=== PATIENT | female | born 1990 | race Caucasian/White ===

== ENCOUNTER 2021-03-29 16:45 | Emergency (ER) | payer OTHER ==
--- OUTSIDE RECORDS SUMMARY | 2021-03-29 16:50 | XMS REPORT | Continuity of Care Document ---
:[address] [facility] t Address [address] [place] [address] Care Team Providers Name Role Phone Peguero Attending Clinician Unavailable Physician, Primary or Family Admitting Clinician Unavailabl e Payers Payer Name Policy Type Policy Number Effective Date Expiration Date S ource Problems This patient has no known problems. Allergies, Adverse Reactions, Alerts Allergy Allergy Status Severity Reaction(s) Onset Inactive Treating Comm ents Source Name Type Date Date Clinician No Known DA Active U [facility]- [facility] No Known DA Active U [facility] - [facility] No Known DA Active [facility] 5[facility]16 [facility] scopolam DA Active MT 0 [facility] ine 4-10 [facility] scopolam DA Active MT RASH-HIVES [facility] ine 4-10 [facility] No Known DA Active U 2020-0 [facility] Allergie 6-20 [facility] No Known DA Active U [facility] 6[facility]20 [facility] No Known DA Active [facility] -15 [facility] No Known DA Active U NONE [facility] 10-24 [facility] Medications This patient has no known medications. Procedures This patient has no known procedures. Encounters Start End Encounter Admission Attending Care Care Encounter Source Date/Time Date/Time Type Type Clinicians Facility Department ID 2020-06-24 Inpatient [facility] ER [id number] [facility] 15:27:00 [id number] [facility] 2020-05-19 Inpatient [facility] ER [id number] [facility] 11:27:00 [id number] [facility] 2019-07-30 Inpatient [facility] [id number] [facility] 21:08:00 [id number] [facility] 2021-02-09 2021-02-10 Emergency EM Peguero, [facility] ER [id number] [facility] 23:10:00 00:19:00 Kaelyn [id number] [facility] 2021-02-09 2021-02-09 Emergency EM Peguero, HCARG HC[facility] [id number] [facility] 23:10:00 23:10:00 Kaelyn 49 [facility] Results Test Description Test Time Test Comments Results Result Comments Source COMPREHENSIVE METABOLIC PANEL 2020-06-24 16:11:00 Test Item Value Reference Range Interpretation Comme nts SODIUM (test code = NA) 138 mmol/L 136-145 N POTASSIUM (test code = K) 3.7 mmol/L 3.5-5.1 N CHLORIDE (test code = CL) 100 mmol/L 98-107 N CARBON DIOXIDE (test code = 27 mmol/L 21-32 N CO2) GLUCOSE (test code = GLU) 69 mg/dL 70-100 L BLOOD UREA NITROGEN (test code 9 mg/dL 7-18 N = BUN) GLOMERULAR FILTRATION RATE > 60.00 See_Comment R eporting units: (test code = GFR) mL/min/1.7 3m\S\2 (Modified MDRD formula)RE FERENCE RANGE: > or = 60 ml/mi n/1.73M2IF PATIENT IS AFRI CAN-MAURITIAN, MULTIPLY REPORT ED RESULT BY1.21. [Automa ashley message] The system [employer] generated this result tra nsmitted reference range : >=60. The reference range was not used to interpret th is result as normal/abnormal . CREATININE (test code = CREAT) 0.76 mg/dl 0.55-1.02 N TOTAL PROTEIN (test code = 7.8 g/dl 6.4-8.2 N PROT) ALBUMIN (test code = ALB) 3.7 g/dl 3.4-5.0 N CALCIUM (test code = CA) 9.3 mg/dL 8.5-10.1 N BILIRUBIN TOTAL (test code = 0.8 mg/dL 0.2-1.0 N BILT) SGOT/AST (test code = AST) 38 U/L 15-37 H SGPT/ALT (test code = ALT) 54 U/L 12-78 N ALKALINE PHOSPHATASE TOTAL 139 U/L 45-117 H (test code = ALKP) [id number] 16:11:00 Test Item Value Reference Range Interpretation Comments LIPASE (test code = LIP) 108 U/L 73-393 N URINALYSIS W REFLEX [id number] 16:05:00 Test Item Value Reference Range Interpretation Comments UA COLOR (test code = COLU) YELLOW YELLOW UA APPEARANCE (test code = CLEAR CLEAR APPU) UA GLUCOSE DIPSTICK (test code NEGATIVE mg/dl NORMAL = DGLUU) UA BILIRUBIN DIPSTICK (test NEGATIVE mg/dl NEGATIVE code = BILU) UA KETONE DIPSTICK (test code NEGATIVE mg/dl NEGATIVE = KETU) UA SPECIFIC GRAVITY (test code 1.020 1.001-1.035 N = SGU) UA BLOOD DIPSTICK (test code = SMALL /UL NEGATIVE NISSA) UA PH DIPSTICK (test code = 7.0 4.6-8.0 EMILY) UA PROTEIN DIPSTICK (test code NEGATIVE mg/dl NEGATIVE = PROU) UA UROBILINIOGEN DIPSTICK 0.2 mg/dl NORMAL (test code = URO) UA NITRITE DIPSTICK (test code NEGATIVE NEGATIVE = DEMETRIUS) UA LEUKOCYTE ESTERASE DIPSTICK NEGATIVE /UL NEGATIVE (test code = LEUU) UA COMMENT (test code = COMU) CLN CATCH UA MICROSCOPIC NEEDED? (test Y= DO UA MICRO code = UAMICRO) UR HCG [id number] 16:05:00 Test Item Value Reference Range Interpretation Comments UR HCG QUAL (test code = HCGQLU) NEGATIVE NEGATIVE URINALYSIS W REFLEX [id number] 16:05:00 Test Item Value Reference Range Interpretation Comments UA COLOR (test code = COLU) YELLOW YELLOW UA APPEARANCE (test code = CLEAR CLEAR APPU) UA GLUCOSE DIPSTICK (test code NEGATIVE mg/dl NORMAL = DGLUU) UA BILIRUBIN DIPSTICK (test NEGATIVE mg/dl NEGATIVE code = BILU) UA KETONE DIPSTICK (test code NEGATIVE mg/dl NEGATIVE = KETU) UA SPECIFIC GRAVITY (test code 1.020 1.001-1.035 N = SGU) UA BLOOD DIPSTICK (test code = SMALL /UL NEGATIVE NISSA) UA PH DIPSTICK (test code = 7.0 4.6-8.0 EMILY) UA PROTEIN DIPSTICK (test code NEGATIVE mg/dl NEGATIVE = PROU) UA UROBILINIOGEN DIPSTICK 0.2 mg/dl NORMAL (test code = URO) UA NITRITE DIPSTICK (test code NEGATIVE NEGATIVE = DEMETRIUS) UA LEUKOCYTE ESTERASE DIPSTICK NEGATIVE /UL NEGATIVE (test code = LEUU) UA COMMENT (test code = COMU) CLN CATCH UA MICROSCOPIC NEEDED? (test Y= DO UA MICRO code = UAMICRO) UA [id number] 16:05:00 Test Item Value Reference Range Interpretation Comments UA WBC (test code = WBCU) 0-2 #/hpf 0-5 UA RBC (test code = RBCU) 0-2 #/hpf 0-5 UA EPITHELIAL CELLS (test code = 2+ /hpf NEG,FEW A EPIU) UA BACTERIA (test code = BACU) FEW /hpf NEGATIVE A UA AMORPHOUS SEDIMENT (test code = FEW /hpf NEG,FEW AMORU) UR HCG [id number] 16:05:00 Test Item Value Reference Range Interpretation Comments UR HCG QUAL (test code = HCGQLU) NEGATIVE NEGATIVE URINALYSIS W REFLEX [id number] 16:05:00 Test Item Value Reference Range Interpretation Comments UA COLOR (test code = COLU) YELLOW YELLOW UA APPEARANCE (test code = CLEAR CLEAR APPU) UA GLUCOSE DIPSTICK (test code NEGATIVE mg/dl NORMAL = DGLUU) UA BILIRUBIN DIPSTICK (test NEGATIVE mg/dl NEGATIVE code = BILU) UA KETONE DIPSTICK (test code NEGATIVE mg/dl NEGATIVE = KETU) UA SPECIFIC GRAVITY (test code 1.020 1.001-1.035 N = SGU) UA BLOOD DIPSTICK (test code = SMALL /UL NEGATIVE NISSA) UA PH DIPSTICK (test code = 7.0 4.6-8.0 EMILY) UA PROTEIN DIPSTICK (test code NEGATIVE mg/dl NEGATIVE = PROU) UA UROBILINIOGEN DIPSTICK 0.2 mg/dl NORMAL (test code = URO) UA NITRITE DIPSTICK (test code NEGATIVE NEGATIVE = DEMETRIUS) UA LEUKOCYTE ESTERASE DIPSTICK NEGATIVE /UL NEGATIVE (test code = LEUU) UA COMMENT (test code = COMU) CLN CATCH UA MICROSCOPIC NEEDED? (test Y= DO UA MICRO code = UAMICRO) UR HCG [id number] 16:05:00 Test Item Value Reference Range Interpretation Comments UR HCG QUAL (test code = HCGQLU) NEGATIVE NEGATIVE DRUGS OF ABUSE [id number] 16:01:00 Test Item Value Reference Range Interpretation Comments UR COCAINE (test code NEGATIVE ng/ml NEGATIVE = COCAU) UR CANNABINOIDS (test POSITIVE ng/ml NEGATIVE A DALY UE EXCEEDS code = CANU) CRITICAL LEVEL. CRITICAL VALUE CALLEDTO AND CRITICAL VALUE READ BACK BY HUBER DOWNING RN 1603 06/24/20. Chas Dixon POSITIVE URINE DRUG SCREEN CAMILA T RESULTS ARE UNCONFIRMED.REF ERR ED CONFIRMATORY TESTING AVAILAB LE UPON PHYSICIANREQUES T. UR AMPHETAMINE (test NEGATIVE ng/dl NEGATIVE code = AMPHU) UR BARBITURATE (test NEGATIVE ng/ml NEGATIVE code = BARBU) UR BENZODIAZEPINE NEGATIVE ng/ml NEGATIVE (test code = BENZU) UR OPIATES QUAL (test NEGATIVE ng/ml NEGATIVE code = OPIAQLU) UR PHENCYCLIDINE NEGATIVE ng/ml NEGATIVE THE URINE SPECIMEN (PCP) (test code = WAS TESTE D AT THE [facility]) LISTED CUTOFFS DRUG CLASS INITIAL TEST LEVEL AMPHETAMI YOSELIN 1000 NG/MLBARBITURAT ES 200 NG/MLBENZODIAZE PIN ES 200 NG/MLCOCAINE METABOLITE 300 NG/MLMARIJUANA METABOLITE 5 0 NG/MLOPIATES 300 NG/MLPHENCYCLID INE 25 NG /ML URINALYSIS W REFLEX [id number] 15:58:00 Test Item Value Reference Range Interpretation Comments UA COLOR (test code = COLU) YELLOW UA APPEARANCE (test code = APPU) CLEAR UA GLUCOSE DIPSTICK (test code = mg/dl NORMAL DGLUU) UA BILIRUBIN DIPSTICK (test code = mg/dl NEGATIVE BILU) UA KETONE DIPSTICK (test code = KETU) mg/dl NEGATIVE UA SPECIFIC GRAVITY (test code = SGU) 1.001-1.035 UA BLOOD DIPSTICK (test code = NISSA) /UL NEGATIVE UA PH DIPSTICK (test code = EMILY) 4.6-8.0 UA PROTEIN DIPSTICK (test code = PROU) mg/dl NEGATIVE UA UROBILINIOGEN DIPSTICK (test code = mg/dl NORMAL URO) UA NITRITE DIPSTICK (test code = DEMETRIUS) NEGATIVE UA LEUKOCYTE ESTERASE DIPSTICK (test /UL NEGATIVE code = LEUU) UA COMMENT (test code = COMU) UA MICROSCOPIC NEEDED? (test code = UAMICRO) UR HCG [id number] 15:58:00 Test Item Value Reference Range Interpretation Comments UR HCG QUAL (test code = HCGQLU) NEGATIVE NEGATIVE CBC W/AUTO [id number] 15:52:00 Test Item Value Reference Range Interpretation Comments WHITE BLOOD CELL (test code = 3.8 X10(3) 4.5-11.0 L WBC) RED BLOOD CELL (test code = 4.85 X10(6) 4.2-5.4 N RBC) HEMOGLOBIN (test code = HGB) 13.7 g/dL 12.5-16.0 N HEMATOCRIT (test code = HCT) 42.1 % 37.0-47.0 N MEAN CELL VOLUME (test code = 86.8 fL 78-100 N MCV) MEAN CELL HGB (test code = MCH) 28.2 pg 26.0-34.0 N MEAN CELL HGB CONCETRATION 32.5 g/dl 30.0-37.0 N (test code = MCHC) RED CELL DISTRIBUTION WIDTH 13.3 % 11.5-14.5 N (test code = RDW) PLATELET COUNT (test code = 241 X10(3) 150-350 N PLT) MEAN PLATELET VOLUME (test code 11.7 fl 8.7-11.4 H = MPV) NEUTROPHIL % (test code = NT%) 36.7 % 36.0-66.0 N IMMATURE GRANULOCYTE % (test 0.3 % 0.0-2.0 N code = IG%) LYMPHOCYTE % (test code = LY%) 48.2 % 16-50 N MONOCYTE % (test code = MO%) 13.0 % 0.0-13.0 N EOSINOPHIL % (test code = EO%) 0.8 % 0.0-4.5 N BASOPHIL % (test code = BA%) 1.0 % 0.0-1.5 N NEUTROPHIL # (test code = NT#) 1.4 X10(3) 1.7-7.7 L IMMATURE GRANULOCYTE # (test 0.01 X10(3)uL 0.00-0.03 N code = IG#) LYMPHOCYTE # (test code = LY#) 1.9 X10(3) 1.0-4.8 N MONOCYTE # (test code = MO#) 0.5 X10(3) 0.0-0.89 N EOSINOPHIL # (test code = EO#) 0.0 X10(3) 0.0-0.6 N BASOPHIL # (test code = BA#) 0.0 X10(3) 0.0-0.2 N RBC MORPHOLOGY REQUIRED (test NO NORMAL code = RBCM) URINALYSIS W REFLEX [id number] 13:00:00 Test Item Value Reference Range Interpretation Comments UA COLOR (test code = COLU) DK YELLOW YELLOW UA APPEARANCE (test code = SL HAZY CLEAR APPU) UA GLUCOSE DIPSTICK (test code NEGATIVE mg/dl NORMAL = DGLUU) UA BILIRUBIN DIPSTICK (test LARGE mg/dl NEGATIVE code = BILU) UA KETONE DIPSTICK (test code 80 mg/dl NEGATIVE A = KETU) UA SPECIFIC GRAVITY (test code >= 1.030 1.001-1.035 N = SGU) UA BLOOD DIPSTICK (test code = TRACE /UL NEGATIVE NISSA) UA PH DIPSTICK (test code = 6.0 4.6-8.0 EMILY) UA PROTEIN DIPSTICK (test code 100 mg/dl NEGATIVE A = PROU) UA UROBILINIOGEN DIPSTICK 1.0 mg/dl NORMAL (test code = URO) UA NITRITE DIPSTICK (test code NEGATIVE NEGATIVE = DEMETRIUS) UA LEUKOCYTE ESTERASE DIPSTICK NEGATIVE /UL NEGATIVE (test code = LEUU) UA COMMENT (test code = COMU) CLN CATCH UA MICROSCOPIC NEEDED? (test Y= DO UA MICRO code = UAMICRO) UA ICTOTEST FOR [id number] 13:00:00 Test Item Value Reference Range Interpretation Comments UA ICTOTEST FOR BILIRUBIN (test code POSITIVE NEGATIVE A = ICTOU) UA [id number] 13:00:00 Test Item Value Reference Range Interpretation Comments UA WBC (test code = WBCU) 0-2 #/hpf 0-5 UA RBC (test code = RBCU) 3-5 #/hpf 0-5 UA EPITHELIAL CELLS (test code = FEW /hpf NEG,FEW EPIU) UA BACTERIA (test code = BACU) FEW /hpf NEGATIVE A UA MUCUS (test code = MUCU) 1+ /hpf NEG,FEW A UR HCG [id number] 13:00:00 Test Item Value Reference Range Interpretation Comments UR HCG QUAL (test code = HCGQLU) NEGATIVE NEGATIVE DRUGS OF ABUSE [id number] 12:57:00 Test Item Value Reference Range Interpretation Comments UR COCAINE (test code NEGATIVE ng/ml NEGATIVE = COCAU) UR CANNABINOIDS (test POSITIVE ng/ml NEGATIVE A VALU E EXCEEDS code = CANU) CRITICAL LEVEL. CRITICAL VALUE CALLEDTO AND CRITICAL VALUE READ BACK BY NAIN HILTON RN 1257 05/19/20. Ruben Tena POSITIVE URINE DRUG SCREEN CAMILA T RESULTS ARE UNCONFIRMED.REF ERR ED CONFIRMATORY TESTING AVAILAB LE UPON PHYSICIANREQUES T. UR AMPHETAMINE (test NEGATIVE ng/dl NEGATIVE code = AMPHU) UR BARBITURATE (test NEGATIVE ng/ml NEGATIVE code = BARBU) UR BENZODIAZEPINE NEGATIVE ng/ml NEGATIVE (test code = BENZU) UR OPIATES QUAL (test NEGATIVE ng/ml NEGATIVE code = OPIAQLU) UR PHENCYCLIDINE NEGATIVE ng/ml NEGATIVE THE URINE SPECIMEN (PCP) (test code = WAS TESTE D AT THE [facility]) LISTED CUTOFFS DRUG CLASS INITIAL TEST LEVEL AMPHETAMI YOSELIN 1000 NG/MLBARBITURAT ES 200 NG/MLBENZODIAZE PIN ES 200 NG/MLCOCAINE METABOLITE 300 NG/MLMARIJUANA METABOLITE 5 0 NG/MLOPIATES 300 NG/MLPHENCYCLID INE 25 NG /ML URINALYSIS W REFLEX [id number] 12:56:00 Test Item Value Reference Range Interpretation Comments UA COLOR (test code = COLU) DK YELLOW YELLOW UA APPEARANCE (test code = SL HAZY CLEAR APPU) UA GLUCOSE DIPSTICK (test code NEGATIVE mg/dl NORMAL = DGLUU) UA BILIRUBIN DIPSTICK (test LARGE mg/dl NEGATIVE code = BILU) UA KETONE DIPSTICK (test code 80 mg/dl NEGATIVE A = KETU) UA SPECIFIC GRAVITY (test code >= 1.030 1.001-1.035 N = SGU) UA BLOOD DIPSTICK (test code = TRACE /UL NEGATIVE NISSA) UA PH DIPSTICK (test code = 6.0 4.6-8.0 EMILY) UA PROTEIN DIPSTICK (test code 100 mg/dl NEGATIVE A = PROU) UA UROBILINIOGEN DIPSTICK 1.0 mg/dl NORMAL (test code = URO) UA NITRITE DIPSTICK (test code NEGATIVE NEGATIVE = DEMETRIUS) UA LEUKOCYTE ESTERASE DIPSTICK NEGATIVE /UL NEGATIVE (test code = LEUU) UA COMMENT (test code = COMU) CLN CATCH UA MICROSCOPIC NEEDED? (test Y= DO UA MICRO code = UAMICRO) UA ICTOTEST FOR [id number] 12:56:00 Test Item Value Reference Range Interpretation Comments UA ICTOTEST FOR BILIRUBIN (test code POSITIVE NEGATIVE A = ICTOU) UR HCG [id number] 12:56:00 Test Item Value Reference Range Interpretation Comments UR HCG QUAL (test code = HCGQLU) NEGATIVE NEGATIVE URINALYSIS W REFLEX [id number] 12:53:00 Test Item Value Reference Range Interpretation Comments UA COLOR (test code = COLU) DK YELLOW YELLOW UA APPEARANCE (test code = SL HAZY CLEAR APPU) UA GLUCOSE DIPSTICK (test code NEGATIVE mg/dl NORMAL = DGLUU) UA BILIRUBIN DIPSTICK (test LARGE mg/dl NEGATIVE code = BILU) UA KETONE DIPSTICK (test code 80 mg/dl NEGATIVE A = KETU) UA SPECIFIC GRAVITY (test code >= 1.030 1.001-1.035 N = SGU) UA BLOOD DIPSTICK (test code = TRACE /UL NEGATIVE NISSA) UA PH DIPSTICK (test code = 6.0 4.6-8.0 EMILY) UA PROTEIN DIPSTICK (test code 100 mg/dl NEGATIVE A = PROU) UA UROBILINIOGEN DIPSTICK 1.0 mg/dl NORMAL (test code = URO) UA NITRITE DIPSTICK (test code NEGATIVE NEGATIVE = DEMETRIUS) UA LEUKOCYTE ESTERASE DIPSTICK NEGATIVE /UL NEGATIVE (test code = LEUU) UA COMMENT (test code = COMU) CLN CATCH UA MICROSCOPIC NEEDED? (test Y= DO UA MICRO code = UAMICRO) UR HCG [id number] 12:53:00 Test Item Value Reference Range Interpretation Comments UR HCG QUAL (test code = HCGQLU) NEGATIVE NEGATIVE URINALYSIS W REFLEX [id number] 12:53:00 Test Item Value Reference Range Interpretation Comments UA COLOR (test code = COLU) DK YELLOW YELLOW UA APPEARANCE (test code = SL HAZY CLEAR APPU) UA GLUCOSE DIPSTICK (test code NEGATIVE mg/dl NORMAL = DGLUU) UA BILIRUBIN DIPSTICK (test LARGE mg/dl NEGATIVE code = BILU) UA KETONE DIPSTICK (test code 80 mg/dl NEGATIVE A = KETU) UA SPECIFIC GRAVITY (test code >= 1.030 1.001-1.035 N = SGU) UA BLOOD DIPSTICK (test code = TRACE /UL NEGATIVE NISSA) UA PH DIPSTICK (test code = 6.0 4.6-8.0 EMILY) UA PROTEIN DIPSTICK (test code 100 mg/dl NEGATIVE A = PROU) UA UROBILINIOGEN DIPSTICK 1.0 mg/dl NORMAL (test code = URO) UA NITRITE DIPSTICK (test code NEGATIVE NEGATIVE = DEMETRIUS) UA LEUKOCYTE ESTERASE DIPSTICK NEGATIVE /UL NEGATIVE (test code = LEUU) UA COMMENT (test code = COMU) CLN CATCH UA MICROSCOPIC NEEDED? (test Y= DO UA MICRO code = UAMICRO) UR HCG [id number] 12:53:00 Test Item Value Reference Range Interpretation Comments UR HCG QUAL (test code = HCGQLU) NEGATIVE NEGATIVE - XR ABDOMEN [id number] 12:16:00 [facility] 1990 Sex: F FAX: [facility] [place]: St: PRE Name: BREANNA QUEEN Oj FSED : 1990 Age/S: 30/F [address] Unit #: [id number] Loc: [place] [address] Phys: Genesis Centeno MD Acct: [id number] Dis Date: Status: PRE ER PHONE #: Exam Date: 05/19/2020 1212 FAX #: Reason: abdominal pain EXAMS: CPT CODE: [id number] XR ABDOMEN 2V [id number] - XR ABDOMEN 2V PROVIDED REASON FOR EXAM: abdominal pain COMPARISON: None available. FINDINGS: Bowel gas pattern is non- obstructive. No abnormal calcifications or soft tissue masses. No acute fracture or subluxation. Regional soft tissues are unremarkable. Surgical clips of the right upper abdomen. Relative paucity of bowel gas. IMPRESSION: No acute process. Location: V20 at 1216 Reported and signed by: DEVANTE CABALLERO M.D. CC: Technologist: Milan Ayala [facility] Date/Time/By: 05/19/2020 (1216) : By: [email or web address] Orig Print D/T: S: 05/19/2020 (3917) PAGE 1 Signed ReportBASIC METABOLIC [id number] 12:08:00 Test Item Value Reference Range Interpretation Comments SODIUM (test code = 137 mmol/L 136-145 N NA) POTASSIUM (test code 4.0 mmol/L 3.5-5.1 N = K) CHLORIDE (test code = 100 mmol/L 98-107 N CL) CARBON DIOXIDE (test 21 mmol/L 21-32 N code = CO2) GLUCOSE (test code = 109 mg/dL 70-100 H GLU) BLOOD UREA NITROGEN 14 mg/dL 7-18 N (test code = BUN) GLOMERULAR FILTRATION > 60.00 See_Comment Report ing units: RATE (test code = mL/min/1.7 3m\S\2 GFR) (Modified MDRD formula)REFEREN CE RANGE: > or = 6 0 ml/min/1.73M2IF PATIENT IS -JAYSON N, MULTIPLY REPORT ED RESULT BY1. [Automated mess age] The system [employer] generated this result transmitted ref erence range: >=60. Th e reference range was not used to int erpret this result as normal/abnormal . CREATININE (test code 0.64 mg/dl 0.55-1.02 N = CREAT) CALCIUM (test code = 9.8 mg/dL 8.5-10.1 N CA) LIVER [id number] 12:08:00 Test Item Value Reference Range Interpretation Comments TOTAL PROTEIN (test code = PROT) 8.1 g/dl 6.4-8.2 N ALBUMIN (test code = ALB) 3.6 g/dl 3.4-5.0 N BILIRUBIN TOTAL (test code = BILT) 0.8 mg/dL 0.2-1.0 N BILIRUBIN DIRECT (test code = 0.21 mg/dl 0.0-0.2 H BILD) SGOT/AST (test code = AST) 25 U/L 15-37 N SGPT/ALT (test code = ALT) 35 U/L 12-78 N ALKALINE PHOSPHATASE TOTAL (test 119 U/L 45-117 H code = ALKP) [id number] 12:08:00 Test Item Value Reference Range Interpretation Comments LIPASE (test code = LIP) 67 U/L 73-393 L CBC W/AUTO [id number] 11:43:00 Test Item Value Reference Range Interpretation Comments WHITE BLOOD CELL (test code = 10.3 X10(3) 4.5-11.0 N WBC) RED BLOOD CELL (test code = 4.55 X10(6) 4.2-5.4 N RBC) HEMOGLOBIN (test code = HGB) 13.0 g/dL 12.5-16.0 N HEMATOCRIT (test code = HCT) 40.3 % 37.0-47.0 N MEAN CELL VOLUME (test code = 88.6 fL 78-100 N MCV) MEAN CELL HGB (test code = MCH) 28.6 pg 26.0-34.0 N MEAN CELL HGB CONCETRATION 32.3 g/dl 30.0-37.0 N (test code = MCHC) RED CELL DISTRIBUTION WIDTH 13.5 % 11.5-14.5 N (test code = RDW) PLATELET COUNT (test code = 256 X10(3) 150-350 N PLT) MEAN PLATELET VOLUME (test code 11.5 fl 8.7-11.4 H = MPV) NEUTROPHIL % (test code = NT%) 86.0 % 36.0-66.0 H IMMATURE GRANULOCYTE % (test 0.1 % 0.0-2.0 N code = IG%) LYMPHOCYTE % (test code = LY%) 9.5 % 16-50 L MONOCYTE % (test code = MO%) 4.3 % 0.0-13.0 N EOSINOPHIL % (test code = EO%) 0.0 % 0.0-4.5 N BASOPHIL % (test code = BA%) 0.1 % 0.0-1.5 N NEUTROPHIL # (test code = NT#) 8.8 X10(3) 1.7-7.7 H IMMATURE GRANULOCYTE # (test 0.01 X10(3)uL 0.00-0.03 N code = IG#) LYMPHOCYTE # (test code = LY#) 1.0 X10(3) 1.0-4.8 N MONOCYTE # (test code = MO#) 0.4 X10(3) 0.0-0.89 N EOSINOPHIL # (test code = EO#) 0.0 X10(3) 0.0-0.6 N BASOPHIL # (test code = BA#) 0.0 X10(3) 0.0-0.2 N RBC MORPHOLOGY REQUIRED (test NO NORMAL code = RBCM) URINALYSIS W REFLEX [id number] 22:06:00 Test Item Value Reference Range Interpretation Comments UA COLOR (test code = COLU) YELLOW YELLOW UA APPEARANCE (test code = CLEAR CLEAR APPU) UA GLUCOSE DIPSTICK (test code NORMAL mg/dl NORMAL = DGLUU) UA BILIRUBIN DIPSTICK (test NEGATIVE mg/dl NEGATIVE code = BILU) UA KETONE DIPSTICK (test code 60 mg/dl NEGATIVE = KETU) UA SPECIFIC GRAVITY (test code 1.017 1.001-1.035 N = SGU) UA BLOOD DIPSTICK (test code = TRACE /UL NEGATIVE NISSA) UA PH DIPSTICK (test code = 6.0 4.6-8.0 EMILY) UA PROTEIN DIPSTICK (test code 10 mg/dl NEGATIVE A = PROU) UA UROBILINIOGEN DIPSTICK NORMAL mg/dl NORMAL (test code = URO) UA NITRITE DIPSTICK (test code NEGATIVE NEGATIVE = DEMETRIUS) UA LEUKOCYTE ESTERASE DIPSTICK NEGATIVE /UL NEGATIVE (test code = LEUU) UA COMMENT (test code = COMU) CLN CATCH UA WBC (test code = WBCU) 3-5 #/hpf 0-5 UA RBC (test code = RBCU) 3-5 #/hpf 0-5 UA EPITHELIAL CELLS (test code 3+ /hpf NEG,FEW A = EPIU) UA BACTERIA (test code = BACU) FEW /hpf NEGATIVE A UA MUCUS (test code = MUCU) 2+ /hpf NEG,FEW A BASIC METABOLIC [id number] 21:54:00 Test Item Value Reference Range Interpretation Comments SODIUM (test code = 136 mmol/L 136-145 N NA) POTASSIUM (test code = 3.4 mmol/L 3.5-5.1 L K) CHLORIDE (test code = 104 mmol/L 98-107 N CL) CARBON DIOXIDE (test 24 mmol/L 21-32 N code = CO2) GLUCOSE (test code = 125 mg/dL 70-100 H GLU) BLOOD UREA NITROGEN 9 mg/dL 7-18 N (test code = BUN) GLOMERULAR FILTRATION > 60.00 >=60 Report ing units: RATE (test code = GFR) mL/mi n/1.73m\S\2 (Modified MDRD formula)REFEREN CE RANGE: > or = 6 0 ml/min/1.73M2IF PATIENT IS -JAYSON N, MULTIPLY REPORT ED RESULT [email or web address]. CREATININE (test code 0.70 mg/dL 0.51-0.95 N = CREAT) CALCIUM (test code = 9.3 mg/dL 8.5-10.1 N CA) LIVER [id number] 21:54:00 Test Item Value Reference Range Interpretation Comments TOTAL PROTEIN (test code = PROT) 7.8 g/dl 6.4-8.2 N ALBUMIN (test code = ALB) 3.7 g/dl 3.4-5.0 N BILIRUBIN TOTAL (test code = BILT) 1.2 mg/dl 0.2-1.0 H BILIRUBIN DIRECT (test code = 0.34 mg/dl 0.0-0.4 N BILD) SGOT/AST (test code = AST) 21 U/L 15-37 N SGPT/ALT (test code = ALT) 29 U/L 12-78 N ALKALINE PHOSPHATASE TOTAL (test 69 U/L 50-136 N code = ALKP) [id number] 21:54:00 Test Item Value Reference Range Interpretation Comments LIPASE (test code = LIP) 63 U/L 73-393 L BASIC METABOLIC [id number] 21:53:00 Test Item Value Reference Range Interpretation Comments SODIUM (test code = 136 mmol/L 136-145 N NA) POTASSIUM (test code = 3.4 mmol/L 3.5-5.1 L K) CHLORIDE (test code = 104 mmol/L 98-107 N CL) CARBON DIOXIDE (test 24 mmol/L 21-32 N code = CO2) GLUCOSE (test code = 125 mg/dL 70-100 H GLU) BLOOD UREA NITROGEN 9 mg/dL 7-18 N (test code = BUN) GLOMERULAR FILTRATION > 60.00 >=60 Report ing units: RATE (test code = GFR) mL/mi n/1.73m\S\2 (Modified MDRD formula)REFEREN CE RANGE: > or = 6 0 ml/min/1.73M2IF PATIENT IS -JAYSON N, MULTIPLY REPORT ED RESULT [id number]. CREATININE (test code 0.70 mg/dL 0.51-0.95 N = CREAT) CALCIUM (test code = 9.3 mg/dL 8.5-10.1 N CA) LIVER [id number] 21:53:00 Test Item Value Reference Range Interpretation Comments TOTAL PROTEIN (test code = PROT) 7.8 g/dl 6.4-8.2 N ALBUMIN (test code = ALB) 3.7 g/dl 3.4-5.0 N BILIRUBIN TOTAL (test code = BILT) 1.2 mg/dl 0.2-1.0 H BILIRUBIN DIRECT (test code = 0.34 mg/dl 0.0-0.4 N BILD) SGOT/AST (test code = AST) 21 U/L 15-37 N SGPT/ALT (test code = ALT) 29 U/L 12-78 N ALKALINE PHOSPHATASE TOTAL (test U/L 50-136 code = ALKP) [id number] 21:53:00 Test Item Value Reference Range Interpretation Comments LIPASE (test code = LIP) 63 U/L 73-393 L BASIC METABOLIC [id number] 21:52:00 Test Item Value Reference Range Interpretation Comments SODIUM (test code = 136 mmol/L 136-145 N NA) POTASSIUM (test code = 3.4 mmol/L 3.5-5.1 L K) CHLORIDE (test code = 104 mmol/L 98-107 N CL) CARBON DIOXIDE (test 24 mmol/L 21-32 N code = CO2) GLUCOSE (test code = 125 mg/dL 70-100 H GLU) BLOOD UREA NITROGEN 9 mg/dL 7-18 N (test code = BUN) GLOMERULAR FILTRATION > 60.00 >=60 Report ing units: RATE (test code = GFR) mL/mi n/1.73m\S\2 (Modified MDRD formula)REFEREN CE RANGE: > or = 6 0 ml/min/1.73M2IF PATIENT IS -JAYSON N, MULTIPLY REPORT ED RESULT BY1.21. CREATININE (test code 0.70 mg/dL 0.51-0.95 N = CREAT) CALCIUM (test code = 9.3 mg/dL 8.5-10.1 N CA) LIVER [id number] 21:52:00 Test Item Value Reference Range Interpretation Comments TOTAL PROTEIN (test code = PROT) g/dl 6.4-8.2 ALBUMIN (test code = ALB) 3.7 g/dl 3.4-5.0 N BILIRUBIN TOTAL (test code = BILT) mg/dl 0.2-1.0 BILIRUBIN DIRECT (test code = 0.34 mg/dl 0.0-0.4 N BILD) SGOT/AST (test code = AST) 21 U/L 15-37 N SGPT/ALT (test code = ALT) 29 U/L 12-78 N ALKALINE PHOSPHATASE TOTAL (test U/L 50-136 code = ALKP) [id number] 21:52:00 Test Item Value Reference Range Interpretation Comments LIPASE (test code = LIP) 63 U/L 73-393 L BASIC METABOLIC [id number] 21:51:00 Test Item Value Reference Range Interpretation Comments SODIUM (test code = 136 mmol/L 136-145 N NA) POTASSIUM (test code = 3.4 mmol/L 3.5-5.1 L K) CHLORIDE (test code = 104 mmol/L 98-107 N CL) CARBON DIOXIDE (test 24 mmol/L 21-32 N code = CO2) GLUCOSE (test code = 125 mg/dL 70-100 H GLU) BLOOD UREA NITROGEN 9 mg/dL 7-18 N (test code = BUN) GLOMERULAR FILTRATION > 60.00 >=60 Report ing units: RATE (test code = GFR) mL/mi n/1.73m\S\2 (Modified MDRD formula)REFEREN CE RANGE: > or = 6 0 ml/min/1.73M2IF PATIENT IS -JAYSON N, MULTIPLY REPORT ED RESULT BY1.21. CREATININE (test code 0.70 mg/dL 0.51-0.95 N = CREAT) CALCIUM (test code = 9.3 mg/dL 8.5-10.1 N CA) LIVER [id number] 21:51:00 Test Item Value Reference Range Interpretation Comments TOTAL PROTEIN (test code = PROT) g/dl 6.4-8.2 ALBUMIN (test code = ALB) 3.7 g/dl 3.4-5.0 N BILIRUBIN TOTAL (test code = BILT) mg/dl 0.2-1.0 BILIRUBIN DIRECT (test code = 0.34 mg/dl 0.0-0.4 N BILD) SGOT/AST (test code = AST) U/L 15-37 SGPT/ALT (test code = ALT) U/L 12-78 ALKALINE PHOSPHATASE TOTAL (test U/L 50-136 code = ALKP) [id number] 21:51:00 Test Item Value Reference Range Interpretation Comments LIPASE (test code = LIP) 63 U/L 73-393 L BASIC METABOLIC [id number] 21:49:00 Test Item Value Reference Range Interpretation Comments SODIUM (test code = NA) 136 mmol/L 136-145 N POTASSIUM (test code = K) 3.4 mmol/L 3.5-5.1 L CHLORIDE (test code = CL) 104 mmol/L 98-107 N CARBON DIOXIDE (test code = CO2) 24 mmol/L 21-32 N GLUCOSE (test code = GLU) 125 mg/dL 70-100 H BLOOD UREA NITROGEN (test code = 9 mg/dL 7-18 N BUN) GLOMERULAR FILTRATION RATE (test >=60 code = GFR) CREATININE (test code = CREAT) mg/dL 0.51-0.95 CALCIUM (test code = CA) 9.3 mg/dL 8.5-10.1 N LIVER [id number] 21:49:00 Test Item Value Reference Range Interpretation Comments TOTAL PROTEIN (test code = PROT) g/dl 6.4-8.2 ALBUMIN (test code = ALB) 3.7 g/dl 3.4-5.0 N BILIRUBIN TOTAL (test code = BILT) mg/dl 0.2-1.0 BILIRUBIN DIRECT (test code = BILD) mg/dl 0.0-0.4 SGOT/AST (test code = AST) U/L 15-37 SGPT/ALT (test code = ALT) U/L 12-78 ALKALINE PHOSPHATASE TOTAL (test U/L 50-136 code = ALKP) [id number] 21:49:00 Test Item Value Reference Range Interpretation Comments LIPASE (test code = LIP) 63 U/L 73-393 L BASIC METABOLIC [id number] 21:48:00 Test Item Value Reference Range Interpretation Comments SODIUM (test code = NA) 136 mmol/L 136-145 N POTASSIUM (test code = K) 3.4 mmol/L 3.5-5.1 L CHLORIDE (test code = CL) 104 mmol/L 98-107 N CARBON DIOXIDE (test code = CO2) mmol/L 21-32 GLUCOSE (test code = GLU) mg/dL 70-100 BLOOD UREA NITROGEN (test code = mg/dL 7-18 BUN) GLOMERULAR FILTRATION RATE (test >=60 code = GFR) CREATININE (test code = CREAT) mg/dL 0.51-0.95 CALCIUM (test code = CA) 9.3 mg/dL 8.5-10.1 N LIVER [id number] 21:48:00 Test Item Value Reference Range Interpretation Comments TOTAL PROTEIN (test code = PROT) g/dl 6.4-8.2 ALBUMIN (test code = ALB) g/dl 3.4-5.0 BILIRUBIN TOTAL (test code = BILT) mg/dl 0.2-1.0 BILIRUBIN DIRECT (test code = BILD) mg/dl 0.0-0.4 SGOT/AST (test code = AST) U/L 15-37 SGPT/ALT (test code = ALT) U/L 12-78 ALKALINE PHOSPHATASE TOTAL (test code U/L 50-136 = ALKP) [id number] 21:48:00 Test Item Value Reference Range Interpretation Comments LIPASE (test code = LIP) U/L 73-393 BASIC METABOLIC [id number] 21:46:00 Test Item Value Reference Range Interpretation Comments SODIUM (test code = NA) 136 mmol/L 136-145 N POTASSIUM (test code = K) 3.4 mmol/L 3.5-5.1 L CHLORIDE (test code = CL) 104 mmol/L 98-107 N CARBON DIOXIDE (test code = CO2) mmol/L 21-32 GLUCOSE (test code = GLU) mg/dL 70-100 BLOOD UREA NITROGEN (test code = mg/dL 7-18 BUN) GLOMERULAR FILTRATION RATE (test >=60 code = GFR) CREATININE (test code = CREAT) mg/dL 0.51-0.95 CALCIUM (test code = CA) mg/dL 8.5-10.1 LIVER [id number] 21:46:00 Test Item Value Reference Range Interpretation Comments TOTAL PROTEIN (test code = PROT) g/dl 6.4-8.2 ALBUMIN (test code = ALB) g/dl 3.4-5.0 BILIRUBIN TOTAL (test code = BILT) mg/dl 0.2-1.0 BILIRUBIN DIRECT (test code = BILD) mg/dl 0.0-0.4 SGOT/AST (test code = AST) U/L 15-37 SGPT/ALT (test code = ALT) U/L 12-78 ALKALINE PHOSPHATASE TOTAL (test code U/L 50-136 = ALKP) [id number] 21:46:00 Test Item Value Reference Range Interpretation Comments LIPASE (test code = LIP) U/L 73-393 CBC W/AUTO [id number] 21:43:00 Test Item Value Reference Range Interpretation Comments WHITE BLOOD CELL (test code = 7.7 X10(3) 4.5-11.0 N WBC) RED BLOOD CELL (test code = 4.45 X10(6) 4.2-5.4 N RBC) HEMOGLOBIN (test code = HGB) 13.3 g/dL 12.5-16.0 N HEMATOCRIT (test code = HCT) 40.2 % 37.0-47.0 N MEAN CELL VOLUME (test code = 90.3 fl 78-100 N MCV) MEAN CELL HGB (test code = MCH) 29.9 pg 26.0-34.0 N MEAN CELL HGB CONCETRATION 33.1 g/dl 30.0-37.0 N (test code = MCHC) RED CELL DISTRIBUTION WIDTH 13.1 % 11.5-14.5 N (test code = RDW) PLATELET COUNT (test code = 192 X10(3) 150-350 N PLT) MEAN PLATELET VOLUME (test code 12.9 fl 8.7-11.4 H = MPV) NEUTROPHIL % (test code = NT%) 78.8 % 36.0-66.0 H IMMATURE GRANULOCYTE % (test 0.3 % 0.0-2.0 N code = IG%) LYMPHOCYTE % (test code = LY%) 15.3 % 16.0-50.0 L MONOCYTE % (test code = MO%) 5.2 % 0.0-13.0 N EOSINOPHIL % (test code = EO%) 0.1 % 0.0-4.5 N BASOPHIL % (test code = BA%) 0.3 % 0.0-1.5 N NUCLEATED RBC % (test code = 0.0 % 0-0.2 N NRBC%) NEUTROPHIL # (test code = NT#) 6.07 X10(3) 1.70-7.70 N IMMATURE GRANULOCYTE # (test 0.02 X10(3)uL 0.00-0.03 N code = IG#) LYMPHOCYTE # (test code = LY#) 1.18 X10(3) 0.70-4.00 N MONOCYTE # (test code = MO#) 0.40 X10(3) 0.00-0.89 N EOSINOPHIL # (test code = EO#) 0.01 X10(3) 0.00-0.60 N BASOPHIL # (test code = BA#) 0.02 X10(3) 0.00-0.20 N NUCLEATED RBC # (test code = 0.00 K/mm3 0.0-0.1 N NRBC#)
[2021-03-29] MEDS ORDERED: METOCLOPRAMIDE 10 MG/2mL INJ ONE (17:32)
[2021-03-29] MEDS ORDERED: MORPHINE 4 MG/ML SYR ONE (17:33)
[2021-03-29] MEDS ORDERED: PANTOPRAZOLE 40 MG INJ ONE (17:33)
[2021-03-29 17:41] LABS: Hematocrit 39.2 % (36.0-45.0); Lymphocytes % 14.9 % (15.3-44.8); MPV 10.6 fL (7.6-11.3); RBC Red Blood Cell Count 4.66 M/uL (3.86-4.86)
[2021-03-29 17:54] LABS: Urine Blood 2+ (Negative); Urine Glucose Negative (Negative); Urine Protein 2+ (Negative); Urine Specific Gravity 1.025 (1.005-1.030)
[2021-03-29 18:01] LABS: ALT/SGPT 88 U/L (12-78); AST/SGOT 67 U/L (15-37); Albumin 3.8 g/dL (3.4-5.0); Alkaline Phosphatase 123 U/L (45-117); BUN Blood Urea Nitrogen 13 mg/dL (7-18); Bicarbonate 25 mmol/L (21-32); Bilirubin Direct 0.2 mg/dL (0-0.2); Bilirubin Total 0.8 mg/dL (0.2-1.0); Glucose Level 95 mg/dL (74-106); Lipase 65 U/L (73-393); Potassium 3.3 mmol/L (3.5-5.1); Protein, Total 7.7 g/dL (6.4-8.2); Sodium Level 139 mmol/L (136-145)
[2021-03-29 18:32] LABS: Urine Bacteria 20-50 /HPF (<20); Urine Mucus 2+ /HPF (NONE SEEN); Urine RBC <5 /HPF (NONE SEEN)
[2021-03-29 18:51] LABS: Urine Specific Gravity/Preg 1.025 (1.005-1.030)
--- NOTE | 2021-03-29 19:01 | RAD REPORT ---
EXAM DESCRIPTION: CT - Abdomen Pelvis W Contrast - 03/29/2021 6:44 pm CLINICAL HISTORY: Abdominal pain COMPARISON: none. TECHNIQUE: Computed axial tomography of the abdomen pelvis was obtained. 100 cc [id number] was admin istered intravenously. Oral contrast was not requested which limits evaluation of bowel. All CT scans are performed using dose optimization technique as appropriate and may include automated exposure control or mA/KV adjustment according to patient size. FINDINGS: 2.5 centimeter isodense round structure abuts the medial aspect of the spleen. Liver, pancreas, adrenals and left kidney are unremarkable. Cholecystectomy Linear low-density area within the upper and mid pole right kidney probably a junctional parenchymal defect which is a normal variant. No evidence diverticulitis. Normal appendix. No adnexal mass. Tiny umbilical hernia Bladder wall appears thickened IMPRESSION: 2.5 centimeter isodense round structure abuts the medial aspect of the spleen. It probab ly represents an accessory spleen. A mass is considered less likely. It is recommended that the patie nt have a followup ultrasound in 3 months for re-evaluation. Bladder wall appears thickened. This could be secondary to incomplete distention or cystitis
--- NOTE | 2021-03-29 19:22 | ER ---
Nurse's Notes [facility] Name: Efrem Pastor Age: 30 yrs Sex: Female : 1990 Arrival Date: 03/29/2021 Time: 16:48 Bed 5 Private MD: Diagnosis: UTI/ Urinary tract infection, site not specified;Vomiting Presentation: 03/29 17:05 Chief complaint: Patient states: Patient reports vomiting episodes x 4 days that comes ke1 and go but not able to handle it today. Hx of gastroparesis and irritable bowel syndrome. 133/97 79 98% 18 Temp 98.8. Coronavirus screen: Vaccine status: Patient reports receiving the 2nd dose of the covid vaccine. 17:05 Method Of Arrival: Ambulatory ke1 17:09 Ebola Screen: No symptoms or risks identified at this time. Initial Sepsis Screen: Does ke1 the patient meet any 2 criteria? No. Patient's initial sepsis screen is negative. Does the patient have a suspected source of infection? No. Patient's initial sepsis screen is negative. Risk Assessment: Do you want to hurt yourself or someone else? Patient reports no desire to harm self or others. Onset of symptoms was February 23, 2021. 17:09 Acuity: BELINDA 3 ke1 Triage Assessment: 17:15 General: Appears uncomfortable, Behavior is cooperative, appropriate for age. ke1 17:15 Pain: Complains of pain in abdomen Pain currently is 9 out of 10 on a pain scale. ke1 Quality of pain is described as throbbing, Pain began 2-3 days ago. Alleviated by repositioning. Cardiovascular: Capillary refill < 3 seconds Patient's skin is warm and dry. Respiratory: Airway is patent Breath sounds are clear bilaterally. GI: Abdomen is flat, non-distended, Bowel sounds present X 4 quads. Abd is soft Abdomen is tender to palpation X 4 quads. Reports lower abdominal pain, upper abdominal pain, nausea. Historical: - Allergies: 17:13 Scopolamine HBr; ke1 - PMHx: 17:15 gastroparesis; Irritable bowel syndrome; ke1 - PSHx: 17:24 Lumpectomy of breast; right breast; bilateral ureter attachment; Cholecystectomy; leep ke1 procedure; - Immunization history:: Adult Immunizations Client reports receiving the 2nd dose of the Covid vaccine. - Social history:: Smoking status: Reported history of juuling and/or vaping. Screenin:04 Abuse screen: Denies threats or abuse. Nutritional screening: No deficits noted. ke1 Tuberculosis screening: No symptoms or risk factors identified. Fall Risk No fall in past 12 months (0 pts). No secondary diagnosis (0 pts). IV access (20 points). Ambulatory Aid- None/Bed Rest/Nurse Assist (0 pts). Gait- Normal/Bed Rest/Wheelchair (0 pts) Mental Status- Oriented to own ability (0 pts). Total Cheng Fall Scale indicates No Risk (0-24 pts). Assessment: 17:46 General: see triage assessment. ke1 18:46 Reassessment: Patient and/or family updated on plan of care and expected duration. Pain ke1 level reassessed. Patient denies pain at this time. Previously refused CT scan but she finally agrees, CT scan done and patient back in the room. Vital Signs: 17:09 BP 133 / 97; Pulse 71; Resp 18; Temp 98.8; Pulse Ox 98% on R/A; Weight 52.16 kg; Height ke1 5 ft. (152.40 cm); 17:46 BP 157 / 103; Pulse 87; Resp 18; Pulse Ox 97% on R/A; ke1 17:09 Body Mass Index 22.46 (52.16 kg, 152.40 cm) ke1 ED Course: 16:48 Patient arrived in ED. mr 16:53 Tip Grimm, RN is Primary Nurse. ke1 16:54 Sherrie Pinto FNP-C [facility]. kb 16:54 Faheem Stewart MD is Attending Physician. kb 17:10 Patient has correct armband on for positive identification. ke1 17:11 Triage completed. ke1 17:31 Inserted saline lock: 20 gauge in right antecubital area, using aseptic technique. jw7 Blood collected. 18:05 Arm band placed on right wrist. ke1 18:44 CT Abd/Pelvis - IV Contrast Only In Process Unspecified. EDMS 19:38 No provider procedures requiring assistance completed. IV discontinued, intact, ld1 bleeding controlled, No redness/swelling at site. Administered Medications: 17:44 Drug: Reglan (metoCLOPramide) 10 mg Route: IVP; Site: right antecubital; ke1 18:02 Follow up: Response: Marked relief of symptoms; Marked relief of symptoms, no nausea at ke1 this time 17:44 Drug: ProTONIX (pantoprazole) 40 mg Route: IVP; Site: right antecubital; ke1 18:02 Follow up: Response: Vomiting decreased; Vomiting decreased, no vomting after last dose ke1 protonix 17:44 Drug: morphine 4 mg Route: IVP; Site: right antecubital; ke1 18:01 Follow up: Response: Pain is decreased; Pain is decreased 05/19 ke1 19:37 Drug: Potassium Chloride 20 mEq Route: PO; ld1 19:37 Drug: Rocephin (cefTRIAXone) 1 grams Route: IV; Rate: calculated rate; Site: left ld1 antecubital; Outcome: 19:21 Discharge ordered by MD. kb 19:38 Discharged to home ambulatory. ld1 19:38 Condition: stable 19:38 Discharge instructions given to patient, Instructed on discharge instructions, follow up and referral plans. medication usage, Demonstrated understanding of instructions, follow-up care, medications. 19:38 Patient left the ED. ld1 Addendum: 04/01/2021 18:42 Addendum: Culture Results: Positive urine culture. No further action required. Bacteria i w sensitive to prescribed antibiotic. Signatures: Dispatcher [employer] EDMS Sherrie Pinto, KALLI WEINERP-Kira Perales Lynnette Malik RN RN iw Dibbern, Lauren, RN RN ld1 Debby Wray jw7 Tip Grimm RN RN ke1 Corrections: (The following items were deleted from the chart) 03/29 17:24 17:09 Acuity: BELINDA 4 ke1 ke1 17:45 17:44 morphine 4 mg IVP in left antecubital ke1 ke1 17:45 17:44 ProTONIX (pantoprazole) 40 mg IVP in left antecubital ke1 ke1 17:45 17:44 Reglan (metoCLOPramide) 10 mg IVP in left antecubital ke1 ke1 18:01 17:15 GI: Abdomen is flat, non-distended, Bowel sounds present X 4 quads. ke1 ke1 18:06 17:15 GI: Abdomen is flat, non-distended, Bowel sounds present X 4 quads. Reports lower ke1 abdominal pain, upper abdominal pain, nausea, ke1 18:24 18:05 GI: ke1 ke1
--- NOTE | 2021-03-29 19:22 | EDPHYS ---
Physician Documentation [facility] Name: Efrem Pastor Age: 30 yrs Sex: Female : 1990 Arrival Date: 03/29/2021 Time: 16:48 Bed 5 Private MD: ED Physician Faheem Stewart HPI: 03/29 19:31 This 30 yrs old Female presents to ER via Ambulatory with complaints of Abdominal Pain, kb Vomiting. 19:31 The patient presents with abdominal pain that is diffuse. Onset: The symptoms/episode kb began/occurred 4 day(s) ago. The symptoms do not radiate. Associated signs and symptoms: Pertinent positives: nausea and vomiting. The symptoms are described as constant. Modifying factors: The symptoms are alleviated by nothing, the symptoms are aggravated by nothing. Severity of pain: At its worst the pain was moderate in the emergency department the pain is unchanged. The patient has experienced similar episodes in the past, chronically. ER in the [place]. Pt reports history of IBS and gastroparesis. States she has been vomiting for 4 days and today was unable to tolerate any of her medications to control it. . Historical: - Allergies: 17:13 Scopolamine HBr; ke1 - PMHx: 17:15 gastroparesis; Irritable bowel syndrome; ke1 - PSHx: 17:24 Lumpectomy of breast; right breast; bilateral ureter attachment; Cholecystectomy; leep ke1 procedure; - Immunization history:: Adult Immunizations Client reports receiving the 2nd dose of the Covid vaccine. - Social history:: Smoking status: Reported history of juuling and/or vaping. ROS: 19:30 Constitutional: Negative for fever, chills, and weight loss. kb 19:30 Abdomen/GI: Positive for abdominal pain, nausea and vomiting. 19:30 All other systems are negative. Exam: 19:30 Constitutional: This is a well developed, well nourished patient who is awake, alert, kb and in no acute distress. Head/Face: Normocephalic, atraumatic. ENT: Moist Mucous membranes Cardiovascular: Regular rate and rhythm with a normal S1 and S2. No gallops, murmurs, or rubs. No pulse deficits. Respiratory: Respirations even and unlabored. No increased work of breathing. Talking in full sentences Skin: Warm, dry with normal turgor. Normal color. MS/ Extremity: Pulses equal, no cyanosis. Neurovascular intact. Full, normal range of motion. Neuro: Awake and alert, GCS 15, oriented to person, place, time, and situation. Moves all extremities. Normal gait. Psych: Awake, alert, with orientation to person, place and time. Behavior, mood, and affect are within normal limits. 19:30 Abdomen/GI: Inspection: abdomen appears normal, Bowel sounds: normal, in all quadrants, Palpation: soft, in all quadrants, mild abdominal tenderness, in the right upper quadrant, left upper quadrant and right lower quadrant. Vital Signs: 17:09 BP 133 / 97; Pulse 71; Resp 18; Temp 98.8; Pulse Ox 98% on R/A; Weight 52.16 kg; Height ke1 5 ft. (152.40 cm); 17:46 BP 157 / 103; Pulse 87; Resp 18; Pulse Ox 97% on R/A; ke1 17:09 Body Mass Index 22.46 (52.16 kg, 152.40 cm) ke1 MDM: 16:54 Patient medically screened. kb 19:03 Data reviewed: vital signs, nurses notes. Data interpreted: Pulse oximetry: on room air kb is 97 %. Interpretation: normal. Counseling: I had a detailed discussion with the patient and/or guardian regarding: the historical points, exam findings, and any diagnostic results supporting the discharge/admit diagnosis, lab results, radiology results, the need for outpatient follow up, a family practitioner, a gravity prospecting observer, to return to the emergency department if symptoms worsen or persist or if there are any questions or concerns that arise at home. 03/29 17:03 Order name: Basic Metabolic Panel; Complete Time: 18:03 kb 18 17:03 Order name: CBC with Diff; Complete Time: 17:54 kb 18 17:03 Order name: Hepatic Function; Complete Time: 18:03 kb 18 17:03 Order name: Lipase; Complete Time: 18:03 kb 18 17:03 Order name: Urine Microscopic Only; Complete Time: 18:42 kb 18 17:54 Order name: Urine Dipstick-Ancillary EDMS 18 17:03 Order name: CT Abd/Pelvis - IV Contrast Only; Complete Time: 19:02 kb 03/29 17:54 Order name: Urine Dipstick-Ancillary; Complete Time: 17:54 EDMT 03/29 18:03 Order name: Urine --Ancillary (enter results); Complete Time: 18:56 eb 03/29 18:33 Order name: Urine Culture EDMT 03/29 17:03 Order name: IV Saline Lock; Complete Time: 17:48 kb 03/29 17:03 Order name: Labs collected and sent; Complete Time: 18:22 kb 03/29 17:03 Order name: Urine Dipstick-Ancillary (obtain specimen); Complete Time: 17:58 kb 03/29 17:03 Order name: Urine Test (obtain specimen); Complete Time: 17:58 kb Administered Medications: 17:44 Drug: Reglan (metoCLOPramide) 10 mg Route: IVP; Site: right antecubital; ke1 18:02 Follow up: Response: Marked relief of symptoms; Marked relief of symptoms, no nausea at ke1 this time 17:44 Drug: ProTONIX (pantoprazole) 40 mg Route: IVP; Site: right antecubital; ke1 18:02 Follow up: Response: Vomiting decreased; Vomiting decreased, no vomting after last dose ke1 protonix 17:44 Drug: morphine 4 mg Route: IVP; Site: right antecubital; ke1 18:01 Follow up: Response: Pain is decreased; Pain is decreased 05/19 ke1 19:37 Drug: Potassium Chloride 20 mEq Route: PO; ld1 19:37 Drug: Rocephin (cefTRIAXone) 1 grams Route: IV; Rate: calculated rate; Site: left ld1 antecubital; Disposition: 03/30 07:07 Co-signature as Attending Physician, Faheem Stewart MD I agree with the assessment and rn plan of care. Attestation: The patient's history, exam findings, diagnostics, and a summary of any interventions or procedures was reviewed in detail with Sherrie MAHAN. Disposition Summary: 03/29/21 19:21 Discharge Ordered Location: Home kb Condition: Stable kb Diagnosis - UTI/ Urinary tract infection, site not specified kb - Vomiting kb Followup: kb - With: Emergency Department - When: As needed - Reason: Worsening of condition Followup: kb - With: Private Physician - When: 2 - 3 days - Reason: Recheck today's complaints, Continuance of care, Re-evaluation by your physician Discharge Instructions: - Discharge Summary Sheet kb - Urinary Tract Infection, Adult, [id number] kb Forms: - Medication Reconciliation Form kb - Thank You Letter kb - Antibiotic Education kb - Prescription Opioid Use kb Prescriptions: - Macrobid 100 mg Oral Capsule - take 1 capsule by ORAL route every 12 hours for 10 days; 20 capsule; Refills: kb 0, Product Selection Permitted - promethazine 25 mg Rectal suppository - insert 1 suppository by RECTAL route every 6 hours As needed; 20 suppository; kb Refills: 0, Product Selection Permitted Signatures: Dispatcher [employer] EDMS Sherrie Pinto, PUBLISHING EDITOR-C PUBLISHING EDITOR-Ckb Faheem Stewart MD MD rn Otilia Weston RN RN ld1 Tip Grimm RN RN ke1
[2021-03-29] MEDS ORDERED: CEFTRIAXONE 1000 MG/VIAL ONE (19:33)
[2021-03-29] MEDS ORDERED: POTASSIUM CL SA 10 MEQ TAB PO ONE (19:33)
[2021-03-29 19:44] VITALS: TEMP 98.8
[2021-03-29 19:45] VITALS: BP 157/103; O2SAT 97
== END 2021-03-29 19:38 | disposition home or self-care (01) ==
LOC: ER 16:45
DX: N39.0 Urinary tract infection, site not specified (principal); Z91.048 Other nonmedicinal substance allergy status
CPT/HCPCS: 87088; 85025; 87086; 80048; 36415; 81025; 80076; 87077; 87186; 83690; 74177; 99284; Q9967; J2765; C9113; 81003; 81015

== ENCOUNTER 2021-05-25 15:28 | Emergency (ER) | payer OTHER ==
--- OUTSIDE RECORDS SUMMARY | 2021-05-25 15:31 | XMS REPORT | Continuity of Care Document ---
:1990 Author Organization [facility] t Address [address] [place] [address] Care Team Providers Name Role Phone Sudhir Attending Clinician Unavailable Physician, Primary or Family Admitting Clinician Unavailabl e Payers Payer Name Policy Type Policy Number Effective Date Expiration Date S ource Problems This patient has no known problems. Allergies, Adverse Reactions, Alerts Allergy Allergy Status Severity Reaction(s) Onset Inactive Treating Comm ents Source Name Type Date Date Clinician No Known DA Active U [facility] All[facility] 1- [facility] No Known DA [facility] 5-16 [facility] No Known DA Active [facility] Allergie -16 [facility] scopolam DA Active [place] [facility] ine 4-10 [facility] scopolam DA Active [place] RASH-HIVES [facility] ine 4-10 [facility] No Known DA Active [facility] Allergie 6-20 [facility] No Known DA Active U [facility] Allergie 6-20 [facility] 00:[facility] No Known DA Active U [facility] Drug -15 [facility] 00:[facility]: [facility] No Known DA Active U NONE [facility] 15 [facility]: [facility] Medications This patient has no known medications. Procedures This patient has no known procedures. Encounters Start End Encounter Admission Attending Care Care Encounter Source Date/Time Date/Time Type Type Clinicians Facility Department ID 2020-06-24 Inpatient [facility] [id number] [facility] 15:[facility]00 [id number] [facility] 2020-05-19 Inpatient [facility] [id number] [facility] 11:27:00 [id number] [facility] 2019-07-30 Inpatient [facility] [id number] [facility] 21:08:00 [id number] [facility] 2021-02-09 2021-02-10 Emergency EM Peguero, [facility] ER [id number] [facility] 23:10:00 00:19:00 Kaelyn [id number] [facility] 2021-02-09 2021-02-09 Emergency EM Peguero, [facility] [id number] [facility] 23:10:00 23:10:00 Kaelyn 49 [facility] Results Test Description Test [...] = 60 ml/mi n/1.73M2IF PATIENT IS AFRI [place]-GREEN[place], MULTIPLY REPORT ED RESULT BY1.21. [Automa ashley message] The system [employer] generated this result tra nsmitted reference range [...] U/L 45-117 H (test code = ALKP) [id number] 16:11:00 Test Item Value Reference Range Interpretation Comments LIPASE (test code = LIP) 108 U/L 73-393 N URINALYSIS W REFLEX [id number] 16:05:00 Test Item Value Reference Range Interpretation [...] UA MICRO code = UAMICRO) UR HCG [id number] 16:05:00 Test Item Value Reference Range Interpretation Comments UR HCG QUAL (test code = HCGQLU) NEGATIVE NEGATIVE URINALYSIS W REFLEX [id number] 16:05:00 Test Item Value Reference Range Interpretation [...] DO UA MICRO code = UAMICRO) UA [id number] 16:05:00 Test Item Value Reference Range Interpretation Comments UA WBC (test code = WBCU) 0-2 #/hpf 0-5 UA RBC (test code = RBCU) 0-2 #/hpf 0-5 UA EPITHELIAL CELLS (test code = 2+ /hpf NEG,FEW A EPIU) UA BACTERIA (test code = BACU) FEW /hpf NEGATIVE A UA AMORPHOUS SEDIMENT (test code = FEW /hpf NEG,FEW AMORU) UR HCG [id number] 16:05:00 Test Item Value Reference Range Interpretation Comments UR HCG QUAL (test code = HCGQLU) NEGATIVE NEGATIVE URINALYSIS W REFLEX [id number] 16:05:00 Test Item Value Reference Range Interpretation [...] UA MICRO code = UAMICRO) UR HCG [id number] 16:05:00 Test Item Value Reference Range Interpretation Comments UR HCG QUAL (test code = HCGQLU) NEGATIVE NEGATIVE DRUGS OF ABUSE [id number] 16:01:00 Test Item Value Reference Range Interpretation [...] code = WAS TESTE D AT THE [facility]) LISTED CUTOFFS DRUG CLASS INITIAL TEST LEVEL AMPHETAMI YOSELIN 1000 NG/MLBARBITURAT ES 200 NG/MLBENZODIAZE PIN ES 200 NG/MLCOCAINE METABOLITE 300 NG/MLMARIJUANA METABOLITE 5 0 NG/MLOPIATES 300 NG/MLPHENCYCLID INE 25 NG /ML URINALYSIS W REFLEX [id number] 15:58:00 Test Item Value Reference Range Interpretation [...] NEEDED? (test code = UAMICRO) UR HCG [id number] 15:58:00 Test Item Value Reference Range Interpretation Comments UR HCG QUAL (test code = HCGQLU) NEGATIVE NEGATIVE CBC W/AUTO [id number] 15:52:00 Test Item Value Reference Range Interpretation [...] NORMAL code = RBCM) URINALYSIS W REFLEX [id number] 13:00:00 Test Item Value Reference Range Interpretation [...] MICRO code = UAMICRO) UA ICTOTEST FOR [id number] 13:00:00 Test Item Value Reference Range Interpretation Comments UA ICTOTEST FOR BILIRUBIN (test code POSITIVE NEGATIVE A = ICTOU) UA [id number] 13:00:00 Test Item Value Reference Range Interpretation Comments UA WBC (test code = WBCU) 0-2 #/hpf 0-5 UA RBC (test code = RBCU) 3-5 #/hpf 0-5 UA EPITHELIAL CELLS (test code = FEW /hpf NEG,FEW EPIU) UA BACTERIA (test code = BACU) FEW /hpf NEGATIVE A UA MUCUS (test code = MUCU) 1+ /hpf NEG,FEW A UR HCG [id number] 13:00:00 Test Item Value Reference Range Interpretation Comments UR HCG QUAL (test code = HCGQLU) NEGATIVE NEGATIVE DRUGS OF ABUSE [id number] 12:57:00 Test Item Value Reference Range Interpretation [...] code = WAS TESTE D AT THE [facility]) LISTED CUTOFFS DRUG CLASS INITIAL TEST LEVEL AMPHETAMI YOSELIN 1000 NG/MLBARBITURAT ES 200 NG/MLBENZODIAZE PIN ES 200 NG/MLCOCAINE METABOLITE 300 NG/MLMARIJUANA METABOLITE 5 0 NG/MLOPIATES 300 NG/MLPHENCYCLID INE 25 NG /ML URINALYSIS W REFLEX [id number] 12:56:00 Test Item Value Reference Range Interpretation [...] MICRO code = UAMICRO) UA ICTOTEST FOR [id number] 12:56:00 Test Item Value Reference Range Interpretation Comments UA ICTOTEST FOR BILIRUBIN (test code POSITIVE NEGATIVE A = ICTOU) UR HCG [id number] 12:56:00 Test Item Value Reference Range Interpretation Comments UR HCG QUAL (test code = HCGQLU) NEGATIVE NEGATIVE URINALYSIS W REFLEX [id number] 12:53:00 Test Item Value Reference Range Interpretation [...] UA MICRO code = UAMICRO) UR HCG [id number] 12:53:00 Test Item Value Reference Range Interpretation Comments UR HCG QUAL (test code = HCGQLU) NEGATIVE NEGATIVE URINALYSIS W REFLEX [id number] 12:53:00 Test Item Value Reference Range Interpretation [...] UA MICRO code = UAMICRO) UR HCG [id number] 12:53:00 Test Item Value Reference Range Interpretation Comments UR HCG QUAL (test code = HCGQLU) NEGATIVE NEGATIVE - XR ABDOMEN [id number] 12:16:00 [facility] 1990 Sex: F FAX: Sawyer Centeno II [place]: St: PRE Name: BREANNA QUEEN [place] FSED : 1990 Age/S: 30/F [address] Unit #: [id number] Loc: [place] [address] Phys: Genesis Centeno MD Acct: [id number] Dis Date: Status: PRE ER PHONE #: Exam Date: 05/19/2020 1212 FAX #: Reason: abdominal pain EXAMS: CPT CODE: [id number] XR ABDOMEN 2V 06459 - XR ABDOMEN 2V PROVIDED REASON FOR [...] signed by: DEVANTE CABALLERO M.D. CC: Technologist: RT Bekah (Gretta) CT [facility] Date/Time/By: 05/19/2020 ([id number]) : By: [email or web address] Orig Print D/T: S: 05/19/2020 (0774) PAGE 1 Signed ReportBASIC METABOLIC [id number] 12:08:00 Test Item Value Reference Range Interpretation [...] -JAYSON N, MULTIPLY REPORT ED RESULT BY1.21. [Automated mess age] The system [employer] generated this result transmitted ref erence range: >=60. Th e reference range was not used to int erpret this result as normal/abnormal . CREATININE (test code 0.64 mg/dl 0.55-1.02 N = CREAT) CALCIUM (test code = 9.8 mg/dL 8.5-10.1 N CA) LIVER [id number] 12:08:00 Test Item Value Reference Range Interpretation [...] 119 U/L 45-117 H code = ALKP) [id number] 12:08:00 Test Item Value Reference Range Interpretation Comments LIPASE (test code = LIP) 67 U/L 73-393 L CBC W/AUTO [id number] 11:43:00 Test Item Value Reference Range Interpretation [...] NORMAL code = RBCM) URINALYSIS W REFLEX [id number] 22:06:00 Test Item Value Reference Range Interpretation [...] MUCU) 2+ /hpf NEG,FEW A BASIC METABOLIC [id number] 21:54:00 Test Item Value Reference Range Interpretation [...] = 9.3 mg/dL 8.5-10.1 N CA) LIVER [id number] 21:54:00 Test Item Value Reference Range Interpretation [...] 69 U/L 50-136 N code = ALKP) [id number] 21:54:00 Test Item Value Reference Range Interpretation Comments LIPASE (test code = LIP) 63 U/L 73-393 L BASIC METABOLIC [id number] 21:53:00 Test Item Value Reference Range Interpretation [...] = 9.3 mg/dL 8.5-10.1 N CA) LIVER [id number] 21:53:00 Test Item Value Reference Range Interpretation [...] TOTAL (test U/L 50-136 code = ALKP) [id number] 21:53:00 Test Item Value Reference Range Interpretation Comments LIPASE (test code = LIP) 63 U/L 73-393 L BASIC METABOLIC [id number] 21:52:00 Test Item Value Reference Range Interpretation [...] = 9.3 mg/dL 8.5-10.1 N CA) LIVER [id number] 21:52:00 Test Item Value Reference Range Interpretation [...] TOTAL (test U/L 50-136 code = ALKP) [id number] 21:52:00 Test Item Value Reference Range Interpretation Comments LIPASE (test code = LIP) 63 U/L 73-393 L BASIC METABOLIC [id number] 21:51:00 Test Item Value Reference Range Interpretation [...] = 9.3 mg/dL 8.5-10.1 N CA) LIVER [id number] 21:51:00 Test Item Value Reference Range Interpretation [...] TOTAL (test U/L 50-136 code = ALKP) [id number] 21:51:00 Test Item Value Reference Range Interpretation Comments LIPASE (test code = LIP) 63 U/L 73-393 L BASIC METABOLIC [id number] 21:49:00 Test Item Value Reference Range Interpretation [...] = CA) 9.3 mg/dL 8.5-10.1 N LIVER [id number] 21:49:00 Test Item Value Reference Range Interpretation [...] TOTAL (test U/L 50-136 code = ALKP) [id number] 21:49:00 Test Item Value Reference Range Interpretation Comments LIPASE (test code = LIP) 63 U/L 73-393 L BASIC METABOLIC [id number] 21:48:00 Test Item Value Reference Range Interpretation [...] = CA) 9.3 mg/dL 8.5-10.1 N LIVER [id number] 21:48:00 Test Item Value Reference Range Interpretation Comments TOTAL PROTEIN (test code = PROT) g/dl 6.4-8.2 ALBUMIN (test code = ALB) g/dl 3.4-5.0 BILIRUBIN TOTAL (test code = BILT) mg/dl 0.2-1.0 BILIRUBIN DIRECT (test code = BILD) mg/dl 0.0-0.4 SGOT/AST (test code = AST) U/L 15-37 SGPT/ALT (test code = ALT) U/L 12-78 ALKALINE PHOSPHATASE TOTAL (test code U/L 50-136 = ALKP) [id number] 21:48:00 Test Item Value Reference Range Interpretation Comments LIPASE (test code = LIP) U/L 73-393 BASIC METABOLIC [id number] 21:46:00 Test Item Value Reference Range Interpretation [...] (test code = CA) mg/dL 8.5-10.1 LIVER [id number] 21:46:00 Test Item Value Reference Range Interpretation Comments TOTAL PROTEIN (test code = PROT) g/dl 6.4-8.2 ALBUMIN (test code = ALB) g/dl 3.4-5.0 BILIRUBIN TOTAL (test code = BILT) mg/dl 0.2-1.0 BILIRUBIN DIRECT (test code = BILD) mg/dl 0.0-0.4 SGOT/AST (test code = AST) U/L 15-37 SGPT/ALT (test code = ALT) U/L 12-78 ALKALINE PHOSPHATASE TOTAL (test code U/L 50-136 = ALKP) [id number] 21:46:00 Test Item Value Reference Range Interpretation Comments LIPASE (test code = LIP) U/L 73-393 CBC W/AUTO [id number] 21:43:00 Test Item Value Reference Range Interpretation [...]
[2021-05-25] MEDS ORDERED: HYDROCODONE/APAP 5/325 MG TAB ONE (15:59)
[2021-05-25] MEDS ORDERED: TETANUS & DIPHTHERIA TOX,ADULT 0.5 ML VIAL ONE (15:59)
--- NOTE | 2021-05-25 16:43 | RAD REPORT ---
EXAM DESCRIPTION: RAD - Elbow Left 3 View - 05/25/2021 4:10 pm CLINICAL HISTORY: PAIN COMPARISON: No comparisons FINDINGS: No acute fracture. No malalignment. No significant focal degenerative changes. IMPRESSION: No acute osseous abnormality involving the left elbow.
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
[2021-05-25 18:06] VITALS: BP 131/85; TEMP 98.6; O2SAT 97
== END 2021-05-25 17:46 | disposition home or self-care (01) ==
LOC: ER 15:28
DX: S50.02XA Contusion of left elbow, initial encounter (principal); V18.0XXA Pedal cycle driver injured in noncollision transport accident in nontraffic accident, initial encounter; Y92.89 Other specified places as the place of occurrence of the external cause; Z88.8 Allergy status to other drugs, medicaments and biological substances; Z23 Encounter for immunization
CPT/HCPCS: 90471; 90714; 99283

== ENCOUNTER 2021-07-28 21:35 | Emergency (ER) | payer OTHER ==
--- OUTSIDE RECORDS SUMMARY | 2021-07-28 21:40 | XMS REPORT | Continuity of Care Document ---
:1990 Author Organization [facility] t Address [address] [place] [address] Care Team Providers Name Role Phone Sudhir Attending Clinician Unavailable Physician, Primary or Family Admitting Clinician Unavailabl e Payers Payer Name Policy Type Policy Number Effective Date Expiration Date S ource Problems This patient has no known problems. Allergies, Adverse Reactions, Alerts Allergy Allergy Status Severity Reaction(s) Onset Inactive Treating Comm ents Source Name Type Date Date Clinician No Known DA Active U 0 [facility] No Known DA Active U 0 [facility] No Known DA Active U [facility] Allergie -16 [facility] scopolam DA Active DE 0 [facility] scopolam DA Active DE RASH-HIVES [facility] No Known DA Active U [facility] Allergie - [facility] No Known DA Active U [facility] Allergie 6 [facility] No Known DA Active U [facility] Drug 10-24 [facility]: [facility] No Known DA Active U NONE [facility] 10-24 [facility]: [facility] Medications This patient has no known medications. Procedures This patient has no known procedures. Encounters Start End Encounter Admission Attending Care Care Encounter Source Date/Time Date/Time Type Type Clinicians Facility Department ID 2020-06-24 Inpatient [facility] ER [id number] [facility] 15:27:00 [id number] [facility] 2020-05-19 Inpatient [facility] ER [id number] [facility] 11:27[id number] 2019-07-30 Inpatient [facility] ER [id number] [facility] 21:08:00 [id number] [facility] 2021-02-09 2021-02-10 [facility] [id number] 23:10:00 00:19:00 Kaelyn [id number] [facility] 2021-02-09 2021-02-09 Emergency EM Sudhir, [facility] [id number] [facility] [place] 23:10:00 23:10:00 Kaelyn 49 [facility] Results Test Description [...] = 60 ml/mi n/1.73M2IF PATIENT IS AFRI CAN-WALLISIAN, MULTIPLY REPORT ED RESULT BY1.21. [Automa ashley message] The system [employer] generated this result tra nsmitted reference range [...] U/L 45-117 H (test code = ALKP) [id number] 16:11:00 Test Item Value Reference Range Interpretation Comments LIPASE (test code = LIP) 108 U/L 73-393 N URINALYSIS W REFLEX [id number] 16:05:00 Test Item Value Reference Range Interpretation [...] UA MICRO code = UAMICRO) UR HCG [id number] 16:05:00 Test Item Value Reference Range Interpretation Comments UR HCG QUAL (test code = HCGQLU) NEGATIVE NEGATIVE URINALYSIS W REFLEX [id number] 16:05:00 Test Item Value Reference Range Interpretation [...] DO UA MICRO code = UAMICRO) UA [id number] 16:05:00 Test Item Value Reference Range Interpretation Comments UA WBC (test code = WBCU) 0-2 #/hpf 0-5 UA RBC (test code = RBCU) 0-2 #/hpf 0-5 UA EPITHELIAL CELLS (test code = 2+ /hpf NEG,FEW A EPIU) UA BACTERIA (test code = BACU) FEW /hpf NEGATIVE A UA AMORPHOUS SEDIMENT (test code = FEW /hpf NEG,FEW AMORU) UR HCG [id number] 16:05:00 Test Item Value Reference Range Interpretation Comments UR HCG QUAL (test code = HCGQLU) NEGATIVE NEGATIVE URINALYSIS W REFLEX [id number] 16:05:00 Test Item Value Reference Range Interpretation [...] UA MICRO code = UAMICRO) UR HCG [id number] 16:05:00 Test Item Value Reference Range Interpretation Comments UR HCG QUAL (test code = HCGQLU) NEGATIVE NEGATIVE DRUGS OF ABUSE [id number] 16:01:00 Test Item Value Reference Range Interpretation Comments UR COCAINE (test code NEGATIVE ng/ml NEGATIVE = COCAU) UR CANNABINOIDS (test POSITIVE ng/ml NEGATIVE A DALY UE EXCEEDS code = CANU) CRITICAL LEVEL. CRITICAL VALUE CALLEDTO AND CRITICAL VALUE READ BACK BY HUBER DOWNING RN 1609 06/24/20. Chas Dixon POSITIVE URINE DRUG SCREEN [...] code = WAS TESTE D AT THE [facility]) LISTED CUTOFFS DRUG CLASS INITIAL TEST LEVEL AMPHETAMI YOSELIN 1000 NG/MLBARBITURAT ES 200 NG/MLBENZODIAZE PIN ES 200 NG/MLCOCAINE METABOLITE 300 NG/MLMARIJUANA METABOLITE 5 0 NG/MLOPIATES 300 NG/MLPHENCYCLID INE 25 NG /ML URINALYSIS W REFLEX [id number] 15:58:00 Test Item Value Reference Range Interpretation [...] NEEDED? (test code = UAMICRO) UR HCG [id number] 15:58:00 Test Item Value Reference Range Interpretation Comments UR HCG QUAL (test code = HCGQLU) NEGATIVE NEGATIVE CBC W/AUTO [id number] 15:52:00 Test Item Value Reference Range Interpretation [...] NORMAL code = RBCM) URINALYSIS W REFLEX [id number] 13:00:00 Test Item Value Reference Range Interpretation [...] MICRO code = UAMICRO) UA ICTOTEST FOR [id number] 13:00:00 Test Item Value Reference Range Interpretation Comments UA ICTOTEST FOR BILIRUBIN (test code POSITIVE NEGATIVE A = ICTOU) UA [id number] 13:00:00 Test Item Value Reference Range Interpretation Comments UA WBC (test code = WBCU) 0-2 #/hpf 0-5 UA RBC (test code = RBCU) 3-5 #/hpf 0-5 UA EPITHELIAL CELLS (test code = FEW /hpf NEG,FEW EPIU) UA BACTERIA (test code = BACU) FEW /hpf NEGATIVE A UA MUCUS (test code = MUCU) 1+ /hpf NEG,FEW A UR HCG [id number] 13:00:00 Test Item Value Reference Range Interpretation Comments UR HCG QUAL (test code = HCGQLU) NEGATIVE NEGATIVE DRUGS OF ABUSE [id number] 12:57:00 Test Item Value Reference Range Interpretation [...] code = WAS TESTE D AT THE [facility]) LISTED CUTOFFS DRUG CLASS INITIAL TEST LEVEL AMPHETAMI YOSELIN 1000 NG/MLBARBITURAT ES 200 NG/MLBENZODIAZE PIN ES 200 NG/MLCOCAINE METABOLITE 300 NG/MLMARIJUANA METABOLITE 5 0 NG/MLOPIATES 300 NG/MLPHENCYCLID INE 25 NG /ML URINALYSIS W REFLEX [id number] 12:56:00 Test Item Value Reference Range Interpretation [...] MICRO code = UAMICRO) UA ICTOTEST FOR [id number] 12:56:00 Test Item Value Reference Range Interpretation Comments UA ICTOTEST FOR BILIRUBIN (test code POSITIVE NEGATIVE A = ICTOU) UR HCG [id number] 12:56:00 Test Item Value Reference Range Interpretation Comments UR HCG QUAL (test code = HCGQLU) NEGATIVE NEGATIVE URINALYSIS W REFLEX [id number] 12:53:00 Test Item Value Reference Range Interpretation [...] UA MICRO code = UAMICRO) UR HCG [id number] 12:53:00 Test Item Value Reference Range Interpretation Comments UR HCG QUAL (test code = HCGQLU) NEGATIVE NEGATIVE URINALYSIS W REFLEX [id number] 12:53:00 Test Item Value Reference Range Interpretation [...] UA MICRO code = UAMICRO) UR HCG [id number] 12:53:00 Test Item Value Reference Range Interpretation Comments UR HCG QUAL (test code = HCGQLU) NEGATIVE NEGATIVE - XR ABDOMEN [id number] 12:16:00 [facility] 1990 Sex: F FAX: Sawyer Centeno II [place]: St: PRE Name: BREANNA QUEEN FSED : 1990 Age/S: 30/F [address] Unit #: [id number] Loc: [place] [address] Phys: Genesis Centeno MD Acct: [id number] Dis Date: Status: PRE ER PHONE #: Exam Date: 05/19/2020 1212 FAX #: Reason: abdominal pain EXAMS: CPT CODE: [id number] XR ABDOMEN 2V 81580 - XR ABDOMEN 2V PROVIDED REASON FOR [...] by: DEVANTE CABALLERO M.D. CC: Technologist: Milan Ayala, RT (R) [facility] Date/Time/By: 05/19/2020 (8857) : By: [email or web address] Orig Print D/T: S: 05/19/2020 (4907) PAGE 1 Signed ReportBASIC METABOLIC [id number] 12:08:00 Test Item Value Reference Range Interpretation [...] RESULT BY1.21. [Automated mess age] The system [employer] generated this result transmitted ref erence range: >=60. Th e reference range was not used to int erpret this result as normal/abnormal . CREATININE (test code 0.64 mg/dl 0.55-1.02 N = CREAT) CALCIUM (test code = 9.8 mg/dL 8.5-10.1 N CA) LIVER [id number] 12:08:00 Test Item Value Reference Range Interpretation [...] 119 U/L 45-117 H code = ALKP) [id number] 12:08:00 Test Item Value Reference Range Interpretation Comments LIPASE (test code = LIP) 67 U/L 73-393 L CBC W/AUTO [id number] 11:43:00 Test Item Value Reference Range Interpretation [...] NORMAL code = RBCM) URINALYSIS W REFLEX [id number] 22:06:00 Test Item Value Reference Range Interpretation [...] MUCU) 2+ /hpf NEG,FEW A BASIC METABOLIC [id number] 21:54:00 Test Item Value Reference Range Interpretation [...] = 9.3 mg/dL 8.5-10.1 N CA) LIVER [id number] 21:54:00 Test Item Value Reference Range Interpretation [...] 69 U/L 50-136 N code = ALKP) [id number] 21:54:00 Test Item Value Reference Range Interpretation Comments LIPASE (test code = LIP) 63 U/L 73-393 L BASIC METABOLIC [id number] 21:53:00 Test Item Value Reference Range Interpretation [...] = 9.3 mg/dL 8.5-10.1 N CA) LIVER [id number] 21:53:00 Test Item Value Reference Range Interpretation [...] TOTAL (test U/L 50-136 code = ALKP) [id number] 21:53:00 Test Item Value Reference Range Interpretation Comments LIPASE (test code = LIP) 63 U/L 73-393 L BASIC METABOLIC [id number] 21:52:00 Test Item Value Reference Range Interpretation [...] = 9.3 mg/dL 8.5-10.1 N CA) LIVER [id number] 21:52:00 Test Item Value Reference Range Interpretation [...] TOTAL (test U/L 50-136 code = ALKP) [id number] 21:52:00 Test Item Value Reference Range Interpretation Comments LIPASE (test code = LIP) 63 U/L 73-393 L BASIC METABOLIC [id number] 21:51:00 Test Item Value Reference Range Interpretation [...] = 9.3 mg/dL 8.5-10.1 N CA) LIVER [id number] 21:51:00 Test Item Value Reference Range Interpretation [...] TOTAL (test U/L 50-136 code = ALKP) [id number] 21:51:00 Test Item Value Reference Range Interpretation Comments LIPASE (test code = LIP) 63 U/L 73-393 L BASIC METABOLIC [id number] 21:49:00 Test Item Value Reference Range Interpretation [...] = CA) 9.3 mg/dL 8.5-10.1 N LIVER [id number] 21:49:00 Test Item Value Reference Range Interpretation [...] TOTAL (test U/L 50-136 code = ALKP) [id number] 21:49:00 Test Item Value Reference Range Interpretation Comments LIPASE (test code = LIP) 63 U/L 73-393 L BASIC METABOLIC [id number] 21:48:00 Test Item Value Reference Range Interpretation [...] = CA) 9.3 mg/dL 8.5-10.1 N LIVER [id number] 21:48:00 Test Item Value Reference Range Interpretation Comments TOTAL PROTEIN (test code = PROT) g/dl 6.4-8.2 ALBUMIN (test code = ALB) g/dl 3.4-5.0 BILIRUBIN TOTAL (test code = BILT) mg/dl 0.2-1.0 BILIRUBIN DIRECT (test code = BILD) mg/dl 0.0-0.4 SGOT/AST (test code = AST) U/L 15-37 SGPT/ALT (test code = ALT) U/L 12-78 ALKALINE PHOSPHATASE TOTAL (test code U/L 50-136 = ALKP) [id number] 21:48:00 Test Item Value Reference Range Interpretation Comments LIPASE (test code = LIP) U/L 73-393 BASIC METABOLIC [id number] 21:46:00 Test Item Value Reference Range Interpretation [...] (test code = CA) mg/dL 8.5-10.1 LIVER [id number] 21:46:00 Test Item Value Reference Range Interpretation Comments TOTAL PROTEIN (test code = PROT) g/dl 6.4-8.2 ALBUMIN (test code = ALB) g/dl 3.4-5.0 BILIRUBIN TOTAL (test code = BILT) mg/dl 0.2-1.0 BILIRUBIN DIRECT (test code = BILD) mg/dl 0.0-0.4 SGOT/AST (test code = AST) U/L 15-37 SGPT/ALT (test code = ALT) U/L 12-78 ALKALINE PHOSPHATASE TOTAL (test code U/L 50-136 = ALKP) [id number] 21:46:00 Test Item Value Reference Range Interpretation Comments LIPASE (test code = LIP) U/L 73-393 CBC W/AUTO [id number] 21:43:00 Test Item Value Reference Range Interpretation [...]
[2021-07-28 22:25] LABS: Urine Blood 2+ (Negative); Urine Glucose Negative (Negative); Urine Protein Negative (Negative); Urine Specific Gravity 1.025 (1.005-1.030); Urine pH 5.5 (5.0-7.0)
[2021-07-28 22:40] LABS: Absolute Lymphocytes (CBC) 0.8 K/uL (0.7-4.9); Hematocrit 38.4 % (36.0-45.0); Lymphocytes % 21.6 % (15.3-44.8); MPV 10.4 fL (7.6-11.3); RBC Red Blood Cell Count 4.68 M/uL (3.86-4.86)
[2021-07-28 22:43] LABS: Protime INR 0.92
[2021-07-28 23:01] LABS: Barbiturates NEGATIVE (NEGATIVE); Benzodiazepines NEGATIVE (NEGATIVE); Cocaine NEGATIVE (NEGATIVE); METHAMPHETAM NEGATIVE (NEGATIVE); Methadone NEGATIVE (NEGATIVE); Opiates NEGATIVE (NEGATIVE); Phencyclidine NEGATIVE (NEGATIVE); THC Cannibis POSITIVE (NEGATIVE)
[2021-07-28 23:03] LABS: ALT/SGPT 74 U/L (12-78); AST/SGOT 50 U/L (15-37); Albumin 3.8 g/dL (3.4-5.0); Alkaline Phosphatase 115 U/L (45-117); BUN Blood Urea Nitrogen 9 mg/dL (7-18); Bicarbonate 25 mmol/L (21-32); Bilirubin Direct < 0.1 mg/dL (0-0.2); Bilirubin Total 0.4 mg/dL (0.2-1.0); Glomerular Filtration Rate 110 ml/min (=/>90); Glucose Level 102 mg/dL (74-106); Potassium 4.3 mmol/L (3.5-5.1); Protein, Total 7.9 g/dL (6.4-8.2); Sodium Level 139 mmol/L (136-145)
--- NOTE | 2021-07-29 | ER ---
Nurse's Notes [facility] Name: Efrem Pastor Age: 31 yrs Sex: Female : 1990 Arrival Date: 07/28/2021 Time: 21:38 Bed 20 Private MD: Diagnosis: Suicidal ideations;Anxiety disorder, unspecified Presentation: 07/28 21:54 Chief complaint: Patient states: I have been having bad anxiety and depression for the jb4 past 3 days. I have been having thoughts of suicide, I do not want to hurt myself but I am scared and want help. I was drinking tonight and I fell forward onto my arm and cut it. Coronavirus screen: At this time, the client does not indicate any symptoms associated with coronavirus-19. Ebola Screen: No symptoms or risks identified at this time. Initial Sepsis Screen: Does the patient meet any 2 criteria? HR > 90 bpm. Yes Does the patient have a suspected source of infection? Yes: Skin breakdown/wound. Risk Assessment: Do you want to hurt yourself or someone else? Patient reports no desire to harm self or others. Onset of symptoms was July 28, 2021. Transition of care: patient was not received from another setting of care. 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 - Social history:: Smoking status: Patient/guardian denies using tobacco, Stopped _ months ago 4 Patient uses alcohol, only on a social basis. - Family history:: not pertinent. - Hospitalizations: : No recent hospitalization is reported. Screenin:41 Abuse screen: Denies threats or abuse. Denies injuries from another. Nutritional sm5 screening: No deficits noted. Tuberculosis screening: No symptoms or risk factors identified. Fall Risk None identified. Assessment: 22:40 General: Appears in no apparent distress. Behavior is crying. Pain: Denies pain. Neuro: 5 Level of Consciousness is awake, alert, obeys commands, Oriented to person, place, time, situation. Cardiovascular: No deficits noted. Capillary refill < 3 seconds Patient's skin is warm and dry. Respiratory: No deficits noted. Airway is patent Trachea midline Respiratory effort is even, unlabored. Derm: Wound noted left arm multiple horizontal cuts to patients left arm, pt denies self injury, states she fell on concrete and a rock cut her. 23:45 Reassessment: No changes from previously documented assessment. Patient and/or family 5 updated on plan of care and expected duration. Pain level reassessed. 07/29 00:45 Reassessment: pt asleep in bed. 5 01:39 Reassessment: No changes from previously documented assessment. 5 02:15 Reassessment: [facility] at bedside. [facility] Psych: 07/28 22:39 [place] Suicide Severity Screening: In the past month, have you wished you were sm5 or wished you could go to sleep and not wake up? Patient responds "No." "In the past month, have you actually had any thoughts of killing yourself?" Patient responds "no." "In your lifetime, have you ever done anything, started to do anything, or prepared to do anything to end your life?" Patient responds "no.". Subjective: Patient's mood is sad, Delusions are denied, Hallucinations are denied. Objective: Patient is cooperative, Speech is normal. Interventions: Removed personal items and placed in bag. Patient placed in hospital gown. Searched person for dangerous items. Urine collected and sent for urine drug test. Belonging list filled out. Safety Checks: Personal items have been removed. Door is open. CBD. 07/29 03:17 Commitment: [facility] recommending outpatient. [facility] Vital Signs: 07/28 21:54 BP 128 / 95; Pulse 100; Resp 16; Temp 97.8(TE); Pulse Ox 95% on R/A; Weight 58.97 kg jb4 (R); Height 5 ft. 2 in. (157.48 cm) (R); Pain 0/10; 07/29 03:16 BP 124 / 87; Pulse 87; Resp 17; Pulse Ox 100% on R/A; sm5 07/28 21:54 Body Mass Index 23.78 (58.97 kg, 157.48 cm) jb4 ED Course: 07/28 21:38 Patient arrived in ED. ja2 21:40 Faheem Stewart MD is Attending Physician. rn 21:56 Triage completed. jb4 21:56 Arm band placed on right wrist. jb4 22:39 Dayana Wall, RN is Primary Nurse. sm5 22:39 SARS-COV-2 RT PCR (Document "Date of Onset" if Symptomatic) Sent. sm5 22:42 Patient has correct armband on for positive identification. Placed in gown. Bed in low sm5 position. Valuables inventory done. Locked in safe. See valuables checklist. 22:42 No provider procedures requiring assistance completed. Inserted saline lock: 20 gauge sm5 in right antecubital area, using aseptic technique. Blood collected. 07/29 03:17 IV discontinued, intact, bleeding controlled, No redness/swelling at site. Pressure sm5 dressing applied. Administered Medications: No medications were administered Medication: 07/28 22:42 VIS not applicable for this client. 5 Outcome: 23:59 ER care complete, transfer ordered by MD. rn 07/29 03:03 Discharge ordered by MD. rn 03:17 Discharged to home ambulatory. sm5 03:17 Condition: stable 03:17 Discharge instructions given to patient, Instructed on discharge instructions, follow up and referral plans. Demonstrated understanding of instructions, follow-up care. 03:17 Patient left the ED. 5 Signatures: Faheem Stewart MD MD rn Bryson, James, RN RN [facility] Dayana Wall, BRUCE RN [facility]
--- NOTE | 2021-07-29 00:01 | EDPHYS ---
Physician Documentation [facility] Name: Efrem Pastor Age: 31 yrs Sex: Female : 1990 Arrival Date: 07/28/2021 Time: 21:38 Bed 20 Private MD: ED Physician Faheem Stewart HPI: 07/28 22:43 This 31 yrs old Female presents to ER via Ambulatory with complaints of suicidal rn ideations. 22:43 The patient presents to the emergency department with anxiety, depression, suicide rn ideation. Onset: The symptoms/episode began/occurred 2 week(s) ago. Associated signs and symptoms: Pertinent positives; anxiety, depression, suicide ideation, Pertinent negatives: hallucinations, homicidal ideation, paranoia. Severity of symptoms: At their worst the symptoms were moderate in the emergency department the symptoms are unchanged. The patient has experienced similar episodes in the past. Pt reports hx of anxiety and depression, got into argument with boyfriend krystin, has been having thoughts of hurting herself, doesn't feel like is actually going to hurt herself, but didn't know where else to go. No plan. Has abrasions to left arm but states from fall earlier and states did not cut herself intentionally. . 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 - Social history:: Smoking status: Patient/guardian denies using tobacco, Stopped _ months ago 4 Patient uses alcohol, only on a social basis. - Family history:: not pertinent. - Hospitalizations: : No recent hospitalization is reported. ROS: 22:43 Constitutional: Negative for fever, chills, and weight loss, Eyes: Negative for injury, rn pain, redness, and discharge, Neck: Negative for injury, pain, and swelling, Cardiovascular: Negative for chest pain, palpitations, and edema, Respiratory: Negative for shortness of breath, cough, wheezing, and pleuritic chest pain, Abdomen/GI: Negative for abdominal pain, nausea, vomiting, diarrhea, and constipation, Back: Negative for injury and pain, MS/Extremity: Negative for injury and deformity, Skin: + abrasions to left forearm Neuro: Negative for headache, weakness, numbness, tingling, and seizure, Psych: + depression/suicidal ideations Exam: 22:43 Constitutional: This is a well developed, well nourished patient who is awake, alert, rn crying Head/Face: Normocephalic, atraumatic. Cardiovascular: Regular rate and rhythm. No pulse deficits. Respiratory: No increased work of breathing, no retractions or nasal flaring. Abdomen/GI: Soft, non-tender Skin: Superficial abrasions to left inner forearm, 1 small superficial laceration. No foreign bodies. MS/ Extremity: Pulses equal, no cyanosis. Neurovascular intact. Full, normal range of motion. Equal circumference. Neuro: Awake and alert, GCS 15, oriented to person, place, time, and situation. Cranial nerves II-XII grossly intact. Motor strength 5/5 in all extremities. Sensory grossly intact. Cerebellar exam normal. Normal gait. Vital Signs: 21:54 BP 128 / 95; Pulse 100; Resp 16; Temp 97.8(TE); Pulse Ox 95% on R/A; Weight 58.97 kg jb4 (R); Height 5 ft. 2 in. (157.48 cm) (R); Pain 0/10; 07/29 03:16 BP 124 / 87; Pulse 87; Resp 17; Pulse Ox 100% on R/A; sm5 07/28 21:54 Body Mass Index 23.78 (58.97 kg, 157.48 cm) jb4 MDM: 07/28 21:40 Patient medically screened. rn 23:59 Differential diagnosis: depression, suicidal ideations. Data reviewed: vital signs, rn nurses notes, lab test result(s). ED course: Will call out chelsie stone for evaluation. . 07/29 03:00 ED course: Pt evaluated by Chelsie Stone, cleared to be discharged, patient still denies rn plan, has signed all paperwork and agreed to outpt f/u. Will dc home with psychiatric f/u per Chelsie Stone. . 07/28 22:01 Order name: Basic Metabolic Panel rn 07/28 22:01 Order name: CBC with Diff; Complete Time: 23:55 rn 07/28 22:01 Order name: ETOH Level; Complete Time: 23:55 rn 07/28 22:01 Order name: Hepatic Function 07/28 22:01 Order name: PT-INR; Complete Time: 23:55 rn 07/28 22:01 Order name: Ptt, Activated; Complete Time: 23:55 rn 07/28 22:01 Order name: Salicylate; Complete Time: 23:55 rn 07/28 22:01 Order name: Urine Drug Screen; Complete Time: 23:55 rn 07/28 22:01 Order name: EKG; Complete Time: 22:03 rn 07/28 22:01 Order name: SARS-COV-2 RT PCR (Document "Date of Onset" if Symptomatic); Complete Time: rn 23:55 07/28 22:25 Order name: Urine Dipstick-Ancillary; Complete Time: 23:55 EDMS 07/28 22:27 Order name: Urine --Ancillary (enter results) oe 07/29 00:14 Order name: ETOH Level sm5 07/28 22:01 Order name: EKG - Nurse/Tech; Complete Time: 22:39 rn 07/28 22:01 Order name: IV Saline Lock; Complete Time: 22:19 rn 07/28 22:01 Order name: Labs collected and sent; Complete Time: 22:39 rn 07/28 22:01 Order name: Suicide Precautions; Complete Time: 22:19 rn 07/28 22:01 Order name: Suicide Screening ([place]ard); Complete Time: 22:39 rn 07/28 22:01 Order name: Urine Dipstick-Ancillary (obtain specimen); Complete Time: 22:27 rn 07/28 22:01 Order name: Urine Test (obtain specimen); Complete Time: 22:27 07/29 01:30 Order name: Diet Finger Food; Complete Time: 01:30 [facility] Administered Medications: No medications were administered Disposition Summary: 07/29/21 03:03 Discharge Ordered Location: Home rn Problem: new(07/29/21 03:03) rn Symptoms: have improved(07/29/21 03:03) rn Condition: Stable(07/29/21 03:03) rn Diagnosis - Suicidal ideations(07/29/21 03:03) rn - Anxiety disorder, unspecified rn Followup: rn - With: Private Physician - When: As needed - Reason: Recheck today's complaints, Re-evaluation by your physician Discharge Instructions: - Discharge Summary Sheet rn - Suicidal Feelings: How to Help Yourself rn - Stress, Adult rn - Generalized Anxiety Disorder, Adult rn Forms: - Medication Reconciliation Form rn - Thank You Letter rn - Antibiotic advertising intern - Prescription Opioid Use rn Signatures: Dispatcher [employer] [facility] Faheem Stewart MD MD rn Bryson, James, RN RN jb4 Dayana Wall, RN RN sm5 Corrections: (The following items were deleted from the chart) 00:36 07/28 22:03 ACETAMINOPHEN+C.LAB.BRZ ordered. EDMO EDMO 07/29 03:01 07/28 23:59 DrJennifer rn rn 07/29 03:01 07/28 23:59 Psych Facility rn rn 07/29 03:01 07/28 23:59 Higher level of care rn rn 07/29 03:01 07/28 23:59 Stable rn rn 07/29 03:01 07/28 23:59 an ongoing problem rn rn 07/29 03:01 07/28 23:59 are unchanged rn rn 07/29 03:01 07/28 23:59 Suicidal ideations rn rn
[2021-07-29 00:28] LABS: Urine Specific Gravity/Preg 1.025 (1.005-1.030)
[2021-07-29 03:33] VITALS: TEMP 97.8
[2021-07-29 03:41] VITALS: BP 124/87; O2SAT 100
--- NOTE | 2021-07-29 11:50 | EKG ---
Test Date: 2021-07-28 Test Time: 22:29:24 Pear Picker: RON MEASUREMENT RESULTS: Intervals: Rate: 86 TN: 150 QRSD: 80 QT: 338 QTc: 404 [place]: P: 81 TN: 150 QRS: 57 T: 48 INTERPRETIVE STATEMENTS: Normal sinus rhythm Possible Left atrial enlargement Borderline ECG No previous ECG available for comparison Electronically Signed On 07-29-21 11:50:03 CDT by Darin Delatorre
== END 2021-07-29 03:17 | disposition home or self-care (01) ==
LOC: ER 21:35
DX: R45.851 Suicidal ideations (principal); F41.9 Anxiety disorder, unspecified; Z20.822 Contact with and (suspected) exposure to COVID-19; Z88.8 Allergy status to other drugs, medicaments and biological substances
CPT/HCPCS: 93005; 85025; 80048; 36415; 80320 ×2; 81025; 85610; 80329; 80076; 85730; 81003; 80307; U0003; 99283

== ENCOUNTER 2021-09-06 11:24 | Emergency (ER) | payer OTHER ==
[2021-09-06] MEDS ORDERED: MORPHINE 4 MG/ML SYR ONE (12:46)
[2021-09-06] MEDS ORDERED: ONDANSETRON 4 MG/2 ML VIAL ONE (12:46)
[2021-09-06 13:08] LABS: Absolute Lymphocytes (CBC) 1.6 K/uL (0.7-4.9); Hematocrit 39.9 % (36.0-45.0); Lymphocytes % 33.8 % (15.3-44.8); MCV 82.4 fL (80-100); MPV 10.7 fL (7.6-11.3); RBC Red Blood Cell Count 4.85 M/uL (3.86-4.86)
[2021-09-06 13:15] LABS: Albumin 3.8 g/dL (3.4-5.0); Potassium 3.8 mmol/L (3.5-5.1); Protein, Total 7.9 g/dL (6.4-8.2)
[2021-09-06 13:52] LABS: Urine Blood Negative (Negative); Urine Glucose Negative (Negative); Urine Protein Negative (Negative); Urine Specific Gravity 1.015 (1.005-1.030)
[2021-09-06] MEDS ORDERED: NA CHLORIDE 0.9% 1,000 ML ONE (14:31)
--- NOTE | 2021-09-06 14:44 | RAD REPORT ---
EXAM DESCRIPTION: CTAbdomen Pelvis W Contrast - 09/06/2021 2:33 pm CLINICAL HISTORY: Abdominal pain. diffuse abdominal pain COMPARISON: Abdomen Pelvis W Contrast dated 03/29/2021 TECHNIQUE: Biphasic CT imaging of the abdomen and pelvis was performed with 100 ml non-ionic IV cont rast. All CT scans are performed using dose optimization technique as appropriate and may include automated exposure control or mA/KV adjustment according to patient size. FINDINGS: The lung bases are clear.Cholecystectomy clips. The liver, spleen, pancreas, adrenal glands and left kidney are within normal limits. Multiple areas of scarring are present right kidney. No bowel obstruction, free air, free fluid or abscess. The appendix is normal. No evidence of signi ficant lymphadenopathy. Trace pelvic free fluid. No suspicious bony findings. IMPRESSION: No acute intra-abdominal or pelvic finding.
[2021-09-06 14:48] LABS: Urine Specific Gravity/Preg 1.015 (1.005-1.030)
--- NOTE | 2021-09-06 14:57 | ER ---
Nurse's Notes [facility] Name: Efrem Pastor Age: 31 yrs Sex: Female : 1990 Arrival Date: 09/06/2021 Time: 11:26 Bed DIS2 Private MD: Diagnosis: Gastroparesis Presentation: 09/06 12:27 Chief complaint: Patient states: i have gastroparesis and for the last two days i've iw had vomiting diarrhea and abd pain. Coronavirus screen: Client presents with at least one sign or symptom that may indicate coronavirus-19. Ebola Screen: Patient negative for fever greater than or equal to 101.5 degrees Fahrenheit, and additional compatible Ebola Virus Disease symptoms Patient denies exposure to infectious person. Patient denies travel to an Ebola-affected area in the 21 days before illness onset. No symptoms or risks identified at this time. Initial Sepsis Screen: Does the patient meet any 2 criteria? No. Patient's initial sepsis screen is negative. Does the patient have a suspected source of infection? No. Patient's initial sepsis screen is negative. Risk Assessment: Do you want to hurt yourself or someone else? Patient reports no desire to harm self or others. Onset of symptoms was September 04, 2021. 12:27 Method Of Arrival: Ambulatory iw 12:27 Acuity: BELINDA 3 iw Triage Assessment: 12:30 General: Appears in no apparent distress. Behavior is calm, cooperative. GI: Reports iw lower abdominal pain, upper abdominal pain. 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 - Social history:: Smoking status: Reported history of juuling and/or vaping. Screenin:31 Abuse screen: Denies threats or abuse. Denies injuries from another. Nutritional iw screening: No deficits noted. Tuberculosis screening: No symptoms or risk factors identified. Fall Risk IV access (20 points). Assessment: 12:30 General: Appears in no apparent distress. comfortable, Behavior is calm, cooperative. iw Pain: Complains of pain in abdomen diffusely. Neuro: Vargas Agitation-Sedation Scale (RASS): Level of Consciousness is awake, alert, obeys commands, Oriented to person, place, time, situation, Moves all extremities. Full function. Cardiovascular: Patient's skin is warm and dry. Respiratory: Respiratory effort is even, unlabored, Respiratory pattern is regular. GI: Abdomen is non-distended. GI: Reports lower abdominal pain, upper abdominal pain, nausea. Derm: Skin is intact, is healthy with good turgor. Musculoskeletal: Range of motion: intact in all extremities. 14:30 Reassessment: Patient appears in no apparent distress at this time. Patient and/or iw family updated on plan of care and expected duration. Pain level reassessed. Patient is alert, oriented x 3, equal unlabored respirations, skin warm/dry/pink. 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 Vital Signs: 12:27 BP 118 / 78; Pulse 79; Resp 16; Temp 97.9; Pulse Ox 100% on R/A; Weight 58.97 kg; iw Height 5 ft. 2 in. (157.48 cm); 12:27 Body Mass Index 23.78 (58.97 kg, 157.48 cm) iw ED Course: 11:26 Patient arrived in ED. rg4 12:04 [facility] jh7 12:04 Billy Juarez MD is Attending Physician. jh7 12:28 Triage completed. iw 12:29 Arm band placed on. iw 12:30 Patient has correct armband on for positive identification. iw 12:45 Inserted saline lock: 22 gauge in right antecubital area, using aseptic technique. iw 14:20 Lynnette Malik, RN is Primary Nurse. iw 14:35 CT Abd/Pelvis - IV Contrast Only In Process Unspecified. EDMS 14:56 Luis Wen MD is Referral Physician. jh7 15:30 No provider procedures requiring assistance completed. IV discontinued, intact, iw bleeding controlled, No redness/swelling at site. Pressure dressing applied. Administered Medications: 12:45 Drug: Zofran (Ondansetron) 4 mg Route: IVP; Site: right antecubital; iw 13:00 Follow up: Response: No adverse reaction iw 12:45 Drug: morphine 4 mg Route: IVP; Infused Over: 4 mins; Site: right antecubital; iw 13:15 Follow up: Response: No adverse reaction; Pain is decreased iw 14:10 Drug: NS 0.9% 1000 ml Route: IV; Rate: 1 bolus; Site: right antecubital; iw 15:15 Follow up: IV Status: Completed infusion iw 15:14 Drug: fentaNYL (PF) 50 mcg Route: IVP; Site: right antecubital; iw 15:40 Follow up: Response: No adverse reaction; Pain is decreased iw 15:14 Drug: Phenergan (promethazine) 12.5 mg Route: IVP; Site: right antecubital; iw 15:30 Follow up: Response: (VIS) Vaccine information sheet provided today. Questions and/or iw concerns addressed. VIS edition date: Sep 14, 2020.; Nausea is decreased Medication: 12:45 VIS not applicable for this client. iw Outcome: 14:57 Discharge ordered by jh7 15:30 Discharged to home ambulatory, with family. iw 15:30 Condition: good 15:30 Discharge instructions given to patient, Instructed on discharge instructions, follow up and referral plans. Demonstrated understanding of instructions, follow-up care. 15:31 Patient left the ED. iw Signatures: Dispatcher [employer] Lynnette Woodruff RN RN iw Garcia, Rubi rg4 Tisha Hunter FNP JUSTINE 7
--- NOTE | 2021-09-06 14:57 | EDPHYS ---
Physician Documentation [facility] Name: Efrem Pastor Age: 31 yrs Sex: Female : 1990 Arrival Date: 09/06/2021 Time: 11:26 Bed DIS2 Private MD: ED Physician Billy Juarez HPI: 09/06 12:30 This 31 yrs old Female presents to ER via Ambulatory with complaints of Nausea, jh7 Vomiting. 12:30 The patient presents to the emergency department with nausea, vomiting, abdominal pain, jh7 of the abdomen diffusely. Patient reports that her gastroparesis has been acting up the past several days. States that this normally Happens when she is under a lot of stress. Denies fever.. 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 - Social history:: Smoking status: Reported history of juuling and/or vaping. ROS: 12:28 Constitutional: Negative for fever, chills, and weight loss, Eyes: Negative for injury, jh7 pain, redness, and discharge, Cardiovascular: Negative for chest pain, palpitations, and edema, Respiratory: Negative for shortness of breath, cough, wheezing, and pleuritic chest pain, Back: Negative for injury and pain, Skin: Negative for injury, rash, and discoloration, Neuro: Negative for headache, weakness, numbness, tingling, and seizure. 12:28 Abdomen/GI: Positive for abdominal pain, nausea and vomiting, Negative for diarrhea, black/tarry stool. 12:28 All other systems are negative. Exam: 12:28 Eyes: Pupils equal round and reactive to light, extra-ocular motions intact. Lids and jh7 lashes normal. Conjunctiva and sclera are non-icteric and not injected. Cornea within normal limits. Periorbital areas with no swelling, redness, or edema. Cardiovascular: Regular rate and rhythm with a normal S1 and S2. No gallops, murmurs, or rubs. Normal PMI, no JVD. No pulse deficits. Respiratory: Lungs have equal breath sounds bilaterally, clear to auscultation and percussion. No rales, rhonchi or wheezes noted. No increased work of breathing, no retractions or nasal flaring. Back: No spinal tenderness. No costovertebral tenderness. Full range of motion. Skin: Warm, dry with normal turgor. Normal color with no rashes, no lesions, and no evidence of cellulitis. MS/ Extremity: Pulses equal, no cyanosis. Neurovascular intact. Full, normal range of motion. Neuro: Awake and alert, GCS 15, oriented to person, place, time, and situation. Normal gait. 12:28 Constitutional: The patient appears alert, awake, uncomfortable. 12:28 Abdomen/GI: Inspection: abdomen appears normal, Bowel sounds: normal, Palpation: soft, mild abdominal tenderness, in the abdomen diffusely. Vital Signs: 12:27 BP 118 / 78; Pulse 79; Resp 16; Temp 97.9; Pulse Ox 100% on R/A; Weight 58.97 kg; iw Height 5 ft. 2 in. (157.48 cm); 12:27 Body Mass Index 23.78 (58.97 kg, 157.48 cm) iw MDM: 14:08 [facility] medically screened. [facility] 15:45 Differential diagnosis: Nonspecific abd pain, gastritis, viral gastroenteritis. Data [facility] reviewed: vital signs, nurses notes, lab test result(s), radiologic studies, CT scan. Data interpreted: Pulse oximetry: is 100 %. Interpretation: normal. 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 Counseling: I had a detailed discussion with the patient and/or guardian regarding: to return to the emergency department if symptoms worsen or persist or if there are any questions or concerns that arise at home. Response to treatment: the patient's symptoms have markedly improved after treatment. 09/06 12:35 Order name: CBC with Diff; Complete Time: 13:19 [facility] 09/06 12:35 Order name: CMP; Complete Time: 13:19 [facility] 09/06 12:35 Order name: Lipase; Complete Time: 13:19 [facility] 09/06 12:35 Order name: Urine Microscopic Only; Complete Time: 17:02 [facility] 09/06 13:53 Order name: Urine Dipstick-Ancillary; Complete Time: 14:11 EDMS 09/06 13:54 Order name: Urine --Ancillary (enter results); Complete Time: 14:55 eb 09/06 12:35 Order name: IV Saline Lock; Complete Time: 14:20 [facility] 09/06 12:35 Order name: Labs collected and sent; Complete Time: 14:20 [facility] 09/06 14:16 Order name: CT Abd/Pelvis - IV Contrast Only; Complete Time: 14:55 [facility] 09/06 12:35 Order name: Urine Dipstick-Ancillary (obtain specimen); Complete Time: 14:20 [facility] 09/06 12:35 Order name: Urine Test (obtain specimen); Complete Time: 14:22 [facility] Administered Medications: 12:45 Drug: Zofran (Ondansetron) 4 mg Route: IVP; Site: right antecubital; iw 13:00 Follow up: Response: No adverse reaction iw 12:45 Drug: morphine 4 mg Route: IVP; Infused Over: 4 mins; Site: right antecubital; iw 13:15 Follow up: Response: No adverse reaction; Pain is decreased iw 14:10 Drug: NS 0.9% 1000 ml Route: IV; Rate: 1 bolus; Site: right antecubital; iw 15:15 Follow up: IV Status: Completed infusion iw 15:14 Drug: fentaNYL (PF) 50 mcg Route: IVP; Site: right antecubital; iw 15:40 Follow up: Response: No adverse reaction; Pain is decreased iw 15:14 Drug: Phenergan (promethazine) 12.5 mg Route: IVP; Site: right antecubital; iw 15:30 Follow up: Response: (VIS) Vaccine information sheet provided today. Questions and/or iw concerns addressed. VIS edition date: Sep 14, 2020.; Nausea is decreased Disposition Summary: 09/06/21 14:57 Discharge Ordered [facility] Problem: chronic [facility] Symptoms: have improved [facility] Condition: Stable [facility] Diagnosis - Gastroparesis jh7 [facility]up: [facility] - With: Luis Wen MD - When: 2 - 3 days - Reason: Recheck today's complaints Discharge Instructions: - Discharge Summary Sheet [facility] - Gastroparesis [facility] Forms: - Medication Reconciliation Form [facility] - Thank You Letter [facility] - Work release form Signatures: Dispatcher Lynnette Esquivel RN RN iw Tisha Hunter FNP FNP [facility]
[2021-09-06] MEDS ORDERED: PROMETHAZINE INJ 25 MG/ML AMP ONE (15:11)
[2021-09-06] MEDS ORDERED: FENTANYL CITR 100 MCG/2 ML ONE (15:12)
[2021-09-06 15:16] LABS: Urine Bacteria <20 /HPF (<20); Urine RBC <5 /HPF (None Seen)
[2021-09-06 17:18] VITALS: BP 118/78; TEMP 97.9; O2SAT 100
== END 2021-09-06 15:31 | disposition home or self-care (01) ==
LOC: ER 11:24
DX: K31.84 Gastroparesis (principal); Z88.8 Allergy status to other drugs, medicaments and biological substances
CPT/HCPCS: 85025; 36415; 81025; 83690; 80053; 74177; Q9967; J2550; J3010; J7030; J2405; 81003; 81015; 96361; 96374; 96375; 99283

== ENCOUNTER 2021-10-25 13:20 | Emergency (ER) | payer OTHER ==
--- OUTSIDE RECORDS SUMMARY | 2021-10-25 13:25 | XMS REPORT | Continuity of Care Document ---
:1990 Author Organization [facility] t Address [address] [place] [address] Care Team Providers Name Role Phone Kaelyn Peguero Attending Clinician Unavailable Physician, No Primary or Family Admitting Clinician Unavaila ble Payers Payer Name Policy Type Policy Number Effective Date Expiration Date S ource Problems This patient has no known problems. Allergies, Adverse Reactions, Alerts Allergy Allergy Status Severity Reaction(s) Onset Inactive Treating Comm ents Source Name Type Date Date Clinician No Known DA Active U 0 [facility] No Known DA Active U 0 [facility] 06-24 [facility] No Known DA Active U [facility] -[facility] scopolam DA Active CO 2020-0 [facility] ine -10 [facility] scopolam DA Active CO [facility] 4-10 [facility] No Known DA Active U [facility] 6-20 [facility] No Known DA Active U [facility] 6-20 [facility] No Known DA Active U [facility] 9-15 [facility] No Known DA Active U NONE [facility] Drug 9-15 [facility] Medications This patient has no known medications. Procedures This patient has no known procedures. Encounters Start End Encounter Admission Attending Care Care Encounter Source Date/Time Date/Time Type Type Clinicians Facility Department ID 2020-06-24 Inpatient [facility] [id number] [facility] 2020[facility]-19 In[facility] [id number] [facility] 2019-07-30 Inpatient [facility] ER [id number] [facility]:08[facility] 2021-02-09 2021-02-10 Emergency EM Peguero, [facility] ER [id number] [facility] 23:10:00 00:19:00 [facility] Results Test Description [...] = 60 ml/mi n/1.73M2IF PATIENT IS AFRI CAN-DANISH, MULTIPLY REPORT ED RESULT BY1.21. [Automa ashley message] The system [employer] generated this result tra nsmitted reference range [...] U/L 45-117 H (test code = ALKP) [id number] 16:11:00 Test Item Value Reference Range Interpretation Comments LIPASE (test code = LIP) 108 U/L 73-393 N URINALYSIS W REFLEX [id number] 16:05:00 Test Item Value Reference Range Interpretation [...] UA MICRO code = UAMICRO) UR HCG [id number] 16:05:00 Test Item Value Reference Range Interpretation Comments UR HCG QUAL (test code = HCGQLU) NEGATIVE NEGATIVE URINALYSIS W REFLEX [id number] 16:05:00 Test Item Value Reference Range Interpretation [...] DO UA MICRO code = UAMICRO) UA [id number] 16:05:00 Test Item Value Reference Range Interpretation Comments UA WBC (test code = WBCU) 0-2 #/hpf 0-5 UA RBC (test code = RBCU) 0-2 #/hpf 0-5 UA EPITHELIAL CELLS (test code = 2+ /hpf NEG,FEW A EPIU) UA BACTERIA (test code = BACU) FEW /hpf NEGATIVE A UA AMORPHOUS SEDIMENT (test code = FEW /hpf NEG,FEW AMORU) UR HCG [id number] 16:05:00 Test Item Value Reference Range Interpretation Comments UR HCG QUAL (test code = HCGQLU) NEGATIVE NEGATIVE URINALYSIS W REFLEX [id number] 16:05:00 Test Item Value Reference Range Interpretation [...] UA MICRO code = UAMICRO) UR HCG [id number] 16:05:00 Test Item Value Reference Range Interpretation Comments UR HCG QUAL (test code = HCGQLU) NEGATIVE NEGATIVE DRUGS OF ABUSE [id number] 16:01:00 Test Item Value Reference Range Interpretation Comments UR COCAINE (test code NEGATIVE ng/ml NEGATIVE = COCAU) UR CANNABINOIDS (test POSITIVE ng/ml NEGATIVE A DALY UE EXCEEDS code = CANU) CRITICAL LEVEL. CRITICAL VALUE CALLEDTO AND CRITICAL VALUE READ BACK BY HUBER DOWNING RN 1 601 06/24/20. Chas Dixon POSITIVE URINE DRUG SCREEN [...] code = WAS TESTE D AT THE [facility]) LISTED CUTOFFS DRUG CLASS INIT IAL TEST LEVEL AMPHETAMINES 10 00 NG/MLBARBITURAT ES 200 NG/MLBENZODIAZE PIN ES 200 NG/MLCOCAINE METABOLITE 300 NG/MLMARIJUANA METABOLITE 50 NG/MLOPIATES 30 0 NG/MLPHENCYCLID INE 25 NG/ML UR HCG [id number] 15:58:00 Test Item Value Reference Range Interpretation Comments UR HCG QUAL (test code = HCGQLU) NEGATIVE NEGATIVE URINALYSIS W REFLEX [id number] 15:58:00 Test Item Value Reference Range Interpretation [...] UA MICROSCOPIC NEEDED? (test code = UAMICRO) CBC W/AUTO [id number] 15:52:00 Test Item Value Reference Range Interpretation [...] NORMAL code = RBCM) URINALYSIS W REFLEX [id number] 13:00:00 Test Item Value Reference Range Interpretation [...] MICRO code = UAMICRO) UA ICTOTEST FOR [id number] 13:00:00 Test Item Value Reference Range Interpretation Comments UA ICTOTEST FOR BILIRUBIN (test code POSITIVE NEGATIVE A = ICTOU) UA [id number] 13:00:00 Test Item Value Reference Range Interpretation Comments UA WBC (test code = WBCU) 0-2 #/hpf 0-5 UA RBC (test code = RBCU) 3-5 #/hpf 0-5 UA EPITHELIAL CELLS (test code = FEW /hpf NEG,FEW EPIU) UA BACTERIA (test code = BACU) FEW /hpf NEGATIVE A UA MUCUS (test code = MUCU) 1+ /hpf NEG,FEW A UR HCG [id number] 13:00:00 Test Item Value Reference Range Interpretation Comments UR HCG QUAL (test code = HCGQLU) NEGATIVE NEGATIVE DRUGS OF ABUSE [id number] 12:57:00 Test Item Value Reference Range Interpretation [...] code = WAS TESTE D AT THE [facility]) LISTED CUTOFFS DRUG CLASS INIT IAL TEST LEVEL AMPHETAMINES 10 00 NG/MLBARBITURAT ES 200 NG/MLBENZODIAZE PIN ES 200 NG/MLCOCAINE METABOLITE 300 NG/MLMARIJUANA METABOLITE 50 NG/MLOPIATES 30 0 NG/MLPHENCYCLID INE 25 NG/ML URINALYSIS W REFLEX [id number] 12:56:00 Test Item Value Reference Range Interpretation [...] MICRO code = UAMICRO) UA ICTOTEST FOR [id number] 12:56:00 Test Item Value Reference Range Interpretation Comments UA ICTOTEST FOR BILIRUBIN (test code POSITIVE NEGATIVE A = ICTOU) UR HCG [id number] 12:56:00 Test Item Value Reference Range Interpretation Comments UR HCG QUAL (test code = HCGQLU) NEGATIVE NEGATIVE URINALYSIS W REFLEX [id number] 12:53:00 Test Item Value Reference Range Interpretation [...] UA MICRO code = UAMICRO) UR HCG [id number] 12:53:00 Test Item Value Reference Range Interpretation Comments UR HCG QUAL (test code = HCGQLU) NEGATIVE NEGATIVE URINALYSIS W REFLEX [id number] 12:53:00 Test Item Value Reference Range Interpretation [...] UA MICRO code = UAMICRO) UR HCG [id number] 12:53:00 Test Item Value Reference Range Interpretation Comments UR HCG QUAL (test code = HCGQLU) NEGATIVE NEGATIVE - XR ABDOMEN [id number] 12:16:00 [facility] 1990 Sex: F FAX: Sawyer Cent[facility] II [place]: St: PRE Name: BREANNA QUEEN FSED : 1990 Age/S: 30/F [address]: [id number] Loc: [place] [address] Phys: Sawyer [facility] II, MD Acct: [id number] Dis Date: Status: PRE ER PHONE #: Exam Date: 05/19/2020 1212 FAX #: Reason: abdominal pain EXAMS: CPT CODE: [id number] XR ABDOMEN 2V 68028 - XR ABDOMEN 2V PROVIDED REASON FOR EXAM: abdominal pain COMPARISON:None available. FINDINGS: Bowel gas pattern is non-obstructive. No abnormal calcifications or soft tissue masses. No acute fracture or subluxation. Regional soft tissues are unremarkable. Surgical clips of the right upper abdomen. Relative paucity of bowel gas. IMPRESSION: No acute process. Location: V20 at 1216 Reported and signed by: DEVANTE CABALLERO M.D. CC: Technologist: RT Bekah (R) CT Trnscrd Date/Time/By: 05/19/2020 (1216) : By: [email or web address] Orig Print D/T: S: 05/19/2020 (8575) PAGE 1 Signed ReportBASIC METABOLIC PANEL 2020-05-19 12:08:00 Test Item Value Reference Range Interpretation [...] RESULT BY1.21. [Automated mess age] The system [employer] generated this result transmitted ref erence range: >=60. Th e reference range was not used to int erpret this result as normal/abnormal . CREATININE (test code 0.64 mg/dl 0.55-1.02 N = CREAT) CALCIUM (test code = 9.8 mg/dL 8.5-10.1 N CA) LIVER [id number] 12:08:00 Test Item Value Reference Range Interpretation [...] 119 U/L 45-117 H code = ALKP) [id number] 12:08:00 Test Item Value Reference Range Interpretation Comments LIPASE (test code = LIP) 67 U/L 73-393 L CBC W/AUTO [id number] 11:43:00 Test Item Value Reference Range Interpretation [...] NORMAL code = RBCM) URINALYSIS W REFLEX [id number] 22:06:00 Test Item Value Reference Range Interpretation [...] MUCU) 2+ /hpf NEG,FEW A BASIC METABOLIC [id number] 21:54:00 Test Item Value Reference Range Interpretation [...] -JAYSON N, MULTIPLY REPORT ED RESULT BY1. CREATININE (test code 0.70 mg/dL 0.51-0.95 N = CREAT) CALCIUM (test code = 9.3 mg/dL 8.5-10.1 N CA) LIVER [id number] 21:54:00 Test Item Value Reference Range Interpretation [...] 69 U/L 50-136 N code = ALKP) [id number] 21:54:00 Test Item Value Reference Range Interpretation Comments LIPASE (test code = LIP) 63 U/L 73-393 L BASIC METABOLIC [id number] 21:53:00 Test Item Value Reference Range Interpretation [...] -JAYSON N, MULTIPLY REPORT ED RESULT BY1. CREATININE (test code 0.70 mg/dL 0.51-0.95 N = CREAT) CALCIUM (test code = 9.3 mg/dL 8.5-10.1 N CA) LIVER [id number] 21:53:00 Test Item Value Reference Range Interpretation [...] TOTAL (test U/L 50-136 code = ALKP) [id number] 21:53:00 Test Item Value Reference Range Interpretation Comments LIPASE (test code = LIP) 63 U/L 73-393 L BASIC METABOLIC [id number] 21:52:00 Test Item Value Reference Range Interpretation [...] = 9.3 mg/dL 8.5-10.1 N CA) LIVER [id number] 21:52:00 Test Item Value Reference Range Interpretation [...] TOTAL (test U/L 50-136 code = ALKP) [id number] 21:52:00 Test Item Value Reference Range Interpretation Comments LIPASE (test code = LIP) 63 U/L 73-393 L BASIC METABOLIC [id number] 21:51:00 Test Item Value Reference Range Interpretation [...] = 9.3 mg/dL 8.5-10.1 N CA) LIVER [id number] 21:51:00 Test Item Value Reference Range Interpretation [...] TOTAL (test U/L 50-136 code = ALKP) [id number] 21:51:00 Test Item Value Reference Range Interpretation Comments LIPASE (test code = LIP) 63 U/L 73-393 L BASIC METABOLIC [id number] 21:49:00 Test Item Value Reference Range Interpretation [...] = CA) 9.3 mg/dL 8.5-10.1 N LIVER [id number] 21:49:00 Test Item Value Reference Range Interpretation [...] TOTAL (test U/L 50-136 code = ALKP) [id number] 21:49:00 Test Item Value Reference Range Interpretation Comments LIPASE (test code = LIP) 63 U/L 73-393 L BASIC METABOLIC [id number] 21:48:00 Test Item Value Reference Range Interpretation [...] = CA) 9.3 mg/dL 8.5-10.1 N LIVER [id number] 21:48:00 Test Item Value Reference Range Interpretation Comments TOTAL PROTEIN (test code = PROT) g/dl 6.4-8.2 ALBUMIN (test code = ALB) g/dl 3.4-5.0 BILIRUBIN TOTAL (test code = BILT) mg/dl 0.2-1.0 BILIRUBIN DIRECT (test code = BILD) mg/dl 0.0-0.4 SGOT/AST (test code = AST) U/L 15-37 SGPT/ALT (test code = ALT) U/L 12-78 ALKALINE PHOSPHATASE TOTAL (test code U/L 50-136 = ALKP) [id number] 21:48:00 Test Item Value Reference Range Interpretation Comments LIPASE (test code = LIP) U/L 73-393 BASIC METABOLIC [id number] 21:46:00 Test Item Value Reference Range Interpretation [...] (test code = CA) mg/dL 8.5-10.1 LIVER [id number] 21:46:00 Test Item Value Reference Range Interpretation Comments TOTAL PROTEIN (test code = PROT) g/dl 6.4-8.2 ALBUMIN (test code = ALB) g/dl 3.4-5.0 BILIRUBIN TOTAL (test code = BILT) mg/dl 0.2-1.0 BILIRUBIN DIRECT (test code = BILD) mg/dl 0.0-0.4 SGOT/AST (test code = AST) U/L 15-37 SGPT/ALT (test code = ALT) U/L 12-78 ALKALINE PHOSPHATASE TOTAL (test code U/L 50-136 = ALKP) [id number] 21:46:00 Test Item Value Reference Range Interpretation Comments LIPASE (test code = LIP) U/L 73-393 CBC W/AUTO [id number] 21:43:00 Test Item Value Reference Range Interpretation [...]
[2021-10-25] MEDS ORDERED: ONDANSETRON 4 MG/2 ML VIAL ONE ×2 (14:58→18:38)
[2021-10-25] MEDS ORDERED: NA CHLORIDE 0.9% 1,000 ML ONE (14:58)
[2021-10-25] MEDS ORDERED: FAMOTIDINE 20 MG/2 ML VIAL IV ONE (14:58)
[2021-10-25 15:08] LABS: Urine Blood Negative (Negative); Urine Glucose Negative (Negative); Urine Protein 3+ (Negative); Urine Specific Gravity 1.015 (1.005-1.030); Urine pH 8.5 (5.0-7.0)
[2021-10-25 15:27] LABS: Absolute Lymphocytes (CBC) 0.8 K/uL (0.7-4.9); Lymphocytes % 10.5 % (15.3-44.8); MCV 81.4 fL (80-100); MPV 10.6 fL (7.6-11.3); RBC Red Blood Cell Count 5.03 M/uL (3.86-4.86)
[2021-10-25 15:38] LABS: Albumin 4.2 g/dL (3.4-5.0); Bilirubin Total 0.6 mg/dL (0.2-1.0); Potassium 3.5 mmol/L (3.5-5.1); Protein, Total 8.2 g/dL (6.4-8.2)
[2021-10-25] MEDS ORDERED: MORPHINE 2 MG/ML SYR ONE ×2 (15:42→17:14)
[2021-10-25 16:22] LABS: Barbiturates NEGATIVE (NEGATIVE); Benzodiazepines NEGATIVE (NEGATIVE); Cocaine NEGATIVE (NEGATIVE); METHAMPHETAM NEGATIVE (NEGATIVE); Methadone NEGATIVE (NEGATIVE); Opiates NEGATIVE (NEGATIVE); Phencyclidine NEGATIVE (NEGATIVE); THC Cannibis POSITIVE (NEGATIVE)
[2021-10-25] MEDS ORDERED: PROMETHAZINE INJ 25 MG/ML AMP ONE ×2 (17:13→21:26)
--- NOTE | 2021-10-25 21:43 | RAD REPORT ---
EXAM DESCRIPTION: CTAbdomen Pelvis W Contrast - 10/25/2021 9:25 pm CLINICAL HISTORY: abdominal pain COMPARISON: Abdomen Pelvis W Contrast dated 09/06/2021; Abdomen Pelvis W Contrast dated 03/29/2021 TECHNIQUE: CT of the abdomen and pelvis was performed. All CT scans are performed using dose optimization technique as appropriate and may include automated exposure control or mA/KV adjustment according to patient size. FINDINGS: Lower chest: No acute abnormality. Liver: No acute abnormality or suspicious lesions. Biliary: No biliary ductal dilatation. Cholecystectomy Stomach: No significant focal abnormality. Duodenum: No significant focal abnormality. Pancreas: No significant abnormality. Spleen: No significant abnormality. Adrenal: No suspicious lesions. Kidney/ureter: No hydronephrosis. No renal calculi. Right renal scarring. Retroperitoneum: No retroperitoneal adenopathy. Vascular: No aneurysm. Bowel: No significant focal abnormality. Normal appendix. Peritoneum: No ascites or free air. Bladder: Grossly unremarkable. Reproductive: No adnexal masses. Bones: No acute fracture. Other: n/a IMPRESSION: No acute intra-abdominal or pelvic finding. Normal appendix.
[2021-10-25 22:15] LABS: Urine Specific Gravity/Preg 1.015 (1.005-1.030)
[2021-10-25] MEDS ORDERED: LORazepam 2 MG/ML VIAL ONE (23:08)
--- NOTE | 2021-10-25 23:48 | EDPHYS ---
Physician Documentation [facility] Name: Efrem Pastor Age: 31 yrs Sex: Female : 1990 Arrival Date: 10/25/2021 Time: 13:21 Bed 16 Private MD: Kelton Daniels ED Physician Willie Akbar HPI: 10/25 15:00 This 31 yrs old Female presents to ER via Ambulatory with complaints of Abdominal Pain, cp Nausea/Vomiting. 15:00 The patient presents with abdominal pain that is diffuse. Onset: The symptoms/episode cp began/occurred this morning. Associated signs and symptoms: Pertinent positives: nausea and vomiting, anorexia, Pertinent negatives: blood in stools, constipation, diarrhea, dysuria, fever. The symptoms are described as constant. Severity of pain: in the emergency department the pain is unchanged despite home interventions. The patient has experienced similar episodes in the past, multiple times, today's symptoms are similar, to previous flare up of gastroparesis. 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 - Social history:: Smoking status: Reported history of juuling and/or vaping. ROS: 15:08 Eyes: Negative for injury, pain, redness, and discharge. cp 15:08 Constitutional: Positive for poor PO intake, Negative for chills, fever. 15:08 Cardiovascular: Negative for chest pain. 15:08 Respiratory: Negative for cough, shortness of breath, wheezing. 15:08 Abdomen/GI: Positive for abdominal pain, nausea and vomiting, anorexia, Negative for hematemesis. 15:08 : Negative for urinary symptoms. 15:08 Neuro: Negative for altered mental status, headache. 15:08 All other systems are negative. Exam: 15:15 Head/Face: Normocephalic, atraumatic. cp 15:15 Constitutional: The patient appears in no acute distress, alert, awake, non-toxic, well developed, well nourished, uncomfortable. 15:15 Eyes: Periorbital structures: appear normal, Conjunctiva: normal, no exudate, no injection, Sclera: no appreciated abnormality, Lids and lashes: appear normal, bilaterally. 15:15 ENT: External ear(s): are unremarkable, Nose: is normal, Mouth: Lips: moist, Oral mucosa: pink and intact, moist, Posterior pharynx: Airway: no evidence of obstruction, patent. 15:15 Chest/axilla: Inspection: normal, Palpation: is normal, no crepitus, no tenderness. 15:15 Cardiovascular: Rate: normal, Rhythm: regular. 15:15 Respiratory: the patient does not display signs of respiratory distress, Respirations: normal, no use of accessory muscles, no retractions, labored breathing, is not present, Breath sounds: are clear throughout, no decreased breath sounds, no stridor, no wheezing. 15:15 Abdomen/GI: Inspection: abdomen appears normal, Bowel sounds: active, all quadrants, Palpation: soft, in all quadrants, severe abdominal tenderness, in all quadrants, rebound tenderness, is not appreciated, voluntary guarding, is elicited in all quadrants. 15:15 Back: CVA tenderness, is absent. 15:15 Neuro: Orientation: to person, place \T\ time. Mentation: is normal, Cerebellar function: is grossly normal, Motor: moves all fours, strength is normal. Vital Signs: 14:17 BP 139 / 115; Pulse 85; Resp 20; Pulse Ox 99% on R/A; Weight 58.97 kg; Height 5 ft. 2 kr3 in. (157.48 cm); Pain 10/10; 14:24 Temp 97.8; kr3 15:30 BP 137 / 104; Pulse 76; Resp 14 S; Pulse Ox 100% ; Pain 10/10; jg9 16:15 BP 125 / 99; Pulse 70; Resp 12 S; Pulse Ox 100% ; Pain 5/10; jg9 16:45 BP 132 / 90; Pulse 103; Resp 12 S; Pulse Ox 100% on R/A; Pain 7/10; jg9 17:00 BP 129 / 90; Pulse 80; Resp 16 S; Pulse Ox 99% on R/A; jg9 18:25 BP 136 / 101; Pulse 83; Resp 10 S; Pulse Ox 100% ; jg9 10/26 00:10 BP 130 / 101; Pulse 79; Resp 20; Pulse Ox 100% on R/A; ja4 10/25 14:17 Body Mass Index 23.78 (58.97 kg, 157.48 cm) kr3 MDM: 10/25 14:41 Patient medically screened. cp 17:24 Refusal of service: The patient/guardian displays adequate decision making capability cp and despite a detailed discussion of alternatives, benefits, risks, and consequences refuses: CT Scan. 23:45 Differential diagnosis: appendicitis, bowel obstruction, cholecystitis, Cholelithiasis, cp non-specific abd pain, pancreatitis, urinary tract infection. Data reviewed: vital signs, nurses notes, lab test result(s), radiologic studies, CT scan. Counseling: I had a detailed discussion with the patient and/or guardian regarding: the historical points, exam findings, and any diagnostic results supporting the discharge/admit diagnosis, lab results, radiology results, to return to the emergency department if symptoms worsen or persist or if there are any questions or concerns that arise at home. Response to treatment: the patient's symptoms have markedly improved after treatment, Pain and nausea markedly improved, vomiting resolved. Will discharge to home for continued monitoring. 10/25 14:21 Order name: CBC with Diff; Complete Time: 17:03 cp 10/25 17:23 Interpretation: Normal except: RBC 5.03; RDW 15.6; KIMBERLY% 84.1; LYM% 10.5. cp 10/25 14:21 Order name: CMP; Complete Time: 17:03 cp 10/25 17:23 Interpretation: Normal except: GLUC 132. cp 10/25 14:21 Order name: Lipase; Complete Time: 17:03 cp 10/25 14:21 Order name: Urine Microscopic Only; Complete Time: 17:03 cp 10/25 15:07 Order name: Urine --Ancillary (enter results); Complete Time: 22:41 em1 10/25 15:08 Order name: Urine Dipstick-Ancillary; Complete Time: 17:03 EDMS 10/25 17:23 Interpretation: Normal except: UPH 8.5; UPROT 3+. 10/25 15:24 Order name: UDS; Complete Time: 17:03 10/25 20:08 Order name: CT Abd/Pelvis - IV Contrast Only; Complete Time: 21:50 10/25 21:50 Interpretation: Report reviewed. 10/25 14:21 Order name: IV Saline Lock; Complete Time: 14:55 10/25 14:21 Order name: Labs collected and sent; Complete Time: 14:56 10/25 14:21 Order name: Urine Dipstick-Ancillary (obtain specimen); Complete Time: 15:31 10/25 14:21 Order name: Urine Test (obtain specimen); Complete Time: 15:31 10/25 17:38 Order name: PO challenge; Complete Time: 18:31 10/25 19:16 Order name: PO challenge cp Administered Medications: 14:56 Drug: NS 0.9% 1000 ml Route: IV; Rate: 1 bolus; Site: right antecubital; jg9 14:56 Drug: Pepcid (famotidine) 20 mg Route: IVP; Site: right antecubital; jg9 15:36 Follow up: Response: No adverse reaction j9 14:56 Drug: Zofran (Ondansetron) 4 mg Route: IVP; Site: right antecubital; jg9 15:36 Follow up: Response: No adverse reaction jg9 15:36 Drug: morphine 2 mg Route: IVP; Infused Over: 4 mins; Site: right antecubital; jg9 16:26 Follow up: Response: No adverse reaction; Pain is unchanged, physician notified; RASS: jg9 Light sedation (-2) 17:09 Drug: Phenergan (promethazine) 12.5 mg Route: IVP; Site: right antecubital; jg9 18:08 Follow up: Response: No adverse reaction; Nausea is decreased jg9 17:09 Drug: morphine 2 mg {Note: RASS-2, 8/10 abd pain.} Route: IVP; Infused Over: 4 mins; jg9 Site: right antecubital; 18:08 Follow up: Response: No adverse reaction; Pain is decreased j9 18:31 Drug: Zofran (Ondansetron) 4 mg Route: IVP; Site: right antecubital; jg9 18:56 Follow up: Response: No adverse reaction jg9 21:39 Drug: Phenergan (promethazine) 12.5 mg Route: IVP; Site: right antecubital; ja4 23:02 Drug: Ativan (LORazepam) 0.5 mg Route: IVP; Site: right antecubital; ja4 Point of Care Testing: Urine : 15:31 hCG Reading: Negative; Control Reading: Positive; jg9 Disposition Summary: 10/25/21 23:47 Discharge Ordered Location: Home cp Problem: new cp Symptoms: have improved cp Condition: Stable cp Diagnosis - Nausea with vomiting, unspecified cp - Abdominal pain, unspecified cp Followup: cp - With: Private Physician - When: 2 - 3 days - Reason: Recheck today's complaints Discharge Instructions: - Discharge Summary Sheet cp - Abdominal Pain, Adult cp - Nausea and Vomiting, Adult cp Forms: - Medication Reconciliation Form cp - Thank You Letter cp - Antibiotic Education cp - Prescription Opioid Use cp Prescriptions: - Zofran 4 mg Oral Tablet - take 1 tablet by ORAL route every 12 hours As needed; 20 tablet; Refills: 0, cp Product Selection Permitted Signatures: Dispatcher [employer] EDFL Zaid Samuel, JUSTINE-C RADIATION THERAPY TECHNOLOGIST-Cla1 Billy Kilpatrick PA PA cp Tisha Coronel, RN RN jg9 Rita Houser RN RN kr3 Mcaario Fregoso, RN RN ja4 Corrections: (The following items were deleted from the chart) 17:26 17:05 Abdomen Pelvis W Con+CT.RAD.BRZ ordered. [facility] EDFL 10/27 00:10/26 15:00 This 31 yrs old Female presents to ER via Ambulatory with complaints of cp Abdominal Pain, Nausea/Vomiting. cp 10/27 00:10/26 15:00 The patient presents with abdominal pain that is diffuse, cp cp 10/28 99:10/26 15:00 Onset: The symptoms/episode began/occurred this morning, cp cp 10/27 00:10/26 15:00 Associated signs and symptoms: Pertinent positives: nausea and vomiting, cp anorexia, Pertinent negatives: blood in stools, constipation, diarrhea, dysuria, fever, cp 10/27 00:10/26 15:00 The symptoms are described as constant, cp cp 10/27 00:10/26 15:00 Severity of pain: in the emergency department the pain is unchanged despite cp home interventions, cp 10/27 00:10/26 15:00 The patient has experienced similar episodes in the past, multiple times, cp today's symptoms are similar, to previous flare up of gastroparesis, cp 10/28 99:10/26 15:08 Constitutional: Positive for poor PO intake, Negative for chills, fever, cp cp 10/27 00:10/26 15:08 Cardiovascular: Negative for chest pain, cp cp 10/28 99:10/26 15:08 Respiratory: Negative for cough, shortness of breath, wheezing, cp cp 10/28 99:10/26 15:08 Abdomen/GI: Positive for abdominal pain, nausea and vomiting, anorexia, cp Negative for hematemesis, cp 10/27 00:10/26 15:08 Eyes: Negative for injury, pain, redness, and discharge, cp cp 10/28 99:10/26 15:08 : Negative for urinary symptoms, cp cp 10/28 99:10/26 15:08 Neuro: Negative for altered mental status, headache, cp cp 10/28 99:10/26 15:08 All other systems are negative, cp cp 10/28 99:10/26 15:15 Constitutional: The patient appears in no acute distress, alert, awake, cp non-toxic, well developed, well nourished, uncomfortable, cp 10/27 00:10/26 15:15 Head/Face: Normocephalic, atraumatic. cp cp 10/27 00:10/26 15:15 Eyes: Periorbital structures: appear normal, Conjunctiva: normal, no cp exudate, no injection, Sclera: no appreciated abnormality, Lids and lashes: appear normal, bilaterally, cp 10/28 99:10/26 15:15 ENT: External ear(s): are unremarkable, Nose: is normal, Mouth: Lips: cp moist, Oral mucosa: pink and intact, moist, Posterior pharynx: Airway: no evidence of obstruction, patent, cp 10/28 99:10/26 15:15 Chest/axilla: Inspection: normal, Palpation: is normal, no crepitus, no cp tenderness, cp 10/28 99:10/26 15:15 Cardiovascular: Rate: normal, Rhythm: regular, cp cp 10/28 99:10/26 15:15 Respiratory: the patient does not display signs of respiratory distress, cp Respirations: normal, no use of accessory muscles, no retractions, labored breathing, is not present, Breath sounds: are clear throughout, no decreased breath sounds, no stridor, no wheezing, cp 10/28 99:10/26 15:15 Abdomen/GI: Inspection: abdomen appears normal, Bowel sounds: active, all cp quadrants, Palpation: soft, in all quadrants, severe abdominal tenderness, in all quadrants, rebound tenderness, is not appreciated, voluntary guarding, is elicited in all quadrants, cp 10/28 99:10/26 15:15 Back: CVA tenderness, is absent, cp cp 10/28 99:10/26 15:15 Neuro: Orientation: to person, place \T\ time. Mentation: is normal, cp Cerebellar function: is grossly normal, Motor: moves all fours, strength is normal, cp 10/28 99:10/26 23:45 Data reviewed: vital signs, nurses notes, lab test result(s), radiologic cp studies, CT scan, 10/28 99:10/26 23:45 Counseling: I had a detailed discussion with the patient and/or guardian cp regarding: the historical points, exam findings, and any diagnostic results supporting the discharge/admit diagnosis, lab results, radiology results, to return to the emergency department if symptoms worsen or persist or if there are any questions or concerns that arise at home, 10/28 99:10/26 23:45 Response to treatment: the patient's symptoms have markedly improved after cp treatment, Pain and nausea markedly improved, vomiting resolved. Will discharge to home for continued monitoring, 10/28 99:10/26 23:45 Differential diagnosis: appendicitis, bowel obstruction, cholecystitis, cp Cholelithiasis, non-specific abd pain, pancreatitis, urinary tract infection, cp
--- NOTE | 2021-10-25 23:48 | ER ---
Nurse's Notes [facility] Name: Efrem Pastor Age: 31 yrs Sex: Female : 1990 Arrival Date: 10/25/2021 Time: 13:21 Bed 16 Private MD: Kelton Daniels Diagnosis: Nausea with vomiting, unspecified;Abdominal pain, unspecified Presentation: 10/25 14:17 Chief complaint: Patient states: hx of gastroparesis, been vomiting all morning, kr3 abdmonial pain. Coronavirus screen: Vaccine status: Patient reports receiving the 2nd dose of the covid vaccine. Coronavirus screen: Client denies travel out of the [place] in the last 14 days. Ebola Screen: Patient denies travel to an Ebola-affected area in the 21 days before illness onset. Ebola Screen: Patient denies travel to an Ebola-affected area in the 21 days before illness onset. Initial Sepsis Screen: Does the patient meet any 2 criteria? No. Patient's initial sepsis screen is negative. Does the patient have a suspected source of infection? Yes: Acute abdominal pain. Risk Assessment: Do you want to hurt yourself or someone else? Patient reports no desire to harm self or others. Onset of symptoms was October 25, 2021. 14:17 Method Of Arrival: Ambulatory kr3 14:17 Acuity: BELINDA 3 kr3 Triage Assessment: 14:22 General: Appears distressed, uncomfortable, ill, Behavior is calm, cooperative, kr3 appropriate for age. Pain: Complains of pain in abdomen. GI: Pt is actively vomiting. 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 - Social history:: Smoking status: Reported history of juuling and/or vaping. Screenin:00 Abuse screen: Denies threats or abuse. Denies injuries from another. Nutritional jg9 screening: No deficits noted. Tuberculosis screening: No symptoms or risk factors identified. Fall Risk None identified. Assessment: 16:00 GI: Bowel sounds present X 4 quads. Abd is soft and non tender X 4 quads. Abdomen is jg9 tender to palpation X 4 quads. 16:27 Reassessment: Patient denied feeling better however she is no longer dry heaving and jg9 she is a -2 on RASS. 17:00 Reassessment: Patient and/or family updated on plan of care and expected duration. Pain jg9 level reassessed. Patient is alert, oriented x 3, equal unlabored respirations, skin warm/dry/pink. Patient states symptoms have not improved. 18:35 Reassessment: Patient and/or family updated on plan of care and expected duration. Pain jg9 level reassessed. Patient is alert, oriented x 3, equal unlabored respirations, skin warm/dry/pink. Patient unable to complete PO challenge, after taking small sip patient vomited, patient pain is under control RASS- -3 Patient states symptoms have not improved. Vital Signs: 14:17 BP 139 / 115; Pulse 85; Resp 20; Pulse Ox 99% on R/A; Weight 58.97 kg; Height 5 ft. 2 kr3 in. (157.48 cm); Pain 10/10; 14:24 Temp 97.8; kr3 15:30 BP 137 / 104; Pulse 76; Resp 14 S; Pulse Ox 100% ; Pain 10/10; jg9 16:15 BP 125 / 99; Pulse 70; Resp 12 S; Pulse Ox 100% ; Pain 5/10; jg9 16:45 BP 132 / 90; Pulse 103; Resp 12 S; Pulse Ox 100% on R/A; Pain 7/10; jg9 17:00 BP 129 / 90; Pulse 80; Resp 16 S; Pulse Ox 99% on R/A; jg9 18:25 BP 136 / 101; Pulse 83; Resp 10 S; Pulse Ox 100% ; jg9 10/26 00:10 BP 130 / 101; Pulse 79; Resp 20; Pulse Ox 100% on R/A; ja4 09/16 14:17 Body Mass Index 23.78 (58.97 kg, 157.48 cm) kr3 ED Course: 10/25 13:21 Patient arrived in ED. am2 13:21 Kelton Daniels MD is Private Physician. am2 13:48 [facility] cp 13:48 Willie Akbar MD is Attending Physician. cp 14:20 Triage completed. kr3 14:23 Arm band placed on right wrist. kr3 14:45 Tisha Coronel, BRUCE is Primary Nurse. jg9 14:55 Inserted saline lock: 22 gauge in right antecubital area, using aseptic technique. jg9 Blood collected. 16:00 Patient has correct armband on for positive identification. Bed in low position. Call jg9 light in reach. Side rails up X 1. 21:27 CT Abd/Pelvis - IV Contrast Only In Process Unspecified. EDMS 10/26 00:10 IV discontinued, intact, bleeding controlled, No redness/swelling at site. Pressure ja4 dressing applied. Administered Medications: 10/25 14:56 Drug: NS 0.9% 1000 ml Route: IV; Rate: 1 bolus; Site: right antecubital; jg9 14:56 Drug: Pepcid (famotidine) 20 mg Route: IVP; Site: right antecubital; jg9 15:36 Follow up: Response: No adverse reaction jg9 14:56 Drug: Zofran (Ondansetron) 4 mg Route: IVP; Site: right antecubital; jg9 15:36 Follow up: Response: No adverse reaction jg9 15:36 Drug: morphine 2 mg Route: IVP; Infused Over: 4 mins; Site: right antecubital; jg9 16:26 Follow up: Response: No adverse reaction; Pain is unchanged, physician notified; RASS: jg9 Light sedation (-2) 17:09 Drug: Phenergan (promethazine) 12.5 mg Route: IVP; Site: right antecubital; jg9 18:08 Follow up: Response: No adverse reaction; Nausea is decreased jg9 17:09 Drug: morphine 2 mg {Note: RASS-2, 8/10 abd pain.} Route: IVP; Infused Over: 4 mins; jg9 Site: right antecubital; 18:08 Follow up: Response: No adverse reaction; Pain is decreased jg9 18:31 Drug: Zofran (Ondansetron) 4 mg Route: IVP; Site: right antecubital; jg9 18:56 Follow up: Response: No adverse reaction jg9 21:39 Drug: Phenergan (promethazine) 12.5 mg Route: IVP; Site: right antecubital; ja4 23:02 Drug: Ativan (LORazepam) 0.5 mg Route: IVP; Site: right antecubital; ja4 Point of Care Testing: Urine : 15:31 hCG Reading: Negative; Control Reading: Positive; jg9 Outcome: 23:47 Discharge ordered by MD. young 10/26 00:10 Discharged to home ambulatory. ja4 Condition: stable Discharge instructions given to patient, Instructed on discharge instructions, follow up and referral plans. medication usage. 00:18 Patient left the ED. ja4 Signatures: Dispatcher [employer] EDMS Billy Kilpatrick PA PA cp Moreno, Amanda am2 Tisha Coronel RN RN jg9 Rita Houser RN RN kr3 Macario Fregoso, RN RN ja4 Corrections: (The following items were deleted from the chart) 10/25 17:13 16:45 BP 132 / 90; Pulse 103bpm; Resp 12bpm; Spontaneous; Pulse Ox 100% RA; jg9 jg9
[2021-10-27 10:58] VITALS: TEMP 97.8
[2021-10-27 11:19] VITALS: O2SAT 100
[2021-10-27 11:21] VITALS: BP 130/101
== END 2021-10-26 00:18 | disposition home or self-care (01) ==
LOC: ER 13:20
DX: R10.9 Unspecified abdominal pain (principal); R11.2 Nausea with vomiting, unspecified
CPT/HCPCS: 85025; 36415; 81025; 83690; 80053; 80307; 74177; 96375; 96374; 99284; Q9967; J2550 ×2; J2270 ×2; J7030; J2405 ×2; 81003; 81015

== ENCOUNTER 2021-11-24 08:43 | Emergency (ER) | payer OTHER ==
--- OUTSIDE RECORDS SUMMARY | 2021-11-24 08:47 | XMS REPORT | Continuity of Care Document ---
:1990 Author Organization [facility] t Address [address] [place] [address] Care Team Providers Name Role Phone Kaelyn [...] No Known DA Active U 0 [facility] 1- [facility] No Known DA Active U 0 [facility] 06[facility]24 [facility] No Known DA Active U [facility] Allergie -16 [facility] scopolam DA Active GA 2020-0 [facility] -10 [facility] scopolam DA Active GA RASH-HIVES [facility] in[facility] 4-10 [facility] No Known DA Active U [facility] Allergie 6-20 [facility] No Known DA Active U [facility] 6-20 [facility] l [facility] No Known DA Active U [facility] 9-15 [facility] 00:[facility]: [facility] nc l [facility] No Known DA Active U NONE [facility] 9-15 [facility] 00:[facility]: nc l [facility] Medications This patient has no known medications. Procedures This patient has no known procedures. Encounters Start End Encounter Admission Attending Care Care Encounter Source Date/Time Date/Time Type Type Clinicians Facility Department ID 2020-06-24 Inpatient HCARG HCARG [id number] [facility] 15:53:[address] [facility] 2020-05-19 Inpatient [facility] [id number] [facility] 11:[facility] [facility] 2019-07-30 Inpatient HCARG ER [id number] [facility] 21:08:[address] [facility] 2021-02-09 2021-02-10 Emergency EM Peguero, HC[facility] ER [id number] [facility] 23:10:00 00:19:[address] [facility] Results Test Description Test [...] = 60 ml/mi n/1.73M2IF PATIENT IS AFRI CAN-CYMRO, MULTIPLY REPORT ED RESULT BY1.21. [Automa ashley message] The system Piqni[employer] generated this result tra nsmitted reference range [...] U/L 45-117 H (test code = ALKP) [id number] 16:11:00 Test Item Value Reference Range Interpretation Comments LIPASE (test code = LIP) 108 U/L 73-393 N URINALYSIS W REFLEX [id number] 16:05:00 Test Item Value Reference Range Interpretation [...] UA MICRO code = UAMICRO) UR HCG [id number] 16:05:00 Test Item Value Reference Range Interpretation Comments UR HCG QUAL (test code = HCGQLU) NEGATIVE NEGATIVE URINALYSIS W REFLEX [id number] 16:05:00 Test Item Value Reference Range Interpretation [...] DO UA MICRO code = UAMICRO) UA [id number] 16:05:00 Test Item Value Reference Range Interpretation Comments UA WBC (test code = WBCU) 0-2 #/hpf 0-5 UA RBC (test code = RBCU) 0-2 #/hpf 0-5 UA EPITHELIAL CELLS (test code = 2+ /hpf NEG,FEW A EPIU) UA BACTERIA (test code = BACU) FEW /hpf NEGATIVE A UA AMORPHOUS SEDIMENT (test code = FEW /hpf NEG,FEW AMORU) UR HCG [id number] 16:05:00 Test Item Value Reference Range Interpretation Comments UR HCG QUAL (test code = HCGQLU) NEGATIVE NEGATIVE URINALYSIS W REFLEX [id number] 16:05:00 Test Item Value Reference Range Interpretation [...] UA MICRO code = UAMICRO) UR HCG [id number] 16:05:00 Test Item Value Reference Range Interpretation Comments UR HCG QUAL (test code = HCGQLU) NEGATIVE NEGATIVE DRUGS OF ABUSE [id number] 16:01:00 Test Item Value Reference Range Interpretation [...] code = WAS TESTE D AT THE [facility]) LISTED CUTOFFS DRUG CLASS INIT IAL TEST LEVEL AMPHETAMINES 10 00 NG/MLBARBITURAT ES 200 NG/MLBENZODIAZE PIN ES 200 NG/MLCOCAINE METABOLITE 300 NG/MLMARIJUANA METABOLITE 50 NG/MLOPIATES 30 0 NG/MLPHENCYCLID INE 25 NG/ML UR HCG [id number] 15:58:00 Test Item Value Reference Range Interpretation Comments UR HCG QUAL (test code = HCGQLU) NEGATIVE NEGATIVE URINALYSIS W REFLEX [id number] 15:58:00 Test Item Value Reference Range Interpretation [...] NEEDED? (test code = UAMICRO) CBC W/AUTO [id number] 15:52:00 Test Item Value Reference Range Interpretation [...] NORMAL code = RBCM) URINALYSIS W REFLEX [id number] 13:00:00 Test Item Value Reference Range Interpretation [...] MICRO code = UAMICRO) UA ICTOTEST FOR [id number] 13:00:00 Test Item Value Reference Range Interpretation Comments UA ICTOTEST FOR BILIRUBIN (test code POSITIVE NEGATIVE A = ICTOU) UA [id number] 13:00:00 Test Item Value Reference Range Interpretation Comments UA WBC (test code = WBCU) 0-2 #/hpf 0-5 UA RBC (test code = RBCU) 3-5 #/hpf 0-5 UA EPITHELIAL CELLS (test code = FEW /hpf NEG,FEW EPIU) UA BACTERIA (test code = BACU) FEW /hpf NEGATIVE A UA MUCUS (test code = MUCU) 1+ /hpf NEG,FEW A UR HCG [id number] 13:00:00 Test Item Value Reference Range Interpretation Comments UR HCG QUAL (test code = HCGQLU) NEGATIVE NEGATIVE DRUGS OF ABUSE [id number] 12:57:00 Test Item Value Reference Range Interpretation [...] code = WAS TESTE D AT THE [facility]) LISTED CUTOFFS DRUG CLASS INIT IAL TEST LEVEL AMPHETAMINES 10 00 NG/MLBARBITURAT ES 200 NG/MLBENZODIAZE PIN ES 200 NG/MLCOCAINE METABOLITE 300 NG/MLMARIJUANA METABOLITE 50 NG/MLOPIATES 30 0 NG/MLPHENCYCLID INE 25 NG/ML URINALYSIS W REFLEX [id number] 12:56:00 Test Item Value Reference Range Interpretation [...] MICRO code = UAMICRO) UA ICTOTEST FOR [id number] 12:56:00 Test Item Value Reference Range Interpretation Comments UA ICTOTEST FOR BILIRUBIN (test code POSITIVE NEGATIVE A = ICTOU) UR HCG [id number] 12:56:00 Test Item Value Reference Range Interpretation Comments UR HCG QUAL (test code = HCGQLU) NEGATIVE NEGATIVE URINALYSIS W REFLEX [id number] 12:53:00 Test Item Value Reference Range Interpretation [...] UA MICRO code = UAMICRO) UR HCG [id number] 12:53:00 Test Item Value Reference Range Interpretation Comments UR HCG QUAL (test code = HCGQLU) NEGATIVE NEGATIVE URINALYSIS W REFLEX [id number] 12:53:00 Test Item Value Reference Range Interpretation [...] UA MICRO code = UAMICRO) UR HCG [id number] 12:53:00 Test Item Value Reference Range Interpretation Comments UR HCG QUAL (test code = HCGQLU) NEGATIVE NEGATIVE - XR ABDOMEN [id number] 12:16:00 [facility] 1990 Sex: F FAX: Sawyer Centeno II [place]: St: PRE Name: BREANNA QUEEN FSED : 1990 Age/S: 30/F [address] #: [id number] Loc: [place] [address] Phys: Sawyer Centeno II, MD Acct: [id number] Dis Date: Status: PRE ER PHONE #: Exam Date: 05/19/2020 1212 FAX #: Reason: abdominal pain EXAMS: CPT CODE: [id number] XR ABDOMEN 2V 01404 - XR ABDOMEN 2V PROVIDED REASON FOR [...] By: [email or web address] Orig Print D/T: S: 05/19/2020 (8303) PAGE 1 Signed ReportBASIC METABOLIC PANEL 2020-05-19 [...] RESULT BY1.21. [Automated mess age] The system Piqniq generated this result transmitted ref erence range: >=60. Th e reference range was not used to int erpret this result as normal/abnormal . CREATININE (test code 0.64 mg/dl 0.55-1.02 N = CREAT) CALCIUM (test code = 9.8 mg/dL 8.5-10.1 N CA) LIVER [id number] 12:08:00 Test Item Value Reference Range Interpretation [...] 119 U/L 45-117 H code = ALKP) [id number] 12:08:00 Test Item Value Reference Range Interpretation Comments LIPASE (test code = LIP) 67 U/L 73-393 L CBC W/AUTO [id number] 11:43:00 Test Item Value Reference Range Interpretation [...] NORMAL code = RBCM) URINALYSIS W REFLEX [id number] 22:06:00 Test Item Value Reference Range Interpretation [...] MUCU) 2+ /hpf NEG,FEW A BASIC METABOLIC [id number] 21:54:00 Test Item Value Reference Range Interpretation [...] = 9.3 mg/dL 8.5-10.1 N CA) LIVER [id number] 21:54:00 Test Item Value Reference Range Interpretation [...] 69 U/L 50-136 N code = ALKP) [id number] 21:54:00 Test Item Value Reference Range Interpretation Comments LIPASE (test code = LIP) 63 U/L 73-393 L BASIC METABOLIC [id number] 21:53:00 Test Item Value Reference Range Interpretation [...] = 9.3 mg/dL 8.5-10.1 N CA) LIVER [id number] 21:53:00 Test Item Value Reference Range Interpretation [...] TOTAL (test U/L 50-136 code = ALKP) [id number] 21:53:00 Test Item Value Reference Range Interpretation Comments LIPASE (test code = LIP) 63 U/L 73-393 L BASIC METABOLIC [id number] 21:52:00 Test Item Value Reference Range Interpretation [...] = 9.3 mg/dL 8.5-10.1 N CA) LIVER [id number] 21:52:00 Test Item Value Reference Range Interpretation [...] TOTAL (test U/L 50-136 code = ALKP) [id number] 21:52:00 Test Item Value Reference Range Interpretation Comments LIPASE (test code = LIP) 63 U/L 73-393 L BASIC METABOLIC [id number] 21:51:00 Test Item Value Reference Range Interpretation [...] = 9.3 mg/dL 8.5-10.1 N CA) LIVER [id number] 21:51:00 Test Item Value Reference Range Interpretation [...] TOTAL (test U/L 50-136 code = ALKP) [id number] 21:51:00 Test Item Value Reference Range Interpretation Comments LIPASE (test code = LIP) 63 U/L 73-393 L BASIC METABOLIC [id number] 21:49:00 Test Item Value Reference Range Interpretation [...] = CA) 9.3 mg/dL 8.5-10.1 N LIVER [id number] 21:49:00 Test Item Value Reference Range Interpretation [...] TOTAL (test U/L 50-136 code = ALKP) [id number] 21:49:00 Test Item Value Reference Range Interpretation Comments LIPASE (test code = LIP) 63 U/L 73-393 L BASIC METABOLIC [id number] 21:48:00 Test Item Value Reference Range Interpretation [...] = CA) 9.3 mg/dL 8.5-10.1 N LIVER [id number] 21:48:00 Test Item Value Reference Range Interpretation Comments TOTAL PROTEIN (test code = PROT) g/dl 6.4-8.2 ALBUMIN (test code = ALB) g/dl 3.4-5.0 BILIRUBIN TOTAL (test code = BILT) mg/dl 0.2-1.0 BILIRUBIN DIRECT (test code = BILD) mg/dl 0.0-0.4 SGOT/AST (test code = AST) U/L 15-37 SGPT/ALT (test code = ALT) U/L 12-78 ALKALINE PHOSPHATASE TOTAL (test code U/L 50-136 = ALKP) [id number] 21:48:00 Test Item Value Reference Range Interpretation Comments LIPASE (test code = LIP) U/L 73-393 BASIC METABOLIC [id number] 21:46:00 Test Item Value Reference Range Interpretation [...] (test code = CA) mg/dL 8.5-10.1 LIVER [id number] 21:46:00 Test Item Value Reference Range Interpretation Comments TOTAL PROTEIN (test code = PROT) g/dl 6.4-8.2 ALBUMIN (test code = ALB) g/dl 3.4-5.0 BILIRUBIN TOTAL (test code = BILT) mg/dl 0.2-1.0 BILIRUBIN DIRECT (test code = BILD) mg/dl 0.0-0.4 SGOT/AST (test code = AST) U/L 15-37 SGPT/ALT (test code = ALT) U/L 12-78 ALKALINE PHOSPHATASE TOTAL (test code U/L 50-136 = ALKP) [id number] 21:46:00 Test Item Value Reference Range Interpretation Comments LIPASE (test code = LIP) U/L 73-393 CBC W/AUTO [id number] 21:43:00 Test Item Value Reference Range Interpretation [...]
[2021-11-24 08:59] LABS: Urine Blood Negative (Negative); Urine Glucose Negative (Negative); Urine Protein 1+ (Negative); Urine Specific Gravity 1.015 (1.005-1.030); Urine pH 8.5 (5.0-7.0)
[2021-11-24] MEDS ORDERED: MORPHINE 4 MG/ML SYR ONE ×2 (09:00→09:54)
[2021-11-24] MEDS ORDERED: METOCLOPRAMIDE 10 MG/2mL INJ ONE (09:00)
[2021-11-24] MEDS ORDERED: DIPHENHYDRAMINE 50 MG/ML VIAL ONE (09:00)
[2021-11-24] MEDS ORDERED: PANTOPRAZOLE 40 MG INJ ONE (09:01)
[2021-11-24 09:20] LABS: Absolute Lymphocytes (CBC) 1.6 K/uL (0.7-4.9); Hematocrit 39.6 % (36.0-45.0); Lymphocytes % 26.8 % (15.3-44.8); MCV 82.3 fL (80-100); MPV 10.6 fL (7.6-11.3); RBC Red Blood Cell Count 4.82 M/uL (3.86-4.86)
[2021-11-24 09:35] LABS: Albumin 3.7 g/dL (3.4-5.0); Bilirubin Total 0.5 mg/dL (0.2-1.0); Potassium 4.1 mmol/L (3.5-5.1); Protein, Total 7.8 g/dL (6.4-8.2)
[2021-11-24 09:47] LABS: Urine Specific Gravity/Preg 1.015 (1.005-1.030)
[2021-11-24] MEDS ORDERED: ONDANSETRON 4 MG/2 ML VIAL ONE (09:54)
[2021-11-24] MEDS ORDERED: Ringers Lactate 1,000 ML IV ONE (09:54)
[2021-11-24] MEDS ORDERED: LORazepam 2 MG/ML VIAL ONE (12:04)
[2021-11-24] MEDS ORDERED: FENTANYL CITR 100 MCG/2 ML ONE (12:05)
[2021-11-24] MEDS ORDERED: HALOPERIDOL LACT 5 MG/ML INJ ONE (13:56)
--- NOTE | 2021-11-24 14:23 | ER ---
Nurse's Notes [facility] Name: Efrem Pastor Age: 31 yrs Sex: Female : 1990 Arrival Date: 11/24/2021 Time: 08:46 Bed 7 Private MD: Diagnosis: Abdominal pain, unspecified;Gastroparesis Presentation: 11/24 08:47 Chief complaint: Patient states: abdominal pain and n/v. Hx of gastroparesis. EMS mb8 states: they gave 4mg IM zofran, 12.5mg of IV phenergan and 400ml of NS. 20ga R AC. Coronavirus screen: Vaccine status: Patient reports receiving the 2nd dose of the covid vaccine. Ebola Screen: Patient negative for fever greater than or equal to 101.5 degrees Fahrenheit, and additional compatible Ebola Virus Disease symptoms Patient denies exposure to infectious person. Patient denies travel to an Ebola-affected area in the 21 days before illness onset. Initial Sepsis Screen: Does the patient meet any 2 criteria? No. Patient's initial sepsis screen is negative. Initial Sepsis Screen: Does the patient have a suspected source of infection? No. Patient's initial sepsis screen is negative. Risk Assessment: Do you want to hurt yourself or someone else? Patient reports no desire to harm self or others. Onset of symptoms was November 24, 2021. 08:47 Method Of Arrival: EMS: [facility] mb8 08:47 Acuity: BELINDA 3 mb8 Historical: - Allergies: 08:49 Scopolamine HBr; mb8 - PMHx: 08:49 Gastroparesis; Irritable bowel syndrome; PTSD; mb8 - PSHx: 08:49 bilateral ureter attachment; Cholecystectomy; leep procedure; Lumpectomy of breast; mb8 right breast; - Social history:: Smoking status: unknown. Screenin:50 Abuse screen: Denies threats or abuse. Denies injuries from another. Nutritional mb8 screening: No deficits noted. Tuberculosis screening: No symptoms or risk factors identified. Fall Risk None identified. Assessment: 08:49 Pain: Complains of pain in abdomen Pain does not radiate. Pain currently is 10 out of mb8 10 on a pain scale. Cardiovascular: No deficits noted. Respiratory: No deficits noted. GI: Bowel sounds present X 4 quads. Abd is soft Reports intolerance of fluids, intolerance of food, nausea, vomiting. : No deficits noted. 10:02 Reassessment: Patient and/or family updated on plan of care and expected duration. Pain mb8 level reassessed. Patient is alert, oriented x 3, equal unlabored respirations, skin warm/dry/pink. 10:56 Reassessment: Patient is alert, oriented x 3, equal unlabored respirations, skin mb8 warm/dry/pink. Patient reports pain is slightly better, still reports mild nausea but has not had any episodes of emesis since last medications given. 11:38 Reassessment: Patient and/or family updated on plan of care and expected duration. Pain mb8 level reassessed. Patient is alert, oriented x 3, equal unlabored respirations, skin warm/dry/pink. Patient states symptoms have not improved. 12:59 Reassessment: Patient is alert, oriented x 3, equal unlabored respirations, skin mb8 warm/dry/pink. Patient states symptoms have not improved. Pain is improved but patient still reports nausea, PA aware. Vital Signs: 08:47 BP 130 / 106; Pulse 87; Resp 20; Temp 97; Pulse Ox 100% ; Pain 10/10; mb8 09:15 BP 140 / 82; Pulse 78; Resp 18; Pulse Ox 95% on R/A; Pain 8/10; mb8 09:45 BP 133 / 96; Pulse 70; Resp 18; Pulse Ox 97% on R/A; Pain 8/10; mb8 10:26 BP 135 / 100; Pulse 80; Resp 14; Pulse Ox 97% on R/A; Pain 4/10; mb8 10:49 BP 132 / 98; Pulse 74; Resp 16; Pulse Ox 98% on R/A; mb8 11:39 BP 137 / 92; Pulse 68; Resp 14; Pulse Ox 99% on R/A; mb8 12:59 BP 120 / 85; Pulse 92; Resp 14; Pulse Ox 99% on R/A; Pain 2/10; mb8 13:49 BP 130 / 98; Pulse 80; Resp 15; Pulse Ox 99% on R/A; Pain 2/10; mb8 ED Course: 08:46 Patient arrived in ED. 8 08:48 Lasha Carey PA is [facility]CP[facility] 08:48 Billy Juarez MD is Attending Physician. jmm 08:49 Triage completed. mb8 08:49 Arm band placed on. mb8 08:50 Patient has correct armband on for positive identification. Placed in gown. Bed in low mb8 position. Call light in reach. Side rails up X2. Client placed on continuous cardiac and pulse oximetry monitoring. NIBP monitoring applied. 08:50 No provider procedures requiring assistance completed. Inserted saline lock: 20 gauge mb8 in right antecubital area, using aseptic technique. ,using aseptic technique. EMS IV Blood collected. 08:59 Mani Wynn RN is Primary Nurse. mb8 14:23 Ced Hood MD is Referral Physician. jmm 14:57 IV discontinued, intact, bleeding controlled, No redness/swelling at site. Pressure mb8 dressing applied. Administered Medications: 09:03 Drug: morphine 4 mg Route: IVP; Infused Over: 4 mins; Site: right antecubital; mb8 10:02 Follow up: Response: Pain is unchanged, physician notified mb8 09:06 Drug: ProTONIX (pantoprazole) 40 mg Route: IVP; Site: right antecubital; mb8 10:02 Follow up: Response: Nausea unchanged mb8 09:09 Drug: diphenhydrAMINE 25 mg Route: IVP; Site: right antecubital; mb8 10:01 Follow up: Response: Nausea unchanged mb8 09:11 Drug: Reglan (metoCLOPramide) 20 mg Route: IVP; Site: right antecubital; mb8 10:01 Follow up: Response: No adverse reaction; Nausea unchanged mb8 09:57 Drug: Lactated Ringers Solution 1000 ml Route: IV; Rate: 1000 bolus; Site: right mb8 antecubital; 09:58 Drug: morphine 4 mg Route: IVP; Infused Over: 4 mins; Site: right antecubital; mb8 10:26 Follow up: BP 135 / 100; Pulse 80 bpm; Resp 14 bpm; Pulse Ox 97% RA; Pain 4/10 Adult; mb8 Response: Pain is decreased 10:01 Drug: Zofran (Ondansetron) 4 mg Route: IVP; Site: right antecubital; mb8 10:27 Follow up: Response: No adverse reaction; Nausea is decreased mb8 12:11 Drug: fentaNYL (PF) 50 mcg Route: IVP; Site: right antecubital; mb8 13:00 Follow up: Response: No adverse reaction; Pain is decreased; RASS: Drowsy (-1) mb8 12:13 Drug: Ativan (LORazepam) 1 mg Route: IVP; Site: right antecubital; mb8 13:00 Follow up: Response: No adverse reaction; Nausea unchanged; RASS: Drowsy (-1) mb8 13:58 Drug: HALdol (haloperidol) 5 mg Route: IVP; Site: right antecubital; mb8 Medication: 08:50 VIS not applicable for this client. mb8 Outcome: 14:23 Discharge ordered by . saba 14:58 Discharged to home ambulatory. mb8 14:58 Condition: stable 14:58 Discharge instructions given to patient, Instructed on discharge instructions, follow up and referral plans. medication usage, Demonstrated understanding of instructions, follow-up care, medications, Prescriptions given X 2. 14:58 Patient left the ED. mb8 Signatures: Lasha Carey PA PA jmm Bates, Michael, RN RN mb8
--- NOTE | 2021-11-24 14:23 | EDPHYS ---
Physician Documentation [facility] Name: Efrem Pastor Age: 31 yrs Sex: Female : 1990 Arrival Date: 11/24/2021 Time: 08:46 Bed 7 Private MD: MICHAEL Physician Billy Juarez HPI: 11/24 08:51 This 31 yrs old Female presents to ER via EMS with complaints of Abdominal Pain. m 08:51 The patient presents with abdominal pain. Onset: The symptoms/episode began/occurred jmm this morning. The symptoms radiate to Associated signs and symptoms: Pertinent positives: nausea and vomiting. The symptoms are described as achy. Modifying factors: The symptoms are alleviated by nothing, the symptoms are aggravated by nothing. The patient has experienced similar episodes in the past. Patient states drinking ETOH last night. Awoke around 0500 with vomiting, consistent with previous episodes of gastroparesis. . Historical: - Allergies: 08:49 Scopolamine HBr; mb8 - PMHx: 08:49 Gastroparesis; Irritable bowel syndrome; PTSD; mb8 - PSHx: 08:49 bilateral ureter attachment; Cholecystectomy; leep procedure; Lumpectomy of breast; mb8 right breast; - Social history:: Smoking status: unknown. ROS: 08:51 Constitutional: Negative for fever, chills, and weight loss, Cardiovascular: Negative jm for chest pain, palpitations, and edema, Respiratory: Negative for shortness of breath, cough, wheezing, and pleuritic chest pain. 08:51 Abdomen/GI: Positive for abdominal pain, vomiting. 08:51 All other systems are negative. Exam: 08:51 Head/Face: atraumatic. Eyes: EOMI, no conjunctival erythema appreciated ENT: Moist jmm Mucus Membranes Neck: Trachea midline, Supple Chest/axilla: Normal chest wall appearance and motion. Cardiovascular: Regular rate and rhythm. No edema appreciated Respiratory: Normal respirations, no respiratory distress appreciated 08:51 Back: Normal ROM Skin: General appearance color normal MS/ Extremity: Moves all extremities, no obvious deformities appreciated, no edema noted to the lower extremities Neuro: Awake and alert Psych: Behavior is normal, Mood is normal, Patient is cooperative and pleasant 08:51 Constitutional: The patient appears alert, awake, uncomfortable. 08:51 Abdomen/GI: Inspection: abdomen appears normal, Bowel sounds: normal, Palpation: soft, mild abdominal tenderness, in the epigastric area. Vital Signs: 08:47 BP 130 / 106; Pulse 87; Resp 20; Temp 97; Pulse Ox 100% ; Pain 10/10; mb8 09:15 BP 140 / 82; Pulse 78; Resp 18; Pulse Ox 95% on R/A; Pain 8/10; mb8 09:45 BP 133 / 96; Pulse 70; Resp 18; Pulse Ox 97% on R/A; Pain 8/10; mb8 10:26 BP 135 / 100; Pulse 80; Resp 14; Pulse Ox 97% on R/A; Pain 4/10; mb8 10:49 BP 132 / 98; Pulse 74; Resp 16; Pulse Ox 98% on R/A; mb8 11:39 BP 137 / 92; Pulse 68; Resp 14; Pulse Ox 99% on R/A; mb8 12:59 BP 120 / 85; Pulse 92; Resp 14; Pulse Ox 99% on R/A; Pain 2/10; mb8 13:49 BP 130 / 98; Pulse 80; Resp 15; Pulse Ox 99% on R/A; Pain 2/10; mb8 MDM: 08:51 Patient medically screened. [facility] 13:23 Data reviewed: vital signs, nurses notes. Counseling: I had a detailed discussion with [facility] the patient and/or guardian regarding: the historical points, exam findings, and any diagnostic results supporting the discharge/admit diagnosis, the need for outpatient follow up, to return to the emergency department if symptoms worsen or persist or if there are any questions or concerns that arise at home. 14:22 Counseling: I had a detailed discussion with the patient and/or guardian regarding: lab [facility] results. 11/24 08:54 Order name: CBC with Diff; Complete Time: 09:23 [facility] 11/24 08:54 Order name: CMP; Complete Time: 09:40 [facility] 11/24 08:54 Order name: Lipase; Complete Time: 09:40 [facility] 11/24 08:59 Order name: Urine Dipstick-Ancillary; Complete Time: 09:01 [facility] 11/24 09:15 Order name: Urine --Ancillary (enter results); Complete Time: 09:52 [facility] 11/24 08:54 Order name: IV Saline Lock; Complete Time: 08:59 [facility] 11/24 08:54 Order name: Labs collected and sent; Complete Time: 08:59 [facility] Administered Medications: 09:03 Drug: morphine 4 mg Route: IVP; Infused Over: 4 mins; Site: right antecubital; mb8 10:02 Follow up: Response: Pain is unchanged, physician notified mb8 09:06 Drug: ProTONIX (pantoprazole) 40 mg Route: IVP; Site: right antecubital; mb8 10:02 Follow up: Response: Nausea unchanged mb8 09:09 Drug: diphenhydrAMINE 25 mg Route: IVP; Site: right antecubital; mb8 10:01 Follow up: Response: Nausea unchanged mb8 09:11 Drug: Reglan (metoCLOPramide) 20 mg Route: IVP; Site: right antecubital; mb8 10:01 Follow up: Response: No adverse reaction; Nausea unchanged mb8 09:57 Drug: Lactated Ringers Solution 1000 ml Route: IV; Rate: 1000 bolus; Site: right mb8 antecubital; 09:58 Drug: morphine 4 mg Route: IVP; Infused Over: 4 mins; Site: right antecubital; mb8 10:26 Follow up: BP 135 / 100; Pulse 80 bpm; Resp 14 bpm; Pulse Ox 97% RA; Pain 4/10 Adult; mb8 Response: Pain is decreased 10:01 Drug: Zofran (Ondansetron) 4 mg Route: IVP; Site: right antecubital; mb8 10:27 Follow up: Response: No adverse reaction; Nausea is decreased mb8 12:11 Drug: fentaNYL (PF) 50 mcg Route: IVP; Site: right antecubital; mb8 13:00 Follow up: Response: No adverse reaction; Pain is decreased; RASS: Drowsy (-1) mb8 12:13 Drug: Ativan (LORazepam) 1 mg Route: IVP; Site: right antecubital; mb8 13:00 Follow up: Response: No adverse reaction; Nausea unchanged; RASS: Drowsy (-1) mb8 13:58 Drug: HALdol (haloperidol) 5 mg Route: IVP; Site: right antecubital; mb8 Disposition Summary: 11/24/21 14:23 Discharge Ordered Location: Home jmm Condition: Stable jmm Diagnosis - Abdominal pain, unspecified jmm - Gastroparesis [facility] Followup: [facility] - With: Ced Hood MD - When: 2 - 3 days - Reason: Recheck today's complaints, Continuance of care, Re-evaluation by your physician Discharge Instructions: - Discharge Summary Sheet jmm - Abdominal Pain, Adult jmm - Clear Liquid Diet, Adult jmm - Gastroparesis [facility] Forms: - Medication Reconciliation Form [facility] - Thank You Letter [facility] - Antibiotic Education [facility] - Prescription Opioid Use [facility] Prescriptions: - Reglan 10 mg Oral Tablet - take 1 tablet by ORAL route every 6 hours take 30 minutes before meals and at [facility] bedtime; 20 tablet; Refills: 0, Product Selection Permitted - Protonix 40 mg Oral Tablet - take 1 tablet by ORAL route once daily; 30 tablet; Refills: 0, Product [facility] Selection Permitted Signatures: Dispatcher [employer] Lasha Aquino PA PA [facility] Mani Wynn RN RN mb8
[2021-11-24 15:16] VITALS: TEMP 97
[2021-11-24 15:22] VITALS: O2SAT 99
[2021-11-24 15:25] VITALS: BP 130/98
== END 2021-11-24 14:58 | disposition home or self-care (01) ==
LOC: ER 08:43
DX: R10.13 Epigastric pain (principal); K31.84 Gastroparesis; Z88.8 Allergy status to other drugs, medicaments and biological substances
CPT/HCPCS: 85025; 36415; 81025; 81003; 83690; 80053; 96375; 96374; 99284; J1630; J2765; J1200; C9113; J3010; J7120; J2405

== ENCOUNTER 2021-12-01 11:19 | Emergency (ER) | payer OTHER ==
--- OUTSIDE RECORDS SUMMARY | 2021-12-01 11:22 | XMS REPORT | Continuity of Care Document ---
:1990 Author Organization [facility] t Address [address] [place] [address] Care Team Providers Name Role Phone Kaelyn [...] No Known DA Active U 0 [facility] 1- [facility] No Known DA Active U 0 [facility] 06[facility]24 [facility] No Known DA Active U [facility] Allergie -16 [facility] scopolam DA Active MD 2020-0 [facility] -10 [facility] scopolam DA Active MD RASH-HIVES [facility] ine 4-10 [facility] No Known DA Active U [facility] Allergie 6-20 [facility] No Known DA Active U [facility] 6-20 [facility] No Known DA Active U [facility] Drug 9-15 [facility] 00:00: [facility] nc [facility] No Known DA Active U NONE [facility] 9-15 [facility] 00:[facility]: nc l [facility] Medications This patient has no known medications. Procedures This patient has no known procedures. Encounters Start End Encounter Admission Attending Care Care Encounter Source Date/Time Date/Time Type Type Clinicians Facility Department ID 2020-06-24 Inpatient [facility] [id number] [facility] 15:53:22 [facility] 2020-05-19 Inpatient [facility] [id number] [facility] 11:42:02 [facility] 2019-07-30 Inpatient [facility] ER [id number] [facility] 21:08:00 63 [facility] 2021-02-09 2021-02-10 Emergency EM Peguero, [facility] ER [id number] [facility] 23:10:00 00:19:00 Kaelyn [facility] Results Test Description [...] = 60 ml/mi n/1.73M2IF PATIENT IS AFRI CAN-STATELESS, MULTIPLY REPORT ED RESULT BY1.21. [Automa ashlye message] The system [employer] generated this result tra nsmitted reference range [...] U/L 45-117 H (test code = ALKP) [id number] 16:11:00 Test Item Value Reference Range Interpretation Comments LIPASE (test code = LIP) 108 U/L 73-393 N URINALYSIS W REFLEX [id number] 16:05:00 Test Item Value Reference Range Interpretation [...] UA MICRO code = UAMICRO) UR HCG [id number] 16:05:00 Test Item Value Reference Range Interpretation Comments UR HCG QUAL (test code = HCGQLU) NEGATIVE NEGATIVE URINALYSIS W REFLEX [id number] 16:05:00 Test Item Value Reference Range Interpretation [...] DO UA MICRO code = UAMICRO) UA [id number] 16:05:00 Test Item Value Reference Range Interpretation Comments UA WBC (test code = WBCU) 0-2 #/hpf 0-5 UA RBC (test code = RBCU) 0-2 #/hpf 0-5 UA EPITHELIAL CELLS (test code = 2+ /hpf NEG,FEW A EPIU) UA BACTERIA (test code = BACU) FEW /hpf NEGATIVE A UA AMORPHOUS SEDIMENT (test code = FEW /hpf NEG,FEW AMORU) UR HCG [id number] 16:05:00 Test Item Value Reference Range Interpretation Comments UR HCG QUAL (test code = HCGQLU) NEGATIVE NEGATIVE URINALYSIS W REFLEX [id number] 16:05:00 Test Item Value Reference Range Interpretation [...] UA MICRO code = UAMICRO) UR HCG [id number] 16:05:00 Test Item Value Reference Range Interpretation Comments UR HCG QUAL (test code = HCGQLU) NEGATIVE NEGATIVE DRUGS OF ABUSE [id number] 16:01:00 Test Item Value Reference Range Interpretation [...] code = WAS TESTE D AT THE [facility]) LISTED CUTOFFS DRUG CLASS INIT IAL TEST LEVEL AMPHETAMINES 10 00 NG/MLBARBITURAT ES 200 NG/MLBENZODIAZE PIN ES 200 NG/MLCOCAINE METABOLITE 300 NG/MLMARIJUANA METABOLITE 50 NG/MLOPIATES 30 0 NG/MLPHENCYCLID INE 25 NG/ML UR HCG [id number] 15:58:00 Test Item Value Reference Range Interpretation Comments UR HCG QUAL (test code = HCGQLU) NEGATIVE NEGATIVE URINALYSIS W REFLEX [id number] 15:58:00 Test Item Value Reference Range Interpretation [...] NEEDED? (test code = UAMICRO) CBC W/AUTO [id number] 15:52:00 Test Item Value Reference Range Interpretation [...] NORMAL code = RBCM) URINALYSIS W REFLEX [id number] 13:00:00 Test Item Value Reference Range Interpretation [...] MICRO code = UAMICRO) UA ICTOTEST FOR [id number] 13:00:00 Test Item Value Reference Range Interpretation Comments UA ICTOTEST FOR BILIRUBIN (test code POSITIVE NEGATIVE A = ICTOU) UA [id number] 13:00:00 Test Item Value Reference Range Interpretation Comments UA WBC (test code = WBCU) 0-2 #/hpf 0-5 UA RBC (test code = RBCU) 3-5 #/hpf 0-5 UA EPITHELIAL CELLS (test code = FEW /hpf NEG,FEW EPIU) UA BACTERIA (test code = BACU) FEW /hpf NEGATIVE A UA MUCUS (test code = MUCU) 1+ /hpf NEG,FEW A UR HCG [id number] 13:00:00 Test Item Value Reference Range Interpretation Comments UR HCG QUAL (test code = HCGQLU) NEGATIVE NEGATIVE DRUGS OF ABUSE [id number] 12:57:00 Test Item Value Reference Range Interpretation [...] code = WAS TESTE D AT THE [facility]) LISTED CUTOFFS DRUG CLASS INIT IAL TEST LEVEL AMPHETAMINES 10 00 NG/MLBARBITURAT ES 200 NG/MLBENZODIAZE PIN ES 200 NG/MLCOCAINE METABOLITE 300 NG/MLMARIJUANA METABOLITE 50 NG/MLOPIATES 30 0 NG/MLPHENCYCLID INE 25 NG/ML URINALYSIS W REFLEX [id number] 12:56:00 Test Item Value Reference Range Interpretation [...] MICRO code = UAMICRO) UA ICTOTEST FOR [id number] 12:56:00 Test Item Value Reference Range Interpretation Comments UA ICTOTEST FOR BILIRUBIN (test code POSITIVE NEGATIVE A = ICTOU) UR HCG [id number] 12:56:00 Test Item Value Reference Range Interpretation Comments UR HCG QUAL (test code = HCGQLU) NEGATIVE NEGATIVE URINALYSIS W REFLEX [id number] 12:53:00 Test Item Value Reference Range Interpretation [...] UA MICRO code = UAMICRO) UR HCG [id number] 12:53:00 Test Item Value Reference Range Interpretation Comments UR HCG QUAL (test code = HCGQLU) NEGATIVE NEGATIVE URINALYSIS W REFLEX [id number] 12:53:00 Test Item Value Reference Range Interpretation [...] UA MICRO code = UAMICRO) UR HCG [id number] 12:53:00 Test Item Value Reference Range Interpretation Comments UR HCG QUAL (test code = HCGQLU) NEGATIVE NEGATIVE - XR ABDOMEN [id number] 12:16:00 [facility] 1990 Sex: F FAX: Sawyer Centeno II [place]: St: PRE Name: BREANNA QUEEN FSED : 1990 Age/S: 30/F [address] #: [id number] Loc: [place] [address] Phys: Sawyer Centeno II, MD Acct: [id number] Dis Date: Status: PRE ER PHONE #: Exam Date: 05/19/2020 1212 FAX #: Reason: abdominal pain EXAMS: CPT CODE: [id number] XR ABDOMEN 2V 27706 - XR ABDOMEN 2V PROVIDED REASON FOR [...] By: [email or web address] Orig Print D/T: S: 05/19/2020 (4758) PAGE 1 Signed ReportBASIC METABOLIC PANEL 2020-05-19 [...] RESULT BY1.21. [Automated mess age] The system [employer] generated this result transmitted ref erence range: >=60. Th e reference range was not used to int erpret this result as normal/abnormal . CREATININE (test code 0.64 mg/dl 0.55-1.02 N = CREAT) CALCIUM (test code = 9.8 mg/dL 8.5-10.1 N CA) LIVER [id number] 12:08:00 Test Item Value Reference Range Interpretation [...] 119 U/L 45-117 H code = ALKP) [id number] 12:08:00 Test Item Value Reference Range Interpretation Comments LIPASE (test code = LIP) 67 U/L 73-393 L CBC W/AUTO [id number] 11:43:00 Test Item Value Reference Range Interpretation [...] NORMAL code = RBCM) URINALYSIS W REFLEX [id number] 22:06:00 Test Item Value Reference Range Interpretation [...] MUCU) 2+ /hpf NEG,FEW A BASIC METABOLIC [id number] 21:54:00 Test Item Value Reference Range Interpretation [...] = 9.3 mg/dL 8.5-10.1 N CA) LIVER [id number] 21:54:00 Test Item Value Reference Range Interpretation [...] 69 U/L 50-136 N code = ALKP) [id number] 21:54:00 Test Item Value Reference Range Interpretation Comments LIPASE (test code = LIP) 63 U/L 73-393 L BASIC METABOLIC [id number] 21:53:00 Test Item Value Reference Range Interpretation [...] = 9.3 mg/dL 8.5-10.1 N CA) LIVER [id number] 21:53:00 Test Item Value Reference Range Interpretation [...] TOTAL (test U/L 50-136 code = ALKP) [id number] 21:53:00 Test Item Value Reference Range Interpretation Comments LIPASE (test code = LIP) 63 U/L 73-393 L BASIC METABOLIC [id number] 21:52:00 Test Item Value Reference Range Interpretation [...] = 9.3 mg/dL 8.5-10.1 N CA) LIVER [id number] 21:52:00 Test Item Value Reference Range Interpretation [...] TOTAL (test U/L 50-136 code = ALKP) [id number] 21:52:00 Test Item Value Reference Range Interpretation Comments LIPASE (test code = LIP) 63 U/L 73-393 L BASIC METABOLIC [id number] 21:51:00 Test Item Value Reference Range Interpretation [...] = 9.3 mg/dL 8.5-10.1 N CA) LIVER [id number] 21:51:00 Test Item Value Reference Range Interpretation [...] TOTAL (test U/L 50-136 code = ALKP) [id number] 21:51:00 Test Item Value Reference Range Interpretation Comments LIPASE (test code = LIP) 63 U/L 73-393 L BASIC METABOLIC [id number] 21:49:00 Test Item Value Reference Range Interpretation [...] = CA) 9.3 mg/dL 8.5-10.1 N LIVER [id number] 21:49:00 Test Item Value Reference Range Interpretation [...] TOTAL (test U/L 50-136 code = ALKP) [id number] 21:49:00 Test Item Value Reference Range Interpretation Comments LIPASE (test code = LIP) 63 U/L 73-393 L BASIC METABOLIC [id number] 21:48:00 Test Item Value Reference Range Interpretation [...] = CA) 9.3 mg/dL 8.5-10.1 N LIVER [id number] 21:48:00 Test Item Value Reference Range Interpretation Comments TOTAL PROTEIN (test code = PROT) g/dl 6.4-8.2 ALBUMIN (test code = ALB) g/dl 3.4-5.0 BILIRUBIN TOTAL (test code = BILT) mg/dl 0.2-1.0 BILIRUBIN DIRECT (test code = BILD) mg/dl 0.0-0.4 SGOT/AST (test code = AST) U/L 15-37 SGPT/ALT (test code = ALT) U/L 12-78 ALKALINE PHOSPHATASE TOTAL (test code U/L 50-136 = ALKP) [id number] 21:48:00 Test Item Value Reference Range Interpretation Comments LIPASE (test code = LIP) U/L 73-393 BASIC METABOLIC [id number] 21:46:00 Test Item Value Reference Range Interpretation [...] (test code = CA) mg/dL 8.5-10.1 LIVER [id number] 21:46:00 Test Item Value Reference Range Interpretation Comments TOTAL PROTEIN (test code = PROT) g/dl 6.4-8.2 ALBUMIN (test code = ALB) g/dl 3.4-5.0 BILIRUBIN TOTAL (test code = BILT) mg/dl 0.2-1.0 BILIRUBIN DIRECT (test code = BILD) mg/dl 0.0-0.4 SGOT/AST (test code = AST) U/L 15-37 SGPT/ALT (test code = ALT) U/L 12-78 ALKALINE PHOSPHATASE TOTAL (test code U/L 50-136 = ALKP) [id number] 21:46:00 Test Item Value Reference Range Interpretation Comments LIPASE (test code = LIP) U/L 73-393 CBC W/AUTO [id number] 21:43:00 Test Item Value Reference Range Interpretation [...]
[2021-12-01] MEDS ORDERED: METOCLOPRAMIDE 10 MG/2mL INJ ONE (12:00)
[2021-12-01] MEDS ORDERED: DIPHENHYDRAMINE 50 MG/ML VIAL ONE (12:00)
[2021-12-01] MEDS ORDERED: FAMOTIDINE 20 MG/2 ML VIAL IV ONE (12:02)
[2021-12-01] MEDS ORDERED: LORazepam 2 MG/ML VIAL ONE (12:02)
[2021-12-01 12:07] LABS: Absolute Lymphocytes (CBC) 1.2 K/uL (0.7-4.9); Lymphocytes % 17.1 % (15.3-44.8); MCV 82.6 fL (80-100); MPV 10.4 fL (7.6-11.3); RBC Red Blood Cell Count 4.84 M/uL (3.86-4.86)
[2021-12-01 12:20] LABS: Albumin 3.7 g/dL (3.4-5.0); Bilirubin Total 0.3 mg/dL (0.2-1.0); Potassium 3.8 mmol/L (3.5-5.1); Protein, Total 7.6 g/dL (6.4-8.2)
[2021-12-01] MEDS ORDERED: PROMETHAZINE INJ 25 MG/ML AMP ONE (13:40)
[2021-12-01] MEDS ORDERED: Ringers Lactate 1,000 ML IV ONE ×2 (13:41→15:57)
[2021-12-01] MEDS ORDERED: PANTOPRAZOLE 40 MG INJ ONE (15:57)
[2021-12-01] MEDS ORDERED: HALOPERIDOL LACT 5 MG/ML INJ ONE (17:04)
[2021-12-01 17:16] LABS: Urine Blood Negative (Negative); Urine Glucose Negative (Negative); Urine Protein 1+ (Negative); Urine pH 8.5 (5.0-7.0)
--- NOTE | 2021-12-01 17:52 | ER ---
Nurse's Notes [facility] Name: Efrem Pastor Age: 31 yrs Sex: Female : 1990 Arrival Date: 12/01/2021 Time: 11:22 Bed 15 Private MD: Diagnosis: Gastroparesis Presentation: 12/01 11:28 Chief complaint: Patient states: vomiting started this morning, has gastroparesis. eh3 Coronavirus screen: Vaccine status: Patient reports receiving the 2nd dose of the covid vaccine. Ebola Screen: No symptoms or risks identified at this time. Initial Sepsis Screen: Does the patient meet any 2 criteria? No. Patient's initial sepsis screen is negative. Does the patient have a suspected source of infection? No. Patient's initial sepsis screen is negative. Risk Assessment: Do you want to hurt yourself or someone else? Patient reports no desire to harm self or others. Onset of symptoms was December 01, 2021. 11:28 Method Of Arrival: Ambulatory [facility] 11:28 Acuity: BELINDA 3 3 Triage Assessment: 11:34 General: Appears distressed, uncomfortable, Behavior is cooperative, appropriate for [facility] age. 11:37 Pain: Complains of pain in right lower quadrant and left lower quadrant Pain currently eh3 is 10 out of 10 on a pain scale. EENT: No signs and/or symptoms were reported regarding the EENT system. Neuro: Level of Consciousness is awake, alert, obeys commands, Oriented to person, place, time, situation. Cardiovascular: Capillary refill < 3 seconds Patient's skin is warm and dry. Respiratory: Airway is patent Respiratory effort is even, unlabored. GI: Abdomen is round non-distended, Pt is actively vomiting Last meal was November 30, 2021. Abdomen is tender to palpation X 4 quads. : No signs and/or symptoms were reported regarding the genitourinary system. Derm: No signs and/or symptoms reported regarding the dermatologic system. Musculoskeletal: No signs and/or symptoms reported regarding the musculoskeletal system. 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 - Social history:: Smoking status: Reported history of juuling and/or vaping. Patient uses alcohol, weekly. Screenin:40 Abuse screen: Denies threats or abuse. Denies injuries from another. Nutritional ko1 screening: No deficits noted. Tuberculosis screening: No symptoms or risk factors identified. Fall Risk None identified. Assessment: 11:40 General: Appears distressed, uncomfortable, ill, Behavior is calm, cooperative, ko1 appropriate for age. Pain: Complains of pain in abdomen and left lower quadrant and right lower quadrant and left upper quadrant and right upper quadrant. Neuro: No deficits noted. Cardiovascular: No deficits noted. Respiratory: No deficits noted. GI: Bowel sounds present X 4 quads. Reports lower abdominal pain, upper abdominal pain, nausea, vomiting, since this morning. : No deficits noted. EENT: No deficits noted. Derm: No deficits noted. Musculoskeletal: No deficits noted. Vital Signs: 11:28 BP 145 / 104; Pulse 89; Resp 16; Temp 97.9(O); Pulse Ox 98% on R/A; Weight 58.97 kg; 3 Height 5 ft. 2 in. (157.48 cm); Pain 10/10; 12:53 BP 136 / 100; Pulse 94; Pulse Ox 97% ; ko1 14:14 BP 134 / 83; Pulse 80; Resp 14; Pulse Ox 98% ; ko1 16:15 BP 145 / 104; Pulse 88; Pulse Ox 98% ; ko1 17:36 BP 138 / 82; Pulse 85; Resp 18; Pulse Ox 99% ; ko1 11:28 Body Mass Index 23.78 (58.97 kg, 157.48 cm) [facility] ED Course: 11:22 Patient arrived in ED. mr 11:27 Lasha Carey PA is PHCP. [facility] 11:27 Faheem Stewart MD is Attending Physician. [facility] 11:30 Client placed on continuous cardiac and pulse oximetry monitoring. NIBP monitoring ko1 applied. 11:32 Triage completed. 3 11:35 Rehana Lamb, RN is Primary Nurse. ko1 11:37 Arm band placed on right wrist. eh3 11:40 Patient has correct armband on for positive identification. Bed in low position. Call ko1 light in reach. Side rails up X 1. 11:45 Inserted saline lock: 22 gauge in right antecubital area, using aseptic technique. ko1 Blood collected. 11:55 CBC with Diff Sent. ko1 11:56 CMP Sent. ko1 11:56 Lipase Sent. ko1 17:51 Ced Hood MD is Referral Physician. [facility] 17:59 No provider procedures requiring assistance completed. IV discontinued, intact, ko1 bleeding controlled, No redness/swelling at site. Pressure dressing applied. Administered Medications: 12:09 Drug: Reglan (metoCLOPramide) 20 mg Route: IVP; Site: right antecubital; ko1 12:18 Drug: Pepcid (famotidine) 20 mg Route: IVP; Site: right antecubital; ko1 12:20 Drug: diphenhydrAMINE 25 mg Route: IVP; Site: right antecubital; ko1 12:21 Drug: Ativan (LORazepam) 1 mg Route: IVP; Site: right antecubital; ko1 13:44 Drug: Lactated Ringers Solution 1000 ml Route: IV; Rate: 1000 ml/hr; Site: right ko1 antecubital; 13:45 Drug: Promethazine 12.5 mg Route: IVP; Site: right antecubital; ko1 16:06 Drug: ProTONIX (pantoprazole) 40 mg Route: IVP; Site: right antecubital; ko1 16:06 Drug: Lactated Ringers Solution 1000 ml Route: IV; Rate: 1000 ml/hr; Site: right ko1 antecubital; 17:18 Drug: HALdol (haloperidol) 5 mg Route: IVP; Site: right antecubital; ko1 Medication: 11:40 VIS not applicable for this client. ko1 Intake: 14:24 IV: 1000ml (IV Fluid); Total: 1000ml. ko1 18:03 IV: 1000ml (IV Fluid); Total: 2000ml. ko1 Outcome: 17:51 Discharge ordered by MD. walter 17:59 Discharged to home ambulatory, with family. ko1 17:59 Condition: improved 17:59 Discharge instructions given to patient, family, Instructed on discharge instructions, follow up and referral plans. medication usage, Demonstrated understanding of instructions, follow-up care, medications, Prescriptions given X 2. 18:13 Patient left the ED. ko1 Signatures: Lasha Carey PA PA jmm Rivera, Mary mr Ginna Gillespie, BRUCE RN 3 Rehana Lamb RN RN ko1
--- NOTE | 2021-12-01 17:52 | EDPHYS ---
Physician Documentation [facility] Name: Efrem Pastor Age: 31 yrs Sex: Female : 1990 Arrival Date: 12/01/2021 Time: 11:22 Bed 15 Private MD: ED Physician Faheem Stewart HPI: 12/01 11:43 This 31 yrs old Female presents to ER via Ambulatory with complaints of Abdominal Pain, jmm Vomiting. 11:43 The patient presents with abdominal pain. Onset: The symptoms/episode began/occurred jmm gradually. The symptoms do not radiate. Associated signs and symptoms: Pertinent positives: nausea and vomiting. This is a 31-year-old female with history of gastroparesis that presents emerged part with complaints of acute onset vomiting beginning earlier this morning. Patient has had similar episodes multiple times. The character of his pain is similar to previous episodes. Denies diarrhea. Denies dysuria. Denies fever.. 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 - Social history:: Smoking status: Reported history of juuling and/or vaping. Patient uses alcohol, weekly. ROS: 11:43 Constitutional: Negative for fever, chills, and weight loss, Cardiovascular: Negative jmm for chest pain, palpitations, and edema, Respiratory: Negative for shortness of breath, cough, wheezing, and pleuritic chest pain. 11:43 Constitutional: 11:43 Abdomen/GI: Positive for abdominal pain, vomiting. 11:43 All other systems are negative. Exam: 11:43 Constitutional: This is a well developed, well nourished patient who is awake, alert, jmm and in no acute distress. Head/Face: atraumatic. Eyes: EOMI, no conjunctival erythema appreciated ENT: Moist Mucus Membranes Neck: Trachea midline, Supple Chest/axilla: Normal chest wall appearance and motion. Cardiovascular: Regular rate and rhythm. No edema appreciated Respiratory: Normal respirations, no respiratory distress appreciated 11:43 Back: Normal ROM Skin: General appearance color normal MS/ Extremity: Moves all extremities, no obvious deformities appreciated, no edema noted to the lower extremities Neuro: Awake and alert Psych: Behavior is normal, Mood is normal, Patient is cooperative and pleasant 11:43 Abdomen/GI: Inspection: abdomen appears normal, Bowel sounds: normal, Palpation: soft, in all quadrants. Vital Signs: 11:28 BP 145 / 104; Pulse 89; Resp 16; Temp 97.9(O); Pulse Ox 98% on R/A; Weight 58.97 kg; 3 Height 5 ft. 2 in. (157.48 cm); Pain 10/10; 12:53 BP 136 / 100; Pulse 94; Pulse Ox 97% ; ko1 14:14 BP 134 / 83; Pulse 80; Resp 14; Pulse Ox 98% ; ko1 16:15 BP 145 / 104; Pulse 88; Pulse Ox 98% ; ko1 17:36 BP 138 / 82; Pulse 85; Resp 18; Pulse Ox 99% ; ko1 11:28 Body Mass Index 23.78 (58.97 kg, 157.48 cm) [facility] MDM: 11:43 Patient medically screened. [facility] 17:50 Data reviewed: vital signs, nurses notes. Counseling: I had a detailed discussion with [facility] the patient and/or guardian regarding: the historical points, exam findings, and any diagnostic results supporting the discharge/admit diagnosis, lab results, the need for outpatient follow up, to return to the emergency department if symptoms worsen or persist or if there are any questions or concerns that arise at home. ED course: Labs are unremarkable. Patient vies to follow-up with gastroenterology for further evaluation otherwise given strict return precautions. Patient triggers plan of care.. 12/01 11:44 Order name: CBC with Diff; Complete Time: 12:31 [facility] 12/01 11:44 Order name: CMP; Complete Time: 12:31 [facility] 12/01 11:44 Order name: Lipase; Complete Time: 12:31 [facility] 12/01 17:17 Order name: Urine Dipstick-Ancillary; Complete Time: 17:18 [facility] 12/01 11:44 Order name: IV Saline Lock; Complete Time: 11:55 [facility] 12/01 11:44 Order name: Labs collected and sent; Complete Time: 11:55 [facility] 12/01 11:44 Order name: Urine Dipstick-Ancillary (obtain specimen); Complete Time: 17:18 [facility] 12/01 11:44 Order name: Urine Test (obtain specimen); Complete Time: 17:18 [facility] 12/01 16:56 Order name: Misc. Order: need urine for disposition; Complete Time: 17:06 [facility] Administered Medications: 12:09 Drug: Reglan (metoCLOPramide) 20 mg Route: IVP; Site: right antecubital; ko1 12:18 Drug: Pepcid (famotidine) 20 mg Route: IVP; Site: right antecubital; ko1 12:20 Drug: diphenhydrAMINE 25 mg Route: IVP; Site: right antecubital; ko1 12:21 Drug: Ativan (LORazepam) 1 mg Route: IVP; Site: right antecubital; ko1 13:44 Drug: Lactated Ringers Solution 1000 ml Route: IV; Rate: 1000 ml/hr; Site: right ko1 antecubital; 13:45 Drug: Promethazine 12.5 mg Route: IVP; Site: right antecubital; ko1 16:06 Drug: ProTONIX (pantoprazole) 40 mg Route: IVP; Site: right antecubital; ko1 16:06 Drug: Lactated Ringers Solution 1000 ml Route: IV; Rate: 1000 ml/hr; Site: right ko1 antecubital; 17:18 Drug: HALdol (haloperidol) 5 mg Route: IVP; Site: right antecubital; ko1 Disposition: 18:54 Co-signature as Attending Physician, Faheem Stewart MD. rn Disposition Summary: 12/01/21 17:51 Discharge Ordered Location: Home [facility] Condition: Stable [facility] Diagnosis - Gastroparesis [facility] Followup: [facility] - With: Ced Hood MD - When: 2 - 3 days - Reason: Recheck today's complaints, Continuance of care, Re-evaluation by your physician Discharge Instructions: - Discharge Summary Sheet [facility] - Gastroparesis [facility] Forms: - Medication Reconciliation Form [facility] - Thank You Letter [facility] - Antibiotic Education [facility] - Prescription Opioid Use [facility] Prescriptions: - Protonix 40 mg Oral Tablet - take 1 tablet by ORAL route once daily; 30 tablet; Refills: 0, Product [facility] Selection Permitted - promethazine 25 mg Oral Tablet - take 1 tablet by ORAL route every 6 hours As needed; 30 tablet; Refills: 0, [facility] Product Selection Permitted Signatures: Dispatcher [employer] Lasha Aquino PA PA Faheem Dalal MD MD rn Ginna Gillespie RN RN eh3 Rehana Lamb RN RN ko1
[2021-12-01] MEDS ORDERED: ONDANSETRON 4 MG/2 ML VIAL ONE (18:08)
[2021-12-01 18:33] VITALS: TEMP 97.9
[2021-12-01 18:47] VITALS: BP 138/82; O2SAT 99
== END 2021-12-01 18:13 | disposition home or self-care (01) ==
LOC: ER 11:19
DX: K31.84 Gastroparesis (principal); Z88.8 Allergy status to other drugs, medicaments and biological substances
CPT/HCPCS: 85025; 36415; 81003; 83690; 80053; 96375; 96374; 99284; J1630; J2765; J2550; J1200; C9113; J7120 ×2; J2405

== ENCOUNTER 2022-01-05 08:39 | Emergency (ER) | payer OTHER ==
--- OUTSIDE RECORDS SUMMARY | 2022-01-05 08:43 | XMS REPORT | Continuity of Care Document ---
:1990 Author Organization [facility] t Address [address] [place] [address] Care Team Providers Name Role Phone Kaelyn [...] No Known DA Active U 0 [facility] Allergie 06-24 [facility] No Known DA Active U [facility] -16 [facility] scopolam DA Active IA 2020-0 [facility] -10 [facility] scopolam DA Active IA RASH-HIVES [facility] ine 4-10 [facility] No Known DA Active U [facility] Allergie 6-20 [facility] 00:[facility] No Known DA Active U [facility] Allergie 6-20 [facility] 00:[facility]: l [facility] No Known DA Active U [facility] Drug 9-15 [facility] 00:00: [facility] nc l [facility] No Known DA Active U NONE [facility] Drug 9-15 [facility] 00:[facility]: nc l Hospita [facility] Medications This patient has no known medications. Procedures This patient has no known procedures. Encounters Start End Encounter Admission Attending Care Care Encounter Source Date/Time Date/Time Type Type Clinicians Facility Department ID 2020-06-24 Inpatient [facility] [id number] [facility] 2020-05-19 Inpatient [facility] [id number] [facility] 2019-07-30 Inpatient [facility] ER [id number] [facility] 2021-02-09 2021-02-10 Emergency EM Peguero, [facility] ER [id number] [facility] 23:10:00 00:19:00 [facility] Results Test Description [...] = 60 ml/mi n/1.73M2IF PATIENT IS AFRI CAN-MALAWIAN, MULTIPLY REPORT ED RESULT BY1.21. [Automa ashley message] The system [employer] generated this result tra nsmitted reference range [...] U/L 45-117 H (test code = ALKP) [id number] 16:11:00 Test Item Value Reference Range Interpretation Comments LIPASE (test code = LIP) 108 U/L 73-393 N URINALYSIS W REFLEX [id number] 16:05:00 Test Item Value Reference Range Interpretation [...] UA MICRO code = UAMICRO) UR HCG [id number] 16:05:00 Test Item Value Reference Range Interpretation Comments UR HCG QUAL (test code = HCGQLU) NEGATIVE NEGATIVE URINALYSIS W REFLEX [id number] 16:05:00 Test Item Value Reference Range Interpretation [...] DO UA MICRO code = UAMICRO) UA [id number] 16:05:00 Test Item Value Reference Range Interpretation Comments UA WBC (test code = WBCU) 0-2 #/hpf 0-5 UA RBC (test code = RBCU) 0-2 #/hpf 0-5 UA EPITHELIAL CELLS (test code = 2+ /hpf NEG,FEW A EPIU) UA BACTERIA (test code = BACU) FEW /hpf NEGATIVE A UA AMORPHOUS SEDIMENT (test code = FEW /hpf NEG,FEW AMORU) UR HCG [id number] 16:05:00 Test Item Value Reference Range Interpretation Comments UR HCG QUAL (test code = HCGQLU) NEGATIVE NEGATIVE URINALYSIS W REFLEX [id number] 16:05:00 Test Item Value Reference Range Interpretation [...] UA MICRO code = UAMICRO) UR HCG [id number] 16:05:00 Test Item Value Reference Range Interpretation Comments UR HCG QUAL (test code = HCGQLU) NEGATIVE NEGATIVE DRUGS OF ABUSE [id number] 16:01:00 Test Item Value Reference Range Interpretation [...] code = WAS TESTE D AT THE [facility]) LISTED CUTOFFS DRUG CLASS INIT IAL TEST LEVEL AMPHETAMINES 10 00 NG/MLBARBITURAT ES 200 NG/MLBENZODIAZE PIN ES 200 NG/MLCOCAINE METABOLITE 300 NG/MLMARIJUANA METABOLITE 50 NG/MLOPIATES 30 0 NG/MLPHENCYCLID INE 25 NG/ML UR HCG [id number] 15:58:00 Test Item Value Reference Range Interpretation Comments UR HCG QUAL (test code = HCGQLU) NEGATIVE NEGATIVE URINALYSIS W REFLEX [id number] 15:58:00 Test Item Value Reference Range Interpretation [...] NEEDED? (test code = UAMICRO) CBC W/AUTO [id number] 15:52:00 Test Item Value Reference Range Interpretation [...] NORMAL code = RBCM) URINALYSIS W REFLEX [id number] 13:00:00 Test Item Value Reference Range Interpretation [...] MICRO code = UAMICRO) UA ICTOTEST FOR [id number] 13:00:00 Test Item Value Reference Range Interpretation Comments UA ICTOTEST FOR BILIRUBIN (test code POSITIVE NEGATIVE A = ICTOU) UA [id number] 13:00:00 Test Item Value Reference Range Interpretation Comments UA WBC (test code = WBCU) 0-2 #/hpf 0-5 UA RBC (test code = RBCU) 3-5 #/hpf 0-5 UA EPITHELIAL CELLS (test code = FEW /hpf NEG,FEW EPIU) UA BACTERIA (test code = BACU) FEW /hpf NEGATIVE A UA MUCUS (test code = MUCU) 1+ /hpf NEG,FEW A UR HCG [id number] 13:00:00 Test Item Value Reference Range Interpretation Comments UR HCG QUAL (test code = HCGQLU) NEGATIVE NEGATIVE DRUGS OF ABUSE [id number] 12:57:00 Test Item Value Reference Range Interpretation [...] code = WAS TESTE D AT THE [facility]) LISTED CUTOFFS DRUG CLASS INIT IAL TEST LEVEL AMPHETAMINES 10 00 NG/MLBARBITURAT ES 200 NG/MLBENZODIAZE PIN ES 200 NG/MLCOCAINE METABOLITE 300 NG/MLMARIJUANA METABOLITE 50 NG/MLOPIATES 30 0 NG/MLPHENCYCLID INE 25 NG/ML URINALYSIS W REFLEX [id number] 12:56:00 Test Item Value Reference Range Interpretation [...] MICRO code = UAMICRO) UA ICTOTEST FOR [id number] 12:56:00 Test Item Value Reference Range Interpretation Comments UA ICTOTEST FOR BILIRUBIN (test code POSITIVE NEGATIVE A = ICTOU) UR HCG [id number] 12:56:00 Test Item Value Reference Range Interpretation Comments UR HCG QUAL (test code = HCGQLU) NEGATIVE NEGATIVE URINALYSIS W REFLEX [id number] 12:53:00 Test Item Value Reference Range Interpretation [...] UA MICRO code = UAMICRO) UR HCG [id number] 12:53:00 Test Item Value Reference Range Interpretation Comments UR HCG QUAL (test code = HCGQLU) NEGATIVE NEGATIVE URINALYSIS W REFLEX [id number] 12:53:00 Test Item Value Reference Range Interpretation [...] UA MICRO code = UAMICRO) UR HCG [id number] 12:53:00 Test Item Value Reference Range Interpretation Comments UR HCG QUAL (test code = HCGQLU) NEGATIVE NEGATIVE - XR ABDOMEN [id number] 12:16:00 [facility] BRE[facility]NA QUEEN : 1990 Sex: F FAX: Sawyer Centeno II [place]: St: PRE Name: BREANNA QUEEN FSED : 1990 Age/S: 30/F [address] #: [id number] Loc: [place] [address] Phys: Sawyer Centeno II, MD Acct: [id number] Dis Date: Status: PRE ER PHONE #: Exam Date: 05/19/2020 1212 FAX #: Reason: abdominal pain EXAMS: CPT CODE: [id number] XR ABDOMEN 2V [id number] - XR ABDOMEN 2V PROVIDED REASON FOR [...] By: [email or web address] Orig Print D/T: S: 05/19/2020 (6443) PAGE 1 Signed ReportBASIC METABOLIC PANEL 2020-05-19 [...] RESULT BY1.21. [Automated mess age] The system [employer] generated this result transmitted ref erence range: >=60. Th e reference range was not used to int erpret this result as normal/abnormal . CREATININE (test code 0.64 mg/dl 0.55-1.02 N = CREAT) CALCIUM (test code = 9.8 mg/dL 8.5-10.1 N CA) LIVER [id number] 12:08:00 Test Item Value Reference Range Interpretation [...] 119 U/L 45-117 H code = ALKP) [id number] 12:08:00 Test Item Value Reference Range Interpretation Comments LIPASE (test code = LIP) 67 U/L 73-393 L CBC W/AUTO [id number] 11:43:00 Test Item Value Reference Range Interpretation [...] NORMAL code = RBCM) URINALYSIS W REFLEX [id number] 22:06:00 Test Item Value Reference Range Interpretation [...] MUCU) 2+ /hpf NEG,FEW A BASIC METABOLIC [id number] 21:54:00 Test Item Value Reference Range Interpretation [...] = 9.3 mg/dL 8.5-10.1 N CA) LIVER [id number] 21:54:00 Test Item Value Reference Range Interpretation [...] 69 U/L 50-136 N code = ALKP) [id number] 21:54:00 Test Item Value Reference Range Interpretation Comments LIPASE (test code = LIP) 63 U/L 73-393 L BASIC METABOLIC [id number] 21:53:00 Test Item Value Reference Range Interpretation [...] = 9.3 mg/dL 8.5-10.1 N CA) LIVER [id number] 21:53:00 Test Item Value Reference Range Interpretation [...] TOTAL (test U/L 50-136 code = ALKP) [id number] 21:53:00 Test Item Value Reference Range Interpretation Comments LIPASE (test code = LIP) 63 U/L 73-393 L BASIC METABOLIC [id number] 21:52:00 Test Item Value Reference Range Interpretation [...] = 9.3 mg/dL 8.5-10.1 N CA) LIVER [id number] 21:52:00 Test Item Value Reference Range Interpretation [...] TOTAL (test U/L 50-136 code = ALKP) [id number] 21:52:00 Test Item Value Reference Range Interpretation Comments LIPASE (test code = LIP) 63 U/L 73-393 L BASIC METABOLIC [id number] 21:51:00 Test Item Value Reference Range Interpretation [...] = 9.3 mg/dL 8.5-10.1 N CA) LIVER [id number] 21:51:00 Test Item Value Reference Range Interpretation [...] TOTAL (test U/L 50-136 code = ALKP) [id number] 21:51:00 Test Item Value Reference Range Interpretation Comments LIPASE (test code = LIP) 63 U/L 73-393 L BASIC METABOLIC [id number] 21:49:00 Test Item Value Reference Range Interpretation [...] = CA) 9.3 mg/dL 8.5-10.1 N LIVER [id number] 21:49:00 Test Item Value Reference Range Interpretation [...] TOTAL (test U/L 50-136 code = ALKP) [id number] 21:49:00 Test Item Value Reference Range Interpretation Comments LIPASE (test code = LIP) 63 U/L 73-393 L BASIC METABOLIC [id number] 21:48:00 Test Item Value Reference Range Interpretation [...] = CA) 9.3 mg/dL 8.5-10.1 N LIVER [id number] 21:48:00 Test Item Value Reference Range Interpretation Comments TOTAL PROTEIN (test code = PROT) g/dl 6.4-8.2 ALBUMIN (test code = ALB) g/dl 3.4-5.0 BILIRUBIN TOTAL (test code = BILT) mg/dl 0.2-1.0 BILIRUBIN DIRECT (test code = BILD) mg/dl 0.0-0.4 SGOT/AST (test code = AST) U/L 15-37 SGPT/ALT (test code = ALT) U/L 12-78 ALKALINE PHOSPHATASE TOTAL (test code U/L 50-136 = ALKP) [id number] 21:48:00 Test Item Value Reference Range Interpretation Comments LIPASE (test code = LIP) U/L 73-393 BASIC METABOLIC [id number] 21:46:00 Test Item Value Reference Range Interpretation [...] (test code = CA) mg/dL 8.5-10.1 LIVER [id number] 21:46:00 Test Item Value Reference Range Interpretation Comments TOTAL PROTEIN (test code = PROT) g/dl 6.4-8.2 ALBUMIN (test code = ALB) g/dl 3.4-5.0 BILIRUBIN TOTAL (test code = BILT) mg/dl 0.2-1.0 BILIRUBIN DIRECT (test code = BILD) mg/dl 0.0-0.4 SGOT/AST (test code = AST) U/L 15-37 SGPT/ALT (test code = ALT) U/L 12-78 ALKALINE PHOSPHATASE TOTAL (test code U/L 50-136 = ALKP) [id number] 21:46:00 Test Item Value Reference Range Interpretation Comments LIPASE (test code = LIP) U/L 73-393 CBC W/AUTO [id number] 21:43:00 Test Item Value Reference Range Interpretation [...]
[2022-01-05] MEDS ORDERED: METOCLOPRAMIDE 10 MG/2mL INJ ONE ×2 (08:59→12:03)
[2022-01-05] MEDS ORDERED: DIPHENHYDRAMINE 50 MG/ML VIAL ONE ×2 (08:59→12:03)
[2022-01-05] MEDS ORDERED: NA CHLORIDE 0.9% 1,000 ML ONE ×2 (09:00→09:06)
[2022-01-05] MEDS ORDERED: FAMOTIDINE 20 MG/2 ML VIAL IV ONE (09:00)
[2022-01-05 09:02] LABS: Absolute Lymphocytes (CBC) 1.7 K/uL (0.7-4.9); Hematocrit 42.5 % (36.0-45.0); Lymphocytes % 19.8 % (15.3-44.8); MCV 84.8 fL (80-100); MPV 10.6 fL (7.6-11.3); RBC Red Blood Cell Count 5.01 M/uL (3.86-4.86)
[2022-01-05] MEDS ORDERED: HALOPERIDOL LACT 5 MG/ML INJ ONE (09:06)
[2022-01-05 09:19] LABS: Bilirubin Total 0.4 mg/dL (0.2-1.0); Potassium 3.7 mmol/L (3.5-5.1); Protein, Total 8.1 g/dL (6.4-8.2)
[2022-01-05] MEDS ORDERED: KETAMINE HCL 500 MG/5 ML VIAL ONE (10:22)
[2022-01-05] MEDS ORDERED: ONDANSETRON 4 MG/2 ML VIAL ONE (10:53)
[2022-01-05] MEDS ORDERED: NA CHLORIDE 0.9% 250 ML ONE (12:03)
--- NOTE | 2022-01-05 14:01 | ER ---
Nurse's Notes [facility] Name: Efrem Pastor Age: 31 yrs Sex: Female : 1990 Arrival Date: 01/05/2022 Time: 08:40 Bed 5 Private MD: Kelton Daniels Diagnosis: Gastroparesis Presentation: 01/05 08:45 Chief complaint: Chief complaint: Patient states: abd pain, N/V since this morning. jl7 Coronavirus screen: At this time, the client does not indicate any symptoms associated with coronavirus-19. Ebola Screen: No symptoms or risks identified at this time. Initial Sepsis Screen: Does the patient meet any 2 criteria? No. Patient's initial sepsis screen is negative. Does the patient have a suspected source of infection? No. Patient's initial sepsis screen is negative. Risk Assessment: Do you want to hurt yourself or someone else? Patient reports no desire to harm self or others. Onset of symptoms was January 05, 2022. 08:45 Method Of Arrival: Ambulatory [facility] 08:45 Acuity: BELINDA 3 jl7 Triage Assessment: 08:47 General: Appears in no apparent distress. ill, Behavior is calm, cooperative. Pain: jl7 Complains of pain in abdomen. GI: Reports nausea, vomiting. 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 - Social history:: Smoking status: Patient reports the use of cigarette tobacco products, Patient uses CBD-THC daily. Screenin:13 Abuse screen: Denies threats or abuse. Nutritional screening: No deficits noted. ll1 Tuberculosis screening: No symptoms or risk factors identified. Fall Risk IV access (20 points). Gait- Weak (10 pts.). Total Cheng Fall Scale indicates Low Risk Score (25-44 pts). Fall prevention measures have been instituted. Side Rails Up X 2 Placed close to Nursing Station Frequent Obs/Assesments occuring Family Present and informed to notify staff if they need to leave bedside As available Patient and Family Educated on Fall Prevention Program and strategies. Assessment: 09:13 Reassessment: No changes from previously documented assessment. Patient and/or family ll1 updated on plan of care and expected duration. Pain level reassessed. Patient is alert, oriented x 3, equal unlabored respirations, skin warm/dry/pink. 10:20 Reassessment: No changes from previously documented assessment. Patient states symptoms ll1 have not improved. 10:38 Reassessment: No changes from previously documented assessment. Patient and/or family ll1 updated on plan of care and expected duration. Pain level reassessed. 10:57 Reassessment: No changes from previously documented assessment. Patient and/or family ll1 updated on plan of care and expected duration. Pain level reassessed. 12:10 Reassessment: No changes from previously documented assessment. Patient and/or family ll1 updated on plan of care and expected duration. Pain level reassessed. Patient is alert, oriented x 3, equal unlabored respirations, skin warm/dry/pink. 12:53 Reassessment: No changes from previously documented assessment. Patient and/or family ll1 updated on plan of care and expected duration. Pain level reassessed. PO challenge in progress. 14:16 Reassessment: No changes from previously documented assessment. Patient and/or family ll1 updated on plan of care and expected duration. Pain level reassessed. 14:48 GI: Bowel sounds present X 4 quads. Abd is soft Abdomen is tender to palpation X 4 ll1 quads. Vital Signs: 08:45 BP 140 / 102; Pulse 93; Resp 16; Temp 97.6; Pulse Ox 96% ; jl7 10:38 BP 132 / 100; Pulse 79; Resp 16; Pulse Ox 100% on R/A; ll1 10:57 BP 136 / 102; Pulse 56; Pulse Ox 99% ; ll1 11:29 BP 145 / 89; Pulse 60; Resp 15; Pulse Ox 99% on R/A; ll1 12:10 BP 139 / 102; Pulse 60; Resp 16; Pulse Ox 99% on R/A; ll1 12:53 BP 130 / 87; Pulse 75; Resp 15; Pulse Ox 97% on R/A; ll1 14:16 BP 126 / 77; Pulse 60; Resp 15; Pulse Ox 98% ; ll1 14:47 BP 130 / 80; Pulse 62; Resp 14; Pulse Ox 98% on R/A; Pain 8/10; ll1 ED Course: 08:40 Patient arrived in ED. am2 08:40 Kelton Daniels MD is Private Physician. am2 08:41 Sherrie Pinto FNP-C [facility] kb 08:41 Brayan Terrell MD is Attending Physician. kb 08:45 Maxwell Hughes RN is Primary Nurse. jl7 08:47 Triage completed. jl7 08:47 Arm band placed on right wrist. jl7 09:00 Inserted saline lock: 22 gauge in right antecubital area, using aseptic technique. ll1 Blood collected. 09:12 Andre Helm RN is Primary Nurse. ll1 09:13 Patient has correct armband on for positive identification. Bed in low position. Call ll1 light in reach. Side rails up X 1. Client placed on continuous cardiac and pulse oximetry monitoring. NIBP monitoring applied. 10:33 Kishor Nj DO is Attending Physician. kb 14:00 Kelton Daniels MD is Referral Physician. kb 14:48 No provider procedures requiring assistance completed. IV discontinued, intact, ll1 bleeding controlled, No redness/swelling at site. Pressure dressing applied. Administered Medications: 09:03 Not Given (Physician Discretion): Reglan (metoCLOPramide) 10 mg IVP once; over 1 to 2 kb minutes 09:03 Not Given (Physician Discretion): Benadryl (diphenhydrAMINE) 12.5 mg IVP once kb 09:05 Drug: NS 0.9% 1000 ml Route: IV; Rate: 1 bolus; Site: right antecubital; ll1 12:10 Follow up: Response: No adverse reaction; IV Status: Completed infusion; IV Intake: ll1 1000ml 09:06 Drug: Pepcid (famotidine) 20 mg Route: IVP; Site: right antecubital; ll1 10:31 Follow up: Response: No adverse reaction ll1 09:12 Drug: HALdol (as decanoate) 5 mg Route: IM; Site: right gluteus; ll1 10:31 Follow up: Response: No adverse reaction ll1 10:38 Drug: Ketamine 10 mg Route: IVP; Site: right antecubital; ll1 12:09 Follow up: Response: No adverse reaction; Pain is unchanged, physician notified; RASS: ll1 Alert and Calm (0) 11:04 Drug: Zofran (Ondansetron) 4 mg Route: IVP; Site: right antecubital; kr3 12:09 Follow up: Response: No adverse reaction; Nausea is decreased ll1 12:09 Drug: Benadryl (diphenhydrAMINE) 12.5 mg Route: IVP; Site: right antecubital; ll1 14:16 Follow up: Response: No adverse reaction ll1 12:09 Drug: Reglan (metoCLOPramide) 10 mg Route: IVP; Site: right antecubital; ll1 14:16 Follow up: Response: No adverse reaction ll1 14:02 CANCELLED (Physician Discretion): Phenergan (promethazine) 12.5 mg IVP once kb 14:15 Drug: Ketorolac 15 mg Route: IVP; Site: right antecubital; ll1 14:47 Follow up: Response: No adverse reaction; Pain is decreased; RASS: Alert and Calm (0) ll1 14:15 Drug: Phenergan (promethazine) 25 mg Route: IM; Site: left gluteus; ll1 14:47 Follow up: Response: No adverse reaction; Nausea is decreased; RASS: Alert and Calm (0) ll1 Medication: 09:13 VIS not applicable for this client. ll1 Intake: 12:10 IV: 1000ml; Total: 1000ml. ll1 Outcome: 14:00 Discharge ordered by . thomas 14:48 Discharged to home via wheelchair. ll1 14:48 Condition: stable 14:48 Discharge instructions given to patient, Instructed on discharge instructions, follow up and referral plans. Demonstrated understanding of instructions, follow-up care. 14:48 Patient left the ED. ll1 Signatures: Sherrie Pinto, CLAUDIAC AUTO MECHANIC APPRENTICE-Maxwell Mercado RN RN jl7 Dedra Matamoros am2 Andre Helm RN RN ll1 Rita Houser RN RN kr3
--- NOTE | 2022-01-05 14:01 | EDPHYS ---
Physician Documentation [facility] Name: Efrem Pastor Age: 31 yrs Sex: Female : 1990 Arrival Date: 01/05/2022 Time: 08:40 Bed 5 Private MD: Kelton Daniels ED Physician Kishor Nj HPI: 01/05 11:32 This 31 yrs old Female presents to ER via Ambulatory with complaints of Abdominal Pain, kb Nausea/Vomiting. 11:32 The patient presents with abdominal pain that is diffuse. Onset: The symptoms/episode kb began/occurred yesterday. The symptoms do not radiate. Associated signs and symptoms: Pertinent positives: nausea and vomiting, Pertinent negatives: fever. The symptoms are described as constant. Modifying factors: The symptoms are alleviated by nothing, the symptoms are aggravated by nothing. Severity of pain: At its worst the pain was moderate in the emergency department the pain is unchanged. The patient has experienced similar episodes in the past, chronically. The patient has not recently seen a physician. Pt reports flare up of gastroparesis that started last night. 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 - Social history:: Smoking status: Patient reports the use of cigarette tobacco products, Patient uses CBD-THC daily. ROS: 11:31 Constitutional: Negative for fever, chills, and weight loss. kb 11:31 Abdomen/GI: Positive for abdominal pain, nausea and vomiting. 11:31 All other systems are negative. Exam: 11:32 Constitutional: This is a well developed, well nourished patient who is awake, alert, kb and in no acute distress. Head/Face: Normocephalic, atraumatic. ENT: Moist Mucous membranes Cardiovascular: Regular rate and rhythm with a normal S1 and S2. No gallops, murmurs, or rubs. No pulse deficits. Respiratory: Respirations even and unlabored. No increased work of breathing. Talking in full sentences Skin: Warm, dry with normal turgor. Normal color. MS/ Extremity: Pulses equal, no cyanosis. Neurovascular intact. Full, normal range of motion. Neuro: Awake and alert, GCS 15, oriented to person, place, time, and situation. Moves all extremities. Normal gait. Psych: Awake, alert, with orientation to person, place and time. Behavior, mood, and affect are within normal limits. 11:32 Abdomen/GI: Inspection: abdomen appears normal, Bowel sounds: normal, Palpation: soft, in all quadrants, mild abdominal tenderness, in all quadrants. Vital Signs: 08:45 BP 140 / 102; Pulse 93; Resp 16; Temp 97.6; Pulse Ox 96% ; jl7 10:38 BP 132 / 100; Pulse 79; Resp 16; Pulse Ox 100% on R/A; ll1 10:57 BP 136 / 102; Pulse 56; Pulse Ox 99% ; ll1 11:29 BP 145 / 89; Pulse 60; Resp 15; Pulse Ox 99% on R/A; ll1 12:10 BP 139 / 102; Pulse 60; Resp 16; Pulse Ox 99% on R/A; ll1 12:53 BP 130 / 87; Pulse 75; Resp 15; Pulse Ox 97% on R/A; ll1 14:16 BP 126 / 77; Pulse 60; Resp 15; Pulse Ox 98% ; ll1 14:47 BP 130 / 80; Pulse 62; Resp 14; Pulse Ox 98% on R/A; Pain 8/10; ll1 MDM: 08:47 Patient medically screened. kb 11:31 Data reviewed: vital signs, nurses notes. Data interpreted: Pulse oximetry: on room air kb is 99 %. Interpretation: normal. Counseling: I had a detailed discussion with the patient and/or guardian regarding: the historical points, exam findings, and any diagnostic results supporting the discharge/admit diagnosis, lab results, the need for outpatient follow up, a template fitter, to return to the emergency department if symptoms worsen or persist or if there are any questions or concerns that arise at home. 01/05 08:48 Order name: CBC with Diff; Complete Time: 09:04 kb 01/05 08:48 Order name: CMP; Complete Time: 09:19 kb 01/05 08:48 Order name: Lipase; Complete Time: 09:19 kb 01/05 08:48 Order name: IV Saline Lock; Complete Time: 08:49 kb 01/05 08:48 Order name: Labs collected and sent; Complete Time: 08:49 kb 01/05 11:58 Order name: PO challenge; Complete Time: 14:47 kb 01/05 12:48 Order name: PO challenge; Complete Time: 12:55 kb Administered Medications: 09:03 Not Given (Physician Discretion): Reglan (metoCLOPramide) 10 mg IVP once; over 1 to 2 kb minutes 09:03 Not Given (Physician Discretion): Benadryl (diphenhydrAMINE) 12.5 mg IVP once kb 09:05 Drug: NS 0.9% 1000 ml Route: IV; Rate: 1 bolus; Site: right antecubital; ll1 12:10 Follow up: Response: No adverse reaction; IV Status: Completed infusion; IV Intake: ll1 1000ml 09:06 Drug: Pepcid (famotidine) 20 mg Route: IVP; Site: right antecubital; ll1 10:31 Follow up: Response: No adverse reaction ll1 09:12 Drug: HALdol (as decanoate) 5 mg Route: IM; Site: right gluteus; ll1 10:31 Follow up: Response: No adverse reaction ll1 10:38 Drug: Ketamine 10 mg Route: IVP; Site: right antecubital; ll1 12:09 Follow up: Response: No adverse reaction; Pain is unchanged, physician notified; RASS: ll1 Alert and Calm (0) 11:04 Drug: Zofran (Ondansetron) 4 mg Route: IVP; Site: right antecubital; kr3 12:09 Follow up: Response: No adverse reaction; Nausea is decreased ll1 12:09 Drug: Benadryl (diphenhydrAMINE) 12.5 mg Route: IVP; Site: right antecubital; ll1 14:16 Follow up: Response: No adverse reaction ll1 12:09 Drug: Reglan (metoCLOPramide) 10 mg Route: IVP; Site: right antecubital; ll1 14:16 Follow up: Response: No adverse reaction ll1 14:02 CANCELLED (Physician Discretion): Phenergan (promethazine) 12.5 mg IVP once kb 14:15 Drug: Ketorolac 15 mg Route: IVP; Site: right antecubital; ll1 14:47 Follow up: Response: No adverse reaction; Pain is decreased; RASS: Alert and Calm (0) ll1 14:15 Drug: Phenergan (promethazine) 25 mg Route: IM; Site: left gluteus; ll1 14:47 Follow up: Response: No adverse reaction; Nausea is decreased; RASS: Alert and Calm (0) ll1 Disposition: 12:39 Co-signature as Attending Physician, Kishor Nj DO I was immediately available on-site ms3 in the Emergency Department for consultation in the care of the patient. Disposition Summary: 01/05/22 14:00 Discharge Ordered Location: Home kb Condition: Stable kb Diagnosis - Gastroparesis kb Followup: kb - With: Emergency Department - When: As needed - Reason: Worsening of condition Followup: kb - With: - When: 2 - 3 days - Reason: Recheck today's complaints, Continuance of care, Re-evaluation by your physician Discharge Instructions: - Discharge Summary Sheet kb - Gastroparesis kb Forms: - Medication Reconciliation Form kb - Thank You Letter kb - Antibiotic Education kb - Prescription Opioid Use kb - Work release form ll1 Signatures: Dispatcher [employer] Sherrie Stewart FNP-C FNP-Maxwell Mercado RN RN jl7 Andre Helm RN RN ll1 Kishor Nj DO DO ms3 Rita Houser RN RN kr3 Corrections: (The following items were deleted from the chart) 14:02 14:02 Phenergan (promethazine) 12.5 mg IVP once ordered. kb kb
[2022-01-05] MEDS ORDERED: KETOROLAC 30 MG/ML INJ ONE (14:09)
[2022-01-05] MEDS ORDERED: PROMETHAZINE INJ 25 MG/ML AMP ONE (14:09)
[2022-01-05 15:05] VITALS: TEMP 97.6
[2022-01-05 15:21] VITALS: O2SAT 98
[2022-01-05 15:22] VITALS: BP 130/80
== END 2022-01-05 14:48 | disposition home or self-care (01) ==
LOC: ER 08:39
DX: K31.84 Gastroparesis (principal); F43.10 Post-traumatic stress disorder, unspecified; Z88.8 Allergy status to other drugs, medicaments and biological substances; Z72.0 Tobacco use
CPT/HCPCS: 96361; 85025; 36415; 83690; 80053; 96375; 96372; 96374; 99284; J1630; J2765 ×2; J2550; J1200 ×2; J7050; J7030 ×2; J2405

== ENCOUNTER 2022-04-01 19:57 | Emergency (ER) | payer OTHER ==
--- OUTSIDE RECORDS SUMMARY | 2022-04-01 20:01 | XMS REPORT | Continuity of Care Document ---
:1990 Author Organization [facility] t Address [address] [place] [address] Care Team Providers Name Role Phone Sudhir Kaelyn Attending Clinician Unavailable Physician, No Primary or Family Admitting Clinician Unavaila ble Payers Payer Name Policy Type Policy Number Effective Date Expiration Date S ource Problems This patient has no known problems. Allergies, Adverse Reactions, Alerts Allergy Allergy Status Severity Reaction(s) Onset Inactive Treating Comm ents Source Name Type Date Date Clinician No Known DA Active U 0 [facility] No Known DA [facility] No Known DA Active U [facility] -16 [facility] scopolam [place] Active [place] [facility] scopol[place] Active [place] RASH-HIVES [facility] 4-10 [facility] No Known DA Active U [facility] Allergie 6-20 [facility] No Known DA Active U [facility] 6[facility]20 [facility] No Known DA Active U [facility] Drug 9-15 [facility] No Known DA Active U NONE [facility] Drug 9-15 [facility] Medications This patient has no known medications. Procedures This patient has no known procedures. Encounters Start End Encounter Admission Attending Care Care Encounter Source Date/Time Date/Time Type Type Clinicians Facility Department ID 2020-06-24 Inpatient [facility] [id number] [facility] 15:53:[facility]19 [facility] [id number] [facility] [facility] 2019-07-30 Inpatient [facility] ER [id number] [facility] 21:08:[address] [facility] 2021-02-09 2021-02-10 Emergency EM Peguero, [facility] ER [id number] [facility] 23:10:00 00:19:[address] [facility] Results Test Description [...] = 60 ml/mi n/1.73M2IF PATIENT IS AFRI CAN-NICARAGUAN, MULTIPLY REPORT ED RESULT BY1.21. [Automa ashley message] The system [employer] generated this result tra nsmitted reference range [...] U/L 45-117 H (test code = ALKP) [id number] 16:11:00 Test Item Value Reference Range Interpretation Comments LIPASE (test code = LIP) 108 U/L 73-393 N URINALYSIS W REFLEX [id number] 16:05:00 Test Item Value Reference Range Interpretation [...] UA MICRO code = UAMICRO) UR HCG [id number] 16:05:00 Test Item Value Reference Range Interpretation Comments UR HCG QUAL (test code = HCGQLU) NEGATIVE NEGATIVE URINALYSIS W REFLEX [id number] 16:05:00 Test Item Value Reference Range Interpretation [...] DO UA MICRO code = UAMICRO) UA [id number] 16:05:00 Test Item Value Reference Range Interpretation Comments UA WBC (test code = WBCU) 0-2 #/hpf 0-5 UA RBC (test code = RBCU) 0-2 #/hpf 0-5 UA EPITHELIAL CELLS (test code = 2+ /hpf NEG,FEW A EPIU) UA BACTERIA (test code = BACU) FEW /hpf NEGATIVE A UA AMORPHOUS SEDIMENT (test code = FEW /hpf NEG,FEW AMORU) UR HCG [id number] 16:05:00 Test Item Value Reference Range Interpretation Comments UR HCG QUAL (test code = HCGQLU) NEGATIVE NEGATIVE URINALYSIS W REFLEX [id number] 16:05:00 Test Item Value Reference Range Interpretation [...] UA MICRO code = UAMICRO) UR HCG [id number] 16:05:00 Test Item Value Reference Range Interpretation Comments UR HCG QUAL (test code = HCGQLU) NEGATIVE NEGATIVE DRUGS OF ABUSE [id number] 16:01:00 Test Item Value Reference Range Interpretation Comments UR COCAINE (test code NEGATIVE ng/ml NEGATIVE = COCAU) UR CANNABINOIDS (test POSITIVE ng/ml NEGATIVE A DALY UE EXCEEDS code = CANU) CRITICAL LEVEL. CRITICAL VALUE CALLEDTO AND CRITICAL VALUE READ BACK BY HUBER DOWNING RN 1 [phone] 06/24/20. Chas Dixon POSITIVE URINE DRUG SCREEN [...] = [facility]) LISTED CUTOFFS DRUG CLASS INIT IAL TEST LEVEL AMPHETAMINES 10 00 NG/MLBARBITURAT ES 200 NG/MLBENZODIAZE PIN ES 200 NG/MLCOCAINE METABOLITE 300 NG/MLMARIJUANA METABOLITE 50 NG/MLOPIATES 3 00 NG/MLPHENCYCLID INE 25 NG/ML UR HCG [id number] 15:58:00 Test Item Value Reference Range Interpretation Comments UR HCG QUAL (test code = HCGQLU) NEGATIVE NEGATIVE URINALYSIS W REFLEX [id number] 15:58:00 Test Item Value Reference Range Interpretation [...] NEEDED? (test code = UAMICRO) CBC W/AUTO [id number] 15:52:00 Test Item Value Reference Range Interpretation [...] NORMAL code = RBCM) URINALYSIS W REFLEX [id number] 13:00:00 Test Item Value Reference Range Interpretation [...] MICRO code = UAMICRO) UA ICTOTEST FOR [id number] 13:00:00 Test Item Value Reference Range Interpretation Comments UA ICTOTEST FOR BILIRUBIN (test code POSITIVE NEGATIVE A = ICTOU) UA [id number] 13:00:00 Test Item Value Reference Range Interpretation Comments UA WBC (test code = WBCU) 0-2 #/hpf 0-5 UA RBC (test code = RBCU) 3-5 #/hpf 0-5 UA EPITHELIAL CELLS (test code = FEW /hpf NEG,FEW EPIU) UA BACTERIA (test code = BACU) FEW /hpf NEGATIVE A UA MUCUS (test code = MUCU) 1+ /hpf NEG,FEW A UR HCG [id number] 13:00:00 Test Item Value Reference Range Interpretation Comments UR HCG QUAL (test code = HCGQLU) NEGATIVE NEGATIVE DRUGS OF ABUSE [id number] 12:57:00 Test Item Value Reference Range Interpretation [...] = WAS TESTE D AT THE [facility]) LISTED CUTOFFS DRUG CLASS INIT IAL TEST LEVEL AMPHETAMINES 10 00 NG/MLBARBITURAT ES 200 NG/MLBENZODIAZE PIN ES 200 NG/MLCOCAINE METABOLITE 300 NG/MLMARIJUANA METABOLITE 50 NG/MLOPIATES 30 0 NG/MLPHENCYCLID INE 25 NG/ML URINALYSIS W REFLEX [id number] 12:56:00 Test Item Value Reference Range Interpretation [...] MICRO code = UAMICRO) UA ICTOTEST FOR [id number] 12:56:00 Test Item Value Reference Range Interpretation Comments UA ICTOTEST FOR BILIRUBIN (test code POSITIVE NEGATIVE A = ICTOU) UR HCG [id number] 12:56:00 Test Item Value Reference Range Interpretation Comments UR HCG QUAL (test code = HCGQLU) NEGATIVE NEGATIVE URINALYSIS W REFLEX [id number] 12:53:00 Test Item Value Reference Range Interpretation [...] UA MICRO code = UAMICRO) UR HCG [id number] 12:53:00 Test Item Value Reference Range Interpretation Comments UR HCG QUAL (test code = HCGQLU) NEGATIVE NEGATIVE URINALYSIS W REFLEX [id number] 12:53:00 Test Item Value Reference Range Interpretation [...] UA MICRO code = UAMICRO) UR HCG [id number] 12:53:00 Test Item Value Reference Range Interpretation Comments UR HCG QUAL (test code = HCGQLU) NEGATIVE NEGATIVE - XR ABDOMEN [id number] 12:16:00 [facility] 1990 Sex: F FAX: Sawyer Centeno II Spencer: St: PRE Name: BREANNA QUEEN FSED : 1990 Age/S: 30/F [address] #: [id number] Loc: [place] [address] Phys: Sawyer Centeno II, MD Acct: [id number] Dis Date: Status: PRE ER PHONE #: Exam Date: 05/19/2020 1212 FAX #: Reason: abdominal pain EXAMS: CPT CODE: [id number] XR ABDOMEN 2V 79944 - XR ABDOMEN 2V PROVIDED REASON FOR [...] By: [email or web address] Orig Print D/T: S: 05/19/2020 ([id number]) PAGE 1 Signed ReportBASIC METABOLIC PANEL 2020-05-19 [...] RESULT BY1.21. [Automated mess age] The system [employer] generated this result transmitted ref erence range: >=60. Th e reference range was not used to int erpret this result as normal/abnormal . CREATININE (test code 0.64 mg/dl 0.55-1.02 N = CREAT) CALCIUM (test code = 9.8 mg/dL 8.5-10.1 N CA) LIVER [id number] 12:08:00 Test Item Value Reference Range Interpretation [...] 119 U/L 45-117 H code = ALKP) [id number] 12:08:00 Test Item Value Reference Range Interpretation Comments LIPASE (test code = LIP) 67 U/L 73-393 L CBC W/AUTO [id number] 11:43:00 Test Item Value Reference Range Interpretation [...] NORMAL code = RBCM) URINALYSIS W REFLEX [id number] 22:06:00 Test Item Value Reference Range Interpretation [...] MUCU) 2+ /hpf NEG,FEW A BASIC METABOLIC [id number] 21:54:00 Test Item Value Reference Range Interpretation [...] = 9.3 mg/dL 8.5-10.1 N CA) LIVER [id number] 21:54:00 Test Item Value Reference Range Interpretation [...] 69 U/L 50-136 N code = ALKP) [id number] 21:54:00 Test Item Value Reference Range Interpretation Comments LIPASE (test code = LIP) 63 U/L 73-393 L BASIC METABOLIC [id number] 21:53:00 Test Item Value Reference Range Interpretation [...] = 9.3 mg/dL 8.5-10.1 N CA) LIVER [id number] 21:53:00 Test Item Value Reference Range Interpretation [...] TOTAL (test U/L 50-136 code = ALKP) [id number] 21:53:00 Test Item Value Reference Range Interpretation Comments LIPASE (test code = LIP) 63 U/L 73-393 L BASIC METABOLIC [id number] 21:52:00 Test Item Value Reference Range Interpretation [...] = 9.3 mg/dL 8.5-10.1 N CA) LIVER [id number] 21:52:00 Test Item Value Reference Range Interpretation [...] TOTAL (test U/L 50-136 code = ALKP) [id number] 21:52:00 Test Item Value Reference Range Interpretation Comments LIPASE (test code = LIP) 63 U/L 73-393 L BASIC METABOLIC [id number] 21:51:00 Test Item Value Reference Range Interpretation [...] = 9.3 mg/dL 8.5-10.1 N CA) LIVER [id number] 21:51:00 Test Item Value Reference Range Interpretation [...] TOTAL (test U/L 50-136 code = ALKP) [id number] 21:51:00 Test Item Value Reference Range Interpretation Comments LIPASE (test code = LIP) 63 U/L 73-393 L BASIC METABOLIC [id number] 21:49:00 Test Item Value Reference Range Interpretation [...] = CA) 9.3 mg/dL 8.5-10.1 N LIVER [id number] 21:49:00 Test Item Value Reference Range Interpretation [...] TOTAL (test U/L 50-136 code = ALKP) [id number] 21:49:00 Test Item Value Reference Range Interpretation Comments LIPASE (test code = LIP) 63 U/L 73-393 L BASIC METABOLIC [id number] 21:48:00 Test Item Value Reference Range Interpretation [...] = CA) 9.3 mg/dL 8.5-10.1 N LIVER [id number] 21:48:00 Test Item Value Reference Range Interpretation Comments TOTAL PROTEIN (test code = PROT) g/dl 6.4-8.2 ALBUMIN (test code = ALB) g/dl 3.4-5.0 BILIRUBIN TOTAL (test code = BILT) mg/dl 0.2-1.0 BILIRUBIN DIRECT (test code = BILD) mg/dl 0.0-0.4 SGOT/AST (test code = AST) U/L 15-37 SGPT/ALT (test code = ALT) U/L 12-78 ALKALINE PHOSPHATASE TOTAL (test code U/L 50-136 = ALKP) [id number] 21:48:00 Test Item Value Reference Range Interpretation Comments LIPASE (test code = LIP) U/L 73-393 BASIC METABOLIC [id number] 21:46:00 Test Item Value Reference Range Interpretation [...] (test code = CA) mg/dL 8.5-10.1 LIVER [id number] 21:46:00 Test Item Value Reference Range Interpretation Comments TOTAL PROTEIN (test code = PROT) g/dl 6.4-8.2 ALBUMIN (test code = ALB) g/dl 3.4-5.0 BILIRUBIN TOTAL (test code = BILT) mg/dl 0.2-1.0 BILIRUBIN DIRECT (test code = BILD) mg/dl 0.0-0.4 SGOT/AST (test code = AST) U/L 15-37 SGPT/ALT (test code = ALT) U/L 12-78 ALKALINE PHOSPHATASE TOTAL (test code U/L 50-136 = ALKP) [id number] 21:46:00 Test Item Value Reference Range Interpretation Comments LIPASE (test code = LIP) U/L 73-393 CBC W/AUTO [id number] 21:43:00 Test Item Value Reference Range Interpretation [...]
[2022-04-01] MEDS ORDERED: DIPHENHYDRAMINE 50 MG/ML VIAL ONE (21:58)
--- NOTE | 2022-04-01 23:37 | EDPHYS ---
Physician Documentation [facility] Name: Efrem Pastor Age: 31 yrs Sex: Female : 1990 Arrival Date: 04/01/2022 Time: 19:59 Bed Treatment Private MD: ED Physician Willie Akbar HPI: 04/02 00:10 This 31 yrs old Female presents to ER via Ambulatory with complaints of Jaw Pain, kdr Facial Pain. 00:10 Patient complains of bilateral jaw pain and temporal pain. Patient was given Haldol kdr yesterday and subsequent to that has had dystonic reactions in her facial muscles. Patient says she is not taking anything for it so far today. She is otherwise nontoxic-appearing. Onset: The symptoms/episode began/occurred suddenly, yesterday. Severity of symptoms: At their worst the symptoms were mild moderate just prior to arrival, in the emergency department the symptoms are unchanged. The patient has not experienced similar symptoms in the past. The patient has been recently seen by a physician: Patient was given Haldol yesterday for her gastroparesis. This is not the first time she has had Haldol. Prior dosing has not resulted in any adverse effects. 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 - Social history:: Smoking status: unknown. ROS: 04/02 00:10 Constitutional: Negative for fever, chills, and weight loss, Eyes: Negative for injury, kdr pain, redness, and discharge, Neck: Negative for injury, pain, and swelling, Cardiovascular: Negative for chest pain, palpitations, and edema, Respiratory: Negative for shortness of breath, cough, wheezing, and pleuritic chest pain, Abdomen/GI: Negative for abdominal pain, nausea, vomiting, diarrhea, and constipation, Back: Negative for injury and pain, : Negative for injury, bleeding, discharge, and swelling, MS/Extremity: Negative for injury and deformity, Skin: Negative for injury, rash, and discoloration, Neuro: Negative for headache, weakness, numbness, tingling, and seizure activity. Psych: Negative for depression, anxiety, suicide ideation, homicidal ideation, and hallucinations, Allergy/Immunology: Negative for hives, rash, and allergies, Endocrine: Negative for neck swelling, polydipsia, polyuria, polyphagia, and marked weight changes, Hematologic/Lymphatic: Negative for swollen nodes, abnormal bleeding, and unusual bruising. ENT: Positive for Patient complains of bilateral facial spasms that involve her jaw and temporal muscles. She states that the pain is intermittent and spasm-like. She is not having any difficulty swallowing. Her symptoms appear slightly swollen. Exam: 00:10 Constitutional: This is a well developed, well nourished patient who is awake, alert, kdr and in no acute distress. Head/Face: Normocephalic, atraumatic. Eyes: Pupils equal round and reactive to light, extra-ocular motions intact. Lids and lashes normal. Conjunctiva and sclera are non-icteric and not injected. Cornea within normal limits. Periorbital areas with no swelling, redness, or edema. Neck: Trachea midline, no thyromegaly or masses palpated, and no cervical lymphadenopathy. Supple, full range of motion without nuchal rigidity, or vertebral point tenderness. No Meningismus. Chest/axilla: Normal chest wall appearance and motion. Nontender with no deformity. No lesions are appreciated. Cardiovascular: Regular rate and rhythm with a normal S1 and S2. No gallops, murmurs, or rubs. Normal PMI, no JVD. No pulse deficits. Respiratory: Lungs have equal breath sounds bilaterally, clear to auscultation and percussion. No rales, rhonchi or wheezes noted. No increased work of breathing, no retractions or nasal flaring. Abdomen/GI: Soft, non-tender, with normal bowel sounds. No distension or tympany. No guarding or rebound. No evidence of tenderness throughout. Back: No spinal tenderness. No costovertebral tenderness. Full range of motion. Skin: Warm, dry with normal turgor. Normal color with no rashes, no lesions, and no evidence of cellulitis. MS/ Extremity: Pulses equal, no cyanosis. Neurovascular intact. Full, normal range of motion. Neuro: Awake and alert, GCS 15, oriented to person, place, time, and situation. Cranial nerves II-XII grossly intact. Motor strength 5/5 in all extremities. Sensory grossly intact. Cerebellar exam normal. Normal gait. Psych: Awake, alert, with orientation to person, place and time. Behavior, mood, and affect are within normal limits. 00:10 ENT: Mouth: Tongue: is moist, is swollen, Voice: is muffled. Vital Signs: 04/01 20:22 BP 129 / 90; Pulse 94; Resp 18; Temp 98.2; Pulse Ox 98% on R/A; Weight 60.33 kg; Height pf1 5 ft. 2 in. (157.48 cm); Pain 8/10; 21:45 BP 118 / 87; Pulse 89; Resp 18; Pulse Ox 97% on R/A; eh3 22:45 BP 117 / 77; Pulse 90; Resp 18; Pulse Ox 97% on R/A; eh3 20:22 Body Mass Index 24.33 (60.33 kg, 157.48 cm) pf1 MDM: 23:36 Patient medically screened. kdr 04/02 00:10 Data reviewed: vital signs, nurses notes. ED course: Patient with much improved with kdr the interventions given. She is happy with the care provided and the plan for discharge and follow-up. Administered Medications: 04/01 22:00 Drug: Benadryl (diphenhydrAMINE) 25 mg Route: IVP; Site: left antecubital; pf1 23:40 Follow up: Response: No adverse reaction eh3 22:00 Drug: Benadryl (diphenhydrAMINE) 25 mg Route: IVP; Site: left antecubital; pf1 23:40 Follow up: Response: No adverse reaction eh3 Disposition Summary: 04/01/22 23:36 Discharge Ordered Location: Home kdr Problem: new kdr Symptoms: have improved kdr Condition: Stable kdr Diagnosis - Drug induced acute dystonia - Haldol kdr Followup: kdr - With: Private Physician - When: 2 - 3 days - Reason: If symptoms return, Further diagnostic work-up, Recheck today's complaints, Continuance of care, Re-evaluation by your physician Discharge Instructions: - Discharge Summary Sheet kdr - Dystonic Reaction kdr - Dystonia kdr Forms: - Medication Reconciliation Form kdr - Thank You Letter kdr Prescriptions: - Benadryl 25 mg Oral Capsule - take 1 capsule by ORAL route every 6 hours As needed; 12 tablet; Refills: 0, kdr Product Selection Permitted Signatures: Willie Akbar MD MD kdr Ginna Gillespie RN RN eh3 Kristen fernandez RN RN pf1
--- NOTE | 2022-04-01 23:37 | ER ---
Nurse's Notes [facility] Name: Efrem Pastor Age: 31 yrs Sex: Female : 1990 Arrival Date: 04/01/2022 Time: 19:59 Bed Treatment Private MD: Diagnosis: Drug induced acute dystonia-Haldol Presentation: 04/01 20:22 Chief complaint: Patient states: Patient C/O bilateral upper and lower jaw pain of 8 pf1 with spasms with tongue twitching,onset 0900 today. Patient stated is having a side effect of Haldol that was given to her yesterday at another ER for her migraines. Coronavirus screen: Vaccine status: Patient reports receiving the 2nd dose of the covid vaccine. Client denies travel out of the [place] in the last 14 days. At this time, the client does not indicate any symptoms associated with coronavirus-19. Ebola Screen: Patient negative for fever greater than or equal to 101.5 degrees Fahrenheit, and additional compatible Ebola Virus Disease symptoms. Initial Sepsis Screen: Does the patient meet any 2 criteria? No. Patient's initial sepsis screen is negative. Does the patient have a suspected source of infection? No. Patient's initial sepsis screen is negative. Risk Assessment: Do you want to hurt yourself or someone else? Patient reports no desire to harm self or others. 20:22 Method Of Arrival: Ambulatory pf1 20:22 Acuity: BELINDA 3 pf1 21:45 Onset of symptoms was April 01, 2022. [facility] Triage Assessment: 21:45 General: Appears in no apparent distress. uncomfortable. 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 - Social history:: Smoking status: unknown. Screenin:09 [facility] ED Fall Risk Assessment (Adult) History of falling in the last 3 months, pf1 including since admission No falls in past 3 months (0 pts) Confusion or Disorientation No (0 pts) Intoxicated or Sedated No (0 pts) Impaired Gait No (0 pts) Mobility Assist Device Used No (0 pt) Altered Elimination No (0 pt) Score/Fall Risk Level 0 - 2 = Low Risk Oriented to surroundings, Maintained a safe environment, Educated pt \T\ family on fall prevention, incl call for assistance when getting out of bed, Assessed \T\ reinforced patient's understanding of fall precautions, Provided non-skid footwear, Hourly rounding (assess needs \T\ fall precautionary measures) done, Used ambulatory aids as needed (educated on \T\ assisted with), Used gait belt as appropriate. Abuse screen: Denies threats or abuse. Nutritional screening: No deficits noted. Tuberculosis screening: No symptoms or risk factors identified. Assessment: 22:06 General: Appears in no apparent distress. uncomfortable, well groomed, well developed, pf1 Behavior is calm, cooperative, appropriate for age, quiet. Pain: Complains of pain in mouth bilateral jaw pain of 6 Pain currently is 6 out of 10 on a pain scale. Neuro: No deficits noted. Level of Consciousness is awake, alert, obeys commands, Oriented to person, place, time, situation. Cardiovascular: No deficits noted. Capillary refill < 3 seconds Patient's skin is warm and dry. Respiratory: No deficits noted. Airway is patent Trachea midline Respiratory effort is even, unlabored, Respiratory pattern is regular, symmetrical, Breath sounds are clear bilaterally. GI: No deficits noted. Abdomen is flat, non-distended, Bowel sounds present X 4 quads. : No deficits noted. No signs and/or symptoms were reported regarding the genitourinary system. EENT: Reports pain in right jaw and left jaw. Derm: No deficits noted. 22:45 Reassessment: Patient appears in no apparent distress at this time. Patient and/or eh3 family updated on plan of care and expected duration. Pain level reassessed. Patient is alert, oriented x 3, equal unlabored respirations, skin warm/dry/pink. Vital Signs: 20:22 BP 129 / 90; Pulse 94; Resp 18; Temp 98.2; Pulse Ox 98% on R/A; Weight 60.33 kg; Height pf1 5 ft. 2 in. (157.48 cm); Pain 8/10; 21:45 BP 118 / 87; Pulse 89; Resp 18; Pulse Ox 97% on R/A; eh3 22:45 BP 117 / 77; Pulse 90; Resp 18; Pulse Ox 97% on R/A; eh3 20:22 Body Mass Index 24.33 (60.33 kg, 157.48 cm) pf1 ED Course: 19:59 Patient arrived in ED. as 20:26 Triage completed. pf1 21:40 Willie Akbar MD is Attending Physician. kdr 21:45 Ginna Gillespie, RN is Primary Nurse. eh3 21:45 Arm band placed on. eh3 22:00 No provider procedures requiring assistance completed. Inserted saline lock: 20 gauge pf1 in left antecubital area, using aseptic technique. 22:05 Patient has correct armband on for positive identification. Bed in low position. Call pf1 light in reach. 23:41 IV discontinued, intact, bleeding controlled, No redness/swelling at site. Pressure eh3 dressing applied. Administered Medications: 22:00 Drug: Benadryl (diphenhydrAMINE) 25 mg Route: IVP; Site: left antecubital; pf1 23:40 Follow up: Response: No adverse reaction eh3 22:00 Drug: Benadryl (diphenhydrAMINE) 25 mg Route: IVP; Site: left antecubital; pf1 23:40 Follow up: Response: No adverse reaction 3 Medication: 23:41 VIS not applicable for this client. eh3 Outcome: 23:36 Discharge ordered by . kdr 23:41 Discharged to home ambulatory, with significant other. eh3 23:41 Condition: stable 23:41 Discharge instructions given to patient, significant other, Instructed on discharge instructions, follow up and referral plans. medication usage, Demonstrated understanding of instructions, follow-up care, medications, Prescriptions given X 1. 23:49 Patient left the ED. eh3 Signatures: Willie Akbar MD MD kdr Martinez, Amelia as Ginna Gillespie, BRUCE RN 3 Kristen fernandez RN RN pf1 Corrections: (The following items were deleted from the chart) 23:39 21:56 Ginna Gillespie, BRUCE is Primary Nurse. eh3 eh3 23:51 23:00 Reassessment: Patient appears in no apparent distress at this time. Patient eh3 and/or family updated on plan of care and expected duration. Pain level reassessed. Patient is alert, oriented x 3, equal unlabored respirations, skin warm/dry/pink. eh3
[2022-04-02 00:39] VITALS: BP 129/90; TEMP 98.2; O2SAT 98
== END 2022-04-01 23:49 | disposition home or self-care (01) ==
LOC: ER 19:57
DX: G24.02 Drug induced acute dystonia (principal); Z88.8 Allergy status to other drugs, medicaments and biological substances
CPT/HCPCS: J1200

== ENCOUNTER 2022-04-02 14:23 | Observation (INO) | payer OTHER, SELFPAY ==
--- NOTE | 2022-04-02 15:19 | RAD REPORT ---
EXAM DESCRIPTION: RAD - Abdomen Acute Series - 04/02/2022 2:47 pm CLINICAL HISTORY: Abd pain COMPARISON: None available TECHNIQUE: Single AP views of the chest and abdomen. FINDINGS: No focal airspace opacity. No pneumothorax or effusion. Cardiomediastinal contours are unr emarkable. Nonobstructive bowel gas pattern. No air-fluid levels, free air, or pneumatosis. No suspicious calcif ications. No significant bony abnormality. Right upper quadrant surgical clips, suggesting prior cholecystecto my. IMPRESSION: Negative acute abdomen series.
[2022-04-02] MEDS ORDERED: MORPHINE 4 MG/ML SYR ONE ×2 (15:20→18:14)
[2022-04-02] MEDS ORDERED: ONDANSETRON 4 MG/2 ML VIAL ONE ×2 (15:20→18:14)
[2022-04-02] MEDS ORDERED: NA CHLORIDE 0.9% 1,000 ML ONE ×2 (15:20→18:15)
[2022-04-02] MEDS ORDERED: FAMOTIDINE 20 MG/2 ML VIAL IV ONE (15:20)
[2022-04-02 15:50] LABS: Absolute Lymphocytes (CBC) 1.2 K/uL (0.7-4.9); Hematocrit 38.4 % (36.0-45.0); Lymphocytes % 17.9 % (15.3-44.8); MCV 84.1 fL (80-100); MPV 10.1 fL (7.6-11.3); RBC Red Blood Cell Count 4.56 M/uL (3.86-4.86)
[2022-04-02 16:00] LABS: Urine Blood 2+ (Negative); Urine Glucose Negative (Negative); Urine Protein 1+ (Negative)
[2022-04-02 16:13] LABS: Urine Bacteria <20 /HPF (<20); Urine Mucus 1+ /HPF (None Seen)
[2022-04-02 16:15] LABS: Albumin 3.7 g/dL (3.4-5.0); Bilirubin Total 0.6 mg/dL (0.2-1.0); Protein, Total 7.4 g/dL (6.4-8.2)
[2022-04-02 16:17] LABS: Potassium 2.9 mmol/L (3.5-5.1)
--- NOTE | 2022-04-02 17:55 | ER ---
Nurse's Notes [facility] Name: Efrem Pastor Age: 31 yrs Sex: Female : 1990 Arrival Date: 04/02/2022 Time: 14:24 Bed 25 Private MD: Diagnosis: Gastroparesis;Vomiting;Dehydration;Upper abdominal pain, unspecified;Hypokalemia Presentation: 04/02 14:26 Chief complaint: Patient states: i have gastroparesis and i have been having a flare up jh5 for a few days now and havent been able to hold anything down. Coronavirus screen: Vaccine status: Patient reports receiving the 2nd dose of the covid vaccine. Client denies travel out of the [place] in the last 14 days. Ebola Screen: Patient negative for fever greater than or equal to 101.5 degrees Fahrenheit, and additional compatible Ebola Virus Disease symptoms Patient denies exposure to infectious person. Patient denies travel to an Ebola-affected area in the 21 days before illness onset. Initial Sepsis Screen: Does the patient meet any 2 criteria? No. Patient's initial sepsis screen is negative. Does the patient have a suspected source of infection? No. Patient's initial sepsis screen is negative. Risk Assessment: Do you want to hurt yourself or someone else? Patient reports no desire to harm self or others. 14:26 Method Of Arrival: Ambulatory [facility] 14:26 Acuity: BELINDA 3 [facility] 18:00 Onset of symptoms was April 02, 2022. [facility] Triage Assessment: 14:28 General: Appears uncomfortable, slender, Behavior is calm, cooperative, appropriate for [facility] age. Pain: Complains of pain in abdomen. GI: Reports nausea, vomiting. 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 - Social history:: Smoking status: Reported history of juuling and/or vaping. Screenin:30 [facility] Fall Risk Assessment (Adult) Score/Fall Risk Level 0 - 2 = Low Risk. Abuse eh3 screen: Denies threats or abuse. Denies injuries from another. Nutritional screening: No deficits noted. Tuberculosis screening: No symptoms or risk factors identified. Assessment: 14:30 General: Appears in no apparent distress. uncomfortable, Behavior is cooperative, eh3 appropriate for age, anxious. Pain: Complains of pain in abdomen. Neuro: Level of Consciousness is awake, alert, obeys commands, Oriented to person, place, time, situation. Cardiovascular: Capillary refill < 3 seconds Patient's skin is warm and dry. Respiratory: Airway is patent Respiratory effort is even, unlabored, Respiratory pattern is regular, symmetrical. GI: Abdomen is round non-distended, Reports lower abdominal pain, upper abdominal pain, cramping, epigastric pain, indigestion, intolerance of fluids, intolerance of food, nausea, vomiting. : No signs and/or symptoms were reported regarding the genitourinary system. EENT: No signs and/or symptoms were reported regarding the EENT system. Derm: Skin is pink, warm \T\ dry. Musculoskeletal: Circulation, motion, and sensation intact. Range of motion: intact in all extremities. 15:30 Reassessment: Patient appears in no apparent distress at this time. Patient and/or eh3 family updated on plan of care and expected duration. Pain level reassessed. Patient is alert, oriented x 3, equal unlabored respirations, skin warm/dry/pink. 16:30 Reassessment: Patient appears in no apparent distress at this time. Patient and/or eh3 family updated on plan of care and expected duration. Pain level reassessed. Patient is alert, oriented x 3, equal unlabored respirations, skin warm/dry/pink. 17:30 Reassessment: Patient appears in no apparent distress at this time. Patient and/or eh3 family updated on plan of care and expected duration. Pain level reassessed. Patient is alert, oriented x 3, equal unlabored respirations, skin warm/dry/pink. Vital Signs: 14:26 BP 159 / 108; Pulse 72; Resp 16; Temp 98.6; Pulse Ox 97% ; Weight 60.33 kg; Height 5 jh5 ft. 2 in. (157.48 cm); Pain 9/10; 15:30 BP 150 / 91; Pulse 57; Resp 18; Pulse Ox 97% on R/A; eh3 16:30 BP 140 / 88; Pulse 59; Resp 18; Pulse Ox 97% on R/A; eh3 17:30 BP 111 / 79; Pulse 80; Resp 18; Pulse Ox 99% on R/A; eh3 14:26 Body Mass Index 24.33 (60.33 kg, 157.48 cm) [facility] ED Course: 14:24 Patient arrived in ED. as 14:28 Triage completed. [facility] 14:28 Arm band placed on right wrist. [facility] 14:30 Billy Juarez MD is Attending Physician. [facility] 14:30 Patient has correct armband on for positive identification. Bed in low position. Call [facility] light in reach. Side rails up X2. Adult w/ patient. Pulse ox on. NIBP on. Door closed. Noise minimized. Lights dimmed. Warm blanket given. Pillow given. 14:49 Ginna Gillespie, BRUCE is Primary Nurse. 3 15:45 Inserted saline lock: 20 gauge in left forearm, using aseptic technique. Blood zm collected. 15:45 CBC with Diff Sent. zm 15:45 CMP Sent. zm 15:45 Lipase Sent. zm 16:10 Urine --Ancillary (enter results) Sent. 3 16:17 Notified ED physician of a critical lab result(s). Potassium 2.9. ss 17:52 Amy Mooney MD is Hospitalizing Provider. [facility] 18:00 No provider procedures requiring assistance completed. Patient admitted, IV remains in [address] Administered Medications: 18:43 Discontinued: NS 0.9% with KCl 20 mEq/L 1000 ml IV at per protocol continuous [facility] 15:50 Drug: NS 0.9% 1000 ml Route: IV; Rate: 1 bolus; Site: left forearm; 3 17:20 Follow up: IV Status: Completed infusion; IV Intake: 1000ml [facility] 15:50 Drug: Pepcid (famotidine) 20 mg Route: IVP; Site: left forearm; 3 17:20 Follow up: Response: No adverse reaction [facility] 15:50 Drug: Zofran (Ondansetron) 4 mg Route: IVP; Site: left forearm; 3 17:20 Follow up: Response: Nausea is decreased [facility] 15:50 Drug: morphine 4 mg Route: IVP; Infused Over: 4 mins; Site: left forearm; eh3 17:21 Follow up: Response: Pain is decreased eh3 18:29 Drug: morphine 4 mg Route: IVP; Infused Over: 4 mins; Site: left forearm; eh3 19:00 Follow up: Response: Pain is decreased eh3 18:29 Drug: Zofran (Ondansetron) 4 mg Route: IVP; Site: left forearm; eh3 19:00 Follow up: Response: Nausea is decreased eh3 18:29 Drug: NS 0.9% with KCl 20 mEq/L 1000 ml Route: IV; Rate: 150 ml/hr; Site: left forearm; eh3 22:37 Follow up: Response: No adverse reaction; IV Status: Infusion continued upon admission; eh3 IV Intake: 600ml 18:30 Drug: NS 0.9% 1000 ml Route: IV; Rate: 1 bolus; Site: left forearm; eh3 20:00 Follow up: IV Status: Completed infusion; IV Intake: 1000ml eh3 18:30 Drug: NS 0.9% with KCl 20 mEq/L 1000 ml Route: IV; Rate: per protocol; Site: left 3 forearm; 18:44 Follow up: Response: No adverse reaction; IV Status: Order to discontinue infusion; IV eh3 Intake: 35ml 18:45 Drug: Potassium Chloride 20 mEq Route: IV; Rate: per protocol; Site: left forearm; eh3 20:45 Follow up: Response: No adverse reaction; IV Status: Completed infusion; IV Intake: eh3 100ml Medication: 18:00 VIS not applicable for this client. eh3 Intake: 17:20 IV: 1000ml; Total: 1000ml. eh3 18:44 IV: 35ml; Total: 1035ml. eh3 20:00 IV: 1000ml; Total: 2035ml. eh3 20:45 IV: 100ml; Total: 2135ml. eh3 22:37 IV: 600ml; Total: 2735ml. eh3 Outcome: 17:54 Decision to Hospitalize by Provider. [facility] 18:00 Admitted to ER Hold. Please see [facility] for further documentation. eh3 18:00 Condition: stable 18:00 Instructed on the need for admit. 22:29 Admitted to Med/surg accompanied by tech, via wheelchair, room 209, with chart, Report eh3 called to Hayley 22:39 Patient left the ED. eh3 Signatures: Billy Juarez MD MD cha Martinez, Amelia as Smirch, Shelby, RN RN Nancy Lerma RN RN [facility] Ginna Gillespie RN RN 3 Chelsea Chavis
--- NOTE | 2022-04-02 17:55 | EDPHYS ---
Physician Documentation [facility] Name: Efrem Pastor Age: 31 yrs Sex: Female : 1990 Arrival Date: 04/02/2022 Time: 14:24 Bed 25 Private MD: MICHAEL Physician Billy Juarez HPI: 04/02 17:40 This 31 yrs old Female presents to ER via Ambulatory with complaints of stewart Vomiting. 17:40 The patient presents to the emergency department with nausea, vomiting, that is stewart continuous, 10 times since the onset of symptoms. Onset: The symptoms/episode began/occurred 3 day(s) ago. Possible causes: unknown. The symptoms are aggravated by food , The symptoms are alleviated by remaining still. Associated signs and symptoms: The patient has no apparent associated signs or symptoms. The patient has experienced similar episodes in the past, multiple times. 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 - Social history:: Smoking status: Reported history of juuling and/or vaping. ROS: 17:44 Constitutional: Negative for fever, chills, and weight loss, Eyes: Negative for injury, stewart pain, redness, and discharge, ENT: Negative for injury, pain, and discharge, Neck: Negative for injury, pain, and swelling, Cardiovascular: Negative for chest pain, palpitations, and edema, Respiratory: Negative for shortness of breath, cough, wheezing, and pleuritic chest pain, Back: Negative for injury and pain, : Negative for injury, bleeding, discharge, and swelling, MS/Extremity: Negative for injury and deformity, Skin: Negative for injury, rash, and discoloration, Neuro: Negative for headache, weakness, numbness, tingling, and seizure, Psych: Negative for depression, anxiety, suicide ideation, homicidal ideation, and hallucinations, Allergy/Immunology: Negative for hives, rash, and allergies, Endocrine: Negative for neck swelling, polydipsia, polyuria, polyphagia, and marked weight changes, Hematologic/Lymphatic: Negative for swollen nodes, abnormal bleeding, and unusual bruising. 17:44 Abdomen/GI: Positive for abdominal pain, nausea and vomiting, of the epigastric area, right upper quadrant and left upper quadrant. Exam: 17:44 Constitutional: This is a well developed, well nourished patient who is awake, alert, stewart and in no acute distress. Head/Face: Normocephalic, atraumatic. Eyes: Pupils equal round and reactive to light, extra-ocular motions intact. Lids and lashes normal. Conjunctiva and sclera are non-icteric and not injected. Cornea within normal limits. Periorbital areas with no swelling, redness, or edema. ENT: Nares patent. No nasal discharge, no septal abnormalities noted. Tympanic membranes are normal and external auditory canals are clear. Oropharynx with no redness, swelling, or masses, exudates, or evidence of obstruction, uvula midline. Mucous membranes moist. Neck: Trachea midline, no thyromegaly or masses palpated, and no cervical lymphadenopathy. Supple, full range of motion without nuchal rigidity, or vertebral point tenderness. No Meningismus. Chest/axilla: Normal chest wall appearance and motion. Nontender with no deformity. No lesions are appreciated. Cardiovascular: Regular rate and rhythm with a normal S1 and S2. No gallops, murmurs, or rubs. Normal PMI, no JVD. No pulse deficits. Respiratory: Lungs have equal breath sounds bilaterally, clear to auscultation and percussion. No rales, rhonchi or wheezes noted. No increased work of breathing, no retractions or nasal flaring. Back: No spinal tenderness. No costovertebral tenderness. Full range of motion. Skin: Warm, dry with normal turgor. Normal color with no rashes, no lesions, and no evidence of cellulitis. MS/ Extremity: Pulses equal, no cyanosis. Neurovascular intact. Full, normal range of motion. Neuro: Awake and alert, GCS 15, oriented to person, place, time, and situation. Cranial nerves II-XII grossly intact. Motor strength 5/5 in all extremities. Sensory grossly intact. Cerebellar exam normal. Normal gait. Psych: Awake, alert, with orientation to person, place and time. Behavior, mood, and affect are within normal limits. 17:44 Abdomen/GI: Inspection: abdomen appears normal, Bowel sounds: hyperactive, in all quadrants, Palpation: mild abdominal tenderness, in the epigastric area, right upper quadrant and left upper quadrant, Liver: no appreciated palpable abnormalities, Hernia: not appreciated. Vital Signs: 14:26 BP 159 / 108; Pulse 72; Resp 16; Temp 98.6; Pulse Ox 97% ; Weight 60.33 kg; Height 5 5 ft. 2 in. (157.48 cm); Pain 9/10; 15:30 BP 150 / 91; Pulse 57; Resp 18; Pulse Ox 97% on R/A; eh3 16:30 BP 140 / 88; Pulse 59; Resp 18; Pulse Ox 97% on R/A; eh3 17:30 BP 111 / 79; Pulse 80; Resp 18; Pulse Ox 99% on R/A; eh3 14:26 Body Mass Index 24.33 (60.33 kg, 157.48 cm) [facility] MDM: 14:30 Patient medically screened. [facility] 04/02 14:31 Order name: CBC with Diff [facility] 04/02 14:31 Order name: CMP [facility] 04/02 14:31 Order name: Lipase [facility] 04/02 14:31 Order name: Urine Microscopic Only [facility] 04/02 15:51 Order name: CBC with Automated Diff; Complete Time: 17:28 [facility] 04/02 16:01 Order name: Urine Dipstick-Ancillary; Complete Time: 17:28 [facility] 04/02 14:31 Order name: Abdomen Acute Series XRAY [facility] 04/02 15:20 Order name: RAD; Complete Time: 17:28 [facility] 04/02 16:01 Order name: Urine --Ancillary (enter results) [facility] 04/02 16:14 Order name: Urine Microscopic Only; Complete Time: 17:28 [facility] 04/02 16:17 Order name: Comprehensive Metabolic Panel; Complete Time: 17:28 [facility] 04/02 16:17 Order name: Lipase; Complete Time: 17:28 [facility] 04/02 20:58 Order name: SARS RAPID 04/02 21:24 Order name: SARS-COV-2 Antigen Rapid [facility] 04/02 14:31 Order name: IV Saline Lock; Complete Time: 15:45 [facility] 04/02 14:31 Order name: Labs collected and sent; Complete Time: 15:45 [facility] 04/02 14:31 Order name: Urine Dipstick-Ancillary (obtain specimen); Complete Time: 16:01 [facility] 04/02 14:31 Order name: Urine Test (obtain specimen); Complete Time: 16:01 [facility] Administered Medications: 18:43 Discontinued: NS 0.9% with KCl 20 mEq/L 1000 ml IV at per protocol continuous stewart 15:50 Drug: NS 0.9% 1000 ml Route: IV; Rate: 1 bolus; Site: left forearm; eh3 17:20 Follow up: IV Status: Completed infusion; IV Intake: 1000ml eh3 15:50 Drug: Pepcid (famotidine) 20 mg Route: IVP; Site: left forearm; eh3 17:20 Follow up: Response: No adverse reaction eh3 15:50 Drug: Zofran (Ondansetron) 4 mg Route: IVP; Site: left forearm; eh3 17:20 Follow up: Response: Nausea is decreased eh3 15:50 Drug: morphine 4 mg Route: IVP; Infused Over: 4 mins; Site: left forearm; eh3 17:21 Follow up: Response: Pain is decreased eh3 18:29 Drug: morphine 4 mg Route: IVP; Infused Over: 4 mins; Site: left forearm; eh3 19:00 Follow up: Response: Pain is decreased eh3 18:29 Drug: Zofran (Ondansetron) 4 mg Route: IVP; Site: left forearm; eh3 19:00 Follow up: Response: Nausea is decreased eh3 18:29 Drug: NS 0.9% with KCl 20 mEq/L 1000 ml Route: IV; Rate: 150 ml/hr; Site: left forearm; eh3 22:37 Follow up: Response: No adverse reaction; IV Status: Infusion continued upon admission; eh3 IV Intake: 600ml 18:30 Drug: NS 0.9% 1000 ml Route: IV; Rate: 1 bolus; Site: left forearm; eh3 20:00 Follow up: IV Status: Completed infusion; IV Intake: 1000ml eh3 18:30 Drug: NS 0.9% with KCl 20 mEq/L 1000 ml Route: IV; Rate: per protocol; Site: left eh3 forearm; 18:44 Follow up: Response: No adverse reaction; IV Status: Order to discontinue infusion; IV eh3 Intake: 35ml 18:45 Drug: Potassium Chloride 20 mEq Route: IV; Rate: per protocol; Site: left forearm; eh3 20:45 Follow up: Response: No adverse reaction; IV Status: Completed infusion; IV Intake: eh3 100ml Disposition Summary: 04/02/22 17:54 Hospitalization Ordered Hospitalization Status: Observation stewart Provider: Amy Mooney cha Location: Telemetry/MedSurg (observation) stewart Condition: Fair stewart Problem: new stewart Symptoms: have improved stewart Bed/Room Type: Standard stewart Room Assignment: 209(04/02/22 21:41) cg Diagnosis - Gastroparesis stewart - Vomiting stewart - Dehydration stewart - Upper abdominal pain, unspecified stewart - Hypokalemia stewart Forms: - Medication Reconciliation Form stewart - SBAR form stewart Signatures: Dispatcher [employer] EDBilly Schmid MD MD cha Smirch, Shelby RN RN Adriana Nicolas RN RN Nancy Hunt RN RN 5 Ginna Gillespie RN RN 3 Corrections: (The following items were deleted from the chart) 21:41 17:54 stewart cg
[2022-04-02] MEDS ORDERED: NS KCL 20MEQ 1,000 ML IV ONE (18:15)
[2022-04-02] MEDS ORDERED: KCL 20 MEQ/100 mL IVPB 100 ML IV ONE (18:15)
[2022-04-02] MEDS ORDERED: ACETAMINOPHEN 500 MG TAB PO PRN (19:24)
--- NOTE | 2022-04-02 19:24 | P.HP ---
Certification for Inpatient Patient admitted to: Observation With expected LOS: <2 Midnights Patient will require the following post-hospital care: None Practitioner: I am a practitioner with admitting privileges, knowledge of patient current condition, hospital course, and medical plan of care. Services: Services provided to patient in accordance with Admission requirements found in Title 42 Section 412.3 of the Code of Federal Regulations Patient History Date of Service: 04/02/22 Primary Care Provider: Jeremiah Reason for admission: Intractable N/V History of Present Illness: Patient is a 31 year old female with past medical history of gastroparesis, IBS, and PTSD who presented to the ED with complaints of abdominal pain, nausea, and vomiting for 4 days. Patient states she has not been able to hold anything down. She was noted to have a potassium of 2.9. Abdominal imaging was negative. In the emergency department, she received IV fluids, pepcid, several rounds of morphine and zofran without resolution of vomiting. ED provider wishes to admit patient for further management. Allergies scopolamine Allergy (Unknown, Verified 04/02/22 19:24) Itching/Hives/Rash haloperidol [From Haldol] Allergy (Verified 04/02/22 19:24) Itching/Hives/Rash Home medications list reviewed: Yes - Past Medical/Surgical History Diabetic: No -: Gastroparesis -: Depression -: PTSD -: IBS -: Cholecystectomy -: LEEP -: Lumpectomy Psychosocial/ Personal History: Patient lives at home with her family. - Family History Family History: Reviewed- Non-Contributory - Social History Smoking Status: Never smoker Alcohol use: No CD- Drugs: No Caffeine use: Yes Place of Residence: Home Review of Systems Gastrointestinal: Nausea, Vomiting, Abdominal Pain Physical Examination - Vital Signs Temperature: 98.6 F Blood Pressure: 111/79 Pulse: 80 Respirations: 18 Pulse Ox (%): 99 - Physical Exam General: Alert, In no apparent distress HEENT: Atraumatic, Other (Dry mucous membranes), EOMI, Sclerae nonicteric Neck: Supple, 2+ carotid pulse no bruit, No LAD, Without JVD or thyroid abnormality Respiratory: Clear to auscultation bilaterally, Normal air movement Cardiovascular: Regular rate/rhythm, Normal S1 S2 Gastrointestinal: Normal bowel sounds, No tenderness Musculoskeletal: No tenderness Integumentary: No rashes Neurological: Normal speech, Normal affect - Studies Laboratory Data (last 24 hrs) 04/02/22 15:42: Sodium 137, Potassium 2.9 L*, BUN 10, Creatinine 0.64, Glucose 104, Total Bilirubin 0.6, AST 41 H, ALT 51, Alkaline Phosphatase 115, Lipase 77 04/02/22 15:42: WBC 6.60, Hgb 13.2, Hct 38.4, Plt Count 191 Assessment and Plan - Problems (Diagnosis) (1) Intractable nausea and vomiting Current Visit: Yes Status: Acute (2) Gastroparesis Current Visit: Yes Status: Chronic (3) Hypokalemia Current Visit: Yes Status: Acute - Plan Patient is admitted for observation for further management of intractable nausea/vomiting secondary to gastroparesis. Potassium depleted to 2.9 secondary to vomiting. Continue replacement per protocol. Supportive measures with IV fluids, pain medications, and antiemetics as needed. GI consult. Patient has seen Dr. Lagos in the past. Full liquid diet, advance as tolerated. Reconcile and continue home medications when appropriate. Discharge Plan: Home Plan to discharge in: 24 Hours - Advance Directives Does patient have a Living Will: No Does patient have a Durable POA for Healthcare: No - Code Status/Comfort Care Code Status Assessed: Yes Code Status: Full Code Physician Review: Patient Assessed, Agree with Above Assessment and Plan Critical Care: No Time Spent Managing Pts Care (In Minutes): 50
[2022-04-02] MEDS ORDERED: METOCLOPRAMIDE 10 MG/2mL INJ ONE (19:34)
[2022-04-02] MEDS ORDERED: NA CHLORIDE 0.9% 50 ML ONE (19:35)
[2022-04-02] MEDS: NS KCL 20MEQ 20 MEQ/1,000 ML BAG IV SCH (20:00)
[2022-04-02] MEDS: METOCLOPRAMIDE 10 MG/2mL INJ IV PRN (20:15)
[2022-04-02] MEDS: MORPHINE 2 MG/ML SYR IV PRN (21:00)
[2022-04-02] MEDS ORDERED: MORPHINE 2 MG/ML SYR ONE (21:10)
[2022-04-02 21:21] VITALS: BMI 24.3
[2022-04-02 21:24] LABS: SARS-CoV-2 Antigen Rapid Res Negative (Negative)
[2022-04-02 23:51] LABS: Specific Gravity 1.014 (1.005-1.030); Urine Bacteria None Seen /HPF (<20); Urine Bilirubin NEGATIVE (Negative); Urine Blood 2+ (Negative); Urine Clarity Clear (Clear); Urine Color Light-Yellow (Yellow); Urine Glucose NEGATIVE (Negative); Urine Mucus Slight /HPF (None Seen); Urine Protein NEGATIVE (Negative); Urine RBC <5 /HPF (None Seen); Urine Urobilinogen Normal (Normal); Urine pH 6.5 (5.0-7.0)
[2022-04-03 00:34] VITALS: O2SAT 99
[2022-04-03] MEDS: NS KCL 20MEQ 20 MEQ/1,000 ML BAG IV SCH ×2 (02:42→06:00)
[2022-04-03 03:14] LABS: Absolute Lymphocytes (CBC) 2.2 K/uL (0.7-4.9); Hematocrit 33.1 % (36.0-45.0); Lymphocytes % 49.6 % (15.3-44.8); MPV 10.6 fL (7.6-11.3); RBC Red Blood Cell Count 3.89 M/uL (3.86-4.86)
[2022-04-03 03:24] LABS: Magnesium 1.7 mg/dL (1.6-2.4); Phosphorus 2.3 mg/dL (2.5-4.9); Potassium 3.5 mmol/L (3.5-5.1)
[2022-04-03] MEDS ORDERED: MAGNESIUM SULFATE 1 gm IVPB 1 GM/100 ML BAG IV ONE (04:10)
[2022-04-03] MEDS: MORPHINE 2 MG/ML SYR IV PRN ×3 (04:21→12:21)
[2022-04-03] MEDS: METOCLOPRAMIDE 10 MG/2mL INJ IV PRN ×2 (04:21→10:00)
[2022-04-03] MEDS ORDERED: INFLUENZA VACCINE (for 6+ mo) 0.5 ML DOSE IMVAC ONE (08:00)
[2022-04-03] MEDS ORDERED: POTASSIUM PHOS IN 0.9 % NACL 15 MMOL/250 ML BAG IV ONE (09:00)
[2022-04-03 13:12] VITALS: BP 132/88; TEMP 97.7
--- NOTE | 2022-04-03 14:16 | P.DS ---
Admission Date: 04/02/22 Discharge Date: 04/03/22 Primary Care Provider: Jeremiah Reason for Admission: Intractable N/V - Problems (1) Hypokalemia Current Visit: Yes Status: Acute (2) Intractable nausea and vomiting Current Visit: Yes Status: Acute (3) Gastroparesis Current Visit: Yes Status: Chronic Brief History of Present Illness: Patient is a 31 year old female with past medical history of gastroparesis, IBS, and PTSD who presented to the ED with complaints of abdominal pain, nausea, and vomiting for 4 days. Patient stated she was not been able to hold anything down. She was noted to have a potassium of 2.9. Abdominal imaging was negative. In the emergency department, she received IV fluids, pepcid, several rounds of morphine and zofran without resolution of the vomiting. Patient was hospitalized for further management. Hospital Course: Patient placed under observation on the medical floor and treated supportively with IV fluid. She was also placed on Reglan for gastroparesis and severe hypokalemia corrected with IV potassium replacement. She was also treated with Protonix. Patient's symptoms improved and tolerated diet advancement to soft consistency. She stated she feels she has improved to baseline and tolerating her diet. She denies any abdominal pain. She requested for discharge. Patient vitals are stable for discharge. Vital Signs/Physical Exam: Temp Pulse Resp BP Pulse Ox 97.7 F 69 16 132/88 97 04/03/22 12:00 04/03/22 12:00 04/03/22 12:21 04/03/22 12:00 04/03/22 12:21 General: Alert, In no apparent distress, Oriented x3 HEENT: Mucous membr. moist/pink Neck: Supple, JVD not distended Respiratory: Clear to auscultation bilaterally, Normal air movement Cardiovascular: No edema, Regular rate/rhythm, Normal S1 S2 Gastrointestinal: Normal bowel sounds, Soft and benign, Non-distended, No tenderness Musculoskeletal: No swelling Integumentary: No rashes Neurological: Normal strength at 5/5 x4 extr Laboratory Data at Discharge: WBC 4.40 K/uL (4.3-10.9) 04/03/22 02:50 Hgb 11.2 g/dL (12.0-15.0) L D 04/03/22 02:50 Hct 33.1 % (36.0-45.0) L 04/03/22 02:50 Plt Count 162 K/uL (152-406) 04/03/22 02:50 Sodium 141 mmol/L (136-145) 04/03/22 02:50 Potassium 3.5 mmol/L (3.5-5.1) D 04/03/22 02:50 BUN 5 mg/dL (7-18) L 04/03/22 02:50 Creatinine 0.54 mg/dL (0.55-1.02) L 04/03/22 02:50 Glucose 82 mg/dL (74-106) 04/03/22 02:50 Phosphorus 2.3 mg/dL (2.5-4.9) L 04/03/22 02:50 Magnesium 1.7 mg/dL (1.6-2.4) 04/03/22 02:50 Total Bilirubin 0.6 mg/dL (0.2-1.0) 04/02/22 15:42 AST 41 U/L (15-37) H 04/02/22 15:42 ALT 51 U/L (13-56) 04/02/22 15:42 Alkaline Phosphatase 115 U/L (45-117) 04/02/22 15:42 Triglycerides 52 mg/dL (<150) 04/03/22 02:50 Cholesterol 141 mg/dL (<200) 04/03/22 02:50 HDL Cholesterol 49 mg/dL (40-60) 04/03/22 02:50 Cholesterol/HDL Ratio 2.88 04/03/22 02:50 Lipase 77 U/L (73-393) 04/02/22 15:42 Home Medications: Eszopiclone 3 mg PO DAILY 04/02/22 Paroxetine HCl [Paroxetine ER] 20 mg PO DAILY 04/02/22 Metoclopramide HCl [Reglan] 5 mg PO DAILY PRN #5 tab 04/03/22 Pantoprazole Sodium [Protonix] 40 mg PO DAILY #30 tab 04/03/22 New Medications: Pantoprazole Sodium [Protonix] 40 mg PO DAILY #30 tab Metoclopramide HCl [Reglan] 5 mg PO DAILY PRN #5 tab PRN Reason: Nausea / Vomiting Diet: Regular Activity: Ad erin Followup: Kelton Daniels MD [Primary Care Provider] -
== END 2022-04-03 14:32 | disposition home or self-care (01) ==
LOC: ER 14:23 → ERHOLD 19:16 → 2ND 22:19
PROVIDERS: ADMIT Internal Medicine; ATTEND Internal Medicine
DX: E87.6 Hypokalemia (principal); K31.84 Gastroparesis; R11.2 Nausea with vomiting, unspecified; Z88.8 Allergy status to other drugs, medicaments and biological substances; K58.9 Irritable bowel syndrome, unspecified; F43.10 Post-traumatic stress disorder, unspecified; Z20.822 Contact with and (suspected) exposure to COVID-19; Z23 Encounter for immunization
CPT/HCPCS: 36415; 74022; 80048; 80053; 80061; 81001; 81003; 81015; 83690; 83735; 84100; 85025; 87811; 90471; 96361; 96365; 96366; 96375; 99285; G0378; J2270; J2405; J2765; J3475; J3480; J7030; Q2035

== ENCOUNTER 2022-04-04 12:57 | Emergency (ER) | payer SELFPAY ==
[2022-04-04] MEDS ORDERED: PROMETHAZINE INJ 25 MG/ML AMP ONE (13:23)
[2022-04-04] MEDS ORDERED: POTASS/SODIUM PHOSPHATE 1 PKT POWD.PACK ONE (13:28)
[2022-04-04] MEDS ORDERED: LORAZEPAM 0.5 MG TABLET ONE (13:29)
--- NOTE | 2022-04-04 16:54 | ER ---
Nurse's Notes [facility] Name: Efrem Pastor Age: 31 yrs Sex: Female : 1990 Arrival Date: 04/04/2022 Time: 12:59 Bed 7 Private MD: Diagnosis: Gastroparesis;Nausea with vomiting, unspecified Presentation: 04/04 13:03 Chief complaint: Diffuse abdominal pain and N/V x 6 days. Discharged from hospital hb yesterday, reports she has been vomiting nonstop since she got home. Coronavirus screen: Client presents with at least one sign or symptom that may indicate coronavirus-19. Standard/surgical mask placed on the client. Provider contacted for isolation considerations. Ebola Screen: No symptoms or risks identified at this time. Initial Sepsis Screen: Does the patient meet any 2 criteria? No. Patient's initial sepsis screen is negative. Does the patient have a suspected source of infection? No. Patient's initial sepsis screen is negative. Risk Assessment: Do you want to hurt yourself or someone else? Patient reports no desire to harm self or others. Onset of symptoms was March 29, 2022. 13:03 Method Of Arrival: Ambulatory hb 13:03 Acuity: BELINDA 3 hb Triage Assessment: 17:08 Pain: Complains of pain in abdomen Pain currently is 10 out of 10 on a pain scale. 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 - Social history:: Smoking status: Reported history of juuling and/or vaping. Screenin:29 [facility] ED Fall Risk Assessment (Adult) Impaired Gait Yes (1 pt) Mobility Assist ll1 Device Used Yes (1 pt) Score/Fall Risk Level 0 - 2 = Low Risk Oriented to surroundings, Maintained a safe environment, Educated pt \\T\\ family on fall prevention, incl call for assistance when getting out of bed, Hourly rounding (assess needs \\T\\ fall precautionary measures) done. Abuse screen: Denies threats or abuse. Nutritional screening: No deficits noted. Tuberculosis screening: No symptoms or risk factors identified. Assessment: 13:29 General: Appears uncomfortable, ill, Behavior is cooperative, appropriate for age. GI: ll1 Abdomen is flat, Reports nausea, vomiting. 13:38 Reassessment: No changes from previously documented assessment. Worried about vomitus ll1 having blood in it. No obvious blood in emesis bag, approx. 200 ml. Hermann Arciniega, HEEL TRIMMER informed. 13:54 Reassessment: no further vomiting, but doesn't want to try SL meds yet. Hermann urias informed. 14:40 Reassessment: trying oral meds now. ll1 14:55 Reassessment: No changes from previously documented assessment. Patient and/or family ll1 updated on plan of care and expected duration. Pain level reassessed. 15:53 Reassessment: No changes from previously documented assessment. Patient and/or family ll1 updated on plan of care and expected duration. Pain level reassessed. Patient is alert, oriented x 3, equal unlabored respirations, skin warm/dry/pink. 16:06 Reassessment: No changes from previously documented assessment. Patient and/or family ll1 updated on plan of care and expected duration. Pain level reassessed. Patient is alert, oriented x 3, equal unlabored respirations, skin warm/dry/pink. 16:10 Reassessment: No changes from previously documented assessment. Dry heaving with scant ll1 amount of mucus output. Hermann Arciniega informed. 17:05 Reassessment: No changes from previously documented assessment. patient upset about ll1 erythromycin order. "What is that going to do for me right now? Is it for my pain or vomiting? Then why are we dallying around?" Hermann Arciniega informed. 17:30 Reassessment: No changes from previously documented assessment. Dr. Juarez at . ll1 17:45 Reassessment: No changes from previously documented assessment. Patient and/or family ll1 updated on plan of care and expected duration. Pain level reassessed. Vital Signs: 13:03 BP 166 / 105; Pulse 82; Resp 16; Temp 98.3; Pulse Ox 100% on R/A; Weight 60.33 kg; hb Height 5 ft. 2 in. (157.48 cm); Pain 9/10; 15:52 BP 153 / 120; Pulse 89; Pulse Ox 96% on R/A; ll1 16:06 BP 131 / 91; Pulse 83; Resp 16; Pulse Ox 96% on R/A; ll1 13:03 Body Mass Index 24.33 (60.33 kg, 157.48 cm) hb 15:52 Dry heaving during vitals. ll1 16:06 no longer dry heaving ll1 ED Course: 12:59 Patient arrived in ED. rg4 13:03 Nanda Arciniega FNP-C is PHCP. snw 13:03 Billy Juarez MD is Attending Physician. snw 13:04 Triage completed. hb 13:04 Arm band placed on. hb 13:07 Andre Helm, BRUCE is Primary Nurse. ll1 13:07 Patient placed in an exam room, on a stretcher. ll1 13:29 Patient has correct armband on for positive identification. Bed in low position. ll1 17:07 No provider procedures requiring assistance completed. Patient did not have IV access ll1 during this emergency room visit. Administered Medications: 13:28 Drug: Phenergan (promethazine) 25 mg Route: IM; Site: right gluteus; ll1 14:38 Follow up: Response: No adverse reaction; RASS: Alert and Calm (0) ll1 14:38 Drug: Potassium \\T\\ Sodium Phosphates Packet 280 mg-160 mg-250 mg 1 packets Route: PO; ll1 17:05 Follow up: Response: No adverse reaction ll1 14:38 Drug: Ativan (LORazepam) 0.5 mg Route: PO; ll1 17:05 Follow up: Response: No adverse reaction; RASS: Alert and Calm (0) ll1 17:05 Not Given (Patient Refused): ERYTHromycin 250 mg PO once ll1 17:05 Not Given (Patient Refused): INDeral (propranolol) 40 mg PO once ll1 Medication: 13:29 VIS not applicable for this client. ll1 Outcome: 16:53 Discharge ordered by . snw 17:07 Condition: stable ll1 17:45 Discharged to home ambulatory. ll1 17:45 Discharge instructions given to patient, Instructed on discharge instructions, follow up and referral plans. Demonstrated understanding of instructions, follow-up care, medications, Prescriptions given X 2. 17:46 Patient left the ED. ll1 Signatures: Nanda Arciniega, SPRAY RIG OPERATOR-C SPRAY RIG OPERATOR-Csnw Alexandra Bailon, RN RN Malathi Hou rg4 Andre Helm RN RN ll1 Corrections: (The following items were deleted from the chart) 15:55 15:52 BP 153 / 120; Pulse 128bpm; Pulse Ox 96% RA; Dry heaving during vitals. ; ll1 ll1
--- NOTE | 2022-04-04 16:54 | EDPHYS ---
Physician Documentation [facility] Name: Efrem Pastor Age: 31 yrs Sex: Female : 1990 Arrival Date: 04/04/2022 Time: 12:59 Bed 7 Private MD: ED Physician Billy Juarez HPI: 04/04 13:34 This 31 yrs old Female presents to ER via Ambulatory with complaints of Vomiting, snw Abdominal Pain. 13:34 The patient presents to the emergency department with nausea, vomiting, abdominal pain. snw Onset: The symptoms/episode began/occurred 4 day(s) ago, and became persistent. The symptoms are aggravated by nothing. The symptoms are alleviated by nothing. Severity of symptoms: At their worst the symptoms were moderate severe. The patient has experienced similar episodes in the past. The patient has been recently seen by a physician: The patient has been recently been admitted at [facility], was discharged yesterday, for similar complaints, but despite evaluation and treatment the patient has continued symptoms. 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 - Social history:: Smoking status: Reported history of juuling and/or vaping. ROS: 13:35 Constitutional: Negative for fever, chills, and weight loss, Eyes: Negative for injury, snw pain, redness, and discharge, ENT: Negative for injury, pain, and discharge, Neck: Negative for injury, pain, and swelling, Cardiovascular: Negative for chest pain, palpitations, and edema, Respiratory: Negative for shortness of breath, cough, wheezing, and pleuritic chest pain, Back: Negative for injury and pain, : Negative for injury, bleeding, discharge, and swelling, MS/Extremity: Negative for injury and deformity, Skin: Negative for injury, rash, and discoloration, Neuro: Negative for headache, weakness, numbness, tingling, and seizure, Psych: Negative for depression, anxiety, suicide ideation, homicidal ideation, and hallucinations. 13:35 Abdomen/GI: Positive for abdominal pain, nausea and vomiting. Exam: 13:27 Head/Face: Normocephalic, atraumatic. Eyes: Pupils equal round and reactive to light, snw extra-ocular motions intact. Lids and lashes normal. Conjunctiva and sclera are non-icteric and not injected. Cornea within normal limits. Periorbital areas with no swelling, redness, or edema. ENT: Nares patent. No nasal discharge, no septal abnormalities noted. Tympanic membranes are normal and external auditory canals are clear. Oropharynx with no redness, swelling, or masses, exudates, or evidence of obstruction, uvula midline. Mucous membranes moist. Neck: Trachea midline, no thyromegaly or masses palpated, and no cervical lymphadenopathy. Supple, full range of motion without nuchal rigidity, or vertebral point tenderness. No Meningismus. Chest/axilla: Normal chest wall appearance and motion. Nontender with no deformity. No lesions are appreciated. Cardiovascular: Regular rate and rhythm with a normal S1 and S2. No gallops, murmurs, or rubs. Normal PMI, no JVD. No pulse deficits. Respiratory: Lungs have equal breath sounds bilaterally, clear to auscultation and percussion. No rales, rhonchi or wheezes noted. No increased work of breathing, no retractions or nasal flaring. 13:27 Back: No spinal tenderness. No costovertebral tenderness. Full range of motion. Skin: Warm, dry with normal turgor. Normal color with no rashes, no lesions, and no evidence of cellulitis. MS/ Extremity: Pulses equal, no cyanosis. Neurovascular intact. Full, normal range of motion. Neuro: Awake and alert, GCS 15, oriented to person, place, time, and situation. Cranial nerves II-XII grossly intact. Motor strength 5/5 in all extremities. Sensory grossly intact. Cerebellar exam normal. Normal gait. 13:27 Constitutional: The patient appears alert, anxious. 13:27 Abdomen/GI: Inspection: abdomen appears normal, Bowel sounds: active, all quadrants, Palpation: moderate abdominal tenderness, in all quadrants. 13:27 Psych: Affect is tearful. Vital Signs: 13:03 BP 166 / 105; Pulse 82; Resp 16; Temp 98.3; Pulse Ox 100% on R/A; Weight 60.33 kg; hb Height 5 ft. 2 in. (157.48 cm); Pain 9/10; 15:52 BP 153 / 120; Pulse 89; Pulse Ox 96% on R/A; ll1 16:06 BP 131 / 91; Pulse 83; Resp 16; Pulse Ox 96% on R/A; ll1 13:03 Body Mass Index 24.33 (60.33 kg, 157.48 cm) hb 15:52 Dry heaving during vitals. ll1 16:06 no longer dry heaving ll1 MDM: 13:06 Patient medically screened. snw 16:10 ED course: Pt has not vomited since Phenergan. She was recently admitted and then snw discharged for intractable N/V. + history of gastroparesis. I will not medicate with narcotics for this diagnosis. Pt to be discharged to home with Phenergan suppositories and EES. Pt to f/u with Dr. Hood.. 16:55 Differential diagnosis: chronic abdominal pain. Data reviewed: vital signs, nurses snw notes, diagnostic data from outside facility, old medical records, admission from 04/02/22, Pt was discharged yesterday. Care significantly affected by the following chronic conditions: Gastroparesis. Counseling: I had a detailed discussion with the patient and/or guardian regarding: the historical points, exam findings, and any diagnostic results supporting the discharge/admit diagnosis, the need for outpatient follow up, for definitive care, a infusion pharmacist. Response to treatment: the patient's symptoms have mildly improved after treatment, no vomiting in ED post phenergan. Awaiting: EES and propranolol from pharmacy. 04/04 13:12 [place] [facility] [place] 20min post phenergan to give k-phos; Complete Time: 14:38 snw 04/04 15:42 Order name: Recheck Vital Signs; Complete Time: 15:48 snw Administered Medications: 13:28 Drug: Phenergan (promethazine) 25 mg Route: IM; Site: right gluteus; ll1 14:38 Follow up: Response: No adverse reaction; RASS: Alert and Calm (0) ll1 14:38 Drug: Potassium \T\ Sodium Phosphates Packet 280 mg-160 mg-250 mg 1 packets Route: PO; ll1 17:05 Follow up: Response: No adverse reaction ll1 14:38 Drug: Ativan (LORazepam) 0.5 mg Route: PO; ll1 17:05 Follow up: Response: No adverse reaction; RASS: Alert and Calm (0) ll1 17:05 Not Given (Patient Refused): ERYTHromycin 250 mg PO once ll1 17:05 Not Given (Patient Refused): INDeral (propranolol) 40 mg PO once ll1 Disposition Summary: 04/04/22 16:53 Discharge Ordered Location: Home snw Condition: Stable snw Diagnosis - Gastroparesis snw - Nausea with vomiting, unspecified snw Followup: snw - With: Emergency Department - When: As needed - Reason: Fever > 102 F Followup: snw - With: Private Physician - When: 1 - 2 days - Reason: Recheck today's complaints, Continuance of care, Re-evaluation by your physician Discharge Instructions: - Discharge Summary Sheet snw - Gastroparesis snw Forms: - Medication Reconciliation Form snw - Thank You Letter snw - Antibiotic Education snw - Prescription Opioid Use snw Prescriptions: - Erythromycin 250 mg Oral Tablet - take 1 tablet by ORAL route every 6 hours for 10 days; 40 tablet; Refills: 0, snw Product Selection Permitted - Compazine 10 mg Oral Tablet - take 1 tablet by ORAL route every 8 hours As needed; 20 tablet; Refills: 0, stewart Product Selection Permitted - Zofran 4 mg Oral Tablet - take 1 tablet by ORAL route every 12 hours As needed; 20 tablet; Refills: 0, stewart Product Selection Permitted Signatures: Nanda Arciniega, JUSTINE-C TECHNICAL APPLICATIONS SCIENTIST-Csnw Alexandra Bailon, RN RN Andre Helm RN RN ll1
[2022-04-04] MEDS ORDERED: PROPRANOLOL HCL 40 MG TAB PO ONE (17:00)
[2022-04-04] MEDS ORDERED: ERYTHROMYCIN BASE 250 MG TAB PO ONE (17:00)
[2022-04-04 18:13] VITALS: TEMP 98.3
[2022-04-04 18:15] VITALS: O2SAT 96
[2022-04-04 18:16] VITALS: BP 131/91
== END 2022-04-04 17:46 | disposition home or self-care (01) ==
LOC: ER 12:57
DX: R11.2 Nausea with vomiting, unspecified (principal); K31.84 Gastroparesis
CPT/HCPCS: 96372; 99283; J2550

== ENCOUNTER 2022-07-31 13:20 | Emergency (ER) | payer BC ==
[2022-07-31 14:09] LABS: Absolute Lymphocytes (CBC) 1.3 K/uL (0.7-4.9); Hematocrit 38.6 % (36.0-45.0); Lymphocytes % 31.2 % (15.3-44.8); MCV 84.4 fL (80-100); MPV 9.6 fL (7.6-11.3); RBC Red Blood Cell Count 4.57 M/uL (3.86-4.86)
[2022-07-31] MEDS ORDERED: DICYCLOMINE HCL 10 MG CAP ONE (14:15)
[2022-07-31] MEDS ORDERED: NA CHLORIDE 0.9% 1,000 ML ONE (14:15)
[2022-07-31] MEDS ORDERED: METOCLOPRAMIDE 10 MG/2mL INJ ONE (14:15)
[2022-07-31] MEDS ORDERED: DIPHENHYDRAMINE 50 MG/ML VIAL ONE (14:15)
[2022-07-31] MEDS ORDERED: KETOROLAC 30 MG/ML INJ ONE (14:15)
[2022-07-31 14:16] LABS: Urine Bacteria None Seen /HPF (<20); Urine Bilirubin NEGATIVE (Negative); Urine Blood Negative (Negative); Urine Clarity Extremely Turbid (Clear); Urine Color Yellow (Yellow); Urine Glucose NEGATIVE (Negative); Urine Protein TRACE (Negative); Urine RBC <5 /HPF (None Seen); Urine Urobilinogen Normal (Normal); Urine pH 8.5 (5.0-7.0)
[2022-07-31] MEDS ORDERED: DICYCLOMINE HCL 20 MG/2 ML AMP IM ONE (14:17)
[2022-07-31 14:33] LABS: Albumin 3.5 g/dL (3.4-5.0); Bilirubin Total 0.5 mg/dL (0.2-1.0); Potassium 3.9 mEq/L (3.5-5.1); Protein, Total 7.4 g/dL (6.4-8.2)
[2022-07-31] MEDS ORDERED: FAMOTIDINE 20 MG/2 ML VIAL IV ONE (15:11)
[2022-07-31] MEDS ORDERED: KETAMINE HCL IN 0.9 % NACL 50 MG/5 ML SYRINGE IV ONE (15:13)
--- NOTE | 2022-07-31 15:56 | EDPHYS ---
Physician Documentation [facility] Name: Efrem Pastor Age: 32 yrs Sex: Female : 1990 Arrival Date: 07/31/2022 Time: 13:20 Bed 18 Private MD: ED Physician Brayan Terrell HPI: 07/31 13:53 This 32 yrs old Female presents to ER via Ambulatory with complaints of Vomiting, rt Weakness. 13:53 Patient with history of gastroparesis presents to the ED with 3 days of nausea, rt vomiting. Patient says that the vomiting is not as intense as but typically is seen with her gastroparesis. 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 She attributes this nausea vomiting to the antibiotic. She states that she is also had some watery diarrhea. Denies hematemesis, hematochezia. Denies other acute complaints at this time. Pain is aching nature, nonradiating, mild in severity, no other aggravating limiting factors.. Historical: - Allergies: 13:30 Haldol; cm10 13:30 Scopolamine HBr; cm10 - PMHx: 13:30 Gastroparesis; Irritable bowel syndrome; PTSD; cm10 - PSHx: 13:30 bilateral ureter attachment; Cholecystectomy; leep procedure; Lumpectomy of breast; cm10 right breast; - Immunization history:: Adult Immunizations unknown. - Social history:: Smoking status: Reported history of juuling and/or vaping. - Family history:: not pertinent. ROS: 13:53 Constitutional: Negative for fever, chills, and weight loss, Cardiovascular: Negative rt for chest pain, palpitations, and edema, Respiratory: Negative for shortness of breath, cough, wheezing, and pleuritic chest pain, MS/Extremity: Negative for injury and deformity, Skin: Negative for injury, rash, and discoloration, Neuro: Negative for headache, weakness, numbness, tingling, and seizure, Psych: Negative for depression, anxiety, suicide ideation, homicidal ideation, and hallucinations. 13:53 Abdomen/GI: Positive for abdominal pain, nausea, vomiting, and diarrhea. Exam: 13:53 Constitutional: This is a well developed, well nourished patient who is awake, alert, rt and in no acute distress. Head/Face: Normocephalic, atraumatic. Chest/axilla: Normal chest wall appearance and motion. Nontender with no deformity. No lesions are appreciated. Cardiovascular: Regular rate and rhythm with a normal S1 and S2. No gallops, murmurs, or rubs. Normal PMI, no JVD. No pulse deficits. Respiratory: Lungs have equal breath sounds bilaterally, clear to auscultation and percussion. No rales, rhonchi or wheezes noted. No increased work of breathing, no retractions or nasal flaring. Skin: Warm, dry with normal turgor. Normal color with no rashes, no lesions, and no evidence of cellulitis. MS/ Extremity: Pulses equal, no cyanosis. Neurovascular intact. Full, normal range of motion. Neuro: Awake and alert, GCS 15, oriented to person, place, time, and situation. Cranial nerves II-XII grossly intact. Motor strength 5/5 in all extremities. Sensory grossly intact. Cerebellar exam normal. Normal gait. Psych: Awake, alert, with orientation to person, place and time. Behavior, mood, and affect are within normal limits. 13:53 Abdomen/GI: Mild tenderness diffusely without rebound, guarding, distention. Vital Signs: 13:27 BP 130 / 102; Pulse 80; Resp 16; Temp 99.1; Pulse Ox 98% on R/A; Weight 61.23 kg (R); cm10 Height 5 ft. 2 in. (R); Pain 9/10; 15:00 BP 132 / 82; Pulse 72; Resp 16; Pulse Ox 99% ; ko1 16:15 BP 128 / 95; Pulse 78; Resp 18; Pulse Ox 99% ; ko1 13:27 Body Mass Index 24.69 (61.23 kg, 157.48 cm) cm10 13:27 Pain Scale: Adult cm10 MDM: 13:33 Patient medically screened. rt 15:56 Differential diagnosis: Gastroparesis, pancreatitis, bowel obstruction. Data reviewed: rt vital signs, nurses notes, old medical records, lab test result(s). Test considered but Not performed: CT: Patient with large number of prior CT scans, benign abdominal examination, risk of further radiation greater than recent surgical pathology such as bowel obstruction, appendicitis. Care significantly affected by the following chronic conditions: Gastroparesis. Counseling: I had a detailed discussion with the patient and/or guardian regarding: the historical points, exam findings, and any diagnostic results supporting the discharge/admit diagnosis, lab results, the need for outpatient follow up. 07/31 13:40 Order name: CBC with Diff; Complete Time: 14:41 rt 07/31 13:40 Order name: CMP; Complete Time: 14:41 rt 07/31 13:40 Order name: Lipase; Complete Time: 14:41 rt 07/31 13:40 Order name: UAM; Complete Time: 14:41 rt 07/31 13:40 Order name: Test, Urine; Complete Time: 14:41 rt Administered Medications: 14:09 Drug: NS 0.9% IV 1000 ml Route: IV; Rate: 1 bolus; Site: right antecubital; ko1 15:44 Follow up: IV Status: Completed infusion; IV Intake: 1000ml ko1 14:10 Drug: metoCLOPramide IVP 10 mg Route: IVP; Site: right antecubital; ko1 15:45 Follow up: Response: No adverse reaction ko1 14:16 Drug: diphenhydrAMINE IVP 25 mg Route: IVP; Site: right antecubital; ko1 15:45 Follow up: Response: No adverse reaction ko1 14:17 Drug: Ketorolac IVP 15 mg Route: IVP; Site: right antecubital; ko1 15:44 Follow up: Response: No adverse reaction ko1 14:17 Drug: Dicyclomine IM 20 mg Route: IM; Site: left gluteus; ko1 15:45 Follow up: Response: No adverse reaction ko1 15:07 Drug: Famotidine IVP 20 mg Route: IVP; Site: right antecubital; ko1 15:45 Follow up: Response: No adverse reaction ko1 15:07 Drug: Ketamine IVP 0.2 mg/kg Route: IVP; Site: right antecubital; ko1 15:45 Follow up: Response: No adverse reaction; Marked relief of symptoms; Pain is decreased ko1 Disposition Summary: 07/31/22 15:55 Discharge Ordered Location: Home rt Problem: an acute exacerbation rt Symptoms: have improved rt Condition: Stable rt Diagnosis - Gastroparesis rt Followup: rt - With: Luis Wen MD - When: As needed - Reason: Discharge Instructions: - Discharge Summary Sheet rt - Gastroparesis rt Forms: - Medication Reconciliation Form rt - Thank You Letter rt - Antibiotic Education rt - Prescription Opioid Use rt Signatures: Dispatcher [employer] Rehana Grimes RN RN ko1 Brayan Terrell MD MD rt Chelle Chavis RN RN cm10
--- NOTE | 2022-07-31 15:56 | ER ---
Nurse's Notes [facility] Name: Efrem Pastor Age: 32 yrs Sex: Female : 1990 Arrival Date: 07/31/2022 Time: 13:20 Bed 18 Private MD: Diagnosis: Gastroparesis Presentation: 07/31 13:27 Chief complaint: Patient states: "I have gastroparesis and I have been vomiting for the cm10 last 2 days. I have vomited twice today. 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 Coronavirus screen: Vaccine status: Patient reports receiving the 2nd dose of the covid vaccine. Client denies travel out of the [place] in the last 14 days. At this time, the client does not indicate any symptoms associated with coronavirus-19. Ebola Screen: No symptoms or risks identified at this time. Initial Sepsis Screen: Does the patient meet any 2 criteria? No. Patient's initial sepsis screen is negative. Does the patient have a suspected source of infection? No. Patient's initial sepsis screen is negative. Risk Assessment: Do you want to hurt yourself or someone else? Patient reports no desire to harm self or others. Onset of symptoms was July 29, 2022. 13:27 Method Of Arrival: Ambulatory cm10 13:27 Acuity: BELINDA 3 cm10 Triage Assessment: 13:30 General: Appears in no apparent distress. uncomfortable, Behavior is calm, cooperative. cm10 Pain: Complains of pain in abdomen Pain does not radiate. Pain currently is 9 out of 10 on a pain scale. Quality of pain is described as crampy, Pain began 2-3 days ago. Is continuous, Alleviated by nothing. Aggravated by eating, drinking, Also complains of nausea, Current management. Historical: - Allergies: 13:30 Haldol; cm10 13:30 Scopolamine HBr; cm10 - PMHx: 13:30 Gastroparesis; Irritable bowel syndrome; PTSD; cm10 - PSHx: 13:30 bilateral ureter attachment; Cholecystectomy; leep procedure; Lumpectomy of breast; cm10 right breast; - Immunization history:: Adult Immunizations unknown. - Social history:: Smoking status: Reported history of juuling and/or vaping. - Family history:: not pertinent. Screenin:45 [facility] ED Fall Risk Assessment (Adult) History of falling in the last 3 months, ko1 including since admission No falls in past 3 months (0 pts) Confusion or Disorientation No (0 pts) Intoxicated or Sedated No (0 pts) Impaired Gait No (0 pts) Mobility Assist Device Used No (0 pt) Altered Elimination No (0 pt) Score/Fall Risk Level 0 - 2 = Low Risk Oriented to surroundings, Maintained a safe environment, Educated pt \\T\\ family on fall prevention, incl call for assistance when getting out of bed, Assessed \\T\\ reinforced patient's understanding of fall precautions, Provided non-skid footwear, Hourly rounding (assess needs \\T\\ fall precautionary measures) done, Used ambulatory aids as needed (educated on \\T\\ assisted with), Used gait belt as appropriate. Abuse screen: Denies threats or abuse. Denies injuries from another. Nutritional screening: No deficits noted. Tuberculosis screening: No symptoms or risk factors identified. Assessment: 13:45 Neuro: No deficits noted. Cardiovascular: No deficits noted. Respiratory: No deficits ko1 noted. GI: Abdomen is flat, non-distended. : No deficits noted. EENT: No deficits noted. Derm: No deficits noted. Musculoskeletal: No deficits noted. Vital Signs: 13:27 BP 130 / 102; Pulse 80; Resp 16; Temp 99.1; Pulse Ox 98% on R/A; Weight 61.23 kg (R); cm10 Height 5 ft. 2 in. (R); Pain 9/10; 15:00 BP 132 / 82; Pulse 72; Resp 16; Pulse Ox 99% ; ko1 16:15 BP 128 / 95; Pulse 78; Resp 18; Pulse Ox 99% ; ko1 13:27 Body Mass Index 24.69 (61.23 kg, 157.48 cm) cm10 13:27 Pain Scale: Adult cm10 ED Course: 13:23 Patient arrived in ED. rg4 13:23 Brayan Terrell MD is Attending Physician. rt 13:30 Triage completed. cm10 13:30 Arm band placed on Patient placed in an exam room, on a stretcher. cm10 13:45 Patient has correct armband on for positive identification. Bed in low position. Call ko1 light in reach. Side rails up X 1. Pulse ox on. NIBP on. Door closed. Noise minimized. Lights dimmed. Warm blanket given. 13:45 Inserted saline lock: 20 gauge in right antecubital area, using aseptic technique. ko1 Blood collected. 13:55 Rehana Lamb, RN is Primary Nurse. ko1 13:55 Test, Urine Sent. ko1 13:55 UAM Sent. ko1 14:03 Lipase Sent. ko1 14:03 CMP Sent. ko1 14:03 CBC with Diff Sent. ko1 15:00 No provider procedures requiring assistance completed. ko1 15:55 Luis Wen MD is Referral Physician. rt 16:24 IV discontinued, intact, bleeding controlled, No redness/swelling at site. Pressure ko1 dressing applied. Administered Medications: 14:09 Drug: NS 0.9% IV 1000 ml Route: IV; Rate: 1 bolus; Site: right antecubital; ko1 15:44 Follow up: IV Status: Completed infusion; IV Intake: 1000ml ko1 14:10 Drug: metoCLOPramide IVP 10 mg Route: IVP; Site: right antecubital; ko1 15:45 Follow up: Response: No adverse reaction ko1 14:16 Drug: diphenhydrAMINE IVP 25 mg Route: IVP; Site: right antecubital; ko1 15:45 Follow up: Response: No adverse reaction ko1 14:17 Drug: Ketorolac IVP 15 mg Route: IVP; Site: right antecubital; ko1 15:44 Follow up: Response: No adverse reaction ko1 14:17 Drug: Dicyclomine IM 20 mg Route: IM; Site: left gluteus; ko1 15:45 Follow up: Response: No adverse reaction ko1 15:07 Drug: Famotidine IVP 20 mg Route: IVP; Site: right antecubital; ko1 15:45 Follow up: Response: No adverse reaction ko1 15:07 Drug: Ketamine IVP 0.2 mg/kg Route: IVP; Site: right antecubital; ko1 15:45 Follow up: Response: No adverse reaction; Marked relief of symptoms; Pain is decreased ko1 Medication: 13:45 VIS not applicable for this client. ko1 Intake: 15:44 IV: 1000ml; Total: 1000ml. ko1 Outcome: 15:55 Discharge ordered by . rt 16:24 Discharged to home ambulatory. ko1 16:24 Condition: stable 16:24 Discharge instructions given to patient, Instructed on discharge instructions, follow up and referral plans. medication usage, Demonstrated understanding of instructions, follow-up care, medications. 16:25 Patient left the ED. ko1 Signatures: Malathi Hou rg4 Rehana Lamb RN RN ko1 Brayan Terrell MD MD rt Chelle Chavis RN RN cm10
[2022-07-31 16:34] VITALS: TEMP 99.1
[2022-07-31 16:37] VITALS: O2SAT 99
[2022-07-31 16:38] VITALS: BP 128/95
== END 2022-07-31 16:25 | disposition home or self-care (01) ==
LOC: ER 13:20
DX: K31.84 Gastroparesis (principal); R19.7 Diarrhea, unspecified; Z88.5 Allergy status to narcotic agent; Z88.8 Allergy status to other drugs, medicaments and biological substances
CPT/HCPCS: 96361; 85025; 81001; 36415; 81025; 83690; 80053; 96375; 96372; 96374; 99284; J2765; J0500; J1200; J7030

== ENCOUNTER 2022-08-12 10:06 | Inpatient (IN) | payer BC ==
[2022-08-12] MEDS ORDERED: METOCLOPRAMIDE 10 MG/2mL INJ ONE (10:32)
[2022-08-12] MEDS ORDERED: DIPHENHYDRAMINE 50 MG/ML VIAL ONE (10:32)
[2022-08-12] MEDS ORDERED: NA CHLORIDE 0.9% 1,000 ML ONE ×2 (10:33→14:07)
[2022-08-12] MEDS ORDERED: FAMOTIDINE 20 MG/2 ML VIAL IV ONE (10:33)
[2022-08-12] MEDS ORDERED: KETOROLAC 30 MG/ML INJ ONE ×2 (10:33→14:07)
[2022-08-12 10:48] LABS: RBC Red Blood Cell Count 4.48 M/uL (3.86-4.86)
[2022-08-12 10:49] LABS: Absolute Lymphocytes (CBC) 1.2 K/uL (0.7-4.9); Lymphocytes % 16.6 % (15.3-44.8); MCV 84.8 fL (80-100); MPV 10.8 fL (7.6-11.3)
[2022-08-12 11:06] LABS: Albumin 3.5 g/dL (3.4-5.0); Bilirubin Total 0.3 mg/dL (0.2-1.0); Potassium 3.9 mEq/L (3.5-5.1); Protein, Total 7.7 g/dL (6.4-8.2)
[2022-08-12] MEDS ORDERED: NA CHLORIDE 0.9% 50 ML ONE (11:50)
[2022-08-12] MEDS ORDERED: KETAMINE HCL IN 0.9 % NACL 50 MG/5 ML SYRINGE IV ONE (11:52)
[2022-08-12] MEDS ORDERED: PROMETHAZINE INJ 25 MG/ML AMP ONE ×2 (13:08→14:07)
[2022-08-12] MEDS ORDERED: LORazepam 2 MG/ML VIAL ONE (13:09)
[2022-08-12] MEDS ORDERED: DICYCLOMINE HCL 20 MG/2 ML AMP IM ONE (13:09)
--- NOTE | 2022-08-12 15:25 | ER ---
Nurse's Notes [facility] Name: Efrem Pastor Age: 32 yrs Sex: Female : 1990 Arrival Date: 08/12/2022 Time: 10:06 Bed 16 Private MD: Kelton Daniels Diagnosis: Gastroparesis;Intractable Nausea and Vomiting Presentation: 08/12 10:10 Chief complaint: Patient states: Severe abdominal pain, vomiting and diarrhea since jl7 this morning. Hx of gastroparesis. 10:10 Method Of Arrival: Ambulatory jl7 10:10 Coronavirus screen: Vaccine status: Patient reports receiving the 2nd dose of the covid jl7 vaccine. Ebola Screen: Patient denies travel to an Ebola-affected area in the 21 days before illness onset. Initial Sepsis Screen: Does the patient meet any 2 criteria? No. Patient's initial sepsis screen is negative. Does the patient have a suspected source of infection? No. Patient's initial sepsis screen is negative. Risk Assessment: Do you want to hurt yourself or someone else? Patient reports no desire to harm self or others. Onset of symptoms was August 12, 2022. 10:10 Acuity: BELINDA 3 jl7 Historical: - Allergies: 10:16 Haldol; jl7 10:16 Scopolamine HBr; jl7 - PMHx: 10:16 Gastroparesis; Irritable bowel syndrome; PTSD; jl7 - PSHx: 10:16 bilateral ureter attachment; Cholecystectomy; leep procedure; Lumpectomy of breast; jl7 right breast; - Immunization history:: Client reports receiving the 2nd dose of the Covid vaccine. - Social history:: Smoking status: Reported history of juuling and/or vaping. - Family history:: not pertinent. Screenin:15 [facility] ED Fall Risk Assessment (Adult) History of falling in the last 3 months, kc6 including since admission No falls in past 3 months (0 pts) Confusion or Disorientation No (0 pts) Intoxicated or Sedated No (0 pts) Impaired Gait No (0 pts) Mobility Assist Device Used No (0 pt) Altered Elimination No (0 pt) Score/Fall Risk Level 0 - 2 = Low Risk Oriented to surroundings, Maintained a safe environment, Educated pt \T\ family on fall prevention, incl call for assistance when getting out of bed, Assessed \T\ reinforced patient's understanding of fall precautions, Hourly rounding (assess needs \T\ fall precautionary measures) done. Abuse screen: Denies threats or abuse. Denies injuries from another. Nutritional screening: No deficits noted. Tuberculosis screening: No symptoms or risk factors identified. Assessment: 10:15 General: Appears in no apparent distress. uncomfortable, ill, Behavior is calm, kc6 cooperative, appropriate for age. Pain: Complains of pain in abdomen Pain does not radiate. Pain currently is 10 out of 10 on a pain scale. Neuro: Level of Consciousness is obeys commands, lethargic, Oriented to person, place, time, situation, Appropriate for age. Cardiovascular: Capillary refill < 3 seconds. Respiratory: Airway is patent Trachea midline Respiratory effort is even, unlabored, Respiratory pattern is regular, symmetrical. GI: Abdomen is flat, non-distended, Bowel sounds present X 4 quads. Abd is soft X 4 quads Abdomen is tender to palpation in right upper quadrant and left upper quadrant Reports diarrhea, nausea, vomiting. : No signs and/or symptoms were reported regarding the genitourinary system. EENT: No signs and/or symptoms were reported regarding the EENT system. Derm: No signs and/or symptoms reported regarding the dermatologic system. Skin is intact, Skin is pink, warm \T\ dry. Musculoskeletal: No signs and/or symptoms reported regarding the musculoskeletal system. Circulation, motion, and sensation intact. Capillary refill < 3 seconds, Range of motion: intact in all extremities. 11:15 Reassessment: Patient appears in no apparent distress at this time. No changes from kc6 previously documented assessment. Patient and/or family updated on plan of care and expected duration. Pain level reassessed. Patient is alert, oriented x 3, equal unlabored respirations, skin warm/dry/pink. 12:15 Reassessment: Patient appears in no apparent distress at this time. No changes from kc6 previously documented assessment. Patient and/or family updated on plan of care and expected duration. Pain level reassessed. Patient is alert, oriented x 3, equal unlabored respirations, skin warm/dry/pink. 13:15 Reassessment: Patient appears in no apparent distress at this time. No changes from kc6 previously documented assessment. Patient and/or family updated on plan of care and expected duration. Pain level reassessed. Patient is alert, oriented x 3, equal unlabored respirations, skin warm/dry/pink. 14:15 Reassessment: Patient appears in no apparent distress at this time. No changes from kc6 previously documented assessment. Patient and/or family updated on plan of care and expected duration. Pain level reassessed. Patient is alert, oriented x 3, equal unlabored respirations, skin warm/dry/pink. 15:15 Reassessment: Patient appears in no apparent distress at this time. No changes from kc6 previously documented assessment. Patient and/or family updated on plan of care and expected duration. Pain level reassessed. Patient is alert, oriented x 3, equal unlabored respirations, skin warm/dry/pink. 17:31 Reassessment: REPORT TO SHEREEN BARRERA FOR RM 407. bp Vital Signs: 10:10 BP 135 / 97; Pulse 77; Resp 18; Temp 98(O); Pulse Ox 100% on R/A; Weight 59.87 kg (R); jl7 Height 5 ft. 2 in. (R); Pain 10/10; 11:03 BP 135 / 97; Pulse 61; Resp 16 S; Pulse Ox 100% on R/A; Pain 10/10; kc6 12:00 BP 127 / 93; Pulse 76; Resp 16 S; Pulse Ox 98% on R/A; kc6 12:48 BP 132 / 96; Pulse 80; Resp 19 S; Pulse Ox 97% on R/A; Pain 10/10; kc6 14:44 BP 121 / 99; Pulse 64; Resp 17 S; Pulse Ox 100% on R/A; kc6 16:00 BP 122 / 93; Pulse 78; Resp 17; Pulse Ox 100% ; bp 17:00 BP 130 / 92; Pulse 76; Resp 16; Pulse Ox 100% ; bp 10:10 Body Mass Index 24.14 (59.87 kg, 157.48 cm) jl7 10:10 Pain Scale: Adult jl7 11:03 Pain Scale: Adult kc6 12:48 Pain Scale: Adult kc6 ED Course: 10:07 Patient arrived in ED. mr 10:08 Kelton Daniels MD is Private Physician. mr 10:08 Brayan Terrell MD is Attending Physician. rt 10:11 Shereen Lopez RN is Primary Nurse. kc6 10:15 Patient has correct armband on for positive identification. Bed in low position. Call kc6 light in reach. Side rails up X 1. Adult w/ patient. 10:16 Triage completed. jl7 10:17 Arm band placed on. jl7 10:44 Inserted saline lock: 20 gauge in right antecubital area, using aseptic technique. kc6 Blood collected. 15:24 Murray Ignacio MD is Hospitalizing Provider. rt 17:23 No provider procedures requiring assistance completed. Patient admitted, IV remains in bp place. Administered Medications: 10:44 Drug: NS 0.9% IV 1000 ml Route: IV; Rate: 1 bolus; Site: right antecubital; kc6 15:47 Follow up: Response: No adverse reaction; IV Status: Completed infusion; IV Intake: kc6 1000ml 10:44 Drug: Famotidine IVP 20 mg Route: IVP; Site: right antecubital; kc6 11:38 Follow up: Response: No adverse reaction kc6 10:44 Drug: Ketorolac IVP 15 mg Route: IVP; Site: right antecubital; kc6 11:38 Follow up: Response: No adverse reaction; Pain is unchanged, physician notified kc6 10:44 Drug: metoCLOPramide IVP 10 mg Route: IVP; Site: right antecubital; kc6 11:38 Follow up: Response: No adverse reaction; Nausea is decreased; Vomiting decreased kc6 10:44 Drug: diphenhydrAMINE IVP 25 mg Route: IVP; Site: right antecubital; kc6 11:38 Follow up: Response: No adverse reaction kc6 11:51 Drug: Ketamine IVP 0.2 mg/kg Route: IVP; Site: right antecubital; kc6 12:47 Follow up: Response: No adverse reaction; Pain is unchanged, physician notified; RASS: kc6 Alert and Calm (0) 13:10 Drug: Dicyclomine IM 20 mg Route: IM; Site: left deltoid; kc6 15:46 Follow up: Response: No adverse reaction kc6 13:10 Drug: Promethazine IVP 12.5 mg Route: IVP; Site: right antecubital; kc6 15:46 Follow up: Response: No adverse reaction; Nausea unchanged; Vomiting unchanged kc6 13:10 Drug: Ativan IVP 1 mg Route: IVP; Site: right antecubital; kc6 15:46 Follow up: Response: No adverse reaction; RASS: Drowsy (-1) kc6 13:50 CANCELLED (Physician Discretion): Ketorolac IM 15 mg IM once rt 14:06 Drug: Promethazine IVP 12.5 mg Route: IVP; Site: right antecubital; kc6 15:46 Follow up: Response: No adverse reaction; Nausea unchanged; Vomiting unchanged kc6 14:06 Drug: NS 0.9% IV 1000 ml Route: IV; Rate: 1 bolus; Site: right antecubital; kc6 15:46 Follow up: Response: No adverse reaction; IV Status: Completed infusion; IV Intake: kc6 1000ml 14:06 Drug: Ketorolac IVP 15 mg Route: IVP; Site: right antecubital; kc6 15:46 Follow up: Response: No adverse reaction; Pain is unchanged, physician notified kc6 Medication: 17:32 VIS not applicable for this client. bp Intake: 15:46 IV: 1000ml; Total: 1000ml. kc6 15:47 IV: 1000ml; Total: 2000ml. kc6 Outcome: 15:25 Decision to Hospitalize by Provider. rt 17:31 Admitted to Med/surg accompanied by tech, via wheelchair, room 407, with chart, Report bp called to SHEREEN BARRERA 17:31 Condition: stable 17:31 Instructed on the need for admit. 18:14 Patient left the ED. bp Signatures: Kira Murillo HughesMaxwell RN RN jl7 Jaspreet Travis RN RN bp Campbell, Kaitlyn, RN RN kc6 Brayan Terrell MD MD rt
--- NOTE | 2022-08-12 15:25 | EDPHYS ---
Physician Documentation [facility] Name: Efrem Pastor Age: 32 yrs Sex: Female : 1990 Arrival Date: 08/12/2022 Time: 10:06 Bed 16 Private MD: Kelton Daniels ED Physician Brayan Terrell HPI: 08/12 11:58 This 32 yrs old Female presents to ER via Ambulatory with complaints of Abdominal Pain, rt Vomiting. 11:58 Patient with history of gastroparesis presents to the ED with an exacerbation of her rt acute gastroparesis symptoms. She states is not different from prior exacerbations. Started this morning. Has had nausea vomiting without diarrhea. Denies hematemesis. Denies other complaints this time. Symptoms are nature, nonradiating, no other aggravating relieving factors. Historical: - Allergies: 10:16 Haldol; jl7 10:16 Scopolamine HBr; jl7 - PMHx: 10:16 Gastroparesis; Irritable bowel syndrome; PTSD; jl7 - PSHx: 10:16 bilateral ureter attachment; Cholecystectomy; leep procedure; Lumpectomy of breast; jl7 right breast; - Immunization history:: Client reports receiving the 2nd dose of the Covid vaccine. - Social history:: Smoking status: Reported history of juuling and/or vaping. - Family history:: not pertinent. ROS: 11:58 Constitutional: Negative for fever, chills, and weight loss, Cardiovascular: Negative rt for chest pain, palpitations, and edema, Respiratory: Negative for shortness of breath, cough, wheezing, and pleuritic chest pain, MS/Extremity: Negative for injury and deformity, Skin: Negative for injury, rash, and discoloration, Neuro: Negative for headache, weakness, numbness, tingling, and seizure, Psych: Negative for depression, anxiety, suicide ideation, homicidal ideation, and hallucinations. 11:58 Abdomen/GI: Positive for abdominal pain, nausea and vomiting. Exam: 11:58 Constitutional: This is a well developed, well nourished patient who is awake, alert, rt and in no acute distress. Head/Face: Normocephalic, atraumatic. Chest/axilla: Normal chest wall appearance and motion. Nontender with no deformity. No lesions are appreciated. Cardiovascular: Regular rate and rhythm with a normal S1 and S2. No gallops, murmurs, or rubs. Normal PMI, no JVD. No pulse deficits. Respiratory: Lungs have equal breath sounds bilaterally, clear to auscultation and percussion. No rales, rhonchi or wheezes noted. No increased work of breathing, no retractions or nasal flaring. Skin: Warm, dry with normal turgor. Normal color with no rashes, no lesions, and no evidence of cellulitis. MS/ Extremity: Pulses equal, no cyanosis. Neurovascular intact. Full, normal range of motion. Neuro: Awake and alert, GCS 15, oriented to person, place, time, and situation. Cranial nerves II-XII grossly intact. Motor strength 5/5 in all extremities. Sensory grossly intact. Cerebellar exam normal. Normal gait. Psych: Awake, alert, with orientation to person, place and time. Behavior, mood, and affect are within normal limits. 11:58 Abdomen/GI: Mild tenderness diffusely without rebound, guarding, distention. 16:47 ECG was reviewed by the Attending Physician. rt Vital Signs: 10:10 BP 135 / 97; Pulse 77; Resp 18; Temp 98(O); Pulse Ox 100% on R/A; Weight 59.87 kg (R); jl7 Height 5 ft. 2 in. (R); Pain 10/10; 11:03 BP 135 / 97; Pulse 61; Resp 16 S; Pulse Ox 100% on R/A; Pain 10/10; kc6 12:00 BP 127 / 93; Pulse 76; Resp 16 S; Pulse Ox 98% on R/A; kc6 12:48 BP 132 / 96; Pulse 80; Resp 19 S; Pulse Ox 97% on R/A; Pain 10/10; kc6 14:44 BP 121 / 99; Pulse 64; Resp 17 S; Pulse Ox 100% on R/A; kc6 16:00 BP 122 / 93; Pulse 78; Resp 17; Pulse Ox 100% ; bp 17:00 BP 130 / 92; Pulse 76; Resp 16; Pulse Ox 100% ; bp 10:10 Body Mass Index 24.14 (59.87 kg, 157.48 cm) jl7 10:10 Pain Scale: Adult jl7 11:03 Pain Scale: Adult kc6 12:48 Pain Scale: Adult kc6 MDM: 10:12 Patient medically screened. rt 15:31 Differential diagnosis: Gastroparesis. Data reviewed: vital signs, nurses notes, lab rt test result(s). Consideration of Admission/Observation Patient was admitted/placed on observation. Management of patient was discussed with the following: Hospitalist: Agrees to admit. I considered the following discharge prescriptions or medication management in the emergency department Medications were administered in the Emergency Department. See MAR. Test considered but Not performed: CT: Patient with innumerable CT scans in the past, believe that risk of radiation is greater than the risk of missed surgical pathology such as appendicitis. Care significantly affected by the following chronic conditions: Gastroparesis. Counseling: I had a detailed discussion with the patient and/or guardian regarding: the historical points, exam findings, and any diagnostic results supporting the discharge/admit diagnosis, lab results. 08/12 10:17 Order name: CBC with Diff; Complete Time: 11:10 rt 08/12 10:17 Order name: CMP; Complete Time: 11:10 rt 08/12 10:17 Order name: Lipase; Complete Time: 11:10 rt 08/12 10:17 Order name: Test, Serum; Complete Time: 11:18 rt 08/12 16:58 Order name: Phosphorus; Complete Time: 17:13 EDMS 08/12 16:58 Order name: Magnesium; Complete Time: 17:13 EDMS 08/12 18:01 Order name: CT; Complete Time: 18:01 EDMS 08/12 16:28 Order name: Clear Liquid EDMS EC:47 Rate is 88 beats/min. Rhythm is regular, Normal Sinus Rhythm with No ectopy. QRS [place] rt is Normal. NV interval is normal. QRS interval is normal. QT interval is normal. No Q waves. T waves are Normal. No ST changes noted. Interpreted by me. Administered Medications: 10:44 Drug: NS 0.9% IV 1000 ml Route: IV; Rate: 1 bolus; Site: right antecubital; kc6 15:47 Follow up: Response: No adverse reaction; IV Status: Completed infusion; IV Intake: kc6 1000ml 10:44 Drug: Famotidine IVP 20 mg Route: IVP; Site: right antecubital; kc6 11:38 Follow up: Response: No adverse reaction kc6 10:44 Drug: Ketorolac IVP 15 mg Route: IVP; Site: right antecubital; kc6 11:38 Follow up: Response: No adverse reaction; Pain is unchanged, physician notified kc6 10:44 Drug: metoCLOPramide IVP 10 mg Route: IVP; Site: right antecubital; kc6 11:38 Follow up: Response: No adverse reaction; Nausea is decreased; Vomiting decreased kc6 10:44 Drug: diphenhydrAMINE IVP 25 mg Route: IVP; Site: right antecubital; kc6 11:38 Follow up: Response: No adverse reaction kc6 11:51 Drug: Ketamine IVP 0.2 mg/kg Route: IVP; Site: right antecubital; kc6 12:47 Follow up: Response: No adverse reaction; Pain is unchanged, physician notified; RASS: kc6 Alert and Calm (0) 13:10 Drug: Dicyclomine IM 20 mg Route: IM; Site: left deltoid; kc6 15:46 Follow up: Response: No adverse reaction kc6 13:10 Drug: Promethazine IVP 12.5 mg Route: IVP; Site: right antecubital; kc6 15:46 Follow up: Response: No adverse reaction; Nausea unchanged; Vomiting unchanged kc6 13:10 Drug: Ativan IVP 1 mg Route: IVP; Site: right antecubital; kc6 15:46 Follow up: Response: No adverse reaction; RASS: Drowsy (-1) kc6 13:50 CANCELLED (Physician Discretion): Ketorolac IM 15 mg IM once rt 14:06 Drug: Promethazine IVP 12.5 mg Route: IVP; Site: right antecubital; kc6 15:46 Follow up: Response: No adverse reaction; Nausea unchanged; Vomiting unchanged kc6 14:06 Drug: NS 0.9% IV 1000 ml Route: IV; Rate: 1 bolus; Site: right antecubital; kc6 15:46 Follow up: Response: No adverse reaction; IV Status: Completed infusion; IV Intake: kc6 1000ml 14:06 Drug: Ketorolac IVP 15 mg Route: IVP; Site: right antecubital; kc6 15:46 Follow up: Response: No adverse reaction; Pain is unchanged, physician notified kc6 Disposition Summary: 08/12/22 15:25 Hospitalization Ordered Hospitalization Status: Observation rt Provider: Murray Ignacio rt Location: Telemetry/MedSurg (observation) rt Condition: Stable rt Problem: chronic rt Symptoms: are unchanged rt Bed/Room Type: Standard rt Room Assignment: 407(08/12/22 17:10) dw Diagnosis - Gastroparesis rt - Intractable Nausea and Vomiting rt Forms: - Medication Reconciliation Form rt - SBAR form rt Signatures: Dispatcher [employer] Shara Roman RN RN Maxwell Candelaria RN RN jl7 Shereen Lopez RN RN kc6 Brayan Terrell MD MD rt Corrections: (The following items were deleted from the chart) 13:50 13:50 Ketorolac IM 15 mg IM once ordered. rt rt 17:10 15:25 rt dw
[2022-08-12] MEDS ORDERED: MORPHINE 4 MG/ML SYR IV PRN (16:23)
[2022-08-12] MEDS ORDERED: ACETAMINOPHEN 325 MG TABLET PO PRN (16:23)
[2022-08-12] MEDS ORDERED: PROMETHAZINE INJ 25 MG/ML AMP IV PRN (16:26)
--- NOTE | 2022-08-12 16:33 | P.HP ---
Certification for Inpatient Patient admitted to: Inpatient With expected LOS: >2 Midnights Patient will require the following post-hospital care: None Practitioner: I am a practitioner with admitting privileges, knowledge of patient current condition, hospital course, and medical plan of care. Services: Services provided to patient in accordance with Admission requirements found in Title 42 Section 412.3 of the Code of Federal Regulations Patient History Date of Service: 08/12/22 Reason for admission: Abdominal pain, nausea vomiting History of Present Illness: Patient is a 32-year-old female with a past medical history significant for gastroparesis, PTSD, irritable bowel syndrome, GERD, depression, anxiety disorder who presents with complaint of abdominal pain located in the epigastric area. Patient reports that she has been having abdominal pain intermittently for the past 7 years. Patient reported abdominal pain became worse in the last 3 days. Patient rated pain as 10/10 in severity and described pain as aching quality. Patient reported associated signs and symptoms of nausea, vomiting, diarrhea, fatigue, weakness, generalized malaise and dizziness. Patient denies any other signs and symptoms. Symptoms are aggravated or relieved by nothing. Patient decided to present to the hospital due to worsening symptoms. Of note, patient reported that she uses cannabis and her last use was 2 weeks ago. Allergies scopolamine Allergy (Unknown, Verified 04/02/22 19:24) Itching/Hives/Rash haloperidol [From Haldol] Allergy (Verified 04/02/22 19:24) Itching/Hives/Rash Home Medications: Eszopiclone [Lunesta*] 3 mg PO BEDTIME 05/31/22 Pantoprazole Sodium [Protonix] 40 mg PO DAILY 05/31/22 Prochlorperazine [Compazine*] 5 mg PO Q8HP PRN #12 tab 06/01/22 Alprazolam [Xanax] 0.5 mg PO BID 08/12/22 - Past Medical/Surgical History Diabetic: No -: Gastroparesis -: Depression -: PTSD -: IBS -: Cholecystectomy -: LEEP -: Lumpectomy Psychosocial/ Personal History: Patient lives at home with her family. - Family History Father -: Hypertension Mother -: Diabetes - Social History Smoking Status: Never smoker Alcohol use: No CD- Drugs: No Caffeine use: Yes Place of Residence: Home Review of Systems General: Weakness, Malaise, Other (Fatigue) Eyes: Unremarkable ENT: Unremarkable Respiratory: Unremarkable Cardiovascular: Unremarkable Gastrointestinal: Nausea, Vomiting, Diarrhea Genitourinary: Unremarkable Musculoskeletal: Unremarkable Integumentary: Unremarkable Neurological: Other (Dizziness) Lymphatics: Unremarkable Physical Examination - Physical Exam General: Alert, In no apparent distress, Oriented x3, Cooperative HEENT: Atraumatic, PERRLA, Mucous membr. moist/pink, EOMI, Sclerae nonicteric Neck: Supple, 2+ carotid pulse no bruit, No LAD, Without JVD or thyroid abnormality Respiratory: Clear to auscultation bilaterally, Normal air movement Cardiovascular: No edema, Regular rate/rhythm, Normal S1 S2 Capillary refill: <2 Seconds Gastrointestinal: Normal bowel sounds, Tenderness Musculoskeletal: No clubbing, No swelling, No contractures, No tenderness Integumentary: No rashes, No significant lesion Neurological: Normal speech, Normal strength at 5/5 x4 extr, Normal tone, Normal affect Lymphatics: No axilla or inguinal lymphadenopathy - Studies Laboratory Data (last 24 hrs) 08/12/22 10:42: Sodium 141, Potassium 3.9, BUN 12, Creatinine 0.59, Glucose 112 H, Total Bilirubin 0.3, AST 18, ALT 30, Alkaline Phosphatase 136 H, Lipase 24 08/12/22 10:42: WBC 7.30, Hgb 12.3, Hct 38.0, Plt Count 253 Assessment and Plan - Plan --Gastroparesis. CT abdomen unremarkable for any acute intracranial abnormality. Patient placed on Reglan. Continue supportive care. --History of irritable bowel syndrome. Patient placed on Bentyl. --Diarrhea. Stool studies pending to rule out any infectious process. Continue IV hydration ----- --Nausea and vomiting. Antiemetics on board. Continue IV hydration. --Depression\anxiety disorder\PTSD. Continue home medications. --GERD. Continue Protonix. --Cannabis use disorder. Patient reports that she last used marijuana 2 weeks ago. Patient counseled on drug cessation. --Acute pain. We will manage pain with current pain medication regimen. --DVT prophylaxis with Lovenox subQ. Discharge Plan: Home Plan to discharge in: Greater than 2 days - Advance Directives Does patient have a Living Will: No Does patient have a Durable POA for Healthcare: No - Code Status/Comfort Care Code Status Assessed: Yes Physician Review: Patient Assessed, Agree with Above Assessment and Plan Critical Care: No
[2022-08-12 16:58] LABS: Magnesium 1.9 mg/dL (1.6-2.4); Phosphorus 2.6 mg/dL (2.5-4.9)
--- NOTE | 2022-08-12 18:00 | RAD REPORT ---
EXAM DESCRIPTION: CT - Abdomen Wo Contrast - 08/12/2022 5:33 pm CLINICAL HISTORY: Intractible abdominal Pain COMPARISON: Abdomen Pelvis W Contrast dated 09/06/2021; Abdomen Pelvis W Contrast dated 10/25/2021 TECHNIQUE: Thin cut axial CT imaging of the abdomen was performed without IV contrast. Multiplanar r eformats were generated and reviewed. All CT scans are performed using dose optimization technique as appropriate and may include automated exposure control or mA/KV adjustment according to patient size. FINDINGS: No suspicious findings in the lung bases. The liver, spleen, adrenal glands, and pancreas show no suspicious findings. A small splenule is pres ent. Status post cholecystectomy. Scarring along the anterior right midpole cortex with punctate parenchymal calcification, stable in a ppearance. This may relate to sequelae of remote infectious process. No other suspicious Parenchymal findings within limits of noncontrast technique. No evidence of radiopaque calculi or hydroureteronep hrosis. No dilated bowel loops or bowel wall thickening. No free air, free fluid or inflammatory stranding. N o hernia, mass or bulky lymphadenopathy. No suspicious bony findings. IMPRESSION: No acute intra-abdominal process. Status post cholecystectomy. Right renal midpole rem ote scarring.
[2022-08-12] MEDS: METOCLOPRAMIDE 10 MG/2mL INJ IV SCH ×2 (18:06→21:34)
[2022-08-12] MEDS: NA CHLORIDE 0.9% 1,000 ML IV SCH (18:06)
[2022-08-12 18:08] VITALS: BMI 24.1
[2022-08-12] MEDS: MORPHINE 2 MG/ML SYR IV PRN (18:18)
[2022-08-12 18:29] VITALS: O2SAT 100
[2022-08-12] MEDS: ESZOPICLONE 1 MG TAB PO SCH (21:00)
[2022-08-12] MEDS: DICYCLOMINE HCL 10 MG CAP PO SCH (21:34)
[2022-08-12] MEDS: ALPRAZOLAM 0.5 MG TABLET PO SCH (21:34)
[2022-08-12] MEDS: PROMETHAZINE INJ 25 MG/ML AMP IV PRN (21:44)
[2022-08-13] MEDS: ONDANSETRON 4 MG/2 ML VIAL IV PRN ×3 (02:33→16:24)
[2022-08-13] MEDS: MORPHINE 2 MG/ML SYR IV PRN ×6 (02:33→22:23)
[2022-08-13] MEDS: NA CHLORIDE 0.9% 1,000 ML IV SCH ×2 (06:27→20:12)
[2022-08-13] MEDS: PROMETHAZINE INJ 25 MG/ML AMP IV PRN ×3 (06:30→22:23)
[2022-08-13 06:39] LABS: Hematocrit 34.2 % (36.0-45.0); Lymphocytes % 22.4 % (15.3-44.8); MCV 84.4 fL (80-100); MPV 10.5 fL (7.6-11.3); RBC Red Blood Cell Count 4.06 M/uL (3.86-4.86)
[2022-08-13 06:51] LABS: Potassium 3.4 mEq/L (3.5-5.1)
[2022-08-13] MEDS: PANTOPRAZOLE 40MG TABLET PO SCH (07:20)
[2022-08-13] MEDS: DICYCLOMINE HCL 10 MG CAP PO SCH ×3 (07:20→20:13)
[2022-08-13] MEDS: ENOXAPARIN 40 MG/0.4 ML SQ SCH (07:21)
[2022-08-13] MEDS: METOCLOPRAMIDE 10 MG/2mL INJ IV SCH (07:21)
[2022-08-13] MEDS: ALPRAZOLAM 0.5 MG TABLET PO SCH ×2 (07:21→20:13)
[2022-08-13] MEDS ORDERED: POTASSIUM 25 MEQ EFFERV TAB PO ONE (09:00)
--- NOTE | 2022-08-13 12:30 | EKG ---
Test Date: 2022-08-12 Test Time: 16:34:57 Staff Training And Development Manager: DARIEN MEASUREMENT RESULTS: Intervals: Rate: 88 NC: 152 QRSD: 80 QT: 402 QTc: 486 [place]: P: 80 NC: 152 QRS: 84 T: 48 INTERPRETIVE STATEMENTS: Normal sinus rhythm with sinus arrhythmia Prolonged QT Abnormal ECG Compared to ECG 07/28/2021 22:29:24 Prolonged QT interval now present Electronically Signed On 08-13-22 12:29:30 CDT by Otto Tovar
--- NOTE | 2022-08-13 14:08 | P.PN ---
Subjective Date of Service: 08/13/22 Chief Complaint: Abdominal pain, nausea vomiting No acute events overnight. She reports persistent abdominal pain, nausea, and vomiting. She states that she was previously given metoclopramide, but this was discontinued due to tardive dyskinesia. She states that she has had to take ke tamine in the past for her symptoms. She denies any chest pain, palpitations, shortness of breath, or diarrhea. Review of Systems 10-point ROS is otherwise unremarkable Gastrointestinal: Nausea, Vomiting, Abdominal Pain Physical Examination - Vital Signs Temperature: 97.2 F Blood Pressure: 104/66 Pulse: 74 Respirations: 16 Pulse Ox (%): 98 - Physical Exam General: Alert, In no apparent distress, Oriented x3 HEENT: Atraumatic, Mucous membr. moist/pink, Sclerae nonicteric Neck: JVD not distended Respiratory: Clear to auscultation bilaterally, Normal air movement Cardiovascular: No edema, Regular rate/rhythm, Normal S1 S2, No gallops, No rubs, No murmurs Gastrointestinal: Normal bowel sounds, Soft and benign, Non-distended, No rebound, No guarding, Tenderness (generalized) Musculoskeletal: No clubbing Integumentary: No rashes Neurological: Normal speech, Normal affect - Studies Laboratory Data (last 24 hrs) 08/12/22 10:42: Phosphorus 2.6, Magnesium 1.9 Assessment And Plan - Plan # Intractable Abdominal Pain/Nausea/Vomiting due to Gastroparesis # History of Irritable Bowel Syndrome # Substance Use Disorder - Cannabis # Gastroesophageal Reflux Disease - Evaluation thus far: - CT abdomen = "No acute intra-abdominal process. Status post cholecystectomy. Right renal midpole remote scarring." - UDS = pending - Urine = negative - Management plan: - Consulted Gastroenterology and spoke with Dr. Hood - recommendations appreciated - Metoclopramide discontinued due to prior history of tardive dyskinesa - Continue PRN ondansetron, promethazine, morphine - Continue dicyclomine, pantoprazole - NPO - advance diet as tolerated # Anxiety # Depression # Post-Traumatic Stress Disorder - Continue home PRN corazomariana Ignacio M.D.
[2022-08-13] MEDS: ESZOPICLONE 1 MG TAB PO SCH (21:00)
[2022-08-14] MEDS: MORPHINE 2 MG/ML SYR IV PRN ×3 (02:15→11:00)
[2022-08-14] MEDS: ONDANSETRON 4 MG/2 ML VIAL IV PRN ×2 (02:15→11:00)
[2022-08-14 05:21] LABS: Hematocrit 33.3 % (36.0-45.0)
[2022-08-14 05:27] LABS: Magnesium 1.8 mg/dL (1.6-2.4); Potassium 3.8 mEq/L (3.5-5.1)
[2022-08-14] MEDS: NA CHLORIDE 0.9% 1,000 ML IV SCH (06:18)
[2022-08-14] MEDS: PROMETHAZINE INJ 25 MG/ML AMP IV PRN (06:19)
[2022-08-14] MEDS: DICYCLOMINE HCL 10 MG CAP PO SCH (08:36)
[2022-08-14] MEDS: PANTOPRAZOLE 40MG TABLET PO SCH (08:36)
[2022-08-14] MEDS: ALPRAZOLAM 0.5 MG TABLET PO SCH (08:36)
[2022-08-14] MEDS: ENOXAPARIN 40 MG/0.4 ML SQ SCH (08:36)
[2022-08-14] MEDS ORDERED: MAGNESIUM SULFATE 1 gm IVPB 1 GM/100 ML BAG IV ONE (09:00)
[2022-08-14] MEDS ORDERED: POTASSIUM CL SA 10 MEQ TAB PO ONE (09:00)
[2022-08-14 09:49] VITALS: BP 132/89; TEMP 97.7
--- NOTE | 2022-08-14 12:53 | P.DS ---
Admission Date: 08/12/22 Discharge Date: 08/14/22 Disposition: ROUTINE DISCHARGE Discharge Condition: GOOD Reason for Admission: Abdominal pain, nausea vomiting Consultations: 1. Gastroenterology Hospital Course: DIAGNOSES: # Intractable Abdominal Pain/Nausea/Vomiting due to Gastroparesis # History of Irritable Bowel Syndrome # Substance Use Disorder - Cannabis # Gastroesophageal Reflux Disease # Anxiety # Depression # Post-Traumatic Stress Disorder # Small Splenule HOSPITAL COURSE: Ms. Efrem Pastor is a 32 year old female with a past medical history significant for gastroparesis, irritable bowel syndrome, gastroesophageal reflux disease, anxiety, depression, and post-traumatic stress disorder who was admitted to the [facility] on 08/12/2022 for intractable abdominal pain, nausea, and vomiting. She was admitted to the Medicine service. Upon further evaluation, her CT abdomen revealed, "no acute intra-abdominal process. Status post cholecystectomy. Right renal midpole remote scarring." She was placed NPO, treated with anti-emetics, and evaluated by Dr. Hood. He has cleared her for discharge home with outpatient follow-up at the [facility]. Over the course of her hospitalization, her symptoms improved significantly. Her diet was advanced and she was able to tolerate a regular t, without any issues. Of note, she was found to have a mild anemia. She denies any evidence of bleeding, particularly no hematemesis, hematochezia, melena, or hematuria. She was given instructions to schedule a follow-up with her PCP for further evaluation. On 08/14/2022, she was seen on rounds and deemed medically stable for discharge. She was discharged with instructions to schedule follow-up appointments with her PCP (Dr. Daniels), with her [place] (Dr. Wen), and with the [facility]. She and her family members were given the opportunity to ask questions and reported no further questions. Furthermore, all questions were answered to the best of my ability. A copy of this discharge summary will be sent to the above providers to facilitate continuity of care. Today, I personally spent 20 minutes on her case, of which greater than 50% of the time was spent in patient education, counseling, and coordination of care as described above. - Physical Exam General: Alert, In no apparent distress, Oriented x3 HEENT: Atraumatic, Mucous membr. moist/pink, Sclerae nonicteric Respiratory: Clear to auscultation bilaterally, Normal air movement Cardiovascular: No edema, Regular rate/rhythm, No murmurs Gastrointestinal: Normal bowel sounds, Soft, Non-distended, No rebound, No guarding, No tenderness Musculoskeletal: No clubbing Integumentary: No rashes Neurological: Normal speech, Normal affect Vital Signs/Physical Exam: Temp Pulse Resp BP Pulse Ox 97.7 F 56 16 132/89 94 08/14/22 08:00 08/14/22 08:00 08/14/22 11:30 08/14/22 08:00 08/14/22 11:30 Laboratory Data at Discharge: WBC 8.90 thou/uL (4.3-10.9) 08/13/22 06:22 Hgb 10.6 g/dL (12.0-15.0) L 08/14/22 04:10 Hct 33.3 % (36.0-45.0) L 08/14/22 04:10 Plt Count 247 thou/uL (152-406) 08/13/22 06:22 Sodium 140 mEq/L (136-145) 08/14/22 04:10 Potassium 3.8 mEq/L (3.5-5.1) 08/14/22 04:10 BUN 11 mg/dL (7-18) 08/14/22 04:10 Creatinine 0.63 mg/dL (0.55-1.02) 08/14/22 04:10 Glucose 100 mg/dL (74-106) 08/14/22 04:10 Phosphorus 2.6 mg/dL (2.5-4.9) 08/12/22 10:42 Magnesium 1.8 mg/dL (1.6-2.4) 08/14/22 04:10 Total Bilirubin 0.3 mg/dL (0.2-1.0) 08/12/22 10:42 AST 18 U/L (15-37) 08/12/22 10:42 ALT 30 U/L (13-56) 08/12/22 10:42 Alkaline Phosphatase 136 U/L (45-117) H 08/12/22 10:42 Lipase 24 U/L (13-75) 08/12/22 10:42 Home Medications: Eszopiclone [Lunesta*] 3 mg PO BEDTIME 05/31/22 Pantoprazole Sodium [Protonix] 40 mg PO DAILY 05/31/22 Prochlorperazine [Compazine*] 5 mg PO Q8HP PRN #12 tab 06/01/22 Alprazolam [Xanax] 0.5 mg PO BID 08/12/22 Physician Discharge Instructions: 1. Please call and schedule a follow-up appointment with your PCP (Dr. Daniels) in 3-5 days - Your blood work showed mild anemia. Please discuss with your PCP for further evaluation - Your CT scan showed a small spot on your spleen. Please discuss with your PCP for further evaluation 2. Please call and schedule a follow-up appointment with Gastroenterology (Dr. Wen) in 3-5 days 3. Please call and schedule a follow-up appointment with [facility] in 3-5 days Followup: Kelton Daniels MD [Primary Care Provider] - 1-2 Weeks Luis Wen MD [ASSOCIATE-ACTIVE - CAN ADMIT] - Time spent managing pt's care (in minutes): 20
== END 2022-08-14 13:47 | disposition home or self-care (01) | DRG 392 ==
LOC: ER 10:06 → ERHOLD 16:22 → 4TH 17:31
PROVIDERS: ADMIT Internal Medicine; ATTEND Internal Medicine
DX: K31.84 Gastroparesis (principal); F43.10 Post-traumatic stress disorder, unspecified; F32.A Depression, unspecified; D64.9 Anemia, unspecified; F41.9 Anxiety disorder, unspecified; K21.9 Gastro-esophageal reflux disease without esophagitis; F12.10 Cannabis abuse, uncomplicated; Z88.5 Allergy status to narcotic agent; Z88.8 Allergy status to other drugs, medicaments and biological substances; Z79.01 Long term (current) use of anticoagulants; Z71.51 Drug abuse counseling and surveillance of drug abuser; Z90.49 Acquired absence of other specified parts of digestive tract; Z87.891 Personal history of nicotine dependence; Z79.899 Other long term (current) drug therapy
CPT/HCPCS: 36415; 74150; 80048; 80053; 83690; 83735; 84100; 84703; 85014; 85018; 85025; 93005; 96361; 96372; 96374; 96375; 99285; J0500; J1200; J1650; J2270; J2405; J2550; J2765; J3475; J7030

== ENCOUNTER 2022-09-12 06:38 | Observation (INO) | payer BC ==
--- OUTSIDE RECORDS SUMMARY | 2022-09-12 06:42 | XMS REPORT | Continuity of Care Document ---
:1990 Author Organization [facility] t Address [address] [place] [address] Care Team Providers Name Role Phone Ted Schultz Attending Clinician Unavailable Kaelyn Peguero Attending Clinician Unavailable Physician, No Primary or Family Admitting Clinician Unavaila ble Payers Payer Name Policy Type Policy Number Effective Date Expiration Date S ource Problems This patient has no known problems. Allergies, Adverse Reactions, Alerts Allergy Allergy Status Severity Reaction(s) Onset Inactive Treating Comm ents Source Name Type Date Date Clinician haloperi DA Active SV [facility]ES [facility] scopolam DA Active SV [facility] No Known DA Active U [facility] All[facility]ie [facility]- [facility] No Known DA Active [facility] All[facility]ie -16 [facility] No Known DA Active [facility] 5[facility]16 [facility] scopolam DA Active PA [facility] 4[facility] scopolam DA Active PA RASH-HIVES [facility] 4[facility]10 [facility] No Known DA Active U [facility] Allergie 6-20 [facility] No Known DA Active U [facility] Allergie 6-20 [facility] No Known DA Active U [facility] Drug 9-15 [facility]olera 00[facility] No Known DA Active U NONE [facility] 9-15 [facility] Medications This patient has no known medications. Procedures This patient has no known procedures. Encounters Start End Encounter Admission Attending Care Care Encounter Source Date/Time Date/Time Type Type Clinicians Facility Department ID 2020-06-24 Inpatient [facility] [id number] [facility] 2020-05-19 Inpatient [facility] [id number] [facility] 11:42[facility] 2019-07-30 Inpatient [facility] ER [id number] [facility] 21:08:00 [facility] 2022-06-11 2022-06-11 Emergency EM Schultz, [facility] ER [id number] [facility] 11:10:00 12:41:00 Ted [facility] 2021-02-09 2021-02-10 Emergency EM Peguero, [facility] ER [id number] [facility] 23:10:00 00:19:00 Kaelyn [facility] Results Test Description Test Time Test Comments Results Result Comments Source UA RFLX MICROSCOPIC CULTURE 2022-06-11 11:54:00 Test Item Value Reference Range Interpretation Comme nts UA COLOR (test code = COLU) YELLOW YELLOW UA APPEARANCE (test code = APPU) CLOUDY CLEAR UA GLUCOSE DIPSTICK (test code = DGLUU) NEGATIVE mg/dl NORMAL UA BILIRUBIN DIPSTICK (test code = BILU) NEGATIVE mg/dl NEGATIVE UA KETONE DIPSTICK (test code = KETU) TRACE mg/dl NEGATIVE A UA SPECIFIC GRAVITY (test code = SGU) 1.020 1.001-1.035 N UA BLOOD DIPSTICK (test code = NISSA) TRACE /UL NEGATIVE A UA PH DIPSTICK (test code = EMILY) 7.0 4.6-8.0 UA PROTEIN DIPSTICK (test code = PROU) NEGATIVE mg/dl NEGATIVE UA UROBILINIOGEN DIPSTICK (test code = URO) 1.0 mg/dl NORMAL UA NITRITE DIPSTICK (test code = DEMETRIUS) NEGATIVE NEGATIVE UA LEUKOCYTE ESTERASE DIPSTICK (test code = LEUU) NEGATIVE /UL NEGA TIVE UA COMMENT (test code = COMU) CLN CATCH UA WBC (test code = WBCUR) #/hpf 0-5 UA EPITHELIAL CELLS (test code = EPIU) 2+ /hpf NEG,FEW A UA AMORPHOUS SEDIMENT (test code = AMORU) 2+ /hpf NEG,FEW A Indication for culture: Suprapubic PainURINE SOURCE: CLEAN CATCH URINEUR HCG [id number] 11:54:00 Test Item Value Reference Range Interpretation Comments UR HCG QUAL (test code = HCGQLU) NEGATIVE NEGATIVE Indication for culture: Suprapubic PainURINE SOURCE: CLEAN CATCH URINE COMPREHENSIVE METABOLIC [id number] 11:49:00 Test Item Value Reference Range Interpretation Comments SODIUM (test code = 139 mmol/L 136-145 N NA) POTASSIUM (test code 3.6 mmol/L 3.5-5.1 N = K) CHLORIDE (test code 101 mmol/L 98-107 N = CL) CARBON DIOXIDE (test 24 mmol/L 21-32 N code = CO2) GLUCOSE (test code = 113 mg/dL 70-100 H GLU) BLOOD UREA NITROGEN 5 mg/dL 7-18 L (test code = BUN) GLOMERULAR > 60.00 See_Comment The Glomerular FILTRATION RATE Filtration R ate is a (test code = GFR) calculated parameterbased on serum Creatinine, pat ient age and sex. GFR va luesless than 60 mL/min/ 1.73 square meters a re indicative ofCh ronic Kidney Disease. Values less than 15 mL/min/1.73squa re meters indicate Kidney failure. The calculation for GFR is based on the CK D-EPI (2020) calculat ion. This formulais race indifferent and is the recommended for allison for GFRby the Natio nal Kidney Foundati on for Adults.The GFR will not calculate if th e sex is unknown or if thepatient's ag e is <18 years. [Automat ed message] The sy stem which generated this result transmit ashley reference range : >=60. The reference r jhonny was not used to int erpret this result as normal/abnormal . CREATININE (test 0.76 mg/dl 0.55-1.02 N code = CREAT) TOTAL PROTEIN (test 7.7 g/dl 6.4-8.2 N code = PROT) ALBUMIN (test code = 4.1 g/dl 3.4-5.0 N ALB) CALCIUM (test code = 9.0 mg/dL 8.5-10.1 N CA) BILIRUBIN TOTAL 1.2 mg/dL 0.2-1.0 H (test code = BILT) SGOT/AST (test code 49 U/L 15-37 H = AST) SGPT/ALT (test code 78 U/L 12-78 N = ALT) ALKALINE PHOSPHATASE 105 U/L 45-117 N TOTAL (test code = ALKP) [id number] 11:49:00 Test Item Value Reference Range Interpretation Comments AMYLASE (test code = PARAM) 73 IU/L 25-115 N [id number] 11:49:00 Test Item Value Reference Range Interpretation Comments LIPASE (test code = LIP) 134 U/L 73-393 N CBC W/AUTO [id number] 11:33:00 Test Item Value Reference Range Interpretation Comments WHITE BLOOD CELL (test code = 4.8 X10(3) 4.5-11.0 N WBC) RED BLOOD CELL (test code = 4.59 X10(6) 4.2-5.4 N RBC) HEMOGLOBIN (test code = HGB) 13.1 g/dL 12.5-16.0 N HEMATOCRIT (test code = HCT) 39.9 % 37.0-47.0 N MEAN CELL VOLUME (test code = 86.9 fL 78-100 N MCV) MEAN CELL HGB (test code = MCH) 28.5 pg 26.0-34.0 N MEAN CELL HGB CONCETRATION 32.8 g/dl 30.0-37.0 N (test code = MCHC) RED CELL DISTRIBUTION WIDTH 14.2 % 11.5-14.5 N (test code = RDW) PLATELET COUNT (test code = 225 X10(3) 150-400 N PLT) MEAN PLATELET VOLUME (test code 12.3 fl 8.7-11.4 H = MPV) NEUTROPHIL % (test code = NT%) 66.3 % 36.0-66.0 H IMMATURE GRANULOCYTE % (test 0.2 % 0.0-2.0 N code = IG%) LYMPHOCYTE % (test code = LY%) 22.9 % 16-50 N MONOCYTE % (test code = MO%) 9.8 % 0.0-13.0 N EOSINOPHIL % (test code = EO%) 0.2 % 0.0-4.5 N BASOPHIL % (test code = BA%) 0.6 % 0.0-1.5 N NEUTROPHIL # (test code = NT#) 3.2 X10(3) 1.7-7.7 N IMMATURE GRANULOCYTE # (test 0.01 X10(3)uL 0.00-0.03 N code = IG#) LYMPHOCYTE # (test code = LY#) 1.1 X10(3) 1.0-4.8 N MONOCYTE # (test code = MO#) 0.5 X10(3) 0.0-0.89 N EOSINOPHIL # (test code = EO#) 0.0 X10(3) 0.0-0.6 N BASOPHIL # (test code = BA#) 0.0 X10(3) 0.0-0.2 N RBC MORPHOLOGY REQUIRED (test NO NORMAL code = RBCM) COMPREHENSIVE METABOLIC [id number] 16:11:00 Test Item Value Reference Range Interpretation Comments SODIUM (test code = 138 mmol/L 136-145 N NA) POTASSIUM (test code = 3.7 mmol/L 3.5-5.1 N K) CHLORIDE (test code = 100 mmol/L 98-107 N CL) CARBON DIOXIDE (test 27 mmol/L 21-32 N code = CO2) GLUCOSE (test code = 69 mg/dL 70-100 L GLU) BLOOD UREA NITROGEN 9 mg/dL 7-18 N (test code = BUN) GLOMERULAR FILTRATION > 60.00 See_Comment Report ing units: RATE (test code = GFR) mL/mi n/1.73m\S\2 (Modified MDRD formula)REFEREN CE RANGE: > or = 6 0 ml/min/1.73M2IF PATIENT IS -JAYSON N, MULTIPLY REPORT ED RESULT BY1.21. [Automated mess age] The system [employer] generated this result transmitted ref erence range: >=60. Th e reference range was not used to int erpret this result as normal/abnormal . CREATININE (test code 0.76 mg/dl 0.55-1.02 N = CREAT) TOTAL PROTEIN (test 7.8 g/dl 6.4-8.2 N code = PROT) ALBUMIN (test code = 3.7 g/dl 3.4-5.0 N ALB) CALCIUM (test code = 9.3 mg/dL 8.5-10.1 N CA) BILIRUBIN TOTAL (test 0.8 mg/dL 0.2-1.0 N code = BILT) SGOT/AST (test code = 38 U/L 15-37 H AST) SGPT/ALT (test code = 54 U/L 12-78 N ALT) ALKALINE PHOSPHATASE 139 U/L 45-117 H TOTAL (test code = ALKP) [id number] 16:11:00 Test Item Value Reference Range Interpretation Comments LIPASE (test code = LIP) 108 U/L 73-393 N URINALYSIS W REFLEX [id number] 16:05:00 Test Item Value Reference Range Interpretation [...] UA MICRO code = UAMICRO) UR HCG [id number] 16:05:00 Test Item Value Reference Range Interpretation Comments UR HCG QUAL (test code = HCGQLU) NEGATIVE NEGATIVE URINALYSIS W REFLEX [id number] 16:05:00 Test Item Value Reference Range Interpretation [...] DO UA MICRO code = UAMICRO) UA [id number] 16:05:00 Test Item Value Reference Range Interpretation Comments UA WBC (test code = WBCU) 0-2 #/hpf 0-5 UA RBC (test code = RBCU) 0-2 #/hpf 0-5 UA EPITHELIAL CELLS (test code = 2+ /hpf NEG,FEW A EPIU) UA BACTERIA (test code = BACU) FEW /hpf NEGATIVE A UA AMORPHOUS SEDIMENT (test code = FEW /hpf NEG,FEW AMORU) UR HCG [id number] 16:05:00 Test Item Value Reference Range Interpretation Comments UR HCG QUAL (test code = HCGQLU) NEGATIVE NEGATIVE URINALYSIS W REFLEX [id number] 16:05:00 Test Item Value Reference Range Interpretation [...] UA MICRO code = UAMICRO) UR HCG [id number] 16:05:00 Test Item Value Reference Range Interpretation Comments UR HCG QUAL (test code = HCGQLU) NEGATIVE NEGATIVE DRUGS OF ABUSE [id number] 16:01:00 Test Item Value Reference Range Interpretation Comments UR COCAINE (test code NEGATIVE ng/ml NEGATIVE = COCAU) UR CANNABINOIDS (test POSITIVE ng/ml NEGATIVE A DALY UE EXCEEDS code = CANU) CRITICAL LEVEL. CRITICAL VALUE CALLEDTO AND CRITICAL VALUE READ BACK BY HUBER DOWNING RN 1 458 06/24/20. Chas Dixon POSITIVE URINE DRUG SCREEN [...] = WAS TESTE D AT THE [facility]) LISTED CUTOFFS DRUG CLASS INIT IAL TEST LEVEL AMPHETAMINES 1 000 NG/MLBARBITURAT ES 200 NG/MLBENZODIAZE PIN ES 200 NG/MLCOCAINE METABOLITE 300 NG/MLMARIJUANA METABOLITE 50 NG/MLOPIATES 30 0 NG/MLPHENCYCLID INE 25 NG/ML URINALYSIS W REFLEX [id number] 15:58:00 Test Item Value Reference Range Interpretation [...] NEEDED? (test code = UAMICRO) UR HCG [id number] 15:58:00 Test Item Value Reference Range Interpretation Comments UR HCG QUAL (test code = HCGQLU) NEGATIVE NEGATIVE CBC W/AUTO [id number] 15:52:00 Test Item Value Reference Range Interpretation [...] NORMAL code = RBCM) URINALYSIS W REFLEX [id number] 13:00:00 Test Item Value Reference Range Interpretation [...] MICRO code = UAMICRO) UA ICTOTEST FOR [id number] 13:00:00 Test Item Value Reference Range Interpretation Comments UA ICTOTEST FOR BILIRUBIN (test code POSITIVE NEGATIVE A = ICTOU) UA [id number] 13:00:00 Test Item Value Reference Range Interpretation Comments UA WBC (test code = WBCU) 0-2 #/hpf 0-5 UA RBC (test code = RBCU) 3-5 #/hpf 0-5 UA EPITHELIAL CELLS (test code = FEW /hpf NEG,FEW EPIU) UA BACTERIA (test code = BACU) FEW /hpf NEGATIVE A UA MUCUS (test code = MUCU) 1+ /hpf NEG,FEW A UR HCG [id number] 13:00:00 Test Item Value Reference Range Interpretation Comments UR HCG QUAL (test code = HCGQLU) NEGATIVE NEGATIVE DRUGS OF ABUSE [id number] 12:57:00 Test Item Value Reference Range Interpretation [...] = WAS TESTE D AT THE [facility]) LISTED CUTOFFS DRUG CLASS INIT IAL TEST LEVEL AMPHETAMINES 10 00 NG/MLBARBITURAT ES 200 NG/MLBENZODIAZE PIN ES 200 NG/MLCOCAINE METABOLITE 300 NG/MLMARIJUANA METABOLITE 50 NG/MLOPIATES 30 0 NG/MLPHENCYCLID INE 25 NG/ML URINALYSIS W REFLEX [id number] 12:56:00 Test Item Value Reference Range Interpretation [...] MICRO code = UAMICRO) UA ICTOTEST FOR [id number] 12:56:00 Test Item Value Reference Range Interpretation Comments UA ICTOTEST FOR BILIRUBIN (test code POSITIVE NEGATIVE A = ICTOU) UR HCG [id number] 12:56:00 Test Item Value Reference Range Interpretation Comments UR HCG QUAL (test code = HCGQLU) NEGATIVE NEGATIVE URINALYSIS W REFLEX [id number] 12:53:00 Test Item Value Reference Range Interpretation [...] UA MICRO code = UAMICRO) UR HCG [id number] 12:53:00 Test Item Value Reference Range Interpretation Comments UR HCG QUAL (test code = HCGQLU) NEGATIVE NEGATIVE URINALYSIS W REFLEX [id number] 12:53:00 Test Item Value Reference Range Interpretation [...] UA MICRO code = UAMICRO) UR HCG [id number] 12:53:00 Test Item Value Reference Range Interpretation Comments UR HCG QUAL (test code = HCGQLU) NEGATIVE NEGATIVE - XR ABDOMEN [id number] 12:16:00 [facility] 1990 Sex: F FAX: Sawyer Centeno II [place]: St: PRE Name: BREANNA QUEEN Oj FSED : 1990 Age/S: 30/F [address] Unit #: [id number] Loc: [place] [address] Phys: Sawyer Centeno II, MD Acct: [id number] Dis Date: Status: PRE ER PHONE #: Exam Date: 05/19/2020 1212 FAX #: Reason: abdominal pain EXAMS: CPT CODE: [id number] XR ABDOMEN 2V 04781 - XR ABDOMEN 2V PROVIDED REASON FOR [...] RT Bekah (R) CT Trnscrd Date/Time/By: 05/19/2020 (6004) : By: [email or web address] Orig Print D/T: S: 05/19/2020 (0001) PAGE 1 Signed ReportBASIC METABOLIC PANEL 2020-05-19 [...] RESULT BY1.21. [Automated mess age] The system [employer] generated this result transmitted ref erence range: >=60. Th e reference range was not used to int erpret this result as normal/abnormal . CREATININE (test code 0.64 mg/dl 0.55-1.02 N = CREAT) CALCIUM (test code = 9.8 mg/dL 8.5-10.1 N CA) LIVER [id number] 12:08:00 Test Item Value Reference Range Interpretation [...] 119 U/L 45-117 H code = ALKP) [id number] 12:08:00 Test Item Value Reference Range Interpretation Comments LIPASE (test code = LIP) 67 U/L 73-393 L CBC W/AUTO [id number] 11:43:00 Test Item Value Reference Range Interpretation [...] NORMAL code = RBCM) URINALYSIS W REFLEX [id number] 22:06:00 Test Item Value Reference Range Interpretation [...] MUCU) 2+ /hpf NEG,FEW A BASIC METABOLIC [id number] 21:54:00 Test Item Value Reference Range Interpretation [...] = 9.3 mg/dL 8.5-10.1 N CA) LIVER [id number] 21:54:00 Test Item Value Reference Range Interpretation [...] 69 U/L 50-136 N code = ALKP) [id number] 21:54:00 Test Item Value Reference Range Interpretation Comments LIPASE (test code = LIP) 63 U/L 73-393 L BASIC METABOLIC [id number] 21:53:00 Test Item Value Reference Range Interpretation [...] = 9.3 mg/dL 8.5-10.1 N CA) LIVER [id number] 21:53:00 Test Item Value Reference Range Interpretation [...] TOTAL (test U/L 50-136 code = ALKP) [id number] 21:53:00 Test Item Value Reference Range Interpretation Comments LIPASE (test code = LIP) 63 U/L 73-393 L BASIC METABOLIC [id number] 21:52:00 Test Item Value Reference Range Interpretation [...] = 9.3 mg/dL 8.5-10.1 N CA) LIVER [id number] 21:52:00 Test Item Value Reference Range Interpretation [...] TOTAL (test U/L 50-136 code = ALKP) [id number] 21:52:00 Test Item Value Reference Range Interpretation Comments LIPASE (test code = LIP) 63 U/L 73-393 L BASIC METABOLIC [id number] 21:51:00 Test Item Value Reference Range Interpretation [...] = 9.3 mg/dL 8.5-10.1 N CA) LIVER [id number] 21:51:00 Test Item Value Reference Range Interpretation [...] TOTAL (test U/L 50-136 code = ALKP) [id number] 21:51:00 Test Item Value Reference Range Interpretation Comments LIPASE (test code = LIP) 63 U/L 73-393 L BASIC METABOLIC [id number] 21:49:00 Test Item Value Reference Range Interpretation [...] = CA) 9.3 mg/dL 8.5-10.1 N LIVER [id number] 21:49:00 Test Item Value Reference Range Interpretation [...] TOTAL (test U/L 50-136 code = ALKP) [id number] 21:49:00 Test Item Value Reference Range Interpretation Comments LIPASE (test code = LIP) 63 U/L 73-393 L BASIC METABOLIC [id number] 21:48:00 Test Item Value Reference Range Interpretation [...] = CA) 9.3 mg/dL 8.5-10.1 N LIVER [id number] 21:48:00 Test Item Value Reference Range Interpretation Comments TOTAL PROTEIN (test code = PROT) g/dl 6.4-8.2 ALBUMIN (test code = ALB) g/dl 3.4-5.0 BILIRUBIN TOTAL (test code = BILT) mg/dl 0.2-1.0 BILIRUBIN DIRECT (test code = BILD) mg/dl 0.0-0.4 SGOT/AST (test code = AST) U/L 15-37 SGPT/ALT (test code = ALT) U/L 12-78 ALKALINE PHOSPHATASE TOTAL (test code U/L 50-136 = ALKP) [id number] 21:48:00 Test Item Value Reference Range Interpretation Comments LIPASE (test code = LIP) U/L 73-393 BASIC METABOLIC [id number] 21:46:00 Test Item Value Reference Range Interpretation [...] (test code = CA) mg/dL 8.5-10.1 LIVER [id number] 21:46:00 Test Item Value Reference Range Interpretation Comments TOTAL PROTEIN (test code = PROT) g/dl 6.4-8.2 ALBUMIN (test code = ALB) g/dl 3.4-5.0 BILIRUBIN TOTAL (test code = BILT) mg/dl 0.2-1.0 BILIRUBIN DIRECT (test code = BILD) mg/dl 0.0-0.4 SGOT/AST (test code = AST) U/L 15-37 SGPT/ALT (test code = ALT) U/L 12-78 ALKALINE PHOSPHATASE TOTAL (test code U/L 50-136 = ALKP) [id number] 21:46:00 Test Item Value Reference Range Interpretation Comments LIPASE (test code = LIP) U/L 73-393 CBC W/AUTO [id number] 21:43:00 Test Item Value Reference Range Interpretation [...] code = 0.00 K/mm3 0.0-0.1 N NRBC#) Notes Date/Time Note Provider Source 2022-06-11 11:33:00-00:00 [facility] EMERGENCY PROVIDER REPORT REPORT#:[id number] REPORT STATUS: Signed DATE:06/11/22 TIME: 1133 PATIENT: BREANNA JIMENEZ UNIT #: [id number] ROOM/BED: AGE: 32 SEX: F PCP PHYS: Undefined Provider SERVICE AUTHOR: Ted Schultz MD * ALL edits or amendments must be made on the [employer]/computer document * HPI-Nausea/Vomit/Diarrhea General Confirmed Patient Yes Initial Greet Date/Time 06/11/22 1110 Presentation Chief Complaint Nausea, Vomiting, Diarrhea Hx Obtained From Patient Onset Occurred Today Context Similar Sx Previous Yes Free Text HPI Notes Free Text HPI Notes Patient reports ever since having a cholecystect omar she has experienced recurrent episodes of N/V/D. Current symptoms started sudden onset this morning. Review of Systems ROS Statements All systems rev neg except as marked. Past Medical History - Adult Stated Complaint ABDOMINAL PAIN Allergies Coded Allergies: haloperidol (Severe, HIVES 06/11/22) scopolamine (Severe, HIVES 06/11/22) Home Medications Active Scripts IBUPROFEN (MOTRIN) 600 MG PO QID PRN PRN PAIN IBUPROFEN (MOTRIN) 600 MG PO QID PRN PRN PAIN # 30 TABS Prov: 02/10/21 guaiFENesin ER (MUCINEX) 1,200 MG PO Q12H guaiFENesin ER (MUCINEX) 1,200 MG PO Q12H #30 T ABS Prov: 02/10/21 Reported Medications AMOXICILLIN/CLAV K (AUGMENTIN 875/125 MG) 1 TAB PO Q12H PANTOPRAZOLE DR (PROTONIX) 20 MG PO DAILY [ASHKAN] Calculated Suicide Risk (nurs) No risk Review of Nursing Notes Rev avail, and agree Additional Medical History IBS gastroparesis anxiety bipolar d/o Past Surgical History: Reports: Cholecystectomy (2015), Breast biopsy/p rocedure (2008). Additional Surgical History bilateral ureter reattachment 1997 LEE 2017 Botox injection to pylorus Alcohol Use Alcohol use (occasional) Drug Use Marijuana Smoking status for patients 13 years old or olde r: Never Smoker Physical Exam Vital Signs Vital Signs First Documented: Result Date Time Pulse Ox 99 05 1113 B/P 156/96 / 1113 B/P Mean 116 / 1113 O2 Delivery Room air 06/11 1113 Pulse 70 05/ 1113 Resp 18 / 1113 Temp 36.3 / 1206 Last Documented: Result Date Time Pulse Ox 100 05 1206 B/P 124/78 05/ 1206 B/P Mean 93 05/ 1206 Temp 36.3 / 1206 Pulse 77 05/ 1206 Resp 16 05/ 1206 O2 Delivery Room air 06/11 1113 Review of Vital Signs Reviewed Focused PE General/Const General/Const Awake, Alert Distress/Hydration Distress mild. Eyes Eyes PERRL, EOMI, No scleral icterus Resp/Chest Respiratory/Chest Breath sounds NL, Breath soun ds = bilat, No respiratory distress Cardiovascular Cardiovascular Regular rhythm, Heart sounds NL Heart Rate/Rhythm Tachycardia. Abdomen/GI Abdomen/GI Soft, BS normoactive, No distention Tenderness/Guarding/Rebound Tender diffuse. Skin Skin Color NL, No rash, Dry Interpretation Diagnostics Lab Results Interpretation Results Laboratory Tests 06/11/22 1118: [Embedded Image Not Available] Laboratory Tests: 06/11 06/11 1132 1118 Chemistry Sodium (136 - 145 mmol/L) 139 Potassium (3.5 - 5.1 mmol/L) 3.6 Chloride (98 - 107 mmol/L) 101 Carbon Dioxide (21 - 32 mmol/L) 24 BUN (7 - 18 mg/dL) 5 L Creatinine (0.55 - 1.02 mg/dl) 0.76 Estimated GFR (MDRD) (>=60) > 60.00 Glucose (70 - 100 mg/dL) 113 H Calcium (8.5 - 10.1 mg/dL) 9.0 Total Bilirubin (0.2 - 1.0 mg/dL) 1.2 H AST (15 - 37 U/L) 49 H ALT (12 - 78 U/L) 78 Alkaline Phosphatase (45 - 117 U/L) 105 Total Protein (6.4 - 8.2 g/dl) 7.7 Albumin (3.4 - 5.0 g/dl) 4.1 Amylase (25 - 115 IU/L) 73 Lipase (73 - 393 U/L) 134 Hematology WBC (4.5 - 11.0 X10(3)) 4.8 RBC (4.2 - 5.4 X10(6)) 4.59 Hgb (12.5 - 16.0 g/dL) 13.1 Hct (37.0 - 47.0 %) 39.9 MCV (78 - 100 fL) 86.9 MCH (26.0 - 34.0 pg) 28.5 MCHC (30.0 - 37.0 g/dl) 32.8 RDW (11.5 - 14.5 %) 14.2 Plt Count (150 - 400 X10(3)) 225 MPV (8.7 - 11.4 fl) 12.3 H Neut % (Auto) (36.0 - 66.0 %) 66.3 H Lymph % (Auto) (16 - 50 %) 22.9 Davison % (Auto) (0.0 - 13.0 %) 9.8 Eos % (Auto) (0.0 - 4.5 %) 0.2 Baso % (Auto) (0.0 - 1.5 %) 0.6 Immature Gran # (Auto) (0.00 - 0.03 X10(3)uL) 0 .01 Absolute Neuts (auto) (1.7 - 7.7 X10(3)) 3.2 Absolute Lymphs (auto) (1.0 - 4.8 X10(3)) 1.1 Absolute Monos (auto) (0.0 - 0.89 X10(3)) 0.5 Absolute Eos (auto) (0.0 - 0.6 X10(3)) 0.0 Absolute Basos (auto) (0.0 - 0.2 X10(3)) 0.0 Immature Gran % (0.0 - 2.0 %) 0.2 RBC Morphology (NORMAL) NO Toxicology Ketones (NEGATIVE mg/dl) TRACE H Urines Urine Color (YELLOW) YELLOW Urine Appearance (CLEAR) CLOUDY Urine pH (4.6 - 8.0) 7.0 Ur Specific [place] (1.001 - 1.035) 1.020 Urine Protein (NEGATIVE mg/dl) NEGATIVE Urine Glucose (UA) (NORMAL mg/dl) NEGATIVE Urine Blood (NEGATIVE /UL) TRACE H Urine Nitrite (NEGATIVE) NEGATIVE Urine Bilirubin (NEGATIVE mg/dl) NEGATIVE Urine Urobilinogen (NORMAL mg/dl) 1.0 Ur Leukocyte Esterase (NEGATIVE /UL) NEGATIVE Ur Epithelial Cells (NEG,FEW /hpf) 2+ H Amorphous Sediment (NEG,FEW /hpf) 2+ H Urine HCG, Qual (NEGATIVE) NEGATIVE Urine Comment CLN CATCH Re-Evaluation MDM Free Text MDM Notes Free Text MDM Notes Nursing staff informed me that patient had been to another free standing ED yesterday. After discussion patient states was at [facility] yesterday and was prescribed compazine/reglan after blood work and CT scan were unremarkable. Re-Evaluation/Progress #1 Time of Re-Eval 1157 Re-Eval Status Improved ED Course Medication(s) Ordered Medication(s) Ordered: Central Nervous System Agents Sig/Ayanna Start time Last Medication Dose Route Stop Time Status Admin Morphine Sulfate 4 MG X1ED STA 06/11 1129 DCr 0 /03 IV 06/11 1130 1132 Electrolytic, Caloric, And Elvia Sig/Ayanna Start time Last Medication Dose Route Stop Time Status Admin Sodium Chloride 1,000 ML X1ED STA 06/11 1141 DC 05/ IV 05 1240 1155 Sodium Chloride 1,000 ML X1ED STA 06/11 1118 DC 05/03 IV 05/ 1217 1123 Gastrointestinal Drugs Sig/Ayanna Start time Last Medication Dose Route Stop Time Status Admin Prochlorperazine 5 MG X1ED STA 06/11 1118 DC 05 / Edisylate IV 05 1119 1124 Patient Discharge Departure Vital Signs/Condition Vital Signs First Documented: Result Date Time Pulse Ox 99 06/11 1113 B/P 156/96 / 1113 B/P Mean 116 06/11 1113 O2 Delivery Room air 06/11 1113 Pulse 70 05 1113 Resp 18 06/11 1113 Temp 36.3 06/11 1206 Last Documented: Result Date Time Pulse Ox 100 06/11 1206 B/P 124/78 / 1206 B/P Mean 93 06/11 1206 Temp 36.3 06/11 1206 Pulse 77 05/ 1206 Resp 16 06/11 1206 O2 Delivery Room air 06/11 1113 All vital signs available at the time of this en try have been reviewed. Clinical Impression Clinical Impression Primary Impression: Gastroenteritis Disposition Decision Discharge )( Discharged to Home Yes )( Time 1200 )( Date 06/11/22 Discharge/Care Plan Counseled Regarding Diagnosis, Lab results, Need for follow-up Patient Instructions ED FOOD POIS or G-ENTERITIS [id number] Additional Instructions Schedule a follow-up appointment with your [facility] Care Provider Discharge Note I have spoken with the patie nt and/or caregivers. I have explained the patient's condition, diagnoses and ryder atment plan based on the information available to me at this time. I have answered the patient's and/ or caregiver's questions and addressed any concerns. The patient and/or careg bill have as good an understanding of the patient 's diagnosis, condition and treatment plan as can be expected at this point. The vital signs have bee n stable. The patient's condition is stable and appr opriate for discharge from the emergency department. The patient will pursue further outpatient evalu ation with the primary care physician or other designated or consulting phys ician as outlined in the discharge instructions. The patient and/or caregivers are agreeable to this plan of care and follow-up instructions have been exp lained in detail. The patient and/or caregivers have received these instructio ns in written format and have expressed an understanding of the discharge inst ructions. The patient and/or caregivers are aware that any significant change in condition or worsening of symptoms should prompt an immediate return to [facility] or the closest emergency department or a call to 911. Electronically Signed by Ted Schultz MD on at 1245 RPT #:[id number] END OF REPORT 2021-02-09 23:43:00-00:00 [facility]) EMERGENCY PROVIDER REPORT REPORT#:[id number] REPORT STATUS: Signed DATE:02/09/21 TIME: 2343 PATIENT: BREANNA JIMENEZ UNIT #: [id number] ROOM/BED: AGE: 30 SEX: F PCP PHYS: No Primary or Family Ph ysician SERVICE AUTHOR: Kaelyn Peguero MD * ALL edits or amendments must be made on the [employer] document * [id number] Illness General Confirmed Patient Yes Patient Type New patient Initial Greet Date/Time 02/09/21 2312 Presentation Chief Complaint Body aches, Chills, Cough Free Text HPI Notes Free Text HPI Notes 30-year-old female comes [facility] room complaining of cough, body aches, chills , that began 2 days ago. Patient has been travel ing in [facility] and apparently although she has been driving in her own car she is feeling sick. Patient is worried about COVID-19. There is no f ever chills chest pain or shortness of breath. She has not taken anything other than NyQuil and acetaminophen. Patient denies nausea and vomitin g. Review of Systems ROS Statements All systems rev neg except as marked. Focused Review of Systems Constitutional Reports: Chills. Denies: Fever, Lethargy. Eyes Denies: Eye pain bilat, Redness bilat, Visual lo ss bilat. Ears/Nose/Throat Denies: Earache bilat, Nasal congestion, Sore th roat. Respiratory Reports: Cough, non-producti ve, Shortness of breath. Denies: Cough, productive. Cardiovascular Denies: Chest pain, Syncope. GI Denies: Abdominal pain, Diarrhea, Nausea, Vomiti ng. Musculoskeletal Denies: Back pain, Extremity pain. Hematologic Denies: Bleeding, Bruising. Skin Denies: Diaphoresis, Rash. Neurologic Denies: Change LOC, Dizziness, Focal weakness, H eadache, Numbness, Slurred speech. Past Medical History - Adult Stated Complaint FLU LIKE SYMPTOMS Allergies Coded Allergies: No Known Allergies (02/09/21) Home Medications Reported Medications AMOXICILLIN/CLAV K (AUGMENTIN 875/125 MG) 1 TAB PO Q12H PANTOPRAZOLE DR (PROTONIX) 20 MG PO DAILY [ASHKAN] Calculated Suicide Risk (nurs) No risk Additional Medical History IBS gastroparesis anxiety bipolar d/o Past Surgical History: Reports: Cholecystectomy (2015), Breast biopsy/p rocedure (2008). Additional Surgical History bilateral ureter reattachment 1997 LEE 2017 Botox injection to pylorus Alcohol Use Alcohol use (occasional) Drug Use Marijuana Smoking status: Smoking status for patients 13 years old or old er: Never Smoker Physical Exam Vital Signs Vital Signs First Documented: Result Date Time Pulse Ox 100 02/09 2310 B/P 110/74 02/09 2310 B/P Mean 86 02/09 2310 O2 Delivery Room air 02/09 2310 Temp 37.4 02/09 2310 Pulse 78 02/09 2310 Resp 18 02/09 2310 Last Documented: Result Date Time Pulse Ox 100 02/09 2310 B/P 110/74 02/09 2310 B/P Mean 86 02/09 2310 O2 Delivery Room air 02/09 2310 Temp 37.4 02/09 2310 Pulse 78 02/09 2310 Resp 18 02/09 2310 Review of Vital Signs Reviewed Focused PE General/Const General/Const Awake, Alert, Well appearing, Not toxic appearing Eyes Eyes PERRL, No photophobia, Conjunctiva NL Ears/Nose/Throat Ears/Nose/Throat Airway patent, Mucous membrane s moist, Pharynx NL, Tympanic membs NL, Ext aud canal NL, Nose exam NL, No sin us tenderness MS Neck Neck Supple, No meningismus, Full range of motion, No adenopathy, No swelling , Non-tender, No masses Resp/Chest Respiratory/Chest Breath sounds NL, Breath soun ds = bilat, No respiratory distress, No rales, No rhonchi, No wheezing, No retractions Cardiovascular Cardiovascular Heart rate NL, Regular rhythm, H eart sounds NL, No murmurs, Peripheral circulation NL Abdomen/GI Abdomen/GI Soft, Non-tender, No guarding, No re bound Lymphatic Lymphatic No gross adenopathy Skin Skin Color NL, No rash, Warm, Dry, Turgor NL Neurologic Neurologic Oriented X3, Speech NL, No motor def icits, No sensory deficits Re-Evaluation MDM ED Course Medication(s) Ordered Medication(s) Ordered: Central Nervous System Agents Sig/Ayanna Start time Last Medication Dose Route Stop Time Status Admin Ketorolac 15 MG X1ED STA 02/09 2345 DC 02/10 Tromethamine IM 02/09 2346 0000 Hormones And Synthetic Substit Sig/Ayanna Start time Last Medication Dose Route Stop Time Status Admin Methylprednisolone 125 MG X1ED STA 02/09 2346 D C 02/09 Sodium Succinate IM 02/09 2347 2359 Patient Discharge Departure Vital Signs/Condition Vital Signs First Documented: Result Date Time Pulse Ox 100 02/09 231 B/P 110/74 02/09 2311 B/P Mean 86 02/09 231 O2 Delivery Room air 02/09 2310 Temp 37.4 02/09 231 Pulse 78 02/09 231 Resp 18 02/09 231 Last Documented: Result Date Time Pulse Ox 100 02/09 231 B/P 110/74 02/09 2311 B/P Mean 86 02/09 231 O2 Delivery Room air 02/09 2310 Temp 37.4 02/09 231 Pulse 78 02/09 231 Resp 18 02/09 231 All vital signs available at the time of this en try have been reviewed. Condition Stable Clinical Impression Clinical Impression Primary Impression: Flu syndrome Disposition Decision Discharge )( Discharged to Home Yes )( Time 0008 )( Date 02/10/21 Discharge/Care Plan Counseled Regarding Diagnosis, Lab resul ts, Need for follow-up, When to return to ED (Auto) Prescriptions Current Visit Scripts IBUPROFEN (MOTRIN) 600 MG PO QID PRN PRN PAIN IBUPROFEN (MOTRIN) 600 MG PO QID PRN PRN PAIN # 30 TABS guaiFENesin ER (MUCINEX) 1,200 MG PO Q12H guaiFENesin ER (MUCINEX) 1,200 MG PO Q12H #30 T ABS Patient Instructions Cold and Flu Season Boost Y our ... Additional Instructions Follow-up with primary care provider within 24 h ours Return to the emergency room for any acute hancock e, new symptoms or worsening symptoms. Electronically Signed by Kaelyn Peguero MD on 04/02 at 0652 RPT #:[id number] END OF REPORT 2020-06-24 15:35:00-00:00 [facility]) EMERGENCY PROVIDER REPORT REPORT#:[id number] REPORT STATUS: Signed DATE:06/24/20 TIME: 1534 PATIENT: BREANNA JIMENEZ UNIT #: [id number] ROOM/BED: AGE: 30 SEX: F PCP PHYS: No Primary or Family Ph ysician SERVICE AUTHOR: Maicol Coy MD * ALL edits or amendments must be made on the [employer] document * HPI-Abd Pain F Under 40 General Initial Greet Date/Time 06/24/[address] Winn in [place], [place] Presentation Chief Complaint Abdominal pain, Nausea, Vomiting moderate Hx Obtained From Patient Sudden in Onset? No Onset Occurred Yesterday Symptom Duration Waxes and wanes Progression since Onset Gradually worsening Context of Onset h/o gastroparesis vs cannabis i nduced Caused by No trauma by history Location Diffuse Quality Cramping Radiation No: Does not radiate. Migration/Movement None Severity: Onset Moderate Severity: Current Moderate Associated with Reports: Nausea, Vomiting. Associated Other Pt denies other symptoms Exacerbated by Nothing Relieved by Nothing Free Text HPI Notes Free Text HPI Notes 30y M2 LMP 19 May 2020 c/o acute o n chronic gastroparesis related to IBS and/or THC use for past 2d w ith nonbloody N/V x 6. She is visiting from [place]. Risk-Abd Pain F Under 40 )( Ectopic Risk factors reviewed, Hist ory of Infertility Coronary Artery Disease Risk factors reviewed, S moking Thoracic Aortic Dissection Risk factors reviewed , No risk factors Review of Systems ROS Statements All systems rev neg except as marked. Past Medical History - Adult Stated Complaint ABD PAIN Allergies Coded Allergies: No Known Allergies (06/24/20) Home Medications Reported Medications AMOXICILLIN/CLAV K (AUGMENTIN 875/125 MG) 1 TAB PO Q12H PANTOPRAZOLE DR (PROTONIX) 20 MG PO DAILY [ASHKAN] Additional Medical History IBS gastroparesis anxiety bipolar d/o Past Surgical History: Reports: Cholecystectomy (2015), Breast biopsy/p rocedure (2008). Additional Surgical History bilateral ureter reattachment 1997 LEEP 2018 Botox injection to pylorus Alcohol Use Alcohol use (occasional) Drug Use Marijuana Smoking status: Smoking status for patients 13 years old or old er: Current every day smoker Physical Exam Vital Signs Vital Signs First Documented: Result Date Time Pulse Ox 98 06/24 1531 B/P 133/87 06/24 1531 B/P Mean 102 06/24 1531 O2 Delivery Room air 06/24 1531 Temp 37.4 06/24 1531 Pulse 92 06/24 1531 Resp 18 06/24 1531 Last Documented: Result Date Time Pulse Ox 99 06/24 1635 B/P 128/85 06/24 1635 B/P Mean 99 06/24 1635 O2 Delivery Room air 06/24 1635 Temp 37.2 06/24 1635 Pulse 90 06/24 1635 Resp 17 06/24 1635 Review of Vital Signs Reviewed Basic Physical Exam Basic PE HEAD: Atraumatic/NC, EYES: PERRL, conj clear, ENT: Membranes moist, NECK: Supple, EXT: No gross abnormality, SKIN: No rashes, warm/dry, NEURO: alert oriented, NEURO: gross movement NL, PSYCH: NL t hought content Focused PE General/Const General/Const Awake, Alert, No acute di stress, Well appearing, Well developed , Well hydrated, Well nourished, Cooperative, No t toxic appearing Resp/Chest Respiratory/Chest Atraumatic, Breath sounds NL, Breath sounds = bilat, No respiratory distress, No rales, No rhonchi, No w heezing, No retractions, No stridor, No chest tenderness, No chest wall defo rmity, No crepitus Cardiovascular Cardiovascular Heart rate NL, Regular rhythm, H eart sounds NL, No gallop, No murmurs, No rubs, Cap refill not delayed, Periph eral circulation NL, Pulses = bilaterally, No gross BP differential Abdomen/GI Abdomen/GI Atraumatic, Soft, McBurney's non-ten iris, No guarding, No rebound, BS normoactive, No distention, No palpable mass, No pulsatile mass Tenderness/Guarding/Rebound Tender diffuse. MS Back Back Atraumatic, Inspection NL, Full range of m otion, Painless range of motion, Non-tender, No midline vertebral tend, N o paraspinal tenderness, No muscle spasm, No CVA tenderness Interpretation Diagnostics Lab Results Interpretation Results Laboratory Tests 06/24/20 1545: [Embedded Image Not Available] Laboratory Tests: 06/24 06/24 06/24 1545 1537 1537 Chemistry Sodium (136 - 145 mmol/L) 138 Potassium (3.5 - 5.1 mmol/L) 3.7 Chloride (98 - 107 mmol/L) 100 Carbon Dioxide (21 - 32 mmol/L) 27 BUN (7 - 18 mg/dL) 9 Creatinine (0.55 - 1.02 mg/dl) 0.76 Estimated GFR (MDRD) (>=60) > 60.00 Glucose (70 - 100 mg/dL) 69 L Calcium (8.5 - 10.1 mg/dL) 9.3 Total Bilirubin (0.2 - 1.0 mg/dL) 0.8 AST (15 - 37 U/L) 38 H ALT (12 - 78 U/L) 54 Alkaline Phosphatase (45 - 117 U/L) 139 H Total Protein (6.4 - 8.2 g/dl) 7.8 Albumin (3.4 - 5.0 g/dl) 3.7 Lipase (73 - 393 U/L) 108 Hematology WBC (4.5 - 11.0 X10(3)) 3.8 L RBC (4.2 - 5.4 X10(6)) 4.85 Hgb (12.5 - 16.0 g/dL) 13.7 Hct (37.0 - 47.0 %) 42.1 MCV (78 - 100 fL) 86.8 MCH (26.0 - 34.0 pg) 28.2 MCHC (30.0 - 37.0 g/dl) 32.5 RDW (11.5 - 14.5 %) 13.3 Plt Count (150 - 350 X10(3)) 241 MPV (8.7 - 11.4 fl) 11.7 H Neut % (Auto) (36.0 - 66.0 %) 36.7 Lymph % (Auto) (16 - 50 %) 48.2 Davison % (Auto) (0.0 - 13.0 %) 13.0 Eos % (Auto) (0.0 - 4.5 %) 0.8 Baso % (Auto) (0.0 - 1.5 %) 1.0 Immature Gran # (Auto) (0.00 - 0.03 X10(3)uL) 0 .01 Absolute Neuts (auto) (1.7 - 7.7 X10(3)) 1.4 L Absolute Lymphs (auto) (1.0 - 4.8 X10(3)) 1.9 Absolute Monos (auto) (0.0 - 0.89 X10(3)) 0.5 Absolute Eos (auto) (0.0 - 0.6 X10(3)) 0.0 Absolute Basos (auto) (0.0 - 0.2 X10(3)) 0.0 Immature Gran % (0.0 - 2.0 %) 0.3 RBC Morphology (NORMAL) NO Toxicology Urine Opiates Screen (NEGATIVE ng/ml) NEGATIVE Urine Barbiturates (NEGATIVE ng/ml) NEGATIVE Ur Phencyclidine Scrn (NEGATIVE ng/ml) NEGATIVE Ur Amphetamine Screen (NEGATIVE ng/dl) NEGATIVE U Benzodiazepines Scrn (NEGATIVE ng/ml) NEGATI VE Urine Cocaine Screen (NEGATIVE ng/ml) NEGATIVE U Cannabinoids Screen (NEGATIVE ng/ml) POSITIVE H Ketones (NEGATIVE mg/dl) NEGATIVE Urines Urine Color (YELLOW) YELLOW Urine Appearance (CLEAR) CLEAR Urine pH (4.6 - 8.0) 7.0 Ur Specific [place] (1.001 - 1.035) 1.020 Urine Protein (NEGATIVE mg/dl) NEGATIVE Urine Glucose (UA) (NORMAL mg/dl) NEGATIVE Urine Blood (NEGATIVE /UL) SMALL Urine Nitrite (NEGATIVE) NEGATIVE Urine Bilirubin (NEGATIVE mg/dl) NEGATIVE Urine Urobilinogen (NORMAL mg/dl) 0.2 Ur Leukocyte Esterase (NEGATIVE /UL) NEGATIVE Urine RBC (0 - 5 #/hpf) 0-2 Urine WBC (0 - 5 #/hpf) 0-2 Ur Epithelial Cells (NEG,FEW /hpf) 2+ H Amorphous Sediment (NEG,FEW /hpf) FEW Urine Bacteria (NEGATIVE /hpf) FEW H Urine HCG, Qual (NEGATIVE) NEGATIVE Urine Comment CLN CATCH Lab Statement Laboratory studies reviewed and considered in [facility] medical decision-making. Re-Evaluation MDM )( Re-Evaluation/Progress #1 Text/Dict Note Pt states her episode is res olved and is happy in room with her . Her HR is 80's, so she d/n have 2 SIRS criteria. Time of Re-Eval 1648 )( Re-Eval Status Improved, Resolved Abd Pain MDM Note F < 40 The patient is resting comfortably and feels bet ter, is alert and in no distress. The repeat examination is unremarkable and benign; in particular, there is no discomfort at McBurney's point. The history, exam, diagnostic testing, and current condition do not suggest ac [place] appendicitis, bowel obstruction, tubovarian abscess, ectopic pregnan cy, ovarian torsion, acute cholecystitis, bowel perforation, major gastroin testinal bleeding, severe diverticulitis, sepsis, or other significant pat hology to warrant further testing, continued ED treatment, admission, or s urgical evaluation at this point. The vital signs have been stable. The pat ient does not have uncontrollable pain, intractable vomiting, or ot her significant symptoms. The patient's condition is stable and appropriate fo r discharge. The patient will pursue further outpatient evaluation with the [facility] care physician or other designated or consulting physician as in dicated in the discharge instructions. TAD MDM Note There is no historical, physical exam, laborator y or imaging data that would suggest a need to consider or further ev aluate the patient for thoracic aortic dissection at this time. I am no longer considering thoracic aortic dissection in the differential diagnosis. The timing of the onset of pain and the pain radiation pattern are not co nsistent with dissection. There has been no movement of pain from the chest to th e back or to the abdomen, which would be consistent with a dissection process. The analysis of risks that would predispose to dissection does not indicate a need to further pursue the diagnosis. The patient 's vital signs have been stable, there i s no apparent aortic murmur, and there is either 1) no gross radial pulse diffe rential and/or 2) no significant blood pressure differential between the right and left arms. Tissue Perfusion Reassessment Patient tissue perfusion reassessment completed. ED Course Medication(s) Ordered Medication(s) Ordered: Electrolytic, Caloric, And Elvia Sig/Ayanna Start time Last Medication Dose Route Stop Time Status Admin Sodium Chloride 100 ML .STK-MED ONE 06/24 1547 DC 06/24 IV 1552 Lactated Ringer's 1,000 ML BOLUS ONCE ONE 06/24 1545 DC 06/24 IV 06/24 1644 1551 Gastrointestinal Drugs Sig/Ayanna Start time Last Medication Dose Route Stop Time Status Admin Metoclopramide HCl 10 MG X1ED STA 06/24 1535 DC 06/24 IV 06/24 1536 1552 Differential Diagnosis Ruled Out Sepsis This is not sepsis. Patient Discharge Departure Vital Signs/Condition Vital Signs First Documented: Result Date Time Pulse Ox 98 06/24 1531 B/P 133/87 06/24 1531 B/P Mean 102 06/24 1531 O2 Delivery Room air 06/24 1531 Temp 37.4 06/24 1531 Pulse 92 06/24 1531 Resp 18 06/24 1531 Last Documented: Result Date Time Pulse Ox 99 06/24 1635 B/P 128/85 / 1635 B/P Mean 99 06/24 1635 O2 Delivery Room air 06/24 1635 Temp 37.2 06/24 1635 Pulse 90 06/24 1635 Resp 17 06/24 1635 All vital signs available at the time of this en try have been reviewed. Condition Stable, Improved Clinical Impression Clinical Impression Primary Impression: Gastroparesis Time of Impression 1650 Disposition Decision Discharge )( Discharged to Home Yes )( Time 1650 )( Date 06/24/20 Discharge/Care Plan Counseled Regarding Diagnosis, Lab resul ts, Need for follow-up, When to return to ED, Smoking cessation (MJ) Patient Instructions ED How to Quit Smoking, ED Vomiting (Adult) Referrals Brayan Winn MD Discharge Note I have spoken with the patie nt and/or caregivers. I have explained the patient's condition, diagnoses and ryder atment plan based on the information available to me at this time. I have answered the patient's and/ or caregiver's questions and addressed any concerns. The patient and/or careg bill have as good an understanding of the patient 's diagnosis, condition and treatment plan as can be expected at this point. The vital signs have bee n stable. The patient's condition is stable and appr opriate for discharge from the emergency department. The patient will pursue further outpatient evalu ation with the primary care physician or other designated or consulting phys ician as outlined in the discharge instructions. The patient and/or caregivers are agreeable to this plan of care and follow-up instructions have been exp lained in detail. The patient and/or caregivers have received these instructio ns in written format and have expressed an understanding of the discharge inst ructions. The patient and/or caregivers are aware that any significant change in condition or worsening of symptoms should prompt an immediate return to th is or the closest emergency department or a call to 911. Quality Measures BP F/U for HTN Referred for BP f/u < 4wk, F/u wi th PCP/other doc Preg Test for Women w/Abd Pa in Female age 14-50, Complaint of abdominal pn, Any preg test ordered Smoking Cessation Screened, tobacco user, Tobacc o cess intervention Tobacco Screening/Cessation 18 years or older, T obacco user Smoking Cessation Counseling The patient was questioned r egarding their smoking habits, and I have determined , as the patient's treating physician, that ther e is a medical necessity in regards to the patient's med ical condition to provide smoking cessation program education. The patient was a dvised to stop smoking and counseled for a period of greater than 3 minutes. The patient was instructed to follow up with a primary care physician for smoking cessation and given i nformation regarding local smoking cessation programs i n the area. The patient received detailed discharge instructions as to how to stop smoking. The patient expressed an understanding of the need to follow up and the plan for smokin g cessation. Electronically Signed by Maicol Coy MD on 06/09 07/30 at 2053 RPT #:[id number] END OF REPORT 2020-05-19 12:11:00-00:00 [facility] EMERGENCY PROVIDER REPORT REPORT#:[id number] REPORT STATUS: Signed DATE:05/19/20 TIME: 1211 PATIENT: BREANNA QUEEN UNIT #: [id number] ROOM/BED: AGE: 30 SEX: F PCP PHYS: Brayan Winn MD SERVICE AUTHOR: Sawyer Centeno II * ALL edits or amendments must be made on the el [employer]/computer document * HPI-Abd Pain F Under 40 Free Text HPI Notes Free Text HPI Notes The patient tells me she has a history o f gastroparesis but is not a diabetic. She tells me that she is [facility] and that she has GI specialist in [place] whose name is Dr. Hendrix. She tells me she used to get Botox injections in her pilorus to treat her pain. She tells me she went to a local hospital yesterday and got s everal medications for pain but the pain did not get any better. General Confirmed Patient Yes Initial Greet Date/Time 05/19/20 1129 PCP In [facility] Presentation Chief Complaint Abdominal pain Hx Obtained From Patient Sudden in Onset? No Onset Occurred Chronic Symptom Duration Waxes and wanes Progression since Onset Waxes and wanes Caused by No trauma by history Location Diffuse Quality Same as prior, Aching Radiation Does not radiate. Exacerbated by Nothing Relieved by Nothing Risk-Abd Pain F Under 40 )( Ectopic Risk factors reviewed Coronary Artery Disease Risk factors reviewed, N o risk factors Thoracic Aortic Dissection Risk factors reviewed , No risk factors Review of Systems ROS Statements All systems rev neg except as marked. Focused Review of Systems Constitutional Denies: Chills, Fatigue, Fever, Lethargy, Malais e, Recent wt loss, Weakness - generalized. Respiratory Denies: Cough, non-productive, Cough, productive , Dyspnea on exertion, Hemoptysis, Parox nocturnal dyspnea, Pleuritic p ain, Shortness of breath, Wheezing. Cardiovascular Denies: Chest pain, Dyspnea on exertion, Edema, Orthopnea, Palpitations, Parox nocturnal dyspnea, Syncope. GI Reports: Abdominal pain. Denies: Diarrhea, Nause a, Vomiting. Female Denies: Dysuria, Flank pain, Hematuria. Musculoskeletal Denies: Back pain, Lumbar pain, Neck pain. Past Medical History - Adult Stated Complaint ABD PAIN AND NAUSEA Allergies Coded Allergies: scopolamine (Mild, RASH-HIVES 05/19/20) Review of Nursing Notes Rev avail, and agree Additional Medical History Gastroparesis Past Surgical History: Reports: Cholecystectomy. Physical Exam Vital Signs Vital Signs First Documented: Result Date Time Pulse Ox 98 05/19 1128 B/P 158/101 05/19 1128 B/P Mean 120 05/19 1128 Temp 36.9 05/198 Pulse 84 05/19 1128 Resp 18 05/20 1127 Last Documented: Result Date Time Pulse Ox 98 05/19 1128 B/P 158/101 05/19 1128 B/P Mean 120 05/19 1128 Temp 36.9 05/198 Pulse 84 05/19 1128 Resp 18 05/198 Review of Vital Signs Reviewed Focused PE General/Const General/Const Awake, Alert, No acute di stress, Well appearing, Well developed MS Head Head Atraumatic, Normocephalic Eyes Eyes Atraumatic, PERRL, EOMI Ears/Nose/Throat Ears/Nose/Throat Atraumatic, Airway patent, Muc ous membranes moist Resp/Chest Respiratory/Chest Atraumatic, Breath sounds NL, Breath sounds = bilat, No respiratory distress Cardiovascular Cardiovascular Heart rate NL, Regular rhythm, H eart sounds NL Abdomen/GI Abdomen/GI Atraumatic, Soft, Non-tender, McBurn ey's non-tender, No guarding, No rebound, BS normoactive MS Back Back Atraumatic, Inspection NL, Full range of m otion Skin Skin Atraumatic, Color NL, No rash Neurologic Neurologic Oriented X3, Speech NL, No motor def icits, No sensory deficits Interpretation Diagnostics Lab Results Interpretation Results Laboratory Tests 05/19/20 1140: [Embedded Image Not Available] Laboratory Tests: 05/19 05/19 1242 1242 Toxicology Urine Opiates Screen (NEGATIVE ng/ml) NEGATIVE Urine Barbiturates (NEGATIVE ng/ml) NEGATIVE Ur Phencyclidine Scrn (NEGATIVE ng/ml) NEGATIVE Ur Amphetamine Screen (NEGATIVE ng/dl) NEGATIVE U Benzodiazepines Scrn (NEGATIVE ng/ml) NEGATIV E Urine Cocaine Screen (NEGATIVE ng/ml) NEGATIVE U Cannabinoids Screen (NEGATIVE ng/ml) POSITIVE H Ketones (NEGATIVE mg/dl) 80 H Urines Urine Color (YELLOW) DK YELLOW Urine Appearance (CLEAR) SL HAZY Urine pH (4.6 - 8.0) 6.0 Ur Specific [place] (1.001 - 1.035) >= 1.030 Urine Protein (NEGATIVE mg/dl) 100 H Urine Glucose (UA) (NORMAL mg/dl) NEGATIVE Urine Blood (NEGATIVE /UL) TRACE Urine Nitrite (NEGATIVE) NEGATIVE Urine Bilirubin (NEGATIVE mg/dl) LARGE Urine Ictotest (NEGATIVE) POSITIVE H Urine Urobilinogen (NORMAL mg/dl) 1.0 Ur Leukocyte Esterase (NEGATIVE /UL) NEGATIVE Urine RBC (0 - 5 #/hpf) 3-5 Urine WBC (0 - 5 #/hpf) 0-2 Ur Epithelial Cells (NEG,FEW /hpf) FEW Urine Bacteria (NEGATIVE /hpf) FEW H Urine Mucus (NEG,FEW /hpf) 1+ H Urine HCG, Qual (NEGATIVE) NEGATIVE Urine Comment CLN CATCH 05/19 1140 Chemistry Sodium (136 - 145 mmol/L) 137 Potassium (3.5 - 5.1 mmol/L) 4.0 Chloride (98 - 107 mmol/L) 100 Carbon Dioxide (21 - 32 mmol/L) 21 BUN (7 - 18 mg/dL) 14 Creatinine (0.55 - 1.02 mg/dl) 0.64 Estimated GFR (MDRD) (>=60) > 60.00 Glucose (70 - 100 mg/dL) 109 H Calcium (8.5 - 10.1 mg/dL) 9.8 Total Bilirubin (0.2 - 1.0 mg/dL) 0.8 Direct Bilirubin (0.0 - 0.2 mg/dl) 0.21 H AST (15 - 37 U/L) 25 ALT (12 - 78 U/L) 35 Alkaline Phosphatase (45 - 117 U/L) 119 H Total Protein (6.4 - 8.2 g/dl) 8.1 Albumin (3.4 - 5.0 g/dl) 3.6 Lipase (73 - 393 U/L) 67 L Hematology WBC (4.5 - 11.0 X10(3)) 10.3 RBC (4.2 - 5.4 X10(6)) 4.55 Hgb (12.5 - 16.0 g/dL) 13.0 Hct (37.0 - 47.0 %) 40.3 MCV (78 - 100 fL) 88.6 MCH (26.0 - 34.0 pg) 28.6 MCHC (30.0 - 37.0 g/dl) 32.3 RDW (11.5 - 14.5 %) 13.5 Plt Count (150 - 350 X10(3)) 256 MPV (8.7 - 11.4 fl) 11.5 H Neut % (Auto) (36.0 - 66.0 %) 86.0 H Lymph % (Auto) (16 - 50 %) 9.5 L Davison % (Auto) (0.0 - 13.0 %) 4.3 Eos % (Auto) (0.0 - 4.5 %) 0.0 Baso % (Auto) (0.0 - 1.5 %) 0.1 Immature Gran # (Auto) (0.00 - 0.03 X10(3)uL) 0 .01 Absolute Neuts (auto) (1.7 - 7.7 X10(3)) 8.8 H Absolute Lymphs (auto) (1.0 - 4.8 X10(3)) 1.0 Absolute Monos (auto) (0.0 - 0.89 X10(3)) 0.4 Absolute Eos (auto) (0.0 - 0.6 X10(3)) 0.0 Absolute Basos (auto) (0.0 - 0.2 X10(3)) 0.0 Immature Gran % (0.0 - 2.0 %) 0.1 RBC Morphology (NORMAL) NO Recent Impressions: RADIOLOGY - XR ABDOMEN 2V 05/20 1211 Report Impression - Status: SIGNED Entered: 05/19/2020 1219 IMPRESSION: No acute process. Location: V20 Impression By: Emily CABALLERO M.D. Imaging Statement Radiographic studies reviewed and considered in the medical decision-making. Lab Imaging Statement Laboratory radiographic studies reviewed and con sidered in the medical decision-making. Re-Evaluation MDM )( Re-Evaluation/Progress #1 Time of Re-Eval 1258 )( Re-Eval Status Improved Plan Post Re-Eval Plan discharge ED Course Medication(s) Ordered Medication(s) Ordered: Antihistamine Drugs Sig/Ayanna Start time Last Medication Dose Route Stop Time Status Admin Diphenhydramine HCl 50 MG X1ED STA 05/19 1212 D C 05/19 IV 05/19 1213 1239 Electrolytic, Caloric, And Elvia Sig/Ayanna Start time Last Medication Dose Route Stop Time Status Admin Sodium Chloride 1,000 ML X1ED STA 05/19 1212 DC 05/19 IV 05/19 1311 1239 Gastrointestinal Drugs Sig/Ayanna Start time Last Medication Dose Route Stop Time Status Admin Metoclopramide HCl 5 MG X1ED STA 05/19 1212 DC /10 IV 05/19 1213 1240 Patient Discharge Departure Vital Signs/Condition Vital Signs First Documented: Result Date Time Pulse Ox 98 05/19 1128 B/P 158/101 05/19 1128 B/P Mean 120 05/19 1128 Temp 36.9 05/19 1128 Pulse 84 / 1128 Resp 18 05/19 1128 Last Documented: Result Date Time Pulse Ox 98 04/ 1128 B/P 158/101 / 1128 B/P Mean 120 05/19 1128 Temp 36.9 05/19 1128 Pulse 84 05/19 1128 Resp 18 05/19 1128 All vital signs available at the time of this en try have been reviewed. Condition Stable, Improved Clinical Impression Clinical Impression Primary Impression: Chronic generalized abdomina l pain Disposition Decision Discharge )( Discharged to Home Yes )( Time 1259 )( Date 05/19/20 Discharge/Care Plan Counseled Regarding Diagnosi s, Lab results, Imaging studies, Prescriptions, Need for follow-up, When to return to ED (Auto) Prescriptions Current Visit Scripts DICYCLOMINE (BENTYL) 20 MG PO QID 3 Days #12 TAB ONDANSETRON ODT (ZOFRAN ODT) 4 MG PO Q6H PRN PRN NAUSEA/VOMITING 3 Days #10 TABS Patient Instructions ED Chronic Pain Referrals Isatu See MD: 2-3 Days Call or go to the office for appointment Departure Forms 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 I have explained the patient's condition, diagnoses and ryder atment plan based on the information available to me at this time. I have answered the patient's and/ or caregiver's questions and addressed any concerns. The patient and/or careg bill have as good an understanding of the patient 's diagnosis, condition and treatment plan as can be expected at this point. The vital signs have bee n stable. The patient's condition is stable and appr opriate for discharge from the emergency department. The patient will pursue further outpatient evalu ation with the primary care physician or other designated or consulting phys ician as outlined in the discharge instructions. The patient and/or caregivers are agreeable to this plan of care and follow-up instructions have been exp lained in detail. The patient and/or caregivers have received these instructio ns in written format and have expressed an understanding of the discharge inst ructions. The patient and/or caregivers are aware that any significant change in condition or worsening of symptoms should prompt an immediate return to [facility] or the closest emergency department or a call to 911. Quality Measures BP F/U for HTN F/u with PCP/other doc at 1708 RPT #:[id number] END OF REPORT 2019-07-30 21:12:00-00:00 [facility] EMERGENCY PROVIDER REPORT REPORT#:[id number] REPORT STATUS: Signed DATE:07/30/19 TIME: 2111 PATIENT: BREANNA JIMENEZ UNIT #: [id number] ROOM/BED: AGE: 29 SEX: F PCP PHYS: No Primary or Family Ph ysician SERVICE AUTHOR: Soah Rojas * ALL edits or amendments must be made on the [employer]/computer document * HPI-Abd Pain F Under 40 General Confirmed Patient Yes Patient Type New patient Initial Greet Date/Time 07/30/192111 Assumed Care at Time 2111 Date 07/30/19 Presentation Chief Complaint Abdominal pain, Nausea, Vomiting moderate Hx Obtained From Patient Sudden in Onset? Yes Onset Occurred Today (4:30 PM) Symptom Duration Since onset Progression since Onset Unchanged Context of Onset Eating Caused by No trauma by history Location Epigastric Quality Burning, Cramping Radiation No: Does not radiate. Migration/Movement None Severity: Onset Mild Severity: Current Pain level 8 out of 10 Associated with Reports: Nausea, Vomiting. Associated Other Pt denies other symptoms Exacerbated by Nothing Relieved by Nothing Context Immunization Status General All up to date Recent Healthcare Recent doctor visit Similar Sx Previous Yes /Sexual Hx Last Menstrual Period 06/24/19 Additional Context ON CONTROL Risk-Abd Pain F Under 40 )( Ectopic Risk factors reviewed Coronary Artery Disease Risk factors reviewed Thoracic Aortic Dissection Risk factors reviewed Review of Systems ROS Statements All systems rev neg except as marked. Complete sys rev neg except as marked. Basic Review of Systems Basic ROS EYES: No redness, ENT: No sore throat, HEM: No bleeding/bruising, SKIN : No rash, NEURO: No change MS, NEURO: No focal deficit, PSYCH: NL thought content Focused Review of Systems Constitutional Denies: Fever, Weakness - generalized. Respiratory Denies: Dyspnea on exertion, Shortness of breath . Cardiovascular Denies: Dyspnea on exertion. GI Reports: Abdominal pain, Nausea, Vomiting. Female Denies: Dysuria, Flank pain. Musculoskeletal Denies: Back pain, Extremity pain, Lumbar pain. Past Medical History - Adult Stated Complaint ABD Allergies Coded Allergies: No Known Allergies (07/30/19) Home Medications Reported Medications AMOXICILLIN/CLAV K (AUGMENTIN 875/125 MG) 1 TAB PO Q12H PANTOPRAZOLE DR (PROTONIX) 20 MG PO DAILY [ASHKAN] Review of Nursing Notes Rev avail, and agree Alcohol Use Denies EtOH use Drug Use Denies recreational drugs Smoking status for patients 13 years old or olde r: Never Smoker Ambulatory Status Independent Physical Exam Vital Signs Vital Signs First Documented: Result Date Time Pulse Ox 98 07/29 2114 B/P 116/76 07/29 2114 B/P Mean 89 07/29 2114 O2 Delivery Room air 07/29 2114 Temp 36.2 07/29 2114 Pulse 78 07/29 2114 Resp 18 07/29 2114 Last Documented: Result Date Time Pulse Ox 100 07/29 2252 B/P 118/80 07/29 2252 B/P Mean 92 07/29 2252 Pulse 86 07/29 2252 Resp 16 07/29 2252 O2 Delivery Room air 07/29 2114 Temp 36.2 07/29 2114 Review of Vital Signs Reviewed Basic Physical Exam Basic PE HEAD: Atraumatic/NC, EYES: PERRL, conj clear, ENT: Membranes moist, NECK: Supple, EXT: No gross abnormality, SKIN: No rashes, warm/dry, NEURO: alert oriented, NEURO: gross movement NL, PSYCH: NL t hought content Focused PE General/Const General/Const Awake, Alert, Well appearing, Wel l developed, Well nourished, Cooperative, Not toxic appearing Appearance/Presentation Appears older than age. MS Head Head Normocephalic Eyes Eyes PERRL, No nystagmus Ears/Nose/Throat Ears/Nose/Throat Airway patent, Mucous membrane s moist, Pharynx NL Resp/Chest Respiratory/Chest Breath sounds NL, No respirat ory distress Cardiovascular Cardiovascular Regular rhythm, Heart sounds NL Abdomen/GI Abdomen/GI Soft Tenderness/Guarding/Rebound Tender epigastric. MS Back Back Inspection NL, Full range of motion Skin Skin Color NL, No rash, Warm, Dry, Intact, Turg or NL, No swelling Neurologic Neurologic Oriented X3, Speech NL, No motor def icits, No sensory deficits Interpretation Diagnostics Lab Results Interpretation Results Laboratory Tests 07/30/192128: [Embedded Image Not Available] Laboratory Tests: 06/20 06/20 2150 2129 Chemistry Sodium (136 - 145 mmol/L) 136 Potassium (3.5 - 5.1 mmol/L) 3.4 L Chloride (98 - 107 mmol/L) 104 Carbon Dioxide (21 - 32 mmol/L) 24 BUN (7 - 18 mg/dL) 9 Creatinine (0.51 - 0.95 mg/dL) 0.70 Estimated GFR (MDRD) (>=60) > 60.00 Glucose (70 - 100 mg/dL) 125 H Calcium (8.5 - 10.1 mg/dL) 9.3 Total Bilirubin (0.2 - 1.0 mg/dl) 1.2 H Direct Bilirubin (0.0 - 0.4 mg/dl) 0.34 AST (15 - 37 U/L) 21 ALT (12 - 78 U/L) 29 Alkaline Phosphatase (50 - 136 U/L) 69 Total Protein (6.4 - 8.2 g/dl) 7.8 Albumin (3.4 - 5.0 g/dl) 3.7 Lipase (73 - 393 U/L) 63 L Hematology WBC (4.5 - 11.0 X10(3)) 7.7 RBC (4.2 - 5.4 X10(6)) 4.45 Hgb (12.5 - 16.0 g/dL) 13.3 Hct (37.0 - 47.0 %) 40.2 MCV (78 - 100 fl) 90.3 MCH (26.0 - 34.0 pg) 29.9 MCHC (30.0 - 37.0 g/dl) 33.1 RDW (11.5 - 14.5 %) 13.1 Plt Count (150 - 350 X10(3)) 192 MPV (8.7 - 11.4 fl) 12.9 H Neut % (Auto) (36.0 - 66.0 %) 78.8 H Lymph % (Auto) (16.0 - 50.0 %) 15.3 L Davison % (Auto) (0.0 - 13.0 %) 5.2 Eos % (Auto) (0.0 - 4.5 %) 0.1 Baso % (Auto) (0.0 - 1.5 %) 0.3 Immature Gran # (Auto) (0.00 - 0.03 X10(3)uL) 0 .02 Absolute Neuts (auto) (1.70 - 7.70 X10(3)) 6.07 Absolute Lymphs (auto) (0.70 - 4.00 X10(3)) 1.1 8 Absolute Monos (auto) (0.00 - 0.89 X10(3)) 0.40 Absolute Eos (auto) (0.00 - 0.60 X10(3)) 0.01 Absolute Basos (auto) (0.00 - 0.20 X10(3)) 0.02 Absolute Nucleated RBC (0.0 - 0.1 K/mm3) 0.00 Immature Gran % (0.0 - 2.0 %) 0.3 Nucleated RBC % (0 - 0.2 %) 0.0 Toxicology Ketones (NEGATIVE mg/dl) 60 Urines Urine Color (YELLOW) YELLOW Urine Appearance (CLEAR) CLEAR Urine pH (4.6 - 8.0) 6.0 Ur Specific [place] (1.001 - 1.035) 1.017 Urine Protein (NEGATIVE mg/dl) 10 H Urine Glucose (UA) (NORMAL mg/dl) NORMAL Urine Blood (NEGATIVE /UL) TRACE Urine Nitrite (NEGATIVE) NEGATIVE Urine Bilirubin (NEGATIVE mg/dl) NEGATIVE Urine Urobilinogen (NORMAL mg/dl) NORMAL Ur Leukocyte Esterase (NEGATIVE /UL) NEGATIVE Urine RBC (0 - 5 #/hpf) 3-5 Urine WBC (0 - 5 #/hpf) 3-5 Ur Epithelial Cells (NEG,FEW /hpf) 3+ H Urine Bacteria (NEGATIVE /hpf) FEW H Urine Mucus (NEG,FEW /hpf) 2+ H Urine Comment CLN CATCH Point of Care Testing Urinalysis Interpretation Urinalysis NL Re-Evaluation MDM )( Re-Evaluation/Progress #1 Time of Re-Eval 2228 )( Re-Eval Status Improved Re-Eval Abdomen Soft Eval Following Treatment Pt. feels better, Condi tion improved Pain Re-Evaluation Pain improved Plan Post Re-Eval Plan discharge Abd Pain MDM Note F < 40 The patient is resting comfortably and feels bet ter, is alert and in no distress. The repeat examination is unremarkable and benign; in particular, there is no discomfort at McBurney's point. The history, exam, diagnostic testing, and current condition do not suggest ac [place] appendicitis, bowel obstruction, tubovarian abscess, ectopic pregnan cy, ovarian torsion, acute cholecystitis, bowel perforation, major gastroin testinal bleeding, severe diverticulitis, sepsis, or other significant pat hology to warrant further testing, continued ED treatment, admission, or s urgical evaluation at this point. The vital signs have been stable. The pat ient does not have uncontrollable pain, intractable vomiting, or ot her significant symptoms. The patient's condition is stable and appropriate fo r discharge. The patient will pursue further outpatient evaluation with the [facility] care physician or other designated or consulting physician as in dicated in the discharge instructions. Tissue Perfusion Reassessment Patient tissue perfusion reassessment completed. ED Course Medication(s) Ordered Medication(s) Ordered: Cardiovascular Drugs Sig/Ayanna Start time Last Medication Dose Route Stop Time Status Admin Lidocaine HCl 10 ML X1ED STA 07/29 2113 DC PO 07/29 2114 Central Nervous System Agents Sig/Ayanna Start time Last Medication Dose Route Stop Time Status Admin Ketorolac 30 MG X1ED STA 07/293 DC 07/29 Tromethamine IV 07/29 2333 2336 Promethazine HCl 25 MG X1ED STA 07/29 2258 DCr 07/29 IM 07/29 225 2305 Ketorolac 30 MG X1ED STA 07/29 2114 DC 07/29 Tromethamine IV 07/30 2115 213 Electrolytic, Caloric, And Elvia Sig/Ayanna Start time Last Medication Dose Route Stop Time Status Admin Potassium Chloride 20 MEQ X1ED STA 07/29 2228 DC PO 07/29 2229 Sodium Chloride 1,000 ML X1ED STA 07/29 2113 DC 07/29 IV 07/293 2139 Gastrointestinal Drugs Sig/Ayanna Start time Last Medication Dose Route Stop Time Status Admin Al Hydrox/Mg Hydrox/ 30 ML X1ED STA 07/29 2113 DC Simethicone PO 07/29 2114 Famotidine 20 MG X1ED STA 07/29 2113 DC 07/29 IV 07/29 Ondansetron HCl 4 MG X1ED STA 07/29 2113 DC IV 07/29 Patient Discharge Departure Vital Signs/Condition Vital Signs First Documented: Result Date Time Pulse Ox 98 07/29 2114 B/P 116/76 07/29 2114 B/P Mean 89 07/29 2114 O2 Delivery Room air 07/29 2114 Temp 36.2 07/29 2114 Pulse 78 07/29 2114 Resp 18 07/29 2114 Last Documented: Result Date Time Pulse Ox 100 07/29 2252 B/P 118/80 07/29 2252 B/P Mean 92 07/29 2252 Pulse 86 07/29 2252 Resp 16 07/29 2252 O2 Delivery Room air 07/29 2114 Temp 36.2 07/29 2114 All vital signs available at the time of this en try have been reviewed. Condition Stable Clinical Impression Clinical Impression Primary Impression: Gastritis Time of Impression 2304 Disposition Decision Discharge )( Discharged to Home Yes )( Time 2304 )( Date 07/30/19 Discharge/Care Plan Counseled Regarding Diagnosis, Lab resul ts, Prescriptions, Need for follow-up, When to return to ED Prescriptions PEDIALYTE, FAMOTIDINE, ZOFRAN, MAALOX Prescriptions Reviewed Risks, Benefits, Alternat jayy treatment Referrals No Primary or Family Physician (PCP) Discharge Note I have spoken with the patie nt and/or caregivers. I have explained the patient's condition, diagnoses and ryder atment plan based on the information available to me at this time. I have answered the patient's and/ or caregiver's questions and addressed any concerns. The patient and/or careg bill have as good an understanding of the patient 's diagnosis, condition and treatment plan as can be expected at this point. The vital signs have bee n stable. The patient's condition is stable and appr opriate for discharge from the emergency department. The patient will pursue further outpatient evalu ation with the primary care physician or other designated or consulting phys ician as outlined in the discharge instructions. The patient and/or caregivers are agreeable to this plan of care and follow-up instructions have been exp lained in detail. The patient and/or caregivers have received these instructio ns in written format and have expressed an understanding of the discharge inst ructions. The patient and/or caregivers are aware that any significant change in condition or worsening of symptoms should prompt an immediate return to [facility] or the closest emergency department or a call to 911. at 0000 RPT #:[id number] END OF REPORT 2019-07-30 21:12:00-00:00 [facility] EMERGENCY PROVIDER REPORT REPORT#:[id number] REPORT STATUS: Signed DATE:07/30/19 TIME: 2111 PATIENT: BREANNA JIMENEZ UNIT #: [id number] ROOM/BED: AGE: 29 SEX: F PCP PHYS: No Primary or Family Ph ysician SERVICE AUTHOR: Soha Rojas * ALL edits or amendments must be made on the [employer]/computer document * HPI-Abd Pain F Under 40 General Confirmed Patient Yes Patient Type New patient Initial Greet Date/Time 07/30/192111 Assumed Care at Time 2111 Date 07/30/19 Presentation Chief Complaint Abdominal pain, Nausea, Vomiting moderate Hx Obtained From Patient Sudden in Onset? Yes Onset Occurred Today (4:30 PM) Symptom Duration Since onset Progression since Onset Unchanged Context of Onset Eating Caused by No trauma by history Location Epigastric Quality Burning, Cramping Radiation No: Does not radiate. Migration/Movement None Severity: Onset Mild Severity: Current Pain level 8 out of 10 Associated with Reports: Nausea, Vomiting. Associated Other Pt denies other symptoms Exacerbated by Nothing Relieved by Nothing Context Immunization Status General All up to date Recent Healthcare Recent doctor visit Similar Sx Previous Yes /Sexual Hx Last Menstrual Period 06/24/19 Additional Context ON CONTROL Risk-Abd Pain F Under 40 )( Ectopic Risk factors reviewed Coronary Artery Disease Risk factors reviewed Thoracic Aortic Dissection Risk factors reviewed Review of Systems ROS Statements All systems rev neg except as marked. Complete sys rev neg except as marked. Basic Review of Systems Basic ROS EYES: No redness, ENT: No sore throat, HEM: No bleeding/bruising, SKIN : No rash, NEURO: No change MS, NEURO: No focal deficit, PSYCH: NL thought content Focused Review of Systems Constitutional Denies: Fever, Weakness - generalized. Respiratory Denies: Dyspnea on exertion, Shortness of breath . Cardiovascular Denies: Dyspnea on exertion. GI Reports: Abdominal pain, Nausea, Vomiting. Female Denies: Dysuria, Flank pain. Musculoskeletal Denies: Back pain, Extremity pain, Lumbar pain. Past Medical History - Adult Stated Complaint ABD Allergies Coded Allergies: No Known Allergies (07/30/19) Home Medications Reported Medications AMOXICILLIN/CLAV K (AUGMENTIN 875/125 MG) 1 TAB PO Q12H PANTOPRAZOLE DR (PROTONIX) 20 MG PO DAILY [ASHKAN] Review of Nursing Notes Rev avail, and agree Alcohol Use Denies EtOH use Drug Use Denies recreational drugs Smoking status for patients 13 years old or olde r: Never Smoker Ambulatory Status Independent Physical Exam Vital Signs Vital Signs First Documented: Result Date Time Pulse Ox 98 07/29 2114 B/P 116/76 07/29 2114 B/P Mean 89 07/29 2114 O2 Delivery Room air 07/29 2114 Temp 36.2 07/29 2114 Pulse 78 07/29 2114 Resp 18 07/29 2114 Last Documented: Result Date Time Pulse Ox 100 07/29 2252 B/P 118/80 07/29 2252 B/P Mean 92 07/29 2252 Pulse 86 07/29 2252 Resp 16 07/29 2252 O2 Delivery Room air 07/29 2114 Temp 36.2 07/29 2114 Review of Vital Signs Reviewed Basic Physical Exam Basic PE HEAD: Atraumatic/NC, EYES: PERRL, conj clear, ENT: Membranes moist, NECK: Supple, EXT: No gross abnormality, SKIN: No rashes, warm/dry, NEURO: alert oriented, NEURO: gross movement NL, PSYCH: NL t hought content Focused PE General/Const General/Const Awake, Alert, Well appearing, Wel l developed, Well nourished, Cooperative, Not toxic appearing Appearance/Presentation Appears older than age. MS Head Head Normocephalic Eyes Eyes PERRL, No nystagmus Ears/Nose/Throat Ears/Nose/Throat Airway patent, Mucous membrane s moist, Pharynx NL Resp/Chest Respiratory/Chest Breath sounds NL, No respirat ory distress Cardiovascular Cardiovascular Regular rhythm, Heart sounds NL Abdomen/GI Abdomen/GI Soft Tenderness/Guarding/Rebound Tender epigastric. MS Back Back Inspection NL, Full range of motion Skin Skin Color NL, No rash, Warm, Dry, Intact, Turg or NL, No swelling Neurologic Neurologic Oriented X3, Speech NL, No motor def icits, No sensory deficits Interpretation Diagnostics Lab Results Interpretation Results Laboratory Tests 07/30/192128: [Embedded Image Not Available] Laboratory Tests: 07/29 Chemistry Sodium (136 - 145 mmol/L) 136 Potassium (3.5 - 5.1 mmol/L) 3.4 L Chloride (98 - 107 mmol/L) 104 Carbon Dioxide (21 - 32 mmol/L) 24 BUN (7 - 18 mg/dL) 9 Creatinine (0.51 - 0.95 mg/dL) 0.70 Estimated GFR (MDRD) (>=60) > 60.00 Glucose (70 - 100 mg/dL) 125 H Calcium (8.5 - 10.1 mg/dL) 9.3 Total Bilirubin (0.2 - 1.0 mg/dl) 1.2 H Direct Bilirubin (0.0 - 0.4 mg/dl) 0.34 AST (15 - 37 U/L) 21 ALT (12 - 78 U/L) 29 Alkaline Phosphatase (50 - 136 U/L) 69 Total Protein (6.4 - 8.2 g/dl) 7.8 Albumin (3.4 - 5.0 g/dl) 3.7 Lipase (73 - 393 U/L) 63 L Hematology WBC (4.5 - 11.0 X10(3)) 7.7 RBC (4.2 - 5.4 X10(6)) 4.45 Hgb (12.5 - 16.0 g/dL) 13.3 Hct (37.0 - 47.0 %) 40.2 MCV (78 - 100 fl) 90.3 MCH (26.0 - 34.0 pg) 29.9 MCHC (30.0 - 37.0 g/dl) 33.1 RDW (11.5 - 14.5 %) 13.1 Plt Count (150 - 350 X10(3)) 192 MPV (8.7 - 11.4 fl) 12.9 H Neut % (Auto) (36.0 - 66.0 %) 78.8 H Lymph % (Auto) (16.0 - 50.0 %) 15.3 L Davison % (Auto) (0.0 - 13.0 %) 5.2 Eos % (Auto) (0.0 - 4.5 %) 0.1 Baso % (Auto) (0.0 - 1.5 %) 0.3 Immature Gran # (Auto) (0.00 - 0.03 X10(3)uL) 0 .02 Absolute Neuts (auto) (1.70 - 7.70 X10(3)) 6.07 Absolute Lymphs (auto) (0.70 - 4.00 X10(3)) 1.1 8 Absolute Monos (auto) (0.00 - 0.89 X10(3)) 0.4 0 Absolute Eos (auto) (0.00 - 0.60 X10(3)) 0.01 Absolute Basos (auto) (0.00 - 0.20 X10(3)) 0.02 Absolute Nucleated RBC (0.0 - 0.1 K/mm3) 0.00 Immature Gran % (0.0 - 2.0 %) 0.3 Nucleated RBC % (0 - 0.2 %) 0.0 Toxicology Ketones (NEGATIVE mg/dl) 60 Urines Urine Color (YELLOW) YELLOW Urine Appearance (CLEAR) CLEAR Urine pH (4.6 - 8.0) 6.0 Ur Specific [place] (1.001 - 1.035) 1.017 Urine Protein (NEGATIVE mg/dl) 10 H Urine Glucose (UA) (NORMAL mg/dl) NORMAL Urine Blood (NEGATIVE /UL) TRACE Urine Nitrite (NEGATIVE) NEGATIVE Urine Bilirubin (NEGATIVE mg/dl) NEGATIVE Urine Urobilinogen (NORMAL mg/dl) NORMAL Ur Leukocyte Esterase (NEGATIVE /UL) NEGATIVE Urine RBC (0 - 5 #/hpf) 3-5 Urine WBC (0 - 5 #/hpf) 3-5 Ur Epithelial Cells (NEG,FEW /hpf) 3+ H Urine Bacteria (NEGATIVE /hpf) FEW H Urine Mucus (NEG,FEW /hpf) 2+ H Urine Comment CLN CATCH Point of Care Testing Urinalysis Interpretation Urinalysis NL Re-Evaluation MDM )( Re-Evaluation/Progress #1 Time of Re-Eval 2228 )( Re-Eval Status Improved Re-Eval Abdomen Soft Eval Following Treatment Pt. feels better, Condi tion improved Pain Re-Evaluation Pain improved Plan Post Re-Eval Plan discharge Abd Pain MDM Note F < 40 The patient is resting comfortably and feels bet ter, is alert and in no distress. The repeat examination is unremarkable and benign; in particular, there is no discomfort at McBurney's point. The history, exam, diagnostic testing, and current condition do not suggest ac [place] appendicitis, bowel obstruction, tubovarian abscess, ectopic pregnan cy, ovarian torsion, acute cholecystitis, bowel perforation, major gastroin testinal bleeding, severe diverticulitis, sepsis, or other significant pat hology to warrant further testing, continued ED treatment, admission, or s urgical evaluation at this point. The vital signs have been stable. The pat ient does not have uncontrollable pain, intractable vomiting, or ot her significant symptoms. The patient's condition is stable and appropriate fo r discharge. The patient will pursue further outpatient evaluation with the [facility] care physician or other designated or consulting physician as in dicated in the discharge instructions. Tissue Perfusion Reassessment Patient tissue perfusion reassessment completed. ED Course Medication(s) Ordered Medication(s) Ordered: Cardiovascular Drugs Sig/Ayanna Start time Last Medication Dose Route Stop Time Status Admin Lidocaine HCl 10 ML X1ED STA 07/29 2113 DC PO 07/29 2114 Central Nervous System Agents Sig/Ayanna Start time Last Medication Dose Route Stop Time Status Admin Ketorolac 30 MG X1ED STA 07/29 2332 DC 07/29 Tromethamine IV 07/29 2333 233 Promethazine HCl 25 MG X1ED STA 07/298 DCr 07/29 IM 07/29 2258 2305 Ketorolac 30 MG X1ED STA 07/29 2114 DC 07/29 Tromethamine IV 07/30 2115 2139 Electrolytic, Caloric, And Elvia Sig/Ayanna Start time Last Medication Dose Route Stop Time Status Admin Potassium Chloride 20 MEQ X1ED STA 07/29 2228 D C PO 07/29 2229 Sodium Chloride 1,000 ML X1ED STA 07/29 2113 DC 07/29 IV 07/293 2139 Gastrointestinal Drugs Sig/Ayanna Start time Last Medication Dose Route Stop Time Status Admin Al Hydrox/Mg Hydrox/ 30 ML X1ED STA 07/29 2113 DC Simethicone PO 07/29 2114 Famotidine 20 MG X1ED STA 07/29 2113 DC 07/29 IV 07/29 Ondansetron HCl 4 MG X1ED STA 07/29 2113 DC IV 07/29 Patient Discharge Departure Vital Signs/Condition Vital Signs First Documented: Result Date Time Pulse Ox 98 07/29 2114 B/P 116/76 07/29 2114 B/P Mean 89 07/29 2114 O2 Delivery Room air 07/29 2114 Temp 36.2 07/29 2114 Pulse 78 07/29 2114 Resp 18 07/29 2114 Last Documented: Result Date Time Pulse Ox 100 07/29 2252 B/P 118/80 07/29 2252 B/P Mean 92 07/29 2252 Pulse 86 07/29 2252 Resp 16 07/29 2252 O2 Delivery Room air 07/29 2114 Temp 36.2 07/29 2114 All vital signs available at the time of this en try have been reviewed. Condition Stable Clinical Impression Clinical Impression Primary Impression: Gastritis Time of Impression 2304 Disposition Decision Discharge )( Discharged to Home Yes )( Time 2304 )( Date 07/30/19 Discharge/Care Plan Counseled Regarding Diagnosis, Lab resul ts, Prescriptions, Need for follow-up, When to return to ED Prescriptions PEDIALYTE, FAMOTIDINE, ZOFRAN, MAALOX Prescriptions Reviewed Risks, Benefits, Alternat jayy treatment Referrals No Primary or Family Physician (PCP) Discharge Note I have spoken with the patie nt and/or caregivers. I have explained the patient's condition, diagnoses and ryder atment plan based on the information available to me at this time. I have answered the patient's and/ or caregiver's questions and addressed any concerns. The patient and/or careg bill have as good an understanding of the patient 's diagnosis, condition and treatment plan as can be expected at this point. The vital signs have bee n stable. The patient's condition is stable and appr opriate for discharge from the emergency department. The patient will pursue further outpatient evalu ation with the primary care physician or other designated or consulting phys ician as outlined in the discharge instructions. The patient and/or caregivers are agreeable to this plan of care and follow-up instructions have been exp lained in detail. The patient and/or caregivers have received these instructio ns in written format and have expressed an understanding of the discharge inst ructions. The patient and/or caregivers are aware that any significant change in condition or worsening of symptoms should prompt an immediate return to [facility] or the closest emergency department or a call to 911. at 0000 Electronically Signed by Ulises Pearson MD on at 0024 RPT #:[id number] END OF REPORT
[2022-09-12] MEDS ORDERED: DIPHENHYDRAMINE 50 MG/ML VIAL ONE (07:18)
[2022-09-12] MEDS ORDERED: KETOROLAC 30 MG/ML INJ ONE (07:19)
[2022-09-12] MEDS ORDERED: NA CHLORIDE 0.9% 1,000 ML ONE (07:19)
[2022-09-12] MEDS ORDERED: DICYCLOMINE HCL 20 MG/2 ML AMP IM ONE (07:19)
[2022-09-12] MEDS ORDERED: LORazepam 2 MG/ML VIAL ONE (07:23)
[2022-09-12] MEDS ORDERED: METOCLOPRAMIDE 10 MG/2mL INJ ONE (07:24)
[2022-09-12 07:42] LABS: Absolute Lymphocytes (CBC) 0.7 K/uL (0.7-4.9); Hematocrit 39.7 % (36.0-45.0); MCV 83.9 fL (80-100); MPV 10.2 fL (7.6-11.3); RBC Red Blood Cell Count 4.73 M/uL (3.86-4.86)
[2022-09-12 08:01] LABS: Albumin 3.8 g/dL (3.4-5.0); Bilirubin Total 0.4 mg/dL (0.2-1.0); Potassium 4.1 mEq/L (3.5-5.1); Protein, Total 8.3 g/dL (6.4-8.2)
[2022-09-12] MEDS ORDERED: PROMETHAZINE INJ 25 MG/ML AMP ONE ×2 (09:08→11:52)
[2022-09-12] MEDS ORDERED: KETAMINE HCL IN 0.9 % NACL 50 MG/5 ML SYRINGE IV ONE (09:41)
[2022-09-12] MEDS ORDERED: NA CHLORIDE 0.9% 100 ML ONE (09:41)
[2022-09-12] MEDS ORDERED: ONDANSETRON 4 MG/2 ML VIAL ONE (11:52)
--- NOTE | 2022-09-12 13:08 | ER ---
Nurse's Notes [facility] Name: Efrem Pastor Age: 32 yrs Sex: Female : 1990 Arrival Date: 09/12/2022 Time: 06:38 Bed 5 Private MD: Kelton Daniels Diagnosis: Gastroparesis;Intractable nausea and vomiting Presentation: 09/12 06:53 Chief complaint: Patient states: upper abdominal pain of 10 with nausea and pf1 vomiting,onset 2230 last night. Patient stated has a history of gastroparesis. 06:53 Coronavirus screen: Vaccine status: Patient reports receiving the 2nd dose of the covid pf1 vaccine. Client denies travel out of the [place] in the last 14 days. At this time, the client does not indicate any symptoms associated with coronavirus-19. Ebola Screen: Patient negative for fever greater than or equal to 101.5 degrees Fahrenheit, and additional compatible Ebola Virus Disease symptoms. Initial Sepsis Screen: Does the patient meet any 2 criteria? No. Patient's initial sepsis screen is negative. Does the patient have a suspected source of infection? No. Patient's initial sepsis screen is negative. Risk Assessment: Do you want to hurt yourself or someone else? Patient reports no desire to harm self or others. 06:53 Method Of Arrival: Ambulatory pf1 06:53 Acuity: BELINDA 3 pf1 15:38 Onset of symptoms was September 12, 2022. ko1 Triage Assessment: 08:00 General: Appears in no apparent distress. uncomfortable, ill, Behavior is calm, ko1 cooperative, appropriate for age. Historical: - Allergies: 07:20 Haldol; pf1 07:20 Scopolamine HBr; pf1 - PMHx: 07:20 Gastroparesis; Irritable bowel syndrome; PTSD; pf1 - PSHx: 07:20 bilateral ureter attachment; Cholecystectomy; leep procedure; Lumpectomy of breast; pf1 right breast; - Immunization history:: Adult Immunizations up to date, Client reports receiving the 2nd dose of the Covid vaccine, Last tetanus immunization: > 10 years ago Flu vaccine is up to date. - Social history:: Smoking status: Reported history of juuling and/or vaping. Patient uses alcohol, occasionally. Patient/guardian denies using alcohol. Screenin:35 [facility] ED Fall Risk Assessment (Adult) Intoxicated or Sedated Yes (3 pts) Score/Fall dd1 Risk Level 3 or more points = High Risk Oriented to surroundings, Maintained a safe environment, Utilized family, sitter, or virtual perennial house manager as indicated. Abuse screen: Denies threats or abuse. Denies injuries from another. Nutritional screening: Has had N/V for 3 or more days. Tuberculosis screening: No symptoms or risk factors identified. Assessment: 07:35 Pain: Complains of pain in abdomen Pain does not radiate. Pain currently is 10 out of dd1 10 on a pain scale. Quality of pain is described as sharp, shooting, tender. GI: No deficits noted. Abdomen is flat, non-distended, Bowel sounds present in right lower quadrant and left lower quadrant Abdomen is tender to palpation in right lower quadrant and left lower quadrant. Vital Signs: 06:53 BP 139 / 95; Pulse 67; Resp 18; Temp 97.9; Pulse Ox 96% on R/A; Weight 61.23 kg; Height pf1 5 ft. 2 in. ; Pain 10/10; 07:35 BP 135 / 94; Pulse 60; Resp 18; Pulse Ox 94% ; Pain 10/10; dd1 08:01 Pain 9/10; dd1 10:19 BP 139 / 86; Pulse 66; Resp 14; Pulse Ox 99% ; ko1 11:14 BP 145 / 102; Pulse 86; Resp 17; Pulse Ox 98% ; dd1 12:22 BP 132 / 91; Pulse 87; Resp 16; Pulse Ox 99% ; ko1 13:22 BP 135 / 98; Pulse 82; Resp 16; Pulse Ox 97% ; ko1 06:53 Body Mass Index 24.69 (61.23 kg, 157.48 cm) pf1 06:53 Pain Scale: Adult pf1 07:35 Pain Scale: Adult dd1 08:01 Pain Scale: Adult dd1 ED Course: 06:39 Patient arrived in ED. am2 06:39 Kelton Daniels MD is Private Physician. am2 06:53 Alison Johnson, BRUCE is Primary Nurse. kd3 06:54 Brayan Terrell MD is Attending Physician. rt 07:20 Triage completed. pf1 07:35 Patient has correct armband on for positive identification. Bed in low position. Call dd1 light in reach. Side rails up X2. Adult w/ patient. 07:35 Inserted saline lock: 20 gauge in right antecubital area, using aseptic technique. dd1 08:00 Patient placed in an exam room, on a stretcher, on manager monitoring, on pulse oximetry, ko1 Patient notified of wait time. 10:19 Provided Education on: meds. Client placed on continuous cardiac and pulse oximetry ko1 monitoring. NIBP monitoring applied. patient monitor on. Door closed. Noise minimized. Warm blanket given. 13:07 Murray Ignacio MD is Hospitalizing Provider. rt 14:41 UDS Sent. dd1 14:41 UAM Sent. dd1 15:38 No provider procedures requiring assistance completed. Patient admitted, IV remains in ko1 place. Administered Medications: 07:34 Drug: metoCLOPramide IVP 10 mg Route: IVP; Site: right antecubital; dd1 07:34 Drug: diphenhydrAMINE IVP 25 mg Route: IVP; Site: right antecubital; dd1 07:34 Drug: Ativan IVP 1 mg Route: IVP; Site: right antecubital; dd1 07:34 Drug: Dicyclomine IM 20 mg Route: IM; Site: right deltoid; dd1 07:35 Drug: Ketorolac IVP 15 mg Route: IVP; Site: right antecubital; dd1 07:35 Drug: NS 0.9% IV 1000 ml Route: IV; Rate: 1 bolus; Site: right antecubital; dd1 09:00 Drug: Promethazine IVP 12.5 mg Route: IVP; Site: right antecubital; ko1 09:10 Not Given (Other Intervention Used): Ketamine IVP 0.5 mg/min IVP at 0.5 mg/min rt continuous; 100 mg in 100 ml NS 09:35 Drug: Ketamine IVP 0.5 mg/kg Route: IVP; Site: right antecubital; ko1 11:45 Drug: Ondansetron IVP 4 mg Route: IVP; Site: right antecubital; ko1 11:49 Drug: Promethazine IVP 12.5 mg Route: IVP; Site: right antecubital; ko1 Medication: 07:35 VIS not applicable for this client. dd1 Outcome: 13:07 Decision to Hospitalize by Provider. rt 16:04 Admitted to [facility]/surg accompanied by tech, via wheelchair, room 216, with chart. ko1 16:04 Condition: improved 16:04 Instructed on the need for admit, Demonstrated understanding of 16:04 Patient left the ED. ko1 Signatures: Dedra Matamoros Kyli, RN RN kd3 Rehana Lamb RN RN ko1 Brayan Terrell MD MD rt Kristen Cunningham RN RN pf1 Jose Elias Pratt RN RN dd1
--- NOTE | 2022-09-12 13:08 | EDPHYS ---
Physician Documentation [facility] Name: Efrem Pastor Age: 32 yrs Sex: Female : 1990 Arrival Date: 09/12/2022 Time: 06:38 Bed 5 Private MD: Kelton Daniels ED Physician Brayan Terrell HPI: 09/12 07:14 This 32 yrs old Female presents to ER via Unassigned with complaints of Abdominal Pain, rt Nausea/Vomiting. 07:14 Patient with history of gastroparesis presents to the ED with nausea, vomiting, rt generalized abdominal pain starting last night. Patient states that this is similar character to prior episodes of gastroparesis worsening character. Patient had a recent admission for the same. Denies other acute complaints, symptoms are moderate severity, no other aggravating alleviating factors.. Historical: - Allergies: 07:20 Haldol; pf1 07:20 Scopolamine HBr; pf1 - PMHx: 07:20 Gastroparesis; Irritable bowel syndrome; PTSD; pf1 - PSHx: 07:20 bilateral ureter attachment; Cholecystectomy; leep procedure; Lumpectomy of breast; pf1 right breast; - Immunization history:: Adult Immunizations up to date, Client reports receiving the 2nd dose of the Covid vaccine, Last tetanus immunization: > 10 years ago Flu vaccine is up to date. - Social history:: Smoking status: Reported history of juuling and/or vaping. Patient uses alcohol, occasionally. Patient/guardian denies using alcohol. ROS: 07:14 Constitutional: Negative for fever, chills, and weight loss, Neck: Negative for injury, rt pain, and swelling, Cardiovascular: Negative for chest pain, palpitations, and edema, Respiratory: Negative for shortness of breath, cough, wheezing, and pleuritic chest pain, MS/Extremity: Negative for injury and deformity, Skin: Negative for injury, rash, and discoloration, Neuro: Negative for headache, weakness, numbness, tingling, and seizure, Psych: Negative for depression, anxiety, suicide ideation, homicidal ideation, and hallucinations. 07:14 Abdomen/GI: Positive for abdominal pain, nausea and vomiting. Exam: 07:14 Constitutional: This is a well developed, well nourished patient who is awake, alert, rt and in no acute distress. Head/Face: Normocephalic, atraumatic. Chest/axilla: Normal chest wall appearance and motion. Nontender with no deformity. No lesions are appreciated. Cardiovascular: Regular rate and rhythm with a normal S1 and S2. No gallops, murmurs, or rubs. Normal PMI, no JVD. No pulse deficits. Respiratory: Lungs have equal breath sounds bilaterally, clear to auscultation and percussion. No rales, rhonchi or wheezes noted. No increased work of breathing, no retractions or nasal flaring. Skin: Warm, dry with normal turgor. Normal color with no rashes, no lesions, and no evidence of cellulitis. MS/ Extremity: Pulses equal, no cyanosis. Neurovascular intact. Full, normal range of motion. Neuro: Awake and alert, GCS 15, oriented to person, place, time, and situation. Cranial nerves II-XII grossly intact. Motor strength 5/5 in all extremities. Sensory grossly intact. Cerebellar exam normal. Normal gait. Psych: Awake, alert, with orientation to person, place and time. Behavior, mood, and affect are within normal limits. 07:14 Abdomen/GI: Mild tenderness diffusely without rebound, guarding, distention. Vital Signs: 06:53 BP 139 / 95; Pulse 67; Resp 18; Temp 97.9; Pulse Ox 96% on R/A; Weight 61.23 kg; Height pf1 5 ft. 2 in. ; Pain 10/10; 07:35 BP 135 / 94; Pulse 60; Resp 18; Pulse Ox 94% ; Pain 10/10; dd1 08:01 Pain 9/10; dd1 10:19 BP 139 / 86; Pulse 66; Resp 14; Pulse Ox 99% ; ko1 11:14 BP 145 / 102; Pulse 86; Resp 17; Pulse Ox 98% ; dd1 12:22 BP 132 / 91; Pulse 87; Resp 16; Pulse Ox 99% ; ko1 13:22 BP 135 / 98; Pulse 82; Resp 16; Pulse Ox 97% ; ko1 06:53 Body Mass Index 24.69 (61.23 kg, 157.48 cm) pf1 06:53 Pain Scale: Adult pf1 07:35 Pain Scale: Adult dd1 08:01 Pain Scale: Adult dd1 MDM: 06:57 Patient medically screened. rt 13:08 Differential diagnosis: gastroenteritis, gastroparesis. Data reviewed: vital signs, rt nurses notes, lab test result(s), radiologic studies. Consideration of Admission/Observation Patient was admitted/placed on observation. Management of patient was discussed with the following: Hospitalist: Agrees to admit. I considered the following discharge prescriptions or medication management in the emergency department Medications were administered in the Emergency Department. See MAR. Test considered but Not performed: CT: Patient's multiple CT scans including a recent negative scan, repeat imaging more likely to harm the patient the benefit. Care significantly affected by the following chronic conditions: Gastroparesis. Counseling: I had a detailed discussion with the patient and/or guardian regarding: the historical points, exam findings, and any diagnostic results supporting the discharge/admit diagnosis, lab results, the need for further work-up and treatment in the hospital. Response to treatment: the patient's symptoms have mildly improved after treatment. 09/12 07:04 Order name: CBC with Diff; Complete Time: 08:33 rt 09/12 07:04 Order name: CMP; Complete Time: 08:33 rt 09/12 07:04 Order name: Lipase; Complete Time: 08:33 rt 09/12 07:04 Order name: Test, Serum; Complete Time: 10:20 rt 09/12 07:04 Order name: UAM; Complete Time: 15:40 rt 09/12 13:20 Order name: UDS; Complete Time: 15:40 rt 09/12 14:04 Order name: Abdomen ; Complete Time: 15:40 EDMS Administered Medications: 07:34 Drug: metoCLOPramide IVP 10 mg Route: IVP; Site: right antecubital; dd1 07:34 Drug: diphenhydrAMINE IVP 25 mg Route: IVP; Site: right antecubital; dd1 07:34 Drug: Ativan IVP 1 mg Route: IVP; Site: right antecubital; dd1 07:34 Drug: Dicyclomine IM 20 mg Route: IM; Site: right deltoid; dd1 07:35 Drug: Ketorolac IVP 15 mg Route: IVP; Site: right antecubital; dd1 07:35 Drug: NS 0.9% IV 1000 ml Route: IV; Rate: 1 bolus; Site: right antecubital; dd1 09:00 Drug: Promethazine IVP 12.5 mg Route: IVP; Site: right antecubital; ko1 09:10 Not Given (Other Intervention Used): Ketamine IVP 0.5 mg/min IVP at 0.5 mg/min rt continuous; 100 mg in 100 ml NS 09:35 Drug: Ketamine IVP 0.5 mg/kg Route: IVP; Site: right antecubital; ko1 11:45 Drug: Ondansetron IVP 4 mg Route: IVP; Site: right antecubital; ko1 11:49 Drug: Promethazine IVP 12.5 mg Route: IVP; Site: right antecubital; ko1 Disposition Summary: 09/12/22 13:07 Hospitalization Ordered Hospitalization Status: Observation rt Provider: Murray Ignacio rt Location: Telemetry/MedSurg (observation) rt Condition: Stable rt Problem: an acute exacerbation rt Symptoms: are unchanged rt Bed/Room Type: Standard rt Room Assignment: 216(09/12/22 15:22) pietro Diagnosis - Gastroparesis rt - Intractable nausea and vomiting rt Forms: - Medication Reconciliation Form rt - SBAR form rt Signatures: Dispatcher [employer] EDMS Chas Jackson RN RN ja1 Rehana Lamb RN RN ko1 Brayan Terrell MD MD rt Kristen Cunningham RN RN pf1 Jose Elias Pratt RN RN dd1 Corrections: (The following items were deleted from the chart) 14:02 14:01 CT-ABD ordered. EDMS EDMS 15:22 13:07 rt pietro1
--- NOTE | 2022-09-12 13:55 | P.HP ---
Certification for Inpatient Patient admitted to: Observation With expected LOS: <2 Midnights Patient will require the following post-hospital care: None Practitioner: I am a practitioner with admitting privileges, knowledge of patient current condition, hospital course, and medical plan of care. Services: Services provided to patient in accordance with Admission requirements found in Title 42 Section 412.3 of the Code of Federal Regulations Patient History Date of Service: 09/12/22 Reason for admission: Abdominal Pain, Nausea/Vomiting History of Present Illness: Ms. Efrem Pastor is a 32 year old female with a past medical history significant for gastroparesis, irritable bowel syndrome, gastroesophageal reflux disease, anxiety, depression, and post-traumatic stress disorder who presents to the [facility] Emergency Department for intractable abdominal pain, nausea, and vomiting. She reports that, yesterday evening around 21:30-22:00, she developed significant abdominal pain, nausea, vomiting, and diarrhea. She states that earlier in the day, she was consuming alcohol and using marijuana. She localizes her abdominal pain to the mid-abdomen and describes it as stabbing. She grades it a 9/10 in severity. She has not tried taking any medication for her symptoms. She endorses having an issue with cannabinoid use and is currently seeking treatment at [facility]. On review of systems, she denies any fevers, chills, headaches, dizziness, syncope, weakness, chest pain, palpitations, shortness of breath, wheezing, cough, hematochezia, melena, dysuria, hematuria, myalgia, or any other symptoms. She presented to the Emergency Department for further evaluation. Upon presentation, her vital signs were stable. Her laboratory studies were stable. In the Emergency Department, she was given metoclopramide, diphenhydramine, lorazepam, dicyclomine, ketorolac, promethazine, ketamine, ondansetron, and 1 L normal saline. She was admitted to the General Internal Medicine service for further evaluation. Allergies scopolamine Allergy (Unknown, Verified 04/02/22 19:24) Itching/Hives/Rash haloperidol [From Haldol] Allergy (Verified 04/02/22 19:24) Itching/Hives/Rash Home Medications: Eszopiclone [Lunesta*] 3 mg PO BEDTIME 05/31/22 Pantoprazole Sodium [Protonix] 40 mg PO DAILY 05/31/22 Prochlorperazine [Compazine*] 5 mg PO Q8HP PRN #12 tab 06/01/22 Alprazolam [Xanax] 0.5 mg PO BID 08/12/22 - Past Medical/Surgical History Diabetic: No -: Gastroparesis -: Depression -: PTSD -: IBS -: Cholecystectomy -: LEEP -: Lumpectomy Psychosocial/ Personal History: Patient lives at home with her family. - Family History Father -: Hypertension Mother -: Diabetes - Social History Alcohol use: No CD- Drugs: Yes Caffeine use: Yes Review of Systems General: Unremarkable Eyes: Unremarkable ENT: Unremarkable Respiratory: Unremarkable Cardiovascular: Unremarkable Gastrointestinal: Nausea, Vomiting, Abdominal Pain, Diarrhea Genitourinary: Unremarkable Musculoskeletal: Unremarkable Integumentary: Unremarkable Neurological: Unremarkable Lymphatics: Unremarkable Physical Examination - Vital Signs Temperature: 97.9 F Blood Pressure: 132/91 Pulse: 87 Respirations: 16 Pulse Ox (%): 99 - Physical Exam General: Alert, Oriented x3, Mild distress HEENT: Atraumatic, Mucous membr. moist/pink, Sclerae nonicteric Neck: JVD not distended Respiratory: Clear to auscultation bilaterally, Normal air movement Cardiovascular: No edema, Regular rate/rhythm, Normal S1 S2, No gallops, No rubs, No murmurs Gastrointestinal: Normal bowel sounds, Soft and benign, Non-distended, No rebound, No guarding, Tenderness (generalized) Musculoskeletal: No clubbing Integumentary: No rashes Neurological: Normal speech, Normal affect - Studies Laboratory Data (last 24 hrs) 09/12/22 09/12/22 07:30 07:30 WBC 7.50 Hgb 12.9 Hct 39.7 Plt Count 299 Sodium 134 L Potassium 4.1 BUN 8 Creatinine 0.71 Glucose 147 H Total Bilirubin 0.4 AST 26 ALT 44 Alkaline Phosphatase 148 H Lipase 18 Assessment and Plan - Plan # Intractable Abdominal Pain/Nausea/Vomiting due to Cannabis Hyperemesis Syndrome and Gastroparesis # History of Irritable Bowel Syndrome # Substance Use Disorder - Cannabis # Gastroesophageal Reflux Disease - Evaluation thus far: - Lipase = 18 - CT abdomen requested - UDS = pending - Urine = negative - EKG requested for QTc interval monitoring - Management plan: - Gastroenterology unavailable for consultation - Stop metoclopramide due to prior history of tardive dyskinesa - Continue PRN ondansetron, promethazine, morphine - Continue dicyclomine, pantoprazole - NPO - advance diet as tolerated - Extensive counseling regarding substance use (THC) cessation # Anxiety # Depression # Post-Traumatic Stress Disorder - Continue home isabella Ignacio M.D. - Advance Directives Does patient have a Living Will: No Does patient have a Durable POA for Healthcare: No
[2022-09-12] MEDS ORDERED: PROMETHAZINE INJ 25 MG/ML AMP IV PRN (14:07)
[2022-09-12 14:58] LABS: Barbiturates NEGATIVE (NEGATIVE); Benzodiazepines POSITIVE (NEGATIVE); Cocaine NEGATIVE (NEGATIVE); METHAMPHETAM NEGATIVE (NEGATIVE); Methadone NEGATIVE (NEGATIVE); Opiates NEGATIVE (NEGATIVE); Phencyclidine NEGATIVE (NEGATIVE); THC Cannibis POSITIVE (NEGATIVE)
[2022-09-12 14:59] LABS: Specific Gravity 1.024 (1.005-1.030); Urine Bacteria None Seen /HPF (<20); Urine Bilirubin NEGATIVE (Negative); Urine Blood 1+ (Negative); Urine Clarity Clear (Clear); Urine Color Light-Yellow (Yellow); Urine Crystals Unidentified Few /HPF (None Seen); Urine Glucose NEGATIVE (Negative); Urine Mucus Slight /HPF (None Seen); Urine Protein 1+ (Negative); Urine Urobilinogen Normal (Normal)
--- NOTE | 2022-09-12 15:18 | RAD REPORT ---
EXAM DESCRIPTION: CT - Abdomen Pelvis Wo Contrast - 09/12/2022 2:26 pm CLINICAL HISTORY: Abdominal pain COMPARISON: August 12, 2022 TECHNIQUE: Computed axial tomography of the abdomen and pelvis was obtained. IV and oral contrast we re not requested. All CT scans are performed using dose optimization technique as appropriate and may include automated exposure control or mA/KV adjustment according to patient size. FINDINGS: The evaluation of solid organs, vessels and bowel is limited secondary to the lack of con trast administration. Liver, spleen, pancreas, adrenals and left kidney grossly normal. Tiny parenchymal right renal calcification. Hydronephrosis. Cholecystectomy. No evidence of diverticulitis. No adnexal mass IMPRESSION: No acute abnormality is displayed.
[2022-09-12 16:51] VITALS: O2SAT 97
[2022-09-12] MEDS: ENOXAPARIN 40 MG/0.4 ML SQ SCH (17:17)
[2022-09-12] MEDS: MORPHINE 2 MG/ML SYR IV PRN ×2 (17:58→22:16)
[2022-09-12] MEDS: ONDANSETRON 4 MG/2 ML VIAL IV PRN (17:59)
[2022-09-12] MEDS: Ringers Lactate 1,000 ML IV SCH (19:57)
[2022-09-12] MEDS: ALPRAZOLAM 0.5 MG TABLET PO SCH (20:05)
[2022-09-12] MEDS: DICYCLOMINE HCL 10 MG CAP PO SCH (20:05)
[2022-09-12] MEDS ORDERED: ESZOPICLONE 1 MG TAB PO SCH (21:00)
[2022-09-12] MEDS ORDERED: PARoxetine HCL 10 MG TAB PO SCH (21:00)
[2022-09-13] MEDS: Ringers Lactate 1,000 ML IV SCH (03:19)
[2022-09-13] MEDS: ONDANSETRON 4 MG/2 ML VIAL IV PRN ×2 (03:26→17:29)
[2022-09-13 04:50] LABS: Magnesium 1.9 mg/dL (1.6-2.4); Potassium 3.4 mEq/L (3.5-5.1)
[2022-09-13] MEDS: MORPHINE 2 MG/ML SYR IV PRN ×3 (05:18→14:22)
[2022-09-13] MEDS: ALPRAZOLAM 0.5 MG TABLET PO SCH (08:15)
[2022-09-13] MEDS: DICYCLOMINE HCL 10 MG CAP PO SCH ×2 (08:15→13:26)
[2022-09-13] MEDS: ENOXAPARIN 40 MG/0.4 ML SQ SCH (08:16)
[2022-09-13] MEDS ORDERED: PANTOPRAZOLE 40MG TABLET PO SCH (09:00)
[2022-09-13 09:38] LABS: Renal Epithelial <5 /HPF (None Seen); Specific Gravity 1.019 (1.005-1.030); Urine Bacteria None Seen /HPF (<20); Urine Bilirubin NEGATIVE (Negative); Urine Blood Trace (Negative); Urine Clarity Extremely Turbid (Clear); Urine Color Yellow (Yellow); Urine Glucose NEGATIVE (Negative); Urine Mucus 2+ /HPF (None Seen); Urine Protein TRACE (Negative); Urine RBC <5 /HPF (None Seen); Urine Urobilinogen Normal (Normal); Urine pH 6.5 (5.0-7.0)
[2022-09-13] MEDS ORDERED: Ringers Lactate 1,000 ML IV SCH (11:17)
[2022-09-13 14:45] VITALS: BMI 24.5
[2022-09-13 16:15] VITALS: BP 118/75; TEMP 98.9
[2022-09-13 16:34] LABS: Specific Gravity 1.015 (1.005-1.030); Urine Bilirubin Negative (Negative); Urine Blood Trace-lysed (Negative); Urine Clarity Clear (Clear); Urine Color Yellow (Yellow); Urine Glucose Negative (Negative); Urine Protein Negative (Negative); Urine Urobilinogen 0.2 mg/dL (0.2-1.0)
[2022-09-13 16:36] LABS: Urine Bacteria None Seen /HPF (<20); Urine Mucus Slight /HPF (None Seen); Urine RBC <5 /HPF (None Seen)
--- NOTE | 2022-09-13 16:56 | P.DS ---
Admission Date: 09/12/22 Discharge Date: 09/13/22 Disposition: ROUTINE DISCHARGE Discharge Condition: GOOD Reason for Admission: Abdominal Pain, Nausea/Vomiting Hospital Course: DIAGNOSES: # Intractable Abdominal Pain/Nausea/Vomiting due to Cannabis Hyperemesis Syndrome and Gastroparesis # History of Irritable Bowel Syndrome # Substance Use Disorder - Cannabis # Gastroesophageal Reflux Disease # Anxiety # Depression # Post-Traumatic Stress Disorder HOSPITAL COURSE: Ms. Efrem Pastor is a 32 year old female with a past medical history significant for gastroparesis, irritable bowel syndrome, gastroesophageal reflux disease, anxiety, depression, and post-traumatic stress disorder who was admitted to the [facility] on 09/12/2022 for intractable abdominal pain, nausea, and vomiting. She was admitted to the Medicine service. Upon further evaluation, her CT abdomen/pelvis revealed, "no acute abnormality is displayed." She was placed NPO and treated with anti-emetics. Over the course of her hospitalization, her diet was advanced and her symptoms improved significantly. Today, she stated that she felt significantly better and would like to be discharged home. She was counseled extensively on the need for cannabis cessation and she stated that she is currently following with [facility]. On 09/13/2022, she was seen on rounds and deemed medically stable for discharge. She was discharged with instructions to schedule follow-up appointments with her PCP (Dr. Daniels), with her Communications Officer (Dr. Wen), and with the [facility]. She was given the opportunity to ask questions and reported no further questions. Furthermore, all questions were answered to the best of my ability. A copy of this discharge summary will be sent to the above providers to facilitate continuity of care. Today, I personally spent 20 minutes on her case, of which greater than 50% of the time was spent in patient education, counseling, and coordination of care as described above. - Physical Exam General: Alert, Oriented x3, No distress HEENT: Atraumatic, Mucous membr. moist/pink, Sclerae nonicteric Respiratory: Clear to auscultation bilaterally, Normal air movement Cardiovascular: No edema, Regular rate/rhythm, No murmurs Gastrointestinal: Normal bowel sounds, Soft and benign, Non-distended, No rebound, No guarding, No tenderness Integumentary: No rashes Neurological: Normal speech, Normal affect Vital Signs/Physical Exam: Temp Pulse Resp BP Pulse Ox 98.9 F 86 16 118/75 97 09/13/22 16:00 09/13/22 16:00 09/13/22 16:00 09/13/22 16:00 09/13/22 16:00 Laboratory Data at Discharge: WBC 7.50 thou/uL (4.3-10.9) 09/12/22 07:30 Hgb 12.9 g/dL (12.0-15.0) 09/12/22 07:30 Hct 39.7 % (36.0-45.0) 09/12/22 07:30 Plt Count 299 thou/uL (152-406) 09/12/22 07:30 Sodium 138 mEq/L (136-145) 09/13/22 03:14 Potassium 3.4 mEq/L (3.5-5.1) L D 09/13/22 03:14 BUN 11 mg/dL (7-18) 09/13/22 03:14 Creatinine 0.58 mg/dL (0.55-1.02) 09/13/22 03:14 Glucose 85 mg/dL (74-106) 09/13/22 03:14 Magnesium 1.9 mg/dL (1.6-2.4) 09/13/22 03:14 Total Bilirubin 0.4 mg/dL (0.2-1.0) 09/12/22 07:30 AST 26 U/L (15-37) 09/12/22 07:30 ALT 44 U/L (13-56) 09/12/22 07:30 Alkaline Phosphatase 148 U/L (45-117) H 09/12/22 07:30 Lipase 18 U/L (13-75) 09/12/22 07:30 Home Medications: RX: Eszopiclone [Lunesta*] 3 mg PO BEDTIME 05/31/22 RX: Prochlorperazine [Compazine*] 5 mg PO Q8HP PRN #12 tab 06/01/22 RX: Alprazolam [Xanax] 0.5 mg PO BID 08/12/22 RX: Brexpiprazole [Rexulti] 2 mg PO DAILY 09/12/22 RX: PARoxetine HCL [Paxil] 40 mg PO BEDTIME 09/12/22 Physician Discharge Instructions: 1. Please call and schedule a follow-up appointment with your PCP (Dr. Daniels) in 3-5 days 2. Please call and schedule a follow-up appointment with Gastroenterology (Dr. Wen) in 3-5 days 3. Please call and schedule a follow-up appointment with [facility] in 3-5 days Diet: Regular Activity: Ad erin Followup: Kelton Daniels MD [Primary Care Provider] - Luis Wen MD [ASSOCIATE-ACTIVE - CAN ADMIT] - Time spent managing pt's care (in minutes): 20
[2022-09-13] MEDS ORDERED: POTASSIUM 25 MEQ EFFERV TAB PO ONE (16:57)
[2022-09-13] MEDS ORDERED: POTASSIUM 25 MEQ EFFERV TAB ONE (17:09)
== END 2022-09-13 18:02 | disposition home or self-care (01) ==
LOC: ER 06:38 → ERHOLD 14:00 → 2ND 15:34
PROVIDERS: ADMIT Internal Medicine; ATTEND Internal Medicine
DX: K31.84 Gastroparesis (principal); F12.288 Cannabis dependence with other cannabis-induced disorder; R11.2 Nausea with vomiting, unspecified; F10.90 Alcohol use, unspecified, uncomplicated; K58.9 Irritable bowel syndrome, unspecified; K21.9 Gastro-esophageal reflux disease without esophagitis; F41.9 Anxiety disorder, unspecified; F32.A Depression, unspecified; F43.10 Post-traumatic stress disorder, unspecified; Z88.8 Allergy status to other drugs, medicaments and biological substances
CPT/HCPCS: 87088; 85025; 81001 ×2; 87086; 80048; 36415; 83735; 84703; 83690; 80053; 80307; 74176; 96375; 96372; 96374; 99285; J2550 ×3; J2765; J0500; J1200; J1650; J2270 ×5; J2405 ×4; J7120 ×3; J7030; 81003; 81015

== ENCOUNTER 2022-10-04 02:56 | Emergency (ER) | payer BC ==
--- OUTSIDE RECORDS SUMMARY | 2022-10-04 03:00 | XMS REPORT | Continuity of Care Document ---
:1990 Author Organization [facility] t Address [address] [facility] [address] [place] [address] Care Team Providers Name Role Phone Ted [...] Clinician haloperi DA Active SV HIVES [facility] dol 5-03 [facility] scopolam DA Active [facility]03 [facility] 00:[facility] No Known DA Active U [facility] Allergie 1- [facility] 00:[facility] No Known DA Active U [facility] Allergie -16 [facility] 00:[facility] No Known DA Active U [facility] Allergie 5-16 [facility] 00:[facility] scopolam DA Active [place] 2020- [facility] 4[facility]10 [facility] 00:[facility] scopolam DA Active [place] RASH-HIVES [facility] ine 4-10 [facility] 00:00: [facility] No Known DA Active U [facility] Allergie 6-20 [facility] s 00:00: [facility] No Known DA Active U [facility] Allergie 6-20 [facility] 00:[facility]: [facility] No Known DA Active U [facility] Drug 9-15 [facility] Intolera 00:00: [facility]a nces 00 l Hospita [facility] No Known DA Active U NONE [facility] Drug 9-15 [facility] Intolera 00:00: [facility] nc [facility] Medications This patient has no known medications. Procedures This patient has no known procedures. Encounters Start End Encounter Admission Attending Care Care Encounter Source Date/Time Date/Time Type Type Clinicians Facility Department ID 2020-06-24 Inpatient [facility] [id number] [facility] 15:53[facility]22 [facility] 2020-05-19 Inpatient [facility] [id number] [facility] 11:42:02 19 [facility] 2019-07-30 Inpatient [facility] ER [id number] [facility] 21:08:00 63 [facility] 2022-06-11 2022-06-11 Emergency EM Schultz, [facility] ER [id number] [facility] 11:10:00 12:41:00 Ted [facility] 2021-02-09 2021-02-10 Emergency EM Peguero, [facility] ER [id number] [facility] 23:10:00 00:19:00 Kaelyn 49 [facility] [...] Suprapubic PainURINE SOURCE: CLEAN CATCH URINEUR HCG [id number] 11:54:00 Test Item Value Reference Range Interpretation Comments UR HCG QUAL (test code = HCGQLU) NEGATIVE NEGATIVE Indication for culture: Suprapubic PainURINE SOURCE: CLEAN CATCH URINE COMPREHENSIVE METABOLIC [id number] 11:49:00 Test Item Value Reference Range Interpretation [...] the recommended for allison for GFRby the Nat nal Kidney Foundati on for Adults.The GFR [...] 45-117 N TOTAL (test code = ALKP) [id number] 11:49:00 Test Item Value Reference Range Interpretation Comments AMYLASE (test code = PARAM) 73 IU/L 25-115 N [id number] 11:49:00 Test Item Value Reference Range Interpretation Comments LIPASE (test code = LIP) 134 U/L 73-393 N CBC W/AUTO [id number] 11:33:00 Test Item Value Reference Range Interpretation [...] NO NORMAL code = RBCM) COMPREHENSIVE METABOLIC [id number] 16:11:00 Test Item Value Reference Range Interpretation [...] RESULT BY1.21. [Automated mess age] The system Rexly generated this result transmitted ref erence range: [...] 45-117 H TOTAL (test code = ALKP) [id number] 16:11:00 Test Item Value Reference Range Interpretation Comments LIPASE (test code = LIP) 108 U/L 73-393 N URINALYSIS W REFLEX [id number] 16:05:00 Test Item Value Reference Range Interpretation [...] UA MICRO code = UAMICRO) UR HCG [id number] 16:05:00 Test Item Value Reference Range Interpretation Comments UR HCG QUAL (test code = HCGQLU) NEGATIVE NEGATIVE URINALYSIS W REFLEX [id number] 16:05:00 Test Item Value Reference Range Interpretation [...] DO UA MICRO code = UAMICRO) UA [id number] 16:05:00 Test Item Value Reference Range Interpretation Comments UA WBC (test code = WBCU) 0-2 #/hpf 0-5 UA RBC (test code = RBCU) 0-2 #/hpf 0-5 UA EPITHELIAL CELLS (test code = 2+ /hpf NEG,FEW A EPIU) UA BACTERIA (test code = BACU) FEW /hpf NEGATIVE A UA AMORPHOUS SEDIMENT (test code = FEW /hpf NEG,FEW AMORU) UR HCG [id number] 16:05:00 Test Item Value Reference Range Interpretation Comments UR HCG QUAL (test code = HCGQLU) NEGATIVE NEGATIVE URINALYSIS W REFLEX [id number] 16:05:00 Test Item Value Reference Range Interpretation [...] UA MICRO code = UAMICRO) UR HCG [id number] 16:05:00 Test Item Value Reference Range Interpretation Comments UR HCG QUAL (test code = HCGQLU) NEGATIVE NEGATIVE DRUGS OF ABUSE [id number] 16:01:00 Test Item Value Reference Range Interpretation [...] code = WAS TESTE D AT THE [facility]) LISTED CUTOFFS DRUG CLASS INIT IAL TEST LEVEL AMPHETAMINES 10 00 NG/MLBARBITURAT ES 200 NG/MLBENZODIAZE PIN ES 200 NG/MLCOCAINE METABOLITE 300 NG/MLMARIJUANA METABOLITE 50 NG/MLOPIATES 3 00 NG/MLPHENCYCLID INE 25 NG/ML URINALYSIS W REFLEX [id number] 15:58:00 Test Item Value Reference Range Interpretation [...] NEEDED? (test code = UAMICRO) UR HCG [id number] 15:58:00 Test Item Value Reference Range Interpretation Comments UR HCG QUAL (test code = HCGQLU) NEGATIVE NEGATIVE CBC W/AUTO [id number] 15:52:00 Test Item Value Reference Range Interpretation [...] NORMAL code = RBCM) URINALYSIS W REFLEX [id number] 13:00:00 Test Item Value Reference Range Interpretation [...] MICRO code = UAMICRO) UA ICTOTEST FOR [id number] 13:00:00 Test Item Value Reference Range Interpretation Comments UA ICTOTEST FOR BILIRUBIN (test code POSITIVE NEGATIVE A = ICTOU) UA [id number] 13:00:00 Test Item Value Reference Range Interpretation Comments UA WBC (test code = WBCU) 0-2 #/hpf 0-5 UA RBC (test code = RBCU) 3-5 #/hpf 0-5 UA EPITHELIAL CELLS (test code = FEW /hpf NEG,FEW EPIU) UA BACTERIA (test code = BACU) FEW /hpf NEGATIVE A UA MUCUS (test code = MUCU) 1+ /hpf NEG,FEW A UR HCG [id number] 13:00:00 Test Item Value Reference Range Interpretation Comments UR HCG QUAL (test code = HCGQLU) NEGATIVE NEGATIVE DRUGS OF ABUSE [id number] 12:57:00 Test Item Value Reference Range Interpretation [...] code = WAS TESTE D AT THE [facility]) LISTED CUTOFFS DRUG CLASS INIT IAL TEST LEVEL AMPHETAMINES 10 00 NG/MLBARBITURAT ES 200 NG/MLBENZODIAZE PIN ES 200 NG/MLCOCAINE METABOLITE 300 NG/MLMARIJUANA METABOLITE 50 NG/MLOPIATES 30 0 NG/MLPHENCYCLID INE 25 NG/ML URINALYSIS W REFLEX [id number] 12:56:00 Test Item Value Reference Range Interpretation [...] MICRO code = UAMICRO) UA ICTOTEST FOR [id number] 12:56:00 Test Item Value Reference Range Interpretation Comments UA ICTOTEST FOR BILIRUBIN (test code POSITIVE NEGATIVE A = ICTOU) UR HCG [id number] 12:56:00 Test Item Value Reference Range Interpretation Comments UR HCG QUAL (test code = HCGQLU) NEGATIVE NEGATIVE URINALYSIS W REFLEX [id number] 12:53:00 Test Item Value Reference Range Interpretation [...] UA MICRO code = UAMICRO) UR HCG [id number] 12:53:00 Test Item Value Reference Range Interpretation Comments UR HCG QUAL (test code = HCGQLU) NEGATIVE NEGATIVE URINALYSIS W REFLEX [id number] 12:53:00 Test Item Value Reference Range Interpretation [...] UA MICRO code = UAMICRO) UR HCG [id number] 12:53:00 Test Item Value Reference Range Interpretation Comments UR HCG QUAL (test code = HCGQLU) NEGATIVE NEGATIVE - XR ABDOMEN [id number] 12:16:00 [facility] : 1990 Sex: F FAX: Sawyer Centeno II [place]: St: PRE Name: BREANNA QUEEN [place] FSED : 1990 Age/S: 30/F [address] Unit #: [id number] Loc: [place] [address] Phys: Sawyer Centeno II, MD Acct: [id number] Dis Date: Status: PRE ER PHONE #: Exam Date: 05/19/2020 1212 FAX #: Reason: abdominal pain EXAMS: CPT CODE: [id number] XR ABDOMEN 2V 03360 - XR ABDOMEN 2V PROVIDED REASON FOR EXAM: abdominal pain COMPARISON: None available. FINDINGS: Bowel gas pattern is non-obstructive. No abnormal calcifications or soft tissue masses. No acute fracture or subluxation. Regional soft tissues are unremarkable. Surgical clipsof the right upper abdomen. Relative paucity of bowel gas. IMPRESSION: No acute process. Location: V20 at 1216 Reported and signed by: DEVANTE CABALLERO M.D. CC: Technologist: RT Bekah (R) CT Trnscrd Date/Time/By: 05/19/2020 (5048) : By: [email or web address] Orig Print D/T: S: 05/19/2020 (3329) PAGE 1 Signed ReportBASIC METABOLIC PANEL 2020-05-19 [...] RESULT BY1.21. [Automated mess age] The system Rexly generated this result transmitted ref erence range: >=60. Th e reference range was not used to int erpret this result as normal/abnormal . CREATININE (test code 0.64 mg/dl 0.55-1.02 N = CREAT) CALCIUM (test code = 9.8 mg/dL 8.5-10.1 N CA) LIVER [id number] 12:08:00 Test Item Value Reference Range Interpretation [...] 119 U/L 45-117 H code = ALKP) [id number] 12:08:00 Test Item Value Reference Range Interpretation Comments LIPASE (test code = LIP) 67 U/L 73-393 L CBC W/AUTO [id number] 11:43:00 Test Item Value Reference Range Interpretation [...] NORMAL code = RBCM) URINALYSIS W REFLEX [id number] 22:06:00 Test Item Value Reference Range Interpretation [...] MUCU) 2+ /hpf NEG,FEW A BASIC METABOLIC [id number] 21:54:00 Test Item Value Reference Range Interpretation [...] = 9.3 mg/dL 8.5-10.1 N CA) LIVER [id number] 21:54:00 Test Item Value Reference Range Interpretation [...] 69 U/L 50-136 N code = ALKP) [id number] 21:54:00 Test Item Value Reference Range Interpretation Comments LIPASE (test code = LIP) 63 U/L 73-393 L BASIC METABOLIC [id number] 21:53:00 Test Item Value Reference Range Interpretation [...] = 9.3 mg/dL 8.5-10.1 N CA) LIVER [id number] 21:53:00 Test Item Value Reference Range Interpretation [...] TOTAL (test U/L 50-136 code = ALKP) [id number] 21:53:00 Test Item Value Reference Range Interpretation Comments LIPASE (test code = LIP) 63 U/L 73-393 L BASIC METABOLIC [id number] 21:52:00 Test Item Value Reference Range Interpretation [...] = 9.3 mg/dL 8.5-10.1 N CA) LIVER [id number] 21:52:00 Test Item Value Reference Range Interpretation [...] TOTAL (test U/L 50-136 code = ALKP) [id number] 21:52:00 Test Item Value Reference Range Interpretation Comments LIPASE (test code = LIP) 63 U/L 73-393 L BASIC METABOLIC [id number] 21:51:00 Test Item Value Reference Range Interpretation [...] = 9.3 mg/dL 8.5-10.1 N CA) LIVER [id number] 21:51:00 Test Item Value Reference Range Interpretation [...] TOTAL (test U/L 50-136 code = ALKP) [id number] 21:51:00 Test Item Value Reference Range Interpretation Comments LIPASE (test code = LIP) 63 U/L 73-393 L BASIC METABOLIC [id number] 21:49:00 Test Item Value Reference Range Interpretation [...] = CA) 9.3 mg/dL 8.5-10.1 N LIVER [id number] 21:49:00 Test Item Value Reference Range Interpretation [...] TOTAL (test U/L 50-136 code = ALKP) [id number] 21:49:00 Test Item Value Reference Range Interpretation Comments LIPASE (test code = LIP) 63 U/L 73-393 L BASIC METABOLIC [id number] 21:48:00 Test Item Value Reference Range Interpretation [...] = CA) 9.3 mg/dL 8.5-10.1 N LIVER [id number] 21:48:00 Test Item Value Reference Range Interpretation Comments TOTAL PROTEIN (test code = PROT) g/dl 6.4-8.2 ALBUMIN (test code = ALB) g/dl 3.4-5.0 BILIRUBIN TOTAL (test code = BILT) mg/dl 0.2-1.0 BILIRUBIN DIRECT (test code = BILD) mg/dl 0.0-0.4 SGOT/AST (test code = AST) U/L 15-37 SGPT/ALT (test code = ALT) U/L 12-78 ALKALINE PHOSPHATASE TOTAL (test code U/L 50-136 = ALKP) [id number] 21:48:00 Test Item Value Reference Range Interpretation Comments LIPASE (test code = LIP) U/L 73-393 BASIC METABOLIC [id number] 21:46:00 Test Item Value Reference Range Interpretation [...] (test code = CA) mg/dL 8.5-10.1 LIVER [id number] 21:46:00 Test Item Value Reference Range Interpretation Comments TOTAL PROTEIN (test code = PROT) g/dl 6.4-8.2 ALBUMIN (test code = ALB) g/dl 3.4-5.0 BILIRUBIN TOTAL (test code = BILT) mg/dl 0.2-1.0 BILIRUBIN DIRECT (test code = BILD) mg/dl 0.0-0.4 SGOT/AST (test code = AST) U/L 15-37 SGPT/ALT (test code = ALT) U/L 12-78 ALKALINE PHOSPHATASE TOTAL (test code U/L 50-136 = ALKP) [id number] 21:46:00 Test Item Value Reference Range Interpretation Comments LIPASE (test code = LIP) U/L 73-393 CBC W/AUTO [id number] 21:43:00 Test Item Value Reference Range Interpretation [...] Notes Date/Time Note Provider Source 2022-06-11 11:33:00-00:00 [facility] ([facility]) EMERGENCY PROVIDER REPORT REPORT#:[id number] REPORT STATUS: Signed DATE:06/11/22 TIME: 1133 PATIENT: BREANNA JIMENEZ UNIT #: [id number] ROOM/BED: AGE: 32 SEX: F PCP PHYS: Undefined Provider SERVICE AUTHOR: Ted Schultz MD * ALL edits or amendments must be made on the el Life800/computer document * HPI-Nausea/Vomit/Diarrhea General Confirmed Patient Yes [...] Surgical History bilateral ureter reattachment 1997 LEEP 2017 Botox injection to pylorus Alcohol Use Alcohol use (occasional) Drug Use Marijuana Smoking status for patients 13 years old or olde r: Never Smoker Physical Exam Vital Signs Vital Signs First Documented: Result Date Time Pulse Ox 99 06/11 1113 B/P 156/96 05 1113 B/P Mean 116 / 1113 O2 Delivery Room air 06/11 1113 Pulse 70 05/ 1113 Resp 18 / 1113 Temp 36.3 05/ 1206 Last Documented: Result Date Time Pulse Ox 100 06/11 1206 B/P 124/78 05/ 1206 B/P Mean 93 05 1206 Temp 36.3 05/ 1206 Pulse 77 05/ 1206 Resp 16 [...] % (Auto) (16 - 50 %) 22.9 [place] % (Auto) (0.0 - 13.0 %) 9.8 [...] pH (4.6 - 8.0) 7.0 Ur Specific Ronald (1.001 - 1.035) 1.020 Urine Protein (NEGATIVE [...] yesterday. After discussion patient states was at [facility] yesterday and was prescribed compazine/reglan after blood work and CT scan were unremarkable. Re-Evaluation/Progress #1 Time of Re-Eval 1157 Re-Eval Status Improved ED Course Medication(s) Ordered Medication(s) Ordered: Central Nervous System Agents Sig/Ayanna Start time Last Medication Dose Route Stop Time Status Admin Morphine Sulfate 4 MG X1ED STA 06/11 1129 DCr 0 5/03 IV 05/ 1130 1132 Electrolytic, Caloric, And Elvia Sig/Ayanna Start time Last Medication Dose Route Stop Time Status Admin Sodium Chloride 1,000 ML X1ED STA 06/11 1141 DC 05/03 IV 05/ 1240 1155 Sodium Chloride 1,000 ML X1ED STA 06/11 1118 DC 05/03 IV 05/ 1217 1123 Gastrointestinal Drugs Sig/Ayanna Start time Last Medication Dose Route Stop Time Status Admin Prochlorperazine 5 MG X1ED STA 06/11 1118 DC 05 /03 Edisylate IV 06/11 1119 1124 Patient Discharge Departure Vital Signs/Condition Vital Signs First Documented: Result Date Time Pulse Ox 99 06/11 1113 B/P 156/96 / 1113 B/P Mean 116 06/11 1113 O2 Delivery Room air 06/11 1113 Pulse 70 06/11 1113 Resp 18 06/11 1113 Temp 36.3 06/11 1206 Last Documented: Result Date Time Pulse Ox 100 06/11 1206 B/P 124/78 05/ 1206 B/P Mean 93 06/11 1206 Temp [...] Instructions Schedule a follow-up appointment with your [facility] Care Provider Discharge Note I have spoken [...] symptoms should prompt an immediate return to [facility] or the closest emergency department or a call to 911. Electronically Signed by Ted Schultz MD on at 1245 [facility] #:[id number] END OF REPORT 2021-02-09 23:43:00-00:00 [facility] ([facility]) EMERGENCY PROVIDER REPORT REPORT#:[id number] REPORT STATUS: Signed DATE:02/09/21 TIME: 2343 PATIENT: BREANNA JIMENEZ UNIT #: [id number] ROOM/BED: AGE: 30 SEX: F PCP PHYS: No Primary or Family Ph ysician SERVICE AUTHOR: Kaelyn Peguero MD * ALL edits or amendments must be made on the Stereotypes/Halldis document * LFX-Usc-Eajj Illness General Confirmed Patient Yes Patient Type New patient Initial Greet Date/Time 02/09/21 2312 Presentation Chief Complaint Body aches, Chills, Cough Free Text HPI Notes Free Text HPI Notes 30-year-old female comes [facility] complaining of cough, body aches, chills , that began 2 days ago. Patient has been travel ing in [facility] and apparently although she has [...] Surgical History bilateral ureter reattachment 1997 LEEP 2017 Botox injection to pylorus Alcohol Use [...] Ox 100 02/09 231 B/P 110/74 02/09 231 B/P Mean 86 02/09 231 O2 Delivery Room air 02/09 2310 Temp 37.4 02/09 231 Pulse 78 02/09 231 Resp 18 02/09 2311 Last Documented: Result Date Time Pulse Ox 100 02/09 231 B/P 110/74 02/09 2311 B/P Mean 86 02/09 231 O2 Delivery Room air 02/09 2310 Temp 37.4 02/09 2311 Pulse 78 02/09 2310 Resp 18 02/09 231 All vital signs [...] Peguero MD on 04/02 at 0652 RPT #:[id number] END OF REPORT 2020-06-24 15:35:00-00:00 [facility] ([facility]) EMERGENCY PROVIDER REPORT REPORT#:[id number] REPORT STATUS: Signed DATE:06/24/20 TIME: 1534 PATIENT: BREANNA JIMENEZ UNIT #: [id number] ROOM/BED: AGE: 30 SEX: F PCP PHYS: No Primary or Family P hysician SERVICE AUTHOR: Maicol Coy MD * ALL edits or amendments must be made on the Stereotypes/computer document * HPI-Abd Pain F Under 40 General Initial Greet Date/Time 06/24/[address] Winn in [place], [place] Presentation Chief Complaint Abdominal pain, Nausea, [...] N/V x 6. She is visiting from [place]. Risk-Abd Pain F Under 40 )( Ectopic [...] % (Auto) (16 - 50 %) 48.2 [place] % (Auto) (0.0 - 13.0 %) 13.0 [...] pH (4.6 - 8.0) 7.0 Ur Specific Ronald (1.001 - 1.035) 1.020 Urine Protein (NEGATIVE [...] Statement Laboratory studies reviewed and considered in e medical decision-making. Re-Evaluation [facility] )( Re-Evaluation/Progress #1 Text/Dict Note Pt states her episode is res olved and is happy in room with her . Her HR is 80's, so she d/n have 2 SIRS criteria. Time of Re-Eval 1647 )( Re-Eval Status Improved, Resolved Abd Pain MDM Note F < 40 The patient is resting comfortably and feels bet ter, is alert and in no distress. The repeat examination is unremarkable and benign; in particular, there is no discomfort at McBurney's point. The history, exam, diagnostic testing, and current condition do not suggest ac native appendicitis, bowel obstruction, tubovarian abscess, ectopic pregnan [...] will pursue further outpatient evaluation with the [facility] care physician or other designated or [...] 10 MG X1ED STA 06/24 1535 DC / IV 06/24 1536 1552 Differential Diagnosis Ruled [...] symptoms should prompt an immediate return to [facility] or the closest emergency department or a call to 911. Quality Measures BP F/U for HTN Referred for BP f/u < 4wk, F/u wi PCP/other doc Preg Test for Women w/Abd [...] MD on 06/09 07/30 at 2053 RPT #:[id number] END OF REPORT 2020-05-19 12:11:00-00:00 [facility] ([facility]) EMERGENCY PROVIDER REPORT REPORT#:[id number] REPORT STATUS: Signed DATE:05/19/20 TIME: 1211 PATIENT: BREANNA QUEEN UNIT #: [id number] ROOM/BED: AGE: 30 SEX: F PCP PHYS: Brayan Winn MD SERVICE AUTHOR: Sawyer Centeno II, MD * ALL edits or amendments must be made on the el Life800/computer document * HPI-Abd Pain F Under 40 Free Text HPI Notes Free Text HPI Notes The patient tells me she has a history o f gastroparesis but is not a diabetic. She tells me that she is [facility] and that she has GI specialist in [place] whose name is Dr. Hendrix. She tells me she used to get Botox injections in her pilorus to treat her pain. She tells me she went to a local hospital yesterday and got s everal medications for pain but the pain did not get any better. General Confirmed Patient Yes Initial Greet Date/Time 05/19/20 1129 PCP In [facility] Presentation Chief Complaint Abdominal pain Hx Obtained [...] 1128 Pulse 84 05/19 1128 Resp 18 05/20 1127 Last Documented: Result Date Time Pulse Ox 98 05/19 1128 B/P 158/101 05/19 1128 B/P Mean 120 05/19 1128 Temp 36.9 05/19 1128 Pulse 84 05/19 1128 Resp 18 05/198 [...] pH (4.6 - 8.0) 6.0 Ur Specific Ronald (1.001 - 1.035) >= 1.030 Urine Protein [...] (Auto) (16 - 50 %) 9.5 L [place] % (Auto) (0.0 - 13.0 %) 4.3 [...] Recent Impressions: RADIOLOGY - XR ABDOMEN 2V 05/19 1212 Report Impression - Status: SIGNED Entered: 05/19/20201218 IMPRESSION: No acute process. Location: V20 Impression [...] 5 MG X1ED STA 05/19 1212 DC 05/19 IV 05/19 1213 1240 Patient Discharge Departure Vital Signs/Condition Vital Signs First Documented: Result Date Time Pulse Ox 98 05/19 1128 B/P 158/101 05/19 1128 B/P Mean 120 05/19 1128 Temp 36.9 05/19 1128 Pulse 84 05/19 1128 Resp 18 05/19 1128 Last Documented: Result Date Time Pulse Ox 98 05/19 1128 B/P 158/101 05/19 1128 B/P Mean 120 05/198 Temp 36.9 05/19 1128 Pulse 84 05/19 [...] symptoms should prompt an immediate return to [facility] or the closest emergency department or a call to 911. Quality Measures BP F/U for HTN F/u with PCP/other doc at 1708 RPT #:[id number] END OF REPORT 2019-07-30 21:12:00-00:00 [facility] ([facility]) EMERGENCY PROVIDER REPORT REPORT#:[id number] REPORT STATUS: Signed DATE:07/30/19 TIME: 2111 PATIENT: BREANNA JIMENEZ UNIT #: [id number] ROOM/BED: AGE: 29 SEX: F PCP PHYS: No Primary or Family Ph ysician SERVICE AUTHOR: Soha Rojas * ALL edits or amendments must be made on the Stereotypes/computer document * HPI-Abd Pain F Under 40 [...] Diagnostics Lab Results Interpretation Results Laboratory Tests 06/20/20 2129: [Embedded Image Not Available] Laboratory Tests: 07/29 07/29 2150 2129 Chemistry Sodium (136 - 145 [...] (Auto) (16.0 - 50.0 %) 15.3 L [place] % (Auto) (0.0 - 13.0 %) 5.2 [...] pH (4.6 - 8.0) 6.0 Ur Specific Ronald (1.001 - 1.035) 1.017 Urine Protein (NEGATIVE [...] and current condition do not suggest ac native appendicitis, bowel obstruction, tubovarian abscess, ectopic pregnan [...] will pursue further outpatient evaluation with the [facility] care physician or other designated or [...] 07/293 DC 07/29 Tromethamine IV 07/29 2333 233 Promethazine HCl 25 MG X1ED STA 07/298 DCr 07/29 IM 07/29 225 2305 Ketorolac 30 MG X1ED STA 07/29 2114 DC 07/29 Tromethamine IV 07/29 Electrolytic, Caloric, And Elvia Sig/Ayanna Start time Last Medication Dose Route Stop Time Status Admin Potassium Chloride 20 MEQ X1ED STA 07/299 D C PO 07/29 2229 Sodium Chloride [...] symptoms should prompt an immediate return to [facility] or the closest emergency department or a call to 911. at 0000 RPT #:[id number] END OF REPORT 2019-07-30 21:12:00-00:00 [facility] ([facility]) EMERGENCY PROVIDER REPORT REPORT#:[id number] REPORT STATUS: Signed DATE:07/30/19 TIME: 2111 PATIENT: BREANNA JIMENEZ UNIT #: [id number] ROOM/BED: AGE: 29 SEX: F PCP PHYS: No Primary or Family Ph ysician SERVICE AUTHOR: Soha Rojas * ALL edits or amendments must be made on the Stereotypes/computer document * HPI-Abd Pain F Under 40 [...] (Auto) (16.0 - 50.0 %) 15.3 L [place] % (Auto) (0.0 - 13.0 %) 5.2 Eos % (Auto) (0.0 - 4.5 %) 0.1 Baso % (Auto) (0.0 - 1.5 %) 0.3 Immature Gran # (Auto) (0.00 - 0.03 X10(3)uL) 0.02 Absolute Neuts (auto) (1.70 - 7.70 X10(3)) [...] pH (4.6 - 8.0) 6.0 Ur Specific Ronald (1.001 - 1.035) 1.017 Urine Protein (NEGATIVE [...] Care Testing Urinalysis Interpretation Urinalysis NL Re-Evaluation [facility] )( Re-Evaluation/Progress #1 Time of Re-Eval 2228 )( Re-Eval Status Improved Re-Eval Abdomen Soft Eval Following Treatment Pt. feels better, Condi tion improved Pain Re-Evaluation Pain improved Plan Post Re-Eval Plan discharge Abd Pain [facility] Note F < 40 The patient is resting comfortably and feels bet ter, is alert and in no distress. The repeat examination is unremarkable and benign; in particular, there is no discomfort at McBurney's point. The history, exam, diagnostic testing, and current condition do not suggest ac native appendicitis, bowel obstruction, tubovarian abscess, ectopic pregnan [...] will pursue further outpatient evaluation with the [facility] care physician or other designated or [...] 07/293 DC 07/29 Tromethamine IV 07/29 2333 233 Promethazine HCl 25 MG X1ED STA 07/298 DCr 07/29 IM 07/29 2258 2305 Ketorolac 30 MG X1ED STA 07/29 2114 DC 07/29 Tromethamine IV 07/30 2115 213 Electrolytic, Caloric, And Elvia Sig/Ayanna Start time Last Medication Dose Route Stop Time Status Admin Potassium Chloride 20 MEQ X1ED STA 07/299 D C PO 07/29 2229 Sodium Chloride [...] symptoms should prompt an immediate return to [facility] or the closest emergency department or a call to 911. at 0000 Electronically Signed by Ulises Pearson MD on at 0024 RPT #:[id number] END OF REPORT
[2022-10-04] MEDS ORDERED: KETOROLAC 30 MG/ML INJ ONE (03:41)
[2022-10-04] MEDS ORDERED: METOCLOPRAMIDE 10 MG/2mL INJ ONE (03:41)
[2022-10-04] MEDS ORDERED: MORPHINE 4 MG/ML SYR ONE (03:41)
[2022-10-04] MEDS ORDERED: DICYCLOMINE HCL 20 MG/2 ML AMP IM ONE (03:42)
[2022-10-04] MEDS ORDERED: ONDANSETRON 4 MG/2 ML VIAL ONE (03:42)
[2022-10-04] MEDS ORDERED: Ringers Lactate 2,000 ML IV ONE (03:42)
[2022-10-04 04:01] LABS: Absolute Lymphocytes (CBC) 0.9 K/uL (0.7-4.9); Hematocrit 39.6 % (36.0-45.0); MCV 83.5 fL (80-100); MPV 10.1 fL (7.6-11.3); Platelets 290 thou/uL (152-406); RBC Red Blood Cell Count 4.74 M/uL (3.86-4.86)
[2022-10-04 04:19] LABS: Albumin 3.8 g/dL (3.4-5.0); Bilirubin Total 0.4 mg/dL (0.2-1.0); Potassium 3.6 mEq/L (3.5-5.1); Protein, Total 8.1 g/dL (6.4-8.2)
[2022-10-04 05:21] LABS: Specific Gravity 1.023 (1.005-1.030)
[2022-10-04 05:42] LABS: Barbiturates NEGATIVE (NEGATIVE); Benzodiazepines NEGATIVE (NEGATIVE); Cocaine NEGATIVE (NEGATIVE); METHAMPHETAM NEGATIVE (NEGATIVE); Methadone NEGATIVE (NEGATIVE); Opiates POSITIVE (NEGATIVE); Phencyclidine NEGATIVE (NEGATIVE); THC Cannibis POSITIVE (NEGATIVE)
[2022-10-04 05:46] LABS: Calcium Oxalate Crystals- Ur Moderate /HPF (None Seen); Specific Gravity 1.017 (1.005-1.030); Urine Bacteria <20 /HPF (<20); Urine Bilirubin NEGATIVE (Negative); Urine Blood 1+ (Negative); Urine Clarity Extremely Turbid (Clear); Urine Color Light-Yellow (Yellow); Urine Glucose NEGATIVE (Negative); Urine Mucus 2+ /HPF (None Seen); Urine Protein TRACE (Negative); Urine Urobilinogen Normal (Normal); Urine pH 7.5 (5.0-7.0)
--- NOTE | 2022-10-04 06:03 | EDPHYS ---
Physician Documentation [facility] Name: Efrem Pastor Age: 32 yrs Sex: Female : 1990 Arrival Date: 10/04/2022 Time: 02:56 Bed 15 Private MD: ED Physician Mario Santo HPI: 10/04 03:17 This 32 yrs old Female presents to ER via Unassigned with complaints of sp4 Nausea/Vomiting, Abdominal Pain. 04:02 32-year-old female presents with a cute onset of nausea vomiting diffuse abdominal pain.sp4 04:07 Symptoms started yesterday patient is dry heaving on arrival to the emergency room. . sp4 04:11 Last admission here 09/12/2022 through 09/13/2022. Patient was admitted for intractable sp4 abdominal pain nausea vomiting due to cannabis hyperemesis syndrome and gastroparesis. Also history of irritable bowel syndrome history of cannabis use GERD anxiety and depression also posttraumatic stress disorder. At that time CAT scan revealed no acute abnormality. Patient was counseled extensively on cannabis cessation prior to discharge. Patient's medications include Lunesta 3 mg bedtime Compazine p.o. every 8 hours as needed, Xanax 0.5 mg p.o. twice daily, Rexulti 2 mg p.o. daily, Paxil 40 mg p.o. bedtime. . Historical: - Allergies: 03:24 Haldol; ha1 03:24 Scopolamine HBr; ha1 - PMHx: 03:24 Gastroparesis; Irritable bowel syndrome; PTSD; ha1 - PSHx: 03:24 bilateral ureter attachment; Cholecystectomy; leep procedure; Lumpectomy of breast; ha1 right breast; - Immunization history:: Adult Immunizations up to date. - Social history:: Smoking status: Patient reports the use of cigarette tobacco products, smokes one-half pack cigarettes per day. - Family history:: not pertinent. ROS: 04:07 Constitutional: Negative for fever, chills, and weight loss, Abdomen/GI: Positive for sp4 diffuse abdominal pain nausea vomiting and negative for constipation 04:07 All other systems are negative. Exam: 04:07 Constitutional: This is a well developed, well nourished patient who is awake, alert, sp4 uncomfortable appearing and dry heaving on exam Head/Face: Normocephalic, atraumatic. Eyes: Pupils equal round and reactive to light, extra-ocular motions intact. Lids and lashes normal. Conjunctiva and sclera are not injected. Cornea within normal limits. Periorbital areas with no swelling, redness, or edema. ENT: Nares patent. No nasal discharge, no septal abnormalities noted. Tympanic membranes are normal and external auditory canals are clear. Oropharynx with no redness, swelling, or masses, exudates, or evidence of obstruction, uvula midline. Mucous membranes moist. Neck: Trachea midline, no thyromegaly or masses palpated, and no cervical lymphadenopathy. Supple, full range of motion without nuchal rigidity, or vertebral point tenderness. Chest/axilla: Normal chest wall appearance and motion. Nontender with no deformity. No lesions are appreciated. Cardiovascular: Regular rate and rhythm with a normal S1 and S2. No gallops, murmurs, or rubs. Normal PMI, no JVD. No pulse deficits. Respiratory: Lungs have equal breath sounds bilaterally, clear to auscultation and percussion. No rales, rhonchi or wheezes noted. No increased work of breathing, no retractions or nasal flaring. Abdomen/GI: Soft, non-tender, with normal bowel sounds. No distension or tympany. No guarding or rebound. No evidence of tenderness throughout. Back: No spinal tenderness. No costovertebral tenderness. Skin: Warm, dry with normal turgor. Normal color with no rashes, no lesions, and no evidence of cellulitis. MS/ Extremity: Pulses equal, no cyanosis. Neurovascular intact. Full, normal range of motion. Neuro: Awake and alert, GCS 15, oriented to person, place, time, and situation. Cranial nerves II-XII grossly intact. Motor strength 5/5 in all extremities. Sensory grossly intact. Psych: Awake, alert, with orientation to person, place and time. Behavior, mood, and affect are within normal limits Vital Signs: 03:10 BP 144 / 104; Pulse 93; Resp 20 S; Temp 97.7(O); Pulse Ox 99% on R/A; Weight 63.5 kg; ha1 Height 5 ft. 2 in. ; Pain 10/10; 04:00 BP 135 / 97; Pulse 82; Resp 16 S; Pulse Ox 99% on R/A; ha1 05:00 BP 136 / 87; Pulse 87; Resp 16 S; Pulse Ox 100% ; ha1 05:46 BP 122 / 78; Pulse 94; Resp 18 S; Pulse Ox 100% ; ha1 06:17 BP 108 / 78; Pulse 87; Resp 16 S; Pulse Ox 100% on R/A; ha1 03:10 Body Mass Index 25.61 (63.50 kg, 157.48 cm) ha1 03:10 Pain Scale: Adult ha1 MDM: 03:55 Patient medically screened. sp4 04:07 Differential diagnosis: Nonspecific abd pain, gastritis, pancreatitis, diverticulitis, sp4 viral gastroenteritis, gastroenteritis. Data reviewed: vital signs, nurses notes. ED course: Patient has improved after the medication. 06:10 ED course: Patient's urine is positive for cannabis which would explain vomiting. sp4 Patient likely is suffering from hyperemesis syndrome related to cannabis use. Patient was informed that she should discontinue cannabis and her suffering will subside. . 10/04 03:16 Order name: CBC with Diff; Complete Time: 04:11 4 10/04 03:16 Order name: CMP; Complete Time: 04:20 4 10/04 03:16 Order name: Lipase; Complete Time: 04:20 [facility] 10/04 03:16 Order name: Test, Urine; Complete Time: 05:29 4 10/04 03:16 Order name: Urinalysis w/ reflexes; Complete Time: 05:56 4 10/04 04:02 Order name: Urine Drug Screen; Complete Time: 05:56 [facility] 10/04 03:16 Order name: IV Saline Lock; Complete Time: 04:14 4 10/04 03:16 Order name: Labs collected and sent; Complete Time: 04:14 sp4 Administered Medications: 03:24 Drug: Ondansetron IVP 8 mg Route: IVP; Site: right antecubital; ha1 04:00 Follow up: Response: No adverse reaction; Nausea is decreased ha1 03:30 Drug: morphine IVP or IV 4 mg Route: IVP; Infused Over: 4 mins; Site: right antecubital;ha1 04:00 Follow up: Response: No adverse reaction; Pain is decreased; RASS: Alert and Calm (0) ha1 03:30 Drug: Lactated Ringers Solution IV 1000 ml Route: IV; Rate: 150 ml/hr; Site: right ha1 antecubital; 06:16 Follow up: Response: No adverse reaction; IV Status: Completed infusion; IV Intake: ha1 450ml 03:30 Drug: Lactated Ringers Solution IV 1000 ml Route: IV; Rate: 1000 bolus; Site: right ha1 antecubital; 06:15 Follow up: Response: No adverse reaction; IV Status: Completed infusion; IV Intake: ha1 1000ml 03:32 Drug: metoCLOPramide IVP 10 mg Route: IVP; Site: right antecubital; ha1 04:00 Follow up: Response: No adverse reaction; Nausea is increased ha1 03:35 Drug: Dicyclomine IM 20 mg Route: IM; Site: right vastus lateralis; ha1 04:00 Follow up: Response: No adverse reaction ha1 03:42 Drug: Ketorolac IVP 30 mg Route: IVP; Site: right antecubital; ha1 04:40 Follow up: Response: No adverse reaction; Pain is decreased ha1 Disposition Summary: 10/04/22 06:03 Discharge Ordered Location: Home sp4 Problem: new sp4 Symptoms: have improved sp4 Condition: Stable sp4 Diagnosis - Abdominal pain, Generalized sp4 - Cannabis hyperemesis syndrome sp4 Followup: sp4 - With: Private Physician - When: 7 - 10 days - Reason: Recheck today's complaints Discharge Instructions: - Discharge Summary Sheet sp4 - Cannabinoid Hyperemesis Syndrome sp4 Forms: - Patient Portal Instructions sp4 Prescriptions: - Reglan 10 mg Oral Tablet - take 1 tablet by ORAL route every 6 hours Q 6 hours PRN nausea; 30 tablet; sp4 Refills: 0, Product Selection Permitted Signatures: Dispatcher [employer] Linda Watt RN RN ha1 Mario Santo MD MD sp4
--- NOTE | 2022-10-04 06:03 | ER ---
Nurse's Notes [facility] Name: Efrem Pastor Age: 32 yrs Sex: Female : 1990 Arrival Date: 10/04/2022 Time: 02:56 Bed 15 Private MD: Diagnosis: Abdominal pain, Generalized;Cannabis hyperemesis syndrome Presentation: 10/04 03:10 Chief complaint: Patient states: I have a really bad abdominal pain, nausea, vomiting, ha1 and diarrhea. 03:10 Coronavirus screen: Vaccine status: Patient reports receiving the 2nd dose of the covid ha1 vaccine. [employer]. Ebola Screen: No symptoms or risks identified at this time. Initial Sepsis Screen: Does the patient meet any 2 criteria? No. Patient's initial sepsis screen is negative. Does the patient have a suspected source of infection? No. Patient's initial sepsis screen is negative. Risk Assessment: Do you want to hurt yourself or someone else? Patient reports no desire to harm self or others. Onset of symptoms was October 03, 2022. 03:10 Method Of Arrival: Ambulatory ha1 03:10 Acuity: BELINDA 3 ha1 Triage Assessment: 03:10 General: Appears uncomfortable, Behavior is calm, cooperative. Pain: Complains of pain ha1 in abdomen Pain does not radiate. Pain currently is 10 out of 10 on a pain scale. Quality of pain is described as throbbing. Neuro: Level of Consciousness is awake, alert, obeys commands, Oriented to person, place, time, situation. Cardiovascular: Patient's skin is warm and dry. Respiratory: Airway is patent Respiratory effort is even, unlabored, Respiratory pattern is regular, symmetrical. GI: Abdomen is flat, Bowel sounds present X 4 quads. Abd is soft and non tender Reports upper abdominal pain, diarrhea, nausea, vomiting. : No signs and/or symptoms were reported regarding the genitourinary system. Derm: Skin is pink, warm \T\ dry. Musculoskeletal: Circulation, motion, and sensation intact. Historical: - Allergies: 03:24 Haldol; ha1 03:24 Scopolamine HBr; ha1 - PMHx: 03:24 Gastroparesis; Irritable bowel syndrome; PTSD; ha1 - PSHx: 03:24 bilateral ureter attachment; Cholecystectomy; leep procedure; Lumpectomy of breast; ha1 right breast; - Immunization history:: Adult Immunizations up to date. - Social history:: Smoking status: Patient reports the use of cigarette tobacco products, smokes one-half pack cigarettes per day. - Family history:: not pertinent. Screenin:10 [facility] [place] ED Fall Risk Assessment (Adult) History of falling in the last 3 months, ha1 including since admission No falls in past 3 months (0 pts) Confusion or Disorientation No (0 pts) Intoxicated or Sedated No (0 pts) Impaired Gait No (0 pts) Mobility Assist Device Used No (0 pt) Altered Elimination No (0 pt) Score/Fall Risk Level 0 - 2 = Low Risk Oriented to surroundings, Maintained a safe environment, Educated pt \T\ family on fall prevention, incl call for assistance when getting out of bed, Hourly rounding (assess needs \T\ fall precautionary measures) done. 04:43 Abuse screen: Denies threats or abuse. Denies injuries from another. Nutritional ha1 screening: No deficits noted. Tuberculosis screening: No symptoms or risk factors identified. Assessment: 03:10 Reassessment: see triage assessment. ha1 04:00 Reassessment: Patient and/or family updated on plan of care and expected duration. Pain ha1 level reassessed. Patient is alert, oriented x 3, equal unlabored respirations, skin warm/dry/pink. pain 5/10 Patient states symptoms have improved. Vital Signs: 03:10 BP 144 / 104; Pulse 93; Resp 20 S; Temp 97.7(O); Pulse Ox 99% on R/A; Weight 63.5 kg; ha1 Height 5 ft. 2 in. ; Pain 10/10; 04:00 BP 135 / 97; Pulse 82; Resp 16 S; Pulse Ox 99% on R/A; ha1 05:00 BP 136 / 87; Pulse 87; Resp 16 S; Pulse Ox 100% ; ha1 05:46 BP 122 / 78; Pulse 94; Resp 18 S; Pulse Ox 100% ; ha1 06:17 BP 108 / 78; Pulse 87; Resp 16 S; Pulse Ox 100% on R/A; ha1 03:10 Body Mass Index 25.61 (63.50 kg, 157.48 cm) ha1 03:10 Pain Scale: Adult ha1 ED Course: 03:02 Patient arrived in ED. [email or web address] 03:10 Patient has correct armband on for positive identification. Placed in gown. Bed in low ha1 position. Call light in reach. Side rails up X 1. 03:10 Arm band placed on. ha1 03:16 Mario Santo MD is Attending Physician. sp4 03:20 Inserted saline lock: 22 gauge in right antecubital area, using aseptic technique. ha1 Blood collected. 03:24 Triage completed. ha1 04:14 CMP Sent. ha1 04:14 Lipase Sent. ha1 05:26 Linda Block RN is Primary Nurse. ha1 06:13 No provider procedures requiring assistance completed. IV discontinued, intact, ha1 bleeding controlled, No redness/swelling at site. Pressure dressing applied. 06:14 Provided Education on: follow ups. ha1 Administered Medications: 03:24 Drug: Ondansetron IVP 8 mg Route: IVP; Site: right antecubital; ha1 04:00 Follow up: Response: No adverse reaction; Nausea is decreased ha1 03:30 Drug: morphine IVP or IV 4 mg Route: IVP; Infused Over: 4 mins; Site: right antecubital;ha1 04:00 Follow up: Response: No adverse reaction; Pain is decreased; RASS: Alert and Calm (0) ha1 03:30 Drug: Lactated Ringers Solution IV 1000 ml Route: IV; Rate: 150 ml/hr; Site: right ha1 antecubital; 06:16 Follow up: Response: No adverse reaction; IV Status: Completed infusion; IV Intake: ha1 450ml 03:30 Drug: Lactated Ringers Solution IV 1000 ml Route: IV; Rate: 1000 bolus; Site: right ha1 antecubital; 06:15 Follow up: Response: No adverse reaction; IV Status: Completed infusion; IV Intake: ha1 1000ml 03:32 Drug: metoCLOPramide IVP 10 mg Route: IVP; Site: right antecubital; ha1 04:00 Follow up: Response: No adverse reaction; Nausea is increased ha1 03:35 Drug: Dicyclomine IM 20 mg Route: IM; Site: right vastus lateralis; ha1 04:00 Follow up: Response: No adverse reaction ha1 03:42 Drug: Ketorolac IVP 30 mg Route: IVP; Site: right antecubital; ha1 04:40 Follow up: Response: No adverse reaction; Pain is decreased ha1 Medication: 04:44 VIS not applicable for this client. ha1 Intake: 06:15 IV: 1000ml; Total: 1000ml. ha1 06:16 IV: 450ml; Total: 1450ml. ha1 Outcome: 06:03 Discharge ordered by . sp4 06:13 Discharged to home ambulatory. ha1 06:13 Condition: stable 06:13 Discharge instructions given to patient, Instructed on discharge instructions, follow up and referral plans. medication usage, Demonstrated understanding of instructions, follow-up care, medications, Prescriptions given X 1. 06:17 Patient left the ED. ha1 Signatures: Tisha Cruz [email or web address] Linda Block RN RN ha1 Mario Santo MD MD sp4
[2022-10-04 06:26] VITALS: TEMP 97.7
[2022-10-04 06:30] VITALS: O2SAT 100
[2022-10-04 06:33] VITALS: BP 108/78
== END 2022-10-04 06:17 | disposition home or self-care (01) ==
LOC: ER 02:56
DX: F12.188 Cannabis abuse with other cannabis-induced disorder (principal); F17.210 Nicotine dependence, cigarettes, uncomplicated; Z88.5 Allergy status to narcotic agent; Z88.8 Allergy status to other drugs, medicaments and biological substances
CPT/HCPCS: 96361; 85025; 81001; 36415; 81025; 83690; 80053; 80307; 96375; 96372; 96374; 99284; J2765; J0500; J2405; J7120

== ENCOUNTER 2022-10-24 10:14 | Emergency (ER) | payer BC ==
--- OUTSIDE RECORDS SUMMARY | 2022-10-24 10:18 | XMS REPORT | Continuity of Care Document ---
:1990 Author Organization [facility] t Address [address] [place] [address] Care Team Providers Name Role Phone Ted [...] Clinician haloperi DA Active SV HIVES [facility] 5[facility]03 [facility] 00:00: Regiona 00 l [...] 00 l Hospita l scopolam [place] Active [place] 2020- [facility] 4[facility]10 [facility] 00:[facility]: [facility] scopolam DA Active [place] RASH-HIVES [facility] ine 4-10 [facility] 00:00: Regiona 00 l Hospita l No Known DA Active U [facility] Allergie 6-20 [facility] 00:00: [facility] 00 l [facility]ospita [facility] No Known DA Active U [facility] Allergie 6-20 [facility] s 00:00: Regiona 00 l Hospita [facility] No Known DA Active U [facility] Drug 9-15 [facility] Intolera 00:00: Regiona nces 00 l Hospita l No Known DA Active U NONE [facility] 9-15 [facility] Intolera 00:00: Region nc l Hospita l Medications This patient has no known medications. Procedures This patient has no known procedures. Encounters Start End Encounter Admission Attending Care Care Encounter Source Date/Time Date/Time Type Type Clinicians Facility Department ID 2020-06-24 Inpatient [facility] [id number] [facility]:53[facility] 2020-05-19 Inpatient [facility] [id number] [facility] 11:42:02 19 [facility] 2019-07-30 Inpatient [facility] ER [id number] [facility] 21:08:00 63 [facility] 2022-06-11 2022-06-11 Emergency EM Schultz, [facility] ER [id number] [facility] 11:10:00 12:41:00 Ted [facility] 2021-02-09 2021-02-10 Emergency EM Peguero, [facility] ER [id number] [facility] 23:10:00 00:19:00 Kaelyn 49 [facility] [...] Suprapubic PainURINE SOURCE: CLEAN CATCH URINEUR HCG [id number] 11:54:00 Test Item Value Reference Range Interpretation Comments UR HCG QUAL (test code = HCGQLU) NEGATIVE NEGATIVE Indication for culture: Suprapubic PainURINE SOURCE: CLEAN CATCH URINE COMPREHENSIVE METABOLIC [id number] 11:49:00 Test Item Value Reference Range Interpretation [...] 45-117 N TOTAL (test code = ALKP) [id number] 11:49:00 Test Item Value Reference Range Interpretation Comments AMYLASE (test code = PARAM) 73 IU/L 25-115 N [id number] 11:49:00 Test Item Value Reference Range Interpretation Comments LIPASE (test code = LIP) 134 U/L 73-393 N CBC W/AUTO [id number] 11:33:00 Test Item Value Reference Range Interpretation [...] NO NORMAL code = RBCM) COMPREHENSIVE METABOLIC [id number] 16:11:00 Test Item Value Reference Range Interpretation [...] RESULT BY1.21. [Automated mess age] The system StudyRoom generated this result transmitted ref erence range: [...] 45-117 H TOTAL (test code = ALKP) [id number] 16:11:00 Test Item Value Reference Range Interpretation Comments LIPASE (test code = LIP) 108 U/L 73-393 N URINALYSIS W REFLEX [id number] 16:05:00 Test Item Value Reference Range Interpretation [...] UA MICRO code = UAMICRO) UR HCG [id number] 16:05:00 Test Item Value Reference Range Interpretation Comments UR HCG QUAL (test code = HCGQLU) NEGATIVE NEGATIVE URINALYSIS W REFLEX [id number] 16:05:00 Test Item Value Reference Range Interpretation [...] DO UA MICRO code = UAMICRO) UA [id number] 16:05:00 Test Item Value Reference Range Interpretation Comments UA WBC (test code = WBCU) 0-2 #/hpf 0-5 UA RBC (test code = RBCU) 0-2 #/hpf 0-5 UA EPITHELIAL CELLS (test code = 2+ /hpf NEG,FEW A EPIU) UA BACTERIA (test code = BACU) FEW /hpf NEGATIVE A UA AMORPHOUS SEDIMENT (test code = FEW /hpf NEG,FEW AMORU) UR HCG [id number] 16:05:00 Test Item Value Reference Range Interpretation Comments UR HCG QUAL (test code = HCGQLU) NEGATIVE NEGATIVE URINALYSIS W REFLEX [id number] 16:05:00 Test Item Value Reference Range Interpretation [...] UA MICRO code = UAMICRO) UR HCG [id number] 16:05:00 Test Item Value Reference Range Interpretation Comments UR HCG QUAL (test code = HCGQLU) NEGATIVE NEGATIVE DRUGS OF ABUSE [id number] 16:01:00 Test Item Value Reference Range Interpretation Comments UR COCAINE (test code NEGATIVE ng/ml NEGATIVE = COCAU) UR CANNABINOIDS (test POSITIVE ng/ml NEGATIVE A DALY UE EXCEEDS code = CANU) CRITICAL LEVEL. CRITICAL VALUE CALLEDTO AND CRITICAL VALUE READ BACK BY HUBER DOWNING RN 1 057 06/24/20. Chas Dixon POSITIVE URINE DRUG SCREEN [...] WAS TESTE D AT THE [facility]) LISTED CUTOFFS DRUG CLASS INIT IAL TEST LEVEL AMPHETAMINES 10 00 NG/MLBARBITURAT ES 200 NG/MLBENZODIAZE PIN ES 200 NG/MLCOCAINE METABOLITE 300 NG/MLMARIJUANA METABOLITE 50 NG/MLOPIATES 3 00 NG/MLPHENCYCLID INE 25 NG/ML URINALYSIS W REFLEX [id number] 15:58:00 Test Item Value Reference Range Interpretation [...] NEEDED? (test code = UAMICRO) UR HCG [id number] 15:58:00 Test Item Value Reference Range Interpretation Comments UR HCG QUAL (test code = HCGQLU) NEGATIVE NEGATIVE CBC W/AUTO [id number] 15:52:00 Test Item Value Reference Range Interpretation [...] NORMAL code = RBCM) URINALYSIS W REFLEX [id number] 13:00:00 Test Item Value Reference Range Interpretation [...] MICRO code = UAMICRO) UA ICTOTEST FOR [id number] 13:00:00 Test Item Value Reference Range Interpretation Comments UA ICTOTEST FOR BILIRUBIN (test code POSITIVE NEGATIVE A = ICTOU) UA [id number] 13:00:00 Test Item Value Reference Range Interpretation Comments UA WBC (test code = WBCU) 0-2 #/hpf 0-5 UA RBC (test code = RBCU) 3-5 #/hpf 0-5 UA EPITHELIAL CELLS (test code = FEW /hpf NEG,FEW EPIU) UA BACTERIA (test code = BACU) FEW /hpf NEGATIVE A UA MUCUS (test code = MUCU) 1+ /hpf NEG,FEW A UR HCG [id number] 13:00:00 Test Item Value Reference Range Interpretation Comments UR HCG QUAL (test code = HCGQLU) NEGATIVE NEGATIVE DRUGS OF ABUSE [id number] 12:57:00 Test Item Value Reference Range Interpretation [...] WAS TESTE D AT THE [facility]) LISTED CUTOFFS DRUG CLASS INIT IAL TEST LEVEL AMPHETAMINES 10 00 NG/MLBARBITURAT ES 200 NG/MLBENZODIAZE PIN ES 200 NG/MLCOCAINE METABOLITE 300 NG/MLMARIJUANA METABOLITE 50 NG/MLOPIATES 30 0 NG/MLPHENCYCLID INE 25 NG/ML URINALYSIS W REFLEX [id number] 12:56:00 Test Item Value Reference Range Interpretation [...] MICRO code = UAMICRO) UA ICTOTEST FOR [id number] 12:56:00 Test Item Value Reference Range Interpretation Comments UA ICTOTEST FOR BILIRUBIN (test code POSITIVE NEGATIVE A = ICTOU) UR HCG [id number] 12:56:00 Test Item Value Reference Range Interpretation Comments UR HCG QUAL (test code = HCGQLU) NEGATIVE NEGATIVE URINALYSIS W REFLEX [id number] 12:53:00 Test Item Value Reference Range Interpretation [...] UA MICRO code = UAMICRO) UR HCG [id number] 12:53:00 Test Item Value Reference Range Interpretation Comments UR HCG QUAL (test code = HCGQLU) NEGATIVE NEGATIVE URINALYSIS W REFLEX [id number] 12:53:00 Test Item Value Reference Range Interpretation [...] UA MICRO code = UAMICRO) UR HCG [id number] 12:53:00 Test Item Value Reference Range Interpretation Comments UR HCG QUAL (test code = HCGQLU) NEGATIVE NEGATIVE - XR ABDOMEN [id number] 12:16:00 [facility] : 1990 Sex: F FAX: Sawyer Centeno II [place]: St: PRE Name: BREANNA QUEEN [place] FSED : 1990 Age/S: 30/F [address] Unit #: [id number] Loc: [place] [address] Phys: Sawyer Centeno II, MD Acct: [id number] Dis Date: Status: PRE ER PHONE #: Exam Date: 05/19/2020 1212 FAX #: Reason: abdominal pain EXAMS: CPT CODE: [id number] XR ABDOMEN 2V 70693 - XR ABDOMEN 2V PROVIDED REASON FOR [...] RT Bekah (R) CT Trnscrd Date/Time/By: 05/19/2020 (2758) : By: [email or web address] Orig Print D/T: S: 05/19/2020 (7150) PAGE 1 Signed ReportBASIC METABOLIC PANEL 2020-05-19 [...] RESULT BY1.21. [Automated mess age] The system StudyRoom generated this result transmitted ref erence range: >=60. Th e reference range was not used to int erpret this result as normal/abnormal . CREATININE (test code 0.64 mg/dl 0.55-1.02 N = CREAT) CALCIUM (test code = 9.8 mg/dL 8.5-10.1 N CA) LIVER [id number] 12:08:00 Test Item Value Reference Range Interpretation [...] 119 U/L 45-117 H code = ALKP) [id number] 12:08:00 Test Item Value Reference Range Interpretation Comments LIPASE (test code = LIP) 67 U/L 73-393 L CBC W/AUTO [id number] 11:43:00 Test Item Value Reference Range Interpretation [...] NORMAL code = RBCM) URINALYSIS W REFLEX [id number] 22:06:00 Test Item Value Reference Range Interpretation [...] MUCU) 2+ /hpf NEG,FEW A BASIC METABOLIC [id number] 21:54:00 Test Item Value Reference Range Interpretation [...] = 9.3 mg/dL 8.5-10.1 N CA) LIVER [id number] 21:54:00 Test Item Value Reference Range Interpretation [...] 69 U/L 50-136 N code = ALKP) [id number] 21:54:00 Test Item Value Reference Range Interpretation Comments LIPASE (test code = LIP) 63 U/L 73-393 L BASIC METABOLIC [id number] 21:53:00 Test Item Value Reference Range Interpretation [...] = 9.3 mg/dL 8.5-10.1 N CA) LIVER [id number] 21:53:00 Test Item Value Reference Range Interpretation [...] TOTAL (test U/L 50-136 code = ALKP) [id number] 21:53:00 Test Item Value Reference Range Interpretation Comments LIPASE (test code = LIP) 63 U/L 73-393 L BASIC METABOLIC [id number] 21:52:00 Test Item Value Reference Range Interpretation [...] = 9.3 mg/dL 8.5-10.1 N CA) LIVER [id number] 21:52:00 Test Item Value Reference Range Interpretation [...] TOTAL (test U/L 50-136 code = ALKP) [id number] 21:52:00 Test Item Value Reference Range Interpretation Comments LIPASE (test code = LIP) 63 U/L 73-393 L BASIC METABOLIC [id number] 21:51:00 Test Item Value Reference Range Interpretation [...] = 9.3 mg/dL 8.5-10.1 N CA) LIVER [id number] 21:51:00 Test Item Value Reference Range Interpretation [...] TOTAL (test U/L 50-136 code = ALKP) [id number] 21:51:00 Test Item Value Reference Range Interpretation Comments LIPASE (test code = LIP) 63 U/L 73-393 L BASIC METABOLIC [id number] 21:49:00 Test Item Value Reference Range Interpretation [...] = CA) 9.3 mg/dL 8.5-10.1 N LIVER [id number] 21:49:00 Test Item Value Reference Range Interpretation [...] TOTAL (test U/L 50-136 code = ALKP) [id number] 21:49:00 Test Item Value Reference Range Interpretation Comments LIPASE (test code = LIP) 63 U/L 73-393 L BASIC METABOLIC [id number] 21:48:00 Test Item Value Reference Range Interpretation [...] = CA) 9.3 mg/dL 8.5-10.1 N LIVER [id number] 21:48:00 Test Item Value Reference Range Interpretation Comments TOTAL PROTEIN (test code = PROT) g/dl 6.4-8.2 ALBUMIN (test code = ALB) g/dl 3.4-5.0 BILIRUBIN TOTAL (test code = BILT) mg/dl 0.2-1.0 BILIRUBIN DIRECT (test code = BILD) mg/dl 0.0-0.4 SGOT/AST (test code = AST) U/L 15-37 SGPT/ALT (test code = ALT) U/L 12-78 ALKALINE PHOSPHATASE TOTAL (test code U/L 50-136 = ALKP) [id number] 21:48:00 Test Item Value Reference Range Interpretation Comments LIPASE (test code = LIP) U/L 73-393 BASIC METABOLIC [id number] 21:46:00 Test Item Value Reference Range Interpretation [...] (test code = CA) mg/dL 8.5-10.1 LIVER [id number] 21:46:00 Test Item Value Reference Range Interpretation Comments TOTAL PROTEIN (test code = PROT) g/dl 6.4-8.2 ALBUMIN (test code = ALB) g/dl 3.4-5.0 BILIRUBIN TOTAL (test code = BILT) mg/dl 0.2-1.0 BILIRUBIN DIRECT (test code = BILD) mg/dl 0.0-0.4 SGOT/AST (test code = AST) U/L 15-37 SGPT/ALT (test code = ALT) U/L 12-78 ALKALINE PHOSPHATASE TOTAL (test code U/L 50-136 = ALKP) [id number] 21:46:00 Test Item Value Reference Range Interpretation Comments LIPASE (test code = LIP) U/L 73-393 CBC W/AUTO [id number] 21:43:00 Test Item Value Reference Range Interpretation [...] Notes Date/Time Note Provider Source 2022-06-11 11:33:00-00:00 [facility] ([facility] EMERGENCY PROVIDER REPORT REPORT#:[id number] REPORT STATUS: Signed DATE:06/11/22 TIME: 1133 PATIENT: BREANNA JIMENEZ UNIT #: [id number] ROOM/BED: AGE: 32 SEX: F PCP PHYS: Undefined Provider SERVICE AUTHOR: Ted Schultz MD * ALL edits or amendments must be made on the el [employer]/computer document * HPI-Nausea/Vomit/Diarrhea General Confirmed Patient Yes [...] % (Auto) (16 - 50 %) 22.9 Wolfe % (Auto) (0.0 - 13.0 %) 9.8 [...] pH (4.6 - 8.0) 7.0 Ur Specific [facility] (1.001 - 1.035) 1.020 Urine Protein (NEGATIVE [...] yesterday. After discussion patient states was at [facility] yesterday and was prescribed compazine/reglan after blood [...] Instructions Schedule a follow-up appointment with your [facility] Care Provider Discharge Note I [...] symptoms should prompt an immediate return to [facility] or the closest emergency department or a call to 911. Electronically Signed by Ted Schultz MD on at 1245 [facility] #:[id number] END OF REPORT 2021-02-09 23:43:00-00:00 [facility] ([facility] EMERGENCY PROVIDER REPORT REPORT#:[id number] REPORT STATUS: Signed DATE:02/09/21 TIME: 2343 PATIENT: BREANNA JIMENEZ UNIT #: [id number] ROOM/BED: AGE: 30 SEX: F PCP PHYS: No Primary or Family Ph ysician SERVICE AUTHOR: Kaelyn Peguero MD * ALL edits or amendments must be made on the [employer] document * KIB-Oec-Wihr Illness General Confirmed Patient Yes Patient Type New patient Initial Greet Date/Time 02/09/21 2312 Presentation Chief Complaint Body aches, Chills, Cough Free Text HPI Notes Free Text HPI Notes 30-year-old female comes [facility] complaining of cough, body aches, chills , that began 2 days ago. Patient has been travel ing in [facility] and apparently although she has [...] Peguero MD on 04/02 at 0652 RPT #:[id number] END OF REPORT 2020-06-24 15:35:00-00:00 [facility] ([facility]) EMERGENCY PROVIDER REPORT REPORT#:[id number] REPORT STATUS: Signed DATE:06/24/20 TIME: 1534 PATIENT: BREANNA JIMENEZ UNIT #: [id number] ROOM/BED: AGE: 30 SEX: F PCP PHYS: No Primary or Family P hysician SERVICE AUTHOR: Maicol Coy MD * ALL edits or amendments must be made on the [employer]/computer document * HPI-Abd Pain F Under 40 General Initial Greet Date/Time 06/24/[address] Winn in [place], [place] Presentation Chief Complaint Abdominal pain, Nausea, [...] N/V x 6. She is visiting from [place]. Risk-Abd Pain F Under 40 )( Ectopic [...] % (Auto) (16 - 50 %) 48.2 Wolfe % (Auto) (0.0 - 13.0 %) 13.0 [...] pH (4.6 - 8.0) 7.0 Ur Specific [facility] (1.001 - 1.035) 1.020 Urine Protein (NEGATIVE [...] and considered in e medical decision-making. Re-Evaluation [facility] )( Re-Evaluation/Progress #1 Text/Dict Note Pt states [...] and current condition do not suggest ac grindstone appendicitis, bowel obstruction, tubovarian abscess, ectopic pregnan [...] will pursue further outpatient evaluation with the [facility] care physician or other designated [...] symptoms should prompt an immediate return to [facility] or the closest emergency department or a [...] MD on 06/09 07/30 at 2053 RPT #:[id number] END OF REPORT 2020-05-19 12:11:00-00:00 [facility] ([facility] EMERGENCY PROVIDER REPORT REPORT#:[id number] REPORT STATUS: Signed DATE:05/19/20 TIME: 1211 PATIENT: BREANNA QUEEN UNIT #: [id number] ROOM/BED: AGE: 30 SEX: F PCP PHYS: Brayan Winn MD SERVICE AUTHOR: Sawyer Centeno II, MD * ALL edits or amendments must be made on the el [employer]/computer document * HPI-Abd Pain F Under 40 Free Text HPI Notes Free Text HPI Notes The patient tells me she has a history o f gastroparesis but is not a diabetic. She tells me that she is [facility] and that she has GI specialist in [place] whose name is Dr. Hendrix. She tells me she used to get Botox injections in her pilorus to treat her pain. She tells me she went to a local hospital yesterday and got s everal medications for pain but the pain did not get any better. General Confirmed Patient Yes Initial Greet Date/Time 05/19/20 1129 PCP In [facility] Presentation Chief Complaint Abdominal pain Hx [...] pH (4.6 - 8.0) 6.0 Ur Specific [facility] (1.001 - 1.035) >= 1.030 Urine Protein [...] (Auto) (16 - 50 %) 9.5 L Wolfe % (Auto) (0.0 - 13.0 %) 4.3 [...] symptoms should prompt an immediate return to [facility] or the closest emergency department or a call to 911. Quality Measures BP F/U for HTN F/u with PCP/other doc at 1708 RPT #:[id number] END OF REPORT 2019-07-30 21:12:00-00:00 [facility] ([facility]) EMERGENCY PROVIDER REPORT REPORT#:[id number] REPORT STATUS: Signed DATE:07/30/19 TIME: 2111 PATIENT: BREANNA JIMENEZ UNIT #: [id number] ROOM/BED: AGE: 29 SEX: F PCP PHYS: No Primary or Family Ph ysician SERVICE AUTHOR: Soha Rojas * ALL edits or amendments must be made on the [employer]/computer document * HPI-Abd Pain F Under 40 [...] (Auto) (16.0 - 50.0 %) 15.3 L Wolfe % (Auto) (0.0 - 13.0 %) 5.2 [...] pH (4.6 - 8.0) 6.0 Ur Specific [facility] (1.001 - 1.035) 1.017 Urine Protein (NEGATIVE [...] and current condition do not suggest ac grindstone appendicitis, bowel obstruction, tubovarian abscess, ectopic pregnan [...] will pursue further outpatient evaluation with the [facility] care physician or other designated [...] symptoms should prompt an immediate return to [facility] or the closest emergency department or a call to 911. at 0000 RPT #:[id number] END OF REPORT 2019-07-30 21:12:00-00:00 [facility] ([facility]) EMERGENCY PROVIDER REPORT REPORT#:[id number] REPORT STATUS: Signed DATE:07/30/19 TIME: 2111 PATIENT: BREANNA JIMENEZ UNIT #: [id number] ROOM/BED: AGE: 29 SEX: F PCP PHYS: No Primary or Family Ph ysician SERVICE AUTHOR: Soha Rojas * ALL edits or amendments must be made on the [employer]/computer document * HPI-Abd Pain F Under 40 [...] (Auto) (16.0 - 50.0 %) 15.3 L Wolfe % (Auto) (0.0 - 13.0 %) 5.2 [...] pH (4.6 - 8.0) 6.0 Ur Specific [facility] (1.001 - 1.035) 1.017 Urine Protein (NEGATIVE [...] Care Testing Urinalysis Interpretation Urinalysis NL Re-Evaluation [facility] )( Re-Evaluation/Progress #1 Time of Re-Eval 2228 )( Re-Eval Status Improved Re-Eval Abdomen Soft Eval Following Treatment Pt. feels better, Condi tion improved Pain Re-Evaluation Pain improved Plan Post Re-Eval Plan discharge Abd Pain [facility] Note F < 40 The patient is resting comfortably and feels bet ter, is alert and in no distress. The repeat examination is unremarkable and benign; in particular, there is no discomfort at McBurney's point. The history, exam, diagnostic testing, and current condition do not suggest ac grindstone appendicitis, bowel obstruction, tubovarian abscess, ectopic pregnan [...] will pursue further outpatient evaluation with the [facility] care physician or other designated [...] symptoms should prompt an immediate return to [facility] or the closest emergency department or a call to 911. at 0000 Electronically Signed by Ulises Pearson MD on at 0024 RPT #:[id number] END OF REPORT
[2022-10-24] MEDS ORDERED: NA CHLORIDE 0.9% 1,000 ML ONE (10:55)
[2022-10-24] MEDS ORDERED: ONDANSETRON 4 MG/2 ML VIAL ONE (10:55)
[2022-10-24] MEDS ORDERED: NA CHLORIDE 0.9% 100 ML ONE (10:55)
[2022-10-24] MEDS ORDERED: METOCLOPRAMIDE 10 MG/2mL INJ ONE (10:55)
[2022-10-24] MEDS ORDERED: DIPHENHYDRAMINE 50 MG/ML VIAL ONE (10:55)
[2022-10-24] MEDS ORDERED: FAMOTIDINE 20 MG/2 ML VIAL IV ONE (10:56)
[2022-10-24 11:06] LABS: Absolute Lymphocytes (CBC) 1.4 K/uL (0.7-4.9); Hematocrit 38.2 % (36.0-45.0); Lymphocytes % 17.2 % (15.3-44.8); MCV 84.2 fL (80-100); MPV 9.9 fL (7.6-11.3); Platelets 274 thou/uL (152-406); RBC Red Blood Cell Count 4.53 M/uL (3.86-4.86)
[2022-10-24 11:29] LABS: Albumin 3.9 g/dL (3.4-5.0); Bilirubin Total 0.4 mg/dL (0.2-1.0); Potassium 3.6 mEq/L (3.5-5.1); Protein, Total 7.8 g/dL (6.4-8.2)
[2022-10-24] MEDS ORDERED: LORazepam 2 MG/ML VIAL ONE (12:03)
[2022-10-24] MEDS ORDERED: PROMETHAZINE INJ 25 MG/ML AMP ONE (12:03)
--- NOTE | 2022-10-24 13:05 | EDPHYS ---
Physician Documentation [facility] Name: Efrem Pastor Age: 32 yrs Sex: Female : 1990 Arrival Date: 10/24/2022 Time: 10:14 Bed 6 Private MD: ED Physician Kishor Nj HPI: 10/24 10:30 This 32 yrs old Female presents to ER via Ambulatory with complaints of ms3 Nausea/Vomiting, Abdominal Pain. 10:30 32-year-old female with past medical history of gastroparesis, acne syndrome, PTSD, ms3 irritable bowel syndrome presents for nausea, vomiting, abdominal pain that began this morning. Patient states her discomfort is a 9/10 and described as cramping. Patient states the symptoms are consistent with her gastroparesis and acne syndrome. Patient denies any alleviating or inciting factors. Historical: - Allergies: 10:26 Haldol; hb 10:26 Scopolamine HBr; hb - PMHx: 10:26 Gastroparesis; Irritable bowel syndrome; PTSD; hb - PSHx: 10:26 bilateral ureter attachment; Cholecystectomy; leep procedure; Lumpectomy of breast; hb right breast; - Immunization history:: Adult Immunizations up to date. - Social history:: Smoking status: Reported history of juuling and/or vaping. ROS: 10:32 Constitutional: Negative for fever, and chills. Neck: Negative for injury, pain, and ms3 swelling, Cardiovascular: Negative for chest pain, and palpitations. Respiratory: Negative for shortness of breath, cough, wheezing, and pleuritic chest pain. 10:32 MS/Extremity: Negative for injury and deformity, Skin: Negative for injury, rash, and discoloration. 10:32 Abdomen/GI: Positive for abdominal pain, nausea, vomiting, and diarrhea. 10:32 All other systems are negative. Exam: 10:32 Constitutional: This is a well developed, well nourished patient who is awake, alert, ms3 and in no acute distress. Head/Face: Normocephalic, atraumatic. Chest/axilla: Normal chest wall appearance and motion. Nontender with no deformity. Cardiovascular: Regular rate and rhythm with a normal S1 and S2. No gallops, murmurs, or rubs. Normal PMI, no JVD. No pulse deficits. Respiratory: Lungs have equal breath sounds bilaterally, clear to auscultation and percussion. No rales, rhonchi or wheezes noted. No increased work of breathing, no retractions or nasal flaring. 10:32 Skin: Warm, dry with normal turgor. Normal color with no rashes, no lesions, and no evidence of cellulitis. 10:32 Abdomen/GI: Inspection: abdomen appears normal, Bowel sounds: normal, Palpation: moderate abdominal tenderness, in all quadrants. Vital Signs: 10:24 BP 148 / 108; Pulse 94; Resp 18; Temp 97.4(O); Pulse Ox 99% on R/A; Weight 63.5 kg; hb Height 5 ft. 2 in. ; Pain 9/10; 11:04 BP 151 / 117; Pulse 84; Resp 18; Pulse Ox 99% on R/A; ph 11:59 BP 159 / 107; Pulse 76; Resp 18; Pulse Ox 100% on R/A; ph 13:00 BP 135 / 101; Pulse 71; Resp 18; Pulse Ox 98% on R/A; ph 10:24 Body Mass Index 25.61 (63.50 kg, 157.48 cm) hb 10:24 Pain Scale: Adult hb MDM: 10:30 Patient medically screened. ms3 10:32 Differential diagnosis: Nonspecific abd pain, gastroenteritis, Gastroparesis. ms3 13:05 Data reviewed: vital signs, nurses notes, and as a result, I will discharge patient. I ms3 considered the following discharge prescriptions or medication management in the emergency department Medications were administered in the Emergency Department. See MAR. Care significantly affected by the following Social Determinants of Health:. Counseling: I had a detailed discussion with the patient and/or guardian regarding the historical points, exam findings, and any diagnostic results supporting the discharge/admit diagnosis, lab results, the need for outpatient follow up, to return to the emergency department if symptoms worsen or persist or if there are any questions or concerns that arise at home. Response to treatment: the patient's symptoms have mildly improved after treatment. Special discussion: Based on the patient's Hx, exam, and Dx evaluation, there is no indication for emergent surgery or inpatient Tx. It is understood by the patient/guardian that if the Sx's persist or worsen they need to return immediately for re-evaluation. ED course: Discussed labs and physical exam findings with patient. Patient states she has Phenergan and Zofran at home. Patient states Reglan caused extrapyramidal symptoms when taken orally in the past. Patient to follow-up with gastroenterology in 2 to 3 days. Patient understands and agrees with plan. All questions were answered. Return precautions discussed include worsening symptoms, or any other concerns. 10/24 10:30 Order name: CBC with Diff; Complete Time: :46 ms3 10/24 10:30 Order name: CMP; Complete Time: : ms3 10/24 10:30 Order name: Lipase; Complete Time: :46 ms3 10/24 10:30 Order name: IV Saline Lock; Complete Time: 11:00 ms3 10/24 10:30 Order name: Labs collected and sent; Complete Time: 11:00 ms3 Administered Medications: 11:00 Drug: NS 0.9% IV 1000 ml Route: IV; Rate: 1 bolus; Site: right antecubital; ph 13:25 Follow up: Response: No adverse reaction; IV Status: Completed infusion; IV Intake: ph 1000ml 11:00 Drug: Famotidine IVP 20 mg Route: IVP; Site: right antecubital; ph 13:25 Follow up: Response: No adverse reaction ph 11:00 Drug: Ondansetron IVP 4 mg Route: IVP; Site: right antecubital; ph 13:25 Follow up: Response: No adverse reaction ph 11:00 Drug: metoCLOPramide IVP 10 mg Route: IVP; Site: right antecubital; ph 13:25 Follow up: Response: No adverse reaction ph 11:00 Drug: diphenhydrAMINE IVP 12.5 mg Route: IVP; Site: right antecubital; ph 13:25 Follow up: Response: No adverse reaction ph 11:58 Drug: Ativan IVP 1 mg Route: IVP; Site: right antecubital; ph 13:26 Follow up: Response: No adverse reaction ph 11:59 Drug: Promethazine IM 25 mg Route: IM; Site: right gluteus; ph 13:26 Follow up: Response: No adverse reaction ph Disposition Summary: 10/24/22 13:04 Discharge Ordered Location: Home ms3 Condition: Stable ms3 Diagnosis - Gastroparesis ms3 - Nausea with vomiting, unspecified ms3 Followup: ms3 - With: Luis Wen MD - When: 2 - 3 days - Reason: Recheck today's complaints Discharge Instructions: - Discharge Summary Sheet ms3 - Nausea and Vomiting, Adult ms3 Forms: - Medication Reconciliation Form ms3 - Thank You Letter ms3 - Antibiotic Education ms3 - Prescription Opioid Use ms3 - Patient Portal Instructions ms3 - Leadership Thank You Letter ms3 Signatures: Dispatcher [employer] EDErnestine Basurto RN RN Alexandra Bailon RN RN Kishor Nj DO DO ms3 Corrections: (The following items were deleted from the chart) 10:28 10:26 Social history: Smoking status: Patient denies any tobacco usage or history of. hbhb
--- NOTE | 2022-10-24 13:05 | ER ---
Nurse's Notes [facility] Name: Efrem Pastor Age: 32 yrs Sex: Female : 1990 Arrival Date: 10/24/2022 Time: 10:14 Bed 6 Private MD: Diagnosis: Gastroparesis;Nausea with vomiting, unspecified Presentation: 10/24 10:24 Chief complaint: Epigastric pain 9/10 and N./V/D upon waking today. Hx of gastroparesis.hb 10:24 Coronavirus screen: At this time, the client does not indicate any symptoms associated hb with coronavirus-19. Ebola Screen: No symptoms or risks identified at this time. Initial Sepsis Screen: Does the patient meet any 2 criteria? No. Patient's initial sepsis screen is negative. Does the patient have a suspected source of infection? No. Patient's initial sepsis screen is negative. Risk Assessment: Do you want to hurt yourself or someone else? Patient reports no desire to harm self or others. Onset of symptoms was October 24, 2022. 10:24 Acuity: BELINDA 3 hb 10:25 Method Of Arrival: Ambulatory hb Triage Assessment: 11:02 GI: Reports. ph Historical: - Allergies: 10:26 Haldol; hb 10:26 Scopolamine HBr; hb - PMHx: 10:26 Gastroparesis; Irritable bowel syndrome; PTSD; hb - PSHx: 10:26 bilateral ureter attachment; Cholecystectomy; leep procedure; Lumpectomy of breast; hb right breast; - Immunization history:: Adult Immunizations up to date. - Social history:: Smoking status: Reported history of juuling and/or vaping. Screenin:01 [facility] ED Fall Risk Assessment (Adult) History of falling in the last 3 months, ph including since admission No falls in past 3 months (0 pts) Confusion or Disorientation No (0 pts) Intoxicated or Sedated No (0 pts) Impaired Gait No (0 pts) Mobility Assist Device Used No (0 pt) Altered Elimination No (0 pt) Score/Fall Risk Level 0 - 2 = Low Risk Oriented to surroundings, Maintained a safe environment, Hourly rounding (assess needs \T\ fall precautionary measures) done. Abuse screen: Denies threats or abuse. Denies injuries from another. Nutritional screening: No deficits noted. Tuberculosis screening: No symptoms or risk factors identified. Assessment: 11:02 General: Appears in no apparent distress. uncomfortable, Behavior is cooperative, ph appropriate for age. Pain: Complains of pain in abdomen. Neuro: Level of Consciousness is awake, alert, obeys commands, Oriented to person, place, time, situation. Cardiovascular: Capillary refill < 3 seconds in bilateral fingers Patient's skin is warm and dry. Respiratory: Airway is patent Respiratory effort is even, unlabored, Respiratory pattern is regular, symmetrical. GI: Abdomen is non-distended, Reports upper abdominal pain, nausea, vomiting. Derm: Skin is pink, warm \T\ dry. Musculoskeletal: Circulation, motion, and sensation intact. Range of motion: intact in all extremities. 11:29 Reassessment: No changes from previously documented assessment. Patient and/or family ll1 updated on plan of care and expected duration. Pain level reassessed. Vital Signs: 10:24 BP 148 / 108; Pulse 94; Resp 18; Temp 97.4(O); Pulse Ox 99% on R/A; Weight 63.5 kg; hb Height 5 ft. 2 in. ; Pain 9/10; 11:04 BP 151 / 117; Pulse 84; Resp 18; Pulse Ox 99% on R/A; ph 11:59 BP 159 / 107; Pulse 76; Resp 18; Pulse Ox 100% on R/A; ph 13:00 BP 135 / 101; Pulse 71; Resp 18; Pulse Ox 98% on R/A; ph 10:24 Body Mass Index 25.61 (63.50 kg, 157.48 cm) hb 10:24 Pain Scale: Adult hb ED Course: 10:20 Patient arrived in ED. mg5 10:21 Kishor Nj DO is Attending Physician. ms3 10:26 Triage completed. hb 10:27 Arm band placed on. hb 10:41 Ernestine Gillespie, RN is Primary Nurse. ph 11:00 Initial lab(s) drawn, by me, sent to lab. Inserted saline lock: 22 gauge in right ph antecubital area, using aseptic technique. Blood collected. 11:01 Patient has correct armband on for positive identification. Bed in low position. Call light in reach. Side rails up X2. Pulse ox on. NIBP on. 12:00 No provider procedures requiring assistance completed. ph 13:04 Luis Wen MD is Referral Physician. ms3 13:41 IV discontinued, intact, bleeding controlled, No redness/swelling at site. Pressure ph dressing applied. Administered Medications: 11:00 Drug: NS 0.9% IV 1000 ml Route: IV; Rate: 1 bolus; Site: right antecubital; ph 13:25 Follow up: Response: No adverse reaction; IV Status: Completed infusion; IV Intake: ph 1000ml 11:00 Drug: Famotidine IVP 20 mg Route: IVP; Site: right antecubital; ph 13:25 Follow up: Response: No adverse reaction ph 11:00 Drug: Ondansetron IVP 4 mg Route: IVP; Site: right antecubital; ph 13:25 Follow up: Response: No adverse reaction ph 11:00 Drug: metoCLOPramide IVP 10 mg Route: IVP; Site: right antecubital; ph 13:25 Follow up: Response: No adverse reaction ph 11:00 Drug: diphenhydrAMINE IVP 12.5 mg Route: IVP; Site: right antecubital; ph 13:25 Follow up: Response: No adverse reaction ph 11:58 Drug: Ativan IVP 1 mg Route: IVP; Site: right antecubital; ph 13:26 Follow up: Response: No adverse reaction ph 11:59 Drug: Promethazine IM 25 mg Route: IM; Site: right gluteus; ph 13:26 Follow up: Response: No adverse reaction ph Medication: 11:02 VIS not applicable for this client. ph Intake: 13:25 IV: 1000ml; Total: 1000ml. ph Outcome: 13:04 Discharge ordered by . ms3 13:41 Discharged to home ambulatory, with significant other. ph 13:41 Condition: good 13:41 Discharge instructions given to patient, Instructed on discharge instructions, follow up and referral plans. Demonstrated understanding of instructions, follow-up care. 13:42 Patient left the ED. ph Signatures: Ernestine Gillespie RN RN ph Alexandra Bailon RN RN Andre Helm RN RN ll1 Kishor Nj DO DO ms3 Sherly Palmer mg5 Corrections: (The following items were deleted from the chart) 10:26 10:25 Method Of Arrival: Ambulatory hb hb 10:28 10:24 BP 148 / 108; Pulse 94bpm; Resp 18bpm; Pulse Ox 99% RA; Temp 97.4F Oral; Pain hb 10/19, Adult; hb 10:28 10:26 Social history: Smoking status: Patient denies any tobacco usage or history of. hbhb
[2022-10-24 14:35] VITALS: TEMP 97.4
[2022-10-24 14:40] VITALS: BP 135/101; O2SAT 98
[2022-10-25] MEDS ORDERED: DIPHENHYDRAMINE 50 MG/ML VIAL ONE (00:38)
[2022-10-25] MEDS ORDERED: METOCLOPRAMIDE 10 MG/2mL INJ ONE (00:38)
[2022-10-25] MEDS ORDERED: FAMOTIDINE 20 MG/2 ML VIAL IV ONE (00:38)
[2022-10-25] MEDS ORDERED: NA CHLORIDE 0.9% 1,000 ML ONE (00:38)
== END 2022-10-24 13:42 | disposition home or self-care (01) ==
LOC: ER 10:14
DX: K31.84 Gastroparesis (principal); Z88.5 Allergy status to narcotic agent; Z88.8 Allergy status to other drugs, medicaments and biological substances
CPT/HCPCS: 96361; 85025; 36415; 83690; 80053; 96375; 96372; 96374; 99284; J2550; J2765; J1200; J2405; J7030

== ENCOUNTER 2022-10-25 | Emergency (ER) | payer BC ==
--- OUTSIDE RECORDS SUMMARY | 2022-10-25 00:06 | XMS REPORT | Continuity of Care Document ---
:1990 Author Organization [facility] t Address [address] [facility] [address] [place] [address] Care Team Providers Name Role Phone Ted [...] Known DA [facility] No Known DA Active [facility] No Known DA Active U [facility] scopolam DA Active OR 2020- [facility] scopolam DA Active OR RASH-HIVES [facility]10 [facility] No Known DA Active U [facility]20 [facility] No Known DA Active U [facility] 6[facility]20 [facility] No Known DA Active U [facility] 9[facility]15 [facility] 00:00: [facility] No Known DA Active U NONE [facility] 9[facility]15 [facility] Medications This patient has no known medications. Procedures This patient has no known procedures. Encounters Start End Encounter Admission Attending Care Care Encounter Source Date/Time Date/Time Type Type Clinicians Facility Department ID 2020-06-24 Inpatient [facility] [id number] [facility] 2020-05-19 Inpatient [facility] [id number] [facility] 11:42:02 [facility] 2019-07-30 Inpatient [facility] ER [id number] [facility] 21:08:00 63 [facility] 2022-06-11 2022-06-11 Emergency EM Schultz, [facility] ER [id number] [facility] 11:10:00 12:41:00 Ted [facility] 2021-02-09 2021-02-10 Emergency EM Peguero, [facility] ER [id number] [facility] 23:10:00 00:19:00 Kaelyn 49 [facility] [...] Suprapubic PainURINE SOURCE: CLEAN CATCH URINEUR HCG [id number] 11:54:00 Test Item Value Reference Range Interpretation Comments UR HCG QUAL (test code = HCGQLU) NEGATIVE NEGATIVE Indication for culture: Suprapubic PainURINE SOURCE: CLEAN CATCH URINE COMPREHENSIVE METABOLIC [id number] 11:49:00 Test Item Value Reference Range Interpretation [...] 45-117 N TOTAL (test code = ALKP) [id number] 11:49:00 Test Item Value Reference Range Interpretation Comments AMYLASE (test code = PARAM) 73 IU/L 25-115 N [id number] 11:49:00 Test Item Value Reference Range Interpretation Comments LIPASE (test code = LIP) 134 U/L 73-393 N CBC W/AUTO [id number] 11:33:00 Test Item Value Reference Range Interpretation [...] NO NORMAL code = RBCM) COMPREHENSIVE METABOLIC [id number] 16:11:00 Test Item Value Reference Range Interpretation [...] RESULT BY1.21. [Automated mess age] The system [email or web address] generated this result transmitted ref erence range: [...] 45-117 H TOTAL (test code = ALKP) [id number] 16:11:00 Test Item Value Reference Range Interpretation Comments LIPASE (test code = LIP) 108 U/L 73-393 N URINALYSIS W REFLEX [id number] 16:05:00 Test Item Value Reference Range Interpretation [...] UA MICRO code = UAMICRO) UR HCG [id number] 16:05:00 Test Item Value Reference Range Interpretation Comments UR HCG QUAL (test code = HCGQLU) NEGATIVE NEGATIVE URINALYSIS W REFLEX [id number] 16:05:00 Test Item Value Reference Range Interpretation [...] DO UA MICRO code = UAMICRO) UA [id number] 16:05:00 Test Item Value Reference Range Interpretation Comments UA WBC (test code = WBCU) 0-2 #/hpf 0-5 UA RBC (test code = RBCU) 0-2 #/hpf 0-5 UA EPITHELIAL CELLS (test code = 2+ /hpf NEG,FEW A EPIU) UA BACTERIA (test code = BACU) FEW /hpf NEGATIVE A UA AMORPHOUS SEDIMENT (test code = FEW /hpf NEG,FEW AMORU) UR HCG [id number] 16:05:00 Test Item Value Reference Range Interpretation Comments UR HCG QUAL (test code = HCGQLU) NEGATIVE NEGATIVE URINALYSIS W REFLEX [id number] 16:05:00 Test Item Value Reference Range Interpretation [...] UA MICRO code = UAMICRO) UR HCG [id number] 16:05:00 Test Item Value Reference Range Interpretation Comments UR HCG QUAL (test code = HCGQLU) NEGATIVE NEGATIVE DRUGS OF ABUSE [id number] 16:01:00 Test Item Value Reference Range Interpretation Comments UR COCAINE (test code NEGATIVE ng/ml NEGATIVE = COCAU) UR CANNABINOIDS (test POSITIVE ng/ml NEGATIVE A DALY UE EXCEEDS code = CANU) CRITICAL LEVEL. CRITICAL VALUE CALLEDTO AND CRITICAL VALUE READ BACK BY HUBER DOWNING RN 1 048 06/24/20. Chas Dixon POSITIVE URINE DRUG SCREEN [...] code = WAS TESTE D AT [facility]) LISTED CUTOFFS DRUG CLASS INIT IAL TEST LEVEL AMPHETAMINES 10 00 NG/MLBARBITURAT ES 200 NG/MLBENZODIAZE PIN ES 200 NG/MLCOCAINE METABOLITE 300 NG/MLMARIJUANA METABOLITE 50 NG/MLOPIATES 3 00 NG/MLPHENCYCLID INE 25 NG/ML URINALYSIS W REFLEX [id number] 15:58:00 Test Item Value Reference Range Interpretation [...] NEEDED? (test code = UAMICRO) UR HCG [id number] 15:58:00 Test Item Value Reference Range Interpretation Comments UR HCG QUAL (test code = HCGQLU) NEGATIVE NEGATIVE CBC W/AUTO [id number] 15:52:00 Test Item Value Reference Range Interpretation [...] NORMAL code = RBCM) URINALYSIS W REFLEX [id number] 13:00:00 Test Item Value Reference Range Interpretation [...] MICRO code = UAMICRO) UA ICTOTEST FOR [id number] 13:00:00 Test Item Value Reference Range Interpretation Comments UA ICTOTEST FOR BILIRUBIN (test code POSITIVE NEGATIVE A = ICTOU) UA [id number] 13:00:00 Test Item Value Reference Range Interpretation Comments UA WBC (test code = WBCU) 0-2 #/hpf 0-5 UA RBC (test code = RBCU) 3-5 #/hpf 0-5 UA EPITHELIAL CELLS (test code = FEW /hpf NEG,FEW EPIU) UA BACTERIA (test code = BACU) FEW /hpf NEGATIVE A UA MUCUS (test code = MUCU) 1+ /hpf NEG,FEW A UR HCG [id number] 13:00:00 Test Item Value Reference Range Interpretation Comments UR HCG QUAL (test code = HCGQLU) NEGATIVE NEGATIVE DRUGS OF ABUSE [id number] 12:57:00 Test Item Value Reference Range Interpretation [...] code = WAS TESTE D AT [facility]) LISTED CUTOFFS DRUG CLASS INIT IAL TEST LEVEL AMPHETAMINES 10 00 NG/MLBARBITURAT ES 200 NG/MLBENZODIAZE PIN ES 200 NG/MLCOCAINE METABOLITE 300 NG/MLMARIJUANA METABOLITE 50 NG/MLOPIATES 30 0 NG/MLPHENCYCLID INE 25 NG/ML URINALYSIS W REFLEX [id number] 12:56:00 Test Item Value Reference Range Interpretation [...] MICRO code = UAMICRO) UA ICTOTEST FOR [id number] 12:56:00 Test Item Value Reference Range Interpretation Comments UA ICTOTEST FOR BILIRUBIN (test code POSITIVE NEGATIVE A = ICTOU) UR HCG [id number] 12:56:00 Test Item Value Reference Range Interpretation Comments UR HCG QUAL (test code = HCGQLU) NEGATIVE NEGATIVE URINALYSIS W REFLEX [id number] 12:53:00 Test Item Value Reference Range Interpretation [...] UA MICRO code = UAMICRO) UR HCG [id number] 12:53:00 Test Item Value Reference Range Interpretation Comments UR HCG QUAL (test code = HCGQLU) NEGATIVE NEGATIVE URINALYSIS W REFLEX [id number] 12:53:00 Test Item Value Reference Range Interpretation [...] UA MICRO code = UAMICRO) UR HCG [id number] 12:53:00 Test Item Value Reference Range Interpretation Comments UR HCG QUAL (test code = HCGQLU) NEGATIVE NEGATIVE - XR ABDOMEN [id number] 12:16:00 [facility] HOSPITAL[facility]: BREANNA QUEEN : 1990 Sex: F FAX: Sawyer Centeno II [place]: St: PRE Name: BREANNA QUEEN Taft FSED : 1990 Age/S: 30/F [address] Unit #: [id number] Loc: [place] [address] Phys: Sawyer Centeno II, MD Acct: [id number] Dis Date: Status: PRE ER PHONE #: Exam Date: 05/19/2020 1212 FAX #: Reason: abdominal pain EXAMS: CPT CODE: [id number] XR ABDOMEN 2V 32870 - XR ABDOMEN 2V PROVIDED REASON FOR [...] RT Bekah (R) CT Trnscrd Date/Time/By: 05/19/2020 (1621) : By: [email or web address] Orig Print D/T: S: 05/19/2020 (1017) PAGE 1 Signed ReportBASIC METABOLIC PANEL 2020-05-19 [...] RESULT BY1.21. [Automated mess age] The system [email or web address] generated this result transmitted ref erence range: >=60. Th e reference range was not used to int erpret this result as normal/abnormal . CREATININE (test code 0.64 mg/dl 0.55-1.02 N = CREAT) CALCIUM (test code = 9.8 mg/dL 8.5-10.1 N CA) LIVER [id number] 12:08:00 Test Item Value Reference Range Interpretation [...] 119 U/L 45-117 H code = ALKP) [id number] 12:08:00 Test Item Value Reference Range Interpretation Comments LIPASE (test code = LIP) 67 U/L 73-393 L CBC W/AUTO [id number] 11:43:00 Test Item Value Reference Range Interpretation [...] NORMAL code = RBCM) URINALYSIS W REFLEX [id number] 22:06:00 Test Item Value Reference Range Interpretation [...] MUCU) 2+ /hpf NEG,FEW A BASIC METABOLIC [id number] 21:54:00 Test Item Value Reference Range Interpretation [...] = 9.3 mg/dL 8.5-10.1 N CA) LIVER [id number] 21:54:00 Test Item Value Reference Range Interpretation [...] 69 U/L 50-136 N code = ALKP) [id number] 21:54:00 Test Item Value Reference Range Interpretation Comments LIPASE (test code = LIP) 63 U/L 73-393 L BASIC METABOLIC [id number] 21:53:00 Test Item Value Reference Range Interpretation [...] = 9.3 mg/dL 8.5-10.1 N CA) LIVER [id number] 21:53:00 Test Item Value Reference Range Interpretation [...] TOTAL (test U/L 50-136 code = ALKP) [id number] 21:53:00 Test Item Value Reference Range Interpretation Comments LIPASE (test code = LIP) 63 U/L 73-393 L BASIC METABOLIC [id number] 21:52:00 Test Item Value Reference Range Interpretation [...] = 9.3 mg/dL 8.5-10.1 N CA) LIVER [id number] 21:52:00 Test Item Value Reference Range Interpretation [...] TOTAL (test U/L 50-136 code = ALKP) [id number] 21:52:00 Test Item Value Reference Range Interpretation Comments LIPASE (test code = LIP) 63 U/L 73-393 L BASIC METABOLIC [id number] 21:51:00 Test Item Value Reference Range Interpretation [...] = 9.3 mg/dL 8.5-10.1 N CA) LIVER [id number] 21:51:00 Test Item Value Reference Range Interpretation [...] TOTAL (test U/L 50-136 code = ALKP) [id number] 21:51:00 Test Item Value Reference Range Interpretation Comments LIPASE (test code = LIP) 63 U/L 73-393 L BASIC METABOLIC [id number] 21:49:00 Test Item Value Reference Range Interpretation [...] = CA) 9.3 mg/dL 8.5-10.1 N LIVER [id number] 21:49:00 Test Item Value Reference Range Interpretation [...] TOTAL (test U/L 50-136 code = ALKP) [id number] 21:49:00 Test Item Value Reference Range Interpretation Comments LIPASE (test code = LIP) 63 U/L 73-393 L BASIC METABOLIC [id number] 21:48:00 Test Item Value Reference Range Interpretation [...] = CA) 9.3 mg/dL 8.5-10.1 N LIVER [id number] 21:48:00 Test Item Value Reference Range Interpretation Comments TOTAL PROTEIN (test code = PROT) g/dl 6.4-8.2 ALBUMIN (test code = ALB) g/dl 3.4-5.0 BILIRUBIN TOTAL (test code = BILT) mg/dl 0.2-1.0 BILIRUBIN DIRECT (test code = BILD) mg/dl 0.0-0.4 SGOT/AST (test code = AST) U/L 15-37 SGPT/ALT (test code = ALT) U/L 12-78 ALKALINE PHOSPHATASE TOTAL (test code U/L 50-136 = ALKP) [id number] 21:48:00 Test Item Value Reference Range Interpretation Comments LIPASE (test code = LIP) U/L 73-393 BASIC METABOLIC [id number] 21:46:00 Test Item Value Reference Range Interpretation [...] (test code = CA) mg/dL 8.5-10.1 LIVER [id number] 21:46:00 Test Item Value Reference Range Interpretation Comments TOTAL PROTEIN (test code = PROT) g/dl 6.4-8.2 ALBUMIN (test code = ALB) g/dl 3.4-5.0 BILIRUBIN TOTAL (test code = BILT) mg/dl 0.2-1.0 BILIRUBIN DIRECT (test code = BILD) mg/dl 0.0-0.4 SGOT/AST (test code = AST) U/L 15-37 SGPT/ALT (test code = ALT) U/L 12-78 ALKALINE PHOSPHATASE TOTAL (test code U/L 50-136 = ALKP) [id number] 21:46:00 Test Item Value Reference Range Interpretation Comments LIPASE (test code = LIP) U/L 73-393 CBC W/AUTO [id number] 21:43:00 Test Item Value Reference Range Interpretation [...] Notes Date/Time Note Provider Source 2022-06-11 11:33:00-00:00 [facility] ([facility]) EMERGENCY PROVIDER REPORT REPORT#:[id number] REPORT STATUS: Signed DATE:06/11/22 TIME: 1133 PATIENT: BREANNA JIMENEZ UNIT #: [id number] ROOM/BED: AGE: 32 SEX: F PCP PHYS: Undefined Provider SERVICE AUTHOR: Ted Schultz MD * ALL edits or amendments must be made on the el [employer]/computer document * HPI-Nausea/Vomit/Diarrhea General Confirmed Patient Yes [...] % (Auto) (16 - 50 %) 22.9 [place] % (Auto) (0.0 - 13.0 %) 9.8 [...] pH (4.6 - 8.0) 7.0 Ur Specific [place] (1.001 - 1.035) 1.020 Urine Protein (NEGATIVE [...] yesterday. After discussion patient states was at [facility] at [facility] yesterday and was prescribed compazine/reglan after [...] Instructions Schedule a follow-up appointment with your [facility] Care Provider Discharge Note I have [...] symptoms should prompt an immediate return to [facility] or the closest emergency department or a call to 911. Electronically Signed by Ted Schultz MD on at [address] [facility] #:[id number] END OF REPORT 2021-02-09 23:43:00-00:00 [facility] ([facility]) EMERGENCY PROVIDER REPORT REPORT#:[id number] REPORT STATUS: Signed DATE:02/09/21 TIME: 2343 PATIENT: BREANNA JIMENEZ UNIT #: [id number] ROOM/BED: AGE: 30 SEX: F PCP PHYS: No Primary or Family Ph ysician SERVICE AUTHOR: Kaelyn Peguero MD * ALL edits or amendments must be made on the A [employer] document * XOF-Wgi-Ktac Illness General Confirmed Patient Yes Patient Type New patient Initial Greet Date/Time 02/09/21 2312 Presentation Chief Complaint Body aches, Chills, Cough Free Text HPI Notes Free Text HPI Notes 30-year-old female comes [facility] room complaining of cough, body aches, chills , that began 2 days ago. Patient has been travel ing in [facility] and apparently although she has been driving [...] Peguero MD on 04/02 at 0652 RPT #:[id number] END OF REPORT 2020-06-24 15:35:00-00:00 [facility] ([facility]) EMERGENCY PROVIDER REPORT REPORT#:[id number] REPORT STATUS: Signed DATE:06/24/20 TIME: 1534 PATIENT: BREANNA JIMENEZ UNIT #: [id number] ROOM/BED: AGE: 30 SEX: F PCP PHYS: No Primary or Family P hysician SERVICE AUTHOR: Maicol Coy MD * ALL edits or amendments must be made on the [employer]/computer document * HPI-Abd Pain F Under 40 General Initial Greet Date/Time 06/24/[address] Winn in [place], [place] Presentation Chief Complaint Abdominal pain, Nausea, [...] N/V x 6. She is visiting from [place]. Risk-Abd Pain F Under 40 )( Ectopic [...] % (Auto) (16 - 50 %) 48.2 [place] % (Auto) (0.0 - 13.0 %) 13.0 [...] pH (4.6 - 8.0) 7.0 Ur Specific [place] (1.001 - 1.035) 1.020 Urine Protein (NEGATIVE [...] and considered in e medical decision-making. Re-Evaluation [facility] )( Re-Evaluation/Progress #1 Text/Dict Note Pt states [...] and current condition do not suggest ac [place]qu[place] appendicitis, bowel obstruction, tubovarian abscess, ectopic pregnan [...] will pursue further outpatient evaluation with the [facility] care physician or other designated or consulting [...] symptoms should prompt an immediate return to [facility] or the closest emergency department or a [...] MD on 06/09 07/30 at 2053 RPT #:[id number] END OF REPORT 2020-05-19 12:11:00-00:00 [facility] ([facility]) EMERGENCY PROVIDER REPORT REPORT#:[id number] REPORT STATUS: Signed DATE:05/19/20 TIME: 1211 PATIENT: BREANNA QUEEN UNIT #: [id number] ROOM/BED: AGE: 30 SEX: F PCP PHYS: Brayan Winn MD SERVICE AUTHOR: Sawyer Centeno II, MD * ALL edits or amendments must be made on the [employer]/computer document * HPI-Abd Pain F Under 40 Free Text HPI Notes Free Text HPI Notes The patient tells me she has a history o f gastroparesis but is not a diabetic. She tells me that she is [facility] and that she has GI specialist in [place] whose name is Dr. Hendrix. She tells me she used to get Botox injections in her pilorus to treat her pain. She tells me she went to a local hospital yesterday and got s everal medications for pain but the pain did not get any better. General Confirmed Patient Yes Initial Greet Date/Time 05/19/20 1129 PCP In [facility] Presentation Chief Complaint Abdominal pain Hx [...] pH (4.6 - 8.0) 6.0 Ur Specific [place] (1.001 - 1.035) >= 1.030 Urine Protein [...] (Auto) (16 - 50 %) 9.5 L [place] % (Auto) (0.0 - 13.0 %) 4.3 [...] symptoms should prompt an immediate return to [facility] or the closest emergency department or a call to 911. Quality Measures BP F/U for HTN F/u with PCP/other doc at 1708 RPT #:[id number] END OF REPORT 2019-07-30 21:12:00-00:00 [facility] ([facility]) EMERGENCY PROVIDER REPORT REPORT#:[id number] REPORT STATUS: Signed DATE:07/30/19 TIME: 2111 PATIENT: BREANNA JIMENEZ UNIT #: [id number] ROOM/BED: AGE: 29 SEX: F PCP PHYS: No Primary or Family Ph ysician SERVICE AUTHOR: Soha Rojas * ALL edits or amendments must be made on the [employer] [place]computer document * HPI-Abd Pain F Under 40 [...] (Auto) (16.0 - 50.0 %) 15.3 L [place] % (Auto) (0.0 - 13.0 %) 5.2 [...] pH (4.6 - 8.0) 6.0 Ur Specific [place] (1.001 - 1.035) 1.017 Urine Protein (NEGATIVE [...] and current condition do not suggest ac [place] appendicitis, bowel obstruction, tubovarian abscess, ectopic pregnan [...] will pursue further outpatient evaluation with the [facility] care physician or other designated or consulting [...] symptoms should prompt an immediate return to [facility] or the closest emergency department or a call to 911. at 0000 RPT #:[id number] END OF REPORT 2019-07-30 21:12:00-00:00 [facility] ([facility]) EMERGENCY PROVIDER REPORT REPORT#:[id number] REPORT STATUS: Signed DATE:07/30/19 TIME: 2111 PATIENT: BREANNA JIMENEZ UNIT #: [id number] ROOM/BED: AGE: 29 SEX: F PCP PHYS: No Primary or Family Ph ysician SERVICE AUTHOR: Soha Rojas * ALL edits or amendments must be made on the [employer] [place]/computer document * HPI-Abd Pain F Under 40 [...] (Auto) (16.0 - 50.0 %) 15.3 L [place] % (Auto) (0.0 - 13.0 %) 5.2 [...] pH (4.6 - 8.0) 6.0 Ur Specific [place] (1.001 - 1.035) 1.017 Urine Protein (NEGATIVE [...] Care Testing Urinalysis Interpretation Urinalysis NL Re-Evaluation [facility] )( Re-Evaluation/Progress #1 Time of Re-Eval 2228 )( Re-Eval Status Improved Re-Eval Abdomen Soft Eval Following Treatment Pt. feels better, Condi tion improved Pain Re-Evaluation Pain improved Plan Post Re-Eval Plan discharge Abd Pain [facility] Note F < 40 The patient is resting comfortably and feels bet ter, is alert and in no distress. The repeat examination is unremarkable and benign; in particular, there is no discomfort at McBurney's point. The history, exam, diagnostic testing, and current condition do not suggest ac [place] appendicitis, bowel obstruction, tubovarian abscess, ectopic pregnan [...] will pursue further outpatient evaluation with the [facility] care physician or other designated or consulting [...] symptoms should prompt an immediate return to [facility] or the closest emergency department or a call to 911. at 0000 Electronically Signed by Ulises Pearson MD on at 0024 RPT #:[id number] END OF REPORT
[2022-10-25 00:35] LABS: Absolute Lymphocytes (CBC) 0.8 K/uL (0.7-4.9); Hematocrit 36.7 % (36.0-45.0); Lymphocytes % 9.6 % (15.3-44.8); MCV 84.1 fL (80-100); MPV 9.9 fL (7.6-11.3); Platelets 244 thou/uL (152-406); RBC Red Blood Cell Count 4.37 M/uL (3.86-4.86)
[2022-10-25 00:53] LABS: Albumin 3.6 g/dL (3.4-5.0); Bilirubin Total 0.6 mg/dL (0.2-1.0); Potassium 3.9 mEq/L (3.5-5.1); Protein, Total 7.7 g/dL (6.4-8.2)
--- NOTE | 2022-10-25 02:20 | EDPHYS ---
Physician Documentation [facility] Name: Efrem Pastor Age: 32 yrs Sex: Female : 1990 Arrival Date: 10/25/2022 Time: 00:00 Bed 7 Private MD: ED Physician Brayan Terrell HPI: 10/25 00:20 This 32 yrs old Female presents to ER via EMS with complaints of Abdominal Pain. cp 00:20 The patient presents with abdominal pain nausea and vomiting. cp 00:20 Possible causes: flare up of bowel problem, irritable bowel disease. cp 00:20 Associated signs and symptoms: Pertinent negatives: constipation, diarrhea, fever, GI cp bleeding. The patient has been recently seen at the [facility] Emergency Department, yesterday, for similar complaints. Historical: - Allergies: 00:06 Haldol; rv 00:06 Scopolamine HBr; rv - PMHx: 00:06 Gastroparesis; Irritable bowel syndrome; PTSD; rv - PSHx: 00:06 bilateral ureter attachment; Cholecystectomy; leep procedure; Lumpectomy of breast; rv right breast; - Immunization history:: Adult Immunizations up to date. - Social history:: Smoking status: Patient denies any tobacco usage or history of. ROS: 00:25 Constitutional: Positive for poor PO intake, Negative for body aches, chills, fever. cp 00:25 Eyes: Negative for injury, pain, redness, and discharge. cp 00:25 ENT: Negative for drainage from ear(s), ear pain, sore throat, difficulty swallowing, difficulty handling secretions. 00:25 Cardiovascular: Negative for chest pain. 00:25 Respiratory: Negative for cough, shortness of breath, wheezing. 00:25 Abdomen/GI: Positive for abdominal pain, nausea and vomiting, Negative for diarrhea, constipation, hematemesis, black/tarry stool, rectal bleeding. 00:25 Back: Negative for radiated pain. 00:25 : Negative for urinary symptoms. 00:25 Neuro: Negative for altered mental status, headache. 00:25 All other systems are negative. Exam: 00:30 Constitutional: The patient appears in no acute distress, alert, awake, non-toxic, well cp developed, well nourished, uncomfortable. 00:30 Head/Face: Normocephalic, atraumatic. cp 00:30 Eyes: Periorbital structures: appear normal, Conjunctiva: normal, no exudate, no injection, Sclera: no appreciated abnormality, Lids and lashes: appear normal, bilaterally. 00:30 ENT: External ear(s): are unremarkable, Nose: is normal, Mouth: Lips: moist, Oral mucosa: pink and intact, moist, Posterior pharynx: is normal, airway is patent, no erythema, no exudate. 00:30 Chest/axilla: Inspection: normal. 00:30 Cardiovascular: Rate: normal, Rhythm: regular. 00:30 Respiratory: the patient does not display signs of respiratory distress, Respirations: normal, no use of accessory muscles, no retractions, labored breathing, is not present, Breath sounds: are clear throughout, no decreased breath sounds, no stridor, no wheezing. 00:30 Abdomen/GI: Inspection: abdomen appears normal, Bowel sounds: active, all quadrants, Palpation: soft, in all quadrants, moderate abdominal tenderness, in all quadrants, rebound tenderness, is not appreciated. 00:30 Back: pain, is absent, ROM is normal. 00:30 Neuro: Orientation: to person, place \T\ time. Mentation: is normal. Vital Signs: 00:03 BP 153 / 99; Pulse 90; Resp 20; Temp 98.2; Pulse Ox 100% ; Weight 63.5 kg; Height 5 ft. rv 2 in. ; 00:48 BP 146 / 101; Pulse 102; Resp 19; Pulse Ox 100% on R/A; rv 01:30 BP 118 / 86; Pulse 94; Resp 16 S; Pulse Ox 98% on R/A; jw7 02:12 BP 123 / 86; Pulse 93; Resp 18; Pulse Ox 100% on R/A; rv 00:03 Body Mass Index 25.61 (63.50 kg, 157.48 cm) rv Feliz Coma Score: 02:12 Eye Response: spontaneous(4). Motor Response: obeys commands(6). Verbal Response: rv oriented(5). Total: 15. MDM: 00:05 Patient medically screened. cp 02:18 Data reviewed: vital signs, nurses notes, lab test result(s). cp 02:18 Differential diagnosis: gastritis, pancreatitis, viral gastroenteritis, cp gastroenteritis, bowel obstruction, GI Bleed. Consideration of Admission/Observation Escalation of care including admission/observation considered. I considered the following discharge prescriptions or medication management in the emergency department Medications were administered in the Emergency Department. See MAR. Test considered but Not performed: CT: abdomen/pelvis. 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 Response to treatment: the patient's symptoms have markedly improved after treatment, patient tolerating po fluids, and as a result, I will discharge patient. Special discussion: Based on the patient's Hx, exam, and Dx evaluation, there is no indication for emergent surgery or inpatient Tx. It is understood by the patient/guardian that if the Sx's persist or worsen they need to return immediately for re-evaluation. 10/25 00:13 Order name: CBC with Diff; Complete Time: 00:36 cp 10/25 00:37 Interpretation: Normal except: RDW 16.2; KIMBERLY% 84.7; LYM% 9.6. cp 10/25 00:13 Order name: CMP; Complete Time: 00:56 cp 10/25 01:11 Interpretation: Normal except: CL 109; GLUC 123; ALK 126; GLOB 4.1; A/G 0.9. cp 10/25 00:13 Order name: Lipase; Complete Time: 00:56 cp 10/25 01:12 Order name: XRAY Chest (1 view) cp 10/25 00:13 Order name: IV Saline Lock; Complete Time: 00:27 cp 10/25 00:13 Order name: Labs collected and sent; Complete Time: 00:27 cp 10/25 01:12 Order name: PO challenge; Complete Time: 02:11 cp Administered Medications: 00:36 Drug: NS 0.9% IV 1000 ml Route: IV; Rate: 1 bolus; Site: right antecubital; jw7 02:11 Follow up: IV Status: Completed infusion; IV Intake: 1000ml rv 00:36 Drug: Famotidine IVP 20 mg Route: IVP; Site: right antecubital; jw7 02:11 Follow up: Response: No adverse reaction rv 00:36 Drug: metoCLOPramide IVP 10 mg Route: IVP; Site: right antecubital; jw7 02:11 Follow up: Response: No adverse reaction rv 00:36 Drug: diphenhydrAMINE IVP 25 mg Route: IVP; Site: right antecubital; jw7 02:11 Follow up: Response: No adverse reaction rv 02:41 Drug: Promethazine IVP 12.5 mg Route: IVP; Site: right antecubital; rv 02:41 Follow up: Response: Medication administered at discharge. rv Disposition Summary: 10/25/22 02:19 Discharge Ordered Location: Home cp Problem: an acute exacerbation cp Symptoms: have improved cp Condition: Stable cp Diagnosis - Nausea with vomiting, unspecified cp - Abdominal pain, unspecified cp Followup: cp - With: Private Physician - When: 2 - 3 days - Reason: Recheck today's complaints Discharge Instructions: - Discharge Summary Sheet cp - Abdominal Pain, Adult cp - Nausea and Vomiting, Adult cp Forms: - Medication Reconciliation Form cp - Thank You Letter cp - Antibiotic Education cp - Prescription Opioid Use cp - Patient Portal Instructions cp - Leadership Thank You Letter cp Prescriptions: - promethazine 50 mg Rectal suppository - insert 1 suppository by RECTAL route every 8 hours As needed; 10 suppository; cp Refills: 0, Product Selection Permitted - promethazine 25 mg Oral Tablet - take 1 tablet by ORAL route every 6 hours As needed; 20 tablet; Refills: 0, cp Product Selection Permitted Signatures: Dispatcher [employer] Billy Tapia PA PA cp Rowdy Casillas RN RN rv Debby Wray RN RN jw7 Brayan Terrell MD MD rt
--- NOTE | 2022-10-25 02:20 | ER ---
Nurse's Notes [facility] Name: Efrem Pastor Age: 32 yrs Sex: Female : 1990 Arrival Date: 10/25/2022 Time: 00:00 Bed 7 Private MD: Diagnosis: Nausea with vomiting, unspecified;Abdominal pain, unspecified Presentation: 10/25 00:03 Chief complaint: EMS states: pt was seen earlier today and diagnosed with gastric rv pheresis, discharged. N/V and abd pain progressed throughout the day. Coronavirus screen: At this time, the client does not indicate any symptoms associated with coronavirus-19. Ebola Screen: No symptoms or risks identified at this time. Initial Sepsis Screen: Does the patient meet any 2 criteria? No. Patient's initial sepsis screen is negative. Does the patient have a suspected source of infection? No. Patient's initial sepsis screen is negative. Risk Assessment: Do you want to hurt yourself or someone else? Patient reports no desire to harm self or others. Onset of symptoms was October 24, 2022. 00:03 Method Of Arrival: EMS: [facility] rv 00:03 Acuity: BELINDA 3 rv Triage Assessment: 00:06 General: Appears uncomfortable, ill, Behavior is calm, cooperative. Pain: Complains of rv pain in abdomen. Neuro: Level of Consciousness is awake, alert, obeys commands, Oriented to person, place, time, situation. Cardiovascular: Capillary refill Patient's skin is warm and dry. Rhythm is. Respiratory: Airway is patent. GI: Abdomen is flat, non-distended, Reports lower abdominal pain, upper abdominal pain, nausea, vomiting. Derm: Skin is intact. Historical: - Allergies: 00:06 Haldol; rv 00:06 Scopolamine HBr; rv - PMHx: 00:06 Gastroparesis; Irritable bowel syndrome; PTSD; rv - PSHx: 00:06 bilateral ureter attachment; Cholecystectomy; leep procedure; Lumpectomy of breast; rv right breast; - Immunization history:: Adult Immunizations up to date. - Social history:: Smoking status: Patient denies any tobacco usage or history of. Screenin:07 [facility] ED Fall Risk Assessment (Adult) History of falling in the last 3 months, rv including since admission No falls in past 3 months (0 pts) Score/Fall Risk Level 0 - 2 = Low Risk Oriented to surroundings, Maintained a safe environment, Educated pt \T\ family on fall prevention, incl call for assistance when getting out of bed, Assessed \T\ reinforced patient's understanding of fall precautions, Provided non-skid footwear, Hourly rounding (assess needs \T\ fall precautionary measures) done, Used ambulatory aids as needed (educated on \T\ assisted with), Used gait belt as appropriate. Abuse screen: Denies threats or abuse. Denies injuries from another. Nutritional screening: No deficits noted. Tuberculosis screening: No symptoms or risk factors identified. Assessment: 00:08 Reassessment: SEE TRIAGE NOTES. rv 01:00 Reassessment: Patient appears in no apparent distress at this time. Patient and/or jw7 family updated on plan of care and expected duration. Pain level reassessed. Patient is alert, oriented x 3, equal unlabored respirations, skin warm/dry/pink. 02:00 General: Appears comfortable, Behavior is calm, cooperative. rv 02:42 Reassessment: PO CHALLENGE SUCCESFUL. rv Vital Signs: 00:03 BP 153 / 99; Pulse 90; Resp 20; Temp 98.2; Pulse Ox 100% ; Weight 63.5 kg; Height 5 ft. rv 2 in. ; 00:48 BP 146 / 101; Pulse 102; Resp 19; Pulse Ox 100% on R/A; rv 01:30 BP 118 / 86; Pulse 94; Resp 16 S; Pulse Ox 98% on R/A; jw7 02:12 BP 123 / 86; Pulse 93; Resp 18; Pulse Ox 100% on R/A; rv 00:03 Body Mass Index 25.61 (63.50 kg, 157.48 cm) rv Feliz Coma Score: 02:12 Eye Response: spontaneous(4). Motor Response: obeys commands(6). Verbal Response: rv oriented(5). Total: 15. ED Course: 00:03 Patient arrived in ED. rv 00:05 Billy Kilpatrick PA is PHCP. cp 00:05 Brayan Terrell MD is Attending Physician. cp 00:06 Triage completed. rv 00:06 Arm band placed on right wrist. rv 00:07 Patient has correct armband on for positive identification. Client placed on continuous rv cardiac and pulse oximetry monitoring. NIBP monitoring applied. interlocker maintainer on. 00:07 No provider procedures requiring assistance completed. Maintain EMS IV. Dressing rv intact. Good blood return noted. Site clean \T\ dry. Gauge \T\ site: g20 RAC. 00:25 KrystensDebby RN is Primary Nurse. jw7 00:27 CBC with Diff Sent. jw7 00:27 CMP Sent. jw7 00:28 Lipase Sent. jw7 00:28 Initial lab(s) drawn, by me, sent to lab. 5 02:03 XRAY Chest (1 view) In Process Unspecified. EDMS 02:43 Provided Education on: PAIN AND VOMITING/ MEDICATIONS. rv 02:43 IV discontinued, intact, bleeding controlled, No redness/swelling at site. Pressure rv dressing applied. Administered Medications: 00:36 Drug: NS 0.9% IV 1000 ml Route: IV; Rate: 1 bolus; Site: right antecubital; jw7 02:11 Follow up: IV Status: Completed infusion; IV Intake: 1000ml rv 00:36 Drug: Famotidine IVP 20 mg Route: IVP; Site: right antecubital; jw7 02:11 Follow up: Response: No adverse reaction rv 00:36 Drug: metoCLOPramide IVP 10 mg Route: IVP; Site: right antecubital; jw7 02:11 Follow up: Response: No adverse reaction rv 00:36 Drug: diphenhydrAMINE IVP 25 mg Route: IVP; Site: right antecubital; jw7 02:11 Follow up: Response: No adverse reaction rv 02:41 Drug: Promethazine IVP 12.5 mg Route: IVP; Site: right antecubital; rv 02:41 Follow up: Response: Medication administered at discharge. rv Medication: 00:08 VIS not applicable for this client. rv Intake: 02:11 IV: 1000ml; Total: 1000ml. rv Outcome: 02:19 Discharge ordered by . cp 02:42 Discharged to home ambulatory, via wheelchair. rv 02:42 Condition: improved 02:42 Discharge instructions given to patient, Instructed on discharge instructions, follow up and referral plans. medication usage, Demonstrated understanding of instructions, follow-up care, medications, Prescriptions given X 2. 02:43 Patient left the ED. rv Signatures: Dispatcher [facility] Billy Kilpatrick PA PA cp Vicente, Ronaldo, RN RN rv Nils, Debby RN RN jw7 Shreya Ferreira 5
[2022-10-25] MEDS ORDERED: PROMETHAZINE INJ 25 MG/ML AMP ONE (02:43)
[2022-10-25 02:49] VITALS: TEMP 98.2
[2022-10-25 02:55] VITALS: BP 123/86; O2SAT 100
--- NOTE | 2022-10-25 22:01 | RAD REPORT ---
EXAM DESCRIPTION: RAD - Chest Single View - 10/25/2022 2:01 am CLINICAL HISTORY: Nausea/vomiting COMPARISON: None. FINDINGS: Single frontal radiograph view of the chest. Cardiomediastinal silhouette: Normal size and contour. Lungs: Parahilar peribronchial interstitial opacities. No pneumothorax or large effusion. Bones: No acute osseous abnormality. Upper abdomen: No abnormality identified. IMPRESSION: 1. Parahilar peribronchial interstitial opacities. These findings are commonly seen with bronchitis or reactive airways disease. Electronically signed by: Anibal Gao 10/25/2022 2:18 AM CDT Due to temporary technical issues with the PACS/Fluency reporting system, reports are being signed by the in house radiologists without review as a courtesy to insure prompt reporting. The interpreting radiologist is fully responsible for the content of the report.
== END 2022-10-25 02:43 | disposition home or self-care (01) ==
LOC: ER
DX: R11.2 Nausea with vomiting, unspecified (principal); R10.9 Unspecified abdominal pain; Z88.5 Allergy status to narcotic agent; Z88.8 Allergy status to other drugs, medicaments and biological substances
CPT/HCPCS: 96361; 85025; 36415; 83690; 80053; 71045; 96375; 96374; 99285; J2550

== ENCOUNTER 2022-11-15 14:15 | Emergency (ER) | payer BC ==
--- OUTSIDE RECORDS SUMMARY | 2022-11-15 14:19 | XMS REPORT | Continuity of Care Document ---
:1990 Author Organization [facility] t Address [address] [place] [address] Care Team Providers Name Role Phone Ted [...] Clinician haloperi DA Active SV HIVES [facility] dol 5-03 [facility] scopolam DA Active [facility] No Known DA Active U [facility] Allergie 1- [facility] 00:[facility] No Known DA Active U [facility] Allergie -16 [facility] 00:[facility] No Known DA Active U [facility]erg[facility] 5-16 [facility] scopolam DA Active GA 2020- [facility] scopolam DA Active GA RASH-HIVES [facility] ine 4-10 [facility] 00:[facility] No Known DA Active U [facility] Allergie 6-20 [facility] 00:[facility] No Known DA Active U [facility] Allergie 6-20 [facility] 00:[facility] No Known DA Active U [facility] Drug 9-15 [facility] Intolera 00:00: Regiona nces [...] Facility Department ID 2020-06-24 Inpatient [facility] [id number] [facility] 15:53[facility]22 [facility] 2020-05-19 Inpatient [facility] [id number] [facility] 11:42:02 19 [facility] 2019-07-30 Inpatient [facility] ER [id number] [facility] 21:08:00 63 [facility] 2022-06-11 2022-06-11 Emergency EM Schultz, [facility] ER [id number] [facility] 11:10:00 12:41:00 Ted [facility] 2021-02-09 2021-02-10 Emergency EM Peguero, [facility] ER [id number] [facility] 23:10:00 00:19:00 Kaelyn 49 [facility] [...] Suprapubic PainURINE SOURCE: CLEAN CATCH URINEUR HCG [id number] 11:54:00 Test Item Value Reference Range Interpretation Comments UR HCG QUAL (test code = HCGQLU) NEGATIVE NEGATIVE Indication for culture: Suprapubic PainURINE SOURCE: CLEAN CATCH URINE COMPREHENSIVE METABOLIC [id number] 11:49:00 Test Item Value Reference Range Interpretation [...] sy stem which generated this result transmit ashlye reference range : >=60. The reference r [...] 45-117 N TOTAL (test code = ALKP) [id number] 11:49:00 Test Item Value Reference Range Interpretation Comments AMYLASE (test code = PARAM) 73 IU/L 25-115 N [id number] 11:49:00 Test Item Value Reference Range Interpretation Comments LIPASE (test code = LIP) 134 U/L 73-393 N CBC W/AUTO [id number] 11:33:00 Test Item Value Reference Range Interpretation [...] NO NORMAL code = RBCM) COMPREHENSIVE METABOLIC [id number] 16:11:00 Test Item Value Reference Range Interpretation [...] RESULT BY1.21. [Automated mess age] The system eblizz generated this result transmitted ref erence range: [...] 45-117 H TOTAL (test code = ALKP) [id number] 16:11:00 Test Item Value Reference Range Interpretation Comments LIPASE (test code = LIP) 108 U/L 73-393 N URINALYSIS W REFLEX [id number] 16:05:00 Test Item Value Reference Range Interpretation [...] UA MICRO code = UAMICRO) UR HCG [id number] 16:05:00 Test Item Value Reference Range Interpretation Comments UR HCG QUAL (test code = HCGQLU) NEGATIVE NEGATIVE URINALYSIS W REFLEX [id number] 16:05:00 Test Item Value Reference Range Interpretation [...] DO UA MICRO code = UAMICRO) UA [id number] 16:05:00 Test Item Value Reference Range Interpretation Comments UA WBC (test code = WBCU) 0-2 #/hpf 0-5 UA RBC (test code = RBCU) 0-2 #/hpf 0-5 UA EPITHELIAL CELLS (test code = 2+ /hpf NEG,FEW A EPIU) UA BACTERIA (test code = BACU) FEW /hpf NEGATIVE A UA AMORPHOUS SEDIMENT (test code = FEW /hpf NEG,FEW AMORU) UR HCG [id number] 16:05:00 Test Item Value Reference Range Interpretation Comments UR HCG QUAL (test code = HCGQLU) NEGATIVE NEGATIVE URINALYSIS W REFLEX [id number] 16:05:00 Test Item Value Reference Range Interpretation [...] UA MICRO code = UAMICRO) UR HCG [id number] 16:05:00 Test Item Value Reference Range Interpretation Comments UR HCG QUAL (test code = HCGQLU) NEGATIVE NEGATIVE DRUGS OF ABUSE [id number] 16:01:00 Test Item Value Reference Range Interpretation Comments UR COCAINE (test code NEGATIVE ng/ml NEGATIVE = COCAU) UR CANNABINOIDS (test POSITIVE ng/ml NEGATIVE A DALY UE EXCEEDS code = CANU) CRITICAL LEVEL. CRITICAL VALUE CALLEDTO AND CRITICAL VALUE READ BACK BY HUBER DOWNING RN 1 198 06/24/20. Chas Dixon POSITIVE URINE DRUG SCREEN [...] NG/MLPHENCYCLID INE 25 NG/ML URINALYSIS W REFLEX [id number] 15:58:00 Test Item Value Reference Range Interpretation [...] NEEDED? (test code = UAMICRO) UR HCG [id number] 15:58:00 Test Item Value Reference Range Interpretation Comments UR HCG QUAL (test code = HCGQLU) NEGATIVE NEGATIVE CBC W/AUTO [id number] 15:52:00 Test Item Value Reference Range Interpretation [...] NORMAL code = RBCM) URINALYSIS W REFLEX [id number] 13:00:00 Test Item Value Reference Range Interpretation [...] MICRO code = UAMICRO) UA ICTOTEST FOR [id number] 13:00:00 Test Item Value Reference Range Interpretation Comments UA ICTOTEST FOR BILIRUBIN (test code POSITIVE NEGATIVE A = ICTOU) UA [id number] 13:00:00 Test Item Value Reference Range Interpretation Comments UA WBC (test code = WBCU) 0-2 #/hpf 0-5 UA RBC (test code = RBCU) 3-5 #/hpf 0-5 UA EPITHELIAL CELLS (test code = FEW /hpf NEG,FEW EPIU) UA BACTERIA (test code = BACU) FEW /hpf NEGATIVE A UA MUCUS (test code = MUCU) 1+ /hpf NEG,FEW A UR HCG [id number] 13:00:00 Test Item Value Reference Range Interpretation Comments UR HCG QUAL (test code = HCGQLU) NEGATIVE NEGATIVE DRUGS OF ABUSE [id number] 12:57:00 Test Item Value Reference Range Interpretation [...] NG/MLPHENCYCLID INE 25 NG/ML URINALYSIS W REFLEX [id number] 12:56:00 Test Item Value Reference Range Interpretation [...] MICRO code = UAMICRO) UA ICTOTEST FOR [id number] 12:56:00 Test Item Value Reference Range Interpretation Comments UA ICTOTEST FOR BILIRUBIN (test code POSITIVE NEGATIVE A = ICTOU) UR HCG [id number] 12:56:00 Test Item Value Reference Range Interpretation Comments UR HCG QUAL (test code = HCGQLU) NEGATIVE NEGATIVE URINALYSIS W REFLEX [id number] 12:53:00 Test Item Value Reference Range Interpretation [...] UA MICRO code = UAMICRO) UR HCG [id number] 12:53:00 Test Item Value Reference Range Interpretation Comments UR HCG QUAL (test code = HCGQLU) NEGATIVE NEGATIVE URINALYSIS W REFLEX [id number] 12:53:00 Test Item Value Reference Range Interpretation [...] UA MICRO code = UAMICRO) UR HCG [id number] 12:53:00 Test Item Value Reference Range Interpretation Comments UR HCG QUAL (test code = HCGQLU) NEGATIVE NEGATIVE - XR ABDOMEN [id number] 12:16:00 [facility] 1990 Sex: F FAX: Sawyer Centeno II [place]: St: PRE Name: BREANNA QUEEN [place] FSED : 1990 Age/S: 30/F [address] Unit #: [id number] Loc: [place] [address] Phys: Sawyer Centeno II, MD Acct: [id number] Dis Date: Status: PRE ER PHONE #: Exam Date: 05/19/2020 1212 FAX #: Reason: abdominal pain EXAMS: CPT CODE: [id number] XR ABDOMEN 2V 90245 - XR ABDOMEN 2V PROVIDED REASON FOR [...] RT Bekah (R) CT Trnscrd Date/Time/By: 05/19/2020 (2932) : By: [email or web address] Orig Print D/T: S: 05/19/2020 (9448) PAGE 1 Signed ReportBASIC METABOLIC PANEL 2020-05-19 [...] RESULT BY1.21. [Automated mess age] The system eblizz generated this result transmitted ref erence range: >=60. Th e reference range was not used to int erpret this result as normal/abnormal . CREATININE (test code 0.64 mg/dl 0.55-1.02 N = CREAT) CALCIUM (test code = 9.8 mg/dL 8.5-10.1 N CA) LIVER [id number] 12:08:00 Test Item Value Reference Range Interpretation [...] 119 U/L 45-117 H code = ALKP) [id number] 12:08:00 Test Item Value Reference Range Interpretation Comments LIPASE (test code = LIP) 67 U/L 73-393 L CBC W/AUTO [id number] 11:43:00 Test Item Value Reference Range Interpretation [...] NORMAL code = RBCM) URINALYSIS W REFLEX [id number] 22:06:00 Test Item Value Reference Range Interpretation [...] MUCU) 2+ /hpf NEG,FEW A BASIC METABOLIC [id number] 21:54:00 Test Item Value Reference Range Interpretation [...] = 9.3 mg/dL 8.5-10.1 N CA) LIVER [id number] 21:54:00 Test Item Value Reference Range Interpretation [...] 69 U/L 50-136 N code = ALKP) [id number] 21:54:00 Test Item Value Reference Range Interpretation Comments LIPASE (test code = LIP) 63 U/L 73-393 L BASIC METABOLIC [id number] 21:53:00 Test Item Value Reference Range Interpretation [...] = 9.3 mg/dL 8.5-10.1 N CA) LIVER [id number] 21:53:00 Test Item Value Reference Range Interpretation [...] TOTAL (test U/L 50-136 code = ALKP) [id number] 21:53:00 Test Item Value Reference Range Interpretation Comments LIPASE (test code = LIP) 63 U/L 73-393 L BASIC METABOLIC [id number] 21:52:00 Test Item Value Reference Range Interpretation [...] = 9.3 mg/dL 8.5-10.1 N CA) LIVER [id number] 21:52:00 Test Item Value Reference Range Interpretation [...] TOTAL (test U/L 50-136 code = ALKP) [id number] 21:52:00 Test Item Value Reference Range Interpretation Comments LIPASE (test code = LIP) 63 U/L 73-393 L BASIC METABOLIC [id number] 21:51:00 Test Item Value Reference Range Interpretation [...] = 9.3 mg/dL 8.5-10.1 N CA) LIVER [id number] 21:51:00 Test Item Value Reference Range Interpretation [...] TOTAL (test U/L 50-136 code = ALKP) [id number] 21:51:00 Test Item Value Reference Range Interpretation Comments LIPASE (test code = LIP) 63 U/L 73-393 L BASIC METABOLIC [id number] 21:49:00 Test Item Value Reference Range Interpretation [...] = CA) 9.3 mg/dL 8.5-10.1 N LIVER [id number] 21:49:00 Test Item Value Reference Range Interpretation [...] TOTAL (test U/L 50-136 code = ALKP) [id number] 21:49:00 Test Item Value Reference Range Interpretation Comments LIPASE (test code = LIP) 63 U/L 73-393 L BASIC METABOLIC [id number] 21:48:00 Test Item Value Reference Range Interpretation [...] = CA) 9.3 mg/dL 8.5-10.1 N LIVER [id number] 21:48:00 Test Item Value Reference Range Interpretation Comments TOTAL PROTEIN (test code = PROT) g/dl 6.4-8.2 ALBUMIN (test code = ALB) g/dl 3.4-5.0 BILIRUBIN TOTAL (test code = BILT) mg/dl 0.2-1.0 BILIRUBIN DIRECT (test code = BILD) mg/dl 0.0-0.4 SGOT/AST (test code = AST) U/L 15-37 SGPT/ALT (test code = ALT) U/L 12-78 ALKALINE PHOSPHATASE TOTAL (test code U/L 50-136 = ALKP) [id number] 21:48:00 Test Item Value Reference Range Interpretation Comments LIPASE (test code = LIP) U/L 73-393 BASIC METABOLIC [id number] 21:46:00 Test Item Value Reference Range Interpretation [...] (test code = CA) mg/dL 8.5-10.1 LIVER [id number] 21:46:00 Test Item Value Reference Range Interpretation Comments TOTAL PROTEIN (test code = PROT) g/dl 6.4-8.2 ALBUMIN (test code = ALB) g/dl 3.4-5.0 BILIRUBIN TOTAL (test code = BILT) mg/dl 0.2-1.0 BILIRUBIN DIRECT (test code = BILD) mg/dl 0.0-0.4 SGOT/AST (test code = AST) U/L 15-37 SGPT/ALT (test code = ALT) U/L 12-78 ALKALINE PHOSPHATASE TOTAL (test code U/L 50-136 = ALKP) [id number] 21:46:00 Test Item Value Reference Range Interpretation Comments LIPASE (test code = LIP) U/L 73-393 CBC W/AUTO [id number] 21:43:00 Test Item Value Reference Range Interpretation [...]
[2022-11-15] MEDS ORDERED: ONDANSETRON 4 MG/2 ML VIAL ONE (14:40)
[2022-11-15] MEDS ORDERED: MORPHINE 4 MG/ML SYR ONE (14:40)
[2022-11-15] MEDS ORDERED: NA CHLORIDE 0.9% 1,000 ML ONE (14:40)
[2022-11-15 15:10] LABS: Absolute Lymphocytes (CBC) 2.7 K/uL (0.7-4.9); Hematocrit 42.1 % (36.0-45.0); Lymphocytes % 19.3 % (15.3-44.8); MCV 84.6 fL (80-100); MPV 10.5 fL (7.6-11.3); Platelets 308 thou/uL (152-406); RBC Red Blood Cell Count 4.98 M/uL (3.86-4.86)
[2022-11-15 15:13] LABS: Specific Gravity 1.028 (1.005-1.030)
[2022-11-15 15:22] LABS: Specific Gravity 1.028 (1.005-1.030); Urine Bacteria None Seen /HPF (<20); Urine Bilirubin 1+ (Negative); Urine Blood Negative (Negative); Urine Clarity Clear (Clear); Urine Color Light-Yellow (Yellow); Urine Glucose NEGATIVE (Negative); Urine Mucus 1+ /HPF (None Seen); Urine Protein 1+ (Negative); Urine RBC None Seen /HPF (None Seen); Urine Urobilinogen Normal (Normal)
[2022-11-15 15:34] LABS: Albumin 3.8 g/dL (3.4-5.0); Bilirubin Total 0.5 mg/dL (0.2-1.0); Potassium 3.8 mEq/L (3.5-5.1)
--- NOTE | 2022-11-15 15:40 | EDPHYS ---
Physician Documentation [facility] Name: Efrem Pastor Age: 32 yrs Sex: Female : 1990 Arrival Date: 11/15/2022 Time: 14:15 Bed 13 Private MD: ED Physician Brayan Terrell HPI: 11/15 14:25 This 32 yrs old Female presents to ER via Ambulatory with complaints of Abdominal Pain, jh7 Nausea/Vomiting. 14:25 The patient presents with abdominal pain in the epigastric area. Onset: The jh7 symptoms/episode began/occurred at 09:00. The symptoms do not radiate. Associated signs and symptoms: Pertinent positives: nausea and vomiting, Pertinent negatives: constipation, diarrhea, fever, headache, shortness of breath, vaginal discharge, vomiting blood. 32-year-old female with a history of gastroparesis and IBS presents to the ER with complaints of epigastric pain and nausea vomiting since 9 AM. She has a history of cholecystectomy. She is a patient of Dr. Feliciano.. 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 - Social history:: Smoking status: Reported history of juuling and/or vaping. ROS: 14:25 Constitutional: Negative for fever, chills, and weight loss, Eyes: Negative for injury, jh7 pain, redness, and discharge, ENT: Negative for injury, pain, and discharge, Cardiovascular: Negative for chest pain, palpitations, and edema, Respiratory: Negative for shortness of breath, cough, wheezing, and pleuritic chest pain, Back: Negative for injury and pain, MS/Extremity: Negative for injury and deformity, Skin: Negative for injury, rash, and discoloration, Neuro: Negative for headache, weakness, numbness, tingling, and seizure, 14:25 Abdomen/GI: Positive for abdominal pain, nausea and vomiting, Negative for diarrhea, constipation, black/tarry stool, rectal pain, rectal bleeding, 14:25 All other systems are negative, Exam: 14:25 Head/Face: Normocephalic, atraumatic. ENT: Nares patent. No nasal discharge, no [facility] septal abnormalities noted. Tympanic membranes are normal and external auditory canals are clear. Oropharynx with no redness, swelling, or masses, exudates, or evidence of obstruction, uvula midline. Mucous membranes moist. Cardiovascular: Regular rate and rhythm with a normal S1 and S2. No gallops, murmurs, or rubs. Normal PMI, no JVD. No pulse deficits. Respiratory: Lungs have equal breath sounds bilaterally, clear to auscultation and percussion. No rales, rhonchi or wheezes noted. No increased work of breathing, no retractions or nasal flaring. Back: No spinal tenderness. No costovertebral tenderness. Full range of motion. Skin: Warm, dry with normal turgor. Normal color with no rashes, no lesions, and no evidence of cellulitis. MS/ Extremity: Pulses equal, no cyanosis. Neurovascular intact. Full, normal range of motion. Neuro: Awake and alert, GCS 15, oriented to person, place, time, and situation. Motor strength 5/5 in all extremities. Sensory grossly intact. Normal gait. 14:25 Constitutional: The patient appears alert, awake, uncomfortable, 14:25 Abdomen/GI: Inspection: abdomen appears normal, Bowel sounds: normal, Palpation: soft, mild abdominal tenderness, in the epigastric area, Vital Signs: 14:23 BP 159 / 103; Pulse 78; Resp 18; Temp 97.2; Pulse Ox 98% on R/A; Weight 63.5 kg; Height ll1 5 ft. 2 in. ; Pain 8/10; 15:06 BP 154 / 98; Pulse 64; Resp 16; Pulse Ox 97% on R/A; mb9 15:40 BP 147 / 99; Pulse 75; Resp 16; Pulse Ox 97% on R/A; mb9 14:23 Body Mass Index 25.61 (63.50 kg, 157.48 cm) ll1 14:23 Pain Scale: Adult ll1 MDM: 14:18 Patient medically screened. [facility] 15:40 Differential diagnosis: non-specific abd pain, urinary tract infection, Gastroparesis, jh7 IBS, viral gastroenteritis. Data reviewed: vital signs, nurses notes. I considered the following discharge prescriptions or medication management in the emergency department Medications were administered in the Emergency Department. See MAR. Counseling: I had a detailed discussion with the patient and/or guardian regarding the historical points, exam findings, and any diagnostic results supporting the discharge/admit diagnosis, to return to the emergency department if symptoms worsen or persist or if there are any questions or concerns that arise at home. Response to treatment: the patient's symptoms have markedly improved after treatment. 11/15 14: Order name: CBC with Diff; Complete Time: 15:15 [facility] 11/15 14: Order name: CMP; Complete Time: 15:34 [facility] 11/15 14: Order name: Lipase; Complete Time: 15: [facility] 11/15 14: Order name: Test, Urine; Complete Time: 15:25 [facility] 11/15 14:26 Order name: Urinalysis w/ reflexes; Complete Time: 15:25 [facility] 11/15 14:26 Order name: IV Saline Lock; Complete Time: 14: [facility] 11/15 14:26 Order name: Labs collected and sent; Complete Time: 14: [facility] Administered Medications: 14:15 Drug: NS 0.9% IV 1000 ml IV at 1 bolus Per protocol; 1000 mL bolus Route: IV; Rate: 1 mb9 bolus; Site: right antecubital; 16:02 Follow up: Response: No adverse reaction; IV Status: Completed infusion mb9 14:28 Drug: Ondansetron IVP 4 mg IVP once; over 2 minutes Route: IVP; Site: right antecubital;mb9 15:06 Follow up: Response: No adverse reaction mb9 14:33 Drug: morphine IVP or IV 4 mg IVP once over 4 mins Route: IVP; Infused Over: 4 mins; mb9 Site: right antecubital; 15:07 Follow up: Response: No adverse reaction mb9 15:50 Drug: Promethazine IM 25 mg IM once Route: IM; Site: right gluteus; mb9 16:02 Follow up: Response: No adverse reaction mb9 Disposition: 16:07 Co-signature as Attending Physician, Brayan Terrell MD I reviewed the patient's care rt provided by the Advanced Practice Provider and agree with the diagnosis and treatment plan. Disposition Summary: 11/15/22 15:39 Discharge Ordered Notes: Location: Home [facility] Problem: chronic [facility] Symptoms: have improved [facility] Condition: Stable [facility] Diagnosis - Nausea with vomiting, unspecified [facility] Followup: [facility] - With: Private Physician - When: 2 - 3 days - Reason: Recheck today's complaints Discharge Instructions: - Discharge Summary Sheet [facility] - Nausea and Vomiting, Adult [facility] - Gastroparesis [facility] Forms: - Medication Reconciliation Form [facility] - Thank You Letter [facility] - Patient Portal Instructions [facility] - Leadership Thank You Letter [facility] Prescriptions: - Levsin 0.125 mg Oral Tablet - take 1 tablet ORAL route every 8 hours; 30 tablet; Refills: 0, Product [facility] Selection Permitted - promethazine 25 mg Oral Tablet - take 1 tablet ORAL route every 6 hours As needed; 20 tablet; Refills: 0, [facility] Product Selection Permitted Signatures: Dispatcher [employer] EDAndre Lyles RN RN ll1 Tisha Hunter, DRAW STRING KNOTTER DRAW STRING KNOTTER [facility] Kira Hodges RN RN mb9 Brayan Terrell MD MD rt Corrections: (The following items were deleted from the chart) 15:29 14:26 Abdomen Pelvis W Con+CT.RAD.BRZ ordered. EDMS EDMS
--- NOTE | 2022-11-15 15:40 | ER ---
Nurse's Notes [facility] Name: Efrem Pastor Age: 32 yrs Sex: Female : 1990 Arrival Date: 11/15/2022 Time: 14:15 Bed 13 Private MD: Diagnosis: Nausea with vomiting, unspecified Presentation: 11/15 14:23 Chief complaint: Patient states: Upper abdominal pain with N/V. Had R sheath injection ll1 3 weeks ago. Coronavirus screen: Client denies travel out of the [place] in the last 14 days. fatigue, nausea, vomiting. Client presents with at least one sign or symptom that may indicate coronavirus-19. Standard/surgical mask placed on the client. Ebola Screen: Patient denies travel to an Ebola-affected area in the 21 days before illness onset. Initial Sepsis Screen: Does the patient meet any 2 criteria? No. Patient's initial sepsis screen is negative. Does the patient have a suspected source of infection? Yes: Acute abdominal pain. Risk Assessment: Do you want to hurt yourself or someone else? Patient reports no desire to harm self or others. Onset of symptoms was November 15, 2022. 14:23 Method Of Arrival: Ambulatory [facility] 14:23 Acuity: BELINDA 3 ll1 Triage Assessment: 14:25 General: Appears uncomfortable, ill, Behavior is calm, cooperative, appropriate for 2 age. Pain: Complains of pain in abdomen Pain currently is 8 out of 10 on a pain scale. GI: Reports upper abdominal pain, nausea, vomiting. 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 - Social history:: Smoking status: Reported history of juuling and/or vaping. Screenin:34 [facility] ED Fall Risk Assessment (Adult) History of falling in the last 3 months, mb9 including since admission No falls in past 3 months (0 pts) Confusion or Disorientation No (0 pts) Intoxicated or Sedated No (0 pts) Impaired Gait No (0 pts) Mobility Assist Device Used No (0 pt) Altered Elimination No (0 pt) Score/Fall Risk Level 0 - 2 = Low Risk. [facility] ED Fall Risk Assessment (Adult) Score/Fall Risk Level 0 - 2 = Low Risk Oriented to surroundings, Maintained a safe environment, Educated pt \T\ family on fall prevention, incl call for assistance when getting out of bed. Abuse screen: Denies threats or abuse. Nutritional screening: No deficits noted. Tuberculosis screening: No symptoms or risk factors identified. Assessment: 14:33 General: Appears uncomfortable, Behavior is calm, cooperative. Pain: Complains of pain mb9 in abdomen Pain does not radiate. Pain currently is 8 out of 10 on a pain scale. Quality of pain is described as throbbing, Pain began suddenly, Is continuous. Neuro: Vargas Agitation-Sedation Scale (RASS): 0 - Alert and Calm Level of Consciousness is awake, alert, obeys commands, Oriented to person, place, time, situation, Appropriate for age. Cardiovascular: Patient's skin is warm and dry. Respiratory: Airway is patent Respiratory effort is even, unlabored, Respiratory pattern is regular, symmetrical. GI: Abdomen is round non-distended, Bowel sounds present X 4 quads. Abd is soft Abdomen is tender to palpation in epigastric area and umbilical area Reports nausea, vomiting. : No signs and/or symptoms were reported regarding the genitourinary system. EENT: No signs and/or symptoms were reported regarding the EENT system. Derm: Skin is pink, warm \T\ dry. Musculoskeletal: Range of motion: intact in all extremities. 15:40 Reassessment: Patient and/or family updated on plan of care and expected duration. Pain mb9 level reassessed. Patient is alert, oriented x 3, equal unlabored respirations, skin warm/dry/pink. Patient states feeling better. Patient states symptoms have improved. 16:02 Reassessment: No changes from previously documented assessment. Patient and/or family mb9 updated on plan of care and expected duration. Pain level reassessed. Patient is alert, oriented x 3, equal unlabored respirations, skin warm/dry/pink. Vital Signs: 14:23 BP 159 / 103; Pulse 78; Resp 18; Temp 97.2; Pulse Ox 98% on R/A; Weight 63.5 kg; Height ll1 5 ft. 2 in. ; Pain 8/10; 15:06 BP 154 / 98; Pulse 64; Resp 16; Pulse Ox 97% on R/A; mb9 15:40 BP 147 / 99; Pulse 75; Resp 16; Pulse Ox 97% on R/A; mb9 14:23 Body Mass Index 25.61 (63.50 kg, 157.48 cm) ll1 14:23 Pain Scale: Adult ll1 ED Course: 14:17 Patient arrived in ED. rg4 14:17 [facility] jh7 14:18 Brayan Terrell MD is Attending Physician. jh7 14:19 Kira Hodges RN is Primary Nurse. mb9 14:19 Arm band placed on. mb9 14:19 Placed in gown. Bed in low position. Call light in reach. Side rails up X 1. Client mb9 placed on continuous cardiac and pulse oximetry monitoring. NIBP monitoring applied. 14:20 Inserted saline lock: 20 gauge in right antecubital area, using aseptic technique. mb9 Blood collected. 14:25 Triage completed. ll1 14:33 CBC with Diff Sent. mb9 14:33 CMP Sent. mb9 14:33 Lipase Sent. mb9 14:35 No provider procedures requiring assistance completed. mb9 16:03 IV discontinued, intact, bleeding controlled, No redness/swelling at site. Pressure mb9 dressing applied. Administered Medications: 14:15 Drug: NS 0.9% IV 1000 ml IV at 1 bolus Per protocol; 1000 mL bolus Route: IV; Rate: 1 mb9 bolus; Site: right antecubital; 16:02 Follow up: Response: No adverse reaction; IV Status: Completed infusion mb9 14:28 Drug: Ondansetron IVP 4 mg IVP once; over 2 minutes Route: IVP; Site: right antecubital;mb9 15:06 Follow up: Response: No adverse reaction mb9 14:33 Drug: morphine IVP or IV 4 mg IVP once over 4 mins Route: IVP; Infused Over: 4 mins; mb9 Site: right antecubital; 15:07 Follow up: Response: No adverse reaction mb9 15:50 Drug: Promethazine IM 25 mg IM once Route: IM; Site: right gluteus; [email or web address] 16:02 Follow up: Response: No adverse reaction mb9 Medication: 14:35 VIS not applicable for this client. mb9 Outcome: 15:39 Discharge ordered by . will 16:03 Discharged to home ambulatory, with family, [email or web address] 16:03 Condition: stable 16:03 Discharge instructions given to patient, Instructed on discharge instructions, follow up and referral plans. Demonstrated understanding of instructions, follow-up care, medications, Prescriptions given X 2, 16:03 Patient left the ED. mb9 Signatures: Malathi Hou rg4 Andre Helm, RN RN ll1 Tisha Hunter, NURSE RESEARCH NURSE RESEARCH 7 Kira Hodges RN RN mb9
[2022-11-15] MEDS ORDERED: PROMETHAZINE INJ 25 MG/ML AMP ONE (15:54)
[2022-11-15 16:22] VITALS: TEMP 97.2
[2022-11-15 16:28] VITALS: O2SAT 97
[2022-11-15 16:30] VITALS: BP 147/99
== END 2022-11-15 16:03 | disposition home or self-care (01) ==
LOC: ER 14:15
DX: K31.89 Other diseases of stomach and duodenum (principal); R11.2 Nausea with vomiting, unspecified; F17.290 Nicotine dependence, other tobacco product, uncomplicated; Z88.8 Allergy status to other drugs, medicaments and biological substances
CPT/HCPCS: 96361; 85025; 81001; 36415; 81025; 83690; 80053; 96375; 96372; 96374; 99284; J2550; J2405; J7030

== ENCOUNTER 2022-12-06 16:41 | Emergency (ER) | payer BC ==
--- OUTSIDE RECORDS SUMMARY | 2022-12-06 16:46 | XMS REPORT | Continuity of Care Document ---
:1990 Author Organization [facility] t Address [address] [place] [address] Care Team Providers Name Role Phone Ted [...] Clinician haloperi DA Active SV [facility] dol 5-03 [facility] scopolam DA Active [facility] No Known DA Active U [facility] Allergie 1- [facility] No Known DA Active U [facility] Allergie -16 [facility] No Known DA Active U [facility] Allergie 5-16 [facility] 00:[facility] scopolam DA Active [place] 2020- [facility] scopolam DA Active [place] RASH-HIVES [facility] 4[facility]10 [facility] No Known DA Active U [facility] Allergie 6-20 [facility] 00:[facility] No Known DA Active U [facility] Allergie 6-20 [facility] 00:[facility] No Known DA Active U [facility] Drug 9-15 [facility] Intolera 00:00: [facility] No Known DA Active U NONE [facility] Drug 9-15 [facility] Intolera 00:00: [facility] Medications This patient has no known medications. Procedures This patient has no known procedures. Encounters Start End Encounter Admission Attending Care Care Encounter Source Date/Time Date/Time Type Type Clinicians Facility Department ID 2020-06-24 Inpatient [facility] [id number] [facility] 15:53[facility]22 [facility] 2020-05-19 Inpatient [facility] [id number] [facility] 11:42:02 19 [facility] 2019-07-30 Inpatient [facility] ER [id number] [facility] 21:08:00 63 [facility] 2022-06-11 2022-06-11 Emergency EM Schultz, [facility] ER [id number] [facility] 11:10:00 12:41:00 Ted 63 [facility] 2021-02-09 2021-02-10 Emergency EM Peguero, [facility] ER [id number] [facility] 23:10:00 00:19:00 Kaelyn 49 [...] Suprapubic PainURINE SOURCE: CLEAN CATCH URINEUR HCG [id number] 11:54:00 Test Item Value Reference Range Interpretation Comments UR HCG QUAL (test code = HCGQLU) NEGATIVE NEGATIVE Indication for culture: Suprapubic PainURINE SOURCE: CLEAN CATCH URINE COMPREHENSIVE METABOLIC [id number] 11:49:00 Test Item Value Reference Range Interpretation [...] 45-117 N TOTAL (test code = ALKP) [id number] 11:49:00 Test Item Value Reference Range Interpretation Comments AMYLASE (test code = PARAM) 73 IU/L 25-115 N [id number] 11:49:00 Test Item Value Reference Range Interpretation Comments LIPASE (test code = LIP) 134 U/L 73-393 N CBC W/AUTO [id number] 11:33:00 Test Item Value Reference Range Interpretation [...] NO NORMAL code = RBCM) COMPREHENSIVE METABOLIC [id number] 16:11:00 Test Item Value Reference Range Interpretation [...] RESULT BY1.21. [Automated mess age] The system Cellity generated this result transmitted ref erence range: [...] 45-117 H TOTAL (test code = ALKP) [id number] 16:11:00 Test Item Value Reference Range Interpretation Comments LIPASE (test code = LIP) 108 U/L 73-393 N URINALYSIS W REFLEX [id number] 16:05:00 Test Item Value Reference Range Interpretation [...] UA MICRO code = UAMICRO) UR HCG [id number] 16:05:00 Test Item Value Reference Range Interpretation Comments UR HCG QUAL (test code = HCGQLU) NEGATIVE NEGATIVE URINALYSIS W REFLEX [id number] 16:05:00 Test Item Value Reference Range Interpretation [...] DO UA MICRO code = UAMICRO) UA [id number] 16:05:00 Test Item Value Reference Range Interpretation Comments UA WBC (test code = WBCU) 0-2 #/hpf 0-5 UA RBC (test code = RBCU) 0-2 #/hpf 0-5 UA EPITHELIAL CELLS (test code = 2+ /hpf NEG,FEW A EPIU) UA BACTERIA (test code = BACU) FEW /hpf NEGATIVE A UA AMORPHOUS SEDIMENT (test code = FEW /hpf NEG,FEW AMORU) UR HCG [id number] 16:05:00 Test Item Value Reference Range Interpretation Comments UR HCG QUAL (test code = HCGQLU) NEGATIVE NEGATIVE URINALYSIS W REFLEX [id number] 16:05:00 Test Item Value Reference Range Interpretation [...] UA MICRO code = UAMICRO) UR HCG [id number] 16:05:00 Test Item Value Reference Range Interpretation Comments UR HCG QUAL (test code = HCGQLU) NEGATIVE NEGATIVE DRUGS OF ABUSE [id number] 16:01:00 Test Item Value Reference Range Interpretation Comments UR COCAINE (test code NEGATIVE ng/ml NEGATIVE = COCAU) UR CANNABINOIDS (test POSITIVE ng/ml NEGATIVE A DALY UE EXCEEDS code = CANU) CRITICAL LEVEL. CRITICAL VALUE CALLEDTO AND CRITICAL VALUE READ BACK BY HUBER DOWNING RN 1 379 06/24/20. Chas Dixon POSITIVE URINE DRUG SCREEN [...] code = WAS TESTE D AT THE [facility]) LISTED CUTOFFS DRUG CLASS INIT IAL TEST LEVEL AMPHETAMINES 10 00 NG/MLBARBITURAT ES 200 NG/MLBENZODIAZE PIN ES 200 NG/MLCOCAINE METABOLITE 300 NG/MLMARIJUANA METABOLITE 50 NG/MLOPIATES 3 00 NG/MLPHENCYCLID INE 25 NG/ML URINALYSIS W REFLEX [id number] 15:58:00 Test Item Value Reference Range Interpretation [...] NEEDED? (test code = UAMICRO) UR HCG [id number] 15:58:00 Test Item Value Reference Range Interpretation Comments UR HCG QUAL (test code = HCGQLU) NEGATIVE NEGATIVE CBC W/AUTO [id number] 15:52:00 Test Item Value Reference Range Interpretation [...] NORMAL code = RBCM) URINALYSIS W REFLEX [id number] 13:00:00 Test Item Value Reference Range Interpretation [...] MICRO code = UAMICRO) UA ICTOTEST FOR [id number] 13:00:00 Test Item Value Reference Range Interpretation Comments UA ICTOTEST FOR BILIRUBIN (test code POSITIVE NEGATIVE A = ICTOU) UA [id number] 13:00:00 Test Item Value Reference Range Interpretation Comments UA WBC (test code = WBCU) 0-2 #/hpf 0-5 UA RBC (test code = RBCU) 3-5 #/hpf 0-5 UA EPITHELIAL CELLS (test code = FEW /hpf NEG,FEW EPIU) UA BACTERIA (test code = BACU) FEW /hpf NEGATIVE A UA MUCUS (test code = MUCU) 1+ /hpf NEG,FEW A UR HCG [id number] 13:00:00 Test Item Value Reference Range Interpretation Comments UR HCG QUAL (test code = HCGQLU) NEGATIVE NEGATIVE DRUGS OF ABUSE [id number] 12:57:00 Test Item Value Reference Range Interpretation [...] code = WAS TESTE D AT THE [facility]) LISTED CUTOFFS DRUG CLASS INIT IAL TEST LEVEL AMPHETAMINES 10 00 NG/MLBARBITURAT ES 200 NG/MLBENZODIAZE PIN ES 200 NG/MLCOCAINE METABOLITE 300 NG/MLMARIJUANA METABOLITE 50 NG/MLOPIATES 30 0 NG/MLPHENCYCLID INE 25 NG/ML URINALYSIS W REFLEX [id number] 12:56:00 Test Item Value Reference Range Interpretation [...] MICRO code = UAMICRO) UA ICTOTEST FOR [id number] 12:56:00 Test Item Value Reference Range Interpretation Comments UA ICTOTEST FOR BILIRUBIN (test code POSITIVE NEGATIVE A = ICTOU) UR HCG [id number] 12:56:00 Test Item Value Reference Range Interpretation Comments UR HCG QUAL (test code = HCGQLU) NEGATIVE NEGATIVE URINALYSIS W REFLEX [id number] 12:53:00 Test Item Value Reference Range Interpretation [...] UA MICRO code = UAMICRO) UR HCG [id number] 12:53:00 Test Item Value Reference Range Interpretation Comments UR HCG QUAL (test code = HCGQLU) NEGATIVE NEGATIVE URINALYSIS W REFLEX [id number] 12:53:00 Test Item Value Reference Range Interpretation [...] UA MICRO code = UAMICRO) UR HCG [id number] 12:53:00 Test Item Value Reference Range Interpretation Comments UR HCG QUAL (test code = HCGQLU) NEGATIVE NEGATIVE - XR ABDOMEN [id number] 12:16:00 [facility] 1990 Sex: F FAX: Sawyer Centeno II [place]: St: PRE Name: BREANNA QUEEN [place] FSED : 1990 Age/S: 30/F [address] Unit #: [id number] Loc: [place] [address] Phys: Sawyer Centeno II, MD Acct: [id number] Dis Date: Status: PRE ER PHONE #: Exam Date: 05/19/2020 1212 FAX #: Reason: abdominal pain EXAMS: CPT CODE: [id number] XR ABDOMEN 2V 31434 - XR ABDOMEN 2V PROVIDED REASON FOR [...] RT Bekah (R) CT Trnscrd Date/Time/By: 05/19/2020 (4824) : By: [email or web address] Orig Print D/T: S: 05/19/2020 (5721) PAGE 1 Signed ReportBASIC METABOLIC PANEL 2020-05-19 [...] RESULT BY1.21. [Automated mess age] The system Cellity generated this result transmitted ref erence range: >=60. Th e reference range was not used to int erpret this result as normal/abnormal . CREATININE (test code 0.64 mg/dl 0.55-1.02 N = CREAT) CALCIUM (test code = 9.8 mg/dL 8.5-10.1 N CA) LIVER [id number] 12:08:00 Test Item Value Reference Range Interpretation [...] 119 U/L 45-117 H code = ALKP) [id number] 12:08:00 Test Item Value Reference Range Interpretation Comments LIPASE (test code = LIP) 67 U/L 73-393 L CBC W/AUTO [id number] 11:43:00 Test Item Value Reference Range Interpretation [...] NORMAL code = RBCM) URINALYSIS W REFLEX [id number] 22:06:00 Test Item Value Reference Range Interpretation [...] MUCU) 2+ /hpf NEG,FEW A BASIC METABOLIC [id number] 21:54:00 Test Item Value Reference Range Interpretation [...] = 9.3 mg/dL 8.5-10.1 N CA) LIVER [id number] 21:54:00 Test Item Value Reference Range Interpretation [...] 69 U/L 50-136 N code = ALKP) [id number] 21:54:00 Test Item Value Reference Range Interpretation Comments LIPASE (test code = LIP) 63 U/L 73-393 L BASIC METABOLIC [id number] 21:53:00 Test Item Value Reference Range Interpretation [...] = 9.3 mg/dL 8.5-10.1 N CA) LIVER [id number] 21:53:00 Test Item Value Reference Range Interpretation [...] TOTAL (test U/L 50-136 code = ALKP) [id number] 21:53:00 Test Item Value Reference Range Interpretation Comments LIPASE (test code = LIP) 63 U/L 73-393 L BASIC METABOLIC [id number] 21:52:00 Test Item Value Reference Range Interpretation [...] = 9.3 mg/dL 8.5-10.1 N CA) LIVER [id number] 21:52:00 Test Item Value Reference Range Interpretation [...] TOTAL (test U/L 50-136 code = ALKP) [id number] 21:52:00 Test Item Value Reference Range Interpretation Comments LIPASE (test code = LIP) 63 U/L 73-393 L BASIC METABOLIC [id number] 21:51:00 Test Item Value Reference Range Interpretation [...] = 9.3 mg/dL 8.5-10.1 N CA) LIVER [id number] 21:51:00 Test Item Value Reference Range Interpretation [...] TOTAL (test U/L 50-136 code = ALKP) [id number] 21:51:00 Test Item Value Reference Range Interpretation Comments LIPASE (test code = LIP) 63 U/L 73-393 L BASIC METABOLIC [id number] 21:49:00 Test Item Value Reference Range Interpretation [...] = CA) 9.3 mg/dL 8.5-10.1 N LIVER [id number] 21:49:00 Test Item Value Reference Range Interpretation [...] TOTAL (test U/L 50-136 code = ALKP) [id number] 21:49:00 Test Item Value Reference Range Interpretation Comments LIPASE (test code = LIP) 63 U/L 73-393 L BASIC METABOLIC [id number] 21:48:00 Test Item Value Reference Range Interpretation [...] = CA) 9.3 mg/dL 8.5-10.1 N LIVER [id number] 21:48:00 Test Item Value Reference Range Interpretation Comments TOTAL PROTEIN (test code = PROT) g/dl 6.4-8.2 ALBUMIN (test code = ALB) g/dl 3.4-5.0 BILIRUBIN TOTAL (test code = BILT) mg/dl 0.2-1.0 BILIRUBIN DIRECT (test code = BILD) mg/dl 0.0-0.4 SGOT/AST (test code = AST) U/L 15-37 SGPT/ALT (test code = ALT) U/L 12-78 ALKALINE PHOSPHATASE TOTAL (test code U/L 50-136 = ALKP) [id number] 21:48:00 Test Item Value Reference Range Interpretation Comments LIPASE (test code = LIP) U/L 73-393 BASIC METABOLIC [id number] 21:46:00 Test Item Value Reference Range Interpretation [...] (test code = CA) mg/dL 8.5-10.1 LIVER [id number] 21:46:00 Test Item Value Reference Range Interpretation Comments TOTAL PROTEIN (test code = PROT) g/dl 6.4-8.2 ALBUMIN (test code = ALB) g/dl 3.4-5.0 BILIRUBIN TOTAL (test code = BILT) mg/dl 0.2-1.0 BILIRUBIN DIRECT (test code = BILD) mg/dl 0.0-0.4 SGOT/AST (test code = AST) U/L 15-37 SGPT/ALT (test code = ALT) U/L 12-78 ALKALINE PHOSPHATASE TOTAL (test code U/L 50-136 = ALKP) [id number] 21:46:00 Test Item Value Reference Range Interpretation Comments LIPASE (test code = LIP) U/L 73-393 CBC W/AUTO [id number] 21:43:00 Test Item Value Reference Range Interpretation [...]
[2022-12-06 19:20] LABS: Absolute Lymphocytes (CBC) 1.7 K/uL (0.7-4.9); Hematocrit 38.7 % (36.0-45.0); Lymphocytes % 19.9 % (15.3-44.8); MCV 84.9 fL (80-100); MPV 9.8 fL (7.6-11.3); Platelets 256 thou/uL (152-406); RBC Red Blood Cell Count 4.56 M/uL (3.86-4.86)
[2022-12-06 19:30] LABS: Specific Gravity 1.021 (1.005-1.030)
[2022-12-06 19:37] LABS: BUN Blood Urea Nitrogen 8 mg/dL (7-18); Bicarbonate 31 mEq/L (21-32); Glomerular Filtration Rate 97 ml/min (=/>90); Glucose Level 89 mg/dL (74-106); Potassium 3.7 mEq/L (3.5-5.1); Sodium Level 137 mEq/L (136-145)
[2022-12-06 19:46] LABS: HCG, Quantitative < 1 mIU/mL (1-3)
[2022-12-06 19:48] LABS: Specific Gravity 1.021 (1.005-1.030); Urine Bacteria <20 /HPF (<20); Urine Bilirubin NEGATIVE (Negative); Urine Blood 2+ (Negative); Urine Clarity Extremely Turbid (Clear); Urine Color Yellow (Yellow); Urine Glucose NEGATIVE (Negative); Urine Mucus 1+ /HPF (None Seen); Urine Protein TRACE (Negative); Urine RBC None Seen /HPF (None Seen); Urine Urobilinogen 1+ (Normal); Urine pH 6.5 (5.0-7.0)
[2022-12-06] MEDS ORDERED: NA CHLORIDE 0.9% 1,000 ML ONE (19:48)
[2022-12-06] MEDS ORDERED: KETOROLAC 30 MG/ML INJ ONE (20:13)
--- NOTE | 2022-12-06 20:58 | RAD REPORT ---
EXAM DESCRIPTION: US - Transvaginal Study Probe - 12/06/2022 8:44 pm CLINICAL HISTORY: VAGINAL BLEEDING COMPARISON: Abdomen Pelvis Wo Contrast dated 09/12/2022 FINDINGS: The uterus is normal in size, shape and echotexture. The uterus measures 6.6 x 3.1 x 4.4 c m The endometrial stripe measures 8 mm, within normal limits for age Neither ovary visualized presumably obscured by bowel gas. No significant pelvic ascites. IMPRESSION: Neither ovary visualized, probably obscured by bowel gas. No endometrial thickening or s pecific findings to explain vaginal bleeding.
[2022-12-06] MEDS ORDERED: DICYCLOMINE HCL 20 MG/2 ML AMP IM ONE (21:08)
--- NOTE | 2022-12-06 21:21 | ER ---
Nurse's Notes [facility] Name: Efrem Pastor Age: 32 yrs Sex: Female : 1990 Arrival Date: 12/06/2022 Time: 16:41 Bed DIS3 Private MD: Diagnosis: Abnormal uterine and vaginal bleeding, unspecified Presentation: 12/06 17:17 Chief complaint: Heavy uterine bleeding, N/V, and abdominal cramping x 2.5 weeks. hb Coronavirus screen: At this time, the client does not indicate any symptoms associated with coronavirus-19. Ebola Screen: No symptoms or risks identified at this time. Initial Sepsis Screen: Does the patient meet any 2 criteria? No. Patient's initial sepsis screen is negative. Does the patient have a suspected source of infection? No. Patient's initial sepsis screen is negative. Risk Assessment: Do you want to hurt yourself or someone else? Patient reports no desire to harm self or others. Onset of symptoms was November 19, 2022. 17:17 Method Of Arrival: Ambulatory hb 17:17 Acuity: BELINDA 3 hb THERAPY DIRECTOR: 17:30 1, Full Term 0, 1, Living 0, unknown cp Historical: - Allergies: 17:18 Haldol; hb 17:18 Scopolamine HBr; hb - PMHx: 17:18 Gastroparesis; Irritable bowel syndrome; PTSD; hb - PSHx: 17:18 Cholecystectomy; leep procedure; bilateral ureter attachment; Lumpectomy of breast; hb right breast; - Immunization history:: Adult Immunizations up to date. - Social history:: Smoking status: Patient denies any tobacco usage or history of. Screenin:05 Abuse screen: Denies threats or abuse. Denies injuries from another. Nutritional ha1 screening: No deficits noted. Tuberculosis screening: No symptoms or risk factors identified. Assessment: 19:15 General: Appears uncomfortable, Behavior is cooperative. Pain: Complains of pain in ha1 pelvis Pain does not radiate. Pain currently is 8 out of 10 on a pain scale. Quality of pain is described as crampy. Neuro: Level of Consciousness is awake, alert, obeys commands, Oriented to person, place, time, situation. Cardiovascular: Patient's skin is warm and dry. Respiratory: Airway is patent Respiratory effort is even, unlabored, Respiratory pattern is regular, symmetrical. : Reports vaginal bleeding that is bright red, with clots. Derm: Skin is pink, warm \T\ dry. Musculoskeletal: Circulation, motion, and sensation intact. Range of motion: intact in all extremities. 20:03 Reassessment: Patient and/or family updated on plan of care and expected duration. Pain ha1 level reassessed. Patient is alert, oriented x 3, equal unlabored respirations, skin warm/dry/pink. 21:15 Reassessment: Patient and/or family updated on plan of care and expected duration. Pain ha1 level reassessed. Patient is alert, oriented x 3, equal unlabored respirations, skin warm/dry/pink. Patient states feeling better. Patient states symptoms have improved. Vital Signs: 17:17 BP 115 / 84; Pulse 106; Resp 16; Temp 97.7(TE); Pulse Ox 98% on R/A; Weight 64.86 kg; hb Height 5 ft. 2 in. ; Pain 8/10; 19:30 BP 112 / 81; Pulse 102; Resp 17; Pulse Ox 98% on R/A; ha1 20:45 BP 117 / 82; Pulse 95; Resp 17 S; Pulse Ox 98% on R/A; ha1 17:17 Body Mass Index 26.15 (64.86 kg, 157.48 cm) hb 17:17 Pain Scale: Adult hb ED Course: 16:46 Patient arrived in ED. mg5 16:56 Billy Kilpatrick PA is PHCP. cp 16:56 Alcides Solomon MD is Attending Physician. cp 17:18 Triage completed. hb 17:19 Arm band placed on. hb 19:00 Patient has correct armband on for positive identification. Call light in reach. near ha1 nurse station. 19:16 Abo/rh Typing Sent. bc6 19:16 Basic Metabolic Panel Sent. bc6 19:16 CBC with Diff Sent. bc6 19:16 Test, Urine Sent. bc6 19:16 Quantitative Hcg Sent. bc6 19:16 Urinalysis w/ reflexes Sent. bc6 19:16 Inserted saline lock: 20 gauge in right antecubital area, using aseptic technique. bc6 Blood collected. 20:46 US Transvaginal Study (Probe) In Process Unspecified. EDMS 21:20 Dora Barclay MD is Referral Physician. cp 21:35 No provider procedures requiring assistance completed. IV discontinued, intact, ha1 bleeding controlled, No redness/swelling at site. Pressure dressing applied. 21:36 Provided Education on: following up with OB . ha1 Administered Medications: 19:25 Drug: NS 0.9% IV 1000 ml IV at 1 bolus Per protocol; 1000 mL bolus Route: IV; Rate: 1 ha1 bolus; Site: right antecubital; 21:35 Follow up: Response: No adverse reaction; IV Status: Completed infusion; IV Intake: ha1 1000ml 20:00 Drug: Ketorolac IVP 15 mg IVP once Route: IVP; Site: right antecubital; ha1 21:35 Follow up: Response: No adverse reaction; Pain is decreased ha1 21:00 Drug: Dicyclomine IM 20 mg IM once Route: IM; Site: left deltoid; ha1 21:35 Follow up: Response: No adverse reaction ha1 Medication: 20:05 VIS not applicable for this client. ha1 Intake: 21:35 IV: 1000ml; Total: 1000ml. ha1 Outcome: 21:20 Discharge ordered by MD. cp 21:35 Discharged to home ambulatory, ha1 21:35 Condition: stable 21:35 Discharge instructions given to patient, Instructed on discharge instructions, follow up and referral plans. medication usage, Demonstrated understanding of instructions, follow-up care, medications, 21:36 Patient left the ED. ha1 Signatures: Dispatcher [employer] EDMS Billy Kilpatrick PA PA cp Baxter, Heather, RN RN hb Ayala, Heidy, RN RN ha1 Susan Ha 6 Sherly Palmer mg5 Corrections: (The following items were deleted from the chart) 17:19 17:17 Chief complaint: Heavy uterine bleeding, nausea, and abdominal cramping x 2.5 hb weeks. hb 17:19 17:17 BP 115 / 84; Pulse 106bpm; Resp 16bpm; Pulse Ox 98% RA; Temp 97.7F Temporal; hb hb
--- NOTE | 2022-12-06 21:21 | EDPHYS ---
Physician Documentation [facility] Name: Efrem Pastor Age: 32 yrs Sex: Female : 1990 Arrival Date: 12/06/2022 Time: 16:41 Bed DIS3 Private MD: ED Physician Alcides Solomon HPI: 12/06 17:30 This 32 yrs old Female presents to ER via Ambulatory with complaints of Vaginal cp Bleeding, Nausea/Vomiting, Abdominal Pain. 17:30 The patient presents with vaginal bleeding that is light, with no clots. Onset: The cp symptoms/episode began/occurred 2.5 week(s) ago. Associated signs and symptoms: Pertinent positives: abdominal pain. 17:30 The patient's method of control includes nothing. 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 - Social history:: Smoking status: Patient denies any tobacco usage or history of. ROS: 17:35 Constitutional: Negative for fever, cp 17:35 Cardiovascular: Negative for chest pain, edema, palpitations, cp 17:35 Eyes: Negative for injury, pain, redness, and discharge, cp 17:35 ENT: Negative for drainage from ear(s), ear pain, sore throat, difficulty swallowing, difficulty handling secretions, 17:35 Respiratory: Negative for cough, shortness of breath, wheezing, 17:35 Abdomen/GI: Positive for abdominal pain, nausea and vomiting, Negative for diarrhea, constipation, 17:35 : Positive for vaginal bleeding, Negative for urinary symptoms, 17:35 Neuro: Negative for altered mental status, dizziness, headache, syncope, near syncope, weakness, 17:35 All other systems are negative, Exam: 17:40 Constitutional: The patient appears in no acute distress, alert, awake, non-toxic, well cp developed, well nourished, 17:40 Head/Face: Normocephalic, atraumatic. cp 17:40 Eyes: Periorbital structures: appear normal, Conjunctiva: normal, no exudate, no injection, Sclera: no appreciated abnormality, Lids and lashes: appear normal, bilaterally, 17:40 ENT: External ear(s): are unremarkable, Nose: is normal, Mouth: Lips: moist, Oral mucosa: pink and intact, moist, Posterior pharynx: is normal, airway is patent, no erythema, no exudate, 17:40 Chest/axilla: Inspection: normal, 17:40 Cardiovascular: Rate: tachycardic, Rhythm: regular, 17:40 Respiratory: the patient does not display signs of respiratory distress, Respirations: normal, no use of accessory muscles, no retractions, labored breathing, is not present, Breath sounds: are clear throughout, no decreased breath sounds, no stridor, no wheezing, 17:40 Abdomen/GI: Inspection: abdomen appears normal, Bowel sounds: active, all quadrants, Palpation: soft, in all quadrants, moderate abdominal tenderness, in the right lower quadrant and left lower quadrant, rebound tenderness, is not appreciated, involuntary guarding, is not appreciated, 17:40 Back: pain, is absent, ROM is normal, 17:40 Neuro: Orientation: to person, place \T\ time. Mentation: is normal, Motor: moves all fours, strength is normal, Sensation: is normal, Vital Signs: 17:17 BP 115 / 84; Pulse 106; Resp 16; Temp 97.7(TE); Pulse Ox 98% on R/A; Weight 64.86 kg; hb Height 5 ft. 2 in. ; Pain 8/10; 19:30 BP 112 / 81; Pulse 102; Resp 17; Pulse Ox 98% on R/A; ha1 20:45 BP 117 / 82; Pulse 95; Resp 17 S; Pulse Ox 98% on R/A; ha1 17:17 Body Mass Index 26.15 (64.86 kg, 157.48 cm) hb 17:17 Pain Scale: Adult hb MDM: 17:24 Patient medically screened. cp 21:20 Data reviewed: vital signs, nurses notes, lab test result(s), radiologic studies, cp ultrasound. 21:20 Differential diagnosis: menorrhea, molar preganancy, pelvic inflammatory disease, cp uterine fibroids, vaginosis. I considered the following discharge prescriptions or medication management in the emergency department Medications were administered in the Emergency Department. See MAR. Counseling: I had a detailed discussion with the patient and/or guardian regarding the historical points, exam findings, and any diagnostic results supporting the discharge/admit diagnosis, lab results, radiology results, the need for outpatient follow up, an OB/Gyne specialist. 12/06 17:25 Order name: Abo/rh Typing; Complete Time: 20:49 cp 12/06 20:49 Interpretation: Reviewed. cp 12/06 17:25 Order name: Basic Metabolic Panel; Complete Time: 19:49 cp 12/06 17:25 Order name: CBC with Diff; Complete Time: 19:49 cp 12/06 19:49 Interpretation: Normal except: RDW 16.5. cp 12/06 17:25 Order name: Test, Urine; Complete Time: 19:49 cp 12/06 17:25 Order name: Quantitative Hcg; Complete Time: 19:49 cp 12/06 17:25 Order name: Urinalysis w/ reflexes; Complete Time: 19:49 cp 12/06 19:50 Order name: US Transvaginal Study (Probe); Complete Time: 21:01 cp 12/06 21:01 Interpretation: Reviewed report. cp 12/06 17:25 Order name: IV Saline Lock; Complete Time: 19:15 cp 12/06 17:25 Order name: Labs collected and sent; Complete Time: 19:15 cp 12/06 17:25 Order name: NPO; Complete Time: 19:15 cp Administered Medications: 19:25 Drug: NS 0.9% IV 1000 ml IV at 1 bolus Per protocol; 1000 mL bolus Route: IV; Rate: 1 ha1 bolus; Site: right antecubital; 21:35 Follow up: Response: No adverse reaction; IV Status: Completed infusion; IV Intake: ha1 1000ml 20:00 Drug: Ketorolac IVP 15 mg IVP once Route: IVP; Site: right antecubital; ha1 21:35 Follow up: Response: No adverse reaction; Pain is decreased ha1 21:00 Drug: Dicyclomine IM 20 mg IM once Route: IM; Site: left deltoid; ha1 21:35 Follow up: Response: No adverse reaction ha1 Disposition Summary: 12/06/22 21:20 Discharge Ordered Notes: Location: Home cp Problem: new cp Symptoms: have improved cp Condition: Stable cp Diagnosis - Abnormal uterine and vaginal bleeding, unspecified cp Followup: cp - With: Dora Barclay MD - When: 1 week - Reason: Recheck today's complaints Discharge Instructions: - Discharge Summary Sheet cp - Abnormal Uterine Bleeding cp - Dysfunctional Uterine Bleeding cp Forms: - Medication Reconciliation Form cp - Thank You Letter cp - Antibiotic Education cp - Prescription Opioid Use cp - Patient Portal Instructions cp - Leadership Thank You Letter cp Prescriptions: - Diclofenac Sodium 75 mg Oral Tablet Sustained Release - take 1 tablet ORAL route 2 times per day; 30 tablet; Refills: 0, Product cp Selection Permitted Addendum: 12/08/2022 11:01 I was immediately available for consultation during this patient's visit. I did not e c2 personally see the patient or guide the patient's care. Signatures: Dispatcher [employer] EDKS Billy Kilpatrick PA PA cp Baxter, Heather, RN RN Linda Block RN RN ha1 Alcides Solomon MD MD ec2
[2022-12-06 22:38] VITALS: TEMP 97.7; O2SAT 98
[2022-12-06 22:41] VITALS: BP 117/82
== END 2022-12-06 21:36 | disposition home or self-care (01) ==
LOC: ER 16:41
DX: N93.9 Abnormal uterine and vaginal bleeding, unspecified (principal); R11.2 Nausea with vomiting, unspecified; Z88.5 Allergy status to narcotic agent; Z88.8 Allergy status to other drugs, medicaments and biological substances
CPT/HCPCS: 96361; 85025; 81001; 80048; 36415; 86900; 81025; 86901; 84702; 76830; 96372; 96374; 99284; J0500; J7030

== ENCOUNTER 2022-12-12 17:42 | Emergency (ER) | payer OTHER ==
--- OUTSIDE RECORDS SUMMARY | 2022-12-12 17:46 | XMS REPORT | Continuity of Care Document ---
:1990 Author Organization [facility] t Address [address] [place] [address] Care Team Providers Name Role Phone Ted [...] Clinician haloperi DA Active SV [facility] dol 5-03 [facility] scopolam DA Active [facility] No Known DA Active U [facility] Allergie 1- [facility] 00:[facility] No Known DA Active U [facility] Allergie -16 [facility] 00:[facility] No Known DA Active U [facility] 5[facility]16 [facility] scopolam DA Active DC 2020- [facility] scopolam DA Active DC RASH-[facility]ES [facility] 4[facility]10 [facility] 00:00: [...] No Known DA Active U NONE [facility] Drug 9-15 [facility] Intolera 00:00: [facility] Medications This patient has no known medications. Procedures This patient has no known procedures. Encounters Start End Encounter Admission Attending Care Care Encounter Source Date/Time Date/Time Type Type Clinicians Facility Department ID 2020-06-24 Inpatient [facility] [id number] [facility] 15:53[facility]22 [facility] 2020-05-19 Inpatient [facility] [id number] [facility] 11:42:02 19 [facility] 2019-07-30 Inpatient [facility] ER [id number] [facility] 21:08:00 63 [facility] 2022-06-11 2022-06-11 Emergency EM Schultz, [facility] ER [id number] [facility] 11:10:00 12:41:00 Ted 63 [facility] 2021-02-09 2021-02-10 Emergency EM Peguero, [facility] ER [id number] [facility] 23:10:00 00:19:00 Kaelyn 49 [...] Suprapubic PainURINE SOURCE: CLEAN CATCH URINEUR HCG [id number] 11:54:00 Test Item Value Reference Range Interpretation Comments UR HCG QUAL (test code = HCGQLU) NEGATIVE NEGATIVE Indication for culture: Suprapubic PainURINE SOURCE: CLEAN CATCH URINE COMPREHENSIVE METABOLIC [id number] 11:49:00 Test Item Value Reference Range Interpretation [...] 45-117 N TOTAL (test code = ALKP) [id number] 11:49:00 Test Item Value Reference Range Interpretation Comments AMYLASE (test code = PARAM) 73 IU/L 25-115 N [id number] 11:49:00 Test Item Value Reference Range Interpretation Comments LIPASE (test code = LIP) 134 U/L 73-393 N CBC W/AUTO [id number] 11:33:00 Test Item Value Reference Range Interpretation [...] NO NORMAL code = RBCM) COMPREHENSIVE METABOLIC [id number] 16:11:00 Test Item Value Reference Range Interpretation [...] RESULT BY1.21. [Automated mess age] The system [employer] generated this result transmitted ref erence range: [...] 45-117 H TOTAL (test code = ALKP) [id number] 16:11:00 Test Item Value Reference Range Interpretation Comments LIPASE (test code = LIP) 108 U/L 73-393 N URINALYSIS W REFLEX [id number] 16:05:00 Test Item Value Reference Range Interpretation [...] UA MICRO code = UAMICRO) UR HCG [id number] 16:05:00 Test Item Value Reference Range Interpretation Comments UR HCG QUAL (test code = HCGQLU) NEGATIVE NEGATIVE URINALYSIS W REFLEX [id number] 16:05:00 Test Item Value Reference Range Interpretation [...] DO UA MICRO code = UAMICRO) UA [id number] 16:05:00 Test Item Value Reference Range Interpretation Comments UA WBC (test code = WBCU) 0-2 #/hpf 0-5 UA RBC (test code = RBCU) 0-2 #/hpf 0-5 UA EPITHELIAL CELLS (test code = 2+ /hpf NEG,FEW A EPIU) UA BACTERIA (test code = BACU) FEW /hpf NEGATIVE A UA AMORPHOUS SEDIMENT (test code = FEW /hpf NEG,FEW AMORU) UR HCG [id number] 16:05:00 Test Item Value Reference Range Interpretation Comments UR HCG QUAL (test code = HCGQLU) NEGATIVE NEGATIVE URINALYSIS W REFLEX [id number] 16:05:00 Test Item Value Reference Range Interpretation [...] UA MICRO code = UAMICRO) UR HCG [id number] 16:05:00 Test Item Value Reference Range Interpretation Comments UR HCG QUAL (test code = HCGQLU) NEGATIVE NEGATIVE DRUGS OF ABUSE [id number] 16:01:00 Test Item Value Reference Range Interpretation Comments UR COCAINE (test code NEGATIVE ng/ml NEGATIVE = COCAU) UR CANNABINOIDS (test POSITIVE ng/ml NEGATIVE A DALY UE EXCEEDS code = CANU) CRITICAL LEVEL. CRITICAL VALUE CALLEDTO AND CRITICAL VALUE READ BACK BY HUBER DOWNING RN 1 072 06/24/20. Chas Dixon POSITIVE URINE DRUG SCREEN [...] code = WAS TESTE D AT THE [facility]) LISTED CUTOFFS DRUG CLASS INIT IAL TEST LEVEL AMPHETAMINES 10 00 NG/MLBARBITURAT ES 200 NG/MLBENZODIAZE PIN ES 200 NG/MLCOCAINE METABOLITE 300 NG/MLMARIJUANA METABOLITE 50 NG/MLOPIATES 3 00 NG/MLPHENCYCLID INE 25 NG/ML URINALYSIS W REFLEX [id number] 15:58:00 Test Item Value Reference Range Interpretation [...] NEEDED? (test code = UAMICRO) UR HCG [id number] 15:58:00 Test Item Value Reference Range Interpretation Comments UR HCG QUAL (test code = HCGQLU) NEGATIVE NEGATIVE CBC W/AUTO [id number] 15:52:00 Test Item Value Reference Range Interpretation [...] NORMAL code = RBCM) URINALYSIS W REFLEX [id number] 13:00:00 Test Item Value Reference Range Interpretation [...] MICRO code = UAMICRO) UA ICTOTEST FOR [id number] 13:00:00 Test Item Value Reference Range Interpretation Comments UA ICTOTEST FOR BILIRUBIN (test code POSITIVE NEGATIVE A = ICTOU) UA [id number] 13:00:00 Test Item Value Reference Range Interpretation Comments UA WBC (test code = WBCU) 0-2 #/hpf 0-5 UA RBC (test code = RBCU) 3-5 #/hpf 0-5 UA EPITHELIAL CELLS (test code = FEW /hpf NEG,FEW EPIU) UA BACTERIA (test code = BACU) FEW /hpf NEGATIVE A UA MUCUS (test code = MUCU) 1+ /hpf NEG,FEW A UR HCG [id number] 13:00:00 Test Item Value Reference Range Interpretation Comments UR HCG QUAL (test code = HCGQLU) NEGATIVE NEGATIVE DRUGS OF ABUSE [id number] 12:57:00 Test Item Value Reference Range Interpretation [...] code = WAS TESTE D AT THE [facility]) LISTED CUTOFFS DRUG CLASS INIT IAL TEST LEVEL AMPHETAMINES 10 00 NG/MLBARBITURAT ES 200 NG/MLBENZODIAZE PIN ES 200 NG/MLCOCAINE METABOLITE 300 NG/MLMARIJUANA METABOLITE 50 NG/MLOPIATES 30 0 NG/MLPHENCYCLID INE 25 NG/ML URINALYSIS W REFLEX [id number] 12:56:00 Test Item Value Reference Range Interpretation [...] MICRO code = UAMICRO) UA ICTOTEST FOR [id number] 12:56:00 Test Item Value Reference Range Interpretation Comments UA ICTOTEST FOR BILIRUBIN (test code POSITIVE NEGATIVE A = ICTOU) UR HCG [id number] 12:56:00 Test Item Value Reference Range Interpretation Comments UR HCG QUAL (test code = HCGQLU) NEGATIVE NEGATIVE URINALYSIS W REFLEX [id number] 12:53:00 Test Item Value Reference Range Interpretation [...] UA MICRO code = UAMICRO) UR HCG [id number] 12:53:00 Test Item Value Reference Range Interpretation Comments UR HCG QUAL (test code = HCGQLU) NEGATIVE NEGATIVE URINALYSIS W REFLEX [id number] 12:53:00 Test Item Value Reference Range Interpretation [...] UA MICRO code = UAMICRO) UR HCG [id number] 12:53:00 Test Item Value Reference Range Interpretation Comments UR HCG QUAL (test code = HCGQLU) NEGATIVE NEGATIVE - XR ABDOMEN [id number] 12:16:00 [facility] 1990 Sex: F FAX: Sawyer Centeno II [place]: St: PRE Name: BREANNA QUEEN [place] FSED : 1990 Age/S: 30/F [address] Unit #: [id number] [place]: [place] [address] Phys: Sawyer Centeno II, MD Acct: [id number] Dis Date: Status: PRE ER PHONE #: Exam Date: 05/19/2020 1212 FAX #: Reason: abdominal pain EXAMS: CPT CODE: [id number] XR ABDOMEN 2V 61914 - XR ABDOMEN 2V PROVIDED REASON FOR [...] RT Bekah (R) CT Trnscrd Date/Time/By: 05/19/2020 (5012) : By: [email or web address] Orig Print D/T: S: 05/19/2020 (8048) PAGE 1 Signed ReportBASIC METABOLIC PANEL 2020-05-19 [...] RESULT BY1.21. [Automated mess age] The system [employer] generated this result transmitted ref erence range: >=60. Th e reference range was not used to int erpret this result as normal/abnormal . CREATININE (test code 0.64 mg/dl 0.55-1.02 N = CREAT) CALCIUM (test code = 9.8 mg/dL 8.5-10.1 N CA) LIVER [id number] 12:08:00 Test Item Value Reference Range Interpretation [...] 119 U/L 45-117 H code = ALKP) [id number] 12:08:00 Test Item Value Reference Range Interpretation Comments LIPASE (test code = LIP) 67 U/L 73-393 L CBC W/AUTO [id number] 11:43:00 Test Item Value Reference Range Interpretation [...] NORMAL code = RBCM) URINALYSIS W REFLEX [id number] 22:06:00 Test Item Value Reference Range Interpretation [...] MUCU) 2+ /hpf NEG,FEW A BASIC METABOLIC [id number] 21:54:00 Test Item Value Reference Range Interpretation [...] = 9.3 mg/dL 8.5-10.1 N CA) LIVER [id number] 21:54:00 Test Item Value Reference Range Interpretation [...] 69 U/L 50-136 N code = ALKP) [id number] 21:54:00 Test Item Value Reference Range Interpretation Comments LIPASE (test code = LIP) 63 U/L 73-393 L BASIC METABOLIC [id number] 21:53:00 Test Item Value Reference Range Interpretation [...] = 9.3 mg/dL 8.5-10.1 N CA) LIVER [id number] 21:53:00 Test Item Value Reference Range Interpretation [...] TOTAL (test U/L 50-136 code = ALKP) [id number] 21:53:00 Test Item Value Reference Range Interpretation Comments LIPASE (test code = LIP) 63 U/L 73-393 L BASIC METABOLIC [id number] 21:52:00 Test Item Value Reference Range Interpretation [...] = 9.3 mg/dL 8.5-10.1 N CA) LIVER [id number] 21:52:00 Test Item Value Reference Range Interpretation [...] TOTAL (test U/L 50-136 code = ALKP) [id number] 21:52:00 Test Item Value Reference Range Interpretation Comments LIPASE (test code = LIP) 63 U/L 73-393 L BASIC METABOLIC [id number] 21:51:00 Test Item Value Reference Range Interpretation [...] = 9.3 mg/dL 8.5-10.1 N CA) LIVER [id number] 21:51:00 Test Item Value Reference Range Interpretation [...] TOTAL (test U/L 50-136 code = ALKP) [id number] 21:51:00 Test Item Value Reference Range Interpretation Comments LIPASE (test code = LIP) 63 U/L 73-393 L BASIC METABOLIC [id number] 21:49:00 Test Item Value Reference Range Interpretation [...] = CA) 9.3 mg/dL 8.5-10.1 N LIVER [id number] 21:49:00 Test Item Value Reference Range Interpretation [...] TOTAL (test U/L 50-136 code = ALKP) [id number] 21:49:00 Test Item Value Reference Range Interpretation Comments LIPASE (test code = LIP) 63 U/L 73-393 L BASIC METABOLIC [id number] 21:48:00 Test Item Value Reference Range Interpretation [...] = CA) 9.3 mg/dL 8.5-10.1 N LIVER [id number] 21:48:00 Test Item Value Reference Range Interpretation Comments TOTAL PROTEIN (test code = PROT) g/dl 6.4-8.2 ALBUMIN (test code = ALB) g/dl 3.4-5.0 BILIRUBIN TOTAL (test code = BILT) mg/dl 0.2-1.0 BILIRUBIN DIRECT (test code = BILD) mg/dl 0.0-0.4 SGOT/AST (test code = AST) U/L 15-37 SGPT/ALT (test code = ALT) U/L 12-78 ALKALINE PHOSPHATASE TOTAL (test code U/L 50-136 = ALKP) [id number] 21:48:00 Test Item Value Reference Range Interpretation Comments LIPASE (test code = LIP) U/L 73-393 BASIC METABOLIC [id number] 21:46:00 Test Item Value Reference Range Interpretation [...] (test code = CA) mg/dL 8.5-10.1 LIVER [id number] 21:46:00 Test Item Value Reference Range Interpretation Comments TOTAL PROTEIN (test code = PROT) g/dl 6.4-8.2 ALBUMIN (test code = ALB) g/dl 3.4-5.0 BILIRUBIN TOTAL (test code = BILT) mg/dl 0.2-1.0 BILIRUBIN DIRECT (test code = BILD) mg/dl 0.0-0.4 SGOT/AST (test code = AST) U/L 15-37 SGPT/ALT (test code = ALT) U/L 12-78 ALKALINE PHOSPHATASE TOTAL (test code U/L 50-136 = ALKP) [id number] 21:46:00 Test Item Value Reference Range Interpretation Comments LIPASE (test code = LIP) U/L 73-393 CBC W/AUTO [id number] 21:43:00 Test Item Value Reference Range Interpretation [...]
[2022-12-12 20:33] LABS: Specific Gravity 1.009 (1.005-1.030)
[2022-12-12 20:34] LABS: Specific Gravity 1.009 (1.005-1.030); Urine Bacteria None Seen /HPF (<20); Urine Bilirubin NEGATIVE (Negative); Urine Blood 2+ (Negative); Urine Clarity Clear (Clear); Urine Color Light-Yellow (Yellow); Urine Glucose NEGATIVE (Negative); Urine Protein NEGATIVE (Negative); Urine RBC <5 /HPF (None Seen); Urine Urobilinogen Normal (Normal)
[2022-12-12 20:35] LABS: Absolute Lymphocytes (CBC) 1.4 K/uL (0.7-4.9); Hematocrit 40.8 % (36.0-45.0); Lymphocytes % 14.5 % (15.3-44.8); MCV 82.7 fL (80-100); MPV 10.1 fL (7.6-11.3); Platelets 218 thou/uL (152-406); RBC Red Blood Cell Count 4.93 M/uL (3.86-4.86)
[2022-12-12] MEDS ORDERED: METOCLOPRAMIDE 10 MG/2mL INJ ONE (20:40)
[2022-12-12] MEDS ORDERED: FAMOTIDINE 20 MG/2 ML VIAL IV ONE (20:41)
[2022-12-12] MEDS ORDERED: NA CHLORIDE 0.9% 1,000 ML ONE (20:41)
[2022-12-12 20:45] LABS: Albumin 3.3 g/dL (3.4-5.0); Bilirubin Total 0.5 mg/dL (0.2-1.0); Potassium 3.4 mEq/L (3.5-5.1); Protein, Total 7.8 g/dL (6.4-8.2)
--- NOTE | 2022-12-12 20:52 | ER ---
Nurse's Notes [facility] Name: Efrem Pastor Age: 32 yrs Sex: Female : 1990 Arrival Date: 12/12/2022 Time: 17:42 Bed 9 Private MD: Diagnosis: Nausea with vomiting, unspecified;Diarrhea, unspecified Presentation: 12/12 18:00 Chief complaint: Patient states: Diagnosed with the flu 2 weeks ago and has not been cm10 feeling better. Pt states that she has been vomiting, has had body aches, fever and diarrhea. Coronavirus screen: Vaccine status: Patient reports receiving the 2nd dose of the covid vaccine. Client denies travel out of the [place] in the last 14 days. Ebola Screen: Patient denies travel to an Ebola-affected area in the 21 days before illness onset. No symptoms or risks identified at this time. Initial Sepsis Screen: Does the patient meet any 2 criteria? No. Patient's initial sepsis screen is negative. Does the patient have a suspected source of infection? No. Patient's initial sepsis screen is negative. Risk Assessment: Do you want to hurt yourself or someone else? Patient reports no desire to harm self or others. Onset of symptoms was December 12, 2022. 18:00 Method Of Arrival: Ambulatory cm10 18:00 Acuity: BELINDA 3 cm10 Triage Assessment: 18:01 General: Appears in no apparent distress. comfortable, Behavior is calm, cooperative. cm10 Historical: - Allergies: 18:01 Haldol; cm10 18:01 Scopolamine HBr; cm10 - PMHx: 18:01 Gastroparesis; Irritable bowel syndrome; PTSD; cm10 - PSHx: 18:01 bilateral ureter attachment; Cholecystectomy; leep procedure; Lumpectomy of breast; cm10 right breast; - Immunization history:: Adult Immunizations unknown. - Social history:: Smoking status: Reported history of juuling and/or vaping. Screenin:09 [facility] ED Fall Risk Assessment (Adult) History of falling in the last 3 months, jb4 including since admission No falls in past 3 months (0 pts) Confusion or Disorientation No (0 pts). Abuse screen: Denies threats or abuse. Nutritional screening: No deficits noted. Tuberculosis screening: No symptoms or risk factors identified. Assessment: 20:22 General: Appears in no apparent distress. uncomfortable, Behavior is calm, cooperative, jb4 appropriate for age, Pt reports testing positive for the flu 2 weeks ago. Was given azithromycin. Reports finishing entire dose of medication and the following day the symptoms returned even worse. Reports headache that is 10/10 and sore throat.. Pain: Complains of pain in headache, throat Pain does not radiate. Pain currently is 10 out of 10 on a pain scale. Neuro: Level of Consciousness is awake, alert, obeys commands, Oriented to person, place, time, situation. Cardiovascular: Patient's skin is warm and dry. Respiratory: Airway is patent Respiratory effort is even, unlabored, Respiratory pattern is. GI: Abdomen is flat, non-distended, Reports nausea. : No signs and/or symptoms were reported regarding the genitourinary system. EENT: No signs and/or symptoms were reported regarding the EENT system. Derm: Skin is intact, Skin is pink, warm \T\ dry. Musculoskeletal: Circulation, motion, and sensation intact. Range of motion: intact in all extremities. Vital Signs: 18:00 BP 101 / 73; Pulse 97; Resp 18; Temp 98.6(O); Pulse Ox 96% ; Weight 63.5 kg; Height 5 cm10 ft. 2 in. ; Pain 8/10; 20:22 BP 123 / 87; Pulse 92; Resp 16; Pulse Ox 99% on R/A; jb4 20:35 Temp 99(O); jb4 18:00 Body Mass Index 25.61 (63.50 kg, 157.48 cm) cm10 18:00 Pain Scale: Adult cm10 ED Course: 17:52 Patient arrived in ED. jj6 17:53 Billy Kilpatrick PA is PHCP. cp 17:53 Mp Yates MD is Attending Physician. cp 18:01 Triage completed. cm10 18:02 Arm band placed on Patient placed in waiting room. cm10 19:34 Ulises Gilbert, BRUCE is Primary Nurse. jb4 21:09 Patient has correct armband on for positive identification. Placed in gown. Bed in low jb4 position. Call light in reach. Side rails up X 1. 21:09 No provider procedures requiring assistance completed. IV discontinued, intact, jb4 bleeding controlled, No redness/swelling at site. Pressure dressing applied. Administered Medications: 20:34 Drug: metoCLOPramide IVP 10 mg IVP once; over 1 to 2 minutes Route: IVP; Site: right jb4 antecubital; 21:09 Follow up: Response: No adverse reaction; Marked relief of symptoms jb4 20:34 Drug: Famotidine IVP 20 mg IVP once; dilute with 10 mL 0.9% NaCl; give over 2 minutes jb4 Route: IVP; Site: right antecubital; 21:09 Follow up: Response: No adverse reaction; Marked relief of symptoms jb4 20:35 Drug: NS 0.9% IV 1000 ml IV at 1 bolus Per protocol; 1000 mL bolus Route: IV; Rate: 1 jb4 bolus; Site: right antecubital; 21: Drug: Potassium PO Effervescent Tablet 50 mEq PO once; dissolve in 4 ounces of water or jb4 juice Route: PO; 21:10 Follow up: Response: Medication administered at discharge. jb4 Outcome: 20:51 Discharge ordered by . hector 21: Discharged to home ambulatory, jb 21: Condition: stable 21: Discharge instructions given to patient, Instructed on discharge instructions, follow up and referral plans. medication usage, Demonstrated understanding of instructions, follow-up care, medications, Prescriptions given X 2, 21:10 Patient left the ED. jb4 Signatures: Billy Kilpatrick PA PA cp Bryson, James, RN RN jb4 Tisha Cruzj6 Chelle Chavis RN RN cm10
--- NOTE | 2022-12-12 20:52 | EDPHYS ---
Physician Documentation [facility] Name: Efrem Pastor Age: 32 yrs Sex: Female : 1990 Arrival Date: 12/12/2022 Time: 17:42 Bed 9 Private MD: ED Physician Mp Yates HPI: 12/12 18:10 This 32 yrs old Female presents to ER via Ambulatory with complaints of General cp Weakness, Nausea/Vomiting. 18:10 The patient presents to the emergency department with nausea, vomiting, that is cp intermittent, diarrhea, that is intermittent. 18:10 Possible causes: diagnosed with influenza 2 weeks ago. Associated signs and symptoms: cp Pertinent positives: fever, body aches, Pertinent negatives: constipation, GI bleeding. Severity of symptoms: in the emergency department the symptoms are unchanged despite home interventions. Historical: - Allergies: 18:01 Haldol; cm10 18:01 Scopolamine HBr; cm10 - PMHx: 18:01 Gastroparesis; Irritable bowel syndrome; PTSD; cm10 - PSHx: 18:01 bilateral ureter attachment; Cholecystectomy; leep procedure; Lumpectomy of breast; cm10 right breast; - Immunization history:: Adult Immunizations unknown. - Social history:: Smoking status: Reported history of juuling and/or vaping. ROS: 18:15 Constitutional: Positive for body aches, fever, cp 18:15 Eyes: Negative for injury, pain, redness, and discharge, cp 18:15 ENT: Negative for drainage from ear(s), ear pain, difficulty swallowing, difficulty handling secretions, 18:15 Cardiovascular: Negative for chest pain, 18:15 Respiratory: Negative for shortness of breath, wheezing, 18:15 Abdomen/GI: Positive for nausea and vomiting, diarrhea, Negative for constipation, 18:15 Neuro: Positive for weakness, Negative for altered mental status, syncope, 18:15 All other systems are negative, Exam: 18:20 Constitutional: The patient appears in no acute distress, alert, awake, non-toxic, well cp developed, well nourished, 18:20 Head/Face: Normocephalic, atraumatic. cp 18:20 Eyes: Periorbital structures: appear normal, Conjunctiva: normal, no exudate, no injection, Sclera: no appreciated abnormality, Lids and lashes: appear normal, bilaterally, 18:20 ENT: External ear(s): are unremarkable, Nose: is normal, Mouth: Lips: moist, Oral mucosa: pink and intact, moist, Posterior pharynx: is normal, airway is patent, no erythema, no exudate, 18:20 Chest/axilla: Inspection: normal, 18:20 Cardiovascular: Rate: normal, Rhythm: regular, 18:20 Respiratory: the patient does not display signs of respiratory distress, Respirations: normal, no use of accessory muscles, no retractions, labored breathing, is not present, Breath sounds: are clear throughout, no decreased breath sounds, no stridor, no wheezing, 18:20 Abdomen/GI: Inspection: abdomen appears normal, Bowel sounds: active, all quadrants, Palpation: soft, in all quadrants, mild abdominal tenderness, in all quadrants, 18:20 Back: CVA tenderness, is absent, 18:20 Neuro: Orientation: to person, place \T\ time. Mentation: is normal, Motor: moves all fours, strength is normal, Sensation: is normal, Vital Signs: 18:00 BP 101 / 73; Pulse 97; Resp 18; Temp 98.6(O); Pulse Ox 96% ; Weight 63.5 kg; Height 5 cm10 ft. 2 in. ; Pain 8/10; 20:22 BP 123 / 87; Pulse 92; Resp 16; Pulse Ox 99% on R/A; jb4 20:35 Temp 99(O); jb4 18:00 Body Mass Index 25.61 (63.50 kg, 157.48 cm) cm10 18:00 Pain Scale: Adult cm10 MDM: 18:10 Patient medically screened. 20:50 Data reviewed: vital signs, nurses notes, lab test result(s), and as a result, I will cp discharge patient. 20:50 I considered the following discharge prescriptions or medication management in the emergency department Medications were administered in the Emergency Department. See MAR. Test considered but Not performed: CT: abdomen/pelvis. Counseling: I had a detailed discussion with the patient and/or guardian regarding the historical points, exam findings, and any diagnostic results supporting the discharge/admit diagnosis, lab results, to return to the emergency department if symptoms worsen or persist or if there are any questions or concerns that arise at home. Response to treatment: the patient's symptoms have mildly improved after treatment, nausea and pain improved, vomiting resolved and patient tolerating po fluids, and as a result, I will discharge patient. 12/12 18:01 Order name: CBC with Diff; Complete Time: 20:49 cp 12/12 20:49 Interpretation: Normal except: RBC 4.93; RDW 16.3; LYM% 14.5; MN% 14.5; MNA 1.4. cp 12/12 18:01 Order name: CMP; Complete Time: 20:49 cp 12/12 20:49 Interpretation: Normal except: NA 134; K 3.4; GLUC 109; AST 74; ALT 119; ALK 127; ALB cp 3.3; GLOB 4.5; A/G 0.7. 12/12 18: Order name: Lipase; Complete Time: 20:49 cp 12/12 18:01 Order name: Test, Urine; Complete Time: 20:49 cp 12/12 18: Order name: Urinalysis w/ reflexes; Complete Time: 20:49 cp 12/12 18: Order name: IV Saline Lock; Complete Time: 20:21 cp 12/12 18:01 Order name: Labs collected and sent; Complete Time: 20:21 cp Administered Medications: 20:34 Drug: metoCLOPramide IVP 10 mg IVP once; over 1 to 2 minutes Route: IVP; Site: right jb4 antecubital; 21:09 Follow up: Response: No adverse reaction; Marked relief of symptoms jb4 20:34 Drug: Famotidine IVP 20 mg IVP once; dilute with 10 mL 0.9% NaCl; give over 2 minutes jb4 Route: IVP; Site: right antecubital; 21:09 Follow up: Response: No adverse reaction; Marked relief of symptoms jb4 20:35 Drug: NS 0.9% IV 1000 ml IV at 1 bolus Per protocol; 1000 mL bolus Route: IV; Rate: 1 jb4 bolus; Site: right antecubital; 21:09 Drug: Potassium PO Effervescent Tablet 50 mEq PO once; dissolve in 4 ounces of water or jb4 juice Route: PO; 21:10 Follow up: Response: Medication administered at discharge. jb4 Disposition Summary: 12/12/22 20:51 Discharge Ordered Notes: Location: Home cp Problem: new cp Symptoms: have improved cp Condition: Stable cp Diagnosis - Nausea with vomiting, unspecified cp - Diarrhea, unspecified cp Followup: cp - With: Emergency Department - When: As needed - Reason: Worsening of condition Discharge Instructions: - Discharge Summary Sheet cp - Food Choices to Help Relieve Diarrhea, Adult cp - Diarrhea, Adult cp - Nausea and Vomiting, Adult cp Forms: - Medication Reconciliation Form cp - Thank You Letter cp - Antibiotic Education cp - Prescription Opioid Use cp - Patient Portal Instructions cp - Leadership Thank You Letter cp Prescriptions: - Pepcid 20 mg Oral Tablet - take 1 tablet ORAL route every 12 hours for 10 days; 20 tablet; Refills: 0, cp Product Selection Permitted - Zofran 4 mg Oral Tablet - take 1 tablet ORAL route every 12 hours As needed; 20 tablet; Refills: 0, cp Product Selection Permitted Signatures: Dispatcher [employer] EDMS Billy Kilpatrick PA PA cp Bryson, James, RN RN jb4 Chelle Chavis RN RN cm10
[2022-12-12] MEDS ORDERED: POTASSIUM 25 MEQ EFFERV TAB ONE (21:11)
[2022-12-12 21:47] VITALS: BP 123/87; O2SAT 99
[2022-12-12 21:48] VITALS: TEMP 99
== END 2022-12-12 21:10 | disposition home or self-care (01) ==
LOC: ER 17:42
DX: R11.2 Nausea with vomiting, unspecified (principal); R19.7 Diarrhea, unspecified; F43.10 Post-traumatic stress disorder, unspecified; K58.9 Irritable bowel syndrome, unspecified; K31.89 Other diseases of stomach and duodenum; Z88.8 Allergy status to other drugs, medicaments and biological substances
CPT/HCPCS: 85025; 81001; 36415; 81025; 83690; 80053; 96375; 96374; 99284; J2765; J7030

== ENCOUNTER 2022-12-14 11:33 | Emergency (ER) | payer BC, OTHER ==
--- OUTSIDE RECORDS SUMMARY | 2022-12-14 11:38 | XMS REPORT | Continuity of Care Document ---
:1990 Author Organization [facility] t Address [address] [place] [address] Care Team Providers Name Role Phone Ted [...] Clinician haloperi DA Active SV [facility] dol 5-03 [facility] scopolam DA Active [facility] No Known DA Active U [facility] Allergie 1- [facility] 00[facility] No Known DA Active U [facility] Allergie -16 [facility] 00[facility] No Known DA Active U [facility] Allergie 5-16 [facility] scopolam DA Active DE 2020- [facility] 4[facility]10 [facility] 00:00: [...] No Known DA Active U NONE [facility] Drug 9-15 [facility] Intolera 00:00: [facility] Medications This patient has no known medications. Procedures This patient has no known procedures. Encounters Start End Encounter Admission Attending Care Care Encounter Source Date/Time Date/Time Type Type Clinicians Facility Department ID 2020-06-24 Inpatient [facility] [id number] [facility]:53[facility] 2020-05-19 Inpatient [facility] [id number] [facility] 11:42:02 19 [facility] 2019-07-30 Inpatient [facility] ER [id number] [facility] 21:08:00 63 [facility] 2022-06-11 2022-06-11 Emergency EM Schultz, [facility] ER [id number] [facility] 11:10:00 12:41:00 Ted [facility] 2021-02-09 2021-02-10 Emergency EM Peguero, [facility] ER [id number] [facility] 23:10:00 00:19:00 Kaelyn 49 [...] Suprapubic PainURINE SOURCE: CLEAN CATCH URINEUR HCG [id number] 11:54:00 Test Item Value Reference Range Interpretation Comments UR HCG QUAL (test code = HCGQLU) NEGATIVE NEGATIVE Indication for culture: Suprapubic PainURINE SOURCE: CLEAN CATCH URINE COMPREHENSIVE METABOLIC [id number] 11:49:00 Test Item Value Reference Range Interpretation [...] 45-117 N TOTAL (test code = ALKP) [id number] 11:49:00 Test Item Value Reference Range Interpretation Comments AMYLASE (test code = PARAM) 73 IU/L 25-115 N [id number] 11:49:00 Test Item Value Reference Range Interpretation Comments LIPASE (test code = LIP) 134 U/L 73-393 N CBC W/AUTO [id number] 11:33:00 Test Item Value Reference Range Interpretation [...] NO NORMAL code = RBCM) COMPREHENSIVE METABOLIC [id number] 16:11:00 Test Item Value Reference Range Interpretation [...] RESULT BY1.21. [Automated mess age] The system [employer] generated this result transmitted ref erence range: [...] 45-117 H TOTAL (test code = ALKP) [id number] 16:11:00 Test Item Value Reference Range Interpretation Comments LIPASE (test code = LIP) 108 U/L 73-393 N URINALYSIS W REFLEX [id number] 16:05:00 Test Item Value Reference Range Interpretation [...] UA MICRO code = UAMICRO) UR HCG [id number] 16:05:00 Test Item Value Reference Range Interpretation Comments UR HCG QUAL (test code = HCGQLU) NEGATIVE NEGATIVE URINALYSIS W REFLEX [id number] 16:05:00 Test Item Value Reference Range Interpretation [...] DO UA MICRO code = UAMICRO) UA [id number] 16:05:00 Test Item Value Reference Range Interpretation Comments UA WBC (test code = WBCU) 0-2 #/hpf 0-5 UA RBC (test code = RBCU) 0-2 #/hpf 0-5 UA EPITHELIAL CELLS (test code = 2+ /hpf NEG,FEW A EPIU) UA BACTERIA (test code = BACU) FEW /hpf NEGATIVE A UA AMORPHOUS SEDIMENT (test code = FEW /hpf NEG,FEW AMORU) UR HCG [id number] 16:05:00 Test Item Value Reference Range Interpretation Comments UR HCG QUAL (test code = HCGQLU) NEGATIVE NEGATIVE URINALYSIS W REFLEX [id number] 16:05:00 Test Item Value Reference Range Interpretation [...] UA MICRO code = UAMICRO) UR HCG [id number] 16:05:00 Test Item Value Reference Range Interpretation Comments UR HCG QUAL (test code = HCGQLU) NEGATIVE NEGATIVE DRUGS OF ABUSE [id number] 16:01:00 Test Item Value Reference Range Interpretation Comments UR COCAINE (test code NEGATIVE ng/ml NEGATIVE = COCAU) UR CANNABINOIDS (test POSITIVE ng/ml NEGATIVE A DALY UE EXCEEDS code = CANU) CRITICAL LEVEL. CRITICAL VALUE CALLEDTO AND CRITICAL VALUE READ BACK BY HUBER DOWNING RN 1 [phone] 06/24/20. Chas Dixon POSITIVE URINE DRUG SCREEN [...] code = WAS TESTE D AT [facility]) LISTED CUTOFFS DRUG CLASS INIT IAL TEST LEVEL AMPHETAMINES 10 00 NG/MLBARBITURAT ES 200 NG/MLBENZODIAZE PIN ES 200 NG/MLCOCAINE METABOLITE 300 NG/MLMARIJUANA METABOLITE 50 NG/MLOPIATES 3 00 NG/MLPHENCYCLID INE 25 NG/ML URINALYSIS W REFLEX [id number] 15:58:00 Test Item Value Reference Range Interpretation [...] NEEDED? (test code = UAMICRO) UR HCG [id number] 15:58:00 Test Item Value Reference Range Interpretation Comments UR HCG QUAL (test code = HCGQLU) NEGATIVE NEGATIVE CBC W/AUTO [id number] 15:52:00 Test Item Value Reference Range Interpretation [...] NORMAL code = RBCM) URINALYSIS W REFLEX [id number] 13:00:00 Test Item Value Reference Range Interpretation [...] MICRO code = UAMICRO) UA ICTOTEST FOR [id number] 13:00:00 Test Item Value Reference Range Interpretation Comments UA ICTOTEST FOR BILIRUBIN (test code POSITIVE NEGATIVE A = ICTOU) UA [id number] 13:00:00 Test Item Value Reference Range Interpretation Comments UA WBC (test code = WBCU) 0-2 #/hpf 0-5 UA RBC (test code = RBCU) 3-5 #/hpf 0-5 UA EPITHELIAL CELLS (test code = FEW /hpf NEG,FEW EPIU) UA BACTERIA (test code = BACU) FEW /hpf NEGATIVE A UA MUCUS (test code = MUCU) 1+ /hpf NEG,FEW A UR HCG [id number] 13:00:00 Test Item Value Reference Range Interpretation Comments UR HCG QUAL (test code = HCGQLU) NEGATIVE NEGATIVE DRUGS OF ABUSE [id number] 12:57:00 Test Item Value Reference Range Interpretation [...] code = WAS TESTE D AT [facility]) LISTED CUTOFFS DRUG CLASS INIT IAL TEST LEVEL AMPHETAMINES 10 00 NG/MLBARBITURAT ES 200 NG/MLBENZODIAZE PIN ES 200 NG/MLCOCAINE METABOLITE 300 NG/MLMARIJUANA METABOLITE 50 NG/MLOPIATES 30 0 NG/MLPHENCYCLID INE 25 NG/ML URINALYSIS W REFLEX [id number] 12:56:00 Test Item Value Reference Range Interpretation [...] MICRO code = UAMICRO) UA ICTOTEST FOR [id number] 12:56:00 Test Item Value Reference Range Interpretation Comments UA ICTOTEST FOR BILIRUBIN (test code POSITIVE NEGATIVE A = ICTOU) UR HCG [id number] 12:56:00 Test Item Value Reference Range Interpretation Comments UR HCG QUAL (test code = HCGQLU) NEGATIVE NEGATIVE URINALYSIS W REFLEX [id number] 12:53:00 Test Item Value Reference Range Interpretation [...] UA MICRO code = UAMICRO) UR HCG [id number] 12:53:00 Test Item Value Reference Range Interpretation Comments UR HCG QUAL (test code = HCGQLU) NEGATIVE NEGATIVE URINALYSIS W REFLEX [id number] 12:53:00 Test Item Value Reference Range Interpretation [...] UA MICRO code = UAMICRO) UR HCG [id number] 12:53:00 Test Item Value Reference Range Interpretation Comments UR HCG QUAL (test code = HCGQLU) NEGATIVE NEGATIVE - XR ABDOMEN [id number] 12:16:00 [facility] BRE[facility]NA QUEEN : 1990 Sex: F FAX: Sawyer Centeno II [place]: St: PRE Name: BREANNA QUEEN Ross FSED : 1990 Age/S: 30/F [address] Unit #: [id number] Loc: [place] [address] Phys: Sawyer Centeno II, MD Acct: [id number] Dis Date: Status: PRE ER PHONE #: Exam Date: 05/19/2020 1212 FAX #: Reason: abdominal pain EXAMS: CPT CODE: [id number] XR ABDOMEN 2V 77683 - XR ABDOMEN 2V PROVIDED REASON FOR [...] RT Bekah (R) CT Trnscrd Date/Time/By: 05/19/2020 (5273) : By: [email or web address] Orig Print D/T: S: 05/19/2020 (3997) PAGE 1 Signed ReportBASIC METABOLIC PANEL 2020-05-19 [...] RESULT BY1.21. [Automated mess age] The system AssayMetrics generated this result transmitted ref erence range: >=60. Th e reference range was not used to int erpret this result as normal/abnormal . CREATININE (test code 0.64 mg/dl 0.55-1.02 N = CREAT) CALCIUM (test code = 9.8 mg/dL 8.5-10.1 N CA) LIVER [id number] 12:08:00 Test Item Value Reference Range Interpretation [...] 119 U/L 45-117 H code = ALKP) [id number] 12:08:00 Test Item Value Reference Range Interpretation Comments LIPASE (test code = LIP) 67 U/L 73-393 L CBC W/AUTO [id number] 11:43:00 Test Item Value Reference Range Interpretation [...] NORMAL code = RBCM) URINALYSIS W REFLEX [id number] 22:06:00 Test Item Value Reference Range Interpretation [...] MUCU) 2+ /hpf NEG,FEW A BASIC METABOLIC [id number] 21:54:00 Test Item Value Reference Range Interpretation [...] = 9.3 mg/dL 8.5-10.1 N CA) LIVER [id number] 21:54:00 Test Item Value Reference Range Interpretation [...] 69 U/L 50-136 N code = ALKP) [id number] 21:54:00 Test Item Value Reference Range Interpretation Comments LIPASE (test code = LIP) 63 U/L 73-393 L BASIC METABOLIC [id number] 21:53:00 Test Item Value Reference Range Interpretation [...] = 9.3 mg/dL 8.5-10.1 N CA) LIVER [id number] 21:53:00 Test Item Value Reference Range Interpretation [...] TOTAL (test U/L 50-136 code = ALKP) [id number] 21:53:00 Test Item Value Reference Range Interpretation Comments LIPASE (test code = LIP) 63 U/L 73-393 L BASIC METABOLIC [id number] 21:52:00 Test Item Value Reference Range Interpretation [...] = 9.3 mg/dL 8.5-10.1 N CA) LIVER [id number] 21:52:00 Test Item Value Reference Range Interpretation [...] TOTAL (test U/L 50-136 code = ALKP) [id number] 21:52:00 Test Item Value Reference Range Interpretation Comments LIPASE (test code = LIP) 63 U/L 73-393 L BASIC METABOLIC [id number] 21:51:00 Test Item Value Reference Range Interpretation [...] = 9.3 mg/dL 8.5-10.1 N CA) LIVER [id number] 21:51:00 Test Item Value Reference Range Interpretation [...] TOTAL (test U/L 50-136 code = ALKP) [id number] 21:51:00 Test Item Value Reference Range Interpretation Comments LIPASE (test code = LIP) 63 U/L 73-393 L BASIC METABOLIC [id number] 21:49:00 Test Item Value Reference Range Interpretation [...] = CA) 9.3 mg/dL 8.5-10.1 N LIVER [id number] 21:49:00 Test Item Value Reference Range Interpretation [...] TOTAL (test U/L 50-136 code = ALKP) [id number] 21:49:00 Test Item Value Reference Range Interpretation Comments LIPASE (test code = LIP) 63 U/L 73-393 L BASIC METABOLIC [id number] 21:48:00 Test Item Value Reference Range Interpretation [...] = CA) 9.3 mg/dL 8.5-10.1 N LIVER [id number] 21:48:00 Test Item Value Reference Range Interpretation Comments TOTAL PROTEIN (test code = PROT) g/dl 6.4-8.2 ALBUMIN (test code = ALB) g/dl 3.4-5.0 BILIRUBIN TOTAL (test code = BILT) mg/dl 0.2-1.0 BILIRUBIN DIRECT (test code = BILD) mg/dl 0.0-0.4 SGOT/AST (test code = AST) U/L 15-37 SGPT/ALT (test code = ALT) U/L 12-78 ALKALINE PHOSPHATASE TOTAL (test code U/L 50-136 = ALKP) [id number] 21:48:00 Test Item Value Reference Range Interpretation Comments LIPASE (test code = LIP) U/L 73-393 BASIC METABOLIC [id number] 21:46:00 Test Item Value Reference Range Interpretation [...] (test code = CA) mg/dL 8.5-10.1 LIVER [id number] 21:46:00 Test Item Value Reference Range Interpretation Comments TOTAL PROTEIN (test code = PROT) g/dl 6.4-8.2 ALBUMIN (test code = ALB) g/dl 3.4-5.0 BILIRUBIN TOTAL (test code = BILT) mg/dl 0.2-1.0 BILIRUBIN DIRECT (test code = BILD) mg/dl 0.0-0.4 SGOT/AST (test code = AST) U/L 15-37 SGPT/ALT (test code = ALT) U/L 12-78 ALKALINE PHOSPHATASE TOTAL (test code U/L 50-136 = ALKP) [id number] 21:46:00 Test Item Value Reference Range Interpretation Comments LIPASE (test code = LIP) U/L 73-393 CBC W/AUTO [id number] 21:43:00 Test Item Value Reference Range Interpretation [...]
[2022-12-14] MEDS ORDERED: NA CHLORIDE 0.9% 1,000 ML ONE (11:58)
[2022-12-14] MEDS ORDERED: METOCLOPRAMIDE 10 MG/2mL INJ ONE (11:58)
[2022-12-14 12:11] LABS: Absolute Lymphocytes (CBC) 0.6 K/uL (0.7-4.9); Lymphocytes % 5.5 % (15.3-44.8); MCV 82.4 fL (80-100); MPV 10.2 fL (7.6-11.3); Platelets 220 thou/uL (152-406); RBC Red Blood Cell Count 4.86 M/uL (3.86-4.86)
[2022-12-14 12:16] LABS: Protime INR 1.17
[2022-12-14 12:27] LABS: Bilirubin Total 0.4 mg/dL (0.2-1.0); Potassium 3.9 mEq/L (3.5-5.1); Protein, Total 7.2 g/dL (6.4-8.2)
[2022-12-14 12:35] LABS: SARS-CoV-2 Antigen Rapid Res Negative (Negative)
[2022-12-14 13:35] LABS: Specific Gravity > 1.030 (1.005-1.030); Urine Bacteria None Seen /HPF (<20); Urine Bilirubin NEGATIVE (Negative); Urine Blood Trace (Negative); Urine Clarity Clear (Clear); Urine Color Colorless (Yellow); Urine Glucose NEGATIVE (Negative); Urine Protein NEGATIVE (Negative); Urine Urobilinogen Normal (Normal)
--- NOTE | 2022-12-14 13:42 | RAD REPORT ---
EXAM DESCRIPTION: CT - Abdomen Pelvis W Contrast - 12/14/2022 12:42 pm CLINICAL HISTORY: Abd pain;Nausea / vomiting COMPARISON: Abdomen Pelvis W Contrast dated 10/25/2021; Abdomen Pelvis W Contrast dated 09/06/2021 ; Abdomen Pelvis W Contrast dated 03/29/2021 TECHNIQUE: Thin cut axial CT imaging of the abdomen and pelvis was performed following intravenous a dministration of 100 mL Isovue 300. Multiplanar reformats were generated and reviewed. All CT scans are performed using dose optimization technique as appropriate and may include automated exposure control or mA/KV adjustment according to patient size. FINDINGS: No suspicious findings in the lung bases. The liver, spleen, adrenal glands, and pancreas show no suspicious findings. Gallbladder was surgical ly removed. 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 No hydronephrosis, rad iopaque calculi, or suspicious renal mass. No dilated bowel loops or bowel wall thickening. No free air, free fluid or inflammatory stranding. N o hernia, mass or bulky lymphadenopathy. The urinary bladder is without significant finding. No suspicious bony findings. IMPRESSION: No acute intra-abdominal process.
--- NOTE | 2022-12-14 14:08 | RAD REPORT ---
EXAM DESCRIPTION: [facility]22 12:51 pm CLINICAL HISTORY: cough, fever COMPARISON: Chest Single View dated 10/25/2022; Abdomen Acute Series dated 04/02/2022 TECHNIQUE: Portable AP view of the chest. FINDINGS: The lungs are clear. No pneumothorax or effusion. The cardiomediastinal contours are unre markable. IMPRESSION: No acute cardiopulmonary process.
--- NOTE | 2022-12-14 15:01 | EDPHYS ---
Physician Documentation [facility] Name: Efrem Pastor Age: 32 yrs Sex: Female : 1990 Arrival Date: 12/14/2022 Time: 11:33 Bed 7 Private MD: ED Physician Faheem Stewart HPI: 12/14 12:46 This 32 yrs old Female presents to ER via EMS with complaints of Flu Symptoms, rn gastroparesis. 12:46 The patient presents to the emergency department with nausea, vomiting, diarrhea, rn abdominal pain. Onset: The symptoms/episode began/occurred 2 day(s) ago. Possible causes: unknown. The symptoms are aggravated by nothing. The symptoms are alleviated by nothing. Associated signs and symptoms: Pertinent positives: abdominal pain, diarrhea, fever, nausea, vomiting. Severity of symptoms: At their worst the symptoms were moderate in the emergency department the symptoms are unchanged. The patient has experienced similar episodes in the past. The patient has been recently seen by a physician:. Patient reports had flu last week, got better but then last 2 days has been sick again with fever, chills, nausea/vomiting. Reports also has gastroparesis. Reports abdominal cramping. No blood in the stool.. 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 - Social history:: Smoking status: Reported history of juuling and/or vaping. - Family history:: not pertinent. - Hospitalizations: : No recent hospitalization is reported. ROS: 12:46 Constitutional: Positive for fever and chills Eyes: Negative for injury, pain, redness, rn and discharge, Neck: Negative for injury, pain, and swelling, Cardiovascular: Negative for chest pain, palpitations, and edema, Respiratory: Positive for cough, negative for shortness of breath Abdomen/GI: Positive for abdominal pain/nausea/vomiting/diarrhea Back: Negative for injury and pain, : Negative for injury, bleeding, discharge, and swelling, MS/Extremity: Negative for injury and deformity, Skin: Negative for injury, rash, and discoloration, Neuro: Positive for headache and generalized weakness Exam: 12:46 Constitutional: This is a well developed, well nourished patient who is awake, alert, rn and in no acute distress. Head/Face: Normocephalic, atraumatic. ENT: Dry mucous membranes Cardiovascular: Tachycardic, regular. Respiratory: No increased work of breathing, no retractions or nasal flaring. Abdomen/GI: Soft, mild epigastric and mid abdominal tenderness Skin: Warm, dry MS/ Extremity: Pulses equal, no cyanosis. Neuro: Awake and alert, GCS 15 Vital Signs: 11:36 BP 117 / 95; Pulse 112; Resp 18; Temp 99.2(O); Pulse Ox 100% on R/A; Weight 63.5 kg; mb9 Height 5 ft. 2 in. ; 13:17 BP 124 / 89; Pulse 120; Resp 18; Pulse Ox 98% ; mb9 15:14 BP 117 / 79; Pulse 110; Resp 16; Pulse Ox 100% on R/A; mb9 11:36 Body Mass Index 25.61 (63.50 kg, 157.48 cm) mb9 MDM: 11:37 Patient medically screened. rn 14:59 Differential diagnosis: Nonspecific abd pain, gastritis, pancreatitis, appendicitis, rn diverticulitis, viral gastroenteritis, gastroenteritis, Gastroparesis, flu, COVID. Data reviewed: vital signs, nurses notes, lab test result(s), radiologic studies, CT scan, and as a result, I will discharge patient. Care significantly affected by the following chronic conditions: Gastroparesis. Counseling: I had a detailed discussion with the patient and/or guardian regarding the historical points, exam findings, and any diagnostic results supporting the discharge/admit diagnosis, lab results, radiology results, the need for outpatient follow up, to return to the emergency department if symptoms worsen or persist or if there are any questions or concerns that arise at home. Response to treatment: the patient's symptoms have markedly improved after treatment, and as a result, I will discharge patient. Special discussion: Based on the patient's Hx, exam, and Dx evaluation, there is no indication for emergent surgery or inpatient Tx. It is understood by the patient/guardian that if the Sx's persist or worsen they need to return immediately for re-evaluation. I discussed with the patient/guardian in detail that at this point there is no indication for admission to the hospital. It is understood, however, that if the symptoms persist or worsen the patient needs to return immediately for re-evaluation. ED course: Negative flu/COVID/strep. No acute findings on CT scan. Recent flu infection may have just exacerbated her gastroparesis. I have personally reviewed all of the results, including but not limited to blood tests and imaging deemed necessary to safely discharge this patient at this time. All results given to and printed out for patient. I personally went over all the results with the patient and answered all questions. Patient will follow-up with PCP and or specialist as discussed. Return precautions given and understood.. 12/14 11:39 Order name: Blood Culture Adult (2) 12/14 11:39 Order name: CBC with Diff; Complete Time: 13:25 12/14 11:39 Order name: CMP; Complete Time: 13:25 12/14 11:39 Order name: Lactate w/ 2H reflex if indic.; Complete Time: 13:25 12/14 11:39 Order name: Protime (+inr); Complete Time: 13:25 12/14 11:39 Order name: Ptt, Activated; Complete Time: 13:25 12/14 11:39 Order name: Urinalysis w/ reflexes; Complete Time: 14:11 12/14 11:39 Order name: SARS RAPID; Complete Time: 13:25 12/14 11:39 Order name: Flu; Complete Time: 13:25 12/14 11:39 Order name: Strep 12/14 12:52 Order name: Throat Culture EDOR 12/14 11:39 Order name: Chest Single View XRAY; Complete Time: 14:11 12/14 11:39 Order name: CT Abd/Pelvis - IV Contrast Only; Complete Time: 14:11 12/14 11:39 Order name: EKG; Complete Time: 11:40 rn 12/14 11:39 Order name: Accucheck; Complete Time: 11:42 rn 12/14 11:39 Order name: Cardiac monitoring; Complete Time: 11:42 rn 12/14 11:39 Order name: EKG - Nurse/Tech; Complete Time: 12:07 rn 12/14 11:39 Order name: IV Saline Lock - Large Bore; Complete Time: 11:42 rn 12/14 11:39 Order name: Labs collected and sent; Complete Time: 12:07 rn 12/14 11:39 Order name: O2 Per Protocol; Complete Time: 11:42 rn 12/14 11:39 Order name: O2 Sat Monitoring; Complete Time: 11:42 rn 12/14 11:39 Order name: Vital Signs; Complete Time: 11:42 rn Administered Medications: 12:07 Drug: metoCLOPramide IVP 10 mg IVP once; over 1 to 2 minutes Route: IVP; Site: right mb9 antecubital; 13:49 Follow up: Response: No adverse reaction mb9 12:07 Drug: NS 0.9% IV 1000 ml IV at 1000 ml once Route: IV; Rate: 1000 ml; Site: right mb9 antecubital; 13:49 Follow up: Response: No adverse reaction; IV Status: Completed infusion mb9 14:37 Follow up: Response: No adverse reaction; IV Status: Completed infusion mb9 13:17 Not Given (Patient Refused): ondansetron 4 mg IVP once; over 2 minutes mb9 15:02 Drug: Promethazine IVP 12.5 mg IVP once Route: IVP; Site: right hand; mb9 15:15 Follow up: Response: No adverse reaction mb9 Disposition Summary: 12/14/22 15:01 Discharge Ordered Notes: Location: Home rn Problem: new rn Symptoms: have improved rn Condition: Stable rn Diagnosis - Gastroparesis rn - Nausea with vomiting, unspecified rn - Dehydration rn Followup: rn - With: Private Physician - When: As needed - Reason: Recheck today's complaints, Re-evaluation by your physician Discharge Instructions: - Discharge Summary Sheet rn - Dehydration, Adult rn - Nausea and Vomiting, Adult rn - Gastroparesis rn Forms: - Medication Reconciliation Form rn - Thank You Letter rn - 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
--- NOTE | 2022-12-14 15:01 | ER ---
Nurse's Notes [facility] Name: Efrem Pastor Age: 32 yrs Sex: Female : 1990 Arrival Date: 12/14/2022 Time: 11:33 Bed 7 Private MD: Diagnosis: Gastroparesis;Nausea with vomiting, unspecified;Dehydration Presentation: 12/14 11:36 Chief complaint: EMS states: "toned out for fever x 5 days and N/V that started today. mb9 Pt recently diagnosed with Flu A 2 weeks ago. 20 g to right hand and administered 500 mL on 0.9% NS and 4 mg of Zofran.". Coronavirus screen: Vaccine status: Patient reports receiving the 2nd dose of the covid vaccine. Ebola Screen: No symptoms or risks identified at this time. Initial Sepsis Screen: Does the patient meet any 2 criteria? HR > 90 bpm. Does the patient have a suspected source of infection? No. Patient's initial sepsis screen is negative. Risk Assessment: Do you want to hurt yourself or someone else? Patient reports no desire to harm self or others. Onset of symptoms was December 14, 2022. 11:36 Method Of Arrival: EMS: [facility] mb9 11:36 Acuity: [place] 3 mb9 Triage Assessment: 11:39 General: Appears uncomfortable, Behavior is calm, cooperative. Pain: Complains of pain mb9 in abdomen Pain does not radiate. Pain currently is 10 out of 10 on a pain scale. Quality of pain is described as aching, throbbing. EENT: No signs and/or symptoms were reported regarding the EENT system. Neuro: Vargas Agitation-Sedation Scale (RASS): 0 - Alert and Calm Level of Consciousness is awake, alert, obeys commands, Oriented to person, place, time, situation, Appropriate for age. Cardiovascular: Heart tones S1 S2 present Patient's skin is warm and dry. Respiratory: Airway is patent Respiratory effort is even, unlabored, Respiratory pattern is regular, symmetrical, Breath sounds are clear bilaterally. GI: Abdomen is flat, non-distended, Bowel sounds present X 4 quads. Abd is soft and non tender X 4 quads. Reports diarrhea, nausea, vomiting. : No signs and/or symptoms were reported regarding the genitourinary system. Derm: Skin is intact, Skin is diaphoretic, Skin is normal, Skin temperature is hot. Musculoskeletal: Range of motion: intact in all extremities. 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 - Social history:: Smoking status: Reported history of juuling and/or vaping. - Family history:: not pertinent. - Hospitalizations: : No recent hospitalization is reported. Screenin:41 [facility] ED Fall Risk Assessment (Adult) History of falling in the last 3 months, mb9 including since admission No falls in past 3 months (0 pts) Confusion or Disorientation No (0 pts) Intoxicated or Sedated No (0 pts) Impaired Gait No (0 pts) Mobility Assist Device Used No (0 pt) Altered Elimination No (0 pt) Score/Fall Risk Level 0 - 2 = Low Risk Oriented to surroundings, Maintained a safe environment, Educated pt \\T\\ family on fall prevention, incl call for assistance when getting out of bed. Abuse screen: Denies threats or abuse. Nutritional screening: No deficits noted. Tuberculosis screening: No symptoms or risk factors identified. Assessment: 12:06 Reassessment: see triage assessment. mb9 13:49 Reassessment: Patient and/or family updated on plan of care and expected duration. Pain mb9 level reassessed. Patient is alert, oriented x 3, equal unlabored respirations, skin warm/dry/pink. Patient states feeling better. Patient states symptoms have improved. 14:37 Reassessment: No changes from previously documented assessment. Patient and/or family mb9 updated on plan of care and expected duration. Pain level reassessed. Patient is alert, oriented x 3, equal unlabored respirations, skin warm/dry/pink. 15:14 Reassessment: Patient and/or family updated on plan of care and expected duration. Pain mb9 level reassessed. Patient is alert, oriented x 3, equal unlabored respirations, skin warm/dry/pink. Patient states feeling better. Patient states symptoms have improved. Vital Signs: 11:36 BP 117 / 95; Pulse 112; Resp 18; Temp 99.2(O); Pulse Ox 100% on R/A; Weight 63.5 kg; mb9 Height 5 ft. 2 in. ; 13:17 BP 124 / 89; Pulse 120; Resp 18; Pulse Ox 98% ; mb9 15:14 BP 117 / 79; Pulse 110; Resp 16; Pulse Ox 100% on R/A; mb9 11:36 Body Mass Index 25.61 (63.50 kg, 157.48 cm) mb9 ED Course: 11:36 Patient arrived in ED. mb9 11:36 Arm band placed on. mb9 11:37 Faheem Stewart MD is Attending Physician. rn 11:39 Triage completed. mb9 11:41 No provider procedures requiring assistance completed. Maintain EMS IV. Dressing mb9 intact. Good blood return noted. Site clean \\T\\ dry. Gauge \\T\\ site: 20 g to right hand. 12:06 Kiar Hodges RN is Primary Nurse. mb9 12:06 Inserted saline lock: 22 gauge in right antecubital area, using aseptic technique. mb9 12:07 Placed in gown. Bed in low position. Call light in reach. Side rails up X 1. Client mb9 placed on continuous cardiac and pulse oximetry monitoring. NIBP monitoring applied. playground monitor on. 12:07 EKG done, by ED staff, reviewed by Faheem Stewart MD. mb9 12:07 Strep Sent. mb9 12:07 Flu Sent. mb9 12:07 SARS RAPID Sent. mb9 12:07 Blood Culture Adult (2) Sent. mb9 12:07 CBC with Diff Sent. mb9 12:07 CMP Sent. mb9 12:07 Ptt, Activated Sent. mb9 12:07 Protime (+inr) Sent. mb9 12:44 CT Abd/Pelvis - IV Contrast Only In Process Unspecified. EDMS 12:53 Chest Single View XRAY In Process Unspecified. EDMS 13:17 Urinalysis w/ reflexes Sent. mb9 15:15 IV discontinued, intact, bleeding controlled, No redness/swelling at site. Pressure mb9 dressing applied. Administered Medications: 12:07 Drug: metoCLOPramide IVP 10 mg IVP once; over 1 to 2 minutes Route: IVP; Site: right mb9 antecubital; 13:49 Follow up: Response: No adverse reaction mb9 12:07 Drug: NS 0.9% IV 1000 ml IV at 1000 ml once Route: IV; Rate: 1000 ml; Site: right mb9 antecubital; 13:49 Follow up: Response: No adverse reaction; IV Status: Completed infusion mb9 14:37 Follow up: Response: No adverse reaction; IV Status: Completed infusion mb9 13:17 Not Given (Patient Refused): ondansetron 4 mg IVP once; over 2 minutes mb9 15:02 Drug: Promethazine IVP 12.5 mg IVP once Route: IVP; Site: right hand; mb9 15:15 Follow up: Response: No adverse reaction mb9 Medication: 12:07 VIS not applicable for this client. mb9 Outcome: 15:01 Discharge ordered by . rn 15:15 Discharged to home ambulatory, mb9 15:15 Condition: stable 15:15 Discharge instructions given to patient, Instructed on discharge instructions, follow up and referral plans. Demonstrated understanding of instructions, follow-up care, medications, Prescriptions given X 1, 15:15 Patient left the ED. mb9 Signatures: Dispatcher [employer] EDMS Faheem Stewart MD MD rn Breneman, Mary Beth, RN RN mb9 Corrections: (The following items were deleted from the chart) 11:41 11:36 Chief complaint: EMS states: "toned out for fever x 5 days and N/V that started mb9 today. Pt recently diagnosed with Flu A 2 weeks ago. 20 g to right hand and administered 500 mL on 0.9% NS." mb9
[2022-12-14] MEDS ORDERED: PROMETHAZINE INJ 25 MG/ML AMP ONE (15:18)
[2022-12-14 15:40] VITALS: TEMP 99.2
[2022-12-14 15:42] VITALS: BP 117/79; O2SAT 100
--- NOTE | 2022-12-20 14:36 | EKG ---
Test Date: 2022-12-14 Test Time: 13:01:59 Patent Litigation Associate: MB MEASUREMENT RESULTS: Intervals: Rate: 113 IA: 128 QRSD: 80 QT: 302 QTc: 414 Madeline: P: 80 IA: 128 QRS: 95 T: 50 INTERPRETIVE STATEMENTS: Sinus tachycardia Right atrial enlargement Borderline ECG Compared to ECG 08/12/2022 16:34:57 Atrial abnormality now present Sinus rhythm no longer present Sinus arrhythmia no longer present Prolonged QT interval no longer present Electronically Signed On 12-20-22 14:18:44 ATHLETIC EVENTS SCORER by Otto Tovar
== END 2022-12-14 15:15 | disposition home or self-care (01) ==
LOC: ER 11:33
DX: R11.2 Nausea with vomiting, unspecified (principal); E86.0 Dehydration; K31.84 Gastroparesis; Z11.52 Encounter for screening for COVID-19; Z88.5 Allergy status to narcotic agent; Z88.8 Allergy status to other drugs, medicaments and biological substances
CPT/HCPCS: 93005; 87040 ×2; 87070; 85025; 81001; 36415; 85610; 87081; 83605; 85730; 80053; 87804 ×2; 74177; 71045; 99285; 87811; Q9967; J2550; J2765; J7030

== ENCOUNTER 2022-12-17 12:52 | Emergency (ER) | payer BC ==
--- OUTSIDE RECORDS SUMMARY | 2022-12-17 12:56 | XMS REPORT | Continuity of Care Document ---
:1990 Author Organization [facility] t Address [address] [place] [address] Care Team Providers Name Role Phone Ted [...] Clinician haloperi DA Active SV HIVES [facility] dol 5-03 [facility] scopolam DA Active [facility] No Known DA Active U [facility] Allergie 1- [facility] 00:[facility] No Known DA Active U [facility] Allergie -16 [facility] 00:[facility] No Known DA Active U [facility] 5[facility]16 [facility] scopolam DA Active [place] 2020- [facility] scopolam [place] Active [place] RASH-HIVES [facility] 4[facility] 00:00: [...] No Known DA Active U NONE [facility] Drug 9-15 [facility] Intolera 00:00: [facility] Medications This patient has no known medications. Procedures This patient has no known procedures. Encounters Start End Encounter Admission Attending Care Care Encounter Source Date/Time Date/Time Type Type Clinicians Facility Department ID 2020-06-24 Inpatient [facility] [id number] [facility] 2020-05-19 Inpatient [facility] [id number] [facility] 11:42:02 19 [facility] 2019-07-30 Inpatient [facility] ER [id number] [facility] 21:08:00 63 [facility] 2022-06-11 2022-06-11 Emergency EM Schultz, [facility] ER [id number] [facility] 11:10:00 12:41:00 Ted [facility] 2021-02-09 2021-02-10 Emergency EM Peguero, [facility] ER [id number] [facility] 23:10:00 00:19:00 Kaelyn 49 [...] N UA BLOOD DIPSTICK (test code = NISAS) TRACE /UL NEGATIVE A UA PH DIPSTICK [...] Suprapubic PainURINE SOURCE: CLEAN CATCH URINEUR HCG [id number] 11:54:00 Test Item Value Reference Range Interpretation Comments UR HCG QUAL (test code = HCGQLU) NEGATIVE NEGATIVE Indication for culture: Suprapubic PainURINE SOURCE: CLEAN CATCH URINE COMPREHENSIVE METABOLIC [id number] 11:49:00 Test Item Value Reference Range Interpretation [...] 45-117 N TOTAL (test code = ALKP) [id number] 11:49:00 Test Item Value Reference Range Interpretation Comments AMYLASE (test code = PARAM) 73 IU/L 25-115 N [id number] 11:49:00 Test Item Value Reference Range Interpretation Comments LIPASE (test code = LIP) 134 U/L 73-393 N CBC W/AUTO [id number] 11:33:00 Test Item Value Reference Range Interpretation [...] NO NORMAL code = RBCM) COMPREHENSIVE METABOLIC [id number] 16:11:00 Test Item Value Reference Range Interpretation [...] RESULT BY1.21. [Automated mess age] The system [employer] generated this result transmitted ref erence range: [...] 45-117 H TOTAL (test code = ALKP) [id number] 16:11:00 Test Item Value Reference Range Interpretation Comments LIPASE (test code = LIP) 108 U/L 73-393 N URINALYSIS W REFLEX [id number] 16:05:00 Test Item Value Reference Range Interpretation [...] UA MICRO code = UAMICRO) UR HCG [id number] 16:05:00 Test Item Value Reference Range Interpretation Comments UR HCG QUAL (test code = HCGQLU) NEGATIVE NEGATIVE URINALYSIS W REFLEX [id number] 16:05:00 Test Item Value Reference Range Interpretation [...] DO UA MICRO code = UAMICRO) UA [id number] 16:05:00 Test Item Value Reference Range Interpretation Comments UA WBC (test code = WBCU) 0-2 #/hpf 0-5 UA RBC (test code = RBCU) 0-2 #/hpf 0-5 UA EPITHELIAL CELLS (test code = 2+ /hpf NEG,FEW A EPIU) UA BACTERIA (test code = BACU) FEW /hpf NEGATIVE A UA AMORPHOUS SEDIMENT (test code = FEW /hpf NEG,FEW AMORU) UR HCG [id number] 16:05:00 Test Item Value Reference Range Interpretation Comments UR HCG QUAL (test code = HCGQLU) NEGATIVE NEGATIVE URINALYSIS W REFLEX [id number] 16:05:00 Test Item Value Reference Range Interpretation [...] UA MICRO code = UAMICRO) UR HCG [id number] 16:05:00 Test Item Value Reference Range Interpretation Comments UR HCG QUAL (test code = HCGQLU) NEGATIVE NEGATIVE DRUGS OF ABUSE [id number] 16:01:00 Test Item Value Reference Range Interpretation Comments UR COCAINE (test code NEGATIVE ng/ml NEGATIVE = COCAU) UR CANNABINOIDS (test POSITIVE ng/ml NEGATIVE A DALY UE EXCEEDS code = CANU) CRITICAL LEVEL. CRITICAL VALUE CALLEDTO AND CRITICAL VALUE READ BACK BY HUBER DOWNING RN 1 173 06/24/20. Chas Dixon POSITIVE URINE DRUG SCREEN [...] code = WAS TESTE D AT THE [facility]) LISTED CUTOFFS DRUG CLASS INIT IAL TEST LEVEL AMPHETAMINES 10 00 NG/MLBARBITURAT ES 200 NG/MLBENZODIAZE PIN ES 200 NG/MLCOCAINE METABOLITE 300 NG/MLMARIJUANA METABOLITE 50 NG/MLOPIATES 3 00 NG/MLPHENCYCLID INE 25 NG/ML URINALYSIS W REFLEX [id number] 15:58:00 Test Item Value Reference Range Interpretation [...] NEEDED? (test code = UAMICRO) UR HCG [id number] 15:58:00 Test Item Value Reference Range Interpretation Comments UR HCG QUAL (test code = HCGQLU) NEGATIVE NEGATIVE CBC W/AUTO [id number] 15:52:00 Test Item Value Reference Range Interpretation [...] NORMAL code = RBCM) URINALYSIS W REFLEX [id number] 13:00:00 Test Item Value Reference Range Interpretation [...] MICRO code = UAMICRO) UA ICTOTEST FOR [id number] 13:00:00 Test Item Value Reference Range Interpretation Comments UA ICTOTEST FOR BILIRUBIN (test code POSITIVE NEGATIVE A = ICTOU) UA [id number] 13:00:00 Test Item Value Reference Range Interpretation Comments UA WBC (test code = WBCU) 0-2 #/hpf 0-5 UA RBC (test code = RBCU) 3-5 #/hpf 0-5 UA EPITHELIAL CELLS (test code = FEW /hpf NEG,FEW EPIU) UA BACTERIA (test code = BACU) FEW /hpf NEGATIVE A UA MUCUS (test code = MUCU) 1+ /hpf NEG,FEW A UR HCG [id number] 13:00:00 Test Item Value Reference Range Interpretation Comments UR HCG QUAL (test code = HCGQLU) NEGATIVE NEGATIVE DRUGS OF ABUSE [id number] 12:57:00 Test Item Value Reference Range Interpretation [...] code = WAS TESTE D AT THE [facility]) LISTED CUTOFFS DRUG CLASS INIT IAL TEST LEVEL AMPHETAMINES 10 00 NG/MLBARBITURAT ES 200 NG/MLBENZODIAZE PIN ES 200 NG/MLCOCAINE METABOLITE 300 NG/MLMARIJUANA METABOLITE 50 NG/MLOPIATES 30 0 NG/MLPHENCYCLID INE 25 NG/ML URINALYSIS W REFLEX [id number] 12:56:00 Test Item Value Reference Range Interpretation [...] MICRO code = UAMICRO) UA ICTOTEST FOR [id number] 12:56:00 Test Item Value Reference Range Interpretation Comments UA ICTOTEST FOR BILIRUBIN (test code POSITIVE NEGATIVE A = ICTOU) UR HCG [id number] 12:56:00 Test Item Value Reference Range Interpretation Comments UR HCG QUAL (test code = HCGQLU) NEGATIVE NEGATIVE URINALYSIS W REFLEX [id number] 12:53:00 Test Item Value Reference Range Interpretation [...] UA MICRO code = UAMICRO) UR HCG [id number] 12:53:00 Test Item Value Reference Range Interpretation Comments UR HCG QUAL (test code = HCGQLU) NEGATIVE NEGATIVE URINALYSIS W REFLEX [id number] 12:53:00 Test Item Value Reference Range Interpretation [...] UA MICRO code = UAMICRO) UR HCG [id number] 12:53:00 Test Item Value Reference Range Interpretation Comments UR HCG QUAL (test code = HCGQLU) NEGATIVE NEGATIVE - XR ABDOMEN [id number] 12:16:00 [facility] 1990 Sex: F FAX: Sawyer Centeno II [place]: St: PRE Name: BREANNA QUEEN Person FSED : 1990 Age/S: 30/F [address] Unit #: [id number] Loc: [place] [address] Phys: Sawyer Centeno II, MD Acct: [id number] Dis Date: Status: PRE ER PHONE #: Exam Date: 05/19/2020 1212 FAX #: Reason: abdominal pain EXAMS: CPT CODE: [id number] XR ABDOMEN 2V 37088 - XR ABDOMEN 2V PROVIDED REASON FOR [...] RT Bekah (R) CT Trnscrd Date/Time/By: 05/19/2020 (6304) : By: [email or web address] Orig Print D/T: S: 05/19/2020 (8711) PAGE 1 Signed ReportBASIC METABOLIC PANEL 2020-05-19 [...] RESULT BY1.21. [Automated mess age] The system [employer] generated this result transmitted ref erence range: >=60. Th e reference range was not used to int erpret this result as normal/abnormal . CREATININE (test code 0.64 mg/dl 0.55-1.02 N = CREAT) CALCIUM (test code = 9.8 mg/dL 8.5-10.1 N CA) LIVER [id number] 12:08:00 Test Item Value Reference Range Interpretation [...] 119 U/L 45-117 H code = ALKP) [id number] 12:08:00 Test Item Value Reference Range Interpretation Comments LIPASE (test code = LIP) 67 U/L 73-393 L CBC W/AUTO [id number] 11:43:00 Test Item Value Reference Range Interpretation [...] NORMAL code = RBCM) URINALYSIS W REFLEX [id number] 22:06:00 Test Item Value Reference Range Interpretation [...] MUCU) 2+ /hpf NEG,FEW A BASIC METABOLIC [id number] 21:54:00 Test Item Value Reference Range Interpretation [...] = 9.3 mg/dL 8.5-10.1 N CA) LIVER [id number] 21:54:00 Test Item Value Reference Range Interpretation [...] 69 U/L 50-136 N code = ALKP) [id number] 21:54:00 Test Item Value Reference Range Interpretation Comments LIPASE (test code = LIP) 63 U/L 73-393 L BASIC METABOLIC [id number] 21:53:00 Test Item Value Reference Range Interpretation [...] = 9.3 mg/dL 8.5-10.1 N CA) LIVER [id number] 21:53:00 Test Item Value Reference Range Interpretation [...] TOTAL (test U/L 50-136 code = ALKP) [id number] 21:53:00 Test Item Value Reference Range Interpretation Comments LIPASE (test code = LIP) 63 U/L 73-393 L BASIC METABOLIC [id number] 21:52:00 Test Item Value Reference Range Interpretation [...] = 9.3 mg/dL 8.5-10.1 N CA) LIVER [id number] 21:52:00 Test Item Value Reference Range Interpretation [...] TOTAL (test U/L 50-136 code = ALKP) [id number] 21:52:00 Test Item Value Reference Range Interpretation Comments LIPASE (test code = LIP) 63 U/L 73-393 L BASIC METABOLIC [id number] 21:51:00 Test Item Value Reference Range Interpretation [...] = 9.3 mg/dL 8.5-10.1 N CA) LIVER [id number] 21:51:00 Test Item Value Reference Range Interpretation [...] TOTAL (test U/L 50-136 code = ALKP) [id number] 21:51:00 Test Item Value Reference Range Interpretation Comments LIPASE (test code = LIP) 63 U/L 73-393 L BASIC METABOLIC [id number] 21:49:00 Test Item Value Reference Range Interpretation [...] = CA) 9.3 mg/dL 8.5-10.1 N LIVER [id number] 21:49:00 Test Item Value Reference Range Interpretation [...] TOTAL (test U/L 50-136 code = ALKP) [id number] 21:49:00 Test Item Value Reference Range Interpretation Comments LIPASE (test code = LIP) 63 U/L 73-393 L BASIC METABOLIC [id number] 21:48:00 Test Item Value Reference Range Interpretation [...] = CA) 9.3 mg/dL 8.5-10.1 N LIVER [id number] 21:48:00 Test Item Value Reference Range Interpretation Comments TOTAL PROTEIN (test code = PROT) g/dl 6.4-8.2 ALBUMIN (test code = ALB) g/dl 3.4-5.0 BILIRUBIN TOTAL (test code = BILT) mg/dl 0.2-1.0 BILIRUBIN DIRECT (test code = BILD) mg/dl 0.0-0.4 SGOT/AST (test code = AST) U/L 15-37 SGPT/ALT (test code = ALT) U/L 12-78 ALKALINE PHOSPHATASE TOTAL (test code U/L 50-136 = ALKP) [id number] 21:48:00 Test Item Value Reference Range Interpretation Comments LIPASE (test code = LIP) U/L 73-393 BASIC METABOLIC [id number] 21:46:00 Test Item Value Reference Range Interpretation [...] (test code = CA) mg/dL 8.5-10.1 LIVER [id number] 21:46:00 Test Item Value Reference Range Interpretation Comments TOTAL PROTEIN (test code = PROT) g/dl 6.4-8.2 ALBUMIN (test code = ALB) g/dl 3.4-5.0 BILIRUBIN TOTAL (test code = BILT) mg/dl 0.2-1.0 BILIRUBIN DIRECT (test code = BILD) mg/dl 0.0-0.4 SGOT/AST (test code = AST) U/L 15-37 SGPT/ALT (test code = ALT) U/L 12-78 ALKALINE PHOSPHATASE TOTAL (test code U/L 50-136 = ALKP) [id number] 21:46:00 Test Item Value Reference Range Interpretation Comments LIPASE (test code = LIP) U/L 73-393 CBC W/AUTO [id number] 21:43:00 Test Item Value Reference Range Interpretation [...]
[2022-12-17 13:37] LABS: SARS-CoV-2 Antigen Rapid Res Negative (Negative)
--- NOTE | 2022-12-17 13:41 | EDPHYS ---
Physician Documentation [facility] Name: Efrem Pastor Age: 32 yrs Sex: Female : 1990 Arrival Date: 12/17/2022 Time: 12:52 Bed DX4 Private MD: ED Physician Kishor Nj HPI: 12/17 14:01 This 32 yrs old Female presents to ER via Ambulatory with complaints of Congestion, snw Cough, Flu Symptoms. 14:01 Onset: The symptoms/episode began/occurred gradually, 2 week(s) ago, and became worse 1 snw week(s) ago. Associated signs and symptoms: Pertinent positives: congestion, headache, sore throat. It is unknown whether or not the patient has had similar symptoms in the past. The patient has not recently seen a physician. Historical: - Allergies: 13:32 Haldol; hb 13:32 Scopolamine HBr; hb - PMHx: 13:32 Irritable bowel syndrome; Gastroparesis; PTSD; hb - PSHx: 13:32 bilateral ureter attachment; leep procedure; Lumpectomy of breast; right breast; hb Cholecystectomy; - Immunization history:: Adult Immunizations up to date. - Social history:: Smoking status: Patient denies any tobacco usage or history of. ROS: 14:00 Eyes: Negative for injury, pain, redness, and discharge, snw 14:00 Neck: Negative for injury, pain, and swelling, Cardiovascular: Negative for chest pain, palpitations, and edema, Respiratory: Negative for shortness of breath, cough, wheezing, and pleuritic chest pain, Abdomen/GI: Negative for abdominal pain, nausea, vomiting, diarrhea, and constipation, Back: Negative for injury and pain, : Negative for injury, bleeding, discharge, and swelling, MS/Extremity: Negative for injury and deformity, Skin: Negative for injury, rash, and discoloration, + fever blister to left lower lip Neuro: Negative for headache, weakness, numbness, tingling, and seizure, Psych: Negative for depression, anxiety, suicide ideation, homicidal ideation, and hallucinations, 14:00 Constitutional: Positive for body aches, fatigue, fever, malaise, poor PO intake, 14:00 ENT: Positive for sinus congestion, sore throat, Exam: 13:45 Head/Face: Normocephalic, atraumatic. Eyes: Pupils equal round and reactive to light, snw extra-ocular motions intact. Lids and lashes normal. Conjunctiva and sclera are non-icteric and not injected. Cornea within normal limits. Periorbital areas with no swelling, redness, or edema. Neck: Trachea midline, no thyromegaly or masses palpated, and no cervical lymphadenopathy. Supple, full range of motion without nuchal rigidity, or vertebral point tenderness. No Meningismus. Chest/axilla: Normal chest wall appearance and motion. Nontender with no deformity. No lesions are appreciated. 13:45 Cardiovascular: Regular rate and rhythm with a normal S1 and S2. No gallops, murmurs, or rubs. Normal PMI, no JVD. No pulse deficits. Respiratory: Lungs have equal breath sounds bilaterally, clear to auscultation and percussion. No rales, rhonchi or wheezes noted. No increased work of breathing, no retractions or nasal flaring. Abdomen/GI: Soft, non-tender, with normal bowel sounds. No distension or tympany. No guarding or rebound. No evidence of tenderness throughout. Back: No spinal tenderness. No costovertebral tenderness. Full range of motion. Skin: Warm, dry with normal turgor. Normal color with no rashes, no lesions, and no evidence of cellulitis. MS/ Extremity: Pulses equal, no cyanosis. Neurovascular intact. Full, normal range of motion. Neuro: Awake and alert, GCS 15, oriented to person, place, time, and situation. Cranial nerves II-XII grossly intact. Motor strength 5/5 in all extremities. Sensory grossly intact. Cerebellar exam normal. Normal gait. Psych: Awake, alert, with orientation to person, place and time. Behavior, mood, and affect are within normal limits. 13:45 Constitutional: The patient appears alert, anxious, listless, uncomfortable, 13:45 ENT: External ear(s): are unremarkable, Ear canal(s): are normal, TM's: are normal, Nose: no acute changes, Mouth: is normal, Posterior pharynx: erythema, that is moderate, that is marked, Voice: is normal, Vital Signs: 13:30 BP 119 / 81; Pulse 91; Resp 18; Temp 98.1; Pulse Ox 96% on R/A; Weight 63.5 kg; Height hb 5 ft. 2 in. ; Pain 10/10; 13:30 Body Mass Index 25.61 (63.50 kg, 157.48 cm) hb 13:30 Pain Scale: Adult hb MDM: 13:40 Patient medically screened. snw 13:47 Differential diagnosis: viral Infection, bacterial infection. Data reviewed: vital snw signs, nurses notes. Counseling: I had a detailed discussion with the patient and/or guardian regarding the historical points, exam findings, and any diagnostic results supporting the discharge/admit diagnosis, the presence of at least one elevated blood pressure reading (>120/80) during this emergency department visit, the need for outpatient follow up, for definitive care, to return to the emergency department if symptoms worsen or persist or if there are any questions or concerns that arise at home. Response to treatment: There is no appreciated change of the patient's symptoms at this time. Special discussion: Based on the history and exam findings, there is no indication for further emergent testing or inpatient evaluation. I discussed with the patient/guardian the need to see the primary care provider for further evaluation of the symptoms. 12/17 12:57 Order name: Flu; Complete Time: 13:42 snw 12/17 12:57 Order name: SARS RAPID; Complete Time: 13:42 snw Administered Medications: 14:31 Drug: predniSONE PO 40 mg PO once Route: PO; hb 14:32 Follow up: Response: Medication administered at discharge. hb 14:31 Drug: Famotidine PO 20 mg PO once Route: PO; hb 14:31 Follow up: Response: Medication administered at discharge. hb 14:31 Drug: AZITHromycin PO 500 mg PO once Route: PO; hb 14:31 Follow up: Response: Medication administered at discharge. hb 14:31 Drug: HYDROcodone-acetaminophen PO 5 mg-325 mg 1 tabs PO once Route: PO; hb 14:31 Follow up: Response: Medication administered at discharge. hb Disposition: 16:35 I was immediately available on-site in the Emergency Department for consultation in the ms3 care of the patient. Disposition Summary: 12/17/22 13:40 Discharge Ordered Notes: Location: Home snw Condition: Stable snw Diagnosis - Streptococcal tonsillitis snw - Dehydration snw Followup: snw - With: Emergency Department - When: As needed - Reason: Worsening of condition Followup: snw - With: Private Physician - When: 2 - 3 days - Reason: Recheck today's complaints, Continuance of care, Re-evaluation by your physician Discharge Instructions: - Discharge Summary Sheet snw - Dehydration, Adult snw - Strep Throat, Adult snw - Rehydration, Adult snw Forms: - Work release form snw - Medication Reconciliation Form snw - Thank You Letter snw - Antibiotic Education snw - Prescription Opioid Use snw - Patient Portal Instructions snw - Leadership Thank You Letter snw Prescriptions: - Valtrex 500 mg Oral Tablet - take 1 tablet ORAL route every 12 hours for 3 days; 6 tablet; Refills: 0, snw Product Selection Permitted - Prednisone 20 mg Oral Tablet - take 2 tablets ORAL route once daily for 5 days; 10 tablet; Refills: 0, Product snw Selection Permitted - Pepcid 20 mg Oral Tablet - take 1 tablet ORAL route once daily; 20 tablet; Refills: 0, Product Selection snw Permitted - promethazine 25 mg Oral Tablet - take 1 tablet ORAL route every 6 hours As needed; 20 tablet; Refills: 0, snw Product Selection Permitted - Zithromax 500 mg Oral Tablet - take 1 tablet ORAL route once daily for 5 days; 5 tablet; Refills: 0, Product snw Selection Permitted Signatures: Dispatcher [employer] Nanda Jackson FNP-Barber WEINERP-Sriw Alexandra Bailon, RN RN Kishor Toth, DO ms3
--- NOTE | 2022-12-17 13:41 | ER ---
Nurse's Notes [facility] Name: Efrem Pastor Age: 32 yrs Sex: Female : 1990 Arrival Date: 12/17/2022 Time: 12:52 Bed DX4 Private MD: Diagnosis: Streptococcal tonsillitis;Dehydration Presentation: 12/17 13:30 Chief complaint: Cough, congestion, headache, body aches, and sore throat x 2 weeks, hb worse over the last week. Coronavirus screen: Client presents with at least one sign or symptom that may indicate coronavirus-19. Provider contacted for isolation considerations. Ebola Screen: No symptoms or risks identified at this time. Initial Sepsis Screen: Does the patient meet any 2 criteria? No. Patient's initial sepsis screen is negative. Does the patient have a suspected source of infection? No. Patient's initial sepsis screen is negative. Risk Assessment: Do you want to hurt yourself or someone else? Patient reports no desire to harm self or others. Onset of symptoms was December 03, 2022. 13:30 Method Of Arrival: Ambulatory hb 13:30 Acuity: BELINDA 4 hb Historical: - Allergies: 13:32 Haldol; hb 13:32 Scopolamine HBr; hb - PMHx: 13:32 Irritable bowel syndrome; Gastroparesis; PTSD; hb - PSHx: 13:32 bilateral ureter attachment; leep procedure; Lumpectomy of breast; right breast; hb Cholecystectomy; - Immunization history:: Adult Immunizations up to date. - Social history:: Smoking status: Patient denies any tobacco usage or history of. Vital Signs: 13:30 BP 119 / 81; Pulse 91; Resp 18; Temp 98.1; Pulse Ox 96% on R/A; Weight 63.5 kg; Height hb 5 ft. 2 in. ; Pain 10/10; 13:30 Body Mass Index 25.61 (63.50 kg, 157.48 cm) hb 13:30 Pain Scale: Adult hb ED Course: 12:56 Patient arrived in ED. gm2 12:57 Nanda Arciniega FNP-C is [facility]. snw 12:57 Kishor Nj DO is Attending Physician. snw 13:04 SARS RAPID Sent. bc6 13:04 Flu Sent. bc6 13:32 Triage completed. hb 13:33 Arm band placed on. hb Administered Medications: 14:31 Drug: predniSONE PO 40 mg PO once Route: PO; hb 14:32 Follow up: Response: Medication administered at discharge. hb 14:31 Drug: Famotidine PO 20 mg PO once Route: PO; hb 14:31 Follow up: Response: Medication administered at discharge. hb 14:31 Drug: AZITHromycin PO 500 mg PO once Route: PO; hb 14:31 Follow up: Response: Medication administered at discharge. hb 14:31 Drug: HYDROcodone-acetaminophen PO 5 mg-325 mg 1 tabs PO once Route: PO; hb 14:31 Follow up: Response: Medication administered at discharge. hb Outcome: 13:40 Discharge ordered by MD. snw 14:32 Discharged to home ambulatory, hb 14:32 Condition: stable 14:32 Discharge instructions given to patient, Instructed on discharge instructions, follow up and referral plans. medication usage, Demonstrated understanding of instructions, follow-up care, medications, Prescriptions given X x 5 14:33 Patient left the ED. hb Signatures: Nanda Arciniega FNP-C KERRICK KLEANER OPERATOR-Csnw Alexandra Bailon, RN RN Susan Ha bc6 Vira Munson gm2 Corrections: (The following items were deleted from the chart) 13:33 13:30 BP 119 / 81; Pulse 107bpm; Resp 18bpm; Pulse Ox 96% RA; hb hb
[2022-12-17] MEDS ORDERED: HYDROCODONE/APAP 5/325 MG TAB ONE (14:34)
[2022-12-17] MEDS ORDERED: AZITHROMYCIN 250 MG TAB ONE (14:34)
[2022-12-17] MEDS ORDERED: predniSONE 20 MG TAB ONE (14:34)
[2022-12-17] MEDS ORDERED: FAMOTIDINE 20 MG TAB ONE (14:35)
[2022-12-17 14:38] VITALS: BP 119/81; TEMP 98.1; O2SAT 96
== END 2022-12-17 14:33 | disposition home or self-care (01) ==
LOC: ER 12:52
DX: J02.0 Streptococcal pharyngitis (principal); E86.0 Dehydration; Z88.5 Allergy status to narcotic agent; Z88.8 Allergy status to other drugs, medicaments and biological substances; Z11.52 Encounter for screening for COVID-19
CPT/HCPCS: 36415; 87804 ×2; 99283; 87811; J7512

== ENCOUNTER 2022-12-17 21:24 | Emergency (ER) | payer BC ==
--- OUTSIDE RECORDS SUMMARY | 2022-12-17 21:28 | XMS REPORT | Continuity of Care Document ---
:1990 Author Organization [facility] t Address [address] [facility] [address] [place] [address] Care Team Providers Name Role Phone Ted [...] Clinician haloperi DA Active SV HIVES [facility] dol 5-03 [facility] scopolam DA Active [facility] No Known DA Active U [facility] Allergie 1- [facility] 00:[facility] No Known DA Active U [facility] Allergie -16 [facility] 00[facility] No Known DA Active U [facility] Allerg[facility] 5-16 [facility] scopolam DA Active [place] 2020- [facility] scopolam DA Active [place] RASH-HIVES [facility] 4[facility]10 [facility] 00:00: [...] No Known DA Active U NONE [facility] Drug 9-15 [facility] Intolera 00:00: [facility] Medications This patient has no known medications. Procedures This patient has no known procedures. Encounters Start End Encounter Admission Attending Care Care Encounter Source Date/Time Date/Time Type Type Clinicians Facility Department ID 2020-06-24 Inpatient [facility] [id number] [facility]:53[facility]22 [facility] 2020-05-19 Inpatient [facility] [id number] [facility] 11:42:02 19 [facility] 2019-07-30 Inpatient [facility] ER [id number] [facility] 21:08:00 63 [facility] 2022-06-11 2022-06-11 Emergency EM Schultz, [facility] ER [id number] [facility] 11:10:00 12:41:00 Ted [facility] 2021-02-09 2021-02-10 Emergency EM Peguero, [facility] ER [id number] [facility] 23:10:00 00:19:00 Kaelyn 49 [...] Suprapubic PainURINE SOURCE: CLEAN CATCH URINEUR HCG [id number] 11:54:00 Test Item Value Reference Range Interpretation Comments UR HCG QUAL (test code = HCGQLU) NEGATIVE NEGATIVE Indication for culture: Suprapubic PainURINE SOURCE: CLEAN CATCH URINE COMPREHENSIVE METABOLIC [id number] 11:49:00 Test Item Value Reference Range Interpretation [...] 45-117 N TOTAL (test code = ALKP) [id number] 11:49:00 Test Item Value Reference Range Interpretation Comments AMYLASE (test code = PARAM) 73 IU/L 25-115 N [id number] 11:49:00 Test Item Value Reference Range Interpretation Comments LIPASE (test code = LIP) 134 U/L 73-393 N CBC W/AUTO [id number] 11:33:00 Test Item Value Reference Range Interpretation [...] NO NORMAL code = RBCM) COMPREHENSIVE METABOLIC [id number] 16:11:00 Test Item Value Reference Range Interpretation [...] RESULT BY1.21. [Automated mess age] The system [employer] generated this result transmitted ref erence range: [...] 45-117 H TOTAL (test code = ALKP) [id number] 16:11:00 Test Item Value Reference Range Interpretation Comments LIPASE (test code = LIP) 108 U/L 73-393 N URINALYSIS W REFLEX [id number] 16:05:00 Test Item Value Reference Range Interpretation [...] UA MICRO code = UAMICRO) UR HCG [id number] 16:05:00 Test Item Value Reference Range Interpretation Comments UR HCG QUAL (test code = HCGQLU) NEGATIVE NEGATIVE URINALYSIS W REFLEX [id number] 16:05:00 Test Item Value Reference Range Interpretation [...] DO UA MICRO code = UAMICRO) UA [id number] 16:05:00 Test Item Value Reference Range Interpretation Comments UA WBC (test code = WBCU) 0-2 #/hpf 0-5 UA RBC (test code = RBCU) 0-2 #/hpf 0-5 UA EPITHELIAL CELLS (test code = 2+ /hpf NEG,FEW A EPIU) UA BACTERIA (test code = BACU) FEW /hpf NEGATIVE A UA AMORPHOUS SEDIMENT (test code = FEW /hpf NEG,FEW AMORU) UR HCG [id number] 16:05:00 Test Item Value Reference Range Interpretation Comments UR HCG QUAL (test code = HCGQLU) NEGATIVE NEGATIVE URINALYSIS W REFLEX [id number] 16:05:00 Test Item Value Reference Range Interpretation [...] UA MICRO code = UAMICRO) UR HCG [id number] 16:05:00 Test Item Value Reference Range Interpretation Comments UR HCG QUAL (test code = HCGQLU) NEGATIVE NEGATIVE DRUGS OF ABUSE [id number] 16:01:00 Test Item Value Reference Range Interpretation Comments UR COCAINE (test code NEGATIVE ng/ml NEGATIVE = COCAU) UR CANNABINOIDS (test POSITIVE ng/ml NEGATIVE A DALY UE EXCEEDS code = CANU) CRITICAL LEVEL. CRITICAL VALUE CALLEDTO AND CRITICAL VALUE READ BACK BY HUBER DOWNING RN 1 814 06/24/20. Chas Dixon POSITIVE URINE DRUG SCREEN [...] code = WAS TESTE D AT THE [facility]) LISTED CUTOFFS DRUG CLASS INIT IAL TEST LEVEL AMPHETAMINES 10 00 NG/MLBARBITURAT ES 200 NG/MLBENZODIAZE PIN ES 200 NG/MLCOCAINE METABOLITE 300 NG/MLMARIJUANA METABOLITE 50 NG/MLOPIATES 3 00 NG/MLPHENCYCLID INE 25 NG/ML URINALYSIS W REFLEX [id number] 15:58:00 Test Item Value Reference Range Interpretation [...] NEEDED? (test code = UAMICRO) UR HCG [id number] 15:58:00 Test Item Value Reference Range Interpretation Comments UR HCG QUAL (test code = HCGQLU) NEGATIVE NEGATIVE CBC W/AUTO [id number] 15:52:00 Test Item Value Reference Range Interpretation [...] NORMAL code = RBCM) URINALYSIS W REFLEX [id number] 13:00:00 Test Item Value Reference Range Interpretation [...] MICRO code = UAMICRO) UA ICTOTEST FOR [id number] 13:00:00 Test Item Value Reference Range Interpretation Comments UA ICTOTEST FOR BILIRUBIN (test code POSITIVE NEGATIVE A = ICTOU) UA [id number] 13:00:00 Test Item Value Reference Range Interpretation Comments UA WBC (test code = WBCU) 0-2 #/hpf 0-5 UA RBC (test code = RBCU) 3-5 #/hpf 0-5 UA EPITHELIAL CELLS (test code = FEW /hpf NEG,FEW EPIU) UA BACTERIA (test code = BACU) FEW /hpf NEGATIVE A UA MUCUS (test code = MUCU) 1+ /hpf NEG,FEW A UR HCG [id number] 13:00:00 Test Item Value Reference Range Interpretation Comments UR HCG QUAL (test code = HCGQLU) NEGATIVE NEGATIVE DRUGS OF ABUSE [id number] 12:57:00 Test Item Value Reference Range Interpretation [...] code = WAS TESTE D AT THE [facility] [place]) LISTED CUTOFFS DRUG CLASS INIT IAL TEST LEVEL AMPHETAMINES 10 00 NG/MLBARBITURAT ES 200 NG/MLBENZODIAZE PIN ES 200 NG/MLCOCAINE METABOLITE 300 NG/MLMARIJUANA METABOLITE 50 NG/MLOPIATES 30 0 NG/MLPHENCYCLID INE 25 NG/ML URINALYSIS W REFLEX [id number] 12:56:00 Test Item Value Reference Range Interpretation [...] MICRO code = UAMICRO) UA ICTOTEST FOR [id number] 12:56:00 Test Item Value Reference Range Interpretation Comments UA ICTOTEST FOR BILIRUBIN (test code POSITIVE NEGATIVE A = ICTOU) UR HCG [id number] 12:56:00 Test Item Value Reference Range Interpretation Comments UR HCG QUAL (test code = HCGQLU) NEGATIVE NEGATIVE URINALYSIS W REFLEX [id number] 12:53:00 Test Item Value Reference Range Interpretation [...] UA MICRO code = UAMICRO) UR HCG [id number] 12:53:00 Test Item Value Reference Range Interpretation Comments UR HCG QUAL (test code = HCGQLU) NEGATIVE NEGATIVE URINALYSIS W REFLEX [id number] 12:53:00 Test Item Value Reference Range Interpretation [...] UA MICRO code = UAMICRO) UR HCG [id number] 12:53:00 Test Item Value Reference Range Interpretation Comments UR HCG QUAL (test code = HCGQLU) NEGATIVE NEGATIVE - XR ABDOMEN [id number] 12:16:00 [facility] BRE[facility]NA QUEEN : 1990 Sex: F FAX: Sawyer Centeno II [place]: St: PRE Name: BREANNA QUEEN [place] FSED : 1990 Age/S: 30/F [address] Unit #: [id number] Loc: [place] [address] Phys: Sawyer Centeno II, MD Acct: [id number] Dis Date: Status: PRE ER PHONE #: Exam Date: 05/19/2020 1212 FAX #: Reason: abdominal pain EXAMS: CPT CODE: [id number] XR ABDOMEN 2V 37934 - XR ABDOMEN 2V PROVIDED REASON FOR [...] RT Bekah (R) CT Trnscrd Date/Time/By: 05/19/2020 (0162) : By: [email or web address] Orig Print D/T: S: 05/19/2020 (5407) PAGE 1 Signed ReportBASIC METABOLIC PANEL 2020-05-19 [...] RESULT BY1.21. [Automated mess age] The system [employer] generated this result transmitted ref erence range: >=60. Th e reference range was not used to int erpret this result as normal/abnormal . CREATININE (test code 0.64 mg/dl 0.55-1.02 N = CREAT) CALCIUM (test code = 9.8 mg/dL 8.5-10.1 N CA) LIVER [id number] 12:08:00 Test Item Value Reference Range Interpretation [...] 119 U/L 45-117 H code = ALKP) [id number] 12:08:00 Test Item Value Reference Range Interpretation Comments LIPASE (test code = LIP) 67 U/L 73-393 L CBC W/AUTO [id number] 11:43:00 Test Item Value Reference Range Interpretation [...] NORMAL code = RBCM) URINALYSIS W REFLEX [id number] 22:06:00 Test Item Value Reference Range Interpretation [...] MUCU) 2+ /hpf NEG,FEW A BASIC METABOLIC [id number] 21:54:00 Test Item Value Reference Range Interpretation [...] = 9.3 mg/dL 8.5-10.1 N CA) LIVER [id number] 21:54:00 Test Item Value Reference Range Interpretation [...] 69 U/L 50-136 N code = ALKP) [id number] 21:54:00 Test Item Value Reference Range Interpretation Comments LIPASE (test code = LIP) 63 U/L 73-393 L BASIC METABOLIC [id number] 21:53:00 Test Item Value Reference Range Interpretation [...] = 9.3 mg/dL 8.5-10.1 N CA) LIVER [id number] 21:53:00 Test Item Value Reference Range Interpretation [...] TOTAL (test U/L 50-136 code = ALKP) [id number] 21:53:00 Test Item Value Reference Range Interpretation Comments LIPASE (test code = LIP) 63 U/L 73-393 L BASIC METABOLIC [id number] 21:52:00 Test Item Value Reference Range Interpretation [...] = 9.3 mg/dL 8.5-10.1 N CA) LIVER [id number] 21:52:00 Test Item Value Reference Range Interpretation [...] TOTAL (test U/L 50-136 code = ALKP) [id number] 21:52:00 Test Item Value Reference Range Interpretation Comments LIPASE (test code = LIP) 63 U/L 73-393 L BASIC METABOLIC [id number] 21:51:00 Test Item Value Reference Range Interpretation [...] = 9.3 mg/dL 8.5-10.1 N CA) LIVER [id number] 21:51:00 Test Item Value Reference Range Interpretation [...] TOTAL (test U/L 50-136 code = ALKP) [id number] 21:51:00 Test Item Value Reference Range Interpretation Comments LIPASE (test code = LIP) 63 U/L 73-393 L BASIC METABOLIC [id number] 21:49:00 Test Item Value Reference Range Interpretation [...] = CA) 9.3 mg/dL 8.5-10.1 N LIVER [id number] 21:49:00 Test Item Value Reference Range Interpretation [...] TOTAL (test U/L 50-136 code = ALKP) [id number] 21:49:00 Test Item Value Reference Range Interpretation Comments LIPASE (test code = LIP) 63 U/L 73-393 L BASIC METABOLIC [id number] 21:48:00 Test Item Value Reference Range Interpretation [...] = CA) 9.3 mg/dL 8.5-10.1 N LIVER [id number] 21:48:00 Test Item Value Reference Range Interpretation Comments TOTAL PROTEIN (test code = PROT) g/dl 6.4-8.2 ALBUMIN (test code = ALB) g/dl 3.4-5.0 BILIRUBIN TOTAL (test code = BILT) mg/dl 0.2-1.0 BILIRUBIN DIRECT (test code = BILD) mg/dl 0.0-0.4 SGOT/AST (test code = AST) U/L 15-37 SGPT/ALT (test code = ALT) U/L 12-78 ALKALINE PHOSPHATASE TOTAL (test code U/L 50-136 = ALKP) [id number] 21:48:00 Test Item Value Reference Range Interpretation Comments LIPASE (test code = LIP) U/L 73-393 BASIC METABOLIC [id number] 21:46:00 Test Item Value Reference Range Interpretation [...] (test code = CA) mg/dL 8.5-10.1 LIVER [id number] 21:46:00 Test Item Value Reference Range Interpretation Comments TOTAL PROTEIN (test code = PROT) g/dl 6.4-8.2 ALBUMIN (test code = ALB) g/dl 3.4-5.0 BILIRUBIN TOTAL (test code = BILT) mg/dl 0.2-1.0 BILIRUBIN DIRECT (test code = BILD) mg/dl 0.0-0.4 SGOT/AST (test code = AST) U/L 15-37 SGPT/ALT (test code = ALT) U/L 12-78 ALKALINE PHOSPHATASE TOTAL (test code U/L 50-136 = ALKP) [id number] 21:46:00 Test Item Value Reference Range Interpretation Comments LIPASE (test code = LIP) U/L 73-393 CBC W/AUTO [id number] 21:43:00 Test Item Value Reference Range Interpretation [...]
[2022-12-17] MEDS ORDERED: MORPHINE 4 MG/ML SYR ONE (22:12)
[2022-12-17] MEDS ORDERED: FAMOTIDINE 20 MG/2 ML VIAL IV ONE (22:12)
[2022-12-17] MEDS ORDERED: NA CHLORIDE 0.9% 1,000 ML ONE ×2 (22:13→22:31)
[2022-12-17 22:16] LABS: Absolute Lymphocytes (CBC) 0.8 K/uL (0.7-4.9); Hematocrit 37.1 % (36.0-45.0); Lymphocytes % 11.3 % (15.3-44.8); MCV 82.4 fL (80-100); MPV 10.8 fL (7.6-11.3); Platelets 257 thou/uL (152-406)
[2022-12-17 22:29] LABS: Albumin 2.8 g/dL (3.4-5.0); Bilirubin Total 0.3 mg/dL (0.2-1.0); Potassium 4.2 mEq/L (3.5-5.1); Protein, Total 7.2 g/dL (6.4-8.2)
--- NOTE | 2022-12-17 23:21 | ER ---
Nurse's Notes [facility] Name: Efrem Pastor Age: 32 yrs Sex: Female : 1990 Arrival Date: 12/17/2022 Time: 21:24 Bed 2 Private MD: Diagnosis: Vomiting;Gastroparesis Presentation: 12/17 21:32 Chief complaint: EMS states: 32 year old female reports nausea and vomiting since this ha1 morning. reports history of gastroparesis and believes is having an flare. 4 mg Zofran and 12.5 Phenergan were given on route. Coronavirus screen: Vaccine status:. Ebola Screen: No symptoms or risks identified at this time. Initial Sepsis Screen: Does the patient meet any 2 criteria? No. Patient's initial sepsis screen is negative. Does the patient have a suspected source of infection? No. Patient's initial sepsis screen is negative. Risk Assessment: Do you want to hurt yourself or someone else? Patient reports no desire to harm self or others. Onset of symptoms was December 17, 2022. 21:32 Method Of Arrival: EMS: [facility] ha1 21:32 Acuity: BELINDA 3 ha1 Triage Assessment: 21:30 General: Appears uncomfortable, Behavior is calm, cooperative. Pain: Complains of pain ha1 in abdomen Pain does not radiate. Pain currently is 7 out of 10 on a pain scale. Quality of pain is described as burning, Pain began 1 day ago. Neuro: Level of Consciousness is awake, alert, obeys commands, Oriented to person, place, time, situation. Cardiovascular: Capillary refill < 3 seconds Patient's skin is warm and dry. Respiratory: Airway is patent Respiratory effort is even, unlabored, Respiratory pattern is regular, symmetrical. GI: Abdomen is flat, non-distended, Bowel sounds present X 4 quads. Reports nausea, vomiting. : No signs and/or symptoms were reported regarding the genitourinary system. Derm: Skin is pink, warm \T\ dry. Musculoskeletal: Circulation, motion, and sensation intact. Range of motion: intact in all extremities. Historical: - Allergies: 21:37 Haldol; ha1 21:37 Scopolamine HBr; ha1 - PMHx: 21:37 Gastroparesis; Irritable bowel syndrome; PTSD; ha1 - PSHx: 21:37 bilateral ureter attachment; Cholecystectomy; leep procedure; Lumpectomy of breast; ha1 right breast; - Immunization history:: Adult Immunizations up to date. - Social history:: Smoking status: Reported history of juuling and/or vaping. Screenin:28 [facility] ED Fall Risk Assessment (Adult) History of falling in the last 3 months, ha1 including since admission No falls in past 3 months (0 pts) Confusion or Disorientation No (0 pts) Intoxicated or Sedated No (0 pts) Impaired Gait No (0 pts) Mobility Assist Device Used No (0 pt) Altered Elimination No (0 pt) Score/Fall Risk Level 0 - 2 = Low Risk Oriented to surroundings, Maintained a safe environment, Educated pt \T\ family on fall prevention, incl call for assistance when getting out of bed, Hourly rounding (assess needs \T\ fall precautionary measures) done. Abuse screen: Denies threats or abuse. Denies injuries from another. Nutritional screening: No deficits noted. Tuberculosis screening: No symptoms or risk factors identified. Assessment: 21:28 General: see triage assessment . ha1 22:25 Reassessment: Patient and/or family updated on plan of care and expected duration. Pain ha1 level reassessed. Patient is alert, oriented x 3, equal unlabored respirations, skin warm/dry/pink. 23:00 Reassessment: Patient and/or family updated on plan of care and expected duration. Pain ha1 level reassessed. Patient is alert, oriented x 3, equal unlabored respirations, skin warm/dry/pink. reports nausea notified Dr. Juarez. Vital Signs: 21:32 BP 117 / 99; Pulse 75; Resp 18 S; Temp 98.1; Pulse Ox 99% on R/A; Weight 63.5 kg; ha1 Height 5 ft. 2 in. ; 22:30 BP 136 / 96; Pulse 76; Resp 17 S; Pulse Ox 99% on R/A; ha1 23:00 BP 138 / 95; Pulse 78; Resp 18 S; Pulse Ox 99% on R/A; ha1 21:32 Body Mass Index 25.61 (63.50 kg, 157.48 cm) 1 ED Course: 12/16 21:28 Maintain EMS IV. Dressing intact. Good blood return noted. Site clean \T\ dry. Gauge \T\ hall 1 site: [facility] . [facility] 21:28 Patient arrived in ED. rv1 21:28 Patient has correct armband on for positive identification. Placed in gown. Bed in low ha1 position. Call light in reach. Side rails up X 1. 21:28 Arm band placed on right wrist. ha1 21:37 Triage completed. ha1 21:42 Billy Juarez MD is Attending Physician. stewart 22:39 Abdomen with Erect XRAY In Process Unspecified. EDMS 23:20 Ashley Flores MD is Referral Physician. stewart 23:45 Linda Block RN is Primary Nurse. ha1 23:50 No provider procedures requiring assistance completed. ha1 23:53 Provided Education on: medication administration and following up with electronic scale subassembler . ha1 23:53 IV discontinued, intact, bleeding controlled, No redness/swelling at site. Pressure ha1 dressing applied. Administered Medications: 22:06 Drug: NS 0.9% IV 1000 ml IV at 1 bolus Per protocol; 1000 mL bolus Route: IV; Rate: 1 ha1 bolus; Site: right antecubital; 23:47 Follow up: Response: No adverse reaction; IV Status: Completed infusion; IV Intake: ha1 1000ml 22:06 Drug: Famotidine IVP 20 mg IVP once; dilute with 10 mL 0.9% NaCl; give over 2 minutes ha1 Route: IVP; Site: right antecubital; 23:00 Follow up: Response: No adverse reaction ha1 22:06 Drug: morphine IVP or IV 4 mg IVP once over 4 mins Route: IVP; Infused Over: 4 mins; ha1 Site: right antecubital; 22:30 Follow up: Response: No adverse reaction; Pain is decreased; RASS: Alert and Calm (0) ha1 22:35 Drug: NS 0.9% IV 1000 ml IV at 1 bolus Per protocol; 1000 mL bolus Route: IV; Rate: 1 ha1 bolus; Site: right antecubital; 23:46 Follow up: Response: No adverse reaction; IV Status: Completed infusion; IV Intake: ha1 1000ml 23:35 Drug: Ondansetron IVP 4 mg IVP once; over 2 minutes Route: IVP; Site: right antecubital;ha1 23:46 Follow up: Response: No adverse reaction; Nausea is decreased ha1 23:35 Drug: Promethazine IM 25 mg IM once Route: IM; Site: right ventrogluteal; ha1 23:46 Follow up: Response: No adverse reaction ha1 Medication: 21:40 VIS not applicable for this client. ha1 Intake: 23:46 IV: 1000ml; Total: 1000ml. ha1 23:47 IV: 1000ml; Total: 2000ml. ha1 Outcome: 23:20 Discharge ordered by . stewart 23:52 Discharged to home ambulatory, ha1 23:52 Condition: stable 23:52 Discharge instructions given to patient, Instructed on discharge instructions, follow up and referral plans. medication usage, Demonstrated understanding of instructions, follow-up care, medications, Prescriptions given X 4, 23:54 Patient left the ED. ha1 Signatures: Dispatcher [employer] EDBilly Schmid MD MD cha Ayala, Heidy, RN RN ha1 [employer] rv1 Corrections: (The following items were deleted from the chart) 23:52 21:32 Chief complaint: EMS states: 32 year old female reports nausea and vomiting since ha1 this morning. reports history of gastroparesis and believes is having an flare. ha1
--- NOTE | 2022-12-17 23:21 | EDPHYS ---
Physician Documentation [facility] Name: Efrem Pastor Age: 32 yrs Sex: Female : 1990 Arrival Date: 12/17/2022 Time: 21:24 Bed 2 Private MD: MICHAEL Physician Billy Juarez HPI: 12/17 21:52 This 32 yrs old Female presents to ER via EMS with complaints of abd pain, stewart vomiting, 2nd visit today. 21:52 The patient presents with abdominal pain in the epigastric area, in the upper abdomen. stewart Historical: - Allergies: 21:37 Haldol; ha1 21:37 Scopolamine HBr; ha1 - PMHx: 21:37 Gastroparesis; Irritable bowel syndrome; PTSD; ha1 - PSHx: 21:37 bilateral ureter attachment; Cholecystectomy; leep procedure; Lumpectomy of breast; ha1 right breast; - Immunization history:: Adult Immunizations up to date. - Social history:: Smoking status: Reported history of juuling and/or vaping. ROS: 21:53 Constitutional: Negative for fever, chills, and weight loss, Eyes: Negative for injury, stewart pain, redness, and discharge, ENT: Negative for injury, pain, and discharge, Neck: Negative for injury, pain, and swelling, Cardiovascular: Negative for chest pain, palpitations, and edema, Respiratory: Negative for shortness of breath, cough, wheezing, and pleuritic chest pain, Back: Negative for injury and pain, : Negative for injury, bleeding, discharge, and swelling, MS/Extremity: Negative for injury and deformity, Skin: Negative for injury, rash, and discoloration, Neuro: Negative for headache, weakness, numbness, tingling, and seizure, Psych: Negative for depression, anxiety, suicide ideation, homicidal ideation, and hallucinations, Allergy/Immunology: Negative for hives, rash, and allergies, Endocrine: Negative for neck swelling, polydipsia, polyuria, polyphagia, and marked weight changes, Hematologic/Lymphatic: Negative for swollen nodes, abnormal bleeding, and unusual bruising, 21:53 Abdomen/GI: Positive for abdominal pain, nausea and vomiting, of the epigastric area, right upper quadrant and left upper quadrant, Exam: 21:53 Constitutional: This is a well developed, well nourished patient who is awake, alert, stewart and in no acute distress. Head/Face: Normocephalic, atraumatic. Eyes: Pupils equal round and reactive to light, extra-ocular motions intact. Lids and lashes normal. Conjunctiva and sclera are non-icteric and not injected. Cornea within normal limits. Periorbital areas with no swelling, redness, or edema. ENT: Nares patent. No nasal discharge, no septal abnormalities noted. Tympanic membranes are normal and external auditory canals are clear. Oropharynx with no redness, swelling, or masses, exudates, or evidence of obstruction, uvula midline. Mucous membranes moist. Neck: Trachea midline, no thyromegaly or masses palpated, and no cervical lymphadenopathy. Supple, full range of motion without nuchal rigidity, or vertebral point tenderness. No Meningismus. Chest/axilla: Normal chest wall appearance and motion. Nontender with no deformity. No lesions are appreciated. Cardiovascular: Regular rate and rhythm with a normal S1 and S2. No gallops, murmurs, or rubs. Normal PMI, no JVD. No pulse deficits. Respiratory: Lungs have equal breath sounds bilaterally, clear to auscultation and percussion. No rales, rhonchi or wheezes noted. No increased work of breathing, no retractions or nasal flaring. Back: No spinal tenderness. No costovertebral tenderness. Full range of motion. Skin: Warm, dry with normal turgor. Normal color with no rashes, no lesions, and no evidence of cellulitis. MS/ Extremity: Pulses equal, no cyanosis. Neurovascular intact. Full, normal range of motion. Neuro: Awake and alert, GCS 15, oriented to person, place, time, and situation. Cranial nerves II-XII grossly intact. Motor strength 5/5 in all extremities. Sensory grossly intact. Cerebellar exam normal. Normal gait. Psych: Awake, alert, with orientation to person, place and time. Behavior, mood, and affect are within normal limits. 21:53 Abdomen/GI: Inspection: abdomen appears normal, Bowel sounds: normal, in all quadrants, Palpation: abdomen is soft and non-tender, Liver: no appreciated palpable abnormalities, Hernia: not appreciated, Vital Signs: 21:32 BP 117 / 99; Pulse 75; Resp 18 S; Temp 98.1; Pulse Ox 99% on R/A; Weight 63.5 kg; ha1 Height 5 ft. 2 in. ; 22:30 BP 136 / 96; Pulse 76; Resp 17 S; Pulse Ox 99% on R/A; ha1 23:00 BP 138 / 95; Pulse 78; Resp 18 S; Pulse Ox 99% on R/A; ha1 21:32 Body Mass Index 25.61 (63.50 kg, 157.48 cm) 1 MDM: 21:42 Patient medically screened. stewart 21:55 Differential diagnosis: Nonspecific abd pain, pancreatitis, appendicitis, viral stewart gastroenteritis, gastroenteritis, bowel obstruction, diverticulitis, gastritis, non-specific abd pain, Perf. Duodenal Ulcer, Peritonitis, urinary tract infection. Data reviewed: vital signs, nurses notes, lab test result(s), radiologic studies, CT scan. Consideration of Admission/Observation Escalation of care including admission/observation considered. I considered the following discharge prescriptions or medication management in the emergency department Medications were administered in the Emergency Department. See MAR. Independent interpretation of the following test(s) in the Emergency Department X-Ray: My interpretation is flat and upright. Test considered but Not performed: CT: ct reviewd. Historians other than the Patient: EMS: ems well informed. Care significantly affected by the following chronic conditions: gastroparesis. Counseling: I had a detailed discussion with the patient and/or guardian regarding the historical points, exam findings, and any diagnostic results supporting the discharge/admit diagnosis, lab results, radiology results, the need for outpatient follow up, for definitive care, a family practitioner, a scallop shucker. 12/17 21:46 Order name: CBC with Diff [facility] [place] 12/17 21:46 Order name: CMP; Complete Time: 23:19 [facility] [place] 12/17 21:46 Order name: Lipase; Complete Time: 23:19 [facility] [place] 12/17 22:24 Order name: Manual Differential EDMS 12/17 22:03 Order name: Abdomen with Erect XRAY [facility] [place] 12/17 21:46 Order name: IV Saline Lock; Complete Time: 21:47 [facility] [place] 12/17 21:46 Order name: Labs collected and sent; Complete Time: 21:54 stewart Administered Medications: 22:06 Drug: NS 0.9% IV 1000 ml IV at 1 bolus Per protocol; 1000 mL bolus Route: IV; Rate: 1 ha1 bolus; Site: right antecubital; 23:47 Follow up: Response: No adverse reaction; IV Status: Completed infusion; IV Intake: ha1 1000ml 22:06 Drug: Famotidine IVP 20 mg IVP once; dilute with 10 mL 0.9% NaCl; give over 2 minutes ha1 Route: IVP; Site: right antecubital; 23:00 Follow up: Response: No adverse reaction ha1 22:06 Drug: morphine IVP or IV 4 mg IVP once over 4 mins Route: IVP; Infused Over: 4 mins; ha1 Site: right antecubital; 22:30 Follow up: Response: No adverse reaction; Pain is decreased; RASS: Alert and Calm (0) ha1 22:35 Drug: NS 0.9% IV 1000 ml IV at 1 bolus Per protocol; 1000 mL bolus Route: IV; Rate: 1 ha1 bolus; Site: right antecubital; 23:46 Follow up: Response: No adverse reaction; IV Status: Completed infusion; IV Intake: ha1 1000ml 23:35 Drug: Ondansetron IVP 4 mg IVP once; over 2 minutes Route: IVP; Site: right antecubital;ha1 23:46 Follow up: Response: No adverse reaction; Nausea is decreased ha1 23:35 Drug: Promethazine IM 25 mg IM once Route: IM; Site: right ventrogluteal; ha1 23:46 Follow up: Response: No adverse reaction ha1 Disposition Summary: 12/17/22 23:20 Discharge Ordered Notes: Location: Home stewart Problem: new stewart Symptoms: have improved stewart Condition: Stable stewart Diagnosis - Vomiting stewart - Gastroparesis stewart Followup: stewart - With: Private Physician - When: 2 - 3 days - Reason: Recheck today's complaints, Continuance of care, Re-evaluation by your physician Followup: stewart - With: Ashley Flores MD - When: 2 - 3 days - Reason: Recheck today's complaints, Re-evaluation by your physician Discharge Instructions: - Discharge Summary Sheet stewart - Vomiting, Adult stewart - Gastroparesis stewart Forms: - Medication Reconciliation Form stewart - Thank You Letter stewart - Antibiotic Education stewart - Prescription Opioid Use stewart - Patient Portal Instructions stewart - Leadership Thank You Letter [facility] [place] Prescriptions: - ondansetron 4 mg Oral Tablet,disintegrating - take 1 tablet ORAL route every 6-8 hours as needed for nausea and vomiting; 20 stewart tablet; Refills: 0, Product Selection Permitted - promethazine 25 mg Rectal suppository - insert 1 suppository RECTAL route every 6 to 8 hours may repeat once in 12 stewart hours; 15 suppository; Refills: 0, Product Selection Permitted - Pepcid 20 mg Oral Tablet - take 1 tablet ORAL route every 12 hours for 10 days; 20 tablet; Refills: 0, [facility] [place] Product Selection Permitted - dicyclomine 10 mg/5 mL Oral solution - take 10 milliliters ORAL route 4 times per day; 200 milliliter; Refills: 0, [facility] [place] Product Selection Permitted Signatures: Dispatcher [employer] Billy Mckenzie MD MD cha Ayala, Heidy RN RN ha1
[2022-12-17] MEDS ORDERED: ONDANSETRON 4 MG/2 ML VIAL ONE (23:48)
[2022-12-17] MEDS ORDERED: PROMETHAZINE INJ 25 MG/ML AMP ONE (23:48)
[2022-12-18 00:48] VITALS: BP 138/95; TEMP 98.1; O2SAT 99
[2022-12-18 01:02] LABS: Blood Morphology Comment NOT SEEN (NOT SEEN); Platelet Estimate ADEQ
--- NOTE | 2022-12-18 13:36 | RAD REPORT ---
EXAM DESCRIPTION: RAD - Abdomen W Erect - 12/17/2022 10:37 pm CLINICAL HISTORY: 32 years, Female, ABD PAIN COMPARISON: None FINDINGS: 2 X-ray views of the of the abdomen (supine and erect) were performed. No prior films ar e available this time for comparison. Clips within the gallbladder fossa corresponding to previous ch olecystectomy. The gas pattern is nondiagnostic. No signs of ileus or obstruction. No free air unde r the diaphragm is noted. No abnormal calcifications are seen. The bone windows demonstrate to be unr emarkable. IMPRESSION: Nondiagnostic gas pattern. Status post cholecystectomy. Electronically signed by: Shyam Garnica MD 12/17/2022 11:03 PM BOARDING HOUSE COOK Due to temporary technical issues with the PACS/Fluency reporting system, reports are being signed by the in house radiologist without review as a courtesy to ensure prompt reporting. The interpreting r adiologist is fully responsible for the content of the report.
== END 2022-12-17 23:54 | disposition home or self-care (01) ==
LOC: ER 21:24
DX: K31.84 Gastroparesis (principal); R10.13 Epigastric pain; Z88.5 Allergy status to narcotic agent; Z88.8 Allergy status to other drugs, medicaments and biological substances
CPT/HCPCS: 96361; 85025; 36415; 83690; 80053; 74019; 96375; 96372; 96374; 99284; J2550; J2405; J7030 ×2

== ENCOUNTER 2022-12-18 08:30 | Emergency (ER) | payer BC ==
--- OUTSIDE RECORDS SUMMARY | 2022-12-18 09:04 | XMS REPORT | Continuity of Care Document ---
:1990 Author Organization [facility] t Address [address] [place] [address] Care Team Providers Name Role Phone Ted [...] Clinician haloperi DA Active SV [facility] dol 5-03 [facility] scopolam DA Active [facility] No Known DA Active U [facility] Allergie 1- [facility] 00:[facility] No Known DA Active U [facility] Allergie -16 [facility] s 00:00: Regiona 00 [...] No Known DA Active U NONE [facility] Drug 9-15 [facility] Intolera 00:00: [facility] n[facility] Medications This patient has no known medications. Procedures This patient has no known procedures. Encounters Start End Encounter Admission Attending Care Care Encounter Source Date/Time Date/Time Type Type Clinicians Facility Department ID 2020-06-24 Inpatient [facility] [id number] [facility] 2020-05-19 Inpatient [facility] [id number] [facility] 11:42:02 19 [facility] 2019-07-30 Inpatient [facility] ER [id number] [facility] 21:08:00 63 [facility] 2022-06-11 2022-06-11 Emergency EM Schultz, [facility] ER [id number] [facility] 11:10:00 12:41:00 Ted [facility] 2021-02-09 2021-02-10 Emergency EM Peguero, [facility] ER [id number] [facility] 23:10:00 00:19:00 Kaelyn 49 [...] Suprapubic PainURINE SOURCE: CLEAN CATCH URINEUR HCG [id number] 11:54:00 Test Item Value Reference Range Interpretation Comments UR HCG QUAL (test code = HCGQLU) NEGATIVE NEGATIVE Indication for culture: Suprapubic PainURINE SOURCE: CLEAN CATCH URINE COMPREHENSIVE METABOLIC [id number] 11:49:00 Test Item Value Reference Range Interpretation [...] 45-117 N TOTAL (test code = ALKP) [id number] 11:49:00 Test Item Value Reference Range Interpretation Comments AMYLASE (test code = PARAM) 73 IU/L 25-115 N [id number] 11:49:00 Test Item Value Reference Range Interpretation Comments LIPASE (test code = LIP) 134 U/L 73-393 N CBC W/AUTO [id number] 11:33:00 Test Item Value Reference Range Interpretation [...] NO NORMAL code = RBCM) COMPREHENSIVE METABOLIC [id number] 16:11:00 Test Item Value Reference Range Interpretation [...] RESULT BY1.21. [Automated mess age] The system [employer] generated this result transmitted ref erence range: [...] 45-117 H TOTAL (test code = ALKP) [id number] 16:11:00 Test Item Value Reference Range Interpretation Comments LIPASE (test code = LIP) 108 U/L 73-393 N URINALYSIS W REFLEX [id number] 16:05:00 Test Item Value Reference Range Interpretation [...] UA MICRO code = UAMICRO) UR HCG [id number] 16:05:00 Test Item Value Reference Range Interpretation Comments UR HCG QUAL (test code = HCGQLU) NEGATIVE NEGATIVE URINALYSIS W REFLEX [id number] 16:05:00 Test Item Value Reference Range Interpretation [...] DO UA MICRO code = UAMICRO) UA [id number] 16:05:00 Test Item Value Reference Range Interpretation Comments UA WBC (test code = WBCU) 0-2 #/hpf 0-5 UA RBC (test code = RBCU) 0-2 #/hpf 0-5 UA EPITHELIAL CELLS (test code = 2+ /hpf NEG,FEW A EPIU) UA BACTERIA (test code = BACU) FEW /hpf NEGATIVE A UA AMORPHOUS SEDIMENT (test code = FEW /hpf NEG,FEW AMORU) UR HCG [id number] 16:05:00 Test Item Value Reference Range Interpretation Comments UR HCG QUAL (test code = HCGQLU) NEGATIVE NEGATIVE URINALYSIS W REFLEX [id number] 16:05:00 Test Item Value Reference Range Interpretation [...] UA MICRO code = UAMICRO) UR HCG [id number] 16:05:00 Test Item Value Reference Range Interpretation Comments UR HCG QUAL (test code = HCGQLU) NEGATIVE NEGATIVE DRUGS OF ABUSE [id number] 16:01:00 Test Item Value Reference Range Interpretation Comments UR COCAINE (test code NEGATIVE ng/ml NEGATIVE = COCAU) UR CANNABINOIDS (test POSITIVE ng/ml NEGATIVE A DALY UE EXCEEDS code = CANU) CRITICAL LEVEL. CRITICAL VALUE CALLEDTO AND CRITICAL VALUE READ BACK BY HUBER DOWNING RN 1 904 06/24/20. Chas Dixon POSITIVE URINE DRUG SCREEN [...] code = WAS TESTE D AT THE [facility]) LISTED CUTOFFS DRUG CLASS INIT IAL TEST LEVEL AMPHETAMINES 10 00 NG/MLBARBITURAT ES 200 NG/MLBENZODIAZE PIN ES 200 NG/MLCOCAINE METABOLITE 300 NG/MLMARIJUANA METABOLITE 50 NG/MLOPIATES 3 00 NG/MLPHENCYCLID INE 25 NG/ML URINALYSIS W REFLEX [id number] 15:58:00 Test Item Value Reference Range Interpretation [...] NEEDED? (test code = UAMICRO) UR HCG [id number] 15:58:00 Test Item Value Reference Range Interpretation Comments UR HCG QUAL (test code = HCGQLU) NEGATIVE NEGATIVE CBC W/AUTO [id number] 15:52:00 Test Item Value Reference Range Interpretation [...] NORMAL code = RBCM) URINALYSIS W REFLEX [id number] 13:00:00 Test Item Value Reference Range Interpretation [...] MICRO code = UAMICRO) UA ICTOTEST FOR [id number] 13:00:00 Test Item Value Reference Range Interpretation Comments UA ICTOTEST FOR BILIRUBIN (test code POSITIVE NEGATIVE A = ICTOU) UA [id number] 13:00:00 Test Item Value Reference Range Interpretation Comments UA WBC (test code = WBCU) 0-2 #/hpf 0-5 UA RBC (test code = RBCU) 3-5 #/hpf 0-5 UA EPITHELIAL CELLS (test code = FEW /hpf NEG,FEW EPIU) UA BACTERIA (test code = BACU) FEW /hpf NEGATIVE A UA MUCUS (test code = MUCU) 1+ /hpf NEG,FEW A UR HCG [id number] 13:00:00 Test Item Value Reference Range Interpretation Comments UR HCG QUAL (test code = HCGQLU) NEGATIVE NEGATIVE DRUGS OF ABUSE [id number] 12:57:00 Test Item Value Reference Range Interpretation [...] code = WAS TESTE D AT THE [facility]) LISTED CUTOFFS DRUG CLASS INIT IAL TEST LEVEL AMPHETAMINES 10 00 NG/MLBARBITURAT ES 200 NG/MLBENZODIAZE PIN ES 200 NG/MLCOCAINE METABOLITE 300 NG/MLMARIJUANA METABOLITE 50 NG/MLOPIATES 30 0 NG/MLPHENCYCLID INE 25 NG/ML URINALYSIS W REFLEX [id number] 12:56:00 Test Item Value Reference Range Interpretation [...] MICRO code = UAMICRO) UA ICTOTEST FOR [id number] 12:56:00 Test Item Value Reference Range Interpretation Comments UA ICTOTEST FOR BILIRUBIN (test code POSITIVE NEGATIVE A = ICTOU) UR HCG [id number] 12:56:00 Test Item Value Reference Range Interpretation Comments UR HCG QUAL (test code = HCGQLU) NEGATIVE NEGATIVE URINALYSIS W REFLEX [id number] 12:53:00 Test Item Value Reference Range Interpretation [...] UA MICRO code = UAMICRO) UR HCG [id number] 12:53:00 Test Item Value Reference Range Interpretation Comments UR HCG QUAL (test code = HCGQLU) NEGATIVE NEGATIVE URINALYSIS W REFLEX [id number] 12:53:00 Test Item Value Reference Range Interpretation [...] UA MICRO code = UAMICRO) UR HCG [id number] 12:53:00 Test Item Value Reference Range Interpretation Comments UR HCG QUAL (test code = HCGQLU) NEGATIVE NEGATIVE - XR ABDOMEN [id number] 12:16:00 [facility] 1990 Sex: F FAX: Sawyer Centeno II [place]: St: PRE Name: BREANNA QUEEN [place] FSED : 1990 Age/S: 30/F [address] Unit #: [id number] Loc: [place] [address] Phys: Sawyer Centeno II, MD Acct: [id number] Dis Date: Status: PRE ER PHONE #: Exam Date: 05/19/2020 1212 FAX #: Reason: abdominal pain EXAMS: CPT CODE: [id number] XR ABDOMEN 2V 20364 - XR ABDOMEN 2V PROVIDED REASON FOR [...] RT Bekah (R) CT Trnscrd Date/Time/By: 05/19/2020 (2654) : By: [email or web address] Orig Print D/T: S: 05/19/2020 (2485) PAGE 1 Signed ReportBASIC METABOLIC PANEL 2020-05-19 [...] RESULT BY1.21. [Automated mess age] The system [employer] generated this result transmitted ref erence range: >=60. Th e reference range was not used to int erpret this result as normal/abnormal . CREATININE (test code 0.64 mg/dl 0.55-1.02 N = CREAT) CALCIUM (test code = 9.8 mg/dL 8.5-10.1 N CA) LIVER [id number] 12:08:00 Test Item Value Reference Range Interpretation [...] 119 U/L 45-117 H code = ALKP) [id number] 12:08:00 Test Item Value Reference Range Interpretation Comments LIPASE (test code = LIP) 67 U/L 73-393 L CBC W/AUTO [id number] 11:43:00 Test Item Value Reference Range Interpretation [...] NORMAL code = RBCM) URINALYSIS W REFLEX [id number] 22:06:00 Test Item Value Reference Range Interpretation [...] MUCU) 2+ /hpf NEG,FEW A BASIC METABOLIC [id number] 21:54:00 Test Item Value Reference Range Interpretation [...] = 9.3 mg/dL 8.5-10.1 N CA) LIVER [id number] 21:54:00 Test Item Value Reference Range Interpretation [...] 69 U/L 50-136 N code = ALKP) [id number] 21:54:00 Test Item Value Reference Range Interpretation Comments LIPASE (test code = LIP) 63 U/L 73-393 L BASIC METABOLIC [id number] 21:53:00 Test Item Value Reference Range Interpretation [...] = 9.3 mg/dL 8.5-10.1 N CA) LIVER [id number] 21:53:00 Test Item Value Reference Range Interpretation [...] TOTAL (test U/L 50-136 code = ALKP) [id number] 21:53:00 Test Item Value Reference Range Interpretation Comments LIPASE (test code = LIP) 63 U/L 73-393 L BASIC METABOLIC [id number] 21:52:00 Test Item Value Reference Range Interpretation [...] = 9.3 mg/dL 8.5-10.1 N CA) LIVER [id number] 21:52:00 Test Item Value Reference Range Interpretation [...] TOTAL (test U/L 50-136 code = ALKP) [id number] 21:52:00 Test Item Value Reference Range Interpretation Comments LIPASE (test code = LIP) 63 U/L 73-393 L BASIC METABOLIC [id number] 21:51:00 Test Item Value Reference Range Interpretation [...] = 9.3 mg/dL 8.5-10.1 N CA) LIVER [id number] 21:51:00 Test Item Value Reference Range Interpretation [...] TOTAL (test U/L 50-136 code = ALKP) [id number] 21:51:00 Test Item Value Reference Range Interpretation Comments LIPASE (test code = LIP) 63 U/L 73-393 L BASIC METABOLIC [id number] 21:49:00 Test Item Value Reference Range Interpretation [...] = CA) 9.3 mg/dL 8.5-10.1 N LIVER [id number] 21:49:00 Test Item Value Reference Range Interpretation [...] TOTAL (test U/L 50-136 code = ALKP) [id number] 21:49:00 Test Item Value Reference Range Interpretation Comments LIPASE (test code = LIP) 63 U/L 73-393 L BASIC METABOLIC [id number] 21:48:00 Test Item Value Reference Range Interpretation [...] = CA) 9.3 mg/dL 8.5-10.1 N LIVER [id number] 21:48:00 Test Item Value Reference Range Interpretation Comments TOTAL PROTEIN (test code = PROT) g/dl 6.4-8.2 ALBUMIN (test code = ALB) g/dl 3.4-5.0 BILIRUBIN TOTAL (test code = BILT) mg/dl 0.2-1.0 BILIRUBIN DIRECT (test code = BILD) mg/dl 0.0-0.4 SGOT/AST (test code = AST) U/L 15-37 SGPT/ALT (test code = ALT) U/L 12-78 ALKALINE PHOSPHATASE TOTAL (test code U/L 50-136 = ALKP) [id number] 21:48:00 Test Item Value Reference Range Interpretation Comments LIPASE (test code = LIP) U/L 73-393 BASIC METABOLIC [id number] 21:46:00 Test Item Value Reference Range Interpretation [...] (test code = CA) mg/dL 8.5-10.1 LIVER [id number] 21:46:00 Test Item Value Reference Range Interpretation Comments TOTAL PROTEIN (test code = PROT) g/dl 6.4-8.2 ALBUMIN (test code = ALB) g/dl 3.4-5.0 BILIRUBIN TOTAL (test code = BILT) mg/dl 0.2-1.0 BILIRUBIN DIRECT (test code = BILD) mg/dl 0.0-0.4 SGOT/AST (test code = AST) U/L 15-37 SGPT/ALT (test code = ALT) U/L 12-78 ALKALINE PHOSPHATASE TOTAL (test code U/L 50-136 = ALKP) [id number] 21:46:00 Test Item Value Reference Range Interpretation Comments LIPASE (test code = LIP) U/L 73-393 CBC W/AUTO [id number] 21:43:00 Test Item Value Reference Range Interpretation [...]
--- NOTE | 2022-12-18 09:26 | ER ---
Nurse's Notes [facility] Name: Efrem Pastor Age: 32 yrs Sex: Female : 1990 Arrival Date: 12/18/2022 Time: 08:30 Bed DIS1 Private MD: Kelton Daniels Diagnosis: Gastroparesis Presentation: 12/18 09:09 Chief complaint: Patient states: N/V abdominal pain since yesterday after this ER jl7 administered [place] for tonsil pain. Coronavirus screen: At this time, the client does not indicate any symptoms associated with coronavirus-19. Ebola Screen: No symptoms or risks identified at this time. Initial Sepsis Screen: Does the patient meet any 2 criteria? No. Patient's initial sepsis screen is negative. Does the patient have a suspected source of infection? No. Patient's initial sepsis screen is negative. Risk Assessment: Do you want to hurt yourself or someone else? Patient reports no desire to harm self or others. Onset of symptoms was December 17, 2022. 09:09 Method Of Arrival: Ambulatory [facility] 09:09 Acuity: BELINDA 3 jl7 Triage Assessment: 09:10 General: Appears in no apparent distress. uncomfortable, unkempt, Behavior is jl7 cooperative, anxious. Pain: Complains of pain in abdomen Pain currently is 10 out of 10 on a pain scale. GI: Reports nausea, vomiting. 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 - Social history:: Smoking status: Reported history of juuling and/or vaping. Assessment: 09:05 Reassessment: Dr. Catalino garcia pt prior to triage. [facility] Vital Signs: 09:09 BP 158 / 113; Pulse 84; Resp 17; Temp 98.2; Pulse Ox 100% ; Weight 63.5 kg; Height 5 jl7 ft. 2 in. ; Pain 11/18; 09:09 Body Mass Index 25.61 (63.50 kg, 157.48 cm) jl7 09:09 Pain Scale: Adult jl7 ED Course: 08:32 Patient arrived in ED. mr 08:32 Kelton Daniels MD is Private Physician. mr 08:42 Benson Bae MD is Attending Physician. sp3 09:10 Triage completed. jl7 09:10 Arm band placed on right wrist. jl7 09:31 No provider procedures requiring assistance completed. Patient did not have IV access jl7 during this emergency room visit. Administered Medications: :25 Drug: Ondansetron Oral Disintegrating Tablet Oral Disintegrating Tablet 4 mg PO once jl7 Route: PO; :32 Follow up: Response: Medication administered at discharge. jl7 09:26 Drug: metoCLOPramide IM 10 mg IM once {Note: per pt request.} Route: IM; Site: left jl deltoid; :32 Follow up: Response: Medication administered at discharge. jl7 Outcome: : Discharge ordered by . sp3 09:32 Discharged to home ambulatory, jl7 09:32 Condition: stable :32 Discharge instructions given to patient, Instructed on discharge instructions, follow up and referral plans. medication usage, Demonstrated understanding of instructions, follow-up care, medications, Prescriptions given X , :32 Patient left the ED. jl7 Signatures: Kira Murillo, Reg Reg mr HughesMaxwell, RN RN jl7 Benson Bae MD MD sp3
--- NOTE | 2022-12-18 09:26 | EDPHYS ---
Physician Documentation [facility] Name: Efrem Pastor Age: 32 yrs Sex: Female : 1990 Arrival Date: 12/18/2022 Time: 08:30 Bed DIS1 Private MD: Kelton Daniels ED Physician Benson Bae HPI: 12/18 09:19 This 32 yrs old Female presents to ER via Ambulatory with complaints of Abdominal Pain, sp3 Vomiting. 09:19 32-year-old female with a history of gastroparesis, "acne syndrome", irritable bowel sp3 now presents to the ED for the fifth time this week with vomiting and diffuse abdominal pain type symptoms. Patient has had extensive work-ups in the past during her past ED visits and she has had no admission criteria. Patient symptoms are similar to her past with diffuse abdominal pain and emesis although she has not had any emesis while in the emergency department. She denies headache, chest pain, back pain, decreased urine output, diarrhea, fever, or any other signs or symptoms at this time.. 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 - Social history:: Smoking status: Reported history of juuling and/or vaping. ROS: 09:21 Constitutional: Negative for fever, chills, and weight loss, Eyes: Negative for injury, sp3 pain, redness, and discharge, ENT: Negative for injury, pain, and discharge, Neck: Negative for injury, pain, and swelling, Cardiovascular: Negative for chest pain, palpitations, and edema, Respiratory: Negative for shortness of breath, cough, wheezing, and pleuritic chest pain, Back: Negative for injury and pain, MS/Extremity: Negative for injury and deformity, Skin: Negative for injury, rash, and discoloration, Neuro: Negative for headache, weakness, numbness, tingling, and seizure, Psych: Negative for depression, anxiety, suicide ideation, homicidal ideation, and hallucinations, Allergy/Immunology: Negative for hives, rash, and allergies, Endocrine: Negative for neck swelling, polydipsia, polyuria, polyphagia, and marked weight changes, 09:21 All other systems are negative, Exam: 09:22 Constitutional: This is a well developed, well nourished patient who is awake, alert, sp3 and in no acute distress. Head/Face: Normocephalic, atraumatic. Eyes: Pupils equal round and reactive to light, extra-ocular motions intact. Lids and lashes normal. Conjunctiva and sclera are non-icteric and not injected. Cornea within normal limits. Periorbital areas with no swelling, redness, or edema. ENT: Nares patent. No nasal discharge, no septal abnormalities noted. External auditory canals are clear. Oropharynx with no redness, swelling, or masses, exudates, or evidence of obstruction, uvula midline. Mucous membranes moist. Neck: Trachea midline, no thyromegaly or masses palpated, and no cervical lymphadenopathy. Supple, full range of motion without nuchal rigidity, or vertebral point tenderness. No Meningismus. Chest/axilla: Normal chest wall appearance and motion. Nontender with no deformity. No lesions are appreciated. Cardiovascular: Regular rate and rhythm with a normal S1 and S2. No gallops, murmurs, or rubs. Normal PMI, no JVD. No pulse deficits. Respiratory: Lungs have equal breath sounds bilaterally, clear to auscultation and percussion. No rales, rhonchi or wheezes noted. No increased work of breathing, no retractions or nasal flaring. Back: No spinal tenderness. No costovertebral tenderness. Full range of motion. Skin: Warm, dry with normal turgor. Normal color with no rashes, no lesions, and no evidence of cellulitis. MS/ Extremity: Pulses equal, no cyanosis. Neurovascular intact. Full, normal range of motion. Neuro: Awake and alert, GCS 15, oriented to person, place, time, and situation. Cranial nerves II-XII grossly intact. Motor strength 5/5 in all extremities. Sensory grossly intact. Cerebellar exam normal. Normal gait. Psych: Awake, alert, with orientation to person, place and time. Behavior, mood, and affect are within normal limits. 09:22 Abdomen/GI: Soft abdomen with diffuse pain without peritoneal signs., Vital Signs: 09:09 BP 158 / 113; Pulse 84; Resp 17; Temp 98.2; Pulse Ox 100% ; Weight 63.5 kg; Height 5 jl7 ft. 2 in. ; Pain 10; 09:09 Body Mass Index 25.61 (63.50 kg, 157.48 cm) jl7 09:09 Pain Scale: Adult jl7 MDM: 09:21 Patient medically screened. sp3 09:24 Data reviewed: vital signs, nurses notes, old medical records. 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 Marques who states that he cannot even recall patient despite full description. Patient vague about her other physicians. Her vital signs are normal with mild bump in blood pressure. I am not highly suspicious for dehydration, sepsis, shock, GI bleed, acute abdomen, GI perforation, or any other critical pathology at this time. We will administer Reglan IM and ODT Zofran and safely discharge patient home. I have advised her to follow-up with her primary care physician and/or chronic pain physician if she can recall those team members. She has no further there is no further indication for further work-up or other intervention at this time.. Administered Medications: 09:25 Drug: Ondansetron Oral Disintegrating Tablet Oral Disintegrating Tablet 4 mg PO once jl7 Route: PO; 09:32 Follow up: Response: Medication administered at discharge. jl7 09:26 Drug: metoCLOPramide IM 10 mg IM once {Note: per pt request.} Route: IM; Site: left jl7 deltoid; 09:32 Follow up: Response: Medication administered at discharge. jl7 Disposition Summary: 12/18/22 09:26 Discharge Ordered Notes: Location: Home sp3 Condition: Stable sp3 Diagnosis - Gastroparesis sp3 Followup: sp3 - With: Private Physician - When: Upon discharge from the Emergency Department - Reason: Continuance of care Discharge Instructions: - Discharge Summary Sheet sp3 - Gastroparesis sp3 Forms: - Medication Reconciliation Form sp3 - Thank You Letter sp3 - Antibiotic Education sp3 - Prescription Opioid Use sp3 - Patient Portal Instructions sp3 - Leadership Thank You Letter sp3 Prescriptions: - ondansetron 8 mg Oral Tablet,disintegrating - take 1 tablet ORAL route every 12 hours; 15 tablet; Refills: 0, Product sp3 Selection Permitted Signatures: Maxwell Hughes, RN RN jl7 Benson Bae MD MD sp3
[2022-12-18] MEDS ORDERED: METOCLOPRAMIDE 10 MG/2mL INJ ONE (09:38)
[2022-12-18] MEDS ORDERED: ONDANSETRON 4 MG (ODT) TAB ONE (09:38)
[2022-12-18 09:40] VITALS: BP 158/113; TEMP 98.2; O2SAT 100
== END 2022-12-18 09:32 | disposition home or self-care (01) ==
LOC: ER 08:30
DX: K31.84 Gastroparesis (principal); F43.10 Post-traumatic stress disorder, unspecified; Z88.5 Allergy status to narcotic agent; Z88.8 Allergy status to other drugs, medicaments and biological substances
CPT/HCPCS: 96372; 99284; Q0162; J2765

== ENCOUNTER 2022-12-24 13:30 | Emergency (ER) | payer BC ==
--- OUTSIDE RECORDS SUMMARY | 2022-12-24 13:33 | XMS REPORT | Continuity of Care Document ---
:1990 Author Organization [facility] t Address [address] [place] [address] Care Team Providers Name Role Phone Ted [...] Clinician haloperi DA Active SV HIVES [facility] dol 5-03 [facility] scopolam DA Active [facility] No Known DA Active U [facility] Allergie 1- [facility] 00:[facility] No Known DA Active U [facility] Allergie -16 [facility] 00:[facility] No Known DA Active U [facility] 5-16 [facility] 00:[facility] scopolam DA Active RI 2020- [facility] ine 4-10 [facility] 00:[facility] scopolam DA Active RI RASH-HIVES [facility] ine 4-10 [facility] 00:00[facility] No Known DA Active U [facility] Allergie 6-20 [facility] 00:00: [facility] No Known DA Active U [facility] Allergie 6-20 [facility] 00:00: [facility] No Known DA Active U [facility] Drug 9-15 [facility] Intolera 00:00: [facility]ces 00 [facility] No Known DA Active U NONE [facility] Drug 9-15 [facility] Intolera 00:00: [facility] Medications This patient has no known medications. Procedures This patient has no known procedures. Encounters Start End Encounter Admission Attending Care Care Encounter Source Date/Time Date/Time Type Type Clinicians Facility Department ID 2020-06-24 Inpatient [facility] [id number] [facility] 15:53[facility]22 [facility] 2020-05-19 Inpatient [facility] [id number] [facility] 11:42:02 19 [facility] 2019-07-30 Inpatient HC[facility] ER [id number] [facility] 21:08:00 63 [facility] 2022-06-11 2022-06-11 Emergency EM Schultz, [facility] ER [id number] [facility] 11:10:00 12:41:00 Ted [facility] 2021-02-09 2021-02-10 Emergency EM Peguero, [facility] ER [id number] [facility] 23:10:00 00:19:00 Kaelyn 50 [...] Suprapubic PainURINE SOURCE: CLEAN CATCH URINEUR HCG [id number] 11:54:00 Test Item Value Reference Range Interpretation Comments UR HCG QUAL (test code = HCGQLU) NEGATIVE NEGATIVE Indication for culture: Suprapubic PainURINE SOURCE: CLEAN CATCH URINE COMPREHENSIVE METABOLIC [id number] 11:49:00 Test Item Value Reference Range Interpretation [...] 45-117 N TOTAL (test code = ALKP) [id number] 11:49:00 Test Item Value Reference Range Interpretation Comments AMYLASE (test code = PARAM) 73 IU/L 25-115 N [id number] 11:49:00 Test Item Value Reference Range Interpretation Comments LIPASE (test code = LIP) 134 U/L 73-393 N CBC W/AUTO [id number] 11:33:00 Test Item Value Reference Range Interpretation [...] NO NORMAL code = RBCM) COMPREHENSIVE METABOLIC [id number] 16:11:00 Test Item Value Reference Range Interpretation [...] RESULT BY1.21. [Automated mess age] The system [employer] generated this result transmitted ref erence range: [...] 45-117 H TOTAL (test code = ALKP) [id number] 16:11:00 Test Item Value Reference Range Interpretation Comments LIPASE (test code = LIP) 108 U/L 73-393 N URINALYSIS W REFLEX [id number] 16:05:00 Test Item Value Reference Range Interpretation [...] UA MICRO code = UAMICRO) UR HCG [id number] 16:05:00 Test Item Value Reference Range Interpretation Comments UR HCG QUAL (test code = HCGQLU) NEGATIVE NEGATIVE URINALYSIS W REFLEX [id number] 16:05:00 Test Item Value Reference Range Interpretation [...] DO UA MICRO code = UAMICRO) UA [id number] 16:05:00 Test Item Value Reference Range Interpretation Comments UA WBC (test code = WBCU) 0-2 #/hpf 0-5 UA RBC (test code = RBCU) 0-2 #/hpf 0-5 UA EPITHELIAL CELLS (test code = 2+ /hpf NEG,FEW A EPIU) UA BACTERIA (test code = BACU) FEW /hpf NEGATIVE A UA AMORPHOUS SEDIMENT (test code = FEW /hpf NEG,FEW AMORU) UR HCG [id number] 16:05:00 Test Item Value Reference Range Interpretation Comments UR HCG QUAL (test code = HCGQLU) NEGATIVE NEGATIVE URINALYSIS W REFLEX [id number] 16:05:00 Test Item Value Reference Range Interpretation [...] UA MICRO code = UAMICRO) UR HCG [id number] 16:05:00 Test Item Value Reference Range Interpretation Comments UR HCG QUAL (test code = HCGQLU) NEGATIVE NEGATIVE DRUGS OF ABUSE [id number] 16:01:00 Test Item Value Reference Range Interpretation Comments UR COCAINE (test code NEGATIVE ng/ml NEGATIVE = COCAU) UR CANNABINOIDS (test POSITIVE ng/ml NEGATIVE A DALY UE EXCEEDS code = CANU) CRITICAL LEVEL. CRITICAL VALUE CALLEDTO AND CRITICAL VALUE READ BACK BY HUBER DOWNING RN 1 745 06/24/20. Chas Dixon POSITIVE URINE DRUG SCREEN [...] = [facility] LISTED CUTOFFS DRUG CLASS INIT IAL TEST LEVEL AMPHETAMINES 10 00 NG/MLBARBITURAT ES 200 NG/MLBENZODIAZE PIN ES 200 NG/MLCOCAINE METABOLITE 300 NG/MLMARIJUANA METABOLITE 50 NG/MLOPIATES 3 00 NG/MLPHENCYCLID INE 25 NG/ML URINALYSIS W REFLEX [id number] 15:58:00 Test Item Value Reference Range Interpretation [...] NEEDED? (test code = UAMICRO) UR HCG [id number] 15:58:00 Test Item Value Reference Range Interpretation Comments UR HCG QUAL (test code = HCGQLU) NEGATIVE NEGATIVE CBC W/AUTO [id number] 15:52:00 Test Item Value Reference Range Interpretation [...] NORMAL code = RBCM) URINALYSIS W REFLEX [id number] 13:00:00 Test Item Value Reference Range Interpretation [...] MICRO code = UAMICRO) UA ICTOTEST FOR [id number] 13:00:00 Test Item Value Reference Range Interpretation Comments UA ICTOTEST FOR BILIRUBIN (test code POSITIVE NEGATIVE A = ICTOU) UA [id number] 13:00:00 Test Item Value Reference Range Interpretation Comments UA WBC (test code = WBCU) 0-2 #/hpf 0-5 UA RBC (test code = RBCU) 3-5 #/hpf 0-5 UA EPITHELIAL CELLS (test code = FEW /hpf NEG,FEW EPIU) UA BACTERIA (test code = BACU) FEW /hpf NEGATIVE A UA MUCUS (test code = MUCU) 1+ /hpf NEG,FEW A UR HCG [id number] 13:00:00 Test Item Value Reference Range Interpretation Comments UR HCG QUAL (test code = HCGQLU) NEGATIVE NEGATIVE DRUGS OF ABUSE [id number] 12:57:00 Test Item Value Reference Range Interpretation [...] = WAS TESTE D AT THE [facility]) LISTED CUTOFFS DRUG CLASS INIT IAL TEST LEVEL AMPHETAMINES 10 00 NG/MLBARBITURAT ES 200 NG/MLBENZODIAZE PIN ES 200 NG/MLCOCAINE METABOLITE 300 NG/MLMARIJUANA METABOLITE 50 NG/MLOPIATES 30 0 NG/MLPHENCYCLID INE 25 NG/ML URINALYSIS W REFLEX [id number] 12:56:00 Test Item Value Reference Range Interpretation [...] MICRO code = UAMICRO) UA ICTOTEST FOR [id number] 12:56:00 Test Item Value Reference Range Interpretation Comments UA ICTOTEST FOR BILIRUBIN (test code POSITIVE NEGATIVE A = ICTOU) UR HCG [id number] 12:56:00 Test Item Value Reference Range Interpretation Comments UR HCG QUAL (test code = HCGQLU) NEGATIVE NEGATIVE URINALYSIS W REFLEX [id number] 12:53:00 Test Item Value Reference Range Interpretation [...] UA MICRO code = UAMICRO) UR HCG [id number] 12:53:00 Test Item Value Reference Range Interpretation Comments UR HCG QUAL (test code = HCGQLU) NEGATIVE NEGATIVE URINALYSIS W REFLEX [id number] 12:53:00 Test Item Value Reference Range Interpretation [...] UA MICRO code = UAMICRO) UR HCG [id number] 12:53:00 Test Item Value Reference Range Interpretation Comments UR HCG QUAL (test code = HCGQLU) NEGATIVE NEGATIVE - XR ABDOMEN [id number] 12:16:00 [facility] 1990 Sex: F FAX: Sawyer Centeno II [place]: St: PRE Name: BREANNA QUEEN [place] FSED : 1990 Age/S: 30/F [address] Unit #: [id number] Loc: [place] [address] Phys: Sawyer Centeno II, MD Acct: [id number] Dis Date: Status: PRE ER PHONE #: Exam Date: 05/19/2020 1212 FAX #: Reason: abdominal pain EXAMS: CPT CODE: [id number] XR ABDOMEN 2V 56347 - XR ABDOMEN 2V PROVIDED REASON FOR [...] RT Bekah (R) CT Trnscrd Date/Time/By: 05/19/2020 (5547) : By: [email or web address] Orig Print D/T: S: 05/19/2020 (1937) PAGE 1 Signed ReportBASIC METABOLIC PANEL 2020-05-19 [...] RESULT BY1.21. [Automated mess age] The system [employer] generated this result transmitted ref erence range: >=60. Th e reference range was not used to int erpret this result as normal/abnormal . CREATININE (test code 0.64 mg/dl 0.55-1.02 N = CREAT) CALCIUM (test code = 9.8 mg/dL 8.5-10.1 N CA) LIVER [id number] 12:08:00 Test Item Value Reference Range Interpretation [...] 119 U/L 45-117 H code = ALKP) [id number] 12:08:00 Test Item Value Reference Range Interpretation Comments LIPASE (test code = LIP) 67 U/L 73-393 L CBC W/AUTO [id number] 11:43:00 Test Item Value Reference Range Interpretation [...] NORMAL code = RBCM) URINALYSIS W REFLEX [id number] 22:06:00 Test Item Value Reference Range Interpretation [...] MUCU) 2+ /hpf NEG,FEW A BASIC METABOLIC [id number] 21:54:00 Test Item Value Reference Range Interpretation [...] = 9.3 mg/dL 8.5-10.1 N CA) LIVER [id number] 21:54:00 Test Item Value Reference Range Interpretation [...] 69 U/L 50-136 N code = ALKP) [id number] 21:54:00 Test Item Value Reference Range Interpretation Comments LIPASE (test code = LIP) 63 U/L 73-393 L BASIC METABOLIC [id number] 21:53:00 Test Item Value Reference Range Interpretation [...] = 9.3 mg/dL 8.5-10.1 N CA) LIVER [id number] 21:53:00 Test Item Value Reference Range Interpretation [...] TOTAL (test U/L 50-136 code = ALKP) [id number] 21:53:00 Test Item Value Reference Range Interpretation Comments LIPASE (test code = LIP) 63 U/L 73-393 L BASIC METABOLIC [id number] 21:52:00 Test Item Value Reference Range Interpretation [...] = 9.3 mg/dL 8.5-10.1 N CA) LIVER [id number] 21:52:00 Test Item Value Reference Range Interpretation [...] TOTAL (test U/L 50-136 code = ALKP) [id number] 21:52:00 Test Item Value Reference Range Interpretation Comments LIPASE (test code = LIP) 63 U/L 73-393 L BASIC METABOLIC [id number] 21:51:00 Test Item Value Reference Range Interpretation [...] = 9.3 mg/dL 8.5-10.1 N CA) LIVER [id number] 21:51:00 Test Item Value Reference Range Interpretation [...] TOTAL (test U/L 50-136 code = ALKP) [id number] 21:51:00 Test Item Value Reference Range Interpretation Comments LIPASE (test code = LIP) 63 U/L 73-393 L BASIC METABOLIC [id number] 21:49:00 Test Item Value Reference Range Interpretation [...] = CA) 9.3 mg/dL 8.5-10.1 N LIVER [id number] 21:49:00 Test Item Value Reference Range Interpretation [...] TOTAL (test U/L 50-136 code = ALKP) [id number] 21:49:00 Test Item Value Reference Range Interpretation Comments LIPASE (test code = LIP) 63 U/L 73-393 L BASIC METABOLIC [id number] 21:48:00 Test Item Value Reference Range Interpretation [...] = CA) 9.3 mg/dL 8.5-10.1 N LIVER [id number] 21:48:00 Test Item Value Reference Range Interpretation Comments TOTAL PROTEIN (test code = PROT) g/dl 6.4-8.2 ALBUMIN (test code = ALB) g/dl 3.4-5.0 BILIRUBIN TOTAL (test code = BILT) mg/dl 0.2-1.0 BILIRUBIN DIRECT (test code = BILD) mg/dl 0.0-0.4 SGOT/AST (test code = AST) U/L 15-37 SGPT/ALT (test code = ALT) U/L 12-78 ALKALINE PHOSPHATASE TOTAL (test code U/L 50-136 = ALKP) [id number] 21:48:00 Test Item Value Reference Range Interpretation Comments LIPASE (test code = LIP) U/L 73-393 BASIC METABOLIC [id number] 21:46:00 Test Item Value Reference Range Interpretation [...] (test code = CA) mg/dL 8.5-10.1 LIVER [id number] 21:46:00 Test Item Value Reference Range Interpretation Comments TOTAL PROTEIN (test code = PROT) g/dl 6.4-8.2 ALBUMIN (test code = ALB) g/dl 3.4-5.0 BILIRUBIN TOTAL (test code = BILT) mg/dl 0.2-1.0 BILIRUBIN DIRECT (test code = BILD) mg/dl 0.0-0.4 SGOT/AST (test code = AST) U/L 15-37 SGPT/ALT (test code = ALT) U/L 12-78 ALKALINE PHOSPHATASE TOTAL (test code U/L 50-136 = ALKP) [id number] 21:46:00 Test Item Value Reference Range Interpretation Comments LIPASE (test code = LIP) U/L 73-393 CBC W/AUTO [id number] 21:43:00 Test Item Value Reference Range Interpretation [...]
--- NOTE | 2022-12-24 13:47 | EDPHYS ---
Physician Documentation [facility] Name: Efrem Pastor Age: 32 yrs Sex: Female : 1990 Arrival Date: 12/24/2022 Time: 13:30 Bed 9 Private MD: ED Physician Alcides Solomon HPI: 12/24 13:44 This 32 yrs old Female presents to ER via EMS with complaints of sore throat. ec2 13:44 Patient arrives today for evaluation of sore throat. Patient reports that she has been ec2 experiencing symptoms for the past 3 weeks. States that she has been treated with multiple rounds of azithromycin, states that she is having throat pain. States that she is having pain with swallowing. Patient reports cough and cold symptoms as well.. Historical: - Allergies: 13:33 Haldol; mb9 13:33 Scopolamine HBr; mb9 - Home Meds: 13:33 Reglan Oral [Active]; Protonix Oral [Active]; Paxil Oral [Active]; Lunesta oral mb9 [Active]; - PMHx: 13:33 Gastroparesis; Irritable bowel syndrome; PTSD; mb9 - PSHx: 13:33 bilateral ureter attachment; Cholecystectomy; leep procedure; Lumpectomy of breast; mb9 right breast; - Immunization history:: Adult Immunizations up to date. - Social history:: Smoking status: Patient denies any tobacco usage or history of. ROS: 13:44 Constitutional: as per hpi ec2 Exam: 13:44 Constitutional: GEN: NAD Head: atraumatic Eyes: EOMI Ears: External ears are ec2 normal. Mouth: Posterior pharyngeal erythema, small ulcer noted to the left tonsillar pillar, no vesicles noted. CV: regular rate LUNGS: no respiratory distress ABD: non-distended SKIN: no evidence of rashes MSK: no evidence of trauma NEURO: moves all extremities equally Vital Signs: 13:38 BP 127 / 86; Pulse 78; Resp 18; Temp 98.2(O); Pulse Ox 100% on R/A; Weight 61.23 kg; mb9 Height 5 ft. 0 in. ; 14:43 BP 135 / 91; Pulse 98; Resp 18; Pulse Ox 100% on R/A; me1 13:38 Body Mass Index 26.37 (61.23 kg, 152.4 cm) mb9 MDM: 13:33 Patient medically screened. ec2 13:44 Data reviewed: vital signs. ED course: Patient arrives today for evaluation of sore ec2 throat. Examination remarkable for HEENT findings as noted above. Will treat the patient with Maalox, Toradol, steroids to help with the oropharyngeal pain. Ultimately will prescribe her viscous lidocaine and have her follow-up with her primary care doctor. Clinically I considered processes such as herpes, [id number]-mouth, strep throat, Donnell angina. Patient is managing secretions well, is nontoxic-appearing with normal vital signs, I do not feel doing lab work or CT imaging will be beneficial in this setting.. 13:47 ED course: Additionally patient with some dryness noted to the oropharynx, was ec2 initially told about whiteness on the tongue however there is some discoloration, no removable plaques, no curdiness is appreciated.. Administered Medications: 14:09 Drug: Alum-Mag Hydroxide-Simeth PO Suspension (200 mg-200 mg-20 mg/5 mL) 30 ml PO once me1 Route: PO; 14:45 Follow up: Response: No adverse reaction me1 14:09 Drug: Ketorolac IM 30 mg IM once Route: IM; Site: left deltoid; me1 14:45 Follow up: Response: No adverse reaction me1 14:09 Drug: Dexamethasone IM 10 mg IM once Route: IM; Site: right deltoid; me1 14:45 Follow up: Response: No adverse reaction me1 Disposition Summary: 12/24/22 13:46 Discharge Ordered Notes: Location: Home ec2 Condition: Stable ec2 Diagnosis - Oropharyngeal Ulcer ec2 Followup: ec2 - With: Private Physician - When: - Reason: Re-evaluation by your physician Discharge Instructions: - Discharge Summary Sheet ec2 - Oral Ulcers ec2 Forms: - Medication Reconciliation Form ec2 - Thank You Letter ec2 - Antibiotic Education ec2 - Prescription Opioid Use ec2 - Patient Portal Instructions ec2 - Leadership Thank You Letter ec2 Signatures: Kira Hodges RN RN mb9 Yasmine Pagan RN RN me1 Alcides Solomon MD MD ec2
--- NOTE | 2022-12-24 13:47 | ER ---
Nurse's Notes [facility] Name: Efrem Pastor Age: 32 yrs Sex: Female : 1990 Arrival Date: 12/24/2022 Time: 13:30 Bed 9 Private MD: Diagnosis: Oropharyngeal Ulcer Presentation: 12/24 13:38 Chief complaint: EMS states: "toned out for sore throat, headache, and fever that mb9 started last night". Coronavirus screen: Vaccine status: Patient reports receiving the 2nd dose of the covid vaccine. Ebola Screen: No symptoms or risks identified at this time. Initial Sepsis Screen: Does the patient meet any 2 criteria? No. Patient's initial sepsis screen is negative. Does the patient have a suspected source of infection? No. Patient's initial sepsis screen is negative. Risk Assessment: Do you want to hurt yourself or someone else? Patient reports no desire to harm self or others. Onset of symptoms was December 24, 2022. 13:38 Method Of Arrival: EMS: [facility] mb9 13:38 Acuity: BELINDA 4 mb9 Triage Assessment: 13:34 General: Appears uncomfortable, Behavior is calm, cooperative. Pain: Complains of pain mb9 in throat. EENT: white noted to lips and tongue. Neuro: Vargas Agitation-Sedation Scale (RASS): 0 - Alert and Calm Level of Consciousness is awake, alert, obeys commands, Oriented to person, place, time, situation, Appropriate for age. Neuro: Reports headache. Cardiovascular: Patient's skin is warm and dry. Respiratory: Reports cough that is. GI: No signs and/or symptoms were reported involving the gastrointestinal system. : No signs and/or symptoms were reported regarding the genitourinary system. Derm: Skin is pink, warm \\T\\ dry. Musculoskeletal: Range of motion: intact in all extremities. Historical: - Allergies: 13:33 Haldol; mb9 13:33 Scopolamine HBr; mb9 - Home Meds: 13:33 Reglan Oral [Active]; Protonix Oral [Active]; Paxil Oral [Active]; Lunesta oral mb9 [Active]; - PMHx: 13:33 Gastroparesis; Irritable bowel syndrome; PTSD; mb9 - PSHx: 13:33 bilateral ureter attachment; Cholecystectomy; leep procedure; Lumpectomy of breast; mb9 right breast; - Immunization history:: Adult Immunizations up to date. - Social history:: Smoking status: Patient denies any tobacco usage or history of. Screenin:43 [facility] ED Fall Risk Assessment (Adult) History of falling in the last 3 months, me1 including since admission No falls in past 3 months (0 pts) Confusion or Disorientation No (0 pts) Intoxicated or Sedated No (0 pts) Impaired Gait No (0 pts) Mobility Assist Device Used No (0 pt) Altered Elimination No (0 pt) Score/Fall Risk Level 0 - 2 = Low Risk. Abuse screen: Denies threats or abuse. Nutritional screening: No deficits noted. Tuberculosis screening: No symptoms or risk factors identified. Assessment: 14:43 General: See triage assessment. . me1 Vital Signs: 13:38 BP 127 / 86; Pulse 78; Resp 18; Temp 98.2(O); Pulse Ox 100% on R/A; Weight 61.23 kg; mb9 Height 5 ft. 0 in. ; 14:43 BP 135 / 91; Pulse 98; Resp 18; Pulse Ox 100% on R/A; me1 13:38 Body Mass Index 26.37 (61.23 kg, 152.4 cm) mb9 ED Course: 13:32 Patient arrived in ED. mb9 13:33 Alcides Solomon MD is Attending Physician. ec2 13:33 Arm band placed on. mb9 13:39 Triage completed. mb9 13:43 Yasmine Pagan, BRUCE is Primary Nurse. me1 14:43 Patient has correct armband on for positive identification. Bed in low position. Call mn1 light in reach. Side rails up X 1. Provided Education on: POC. Verbalized understanding.. 14:43 No provider procedures requiring assistance completed. Patient did not have IV access me1 during this emergency room visit. Administered Medications: 14:09 Drug: Alum-Mag Hydroxide-Simeth PO Suspension (200 mg-200 mg-20 mg/5 mL) 30 ml PO once me1 Route: PO; 14:45 Follow up: Response: No adverse reaction me1 14:09 Drug: Ketorolac IM 30 mg IM once Route: IM; Site: left deltoid; me1 14:45 Follow up: Response: No adverse reaction me1 14:09 Drug: Dexamethasone IM 10 mg IM once Route: IM; Site: right deltoid; me1 14:45 Follow up: Response: No adverse reaction me1 Medication: 14:43 VIS not applicable for this client. me1 Outcome: 13:46 Discharge ordered by . ec2 14:43 Discharged to home ambulatory, me1 14:43 Condition: stable 14:43 Discharge instructions given to patient, Instructed on discharge instructions, follow up and referral plans. Demonstrated understanding of instructions, follow-up care, 14:45 Patient left the ED. me1 Signatures: Kira Hodges RN RN mb9 Yasmine Pagan RN RN me1 Alcides Solomon MD MD ec2
[2022-12-24] MEDS ORDERED: MAGNES/ALUMIN/SIMET 30ML UCUP ONE (14:01)
[2022-12-24] MEDS ORDERED: dexAMETHasone 10 MG/ML VIAL ONE (14:01)
[2022-12-24 15:21] VITALS: TEMP 98.2; O2SAT 100
[2022-12-24 15:22] VITALS: BP 135/91
== END 2022-12-24 14:45 | disposition home or self-care (01) ==
LOC: ER 13:30
DX: K12.30 Oral mucositis (ulcerative), unspecified (principal); Z88.5 Allergy status to narcotic agent; Z88.8 Allergy status to other drugs, medicaments and biological substances
CPT/HCPCS: 96372; 99284; J1100

== ENCOUNTER 2022-12-28 04:46 | Emergency (ER) | payer BC ==
--- OUTSIDE RECORDS SUMMARY | 2022-12-28 04:50 | XMS REPORT | Continuity of Care Document ---
:1990 Author Organization [facility] t Address [address] [place] [address] Care Team Providers Name Role Phone Kelton Daniels Jr. Primary Care Physician Marylou Alarcon NP Attending Clinician Ted Schultz Attending Clinician Unavailable Kaelyn Peguero Attending Clinician Unavailable Physician, No Primary or Family Admitting Clinician Unavaila ble Payers Payer Name Policy Type Policy Number Effective Date Expiration Date S ource Problems This patient has no known problems. Allergies, Adverse Reactions, Alerts Allergy Allergy Status Severity Reaction(s) Onset Inactive Treating Comm ents Source Name Type Date Date Clinician Haloperi Propensi Active Other - See 2022-02 Dystonic Univers dol ty to comments 1-17 reactions ity o f adverse 00:00: [place] reaction 00 Medical s Branch Scopolam Propensi Active Other - See 2022-02 Visual U nivers ine ty to comments 17 changes ity of adverse 00:00: [place] reaction 00 Medical s Branch HALOPERI DRUG Active Med Other-Cmnt 2022-02 Univ ers DOL INGREDI 02-25 ity of 00:00: [place] 00 Medical Branch SCOPOLAM DRUG Active Other-Cmnt 2022-02 Univ ers INE INGREDI 02-25 ity of 00:00: [place] 00 Medical Branch haloperi DA Active SV HIVES [facility] dol 5-03 [facility] 00:[facility]: [facility] scopolam DA Active SV HIVES [facility] ine 5-03 [place] 00:00: [facility] 00 [facility]osp[facility] No Known DA Active U [facility] Allergie 1-01 [place] 00:00: [facility] 00 [facility]osp[facility] No Known DA Active U 0 [facility] Allergie 5-16 [facility] 00:00: [facility] 00 [facility]osp[facility] No Known DA Active U [facility] Allergie 5-16 [place] [facility] 00:[facility]: [facility]ospita l scopolam DA Active CT 0 [facility] ine 4-10 [place] 00[facility]00: [facility] 00 [facility]osp[facility] l scopolam DA Active CT RASH-HIVES 0 [facility] ine 4-10 [place] 00:00: [facility] 00 [facility]ospita l No Known DA Active U 0 [facility] Allergie 6-20 [place] s 00:00: Regiona 00 l Hospita l No Known DA Active U 0 [facility] Allergie 6-20 [facility] 00:00: [facility] 00 l [facility]ospita l No Known DA Active U 0 [facility] Drug 9-15 [facility] Intolera 00:00: Regiona nces 00 l Hospita l No Known DA Active U NONE [facility] Drug 9-15 [place] Intolera 00:00: Regiona nces 00 l Hospita l NO KNOWN Drug Active Univers ALLERGIE Class ity of S [facility] Social History Social Habit Start Date Stop Date Quantity Comments Source Sexual orientation [facility] Sex Assigned At [birth year] [facility] [place] [facility]00 Medical Branch Smoking Status Start Date Stop Date Source Tobacco smoking consumption [facility] Medical unknown Branch Medications Ordered Filled Start Stop Current Ordering Indication Dosage Frequency Signature Comments Components Source Medication Medication Date Date Medication? Clinician (SIG) Name Name manjulao 2022-02- No 6mg 6 mg, Univ ers ne sod phos 02-26 Intravenou i ty of PF 02:30: 01:51 s, ONCE, 1 [place] injection 6 00 :00 dose, On Medi julieta mg Fri Branch 12/26/22 at 2030, 1 mL penicillin 2022-02- No 1.210 1.2 Unive rs g 02-26 Million ity of benzathine 01:45: 01:53 [place], [place] (BICILLIN 00 :00 Intramuscu Medi julieta L-A) lar, ONCE, Branch injection 1 dose, On 1.2 Million Fri Units 12/26/22 at 1945, RONNIE
Re ason for Anti-Infec tive: Empiric Therapy for Suspected Infection< br>Empiric Therapy Site: HEENT
D uration of therapy: Once (ED) acetaminoph 2022-02- No 650mg 650 mg, U nivers en 02-26 Oral, ity of (TYLENOL) 01:45: 01:50 ONCE, 1 [place] tablet 650 00 :00 dose, On Medic al mg Fri Branch 12/26/22 at 1945, RONNIE ketorolac 2022-02- No 30mg 30 mg, Unive rs (TORADOL) 02-26 Intramuscu ity of injection 00:45: 00:59 lar, ONCE, [place] 30 mg 00 :00 1 dose, On Medical Fri Branch 12/26/22 at 1845, RONNIE hydrocortis 2022-02- Yes [id number] 15mL Take 15 mL Univers one 1 mg/4 02-25 by mouth ity of mL in 00:00: 05:59 every 6 [place] nystatin 00 :00 (six) Medical suspension- hours as Bran ch diphenhydrA needed for MINE Pain solution (scale suspension 4-6) for up to 3 days. Vital Signs Vital Name Observation Time Observation Value Comments Source Systolic blood 2022-12-27 02:16:00 111 mm[Hg] Univer sity of pressure [facility] Diastolic blood 2022-12-27 02:16:00 82 mm[Hg] Unive rsity of pressure [facility] Heart rate 2022-12-27 02:16:00 93 /min [facility] Body temperature 2022-12-27 02:16:00 37.56 Caitlyn [facility] [place] [facility] 2022-12-27 02:16:00 [facility] /[facility] O[facility] saturation in 2022-12-27 02:16:00 96 /min [facility] Arterial blood by [facility] Pulse oximetry [place] Body height 2022-12-26 23:57:00 157.5 cm [facility] Body weight 2022-12-26 23:57:00 58.968 kg [facility] BMI 2022-12-26 23:57:00 23.78 kg/m2 [facility] Procedures Procedure Date / Time Performed Performing Clinician Sourc e CBC WITH DIFF 2022-12-27 01:49:00 Alex, [facility] RAPID STREP SCREEN 2022-12-27 00:59:00 Alex Marylou [facility] FOR GROUP A Medical Branch NOTICE OF PRIVACY 2022-12-26 23:28:27 Doctor Unassigned, No Univ [facility] PRACTICES Name Medical Branch CONSENT/REFUSAL FOR 2022-12-26 23:27:35 Doctor Unassigned, No [facility] [place] [facility] DIAGNOSIS AND Name Medical Branch TREATMENT Encounters Start End Encounter Admission Attending Care Care Encounter Source Date/Time Date/Time Type Type Clinicians Facility Department ID 2020-06-24 Inpatient [facility] [id number] [facility] 15:53:22 [facility] 2020-05-19 Inpatient [facility] [id number] [facility] 11:42:02 [facility] 2019-07-30 Inpatient [facility] ER [id number] [facility] 21:08:00 63 [facility] 2022-12-26 2022-12-26 Emergency Alex, [facility] [id number] [facility] 17:57:00 20:20:00 Marylou SANTOS [id number] ity yvette [place] [id number] [facility] [id number] [place] [id number] Branch 2022-12-26 2022-12-26 Emergency X ALEX, [facility] ERT [id number] Univers 17:57:00 20:20:00 MARYLOU jaramillo of [facility] 2022-06-11 2022-06-11 Emergency EM Schultz, [facility] ER [id number] [facility] 11:10:00 12:41:00 Ted [facility] [place] [facility] 2021-02-09 2021-02-10 Emergency EM [facility] [id number] [facility] 23:10:00 00:19:00 Kaelyn 49 [place] Region[facility] [...] Suprapubic PainURINE SOURCE: CLEAN CATCH URINEUR HCG [id number] 11:54:00 Test Item Value Reference Range Interpretation Comments UR HCG QUAL (test code = HCGQLU) NEGATIVE NEGATIVE Indication for culture: Suprapubic PainURINE SOURCE: CLEAN CATCH URINE COMPREHENSIVE METABOLIC [id number] 11:49:00 Test Item Value Reference Range Interpretation [...] 45-117 N TOTAL (test code = ALKP) [id number] 11:49:00 Test Item Value Reference Range Interpretation Comments AMYLASE (test code = PARAM) 73 IU/L 25-115 N [id number] 11:49:00 Test Item Value Reference Range Interpretation Comments LIPASE (test code = LIP) 134 U/L 73-393 N CBC W/AUTO [id number] 11:33:00 Test Item Value Reference Range Interpretation [...] NO NORMAL code = RBCM) COMPREHENSIVE METABOLIC [id number] 16:11:00 Test Item Value Reference Range Interpretation [...] RESULT BY1.21. [Automated mess age] The system iAgree generated this result transmitted ref erence range: [...] 45-117 H TOTAL (test code = ALKP) [id number] 16:11:00 Test Item Value Reference Range Interpretation Comments LIPASE (test code = LIP) 108 U/L 73-393 N URINALYSIS W REFLEX [id number] 16:05:00 Test Item Value Reference Range Interpretation [...] UA MICRO code = UAMICRO) UR HCG [id number] 16:05:00 Test Item Value Reference Range Interpretation Comments UR HCG QUAL (test code = HCGQLU) NEGATIVE NEGATIVE URINALYSIS W REFLEX [id number] 16:05:00 Test Item Value Reference Range Interpretation [...] DO UA MICRO code = UAMICRO) UA [id number] 16:05:00 Test Item Value Reference Range Interpretation Comments UA WBC (test code = WBCU) 0-2 #/hpf 0-5 UA RBC (test code = RBCU) 0-2 #/hpf 0-5 UA EPITHELIAL CELLS (test code = 2+ /hpf NEG,FEW A EPIU) UA BACTERIA (test code = BACU) FEW /hpf NEGATIVE A UA AMORPHOUS SEDIMENT (test code = FEW /hpf NEG,FEW AMORU) UR HCG [id number] 16:05:00 Test Item Value Reference Range Interpretation Comments UR HCG QUAL (test code = HCGQLU) NEGATIVE NEGATIVE URINALYSIS W REFLEX [id number] 16:05:00 Test Item Value Reference Range Interpretation [...] UA MICRO code = UAMICRO) UR HCG [id number] 16:05:00 Test Item Value Reference Range Interpretation Comments UR HCG QUAL (test code = HCGQLU) NEGATIVE NEGATIVE DRUGS OF ABUSE [id number] 16:01:00 Test Item Value Reference Range Interpretation [...] code = WAS TESTE D AT THE PHEN) LISTED CUTOFFS DRUG CLASS INIT IAL TEST LEVEL AMPHETAMINES 10 00 NG/MLBARBITURAT ES 200 NG/MLBENZODIAZE PIN ES 200 NG/MLCOCAINE METABOLITE 300 NG/MLMARIJUANA METABOLITE 50 NG/MLOPIATES 30 0 NG/MLPHENCYCLID INE 25 NG/ML URINALYSIS W REFLEX [id number] 15:58:00 Test Item Value Reference Range Interpretation [...] NEEDED? (test code = UAMICRO) UR HCG [id number] 15:58:00 Test Item Value Reference Range Interpretation Comments UR HCG QUAL (test code = HCGQLU) NEGATIVE NEGATIVE CBC W/AUTO [id number] 15:52:00 Test Item Value Reference Range Interpretation [...] NORMAL code = RBCM) URINALYSIS W REFLEX [id number] 13:00:00 Test Item Value Reference Range Interpretation [...] MICRO code = UAMICRO) UA ICTOTEST FOR [id number] 13:00:00 Test Item Value Reference Range Interpretation Comments UA ICTOTEST FOR BILIRUBIN (test code POSITIVE NEGATIVE A = ICTOU) UA [id number] 13:00:00 Test Item Value Reference Range Interpretation Comments UA WBC (test code = WBCU) 0-2 #/hpf 0-5 UA RBC (test code = RBCU) 3-5 #/hpf 0-5 UA EPITHELIAL CELLS (test code = FEW /hpf NEG,FEW EPIU) UA BACTERIA (test code = BACU) FEW /hpf NEGATIVE A UA MUCUS (test code = MUCU) 1+ /hpf NEG,FEW A UR HCG [id number] 13:00:00 Test Item Value Reference Range Interpretation Comments UR HCG QUAL (test code = HCGQLU) NEGATIVE NEGATIVE DRUGS OF ABUSE [id number] 12:57:00 Test Item Value Reference Range Interpretation [...] code = WAS TESTE D AT THE PHEN) LISTED CUTOFFS DRUG CLASS INIT IAL TEST LEVEL AMPHETAMINES 10 00 NG/MLBARBITURAT ES 200 NG/MLBENZODIAZE PIN ES 200 NG/MLCOCAINE METABOLITE 300 NG/MLMARIJUANA METABOLITE 50 NG/MLOPIATES 3 00 NG/MLPHENCYCLID INE 25 NG/ML URINALYSIS W REFLEX [id number] 12:56:00 Test Item Value Reference Range Interpretation [...] MICRO code = UAMICRO) UA ICTOTEST FOR [id number] 12:56:00 Test Item Value Reference Range Interpretation Comments UA ICTOTEST FOR BILIRUBIN (test code POSITIVE NEGATIVE A = ICTOU) UR HCG [id number] 12:56:00 Test Item Value Reference Range Interpretation Comments UR HCG QUAL (test code = HCGQLU) NEGATIVE NEGATIVE URINALYSIS W REFLEX [id number] 12:53:00 Test Item Value Reference Range Interpretation [...] UA MICRO code = UAMICRO) UR HCG [id number] 12:53:00 Test Item Value Reference Range Interpretation Comments UR HCG QUAL (test code = HCGQLU) NEGATIVE NEGATIVE URINALYSIS W REFLEX [id number] 12:53:00 Test Item Value Reference Range Interpretation [...] UA MICRO code = UAMICRO) UR HCG [id number] 12:53:00 Test Item Value Reference Range Interpretation Comments UR HCG QUAL (test code = HCGQLU) NEGATIVE NEGATIVE - XR ABDOMEN [id number] 12:16:00 [facility] 1990 Sex: F FAX: Sawyer Centeno II Lodge: [address]: PRE Name: BREANNA QUEEN FSED : 1990 Age/S: 30/F [address] Unit #: [id number] Loc: [place] [address] Phys: Sawyer Centeno II, MD Acct: [id number] Dis Date: Status: PRE ER PHONE #: Exam Date: 05/19/2020 1212 FAX #: Reason: abdominal pain EXAMS: CPT CODE: [id number] XR ABDOMEN 2V 61206 - XR ABDOMEN 2V PROVIDED REASON FOR EXAM: abdominal pain COMPARISON: None available. FINDINGS: Bowel gas pattern is non-obstructive. No abnormal calcifications or softtissue masses. No acute fracture or subluxation. Regional soft tissues are unremarkable. Surgical clips of the right upper abdomen. Relative paucity of bowel gas. IMPRESSION: No acute process. Location: V20 at 1216 Reported and signed by: DEVANTE CABALLERO M.D. CC: Technologist: RT Bekah (R) CT Trnscrd Date/Time/By: 05/19/2020 ([id number]) : By: [email or web address] Orig Print D/T: S: 05/19/2020 (5816) PAGE 1 Signed ReportBASIC METABOLIC PANEL 2020-05-19 [...] RESULT BY1.21. [Automated mess age] The system iAgree generated this result transmitted ref erence range: >=60. Th e reference range was not used to int erpret this result as normal/abnormal . CREATININE (test code 0.64 mg/dl 0.55-1.02 N = CREAT) CALCIUM (test code = 9.8 mg/dL 8.5-10.1 N CA) LIVER [id number] 12:08:00 Test Item Value Reference Range Interpretation [...] 119 U/L 45-117 H code = ALKP) [id number] 12:08:00 Test Item Value Reference Range Interpretation Comments LIPASE (test code = LIP) 67 U/L 73-393 L CBC W/AUTO [id number] 11:43:00 Test Item Value Reference Range Interpretation [...] NORMAL code = RBCM) URINALYSIS W REFLEX [id number] 22:06:00 Test Item Value Reference Range Interpretation [...] MUCU) 2+ /hpf NEG,FEW A BASIC METABOLIC [id number] 21:54:00 Test Item Value Reference Range Interpretation [...] = 9.3 mg/dL 8.5-10.1 N CA) LIVER [id number] 21:54:00 Test Item Value Reference Range Interpretation [...] 69 U/L 50-136 N code = ALKP) [id number] 21:54:00 Test Item Value Reference Range Interpretation Comments LIPASE (test code = LIP) 63 U/L 73-393 L BASIC METABOLIC [id number] 21:53:00 Test Item Value Reference Range Interpretation [...] = 9.3 mg/dL 8.5-10.1 N CA) LIVER [id number] 21:53:00 Test Item Value Reference Range Interpretation [...] TOTAL (test U/L 50-136 code = ALKP) [id number] 21:53:00 Test Item Value Reference Range Interpretation Comments LIPASE (test code = LIP) 63 U/L 73-393 L BASIC METABOLIC [id number] 21:52:00 Test Item Value Reference Range Interpretation [...] = 9.3 mg/dL 8.5-10.1 N CA) LIVER [id number] 21:52:00 Test Item Value Reference Range Interpretation [...] TOTAL (test U/L 50-136 code = ALKP) [id number] 21:52:00 Test Item Value Reference Range Interpretation Comments LIPASE (test code = LIP) 63 U/L 73-393 L BASIC METABOLIC [id number] 21:51:00 Test Item Value Reference Range Interpretation [...] = 9.3 mg/dL 8.5-10.1 N CA) LIVER [id number] 21:51:00 Test Item Value Reference Range Interpretation [...] TOTAL (test U/L 50-136 code = ALKP) [id number] 21:51:00 Test Item Value Reference Range Interpretation Comments LIPASE (test code = LIP) 63 U/L 73-393 L BASIC METABOLIC [id number] 21:49:00 Test Item Value Reference Range Interpretation [...] = CA) 9.3 mg/dL 8.5-10.1 N LIVER [id number] 21:49:00 Test Item Value Reference Range Interpretation [...] TOTAL (test U/L 50-136 code = ALKP) [id number] 21:49:00 Test Item Value Reference Range Interpretation Comments LIPASE (test code = LIP) 63 U/L 73-393 L BASIC METABOLIC [id number] 21:48:00 Test Item Value Reference Range Interpretation [...] = CA) 9.3 mg/dL 8.5-10.1 N LIVER [id number] 21:48:00 Test Item Value Reference Range Interpretation Comments TOTAL PROTEIN (test code = PROT) g/dl 6.4-8.2 ALBUMIN (test code = ALB) g/dl 3.4-5.0 BILIRUBIN TOTAL (test code = BILT) mg/dl 0.2-1.0 BILIRUBIN DIRECT (test code = BILD) mg/dl 0.0-0.4 SGOT/AST (test code = AST) U/L 15-37 SGPT/ALT (test code = ALT) U/L 12-78 ALKALINE PHOSPHATASE TOTAL (test code U/L 50-136 = ALKP) [id number] 21:48:00 Test Item Value Reference Range Interpretation Comments LIPASE (test code = LIP) U/L 73-393 BASIC METABOLIC [id number] 21:46:00 Test Item Value Reference Range Interpretation [...] (test code = CA) mg/dL 8.5-10.1 LIVER [id number] 21:46:00 Test Item Value Reference Range Interpretation Comments TOTAL PROTEIN (test code = PROT) g/dl 6.4-8.2 ALBUMIN (test code = ALB) g/dl 3.4-5.0 BILIRUBIN TOTAL (test code = BILT) mg/dl 0.2-1.0 BILIRUBIN DIRECT (test code = BILD) mg/dl 0.0-0.4 SGOT/AST (test code = AST) U/L 15-37 SGPT/ALT (test code = ALT) U/L 12-78 ALKALINE PHOSPHATASE TOTAL (test code U/L 50-136 = ALKP) [id number] 21:46:00 Test Item Value Reference Range Interpretation Comments LIPASE (test code = LIP) U/L 73-393 CBC W/AUTO [id number] 21:43:00 Test Item Value Reference Range Interpretation [...]
[2022-12-28 05:17] LABS: Absolute Lymphocytes (CBC) 1.3 K/uL (0.7-4.9); Hematocrit 41.7 % (36.0-45.0); Lymphocytes % 7.7 % (15.3-44.8); MCV 83.5 fL (80-100); MPV 9.7 fL (7.6-11.3); Platelets 350 thou/uL (152-406)
[2022-12-28] MEDS ORDERED: NA CHLORIDE 0.9% 1,000 ML ONE (05:22)
[2022-12-28] MEDS ORDERED: dexAMETHasone 10 MG/ML VIAL ONE (05:22)
[2022-12-28] MEDS ORDERED: KETOROLAC 30 MG/ML INJ ONE (05:22)
[2022-12-28] MEDS ORDERED: DIPHENHYDRAMINE 50 MG/ML VIAL ONE (05:22)
[2022-12-28] MEDS ORDERED: MAGNES/ALUMIN/SIMET 30ML UCUP ONE (05:22)
[2022-12-28 05:39] LABS: Albumin 3.2 g/dL (3.4-5.0); Bilirubin Total 0.7 mg/dL (0.2-1.0); Potassium 3.5 mEq/L (3.5-5.1); Protein, Total 7.8 g/dL (6.4-8.2)
--- NOTE | 2022-12-28 06:32 | EDPHYS ---
Physician Documentation [facility] Name: Efrem Pastor Age: 32 yrs Sex: Female : 1990 Arrival Date: 12/28/2022 Time: 04:46 Bed 15 Private MD: ED Physician Alcides Solomon HPI: 12/28 05:08 This 32 yrs old Female presents to ER via Ambulatory with complaints of Sore ec2 Throat, Shortness Of Breath. 05:08 Patient arrives today for evaluation of oral lesions. States that she has been having ec2 oral lesions for several weeks, involves the lips as well as the posterior oropharynx, is having worsening pain. Patient has been on azithromycin for multiple rounds and is currently on methylprednisolone for her symptoms. Patient reports no fevers or chills, does report odynophagia.. Historical: - Allergies: 04:58 Haldol; rv 04:58 Scopolamine HBr; rv - PMHx: 04:58 Gastroparesis; Irritable bowel syndrome; PTSD; rv - PSHx: 04:58 bilateral ureter attachment; Cholecystectomy; leep procedure; Lumpectomy of breast; rv right breast; - Immunization history:: Adult Immunizations up to date. - Social history:: Smoking status: Patient reports the use of cigarette tobacco products, VAPE. ROS: 05:08 Constitutional: as per hpi ec2 Exam: 05:08 Constitutional: GEN: NAD Head: atraumatic Eyes: EOMI Ears: External ears are ec2 normal. CV: regular rate LUNGS: no respiratory distress ABD: non-distended SKIN: Oropharynx with multiple ulcers noted on the lips as well as posterior oropharynx and hard palate MSK: no evidence of trauma NEURO: moves all extremities equally Vital Signs: 04:56 BP 139 / 108; Pulse 79; Resp 17; Temp 97.4; Pulse Ox 100% ; rv 05:00 BP 129 / 105; Pulse 79; Resp 18; Pulse Ox 100% ; km8 05:30 BP 121 / 82; Pulse 82; Resp 16 S; Pulse Ox 96% on R/A; km8 06:00 BP 116 / 84; Pulse 79; Resp 16 S; Pulse Ox 96% on R/A; km8 06:15 BP 114 / 78; Pulse 80; Resp 16; Pulse Ox 95% on R/A; km8 Feliz Coma Score: 05:01 Eye Response: spontaneous(4). Motor Response: obeys commands(6). Verbal Response: km8 oriented(5). Total: 15. MDM: 04:49 Patient medically screened. ec2 05:08 Data reviewed: vital signs. ED course: Patient arrives today due to concern for oral ec2 ulcers and pain. Examination remarkable for individual with reassuring vital signs who is otherwise nontoxic-appearing and in no acute distress. Will obtain basic lab work, treat the patient's symptoms and reassess the patient. Currently considering process such as aphthous ulcers, herpes gingivostomatitis, low suspicion for process such as Echevarria-Laith's or SJS given lack of new medications . 06:12 ED course: CBC with leukocytosis noted. Metabolic profile with appropriate electrolytes ec2 and renal function. . 06:29 ED course: On reassessment patient is well-appearing and in no acute distress, has ec2 reassuring vital signs. Additionally I thought about herpes stomatitis however she is already on acyclovir. This does not sound like a medication reaction, this does not sound bacterial given the lack of improvement with antibiotics, she just started acyclovir as a possible viral process. I have a low suspicion for acute dermatologic emergency and instructed her she needs to follow-up with dermatology. Return precautions given.. 12/28 05:06 Order name: CBC with Diff; Complete Time: 06:12 ec2 12/28 05:06 Order name: CMP; Complete Time: 06:12 ec2 Administered Medications: 05:17 Drug: NS 0.9% IV 1000 ml IV at 1 bolus Per protocol; 1000 mL bolus Route: IV; Rate: 1 km8 bolus; Site: right antecubital; 06:35 Follow up: IV Status: Completed infusion; IV Intake: 1000ml 8 05:17 Drug: Decadron - Dexamethasone IVP 10 mg IVP once Route: IVP; Site: right antecubital; km8 05:45 Follow up: Response: No adverse reaction 8 05:18 Drug: Alum-Mag Hydroxide-Simeth PO Suspension (200 mg-200 mg-20 mg/5 mL) 30 ml PO once km8 Route: PO; 05:45 Follow up: Response: No adverse reaction 8 05:18 Drug: Ketorolac IVP 15 mg IVP once Route: IVP; Site: right antecubital; km8 05:45 Follow up: Response: No adverse reaction km8 05:18 Drug: diphenhydrAMINE IVP 25 mg IVP once Route: IVP; Site: right antecubital; km8 05:44 Follow up: Response: No adverse reaction km8 Disposition Summary: 12/28/22 06:30 Discharge Ordered Notes: Location: Home ec2 Condition: Stable ec2 Diagnosis - Oral Ulcers ec2 Followup: ec2 - With: Private Physician - When: - Reason: Re-evaluation by your physician Discharge Instructions: - Discharge Summary Sheet ec2 - Oral Ulcers ec2 Forms: - Medication Reconciliation Form ec2 - Thank You Letter ec2 - Antibiotic Education ec2 - Prescription Opioid Use ec2 - Patient Portal Instructions ec2 - Leadership Thank You Letter ec2 Prescriptions: - acetaminophen-codeine 300-15 mg Oral tablet - take 1 tablet ORAL route 2 times per day as needed for pain; 10 tablet; ec2 Refills: 0, Product Selection Permitted Signatures: Dispatcher [employer] Rowdy Lerma, BRUCE RN Alcides Solomon MD MD 2 Makayla Reardon RN RN km8
--- NOTE | 2022-12-28 06:32 | ER ---
Nurse's Notes [facility] Name: Efrem Pastor Age: 32 yrs Sex: Female : 1990 Arrival Date: 12/28/2022 Time: 04:46 Bed 15 Private MD: Diagnosis: Oral Ulcers Presentation: 12/28 04:56 Chief complaint: Patient states: SORES ON THE UPPER AND LOWER LIPS, INSIDE THE MOUTH, rv WORSENING THROAT PAIN. SEEN IN THE ER, PRESCRIBED AND COMPLETED AZITHROMYCIN. ADVISED TO SEE ENT. UNABLE TO EAT AND DRINK NORMALLY. GOT PENICILLIN SHOT YESTERDAY IN [facility]. Coronavirus screen: At this time, the client does not indicate any symptoms associated with coronavirus-19. Ebola Screen: No symptoms or risks identified at this time. Initial Sepsis Screen: Does the patient meet any 2 criteria? No. Patient's initial sepsis screen is negative. Does the patient have a suspected source of infection? No. Patient's initial sepsis screen is negative. Risk Assessment: Do you want to hurt yourself or someone else? Patient reports no desire to harm self or others. Onset of symptoms was December 28, 2022. 04:56 Method Of Arrival: Ambulatory rv 04:56 Acuity: BELINDA 3 rv Triage Assessment: 04:58 General: Appears uncomfortable, ill, Behavior is calm, cooperative. Pain: Complains of rv pain in mouth. EENT: SORES. Throat. Neuro: Level of Consciousness is awake, alert, obeys commands, Oriented to person, place, time, situation. Cardiovascular: Capillary refill < 3 seconds Patient's skin is warm and dry. Respiratory: Airway is patent Respiratory effort is even, unlabored, Breath sounds are clear bilaterally. GI: No signs and/or symptoms were reported involving the gastrointestinal system. : No signs and/or symptoms were reported regarding the genitourinary system. Derm: Skin is intact. Historical: - Allergies: 04:58 Haldol; rv 04:58 Scopolamine HBr; rv - PMHx: 04:58 Gastroparesis; Irritable bowel syndrome; PTSD; rv - PSHx: 04:58 bilateral ureter attachment; Cholecystectomy; leep procedure; Lumpectomy of breast; rv right breast; - Immunization history:: Adult Immunizations up to date. - Social history:: Smoking status: Patient reports the use of cigarette tobacco products, VAPE. Screenin:59 [facility] ED Fall Risk Assessment (Adult) History of falling in the last 3 months, rv including since admission No falls in past 3 months (0 pts) Score/Fall Risk Level 0 - 2 = Low Risk Oriented to surroundings, Maintained a safe environment, Educated pt \T\ family on fall prevention, incl call for assistance when getting out of bed, Assessed \T\ reinforced patient's understanding of fall precautions. Abuse screen: Denies threats or abuse. Denies injuries from another. Nutritional screening: No deficits noted. Tuberculosis screening: No symptoms or risk factors identified. Assessment: 05:01 General: Appears in no apparent distress. uncomfortable, Behavior is cooperative, km8 appropriate for age, anxious. Pain: Complains of pain in mouth Pain currently is 8 out of 10 on a pain scale. Neuro: Vargas Agitation-Sedation Scale (RASS): 0 - Alert and Calm Level of Consciousness is awake, alert, obeys commands, Oriented to person, place, time, situation. Cardiovascular: Denies chest pain, Capillary refill < 3 seconds Patient's skin is warm and dry. Respiratory: No deficits noted. Reports shortness of breath at rest Airway is patent Respiratory effort is even, unlabored, Respiratory pattern is regular, symmetrical, Breath sounds are clear bilaterally. GI: No signs and/or symptoms were reported involving the gastrointestinal system. : No signs and/or symptoms were reported regarding the genitourinary system. EENT: Oral mucosa is dry. Lesions noted. Reports sore throat. Derm: Skin is intact, is healthy with good turgor, Skin is dry, Skin is pink, warm \T\ dry. normal, Skin temperature is warm Rash noted that is on mouth. Musculoskeletal: No signs and/or symptoms reported regarding the musculoskeletal system. Range of motion: intact in all extremities. 06:11 Reassessment: Patient appears in no apparent distress at this time. No changes from km8 previously documented assessment. Patient and/or family updated on plan of care and expected duration. Pain level reassessed. Patient is alert, oriented x 3, equal unlabored respirations, skin warm/dry/pink. Vital Signs: 04:56 BP 139 / 108; Pulse 79; Resp 17; Temp 97.4; Pulse Ox 100% ; rv 05:00 BP 129 / 105; Pulse 79; Resp 18; Pulse Ox 100% ; km8 05:30 BP 121 / 82; Pulse 82; Resp 16 S; Pulse Ox 96% on R/A; km8 06:00 BP 116 / 84; Pulse 79; Resp 16 S; Pulse Ox 96% on R/A; km8 06:15 BP 114 / 78; Pulse 80; Resp 16; Pulse Ox 95% on R/A; km8 [place] Coma Score: 05:01 Eye Response: spontaneous(4). Motor Response: obeys commands(6). Verbal Response: km8 oriented(5). Total: 15. ED Course: 04:48 Patient arrived in ED. [email or web address] 04:49 Alcides Solomon MD is Attending Physician. ec2 04:50 Makayla Reardon, BRUCE is Primary Nurse. km8 04:58 Triage completed. rv 04:58 Arm band placed on right wrist. rv 04:59 Patient has correct armband on for positive identification. Client placed on continuous rv cardiac and pulse oximetry monitoring. NIBP monitoring applied. 04:59 No provider procedures requiring assistance completed. rv 05:01 Door closed. Noise minimized. Warm blanket given. km8 05:01 Patient maintains SpO2 saturation greater than 95% on room air. km8 05:10 Inserted saline lock: 20 gauge in right antecubital area, using aseptic technique. [facility] Blood collected. 05:11 CMP Sent. f 05:11 CBC with Diff Sent. kmf 06:37 Provided Education on: d/c teaching. 8 06:37 IV discontinued, intact, bleeding controlled, No redness/swelling at site. Pressure km8 dressing applied. Administered Medications: 05:17 Drug: NS 0.9% IV 1000 ml IV at 1 bolus Per protocol; 1000 mL bolus Route: IV; Rate: 1 km8 bolus; Site: right antecubital; 06:35 Follow up: IV Status: Completed infusion; IV Intake: 1000ml 8 05:17 Drug: Decadron - Dexamethasone IVP 10 mg IVP once Route: IVP; Site: right antecubital; km8 05:45 Follow up: Response: No adverse reaction [facility] 05:18 Drug: Alum-Mag Hydroxide-Simeth PO Suspension (200 mg-200 mg-20 mg/5 mL) 30 ml PO once km8 Route: PO; 05:45 Follow up: Response: No adverse reaction km8 05:18 Drug: Ketorolac IVP 15 mg IVP once Route: IVP; Site: right antecubital; km8 05:45 Follow up: Response: No adverse reaction km8 05:18 Drug: diphenhydrAMINE IVP 25 mg IVP once Route: IVP; Site: right antecubital; km8 05:44 Follow up: Response: No adverse reaction km8 Medication: 04:59 VIS not applicable for this client. rv Intake: 06:35 IV: 1000ml; Total: 1000ml. km8 Outcome: 06:30 Discharge ordered by . ec2 06:37 Discharged to home ambulatory, km8 06:37 Condition: good 06:37 Discharge instructions given to patient, Instructed on discharge instructions, follow up and referral plans. medication usage, Demonstrated understanding of instructions, follow-up care, medications, Prescriptions given X 1, 06:38 Patient left the ED. km8 Signatures: Rowdy Casillas RN RN Tisha [email or web address] Alcides Solomon MD MD ec2 Forrester, Kelsey Maroul [facility] Makayla Reardon RN RN km8 Corrections: (The following items were deleted from the chart) 04:59 04:56 Chief complaint: Patient states: SORES ON THE UPPER AND LOWER LIPS, INSIDE THE rv MOUTH, WORSENING THROAT PAIN. SEEN IN THE ER, PRESCRIBED AND COMPLETED AZITHROMYCIN. ADVISED TO SEE ENT. UNABLE TO TOLERATE ANYTHING BY MOUTH. GOT PENICILLIN SHOT YESTERDAY IN [facility]. rv 05:46 05:01 Respiratory: Reports shortness of breath at rest Airway is patent Respiratory km8 effort is even, unlabored, Respiratory pattern is regular, symmetrical, km8
[2022-12-28 06:47] VITALS: TEMP 97.4
[2022-12-28 07:05] VITALS: BP 114/78; O2SAT 95
== END 2022-12-28 06:38 | disposition home or self-care (01) ==
LOC: ER 04:46
DX: K13.79 Other lesions of oral mucosa (principal); R06.02 Shortness of breath; R07.0 Pain in throat; Z20.822 Contact with and (suspected) exposure to COVID-19; Z11.52 Encounter for screening for COVID-19; Z72.0 Tobacco use; Z88.8 Allergy status to other drugs, medicaments and biological substances
CPT/HCPCS: 96361; 85025; 36415; 80053; 96375; 96374; 99285; J1200; J1100; J7030

== ENCOUNTER 2022-12-29 23:44 | Emergency (ER) | payer BC ==
--- OUTSIDE RECORDS SUMMARY | 2022-12-29 23:48 | XMS REPORT | Continuity of Care Document ---
:[address] [facility] t Address [address] [place] [address] Care Team Providers Name Role Phone Kelton [...] Branch haloperi DA Active SV HIVES [facility] dol 5-03 [facility] 00:[facility]: [facility] scopolam DA Active SV [facility]ES [facility] 00:[facility] No Known DA Active U [facility] Allergie 1-01 [facility] s 00:00: [facility] 00 [facility]ospita [facility] No Known DA Active U 0 [facility] Allergie 5-16 [facility] s 00:00: [facility] 00 [facility]ospita [facility] No Known DA Active U [facility] Allergie 5-16 [facility] s 00:00: [facility] 00 l [facility]ospita l scopolam DA Active PR 0 [facility] 4[facility]10 [facility] 00:[facility]: [facility] scopolam DA Active PR RASH-HIVES 0 [facility] ine 4-10 [facility] 00:00: [facility] 00 [facility]ospita [facility] No Known DA Active U 0 [facility] Allergie 6-20 [facility] s 00:00: Regiona 00 l Hospita [facility] No Known DA Active U 0 [facility] Allergie 6-20 [facility] s 00:00: Regiona 00 l Hospita [facility] No Known DA Active U 0 [facility] Drug 9-15 [facility] Intolera 00:00: Regiona nces 00 l Hospita l No Known DA Active U NONE [facility] Drug 9-15 [facility] Intolera 00:00: Regiona nces 00 l Hospita l NO KNOWN Drug Active Univers ALLERGIE Class ity of S [facility] Social History Social Habit Start Date Stop Date Quantity Comments Source Sexual orientation [facility] Sex Assigned At [birth year] [facility] Medical Branch Smoking Status Start Date Stop Date Source Tobacco smoking consumption [facility] Medical unknown Branch Medications Ordered Filled Start [...] 12/26/22 at 1845, RONNIE hydrocortis 2022-02- Yes [id number] 15mL Take 15 mL Univers one 1 [...] 02:16:00 111 mm[Hg] Univer sity of pressure [facility] Diastolic blood 2022-12-27 02:16:00 82 mm[Hg] Unive rsity of pressure [facility] Heart rate 2022-12-27 02:16:00 93 /min [facility] Body temperature 2022-12-27 02:16:00 37.56 [facility] rate 2022-12-27 02:16:00 20 /min [facility] Oxygen saturation in 2022-12-27 02:16:00 96 /min [facility] Arterial blood by [facility] Pulse oximetry [place] Body height 2022-12-26 23:57:00 157.5 cm [facility] Body weight 2022-12-26 23:57:00 58.968 kg [facility] BMI 2022-12-26 23:57:00 23.78 kg/m2 [facility] Procedures Procedure Date / Time Performed Performing Clinician Sourc e CBC WITH DIFF 2022-12-27 01:49:00 Alex, Pending Sale To [facility] o f [facility] RAPID STREP SCREEN 2022-12-27 00:59:00 Alex Marylou [facility] FOR GROUP A Medical Branch NOTICE OF PRIVACY 2022-12-26 23:28:27 Doctor Unassigned, No Univ [facility] PRACTICES Name Medical Branch CONSENT/REFUSAL FOR 2022-12-26 23:27:35 Doctor Unassigned, [facility] DIAGNOSIS AND Name Medical Branch TREATMENT Encounters Start End Encounter Admission Attending Care Care Encounter Source Date/Time Date/Time Type Type Clinicians Facility Department ID 2020-06-24 Inpatient [facility] [id number] [facility] 15:53:[address] [facility] 2020-05-19 Inpatient [facility] [id number] [facility] 11:42:[address] [facility] 2019-07-30 Inpatient [facility] ER [id number] [facility] 21:08:[address] [facility] 2022-12-26 2022-12-26 Emergency Alex, [facility] [id number] [facility] 17:57:00 20:20:00 Marylou SANTOS [id number] ity yvette [place] [id number] [facility] [id number] [place] [address] Branch 2022-12-26 2022-12-26 Emergency X ALEX, [facility] ERT [id number] Univers 17:57:00 20:20:00 MARYLOU jaramillo of [facility] 2022-06-11 2022-06-11 Emergency EM Schultz, [facility] ER [id number] [facility] 11:10:00 12:41:00 Ted 63 [facility]osp[facility] l 2021-02-09 2021-02-10 Emergency EM [facility] [id number] [facility] 23:10:00 00:19:00 Kaelyn 49 [...] Suprapubic PainURINE SOURCE: CLEAN CATCH URINEUR HCG [id number] 11:54:00 Test Item Value Reference Range Interpretation Comments UR HCG QUAL (test code = HCGQLU) NEGATIVE NEGATIVE Indication for culture: Suprapubic PainURINE SOURCE: CLEAN CATCH URINE COMPREHENSIVE METABOLIC [id number] 11:49:00 Test Item Value Reference Range Interpretation [...] 45-117 N TOTAL (test code = ALKP) [id number] 11:49:00 Test Item Value Reference Range Interpretation Comments AMYLASE (test code = PARAM) 73 IU/L 25-115 N [id number] 11:49:00 Test Item Value Reference Range Interpretation Comments LIPASE (test code = LIP) 134 U/L 73-393 N CBC W/AUTO [id number] 11:33:00 Test Item Value Reference Range Interpretation [...] NO NORMAL code = RBCM) COMPREHENSIVE METABOLIC [id number] 16:11:00 Test Item Value Reference Range Interpretation [...] RESULT BY1.21. [Automated mess age] The system Yogi[employer] generated this result transmitted ref erence range: [...] 45-117 H TOTAL (test code = ALKP) [id number] 16:11:00 Test Item Value Reference Range Interpretation Comments LIPASE (test code = LIP) 108 U/L 73-393 N URINALYSIS W REFLEX [id number] 16:05:00 Test Item Value Reference Range Interpretation [...] UA MICRO code = UAMICRO) UR HCG [id number] 16:05:00 Test Item Value Reference Range Interpretation Comments UR HCG QUAL (test code = HCGQLU) NEGATIVE NEGATIVE URINALYSIS W REFLEX [id number] 16:05:00 Test Item Value Reference Range Interpretation [...] DO UA MICRO code = UAMICRO) UA [id number] 16:05:00 Test Item Value Reference Range Interpretation Comments UA WBC (test code = WBCU) 0-2 #/hpf 0-5 UA RBC (test code = RBCU) 0-2 #/hpf 0-5 UA EPITHELIAL CELLS (test code = 2+ /hpf NEG,FEW A EPIU) UA BACTERIA (test code = BACU) FEW /hpf NEGATIVE A UA AMORPHOUS SEDIMENT (test code = FEW /hpf NEG,FEW AMORU) UR HCG [id number] 16:05:00 Test Item Value Reference Range Interpretation Comments UR HCG QUAL (test code = HCGQLU) NEGATIVE NEGATIVE URINALYSIS W REFLEX [id number] 16:05:00 Test Item Value Reference Range Interpretation [...] UA MICRO code = UAMICRO) UR HCG [id number] 16:05:00 Test Item Value Reference Range Interpretation Comments UR HCG QUAL (test code = HCGQLU) NEGATIVE NEGATIVE DRUGS OF ABUSE [id number] 16:01:00 Test Item Value Reference Range Interpretation [...] NG/MLPHENCYCLID INE 25 NG/ML URINALYSIS W REFLEX [id number] 15:58:00 Test Item Value Reference Range Interpretation [...] NEEDED? (test code = UAMICRO) UR HCG [id number] 15:58:00 Test Item Value Reference Range Interpretation Comments UR HCG QUAL (test code = HCGQLU) NEGATIVE NEGATIVE CBC W/AUTO [id number] 15:52:00 Test Item Value Reference Range Interpretation [...] NORMAL code = RBCM) URINALYSIS W REFLEX [id number] 13:00:00 Test Item Value Reference Range Interpretation [...] MICRO code = UAMICRO) UA ICTOTEST FOR [id number] 13:00:00 Test Item Value Reference Range Interpretation Comments UA ICTOTEST FOR BILIRUBIN (test code POSITIVE NEGATIVE A = ICTOU) UA [id number] 13:00:00 Test Item Value Reference Range Interpretation Comments UA WBC (test code = WBCU) 0-2 #/hpf 0-5 UA RBC (test code = RBCU) 3-5 #/hpf 0-5 UA EPITHELIAL CELLS (test code = FEW /hpf NEG,FEW EPIU) UA BACTERIA (test code = BACU) FEW /hpf NEGATIVE A UA MUCUS (test code = MUCU) 1+ /hpf NEG,FEW A UR HCG [id number] 13:00:00 Test Item Value Reference Range Interpretation Comments UR HCG QUAL (test code = HCGQLU) NEGATIVE NEGATIVE DRUGS OF ABUSE [id number] 12:57:00 Test Item Value Reference Range Interpretation [...] NG/MLPHENCYCLID INE 25 NG/ML URINALYSIS W REFLEX [id number] 12:56:00 Test Item Value Reference Range Interpretation [...] MICRO code = UAMICRO) UA ICTOTEST FOR [id number] 12:56:00 Test Item Value Reference Range Interpretation Comments UA ICTOTEST FOR BILIRUBIN (test code POSITIVE NEGATIVE A = ICTOU) UR HCG [id number] 12:56:00 Test Item Value Reference Range Interpretation Comments UR HCG QUAL (test code = HCGQLU) NEGATIVE NEGATIVE URINALYSIS W REFLEX [id number] 12:53:00 Test Item Value Reference Range Interpretation [...] UA MICRO code = UAMICRO) UR HCG [id number] 12:53:00 Test Item Value Reference Range Interpretation Comments UR HCG QUAL (test code = HCGQLU) NEGATIVE NEGATIVE URINALYSIS W REFLEX [id number] 12:53:00 Test Item Value Reference Range Interpretation [...] UA MICRO code = UAMICRO) UR HCG [id number] 12:53:00 Test Item Value Reference Range Interpretation Comments UR HCG QUAL (test code = HCGQLU) NEGATIVE NEGATIVE - XR ABDOMEN [id number] 12:16:00 [facility] HOSPITALName: BREANNA QUEEN : 1990 Sex: F FAX: Sawyer Centeno II Weott: HEATHER St: PRE Name: BREANNA QUEEN FSED : 1990 Age/S: 30/F [address] Unit #: [id number] Loc: [place] [address] Phys: Sawyer Centeno II, MD Acct: [id number] Dis Date: Status: PRE ER PHONE #: Exam Date: 05/19/2020 1212 FAX #: Reason: abdominal pain EXAMS: CPT CODE: [id number] XR ABDOMEN 2V 63690 - XR ABDOMEN 2V PROVIDED REASON FOR [...] RT Bekah (R) CT Trnscrd Date/Time/By: 05/19/2020 (4956) : By: [email or web address] Orig Print D/T: S: 05/19/2020 (5707) PAGE 1 Signed ReportBASIC METABOLIC PANEL 2020-05-19 [...] RESULT BY1.21. [Automated mess age] The system [employer]ogi[employer] generated this result transmitted ref erence range: >=60. Th e reference range was not used to int erpret this result as normal/abnormal . CREATININE (test code 0.64 mg/dl 0.55-1.02 N = CREAT) CALCIUM (test code = 9.8 mg/dL 8.5-10.1 N CA) LIVER [id number] 12:08:00 Test Item Value Reference Range Interpretation [...] 119 U/L 45-117 H code = ALKP) [id number] 12:08:00 Test Item Value Reference Range Interpretation Comments LIPASE (test code = LIP) 67 U/L 73-393 L CBC W/AUTO [id number] 11:43:00 Test Item Value Reference Range Interpretation [...] NORMAL code = RBCM) URINALYSIS W REFLEX [id number] 22:06:00 Test Item Value Reference Range Interpretation [...] MUCU) 2+ /hpf NEG,FEW A BASIC METABOLIC [id number] 21:54:00 Test Item Value Reference Range Interpretation [...] = 9.3 mg/dL 8.5-10.1 N CA) LIVER [id number] 21:54:00 Test Item Value Reference Range Interpretation [...] 69 U/L 50-136 N code = ALKP) [id number] 21:54:00 Test Item Value Reference Range Interpretation Comments LIPASE (test code = LIP) 63 U/L 73-393 L BASIC METABOLIC [id number] 21:53:00 Test Item Value Reference Range Interpretation [...] = 9.3 mg/dL 8.5-10.1 N CA) LIVER [id number] 21:53:00 Test Item Value Reference Range Interpretation [...] TOTAL (test U/L 50-136 code = ALKP) [id number] 21:53:00 Test Item Value Reference Range Interpretation Comments LIPASE (test code = LIP) 63 U/L 73-393 L BASIC METABOLIC [id number] 21:52:00 Test Item Value Reference Range Interpretation [...] = 9.3 mg/dL 8.5-10.1 N CA) LIVER [id number] 21:52:00 Test Item Value Reference Range Interpretation [...] TOTAL (test U/L 50-136 code = ALKP) [id number] 21:52:00 Test Item Value Reference Range Interpretation Comments LIPASE (test code = LIP) 63 U/L 73-393 L BASIC METABOLIC [id number] 21:51:00 Test Item Value Reference Range Interpretation [...] = 9.3 mg/dL 8.5-10.1 N CA) LIVER [id number] 21:51:00 Test Item Value Reference Range Interpretation [...] TOTAL (test U/L 50-136 code = ALKP) [id number] 21:51:00 Test Item Value Reference Range Interpretation Comments LIPASE (test code = LIP) 63 U/L 73-393 L BASIC METABOLIC [id number] 21:49:00 Test Item Value Reference Range Interpretation [...] = CA) 9.3 mg/dL 8.5-10.1 N LIVER [id number] 21:49:00 Test Item Value Reference Range Interpretation [...] TOTAL (test U/L 50-136 code = ALKP) [id number] 21:49:00 Test Item Value Reference Range Interpretation Comments LIPASE (test code = LIP) 63 U/L 73-393 L BASIC METABOLIC [id number] 21:48:00 Test Item Value Reference Range Interpretation [...] = CA) 9.3 mg/dL 8.5-10.1 N LIVER [id number] 21:48:00 Test Item Value Reference Range Interpretation Comments TOTAL PROTEIN (test code = PROT) g/dl 6.4-8.2 ALBUMIN (test code = ALB) g/dl 3.4-5.0 BILIRUBIN TOTAL (test code = BILT) mg/dl 0.2-1.0 BILIRUBIN DIRECT (test code = BILD) mg/dl 0.0-0.4 SGOT/AST (test code = AST) U/L 15-37 SGPT/ALT (test code = ALT) U/L 12-78 ALKALINE PHOSPHATASE TOTAL (test code U/L 50-136 = ALKP) [id number] 21:48:00 Test Item Value Reference Range Interpretation Comments LIPASE (test code = LIP) U/L 73-393 BASIC METABOLIC [id number] 21:46:00 Test Item Value Reference Range Interpretation [...] (test code = CA) mg/dL 8.5-10.1 LIVER [id number] 21:46:00 Test Item Value Reference Range Interpretation Comments TOTAL PROTEIN (test code = PROT) g/dl 6.4-8.2 ALBUMIN (test code = ALB) g/dl 3.4-5.0 BILIRUBIN TOTAL (test code = BILT) mg/dl 0.2-1.0 BILIRUBIN DIRECT (test code = BILD) mg/dl 0.0-0.4 SGOT/AST (test code = AST) U/L 15-37 SGPT/ALT (test code = ALT) U/L 12-78 ALKALINE PHOSPHATASE TOTAL (test code U/L 50-136 = ALKP) [id number] 21:46:00 Test Item Value Reference Range Interpretation Comments LIPASE (test code = LIP) U/L 73-393 CBC W/AUTO [id number] 21:43:00 Test Item Value Reference Range Interpretation [...] NRBC#) Notes Date/Time Note Provider Source 2022-06-11 11:33:00 [id number]:33:00 [facility]EMERGENCY PROVIDER REPORTREPORT#:[id number] REPORT STATUS: SignedDATE:06/11/22 TIME: 1133 PATIENT: BREANNA JIMENEZ UNIT #: [id number]#: [id number] ROOM/BED:AGE: 32 SEX: F PCP PHYS: Undefined ProviderSERVICE AUTHOR: Ted Schultz MD * ALL edits or amendments must be made on the electronic/computer document * HPI-Nausea/Vomit/Diarrhea GeneralConfirmed Patient YesInitial Greet Date/Time 06/11/22 1110 PresentationChief Complaint Nausea, Vomiting, DiarrheaHx Obtained From PatientOnset Occurred Today ContextSimilar Sx Previous Yes Free Text HPI NotesFree Text HPI NotesPatient reports ever since having a cholecystectomy she has experienced recurrent episodes of N/V/D. Current symptoms started sudden onset this morning. Review of Systems ROS StatementsAll systems rev neg except as marked. Past Medical History - AdultStated Complaint ABDOMINAL PAINAllergiesCoded Allergies:haloperidol (Severe , HIVES 06/11/22)scopolamine (Severe, HIVES 06/11/22) Home MedicationsActive ScriptsIBUPROFE N (MOTRIN) 600 MG PO QID PRN PRN PAIN IBUPROFEN (MOTRIN) 600 MG PO QID PRN PRN PAIN #30 TABS Prov: 02/10/21guaiFENesin ER (MUCINEX) 1,200 MG PO Q12H guaiFENesin ER (MUCINEX) 1,200 MG PO Q12 H #30 TABS Prov: 02/10/21 Reported MedicationsAMOXICILLIN/CLAV K (AUGMENTIN 875/125 MG) 1 TAB PO Q12H PANTOPRAZOLE DR (PROTONIX) 20 MG PO DAILY [ASHKAN] Calculated Suicide Risk (nurs) No riskReview of Nursing Notes Rev avail, and agreeAdditional Medical HistoryIBS gastroparesis anxiety bipolar d/oPast Surgical History:Reports: Cholecystectomy (2015), Breast biopsy/procedure (2008). Additional Surgical Historybilateral ureter reattachment 1997 LEE 2018 Botox injection to pylorusAlcohol Use Alcohol use (occasional)Drug Use MarijuanaSmokin g status for patients 13 years old or older: Never Smoker Physical Exam Vital SignsVital SignsFirst Documented: Result Date Time Pulse Ox 99 06/11 1113 B/P 156/96 06/11 1113 B/P Mean 116 06/11 1113 O2 Delivery Room air 06/11 1113 Pulse 70 06/11 1113 Resp 18 06/11 1113 Temp 36.3 06/11 1206 Last Documented: Result Date Time Pulse Ox 100 06/11 1206 B/P 124/78 06/11 1206 B/P Mean 9 3 06/11 1206 Temp 36.3 06/11 1206 Pulse 77 06/11 1206 Resp 16 06/11 1206 O2 Delivery Room air 06/11 1113 Review of Vital Signs Reviewed [place] d PEGeneral/Const General/Const Awake, Alert Distress/Hydration Distress mild. Eyes Eyes PERRL, EOMI, No scleral icterusResp/Chest Respiratory/Chest Breath sounds NL, Breath sound s = bilat, No respiratory distressCardiovascular Cardiovascular Regular rhythm, Heart sounds NL Heart Rate/Rhythm Tachycardia. Abdomen/GI Abdomen/GI Soft, BS normoactive, No distention Tenderness/Guarding/Rebound Tender diffuse. Skin Skin Color NL, No rash, Dry Interpretation Diagnostics Lab Results InterpretationResultsLaboratory Tests 06/11/22 1118:[Embedded Image Not Available]Laboratory Tests: 06/11 06/11 1132 1118 Chemistry Sodium [...] (45 - 117 U/L) 105 Total Protein (6. 4 - 8.2 g/dl) 7.7 Albumin (3.4 - [...] % (Auto) (16 - 50 %) 22.9 Crook % (Auto) (0.0 - 13. 0 %) 9.8 Eos % (Auto) (0.0 - 4.5 %) 0.2 Baso % (Auto) (0.0 - 1.5 %) 0.6 Immature Gran # (Auto) (0.00 - 0.03 X10(3)uL) 0.01 Absolute Neuts (auto ) (1.7 - 7.7 X10(3)) 3.2 Absolute Lymphs (auto) (1.0 - 4.8 X10(3)) 1.1 Absolute Monos (auto) (0. 0 - 0.89 X10(3)) 0.5 Absolute Eos (auto) (0.0 - 0. 6 X10(3)) 0.0 Absolute Basos (auto) (0.0 - 0.2 X10(3)) 0.0 Immature Gran % (0.0 - 2.0 %) 0.2 RBC Morphology (NORMAL) NO Toxicology Ketones (NEGATIVE mg/dl) TRACE H Urines Urine Color (YELLOW) YELLOW Urine Appearance (CLEAR) CLOUDY Urine pH (4.6 - 8.0) 7.0 Ur Specific [place] (1.001 - 1.035) 1.020 Urine Protein (NEGATIVE mg/dl) NEGATIVE Urine Glucose (UA) (NORMAL mg/dl ) NEGATIVE Urine Blood (NEGATIVE /UL) TRACE H Urin e Nitrite (NEGATIVE) NEGATIVE Urine Bilirubin (NEGATIVE mg/dl) NEGATIVE Urine Urobilinogen (NORMAL mg/dl) 1.0 Ur Leukocyte Esterase (NEGATIVE /UL) NEGATIVE Ur Epithelial Cells (NEG,FEW /hpf) 2+ H Amorphous Sediment (NEG,FEW /hpf) 2+ H Urine HCG, Qual (NEGATIVE) NEGATIVE Urine Comment CLN CATCH Re-Evaluation MDM Free Text MDM NotesFree Text MDM NotesNursing staff informed me that patient had been to [facility] ED yesterday. After discussion patient states [facility]/reglan after blood work and CT scan were unremarkable. Re-Evaluation/Progress #1Time of Re-Eval 1157Re-Eval Status Improved ED CourseMedication(s) OrderedMedication(s) Ordered:Central Nervous System Agents Sig/Ayanna Start time Last Medication Dose Route Stop Time Status Admin Morphine Sulfate 4 MG X1ED STA 05/0 3 1129 DCr 05/03 IV 05/ 1130 1132 Electrolytic, Caloric, And Elvia Sig/Ayanna Start time Last Medication Dose Route Stop Time Status Admin Sodium Chloride 1,000 ML X1ED STA 05 1141 DC 05/ IV 05/03 1240 1155 Sodium Chloride 1,000 M L X1ED STA 05 1118 DC 05/03 IV 05/03 1217 1123 Gastrointestinal Drugs Sig/Ayanna Start time Last Medication Dose Route Stop Time Status Admin Prochlorperazine 5 MG X1ED STA 06/11 1118 DC 05/03 Edisylate IV 05/ 1119 1124 Patient Discharge Departure Vital Signs/ConditionVital SignsFirst Documented: Result Date Time Pulse Ox 99 05/ 1113 B/P 156/96 05/ 1113 B/P Mean 116 05/ 1113 O2 Delivery Room air 05 1113 Pulse 70 05/ 1113 Resp 18 05/ 1113 Temp 36.3 05/ 1206 Last Documented: Result Date Time Pulse Ox 100 05/ 1206 B/P 124/78 05/ 1206 B/P Mean 93 05/ 1206 Temp 36.3 05/ 1206 Pulse 77 05/ 1206 Resp 16 05/ 1206 O2 Delivery Room air 05/ 1113 All vital signs available at the time of this entry have been reviewed. Clinical ImpressionClinical ImpressionPrimary Impression: Gastroenteritis Disposition DecisionDischarge )( Discharged to Home Yes )( Time 1200 )( Date 06/11/22 Discharge/Care PlanCounseled Regarding Diagnosis, Lab results, Need for follow-upPatien t Instructions ED FOOD POIS or G-ENTERITIS 6y-aduAdditional InstructionsSchedule a follow-u p appointment with your Primary Care Provider Discharge NoteI have spoken with the patient and/or caregivers. I have explained the patient'scondition, diagnoses and treatment plan based on the information available to meat this time. I have answered the patient's and/or caregiver's questions and addressed any concerns . The patient and/or caregivers have as good an understanding of the patient's diagnosis, condition and treatment plan as can beexpected a t this point. The vital signs have been stable. Th e patient's condition is stable and appropriate fo r discharge from the emergency department. The patient will pursue further outpatient evaluatio n with the primary care physician or other designated or consulting physician as outlined i n the discharge instructions. The patient and/or caregivers are agreeable to this planof care and follow-up instructions have been explained in detail. The patient and/or caregivers have received these instructions in written format an d have expressed an understanding of the discharge instructions. The patient and/or caregivers are aware that any significant change in condition o r worsening of symptoms should prompt an immediate return to this or the closest emergency department or a call to 911. at 1245RPT #:[id number] OF REPORTEDEmergenc y department [id number]:33:00H.[id number] a ilable for patient [id number]:45:50 2021-02-09 23:43:00 [id number]:43:00 [facility]EMERGENCY PROVIDER REPORTREPORT#:[id number] REPORT STATUS: SignedDATE:02/09/21 TIME: 2342 PATIENT: BREANNA JIMENEZ UNIT #: [id number]#: [id number] ROOM/BED:AGE: 30 SEX: F PCP PHYS: N o Primary or Family PhysicianSERVICE AUTHOR: Kaelyn Peguero MD * ALL edits or amendments must be made on the electronic/computer document * DLL-Eph-Xcoz Illness GeneralConfirmed Patient YesPatient Type New patientInitial Greet Date/Time 02/09/21 7435 PresentationChief Complaint Body aches, Chills, Cough Free Text HPI NotesFree Text HPI [id number] female comes emergency room complaining of cough, body aches, chills, that began 2 days ago. Patient has been traveling in [place] and apparently although she has been driving in her own car she is feeling sick. Patient is worried about COVID-19. There is no fever chills chest pain or shortness of breath. She has not taken anything other than NyQuil and acetaminophen. Patient denies nausea and vomiting. Review of Systems ROS StatementsAll systems rev neg except as marked. Focused Review of SystemsConstitutionalReports: Chills. Denies: Fever, Lethargy. EyesDenies: Eye pain bilat, Redness bilat, Visual loss bilat. Ears/Nose/ThroatDenies: Earache bilat, Nasal congestion, Sore throat. RespiratoryReports: Cough, non-productive, Shortness of breath. Denies: Cough, productive. CardiovascularDenies: Chest pain, Syncope. GIDenies: Abdominal pain, Diarrhea, Nausea, Vomiting. MusculoskeletalDenies: Back pain, Extremity pain . HematologicDenies: Bleeding, Bruising. SkinDenies: Diaphoresis, Rash. NeurologicDenies: Change LOC, Dizziness, Focal weakness, Headache, Numbness, Slurred speech. Past Medical History - AdultStated Complaint FLU LIKE SYMPTOMSAllergiesCoded Allergies:No Known Allergies (02/09/21) Home MedicationsReported MedicationsAMOXICILLIN/CLAV K (AUGMENTIN 875/125 MG) 1 TAB PO Q12H PANTOPRAZOLE DR (PROTONIX) 20 MG PO DAILY [ASHKAN] Calculated Suicide Risk (nurs) No riskAdditional Medical HistoryIBS gastroparesis anxiety bipolar d/oPast Surgical History:Reports: Cholecystectomy (2015), Breast biopsy/procedure (2008). Additional Surgical Historybilateral ureter reattachment 1997 LEEP 2018 Botox injection to pylorusAlcohol Use Alcohol use (occasional)Drug Use MarijuanaSmokin g status: Smoking status for patients 13 years old or older: Never Smoker Physical Exam Vital SignsVital SignsFirst Documented: Result Date Time Pulse Ox 100 [...] 2310 Review of Vital Signs Reviewed Focused PEGeneral/Const General/Const Awake, Alert, Well appearing, Not toxic appearingEyes Eyes PERRL, No photophobia, Conjunctiva NLEars/Nose/Throat Ears/Nose/Throat Airway patent, Mucous membranes moist, Pharynx NL, Tympanic membs NL, Ext aud canal NL, Nose exam NL, No sinus tendernessMS Neck Neck Supple, No meningismus, Full range of motion, No adenopathy, No swelling, Non-tender, No massesResp/Chest Respiratory/Chest Breath sounds NL, Breath sounds = bilat, No respiratory distress, No rales, No rhonchi, No wheezing, No retractionsCardiovascular Cardiovascular Hear t rate NL, Regular rhythm, Heart sounds NL, No murmurs, Peripheral circulation NLAbdomen/GI Abdomen/GI Soft, Non-tender, No guarding, No reboundLymphatic Lymphatic No gross adenopathySkin Skin Color NL, No rash, Warm, Dry, Turgor NLNeurologic Neurologic Oriented X3, Speech NL, No motor deficits, No sensory deficits Re-Evaluation MDM ED CourseMedication(s ) OrderedMedication(s) Ordered:Central Nervous System Agents Sig/Ayanna Start time Last Medication Dose Route Stop Time Status Admin Ketorolac 15 M G X1ED STA 02/09 234 DC 02/10 Tromethamine IM 02/09 2346 0000 Hormones And Synthetic Substit Sig/Ayanna Start time Last Medication Dose Route Stop Time Status Admin Methylprednisolone 125 MG X1ED STA 02/096 DC 02/09 Sodium Succinate IM 02/09 2347 2359 Patient Discharge Departure Nora l Signs/ConditionVital SignsFirst Documented: Result Date Time Pulse Ox 100 02/09 2310 B/P 110/74 02/09 2310 B/P Mean 86 02/09 2310 O2 Delivery Room air 02/09 2310 Temp 37.4 02/09 231 1 Pulse 78 02/09 2311 Resp 18 02/09 2311 Last Documented: Result Date Time Pulse Ox 100 02/09 2310 B/P 110/74 02/09 2310 B/P Mean 86 02/09 2310 O2 Delivery Room air 02/09 2310 Temp 37.4 02/09 231 Pulse 78 02/09 231 Resp 18 02/09 231 1 All vital signs available at the time of this entry have been reviewed. Condition Stable Clinical ImpressionClinical ImpressionPrimary Impression: Flu syndrome Disposition DecisionDischarge )( Discharged to Home Yes )( Time 0008 )( Date 02/10/21 Discharge/Care PlanCounseled Regarding Diagnosis, Lab results, Need for follow-up, When to return to ED(Auto) PrescriptionsCurrent Visit ScriptsIBUPROFEN (MOTRIN) 600 MG PO QID PRN PRN PAIN IBUPROFEN (MOTRIN) 600 MG PO QID PRN PRN PAIN #30 TABS guaiFENesin ER (MUCINEX) 1,200 MG PO Q12H guaiFENesin ER (MUCINEX) 1,200 MG PO Q12H #30 TABS Patient Instructions Cold and Flu Season Boost Your ...Additional InstructionsFollow-up with primary care provider within 24 hoursReturn to the emergency room for any acute change, new symptoms or worsening symptoms. at 0652RP T #:[id number] OF REPORTEDEmergency department [id number]:43:00H.[id number] a ilable for patient [id number]:53:06 2020-06-24 15:35:00 [id number]:35:00 [facility]I RODRIGUEZ [facility]EMERGENCY PROVIDER REPORTREPORT#:[id number] REPORT STATUS: SignedDATE:06/24/20 TIME: 1534 PATIENT: BREANNA JIMENEZ UNIT #: [id number]#: [id number] ROOM/BED:AGE: 30 SEX: F PCP PHYS: N o Primary or Family PhysicianSERVICE AUTHOR: Maicol Coy MD * ALL edits or amendment s must be made on the electronic/computer document * HPI-Abd Pain F Under 40 GeneralInitial Greet Date/Time 06/24/20 1529PCPDr. [place] in [place] PresentationChief Complaint Abdominal pain, Nausea, Vomiting moderateHx Obtained From PatientSudden in Onset? NoOnset Occurred YesterdaySymptom Duration Waxes and wanesProgression since Onset Gradually worseningContext of Onset h/o gastroparesis vs cannabis inducedCaused by No trauma by historyLocation DiffuseQuality CrampingRadiationNo: Does not radiate. Migration/Movement NoneSeverity: Onset ModerateSeverity: Current ModerateAssociated withReports: Nausea, Vomiting. Associated Other Pt denies other symptomsExacerbated by NothingRelieved by Nothing Free Text HPI NotesFree Text HPI Rgnrn49g M2 LMP 19 May 2020 c/o acute on chronic gastroparesis related to IBS and/or THC use for past 2d with nonbloody N/V x 6. She is visiting from [place]. Risk-Abd Pain F Under 40)( Ectopic Risk factors reviewed, History of InfertilityCoronary Artery Disease Risk factors reviewed, SmokingThoracic Aortic Dissection Risk factors reviewed, No risk factors Review of Systems ROS StatementsAll systems rev neg except as marked. Past Medical History - AdultStated Complaint ABD PAINAllergiesCoded Allergies:No Known Allergies (06/24/20) Home MedicationsReported MedicationsAMOXICILLIN/CLAV K (AUGMENTIN 875/125 MG) 1 TAB PO Q12H PANTOPRAZOLE DR (PROTONIX) 20 MG PO DAILY [ASHKAN] Additional Medical HistoryIBSgastroparesisanxietybipolar d/oPast Surgical History:Reports: Cholecystectomy (2015) , Breast biopsy/procedure (2008). Additional Surgical Historybilateral ureter reattachment 1997LEEP 2018Botox injection to pylorusAlcohol Use Alcohol use (occasional)Drug Use MarijuanaSmoking status: Smoking status for patients 13 years old or older: Current every da y smoker Physical Exam Vital SignsVital SignsFirst Documented: Result Date Time Pulse Ox 98 06/24 1531 B/P 133/87 06/24 1531 B/P Mean 102 06/24 1531 O2 Delivery Room air 06/24 1531 Temp 37.4 06/24 1531 Pulse 92 06/24 1531 Resp 18 06/24 153 1 Last Documented: Result Date Time Pulse Ox 99 06/24 1635 B/P 128/85 06/24 1635 B/P Mean 99 06/24 1635 O2 Delivery Room air 06/24 1635 Temp 37.2 06/24 1635 Pulse 90 06/24 1635 Resp 17 06/24 1635 Review of Vital Signs Reviewed Basic Physical ExamBasic PE HEAD: Atraumatic/NC, EYES: PERRL, conj clear, ENT: Membranes moist, NECK: Supple, EXT: No gross abnormality, SKIN: No rashes, warm/dry, NEURO: alert oriented, NEURO: gross movement NL, PSYCH: NL thought content Focused PEGeneral/Const General/Const Awake, Alert, No acute distress, Well appearing, Well developed, Well hydrated, Well nourished, Cooperative, Not toxic appearingResp/Chest Respiratory/Chest Atraumatic, Breath sounds NL, Breath sounds = bilat, No respiratory distress, No rales, No rhonchi, No wheezing, No retractions, No stridor, No chest tenderness, No chest wall deformity, No crepitusCardiovascular Cardiovascular Heart rate NL, Regular rhythm, Heart sounds NL, No gallop, No murmurs, No rubs, Cap refill not delayed, Peripheral circulation NL, Pulses = bilaterally, No gross BP differentialAbdomen/GI Abdomen/GI Atraumatic, Soft, McBurney's non-tender, No guarding, No rebound, BS normoactive, No distention, No palpable mass, No pulsatile mass Tenderness/Guarding/Rebound Tender diffuse. MS Back Back Atraumatic, Inspection NL, Full range of motion, Painless range of motion, Non-tender, No midline vertebral tend, No paraspinal tenderness, No muscle spasm, No CVA tenderness Interpretation Diagnostics Lab Result s InterpretationResultsLaboratory Tests 06/24/20 1545:[Embedded Image Not Available]Laboratory Tests: 06/24 06/24 06/24 1545 1537 1537Chemistr y Sodium (136 - 145 mmol/L) 138 Potassium [...] g/dl) 7.8 Albumin (3.4 - 5.0 g/dl) 3. 7 Lipase (73 - 393 U/L) 108Hematology WBC (4.5 - 11.0 X10(3)) 3.8 L RBC (4.2 - 5.4 X10(6)) 4.85 Hgb (12.5 - 16.0 g/dL) 13.7 Hct (37.0 - 47.0 %) 42.1 MCV (78 - 100 fL) 86.8 MCH (26.0 - 34.0 pg) 28.2 MCHC (30.0 - 37.0 g/dl) 32.5 RDW (11.5 - 14.5 %) 13.3 Plt Count (150 - 350 X10(3)) 241 MP V (8.7 - 11.4 fl) 11.7 H Neut % (Auto) (36.0 - 66.0 %) 36.7 Lymph % (Auto) (16 - 50 %) 48.2 Mon o % (Auto) (0.0 - 13.0 %) 13.0 Eos % (Auto) (0.0 - 4.5 %) 0.8 Baso % (Auto) (0.0 - 1.5 %) 1.0 Immature Gran # (Auto) (0.00 - 0.03 X10(3)uL) 0.01 Absolute Neuts (auto) (1.7 - 7.7 X10(3)) 1. 4 L Absolute Lymphs (auto) (1.0 - 4.8 X10(3)) 1.9 Absolute Monos (auto) (0.0 - 0.89 X10(3)) 0.5 Absolute Eos (auto) (0.0 - 0.6 X10(3)) 0.0 Absolute Basos (auto) (0.0 - 0.2 X10(3)) 0.0 Immature Gran % (0.0 - 2.0 %) 0.3 RBC Morphology (NORMAL) NOToxicology Urine Opiates Screen (NEGATIVE ng/ml) NEGATIVE Urine Barbiturates (NEGATIVE ng/ml) NEGATIVE Ur Phencyclidine Scrn (NEGATIVE ng/ml) NEGATIVE Ur Amphetamine Screen (NEGATIVE ng/dl) NEGATIVE U Benzodiazepines Scrn (NEGATIVE ng/ml) NEGATIVE Urine Cocaine Screen (NEGATIVE ng/ml) NEGATIVE U Cannabinoids Screen (NEGATIVE ng/ml) POSITIVE H Ketones (NEGATIVE mg/dl) NEGATIVEUrines Urine Color (YELLOW) YELLO W Urine Appearance (CLEAR) CLEAR Urine pH (4.6 - 8.0) 7.0 Ur Specific [place] (1.001 - 1.035) 1.020 Urine Protein (NEGATIVE mg/dl) NEGATIVE Urine Glucose (UA) (NORMAL mg/dl) NEGATIVE Urine Blood (NEGATIVE /UL) SMALL Urine Nitrite (NEGATIVE) NEGATIVE Urine Bilirubin (NEGATIVE mg/dl) NEGATIVE Urine Urobilinogen (NORMAL mg/dl) 0.2 Ur Leukocyte Esterase (NEGATIVE /UL) NEGATIVE Urine RBC (0 - 5 #/hpf) 0-2 Urine WBC ( 0 - 5 #/hpf) 0-2 Ur Epithelial Cells (NEG,FEW /hpf ) 2+ H Amorphous Sediment (NEG,FEW /hpf) FEW Urin e Bacteria (NEGATIVE /hpf) FEW H Urine HCG, Qual (NEGATIVE) NEGATIVE Urine Comment CLN CATCH Lab StatementLaboratory studies reviewed and considered in the medical decision-making. Re-Evaluation [facility] )( Re-Evaluation/Progress #1Text/Dict NotePt states her episode is resolve d and is happy in room with her . Her HRis 80's, so she d/n have 2 SIRS criteria.Time of Re-Eval 1647)( Re-Eval Status Improved, Resolved Abd Pain MDM Note F < 40The patient is resting comfortably and feels better, is alert and in no distress. The repeat examination is unremarkable and benign; in particular, there is no discomfor t at [facility]'s point. The history, exam, diagnostic testing, and current condition do not suggest acute appendicitis, bowel obstruction, tubovarian abscess, ectopic , ovarian torsion, acute cholecystitis, bowel perforation, major gastrointestinal bleeding, severe diverticulitis, sepsis, or other significant pathology to warrant further testing, continued ED treatment, admission, or surgical evaluation at this point. The vital signs have been stable. The patient does not have uncontrollable pain, intractable vomiting, or other significant symptoms. The patient's condition is stable and appropriate for discharge. The patient will pursue further outpatient evaluation with the primary care physician or other designated or consulting physician as indicated in the discharge instructions. TAD MDM NoteThere is no historical, physical exam, laboratory or imaging data that would suggest a need to consider or further evaluate the patient for thoracic aortic dissection at this time. I am no longer considering thoracic aortic dissection in the differential diagnosis. The timing of the onset of pain and the pain radiation pattern are not consistent with dissection. There has been no movementof pain from the chest to the back or to the abdomen, which would be consistent with a dissection process. The analysis of risks that would predispose to dissection does not indicate a need to further pursue the diagnosis. The patient's vital signs have been stable, there is no apparent aortic murmur, and there is either 1 ) no gross radial pulse differential and/or 2) no significant blood pressure differential between the right and left arms. Tissue Perfusion ReassessmentPatient tissue perfusion reassessmen t completed. ED CourseMedication(s) OrderedMedication(s) Ordered:Electrolytic, Caloric, And Elvia Sig/Ayanna Start time Last Medication Dose Route Stop Time Status Admin Sodium Chloride 100 ML .STK-MED ONE 06/24 1547 D C 06/24 IV 1552 Lactated Ringer's 1,000 ML BOLUS ONCE ONE 06/24 1545 DC 06/24 IV 06/24 1644 1551 Gastrointestinal Drugs Sig/Ayanna Start time Last Medication Dose Route Stop Time Status Admin Metoclopramide HCl 10 MG X1ED STA 06/24 1535 DC 06/24 IV 06/24 1536 1552 Differential DiagnosisRuled Out Sepsis This is not sepsis. Patient Discharge Departure Vital Signs/ConditionVital SignsFirst Documented: Result Date Time Pulse Ox 98 06/24 1531 B/P 133/87 06/24 1531 B/P Mean 102 06/24 1531 O2 Delivery Room air 06/24 1531 Temp 37.4 06/24 153 1 Pulse 92 06/24 1531 Resp 18 06/24 1531 Last Documented: Result Date Time Pulse Ox 99 06/24 1635 B/P 128/85 06/24 1635 B/P Mean 99 06/24 163 5 O2 Delivery Room air 06/24 1635 Temp 37.2 06/24 1635 Pulse 90 06/24 1635 Resp 17 06/24 1635 All vital signs available at the time of this entry have been reviewed. Condition Stable, Improved Clinical ImpressionClinical ImpressionPrimary Impression: GastroparesisTime of Impression 1650 Disposition DecisionDischarge )( Discharged to Home Yes )( Time 1650 )( Date 06/24/20 Discharge/Care PlanCounseled Regarding Diagnosis , Lab results, Need for follow-up, When to return to ED, Smoking cessation (MJ)Patient Instruction s ED How to Quit Smoking, ED Vomiting (Adult)Brayan Odell MD Discharge NoteI have spoken with the patient and/or caregivers. I have explained the patient'scondition, diagnoses and treatment plan based on the information available to meat this time. I have answered the patient's and/or caregiver's questions and addressed any concerns. The patient and/or caregivers have as good an understanding of the patient's diagnosis, condition and treatment bruce n as can beexpected at this point. The vital signs have been stable. The patient's condition is stable and appropriate for discharge from the emergency department. The patient will pursue further outpatient evaluation with the primary care physician or other designated or consulting physician as outlined in the discharge instructions. The patient and/or caregivers are agreeable to this planof care and follow-up instructions have been explained in detail. The patient and/or caregivers have received these instructions in written format and have expresse d an understanding of the discharge instructions. The patient and/or caregivers are aware that any significant change in condition or worsening of symptoms should prompt an immediate return to this or the closest emergency department or a call to 911. Quality MeasuresBP F/U for HTN Referred for BP f/u < 4wk, F/u with PCP/other docPreg Test for Women w/Abd Pain Female age 14-50, Complaint of abdominal pn, Any preg test orderedSmoking Cessation Screened, tobacco user, Tobacco cess interventionTobacco Screening/Cessation 18 years or older, Tobacco user Smoking Cessation CounselingThe patient was questioned regarding their smoking habits, and I have determined, as the patient's treating physician, that there is a medical necessity in regards to the patient's medical condition to provide smoking cessation program education. The patient was advised to stop smoking and counsele d for a period ofgreater than 3 minutes. The patient was instructed to follow up with a primary care physician for smoking cessation and given information regarding local smoking cessation programs in the area. The patient received detailed discharge instructions as to how to stop smoking. The patient expressed an understanding of the need to follow up and the plan for smoking cessation. Electronically Janelle d by Maicol Coy MD on 06/24/20 at 2053RPT #:[id number] OF REPORTEDEmergency department [id number]:35:00H.[id number] a ilable for patient [id number]:53:15 2020-05-19 12:11:00 [id number]:11:00 [facility])EMERGENCY PROVIDER REPORTREPORT#:[id number] REPORT STATUS: SignedDATE:05/19/20 TIME: 1211 PATIENT: BREANNA QUEEN UNIT #: [id number]#: [id number] ROOM/BED:AGE: 30 SEX: F PCP PHYS: Brayan Winn MDSERVICE AUTHOR: Sawyer Centeno II, MD * ALL edits or amendments must be made on the electronic/computer document * HPI-Abd Pain F Under 40 Free Text HPI NotesFre e Text HPI NotesThe patient tells me she has a history of gastroparesis but is not a diabetic. She tells me that she is from [facility] and that she has GI specialist in [facility] whose name is Dr. Hendrix. She tells me she used to ge t Botox injections in her pilorus to treat her pain. She tells me she went to a local hospital yesterday and got several medications for pain but the pain did not getany better. GeneralConfirmed Patient YesInitial Greet Date/Time 05/19/20 1129PCBella [place] PresentationChief Complaint Abdominal painHx Obtained From PatientSudden in Onset? NoOnset Occurred ChronicSymptom Duration Waxes and wanesProgression since Onset Waxes and wanesCaused by No trauma by historyLocation DiffuseQuality Same as prior, AchingRadiationDoe s not radiate. Exacerbated by NothingRelieved by Nothing Risk-Abd Pain F Under 40)( Ectopic Risk factors reviewedCoronary Artery Disease Risk factors reviewed, No risk factorsThoracic Aortic Dissection Risk factors reviewed, No risk factors Review of Systems ROS StatementsAll systems rev neg except as marked. Focused Review of SystemsConstitutionalDenies: Chills, Fatigue, Fever, Lethargy, Malaise, Recen t wt loss, Weakness - generalized. RespiratoryDenies: Cough, non-productive, Cough, productive, Dyspnea on exertion, Hemoptysis, Parox nocturnal dyspnea, Pleuritic pain, Shortness of breath, Wheezing. CardiovascularDenies: Chest pain, Dyspnea on exertion, Edema, Orthopnea, Palpitations, Parox nocturnal dyspnea, Syncope. GIReports: Abdominal pain. Denies: Diarrhea, Nausea, Vomiting. FemaleDenies: Dysuria, Flank pain, Hematuria. MusculoskeletalDenies: Back pain, Lumbar pain, Neck pain. Past Medical History - AdultStated Complaint ABD PAIN AND NAUSEAAllergiesCoded Allergies:scopolamine (Mild, RASH-HIVES 05/19/20 ) Review of Nursing Notes Rev avail, and agreeAdditional Medical HistoryGastroparesisPast Surgical History:Reports: Cholecystectomy. Physical Exam Vital SignsVital SignsFirst Documented: Result Date Time Pulse Ox 98 05/19 1128 B/P 158/101 05/19 1128 B/P Mean 120 05/19 1128 Temp 36.9 05/19 112 Pulse 84 05/19 1128 Resp 18 05/20 1127 Last Documented: Result Date Time Pulse Ox 98 05/19 1128 B/P 158/101 04/10 1128 B/P Mean 120 05/20 1127 Temp 36.9 05/19 112 8 Pulse 84 05/20 1127 Resp 18 05/20 1127 Review o f Vital Signs Reviewed Focused PEGeneral/Const General/Const Awake, Alert, No acute distress, Well appearing, Well developedMS Head Head Atraumatic, NormocephalicEyes Eyes Atraumatic, PERRL, EOMIEars/Nose/Throat Ears/Nose/Throat Atraumatic, Airway patent, Mucous membranes moistResp/Chest Respiratory/Chest Atraumatic, Breath sounds NL, Breath sounds = bilat, No respiratory distressCardiovascular Cardiovascular Heart rate NL, Regular rhythm, Heart sounds NLAbdomen/GI Abdomen/GI Atraumatic, Soft, Non-tender, McBurney's non-tender, No guarding, No rebound, BS normoactiveMS Back Back Atraumatic, Inspectio n NL, Full range of motionSkin Skin Atraumatic, Color NL, No rashNeurologic Neurologic Oriented X3, Speech NL, No motor deficits, No sensory deficits Interpretation Diagnostics Lab Results InterpretationResultsLaboratory Tests 05/19/20 1140:[Embedded Image Not Available]Laboratory Tests: 05/19 05/19 1242 1242 Toxicology Urine Opiates Screen (NEGATIVE ng/ml) NEGATIVE Urine Barbiturates (NEGATIVE ng/ml) NEGATIVE Ur Phencyclidine Scrn (NEGATIVE ng/ml) NEGATIVE Ur Amphetamine Screen (NEGATIVE ng/dl) NEGATIVE U Benzodiazepines Scrn (NEGATIVE ng/ml) NEGATIVE Urine Cocaine Screen (NEGATIVE ng/ml) NEGATIVE U Cannabinoids Screen (NEGATIVE ng/ml) POSITIVE H Ketones (NEGATIVE mg/dl) 80 H Urines Urine Color (YELLOW) DK YELLOW Urine Appearance (CLEAR) SL HAZY Urine pH (4.6 - 8.0) 6.0 Ur Specific Gravit y (1.001 - 1.035) >= 1.030 Urine Protein (NEGATIVE mg/dl) 100 H Urine Glucose (UA) (NORMAL mg/dl) NEGATIVE Urine Blood (NEGATIVE /UL) TRACE Urine Nitrite (NEGATIVE) NEGATIVE Urine Bilirubin (NEGATIVE mg/dl) LARGE Urine Ictotest (NEGATIVE ) POSITIVE H Urine Urobilinogen (NORMAL mg/dl) 1.0 Ur Leukocyte Esterase (NEGATIVE /UL) NEGATIVE Urine RBC (0 - 5 #/hpf) 3-5 Urine WBC (0 - 5 #/hpf) 0-2 Ur Epithelial Cells (NEG,FEW /hpf) FE W Urine Bacteria (NEGATIVE /hpf) FEW H Urine Mucus (NEG,FEW /hpf) 1+ H Urine HCG, Qual (NEGATIVE) NEGATIVE Urine Comment CLN CATCH 05/19 1140 Chemistry Sodium (136 - 145 mmol/L) 137 Potassiu m (3.5 - 5.1 mmol/L) 4.0 Chloride (98 - 107 mmol/L ) 100 Carbon Dioxide (21 - 32 mmol/L) 21 BUN (7 - 18 mg/dL) 14 Creatinine (0.55 - 1.02 mg/dl) 0.6 4 Estimated GFR (MDRD) (>=60) > 60.00 Glucose [...] g/dl) 8.1 Albumin (3.4 - 5.0 g/dl) 3. 6 Lipase (73 - 393 U/L) 67 L Hematology WBC (4.5 - 11.0 X10(3)) 10.3 RBC (4.2 - 5.4 X10(6)) 4.55 Hgb (12.5 - 16.0 g/dL) 13.0 Hct (37.0 - 47.0 %) 40.3 MCV (78 - 100 fL) 88.6 MCH (26.0 - 34.0 pg ) 28.6 MCHC (30.0 - 37.0 g/dl) 32.3 RDW (11.5 - 14.5 %) 13.5 Plt Count (150 - 350 X10(3)) 256 MP V (8.7 - 11.4 fl) 11.5 H Neut % (Auto) (36.0 - 66. 0 %) 86.0 H Lymph % (Auto) (16 - 50 %) 9.5 L [place] % (Auto) (0.0 - 13.0 %) 4.3 Eos % (Auto) (0.0 - 4.5 %) 0.0 Baso % (Auto) (0.0 - 1.5 %) 0.1 Immature Gran # (Auto) (0.00 - 0.03 X10(3)uL) 0.01 Absolute Neuts (auto) (1.7 - 7.7 X10(3)) 8.8 H Absolute Lymphs (auto) (1.0 - 4.8 X10(3)) 1.0 Absolute Monos (auto) (0.0 - 0.89 X10(3)) 0. 4 Absolute Eos (auto) (0.0 - 0.6 X10(3)) 0.0 Absolute Basos (auto) (0.0 - 0.2 X10(3)) 0.0 Immature Gran % (0.0 - 2.0 %) 0.1 RBC Morpholog y (NORMAL) NO Recent Impressions:RADIOLOGY - XR ABDOMEN 2V 05/19 1212 Report Impression - Status: SIGNED Entered: 05/19/2020 1219 IMPRESSION:No acute process. Location: [id number] By: Emily CABALLERO M.D. Imaging StatementRadiographic studies reviewed and considered in the medical decision-making. Lab Imaging StatementLaboratory radiographic studies reviewed and considered in the medical decision-making. Re-Evaluation MDM ) ( Re-Evaluation/Progress #1Time of Re-Eval 1258)( Re-Eval Status ImprovedPlan Post Re-Eval Plan discharge ED CourseMedication(s) OrderedMedication(s) Ordered:Antihistamine Drugs Sig/Ayanna Start time Last Medication Dose Route Stop Time Status Admin Diphenhydramine HCl 50 MG X1ED STA 05/19 1212 DC 05/19 IV 05/19 1213 1239 Electrolytic, Caloric, And Elvia Sig/Ayanna Start juan carlos e Last Medication Dose Route Stop Time Status Admi n Sodium Chloride 1,000 ML X1ED STA 05/19 1212 DC 05/19 IV 05/19 1311 1239 Gastrointestinal Drugs Sig/Ayanna Start time Last Medication Dose Route Stop Time Status Admin Metoclopramide HCl 5 MG X1ED STA 05/19 1212 DC 05/19 IV 05/19 1213 1240 Patient Discharge Departure Vital Signs/ConditionVital SignsFirst Documented: Result Date Time Pulse Ox 98 05/19 1128 B/P 158/101 / 1128 B/P Mean 120 05/198 Temp 36.9 05/19 1128 Pulse 84 05/19 1128 Resp 18 04/ 0 1128 Last Documented: Result Date Time Pulse Ox 98 05/19 1128 B/P 158/101 04/ 1128 B/P Mean 12 0 05/198 Temp 36.9 05/19 1128 Pulse 84 05/19 1128 Resp 18 05/19 1128 All vital signs availabl e at the time of this entry have been reviewed. Condition Stable, Improved Clinical ImpressionClinical ImpressionPrimary Impression: Chronic generalized abdominal pain Disposition DecisionDischarge )( Discharged to Home Yes )( Time 1259 )( Date 05/19/20 Discharge/Care PlanCounseled Regarding Diagnosis, Lab results, Imaging studies, Prescriptions, Needfor follow-up, When to return to ED(Auto) PrescriptionsCurrent Visit ScriptsDICYCLOMINE (BENTYL) 20 MG PO QID 3 Days #12 TAB ONDANSETRON ODT (ZOFRAN ODT) 4 MG PO Q6H PRN PRN NAUSEA/VOMITING 3 Days #10 TABS Patient Instructions ED Chronic PainReferralsIsatu See MD: 2-3 DaysCall o r go to the office for appointment Departure FormsWORK/SCHOOL EXCUSE VARIABLE Discharge NoteI have spoken with the patient and/or caregivers. I have explained the patient'scondition, diagnoses and treatment plan based on the information available to meat this time. I have answered the patient's and/or caregiver's questions and addressed any concerns. The patient and/or caregivers have as good an understanding of the patient's diagnosis, condition and treatment bruce n as can beexpected at this point. The vital signs have been stable. The patient's condition is stable and appropriate for discharge from the emergency department. The patient will pursue further outpatient evaluation with the primary care physician or other designated or consulting physician as outlined in the discharge instructions. The patient and/or caregivers are agreeable to this planof care and follow-up instructions have been explained in detail. The patient and/or caregivers have received these instructions in written format and have expresse d an understanding of the discharge instructions. The patient and/or caregivers are aware that any significant change in condition or worsening of symptoms should prompt an immediate return to this or the closest emergency department or a call to 911. Quality MeasuresBP F/U for HTN F/u with PCP/other doc at 1708RPT #:[id number] OF REPORTEDEmergency department [id number]:11:00H.[id number] a ilable for patient [id number]:08:49 2019-07-30 21:12:00 [id number]:12:00 SAI Ellison [facility])EMERGENCY PROVIDER REPORTREPORT#:[id number] REPORT STATUS: SignedDATE:07/30/19 TIME: 2111 PATIENT: BREANNA JIMENEZ UNIT #: [id number]#: [id number] ROOM/BED:AGE: 29 SEX: F PCP PHYS: N o Primary or Family PhysicianSERVICE AUTHOR: Soha Rojas * ALL edits or amendments must be made on the electronic/computer document * HPI-Abd Pain F Under 40 GeneralConfirmed Patient YesPatient Typ e New patientInitial Greet Date/Time 07/30/19ssumed Care at Time 2111 Date 07/30/19 PresentationChief Complaint Abdominal pain, Nausea, Vomiting moderateHx Obtained From PatientSudden in Onset? YesOnset Occurred Today (4:30 PM)Symptom Duration Since onsetProgression since Onset UnchangedContext of Onset EatingCaused by No trauma by historyLocation EpigastricQuality Burning, CrampingRadiationNo: Does not radiate. Migration/Movement NoneSeverity: Onset MildSeverity: Current Pain level 8 out of 10Associated withReports: Nausea, Vomiting. Associated Other Pt denies other symptomsExacerbated by NothingRelieved by Mello ellison ContextImmunization Status General All up to dateRecent Healthcare Recent doctor visitSimilar Sx Previous YesPregnancy/Sexual Hx Last Menstrua l Period 06/24/19Additional ContextON CONTRO L Risk-Abd Pain F Under 40)( Ectopic Ris k factors reviewedCoronary Artery Disease Risk factors reviewedThoracic Aortic Dissection Risk factors reviewed Review of Systems ROS StatementsAll systems rev neg except as marked.Complete sys rev neg except as marked. Basic Review of SystemsBasic ROS EYES: No redness, ENT: No sore throat, HEM: No bleeding/bruising, SKIN: No rash, NEURO: No change MS, NEURO: No focal deficit, PSYCH: NL thought content Focused Review of SystemsConstitutionalDenies: Fever, Weakness - generalized. RespiratoryDenies: Dyspnea on exertion, Shortness of breath. CardiovascularDenies: Dyspnea on exertion. GIReports: Abdominal pain, Nausea, Vomiting. FemaleDenies: Dysuria, Flank pain. MusculoskeletalDenies: Back pain, Extremity pain , Lumbar pain. Past Medical History - AdultStated Complaint ABDAllergiesCoded Allergies:No Known Allergies (07/30/19) Home MedicationsReported MedicationsAMOXICILLIN/CLAV K (AUGMENTIN 875/125 MG) 1 TAB PO Q12H PANTOPRAZOLE DR (PROTONIX) 20 MG PO DAILY [ASHKAN] Review of Nursing Notes Rev avail, and agreeAlcohol Use Denies EtOH useDrug Use Denies recreational drugsSmoking status for patients 13 years old or older: Never SmokerAmbulatory Status Independent Physical Exa m Vital SignsVital SignsFirst Documented: Result Date Time Pulse Ox 98 07/29 2114 B/P 116/76 07/29 2114 B/P Mean 89 07/29 2114 O2 Delivery Room air 07/29 2114 Temp 36.2 07/29 2114 Pulse 7 8 07/29 2114 Resp 18 07/29 2114 Last Documented: Result Date Time Pulse Ox 100 07/29 2252 B/P 118/80 07/29 2252 B/P Mean 92 07/29 2252 Pulse 86 07/29 2252 Resp 16 07/29 2252 O2 Delivery Misty m air 07/29 2114 Temp 36.2 07/29 2114 Review of Vital Signs Reviewed Basic Physical ExamBasic PE HEAD: Atraumatic/NC, EYES: PERRL, conj clear, ENT: Membranes moist, NECK: Supple, EXT: No ahsan s abnormality, SKIN: No rashes, warm/dry, NEURO: alert oriented, NEURO: gross movement NL, PSYCH: NL thought content Focused PEGeneral/Const General/Const Awake, Alert, Well appearing, Well developed, Well nourished, Cooperative, Not toxi c appearing Appearance/Presentation Appears older than age. MS Head Head NormocephalicEyes Eyes PERRL, No nystagmusEars/Nose/Throat Ears/Nose/Throat Airway patent, Mucous membranes moist, Pharynx NLResp/Chest Respiratory/Chest Breath sounds NL, No respiratory distressCardiovascular Cardiovascular Regular rhythm, Heart sounds NLAbdomen/GI Abdomen/GI Soft Tenderness/Guarding/Rebound Tender epigastric. MS Back Back Inspection NL, Full range of motionSkin Skin Color NL, No rash, Warm , Dry, Intact, Turgor NL, No swellingNeurologic Neurologic Oriented X3, Speech NL, No motor deficits, No sensory deficits Interpretation Diagnostics Lab Results InterpretationResultsLaboratory Tests 07/30/192128:[Embedded Image Not Available]Laboratory Tests: 07/29 Chemistry Sodium (136 - 145 mmol/L) 136 Potassium (3.5 - 5.1 mmol/L) 3.4 L Chloride (98 - 107 mmol/L) 104 Carbon Dioxide (21 - 32 mmol/L) 24 BUN (7 - 18 mg/dL) 9 Creatinine (0.51 - 0.95 mg/dL) 0.70 Estimated GFR (MDRD) (>=60) > 60.00 Glucose (70 - 100 mg/dL) 125 H Calcium (8.5 - 10.1 mg/dL) 9. 3 Total Bilirubin (0.2 - 1.0 mg/dl) 1.2 [...] 7.7 RBC (4.2 - 5.4 X10(6)) 4.45 Hg b (12.5 - 16.0 g/dL) 13.3 Hct (37.0 [...] (Auto) (16.0 - 50.0 %) 15.3 L Mon o % (Auto) (0.0 - 13.0 %) 5.2 Eos % (Auto) (0.0 - 4.5 %) 0.1 Baso % (Auto) (0.0 - 1.5 %) 0.3 Immature Gran # (Auto) (0.00 - 0.03 X10(3)uL) 0.02 Absolute Neuts (auto) (1.70 - 7.70 X10(3)) 6.07 Absolute Lymphs (auto) (0.70 - 4.00 X10(3)) 1.18 Absolute Monos (auto) (0.00 - 0.89 X10(3)) [...] pH (4.6 - 8.0) 6.0 Ur Specific [place] (1.001 - 1.035) 1.017 Urine Protein (NEGATIVE [...] H Urine Mucus (NEG,FEW /hpf) 2+ H Urin e Comment CLN CATCH Point of Care TestingUrinalysi s Interpretation Urinalysis NL Re-Evaluation MDM ) ( Re-Evaluation/Progress #1Time of Re-Eval 2228)( Re-Eval Status ImprovedRe-Eval Abdomen SoftEval Following Treatment Pt. feels better, Condition improvedPain Re-Evaluation Pain improvedPlan Pos t Re-Eval Plan discharge Abd Pain MDM Note F < 40The patient is resting comfortably and feels better, is alert and in no distress. The repeat examination is unremarkable and benign; in particular, there is no discomfort at McBurney's point. The history, exam, diagnostic testing, an d current condition do not suggest acute appendicitis, bowel obstruction, tubovarian abscess, ectopic , ovarian torsion, acute cholecystitis, bowel perforation, major gastrointestinal bleeding, severe diverticulitis , sepsis, or other significant pathology to warran t further testing, continued ED treatment, admission, or surgical evaluation at this point. The vital signs have been stable. The patient does not have uncontrollable pain, intractable vomiting, or other significant symptoms. The patient's condition is stable and appropriate fo r discharge. The patient will pursue further outpatient evaluation with the primary care physician or other designated or consulting physician as indicated in the discharge instructions. Tissue Perfusion ReassessmentPatient tissue perfusion reassessmen t completed. ED CourseMedication(s) OrderedMedication(s) Ordered:Cardiovascular Drug s Sig/Ayanna Start time Last Medication Dose Route Stop Time Status Admin Lidocaine HCl 10 ML X1ED STA 07/29 2113 DC PO 07/29 2114 Central Nervous System Agents Sig/Ayanna Start time Last Medication Dose Route Stop Time Status Admin Ketorolac 30 M G X1ED STA 07/29 2332 DC 07/29 Tromethamine IV 07/29 2333 233 Promethazine HCl 25 MG X1ED STA 07/29 2257 DCr 07/29 IM 07/29 Ketorola c 30 MG X1ED STA 07/29 2114 DC 07/29 Tromethamine IV 07/29 Electrolytic, Caloric, And Wa t Sig/Ayanna Start time Last Medication Dose Route Stop Time Status Admin Potassium Chloride 20 MEQ X1ED STA 07/29 2228 DC PO 07/29 2229 Sodium Chloride 1,000 ML X1ED STA 07/29 2113 DC 07/29 I V 07/29 Gastrointestinal Drugs Sig/Ayanna Start time Last Medication Dose Route Stop Time Status Admin Al Hydrox/Mg Hydrox/ 30 ML X1ED STA 07/29 2113 DC Simethicone PO 07/29 2114 Famotidine 20 MG X1ED STA 07/29 2113 DC 07/29 IV 07/29 Ondansetron HCl 4 MG X1ED STA 07/29 2113 DC 07/29 IV 07/29 Patient Discharge Departure Vital Signs/ConditionVital SignsFirst Documented: Result Date Time Pulse Ox 98 07/29 2114 B/P 116/76 07/29 2114 B/P Mean 89 07/29 2114 O2 Delivery Room air 07/29 2114 Temp 36.2 07/29 2114 Pulse 78 07/29 2114 Resp 18 07/29 2114 Last Documented: Result Date Time Pulse Ox 100 07/29 2252 B/P 118/80 07/29 2252 B/ P Mean 92 07/29 2252 Pulse 86 07/29 2252 Resp 16 07/29 2252 O2 Delivery Room air 07/29 2114 Temp 36.2 07/29 2114 All vital signs available at the time of this entry have been reviewed. Condition Stable Clinical ImpressionClinical ImpressionPrimary Impression: GastritisTime of Impression 2304 Disposition DecisionDischarge )( Discharged to Home Yes )( Time 2304 )( Date 07/30/19 Discharge/Care PlanCounseled Regarding Diagnosis, Lab results, Prescriptions, Need for follow-up, When to return to EDPrescriptionsPEDIALYTE, FAMOTIDINE, ZOFRAN, MAALOXPrescriptions Reviewed Risks, Benefits, Alternative treatmentReferralsNo Primary or Family Physician (PCP) Discharge NoteI have spoken with the patient and/or caregivers. I hav e explained the patient'scondition, diagnoses and treatment plan based on the information availabl e to meat this time. I have answered the patient's and/or caregiver's questions and addressed any concerns. The patient and/or caregivers have as good an understanding of the patient's diagnosis , condition and treatment plan as can beexpected a t this point. The vital signs have been stable. Th e patient's condition is stable and appropriate fo r discharge from the emergency department. The patient will pursue further outpatient evaluatio n with the primary care physician or other designated or consulting physician as outlined i n the discharge instructions. The patient and/or caregivers are agreeable to this planof care and follow-up instructions have been explained in detail. The patient and/or caregivers have received these instructions in written format an d have expressed an understanding of the discharge instructions. The patient and/or caregivers are aware that any significant change in condition o r worsening of symptoms should prompt an immediate return to this or the closest emergency department or a call to 911. at 0000RPT #:[id number] OF REPORTEDEmergenc y department [id number]:12:00H.[id number] a ilable for patient [id number]:00:25 2019-07-30 21:12:00 [id number]:12:00 [facility])EMERGENCY PROVIDER REPORTREPORT#:[id number] REPORT STATUS: SignedDATE:07/30/19 TIME: 2111 PATIENT: BREANNA JIMENEZ UNIT #: [id number]#: [id number] ROOM/BED:AGE: 29 SEX: F PCP PHYS: N o Primary or Family PhysicianSERVICE AUTHOR: Soha Rojas * ALL edits or amendments must be made on the electronic/computer document * HPI-Abd Pain F Under 40 GeneralConfirmed Patient YesPatient Typ e New patientInitial Greet Date/Time 07/30/19ssumed Care at Time 2111 Date 07/30/19 PresentationChief Complaint Abdominal pain, Nausea, Vomiting moderateHx Obtained From PatientSudden in Onset? YesOnset Occurred Today (4:30 PM)Symptom Duration Since onsetProgression since Onset UnchangedContext of Onset EatingCaused by No trauma by historyLocation EpigastricQuality Burning, CrampingRadiationNo: Does not radiate. Migration/Movement NoneSeverity: Onset MildSeverity: Current Pain level 8 out of 10Associated withReports: Nausea, Vomiting. Associated Other Pt denies other symptomsExacerbated by NothingRelieved by Mello ellison ContextImmunization Status General All up to dateRecent Healthcare Recent doctor visitSimilar Sx Previous YesPregnancy/Sexual Hx Last Menstrua l Period 06/24/19Additional ContextON CONTRO L Risk-Abd Pain F Under 40)( Ectopic Ris k factors reviewedCoronary Artery Disease Risk factors reviewedThoracic Aortic Dissection Risk factors reviewed Review of Systems ROS StatementsAll systems rev neg except as marked.Complete sys rev neg except as marked. Basic Review of SystemsBasic ROS EYES: No redness, ENT: No sore throat, HEM: No bleeding/bruising, SKIN: No rash, NEURO: No change MS, NEURO: No focal deficit, PSYCH: NL thought content Focused Review of SystemsConstitutionalDenies: Fever, Weakness - generalized. RespiratoryDenies: Dyspnea on exertion, Shortness of breath. CardiovascularDenies: Dyspnea on exertion. GIReports: Abdominal pain, Nausea, Vomiting. FemaleDenies: Dysuria, Flank pain. MusculoskeletalDenies: Back pain, Extremity pain , Lumbar pain. Past Medical History - AdultStated Complaint ABDAllergiesCoded Allergies:No Known Allergies (07/30/19) Home MedicationsReported MedicationsAMOXICILLIN/CLAV K (AUGMENTIN 875/125 MG) 1 TAB PO Q12H PANTOPRAZOLE DR (PROTONIX) 20 MG PO DAILY [ASHKAN] Review of Nursing Notes Rev avail, and agreeAlcohol Use Denies EtOH useDrug Use Denies recreational drugsSmoking status for patients 13 years old or older: Never SmokerAmbulatory Status Independent Physical Exa m Vital SignsVital SignsFirst Documented: Result Date Time Pulse Ox 98 07/29 2114 B/P 116/76 06/2 0 2114 B/P Mean 89 07/29 2114 O2 Delivery Room ai r 07/29 2114 Temp 36.2 07/29 2114 Pulse 78 07/29 2114 Resp 07/29 Last Documented: Result Date Time Pulse Ox 100 07/29 2252 B/P 118/80 07/29 2252 B/P Mean 92 07/29 2252 Pulse 86 07/29 2252 Resp 16 07/29 2252 O2 Delivery Room air 07/29 2114 Temp 36.2 07/29 2114 Review of Vital Signs Reviewed Basic Physical ExamBasic PE HEAD: Atraumatic/NC, EYES: PERRL, conj clear, ENT: Membranes moist, NECK: Supple, EXT: No gross abnormality, SKIN: No rashes, warm/dry, NEURO: alert oriented, NEURO: gross movement NL, PSYCH: NL thought content Focused PEGeneral/Const General/Const Awake, Alert, Well appearing, Well developed, Well nourished, Cooperative, Not toxi c appearing Appearance/Presentation Appears older than age. MS Head Head NormocephalicEyes Eyes PERRL, No nystagmusEars/Nose/Throat Ears/Nose/Throat Airway patent, Mucous membranes moist, Pharynx NLResp/Chest Respiratory/Ches t Breath sounds NL, No respiratory distressCardiovascular Cardiovascular Regular rhythm, Heart sounds NLAbdomen/GI Abdomen/GI Soft Tenderness/Guarding/Rebound Tender epigastric. MS Back Back Inspection NL, Full range of motionSkin Skin Color NL, No rash, Warm , Dry, Intact, Turgor NL, No swellingNeurologic Neurologic Oriented X3, Speech NL, No motor deficits, No sensory deficits Interpretation Diagnostics Lab Results InterpretationResultsLaboratory Tests 07/30/192128:[Embedded Image Not Available]Laboratory Tests: 07/29 Chemistry Sodium (136 - 145 [...] ALT (12 - 78 U/L) 29 Alkaline Phosphatas e (50 - 136 U/L) 69 Total Protein (6.4 - 8.2 g/dl ) 7.8 Albumin (3.4 - 5.0 g/dl) 3.7 Lipase (73 - 39 3 U/L) 63 L Hematology WBC (4.5 - 11.0 X10(3)) 7. 7 RBC (4.2 - 5.4 X10(6)) 4.45 Hgb (12.5 - 16.0 g/dL) 13.3 Hct (37.0 - 47.0 %) 40.2 MCV (78 - 10 0 fl) 90.3 MCH (26.0 - 34.0 pg) 29.9 MCHC (30.0 - 37.0 g/dl) 33.1 RDW (11.5 - 14.5 %) 13.1 Plt Count (150 - 350 X10(3)) 192 MPV (8.7 - 11.4 fl) 12.9 H Neut % (Auto) (36.0 - 66.0 %) 78.8 H Lymp h % (Auto) (16.0 - 50.0 %) 15.3 L Crook % (Auto) (0.0 - 13.0 %) 5.2 Eos % (Auto) (0.0 - 4.5 %) 0.1 Baso % (Auto) (0.0 - 1.5 %) 0.3 Immature Gra n # (Auto) (0.00 - 0.03 X10(3)uL) 0.02 Absolute Neuts (auto) (1.70 - 7.70 X10(3)) 6.07 Absolute Lymphs (auto) (0.70 - 4.00 X10(3)) 1.18 Absolute Monos (auto) (0.00 - 0.89 X10(3)) 0.40 Absolute Eos (auto) (0.00 - 0.60 X10(3)) 0.01 Absolute Basos (auto) (0.00 - 0.20 X10(3)) 0.02 Absolute Nucleated RBC (0.0 - 0.1 K/mm3) 0.00 Immature Gran % (0.0 - 2.0 %) 0.3 Nucleated RBC % (0 - 0. 2 %) 0.0 Toxicology Ketones (NEGATIVE mg/dl) 60 Urines Urine Color (YELLOW) YELLOW Urine Appearance (CLEAR) CLEAR Urine pH (4.6 - 8.0) 6. 0 Ur Specific [place] (1.001 - 1.035) 1.017 Urine Protein (NEGATIVE [...] /hpf) 2+ H Urine Comment CLN CATCH Poin t of Care TestingUrinalysis Interpretation Urinalysis NL Re-Evaluation MDM )( Re-Evaluation/Progress #1Time of Re-Eval 2228)( Re-Eval Status ImprovedRe-Eval Abdomen SoftEval Following Treatment Pt. feels better, Condition improvedPain Re-Evaluation Pain improvedPlan Pos t Re-Eval Plan discharge Abd Pain MDM Note F < 40The patient is resting comfortably and feels better, is alert and in no distress. The repeat examination is unremarkable and benign; in particular, there is no discomfort at McBurney's point. The history, exam, diagnostic testing, an d current condition do not suggest acute appendicitis, bowel obstruction, tubovarian abscess, ectopic , ovarian torsion, acute cholecystitis, bowel perforation, major gastrointestinal bleeding, severe diverticulitis , sepsis, or other significant pathology to warran t further testing, continued ED treatment, admission, or surgical evaluation at this point. The vital signs have been stable. The patient does not have uncontrollable pain, intractable vomiting, or other significant symptoms. The patient's condition is stable and appropriate fo r discharge. The patient will pursue further outpatient evaluation with the primary care physician or other designated or consulting physician as indicated in the discharge instructions. Tissue Perfusion ReassessmentPatient tissue perfusion reassessmen t completed. ED CourseMedication(s) OrderedMedication(s) Ordered:Cardiovascular Drug s Sig/Ayanna Start time Last Medication Dose Route Stop Time Status Admin Lidocaine HCl 10 ML X1ED STA 07/29 2113 DC PO 07/29 2114 Central Nervous System Agents Sig/Ayanna Start time Last Medicatio n Dose Route Stop Time Status Admin Ketorolac 30 M G X1ED STA 07/293 DC 07/29 Tromethamine IV 07/29 2334 2336 Promethazine HCl 25 MG X1ED STA 07/298 DCr 07/29 IM 07/29 Ketorola c 30 MG X1ED STA 07/29 2114 DC 07/29 Tromethamine IV 07/29 Electrolytic, Caloric, And Wa t Sig/Ayanna Start time Last Medication Dose Route Stop Time Status Admin Potassium Chloride 20 MEQ X1ED STA 07/29 2228 DC PO 07/29 2229 Sodium Chloride 1,000 ML X1ED STA 07/29 2113 DC 07/29 I V 07/29 2212 213 Gastrointestinal Drugs Sig/Ayanna Start time Last Medication Dose Route Stop Time Status Admin Al Hydrox/Mg Hydrox/ 30 ML X1ED STA 07/29 2113 DC Simethicone PO 07/29 2114 Famotidine 20 MG X1ED STA 07/29 2113 DC 07/29 IV 07/29 Ondansetron HCl 4 MG X1ED STA 07/29 2113 DC 07/29 IV 07/29 Patient Discharge Departure Vital Signs/ConditionVital SignsFirst Documented: Result Date Time Pulse Ox 98 07/29 2114 B/P 116/76 07/29 2114 B/P Mean 89 07/29 2114 O2 Delivery Room air 07/29 2114 Temp 36.2 07/29 2114 Pulse 78 07/29 2114 Resp 18 2 0 2114 Last Documented: Result Date Time Pulse Ox 100 07/29 2252 B/P 118/80 07/29 2252 B/P Mean 92 07/29 2252 Pulse 86 07/29 2252 Resp 16 07/29 2252 O2 Delivery Room air 07/29 2114 Temp 36.2 07/29 2114 All vital signs available at the time of this entry have been reviewed. Condition Stable Clinical ImpressionClinical ImpressionPrimary Impression: GastritisTime of Impression 2304 Disposition DecisionDischarge )( Discharged to Home Yes )( Time 2304 )( Date 07/30/19 Discharge/Care PlanCounseled Regarding Diagnosis, Lab results, Prescriptions, Need for follow-up, When to return to EDPrescriptionsPEDIALYTE, FAMOTIDINE, ZOFRAN, MAALOXPrescriptions Reviewed Risks, Benefits, Alternative treatmentReferralsNo Primary or Family Physician (PCP) Discharge NoteI have spoken with the patient and/or caregivers. I hav e explained the patient'scondition, diagnoses and treatment plan based on the information availabl e to meat this time. I have answered the patient's and/or caregiver's questions and addressed any concerns. The patient and/or caregivers have as good an understanding of the patient's diagnosis , condition and treatment plan as can beexpected a t this point. The vital signs have been stable. Th e patient's condition is stable and appropriate fo r discharge from the emergency department. The patient will pursue further outpatient evaluatio n with the primary care physician or other designated or consulting physician as outlined i n the discharge instructions. The patient and/or caregivers are agreeable to this planof care and follow-up instructions have been explained in detail. The patient and/or caregivers have received these instructions in written format an d have expressed an understanding of the discharge instructions. The patient and/or caregivers are aware that any significant change in condition o r worsening of symptoms should prompt an immediate return to this or the closest emergency department or a call to 911. at 0000 at 0024RPT #:[id number] OF REPORTEDEmergency department [id number]:12:00H.[id number] a ilable for patient [id number]:24:32
--- NOTE | 2022-12-30 00:03 | ER ---
Nurse's Notes [facility] Name: Efrem Pastor Age: 32 yrs Sex: Female : 1990 Arrival Date: 12/29/2022 Time: 23:44 Bed IW1 Private MD: Diagnosis: Herpesviral gingivostomatitis and pharyngotonsillitis Presentation: 12/29 23:59 Chief complaint: Patient states: mouth ulcers for several weeks reports on various kl antibiotics no improvement in pain level. Coronavirus screen: Vaccine status: Patient reports receiving the 2nd dose of the covid vaccine. Ebola Screen: Patient negative for fever greater than or equal to 101.5 degrees Fahrenheit, and additional compatible Ebola Virus Disease symptoms. Initial Sepsis Screen: Does the patient meet any 2 criteria? No. Patient's initial sepsis screen is negative. Does the patient have a suspected source of infection? No. Patient's initial sepsis screen is negative. Risk Assessment: Do you want to hurt yourself or someone else? Patient reports no desire to harm self or others. 23:59 Method Of Arrival: Ambulatory 23:59 Acuity: BELINDA 4 kl Triage Assessment: 12/30 00:01 General: Appears uncomfortable, Behavior is cooperative, anxious. Pain: Complains of kl pain in mouth. EENT: ulcers to mouth. Neuro: No deficits noted. Cardiovascular: No deficits noted. Respiratory: No deficits noted. GI: No deficits noted. : No deficits noted. No signs and/or symptoms were reported regarding the genitourinary system. Derm: No deficits noted. No signs and/or symptoms reported regarding the dermatologic system. Musculoskeletal: No deficits noted. No signs and/or symptoms reported regarding the musculoskeletal system. Historical: - Allergies: 00:00 Haldol; kl 00:00 Scopolamine HBr; kl - Home Meds: 00:00 Lunesta oral [Active]; Paxil Oral [Active]; Protonix Oral [Active]; Reglan Oral kl [Active]; - PMHx: 00:00 Gastroparesis; Irritable bowel syndrome; PTSD; kl - PSHx: 00:00 bilateral ureter attachment; Cholecystectomy; leep procedure; Lumpectomy of breast; kl right breast; - Immunization history:: Adult Immunizations not immunized. - Social history:: Smoking status: Reported history of juuling and/or vaping. Screenin:23 [facility] ED Fall Risk Assessment (Adult) History of falling in the last 3 months, kl including since admission No falls in past 3 months (0 pts) Confusion or Disorientation No (0 pts) Intoxicated or Sedated No (0 pts) Impaired Gait No (0 pts) Mobility Assist Device Used No (0 pt) Altered Elimination No (0 pt) Score/Fall Risk Level 0 - 2 = Low Risk Oriented to surroundings, Maintained a safe environment. Abuse screen: Denies threats or abuse. Nutritional screening: No deficits noted. Tuberculosis screening: No symptoms or risk factors identified. Assessment: 00:23 Reassessment: Patient appears in no apparent distress at this time. Vital Signs: 12/29 23:59 BP 115 / 92; Pulse 101; Resp 18; Temp 98.2(TE); Pulse Ox 98% on R/A; Weight 58.97 kg kl (R); Height 5 ft. 2 in. ; Pain 10/10; 23:59 Body Mass Index 23.78 (58.97 kg, 157.48 cm) kl 23:59 Pain Scale: Adult ED Course: 23:54 Patient arrived in ED. gm2 23:55 Nanda Arciniega [facility]NP-C [facility]. snw 23:55 Mario Santo MD is Attending Physician. snw 12/30 00:00 Triage completed. kl 00:23 Patient has correct armband on for positive identification. kl 00:23 Provided Education on: medication usage. kl 00:23 No provider procedures requiring assistance completed. Patient did not have IV access kl during this emergency room visit. Administered Medications: 00:15 Drug: Rocephin (cefTRIAXone) IM 1 grams IM once Route: IM; Site: right ventrogluteal; kl 00:24 Follow up: Response: No adverse reaction kl 00:15 Drug: Acyclovir PO 800 mg PO once Route: PO; kl 00:24 Follow up: Response: No adverse reaction kl 00:15 Drug: Sucralfate PO 1 grams PO once Route: PO; kl 00:23 Follow up: Response: No adverse reaction kl 00:15 Drug: Ibuprofen PO Suspension 10 mg/kg PO once Route: PO; kl 00:23 Follow up: Response: No adverse reaction Medication: 00:24 VIS not applicable for this client. Outcome: 00:02 Discharge ordered by . geri 00:24 Discharged to home ambulatory, kl 00:24 Condition: stable 00:24 Discharge instructions given to patient, Instructed on discharge instructions, follow up and referral plans. medication usage, Demonstrated understanding of instructions, follow-up care, medications, Prescriptions given X 4, 00:24 Patient left the ED. Signatures: Diana Helm RN RN Nanda Ye, CARGO AGENT-C CARGO AGENT-Sriw Vira Munson [facility]
--- NOTE | 2022-12-30 00:03 | EDPHYS ---
Physician Documentation [facility] Name: Efrem Pastor Age: 32 yrs Sex: Female : 1990 Arrival Date: 12/29/2022 Time: 23:44 Bed IW1 Private MD: ED Physician Mario Santo HPI: 12/30 00:56 This 32 yrs old Female presents to ER via Ambulatory with complaints of Mouth Problem. snw 00:56 The patient presents with pain, redness, ulceration. snw Historical: - Allergies: 00:00 Haldol; kl 00:00 Scopolamine HBr; kl - Home Meds: 00:00 Lunesta oral [Active]; Paxil Oral [Active]; Protonix Oral [Active]; Reglan Oral kl [Active]; - PMHx: 00:00 Gastroparesis; Irritable bowel syndrome; PTSD; kl - PSHx: 00:00 bilateral ureter attachment; Cholecystectomy; leep procedure; Lumpectomy of breast; kl right breast; - Immunization history:: Adult Immunizations not immunized. - Social history:: Smoking status: Reported history of juuling and/or vaping. ROS: 00:55 Cardiovascular: Negative for chest pain, palpitations, and edema, Respiratory: Negative snw for shortness of breath, cough, wheezing, and pleuritic chest pain, Abdomen/GI: Negative for abdominal pain, nausea, vomiting, diarrhea, and constipation, Back: Negative for injury and pain, : Negative for injury, bleeding, discharge, and swelling, MS/Extremity: Negative for injury and deformity, Skin: Negative for injury, rash, and discoloration, Neuro: Negative for headache, weakness, numbness, tingling, and seizure, Psych: Negative for depression, anxiety, suicide ideation, homicidal ideation, and hallucinations, 00:55 Constitutional: Negative for fever, chills, and weight loss, Eyes: Negative for injury, pain, redness, and discharge, ENT: Negative for injury and discharge, + ulcerations of lips, tongue, pharynx Neck: Negative for injury, pain, and swelling, Exam: 00:53 Constitutional: This is a well developed, well nourished patient who is awake, alert, snw and in no acute distress. Head/Face: Normocephalic, atraumatic. Eyes: Pupils equal round and reactive to light, extra-ocular motions intact. Lids and lashes normal. Conjunctiva and sclera are non-icteric and not injected. Cornea within normal limits. Periorbital areas with no swelling, redness, or edema. Neck: Trachea midline, no thyromegaly or masses palpated, and no cervical lymphadenopathy. Supple, full range of motion without nuchal rigidity, or vertebral point tenderness. No Meningismus. Chest/axilla: Normal chest wall appearance and motion. Nontender with no deformity. No lesions are appreciated. Cardiovascular: Tachycardic rate and rhythm with a normal S1 and S2. No gallops, murmurs, or rubs. Normal PMI, no JVD. No pulse deficits. Respiratory: Lungs have equal breath sounds bilaterally, clear to auscultation and percussion. No rales, rhonchi or wheezes noted. No increased work of breathing, no retractions or nasal flaring. Abdomen/GI: Soft, non-tender, with normal bowel sounds. No distension or tympany. No guarding or rebound. No evidence of tenderness throughout. Back: No spinal tenderness. No costovertebral tenderness. Full range of motion. Skin: Warm, dry with normal turgor. Normal color with no rashes, no lesions, and no evidence of cellulitis. MS/ Extremity: Pulses equal, no cyanosis. Neurovascular intact. Full, normal range of motion. Neuro: Awake and alert, GCS 15, oriented to person, place, time, and situation. Cranial nerves II-XII grossly intact. Motor strength 5/5 in all extremities. Sensory grossly intact. Cerebellar exam normal. Normal gait. Psych: Awake, alert, with orientation to person, place and time. Behavior, mood, and affect are within normal limits. 00:53 ENT: External ear(s): are unremarkable, Ear canal(s): are normal, TM's: are normal, Nose: is normal, Mouth: Oral mucosa: noted to have obvious stomatitis, noted to have ulceration(s), Posterior pharynx: erythema, that is moderate, ulcerations, Vital Signs: 12/29 23:59 BP 115 / 92; Pulse 101; Resp 18; Temp 98.2(TE); Pulse Ox 98% on R/A; Weight 58.97 kg kl (R); Height 5 ft. 2 in. ; Pain 10; 23:59 Body Mass Index 23.78 (58.97 kg, 157.48 cm) kl 23:59 Pain Scale: Adult kl MDM: 23:56 Patient medically screened. snw 12/30 00:52 ED course: rec'd steroids on 12/24 and 12/28, continued ulcerations and severe pain. snw 00:52 Differential diagnosis: aphthous ulcers, gingivostomatitis. Data reviewed: vital signs, snw nurses notes. I considered the following discharge prescriptions or medication management in the emergency department Medications were administered in the Emergency Department. See MAR. Counseling: I had a detailed discussion with the patient and/or guardian regarding the historical points, exam findings, and any diagnostic results supporting the discharge/admit diagnosis, the need for outpatient follow up, for definitive care, an allergy/metallurgical specialist, a fourth hand. Response to treatment: There is no appreciated change of the patient's symptoms at this time. Administered Medications: 00:15 Drug: Rocephin (cefTRIAXone) IM 1 grams IM once Route: IM; Site: right ventrogluteal; kl 00:24 Follow up: Response: No adverse reaction kl 00:15 Drug: Acyclovir PO 800 mg PO once Route: PO; kl 00:24 Follow up: Response: No adverse reaction kl 00:15 Drug: Sucralfate PO 1 grams PO once Route: PO; kl 00:23 Follow up: Response: No adverse reaction kl 00:15 Drug: Ibuprofen PO Suspension 10 mg/kg PO once Route: PO; kl 00:23 Follow up: Response: No adverse reaction kl Disposition: 02:38 Co-signature as Attending Physician, Mario Santo MD I agree with the assessment sp4 and plan of care. I reviewed the patient's care provided by the Advanced Practice Provider and agree with the diagnosis and treatment plan. Disposition Summary: 12/30/22 00:02 Discharge Ordered Notes: Location: Home snw Condition: Stable snw Diagnosis - Herpesviral gingivostomatitis and pharyngotonsillitis snw Followup: snw - With: Emergency Department - When: As needed - Reason: Worsening of condition Followup: snw - With: Private Physician - When: 1 - 2 days - Reason: Recheck today's complaints, Continuance of care, Re-evaluation by your physician Discharge Instructions: - Discharge Summary Sheet snw - Tonsillitis snw - Stomatitis snw Forms: - Medication Reconciliation Form snw - Thank You Letter snw - Antibiotic Education snw - Prescription Opioid Use snw - Patient Portal Instructions snw - Leadership Thank You Letter snw Prescriptions: - chlorhexidine gluconate 0.12 % subgingival-local Mouthwash - swish 15 milliliter ORAL route 2 times per day; 480 milliliter; Refills: 0, snw Product Selection Permitted - valacyclovir 1 gram Oral tablet - take 1 tablet ORAL route 3 times per day for 7 days; 21 tablet; Refills: 0, snw Product Selection Permitted - Augmentin 875-125 mg Oral Tablet - take 1 tablet ORAL route every 12 hours for 10 days; 20 tablet; Refills: 0, snw Product Selection Permitted - Carafate 1 gram Oral Tablet - take 1 tablet ORAL route 4 times per day take on an empty stomach, beginning on snw waking and last dose at bedtime; 100 tablet; Refills: 0, Product Selection Permitted Signatures: Diana Helm, RN RN Nanda Ye, GREENHOUSE TECHNICIAN-C GREENHOUSE TECHNICIAN-Csnw Mario Santo MD MD sp4
[2022-12-30] MEDS ORDERED: IBUPROFEN 100 MG/5 ML UCUP ONE (00:20)
[2022-12-30] MEDS ORDERED: CEFTRIAXONE 1000 MG/VIAL ONE (00:20)
[2022-12-30] MEDS ORDERED: SUCRALFATE 1 GM TABLET ONE (00:20)
[2022-12-30] MEDS ORDERED: ACYCLOVIR 400 MG TABLET ONE (00:20)
[2022-12-30] MEDS ORDERED: LIDOCAINE 1% MPF 2 ML AMPULE ONE (00:22)
[2022-12-30 00:56] VITALS: BP 115/92; TEMP 98.2; O2SAT 98
== END 2022-12-30 00:24 | disposition home or self-care (01) ==
LOC: ER 23:44
DX: B00.2 Herpesviral gingivostomatitis and pharyngotonsillitis (principal); Z79.899 Other long term (current) drug therapy; Z88.8 Allergy status to other drugs, medicaments and biological substances
CPT/HCPCS: 96372; 99284; J0696

== ENCOUNTER 2022-12-31 11:20 | Inpatient (IN) | payer BC ==
--- OUTSIDE RECORDS SUMMARY | 2022-12-31 11:25 | XMS REPORT | Continuity of Care Document ---
:[address] [facility] t Address [address] [facility] [address] [place] [address] Care Team Providers Name Role Phone Kelton [...] Branch haloperi DA Active SV HIVES [facility] dol 5-03 [facility] 00:00: [facility] scopolam DA Active SV [facility]ES [facility]03 [facility] 00:[facility] No Known DA Active U [facility] Allergie 1-01 [facility] s 00:00: [facility]ospita [facility] No Known DA Active U 0 [facility] Allergie 5-16 [facility] s 00:00: [facility] 00 [facility]ospita [facility] No Known DA Active U [facility] Allergie 5-16 [facility] s 00:00: Region[facility] 00 l Hospita l scopolam DA Active FL 0 [facility] in[facility] 4-10 [facility] 00:00: [facility] scopolam DA Active FL RASH-HIVES 0 [facility] ine 4-10 [facility] 00:00: [facility]a 00 l Hospita [facility] No Known DA Active U 0 [facility] Allergie 6-20 [facility] s 00:00: [facility]a 00 l Hospita [facility] No Known DA Active U 0 [facility] Allergie 6-20 [facility] s 00:00: Regiona 00 l Hospita l No Known DA Active U 0 [facility] Drug 9-15 [facility] Intolera 00:00: Regiona nces 00 l Hospita l No Known DA Active U NONE [facility] Drug 9-15 [facility] Intolera 00:00: Regiona nces 00 l Hospita l NO KNOWN Drug Active Univers ALLERGIE Class ity of S [facility] Social History Social Habit Start Date Stop Date Quantity Comments Source Sexual orientation [facility] Sex Assigned At [birth year] [facility] Medical Branch Smoking Status Start Date Stop Date Source Tobacco smoking consumption [facility] Medical unknown Branch Medications Ordered Filled [...] 12/26/22 at 1845, RONNIE hydrocortis 2022-02- Yes [id number] 15mL Take 15 mL Univers one 1 [...] 02:16:00 111 mm[Hg] Univer sity of pressure [facility] Diastolic blood 2022-12-27 02:16:00 82 mm[Hg] Unive rsity of pressure [facility] Heart rate 2022-12-27 02:16:00 93 /min [facility] Body temperature 2022-12-27 02:16:00 37.56 Caitlyn [facility] 2022-12-27 02:16:00 20 /min [facility] Oxygen saturation in 2022-12-27 02:16:00 96 /min [facility] Arterial blood by [facility] Pulse oximetry [place] Body height 2022-12-26 23:57:[address] [facility] Body weight 2022-12-26 23:57:[address] [facility] BMI 2022-12-26 23:57:00 23.78 kg/m2 [facility] Procedures Procedure Date / Time Performed Performing Clinician Sourc e CBC WITH DIFF 2022-12-27 01:49:00 Alex, [facility] o f [facility] RAPID STREP SCREEN 2022-12-27 00:59:00 Alex Marylou [facility] FOR GROUP A Medical Branch NOTICE OF PRIVACY 2022-12-26 23:28:27 Doctor Unassigned, No Univ [facility] PRACTICES Name Medical Branch CONSENT/REFUSAL FOR 2022-12-26 23:27:35 Doctor [facility]assigned, [facility] DIAG[facility]IS AND Name Medical Branch TREATMENT Encounters Start End Encounter Admission Attending Care Care Encounter Source Date/Time Date/Time Type Type Clinicians Facility Department ID 2020-06-24 Inpatient HCARG HCARG [id number] [facility] 15:53:22 64 [facility] 2020-05-19 Inpatient HCARG HC[facility] [id number] [facility] 11:42:02 19 [facility] 2019-07-30 Inpatient HCARG ER [id number] [facility] 21:08:00 63 [facility] 2022-12-26 2022-12-26 Emergency Alex, [facility] [id number] [facility] 17:57:00 20:20:00 Marylou SANTOS [id number] ity yvette [employer] [id number] [facility] [id number] [place] [address] Branch 2022-12-26 2022-12-26 Emergency X ALEX, [facility] ERT [id number] Univers 17:57:00 20:20:00 MARYLOU jaramillo of [facility] 2022-06-11 2022-06-11 Emergency EM Schultz, [facility] ER [id number] [facility] 11:10:00 12:41:00 Ted 63 [facility] 2021-02-09 2021-02-10 Emergency EM Sud[facility] [id number] [facility] 23:10:00 00:19:00 Kaelyn 49 [...] Suprapubic PainURINE SOURCE: CLEAN CATCH URINEUR HCG [id number] 11:54:00 Test Item Value Reference Range Interpretation Comments UR HCG QUAL (test code = HCGQLU) NEGATIVE NEGATIVE Indication for culture: Suprapubic PainURINE SOURCE: CLEAN CATCH URINE COMPREHENSIVE METABOLIC [id number] 11:49:00 Test Item Value Reference Range Interpretation [...] 45-117 N TOTAL (test code = ALKP) [id number] 11:49:00 Test Item Value Reference Range Interpretation Comments AMYLASE (test code = PARAM) 73 IU/L 25-115 N [id number] 11:49:00 Test Item Value Reference Range Interpretation Comments LIPASE (test code = LIP) 134 U/L 73-393 N CBC W/AUTO [id number] 11:33:00 Test Item Value Reference Range Interpretation [...] NO NORMAL code = RBCM) COMPREHENSIVE METABOLIC [id number] 16:11:00 Test Item Value Reference Range Interpretation [...] RESULT BY1.21. [Automated mess age] The system [employer] generated this result transmitted ref erence range: [...] 45-117 H TOTAL (test code = ALKP) [id number] 16:11:00 Test Item Value Reference Range Interpretation Comments LIPASE (test code = LIP) 108 U/L 73-393 N URINALYSIS W REFLEX [id number] 16:05:00 Test Item Value Reference Range Interpretation [...] UA MICRO code = UAMICRO) UR HCG [id number] 16:05:00 Test Item Value Reference Range Interpretation Comments UR HCG QUAL (test code = HCGQLU) NEGATIVE NEGATIVE URINALYSIS W REFLEX [id number] 16:05:00 Test Item Value Reference Range Interpretation [...] DO UA MICRO code = UAMICRO) UA [id number] 16:05:00 Test Item Value Reference Range Interpretation Comments UA WBC (test code = WBCU) 0-2 #/hpf 0-5 UA RBC (test code = RBCU) 0-2 #/hpf 0-5 UA EPITHELIAL CELLS (test code = 2+ /hpf NEG,FEW A EPIU) UA BACTERIA (test code = BACU) FEW /hpf NEGATIVE A UA AMORPHOUS SEDIMENT (test code = FEW /hpf NEG,FEW AMORU) UR HCG [id number] 16:05:00 Test Item Value Reference Range Interpretation Comments UR HCG QUAL (test code = HCGQLU) NEGATIVE NEGATIVE URINALYSIS W REFLEX [id number] 16:05:00 Test Item Value Reference Range Interpretation [...] UA MICRO code = UAMICRO) UR HCG [id number] 16:05:00 Test Item Value Reference Range Interpretation Comments UR HCG QUAL (test code = HCGQLU) NEGATIVE NEGATIVE DRUGS OF ABUSE [id number] 16:01:00 Test Item Value Reference Range Interpretation [...] NG/MLPHENCYCLID INE 25 NG/ML URINALYSIS W REFLEX [id number] 15:58:00 Test Item Value Reference Range Interpretation [...] NEEDED? (test code = UAMICRO) UR HCG [id number] 15:58:00 Test Item Value Reference Range Interpretation Comments UR HCG QUAL (test code = HCGQLU) NEGATIVE NEGATIVE CBC W/AUTO [id number] 15:52:00 Test Item Value Reference Range Interpretation [...] NORMAL code = RBCM) URINALYSIS W REFLEX [id number] 13:00:00 Test Item Value Reference Range Interpretation [...] MICRO code = UAMICRO) UA ICTOTEST FOR [id number] 13:00:00 Test Item Value Reference Range Interpretation Comments UA ICTOTEST FOR BILIRUBIN (test code POSITIVE NEGATIVE A = ICTOU) UA [id number] 13:00:00 Test Item Value Reference Range Interpretation Comments UA WBC (test code = WBCU) 0-2 #/hpf 0-5 UA RBC (test code = RBCU) 3-5 #/hpf 0-5 UA EPITHELIAL CELLS (test code = FEW /hpf NEG,FEW EPIU) UA BACTERIA (test code = BACU) FEW /hpf NEGATIVE A UA MUCUS (test code = MUCU) 1+ /hpf NEG,FEW A UR HCG [id number] 13:00:00 Test Item Value Reference Range Interpretation Comments UR HCG QUAL (test code = HCGQLU) NEGATIVE NEGATIVE DRUGS OF ABUSE [id number] 12:57:00 Test Item Value Reference Range Interpretation [...] NG/MLPHENCYCLID INE 25 NG/ML URINALYSIS W REFLEX [id number] 12:56:00 Test Item Value Reference Range Interpretation [...] MICRO code = UAMICRO) UA ICTOTEST FOR [id number] 12:56:00 Test Item Value Reference Range Interpretation Comments UA ICTOTEST FOR BILIRUBIN (test code POSITIVE NEGATIVE A = ICTOU) UR HCG [id number] 12:56:00 Test Item Value Reference Range Interpretation Comments UR HCG QUAL (test code = HCGQLU) NEGATIVE NEGATIVE URINALYSIS W REFLEX [id number] 12:53:00 Test Item Value Reference Range Interpretation [...] UA MICRO code = UAMICRO) UR HCG [id number] 12:53:00 Test Item Value Reference Range Interpretation Comments UR HCG QUAL (test code = HCGQLU) NEGATIVE NEGATIVE URINALYSIS W REFLEX [id number] 12:53:00 Test Item Value Reference Range Interpretation [...] UA MICRO code = UAMICRO) UR HCG [id number] 12:53:00 Test Item Value Reference Range Interpretation Comments UR HCG QUAL (test code = HCGQLU) NEGATIVE NEGATIVE - XR ABDOMEN [id number] 12:16:00 [facility] 1990 Sex: F FAX: Sawyer Centeno II [place]: [address] St: PRE Name: BREANNA QUEEN FSED : 1990 Age/S: 30/F [address] Unit #: [id number] Loc: [place] [address] Phys: Sawyer Centeno II, MD Acct: [id number] Dis Date: Status: PRE ER PHONE #: Exam Date: 05/19/2020 1212 FAX #: Reason: abdominal pain EXAMS: CPT CODE: [id number] XR ABDOMEN 2V 27212 - XR ABDOMEN 2V PROVIDED REASON FOR [...] RT Bekah (R) CT Trnscrd Date/Time/By: 05/19/2020 (9476) : By: [email or web address] Orig Print D/T: S: 05/19/2020 (9291) PAGE 1 Signed ReportBASIC METABOLIC PANEL 2020-05-19 [...] RESULT BY1.21. [Automated mess age] The system [employer] generated this result transmitted ref erence range: >=60. Th e reference range was not used to int erpret this result as normal/abnormal . CREATININE (test code 0.64 mg/dl 0.55-1.02 N = CREAT) CALCIUM (test code = 9.8 mg/dL 8.5-10.1 N CA) LIVER [id number] 12:08:00 Test Item Value Reference Range Interpretation [...] 119 U/L 45-117 H code = ALKP) [id number] 12:08:00 Test Item Value Reference Range Interpretation Comments LIPASE (test code = LIP) 67 U/L 73-393 L CBC W/AUTO [id number] 11:43:00 Test Item Value Reference Range Interpretation [...] NORMAL code = RBCM) URINALYSIS W REFLEX [id number] 22:06:00 Test Item Value Reference Range Interpretation [...] MUCU) 2+ /hpf NEG,FEW A BASIC METABOLIC [id number] 21:54:00 Test Item Value Reference Range Interpretation [...] = 9.3 mg/dL 8.5-10.1 N CA) LIVER [id number] 21:54:00 Test Item Value Reference Range Interpretation [...] 69 U/L 50-136 N code = ALKP) [id number] 21:54:00 Test Item Value Reference Range Interpretation Comments LIPASE (test code = LIP) 63 U/L 73-393 L BASIC METABOLIC [id number] 21:53:00 Test Item Value Reference Range Interpretation [...] = 9.3 mg/dL 8.5-10.1 N CA) LIVER [id number] 21:53:00 Test Item Value Reference Range Interpretation [...] TOTAL (test U/L 50-136 code = ALKP) [id number] 21:53:00 Test Item Value Reference Range Interpretation Comments LIPASE (test code = LIP) 63 U/L 73-393 L BASIC METABOLIC [id number] 21:52:00 Test Item Value Reference Range Interpretation [...] = 9.3 mg/dL 8.5-10.1 N CA) LIVER [id number] 21:52:00 Test Item Value Reference Range Interpretation [...] TOTAL (test U/L 50-136 code = ALKP) [id number] 21:52:00 Test Item Value Reference Range Interpretation Comments LIPASE (test code = LIP) 63 U/L 73-393 L BASIC METABOLIC [id number] 21:51:00 Test Item Value Reference Range Interpretation [...] = 9.3 mg/dL 8.5-10.1 N CA) LIVER [id number] 21:51:00 Test Item Value Reference Range Interpretation [...] TOTAL (test U/L 50-136 code = ALKP) [id number] 21:51:00 Test Item Value Reference Range Interpretation Comments LIPASE (test code = LIP) 63 U/L 73-393 L BASIC METABOLIC [id number] 21:49:00 Test Item Value Reference Range Interpretation [...] = CA) 9.3 mg/dL 8.5-10.1 N LIVER [id number] 21:49:00 Test Item Value Reference Range Interpretation [...] TOTAL (test U/L 50-136 code = ALKP) [id number] 21:49:00 Test Item Value Reference Range Interpretation Comments LIPASE (test code = LIP) 63 U/L 73-393 L BASIC METABOLIC [id number] 21:48:00 Test Item Value Reference Range Interpretation [...] = CA) 9.3 mg/dL 8.5-10.1 N LIVER [id number] 21:48:00 Test Item Value Reference Range Interpretation Comments TOTAL PROTEIN (test code = PROT) g/dl 6.4-8.2 ALBUMIN (test code = ALB) g/dl 3.4-5.0 BILIRUBIN TOTAL (test code = BILT) mg/dl 0.2-1.0 BILIRUBIN DIRECT (test code = BILD) mg/dl 0.0-0.4 SGOT/AST (test code = AST) U/L 15-37 SGPT/ALT (test code = ALT) U/L 12-78 ALKALINE PHOSPHATASE TOTAL (test code U/L 50-136 = ALKP) [id number] 21:48:00 Test Item Value Reference Range Interpretation Comments LIPASE (test code = LIP) U/L 73-393 BASIC METABOLIC [id number] 21:46:00 Test Item Value Reference Range Interpretation [...] (test code = CA) mg/dL 8.5-10.1 LIVER [id number] 21:46:00 Test Item Value Reference Range Interpretation Comments TOTAL PROTEIN (test code = PROT) g/dl 6.4-8.2 ALBUMIN (test code = ALB) g/dl 3.4-5.0 BILIRUBIN TOTAL (test code = BILT) mg/dl 0.2-1.0 BILIRUBIN DIRECT (test code = BILD) mg/dl 0.0-0.4 SGOT/AST (test code = AST) U/L 15-37 SGPT/ALT (test code = ALT) U/L 12-78 ALKALINE PHOSPHATASE TOTAL (test code U/L 50-136 = ALKP) [id number] 21:46:00 Test Item Value Reference Range Interpretation Comments LIPASE (test code = LIP) U/L 73-393 CBC W/AUTO [id number] 21:43:00 Test Item Value Reference Range Interpretation [...] Notes Date/Time Note Provider Source 2022-06-11 11:33:00 [id number]:33:00 [facility]EMERGENCY PROVIDER REPORTREPORT#:[id number] REPORT STATUS: SignedDATE:06/11/22 TIME: 1133 PATIENT: BREANNA JIMENEZ UNIT #: [id number]#: [id number] ROOM/BED:AGE: 32 SEX: F PCP PHYS: Undefined [...] % (Auto) (16 - 50 %) 22.9 [place] % (Auto) (0.0 - 13. 0 %) [...] pH (4.6 - 8.0) 7.0 Ur Specific Reading (1.001 - 1.035) 1.020 Urine Protein (NEGATIVE [...] me that patient had been to another [facility] standing ED yesterday. After discussion patient states [facility]/reglan after blood [...] or a call to 911. at 1245RPT #:[id number] OF REPORTEDEmergenc y department iyjpty2659-27-39V59:33:00H.[id number] a ilable for patient wmtsNORAIQEFSCTJSY3099-58-42P39:45:50 2021-02-09 23:43:00 [id number]:43:00 [facility])EMERGENCY PROVIDER REPORTREPORT#:[id number] REPORT STATUS: SignedDATE:02/09/21 TIME: 2342 PATIENT: BREANNA JIMENEZ UNIT #: [id number]#: [id number] ROOM/BED:AGE: 30 SEX: F PCP PHYS: N o Primary or Family PhysicianSERVICE AUTHOR: Kaelyn Peguero MD * ALL edits or amendments must be made on the electronic/computer document * IGS-Yig-Ahkk Illness GeneralConfirmed Patient YesPatient Type New patientInitial Greet Date/Time 02/09/21 5403 PresentationChief Complaint Body aches, Chills, Cough Free Text HPI NotesFree Text HPI Olmbg99-vivo-tjz female comes emergency room complaining of cough, body aches, chills, that began 2 days ago. Patient has been traveling in [place] and apparently although she has been driving [...] symptoms or worsening symptoms. at 0652RP T #:[id number] OF REPORTEDEmergency department ucfqty8692-85-03P82:43:00H.[id number] a ilable for patient txprXXKYQPDXLSEEEV2158-05-43B91:53:06 2020-06-24 15:35:00 QRlmgkbyoyw814462478559-05-83Z18:35:00 SAI RODRIGUEZ [facility])EMERGENCY PROVIDER REPORTREPORT#:[id number] REPORT STATUS: SignedDATE:06/24/20 TIME: 1534 PATIENT: BREANNA JIMENEZ UNIT #: [id number]#: [id number] ROOM/BED:AGE: 30 SEX: F PCP PHYS: N o Primary or Family PhysicianSERVICE AUTHOR: Maicol Coy MD * ALL edits or amendment s must be made on the electronic/computer document * HPI-Abd Pain F Under 40 GeneralInitial Greet Date/Time 06/24/20 1529PCPDr. [place] PresentationChief Complaint Abdominal pain, Nausea, Vomiting [...] Nothing Free Text HPI NotesFree Text HPI Iipkr49v M2 LMP 19 May 2020 c/o acute on chronic gastroparesis related to IBS and/or THC use for past 2d with nonbloody N/V x 6. She is visiting from [place]. Risk-Abd Pain F Under 40)( Ectopic Risk [...] pH (4.6 - 8.0) 7.0 Ur Specific Reading (1.001 - 1.035) 1.020 Urine Protein (NEGATIVE [...] and considered in the medical decision-making. Re-Evaluation [facility] )( Re-Evaluation/Progress #1Text/Dict NotePt states her episode [...] particular, there is no discomfor t at [facility]'s point. The history, exam, diagnostic testing, [...] and the plan for smoking cessation. Electronically Jnaelle d by Maicol Coy MD on 06/24/20 at 2053RPT #:[id number] OF REPORTEDEmergency department zthoft3997-68-33R27:35:00H.[id number] a ilable for patient qahyRFZNEPJACMTWPT5502-34-29Y02:53:15 2020-05-19 12:11:00 [id number]:11:00 [facility]EMERGENCY PROVIDER REPORTREPORT#:[id number] REPORT STATUS: SignedDATE:05/19/20 TIME: 1211 PATIENT: BREANNA QUEEN UNIT #: [id number]#: [id number] ROOM/BED:AGE: 30 SEX: F PCP PHYS: Brayan Winn MDSERVICE AUTHOR: Sawyer Centeno II, MD * ALL edits or amendments must be made on the electronic/computer document * HPI-Abd Pain F Under 40 Free Text HPI NotesFre e Text HPI NotesThe patient tells me she has a history of gastroparesis but is not a diabetic. She tells me that she is from [facility] and that she has GI specialist in [facility] whose name is Dr. Hendrix. She [...] (Auto) (16 - 50 %) 9.5 L [place] % (Auto) (0.0 - 13.0 %) 4.3 [...] Entered: 05/19/2020 1219 IMPRESSION:No acute process. Location: U14Ffivsczumj By: Emily CABALLERO M.D. Imaging StatementRadiographic studies [...] HTN F/u with PCP/other doc at 1708RPT #:[id number] OF REPORTEDEmergency department xgelds9903-02-61V85:11:00H.[id number] a ilable for patient ahclWWQISNIYMYKJPW4006-36-45C02:08:49 2019-07-30 21:12:00 [id number]:12:00 SAI Ellison [facility])EMERGENCY PROVIDER REPORTREPORT#:[id number] REPORT STATUS: SignedDATE:07/30/19 TIME: 2111 PATIENT: BREANNA JIMENEZ UNIT #: [id number]#: [id number] ROOM/BED:AGE: 29 SEX: F PCP PHYS: N [...] pH (4.6 - 8.0) 6.0 Ur Specific Reading (1.001 - 1.035) 1.017 Urine Protein (NEGATIVE [...] or a call to 911. at 0000RPT #:[id number] OF REPORTEDEmergenc y department kpgtug0765-35-01F68:12:00H.[id number] a ilable for patient oohfATJNIVVDWFUFLQ2764-07-01M32:00:25 2019-07-30 21:12:00 [id number]:12:00 [facility]EMERGENCY PROVIDER REPORTREPORT#:[id number] REPORT STATUS: SignedDATE:07/30/19 TIME: 2111 PATIENT: BREANNA JIMENEZ UNIT #: [id number]#: [id number] ROOM/BED:AGE: 29 SEX: F PCP PHYS: N [...] (Auto) (16.0 - 50.0 %) 15.3 L [place] % (Auto) (0.0 - 13.0 %) 5.2 [...] (4.6 - 8.0) 6. 0 Ur Specific Reading (1.001 - 1.035) 1.017 Urine Protein (NEGATIVE [...] call to 911. at 0000 at 0024RPT #:[id number] OF REPORTEDEmergency department hxymsw6874-99-39M63:12:00H.[id number] a ilable for patient qjcyXWAZNLMECVABWV4256-72-11S39:24:32
[2022-12-31 11:49] LABS: Absolute Lymphocytes (CBC) 1.6 K/uL (0.7-4.9); Hematocrit 41.5 % (36.0-45.0); Lymphocytes % 10.5 % (15.3-44.8); MCV 82.8 fL (80-100); MPV 9.5 fL (7.6-11.3); Platelets 323 thou/uL (152-406); RBC Red Blood Cell Count 5.01 M/uL (3.86-4.86)
[2022-12-31] MEDS ORDERED: NA CHLORIDE 0.9% 1,000 ML ONE ×3 (11:58→19:37)
[2022-12-31] MEDS ORDERED: KETOROLAC 30 MG/ML INJ ONE (11:58)
[2022-12-31 12:06] LABS: Bilirubin Total 1.1 mg/dL (0.2-1.0); Protein, Total 7.5 g/dL (6.4-8.2)
[2022-12-31 13:17] LABS: Specific Gravity 1.027 (1.005-1.030)
[2022-12-31 13:25] LABS: Specific Gravity 1.027 (1.005-1.030); Urine Bacteria None Seen /HPF (<20); Urine Bilirubin 1+ (Negative); Urine Blood 3+ (OVER) (Negative); Urine Clarity Extremely Turbid (Clear); Urine Color Light-Orange (Yellow); Urine Glucose NEGATIVE (Negative); Urine Mucus 1+ /HPF (None Seen); Urine Protein 1+ (Negative); Urine RBC >50 /HPF (None Seen); Urine Urobilinogen 1+ (Normal)
--- NOTE | 2022-12-31 13:48 | RAD REPORT ---
EXAM DESCRIPTION: CT - Soft Tissue Neck W/Contr - 12/31/2022 1:35 pm CLINICAL HISTORY: Neck pain, difficulty swallowing, pharyngeal lesion COMPARISON: None. TECHNIQUE: Computed axial tomography of the neck was obtained. 50 cc Isovue 300 was administered in travenously. Coronal and sagittal reconstruction was performed. All CT scans are performed using dose optimization technique as appropriate and may include automated exposure control or mA/KV adjustment according to patient size. FINDINGS: The pharynx, tongue base, larynx and subglottic trachea appear unremarkable The parotid, submandibular and thyroid glands appear unremarkable. No lymphadenopathy is seen No fluid within the sinuses/mastoids The most superior slice demonstrates a 1.2 centimeter low-density area near the junction of the right temporal and right occipital lobes IMPRESSION: Unremarkable CT neck 1.2 centimeter low-density area near the junction of the right temporal and right occipital lobes inc ompletely evaluated on this exam. Further evaluation with head CT may be helpful
--- NOTE | 2022-12-31 13:54 | RAD REPORT ---
EXAM DESCRIPTION: CT - Abdomen Pelvis W Contrast - 12/31/2022 1:35 pm CLINICAL HISTORY: Abdominal pain COMPARISON: December 14, 2022 TECHNIQUE: Computed axial tomography of the abdomen pelvis was obtained. 100 cc Isovue-300 was admin istered intravenously. Oral contrast was not requested which limits evaluation of bowel and appendix All CT scans are performed using dose optimization technique as appropriate and may include automated exposure control or mA/KV adjustment according to patient size. FINDINGS: The liver, spleen, pancreas, adrenal and left kidney appear unremarkable. Right renal cortical thinning may be secondary to prior inflammation Cholecystectomy There is no evidence of diverticulitis. No adnexal mass Small umbilical hernia IMPRESSION: No acute abnormality is displayed.
--- NOTE | 2022-12-31 14:19 | ER ---
Nurse's Notes [facility] Name: Efrem Pastor Age: 32 yrs Sex: Female : 1990 Arrival Date: 12/31/2022 Time: 11:20 Bed 20 Private MD: Diagnosis: Dysphagia, unspecified;Dehydration;Syncope Presentation: 12/31 11:24 Chief complaint: EMS states: toned out for syncopal episode. Patient was rinsing her me1 mouth out at the sink and then woke up on the floor. LOC. Denies any injury from fall. Reports she has been sick since she went to [place] about a month ago with body aches, sores in her mouth, abdominal pain and rash to bilateral upper arms. Per EMS BP 109/66, 110, o2 sat 98% on room air. BG 82. Coronavirus screen: Vaccine status: Patient reports receiving the 2nd dose of the covid vaccine. Ebola Screen: No symptoms or risks identified at this time. Initial Sepsis Screen: Does the patient meet any 2 criteria? HR > 90 bpm. No. Patient's initial sepsis screen is negative. Does the patient have a suspected source of infection? No. Patient's initial sepsis screen is negative. Initial Sepsis Screen: Does the patient have a suspected source of infection? Yes: Acute abdominal pain. Risk Assessment: Do you want to hurt yourself or someone else? Patient reports no desire to harm self or others. Onset of symptoms is unknown. 11:24 Method Of Arrival: EMS: [place] [id number] 11:24 Acuity: BELINDA 3 me1 Triage Assessment: 11:31 General: Appears uncomfortable, unkempt, well developed, well nourished, Behavior is me1 calm, cooperative, appropriate for age. Pain: Complains of pain in generalized Pain currently is 8 out of 10 on a pain scale. Quality of pain is described as aching, Pain began one month ago Is continuous. EENT: lips are dry and cracked. . Neuro: Level of Consciousness is awake, alert, obeys commands, Oriented to person, place, time, situation, Appropriate for age Reports body aches, abdominal pain, sores in mouth and rash to bilateral arms. States she hasnt been able to eat in a week because her mouth hurts. . Cardiovascular: Capillary refill < 3 seconds Patient's skin is warm and dry. Respiratory: Airway is patent Respiratory effort is even, unlabored, Respiratory pattern is regular, symmetrical. 11:31 GI: Reports lower abdominal pain, upper abdominal pain, cramping. 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 - Social history:: Smoking status: Reported history of juuling and/or vaping. - Family history:: not pertinent. - Hospitalizations: : No recent hospitalization is reported. Screenin:48 [facility] ED Fall Risk Assessment (Adult) History of falling in the last 3 months, me1 including since admission No falls in past 3 months (0 pts) Confusion or Disorientation No (0 pts) Intoxicated or Sedated No (0 pts) Impaired Gait No (0 pts) Mobility Assist Device Used No (0 pt) Altered Elimination No (0 pt) Score/Fall Risk Level 0 - 2 = Low Risk Maintained a safe environment, Provided non-skid footwear, Hourly rounding (assess needs \T\ fall precautionary measures) done. Abuse screen: Denies threats or abuse. Nutritional screening: No deficits noted. Tuberculosis screening: No symptoms or risk factors identified. Assessment: 11:48 General: See triage assessment. . Neuro: Level of Consciousness is awake, alert, obeys mt1 commands, Oriented to person, place, time, situation, Appropriate for age. Cardiovascular: Capillary refill < 3 seconds Patient's skin is warm and dry. 16:42 Cardiovascular: Rhythm is sinus tachycardia. me1 Vital Signs: 11:24 BP 118 / 90; Pulse 118; Resp 18; Temp 99.4(O); Pulse Ox 100% on R/A; Weight 61.23 kg; me1 Height 5 ft. 2 in. ; Pain 8/10; 11:30 BP 127 / 92; Pulse 104; Resp 18; Pulse Ox 99% on R/A; me1 12:00 BP 128 / 84; Pulse 93; Resp 17; Pulse Ox 100% on R/A; me1 12:30 BP 115 / 82; Pulse 98; Resp 16; Pulse Ox 100% on R/A; me1 13:00 BP 118 / 84; Pulse 95; Resp 17; Pulse Ox 100% on R/A; me1 13:30 BP 113 / 79; Pulse 98; Resp 16; Pulse Ox 99% on R/A; me1 14:30 BP 118 / 90; Pulse 89; Resp 16; Pulse Ox 100% ; me1 15:30 BP 122 / 90; Pulse 95; Resp 20; Pulse Ox 100% ; me1 16:26 BP 121 / 90; Pulse 107; Resp 16; Pulse Ox 100% on R/A; me1 11:24 Body Mass Index 24.69 (61.23 kg, 157.48 cm) me1 11:24 Pain Scale: [place] [facility] [place] Course: 11:23 Patient arrived in ED. bc6 11:23 Faheem Stewart MD is Attending Physician. rn 11:23 Yasmine Pagan RN is Primary Nurse. me1 11:29 Triage completed. me1 11:31 Arm band placed on Patient placed in an exam room. me1 11:42 CMP Sent. me1 11:42 CBC with Diff Sent. me1 11:42 Inserted saline lock: 22 gauge in right antecubital area, using aseptic technique. me1 11:48 Patient has correct armband on for positive identification. Bed in low position. Call [facility] light in reach. Side rails up X 1. Provided Education on: POC. Verbalized understanding. . 11:48 No provider procedures requiring assistance completed. me1 12:02 Strep Sent. me1 12:02 Flu Sent. me1 13:36 CT Abd/Pelvis - IV Contrast Only In Process Unspecified. EDMS 13:36 CT Soft Tissue Neck W/contr In Process Unspecified. EDMS 14:18 CT Head Brain wo Cont In Process Unspecified. EDMS 14:19 Ez Courtney MD is Hospitalizing Provider. rn 16:01 Lactate w/ 2H reflex if indic. Sent. me1 16:01 Blood Culture Adult (2) Sent. me1 20:18 Patient admitted, IV remains in place. me1 Administered Medications: 11:50 Drug: NS 0.9% IV 1000 ml IV at 1 bolus Per protocol; 1000 mL bolus Route: IV; Rate: 1 me1 bolus; Site: right antecubital; 14:12 Follow up: IV Status: Completed infusion me1 11:50 Drug: TORadol - Ketorolac IVP 15 mg IVP once Route: IVP; Site: right antecubital; me1 12:02 Follow up: Response: No adverse reaction me1 14:12 Drug: NS 0.9% IV 1000 ml IV at 1000 ml once Route: IV; Rate: 1000 ml; Site: right me1 antecubital; 16:33 Follow up: IV Status: Completed infusion me1 16:01 Drug: Clindamycin IVPB 600 mg IVPB once over 30 mins; (mix in 50 mL) Route: IVPB; me1 Infused Over: 30 mins; Site: right antecubital; 16:33 Follow up: Response: No adverse reaction; IV Status: Completed infusion me1 Medication: 11:48 VIS not applicable for this client. me1 Outcome: 14:19 Decision to Hospitalize by Provider. rn 20:18 Admitted to Tele accompanied by tech, via wheelchair, room 407, with chart, Report me1 called to BRUCE Wright 20:18 Condition: stable 20:18 Instructed on the need for admit, 20:55 Patient left the ED. mt1 Signatures: Dispatcher [employer] EDMS Faheem Stewart MD MD rn [place]atson, Breana Yasmine Kyle RN RN me1 Corrections: (The following items were deleted from the chart) 12:08 12:02 SARS-COV-2 Antigen Rapid+I.LAB.BRZ drawn and sent. mt1 EDMS
--- NOTE | 2022-12-31 14:19 | EDPHYS ---
Physician Documentation [facility] Name: Efrem Pastor Age: 32 yrs Sex: Female : 1990 Arrival Date: 12/31/2022 Time: : Bed 20 Private MD: ED Physician Faheem Stewart HPI: 12/31 11:51 This 32 yrs old Female presents to ER via EMS with complaints of Syncope. rn 11:51 The patient has experienced syncope. Onset: The symptoms/episode began/occurred just rn prior to arrival. Duration: This was a single episode. Associated injury: The patient did not suffer any apparent associated injury. Current symptoms: Currently, the patient is not experiencing any symptoms. The patient has not experienced similar symptoms in the past. The patient has been recently seen at the [facility] Emergency Department. Patient reports feeling weak and sick for 1 month since return from [place]. Reports sores to the mouth, rash on upper arms, pain when eating and swallowing, decreased p.o. intake for the last week and feels generalized weakness. Had syncopal episode today while standing. Reports heart racing. No fever. No chills. Reports generalized myalgias.. 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 - Social history:: Smoking status: Reported history of juuling and/or vaping. - Family history:: not pertinent. - Hospitalizations: : No recent hospitalization is reported. ROS: 11:52 Constitutional: Negative for fever, chills, and weight loss, Eyes: Negative for injury, rn pain, redness, and discharge, Neck: Negative for injury, pain, and swelling, Cardiovascular: Positive for palpitations and heart racing Respiratory: Negative for shortness of breath, cough, wheezing, and pleuritic chest pain, Abdomen/GI: Positive for abdominal pain and nausea vomiting Back: Negative for injury and pain, MS/Extremity: Negative for injury and deformity, Skin: Negative for injury, rash, and discoloration, Neuro: Negative for headache, numbness, tingling, and seizure, Exam: 11:52 Constitutional: This is a well developed, well nourished patient who is awake, alert rn Head/Face: Normocephalic, atraumatic. Eyes: Pupils equal round and reactive to light, extra-ocular motions intact. Lids and lashes normal. Conjunctiva and sclera are non-icteric and not injected. Cornea within normal limits. Periorbital areas with no swelling, redness, or edema. ENT: Dry mucous membranes with flesh-colored papules on the roof of the mouth and pharynx. Uvula midline. No evidence of peritonsillar abscess. No stridor. Neck: Trachea midline, no thyromegaly or masses palpated, and no cervical lymphadenopathy. Supple, full range of motion without nuchal rigidity, or vertebral point tenderness. No Meningismus. Cardiovascular: Tachycardic, regular. Respiratory: No increased work of breathing, no retractions or nasal flaring. Abdomen/GI: Soft, mild tenderness epigastric and left upper quadrant. No distention or rebound. Skin: Warm, dry, fine rash to bilateral shoulders and upper extremities, no bullae, no desquamation, no fluctuance MS/ Extremity: Pulses equal, no cyanosis. Neuro: Awake and alert, GCS 15 Vital Signs: 11:24 BP 118 / 90; Pulse 118; Resp 18; Temp 99.4(O); Pulse Ox 100% on R/A; Weight 61.23 kg; me1 Height 5 ft. 2 in. ; Pain 8/10; 11:30 BP 127 / 92; Pulse 104; Resp 18; Pulse Ox 99% on R/A; me1 12:00 BP 128 / 84; Pulse 93; Resp 17; Pulse Ox 100% on R/A; me1 12:30 BP 115 / 82; Pulse 98; Resp 16; Pulse Ox 100% on R/A; me1 13:00 BP 118 / 84; Pulse 95; Resp 17; Pulse Ox 100% on R/A; me1 13:30 BP 113 / 79; Pulse 98; Resp 16; Pulse Ox 99% on R/A; me1 14:30 BP 118 / 90; Pulse 89; Resp 16; Pulse Ox 100% ; me1 15:30 BP 122 / 90; Pulse 95; Resp 20; Pulse Ox 100% ; me1 16:26 BP 121 / 90; Pulse 107; Resp 16; Pulse Ox 100% on R/A; me1 11:24 Body Mass Index 24.69 (61.23 kg, 157.48 cm) in1 11:24 Pain Scale: Adult me1 MDM: 11:23 Patient medically screened. rn 14:16 Differential Diagnosis: idiopathic syncope, vasovagal episode, Dehydration, volume rn depletion, viral syndrome, herpes, deep space neck infection. Data reviewed: vital signs, nurses notes, lab test result(s), radiologic studies, CT scan, and as a result, I will admit patient. Consideration of Admission/Observation Patient was admitted/placed on observation. Escalation of care including admission/observation considered. Management of patient was discussed with the following: Hospitalist: Will admit patient. Counseling: I had a detailed discussion with the patient and/or guardian regarding the historical points, exam findings, and any diagnostic results supporting the discharge/admit diagnosis, lab results, radiology results, the need for further work-up and treatment in the hospital. Response to treatment: the patient's symptoms have mildly improved after treatment, and as a result, I will admit patient. ED course: Patient with 4+ ketones, this is fourth ER visit and getting worse, CT neck negative for deep space neck infection or abscess or need for surgical consultation at this time. Will admit to hospitalist with IV antibiotics and fluids. 12/31 11:24 Order name: CBC with Diff; Complete Time: 12:18 rn 12/31 11:24 Order name: CMP; Complete Time: 12:18 rn 12/31 11:24 Order name: Lipase; Complete Time: 12:18 rn 12/31 11:24 Order name: Test, Urine; Complete Time: 13:21 rn 12/31 11:24 Order name: Urinalysis w/ reflexes; Complete Time: 13:28 rn 12/31 11:52 Order name: Flu; Complete Time: 12:35 rn 12/31 11:52 Order name: Strep; Complete Time: 12:35 rn 12/31 12:10 Order name: SARS-COV-2 RT PCR; Complete Time: 12:41 EDMS 12/31 12:36 Order name: Throat Culture EDMS 12/31 14:18 Order name: Blood Culture Adult (2) rn 12/31 14:18 Order name: Lactate w/ 2H reflex if indic. rn 12/31 11:24 Order name: CT Abd/Pelvis - IV Contrast Only; Complete Time: 14:06 rn 12/31 11:24 Order name: CT Soft Tissue Neck W/contr; Complete Time: 14:06 rn 12/31 14:06 Order name: CT Head Brain wo Cont; Complete Time: 14:32 rn 12/31 15:42 Order name: CONS Physician Consult EDNE 12/31 11:24 Order name: IV Saline Lock; Complete Time: 11:42 rn 12/31 11:24 Order name: Labs collected and sent; Complete Time: 11:42 rn Administered Medications: 11:50 Drug: NS 0.9% IV 1000 ml IV at 1 bolus Per protocol; 1000 mL bolus Route: IV; Rate: 1 me1 bolus; Site: right antecubital; 14:12 Follow up: IV Status: Completed infusion me1 11:50 Drug: TORadol - Ketorolac IVP 15 mg IVP once Route: IVP; Site: right antecubital; me1 12:02 Follow up: Response: No adverse reaction me1 14:12 Drug: NS 0.9% IV 1000 ml IV at 1000 ml once Route: IV; Rate: 1000 ml; Site: right me1 antecubital; 16:33 Follow up: IV Status: Completed infusion me1 16:01 Drug: Clindamycin IVPB 600 mg IVPB once over 30 mins; (mix in 50 mL) Route: IVPB; me1 Infused Over: 30 mins; Site: right antecubital; 16:33 Follow up: Response: No adverse reaction; IV Status: Completed infusion me1 Disposition Summary: 12/31/22 14:19 Hospitalization Ordered Notes: Hospitalization Status: Observation rn Provider: Ez Courtney rn Location: Telemetry/MedSurg (observation) rn Condition: Stable rn Problem: new rn Symptoms: have improved rn Bed/Room Type: Standard rn Room Assignment: 407(12/31/22 19:17) cg Diagnosis - Dysphagia, unspecified rn - Dehydration rn - Syncope rn Forms: - Medication Reconciliation Form rn - SBAR form rn - Leadership Thank You Letter rn Signatures: Dispatcher [employer] Faheem Choi MD MD rn Garcia, Cindy, RN RN cg Eddleman, Michelle, RN RN in1 Corrections: (The following items were deleted from the chart) 12:08 11:53 SARS-COV-2 Antigen Rapid+I.LAB.BRZ ordered. EDNE EDNE 19:17 14:19 jahaira simpson
--- NOTE | 2022-12-31 14:29 | RAD REPORT ---
EXAM DESCRIPTION: CT - Head Brain Wo Cont - 12/31/2022 2:17 pm CLINICAL HISTORY: Abnormal CT. Difficulty swallowing COMPARISON: None TECHNIQUE: Computed axial tomography of the head was obtained. IV contrast was not requested. All CT scans are performed using dose optimization technique as appropriate and may include automated exposure control or mA/KV adjustment according to patient size. FINDINGS: An intracranial bleed is not seen The ventricles are normal in caliber No extra-axial fluid collection is noted. 1.4 centimeter low-density area near the junction of the right temporal and right occipital lobes. No enhancement Fluid within the sinuses/ mastoids is not seen. IMPRESSION: 1.4 centimeter low-density area near the junction of the right temporal and right occipi reyes lobes. No enhancement. This appears benign. It may represent an unusual appearing arachnoid cyst
[2022-12-31] MEDS ORDERED: CLINDAMYCIN 600MG/D5W 50 ML IV ONE (16:00)
[2022-12-31] MEDS: NA CHLORIDE 0.9% 1,000 ML IV SCH (16:00)
[2022-12-31] MEDS ORDERED: SODIUM CHLORIDE 0.9% 10ML INJ IV PRN (16:12)
[2022-12-31] MEDS ORDERED: DIPHENHYDRAMINE 12.5MG/5ML LIQ PO ONE (16:14)
--- NOTE | 2022-12-31 16:22 | P.HP ---
Certification for Inpatient Patient admitted to: Inpatient With expected LOS: >2 Midnights Patient will require the following post-hospital care: None Practitioner: I am a practitioner with admitting privileges, knowledge of patient current condition, hospital course, and medical plan of care. Services: Services provided to patient in accordance with Admission requirements found in Title 42 Section 412.3 of the Code of Federal Regulations Patient History Date of Service: 12/31/22 Reason for admission: Syncope History of Present Illness: Patient is a 32-year-old female with a past medical history significant for gastroparesis, PTSD, irritable bowel syndrome, GERD, depression, anxiety disorder who presents with complaint of syncope which occurred today. Patient reported that she has been in the hospital multiple times for ulcers in her mouth and throat that has been going for the past 1 month. Patient reported that she developed ulcers in her mouth after returning from [place] a month ago. Patient reported that she has not been able to eat in the last 1 week due to throat pain and pain with swallowing. Patient reported that she felt dizzy today before passing out. Patient denies hitting her head and cannot remember how long she passed out. Patient reports associated signs and symptoms of nausea, vomiting, headache, chills, fever, generalized abdominal pain, rash in upper extremities and lower extremities. Patient denies any other signs and symptoms. Symptoms are aggravated or relieved by nothing. Patient decided to present to the hospital due to worsening symptoms. Allergies scopolamine Allergy (Unknown, Verified 11/17/22 11:21) Itching/Hives/Rash haloperidol [From Haldol] Allergy (Verified 11/17/22 11:21) Itching/Hives/Rash Home Medications: Eszopiclone [Lunesta*] 3 mg PO BEDTIME 05/31/22 Prochlorperazine [Compazine*] 5 mg PO Q8HP PRN #12 tab 06/01/22 Alprazolam [Xanax] 0.5 mg PO BID 08/12/22 Alprazolam [Xanax] 1 mg PO BID 08/18/22 Brexpiprazole [Rexulti] 0.5 mg PO DAILY 08/18/22 Brexpiprazole [Rexulti] 1 mg PO DAILY 08/18/22 Dexlansoprazole [Dexilant] 30 mg PO DAILY 08/18/22 Eszopiclone [Lunesta] 3 mg PO BEDTIME 08/18/22 PARoxetine HCL [Paxil] 40 mg PO DAILY 08/18/22 Prochlorperazine Maleate [Compazine] 5 mg PO BID 08/18/22 Brexpiprazole [Rexulti] 2 mg PO DAILY 09/12/22 PARoxetine HCL [Paxil] 40 mg PO BEDTIME 09/12/22 - Past Medical/Surgical History Diabetic: No -: Gastroparesis -: Depression -: PTSD -: IBS -: Cholecystectomy -: LEEP -: Lumpectomy Psychosocial/ Personal History: Patient lives at home with her family. - Family History Father -: Hypertension Mother -: Diabetes - Social History Smoking Status: Former smoker Alcohol use: No CD- Drugs: Yes Caffeine use: Yes Place of Residence: Home Review of Systems General: Fever, Chills Eyes: Unremarkable ENT: Throat Pain, Other (mouth ulcers) Respiratory: Unremarkable Cardiovascular: Unremarkable Gastrointestinal: Nausea, Vomiting, Abdominal Pain Genitourinary: Unremarkable Musculoskeletal: Unremarkable Integumentary: Rash Neurological: Other (Dizziness, F[place]) Lymphatics: Unremarkable Physical Examination - Physical Exam General: Alert, Oriented x3, Mild distress HEENT: Atraumatic, PERRLA, Mucous membr. moist/pink, EOMI, Sclerae nonicteric Neck: Supple, 2+ carotid pulse no bruit, No LAD, Without JVD or thyroid abnormality Respiratory: Clear to auscultation bilaterally, Normal air movement Cardiovascular: No edema, Regular rate/rhythm, Normal S1 S2 Capillary refill: <2 Seconds Gastrointestinal: Normal bowel sounds, Tenderness Musculoskeletal: No clubbing, No tenderness Integumentary: Rash(es) Neurological: Normal speech, Normal strength at 5/5 x4 extr, Normal tone, Normal affect Lymphatics: No axilla or inguinal lymphadenopathy - Studies Laboratory Data (last 24 hrs) 12/31/22 12/31/22 11:41 11:41 WBC 15.70 H Hgb 13.8 Hct 41.5 Plt Count 323 Sodium 132 L Potassium 4.0 BUN 13 Creatinine 0.84 Glucose 91 Total Bilirubin 1.1 H AST 16 ALT 37 Alkaline Phosphatase 101 Lipase 12 L Microbiology Data (last 24 hrs): 12/31/22 11:58 Throat Group A Streptococcus Rapid Screen - Final 12/31/22 11:58 Nasopharnyx Influenza Type A Antigen Screen - Final 12/31/22 11:58 Nasopharnyx Influenza Type B Antigen Screen - Final Assessment and Plan - Plan --Stomatitis. Infectious disease MD consulted. Viral studies pending for further assessment. CT neck unremarkable for any acute findings. Abdominal pain. Patient has a history of gastroparesis. Patient placed on lidocaine viscous solution, Valtrex, Carafate and IV hydration. Will await further recommendation from infectious disease MD. --Upper and lower extremities rash. Unclear etiology. Further management per infectious disease MD. --Syncope. Likely secondary to dehydration. Continue IV hydration. --Nausea and vomiting. Antiemetics on board. Continue IV hydration. --Headache. Tylenol as needed. --Hx of Gastroparesis. CT abdomen unremarkable for any acute intracranial abnormality. Continue home medication. Continue supportive care. --History of irritable bowel syndrome. Continue home medication. --Depression\anxiety disorder\PTSD. Continue home medications. --GERD. Continue Protonix. --Cannabis use disorder. Patient counseled on drug cessation. --UTI POA. Patient placed on antibiotics. Urine cultures pending. --Acute pain. We will manage pain with current pain medication regimen. --DVT prophylaxis with Lovenox subQ. Discharge Plan: Home Plan to discharge in: Greater than 2 days - Advance Directives Does patient have a Living Will: No Does patient have a Durable POA for Healthcare: No - Code Status/Comfort Care Code Status Assessed: Yes Physician Review: Patient Assessed, Agree with Above Assessment and Plan Critical Care: No
[2022-12-31] MEDS: SUCRALFATE 1GM/10ML UCUP PO SCH ×2 (16:30→22:23)
[2022-12-31] MEDS: ENOXAPARIN 40 MG/0.4 ML SQ SCH (17:00)
[2022-12-31] MEDS: LIDOCAINE VISCOUS 2% 10ML ORAL SOLN PO SCH (18:00)
[2022-12-31] MEDS: PANTOPRAZOLE 40 MG INJ IVP SCH (18:00)
[2022-12-31] MEDS: MORPHINE 4 MG/ML SYR IV PRN ×2 (19:36→23:22)
[2022-12-31] MEDS ORDERED: SUCRALFATE 1 GM TABLET ONE (19:36)
[2022-12-31] MEDS ORDERED: MORPHINE 4 MG/ML SYR ONE (19:36)
[2022-12-31] MEDS ORDERED: CEFTRIAXONE 1000 MG/VIAL ONE (19:36)
[2022-12-31] MEDS: ONDANSETRON 4 MG/2 ML VIAL IV PRN ×2 (19:36→23:22)
[2022-12-31] MEDS ORDERED: PANTOPRAZOLE 40 MG INJ ONE (19:37)
[2022-12-31] MEDS ORDERED: ENOXAPARIN 40 MG/0.4 ML SQ ONE (19:37)
[2022-12-31] MEDS ORDERED: DIPHENHYDRAMINE 12.5MG/5ML LIQ ONE (19:37)
[2022-12-31] MEDS ORDERED: ONDANSETRON 4 MG/2 ML VIAL ONE (19:37)
[2022-12-31] MEDS: ACETAMINOPHEN 160 MG/5 ML UCUP PO PRN (20:49)
[2022-12-31] MEDS ORDERED: VALACYCLOVIR 500 MG TAB PO SCH (21:00)
[2022-12-31] MEDS ORDERED: ACETAMINOPHEN 160 MG/5 ML UCUP ONE (21:03)
[2022-12-31] MEDS: CEFTRIAXONE 1,000 MG in NA CHLORIDE 0.9% 50 ML IVPB SCH (22:22)
[2022-12-31 23:27] LABS: Magnesium 1.6 mg/dL (1.6-2.4); Phosphorus 1.8 mg/dL (2.5-4.9)
[2023-01-01 00:14] LABS: Hepatitis B Core IgM Nonreactive (Nonreactive); Hepatitis B surface AG Interp. Nonreactive (Nonreactive); Hepatitis C Virus Ab Nonreactive (Nonreactive)
[2023-01-01 07:24] LABS: Absolute Lymphocytes (CBC) 1.3 K/uL (0.7-4.9); Hematocrit 33.6 % (36.0-45.0); Lymphocytes % 13.3 % (15.3-44.8); MCV 83.2 fL (80-100); MPV 10.2 fL (7.6-11.3); Platelets 259 thou/uL (152-406); RBC Red Blood Cell Count 4.03 M/uL (3.86-4.86)
[2023-01-01] MEDS: SUCRALFATE 1GM/10ML UCUP PO SCH ×4 (07:30→20:49)
[2023-01-01 07:37] LABS: Potassium 3.6 mEq/L (3.5-5.1)
[2023-01-01] MEDS: MORPHINE 4 MG/ML SYR IV PRN ×2 (07:37→14:10)
[2023-01-01] MEDS: ALPRAZOLAM 0.5 MG TABLET PO SCH ×2 (07:38→20:50)
[2023-01-01] MEDS: CEFTRIAXONE 1,000 MG in NA CHLORIDE 0.9% 50 ML IVPB SCH (07:38)
[2023-01-01] MEDS: NA CHLORIDE 0.9% 1,000 ML IV SCH ×2 (07:39→21:16)
[2023-01-01] MEDS: PANTOPRAZOLE 40 MG INJ IVP SCH (07:39)
[2023-01-01] MEDS: ENOXAPARIN 40 MG/0.4 ML SQ SCH (07:39)
[2023-01-01] MEDS ORDERED: VALACYCLOVIR 500 MG TAB PO SCH (09:00)
[2023-01-01] MEDS: ACETAMINOPHEN 160 MG/5 ML UCUP PO PRN ×2 (10:09→20:48)
[2023-01-01] MEDS ORDERED: POTASSIUM 25 MEQ EFFERV TAB PO ONE (10:56)
[2023-01-01] MEDS: LIDOCAINE VISCOUS 2% 10ML ORAL SOLN PO SCH ×2 (12:00→20:56)
--- NOTE | 2023-01-01 12:16 | P.CNS ---
Date of Consult: 01/01/23 Chief Complaint: Syncope History of Present Illness: Patient is a 32 yo female with a past medical history of gastroparesis, PTSD, irritable bowel syndrome, GERD, depression and anxiety who presented to the ED with complaints of throat pain, mouth ulcers and syncope. Patient reports associated signs and symptoms of nausea, vomiting, headache, chills, fever, generalized abdominal pain, rash in upper extremities and lower extremities. Of note, patient recently traveled to [place] last month. Since [place], she developed ulcerations in her mouth, throat pain and generalized rash. Infectious disease was consulted. Allergies scopolamine Allergy (Unknown, Verified 11/17/22 11:21) Itching/Hives/Rash haloperidol [From Haldol] Allergy (Verified 11/17/22 11:21) Itching/Hives/Rash Home medications list reviewed: Yes Home Medications: Eszopiclone [Lunesta*] 3 mg PO BEDTIME 05/31/22 Alprazolam [Xanax] 0.5 mg PO BID 08/12/22 PARoxetine HCL [Paxil] 40 mg PO BEDTIME 09/12/22 Valacyclovir [Valtrex] 1,000 mg PO TID 12/31/22 - Past Medical/Surgical History Diabetic: No -: Gastroparesis -: Depression -: PTSD -: IBS -: Cholecystectomy -: LEEP -: Lumpectomy Psychosocial/ Personal History: Patient lives at home with her family. - Family History Father Medical History: Hypertension Mother Medical History: Diabetes - Social History Smoking Status: Current every day smoker Alcohol use: No CD- Drugs: Yes Caffeine use: Yes Place of Residence: Home Review of Systems General: Fever, Chills, Weakness, Malaise ENT: Mouth Pain, Mouth Swelling, Throat Pain Gastrointestinal: Nausea, Vomiting Musculoskeletal: Other (generalized pain/aches) Integumentary: Rash (bilateral upper and lower extremities) Physical Examination Temp Pulse Resp BP Pulse Ox 98.9 F 107 H 16 111/74 99 01/01/23 11:35 01/01/23 08:00 01/01/23 08:07 01/01/23 08:00 01/01/23 08:07 General: Alert, Oriented x3, Mild distress HEENT: Atraumatic, Other (lesions in mouth. Oral thrush. ) Respiratory: Clear to auscultation bilaterally, Normal air movement Cardiovascular: No edema, Regular rate/rhythm Gastrointestinal: Normal bowel sounds, Soft and benign Integumentary: Rash(es) (maculopapular rash bilateral upper and lower extremities. Also on back. ) Neurological: Normal speech, Normal tone Laboratory Data - Reviewed Microbiology Data - Reviewed Imagings Data: - Reviewed Conclusions/Impression: Problem List Fever Maculopapular rash Oral Thrush Gastroparesis GERD Depression Anxiety Irritable bowel syndrome Patient recently traveled to [facility] 1 month ago. Since her travel, she has been experiencing mouth ulcerations and throat pain. Patient states this has been ongoing for the past 3 weeks without improvement. She also developed maculopapular rash on bilateral upper and lower extremities and her back. She reports seeing her PCP for which she was told she had strep and prescribed amoxicillin. After taking dose of amoxicillin, patient developed worsening rash and subsequently discontinued taking the medication. + fever + body aches + malaise group A strep rapid screen negative Monoscreen negative HSV pending throat culture: pending Blood cultures 12/31: Pending Leukocytosis 15.7 on arrival. Now 10. CRP 119 LFTs WNL Currently on Rocephin IV CT abdomen pelvis w contrast 12/31: "No acute abnormality is displayed" CT neck w contrast 12/31: "Unremarkable CT neck" CT head brain wo contrast 12/31: "1.4 centimeter low-density area near the junction of the right temporal and right occipital lobes. No enhancement. This appears benign. It may represent an unusual appearing arachnoid cyst." Concern for possible Dengue virus? Recommendations - Continue with IV hydration - Continue Rocephin for now - Follow up with throat and blood culture results - Oral thrush: nystatin swish and swallow x 7 days - Monitor WBC and fever trends - Supportive care -
[2023-01-01] MEDS ORDERED: POTASSIUM PHOS IN 0.9 % NACL 15 MMOL/250 ML BAG IV ONE (12:30)
[2023-01-01] MEDS: NYSTATIN 500,000 UNIT/5 ML UDC PO SCH ×3 (13:03→20:50)
[2023-01-01] MEDS: VALACYCLOVIR 1000 MG PO SCH ×2 (13:04→20:52)
[2023-01-01] MEDS ORDERED: MORPHINE 4 MG/ML SYR IV PRN (14:14)
--- NOTE | 2023-01-01 15:28 | P.PN ---
Subjective Date of Service: 01/01/23 Chief Complaint: Syncope Subjective: No new changes Patient seen with family at bedside. Patient reports minimal improvement in mouth pain. Continue supportive care Review of Systems General: Weakness, Malaise Eyes: Unremarkable ENT: Throat Pain, Other (Mouth ulcers) Respiratory: Unremarkable Cardiovascular: Unremarkable Gastrointestinal: Abdominal Pain Genitourinary: Unremarkable Musculoskeletal: Back Pain Integumentary: Rash Neurological: Weakness Lymphatics: Unremarkable Physical Examination - Vital Signs Temperature: 98.9 F Blood Pressure: 111/74 Pulse: 107 Respirations: 16 Pulse Ox (%): 99 - Physical Exam General: Alert, In no apparent distress, Oriented x3, Cooperative HEENT: Atraumatic, PERRLA, EOMI Neck: Supple, JVD not distended Respiratory: Clear to auscultation bilaterally, Normal air movement Cardiovascular: No edema, Regular rate/rhythm, Normal S1 S2 Capillary refill: <2 Seconds Gastrointestinal: Normal bowel sounds, Tenderness Musculoskeletal: No clubbing, No tenderness Integumentary: Rash(es) Neurological: Normal speech, Normal tone, Normal affect Lymphatics: No axilla or inguinal lymphadenopathy - Studies Microbiology Data (last 24 hrs): 12/31/22 11:58 Throat Group A Streptococcus Rapid Screen - Final 12/31/22 11:58 Nasopharnyx Influenza Type A Antigen Screen - Final 12/31/22 11:58 Nasopharnyx Influenza Type B Antigen Screen - Final Assessment And Plan - Plan Interval Hx 01/01/23 Patient reports minimal improvement in mouth pain. Patient seen by infectious disease team. Recommends nystatin swish and swallow. HSV and blood cultures pending. Patient tolerating clear liquid diet. Continue antibiotics. Patient placed on Benadryl solution. Continue current treatment regimen. Continue supportive care. --Stomatitis. Infectious disease MD consulted. Viral studies pending for further assessment. CT neck unremarkable for any acute findings. Abdominal pain. Patient has a history of gastroparesis. Patient placed on lidocaine viscous solution, Valtrex, Carafate and IV hydration. Will await further recommendation from infectious disease MD. --Upper and lower extremities rash. Unclear etiology. Further management per infectious disease MD. --Syncope. Likely secondary to dehydration. Continue IV hydration. --Nausea and vomiting. Antiemetics on board. Continue IV hydration. --Headache. Tylenol as needed. --Hx of Gastroparesis. CT abdomen unremarkable for any acute intracranial abnormality. Continue home medication. Continue supportive care. --History of irritable bowel syndrome. Continue home medication. --Depression\anxiety disorder\PTSD. Continue home medications. --GERD. Continue Protonix. --Cannabis use disorder. Patient counseled on drug cessation. --UTI POA. Patient placed on antibiotics. Urine cultures pending. --Acute pain. We will manage pain with current pain medication regimen. --DVT prophylaxis with Lovenox subQ. Discharge Plan: Home Plan to discharge in: Greater than 2 days - Code Status/Comfort Care Code Status Assessed: Yes Physician Review: Patient Assessed, Agree with Above Assessment and Plan Critical Care: No
[2023-01-01] MEDS: DIPHENHYDRAMINE 12.5MG/5ML LIQ PO SCH ×2 (15:34→21:15)
[2023-01-01] MEDS: ONDANSETRON 4 MG/2 ML VIAL IV PRN (15:34)
[2023-01-01] MEDS: PARoxetine HCL 10 MG TAB PO SCH (20:50)
[2023-01-01] MEDS: ESZOPICLONE 1 MG TAB PO SCH (21:00)
--- NOTE | 2023-01-02 08:30 | P.PN ---
Date of Service: 01/02/23 Chief Complaint: Syncope Subjective: Patient seen and examined at bedside. She reports not feeling well. Continued sore throat, oral lesions, headache, nausea, sensitivity to light, generalized weakness, malaise, body aches, chills, fever. Concern for meningitis. Discussed lumbar puncture with patient and her mother who are agreeable to lumbar puncture to further evaluate for meningitis. Physical Examination Temp Pulse Resp BP Pulse Ox 97 F 90 16 99/64 99 01/02/23 04:00 01/02/23 04:00 01/02/23 04:00 01/02/23 04:00 01/02/23 04:00 General: Alert, Oriented x3, Mild distress. Generalized weakness. HEENT: Atraumatic, normocephalic. Lips dry. Oral mucosa with ulcerations and petechia of soft palate. Oral thrush. Respiratory: Clear to auscultation bilaterally, Normal air movement Cardiovascular: No edema, Regular rate/rhythm Gastrointestinal: Normal bowel sounds, Soft and benign Integumentary: Maculopapular rash bilateral upper and lower extremities, and back Neurological: Normal speech, Normal tone Laboratory Data - Reviewed Microbiology Data - Reviewed Imagings Data: - Reviewed Medications List: Reviewed Assessment and Plan Problem List Fever Maculopapular rash Oral Thrush Gastroparesis GERD Depression Anxiety Irritable bowel syndrome Stomatitis Concern for Meningitis Patient recently traveled to [facility] 1 month ago. Since her travel, she has been experiencing mouth ulcerations and throat pain. Patient states this has been ongoing for the past 1 month without improvement. Of note, patient was seen by her PCP and was prescribed amoxicillin for presumed strep infection approximately 2 weeks ago; patient then developed adverse reaction of rash at the time and stopped taking the amoxicillin. HSV pending group A strep rapid screen negative Monoscreen negative throat culture: normal upper respiratory rodrigo Blood cultures 12/31: no growth to date Leukocytosis (WBC 15.7 -> 10 -> 12.2) CRP 119 LFTs WNL - 24 hour Tmax 100.7 F Currently on Rocephin IV - CT abdomen pelvis w contrast 12/31: "No acute abnormality is displayed" - CT neck w contrast 12/31: "Unremarkable CT neck" - CT head brain wo contrast 12/31: "1.4 centimeter low-density area near the junction of the right temporal and right occipital lobes. No enhancement. This appears benign. It may represent an unusual appearing arachnoid cyst." Recommendations Concern for meningitis as patient has fever, chills, lethargy, red rashes, sensitivity to light, neck stiffness, headache. - Recommend lumbar puncture and send CSF for analysis, meningitis panel and culture: - CSF protein, glucose, RBC, WBC - Meningitis panel for bacteria, virus and yeast: Cytomegalovirus, enterovirus, e.coli, haemophilus influenzae, herpes simplex 1 & 2, herpesvirus 6, neisseria meningitidis, streptococcus, varicella zoster - Continue Ceftriaxone IV for now. - Add on Doxycyline 100mg PO BID - Continue with IV hydration - Oral thrush: nystatin swish and swallow x 7 days - Monitor WBC and fever trends - Supportive care Case discussed with Toshia Sanchez
[2023-01-02] MEDS: LIDOCAINE VISCOUS 2% 10ML ORAL SOLN PO SCH ×2 (09:00→21:00)
[2023-01-02] MEDS: ENOXAPARIN 40 MG/0.4 ML SQ SCH (09:00)
[2023-01-02 09:21] LABS: Hematocrit 31.5 % (36.0-45.0); MCV 82.1 fL (80-100); MPV 9.7 fL (7.6-11.3); Platelets 271 thou/uL (152-406); RBC Red Blood Cell Count 3.83 M/uL (3.86-4.86)
[2023-01-02] MEDS: CEFTRIAXONE 1,000 MG in NA CHLORIDE 0.9% 50 ML IVPB SCH (09:28)
[2023-01-02] MEDS: NYSTATIN 500,000 UNIT/5 ML UDC PO SCH ×4 (09:28→21:10)
[2023-01-02] MEDS: ACETAMINOPHEN 160 MG/5 ML UCUP PO PRN ×2 (09:29→21:08)
[2023-01-02] MEDS: DIPHENHYDRAMINE 12.5MG/5ML LIQ PO SCH ×2 (09:29→21:09)
[2023-01-02] MEDS: PANTOPRAZOLE 40 MG INJ IVP SCH (09:29)
[2023-01-02] MEDS: SUCRALFATE 1GM/10ML UCUP PO SCH ×4 (09:30→21:09)
[2023-01-02] MEDS: NA CHLORIDE 0.9% 1,000 ML IV SCH ×2 (09:30→22:16)
[2023-01-02] MEDS: ALPRAZOLAM 0.5 MG TABLET PO SCH ×2 (09:31→21:09)
[2023-01-02] MEDS: VALACYCLOVIR 1000 MG PO SCH ×3 (09:31→21:00)
[2023-01-02 09:34] LABS: Magnesium 1.5 mg/dL (1.6-2.4); Potassium 3.2 mEq/L (3.5-5.1)
[2023-01-02 09:35] LABS: Phosphorus 1.5 mg/dL (2.5-4.9)
[2023-01-02] MEDS: MORPHINE 2 MG/ML SYR IV PRN ×3 (10:22→22:12)
[2023-01-02] MEDS ORDERED: POTASSIUM PHOS IN 0.9 % NACL 15 MMOL/250 ML BAG IV ONE (10:30)
--- NOTE | 2023-01-02 16:04 | P.PN ---
Subjective Date of Service: 01/03/23 Chief Complaint: Syncope Subjective: No new changes Physical Examination - Vital Signs Temperature: 97.2 F Blood Pressure: 103/62 Pulse: 101 Respirations: 17 Pulse Ox (%): 97 - Physical Exam General: Alert Neck: Supple Respiratory: Normal air movement Cardiovascular: Regular rate/rhythm, Normal S1 S2 Gastrointestinal: Soft and benign Integumentary: Skin lesion, Tenderness/swelling Neurological: Normal speech - Studies Microbiology Data (last 24 hrs): 12/31/22 11:58 Throat Group A Streptococcus Rapid Screen - Final 12/31/22 11:58 Throat Culture & Sensitivity - Final NORMAL UPPER RESPIRATORY JUVENTINO GROWN. Assessment And Plan - Plan Assessment And Plan - Plan Interval Hx 01/02/23 Patient continues to have significant tachycardia and fever spikes. ID recommended lumbar puncture. Will continue to monitor patient's symptomatology and perform lumbar puncture in a.m. 01/01/23 Patient reports minimal improvement in mouth pain. Patient seen by infectious disease team. Recommends nystatin swish and swallow. HSV and blood cultures pending. Patient tolerating clear liquid diet. Continue antibiotics. Patient placed on Benadryl solution. Continue current treatment regimen. Continue supportive care. --Stomatitis. Infectious disease MD consulted. Viral studies pending for further assessment. CT neck unremarkable for any acute findings. Abdominal pain. Patient has a history of gastroparesis. Patient placed on lidocaine viscous solution, Valtrex, Carafate and IV hydration. Will await further recommendation from infectious disease MD. --Upper and lower extremities rash. Unclear etiology. Further management per infectious disease MD. --Syncope. Likely secondary to dehydration. Continue IV hydration. --Nausea and vomiting. Antiemetics on board. Continue IV hydration. --Headache. Tylenol as needed. --Hx of Gastroparesis. CT abdomen unremarkable for any acute intracranial abnormality. Continue home medication. Continue supportive care. --History of irritable bowel syndrome. Continue home medication. --Depression\anxiety disorder\PTSD. Continue home medications. --GERD. Continue Protonix. --Cannabis use disorder. Patient counseled on drug cessation. --UTI POA. Patient placed on antibiotics. Urine cultures pending. --Acute pain. We will manage pain with current pain medication regimen. --DVT prophylaxis with Lovenox subQ. Discharge Plan: Home Plan to discharge in: Greater than 2 days - Code Status/Comfort Care Code Status Assessed: Yes Physician Review: Patient Assessed, Agree with Above Assessment and Plan Critical Care: No Physician Review: Patient Assessed, Agree with Above Assessment and Plan
[2023-01-02] MEDS: ONDANSETRON 4 MG/2 ML VIAL IV PRN ×2 (16:56→22:12)
[2023-01-02] MEDS: ESZOPICLONE 1 MG TAB PO SCH (21:00)
[2023-01-02] MEDS: DOXYCYCLINE 100 MG CAP PO SCH (21:10)
[2023-01-02] MEDS: PARoxetine HCL 10 MG TAB PO SCH (21:10)
[2023-01-03] MEDS: MORPHINE 2 MG/ML SYR IV PRN ×4 (04:47→23:29)
[2023-01-03] MEDS: ONDANSETRON 4 MG/2 ML VIAL IV PRN ×4 (04:48→23:28)
[2023-01-03] MEDS: SUCRALFATE 1GM/10ML UCUP PO SCH ×4 (06:27→20:59)
[2023-01-03] MEDS: NYSTATIN 500,000 UNIT/5 ML UDC PO SCH ×4 (08:09→20:59)
[2023-01-03] MEDS: ALPRAZOLAM 0.5 MG TABLET PO SCH ×2 (08:10→21:00)
[2023-01-03] MEDS: DIPHENHYDRAMINE 12.5MG/5ML LIQ PO SCH ×2 (08:10→20:59)
[2023-01-03] MEDS: CEFTRIAXONE 1,000 MG in NA CHLORIDE 0.9% 50 ML IVPB SCH (08:10)
[2023-01-03] MEDS: DOXYCYCLINE 100 MG CAP PO SCH ×2 (08:10→21:00)
[2023-01-03] MEDS: PANTOPRAZOLE 40 MG INJ IVP SCH (08:10)
[2023-01-03] MEDS: ENOXAPARIN 40 MG/0.4 ML SQ SCH (08:10)
[2023-01-03] MEDS: VALACYCLOVIR 1000 MG PO SCH ×3 (08:11→21:00)
[2023-01-03 08:19] LABS: Magnesium 1.4 mg/dL (1.6-2.4)
[2023-01-03 08:20] LABS: Phosphorus 1.5 mg/dL (2.5-4.9)
[2023-01-03] MEDS: LIDOCAINE VISCOUS 2% 10ML ORAL SOLN PO SCH ×2 (09:00→21:00)
[2023-01-03] MEDS: ACETAMINOPHEN 160 MG/5 ML UCUP PO PRN ×2 (09:55→20:58)
[2023-01-03] MEDS ORDERED: Magnesium Sulfate 2gm IVPB 2 G/50 ML BAG IV ONE (09:59)
[2023-01-03 12:11] LABS: Protime INR 1.23
--- NOTE | 2023-01-03 12:59 | P.BOP ---
Preoperative diagnosis: Suspected meningitis Postoperative diagnosis: Suspected meningitis Primary procedure: Lumbar puncture Other procedure(s): Lumbar puncture Estimated blood loss: 0ml Specimen: CSF Findings: Patient was cleaned and draped in sterile fashion. LP was performed. Anesthesia: Local Complications: None Transferred to: Other (Procedure was done at bedside) Condition: Good
--- NOTE | 2023-01-03 13:02 | P.PN ---
Subjective Date of Service: 01/03/23 Chief Complaint: Syncope Subjective: No new changes, Improving Physical Examination - Vital Signs Temperature: 97.9 F Blood Pressure: 125/66 Pulse: 100 Respirations: 16 Pulse Ox (%): 95 - Physical Exam General: Alert, Oriented x3 HEENT: Atraumatic, Normocephalic Neck: Supple Respiratory: Normal air movement Cardiovascular: Regular rate/rhythm Gastrointestinal: Soft and benign Musculoskeletal: No swelling Neurological: Normal speech Assessment And Plan - Plan Assessment And Plan - Plan Interval Hx 01/03/23 Patient had lumbar puncture performed today. Fever spike was again noted. Procedure was successful without any significant finding. Opening pressure was 24 cm H2O. Will follow cultures especially HSV cultures closely. 01/02/23 Patient continues to have significant tachycardia and fever spikes. ID recommended lumbar puncture. Will continue to monitor patient's symptomatology and perform lumbar puncture in a.m. 01/01/23 Patient reports minimal improvement in mouth pain. Patient seen by infectious disease team. Recommends nystatin swish and swallow. HSV and blood cultures pending. Patient tolerating clear liquid diet. Continue antibiotics. Patient placed on Benadryl solution. Continue current treatment regimen. Continue supportive care. --Stomatitis. Infectious disease MD consulted. Viral studies pending for further assessment. CT neck unremarkable for any acute findings. Abdominal pain. Patient has a history of gastroparesis. Patient placed on lidocaine viscous solution, Valtrex, Carafate and IV hydration. --Upper and lower extremities rash. Unclear etiology. Further management per infectious disease MD. --Syncope. Likely secondary to dehydration. Continue IV hydration. --Nausea and vomiting. Antiemetics on board. Continue IV hydration. --Headache. Tylenol as needed. --Hx of Gastroparesis. CT abdomen unremarkable for any acute intracranial abnormality. Continue home medication. Continue supportive care. --History of irritable bowel syndrome. Continue home medication. --Depression\anxiety disorder\PTSD. Continue home medications. --GERD. Continue Protonix. --Cannabis use disorder. Patient counseled on drug cessation. --UTI POA. Patient placed on antibiotics. Urine cultures pending. --Acute pain. We will manage pain with current pain medication regimen. --DVT prophylaxis with Lovenox subQ. Discharge Plan: Home Plan to discharge in: Greater than 2 days - Code Status/Comfort Care Code Status Assessed: Yes Physician Review: Patient Assessed, Agree with Above Assessment and Plan Critical Care: No Physician Review: Patient Assessed, Agree with Above Assessment and Plan
[2023-01-03] MEDS: POTASS/SODIUM PHOSPHATE 1 PKT POWD.PACK PO SCH ×3 (13:21→21:00)
[2023-01-03 14:33] LABS: CSF Glucose 63 mg/dL (40-70)
[2023-01-03] MEDS: NA CHLORIDE 0.9% 1,000 ML IV SCH ×2 (18:00→21:00)
[2023-01-03] MEDS: PARoxetine HCL 10 MG TAB PO SCH (20:59)
[2023-01-03] MEDS: ESZOPICLONE 1 MG TAB PO SCH (21:00)
[2023-01-04 07:53] LABS: Bicarbonate 30 mEq/L (21-32); Glomerular Filtration Rate 130 ml/min (=/>90); Glucose Level 100 mg/dL (74-106); Magnesium 2.1 mg/dL (1.6-2.4); Potassium 3.2 mEq/L (3.5-5.1); Sodium Level 137 mEq/L (136-145)
[2023-01-04 07:54] LABS: BUN Blood Urea Nitrogen < 3 mg/dL (7-18)
[2023-01-04] MEDS: SUCRALFATE 1GM/10ML UCUP PO SCH ×4 (08:07→20:54)
[2023-01-04] MEDS: NYSTATIN 500,000 UNIT/5 ML UDC PO SCH ×4 (08:07→20:54)
[2023-01-04] MEDS: POTASS/SODIUM PHOSPHATE 1 PKT POWD.PACK PO SCH ×4 (08:08→20:54)
[2023-01-04] MEDS: ALPRAZOLAM 0.5 MG TABLET PO SCH ×2 (08:08→20:55)
[2023-01-04] MEDS: DIPHENHYDRAMINE 12.5MG/5ML LIQ PO SCH ×2 (08:08→20:54)
[2023-01-04] MEDS: CEFTRIAXONE 1,000 MG in NA CHLORIDE 0.9% 50 ML IVPB SCH (08:08)
[2023-01-04] MEDS: PANTOPRAZOLE 40 MG INJ IVP SCH (08:08)
[2023-01-04] MEDS: DOXYCYCLINE 100 MG CAP PO SCH ×2 (08:08→20:55)
[2023-01-04] MEDS: MORPHINE 2 MG/ML SYR IV PRN ×3 (08:09→22:40)
[2023-01-04] MEDS: ONDANSETRON 4 MG/2 ML VIAL IV PRN ×2 (08:09→16:32)
[2023-01-04] MEDS: LIDOCAINE VISCOUS 2% 10ML ORAL SOLN PO SCH ×2 (08:09→20:55)
[2023-01-04] MEDS: ENOXAPARIN 40 MG/0.4 ML SQ SCH (08:09)
[2023-01-04] MEDS: VALACYCLOVIR 1000 MG PO SCH ×3 (08:10→21:00)
--- NOTE | 2023-01-04 09:57 | P.PN ---
Subjective Date of Service: 01/04/23 Chief Complaint: Syncope Subjective: No new changes, Improving Physical Examination - Vital Signs Temperature: 97.5 F Blood Pressure: 120/83 Pulse: 99 Respirations: 17 Pulse Ox (%): 98 - Physical Exam General: Alert, Oriented x3 HEENT: Atraumatic Neck: Supple Respiratory: Normal air movement Cardiovascular: Regular rate/rhythm, Normal S1 S2 Gastrointestinal: Soft and benign Musculoskeletal: No swelling Neurological: Normal speech Assessment And Plan - Plan Assessment And Plan - Plan Interval Hx 01/04/23. Lumbar puncture was successfully done yesterday. Initial CSF analysis revealed elevated protein of 53 without any other findings yet. Pending culture especially HSV culture. Pending Gram stain report. Pending cell count report. Will follow trend of kidney function closely. Will continue present anti-infective agent and add acyclovir for better coverage as patient continues to have fever and still feels sick. May consider steroid therapy in addition to present regimen. 01/03/23 Patient continues have some tachycardia and fever. had lumbar puncture done today. Will follow trend of vital signs and continue anti-infective agent. We may have to broaden to include an antiviral agent pending further review. 01/02/23 Patient continues to have significant tachycardia and fever spikes. ID recommended lumbar puncture. Will continue to monitor patient's symptomatology and perform lumbar puncture in a.m. 01/01/23 Patient reports minimal improvement in mouth pain. Patient seen by infectious disease team. Recommends nystatin swish and swallow. HSV and blood cultures pending. Patient tolerating clear liquid diet. Continue antibiotics. Patient placed on Benadryl solution. Continue current treatment regimen. Continue supportive care. --Stomatitis. Infectious disease MD consulted. Viral studies pending for further assessment. CT neck unremarkable for any acute findings. Abdominal pain. Patient has a history of gastroparesis. Patient placed on lidocaine viscous solution, Valtrex, Carafate and IV hydration. Will await further recommendation from infectious disease MD. --Upper and lower extremities rash. Unclear etiology. Further management per infectious disease MD. --Syncope. Likely secondary to dehydration. Continue IV hydration. --Nausea and vomiting. Antiemetics on board. Continue IV hydration. --Headache. Tylenol as needed. --Hx of Gastroparesis. CT abdomen unremarkable for any acute intracranial abnormality. Continue home medication. Continue supportive care. --History of irritable bowel syndrome. Continue home medication. --Depression\anxiety disorder\PTSD. Continue home medications. --GERD. Continue Protonix. --Cannabis use disorder. Patient counseled on drug cessation. --UTI POA. Patient placed on antibiotics. Urine cultures pending. --Acute pain. We will manage pain with current pain medication regimen. --DVT prophylaxis with Lovenox subQ. Discharge Plan: Home Plan to discharge in: Greater than 2 days - Code Status/Comfort Care Code Status Assessed: Yes Physician Review: Patient Assessed, Agree with Above Assessment and Plan Critical Care: No Physician Review: Patient Assessed, Agree with Above Assessment and Plan
[2023-01-04] MEDS ORDERED: POTASSIUM CL SA 10 MEQ TAB PO ONE ×2 (11:36→21:28)
[2023-01-04] MEDS: ACETAMINOPHEN 160 MG/5 ML UCUP PO PRN ×2 (12:18→23:18)
[2023-01-04] MEDS: ACYCLOVIR INJ 400 MG in NA CHLORIDE 0.9% 100 ML IVPB SCH (16:32)
[2023-01-04] MEDS: PARoxetine HCL 10 MG TAB PO SCH (20:54)
[2023-01-04] MEDS: POTASSIUM 25 MEQ EFFERV TAB PO ONE ×2 (20:54→21:00)
[2023-01-04] MEDS: ESZOPICLONE 1 MG TAB PO SCH (20:55)
[2023-01-04] MEDS: NA CHLORIDE 0.9% 1,000 ML IV SCH (21:34)
[2023-01-05] MEDS: ACYCLOVIR INJ 400 MG in NA CHLORIDE 0.9% 100 ML IVPB SCH ×3 (00:51→17:37)
[2023-01-05] MEDS: NA CHLORIDE 0.9% 1,000 ML IV SCH ×2 (02:40→13:07)
[2023-01-05] MEDS ORDERED: HYDROCODONE/APAP 5/325 MG TAB PO ONE (04:55)
[2023-01-05 07:22] LABS: Absolute Lymphocytes (CBC) 2.2 K/uL (0.7-4.9); MCV 83.7 fL (80-100); MPV 9.7 fL (7.6-11.3); Platelets 299 thou/uL (152-406); RBC Red Blood Cell Count 3.82 M/uL (3.86-4.86)
[2023-01-05 07:30] LABS: ALT/SGPT 66 U/L (13-56); AST/SGOT 23 U/L (15-37); Albumin 2.1 g/dL (3.4-5.0); Alkaline Phosphatase 123 U/L (45-117); Bicarbonate 28 mEq/L (21-32); Bilirubin Total 0.6 mg/dL (0.2-1.0); Glomerular Filtration Rate 129 ml/min (=/>90); Glucose Level 89 mg/dL (74-106); Potassium 3.7 mEq/L (3.5-5.1); Protein, Total 5.8 g/dL (6.4-8.2); Sodium Level 137 mEq/L (136-145)
[2023-01-05 07:31] LABS: BUN Blood Urea Nitrogen < 1 mg/dL (7-18)
--- NOTE | 2023-01-05 08:20 | P.PN ---
Date of Service: 01/05/23 Chief Complaint: Syncope Subjective: No acute events reported over the weekend. Minimal to no improvement in symptoms. + headache, neck stiffness, photophobia + chills, generalized weakness, fevers + generalized rash + sore throat, oral mucosa ulcerations Physical Examination Temp Pulse Resp BP Pulse Ox 96.8 F 88 16 99/61 99 01/05/23 04:00 01/05/23 04:00 01/05/23 06:01 01/05/23 04:00 01/05/23 06:01 General: Alert, Oriented x3. Generalized weakness. HEENT: Atraumatic, normocephalic. Lips dry. Oral mucosa with ulcerations and petechia of soft palate. Oral thrush. Sore throat. Respiratory: Clear to auscultation bilaterally, Normal air movement Cardiovascular: No edema, Regular rate/rhythm Gastrointestinal: Normal bowel sounds, Soft and benign Integumentary: Maculopapular rash bilateral upper and lower extremities, and back Neurological: Normal speech, Normal tone Laboratory Data - Reviewed Microbiology Data - Reviewed Imagings Data: - CT abdomen pelvis w contrast 12/31: "No acute abnormality is displayed" - CT neck w contrast 12/31: "Unremarkable CT neck" - CT head brain wo contrast 12/31: "1.4 centimeter low-density area near the junction of the right temporal and right occipital lobes. No enhancement. This appears benign. It may represent an unusual appearing arachnoid cyst." Medications List: Reviewed Assessment and Plan Problem List Fever Maculopapular rash Oral Thrush Gastroparesis GERD Depression Anxiety Irritable bowel syndrome Hypoalbuminemia Moderate PCM Stomatitis Concern for Meningitis Patient recently traveled to [facility] 1 month ago. Since her travel, she has been experiencing mouth ulcerations and throat pain. Patient states this has been ongoing for the past 1 month without improvement. Of note, patient was seen by her PCP and was prescribed amoxicillin for presumed strep infection approximately 3 weeks ago; patient then developed adverse reaction of rash at the time and stopped taking the amoxicillin. - CT head brain wo contrast 12/31: "1.4 centimeter low-density area near the junction of the right temporal and right occipital lobes. No enhancement. This appears benign. It may represent an unusual appearing arachnoid cyst." Cultures/Serology - HSV pending - group A strep rapid screen negative - Monoscreen negative - throat culture: normal upper respiratory rodrigo - Blood cultures 12/31: no growth to date s/p lumbar puncture 01/03. CSF glucose: 63 Protein: 52 WBC : pending RBC: pending color/appearance: pending VDRL: nonreactive -Leukocytosis improved (WBC 15.7 -> 10 -> 12.2 -> 7.9) - 24 hour Tmax 103.4 F - Currently on Rocephin IV, Doxycycline PO and Acyclovir IV Recommendations - Concern for meningitis s/p lumbar puncture. CSF glucose WNL. Protein 52. Pending WBC and differential. - * CSF gram stain / culture pending. Follow up with results. - Continue Rocephin, Doxycycline and Acyclovir for now. - Continue with IV hydration - Monitor WBC and fever trends. - Supplemental nutrition / ensure Patient still with fevers, no improvement in symptoms. CSF culture and meningitis panel still pending. Consider transfer for higher level of care. Case discussed with Toshia Sanchez
[2023-01-05] MEDS: MORPHINE 2 MG/ML SYR IV PRN ×3 (08:23→20:29)
[2023-01-05] MEDS: DIPHENHYDRAMINE 12.5MG/5ML LIQ PO SCH ×2 (08:25→20:25)
[2023-01-05] MEDS: PANTOPRAZOLE 40 MG INJ IVP SCH (08:25)
[2023-01-05] MEDS: NYSTATIN 500,000 UNIT/5 ML UDC PO SCH ×4 (08:25→20:27)
[2023-01-05] MEDS: SUCRALFATE 1GM/10ML UCUP PO SCH ×4 (08:25→20:25)
[2023-01-05] MEDS: ENOXAPARIN 40 MG/0.4 ML SQ SCH (08:25)
[2023-01-05] MEDS: POTASS/SODIUM PHOSPHATE 1 PKT POWD.PACK PO SCH ×4 (08:26→20:25)
[2023-01-05] MEDS: ALPRAZOLAM 0.5 MG TABLET PO SCH ×2 (08:26→20:27)
[2023-01-05] MEDS: DOXYCYCLINE 100 MG CAP PO SCH ×2 (08:26→20:28)
[2023-01-05] MEDS: CEFTRIAXONE 1,000 MG in NA CHLORIDE 0.9% 50 ML IVPB SCH (08:26)
[2023-01-05] MEDS: LIDOCAINE VISCOUS 2% 10ML ORAL SOLN PO SCH ×2 (08:27→20:34)
[2023-01-05] MEDS: ONDANSETRON 4 MG/2 ML VIAL IV PRN ×3 (08:30→20:28)
[2023-01-05] MEDS: VALACYCLOVIR 1000 MG PO SCH ×2 (08:35→13:05)
--- NOTE | 2023-01-05 09:13 | P.PN ---
Subjective Date of Service: 01/05/23 Chief Complaint: Syncope generalized body aches, joint pain, sore throat, family at bedside, reports poor PO intake <Irasema Cancino - Last Filed: 01/05/23 16:00> Date of Service: 01/06/23 <Amy Mooney - Last Filed: 01/06/23 07:08> Review of Systems 10-point ROS is otherwise unremarkable <Irasema Cancino - Last Filed: 01/05/23 16:00> Physical Examination - Vital Signs Temperature: 97.9 F Blood Pressure: 116/82 Pulse: 80 Respirations: 17 Pulse Ox (%): 99 - Physical Exam General: Alert, In no apparent distress, Oriented x3 HEENT: Atraumatic, Normocephalic, Other (pharyngtitis, oral ulcerations) Neck: Supple, 2+ carotid pulse no bruit Respiratory: Clear to auscultation bilaterally, Normal air movement Cardiovascular: No edema, Normal pulses Capillary refill: <2 Seconds Gastrointestinal: Normal bowel sounds, Soft and benign Musculoskeletal: No clubbing, No swelling Integumentary: Other (Maculopapular rash bilateral upper and lower ) Neurological: Other (generalized weaknss) <JustintresIrasema - Last Filed: 01/05/23 16:00> - Studies Microbiology Data (last 24 hrs): 12/31/22 15:35 Blood - Blood Aerobic Blood Culture - Final No growth in 5 days. 12/31/22 15:35 Blood - Blood Anaerobic Blood Culture - Final No growth in 5 days. <Amy Mooney - Last Filed: 01/06/23 07:08> Assessment And Plan - Plan Assessment/Plan Stomatitis acute Concern for Meningitis Leukocytosis improved -(WBC 15.7 -> 10 -> 12.2 -> 7.9) - 24 hour Tmax 103.4 F - Currently on Rocephin IV, Doxycycline PO and Acyclovir IV ID consulted Patient recently traveled to [facility] 1 month ago. Since her travel, she has been experiencing mouth ulcerations and throat pain. Patient states this has been ongoing for the past 1 month without improvement. Of note, patient was seen by her PCP and was prescribed amoxicillin for presumed strep infection approximately 3 weeks ago; patient then developed adverse reaction of rash at the time and stopped taking the amoxicillin. PO Benadryl solution, lidocaine viscous solution, Valtrex, Carafate and IV hydration Continue current treatment regimen. Continue supportive care. Benefits Officer consult for hypoalbuminemia, ensure shakes added CT head brain wo contrast 12/31: "1.4 centimeter low-density area near the junction of the right temporal and right occipital lobes. No enhancement. This appears benign. It may represent an unusual appearing arachnoid cyst." Cultures/Serology - HSV pending - group A strep rapid screen negative - Monoscreen negative - throat culture: normal upper respiratory rodrigo - Blood cultures 12/31: no growth to date s/p lumbar puncture 01/03. CSF glucose: 63 Protein: 52 WBC : pending RBC: pending color/appearance: pending VDRL: nonreactive ID Recommendations - Concern for meningitis s/p lumbar puncture. CSF glucose WNL. Protein 52. Pending WBC and differential. - * CSF gram stain / culture pending. Follow up with results. - Continue Rocephin, Doxycycline and Acyclovir for now. - Continue with IV hydration - Monitor WBC and fever trends. - Supplemental nutrition / ensure Patient still with fevers, no improvement in symptoms. CSF culture and meningitis panel still pending. Consider transfer for higher level of care. --Syncope. Likely secondary to dehydration. Continue IV hydration. --Nausea and vomiting. Antiemetics on board. Continue IV hydration. --Headache. Tylenol as needed. --Hx of Gastroparesis. CT abdomen unremarkable for any acute intracranial abnormality. Continue home medication. Continue supportive care. --History of irritable bowel syndrome. Continue home medication. --Depression\\anxiety disorder\\PTSD. Continue home medications. --GERD. Continue Protonix. --Cannabis use disorder. Patient counseled on drug cessation. --UTI POA. Patient placed on antibiotics. Urine cultures pending. --Acute pain. We will manage pain with current pain medication regimen. --DVT prophylaxis with Lovenox subQ. Discharge Plan: Home - Code Status/Comfort Care Code Status: Full Code Physician Review: Patient Assessed, Agree with Above Assessment and Plan Critical Care: No Time Spent Managing PTS Care (In Minutes): 35 <Irasema Cancino - Last Filed: 01/05/23 16:00> Date of Service: 01/05/23 Chart reviewed. Cell count with differential sent. Patient with minimal white blood cells in the spinal fluid. Patient does not have meningitis. Will DC isolation. <Amy Mooney - Last Filed: 01/06/23 07:08>
[2023-01-05 10:53] LABS: Appearance CLEAR (CLEAR); Body Fluid Source CSF; Color of fluid Colorless (COLORLESS)
[2023-01-05 10:54] LABS: Body Fluid WBC 3 /mm^3
[2023-01-05] MEDS: ACETAMINOPHEN 160 MG/5 ML UCUP PO PRN ×2 (11:49→20:22)
[2023-01-05] MEDS ORDERED: POTASSIUM CL SA 10 MEQ TAB PO ONE (12:00)
[2023-01-05] MEDS: ENSURE HIGH PROTEIN 237 ML CAN PO SCH ×2 (16:02→20:34)
[2023-01-05] MEDS: ESZOPICLONE 1 MG TAB PO SCH (20:26)
[2023-01-05] MEDS: PARoxetine HCL 10 MG TAB PO SCH (20:27)
[2023-01-06] MEDS: ACYCLOVIR INJ 400 MG in NA CHLORIDE 0.9% 100 ML IVPB SCH ×3 (01:00→17:14)
[2023-01-06] MEDS: MORPHINE 2 MG/ML SYR IV PRN ×4 (02:11→19:58)
[2023-01-06] MEDS: ONDANSETRON 4 MG/2 ML VIAL IV PRN ×4 (02:12→19:58)
[2023-01-06] MEDS: NA CHLORIDE 0.9% 1,000 ML IV SCH ×2 (02:17→17:22)
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
[2023-01-06] MEDS: ENOXAPARIN 40 MG/0.4 ML SQ SCH (09:00)
[2023-01-06] MEDS: NYSTATIN 500,000 UNIT/5 ML UDC PO SCH ×4 (09:00→20:01)
[2023-01-06] MEDS: LIDOCAINE VISCOUS 2% 10ML ORAL SOLN PO SCH ×2 (09:00→20:01)
[2023-01-06] MEDS: DIPHENHYDRAMINE 12.5MG/5ML LIQ PO SCH ×2 (09:00→19:59)
[2023-01-06] MEDS: SUCRALFATE 1GM/10ML UCUP PO SCH ×4 (09:00→19:59)
[2023-01-06] MEDS: PANTOPRAZOLE 40 MG INJ IVP SCH (09:01)
[2023-01-06] MEDS: ALPRAZOLAM 0.5 MG TABLET PO SCH ×2 (09:01→20:01)
[2023-01-06] MEDS: POTASS/SODIUM PHOSPHATE 1 PKT POWD.PACK PO SCH ×4 (09:01→20:01)
[2023-01-06] MEDS: CEFTRIAXONE 1,000 MG in NA CHLORIDE 0.9% 50 ML IVPB SCH (09:01)
[2023-01-06] MEDS: DOXYCYCLINE 100 MG CAP PO SCH ×2 (09:01→20:01)
[2023-01-06] MEDS: ENSURE HIGH PROTEIN 237 ML CAN PO SCH ×2 (09:02→12:16)
[2023-01-06] MEDS ORDERED: ACETAMINOPHEN 325 MG TABLET PO PRN (09:09)
[2023-01-06 09:59] LABS: Protime INR 1.11
[2023-01-06 10:08] LABS: BUN Blood Urea Nitrogen < 3 mg/dL (7-18); Bicarbonate 27 mEq/L (21-32); Glomerular Filtration Rate 123 ml/min (=/>90); Glucose Level 86 mg/dL (74-106); Potassium 3.7 mEq/L (3.5-5.1); Sodium Level 131 mEq/L (136-145)
[2023-01-06 10:21] LABS: Absolute Lymphocytes (CBC) 1.3 K/uL (0.7-4.9); Hematocrit 32.1 % (36.0-45.0); Lymphocytes % 13.1 % (15.3-44.8); MPV 10.7 fL (7.6-11.3); Platelets 276 thou/uL (152-406); RBC Red Blood Cell Count 3.92 M/uL (3.86-4.86)
[2023-01-06 10:24] LABS: Thyroid Stimulating Hormone 0.332 uIU/mL (0.358-3.740)
[2023-01-06 10:43] LABS: Ferritin 147.5 ng/mL (8-388)
[2023-01-06] MEDS ORDERED: METHYLPREDNISOLONE 125 MG INJ IV ONE (11:00)
[2023-01-06] MEDS: METHYLPREDNISOLONE 125 MG INJ IV SCH ×2 (11:24→17:14)
--- NOTE | 2023-01-06 13:06 | RAD REPORT ---
EXAM DESCRIPTION: MRI - Brain W/Wo Cont - 01/06/2023 11:50 am CLINICAL HISTORY: brain mass with concern for vasculitis COMPARISON: Head CT 12/31/2022 TECHNIQUE: Multiplanar multisequence MRI of the brain performed before and after intravenous adminis tration of 14 mL MultiHance. FINDINGS: No evidence of acute infarct or other diffusion signal abnormality. No evidence of acute intracranial hemorrhage or abnormal extra-axial fluid collections. Mild diffuse parenchymal volume loss. Ventricular caliber otherwise within normal for age. Midline st ructures are unremarkable. Focus of encephalomalacia in the posterior right lateral temporal lobe, with its margins demonstratin g mildly T1 hyperintense linear signal intensity and corresponding linear susceptibility signal abnor mality on the gradient images. No mass effect or midline shift. Major vascular flow voids are preserved. No abnormal enhancement. Mastoid air cells and paranasal sinuses are clear. IMPRESSION: No acute intracranial process. No evidence of abnormal enhancement or mass effect. Lateral right temporal lobe focus of encephalomalacia posteriorly,, suggestive of sequelae of remote ischemia or hemorrhage. No corresponding abnormal enhancement or nodularity.
[2023-01-06] MEDS: ENSURE ENLIVE 237 ML CAN PO SCH ×2 (13:50→20:01)
--- NOTE | 2023-01-06 14:15 | P.PN ---
Subjective Date of Service: 01/06/23 Chief Complaint: Syncope generalized body aches, joint pain, sore throat, family at bedside, reports poor PO intake Review of Systems ROS PERHPI Physical Examination - Vital Signs Temperature: 98.4 F Blood Pressure: 97/55 Pulse: 100 Respirations: 16 Pulse Ox (%): 95 - Physical Exam General: Alert, Mild distress, Other (polyarthritic joint pain, stomatitis) HEENT: Atraumatic, Normocephalic, Other (stomatitis) Neck: Supple, 2+ carotid pulse no bruit Respiratory: Clear to auscultation bilaterally, Normal air movement Cardiovascular: Normal pulses, Regular rate/rhythm Gastrointestinal: Normal bowel sounds, Soft and benign, Other (poor appeitite, +nausea, no vomiting) Musculoskeletal: Other (generalized weakness) Integumentary: Other (Maculopapular rash bilateral upper and lower extremities) Neurological: Normal speech, Normal strength at 5/5 x4 extr, Normal tone - Studies Microbiology Data (last 24 hrs): 12/31/22 15:35 Blood - Blood Aerobic Blood Culture - Final No growth in 5 days. 12/31/22 15:35 Blood - Blood Anaerobic Blood Culture - Final No growth in 5 days. Assessment And Plan - Plan Assessment/Plan Stomatitis acute Concern for Meningitis rule out polyarthritis signifcantly elevated CRP elevated procalcitonin 01/06 MRI brain with contrast ordered automimmune labs ordered, solumedrol added WALTRE, antiprotienase, anti meyloperoxidase (eval vasculitis), HIV PCR, Double stranded DNA eval SLE Leukocytosis improved -(WBC 15.7 -> 10 -> 12.2 -> 7.9) - 24 hour Tmax 103.4 F - Currently on Rocephin IV, Doxycycline PO and Acyclovir IV ID consulted Patient recently traveled to [facility] 1 month ago. Since her travel, she has been experiencing mouth ulcerations and throat pain. Patient states this has been ongoing for the past 1 month without improvement. Of note, patient was seen by her PCP and was prescribed amoxicillin for presumed strep infection approximately 3 weeks ago; patient then developed adverse reaction of rash at the time and stopped taking the amoxicillin. PO Benadryl solution, lidocaine viscous solution, Valtrex, Carafate and IV hydration Continue current treatment regimen. Continue supportive care. Carpenters consult for hypoalbuminemia, ensure shakes added CT head brain wo contrast 12/31: "1.4 centimeter low-density area near the junction of the right temporal and right occipital lobes. No enhancement. This appears benign. It may represent an unusual appearing arachnoid cyst." Cultures/Serology - HSV pending - group A strep rapid screen negative - Monoscreen negative - throat culture: normal upper respiratory rodrigo - Blood cultures 12/31: no growth to date s/p lumbar puncture 01/03. CSF glucose: 63 Protein: 52 WBC : pending RBC: pending color/appearance: pending VDRL: nonreactive ID Recommendations - Concern for meningitis s/p lumbar puncture. CSF glucose WNL. Protein 52. Pending WBC and differential. - * CSF gram stain / culture pending. Follow up with results. - Continue Rocephin, Doxycycline and Acyclovir for now. - Continue with IV hydration - Monitor WBC and fever trends. - Supplemental nutrition / ensure Patient still with fevers, no improvement in symptoms. CSF culture and meningitis panel still pending. Consider transfer for higher level of care --Syncope. Likely secondary to dehydration. Continue IV hydration. --Nausea and vomiting. Antiemetics on board. Continue IV hydration. --Headache. Tylenol as needed. --Hx of Gastroparesis. CT abdomen unremarkable for any acute intracranial abnormality. Continue home medication. Continue supportive care. --History of irritable bowel syndrome. Continue home medication. --Depression\\anxiety disorder\\PTSD. Continue home medications. --GERD. Continue Protonix. --Cannabis use disorder. Patient counseled on drug cessation. --UTI POA. Patient placed on antibiotics. Urine cultures pending. --Acute pain. We will manage pain with current pain medication regimen. --DVT prophylaxis with Lovenox subQ. Discharge Plan: Home - Code Status/Comfort Care Code Status: Full Code Physician Review: Patient Assessed, Agree with Above Assessment and Plan Critical Care: No Time Spent Managing PTS Care (In Minutes): 35
--- NOTE | 2023-01-06 15:12 | P.PN ---
Date of Service: 01/06/23 Chief Complaint: Syncope Subjective: Minimal to no improvement in symptoms. + headache, neck stiffness, chills, generalized weakness, fevers, generalized rash, sore throat, oral mucosa ulcerations Plan of care discussed with patient and her mother at bedside. Physical Examination Temp Pulse Resp BP Pulse Ox 98.4 F 100 H 16 97/55 L 95 01/06/23 14:17 01/06/23 14:17 01/06/23 14:17 01/06/23 14:17 01/06/23 14:17 General: Alert, Oriented x3. Generalized weakness. HEENT: Atraumatic, normocephalic. Lips dry. Oral mucosa with ulcerations and petechia of soft palate. Oral thrush. Sore throat. Respiratory: Clear to auscultation bilaterally, Normal air movement Cardiovascular: No edema, Regular rate/rhythm Gastrointestinal: Normal bowel sounds, Soft and benign Integumentary: Maculopapular rash bilateral upper and lower extremities, and back Neurological: Normal speech, Normal tone Laboratory Data - Reviewed Microbiology Data - Reviewed Imagings Data: - CT abdomen pelvis w contrast 12/31: "No acute abnormality is displayed" - CT neck w contrast 12/31: "Unremarkable CT neck" - CT head brain wo contrast 12/31: "1.4 centimeter low-density area near the junction of the right temporal and right occipital lobes. No enhancement. This appears benign. It may represent an unusual appearing arachnoid cyst." Medications List: Reviewed Assessment and Plan Problem List Fever Maculopapular rash Oral Thrush Gastroparesis GERD Depression Anxiety Irritable bowel syndrome Hypoalbuminemia Moderate PCM Stomatitis Concern for Meningitis Patient recently traveled to [facility] 1 month ago. Since her travel, she has been experiencing mouth ulcerations and throat pain. Patient states this has been ongoing for the past 1 month without improvement. Of note, patient was seen by her PCP and was prescribed amoxicillin for presumed strep infection approximately 3 weeks ago; patient then developed adverse reaction of rash at the time and stopped taking the amoxicillin. - CT head brain wo contrast 12/31: "1.4 centimeter low-density area near the junction of the right temporal and right occipital lobes. No enhancement. This appears benign. It may represent an unusual appearing arachnoid cyst." Cultures/Serology - HSV pending - group A strep rapid screen negative - Monoscreen negative - throat culture: normal upper respiratory rodrigo - Blood cultures 12/31: no growth to date s/p lumbar puncture 01/03. CSF glucose: 63 Protein: 52 WBC : 3 RBC: 0 color/appearance: colorless/clear VDRL: nonreactive -Leukocytosis improved (WBC 15.7 -> 10 -> 12.2 -> 7.9) - 24 hour Tmax 101.1 F - Currently on Rocephin IV, Doxycycline PO and Acyclovir IV Recommendations - Continue Rocephin, Doxycycline and Acyclovir for now. - MRI brain ordered, pending. Follow up with results. - Autoimmune panel pending - CSF gram stain / culture pending - Continue with IV hydration - Monitor WBC and fever trends. - Supplemental nutrition / ensure Case discussed with Toshia Sanchez
[2023-01-06] MEDS: ESZOPICLONE 1 MG TAB PO SCH (19:59)
[2023-01-06] MEDS: PARoxetine HCL 10 MG TAB PO SCH (20:00)
[2023-01-07] MEDS: METHYLPREDNISOLONE 125 MG INJ IV SCH ×4 (00:41→17:01)
[2023-01-07] MEDS: ACYCLOVIR INJ 400 MG in NA CHLORIDE 0.9% 100 ML IVPB SCH ×3 (00:41→17:03)
--- NOTE | 2023-01-07 07:10 | P.PN ---
Subjective Date of Service: 01/07/23 Chief Complaint: Syncope generalized body aches, joint pain, she reports feeling some relief form Steroids, sore throat, reports poor PO intake she tolerating ensure shakes Review of Systems ROS PERHPI Physical Examination - Vital Signs Temperature: 96.7 F Blood Pressure: 119/79 Pulse: 92 Respirations: 17 Pulse Ox (%): 99 Assessment And Plan - Plan Assessment/Plan Stomatitis acute Concern for Meningitis rule out polyarthritis signifcantly elevated CRP elevated procalcitonin 01/06 MRI brain with contrast ordered automimmune labs ordered, solumedrol added WALTER, antiprotienase, anti meyloperoxidase (eval vasculitis), HIV PCR, Double stranded DNA eval SLE Leukocytosis improved -(WBC 15.7 -> 10 -> 12.2 -> 7.9) - 24 hour Tmax 103.4 F - Currently on Rocephin IV, Doxycycline PO and Acyclovir IV ID consulted Patient recently traveled to [facility] 1 month ago. Since her travel, she has been experiencing mouth ulcerations and throat pain. Patient states this has been ongoing for the past 1 month without improvement. Of note, patient was seen by her PCP and was prescribed amoxicillin for presumed strep infection approximately 3 weeks ago; patient then developed adverse reaction of rash at the time and stopped taking the amoxicillin. PO Benadryl solution, lidocaine viscous solution, Valtrex, Carafate and IV hydration Continue current treatment regimen. Continue supportive care. Aeronautics Teacher consult for hypoalbuminemia, ensure shakes added CT head brain wo contrast 12/31: "1.4 centimeter low-density area near the junction of the right temporal and right occipital lobes. No enhancement. This appears benign. It may represent an unusual appearing arachnoid cyst." Cultures/Serology - HSV pending - group A strep rapid screen negative - Monoscreen negative - throat culture: normal upper respiratory rodrigo - Blood cultures 12/31: no growth to date s/p lumbar puncture 01/03. CSF glucose: 63 Protein: 52 WBC : pending RBC: pending color/appearance: pending VDRL: nonreactive ID Recommendations - Concern for meningitis s/p lumbar puncture. CSF glucose WNL. Protein 52. Pending WBC and differential. - * CSF gram stain / culture pending. Follow up with results. - Continue Rocephin, Doxycycline and Acyclovir for now. - Continue with IV hydration - Monitor WBC and fever trends. - Supplemental nutrition / ensure Patient still with fevers, no improvement in symptoms. CSF culture and meningitis panel still pending. Consider transfer for higher level of care --Syncope. Likely secondary to dehydration. Continue IV hydration. --Nausea and vomiting. Antiemetics on board. Continue IV hydration. --Headache. Tylenol as needed. --Hx of Gastroparesis. CT abdomen unremarkable for any acute intracranial abnormality. Continue home medication. Continue supportive care. --History of irritable bowel syndrome. Continue home medication. --Depression\\anxiety disorder\\PTSD. Continue home medications. --GERD. Continue Protonix. --Cannabis use disorder. Patient counseled on drug cessation. --UTI POA. Patient placed on antibiotics. Urine cultures pending. --Acute pain. We will manage pain with current pain medication regimen. --DVT prophylaxis with Lovenox subQ. Discharge Plan: Home - Code Status/Comfort Care Code Status: Full Code Physician Review: Patient Assessed, Agree with Above Assessment and Plan Critical Care: No Time Spent Managing PTS Care (In Minutes): 35
[2023-01-07] MEDS: NA CHLORIDE 0.9% 1,000 ML IV SCH ×2 (08:00→20:35)
[2023-01-07] MEDS: DIPHENHYDRAMINE 12.5MG/5ML LIQ PO SCH ×2 (08:30→20:35)
[2023-01-07] MEDS: SUCRALFATE 1GM/10ML UCUP PO SCH ×4 (08:30→20:51)
[2023-01-07] MEDS: POTASS/SODIUM PHOSPHATE 1 PKT POWD.PACK PO SCH ×4 (08:31→20:33)
[2023-01-07] MEDS: NYSTATIN 500,000 UNIT/5 ML UDC PO SCH ×4 (08:31→20:29)
[2023-01-07] MEDS: PANTOPRAZOLE 40 MG INJ IVP SCH (08:31)
[2023-01-07] MEDS: ALPRAZOLAM 0.5 MG TABLET PO SCH ×2 (08:31→20:32)
[2023-01-07] MEDS: ENSURE ENLIVE 237 ML CAN PO SCH ×3 (08:32→20:54)
[2023-01-07] MEDS: DOXYCYCLINE 100 MG CAP PO SCH ×2 (08:32→20:29)
[2023-01-07] MEDS: ENOXAPARIN 40 MG/0.4 ML SQ SCH (08:32)
[2023-01-07] MEDS: LIDOCAINE VISCOUS 2% 10ML ORAL SOLN PO SCH ×2 (08:33→20:48)
[2023-01-07] MEDS: MORPHINE 2 MG/ML SYR IV PRN ×3 (08:38→22:27)
[2023-01-07] MEDS: ONDANSETRON 4 MG/2 ML VIAL IV PRN ×2 (09:00→21:12)
--- NOTE | 2023-01-07 10:29 | P.PN ---
Date of Service: 01/07/23 Chief Complaint: Syncope Subjective: Patient reports feeling "a little bit better today." She was able to eat some breakfast this morning. Improvement in fevers/chills. + generalized weakness, fatigue, sore throat Physical Examination Temp Pulse Resp BP Pulse Ox 96.7 F L 92 H 18 119/79 94 01/07/23 07:10 01/07/23 07:10 01/07/23 08:38 01/07/23 07:10 01/07/23 08:38 General: Alert, Oriented x3. Generalized weakness. HEENT: Atraumatic, normocephalic. Lips dry. Oral mucosa with ulcerations and petechia of soft palate. Oral thrush. Sore throat. Respiratory: Clear to auscultation bilaterally, Normal air movement Cardiovascular: No edema, Regular rate/rhythm Gastrointestinal: Normal bowel sounds, Soft and benign Integumentary: Maculopapular rash bilateral upper and lower extremities, and back - improving Neurological: Normal speech, Normal tone Laboratory Data - Reviewed Microbiology Data - Reviewed Imagings Data: - CT abdomen pelvis w contrast 12/31: "No acute abnormality is displayed" - CT neck w contrast 12/31: "Unremarkable CT neck" - CT head wo contrast 12/31: "1.4 centimeter low-density area near the junction of the right temporal and right occipital lobes. No enhancement. This appears benign. It may represent an unusual appearing arachnoid cyst." - MRI brain 01/06: "No acute intracranial process. No evidence of abnormal enhancement or mass effect. Lateral right temporal lobe focus of encephalomalacia posteriorly,, suggestive of sequelae of remote ischemia or hemorrhage. No corresponding abnormal enhancement or nodularity. Medications List: Reviewed Assessment and Plan Problem List Fever Maculopapular rash Oral Thrush Gastroparesis GERD Depression Anxiety Irritable bowel syndrome Hypoalbuminemia Moderate PCM Stomatitis Concern for Meningitis Patient recently traveled to [facility] 1 month ago. Since her travel, she has been experiencing mouth ulcerations and throat pain. Patient states this has been ongoing for the past 1 month without improvement. Of note, patient was seen by her PCP and was prescribed amoxicillin for presumed strep infection approximately 3 weeks ago; patient then developed adverse reaction of rash at the time and stopped taking the amoxicillin. Unknown if patient tested positive for strep at the time. Cultures/Serology - HSV pending - group A strep rapid screen negative - Monoscreen negative - throat culture: normal upper respiratory rodrigo - Blood cultures 12/31: no growth to date - s/p lumbar puncture 01/03: CSF glucose 63 , Protein 52, WBC 3, RBC 0, color/appearance= colorless/clear, VDRL nonreactive Previously on Rocephin (12/31-01/07) Doxycycline PO (01/02-) Acyclovir IV (01/04-) - 24 hour Tmax 100.5 F -Leukocytosis improved (WBC 10) Concern for autoimmune process - WALTER, anti-proteinase 3, anti-myeloperoxidase, dsDNA 01/06: pending - Started on solumedrol IV 01/06 Recommendations - Continue Acyclovir for now. - Oral thrush: completed 7 days nystatin swish and swallow with minimal improvement. - Start on Fluconazole IV - Autoimmune panel pending. Continue with solumedrol IV. - Monitor WBC and fever trends. - Supplemental nutrition / ensure Case discussed with Toshia Sanchez
[2023-01-07 13:52] LABS: Absolute Lymphocytes (CBC) 0.9 K/uL (0.7-4.9); Hematocrit 30.2 % (36.0-45.0); Lymphocytes % 9.8 % (15.3-44.8); MCV 81.1 fL (80-100); Platelets 300 thou/uL (152-406); RBC Red Blood Cell Count 3.72 M/uL (3.86-4.86)
[2023-01-07 14:02] LABS: Potassium 3.4 mEq/L (3.5-5.1)
[2023-01-07 15:17] LABS: Blood Morphology Comment NOT SEEN (NOT SEEN); Platelet Estimate ADEQ; White Blood Cell Scan OK (OK)
[2023-01-07] MEDS: PARoxetine HCL 10 MG TAB PO SCH (20:28)
[2023-01-07] MEDS: ESZOPICLONE 1 MG TAB PO SCH (21:00)
[2023-01-08] MEDS: ACYCLOVIR INJ 400 MG in NA CHLORIDE 0.9% 100 ML IVPB SCH ×3 (01:14→17:19)
[2023-01-08 01:38] VITALS: BMI 24.1
[2023-01-08] MEDS: MORPHINE 2 MG/ML SYR IV PRN ×5 (05:37→22:33)
[2023-01-08] MEDS: METHYLPREDNISOLONE 125 MG INJ IV SCH ×4 (05:37→17:19)
[2023-01-08] MEDS: ONDANSETRON 4 MG/2 ML VIAL IV PRN ×3 (05:37→22:33)
[2023-01-08 06:06] LABS: Absolute Lymphocytes (CBC) 0.7 K/uL (0.7-4.9); Hematocrit 29.2 % (36.0-45.0); MCV 82.7 fL (80-100); MPV 9.4 fL (7.6-11.3); Platelets 323 thou/uL (152-406); RBC Red Blood Cell Count 3.54 M/uL (3.86-4.86)
[2023-01-08 06:21] LABS: Magnesium 1.7 mg/dL (1.6-2.4); Potassium 3.5 mEq/L (3.5-5.1)
[2023-01-08] MEDS ORDERED: FLUCONAZOLE 100mg IVPB 100 MG/50 ML BAG IV SCH (08:00)
[2023-01-08] MEDS: NYSTATIN 500,000 UNIT/5 ML UDC PO SCH ×2 (08:18→12:16)
[2023-01-08] MEDS: SUCRALFATE 1GM/10ML UCUP PO SCH ×4 (08:18→20:23)
[2023-01-08] MEDS: POTASS/SODIUM PHOSPHATE 1 PKT POWD.PACK PO SCH ×4 (08:19→20:22)
[2023-01-08] MEDS: DIPHENHYDRAMINE 12.5MG/5ML LIQ PO SCH ×2 (08:19→20:21)
[2023-01-08] MEDS: PANTOPRAZOLE 40 MG INJ IVP SCH (08:19)
[2023-01-08] MEDS: ALPRAZOLAM 0.5 MG TABLET PO SCH ×2 (08:19→20:22)
[2023-01-08] MEDS: ENSURE ENLIVE 237 ML CAN PO SCH ×3 (08:19→20:22)
[2023-01-08] MEDS: ENOXAPARIN 40 MG/0.4 ML SQ SCH (08:20)
[2023-01-08] MEDS: LIDOCAINE VISCOUS 2% 10ML ORAL SOLN PO SCH ×2 (08:20→20:18)
--- NOTE | 2023-01-08 08:23 | P.PN ---
Date of Service: 01/08/23 Chief Complaint: Syncope Subjective: Patient is sitting up in bed this morning. She reports feeling better today and able to eat half of her breakfast, which she states is the most she has eaten in weeks. + joint pain/stiffness, primarily of the ankles,knees hips + sore throat + nausea Physical Examination Temp Pulse Resp BP Pulse Ox 96.8 F 74 17 125/87 94 01/08/23 04:00 01/08/23 04:00 01/08/23 04:00 01/08/23 04:00 01/08/23 04:00 General: Alert, Oriented x3. Generalized weakness. HEENT: Atraumatic, normocephalic. Lips dry. Oral mucosa with ulcerations erythema of soft palate. Oral thrush. Respiratory: Clear to auscultation bilaterally, Normal air movement Cardiovascular: No edema, Regular rate/rhythm Gastrointestinal: Normal bowel sounds, Soft and benign Msk: generalized aching/stiffness, slightly improving Integumentary: Maculopapular rash bilateral upper and lower extremities improving Neurological: Normal speech, Normal tone Laboratory Data - Reviewed Microbiology Data - Reviewed Imagings Data: - CT abdomen pelvis w contrast 12/31: "No acute abnormality is displayed" - CT neck w contrast 12/31: "Unremarkable CT neck" - CT head wo contrast 12/31: "1.4 centimeter low-density area near the junction of the right temporal and right occipital lobes. No enhancement. This appears benign. It may represent an unusual appearing arachnoid cyst." - MRI brain 01/06: "No acute intracranial process. No evidence of abnormal enhancement or mass effect. Lateral right temporal lobe focus of encephalomalacia posteriorly, suggestive of sequelae of remote ischemia or hemorrhage. No corresponding abnormal enhancement or nodularity. Medications List: Reviewed Assessment and Plan Problem List Fever Maculopapular rash Oral Thrush Gastroparesis GERD Depression Anxiety Irritable bowel syndrome Hypoalbuminemia Moderate PCM Stomatitis / Oral ulcerations Concern for Meningitis vs Autoimmune/Rheum - group A strep rapid screen negative - Monoscreen negative - throat culture: normal upper respiratory rodrigo - Blood cultures 12/31: no growth to date - s/p lumbar puncture 01/03: CSF glucose 63 , Protein 52, WBC 3, RBC 0, color/appearance= colorless/clear, VDRL nonreactive - HSV pending Previously on Rocephin (12/31-01/07) and Doxycycline PO (01/02-01/08) Currently on Acyclovir IV (01/04-) and Solu-Medrol (01/06-) - Afebrile 48 hours - WBC 18, increased today- of note, patient was started on solumedrol 60mg IV q6h. Continue to monitor. Concern for autoimmune process - WALTER, anti-proteinase 3, anti-myeloperoxidase, dsDNA 01/06: pending - Started on solumedrol IV 01/06 Recommendations - Continue Acyclovir for now - Pending HSV results; follow up. - Improvement in symptoms on solumedrol, continue for now. - Oral thrush: Continue Fluconazole x 7 days (01/08-01/14). Switch to PO as tolerated. - Autoimmune panel pending. Follow up with results. - Monitor WBC and fever trends. - Supplemental nutrition Case discussed with Toshia Sanchez
--- NOTE | 2023-01-08 08:31 | P.PN ---
Subjective Date of Service: 01/08/23 Chief Complaint: Syncope generalized body aches, joint pain, she reports feeling some relief form Steroids, sore throat, reports poor PO intake she tolerating ensure shakes General: Alert, Oriented x3. Generalized weakness. HEENT: Atraumatic, normocephalic. Lips dry. Oral mucosa with ulcerations erythema of soft palate. Oral thrush. Respiratory: Clear to auscultation bilaterally, Normal air movement Cardiovascular: No edema, Regular rate/rhythm Gastrointestinal: Normal bowel sounds, Soft and benign Msk: generalized aching/stiffness, slightly improving Integumentary: Maculopapular rash bilateral upper and lower extremities improving Neurological: Normal speech, Normal tone Physical Examination - Vital Signs Temperature: 96.7 F Blood Pressure: 119/79 Pulse: 92 Respirations: 17 Pulse Ox (%): 99 Assessment And Plan - Plan Assessment/Plan Stomatitis acute recently traveled to [facility] 1 month ago. Since her travel, she has been experiencing mouth ulcerations and throat pain. Patient states this has been ongoing for the past 1 month without improvement. seen by her PCP and was prescribed amoxicillin for presumed strep infection approximately 3 weeks ago; patient then developed adverse reaction of rash at the time and stopped taking the amoxicillin. - group A strep rapid screen negative - Monoscreen negative - throat culture: normal upper respiratory rodrigo - Blood cultures 12/31: no growth to date - HSV pending PO Benadryl solution, lidocaine viscous solution, Valtrex, Carafate and IV hydration Continue current treatment regimen. Continue supportive care. Supervisor Photoengraving consult for hypoalbuminemia, ensure shakes added Oral thrush: Continue Fluconazole x 7 days (01/08-01/14). Switch to PO as tolerated. Concern for Meningitis ruled out CT head brain wo contrast 12/31: "1.4 centimeter low-density area near the junction of the right temporal and right occipital lobes. No enhancement. This appears benign. It may represent an unusual appearing arachnoid cyst." MRI of the brain MPRESSION: No acute intracranial process. No evidence of abnormal enhancement or mass effect.Lateral right temporal lobe focus of encephalomalacia posteriorly,, suggestive of sequelae of remote ischemia or hemorrhage. No corresponding abnormal enhancement or nodularity. s/p lumbar puncture 01/03. CSF glucose: 63 Protein: 52 WBC : pending RBC: pending color/appearance: pending VDRL: nonreactive Cultures/Serology - HSV pending - group A strep rapid screen negative - Monoscreen negative - throat culture: normal upper respiratory rodrigo - Blood cultures 12/31: no growth to date Concern for autoimmune process - WALTER, anti-proteinase 3, anti-myeloperoxidase, dsDNA 01/06: pending - Started on solumedrol IV 01/06 automimmune labs ordered, solumedrol added polyarthritis signifcantly elevated CRP elevated procalcitonin Leukocytosis improved - Currently on Rocephin IV, Doxycycline PO and Acyclovir IV ID consulted --Syncope. Improved Likely secondary to dehydration. Continue IV hydration. --Nausea and vomiting. Improved Antiemetics on board. Continue IV hydration. --Headache. Improved Tylenol as needed. --Hx of Gastroparesis. CT abdomen unremarkable for any acute intracranial abnormality. Continue home medication. Continue supportive care. --History of irritable bowel syndrome. Continue home medication. --Depression\\anxiety disorder\\PTSD. Continue home medications. --GERD. Continue Protonix. --Cannabis use disorder. Patient counseled on drug cessation. --UTI POA. Patient placed on antibiotics. Urine cultures pending. --Acute pain. We will manage pain with current pain medication regimen. --DVT prophylaxis with Lovenox subQ. Discharge Plan: Home - Code Status/Comfort Care Code Status: Full Code Physician Review: Patient Assessed, Agree with Above Assessment and Plan Critical Care: No Time Spent Managing PTS Care (In Minutes): 35
[2023-01-08] MEDS ORDERED: MAGNESIUM SULFATE 1 gm IVPB 1 GM/100 ML BAG IV ONE (09:00)
[2023-01-08] MEDS: FLUCONAZOLE 200mg IVPB 200 MG/100 ML BAG IV SCH (09:19)
[2023-01-08] MEDS: NA CHLORIDE 0.9% 1,000 ML IV SCH ×3 (10:40→20:23)
[2023-01-08] MEDS: ESZOPICLONE 1 MG TAB PO SCH (20:20)
[2023-01-08] MEDS: PARoxetine HCL 10 MG TAB PO SCH (20:21)
[2023-01-09] MEDS: METHYLPREDNISOLONE 125 MG INJ IV SCH ×2 (00:04→05:42)
[2023-01-09] MEDS: ACYCLOVIR INJ 400 MG in NA CHLORIDE 0.9% 100 ML IVPB SCH ×3 (00:04→16:14)
[2023-01-09] MEDS: MORPHINE 2 MG/ML SYR IV PRN ×5 (02:45→20:35)
--- NOTE | 2023-01-09 08:15 | P.PN ---
Date of Service: 01/09/23 Chief Complaint: Syncope Subjective: Improving. Patient seen and examined at bedside. She reports feeling better today, still having muscle/joint pain but slightly improving. Physical Examination Temp Pulse Resp BP Pulse Ox 98.3 F 85 18 137/89 98 01/08/23 19:39 01/08/23 19:39 01/09/23 02:45 01/08/23 19:39 01/09/23 02:45 General: Alert, Oriented x3. Generalized weakness. HEENT: Atraumatic, normocephalic. Lips dry. Oral mucosa with ulcerations erythema of soft palate. Oral thrush. Respiratory: Clear to auscultation bilaterally, Normal air movement Cardiovascular: No edema, Regular rate/rhythm Gastrointestinal: Normal bowel sounds, Soft and benign Msk: generalized aching/stiffness, slightly improving Integumentary: Maculopapular rash bilateral upper and lower extremities improving Neurological: Normal speech, Normal tone Laboratory Data - Reviewed Microbiology Data - Reviewed Imagings Data: - CT abdomen pelvis w contrast 12/31: "No acute abnormality is displayed" - CT neck w contrast 12/31: "Unremarkable CT neck" - CT head wo contrast 12/31: "1.4 centimeter low-density area near the junction of the right temporal and right occipital lobes. No enhancement. This appears benign. It may represent an unusual appearing arachnoid cyst." - MRI brain 01/06: "No acute intracranial process. No evidence of abnormal enhancement or mass effect. Lateral right temporal lobe focus of encephalomalacia posteriorly, suggestive of sequelae of remote ischemia or hemorrhage. No corresponding abnormal enhancement or nodularity. Medications List: Reviewed Assessment and Plan Problem List Fever Maculopapular rash Oral Thrush Gastroparesis GERD Depression Anxiety Irritable bowel syndrome Hypoalbuminemia Moderate PCM Stomatitis / Oral ulcerations Concern for Meningitis vs Autoimmune/Rheum - group A strep rapid screen negative - Monoscreen negative - throat culture: normal upper respiratory rodrigo - Blood cultures 12/31: no growth to date - s/p lumbar puncture 01/03: CSF glucose 63 , Protein 52, WBC 3, RBC 0, color/appearance= colorless/clear, VDRL nonreactive - HSV pending Previously on Rocephin (12/31-01/07) and Doxycycline PO (01/02-01/08) Currently on Acyclovir IV (01/04-) and Solu-Medrol (01/06-) - Afebrile 48 hours - WBC 18, increased today- of note, patient was started on solumedrol 60mg IV q6h. Continue to monitor. Concern for autoimmune process - WALTER, anti-proteinase 3, anti-myeloperoxidase, dsDNA 01/06: pending - Started on solumedrol IV 01/06 Recommendations - Continue Acyclovir for now - Pending HSV results; follow up. - Improvement in symptoms on solumedrol, continue for now. - Oral thrush: Continue Fluconazole x 7 days (01/08-01/14). Switch to PO as tolerated. - Autoimmune panel pending. Follow up with results. - Monitor WBC and fever trends. - Supplemental nutrition Case discussed with Toshia Sanchez
[2023-01-09 08:16] LABS: Absolute Lymphocytes (CBC) 0.5 K/uL (0.7-4.9); Hematocrit 30.4 % (36.0-45.0); Lymphocytes % 4.9 % (15.3-44.8); MPV 9.9 fL (7.6-11.3); Platelets 318 thou/uL (152-406); RBC Red Blood Cell Count 3.66 M/uL (3.86-4.86)
[2023-01-09 08:26] LABS: Albumin 2.3 g/dL (3.4-5.0); Bilirubin Total 0.3 mg/dL (0.2-1.0); C-Reactive Protein 29.9 mg/L (<3.00); Potassium 3.4 mEq/L (3.5-5.1)
[2023-01-09] MEDS: FLUCONAZOLE 200mg IVPB 200 MG/100 ML BAG IV SCH (08:28)
[2023-01-09] MEDS: SUCRALFATE 1GM/10ML UCUP PO SCH ×4 (08:28→20:33)
[2023-01-09] MEDS: POTASS/SODIUM PHOSPHATE 1 PKT POWD.PACK PO SCH ×4 (08:29→20:34)
[2023-01-09] MEDS: ALPRAZOLAM 0.5 MG TABLET PO SCH ×2 (08:29→20:34)
[2023-01-09] MEDS: PANTOPRAZOLE 40 MG INJ IVP SCH (08:29)
[2023-01-09] MEDS: LIDOCAINE VISCOUS 2% 10ML ORAL SOLN PO SCH ×2 (08:29→20:08)
[2023-01-09] MEDS: ENSURE ENLIVE 237 ML CAN PO SCH ×3 (08:29→19:39)
[2023-01-09] MEDS: ENOXAPARIN 40 MG/0.4 ML SQ SCH (08:29)
[2023-01-09] MEDS: DIPHENHYDRAMINE 12.5MG/5ML LIQ PO SCH ×2 (08:29→20:32)
[2023-01-09 09:11] LABS: Blood Morphology Comment NOT SEEN (NOT SEEN); Platelet Estimate ADEQ
[2023-01-09] MEDS ORDERED: predniSONE 20 MG TAB PO ONE (09:30)
[2023-01-09] MEDS: ONDANSETRON 4 MG/2 ML VIAL IV PRN ×2 (09:40→20:35)
--- NOTE | 2023-01-09 10:28 | P.PN ---
Subjective Date of Service: 01/09/23 Chief Complaint: Syncope generalized body aches, joint pain, she reports feeling some relief form Steroids, sore throat, reports poor PO intake she tolerating ensure shakes General: Alert, Oriented x3. Generalized weakness. HEENT: Atraumatic, normocephalic. Lips dry. Oral mucosa with ulcerations erythema of soft palate. Oral thrush. Respiratory: Clear to auscultation bilaterally, Normal air movement Cardiovascular: No edema, Regular rate/rhythm Gastrointestinal: Normal bowel sounds, Soft and benign Msk: generalized aching/stiffness, slightly improving Integumentary: Maculopapular rash bilateral upper and lower extremities improving Neurological: Normal speech, Normal tone Physical Examination - Vital Signs Temperature: 97.5 F Blood Pressure: 140/84 Pulse: 57 Respirations: 17 Pulse Ox (%): 97 Assessment And Plan - Plan Assessment/Plan Stomatitis acute recently traveled to [facility] 1 month ago. Since her travel, she has been experiencing mouth ulcerations and throat pain. Patient states this has been ongoing for the past 1 month without improvement. seen by her PCP and was prescribed amoxicillin for presumed strep infection approximately 3 weeks ago; patient then developed adverse reaction of rash at the time and stopped taking the amoxicillin. - group A strep rapid screen negative - Monoscreen negative - throat culture: normal upper respiratory rodrigo - Blood cultures 12/31: no growth to date - HSV pending PO Benadryl solution, lidocaine viscous solution, Valtrex, Carafate and IV hydration Continue current treatment regimen. Continue supportive care. Transport Tank Technician consult for hypoalbuminemia, tolerating ensure shakes added albumin 2.0, slowly trending up 2.3, Oral thrush: Continue Fluconazole x 7 days (01/08-01/14). Switch to PO as tolerated. elevated CRP trending down IV solumedrol changed to PO prednisone 178H, today 29.90 Concern for Meningitis ruled out CT head brain wo contrast 12/31: "1.4 centimeter low-density area near the junction of the right temporal and right occipital lobes. No enhancement. This appears benign. It may represent an unusual appearing arachnoid cyst." MRI of the brain MPRESSION: No acute intracranial process. No evidence of abnormal enhancement or mass effect.Lateral right temporal lobe focus of encephalomalacia posteriorly,, suggestive of sequelae of remote ischemia or hemorrhage. No corresponding abnormal enhancement or nodularity. s/p lumbar puncture 01/03. CSF glucose: 63 Protein: 52 WBC : pending RBC: pending color/appearance: pending VDRL: nonreactive Cultures/Serology - HSV pending - group A strep rapid screen negative - Monoscreen negative - throat culture: normal upper respiratory rodrigo - Blood cultures 12/31: no growth to date Concern for autoimmune process - WALTER, anti-proteinase 3, anti-myeloperoxidase, dsDNA 01/06: pending - Started on solumedrol IV 01/06 automimmune labs ordered, solumedrol added polyarthritis signifcantly elevated CRP elevated procalcitonin Leukocytosis improved complteted Rocephin IV, Doxycyclin, currently on and Acyclovir IV WBC trending down --Syncope. Improved Likely secondary to dehydration. Continue IV hydration. --Nausea and vomiting. Improved Antiemetics on board. Continue IV hydration. --Headache. Improved Tylenol as needed. --Hx of Gastroparesis. CT abdomen unremarkable for any acute intracranial abnormality. Continue home medication. Continue supportive care. --History of irritable bowel syndrome. Continue home medication. --Depression\\anxiety disorder\\PTSD. Continue home medications. --GERD. Continue Protonix. --Cannabis use disorder. Patient counseled on drug cessation. --UTI POA. Patient placed on antibiotics. Urine cultures pending. --Acute pain. We will manage pain with current pain medication regimen. --DVT prophylaxis with Lovenox subQ. Discharge Plan: Home - Code Status/Comfort Care Code Status: Full Code Physician Review: Patient Assessed, Agree with Above Assessment and Plan Critical Care: No Time Spent Managing PTS Care (In Minutes): 35
[2023-01-09] MEDS: NA CHLORIDE 0.9% 1,000 ML IV SCH ×2 (12:29→20:32)
[2023-01-09] MEDS ORDERED: CEFTRIAXONE 1,000 MG in NA CHLORIDE 0.9% 50 ML IVPB ONE (15:00)
[2023-01-09] MEDS: predniSONE 20 MG TAB PO SCH (20:33)
[2023-01-09] MEDS: ESZOPICLONE 1 MG TAB PO SCH (20:34)
[2023-01-09] MEDS: PARoxetine HCL 10 MG TAB PO SCH (20:34)
[2023-01-10] MEDS: ACYCLOVIR INJ 400 MG in NA CHLORIDE 0.9% 100 ML IVPB SCH ×2 (00:35→10:05)
[2023-01-10] MEDS: MORPHINE 2 MG/ML SYR IV PRN ×6 (00:35→22:25)
[2023-01-10] MEDS: ONDANSETRON 4 MG/2 ML VIAL IV PRN ×4 (04:48→22:26)
[2023-01-10] MEDS: SUCRALFATE 1GM/10ML UCUP PO SCH ×4 (08:41→22:21)
[2023-01-10] MEDS: ALPRAZOLAM 0.5 MG TABLET PO SCH ×2 (08:41→22:24)
[2023-01-10] MEDS: DIPHENHYDRAMINE 12.5MG/5ML LIQ PO SCH ×2 (08:41→22:21)
[2023-01-10] MEDS: PANTOPRAZOLE 40 MG INJ IVP SCH (08:41)
[2023-01-10] MEDS: POTASS/SODIUM PHOSPHATE 1 PKT POWD.PACK PO SCH ×4 (08:41→22:24)
[2023-01-10] MEDS: CEFTRIAXONE 1,000 MG in NA CHLORIDE 0.9% 50 ML IVPB SCH (08:42)
[2023-01-10] MEDS: predniSONE 20 MG TAB PO SCH ×2 (08:42→22:25)
[2023-01-10] MEDS: FLUCONAZOLE 200mg IVPB 200 MG/100 ML BAG IV SCH (08:42)
[2023-01-10] MEDS: LIDOCAINE VISCOUS 2% 10ML ORAL SOLN PO SCH ×2 (08:44→21:00)
[2023-01-10] MEDS: ENOXAPARIN 40 MG/0.4 ML SQ SCH (08:44)
[2023-01-10] MEDS: ENSURE ENLIVE 237 ML CAN PO SCH ×3 (08:44→21:00)
--- NOTE | 2023-01-10 14:22 | P.PN ---
Subjective Date of Service: 01/10/23 Chief Complaint: Syncope generalized body aches, joint pain, she reports feeling some relief form Steroids, sore throat, reports poor PO intake she tolerating ensure shakes General: Alert, Oriented x3. Generalized weakness. HEENT: Atraumatic, normocephalic. Lips dry. Oral mucosa with ulcerations erythema of soft palate. Oral thrush. Respiratory: Clear to auscultation bilaterally, Normal air movement Cardiovascular: No edema, Regular rate/rhythm Gastrointestinal: Normal bowel sounds, Soft and benign Msk: generalized aching/stiffness, slightly improving Integumentary: Maculopapular rash bilateral upper and lower extremities improving Neurological: Normal speech, Normal tone Review of Systems per HPI Physical Examination - Vital Signs Temperature: 97.6 F Blood Pressure: 130/84 Pulse: 51 Respirations: 18 Pulse Ox (%): 98 Assessment And Plan - Plan Assessment/Plan Stomatitis acute recently traveled to [facility] 1 month ago. Since her travel, she has been experiencing mouth ulcerations and throat pain. Patient states this has been ongoing for the past 1 month without improvement. seen by her PCP and was prescribed amoxicillin for presumed strep infection approximately 3 weeks ago; patient then developed adverse reaction of rash at the time and stopped taking the amoxicillin. - group A strep rapid screen negative - Monoscreen negative - throat culture: normal upper respiratory rodrigo - Blood cultures 12/31: no growth to date - HSV pending PO Benadryl solution, lidocaine viscous solution, Valtrex, Carafate and IV hydration Continue current treatment regimen. Continue supportive care. Pigment Making Supervisor consult for hypoalbuminemia, tolerating ensure shakes added albumin 2.0, slowly trending up 2.3, Oral thrush: Continue Fluconazole x 7 days (01/08-01/14). Switch to PO as tolerated. elevated CRP trending down IV solumedrol changed to PO prednisone 178H, today 29.90 Concern for Meningitis ruled out CT head brain wo contrast 12/31: "1.4 centimeter low-density area near the junction of the right temporal and right occipital lobes. No enhancement. This appears benign. It may represent an unusual appearing arachnoid cyst." MRI of the brain MPRESSION: No acute intracranial process. No evidence of abnormal enhancement or mass effect.Lateral right temporal lobe focus of encephalomalacia posteriorly,, suggestive of sequelae of remote ischemia or hemorrhage. No corresponding abnormal enhancement or nodularity. s/p lumbar puncture 01/03. CSF glucose: 63 Protein: 52 WBC : pending RBC: pending color/appearance: pending VDRL: nonreactive Cultures/Serology - HSV pending - group A strep rapid screen negative - Monoscreen negative - throat culture: normal upper respiratory rodrigo - Blood cultures 12/31: no growth to date Concern for autoimmune process - WALTER, anti-proteinase 3, anti-myeloperoxidase, dsDNA 01/06: pending - Started on solumedrol IV 01/06 automimmune labs ordered, solumedrol added polyarthritis-improving signifcantly elevated CRP-improving elevated procalcitonin Leukocytosis improved completed Doxycyclin, currently on and Acyclovir IV, Rocephin IV, WBC trending down --Syncope. Improved Likely secondary to dehydration. Continue IV hydration. --Nausea and vomiting. Improved Antiemetics on board. Continue IV hydration. --Headache. Improved Tylenol as needed. --Hx of Gastroparesis. CT abdomen unremarkable for any acute intracranial abnormality. Continue home medication. Continue supportive care. --History of irritable bowel syndrome. Continue home medication. --Depression\\anxiety disorder\\PTSD. Continue home medications. --GERD. Continue Protonix. --Cannabis use disorder. Patient counseled on drug cessation. --UTI POA. Patient placed on antibiotics. Urine cultures pending. --Acute pain. We will manage pain with current pain medication regimen. --DVT prophylaxis with Lovenox subQ. Discharge Plan: Home - Code Status/Comfort Care Code Status: Full Code Physician Review: Patient Assessed, Agree with Above Assessment and Plan Critical Care: No Time Spent Managing PTS Care (In Minutes): 35
[2023-01-10] MEDS: VALACYCLOVIR 500 MG TAB PO SCH ×2 (14:27→22:24)
[2023-01-10] MEDS: ESZOPICLONE 1 MG TAB PO SCH (21:00)
[2023-01-10] MEDS: PARoxetine HCL 10 MG TAB PO SCH (22:23)
--- NOTE | 2023-01-11 08:15 | P.PN ---
Subjective Date of Service: 01/11/23 Chief Complaint: Syncope generalized body aches, joint pain, she reports feeling some relief form Steroids, sore throat, reports poor PO intake she tolerating ensure shakes General: Alert, Oriented x3. Generalized weakness. HEENT: Atraumatic, normocephalic. Lips dry. Oral mucosa with ulcerations erythema of soft palate. Oral thrush. Respiratory: Clear to auscultation bilaterally, Normal air movement Cardiovascular: No edema, Regular rate/rhythm Gastrointestinal: Normal bowel sounds, Soft and benign Msk: generalized aching/stiffness, slightly improving Integumentary: Maculopapular rash bilateral upper and lower extremities improving Neurological: Normal speech, Normal tone <Irasema Cancino - Last Filed: 01/11/23 08:15> Date of Service: 01/11/23 <Amy Mooney - Last Filed: 01/11/23 12:12> Physical Examination - Vital Signs Temperature: 97 F Blood Pressure: 149/88 Pulse: 49 Respirations: 17 Pulse Ox (%): 95 <Irasema Cancino - Last Filed: 01/11/23 08:15> Assessment And Plan - Plan Assessment/Plan Stomatitis acute recently traveled to [facility] 1 month ago. Since her travel, she has been experiencing mouth ulcerations and throat pain. Patient states this has been ongoing for the past 1 month without improvement. seen by her PCP and was prescribed amoxicillin for presumed strep infection approximately 3 weeks ago; patient then developed adverse reaction of rash at the time and stopped taking the amoxicillin. - group A strep rapid screen negative - Monoscreen negative - throat culture: normal upper respiratory rodrigo - Blood cultures 12/31: no growth to date - HSV pending PO Benadryl solution, lidocaine viscous solution, Valtrex, Carafate and IV hydration Continue current treatment regimen. Continue supportive care. Autism Specialist consult for hypoalbuminemia, tolerating ensure shakes added albumin 2.0, slowly trending up 2.3, Oral thrush: Continue Fluconazole x 7 days (01/08-01/14). Switch to PO as tolerated. elevated CRP trending down IV solumedrol changed to PO prednisone 178H, today 29.90 Concern for Meningitis ruled out CT head brain wo contrast 12/31: "1.4 centimeter low-density area near the junction of the right temporal and right occipital lobes. No enhancement. This appears benign. It may represent an unusual appearing arachnoid cyst." MRI of the brain MPRESSION: No acute intracranial process. No evidence of abnormal enhancement or mass effect.Lateral right temporal lobe focus of encephalomalacia posteriorly,, suggestive of sequelae of remote ischemia or hemorrhage. No corresponding abnormal enhancement or nodularity. s/p lumbar puncture 01/03. CSF glucose: 63 Protein: 52 WBC : pending RBC: pending color/appearance: pending VDRL: nonreactive Cultures/Serology - HSV pending - group A strep rapid screen negative - Monoscreen negative - throat culture: normal upper respiratory rodrigo - Blood cultures 12/31: no growth to date Concern for autoimmune process - WALTER, anti-proteinase 3, anti-myeloperoxidase, dsDNA 01/06: pending - Started on solumedrol IV 01/06 automimmune labs ordered, solumedrol added polyarthritis-improving signifcantly elevated CRP-improving elevated procalcitonin Leukocytosis improved completed Doxycyclin, currently on and Acyclovir IV, Rocephin IV, WBC trending down --Syncope. Improved Likely secondary to dehydration. Continue IV hydration. --Nausea and vomiting. Improved Antiemetics on board. Continue IV hydration. --Headache. Improved Tylenol as needed. --Hx of Gastroparesis. CT abdomen unremarkable for any acute intracranial abnormality. Continue home medication. Continue supportive care. --History of irritable bowel syndrome. Continue home medication. --Depression\\anxiety disorder\\PTSD. Continue home medications. --GERD. Continue Protonix. --Cannabis use disorder. Patient counseled on drug cessation. --UTI POA. Patient placed on antibiotics. Urine cultures pending. --Acute pain. We will manage pain with current pain medication regimen. --DVT prophylaxis with Lovenox subQ. Physician Review: Patient Assessed, Agree with Above Assessment and Plan <Irasema Cancino - Last Filed: 01/11/23 08:15> Date of Service: 01/11/23 Chart been reviewed. Agree with above exam and findings. Patient was worked up for possible infectious pathology. Patient HIV was negative. Patient with severely elevated CRP. Patient's improved with IV steroids. Patient was nonambulatory prior to starting steroids with fevers up to 103. Patient was also having a rash on the upper and lower extremities. Patient's oral lesions were significant. Currently much of these findings are improved. Fevers have resolved. Patient still with some joint pain. She will need to follow-up as an outpatient with rheumatology. Will contact [facility] rheumatology and Dr. Cooper at [facility] to try to get her into follow-up as an outpatient. Monkeypox antibodies pending as well. Patient overall has improved and anticipate discharge tomorrow. She will can need continued antiviral therapy and tapering dose of steroids. She will need to follow-up with rheumatology and she will also need to follow-up with PCP. If antibody panel does not confirm or assist with diagnosis she may need biopsy of oral ulcers with ENT referral. <Amy Mooney - Last Filed: 01/11/23 12:12>
[2023-01-11 08:25] LABS: Lymphocytes % 15.5 % (15.3-44.8); MPV 9.2 fL (7.6-11.3); Platelets 336 thou/uL (152-406); RBC Red Blood Cell Count 4.04 M/uL (3.86-4.86)
[2023-01-11 08:40] LABS: C-Reactive Protein 14.3 mg/L (<3.00); Magnesium 1.8 mg/dL (1.6-2.4); Potassium 3.4 mEq/L (3.5-5.1)
[2023-01-11] MEDS: LIDOCAINE VISCOUS 2% 10ML ORAL SOLN PO SCH ×2 (09:00→19:54)
[2023-01-11] MEDS: ENSURE ENLIVE 237 ML CAN PO SCH ×3 (09:00→20:31)
[2023-01-11] MEDS: POTASS/SODIUM PHOSPHATE 1 PKT POWD.PACK PO SCH ×4 (09:00→20:34)
[2023-01-11] MEDS: ALPRAZOLAM 0.5 MG TABLET PO SCH ×2 (09:34→20:33)
[2023-01-11] MEDS: VALACYCLOVIR 500 MG TAB PO SCH ×3 (09:34→20:32)
[2023-01-11] MEDS: CEFTRIAXONE 1,000 MG in NA CHLORIDE 0.9% 50 ML IVPB SCH (09:35)
[2023-01-11] MEDS: SUCRALFATE 1GM/10ML UCUP PO SCH ×4 (09:35→20:31)
[2023-01-11] MEDS: predniSONE 20 MG TAB PO SCH ×2 (09:35→20:34)
[2023-01-11] MEDS: FLUCONAZOLE 100 MG TAB PO SCH (09:35)
[2023-01-11] MEDS: PANTOPRAZOLE 40 MG INJ IVP SCH (09:43)
[2023-01-11] MEDS: DIPHENHYDRAMINE 12.5MG/5ML LIQ PO SCH ×2 (09:43→20:31)
[2023-01-11] MEDS: ENOXAPARIN 40 MG/0.4 ML SQ SCH (09:43)
[2023-01-11] MEDS: ONDANSETRON 4 MG/2 ML VIAL IV PRN ×2 (10:25→22:47)
[2023-01-11] MEDS: MORPHINE 2 MG/ML SYR IV PRN ×4 (10:25→22:47)
[2023-01-11] MEDS ORDERED: HYDROCODONE/APAP 10/325 TAB PO PRN (11:54)
[2023-01-11] MEDS ORDERED: POTASSIUM 25 MEQ EFFERV TAB PO ONE ×2 (12:35→14:48)
[2023-01-11] MEDS ORDERED: METHYLPREDNISOLONE 125 MG INJ IV ONE (14:00)
[2023-01-11] MEDS: PARoxetine HCL 10 MG TAB PO SCH (20:32)
[2023-01-11] MEDS: ESZOPICLONE 1 MG TAB PO SCH (20:33)
[2023-01-12] MEDS: MORPHINE 2 MG/ML SYR IV PRN ×6 (02:35→23:33)
[2023-01-12] MEDS: ONDANSETRON 4 MG/2 ML VIAL IV PRN ×2 (06:47→19:18)
[2023-01-12] MEDS: FLUCONAZOLE 100 MG TAB PO SCH (08:15)
[2023-01-12] MEDS: predniSONE 20 MG TAB PO SCH ×2 (08:15→19:17)
[2023-01-12] MEDS: ALPRAZOLAM 0.5 MG TABLET PO SCH ×2 (08:15→19:17)
[2023-01-12] MEDS: CEFTRIAXONE 1,000 MG in NA CHLORIDE 0.9% 50 ML IVPB SCH (08:15)
[2023-01-12] MEDS: VALACYCLOVIR 500 MG TAB PO SCH ×3 (08:15→20:37)
[2023-01-12] MEDS: SUCRALFATE 1GM/10ML UCUP PO SCH ×4 (08:25→19:16)
[2023-01-12] MEDS: ENOXAPARIN 40 MG/0.4 ML SQ SCH (08:26)
[2023-01-12] MEDS: DIPHENHYDRAMINE 12.5MG/5ML LIQ PO SCH ×2 (08:26→19:16)
[2023-01-12] MEDS: PANTOPRAZOLE 40 MG INJ IVP SCH (08:26)
[2023-01-12] MEDS: POTASS/SODIUM PHOSPHATE 1 PKT POWD.PACK PO SCH ×4 (08:26→19:17)
[2023-01-12] MEDS: LIDOCAINE VISCOUS 2% 10ML ORAL SOLN PO SCH ×2 (08:27→19:18)
[2023-01-12] MEDS: ENSURE ENLIVE 237 ML CAN PO SCH ×3 (08:27→19:18)
--- NOTE | 2023-01-12 09:10 | P.PN ---
Date of Service: 01/12/23 Subjective Patient is doing well; still with joint pain. Denies any new c/o. Physical Examination - Vital Signs reviewed - Vital Signs General: Alert, Oriented x3. Generalized weakness. HEENT: NC/AT; small aphthous ulcers Respiratory: Clear to auscultation bilaterally, Normal air movement Cardiovascular: No edema, Regular rate/rhythm Gastrointestinal: Normal bowel sounds, Soft and benign Msk: generalized aching/stiffness, slightly improving Integumentary: Maculopapular rash bilateral upper and lower extremities improving Assessment And Plan - Assessment Assessment/Plan Stomatitis acute recently traveled to [facility] 1 month ago. Since her travel, she has been experiencing mouth ulcerations and throat pain. Patient states this has been ongoing for the past 1 month without improvement. seen by her PCP and was prescribed amoxicillin for presumed strep infection approximately 3 weeks ago; patient then developed adverse reaction of rash at the time and stopped taking the amoxicillin. - group A strep rapid screen negative - Monoscreen negative - throat culture: normal upper respiratory rodrigo - Blood cultures 12/31: no growth to date - HSV pending PO Benadryl solution, lidocaine viscous solution, Valtrex, Carafate and IV hydration Continue current treatment regimen. Continue supportive care. 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 Switch to PO as tolerated. elevated CRP trending down IV solumedrol changed to PO prednisone 178H, today 29.90 - Plan Concern for Meningitis ruled out CT head brain wo contrast 12/31: "1.4 centimeter low-density area near the junction of the right temporal and right occipital lobes. No enhancement. This appears benign. It may represent an unusual appearing arachnoid cyst." MRI of the brain MPRESSION: No acute intracranial process. No evidence of abnormal enhancement or mass effect.Lateral right temporal lobe focus of encephalomalacia posteriorly,, suggestive of sequelae of remote ischemia or hemorrhage. No corresponding abnormal enhancement or nodularity. s/p lumbar puncture 01/03. CSF glucose: 63 Protein: 52 WBC : pending RBC: pending color/appearance: pending VDRL: nonreactive Cultures/Serology - HSV pending - group A strep rapid screen negative - Monoscreen negative - throat culture: normal upper respiratory rodrigo - Blood cultures 12/31: no growth to date Concern for autoimmune process - WALTER, anti-proteinase 3, anti-myeloperoxidase, dsDNA 01/06: pending - Started on solumedrol IV 01/06 automimmune labs ordered, solumedrol added polyarthritis-improving signifcantly elevated CRP-improving elevated procalcitonin Leukocytosis improved completed Doxycyclin, currently on and Acyclovir IV, Rocephin IV, WBC trending down --Syncope. Improved Likely secondary to dehydration. Continue IV hydration. --Nausea and vomiting. Improved Antiemetics on board. Continue IV hydration. --Headache. Improved Tylenol as needed. --Hx of Gastroparesis. CT abdomen unremarkable for any acute intracranial abnormality. Continue home medication. Continue supportive care. --History of irritable bowel syndrome. Continue home medication. --Depression\\anxiety disorder\\PTSD. Continue home medications. --GERD. Continue Protonix. --Cannabis use disorder. Patient counseled on drug cessation. --UTI POA. Patient placed on antibiotics. Urine cultures pending. --Acute pain. We will manage pain with current pain medication regimen. --DVT prophylaxis with Lovenox subQ.
--- NOTE | 2023-01-12 09:31 | P.PN ---
Date of Service: 01/12/23 Chief Complaint: Syncope Subjective: Patient seen and examined at bedside. Improving. + joint pain / polyarthritis Appetite and sore throat improving. No acute events reported over the weekend. Remains afebrile. Physical Examination Temp Pulse Resp BP Pulse Ox 97.1 F 58 16 127/81 99 01/12/23 04:00 01/12/23 04:00 01/12/23 06:47 01/12/23 04:00 01/12/23 06:47 General: Alert, Oriented x3. Generalized weakness. HEENT: Atraumatic, normocephalic. Lips dry. Oral mucosa with ulcerations erythema of soft palate. Oral thrush. Respiratory: Clear to auscultation bilaterally, Normal air movement Cardiovascular: No edema, Regular rate/rhythm Gastrointestinal: Normal bowel sounds, Soft and benign Msk: generalized aching/stiffness, slightly improving Neurological: Normal speech, Normal tone Laboratory Data - Reviewed Microbiology Data - Reviewed Imagings Data: - CT abdomen pelvis w contrast 12/31: "No acute abnormality is displayed" - CT neck w contrast 12/31: "Unremarkable CT neck" - CT head wo contrast 12/31: "1.4 centimeter low-density area near the junction of the right temporal and right occipital lobes. No enhancement. This appears benign. It may represent an unusual appearing arachnoid cyst." - MRI brain 01/06: "No acute intracranial process. No evidence of abnormal enhancement or mass effect. Lateral right temporal lobe focus of encephalomalacia posteriorly, suggestive of sequelae of remote ischemia or hemorrhage. No corresponding abnormal enhancement or nodularity. Medications List: Reviewed Assessment and Plan Problem List Fever Maculopapular rash Oral Thrush Gastroparesis GERD Depression Anxiety Irritable bowel syndrome Hypoalbuminemia Moderate PCM Stomatitis / Oral ulcerations - group A strep rapid screen negative - Monoscreen negative - throat culture: normal upper respiratory rodrigo - Blood cultures 12/31: no growth to date - HSV pending Concern for Meningitis vs Autoimmune/Rheum - s/p lumbar puncture 01/03: CSF glucose 63 , Protein 52, WBC 3, RBC 0, color/appearance= colorless/clear, VDRL nonreactive - CSF culture: Pending -01/06: WALTER negative, anti-proteinase3 <1, anti-myeloperoxidase <1, dsDNA <1 - Started on solumedrol IV 01/06 -> switched to Prednisone PO 01/09 Previously on Rocephin (12/31-01/07) and Doxycycline PO (01/02-01/08) Acyclovir IV (01/04-01/10) switched to Valacyclovir PO on 01/10 CRP trending down (148 -> 29 -> 14) Procal trending down (2.93 -> 0.15) - Afebrile since 01/06 -Leukocytosis resolved. Recommendations - Continue Valacyclovir PO for now - Pending HSV results; follow up. - Improvement in symptoms on steroids, continue with prednisone. - Oral thrush: Continue Fluconazole x 7 days (01/08-01/14). - Autoimmune panel pending. Follow up with results. - Monitor WBC and fever trends. Case discussed with Toshia Sanchez
[2023-01-12 10:38] LABS: Rheumatoid Factor NEG (NEG)
[2023-01-12] MEDS ORDERED: POTASSIUM CL SA 10 MEQ TAB PO ONE (13:30)
[2023-01-12 14:16] LABS: Potassium 3.6 mEq/L (3.5-5.1)
--- NOTE | 2023-01-12 15:04 | P.PN ---
Subjective Date of Service: 01/12/23 Chief Complaint: Syncope Pt is resting comfortably in bed. She complains of difficulty swallowing due to lesions in her mouth. Pt also had pain in her knee and ankle joints. She will follow up with a General Duty Nurse on outpt. No other complaints. Review of Systems General: Unremarkable Eyes: Unremarkable ENT: Unremarkable Respiratory: Unremarkable Cardiovascular: Unremarkable Gastrointestinal: Unremarkable Genitourinary: Unremarkable Musculoskeletal: Back Pain, Leg Pain Integumentary: Unremarkable Neurological: Unremarkable Physical Examination - Vital Signs Temperature: 96.8 F Blood Pressure: 120/79 Pulse: 66 Respirations: 15 Pulse Ox (%): 97 - Physical Exam General: Alert, In no apparent distress, Oriented x3 HEENT: Atraumatic, Normocephalic, PERRLA Neck: Supple, 2+ carotid pulse no bruit Respiratory: Clear to auscultation bilaterally, Normal air movement Cardiovascular: No edema, Normal pulses, Normal S1 S2 Capillary refill: <2 Seconds Gastrointestinal: Normal bowel sounds, Soft and benign, Non-distended Musculoskeletal: No clubbing, No swelling, Tenderness Integumentary: No rashes, No breakdown, No erythema Neurological: Normal gait, Normal speech, Normal tone Assessment And Plan - Plan Acute Stomatitis: Pt reports that she went on a cruise to [facility] about 1 month ago. The symptoms after she got back. No other family member complained of similar symptoms. Her PCP gave Amoxicillin about 3 weeks ago and it caused adverse reaction of rash which made her to stop taking the medicine. The symptoms improved with Valcyclovir, prednisone, PO Benadryl solution, lidocaine viscous solution, carafate and IVF. ID is following. Continue Diflucan for thrush. Group A strep rapid screen negative, Monoscreen negative, Throat culture shows normal upper respiratory rodrigo. Blood cultures 12/31: no growth to date. HSV pending Elevated CRP: trending down with Steroid. IV solumedrol has been changed to PO prednisone. Concern for Meningitis ruled out CT head brain wo contrast 12/31: "1.4 centimeter low-density area near the junction of the right temporal and right occipital lobes. No enhancement. This appears benign. It may represent an unusual appearing arachnoid cyst." MRI of the brain MPRESSION: No acute intracranial process. No evidence of abnormal enhancement or mass effect.Lateral right temporal lobe focus of encephalomalacia posteriorly,, suggestive of sequelae of remote ischemia or hemorrhage. No corresponding abnormal enhancement or nodularity. s/p lumbar puncture 01/03. CSF glucose: 63 Protein: 52 WBC : pending RBC: pending color/appearance: pending VDRL: nonreactive Cultures/Serology - HSV pending - group A strep rapid screen negative - Monoscreen negative - throat culture: normal upper respiratory rodrigo - Blood cultures 12/31: no growth to date Concern for autoimmune process - WALTER, anti-proteinase 3, anti-myeloperoxidase, dsDNA 01/06: pending - Started on solumedrol IV 01/06 Will follow up automimmune labs. polyarthritis: improved with steroid. Continue prednisone. Pt had completed Doxycycline. Continue Acyclovir and rocephin and monitor WBC. Syncope: Improved. Likely secondary to dehydration. Will continue IV hydration. Nausea and vomiting: Improved with IVF. Will continue prn antiemetic. Hx of Gastroparesis: CT abdomen is unremarkable for any acute intracranial abnormality. Continue home medication. Continue supportive care. History of irritable bowel syndrome: Continue home medication. Depression\\anxiety disorder\\PTSD: Continue home medications. GERD: Continue Protonix. Cannabis use disorder: pt was advised to quit using drugs. UTI POA: Patient placed on antibiotics. Urine cultures pending. Acute pain: continue prn pain med. DVT prophylaxis: Lovenox subQ. Discharge Plan: Home Plan to discharge in: 24 Hours - Code Status/Comfort Care Code Status Assessed: Yes Code Status: Full Code Physician Review: Patient Assessed, Agree with Above Assessment and Plan
[2023-01-12] MEDS: ESZOPICLONE 1 MG TAB PO SCH (19:17)
[2023-01-12] MEDS: PARoxetine HCL 10 MG TAB PO SCH (19:17)
[2023-01-13] MEDS: MORPHINE 2 MG/ML SYR IV PRN ×3 (04:09→11:38)
[2023-01-13] MEDS: ONDANSETRON 4 MG/2 ML VIAL IV PRN ×2 (04:09→11:35)
[2023-01-13 07:10] LABS: Hematocrit 35.5 % (36.0-45.0); Lymphocytes % 9.3 % (15.3-44.8); MCV 84.3 fL (80-100); MPV 9.6 fL (7.6-11.3); Platelets 337 thou/uL (152-406); RBC Red Blood Cell Count 4.21 M/uL (3.86-4.86)
[2023-01-13] MEDS: SUCRALFATE 1GM/10ML UCUP PO SCH ×2 (07:36→11:10)
[2023-01-13] MEDS: PANTOPRAZOLE 40 MG INJ IVP SCH (07:36)
[2023-01-13] MEDS: predniSONE 20 MG TAB PO SCH (07:37)
[2023-01-13] MEDS: POTASS/SODIUM PHOSPHATE 1 PKT POWD.PACK PO SCH ×2 (07:37→13:03)
[2023-01-13] MEDS: ALPRAZOLAM 0.5 MG TABLET PO SCH (07:37)
[2023-01-13] MEDS: DIPHENHYDRAMINE 12.5MG/5ML LIQ PO SCH (07:37)
[2023-01-13] MEDS: FLUCONAZOLE 100 MG TAB PO SCH (07:38)
[2023-01-13] MEDS: ENSURE ENLIVE 237 ML CAN PO SCH ×2 (07:38→13:13)
[2023-01-13] MEDS: ENOXAPARIN 40 MG/0.4 ML SQ SCH (07:38)
[2023-01-13] MEDS: CEFTRIAXONE 1,000 MG in NA CHLORIDE 0.9% 50 ML IVPB SCH (07:38)
[2023-01-13] MEDS: LIDOCAINE VISCOUS 2% 10ML ORAL SOLN PO SCH (07:39)
--- NOTE | 2023-01-13 08:46 | P.PN ---
Date of Service: 01/13/23 Chief Complaint: Syncope Subjective: No new changes. No acute events overnight. + oral ulcers + joint pain bilateral legs/hips Physical Examination Temp Pulse Resp BP Pulse Ox 97.8 F 56 18 126/76 97 01/13/23 04:00 01/13/23 04:00 01/13/23 07:39 01/13/23 04:00 01/13/23 07:39 General: Alert, Oriented x3. Generalized weakness. HEENT: Atraumatic, normocephalic. Lips dry. Oral mucosa with ulcerations. Lips dry. Respiratory: Clear to auscultation bilaterally, Normal air movement Cardiovascular: No edema, Regular rate/rhythm Gastrointestinal: Normal bowel sounds, Soft and benign Msk: generalized aching/stiffness, slightly improving Neurological: Normal speech, Normal tone Laboratory Data - Reviewed Microbiology Data - Reviewed Imagings Data: - CT abdomen pelvis w contrast 12/31: "No acute abnormality is displayed" - CT neck w contrast 12/31: "Unremarkable CT neck" - CT head wo contrast 12/31: "1.4 centimeter low-density area near the junction of the right temporal and right occipital lobes. No enhancement. This appears benign. It may represent an unusual appearing arachnoid cyst." - MRI brain 01/06: "No acute intracranial process. No evidence of abnormal enhancement or mass effect. Lateral right temporal lobe focus of encephalomalacia posteriorly, suggestive of sequelae of remote ischemia or hemorrhage. No corresponding abnormal enhancement or nodularity. Medications List: Reviewed Assessment and Plan Problem List Fever Maculopapular rash Oral Thrush Gastroparesis GERD Depression Anxiety Irritable bowel syndrome Hypoalbuminemia Moderate PCM Stomatitis / Oral ulcerations - group A strep rapid screen negative - Monoscreen negative - throat culture: normal upper respiratory rodrigo - Blood cultures 12/31: no growth to date - HSV pending Concern for Meningitis vs Autoimmune/Rheum - s/p lumbar puncture 01/03: CSF glucose 63 , Protein 52, WBC 3, RBC 0, color/appearance= colorless/clear, VDRL nonreactive - CSF culture: Pending -01/06: WALTER negative, anti-proteinase3 <1, anti-myeloperoxidase <1, dsDNA <1 - Started on solumedrol IV 01/06 -> switched to Prednisone PO 01/09 Previously on Doxycycline PO (01/02-01/08) on Rocephin (12/31-01/07) Acyclovir IV (01/04-01/10) switched to Valacyclovir PO on 01/10 CRP trending down (148 -> 29 -> 14) Procal trending down (2.93 -> 0.15) - Afebrile since 01/06 -Leukocytosis resolved. Recommendations - Continue Valacyclovir PO for now - Pending HSV results; follow up. - Improvement in symptoms on steroids, continue with prednisone. - On Rocephin day 13 of 14 - Oral thrush: Continue Fluconazole x 7 days (01/08-01/14). - Autoimmune panel pending. Follow up with results. - Monitor WBC and fever trends. Case discussed with Toshia Sanchez
[2023-01-13 09:45] VITALS: O2SAT 97
[2023-01-13] MEDS: VALACYCLOVIR 500 MG TAB PO SCH ×2 (10:13→14:24)
[2023-01-13 11:39] VITALS: BP 128/82; TEMP 97
--- NOTE | 2023-01-13 14:32 | P.DS ---
Admission Date: 12/31/22 Discharge Date: 01/13/23 Disposition: ROUTINE DISCHARGE Discharge Condition: GOOD Reason for Admission: Syncope Brief History of Present Illness: Patient is a 32-year-old female with a past medical history significant for gastroparesis, PTSD, irritable bowel syndrome, GERD, depression, anxiety disorder who presents with complaint of syncope which occurred today. Patient reported that she has been in the hospital multiple times for ulcers in her mouth and throat that has been going for the past 1 month. Patient reported that she developed ulcers in her mouth after returning from [place] a month ago. Patient reported that she has not been able to eat in the last 1 week due to throat pain and pain with swallowing. Patient reported that she felt dizzy today before passing out. Patient denies hitting her head and cannot remember how long she passed out. Patient reports associated signs and symptoms of nausea, vomiting, headache, chills, fever, generalized abdominal pain, rash in upper extremities and lower extremities. Patient denies any other signs and symptoms. Symptoms are aggravated or relieved by nothing. Patient decided to present to the hospital due to worsening symptoms. Hospital Course: Patient is a 32-year-old female who was admitted to the hospital with fever, skin rash, joint pain, and generalized weakness. Patient had multiple aphthous ulcers. Patient also was noted to have oral thrush. Patient was evaluated for multiple infectious etiologies but these came back negative. We did multiple viral testing and patient had a lumbar puncture. There was no evidence of meningitis. No evidence of any viral infections that we were able to test for. We did check for different exquisite viral infections as well. The results are still pending while she took empiric valcyclovir. The CRP value was elevated and we started steroid which made her to be afebrile and improved the CRP level. Concern for autoimmune pathology such as vasculitis was considered. The WALTER was negative. Patient's double-stranded DNA was negative. Patient's P ANCA and C ANCA were negative as well. Patient C-reactive protein was 119 on arrival and kept increasing to 150. Meanwhile, we continued antiviral therapy, antifungal therapy, and antibiotics. Patient was advised to follow up with rheumatology on outpatient. Patient will need to continue following up with the PCP as an outpatient. We discontinued the rocephin upon discharge after we ruled out meningitis. Pt was advised to take prednisone taper and valcyclovir at home. She ambulated well with PT and She was in NAD prior to discharge. Vital Signs/Physical Exam: Temp Pulse Resp BP Pulse Ox 97 F 95 H 18 128/82 98 01/13/23 11:38 01/13/23 11:38 01/13/23 11:38 01/13/23 11:38 01/13/23 11:38 Laboratory Data at Discharge: WBC 11.20 thou/uL (4.3-10.9) H 01/13/23 06:33 Hgb 11.9 g/dL (12.0-15.0) L 01/13/23 06:33 Hct 35.5 % (36.0-45.0) L 01/13/23 06:33 Plt Count 337 thou/uL (152-406) 01/13/23 06:33 PT 12.2 SECONDS (9.5-12.5) 01/06/23 09:32 INR 1.11 01/06/23 09:32 APTT 29.9 SECONDS (24.3-36.9) 01/06/23 09:32 Sodium 134 mEq/L (136-145) L 01/13/23 06:33 Potassium 4.0 mEq/L (3.5-5.1) 01/13/23 06:33 BUN 12 mg/dL (7-18) 01/13/23 06:33 Creatinine 0.66 mg/dL (0.55-1.02) 01/13/23 06:33 Glucose 106 mg/dL (74-106) 01/13/23 06:33 Phosphorus 3.0 mg/dL (2.5-4.9) 01/04/23 07:24 Magnesium 1.8 mg/dL (1.6-2.4) 01/11/23 07:56 Total Bilirubin 0.3 mg/dL (0.2-1.0) 01/09/23 07:23 AST 19 U/L (15-37) 01/09/23 07:23 ALT 43 U/L (13-56) 01/09/23 07:23 Alkaline Phosphatase 100 U/L (45-117) 01/09/23 07:23 Triglycerides 107 mg/dL (<150) 01/06/23 09:32 Cholesterol 125 mg/dL (<200) 01/06/23 09:32 HDL Cholesterol 38 mg/dL (40-60) L 01/06/23 09:32 Cholesterol/HDL Ratio 3.29 01/06/23 09:32 Lipase 12 U/L (13-75) L 12/31/22 11:41 Home Medications: Eszopiclone [Lunesta*] 3 mg PO BEDTIME 05/31/22 Alprazolam [Xanax] 0.5 mg PO BID 08/12/22 PARoxetine HCL [Paxil] 40 mg PO BEDTIME 09/12/22 Ensure Enlive 237 ml PO TID #90 can 01/11/23 Fluconazole [Diflucan] 200 mg PO DAILY #7 tab 01/11/23 Hydrocodone 10/APAP 325 [[place] 10/325*] 1 tab PO Q6H PRN #30 tab 01/11/23 Lidocaine 2% Viscous Oral [Xylocaine Viscous Oral 2%] 15 ml PO Q8H #1000 ml 01/11/23 Pantoprazole [Protonix Tab] 40 mg PO BID #60 tab 01/11/23 Sucralfate [Carafate*] 10 ml PO ACHS #1000 ml 01/11/23 Valacyclovir HCl [Valtrex] 1,000 mg PO TID #21 tab 01/11/23 predniSONE [Prednisone*] 20 mg PO BID #30 tab 01/11/23 New Medications: Sucralfate [Carafate*] 10 ml PO ACHS #1000 ml Fluconazole [Diflucan] 200 mg PO DAILY #7 tab Ensure Enlive 237 ml PO TID #90 can Hydrocodone 10/APAP 325 [[place] 10/325*] 1 tab PO Q6H PRN #30 tab PRN Reason: Pain Scale 5-7 (Moderate) predniSONE [Prednisone*] 20 mg PO BID #30 tab Pantoprazole [Protonix Tab] 40 mg PO BID #60 tab Valacyclovir HCl [Valtrex] 1,000 mg PO TID #21 tab Lidocaine 2% Viscous Oral [Xylocaine Viscous Oral 2%] 15 ml PO Q8H #1000 ml Physician Discharge Instructions: -DC IV and DC home -Follow-up with PCP in 1 to 2 weeks -Follow-up with Rheumatology in 1 to 2 weeks -Please call Dr. Mooney at [phone] if any questions regarding hospital stay -Please call nursing station at [phone] if any nursing or medication questions -Return to the emergency room if symptoms worsen Diet: AHA Activity: Fall precautions Followup: NONE,NONE [Primary Care Provider] -
[2023-01-15 17:26] LABS: Scleroderma Antibody (Scl-70) <1.0
[2023-01-15 20:47] LABS: Anti-Cardiolipin IgA Antibody <2.0 APL-U/mL (<20.0)
== END 2023-01-13 16:00 | disposition home or self-care (01) | DRG 158 ==
LOC: ER 11:20 → ERHOLD 15:44 → 4TH 20:17
PROVIDERS: ADMIT Internal Medicine Nephrology; ATTEND Hospitalist
PROC: 009U3ZX Drainage of Spinal Canal, Percutaneous Approach, Diagnostic (ICD-10-PCS; principal; 2023-01-03)
DX: B37.0 Candidal stomatitis (principal); E44.0 Moderate protein-calorie malnutrition; N39.0 Urinary tract infection, site not specified; E86.0 Dehydration; F43.10 Post-traumatic stress disorder, unspecified; F41.9 Anxiety disorder, unspecified; F32.A Depression, unspecified; K58.9 Irritable bowel syndrome, unspecified; J02.9 Acute pharyngitis, unspecified; K21.9 Gastro-esophageal reflux disease without esophagitis; F12.229 Cannabis dependence with intoxication, unspecified; E88.09 Other disorders of plasma-protein metabolism, not elsewhere classified; M13.0 Polyarthritis, unspecified; D72.829 Elevated white blood cell count, unspecified; K31.84 Gastroparesis; L27.0 Generalized skin eruption due to drugs and medicaments taken internally; T36.0X5A Adverse effect of penicillins, initial encounter; R21 Rash and other nonspecific skin eruption; Z88.8 Allergy status to other drugs, medicaments and biological substances; Z79.01 Long term (current) use of anticoagulants; Z71.51 Drug abuse counseling and surveillance of drug abuser; Z79.52 Long term (current) use of systemic steroids; Z90.49 Acquired absence of other specified parts of digestive tract; Z68.24 Body mass index [BMI] 24.0-24.9, adult; Z79.899 Other long term (current) drug therapy; Z87.891 Personal history of nicotine dependence
CPT/HCPCS: 36415; 70450; 70491; 70553; 74177; 80048; 80053; 80061; 80074; 81001; 81025; 82306; 82533; 82550; 82607; 82728; 82945; 82947; 83540; 83605; 83615; 83690; 83735; 84100; 84132; 84145; 84157; 84439; 84443; 85025; 85027; 85044; 85610; 85730; 86021; 86038; 86060; 86140; 86147; 86200; 86225; 86235; 86256; 86308; 86430; 86592; 87040; 87070; 87081; 87255; 87389; 87538; 87635; 87804; 89050; 96361; 96365; 96375; 97161; 99285; A4216; A9577; C9113; J0133; J0696; J1450; J1650; J2270; J2405; J2930; J3475; J7030; J7512; Q0163; Q9967

== ENCOUNTER → 2023-03-02 | Emergency (ER) | payer BC ==
[~2023-03-02] MED LIST: KETOROLAC 30 MG/ML INJ ONE; LORazepam 2 MG/ML VIAL ONE; METOCLOPRAMIDE 10 MG/2mL INJ ONE; MORPHINE 4 MG/ML SYR ONE; NA CHLORIDE 0.9% 1,000 ML ONE; ONDANSETRON 4 MG/2 ML VIAL ONE
--- OUTSIDE RECORDS SUMMARY | 2023-03-02 14:24 | XMS REPORT | Continuity of Care Document ---
Author Name Unknown Address [address] [facility] [address] [place] [address] [facility] Address [address] [facility] 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 Primary Care Physician [phone] CAIT BRAGG Attending Clinician Unavailable GIOVANY HAGER Attending Clinician Unavailable [facility]90 Attending Clinician Unavailable Marylou Johnson NP Attending Clinician Ted Schultz Attending Clinician Unavailable Kaelyn Peguero Attending Clinician Unavailable Physician, No Primary or Family Admitting Clinic monse Unavailable Payers Payer Name Policy Type Policy Number Effective Date Expirati on Date Source [place]/PLUS [id number] 2022 00:00:00 BCBS 2 [id number] 2023 00:00:00 Problems Condition Name Condition Details Condition Category Status Onset Date Resolution Date Last Treatment Date Treating Clinician Comments Source Gastropare sis Gastropare sis Disease Active 02-24 00:00: 00 Laura Seybold - Externa l Chronic nausea Chronic nausea Disease Active 02-24 00:00: 00 Laura Seybold - Externa l History of ITP History of ITP Disease Active 2022-02 00:00: 00 Laura Seybold - Externa l Pain of both wrist joints Pain of both wrist joints Disease Active 2022-02 00:00: 00 Laura Seybold - Externa l Other fatigue Other fatigue Disease Active 2022-02 00:00: 00 Laura Seybold - Externa l Depression Depression Disease Active 2022-02 00:00: 00 Laura Seybold - Externa l Insomnia Insomnia Disease Active 2022-02 00:00: 00 Laura Seybold - Externa l Chronic pain Chronic pain Disease Active 2022-02 00:00: 00 Laura Seybold - Externa l Stomatitis Stomatitis Disease Active 2022-02 00:00: 00 Laura Seybold - Externa l Allergies, Adverse Reactions, Alerts Allergy Name Allergy Type Status Severity Reaction(s) Onset Date Inactive Date Treating Clinician Comments Source Haloperi dol Lactate Propensi ty to adverse reaction s Active Other 2022-02 00:00: 00 Laura Seybold - Externa l Scopolam ine Hbr Propensi ty to adverse reaction s Active Other 2022-02 00:00: 00 Vision loss Laura Seybold - Externa l Haloperi dol Propensi ty to adverse reaction s Active Other - See comments 2022-02 00:00: 00 Dystonic reactions [facility] Scopolam ine Propensi ty to adverse reaction s Active Other - See comments 2022-02 00:00: 00 Visual changes [facility] HALOPERI DOL DRUG INGREDI Active Med Other-Cmnt 2022-02 00:00: 00 [facility] SCOPOLAM INE DRUG INGREDI Active Other-Cmnt 2022-02 00:00: 00 [facility] haloperi dol DA Active SV HIVES 0 5- 00:00: 00 [facility] scopolam ine DA Active SV HIVES 0 5- 00:00: 00 [facility] No Known Allergie s DA Active U 0 1- 00:00: 00 [facility] No Known Allergie s DA Active U 0 06-24 00:00: 00 [facility] No Known Allergie s DA Active U 0 16 00:00: 00 [facility] scopolam ine DA Active [place] 2020-0 4-10 00:00: 00 [facility] scopolam ine DA Active [place] RASH-HIVES 0 4-10 00:00: 00 [facility] No Known Allergie s DA Active U 0 20 00:00: 00 [facility] No Known Allergie s DA Active U 0 620 00:00: 00 [facility] No Known Drug Intolera nces DA Active U 0 15 00:00: 00 [facility] No Known Drug Intolera nces DA Active U NONE 0 -15 00:00: 00 [facility] NO KNOWN ALLERGIE S Drug Class Active [facility] Social History Social Habit Start Date Stop Date Quantity Comments Source Sexual orientation Opal Enrique - External History of tobacco use Cigarette Smoker Laura shi - External Alcohol intake 2023-02-24 00:00:00 2023-02-24 00:00:00 Ex-drinker (finding) Laura Enrique - External Tobacco use and exposure 2023-01-27 00:00:00 2023-01-27 00:00:00 Smokeless tobacco non-user Laura Ogden Education - What is the highest level of school you have completed or the highest degree you have received? 2023-01-27 00:00:00 2023-01-27 00:00:00 Associate degree: academic program Laura Ogden Cigarettes smoked current (pack per day) - Reported 2023-01-27 00:00:00 2023-01-27 00:00:00 Laura Enrique - Alin Cigarette pack-years 2023-01-27 00:00:00 2023-01-27 00:00:00 Laura Enrique - Alin History of Social function 2023-01-26 00:00:00 2023-01-26 00:00:00 Laura Enrique - Alin Sex Assigned At 1990 00:00:00 1990 00[birth year]00:00 Laura Perdomo External Smoking Status Start Date Stop Date Source Tobacco smoking consumption unknown [facility] Ex-smoker 2023-01-27 00:00:00 2023-01-27 00:00:00 Laura Perdomo External Medications Ordered Medication Name Filled Medication Name Start Date Stop Date Current Medication? Ordering Clinician Indication Dosage Frequency Signature (SIG) Comments Components Source Brexpiprazo le (Rexulti) 2 MG oral Tablet 02-24 11:47: 34 Yes 2mg Take 2 mg by mouth daily. Laura hall HYDROcodone -Acetaminop hen 10-325 MG oral Tablet 02-24 00:00: 00 Yes [id number] 1{tbl} Q.5D Take 1 tablet by mouth 2 times daily as needed for pain. Laura hall Methocarbam ol 500 MG oral Tablet 02-24 00:00: 00 Yes [id number] 500mg QD Take 1 tablet (500 mg total) by mouth nightly as needed (muscle spasm). Laura hall Methocarbam ol 500 MG oral Tablet 1-09 00:00: 00 02-24 00:00 :00 No Laura hall Celecoxib 200 MG oral Capsule 1-09 00:00: 00 02-24 00:00 :00 No TAKE ONE (1) CAPSULE(S) BY MOUTH ONCE A DAY WITH FOOD. Laura hall Promethazin e HCl (PHENERGAN) 25 MG oral Tablet 1-04 00:00: 00 Yes [id number] 25mg QD Take 1 tablet (25 mg total) by mouth daily as needed for nausea. Laura hall Valacyclovi r HCl (Valtrex) 500 MG oral Tablet 2022-02 00:00: 00 Yes [id number] 500mg Take 1 tablet (500 mg total) by mouth daily. Laura hall Brexpiprazo le (Rexulti) 2 MG oral Tablet 2022-02 14:15: 48 Yes 2mg Take 2 mg by mouth daily. Laura hall HYDROcodone -Acetaminop hen 10-325 MG oral Tablet 2022-02 00:00: 00 Yes 1{tbl} Q.25D Take 1 tablet by mouth every 6 hours as needed for pain (joint murray and post LP). Laura hall predniSONE (DELTASONE) 20 MG oral tablet 2022-02 00:00: 00 Yes 20mg Take 1 tablet (20 mg total) by mouth 2 times daily. Laura hall predniSONE (DELTASONE) 20 MG oral tablet 2022-02 00:00: 00 02-24 00:00 :00 No 20mg Take 1 tablet (20 mg total) by mouth 2 times daily. Laura hall HYDROcodone -Acetaminop hen 10-325 MG oral Tablet 2022-02- 00:00: 00 02-24 00:00 :00 No 1{tbl} Q.25D Take 1 tablet by mouth every 6 hours as needed for pain (joint murray and post LP). Laura hall dexamethaso ne sod phos PF injection 6 mg 2022-02 02:30: 00 12-27 01:51 :00 No 6mg 6 mg, Intravenou s, ONCE, 1 dose, On Thu12/26/22 at 2030, 1 mL [facility] penicillin g benzathine (BICILLIN L-A) injection 1.2 Million Units 2022-02 01:45: 00 12-27 01:53 :00 No 1.210 1.2 Million Units, Intramuscu lar, ONCE, 1 dose, On Thu12/26/22 at 1945, RONNIE
Re ason for Anti-Infec tive: Empiric Therapy for Suspected Infection< br>Empiric Therapy Site: HEENT
D uration of therapy: Once (ED) [facility] acetaminoph en (TYLENOL) tablet 650 mg 2022-02 01:45: 00 12-27 01:50 :00 No 650mg 650 mg, Oral, ONCE, 1 dose, On Thu12/26/22 at 1945, RONNIE [facility] ketorolac (TORADOL) injection 30 mg 2022-02 00:45: 00 12-27 00:59 :00 No 30mg 30 mg, Intramuscu lar, ONCE, 1 dose, On Thu12/26/22 at 1845, RONNIE [facility] hydrocortis one 1 mg/4 mL in nystatin suspension- diphenhydrA MINE solution suspension 2022-02 00:00: 00 12-30 05:59 :00 Yes [id number] 15mL Take 15 mL by mouth every 6 (six) hours as needed for Pain (scale 4-6) for up to 3 days. [facility] Famotidine (PEPCID) 20 MG oral tablet 2022-02 00:00: 00 02-24 00:00 :00 No 20mg Take 1 tablet (20 mg total) by mouth daily. Laura hall Paroxetine HCl 40 MG oral Tablet 09-11 00:00: 00 Yes 40mg Take 1 tablet (40 mg total) by mouth every morning. Laura hall Paroxetine HCl 40 MG oral Tablet 09-11 00:00: 00 Yes 40mg Take 1 tablet (40 mg total) by mouth every morning. Laura hall Alprazolam (Xanax) 0.5 MG oral Tablet 08-11 00:00: 00 Yes .5mg Q.5D Take 1 tablet (0.5 mg total) by mouth 2 times daily as needed for anxiety (PTSD, [address]). aLura Remya rafael Alprazolam (Xanax) 0.5 MG oral Tablet 08-11 00:00: 00 02-24 00:00 :00 No .5mg Q.5D Take 1 tablet (0.5 mg total) by mouth 2 times daily as needed for anxiety (PTSD, [address]). Laura hall Pantoprazol e Sodium (Protonix) 40 MG oral Tablet Delayed Response 05-31 00:00: 00 Yes 40mg Take 1 tablet (40 mg total) by mouth daily. Laura hall Pantoprazol e Sodium (Protonix) 40 MG oral Tablet Delayed Response 05-31 00:00: 00 Yes 40mg Take 1 tablet (40 mg total) by mouth daily. Laura hall Eszopiclone 1 MG oral Tablet 05-30 00:00: 00 Yes 3mg Take 3 tablets (3 mg total) by mouth at bedtime. Laura Remya l Eszopiclone 1 MG oral Tablet 05-30 00:00: 00 Yes 3mg Take 3 tablets (3 mg total) by mouth at bedtime. Laura hall Immunizations Ordered Immunization Name Filled Immunization Name Date Status Comments Source Influenza Virus Vaccine, Split, up to age 3 Unknown Completed Laura Perdomo External HPV 4 (Human Papillomavirus) Unknown Completed Laura jacome - External HPV 9 (Human Papillomavirus) Unknown Completed Laura jacome - External Influenza Virus Vaccine, Split, up to age 3 Unknown Completed Laura Perdomo External HPV 4 (Human Papillomavirus) Unknown Completed Laura jacome - External HPV 9 (Human Papillomavirus) Unknown Completed Laura jacome - External Vital Signs Vital Name Observation Time Observation Value Comments S ource Systolic blood pressure 2023-02-24 17:40:00 110 mm[Hg] Laura Brantleyybo ld - External Diastolic blood pressure 2023-02-24 17:40:00 62 mm[Hg] Laura Brantleyybo ld - External Heart rate 2023-02-24 17:40:00 106 /min Kelse y Seybold - External Body temperature 2023-02-24 17:40:00 36.61 Caitlyn Laura Seybold - External Respiratory rate 2023-02-24 17:40:00 16 /min Laura Seybold - External Body height 2023-02-24 17:40:00 157.5 cm Beatris ey Seybold - External Body weight 2023-02-24 17:40:00 70.818 kg Beatris ey Seybold - External BMI 2023-02-24 17:40:00 28.56 kg/m2 Beatris ey Seybold - External Systolic blood pressure 2023-01-27 16:54:00 115 mm[Hg] Laura ybo ld - External Diastolic blood pressure 2023-01-27 16:54:00 73 mm[Hg] Laura Seybo ld - External Heart rate 2023-01-27 16:54:00 116 /min Nickse y Seybold - External Body temperature 2023-01-27 16:54:00 37.78 Caitlyn Laura Brantleyybold - External Body height 2023-01-27 16:54:00 157.5 cm Beatris ey Seybold - External Body weight 2023-01-27 16:54:00 65.227 kg Beatris ey Seybold - External BMI 2023-01-27 16:54:00 26.30 kg/m2 Beatris ey Seybold - External Systolic blood pressure 2022-12-27 02:16:00 111 mm[Hg] [facility] Diastolic blood pressure 2022-12-27 02:16:00 82 mm[Hg] [facility] Heart rate 2022-12-27 02:16:00 93 /min [facility] Body temperature 2022-12-27 02:16:00 37.56 Caitlyn [facility] Respiratory rate 2022-12-27 02:16:00 20 /min [facility] Oxygen saturation in Arterial blood by Pulse oximetry 2022-12-27 02:16:00 96 /min [place] [facility] Body height 2022-12-26 23:57:00 157.5 cm [facility] Body weight 2022-12-26 23:57:00 58.968 kg [facility] BMI 2022-12-26 23:57:00 23.78 kg/m2 [facility] Procedures Procedure Date / Time Performed Performing Clinicia n Source CBC WITH DIFF 2022-12-27 01:49:00 Marylou Johnson [facility] RAPID STREP SCREEN FOR GROUP A 2022-12-27 00:59:00 Marylou Johnson [facility] NOTICE OF PRIVACY PRACTICES 2022-12-26 23:28:27 Doctor Unassigned, [place] [facility] CONSENT/REFUSAL FOR DIAGNOSIS AND TREATMENT 2022-12-26 23:27:35 Doctor Unassigned, [place] [facility] Encounters Start Date/Time End Date/Time Encounter Type Admission Type Attending [facility] Care Facility Care Department Encounter ID Source 2020-06-24 15:53:22 Inpatient [facility] [id number] 64 [facility] 2020-05-19 11:42:02 Inpatient [facility] [id number] 19 [facility] 2019-07-30 21:08:00 Inpatient [facility] ER [id number] 63 [facility] 2023-05-04 11:00:00 2023-05-04 11:00:00 Outpatient CAIT BRAGG [facility] [id number] [facility] 2023-03-25 14:00:00 2023-03-25 14:00:00 Outpatient GIOVANY HAGER [id number] [facility] 2023-03-02 00:00:00 2023-03-02 00:00:00 Outpatient GIOVANY HAGER [id number] [facility] 2023-03-02 00:00:00 2023-03-02 00:00:00 Outpatient GIOVANY HAGER [id number] [facility] 2023-03-02 00:00:00 2023-03-02 00:00:00 Outpatient PREZAS, GIOVANY PIZANO [id number] [facility] 2023-03-02 00:00:00 2023-03-02 00:00:00 Outpatient PREZAS, [facility] PIZANO [id number] [facility]23-[facility]:00 2023-02-27 00:00:00 Outpatient PREZAS, [facility]ANY PIZANO [id number] [facility] 2023-02-25 00:00:00 2023-02-25 00:00:00 Outpatient PREZAS, GIOVANY PIZANO LA[facility] [id number] [facility] 2023-02-24 11:30:00 2023-02-24 11:30:00 Outpatient PREZAS, GIOV[facility] PIZANO [facility] [id number] [facility]:00 2023-02-18 00:00:00 Outpatient PREZAS, GIOVANY PIZANO LAURA [id number] [facility] 2023-02-12 00:00:00 2023-02-12 00:00:00 Outpatient PREZAS, GIOVANY PIZANO LAURA [id number] [facility] 2023-02-12 00:00:00 2023-02-12 00:00:00 Outpatient PREZAS, GIOVANY PIZANO LAURA [id number] [facility] 2023-02-11 00:00:00 2023-02-11 00:00:00 Outpatient PREZAS, GIOVANY PIZANO LAURA [id number] [facility] 2023-01-28 00:00:00 2023-01-28 00:00:00 Outpatient PREZAS, GIOVANY PIZANO LAURA [id number] [facility] 2023-01-28 00:00:00 2023-01-28 00:00:00 Outpatient PREZAS, GIOVANY PIZANO LAURA [id number] Laura Seybold 2023-01-27 13:00:00 2023-01-27 13:00:00 Outpatient LAB90 LAURA PIZANO [id number] Laura Seybold 2023-01-27 10:45:00 2023-01-27 10:45:00 Outpatient GIOVANY HAGER [id number] Laura Enrique 2023-01-27 00:00:00 2023-01-27 00:00:00 Outpatient GIOVANY HAGER [id number] Laura Enrique 2022-12-26 17:57:00 2022-12-26 20:20:00 Emergency Marylou Johnson [facility] [id number] [facility] 2022-12-26 17:57:00 2022-12-26 20:20:00 Emergency X MARYLOU JOHNSON [facility] ERT [id number] [facility] 2022-06-11 11:10:00 2022-06-11 12:41:00 Emergency EM Ted Schultz [facility] [id number] 63 [facility] 2021-02-09 23:10:00 2021-02-10 00:19:00 Emergency EM Kaelyn Peguero [facility] ER [id number] 49 [facility] Results Test Description Test Time Test Comments Results Result Co mments Source Indication for culture: Suprapubic PainURINE SOURCE: CLEAN CATCH URINEUR HCG [id number] 11:54:00* Test Item Value Reference Range Interpretation Comme nts UR HCG QUAL (test code = HCGQLU) NEGATIVE NEGATIVE Indication for culture: Suprapubic PainURINE SOURCE: CLEAN CATCH URINE COMPREHENSIVE METABOLIC [id number] 11:49:00* Test Item Value Reference Range Interpretation Comme nts SODIUM (test code = NA) 139 mmol/L 136-145 N POTASSIUM (test code = K) 3.6 mmol/L 3.5-5.1 N CHLORIDE (test code = CL) 101 mmol/L 98-107 N CARBON DIOXIDE (test code = CO2) 24 mmol/L 21-32 N GLUCOSE (test code = GLU) 113 mg/dL 70-100 H BLOOD UREA NITROGEN (test code = BUN) 5 mg/dL 7-18 L GLOMERULAR FILTRATION RATE (test code = GFR) > 60.00 See_Comment The Glomerular Filtration Rate is a calculated parameterbased on serum Creatinine, patient age and sex. GFR valuesless than 60 mL/min/1.73 square meters are indicative ofChronic Kidney Disease. Values less than 15 mL/min/1.73square meters indicate Kidney failure. The calculation forGFR is based on the CKD-EPI (202) calculation. This formulais race indifferent and is the recommended formula for GFRby the National Kidney Foundation for Adults.The GFR will not calculate if the sex is unknown or if thepatient's age is <18 years. [Automated message] The system which generated this result transmitted reference range: >=60. The reference range was not used to interpret this result as normal/abnormal. CREATININE (test code = CREAT) 0.76 mg/dl 0.55-1.02 N TOTAL PROTEIN (test code = PROT) 7.7 g/dl 6.4-8.2 N ALBUMIN (test code = ALB) 4.1 g/dl 3.4-5.0 N CALCIUM (test code = CA) 9.0 mg/dL 8.5-10.1 N BILIRUBIN TOTAL (test code = BILT) 1.2 mg/dL 0.2-1.0 H SGOT/AST (test code = AST) 49 U/L 15-37 H SGPT/ALT (test code = ALT) 78 U/L 12-78 N ALKALINE PHOSPHATASE TOTAL (test code = ALKP) 105 U/L 45-117 N [id number] 11:49:00* Test Item Value Reference Range Interpretation Comme nts AMYLASE (test code = PARAM) 73 IU/L 25-115 N [id number] 11:49:00* Test Item Value Reference Range Interpretation Comme nts LIPASE (test code = LIP) 134 U/L 73-393 N CBC W/AUTO [id number] 11:33:00* Test Item Value Reference Range Interpretation Comme nts WHITE BLOOD CELL (test code = WBC) 4.8 X10(3) 4.5-11.0 N RED BLOOD CELL (test code = RBC) 4.59 X10(6) 4.2-5.4 N HEMOGLOBIN (test code = HGB) 13.1 g/dL 12.5-16.0 N HEMATOCRIT (test code = HCT) 39.9 % 37.0-47.0 N MEAN CELL VOLUME (test code = MCV) 86.9 fL 78-100 N MEAN CELL HGB (test code = MCH) 28.5 pg 26.0-34.0 N MEAN CELL HGB CONCETRATION (test code = MCHC) 32.8 g/dl 30.0-37.0 N RED CELL DISTRIBUTION WIDTH (test code = RDW) 14.2 % 11.5-14.5 N PLATELET COUNT (test code = PLT) 225 X10(3) 150-400 N MEAN PLATELET VOLUME (test c ode = MPV) 12.3 fl 8.7-11.4 H NEUTROPHIL % (test code = NT%) 66.3 % 36.0-66.0 H IMMATURE GRANULOCYTE % (test code = IG%) 0.2 % 0.0-2.0 N LYMPHOCYTE % (test code = LY%) 22.9 % 16-50 N MONOCYTE % (test code = MO%) 9.8 % 0.0-13.0 N EOSINOPHIL % (test code = EO%) 0.2 % 0.0-4.5 N BASOPHIL % (test code = BA%) 0.6 % 0.0-1.5 N NEUTROPHIL # (test code = NT#) 3.2 X10(3) 1.7-7.7 N IMMATURE GRANULOCYTE # (test code = IG#) 0.01 X10(3)uL 0.00-0.03 N LYMPHOCYTE # (test code = LY#) 1.1 X10(3) 1.0-4.8 N MONOCYTE # (test code = MO#) 0.5 X10(3) 0.0-0.89 N EOSINOPHIL # (test code = EO#) 0.0 X10(3) 0.0-0.6 N BASOPHIL # (test code = BA#) 0.0 X10(3) 0.0-0.2 N RBC MORPHOLOGY REQUIRED (andrew t code = RBCM) NO NORMAL COMPREHENSIVE METABOLIC [id number] 16:11:00* Test Item Value Reference Range Interpretation Comme nts SODIUM (test code = NA) 138 mmol/L 136-145 N POTASSIUM (test code = K) 3.7 mmol/L 3.5-5.1 N CHLORIDE (test code = CL) 100 mmol/L 98-107 N CARBON DIOXIDE (test code = CO2) 27 mmol/L 21-32 N GLUCOSE (test code = GLU) 69 mg/dL 70-100 L BLOOD UREA NITROGEN (test code = BUN) 9 mg/dL 7-18 N GLOMERULAR FILTRATION RATE (test code = GFR) > 60.00 See_Comment Reporting units: mL/min/1.73m\\S\\2 (Modified MDRD formula)REFERENCE RANGE: > or = 60 ml/min/1.73M2IF PATIENT IS -EMIRATI, MULTIPLY REPORTED RESULT BY1.21. [Automated message] The system which generated this result transmitted reference range: >=60. The reference range was not used to interpret this result as normal/abnormal. CREATININE (test code = CREAT) 0.76 mg/dl 0.55-1.02 N TOTAL PROTEIN (test code = PROT) 7.8 g/dl 6.4-8.2 N ALBUMIN (test code = ALB) 3.7 g/dl 3.4-5.0 N CALCIUM (test code = CA) 9.3 mg/dL 8.5-10.1 N BILIRUBIN TOTAL (test code = BILT) 0.8 mg/dL 0.2-1.0 N SGOT/AST (test code = AST) 38 U/L 15-37 H SGPT/ALT (test code = ALT) 54 U/L 12-78 N ALKALINE PHOSPHATASE TOTAL (test code = ALKP) 139 U/L 45-117 H [id number] 16:11:00* Test Item Value Reference Range Interpretation Comme nts LIPASE (test code = LIP) 108 U/L 73-393 N URINALYSIS W REFLEX [id number] 16:05:00* Test Item Value Reference Range Interpretation Comme nts UA COLOR (test code = COLU) YELLOW YELLOW UA APPEARANCE (test code = APPU) CLEAR CLEAR UA GLUCOSE DIPSTICK (test co de = DGLUU) NEGATIVE mg/dl NORMAL UA BILIRUBIN DIPSTICK (test code = BILU) NEGATIVE mg/dl NEGATIVE UA KETONE DIPSTICK (test cod e = KETU) NEGATIVE mg/dl NEGATIVE UA SPECIFIC GRAVITY (test co de = SGU) 1.020 1.001-1.035 N UA BLOOD DIPSTICK (test code = NISSA) SMALL /UL NEGATIVE UA PH DIPSTICK (test code = EMILY) 7.0 4.6-8.0 UA PROTEIN DIPSTICK (test co de = PROU) NEGATIVE mg/dl NEGATIVE UA UROBILINIOGEN DIPSTICK (test code = URO) 0.2 mg/dl NORMAL UA NITRITE DIPSTICK (test co de = DEMETRIUS) NEGATIVE NEGATIVE UA LEUKOCYTE ESTERASE DIPSTI CK (test code = LEUU) NEGATIVE /UL NEGATIVE UA COMMENT (test code = COMU) CLN CATCH UA MICROSCOPIC NEEDED? (test code = UAMICRO) Y= DO UA MICRO UR HCG [id number] 16:05:00* Test Item Value Reference Range Interpretation Comme nts UR HCG QUAL (test code = HCGQLU) NEGATIVE NEGATIVE URINALYSIS W REFLEX [id number] 16:05:00* Test Item Value Reference Range Interpretation Comme nts UA COLOR (test code = COLU) YELLOW YELLOW UA APPEARANCE (test code = APPU) CLEAR CLEAR UA GLUCOSE DIPSTICK (test co de = DGLUU) NEGATIVE mg/dl NORMAL UA BILIRUBIN DIPSTICK (test code = BILU) NEGATIVE mg/dl NEGATIVE UA KETONE DIPSTICK (test cod e = KETU) NEGATIVE mg/dl NEGATIVE UA SPECIFIC GRAVITY (test co de = SGU) 1.020 1.001-1.035 N UA BLOOD DIPSTICK (test code = NISSA) SMALL /UL NEGATIVE UA PH DIPSTICK (test code = EMILY) 7.0 4.6-8.0 UA PROTEIN DIPSTICK (test co de = PROU) NEGATIVE mg/dl NEGATIVE UA UROBILINIOGEN DIPSTICK (test code = URO) 0.2 mg/dl NORMAL UA NITRITE DIPSTICK (test co de = DEMETRIUS) NEGATIVE NEGATIVE UA LEUKOCYTE ESTERASE DIPSTI CK (test code = LEUU) NEGATIVE /UL NEGATIVE UA COMMENT (test code = COMU) CLN CATCH UA MICROSCOPIC NEEDED? (test code = UAMICRO) Y= DO UA MICRO UA [id number] 16:05:00* Test Item Value Reference Range Interpretation Comme nts UA WBC (test code = WBCU) 0-2 #/hpf 0-5 UA RBC (test code = RBCU) 0-2 #/hpf 0-5 UA EPITHELIAL CELLS (test co de = EPIU) 2+ /hpf NEG,FEW A UA BACTERIA (test code = BACU) FEW /hpf NEGATIVE A UA AMORPHOUS SEDIMENT (test code = AMORU) FEW /hpf NEG,FEW UR HCG [id number] 16:05:00* Test Item Value Reference Range Interpretation Comme nts UR HCG QUAL (test code = HCGQLU) NEGATIVE NEGATIVE URINALYSIS W REFLEX [id number] 16:05:00* Test Item Value Reference Range Interpretation Comme nts UA COLOR (test code = COLU) YELLOW YELLOW UA APPEARANCE (test code = APPU) CLEAR CLEAR UA GLUCOSE DIPSTICK (test co de = DGLUU) NEGATIVE mg/dl NORMAL UA BILIRUBIN DIPSTICK (test code = BILU) NEGATIVE mg/dl NEGATIVE UA KETONE DIPSTICK (test cod e = KETU) NEGATIVE mg/dl NEGATIVE UA SPECIFIC GRAVITY (test co de = SGU) 1.020 1.001-1.035 N UA BLOOD DIPSTICK (test code = NISSA) SMALL /UL NEGATIVE UA PH DIPSTICK (test code = EMILY) 7.0 4.6-8.0 UA PROTEIN DIPSTICK (test co de = PROU) NEGATIVE mg/dl NEGATIVE UA UROBILINIOGEN DIPSTICK (test code = URO) 0.2 mg/dl NORMAL UA NITRITE DIPSTICK (test co de = DEMETRIUS) NEGATIVE NEGATIVE UA LEUKOCYTE ESTERASE DIPSTI CK (test code = LEUU) NEGATIVE /UL NEGATIVE UA COMMENT (test code = COMU) CLN CATCH UA MICROSCOPIC NEEDED? (test code = UAMICRO) Y= DO UA MICRO UR HCG [id number] 16:05:00* Test Item Value Reference Range Interpretation Comme nts UR HCG QUAL (test code = HCGQLU) NEGATIVE NEGATIVE DRUGS OF ABUSE [id number] 16:01:00* Test Item Value Reference Range Interpretation Comme nts UR COCAINE (test code = COCAU) NEGATIVE ng/ml NEGATIVE UR CANNABINOIDS (test code = CANU) POSITIVE ng/ml NEGATIVE A VALUE EXCEEDS CRITICAL LEVEL. CRITICAL VALUE CALLEDTO AND CRITICAL VALUE READ BACK BY HUBER DOWNING RN [id number] 06/24/20. Chas Dixon POSITIVE URINE DRUG SCREEN TEST RESULTS ARE UNCONFIRMED.REFERR ED CONFIRMATORY TESTING AVAILABLE UPON PHYSICIANREQUEST. UR AMPHETAMINE (test code = AMPHU) NEGATIVE ng/dl NEGATIVE UR BARBITURATE (test code = BARBU) NEGATIVE ng/ml NEGATIVE UR BENZODIAZEPINE (test code = BENZU) NEGATIVE ng/ml NEGATIVE UR OPIATES QUAL (test code = OPIAQLU) NEGATIVE ng/ml NEGATIVE UR PHENCYCLIDINE (PCP) (test code = PHENCU) NEGATIVE ng/ml NEGATIVE THE URINE SPECIM EN WAS TESTED AT THE L[facility]ED [facility] INITIAL TEST LEVEL AMPHETAMINES 1000 NG/MLBARBITURATES 200 NG/MLBENZODIAZEPIN ES 200 NG/MLCOCAINE METABOLITE 300 NG/MLMARIJUANA METABOLITE 50 NG/MLOPIATES 300 NG/MLPHENCYCLIDINE 25 NG/ML URINALYSIS W REFLEX [id number] 15:58:00* Test Item Value Reference Range Interpretation Comme nts UA COLOR (test code = COLU) YELLOW UA APPEARANCE (test code = APPU) CLEAR UA GLUCOSE DIPSTICK (test code = DGLUU) mg/dl NORMAL UA BILIRUBIN DIPSTICK (test code = BILU) mg/dl NEGATIVE UA KETONE DIPSTICK (test code = KETU) mg/dl NEGATIVE UA SPECIFIC GRAVITY (test code = SGU) 1.001-1.0 35 UA BLOOD DIPSTICK (test code = NISSA) /UL NEGATIVE UA PH DIPSTICK (test code = EMILY) 4.6-8.0 UA PROTEIN DIPSTICK (test code = PROU) mg/dl NEGATIVE UA UROBILINIOGEN DIPSTICK (t est code = URO) mg/dl NORMAL UA NITRITE DIPSTICK (test code = DEMETRIUS) NEGATIVE UA LEUKOCYTE ESTERASE DIPSTI CK (test code = LEUU) /UL NEGATIVE UA COMMENT (test code = COMU) UA MICROSCOPIC NEEDED? (test code = UAMICRO) UR HCG [id number] 15:58:00* Test Item Value Reference Range Interpretation Comme nts UR HCG QUAL (test code = HCGQLU) NEGATIVE NEGATIVE CBC W/AUTO [id number] 15:52:00* Test Item Value Reference Range Interpretation Comme nts WHITE BLOOD CELL (test code = WBC) 3.8 X10(3) 4.5-11.0 L RED BLOOD CELL (test code = RBC) 4.85 X10(6) 4.2-5.4 N HEMOGLOBIN (test code = HGB) 13.7 g/dL 12.5-16.0 N HEMATOCRIT (test code = HCT) 42.1 % 37.0-47.0 N MEAN CELL VOLUME (test code = MCV) 86.8 fL 78-100 N MEAN CELL HGB (test code = MCH) 28.2 pg 26.0-34.0 N MEAN CELL HGB CONCETRATION (test code = MCHC) 32.5 g/dl 30.0-37.0 N RED CELL DISTRIBUTION WIDTH (test code = RDW) 13.3 % 11.5-14.5 N PLATELET COUNT (test code = PLT) 241 X10(3) 150-350 N MEAN PLATELET VOLUME (test c ode = MPV) 11.7 fl 8.7-11.4 H NEUTROPHIL % (test code = NT%) 36.7 % 36.0-66.0 N IMMATURE GRANULOCYTE % (test code = IG%) 0.3 % 0.0-2.0 N LYMPHOCYTE % (test code = LY%) 48.2 % 16-50 N MONOCYTE % (test code = MO%) 13.0 % 0.0-13.0 N EOSINOPHIL % (test code = EO%) 0.8 % 0.0-4.5 N BASOPHIL % (test code = BA%) 1.0 % 0.0-1.5 N NEUTROPHIL # (test code = NT#) 1.4 X10(3) 1.7-7.7 L IMMATURE GRANULOCYTE # (test code = IG#) 0.01 X10(3)uL 0.00-0.03 N LYMPHOCYTE # (test code = LY#) 1.9 X10(3) 1.0-4.8 N MONOCYTE # (test code = MO#) 0.5 X10(3) 0.0-0.89 N EOSINOPHIL # (test code = EO#) 0.0 X10(3) 0.0-0.6 N BASOPHIL # (test code = BA#) 0.0 X10(3) 0.0-0.2 N RBC MORPHOLOGY REQUIRED (andrew t code = RBCM) NO NORMAL URINALYSIS W REFLEX [id number] 13:00:00* Test Item Value Reference Range Interpretation Comme nts UA COLOR (test code = COLU) DK YELLOW YELLOW UA APPEARANCE (test code = APPU) SL HAZY CLEAR UA GLUCOSE DIPSTICK (test co de = DGLUU) NEGATIVE mg/dl NORMAL UA BILIRUBIN DIPSTICK (test code = BILU) LARGE mg/dl NEGATIVE UA KETONE DIPSTICK (test cod e = KETU) 80 mg/dl NEGATIVE A UA SPECIFIC GRAVITY (test co de = SGU) >= 1.030 1.001-1.035 N UA BLOOD DIPSTICK (test code = NISSA) TRACE /UL NEGATIVE UA PH DIPSTICK (test code = EMILY) 6.0 4.6-8.0 UA PROTEIN DIPSTICK (test co de = PROU) 100 mg/dl NEGATIVE A UA UROBILINIOGEN DIPSTICK (test code = URO) 1.0 mg/dl NORMAL UA NITRITE DIPSTICK (test co de = DEMETRIUS) NEGATIVE NEGATIVE UA LEUKOCYTE ESTERASE DIPSTI CK (test code = LEUU) NEGATIVE /UL NEGATIVE UA COMMENT (test code = COMU) CLN CATCH UA MICROSCOPIC NEEDED? (test code = UAMICRO) Y= DO UA MICRO UA ICTOTEST FOR [id number] 13:00:00* Test Item Value Reference Range Interpretation Comme nts UA ICTOTEST FOR BILIRUBIN (t est code = ICTOU) POSITIVE NEGATIVE A UA [id number] 13:00:00* Test Item Value Reference Range Interpretation Comme nts UA WBC (test code = WBCU) 0-2 #/hpf 0-5 UA RBC (test code = RBCU) 3-5 #/hpf 0-5 UA EPITHELIAL CELLS (test co de = EPIU) FEW /hpf NEG,FEW UA BACTERIA (test code = BACU) FEW /hpf NEGATIVE A UA MUCUS (test code = MUCU) 1+ /hpf NEG,FEW A UR HCG [id number] 13:00:00* Test Item Value Reference Range Interpretation Comme nts UR HCG QUAL (test code = HCGQLU) NEGATIVE NEGATIVE DRUGS OF ABUSE [id number] 12:57:00* Test Item Value Reference Range Interpretation Comme nts UR COCAINE (test code = COCAU) NEGATIVE ng/ml NEGATIVE UR CANNABINOIDS (test code = CANU) POSITIVE ng/ml NEGATIVE A VALUE EXCEEDS CRITICAL LEVEL. CRITICAL VALUE CALLEDTO AND CRITICAL VALUE READ BACK BY NAIN Garg 05/19/20. Ruben Tena POSITIVE URINE DRUG SCREEN TEST RESULTS ARE UNCONFIRMED.REFERR ED CONFIRMATORY TESTING AVAILABLE UPON PHYSICIANREQUEST. UR AMPHETAMINE (test code = AMPHU) NEGATIVE ng/dl NEGATIVE UR BARBITURATE (test code = BARBU) NEGATIVE ng/ml NEGATIVE UR BENZODIAZEPINE (test code = BENZU) NEGATIVE ng/ml NEGATIVE UR OPIATES QUAL (test code = OPIAQLU) NEGATIVE ng/ml NEGATIVE UR PHENCYCLIDINE (PCP) (test code = PHENCU) NEGATIVE ng/ml NEGATIVE THE URINE SPECIM EN WAS TESTED AT THE LISTED C[facility]OFFS DRUG CLASS INITIAL TEST LEVEL AMPHETAMINES 1000 NG/MLBARBITURATES 200 NG/MLBENZODIAZEPIN ES 200 NG/MLCOCAINE METABOLITE 300 NG/MLMARIJUANA METABOLITE 50 NG/MLOPIATES 300 NG/MLPHENCYCLIDINE 25 NG/ML URINALYSIS W REFLEX [id number] 12:56:00* Test Item Value Reference Range Interpretation Comme nts UA COLOR (test code = COLU) DK YELLOW YELLOW UA APPEARANCE (test code = APPU) SL HAZY CLEAR UA GLUCOSE DIPSTICK (test co de = DGLUU) NEGATIVE mg/dl NORMAL UA BILIRUBIN DIPSTICK (test code = BILU) LARGE mg/dl NEGATIVE UA KETONE DIPSTICK (test cod e = KETU) 80 mg/dl NEGATIVE A UA SPECIFIC GRAVITY (test co de = SGU) >= 1.030 1.001-1.035 N UA BLOOD DIPSTICK (test code = NISSA) TRACE /UL NEGATIVE UA PH DIPSTICK (test code = EMILY) 6.0 4.6-8.0 UA PROTEIN DIPSTICK (test co de = PROU) 100 mg/dl NEGATIVE A UA UROBILINIOGEN DIPSTICK (test code = URO) 1.0 mg/dl NORMAL UA NITRITE DIPSTICK (test co de = DEMETRIUS) NEGATIVE NEGATIVE UA LEUKOCYTE ESTERASE DIPSTI CK (test code = LEUU) NEGATIVE /UL NEGATIVE UA COMMENT (test code = COMU) CLN CATCH UA MICROSCOPIC NEEDED? (test code = UAMICRO) Y= DO UA MICRO UA ICTOTEST FOR [id number] 12:56:00* Test Item Value Reference Range Interpretation Comme nts UA ICTOTEST FOR BILIRUBIN (t est code = ICTOU) POSITIVE NEGATIVE A UR HCG [id number] 12:56:00* Test Item Value Reference Range Interpretation Comme nts UR HCG QUAL (test code = HCGQLU) NEGATIVE NEGATIVE URINALYSIS W REFLEX [id number] 12:53:00* Test Item Value Reference Range Interpretation Comme nts UA COLOR (test code = COLU) DK YELLOW YELLOW UA APPEARANCE (test code = APPU) SL HAZY CLEAR UA GLUCOSE DIPSTICK (test co de = DGLUU) NEGATIVE mg/dl NORMAL UA BILIRUBIN DIPSTICK (test code = BILU) LARGE mg/dl NEGATIVE UA KETONE DIPSTICK (test cod e = KETU) 80 mg/dl NEGATIVE A UA SPECIFIC GRAVITY (test co de = SGU) >= 1.030 1.001-1.035 N UA BLOOD DIPSTICK (test code = NISSA) TRACE /UL NEGATIVE UA PH DIPSTICK (test code = EMILY) 6.0 4.6-8.0 UA PROTEIN DIPSTICK (test co de = PROU) 100 mg/dl NEGATIVE A UA UROBILINIOGEN DIPSTICK (test code = URO) 1.0 mg/dl NORMAL UA NITRITE DIPSTICK (test co de = DEMETRIUS) NEGATIVE NEGATIVE UA LEUKOCYTE ESTERASE DIPSTI CK (test code = LEUU) NEGATIVE /UL NEGATIVE UA COMMENT (test code = COMU) CLN CATCH UA MICROSCOPIC NEEDED? (test code = UAMICRO) Y= DO UA MICRO UR HCG [id number] 12:53:00* Test Item Value Reference Range Interpretation Comme nts UR HCG QUAL (test code = HCGQLU) NEGATIVE NEGATIVE URINALYSIS W REFLEX [id number] 12:53:00* Test Item Value Reference Range Interpretation Comme nts UA COLOR (test code = COLU) DK YELLOW YELLOW UA APPEARANCE (test code = APPU) SL HAZY CLEAR UA GLUCOSE DIPSTICK (test co de = DGLUU) NEGATIVE mg/dl NORMAL UA BILIRUBIN DIPSTICK (test code = BILU) LARGE mg/dl NEGATIVE UA KETONE DIPSTICK (test cod e = KETU) 80 mg/dl NEGATIVE A UA SPECIFIC GRAVITY (test co de = SGU) >= 1.030 1.001-1.035 N UA BLOOD DIPSTICK (test code = NISSA) TRACE /UL NEGATIVE UA PH DIPSTICK (test code = EMILY) 6.0 4.6-8.0 UA PROTEIN DIPSTICK (test co de = PROU) 100 mg/dl NEGATIVE A UA UROBILINIOGEN DIPSTICK (test code = URO) 1.0 mg/dl NORMAL UA NITRITE DIPSTICK (test co de = DEMETRIUS) NEGATIVE NEGATIVE UA LEUKOCYTE ESTERASE DIPSTI CK (test code = LEUU) NEGATIVE /UL NEGATIVE UA COMMENT (test code = COMU) CLN CATCH UA MICROSCOPIC NEEDED? (test code = UAMICRO) Y= DO UA MICRO UR HCG [id number] 12:53:00* Test Item Value Reference Range Interpretation Comme nts UR HCG QUAL (test code = HCGQLU) NEGATIVE NEGATIVE - XR ABDOMEN [id number] 12:16:00 [facility] 1990 Sex: F FAX: Sawyer Centeno II [place]: St: PRE Name: BREANNA QUEEN O[place] FSED : 1990 Age/S: 30/F [address] Unit #: [id number] Loc: [place] [address] Phys: Sawyer Centeno II, MD Acct: [id number] Dis Date: Status: PRE ER PHONE #: Exam Date: 05/19/2020 1212 FAX #: Reason: abdominal pain EXAMS: CPT CODE: [id number] XR ABDOMEN 2V 13044 - XR ABDOMEN 2V PROVIDED REASON FOR [...] CC: Technologist: Milan Ayala RT (R) CT Trnscrd Date/Time/By: 05/19/2020 ([id number]) : By: [email or web address] Orig Print D/T: S: 05/19/2020 ([id number]) PAGE 1 Signed ReportLIVER [id number] 12:08:00* Test Item Value Reference Range Interpretation Comme nts TOTAL PROTEIN (test code = PROT) 8.1 g/dl 6.4-8.2 N ALBUMIN (test code = ALB) 3.6 g/dl 3.4-5.0 N BILIRUBIN TOTAL (test code = BILT) 0.8 mg/dL 0.2-1.0 N BILIRUBIN DIRECT (test code = BILD) 0.21 mg/dl 0.0-0.2 H SGOT/AST (test code = AST) 25 U/L 15-37 N SGPT/ALT (test code = ALT) 35 U/L 12-78 N ALKALINE PHOSPHATASE TOTAL ( test code = ALKP) 119 U/L 45-117 H [id number] 12:08:00* Test Item Value Reference Range Interpretation Comme nts LIPASE (test code = LIP) 67 U/L 73-393 L BASIC METABOLIC [id number] 12:08:00* Test Item Value Reference Range Interpretation Comme nts SODIUM (test code = NA) 137 mmol/L 136-145 N POTASSIUM (test code = K) 4.0 mmol/L 3.5-5.1 N CHLORIDE (test code = CL) 100 mmol/L 98-107 N CARBON DIOXIDE (test code = CO2) 21 mmol/L 21-32 N GLUCOSE (test code = GLU) 109 mg/dL 70-100 H BLOOD UREA NITROGEN (test code = BUN) 14 mg/dL 7-18 N GLOMERULAR FILTRATION RATE (test code = GFR) > 60.00 See_Comment Reporting units: mL/min/1.73m\\S\\2 (Modified MDRD formula)REFERENCE RANGE: > or = 60 ml/min/1.73M2IF PATIENT IS -EMIRATI, MULTIPLY REPORTED RESULT BY1.21. [Automated message] The system which generated this result transmitted reference range: >=60. The reference range was not used to interpret this result as normal/abnormal. CREATININE (test code = CREAT) 0.64 mg/dl 0.55-1.02 N CALCIUM (test code = CA) 9.8 mg/dL 8.5-10.1 N CBC W/AUTO [id number] 11:43:00* Test Item Value Reference Range Interpretation Comme nts WHITE BLOOD CELL (test code = WBC) 10.3 X10(3) 4.5-11.0 N RED BLOOD CELL (test code = RBC) 4.55 X10(6) 4.2-5.4 N HEMOGLOBIN (test code = HGB) 13.0 g/dL 12.5-16.0 N HEMATOCRIT (test code = HCT) 40.3 % 37.0-47.0 N MEAN CELL VOLUME (test code = MCV) 88.6 fL 78-100 N MEAN CELL HGB (test code = MCH) 28.6 pg 26.0-34.0 N MEAN CELL HGB CONCETRATION (test code = MCHC) 32.3 g/dl 30.0-37.0 N RED CELL DISTRIBUTION WIDTH (test code = RDW) 13.5 % 11.5-14.5 N PLATELET COUNT (test code = PLT) 256 X10(3) 150-350 N MEAN PLATELET VOLUME (test c ode = MPV) 11.5 fl 8.7-11.4 H NEUTROPHIL % (test code = NT%) 86.0 % 36.0-66.0 H IMMATURE GRANULOCYTE % (test code = IG%) 0.1 % 0.0-2.0 N LYMPHOCYTE % (test code = LY%) 9.5 % 16-50 L MONOCYTE % (test code = MO%) 4.3 % 0.0-13.0 N EOSINOPHIL % (test code = EO%) 0.0 % 0.0-4.5 N BASOPHIL % (test code = BA%) 0.1 % 0.0-1.5 N NEUTROPHIL # (test code = NT#) 8.8 X10(3) 1.7-7.7 H IMMATURE GRANULOCYTE # (test code = IG#) 0.01 X10(3)uL 0.00-0.03 N LYMPHOCYTE # (test code = LY#) 1.0 X10(3) 1.0-4.8 N MONOCYTE # (test code = MO#) 0.4 X10(3) 0.0-0.89 N EOSINOPHIL # (test code = EO#) 0.0 X10(3) 0.0-0.6 N BASOPHIL # (test code = BA#) 0.0 X10(3) 0.0-0.2 N RBC MORPHOLOGY REQUIRED (andrew t code = RBCM) NO NORMAL URINALYSIS W REFLEX [id number] 22:06:00* Test Item Value Reference Range Interpretation Comme nts UA COLOR (test code = COLU) YELLOW YELLOW UA APPEARANCE (test code = APPU) CLEAR CLEAR UA GLUCOSE DIPSTICK (test co de = DGLUU) NORMAL mg/dl NORMAL UA BILIRUBIN DIPSTICK (test code = BILU) NEGATIVE mg/dl NEGATIVE UA KETONE DIPSTICK (test cod e = KETU) 60 mg/dl NEGATIVE UA SPECIFIC GRAVITY (test co de = SGU) 1.017 1.001-1.035 N UA BLOOD DIPSTICK (test code = NISSA) TRACE /UL NEGATIVE UA PH DIPSTICK (test code = EMILY) 6.0 4.6-8.0 UA PROTEIN DIPSTICK (test co de = PROU) 10 mg/dl NEGATIVE A UA UROBILINIOGEN DIPSTICK (test code = URO) NORMAL mg/dl NORMAL UA NITRITE DIPSTICK (test co de = DEMETRIUS) NEGATIVE NEGATIVE UA LEUKOCYTE ESTERASE DIPSTI CK (test code = LEUU) NEGATIVE /UL NEGATIVE UA COMMENT (test code = COMU) CLN CATCH UA WBC (test code = WBCU) 3-5 #/hpf 0-5 UA RBC (test code = RBCU) 3-5 #/hpf 0-5 UA EPITHELIAL CELLS (test co de = EPIU) 3+ /hpf NEG,FEW A UA BACTERIA (test code = BACU) FEW /hpf NEGATIVE A UA MUCUS (test code = MUCU) 2+ /hpf NEG,FEW A BASIC METABOLIC [id number] 21:54:00* Test Item Value Reference Range Interpretation Comme nts SODIUM (test code = NA) 136 mmol/L 136-145 N POTASSIUM (test code = K) 3.4 mmol/L 3.5-5.1 L CHLORIDE (test code = CL) 104 mmol/L 98-107 N CARBON DIOXIDE (test code = CO2) 24 mmol/L 21-32 N GLUCOSE (test code = GLU) 125 mg/dL 70-100 H BLOOD UREA NITROGEN (test code = BUN) 9 mg/dL 7-18 N GLOMERULAR FILTRATION RATE (test code = GFR) > 60.00 >=60 Reporting units: mL/min/1.73m\\S\\2 (Modified MDRD formula)REFERENCE RANGE: > or = 60 ml/min/1.73M2IF PATIENT IS -EMIRATI, MULTIPLY REPORTED RESULT BY1.21. CREATININE (test code = CREAT) 0.70 mg/dL 0.51-0.95 N CALCIUM (test code = CA) 9.3 mg/dL 8.5-10.1 N LIVER [id number] 21:54:00* Test Item Value Reference Range Interpretation Comme nts TOTAL PROTEIN (test code = PROT) 7.8 g/dl 6.4-8.2 N ALBUMIN (test code = ALB) 3.7 g/dl 3.4-5.0 N BILIRUBIN TOTAL (test code = BILT) 1.2 mg/dl 0.2-1.0 H BILIRUBIN DIRECT (test code = BILD) 0.34 mg/dl 0.0-0.4 N SGOT/AST (test code = AST) 21 U/L 15-37 N SGPT/ALT (test code = ALT) 29 U/L 12-78 N ALKALINE PHOSPHATASE TOTAL ( test code = ALKP) 69 U/L 50-136 N [id number] 21:54:00* Test Item Value Reference Range Interpretation Comme nts LIPASE (test code = LIP) 63 U/L 73-393 L BASIC METABOLIC [id number] 21:53:00* Test Item Value Reference Range Interpretation Comme nts SODIUM (test code = NA) 136 mmol/L 136-145 N POTASSIUM (test code = K) 3.4 mmol/L 3.5-5.1 L CHLORIDE (test code = CL) 104 mmol/L 98-107 N CARBON DIOXIDE (test code = CO2) 24 mmol/L 21-32 N GLUCOSE (test code = GLU) 125 mg/dL 70-100 H BLOOD UREA NITROGEN (test code = BUN) 9 mg/dL 7-18 N GLOMERULAR FILTRATION RATE (test code = GFR) > 60.00 >=60 Reporting units: mL/min/1.73m\\S\\2 (Modified MDRD formula)REFERENCE RANGE: > or = 60 ml/min/1.73M2IF PATIENT IS -EMIRATI, MULTIPLY REPORTED RESULT BY1.21. CREATININE (test code = CREAT) 0.70 mg/dL 0.51-0.95 N CALCIUM (test code = CA) 9.3 mg/dL 8.5-10.1 N LIVER [id number] 21:53:00* Test Item Value Reference Range Interpretation Comme nts TOTAL PROTEIN (test code = PROT) 7.8 g/dl 6.4-8.2 N ALBUMIN (test code = ALB) 3.7 g/dl 3.4-5.0 N BILIRUBIN TOTAL (test code = BILT) 1.2 mg/dl 0.2-1.0 H BILIRUBIN DIRECT (test code = BILD) 0.34 mg/dl 0.0-0.4 N SGOT/AST (test code = AST) 21 U/L 15-37 N SGPT/ALT (test code = ALT) 29 U/L 12-78 N ALKALINE PHOSPHATASE TOTAL ( test code = ALKP) U/L 50-136 [id number] 21:53:00* Test Item Value Reference Range Interpretation Comme nts LIPASE (test code = LIP) 63 U/L 73-393 L BASIC METABOLIC [id number] 21:52:00* Test Item Value Reference Range Interpretation Comme nts SODIUM (test code = NA) 136 mmol/L 136-145 N POTASSIUM (test code = K) 3.4 mmol/L 3.5-5.1 L CHLORIDE (test code = CL) 104 mmol/L 98-107 N CARBON DIOXIDE (test code = CO2) 24 mmol/L 21-32 N GLUCOSE (test code = GLU) 125 mg/dL 70-100 H BLOOD UREA NITROGEN (test code = BUN) 9 mg/dL 7-18 N GLOMERULAR FILTRATION RATE (test code = GFR) > 60.00 >=60 Reporting units: mL/min/1.73m\\S\\2 (Modified MDRD formula)REFERENCE RANGE: > or = 60 ml/min/1.73M2IF PATIENT IS -EMIRATI, MULTIPLY REPORTED RESULT BY1.21. CREATININE (test code = CREAT) 0.70 mg/dL 0.51-0.95 N CALCIUM (test code = CA) 9.3 mg/dL 8.5-10.1 N LIVER [id number] 21:52:00* Test Item Value Reference Range Interpretation Comme nts TOTAL PROTEIN (test code = PROT) g/dl 6.4-8.2 ALBUMIN (test code = ALB) 3.7 g/dl 3.4-5.0 N BILIRUBIN TOTAL (test code = BILT) mg/dl 0.2-1.0 BILIRUBIN DIRECT (test code = BILD) 0.34 mg/dl 0.0-0.4 N SGOT/AST (test code = AST) 21 U/L 15-37 N SGPT/ALT (test code = ALT) 29 U/L 12-78 N ALKALINE PHOSPHATASE TOTAL ( test code = ALKP) U/L 50-136 [id number] 21:52:00* Test Item Value Reference Range Interpretation Comme nts LIPASE (test code = LIP) 63 U/L 73-393 L BASIC METABOLIC [id number] 21:51:00* Test Item Value Reference Range Interpretation Comme nts SODIUM (test code = NA) 136 mmol/L 136-145 N POTASSIUM (test code = K) 3.4 mmol/L 3.5-5.1 L CHLORIDE (test code = CL) 104 mmol/L 98-107 N CARBON DIOXIDE (test code = CO2) 24 mmol/L 21-32 N GLUCOSE (test code = GLU) 125 mg/dL 70-100 H BLOOD UREA NITROGEN (test code = BUN) 9 mg/dL 7-18 N GLOMERULAR FILTRATION RATE (test code = GFR) > 60.00 >=60 Reporting units: mL/min/1.73m\\S\\2 (Modified MDRD formula)REFERENCE RANGE: > or = 60 ml/min/1.73M2IF PATIENT IS -EMIRATI, MULTIPLY REPORTED RESULT BY1.21. CREATININE (test code = CREAT) 0.70 mg/dL 0.51-0.95 N CALCIUM (test code = CA) 9.3 mg/dL 8.5-10.1 N LIVER [id number] 21:51:00* Test Item Value Reference Range Interpretation Comme nts TOTAL PROTEIN (test code = PROT) g/dl 6.4-8.2 ALBUMIN (test code = ALB) 3.7 g/dl 3.4-5.0 N BILIRUBIN TOTAL (test code = BILT) mg/dl 0.2-1.0 BILIRUBIN DIRECT (test code = BILD) 0.34 mg/dl 0.0-0.4 N SGOT/AST (test code = AST) U/L 15-37 SGPT/ALT (test code = ALT) U/L 12-78 ALKALINE PHOSPHATASE TOTAL ( test code = ALKP) U/L 50-136 [id number] 21:51:00* Test Item Value Reference Range Interpretation Comme nts LIPASE (test code = LIP) 63 U/L 73-393 L BASIC METABOLIC [id number] 21:49:00* Test Item Value Reference Range Interpretation Comme nts SODIUM (test code = NA) 136 mmol/L 136-145 N POTASSIUM (test code = K) 3.4 mmol/L 3.5-5.1 L CHLORIDE (test code = CL) 104 mmol/L 98-107 N CARBON DIOXIDE (test code = CO2) 24 mmol/L 21-32 N GLUCOSE (test code = GLU) 125 mg/dL 70-100 H BLOOD UREA NITROGEN (test co de = BUN) 9 mg/dL 7-18 N GLOMERULAR FILTRATION RATE ( test code = GFR) >=60 CREATININE (test code = CREAT) mg/dL 0.51-0.95 CALCIUM (test code = CA) 9.3 mg/dL 8.5-10.1 N LIVER [id number] 21:49:00* Test Item Value Reference Range Interpretation Comme nts TOTAL PROTEIN (test code = PROT) g/dl 6.4-8.2 ALBUMIN (test code = ALB) 3.7 g/dl 3.4-5.0 N BILIRUBIN TOTAL (test code = BILT) mg/dl 0.2-1.0 BILIRUBIN DIRECT (test code = BILD) mg/dl 0.0-0.4 SGOT/AST (test code = AST) U/L 15-37 SGPT/ALT (test code = ALT) U/L 12-78 ALKALINE PHOSPHATASE TOTAL ( test code = ALKP) U/L 50-136 [id number] 21:49:00* Test Item Value Reference Range Interpretation Comme nts LIPASE (test code = LIP) 63 U/L 73-393 L BASIC METABOLIC [id number] 21:48:00* Test Item Value Reference Range Interpretation Comme nts SODIUM (test code = NA) 136 mmol/L 136-145 N POTASSIUM (test code = K) 3.4 mmol/L 3.5-5.1 L CHLORIDE (test code = CL) 104 mmol/L 98-107 N CARBON DIOXIDE (test code = CO2) mmol/L 21-32 GLUCOSE (test code = GLU) mg/dL 70-100 BLOOD UREA NITROGEN (test co de = BUN) mg/dL 7-18 GLOMERULAR FILTRATION RATE ( test code = GFR) >=60 CREATININE (test code = CREAT) mg/dL 0.51-0.95 CALCIUM (test code = CA) 9.3 mg/dL 8.5-10.1 N LIVER [id number] 21:48:00* Test Item Value Reference Range Interpretation Comme nts TOTAL PROTEIN (test code = PROT) g/dl 6.4-8.2 ALBUMIN (test code = ALB) g/dl 3.4-5.0 BILIRUBIN TOTAL (test code = BILT) mg/dl 0.2-1.0 BILIRUBIN DIRECT (test code = BILD) mg/dl 0.0-0.4 SGOT/AST (test code = AST) U/L 15-37 SGPT/ALT (test code = ALT) U/L 12-78 ALKALINE PHOSPHATASE TOTAL ( test code = ALKP) U/L 50-136 [id number] 21:48:00* Test Item Value Reference Range Interpretation Comme nts LIPASE (test code = LIP) U/L 73-393 BASIC METABOLIC [id number] 21:46:00* Test Item Value Reference Range Interpretation Comme nts SODIUM (test code = NA) 136 mmol/L 136-145 N POTASSIUM (test code = K) 3.4 mmol/L 3.5-5.1 L CHLORIDE (test code = CL) 104 mmol/L 98-107 N CARBON DIOXIDE (test code = CO2) mmol/L 21-32 GLUCOSE (test code = GLU) mg/dL 70-100 BLOOD UREA NITROGEN (test co de = BUN) mg/dL 7-18 GLOMERULAR FILTRATION RATE ( test code = GFR) >=60 CREATININE (test code = CREAT) mg/dL 0.51-0.95 CALCIUM (test code = CA) mg/dL 8.5-10.1 LIVER [id number] 21:46:00* Test Item Value Reference Range Interpretation Comme nts TOTAL PROTEIN (test code = PROT) g/dl 6.4-8.2 ALBUMIN (test code = ALB) g/dl 3.4-5.0 BILIRUBIN TOTAL (test code = BILT) mg/dl 0.2-1.0 BILIRUBIN DIRECT (test code = BILD) mg/dl 0.0-0.4 SGOT/AST (test code = AST) U/L 15-37 SGPT/ALT (test code = ALT) U/L 12-78 ALKALINE PHOSPHATASE TOTAL ( test code = ALKP) U/L 50-136 [id number] 21:46:00* Test Item Value Reference Range Interpretation Comme nts LIPASE (test code = LIP) U/L 73-393 CBC W/AUTO [id number] 21:43:00* Test Item Value Reference Range Interpretation Comme nts WHITE BLOOD CELL (test code = WBC) 7.7 X10(3) 4.5-11.0 N RED BLOOD CELL (test code = RBC) 4.45 X10(6) 4.2-5.4 N HEMOGLOBIN (test code = HGB) 13.3 g/dL 12.5-16.0 N HEMATOCRIT (test code = HCT) 40.2 % 37.0-47.0 N MEAN CELL VOLUME (test code = MCV) 90.3 fl 78-100 N MEAN CELL HGB (test code = MCH) 29.9 pg 26.0-34.0 N MEAN CELL HGB CONCETRATION (test code = MCHC) 33.1 g/dl 30.0-37.0 N RED CELL DISTRIBUTION WIDTH (test code = RDW) 13.1 % 11.5-14.5 N PLATELET COUNT (test code = PLT) 192 X10(3) 150-350 N MEAN PLATELET VOLUME (test c ode = MPV) 12.9 fl 8.7-11.4 H NEUTROPHIL % (test code = NT%) 78.8 % 36.0-66.0 H IMMATURE GRANULOCYTE % (test code = IG%) 0.3 % 0.0-2.0 N LYMPHOCYTE % (test code = LY%) 15.3 % 16.0-50.0 L MONOCYTE % (test code = MO%) 5.2 % 0.0-13.0 N EOSINOPHIL % (test code = EO%) 0.1 % 0.0-4.5 N BASOPHIL % (test code = BA%) 0.3 % 0.0-1.5 N NUCLEATED RBC % (test code = NRBC%) 0.0 % 0-0.2 N NEUTROPHIL # (test code = NT#) 6.07 X10(3) 1.70-7.70 N IMMATURE GRANULOCYTE # (test code = IG#) 0.02 X10(3)uL 0.00-0.03 N LYMPHOCYTE # (test code = LY#) 1.18 X10(3) 0.70-4.00 N MONOCYTE # (test code = MO#) 0.40 X10(3) 0.00-0.89 N EOSINOPHIL # (test code = EO#) 0.01 X10(3) 0.00-0.60 N BASOPHIL # (test code = BA#) 0.02 X10(3) 0.00-0.20 N NUCLEATED RBC # (test code = NRBC#) 0.00 K/mm3 0.0-0.1 N Notes Date/Time Note Provider Source 2023-02-24 11:47:47 [id number]/f jHA9B BWVmt+k8Q4baPp2XRDo2016-86-09S04:47:47Formatt ing of this note is different from the original.Chief ComplaintPatient presents withFollow-Up Visit1 month follow up visitPaRENEE WuN 42860-7Hhjrd QxksWP4562-73-83O05:48:14Nurse NoteTXT1.2.840.758245.1.13.131.2.7.2.994125|3 [id number] for patient oxdk62549-7Dghyi NoteLNNARRATIVEFormatted C-CDA narrative textKELMain Campus Medical Center[address] [facility] Ho[id number]- 16T11:48:141.2.840.807020.1.72.3.15|1.2.840.1 [id number] [facility] 2022-06-11 11:33:00 [id number]/q4aSJeiszdqGvAw3cP4A1xgds c+eVJ D76vprJevC1+EQaGJiMzUSQEVGWCILg3419-24-31G71: 33:00 [facility] ([facility])EMERGENCY PROVIDER REPORTREPORT#:[id number] REPORT STATUS: SignedDATE:06/11/22 TIME: 1133 PATIENT: BREANNA JIMENEZ UNIT #: [id number]#: [id number] ROOM/BED:AGE: 32 SEX: F PCP PHYS: Undefined [...] History - AdultStated Complaint ABDOMINAL PAINAllergiesCoded Allergies:haloperidol (Severe, HIVES 06/11/22)scopolamine (Severe, HIVES 06/11/22) Home MedicationsActive ScriptsIBUPROFEN (MOTRIN) 600 MG PO QID PRN PRN PAIN IBUPROFEN (MOTRIN) 600 MG PO QID PRN PRN PAIN #30 TABS Prov: 02/10/21guaiFENesin ER (MUCINEX) 1,200 MG PO Q12H guaiFENesin ER (MUCINEX) 1,200 MG PO Q12H #30 TABS Prov: 02/10/21 Reported MedicationsAMOXICILLIN/CLAV K (AUGMENTIN 875/125 MG) 1 TAB PO Q12H PANTOPRAZOLE DR (PROTONIX) 20 MG PO DAILY [ASHKAN] Calculated Suicide Risk (nurs) No riskReview of Nursing Notes Rev avail, and agreeAdditional Medical HistoryIBS gastroparesis anxiety bipolar d/oPast Surgical History:Reports: Cholecystectomy (2015), Breast biopsy/procedure (2008). Additional Surgical Historybilateral ureter reattachment 1997 [facility] 2017 Botox injection to pylorusAlcohol Use Alcohol use (occasional)Drug Use MarijuanaSmoking status for patients 13 years old or older: Never Smoker Physical Exam Vital SignsVital SignsFirst Documented: Result Date Time Pulse Ox 99 05/ 1113 B/P 156/96 05/ 1113 B/P Mean 116 05/ 1113 O2 Delivery Room air 05/ 1113 Pulse 70 05/ 1113 Resp 18 05/ 1113 Temp 36.3 05/ 1206 Last Documented: Result Date Time Pulse Ox 100 05/ 1206 B/P 124/78 05/ 1206 B/P Mean 93 05/ 1206 Temp 36.3 05/ 1206 Pulse 77 05/03 1206 Resp 16 05/03 1206 O2 Delivery Room air 05/03 1113 Review of Vital Signs Reviewed Focused PEGeneral/Const General/Const Awake, Alert Distress/Hydration Distress mild. Eyes Eyes PERRL, EOMI, No scleral icterusResp/Chest Respiratory/Chest Breath sounds NL, Breath sounds = bilat, No respiratory distressCardiovascular Cardiovascular Regular [...] % (Auto) (16 - 50 %) 22.9 [place] % (Auto) (0.0 - 13.0 %) 9.8 [...] pH (4.6 - 8.0) 7.0 Ur Specific [place] (1.001 - 1.035) 1.020 Urine Protein [...] yesterday. After discussion patient states [facility] yesterdayand was prescribed compazine/reglan after blood work and CT scan were unremarkable. Re-Evaluation/Progress #1Time of Re-Eval 1157Re-Eval Status Improved ED CourseMedication(s) OrderedMedication(s) Ordered:Central Nervous System Agents Sig/Ayanna Start time Last Medication Dose Route Stop Time Status Admin Morphine Sulfate 4 MG X1ED STA 06/11 1129 DCr / IV 06/11 1130 1132 Electrolytic, Caloric, And Elvia Sig/Ayanna Start time Last Medication Dose Route Stop Time Status Admin Sodium Chloride 1,000 ML X1ED STA 06/11 1141 DC 05/ IV 05 1240 1155 Sodium Chloride 1,000 ML X1ED STA 06/11 1118 DC 05/03 IV / 1217 1123 Gastrointestinal Drugs Sig/Ayanna Start time Last Medication Dose Route Stop Time Status Admin Prochlorperazine 5 MG X1ED STA 06/11 1118 DC 05/03 Edisylate IV 06/11 1119 1124 Patient Discharge Departure Vital Signs/ConditionVital SignsFirst Documented: Result Date Time Pulse Ox 99 06/11 1113 B/P 156/96 / 1113 B/P Mean 116 / 1113 O2 Delivery Room air 06/11 1113 Pulse 70 06/11 1113 Resp 18 06/11 1113 Temp 36.3 / 1206 Last Documented: Result Date Time Pulse Ox 100 / 1206 B/P 124/78 05/ 1206 B/P Mean 93 / 1206 Temp 36.3 / 1206 Pulse 77 05/ 1206 Resp 16 06/11 1206 O2 Delivery Room air 06/11 1113 All vital signs available at the time of this entry have been reviewed. Clinical ImpressionClinical ImpressionPrimary Impression: Gastroenteritis Disposition DecisionDischarge )( Discharged to Home Yes )( Time 1200 )( Date 06/11/22 Discharge/Care PlanCounseled Regarding Diagnosis, Lab results, Need for follow-upPatient Instructions ED FOOD POIS or G-ENTERITIS 6y-aduAdditional InstructionsSchedule a follow-up appointment with your Primary Care Provider Discharge [...] condition and treatment plan as can beexpected at this point. The [...] these instructions in written format and have expressed an understanding of the discharge instructions. The patient and/or caregivers are aware that any significant change in condition or worsening of symptoms should prompt an immediate return to this or the closest emergency department or a call to 911. at 1245RPT #:[id number] OF REPORTEDEmergency department nziiba0321-05-22Z29:33:00H.[id number] VAvailable for patient eryxCSQTZTBBNAKDSR0844-53-09W39:45:50 [facility] 2021-02-09 23:43:00 [id number]a+JM qb4HT AzfJROz1M0Fm8C4lVa1lTanXvLRkrX71355-25-29R42: 43:00 [facility] ([facility])EMERGENCY PROVIDER REPORTREPORT#:[id number] REPORT STATUS: SignedDATE:02/09/21 TIME: 2343 PATIENT: BREANNA JIMENEZ UNIT #: [id number]#: [id number] ROOM/BED:AGE: 30 SEX: F PCP PHYS: No Primary or Family PhysicianSERVICE AUTHOR: Kaelyn Peguero MD * ALL edits or amendments must be made on the electronic/computer document * LEJ-End-Naox Illness GeneralConfirmed Patient YesPatient Type New patientInitial Greet Date/Time 02/09/21 2312 PresentationChief Complaint Body aches, Chills, Cough Free Text HPI NotesFree Text HPI [id number]-rht female comes emergency room complaining of cough, body aches, chills, that began 2 days ago. Patient has been traveling in [place] and apparently although she has been driving [...] Diarrhea, Nausea, Vomiting. MusculoskeletalDenies: Back pain, Extremity pain. HematologicDenies: Bleeding, Bruising. SkinDenies: Diaphoresis, Rash. NeurologicDenies: [...] (2008). Additional Surgical Historybilateral ureter reattachment 1997 [facility] 2018 Botox injection to pylorusAlcohol Use Alcohol [...] No rhonchi, No wheezing, No retractionsCardiovascular Cardiovascular Heart rate NL, Regular rhythm, Heart sounds NL, No murmurs, Peripheral circulation NLAbdomen/GI Abdomen/GI Soft, Non-tender, No guarding, No reboundLymphatic Lymphatic No gross adenopathySkin Skin Color NL, No rash, Warm, Dry, Turgor NLNeurologic Neurologic Oriented X3, Speech NL, No motor deficits, No sensory deficits Re-Evaluation MDM ED CourseMedication(s) OrderedMedication(s) Ordered:Central Nervous System Agents Sig/Ayanna Start time Last Medication Dose Route Stop Time Status Admin Ketorolac 15 MG X1ED STA 02/09 2345 DC 02/10 Tromethamine IM 02/09 2346 0000 Hormones And Synthetic Substit Sig/Ayanna Start time Last Medication Dose Route Stop Time Status Admin Methylprednisolone 125 MG X1ED STA 02/09 2346 DC 02/09 Sodium Succinate IM 02/09 2347 2359 Patient Discharge Departure Vital Signs/ConditionVital SignsFirst Documented: [...] 78 02/09 2310 Resp 18 02/09 2310 All vital signs available at the time [...] change, new symptoms or worsening symptoms. at 0652RPT #:[id number] OF REPORTEDEmergency department xmbrho2544-97-14K62:43:00H.[id number] VAvailable for patient kocbFCRWGLICGSWYVU7284-69-02W57:53:06 [facility] 2020-[facility] 15:35:00 [id number]+W3Oxadzlzu5okir n9MbG cw++6/6inceV0ewmTry7+NnE7/PXzs7lc0U6g29287-28 -16T15:35:00 [facility] ([facility])EMERGENCY PROVIDER REPORTREPORT#:[id number] REPORT STATUS: SignedDATE:06/24/20 TIME: 1534 PATIENT: BREANNA JIMENEZ UNIT #: [id number]#: [id number] ROOM/BED:AGE: 30 SEX: F PCP PHYS: No Primary or Family PhysicianSERVICE AUTHOR: Maicol Coy MD * ALL edits or amendments must be made on the electronic/computer document * HPI-Abd Pain F Under 40 GeneralInitial Greet Date/Time 06/24/20 1529PCPDr. Nan in [facility] [place] PresentationChief Complaint Abdominal pain, Nausea, Vomiting moderateHx [...] Nothing Free Text HPI NotesFree Text HPI Idlqp56e M2 LMP 19 May 2020 c/o acute on chronic gastroparesis related to IBS and/or THC use for past 2d with nonbloody N/V x 6. [place]. Risk-Abd Pain F Under 40)( Ectopic Risk [...] Additional Medical HistoryIBSgastroparesisanxietybipolar d/oPast Surgical History:Reports: Cholecystectomy (2015), Breast biopsy/procedure (2008). Additional Surgical Historybilateral ureter reattachment 1998LEEP 2018Botox injection to pylorusAlcohol Use Alcohol use (occasional)Drug Use MarijuanaSmoking status: Smoking status for patients 13 years old or older: Current every day smoker Physical Exam Vital SignsVital SignsFirst Documented: [...] No CVA tenderness Interpretation Diagnostics Lab Results InterpretationResultsLaboratory Tests 06/24/20 1545:[Embedded Image Not Available]Laboratory Tests: 06/24 06/24 06/24 1545 1537 1537Chemistry Sodium (136 - 145 mmol/L) 138 Potassium [...] g/dl) 3.7 Lipase (73 - 393 U/L) 108Hematology WBC [...] % (Auto) (16 - 50 %) 48.2 [place] % (Auto) (0.0 - 13.0 %) 13.0 [...] Ketones (NEGATIVE mg/dl) NEGATIVEUrines Urine Color (YELLOW) YELLOW Urine Appearance (CLEAR) CLEAR Urine pH (4.6 - 8.0) 7.0 Ur Specific [place] (1.001 - 1.035) 1.020 Urine Protein [...] considered in the medical decision-making. Re-Evaluation MDM )( Re-Evaluation/Progress #1Text/Dict NotePt states her episode is resolved and is happy in room with her . Her HRis 80's, so she d/n have 2 SIRS criteria.Time of Re-Eval 1648)( Re-Eval Status Improved, Resolved Abd Pain MDM [...] is either 1) no gross radial pulse differential and/or 2) no significant blood pressure differential between the right and left arms. Tissue Perfusion ReassessmentPatient tissue perfusion reassessment completed. ED CourseMedication(s) OrderedMedication(s) Ordered:Electrolytic, Caloric, And [...] 1650 )( Date 06/24/20 Discharge/Care PlanCounseled Regarding Diagnosis, Lab results, Need for follow-up, When to return to ED, Smoking cessation (MJ)Patient Instructions ED How to Quit Smoking, ED [...] condition and treatment plan as can beexpected at this point. The [...] these instructions in written format and have expressed an [...] patient was advised to stop smoking and counseled for a period ofgreater than 3 minutes. The patient was instructed to follow up with a primary care physician for smoking cessation and given information regarding local smoking cessation programs in the area. The patient received detailed discharge instructions as to how to stop smoking. The patient expressed an understanding of the need to follow up and the plan for smoking cessation. at 2053RPT #:[id number] OF REPORTEDEmergency department evfnpr3068-17-45O91:35:00H.[id number] VAvailable for patient owwjXVPVXJZQGADZZY6481-66-27H00:53:15 [facility] 2020-05-19 12:11:00 [id number] 3xkQV b9smTMLqydY8eGlbrDLo9iPBhKxVE5D4BHIU5f7186-53 -10T12:11:00 [facility] ([facility])EMERGENCY PROVIDER REPORTREPORT#:[id number] REPORT STATUS: SignedDATE:05/19/20 TIME: 1211 PATIENT: BREANNA QUEEN UNIT #: [id number]#: [id number] ROOM/BED:AGE: 30 SEX: F PCP PHYS: Brayan Winn MDSERVICE AUTHOR: Sawyer Centeno II, MD * ALL edits or amendments must be made on the electronic/computer document * HPI-Abd Pain F Under 40 Free Text HPI NotesFree Text HPI NotesThe patient tells me she has a history of gastroparesis but is not a diabetic. She tells me that she is from [facility] and [facility] name is Dr. Hendrix. She tells me she used to get Botox injections in her pilorus to treat her pain. She tells me she went to a local hospital yesterday and got several medications for pain but the pain did not getany better. GeneralConfirmed Patient YesInitial Greet Date/Time 05/19/20 1129PCPIn [facility] PresentationChief Complaint Abdominal painHx Obtained From PatientSudden in Onset? NoOnset Occurred ChronicSymptom Duration Waxes and wanesProgression since Onset Waxes and wanesCaused by No trauma by historyLocation DiffuseQuality Same as prior, AchingRadiationDoes not radiate. Exacerbated by NothingRelieved by Nothing Risk-Abd Pain F Under 40)( Ectopic Risk factors reviewedCoronary Artery Disease Risk factors reviewed, No risk factorsThoracic Aortic Dissection Risk factors reviewed, No risk factors Review of Systems ROS StatementsAll systems rev neg except as marked. Focused Review of SystemsConstitutionalDenies: Chills, Fatigue, Fever, Lethargy, Malaise, Recent wt loss, Weakness - generalized. RespiratoryDenies: Cough, [...] ABD PAIN AND NAUSEAAllergiesCoded Allergies:scopolamine (Mild, RASH-HIVES 05/19/20) Review of Nursing Notes Rev avail, and agreeAdditional Medical HistoryGastroparesisPast Surgical History:Reports: Cholecystectomy. Physical Exam Vital SignsVital SignsFirst Documented: Result Date Time Pulse Ox 98 05/19 1128 B/P 158/101 04/ 1128 B/P Mean 120 05/19 1128 Temp 36.9 04 1128 Pulse 84 05/19 1128 Resp 18 05/19 1128 Last Documented: Result Date Time Pulse Ox 98 05/19 1128 B/P 158/101 05/19 1128 B/P Mean 120 05/19 1128 Temp 36.9 05/19 1128 Pulse 84 04 1128 Resp 18 05/19 1128 Review of Vital Signs Reviewed Focused PEGeneral/Const [...] No rebound, BS normoactiveMS Back Back Atraumatic, Inspection NL, Full range of motionSkin Skin Atraumatic, [...] pH (4.6 - 8.0) 6.0 Ur Specific [place] (1.001 - 1.035) >= 1.030 Urine [...] (Auto) (16 - 50 %) 9.5 L [place] % (Auto) (0.0 - 13.0 %) 4.3 [...] %) 0.1 RBC Morphology (NORMAL) NO Recent Impressions:RADIOLOGY - XR ABDOMEN 2V 05/19 1212 Report Impression - Status: SIGNED Entered: 05/19/2020 1219 IMPRESSION:No acute process. Location: [id number] By: Emily CABALLERO M.D. Imaging StatementRadiographic studies reviewed and considered in the medical decision-making. Lab Imaging StatementLaboratory radiographic studies reviewed and considered in the medical decision-making. Re-Evaluation MDM )( Re-Evaluation/Progress #1Time of Re-Eval 1258)( Re-Eval Status ImprovedPlan Post Re-Eval Plan discharge ED CourseMedication(s) OrderedMedication(s) Ordered:Antihistamine Drugs Sig/Ayanna Start time Last Medication Dose Route Stop Time Status Admin Diphenhydramine HCl 50 MG X1ED STA 05/19 1212 DC / IV 05/19 1213 1239 Electrolytic, Caloric, And Elvia Sig/Ayanna Start time Last Medication Dose Route Stop Time Status Admin Sodium Chloride 1,000 ML X1ED STA 05/19 1212 DC 04/10 IV 05/19 1311 1239 Gastrointestinal Drugs Sig/Ayanna Start time Last Medication Dose Route Stop Time Status Admin Metoclopramide HCl 5 MG X1ED STA 05/19 1212 DC /10 IV 05/19 1213 1240 Patient Discharge Departure Vital Signs/ConditionVital SignsFirst Documented: Result Date Time Pulse Ox 98 04/ 1128 B/P 158/101 04/10 1128 B/P Mean 120 04/10 1128 Temp 36.9 04/10 1128 Pulse 84 04/10 1128 Resp 18 05/19 1128 Last Documented: Result Date Time Pulse Ox 98 04/10 1128 B/P 158/101 04/10 1128 B/P Mean 120 04/10 1128 Temp 36.9 04/10 1128 Pulse 84 04/10 1128 Resp 18 05/19 1128 All vital [...] ED Chronic PainReferralsIsatu See MD: 2-3 DaysCall or go to the office for appointment [...] condition and treatment plan as can beexpected at this point. The [...] these instructions in written format and have expressed an understanding of the discharge instructions. The patient and/or caregivers are aware that any significant change in condition or worsening of symptoms should prompt an immediate return to this or the closest emergency department or a call to 911. Quality MeasuresBP F/U for HTN F/u with PCP/other doc at 1708RPT #:[id number] OF REPORTEDEmergency department crvmwm6012-13-27Q46:11:00H.[id number] VAvailable for patient mtcdERETXOUGMDTBMJ2225-97-52O84:08:49 [facility] 2019-07-30 21:12:00 [id number]+z44of/FcEkEtU j+eWE sNtQYq5iKKRzLNAdTTIB3ktDmVk4cKTm002oH71551-65 -20T21:12:00 [facility] ([facility])EMERGENCY PROVIDER REPORTREPORT#:[id number] REPORT STATUS: SignedDATE:07/30/19 TIME: 2111 PATIENT: BREANNA JIMENEZ UNIT #: [id number]#: [id number] ROOM/BED:AGE: 29 SEX: F PCP PHYS: No Primary or Family PhysicianSERVICE AUTHOR: Soha Rojas * ALL edits or amendments must be made on the electronic/computer document * HPI-Abd Pain F Under 40 GeneralConfirmed Patient YesPatient Type New patientInitial Greet Date/Time 07/30/19ssumed Care at [...] denies other symptomsExacerbated by NothingRelieved by Nothing ContextImmunization Status General All up to dateRecent Healthcare Recent doctor visitSimilar Sx Previous YesPregnancy/Sexual Hx Last Menstrual Period 06/24/19Additional ContextON CONTROL Risk-Abd Pain F Under 40)( Ectopic Risk factors reviewedCoronary Artery Disease Risk factors reviewedThoracic [...] Dysuria, Flank pain. MusculoskeletalDenies: Back pain, Extremity pain, Lumbar pain. Past Medical History - AdultStated Complaint ABDAllergiesCoded Allergies:No Known Allergies (07/30/19) Home MedicationsReported MedicationsAMOXICILLIN/CLAV K (AUGMENTIN 875/125 MG) 1 TAB PO Q12H PANTOPRAZOLE DR (PROTONIX) 20 MG PO DAILY [ASHKAN] Review of Nursing Notes Rev avail, and agreeAlcohol Use Denies EtOH useDrug Use Denies recreational drugsSmoking status for patients 13 years old or older: Never SmokerAmbulatory Status Independent Physical Exam Vital SignsVital SignsFirst Documented: Result [...] appearing, Well developed, Well nourished, Cooperative, Not toxic appearing Appearance/Presentation Appears older than age. MS Head Head NormocephalicEyes Eyes PERRL, No nystagmusEars/Nose/Throat Ears/Nose/Throat Airway patent, Mucous membranes moist, Pharynx NLResp/Chest Respiratory/Chest Breath sounds NL, No respiratory distressCardiovascular Cardiovascular Regular rhythm, Heart sounds NLAbdomen/GI Abdomen/GI Soft Tenderness/Guarding/Rebound Tender epigastric. MS Back Back Inspection NL, Full range of motionSkin Skin Color NL, No rash, Warm, Dry, Intact, Turgor NL, No swellingNeurologic Neurologic [...] (Auto) (16.0 - 50.0 %) 15.3 L [place] % (Auto) (0.0 - 13.0 %) 5.2 [...] pH (4.6 - 8.0) 6.0 Ur Specific [place] (1.001 - 1.035) 1.017 Urine Protein [...] Urine Comment CLN CATCH Point of Care TestingUrinalysis Interpretation Urinalysis NL Re-Evaluation [facility] )( Re-Evaluation/Progress #1Time of Re-Eval 2229)( Re-Eval Status ImprovedRe-Eval Abdomen SoftEval Following Treatment Pt. feels better, Condition improvedPain Re-Evaluation Pain improvedPlan Post Re-Eval Plan discharge Abd Pain MDM [...] discharge instructions. Tissue Perfusion ReassessmentPatient tissue perfusion reassessment completed. ED CourseMedication(s) OrderedMedication(s) Ordered:Cardiovascular Drugs Sig/Ayanna Start time Last Medication Dose Route Stop Time Status Admin Lidocaine HCl 10 ML X1ED STA 07/29 2113 DC PO 07/29 2114 Central Nervous System Agents Sig/Ayanna Start time Last Medication Dose Route Stop Time Status Admin Ketorolac 30 MG X1ED STA 07/29 2333 DC 07/29 Tromethamine IV 07/29 2333 2336 [...] condition and treatment plan as can beexpected at this point. The [...] these instructions in written format and have expressed an understanding of the discharge instructions. The patient and/or caregivers are aware that any significant change in condition or worsening of symptoms should prompt an immediate return to this or the closest emergency department or a call to 911. at 0000RPT #:[id number] OF REPORTEDEmergency department xlxbuk3002-07-12W72:12:00H.[id number] VAvailable for patient esxuHEQYIPYIYITYWK6219-99-73V23:00:25 [facility] 2019-07-30 21:12:00 [id number] Mili+2 LOD7pUdsKtT2EL4neZDUOTQJNfHalu8nVv01qR2354-92 -20T21:12:00 [facility] ([facility])EMERGENCY PROVIDER REPORTREPORT#:[id number] REPORT STATUS: SignedDATE:07/30/19 TIME: 2111 PATIENT: BREANNA JIMENEZ UNIT #: [id number]#: [id number] ROOM/BED:AGE: 29 SEX: F PCP PHYS: No Primary or Family PhysicianSERVICE AUTHOR: Soha Rojas * ALL edits or amendments must be made on the electronic/computer document * HPI-Abd Pain F Under 40 GeneralConfirmed Patient YesPatient Type New patientInitial Greet Date/Time 07/30/19ssumed Care at [...] denies other symptomsExacerbated by NothingRelieved by Nothing ContextImmunization Status General All up to dateRecent Healthcare Recent doctor visitSimilar Sx Previous YesPregnancy/Sexual Hx Last Menstrual Period 06/24/19Additional ContextON CONTROL Risk-Abd Pain F Under 40)( Ectopic Risk factors reviewedCoronary Artery Disease Risk factors reviewedThoracic [...] Dysuria, Flank pain. MusculoskeletalDenies: Back pain, Extremity pain, Lumbar pain. Past Medical History - AdultStated Complaint ABDAllergiesCoded Allergies:No Known Allergies (07/30/19) Home MedicationsReported MedicationsAMOXICILLIN/CLAV K (AUGMENTIN 875/125 MG) 1 TAB PO Q12H PANTOPRAZOLE DR (PROTONIX) 20 MG PO DAILY [ASHKAN] Review of Nursing Notes Rev avail, and agreeAlcohol Use Denies EtOH useDrug Use Denies recreational drugsSmoking status for patients 13 years old or older: Never SmokerAmbulatory Status Independent Physical Exam Vital SignsVital SignsFirst Documented: Result [...] appearing, Well developed, Well nourished, Cooperative, Not toxic appearing Appearance/Presentation Appears older than age. MS Head Head NormocephalicEyes Eyes PERRL, No nystagmusEars/Nose/Throat Ears/Nose/Throat Airway patent, Mucous membranes moist, Pharynx NLResp/Chest Respiratory/Chest Breath sounds NL, No respiratory distressCardiovascular Cardiovascular Regular rhythm, Heart sounds NLAbdomen/GI Abdomen/GI Soft Tenderness/Guarding/Rebound Tender epigastric. MS Back Back Inspection NL, Full range of motionSkin Skin Color NL, No rash, Warm, Dry, Intact, Turgor NL, No swellingNeurologic Neurologic [...] (Auto) (16.0 - 50.0 %) 15.3 L [place] % (Auto) (0.0 - 13.0 %) 5.2 [...] pH (4.6 - 8.0) 6.0 Ur Specific [place] (1.001 - 1.035) 1.017 Urine Protein [...] Urine Comment CLN CATCH Point of Care TestingUrinalysis Interpretation Urinalysis NL Re-Evaluation MDM )( Re-Evaluation/Progress #1Time of Re-Eval 2228)( Re-Eval Status ImprovedRe-Eval Abdomen SoftEval Following Treatment Pt. feels better, Condition improvedPain Re-Evaluation Pain improvedPlan Post Re-Eval Plan discharge Abd Pain MDM Note F < 40The patient is resting comfortably and feels better, is alert and in no distress. The repeat examination is unremarkable and benign; in particular, there is no discomfort at Burney's point. The history, exam, diagnostic testing, and [...] discharge instructions. Tissue Perfusion ReassessmentPatient tissue perfusion reassessment completed. ED CourseMedication(s) OrderedMedication(s) Ordered:Cardiovascular Drugs Sig/Ayanna Start time Last Medication Dose Route Stop Time Status Admin Lidocaine HCl 10 ML X1ED STA 07/29 2113 DC PO 07/29 2114 Central Nervous System Agents Sig/Ayanna Start time Last Medication Dose Route Stop Time Status Admin Ketorolac 30 MG X1ED STA 07/29 2333 DC 07/29 Tromethamine IV 07/29 2334 2336 Promethazine HCl 25 MG X1ED STA 07/298 DCr 07/29 IM 07/29 2258 230 Ketorolac 30 MG X1ED STA 07/29 2114 DC 07/29 Tromethamine IV 07/29 Electrolytic, Caloric, And Elvia Sig/Ayanna Start time Last Medication Dose Route Stop Time Status Admin Potassium Chloride 20 MEQ X1ED STA 07/29 2228 DC PO 07/29 2229 Sodium Chloride 1,000 ML X1ED STA 07/29 2113 DC 07/29 IV 07/29 Gastrointestinal Drugs Sig/Ayanna Start time Last [...] condition and treatment plan as can beexpected at this point. The [...] these instructions in written format and have expressed an understanding of the discharge instructions. The patient and/or caregivers are aware that any significant change in condition or worsening of symptoms should prompt an immediate return to this or the closest emergency department or a call to 911. at 0000 at 0024RPT #:[id number] OF REPORTTexas Health Kaufman department gsfhqg5177-25-93G05:12:00H.[id number] VAvailable for patient ghbgKFEVURUGOXNQGD5027-89-80I95:24:32 HCARG"
[2023-03-02 15:36] LABS: Absolute Lymphocytes (CBC) 1.8 K/uL (0.7-4.9); Hematocrit 38.6 % (36.0-45.0); Lymphocytes % 17.9 % (15.3-44.8); MCV 86.2 fL (80-100); MPV 9.5 fL (7.6-11.3); Platelets 336 thou/uL (152-406); RBC Red Blood Cell Count 4.49 M/uL (3.86-4.86)
[2023-03-02 15:52] LABS: Specific Gravity 1.024 (1.005-1.030)
[2023-03-02 15:56] LABS: Specific Gravity 1.024 (1.005-1.030); Urine Bacteria <20 /HPF (<20); Urine Bilirubin NEGATIVE (Negative); Urine Blood Trace (Negative); Urine Clarity Extremely Turbid (Clear); Urine Color Yellow (Yellow); Urine Crystals Unidentified Few /HPF (None Seen); Urine Glucose NEGATIVE (Negative); Urine Mucus 4+ /HPF (None Seen); Urine Protein 1+ (Negative); Urine Urobilinogen 1+ (Normal); Urine pH 6.5 (5.0-7.0)
[2023-03-02 16:06] LABS: Albumin 3.7 g/dL (3.4-5.0); Bilirubin Total 0.7 mg/dL (0.2-1.0); Potassium 3.8 mEq/L (3.5-5.1); Protein, Total 7.7 g/dL (6.4-8.2)
--- NOTE | 2023-03-02 17:56 | RAD REPORT ---
EXAM DESCRIPTION: CT - Abdomen Pelvis W Contrast - 03/02/2023 5:17 pm CLINICAL HISTORY: ABD PAIN COMPARISON: Abdomen Pelvis W Contrast dated 12/31/2022; Abdomen Pelvis W Contrast dated 3; Abdomen Pelvis W Contrast dated 10/25/2021; Abdomen Pelvis W Contrast dated 09/06/2021 TECHNIQUE: Thin cut axial CT imaging of the abdomen and pelvis was performed following intravenous a dministration of Isovue 300. Multiplanar reformats were generated and reviewed. All CT scans are performed using dose optimization technique as appropriate and may include automated exposure control or mA/KV adjustment according to patient size. FINDINGS: No suspicious findings in the lung bases. The liver shows diffuse parenchymal hypoattenuation suggesting steatosis. Spleen, adrenal glands, and pancreas show no suspicious findings. Gallbladder was surgically removed. Symmetric renal function is seen with no hydronephrosis or suspicious renal mass. Lobulated renal con tour more so on the right, stable, may reflect sequelae of remote infection and scarring. No dilated bowel loops or bowel wall thickening. No free air, free fluid or inflammatory stranding. N o hernia, mass or bulky lymphadenopathy. The urinary bladder is decompressed limiting evaluation. No suspicious bony findings. IMPRESSION: No acute intra-abdominal process.
--- NOTE | 2023-03-02 18:04 | EDPHYS ---
Physician Documentation [facility] Name: Efrem Pastor Age: 32 yrs Sex: Female : 1990 Arrival Date: 03/02/2023 Time: 14:20 Bed 11 Private MD: Clarence Cooper ED Physician Alcides Solomon HPI: 03/02 14:48 This 32 yrs old Female presents to ER via Ambulatory with complaints of ec2 Abdominal Pain, Nausea/Vomiting. 14:48 Patient arrives today for evaluation of abdominal pain. Patient complaining of upper ec2 abdominal pain that started just prior to arrival. Reports episodes of nausea and vomiting without diarrhea. No urinary complaints, no cough or cold symptoms.. Historical: - Allergies: 14:36 Haldol; ld1 14:36 Scopolamine HBr; ld1 - PMHx: 14:36 Gastroparesis; Irritable bowel syndrome; PTSD; ld1 - PSHx: 14:36 bilateral ureter attachment; Cholecystectomy; leep procedure; Lumpectomy of breast; ld1 right breast; - Immunization history:: Adult Immunizations up to date. - Social history:: Smoking status: Patient denies any tobacco usage or history of. Patient/guardian denies using alcohol. ROS: 14:48 Constitutional: as per hpi ec2 Exam: 14:48 Constitutional: GEN: NAD Head: atraumatic Eyes: EOMI Ears: External ears are ec2 normal. CV: Tachycardia LUNGS: no respiratory distress ABD: non-distended, soft, tenderness in the epigastrium, no guarding, not rigid SKIN: no evidence of rashes MSK: no evidence of trauma NEURO: moves all extremities equally Vital Signs: 14:34 Pulse 137; Resp 18; Temp 97.6(TE); Pulse Ox 100% on R/A; Weight 68.04 kg; Height 5 ft. ld1 2 in. ; Pain 9/10; 14:37 BP 151 / 100; ld1 17:04 BP 130 / 107; Pulse 112; ec2 17:19 BP 143 / 95; Pulse 109; Resp 16 S; Pulse Ox 96% on R/A; kc6 17:58 Pulse 101; ec2 14:34 Body Mass Index 27.44 (68.04 kg, 157.48 cm) ld1 14:34 Pain Scale: Adult ld1 MDM: 14:46 Patient medically screened. ec2 14:48 Data reviewed: vital signs. ED course: Patient arrives today for upper abdominal pain. ec2 Examination remarkable for tachycardia as well as upper abdominal pain. Will obtain lab work, CT imaging, urine studies. Will treat with morphine and crystalloid and Zofran.. 16:11 ED course: CBC reassuring, reassuring metabolic profile with slight LFT abnormality. ec2 Urine is markedly contaminated without gross evidence of infection. Lipase within normal ranges, negative test. Pending CT imaging. . 17:11 ED course: Delay in CT scan was due to patient refusal ultimately was unable to get ec2 marked improvement in her symptoms, will proceed with imaging and a dose of Reglan.. 17:57 ED course: CT abdomen pelvis shows no acute intra-abdominal process. Will discharge ec2 home, presentation consistent with gastroparesis. Return precautions given.. 18:03 ED course: CT imaging shows no acute intra-abdominal process. Will discharge home. ec2 Return precautions given.. 03/02 14:46 Order name: CBC with Diff; Complete Time: 16:10 ec2 03/02 14:46 Order name: CMP; Complete Time: 16:10 ec2 03/02 14:46 Order name: Lipase; Complete Time: 16:10 ec2 03/02 14:46 Order name: Test, Urine; Complete Time: 16:10 ec2 03/02 14:46 Order name: Urinalysis w/ reflexes; Complete Time: 16:10 ec2 03/02 14:46 Order name: CT Abd/Pelvis - IV Contrast Only; Complete Time: 17:57 ec2 03/02 14:46 Order name: IV Saline Lock; Complete Time: 15:29 ec2 03/02 14:46 Order name: Labs collected and sent; Complete Time: 15:29 ec2 Administered Medications: 16:28 Drug: NS 0.9% IV 1000 ml IV at 1 bolus Per protocol; 1000 mL bolus Route: IV; Rate: 1 kc6 bolus; Site: right antecubital; 17:54 Follow up: Response: No adverse reaction; IV Status: Completed infusion; IV Intake: kc6 1000ml 16:28 Drug: TORadol - Ketorolac IVP 15 mg IVP once Route: IVP; Site: right antecubital; kc6 17:06 Follow up: Response: No adverse reaction kc6 16:28 Drug: Ondansetron IVP 4 mg IVP once; over 2 minutes Route: IVP; Site: right antecubital;kc6 17:06 Follow up: Response: No adverse reaction; Nausea unchanged; Vomiting unchanged kc6 16:28 Drug: morphine IVP or IV 4 mg IVP once over 4 mins Route: IVP; Infused Over: 4 mins; kc6 Site: right antecubital; 17:06 Follow up: Response: No adverse reaction; Pain is decreased kc6 17:11 Drug: metoCLOPramide IVP 10 mg IVP once; over 1 to 2 minutes Route: IVP; Site: right kc6 antecubital; 17:54 Follow up: Response: No adverse reaction; Nausea unchanged; Vomiting unchanged kc6 18:34 Drug: Ativan IVP 1 mg IVP once Route: IVP; Site: right antecubital; kc6 19:05 Follow up: Response: No adverse reaction; Anxiety decreased; Nausea is decreased; kc6 Vomiting decreased Disposition Summary: 03/02/23 18:03 Discharge Ordered Condition: Stable ec2 Diagnosis - Gastroparesis ec2 Followup: ec2 - With: Private Physician - When: - Reason: Recheck today's complaints Discharge Instructions: - Discharge Summary Sheet ec2 - Gastroparesis ec2 Forms: - Medication Reconciliation Form ec2 - Thank You Letter ec2 - Antibiotic Education ec2 - Prescription Opioid Use ec2 - Patient Portal Instructions ec2 - Leadership Thank You Letter ec2 Signatures: Dispatcher [employer] Otilia Walls RN RN ld1 Shereen Lopez RN RN kc6 Alcides Solomon MD MD ec2
--- NOTE | 2023-03-02 18:04 | ER ---
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 C/O N/V and pain. Coronavirus screen: At this time, the client does not indicate any symptoms associated with coronavirus-19. Ebola Screen: No symptoms or risks identified at this time. Initial Sepsis Screen: Does the patient meet any 2 criteria? No. Patient's initial sepsis screen is negative. Does the patient have a suspected source of infection? No. Patient's initial sepsis screen is negative. Risk Assessment: Do you want to hurt yourself or someone else? Patient reports no desire to harm self or others. Onset of symptoms was March 02, 2023. 14:34 Method Of Arrival: Ambulatory ld1 14:34 Acuity: BELINDA 3 ld1 Triage Assessment: 14:36 General: Appears in no apparent distress. uncomfortable, Behavior is calm, cooperative, ld1 appropriate for age. Pain: Complains of pain in abdomen Pain does not radiate. Pain currently is 10 out of 10 on a pain scale. Quality of pain is described as throbbing. EENT: No signs and/or symptoms were reported regarding the EENT system. Neuro: Level of Consciousness is awake, alert, obeys commands, Oriented to person, place, time, situation. Cardiovascular: Capillary refill < 3 seconds Patient's skin is warm and dry. Respiratory: Airway is patent Respiratory effort is even, unlabored. GI: Abdomen is round non-distended, Reports lower abdominal pain, upper abdominal pain, nausea, vomiting. : No signs and/or symptoms were reported regarding the genitourinary system. Derm: No signs and/or symptoms reported regarding the dermatologic system. Musculoskeletal: No signs and/or symptoms reported regarding the musculoskeletal system. Historical: - Allergies: 14:36 Haldol; ld1 14:36 Scopolamine HBr; ld1 - PMHx: 14:36 Gastroparesis; Irritable bowel syndrome; PTSD; ld1 - PSHx: 14:36 bilateral ureter attachment; Cholecystectomy; leep procedure; Lumpectomy of breast; ld1 right breast; - Immunization history:: Adult Immunizations up to date. - Social history:: Smoking status: Patient denies any tobacco usage or history of. Patient/guardian denies using alcohol. Screenin:[facility] ED Fall Risk Assessment (Adult) History of falling in the last 3 months, kc6 including since admission No falls in past 3 months (0 pts) Confusion or Disorientation No (0 pts) Intoxicated or Sedated No (0 pts) Impaired Gait No (0 pts) Mobility Assist Device Used No (0 pt) Altered Elimination No (0 pt) Score/Fall Risk Level 0 - 2 = Low Risk. Abuse screen: Denies threats or abuse. Denies injuries from another. Nutritional screening: No deficits noted. Tuberculosis screening: No symptoms or risk factors identified. Assessment: 17:18 General: Appears in no apparent distress. uncomfortable, well groomed, well developed, kc6 Behavior is calm, cooperative, appropriate for age. Pain: Complains of pain in abdomen. Neuro: Level of Consciousness is awake, alert, obeys commands, Oriented to person, place, time, situation, Appropriate for age. Cardiovascular: Capillary refill < 3 seconds. Respiratory: Airway is patent Trachea midline Respiratory effort is even, unlabored, Respiratory pattern is regular, symmetrical. GI: Abdomen is flat, non-distended, Pt is actively vomiting bile, Bowel sounds present X 4 quads. Abd is soft X 4 quads Patient currently denies diarrhea. : No signs and/or symptoms were reported regarding the genitourinary system. EENT: No signs and/or symptoms were reported regarding the EENT system. Derm: No signs and/or symptoms reported regarding the dermatologic system. Skin is intact, is healthy with good turgor, Skin is diaphoretic, Skin is normal, Skin temperature is warm. Musculoskeletal: No signs and/or symptoms reported regarding the musculoskeletal system. Circulation, motion, and sensation intact. Capillary refill < 3 seconds, Range of motion: intact in all extremities. 17:54 Reassessment: Patient appears in no apparent distress at this time. No changes from kc6 previously documented assessment. Patient and/or family updated on plan of care and expected duration. Pain level reassessed. Patient is alert, oriented x 3, equal unlabored respirations, skin warm/dry/pink. 19:05 Reassessment: Patient appears in no apparent distress at this time. No changes from kc6 previously documented assessment. Patient and/or family updated on plan of care and expected duration. Pain level reassessed. Patient is alert, oriented x 3, equal unlabored respirations, skin warm/dry/pink. Vital Signs: 14:34 Pulse 137; Resp 18; Temp 97.6(TE); Pulse Ox 100% on R/A; Weight 68.04 kg; Height 5 ft. ld1 2 in. ; Pain 9/10; 14:37 BP 151 / 100; ld1 17:04 BP 130 / 107; Pulse 112; ec2 17:19 BP 143 / 95; Pulse 109; Resp 16 S; Pulse Ox 96% on R/A; kc6 17:58 Pulse 101; ec2 14:34 Body Mass Index 27.44 (68.04 kg, 157.48 cm) ld1 14:34 Pain Scale: Adult ld1 ED Course: 14:22 Patient arrived in ED. mr 14:22 Clarence Cooper DO is Private Physician. mr 14:22 Alcides Solomon MD is Attending Physician. ec2 14:36 Triage completed. ld1 14:36 Arm band placed on right wrist. ld1 15:29 CBC with Diff Sent. ld1 15:29 CMP Sent. ld1 15:29 Lipase Sent. ld1 15:29 Test, Urine Sent. ld1 15:29 Urinalysis w/ reflexes Sent. ld1 15:30 Inserted saline lock: 20 gauge in right antecubital area, using aseptic technique. ld1 Blood collected. 16:12 Shereen Lopez, RN is Primary Nurse. kc6 17:17 Patient has correct armband on for positive identification. Bed in low position. Call kc6 light in reach. Side rails up X2. Adult w/ patient. Client placed on continuous cardiac and pulse oximetry monitoring. NIBP monitoring applied. patient monitor on. 17:17 Patient maintains SpO2 saturation greater than 95% on room air. kc6 17:19 CT Abd/Pelvis - IV Contrast Only In Process Unspecified. EDMS 19:06 No provider procedures requiring assistance completed. IV discontinued, intact, kc6 bleeding controlled, No redness/swelling at site. Pressure dressing applied. Administered Medications: 16:28 Drug: NS 0.9% IV 1000 ml IV at 1 bolus Per protocol; 1000 mL bolus Route: IV; Rate: 1 kc6 bolus; Site: right antecubital; 17:54 Follow up: Response: No adverse reaction; IV Status: Completed infusion; IV Intake: kc6 1000ml 16:28 Drug: TORadol - Ketorolac IVP 15 mg IVP once Route: IVP; Site: right antecubital; kc6 17:06 Follow up: Response: No adverse reaction kc6 16:28 Drug: Ondansetron IVP 4 mg IVP once; over 2 minutes Route: IVP; Site: right antecubital;kc6 17:06 Follow up: Response: No adverse reaction; Nausea unchanged; Vomiting unchanged kc6 16:28 Drug: morphine IVP or IV 4 mg IVP once over 4 mins Route: IVP; Infused Over: 4 mins; kc6 Site: right antecubital; 17:06 Follow up: Response: No adverse reaction; Pain is decreased kc6 17:11 Drug: metoCLOPramide IVP 10 mg IVP once; over 1 to 2 minutes Route: IVP; Site: right kc6 antecubital; 17:54 Follow up: Response: No adverse reaction; Nausea unchanged; Vomiting unchanged kc6 18:34 Drug: Ativan IVP 1 mg IVP once Route: IVP; Site: right antecubital; kc6 19:05 Follow up: Response: No adverse reaction; Anxiety decreased; Nausea is decreased; kc6 Vomiting decreased Medication: 19:06 VIS not applicable for this client. kc6 Intake: 17:54 IV: 1000ml; Total: 1000ml. kc6 Outcome: 18:03 Discharge ordered by . ec2 19:06 Discharged to home via wheelchair, with significant other, kc6 19:06 Condition: good 19:06 Discharge instructions given to patient, Instructed on discharge instructions, follow up and referral plans. Demonstrated understanding of instructions, follow-up care, 19:06 Patient left the ED. kc6 Signatures: Dispatcher [employer] Kira Haynes, Reg Reg mr NjOtilia horn, RN RN [id number] Shereen Lopez RN RN kc6 Alcides Solomon MD MD ec2
[2023-03-02 23:36] VITALS: BP 143/95; TEMP 97.6; O2SAT 96
== END ==
LOC: ER 14:20
DX: K31.84 Gastroparesis (principal); Z88.5 Allergy status to narcotic agent; Z88.8 Allergy status to other drugs, medicaments and biological substances
CPT/HCPCS: 96361; 85025; 81001; 36415; 81025; 83690; 80053; 74177; 96375; 96374; 99285; Q9967; J2765; J2405; J7030

== ENCOUNTER → 2023-03-03 | Emergency (ER) | payer BC ==
[~2023-03-03] MED LIST changes: +DICYCLOMINE HCL 20 MG/2 ML AMP IM ONE; +FAMOTIDINE 20 MG/2 ML VIAL IV ONE; -KETOROLAC 30 MG/ML INJ ONE; -ONDANSETRON 4 MG/2 ML VIAL ONE; +PANTOPRAZOLE 40 MG INJ ONE; +PROMETHAZINE INJ 25 MG/ML AMP ONE
--- OUTSIDE RECORDS SUMMARY | 2023-03-03 01:06 | XMS REPORT | Continuity of Care Document ---
Author Name Unknown Address [address] [facility] [address] [place] [address] [facility] thconnect Address [address] [facility] 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 Primary Care Physician [phone] CAIT BRAGG Attending Clinician Unavailable GIOVANY HAGER Attending Clinician Unavailable LAB90 Attending Clinician Unavailable Marylou Johnson NP Attending Clinician [phone] Ted Schultz Attending Clinician Unavailable Kaelyn Peguero Attending Clinician Unavailable Physician, No Primary or Family Admitting Clinic monse Unavailable Payers Payer Name Policy Type Policy Number Effective Date Expirati on Date Source [place]/PLUS [id number] 2022 00:00:00 BCBS 2 [id number] 2023 00:00:00 Problems Condition Name Condition Details [...] Depression Depression Disease Active 2022-02 00:00: 00 Lauar Seybold - Externa l Insomnia Insomnia Disease [...] See comments 2022-02 00:00: 00 Dystonic reactions [facility] Scopolam ine Propensi ty to adverse reaction s Active Other - See comments 2022-02 00:00: 00 Visual changes [facility] HALOPERI DOL DRUG INGREDI Active Med Other-Cmnt 2022-02 00:00: 00 [facility] SCOPOLAM INE DRUG INGREDI Active Other-Cmnt 2022-02 00:00: 00 [facility] haloperi dol DA Active SV HIVES 0 5- 00:00: 00 [facility] scopolam ine DA Active SV HIVES 0 5- 00:00: 00 [facility] No Known Allergie s DA Active U 0 1- 00:00: 00 [facility] No Known Allergie s DA Active U 0 06-24 00:00: 00 [facility] No Known Allergie s DA Active U 0 16 00:00: 00 [facility] scopolam ine DA Active [place] 2020-0 4-10 00:00: 00 [facility] scopol[place] ine DA Active [place] RASH-HIVES 0 4-10 00:00: 00 [facility] No Known Allergie s DA Active U 0 20 00:00: 00 [facility] No Known Allergie s DA Active U 0 620 00:00: 00 [facility] No Known Drug Intolera nces DA Active U 0 15 00:00: 00 [facility] No Known Drug Intolera nces DA Active U NONE 0 -15 00:00: 00 [facility] NO KNOWN ALLERGIE S Drug Class Active [facility] Social History Social Habit Start [...] Date Source Tobacco smoking consumption unknown [facility] Ex-smoker 2023-01-27 00:00:00 2023-01-27 00:00:00 Laura Perdomo External Medications Ordered Medication Name Filled Medication Name Start Date Stop Date Current Medication? Ordering Clinician Indication Dosage Frequency Signature (SIG) Comments Components Source Brexpiprazo le (Rexulti) 2 MG oral Tablet 02-24 11:47: 34 Yes 2mg Take 2 mg by mouth daily. Laura hall HYDROcodone -Acetaminop hen 10-325 MG oral Tablet 02-24 00:00: 00 Yes [id number] 1{tbl} Q.5D Take 1 tablet by mouth 2 times daily as needed for pain. Laura hall Methocarbam ol 500 MG oral Tablet 02-24 00:00: 00 Yes [id number] 500mg QD Take 1 tablet (500 mg total) by mouth nightly as needed (muscle spasm). Laura hall Methocarbam ol 500 MG oral Tablet 1-09 00:00: 00 02-24 00:00 :00 No Laura hall Celecoxib 200 MG oral Capsule -09 00:00: 00 02-24 00:00 :00 No TAKE ONE (1) CAPSULE(S) BY MOUTH ONCE A DAY WITH FOOD. Laura hall Promethazin e HCl (PHENERGAN) 25 MG oral Tablet 1-04 00:00: 00 Yes [id number] 25mg QD Take 1 tablet (25 mg total) by mouth daily as needed for nausea. Laura hall Valacyclovi r HCl (Valtrex) 500 MG oral Tablet 2022-02 00:00: 00 Yes [id number] 500mg Take 1 tablet (500 mg total) by mouth daily. Laura hall Brexpiprazo le (Rexulti) 2 MG oral Tablet 2022-02 14:15: 48 Yes 2mg Take 2 mg by mouth daily. Laura hall predniSONE (DELTASONE) 20 MG [...] dose, On Thu12/26/22 at 2030, 1 mL [facility] penicillin g benzathine (BICILLIN L-A) injection 1.2 Million Units 2022-02 01:45: 00 12-27 01:53 :00 No 1.210 1.2 Million Units, Intramuscu lar, ONCE, 1 dose, On Thu12/26/22 at 1945, RONNIE
Re ason for Anti-Infec tive: Empiric Therapy for Suspected Infection< br>Empiric Therapy Site: HEENT
D uration of therapy: Once (ED) [facility] acetaminoph en (TYLENOL) tablet 650 mg 2022-02 01:45: 00 12-27 01:50 :00 No 650mg 650 mg, Oral, ONCE, 1 dose, On Thu12/26/22 at 1945, RONNIE [facility] ketorolac (TORADOL) injection 30 mg 2022-02 00:45: 00 12-27 00:59 :00 No 30mg 30 mg, Intramuscu lar, ONCE, 1 dose, On Thu12/26/22 at 1845, RONNIE [facility] hydrocortis one 1 mg/4 mL in nystatin suspension- diphenhydrA MINE solution suspension 2022-02 00:00: 00 12-30 05:59 :00 Yes [id number] 15mL Take 15 mL by mouth every 6 (six) hours as needed for Pain (scale 4-6) for up to 3 days. [facility] Famotidine (PEPCID) 20 MG oral [...] for anxiety (PTSD, [address]). Laura Remya rafael Alprazolam (Xanax) 0.5 MG oral [...] Systolic blood pressure 2022-12-27 02:16:00 111 mm[Hg] [facility] Diastolic blood pressure 2022-12-27 02:16:00 82 mm[Hg] [facility] Heart rate 2022-12-27 02:16:00 93 /min [facility] Body temperature 2022-12-27 02:16:00 37.56 Caitlyn [facility] Respiratory rate 2022-12-27 02:16:00 20 /min [facility] Oxygen saturation in Arterial blood by Pulse oximetry 2022-12-27 02:16:00 96 /min [place] [facility] Body height 2022-12-26 23:57:00 157.5 cm [facility] Body weight 2022-12-26 23:57:00 58.968 kg [facility] BMI 2022-12-26 23:57:00 23.78 kg/m2 [facility] Procedures Procedure Date / Time Performed Performing Clinicia n Source CBC WITH DIFF 2022-12-27 01:49:00 Marylou Johnson [facility] RAPID STREP SCREEN FOR GROUP A 2022-12-27 00:59:00 Marylou Johsnon [facility] NOTICE OF PRIVACY PRACTICES 2022-12-26 23:28:27 Doctor Unassigned, [place] [facility] CONSENT/REFUSAL FOR DIAGNOSIS AND TREATMENT 2022-12-26 23:27:35 Doctor Unassigned, [place] [facility] Encounters Start Date/Time End Date/Time Encounter Type Admission Type Attending [facility] Care Facility Care Department Encounter ID Source 2020-06-24 15:53:22 Inpatient HCARG [facility] [id number] [facility] 2020-05-19 11:42:02 Inpatient HCARG [facility] [id number] [facility] 2019-07-30 21:08:00 Inpatient [facility] ER [id number] 63 [facility] 2023-05-04 11:00:00 2023-05-04 11:00:00 Outpatient CAIT BRAGG [facility] [id number] [facility] 2023-03-25 14:00:00 2023-03-25 14:00:00 Outpatient GIOVANY HAGER [id number] [facility] 2023-03-02 00:00:00 2023-03-02 00:00:00 Outpatient GIOVANY HAGER [id number] [facility] 2023-03-02 00:00:00 2023-03-02 00:00:00 Outpatient GIOVANY HAGER [id number] [facility] 2023-03-02 00:00:00 2023-03-02 00:00:00 Outpatient PREZAS, GIOVANY PIZANO [id number] Laura [facility] 2023-03-02 00:00:00 2023-03-02 00:00:00 Outpatient PREZAS, GIOVANY PIZANO [id number] [facility] 2023-02-27 00:00:00 2023-02-27 00:00:00 Outpatient PREZAS, GIOVANY PIZANO [id number] [facility] 2023-02-25 00:00:00 2023-02-25 00:00:00 Outpatient PREZAS, GIOVANY PIZANO LA[facility] [id number] [facility] 2023-02-24 11:30:00 2023-02-24 11:30:00 Outpatient PREZAS, GIOVANY PIZANO [facility] [id number] [facility] 00:00:00 2023-02-18 00:00:00 Outpatient PREZAS, GIOVANY PIZANO LAURA [id number] [facility] 2023-02-12 00:00:00 2023-02-12 00:00:00 Outpatient PREZAS, GIOVANY PIZANO LAURA [id number] [facility] 2023-02-12 00:00:00 2023-02-12 00:00:00 Outpatient PREZAS, GIOVANY PIZANO LAURA [id number] [facility] 2023-02-11 00:00:00 2023-02-11 00:00:00 Outpatient PREZAS, GIOVANY PIZANO LAURA [id number] [facility] 2023-01-28 00:00:00 2023-01-28 00:00:00 Outpatient PREZAS, GIOVANY PIZANO LAURA [id number] [facility] 2023-01-28 00:00:00 2023-01-28 00:00:00 Outpatient PREZAS, GIOVANY PIZANO LAURA [id number] Laura Seybold 2023-01-27 13:00:00 2023-01-27 13:00:00 Outpatient LAB90 LAURA PIZANO [id number] Laura Seybold 2023-01-27 10:45:00 2023-01-27 10:45:00 Outpatient GIOVANY HAGER [id number] Laura Enrique 2023-01-27 00:00:00 2023-01-27 00:00:00 Outpatient GIOAVNY HAGER [id number] Laura Enrique 2022-12-26 17:57:00 2022-12-26 20:20:00 Emergency Marylou Johnson [facility] [id number] [facility] 2022-12-26 17:57:00 2022-12-26 20:20:00 Emergency X MARYLOU JOHNSON [facility] ERT [id number] [facility] 2022-06-11 11:10:00 2022-06-11 12:41:00 Emergency EM Ted Schultz [facility] ER [id number] 63 [facility] 2021-02-09 23:10:00 2021-02-10 00:19:00 Emergency EM Kaelyn Peguero [facility] ER [id number] 49 [facility] Results Test Description Test Time Test Comments Results Result Co mments Source Indication for culture: Suprapubic PainURINE SOURCE: CLEAN CATCH URINEUR HCG [id number] 11:54:00* Test Item Value Reference Range Interpretation Comme nts UR HCG QUAL (test code = HCGQLU) NEGATIVE NEGATIVE Indication for culture: Suprapubic PainURINE SOURCE: CLEAN CATCH URINE COMPREHENSIVE METABOLIC [id number] 11:49:00* Test Item Value Reference Range Interpretation [...] code = ALKP) 105 U/L 45-117 N [id number] 11:49:00* Test Item Value Reference Range Interpretation Comme nts AMYLASE (test code = PARAM) 73 IU/L 25-115 N [id number] 11:49:00* Test Item Value Reference Range Interpretation Comme nts LIPASE (test code = LIP) 134 U/L 73-393 N CBC W/AUTO [id number] 11:33:00* Test Item Value Reference Range Interpretation [...] code = RBCM) NO NORMAL COMPREHENSIVE METABOLIC [id number] 16:11:00* Test Item Value Reference Range Interpretation [...] > or = 60 ml/min/1.73M2IF PATIENT IS -BOLIVIAN, MULTIPLY REPORTED RESULT BY1.21. [Automated message] The [...] code = ALKP) 139 U/L 45-117 H [id number] 16:11:00* Test Item Value Reference Range Interpretation Comme nts LIPASE (test code = LIP) 108 U/L 73-393 N URINALYSIS W REFLEX [id number] 16:05:00* Test Item Value Reference Range Interpretation [...] UAMICRO) Y= DO UA MICRO UR HCG [id number] 16:05:00* Test Item Value Reference Range Interpretation Comme nts UR HCG QUAL (test code = HCGQLU) NEGATIVE NEGATIVE URINALYSIS W REFLEX [id number] 16:05:00* Test Item Value Reference Range Interpretation [...] = UAMICRO) Y= DO UA MICRO UA [id number] 16:05:00* Test Item Value Reference Range Interpretation Comme nts UA WBC (test code = WBCU) 0-2 #/hpf 0-5 UA RBC (test code = RBCU) 0-2 #/hpf 0-5 UA EPITHELIAL CELLS (test co de = EPIU) 2+ /hpf NEG,FEW A UA BACTERIA (test code = BACU) FEW /hpf NEGATIVE A UA AMORPHOUS SEDIMENT (test code = AMORU) FEW /hpf NEG,FEW UR HCG [id number] 16:05:00* Test Item Value Reference Range Interpretation Comme nts UR HCG QUAL (test code = HCGQLU) NEGATIVE NEGATIVE URINALYSIS W REFLEX [id number] 16:05:00* Test Item Value Reference Range Interpretation [...] UAMICRO) Y= DO UA MICRO UR HCG [id number] 16:05:00* Test Item Value Reference Range Interpretation Comme nts UR HCG QUAL (test code = HCGQLU) NEGATIVE NEGATIVE DRUGS OF ABUSE [id number] 16:01:00* Test Item Value Reference Range Interpretation Comme nts UR COCAINE (test code = COCAU) NEGATIVE ng/ml NEGATIVE UR CANNABINOIDS (test code = CANU) POSITIVE ng/ml NEGATIVE A VALUE EXCEEDS CRITICAL LEVEL. CRITICAL VALUE CALLEDTO AND CRITICAL VALUE READ BACK BY HUBER DOWNING RN 0035 06/24/20. Chas Dixon POSITIVE URINE DRUG SCREEN [...] 300 NG/MLPHENCYCLIDINE 25 NG/ML URINALYSIS W REFLEX [id number] 15:58:00* Test Item Value Reference Range Interpretation [...] NEEDED? (test code = UAMICRO) UR HCG [id number] 15:58:00* Test Item Value Reference Range Interpretation Comme nts UR HCG QUAL (test code = HCGQLU) NEGATIVE NEGATIVE CBC W/AUTO [id number] 15:52:00* Test Item Value Reference Range Interpretation [...] = RBCM) NO NORMAL URINALYSIS W REFLEX [id number] 13:00:00* Test Item Value Reference Range Interpretation [...] Y= DO UA MICRO UA ICTOTEST FOR [id number] 13:00:00* Test Item Value Reference Range Interpretation Comme nts UA ICTOTEST FOR BILIRUBIN (t est code = ICTOU) POSITIVE NEGATIVE A UA [id number] 13:00:00* Test Item Value Reference Range Interpretation Comme nts UA WBC (test code = WBCU) 0-2 #/hpf 0-5 UA RBC (test code = RBCU) 3-5 #/hpf 0-5 UA EPITHELIAL CELLS (test co de = EPIU) FEW /hpf NEG,FEW UA BACTERIA (test code = BACU) FEW /hpf NEGATIVE A UA MUCUS (test code = MUCU) 1+ /hpf NEG,FEW A UR HCG [id number] 13:00:00* Test Item Value Reference Range Interpretation Comme nts UR HCG QUAL (test code = HCGQLU) NEGATIVE NEGATIVE DRUGS OF ABUSE [id number] 12:57:00* Test Item Value Reference Range Interpretation [...] 300 NG/MLPHENCYCLIDINE 25 NG/ML URINALYSIS W REFLEX [id number] 12:56:00* Test Item Value Reference Range Interpretation [...] Y= DO UA MICRO UA ICTOTEST FOR [id number] 12:56:00* Test Item Value Reference Range Interpretation Comme nts UA ICTOTEST FOR BILIRUBIN (t est code = ICTOU) POSITIVE NEGATIVE A UR HCG [id number] 12:56:00* Test Item Value Reference Range Interpretation Comme nts UR HCG QUAL (test code = HCGQLU) NEGATIVE NEGATIVE URINALYSIS W REFLEX [id number] 12:53:00* Test Item Value Reference Range Interpretation [...] UAMICRO) Y= DO UA MICRO UR HCG [id number] 12:53:00* Test Item Value Reference Range Interpretation Comme nts UR HCG QUAL (test code = HCGQLU) NEGATIVE NEGATIVE URINALYSIS W REFLEX [id number] 12:53:00* Test Item Value Reference Range Interpretation [...] UAMICRO) Y= DO UA MICRO UR HCG [id number] 12:53:00* Test Item Value Reference Range Interpretation Comme nts UR HCG QUAL (test code = HCGQLU) NEGATIVE NEGATIVE - XR ABDOMEN [id number] 12:16:00 [facility] BRE[facility]NA QUEEN : 1990 Sex: F FAX: Sawyer Centeno II [place]: St: PRE Name: BREANNA QUEEN Oj FSED : 1990 Age/S: 30/F [address] Unit #: [id number] Loc: [place] [address] Phys: Sawyer Centeno II, MD Acct: [id number] Dis Date: Status: PRE ER PHONE #: Exam Date: 05/19/2020 1212 FAX #: Reason: abdominal pain EXAMS: CPT CODE: [id number] XR ABDOMEN 2V 20219 - XR ABDOMEN 2V PROVIDED REASON FOR [...] Ayala RT (R) CT Trnscrd Date/Time/By: 05/19/2020 (1216) : By: [email or web address] Orig Print D/T: S: 05/19/2020 (8904) PAGE 1 Signed ReportBASIC METABOLIC PANEL 2020-05-19 12:08:00* Test Item Value Reference Range Interpretation [...] > or = 60 ml/min/1.73M2IF PATIENT IS -BOLIVIAN, MULTIPLY REPORTED RESULT BY1.21. [Automated message] The system which generated this result transmitted reference range: >=60. The reference range was not used to interpret this result as normal/abnormal. CREATININE (test code = CREAT) 0.64 mg/dl 0.55-1.02 N CALCIUM (test code = CA) 9.8 mg/dL 8.5-10.1 N LIVER [id number] 12:08:00* Test Item Value Reference Range Interpretation [...] code = ALKP) 119 U/L 45-117 H [id number] 12:08:00* Test Item Value Reference Range Interpretation Comme nts LIPASE (test code = LIP) 67 U/L 73-393 L CBC W/AUTO [id number] 11:43:00* Test Item Value Reference Range Interpretation [...] = RBCM) NO NORMAL URINALYSIS W REFLEX [id number] 22:06:00* Test Item Value Reference Range Interpretation [...] MUCU) 2+ /hpf NEG,FEW A BASIC METABOLIC [id number] 21:54:00* Test Item Value Reference Range Interpretation [...] > or = 60 ml/min/1.73M2IF PATIENT IS -BOLIVIAN, MULTIPLY REPORTED RESULT BY1.21. CREATININE (test code = CREAT) 0.70 mg/dL 0.51-0.95 N CALCIUM (test code = CA) 9.3 mg/dL 8.5-10.1 N LIVER [id number] 21:54:00* Test Item Value Reference Range Interpretation [...] code = ALKP) 69 U/L 50-136 N [id number] 21:54:00* Test Item Value Reference Range Interpretation Comme nts LIPASE (test code = LIP) 63 U/L 73-393 L BASIC METABOLIC [id number] 21:53:00* Test Item Value Reference Range Interpretation [...] > or = 60 ml/min/1.73M2IF PATIENT IS -BOLIVIAN, MULTIPLY REPORTED RESULT BY1.21. CREATININE (test code = CREAT) 0.70 mg/dL 0.51-0.95 N CALCIUM (test code = CA) 9.3 mg/dL 8.5-10.1 N LIVER [id number] 21:53:00* Test Item Value Reference Range Interpretation [...] ( test code = ALKP) U/L 50-136 [id number] 21:53:00* Test Item Value Reference Range Interpretation Comme nts LIPASE (test code = LIP) 63 U/L 73-393 L BASIC METABOLIC [id number] 21:52:00* Test Item Value Reference Range Interpretation [...] > or = 60 ml/min/1.73M2IF PATIENT IS -BOLIVIAN, MULTIPLY REPORTED RESULT BY1.21. CREATININE (test code = CREAT) 0.70 mg/dL 0.51-0.95 N CALCIUM (test code = CA) 9.3 mg/dL 8.5-10.1 N LIVER [id number] 21:52:00* Test Item Value Reference Range Interpretation [...] ( test code = ALKP) U/L 50-136 [id number] 21:52:00* Test Item Value Reference Range Interpretation Comme nts LIPASE (test code = LIP) 63 U/L 73-393 L BASIC METABOLIC [id number] 21:51:00* Test Item Value Reference Range Interpretation [...] > or = 60 ml/min/1.73M2IF PATIENT IS -BOLIVIAN, MULTIPLY REPORTED RESULT BY1.21. CREATININE (test code = CREAT) 0.70 mg/dL 0.51-0.95 N CALCIUM (test code = CA) 9.3 mg/dL 8.5-10.1 N LIVER [id number] 21:51:00* Test Item Value Reference Range Interpretation [...] ( test code = ALKP) U/L 50-136 [id number] 21:51:00* Test Item Value Reference Range Interpretation Comme nts LIPASE (test code = LIP) 63 U/L 73-393 L BASIC METABOLIC [id number] 21:49:00* Test Item Value Reference Range Interpretation [...] = CA) 9.3 mg/dL 8.5-10.1 N LIVER [id number] 21:49:00* Test Item Value Reference Range Interpretation [...] ( test code = ALKP) U/L 50-136 [id number] 21:49:00* Test Item Value Reference Range Interpretation Comme nts LIPASE (test code = LIP) 63 U/L 73-393 L BASIC METABOLIC [id number] 21:48:00* Test Item Value Reference Range Interpretation [...] = CA) 9.3 mg/dL 8.5-10.1 N LIVER [id number] 21:48:00* Test Item Value Reference Range Interpretation [...] ( test code = ALKP) U/L 50-136 [id number] 21:48:00* Test Item Value Reference Range Interpretation Comme nts LIPASE (test code = LIP) U/L 73-393 BASIC METABOLIC [id number] 21:46:00* Test Item Value Reference Range Interpretation [...] (test code = CA) mg/dL 8.5-10.1 LIVER [id number] 21:46:00* Test Item Value Reference Range Interpretation [...] ( test code = ALKP) U/L 50-136 [id number] 21:46:00* Test Item Value Reference Range Interpretation Comme nts LIPASE (test code = LIP) U/L 73-393 CBC W/AUTO [id number] 21:43:00* Test Item Value Reference Range Interpretation [...] Notes Date/Time Note Provider Source 2023-02-24 11:47:47 IVUkosKSC8wPnScMO5vXn8YRncHy5d5bB7FeIM/f jHA9B BWVmt+m4V8nvDr3MGVv3215-31-47A66:47:47Formatt ing of this note is different from the original.Chief ComplaintPatient presents withFollow-Up Visit1 month follow up visitPaRENEE WuN 22440-3Lfbxs ByebRL9009-88-84V66:48:14Nurse NoteTXT1.2.840.889105.1.13.131.2.7.2.786247|3 [id number] for patient hjrq70380-2Mjmbx NoteLNNARRATIVEFormatted C-CDA narrative textKELHolmes County Joel [facility]rene [facility]2727 [facility] [id number]- 16T11:48:141.2.840.849963.1.72.3.15|1.2.840.1 29090.1.13.131.2.7.2.727879_[id number] [facility] 2022-06-11 11:33:00 [id number]/k0vKRlsmbapYqZk4oD7A6zhei c+eVJ Z15ffxSvaT3+BXbIFrMzUOWORRAXCTp8783-62-92C21: 33:00 [facility]EMERGENCY PROVIDER REPORTREPORT#:[id number] REPORT STATUS: SignedDATE:06/11/22 TIME: 1133 PATIENT: BREANNA JIMENEZ UNIT #: [id number]#: [id number] ROOM/BED:AGE: 32 SEX: F PCP PHYS: Undefined [...] 1206 Pulse 77 05/03 1206 Resp 16 05/ 1206 O2 Delivery Room air 05/ 1113 Review of Vital Signs Reviewed Focused [...] % (Auto) (16 - 50 %) 22.9 [place] % (Auto) (0.0 - 13.0 %) 9.8 [...] pH (4.6 - 8.0) 7.0 Ur Specific [place] (1.001 - 1.035) 1.020 Urine Protein (NEGATIVE [...] yesterday. After discussion patient states was at [facility] yesterdayand was prescribed compazine/reglan after blood [...] X1ED STA 06/11 1141 DC 05/ IV 05/ 1240 1155 Sodium Chloride 1,000 ML X1ED STA 06/11 1118 DC 05/03 IV 05/ 1217 1123 Gastrointestinal Drugs Sig/Ayanna Start time Last Medication Dose Route Stop Time Status Admin Prochlorperazine 5 MG X1ED STA 06/11 1118 DC 05/03 Edisylate IV 06/11 1119 1124 Patient Discharge Departure Vital Signs/ConditionVital SignsFirst Documented: Result Date Time Pulse Ox 99 06/11 1113 B/P 156/96 05/ 1113 B/P Mean 116 / 1113 O2 Delivery Room air 06/11 1113 Pulse 70 / 1113 Resp 18 06/11 1113 Temp 36.3 / 1206 Last Documented: Result Date Time Pulse Ox 100 05/ 1206 B/P 124/78 05/ 1206 B/P Mean 93 / 1206 Temp 36.3 / 1206 Pulse 77 05/ 1206 Resp 16 / 1206 O2 Delivery Room air 06/11 1113 [...] or a call to 911. at 1245RPT #:[id number] OF REPORTEDEmergency department fodkfi2929-63-96E78:33:00H.XCDL40239881-4424V VAvailable for patient vadpZSKNDDWWXOHJFM5218-32-98M52:45:50 [facility] 2021-02-09 23:43:00 [id number]g+JM qb4HT MewREIr6R9Ve1G3jZz6fSqcYzUTyxQ63366-98-43M96: 43:00 [facility] ([facility]EMERGENCY PROVIDER REPORTREPORT#:[id number] REPORT STATUS: SignedDATE:02/09/21 TIME: 2343 PATIENT: BREANNA JIMENEZ UNIT #: [id number]#: [id number] ROOM/BED:AGE: 30 SEX: F PCP PHYS: No Primary or Family PhysicianSERVICE AUTHOR: Kaelyn Peguero MD * ALL edits or amendments must be made on the electronic/computer document * SNT-Xts-Nwel Illness GeneralConfirmed Patient YesPatient Type New patientInitial Greet Date/Time 02/09/21 2312 PresentationChief Complaint Body aches, Chills, Cough Free Text HPI NotesFree Text HPI [id number]-zhxl-[id number] female comes emergency room complaining of cough, body aches, chills, that began 2 days ago. Patient has been traveling in [place] and apparently although she has been driving [...] (2008). Additional Surgical Historybilateral ureter reattachment 1997 [facility] 2018 Botox injection to pylorusAlcohol Use Alcohol [...] Admin Methylprednisolone 125 MG X1ED STA 02/09 234 DC 02/09 Sodium Succinate IM 02/09 2347 [...] new symptoms or worsening symptoms. at 0652RPT #:[id number] OF REPORTEDEmergency department [id number]:43:00H.[id number] VAvailable for patient wuugFCNXHSKCJRUOMP5503-53-49T32:53:06 [facility] 15:35:00 [id number]+A8Aiqjceyh6mrlw n9MbG cw++6/2zyglJ4nxfVaj6+NnE7/QTaa8wi3H6b51625-54 -16T15:35:00 [facility]EMERGENCY PROVIDER REPORTREPORT#:[id number] REPORT STATUS: SignedDATE:06/24/20 TIME: 153 PATIENT: BREANNA JIMENEZ UNIT #: [id number]#: [id number] ROOM/BED:AGE: 30 SEX: F PCP PHYS: No Primary or Family PhysicianSERVICE AUTHOR: Maicol Coy MD * ALL edits or amendments must be made on the electronic/computer document * HPI-Abd Pain F Under 40 GeneralInitial Greet Date/Time 06/24/20 1529PCPDr. [facility] [place] PresentationChief Complaint Abdominal pain, Nausea, Vomiting moderateHx [...] Nothing Free Text HPI NotesFree Text HPI [id number] M2 LMP 19 May 2020 c/o acute on chronic gastroparesis related to IBS and/or THC use for past 2d with nonbloody N/V x 6. She is visiting from [place]. Risk-Abd Pain F Under 40)( Ectopic Risk [...] % (Auto) (16 - 50 %) 48.2 [place] % (Auto) (0.0 - 13.0 %) 13.0 [...] pH (4.6 - 8.0) 7.0 Ur Specific [place] (1.001 - 1.035) 1.020 Urine Protein (NEGATIVE [...] the plan [place] smoking cessation. at 2053RPT #:[id number] OF REPORTEDEmergency department [id number]:35:00H.[id number] VAvailable for patient xjyhSKMSOHUZUWJBIH2159-90-62W07:53:15 HCARG 2020-05-19 12:11:00 [id number] 3xkQV n7beRTHbbbK3xXekfKUv3wCSrMjZO8X1BAHF4x6566-59 -10T12:11:00 [facility])EMERGENCY PROVIDER REPORTREPORT#:[id number] REPORT STATUS: SignedDATE:05/19/20 TIME: 1211 PATIENT: BREANNA QUEEN UNIT #: [id number]#: [id number] ROOM/BED:AGE: 30 SEX: F PCP PHYS: Brayan Winn MDSERVICE AUTHOR: Sawyer Centeno II, MD * ALL edits or amendments must be made on the electronic/computer document * HPI-Abd Pain F Under 40 Free Text HPI NotesFree Text HPI NotesThe patient tells me she has a history of gastroparesis but is not a diabetic. She tells me that she is from [facility] and that she has GI specialist in [facility] whose name is Dr. Hendrix. She tells me she used to get Botox injections in her pilorus to treat her pain. She tells me she went to a local hospital yesterday and got several medications for pain but the pain did not getany better. GeneralConfirmed Patient YesInitial Greet Date/Time 05/19/20 1129[facility]PIn [facility] PresentationChief Complaint Abdominal painHx Obtained From PatientSudden [...] pH (4.6 - 8.0) 6.0 Ur Specific [place] (1.001 - 1.035) >= 1.030 Urine Protein [...] (Auto) (16 - 50 %) 9.[address] [place] % (Auto) (0.0 - 13.0 %) 4.3 [...] Entered: 05/19/2020 1219 IMPRESSION:No acute process. Location: [id number] By: Emily CABALLERO M.D. Imaging StatementRadiographic studies [...] HTN F/u with PCP/other doc at 1708RPT #:[id number] OF REPORTEDEmergency department tjijxo1230-48-16V11:11:00H.[id number] VAvailable for patient [id number]:08:49 HCARG 2019-07-30 21:12:00 [id number]+z44of/FcEkEtU j+eWE kPyGUl6aCMJgHTUqLEPZ3lsNmRx4kKAd596zF17107-86 -20T21:12:00 [facility] ([facility])EMERGENCY PROVIDER REPORTREPORT#:[id number] REPORT STATUS: SignedDATE:07/30/19 TIME: 2111 PATIENT: BREANNA JIMENEZ UNIT #: [id number]#: [id number] ROOM/BED:AGE: 29 SEX: F PCP PHYS: No [...] (Auto) (16.0 - 50.0 %) 15.[address] [place] % (Auto) (0.0 - 13.0 %) 5.2 [...] pH (4.6 - 8.0) 6.0 Ur Specific [place] (1.001 - 1.035) 1.017 Urine Protein (NEGATIVE [...] of Care TestingUrinalysis Interpretation Urinalysis NL Re-Evaluation [facility] )( Re-Evaluation/Progress #1Time of Re-Eval 2229)( [...] 2333 DC 07/29 Tromethamine IV 07/29 2333 233 [...] STA 07/29 2113 DC 07/29 IV 07/29 2114 213 Ondansetron HCl 4 MG X1ED STA 07/29 [...] or a call to 911. at 0000RPT #:[id number] OF REPORTEDEmergency department jjohvx6673-78-13N95:12:00H.[id number] VAvailable for patient gzhqIIQNLREKPYVYIH5139-43-05R31:00:25 HCARG 2019-07-30 21:12:00 [id number] Mili+2 HSN7hPcyNkF2PF7raKLQKYYWMoBvgr9yGq33mD8690-29 -20T21:12:00 [facility] ([facility])EMERGENCY PROVIDER REPORTREPORT#:[id number] REPORT STATUS: SignedDATE:07/30/19 TIME: 2111 PATIENT: BREANNA JIMENEZ UNIT #: [id number]#: [id number] ROOM/BED:AGE: 29 SEX: F PCP PHYS: No [...] PANTOPRAZOLE DR (PROTONIX) 20 MG PO DAILY [ASHKNA] Review of Nursing Notes Rev avail, and [...] (Auto) (16.0 - 50.0 %) 15.[address] [place] % (Auto) (0.0 - 13.0 %) 5.2 [...] pH (4.6 - 8.0) 6.0 Ur Specific [place] (1.001 - 1.035) 1.017 Urine Protein (NEGATIVE [...] call to 911. at 0000 at 0024RPT #:[id number] OF [facility]TTex[facility] department [id number]:12:00H.[id number] VAvailable for patient [id number]:24:32 HCARG"
[2023-03-03 01:47] LABS: Potassium 3.8 mEq/L (3.5-5.1)
--- NOTE | 2023-03-03 02:48 | ER ---
Nurse's Notes [facility] Name: Efrem Pastor Age: 32 yrs Sex: Female : 1990 Arrival Date: 03/03/2023 Time: 01: Bed 6 Private MD: Diagnosis: Vomiting, unspecified;Gastroparesis, intractable nausea and vomiting Presentation: 03/03 01:04 Chief complaint: Patient states: upper abdominal pain of 9 with nausea and pf1 vomiting,onset yesterday. Patient stated was seen here on Thursday for the same symptoms. 01:04 Coronavirus screen: Vaccine status: Patient reports receiving the 2nd dose of the covid pf1 vaccine. Client denies travel out of the [place] in the last 14 days. At this time, the client does not indicate any symptoms associated with coronavirus-19. Ebola Screen: Patient negative for fever greater than or equal to 101.5 degrees Fahrenheit, and additional compatible Ebola Virus Disease symptoms. Initial Sepsis Screen: Does the patient meet any 2 criteria? HR > 90 bpm. No. Patient's initial sepsis screen is negative. Does the patient have a suspected source of infection? No. Patient's initial sepsis screen is negative. Risk Assessment: Do you want to hurt yourself or someone else? Patient reports no desire to harm self or others. 01:04 Method Of Arrival: Ambulatory pf1 01:04 Acuity: BELINDA 3 pf1 Historical: - Allergies: 01:20 Haldol; pf1 01:20 Scopolamine HBr; pf1 - Home Meds: 01:21 Protonix Oral [Active]; [place] Oral [Active]; Phenergan Oral [Active]; pf1 - PMHx: 01:20 Gastroparesis; Irritable bowel syndrome; PTSD; pf1 - PSHx: 01:20 bilateral ureter attachment; Cholecystectomy; leep procedure; Lumpectomy of breast; pf1 right breast; - Immunization history:: Adult Immunizations up to date, Client reports receiving the 2nd dose of the Covid vaccine, Pfizer Last tetanus immunization: > 10 years ago Flu vaccine is up to date. - Social history:: Smoking status: Reported history of juuling and/or vaping. Patient/guardian denies using alcohol, street drugs. - Family history:: not pertinent. Screenin:20 [facility] ED Fall Risk Assessment (Adult) History of falling in the last 3 months, jj7 including since admission No falls in past 3 months (0 pts) Confusion or Disorientation No (0 pts) Intoxicated or Sedated No (0 pts) Impaired Gait No (0 pts) Mobility Assist Device Used No (0 pt) Altered Elimination No (0 pt) Score/Fall Risk Level 0 - 2 = Low Risk Oriented to surroundings, Maintained a safe environment, Educated pt \T\ family on fall prevention, incl call for assistance when getting out of bed. Abuse screen: Denies threats or abuse. Nutritional screening: No deficits noted. Tuberculosis screening: No symptoms or risk factors identified. Assessment: 01:20 General: Appears in no apparent distress. uncomfortable, Behavior is calm, cooperative, jj7 appropriate for age. Pain: Complains of pain in epigastric area. GI: Abdomen is flat, non-distended, Pt is actively vomiting undigested food, Abd is soft and non tender X 4 quads. Reports upper abdominal pain, epigastric pain, nausea, vomiting. GI: Bowel sounds present X 4 quads. Vital Signs: 01:04 BP 148 / 105; Pulse 107; Resp 20; Temp 98.6; Pulse Ox 97% on R/A; Weight 68.04 kg; pf1 Height 5 ft. 2 in. ; Pain 9/10; 02:15 BP 118 / 76; Pulse 120; Resp 16; Pulse Ox 95% ; jj7 02:59 BP 108 / 68; Pulse 106; Resp 15; Pulse Ox 96% ; jj7 01:04 Body Mass Index 27.44 (68.04 kg, 157.48 cm) pf1 01:04 Pain Scale: Adult pf1 ED Course: 01:03 Patient arrived in ED. jj6 01:05 Mario Santo MD is Attending Physician. sp4 01:20 Triage completed. pf1 01:20 Patient has correct armband on for positive identification. Bed in low position. Call jj7 light in reach. Side rails up X 1. Adult w/ patient. Warm blanket given. 01:20 Arm band placed on right wrist. jj7 01:20 Inserted saline lock: 20 gauge in right antecubital area, using aseptic technique. jj7 Blood collected. 01:35 IV discontinued, intact, bleeding controlled, No redness/swelling at site. Pressure pf1 dressing applied, from RAC 20 gauge. 01:40 No provider procedures requiring assistance completed. Inserted saline lock: 22 gauge pf1 in left antecubital area, using aseptic technique. Administered Medications: 01:40 Drug: Pantoprazole IVP 40 mg IVP once Route: IVP; Site: left antecubital; pf1 03:02 Follow up: Response: Marked relief of symptoms jj7 01:40 Drug: NS 0.9% IV 1000 ml IV at 1 bolus Per protocol; 1000 mL bolus Route: IV; Rate: 1 pf1 bolus; Site: left antecubital; 02:47 Follow up: IV Status: Completed infusion jj7 01:42 Drug: metoCLOPramide IVP 10 mg IVP once; over 1 to 2 minutes Route: IVP; Site: left pf1 antecubital; 03:01 Follow up: Response: Marked relief of symptoms jj7 01:43 Drug: Ativan IVP 2 mg IVP once Route: IVP; Site: left antecubital; pf1 03:01 Follow up: Response: Marked relief of symptoms jj7 01:43 Drug: Famotidine IVP 20 mg IVP once; dilute with 10 mL 0.9% NaCl; give over 2 minutes pf1 Route: IVP; Site: left antecubital; 03:01 Follow up: Response: Marked relief of symptoms jj7 01:50 Drug: Promethazine IM 25 mg IM once Route: IM; Site: left gluteus; pf1 03:01 Follow up: Response: Marked relief of symptoms jj7 01:51 Drug: Dicyclomine IM 20 mg IM once Route: IM; Site: right gluteus; pf1 03:01 Follow up: Response: Marked relief of symptoms jj7 01:55 Drug: morphine IVP or IV 4 mg IVP once over 4 mins Route: IVP; Infused Over: 4 mins; pf1 Site: left antecubital; 03:01 Follow up: Response: Marked relief of symptoms jj7 Medication: 01:20 VIS not applicable for this client. jj7 Outcome: 02:47 Discharge ordered by MD. vick 02:59 Discharged to home via wheelchair, jj7 02:59 Condition: improved 02:59 Discharge instructions given to patient, family, Instructed on discharge instructions, follow up and referral plans. no drinking with medication, medication usage, Demonstrated understanding of instructions, follow-up care, medications, Prescriptions given X 2, 03:02 Patient left the ED. jj7 Signatures: Tisha Cruzj6 Marguerite Ozuna RN RN jj7 Kristen Cunningham RN RN pf1 Mario Santo MD MD sp4
--- NOTE | 2023-03-03 02:48 | EDPHYS ---
Physician Documentation [facility] Name: Efrem Pastor Age: 32 yrs Sex: Female : 1990 Arrival Date: 03/03/2023 Time: 01:01 Bed 6 Private MD: ED Physician Mario Santo HPI: 03/03 01:05 This 32 yrs old Female presents to ER via Unassigned with complaints of sp4 Abdominal Pain, Nausea/Vomiting, Pt states she was seen earlier but symptoms have not stopped, pt states she is now vomiting blood.. 02:42 32-year-old female presents with persistent epigastric pain and vomiting starting sp4 yesterday 03/02/2023 at 12:30 PM. Patient reports she has vomited little blood secondary to persistent retching. Pain management MD is Peggy Mcclain , and Reyes Ovalles. At home patient takes Phenergan, Protonix, hydrocodone 10 as needed for pain. Patient has history of gastroparesis, irritable bowel syndrome, PTSD. Patient presented here yesterday 03/02/2023 at 1420 p.m. patient had full abdominal workup CMP revealed mild elevation of transaminases, UA revealed positive ketones, urine was negative, CT abdomen and pelvis with IV contrast revealed no acute intra-abdominal process. No suspicious finding in the lung bases, surgically absent gallbladder, symmetric renal function, no dilated bowel loops, no free air no free fluid.. Historical: - Allergies: 01:20 Haldol; pf1 01:20 Scopolamine HBr; pf1 - Home Meds: 01:21 Protonix Oral [Active]; [place] Oral [Active]; Phenergan Oral [Active]; pf1 - PMHx: 01:20 Gastroparesis; Irritable bowel syndrome; PTSD; pf1 - PSHx: 01:20 bilateral ureter attachment; Cholecystectomy; leep procedure; Lumpectomy of breast; pf1 right breast; - Immunization history:: Adult Immunizations up to date, Client reports receiving the 2nd dose of the Covid vaccine, Pfizer Last tetanus immunization: > 10 years ago Flu vaccine is up to date. - Social history:: Smoking status: Reported history of juuling and/or vaping. Patient/guardian denies using alcohol, street drugs. - Family history:: not pertinent. ROS: 02:42 Constitutional: Negative for fever, chills, and weight loss, positive for epigastric sp4 pain and persistent vomiting. Positive for 1 episode of small amount of bloody emesis. 02:42 All other systems are negative, Exam: 02:42 Constitutional: This is a well developed, well nourished patient who is awake, alert, sp4 mild to moderate distress on exam with persistent dry heaving and retching. Head/Face: Normocephalic, atraumatic. Eyes: Pupils equal round and reactive to light, extra-ocular motions intact. Lids and lashes normal. Conjunctiva and sclera are not injected. Cornea within normal limits. Periorbital areas with no swelling, redness, or edema. ENT: Nares patent. No nasal discharge, no septal abnormalities noted. Tympanic membranes are normal and external auditory canals are clear. Oropharynx with no redness, swelling, or masses, exudates, or evidence of obstruction, uvula midline. Mucous membranes moist. Neck: Trachea midline, no thyromegaly or masses palpated, and no cervical lymphadenopathy. Supple, full range of motion without nuchal rigidity, or vertebral point tenderness. Chest/axilla: Normal chest wall appearance and motion. Nontender with no deformity. No lesions are appreciated. Cardiovascular: Regular rate and rhythm with a normal S1 and S2. No gallops, murmurs, or rubs. Normal PMI, no JVD. No pulse deficits. Respiratory: Lungs have equal breath sounds bilaterally, clear to auscultation and percussion. No rales, rhonchi or wheezes noted. No increased work of breathing, no retractions or nasal flaring. Abdomen/GI: Soft, non-tender, with normal bowel sounds. No distension or tympany. No guarding or rebound. No evidence of tenderness throughout. Back: No spinal tenderness. No costovertebral tenderness. There is sacral decubitus ulcer that is covered by the wound VAC. Skin: Warm, dry with normal turgor. Normal color with no rashes, no lesions, and no evidence of cellulitis. MS/ Extremity: Pulses equal, no cyanosis. Neurovascular intact. Full, normal range of motion. Neuro: Awake and alert, GCS 15, oriented to person, place, time, and situation. Cranial nerves II-XII grossly intact. Motor strength 5/5 in all extremities. Sensory grossly intact. Psych: Awake, alert, with orientation to person, place and time. Behavior, mood, and affect are within normal limits Vital Signs: 01:04 BP 148 / 105; Pulse 107; Resp 20; Temp 98.6; Pulse Ox 97% on R/A; Weight 68.04 kg; pf1 Height 5 ft. 2 in. ; Pain 9/10; 02:15 BP 118 / 76; Pulse 120; Resp 16; Pulse Ox 95% ; jj7 02:59 BP 108 / 68; Pulse 106; Resp 15; Pulse Ox 96% ; jj7 01:04 Body Mass Index 27.44 (68.04 kg, 157.48 cm) pf1 01:04 Pain Scale: Adult pf1 MDM: 01:55 Patient medically screened. sp4 02:42 Differential diagnosis: Nonspecific abd pain, gastritis, viral gastroenteritis, sp4 gastroenteritis. Data reviewed: vital signs, nurses notes, old medical records, CT abdomen and pelvis 03/02/2023. Labs from the same date. Consideration of Admission/Observation Escalation of care including admission/observation considered. ED course: Patient has improved after medication. Will advise clear liquid diet. Clear liquids only for 24 hours and Reglan as needed for nausea. Patient should continue her home medications, Phenergan, [place], and Protonix . 03/03 01:14 Order name: BMP; Complete Time: 02:39 sp4 03/03 01:14 Order name: Test, Serum; Complete Time: 02:39 sp4 Administered Medications: 01:40 Drug: Pantoprazole IVP 40 mg IVP once Route: IVP; Site: left antecubital; pf1 03:02 Follow up: Response: Marked relief of symptoms jj7 01:40 Drug: NS 0.9% IV 1000 ml IV at 1 bolus Per protocol; 1000 mL bolus Route: IV; Rate: 1 pf1 bolus; Site: left antecubital; 02:47 Follow up: IV Status: Completed infusion jj7 01:42 Drug: metoCLOPramide IVP 10 mg IVP once; over 1 to 2 minutes Route: IVP; Site: left pf1 antecubital; 03:01 Follow up: Response: Marked relief of symptoms jj7 01:43 Drug: Ativan IVP 2 mg IVP once Route: IVP; Site: left antecubital; pf1 03:01 Follow up: Response: Marked relief of symptoms jj7 01:43 Drug: Famotidine IVP 20 mg IVP once; dilute with 10 mL 0.9% NaCl; give over 2 minutes pf1 Route: IVP; Site: left antecubital; 03:01 Follow up: Response: Marked relief of symptoms jj7 01:50 Drug: Promethazine IM 25 mg IM once Route: IM; Site: left gluteus; pf1 03:01 Follow up: Response: Marked relief of symptoms jj7 01:51 Drug: Dicyclomine IM 20 mg IM once Route: IM; Site: right gluteus; pf1 03:01 Follow up: Response: Marked relief of symptoms jj7 01:55 Drug: morphine IVP or IV 4 mg IVP once over 4 mins Route: IVP; Infused Over: 4 mins; pf1 Site: left antecubital; 03:01 Follow up: Response: Marked relief of symptoms jj7 Disposition Summary: 03/03/23 02:47 Discharge Ordered Notes: Location: Home sp4 Problem: new sp4 Symptoms: have improved sp4 Condition: Stable sp4 Diagnosis - Vomiting, unspecified sp4 - Gastroparesis, intractable nausea and vomiting sp4 Followup: sp4 - With: Private Physician - When: 7 - 10 days - Reason: Recheck today's complaints Discharge Instructions: - Discharge Summary Sheet sp4 - Clear Liquid Diet, Adult, Ifsc-qz-Zaez sp4 Forms: - Patient Portal Instructions sp4 Prescriptions: - Reglan 10 mg Oral tablet - take 1 tablet ORAL route every 6 hours PRN nausea; 60 tablet; Refills: 0, sp4 Product Selection Permitted - dicyclomine 20 mg Oral tablet - take 1 tablet ORAL route 3 times per day PRN abdominal pain; 30 tablet; sp4 Refills: 0, Product Selection Permitted Signatures: Dispatcher [employer] Kristen Moreira RN RN pf1 Mario Santo MD MD sp4 Marguerite Ozuna RN jj7
[2023-03-03 07:49] VITALS: TEMP 98.6
[2023-03-03 08:02] VITALS: BP 108/68; O2SAT 96
== END ==
LOC: ER 01:01
DX: K31.84 Gastroparesis (principal); R10.13 Epigastric pain; Z88.5 Allergy status to narcotic agent; Z88.8 Allergy status to other drugs, medicaments and biological substances
CPT/HCPCS: 96361; 80048; 36415; 84703; 96375; 96372; 96374; 99284; J2550; J2765; J0500; C9113; J7030

== ENCOUNTER → 2023-03-23 | Emergency (ER) | payer BC, SELFPAY ==
[~2023-03-23] MED LIST changes: -DICYCLOMINE HCL 20 MG/2 ML AMP IM ONE; +DIPHENHYDRAMINE 50 MG/ML VIAL ONE; +KETOROLAC 30 MG/ML INJ ONE; -MORPHINE 4 MG/ML SYR ONE; +ONDANSETRON 4 MG/2 ML VIAL ONE; -PANTOPRAZOLE 40 MG INJ ONE
--- OUTSIDE RECORDS SUMMARY | 2023-03-23 16:52 | XMS REPORT | Continuity of Care Document ---
Author Name Unknown Address [address] [facility] [address] [place] [address] [facility] thconnect Address [address] [facility] [address] [place] [address] Care Team Providers Care Service Sprinkler Helper Name Role Phone Kelton Daniels Jr. Primary Care Physician CAIT BRAGG Attending Clinician Unavailable GIOVANY HAGER Attending Clinician Unavailable LAB90 Attending Clinician Unavailable Marylou Alarcon NP Attending Clinician eTd Schultz Attending Clinician Unavailable Kaelyn Peguero Attending Clinician Unavailable Physician, No Primary or Family Admitting Clinic monse Unavailable Payers Payer Name Policy Type Policy Number Effective Date Expirati on Date Source [place]/PLUS [id number] 2022 00:00:00 BCBS 2 [id number] 2023 00:00:00 Problems Condition Name Condition Details [...] See comments 2022-02 00:00: 00 Dystonic reactions [facility] Scopolam ine Propensi ty to adverse reaction s Active Other - See comments 2022-02 00:00: 00 Visual changes [facility] HALOPERI DOL DRUG INGREDI Active Med Other-Cmnt 2022-02 00:00: 00 [facility] SCOPOLAM INE DRUG INGREDI Active Other-Cmnt 2022-02 00:00: 00 [facility] haloperi dol DA Active SV HIVES 0 5- 00:00: 00 [facility] scopolam ine DA Active SV HIVES 0 5- 00:00: 00 [facility] No Known Allergie s DA Active U 0 1- 00:00: 00 [facility] No Known Allergie s DA Active U 0 06-24 00:00: 00 [facility] No Known Allergie s DA Active U 0 16 00:00: 00 [facility] scopolam ine DA Active MD 2020-0 4-10 00:00: 00 [facility] scopolam ine DA Active MD RASH-HIVES 0 4-10 00:00: 00 [facility] No Known Allergie s DA Active U 0 20 00:00: 00 [facility] No Known Allergie s DA Active U 0 620 00:00: 00 [facility] No Known Drug Intolera nces DA Active U 0 15 00:00: 00 [facility] No Known Drug Intolera nces DA Active U NONE 0 -15 00:00: 00 [facility] NO KNOWN ALLERGIE S Drug Class Active [facility] Social History Social Habit Start Date [...] Stop Date Source Tobacco smoking consumption unknown [facility] Ex-smoker 2023-01-27 00:00:00 2023-01-27 00:00:00 Laura Perdomo External Medications Ordered Medication Name Filled Medication Name Start Date Stop Date Current Medication? Ordering Clinician Indication Dosage Frequency Signature (SIG) Comments Components Source Brexpiprazo le (Rexulti) 2 MG oral Tablet 02-24 11:47: 34 Yes 2mg Take 2 mg by mouth daily. Laura hall HYDROcodone -Acetaminop hen 10-325 MG oral Tablet 02-24 00:00: 00 Yes [id number] 1{tbl} Q.5D Take 1 tablet by mouth 2 times daily as needed for pain. Lauar hall Methocarbam ol 500 MG oral Tablet 02-24 00:00: 00 Yes [id number] 500mg QD Take 1 tablet (500 mg total) by mouth nightly as needed (muscle spasm). Laura hall Methocarbam ol 500 MG oral Tablet 1-09 00:00: 00 02-24 00:00 :00 No Laura hall Celecoxib 200 MG oral Capsule -09 00:00: 00 02-24 00:00 :00 No TAKE ONE (1) CAPSULE(S) BY MOUTH ONCE A DAY WITH FOOD. Larua hall Promethazin e HCl (PHENERGAN) 25 MG oral Tablet 1-04 00:00: 00 Yes [id number] 25mg QD Take 1 tablet (25 mg total) by mouth daily as needed for nausea. Laura hall Valacyclovi r HCl (Valtrex) 500 MG oral Tablet 2022-02 00:00: 00 Yes [id number] 500mg Take 1 tablet (500 mg total) [...] dose, On Thu12/26/22 at 2030, 1 mL [facility] penicillin g benzathine (BICILLIN L-A) injection 1.2 Million Units 2022-02 01:45: 00 12-27 01:53 :00 No 1.210 1.2 Million Units, Intramuscu lar, ONCE, 1 dose, On Thu12/26/22 at 1945, RONNIE
Re ason for Anti-Infec tive: Empiric Therapy for Suspected Infection< br>Empiric Therapy Site: HEENT
D uration of therapy: Once (ED) [facility] acetaminoph en (TYLENOL) tablet 650 mg 2022-02 01:45: 00 12-27 01:50 :00 No 650mg 650 mg, Oral, ONCE, 1 dose, On Thu12/26/22 at 1945, RONNIE [facility] ketorolac (TORADOL) injection 30 mg 2022-02 00:45: 00 12-27 00:59 :00 No 30mg 30 mg, Intramuscu lar, ONCE, 1 dose, On Thu12/26/22 at 1845, RONNIE [facility] hydrocortis one 1 mg/4 mL in nystatin suspension- diphenhydrA MINE solution suspension 2022-02 00:00: 00 12-30 05:59 :00 Yes [id number] 15mL Take 15 mL by mouth every 6 (six) hours as needed for Pain (scale 4-6) for up to 3 days. [facility] Famotidine (PEPCID) 20 MG oral tablet 2022-02 [...] Systolic blood pressure 2022-12-27 02:16:00 111 mm[Hg] [facility] Diastolic blood pressure 2022-12-27 02:16:00 82 mm[Hg] [facility] Heart rate 2022-12-27 02:16:00 93 /min [facility] Body temperature 2022-12-27 02:16:00 37.56 Caitlyn [facility] Respiratory rate 2022-12-27 02:16:00 20 /min [facility] Oxygen saturation in Arterial blood by Pulse oximetry 2022-12-27 02:16:00 96 /min [facility] Body height 2022-12-26 23:57:00 157.5 cm [facility] Body weight 2022-12-26 23:57:00 58.968 kg [facility] BMI 2022-12-26 23:57:00 23.78 kg/m2 [facility] Procedures Procedure Date / Time Performed Performing Clinicia n Source CBC WITH DIFF 2022-12-27 01:49:00 Marylou Alarcon [facility] RAPID STREP SCREEN FOR GROUP A 2022-12-27 00:59:00 Marylou Alarcon [facility] NOTICE OF PRIVACY PRACTICES 2022-12-26 23:28:27 Doctor Unassigned, [place] [facility] CONSENT/REFUSAL FOR DIAGNOSIS AND TREATMENT 2022-12-26 23:27:35 Doctor Unassigned, [place] [facility] Encounters Start Date/Time End Date/Time Encounter Type Admission Type Attending [facility] Care Department Encounter ID Source 2020-06-24 15:53:22 Inpatient HCARG HCARG [id number] [facility] 2020-05-19 11:42:02 Inpatient HCARG HCARG [id number] [facility] 2019-07-30 21:08:00 Inpatient HCARG ER [id number] [facility] 2023-05-04 11:00:00 2023-05-04 11:00:00 Outpatient CAIT BRAGG [facility] [id number] [facility] 2023-03-25 14:00:00 2023-03-25 14:00:00 Outpatient GIOVANY HAGER [id number] Laura [facility] 2023-03-10 00:00:00 2023-03-10 00:00:00 Outpatient [facility] HAGER [id number] [facility] 2023-03-09 00:00:00 2023-03-09 00:00:00 Outpatient GIOVANY HAGER [id number] [facility] 2023-03-04 00:00:00 2023-03-04 00:00:00 Outpatient PREZAS, GIOVANY DIALLOSEY [id number] Laura [facility] 2023-03-03 00:00:00 2023-03-03 00:00:00 Outpatient PREZAS, GIOVANY PIZANO [id number] Laura [facility] 2023-03-02 00:00:00 2023-03-02 00:00:00 Outpatient PREZAS, GIOVANY PIZANO [id number] Laura [facility] 2023-03-02 00:00:00 2023-03-02 00:00:00 Outpatient PREZAS, GIOVANY DIALLOSEY [id number] Laura [facility] 2023-03-02 00:00:00 2023-03-02 00:00:00 Outpatient PREZAS, GIOVANY PIZANO [facility] [id number] [facility] 2023-[facility] 00:00:00 2023-03-02 00:00:00 Outpatient PREZAS, GIOVANY DIALLOSEY [id number] [facility] 2023-02-27 00:00:00 2023-02-27 00:00:00 Outpatient PREZAS, GIOVANY PIZANO LAURA [id number] [facility] 2023-02-25 00:00:00 2023-02-25 00:00:00 Outpatient PREZAS, GIOVANY PIZANO LAURA [id number] [facility] 2023-02-24 11:30:00 2023-02-24 11:30:00 Outpatient PREZAS, GIOVANY PIZANO [facility] [id number] [facility] 2023-[facility]18 00:00:00 2023-02-18 00:00:00 Outpatient PREZAS, GIOVANY PIZANO LAURA [id number] [facility] 2023-02-12 00:00:00 2023-02-12 00:00:00 Outpatient PREZAS, GIOVANY DIALLOHUMPHREY PIZANO [id number] Laura Seybold 2023-02-12 00:00:00 2023-02-12 00:00:00 Outpatient PREZAS, GIOVANY PIZANO LAURA [id number] [facility] 2023-02-11 00:00:00 2023-02-11 00:00:00 Outpatient GIOVANY HAGER [id number] Laura [facility] 2023-01-28 00:00:00 2023-01-28 00:00:00 Outpatient GIOVANY HAGER [id number] Laura Enrique 2023-01-28 00:00:00 2023-01-28 00:00:00 Outpatient GIOVANY HAGER [id number] [facility] 2023-01-27 13:00:00 2023-01-27 13:00:00 Outpatient LAB90 LAURA PIZANO [id number] Laura Enrique 2023-01-27 10:45:00 2023-01-27 10:45:00 Outpatient GIOVANY HAGER [id number] [facility] 2023-01-27 00:00:00 2023-01-27 00:00:00 Outpatient GIOVANY HAGER [id number] [facility] 2022-12-26 17:57:00 2022-12-26 20:20:00 Emergency Marylou Alarcon [facility] [id number] [facility] 2022-12-26 17:57:00 2022-12-26 20:20:00 Emergency X ALEX, MARYLOU [facility] ERT [id number] [facility] 2022-06-11 11:10:00 2022-06-11 12:41:00 Emergency EM Ted Schultz [facility] ER [id number] [facility] 2021-02-09 23:10:00 2021-02-10 00:19:00 Emergency EM Kaelyn Peguero HC[facility] ER [id number] [facility] Results Test Description Test Time Test Comments Results Result Co mments Source Indication for culture: Suprapubic PainURINE SOURCE: CLEAN CATCH URINEUR HCG [id number] 11:54:00* Test Item Value Reference Range Interpretation Comme nts UR HCG QUAL (test code = HCGQLU) NEGATIVE NEGATIVE Indication for culture: Suprapubic PainURINE SOURCE: CLEAN CATCH URINE COMPREHENSIVE METABOLIC [id number] 11:49:00* Test Item Value Reference Range Interpretation [...] calculation forGFR is based on the CKD-EPI (2020) calculation. This formulais race indifferent and is [...] code = ALKP) 105 U/L 45-117 N [id number] 11:49:00* Test Item Value Reference Range Interpretation Comme nts AMYLASE (test code = PARAM) 73 IU/L 25-115 N [id number] 11:49:00* Test Item Value Reference Range Interpretation Comme nts LIPASE (test code = LIP) 134 U/L 73-393 N CBC W/AUTO [id number] 11:33:00* Test Item Value Reference Range Interpretation [...] code = RBCM) NO NORMAL COMPREHENSIVE METABOLIC [id number] 16:11:00* Test Item Value Reference Range Interpretation [...] > or = 60 ml/min/1.73M2IF PATIENT IS -JAMAICAN, MULTIPLY REPORTED RESULT BY1.21. [Automated message] The [...] code = ALKP) 139 U/L 45-117 H [id number] 16:11:00* Test Item Value Reference Range Interpretation Comme nts LIPASE (test code = LIP) 108 U/L 73-393 N URINALYSIS W REFLEX [id number] 16:05:00* Test Item Value Reference Range Interpretation [...] NEGATIVE UA PH DIPSTICK (test code = EMLIY) 7.0 4.6-8.0 UA PROTEIN DIPSTICK (test co [...] UAMICRO) Y= DO UA MICRO UR HCG [id number] 16:05:00* Test Item Value Reference Range Interpretation Comme nts UR HCG QUAL (test code = HCGQLU) NEGATIVE NEGATIVE URINALYSIS W REFLEX [id number] 16:05:00* Test Item Value Reference Range Interpretation [...] = UAMICRO) Y= DO UA MICRO UA [id number] 16:05:00* Test Item Value Reference Range Interpretation Comme nts UA WBC (test code = WBCU) 0-2 #/hpf 0-5 UA RBC (test code = RBCU) 0-2 #/hpf 0-5 UA EPITHELIAL CELLS (test co de = EPIU) 2+ /hpf NEG,FEW A UA BACTERIA (test code = BACU) FEW /hpf NEGATIVE A UA AMORPHOUS SEDIMENT (test code = AMORU) FEW /hpf NEG,FEW UR HCG [id number] 16:05:00* Test Item Value Reference Range Interpretation Comme nts UR HCG QUAL (test code = HCGQLU) NEGATIVE NEGATIVE URINALYSIS W REFLEX [id number] 16:05:00* Test Item Value Reference Range Interpretation [...] UAMICRO) Y= DO UA MICRO UR HCG [id number] 16:05:00* Test Item Value Reference Range Interpretation Comme nts UR HCG QUAL (test code = HCGQLU) NEGATIVE NEGATIVE DRUGS OF ABUSE [id number] 16:01:00* Test Item Value Reference Range Interpretation Comme nts UR COCAINE (test code = COCAU) NEGATIVE ng/ml NEGATIVE UR CANNABINOIDS (test code = CANU) POSITIVE ng/ml NEGATIVE A VALUE EXCEEDS CRITICAL LEVEL. CRITICAL VALUE CALLEDTO AND CRITICAL VALUE READ BACK BY HUBER DOWNING RN 1600 06/24/20. Chas Dixon POSITIVE URINE DRUG SCREEN [...] 300 NG/MLPHENCYCLIDINE 25 NG/ML URINALYSIS W REFLEX [id number] 15:58:00* Test Item Value Reference Range Interpretation [...] NEEDED? (test code = UAMICRO) UR HCG [id number] 15:58:00* Test Item Value Reference Range Interpretation Comme nts UR HCG QUAL (test code = HCGQLU) NEGATIVE NEGATIVE CBC W/AUTO [id number] 15:52:00* Test Item Value Reference Range Interpretation [...] = RBCM) NO NORMAL URINALYSIS W REFLEX [id number] 13:00:00* Test Item Value Reference Range Interpretation [...] Y= DO UA MICRO UA ICTOTEST FOR [id number] 13:00:00* Test Item Value Reference Range Interpretation Comme nts UA ICTOTEST FOR BILIRUBIN (t est code = ICTOU) POSITIVE NEGATIVE A UA [id number] 13:00:00* Test Item Value Reference Range Interpretation Comme nts UA WBC (test code = WBCU) 0-2 #/hpf 0-5 UA RBC (test code = RBCU) 3-5 #/hpf 0-5 UA EPITHELIAL CELLS (test co de = EPIU) FEW /hpf NEG,FEW UA BACTERIA (test code = BACU) FEW /hpf NEGATIVE A UA MUCUS (test code = MUCU) 1+ /hpf NEG,FEW A UR HCG [id number] 13:00:00* Test Item Value Reference Range Interpretation Comme nts UR HCG QUAL (test code = HCGQLU) NEGATIVE NEGATIVE DRUGS OF ABUSE [id number] 12:57:00* Test Item Value Reference Range Interpretation [...] 300 NG/MLPHENCYCLIDINE 25 NG/ML URINALYSIS W REFLEX [id number] 12:56:00* Test Item Value Reference Range Interpretation [...] Y= DO UA MICRO UA ICTOTEST FOR [id number] 12:56:00* Test Item Value Reference Range Interpretation Comme nts UA ICTOTEST FOR BILIRUBIN (t est code = ICTOU) POSITIVE NEGATIVE A UR HCG [id number] 12:56:00* Test Item Value Reference Range Interpretation Comme nts UR HCG QUAL (test code = HCGQLU) NEGATIVE NEGATIVE URINALYSIS W REFLEX [id number] 12:53:00* Test Item Value Reference Range Interpretation [...] UAMICRO) Y= DO UA MICRO UR HCG [id number] 12:53:00* Test Item Value Reference Range Interpretation Comme nts UR HCG QUAL (test code = HCGQLU) NEGATIVE NEGATIVE URINALYSIS W REFLEX [id number] 12:53:00* Test Item Value Reference Range Interpretation [...] UAMICRO) Y= DO UA MICRO UR HCG [id number] 12:53:00* Test Item Value Reference Range Interpretation Comme nts UR HCG QUAL (test code = HCGQLU) NEGATIVE NEGATIVE - XR ABDOMEN [id number] 12:16:00 [facility] 1990 Sex: F FAX: Sawyer Centeno II [place]: St: PRE Name: BREANNA QUEEN FSED : 1990 Age/S: 30/F [address] Unit #: [id number] Loc: [place] [address] Phys: Sawyer Centeno II, MD Acct: [id number] Dis Date: Status: PRE ER PHONE #: Exam Date: 05/19/2020 1212 FAX #: Reason: abdominal pain EXAMS: CPT CODE: [id number] XR ABDOMEN 2V 42123 - XR ABDOMEN 2V PROVIDED REASON FOR EXAM: abdominal pain COMPARISON: None available. FINDINGS: Bowel gas pattern is non-obstructive. No abnormal calcifications or soft tissue masses. No acute fracture or subluxation. Regional soft tissues are unremarkable. Surgical clips of the right upper abdomen. Relative paucity of bowel gas. IMPRESSION: No acute process.Location: V20 at 1216 Reported and signed by: DEVANTE CABALLERO M.D. CC: Technologist: RT Bekah (Gretta) CT Trnward Date/Time/By: 05/19/2020 (1216) : By: [email or web address] Orig Print D/T: S: 05/19/2020 (4481) PAGE 1 Signed ReportBASIC METABOLIC PANEL 2020-05-19 [...] > or = 60 ml/min/1.73M2IF PATIENT IS -JAMAICAN, MULTIPLY REPORTED RESULT BY1.21. [Automated message] The system which generated this result transmitted reference range: >=60. The reference range was not used to interpret this result as normal/abnormal. CREATININE (test code = CREAT) 0.64 mg/dl 0.55-1.02 N CALCIUM (test code = CA) 9.8 mg/dL 8.5-10.1 N LIVER [id number] 12:08:00* Test Item Value Reference Range Interpretation [...] code = ALKP) 119 U/L 45-117 H [id number] 12:08:00* Test Item Value Reference Range Interpretation Comme nts LIPASE (test code = LIP) 67 U/L 73-393 L CBC W/AUTO [id number] 11:43:00* Test Item Value Reference Range Interpretation [...] = RBCM) NO NORMAL URINALYSIS W REFLEX [id number] 22:06:00* Test Item Value Reference Range Interpretation [...] MUCU) 2+ /hpf NEG,FEW A BASIC METABOLIC [id number] 21:54:00* Test Item Value Reference Range Interpretation [...] > or = 60 ml/min/1.73M2IF PATIENT IS -JAMAICAN, MULTIPLY REPORTED RESULT BY1.21. CREATININE (test code = CREAT) 0.70 mg/dL 0.51-0.95 N CALCIUM (test code = CA) 9.3 mg/dL 8.5-10.1 N LIVER [id number] 21:54:00* Test Item Value Reference Range Interpretation [...] code = ALKP) 69 U/L 50-136 N [id number] 21:54:00* Test Item Value Reference Range Interpretation Comme nts LIPASE (test code = LIP) 63 U/L 73-393 L BASIC METABOLIC [id number] 21:53:00* Test Item Value Reference Range Interpretation [...] > or = 60 ml/min/1.73M2IF PATIENT IS -JAMAICAN, MULTIPLY REPORTED RESULT BY1.21. CREATININE (test code = CREAT) 0.70 mg/dL 0.51-0.95 N CALCIUM (test code = CA) 9.3 mg/dL 8.5-10.1 N LIVER [id number] 21:53:00* Test Item Value Reference Range Interpretation [...] ( test code = ALKP) U/L 50-136 [id number] 21:53:00* Test Item Value Reference Range Interpretation Comme nts LIPASE (test code = LIP) 63 U/L 73-393 L BASIC METABOLIC [id number] 21:52:00* Test Item Value Reference Range Interpretation [...] > or = 60 ml/min/1.73M2IF PATIENT IS -JAMAICAN, MULTIPLY REPORTED RESULT BY1.21. CREATININE (test code = CREAT) 0.70 mg/dL 0.51-0.95 N CALCIUM (test code = CA) 9.3 mg/dL 8.5-10.1 N LIVER [id number] 21:52:00* Test Item Value Reference Range Interpretation [...] ( test code = ALKP) U/L 50-136 [id number] 21:52:00* Test Item Value Reference Range Interpretation Comme nts LIPASE (test code = LIP) 63 U/L 73-393 L BASIC METABOLIC [id number] 21:51:00* Test Item Value Reference Range Interpretation [...] > or = 60 ml/min/1.73M2IF PATIENT IS -JAMAICAN, MULTIPLY REPORTED RESULT BY1.21. CREATININE (test code = CREAT) 0.70 mg/dL 0.51-0.95 N CALCIUM (test code = CA) 9.3 mg/dL 8.5-10.1 N LIVER [id number] 21:51:00* Test Item Value Reference Range Interpretation [...] ( test code = ALKP) U/L 50-136 [id number] 21:51:00* Test Item Value Reference Range Interpretation Comme nts LIPASE (test code = LIP) 63 U/L 73-393 L BASIC METABOLIC [id number] 21:49:00* Test Item Value Reference Range Interpretation [...] = CA) 9.3 mg/dL 8.5-10.1 N LIVER [id number] 21:49:00* Test Item Value Reference Range Interpretation [...] ( test code = ALKP) U/L 50-136 [id number] 21:49:00* Test Item Value Reference Range Interpretation Comme nts LIPASE (test code = LIP) 63 U/L 73-393 L BASIC METABOLIC [id number] 21:48:00* Test Item Value Reference Range Interpretation [...] = CA) 9.3 mg/dL 8.5-10.1 N LIVER [id number] 21:48:00* Test Item Value Reference Range Interpretation [...] ( test code = ALKP) U/L 50-136 [id number] 21:48:00* Test Item Value Reference Range Interpretation Comme nts LIPASE (test code = LIP) U/L 73-393 BASIC METABOLIC [id number] 21:46:00* Test Item Value Reference Range Interpretation [...] (test code = CA) mg/dL 8.5-10.1 LIVER [id number] 21:46:00* Test Item Value Reference Range Interpretation [...] ( test code = ALKP) U/L 50-136 [id number] 21:46:00* Test Item Value Reference Range Interpretation Comme nts LIPASE (test code = LIP) U/L 73-393 CBC W/AUTO [id number] 21:43:00* Test Item Value Reference Range Interpretation [...] Notes Date/Time Note Provider Source 2023-02-24 11:47:47 [id number]TK/f jHA9B BWVmt+[id number]:47:47Formatt ing of this note is different from the original.Chief ComplaintPatient presents withFollow-Up Visit1 month follow up visitRENEE SolaresN 35909-4Qjwtk SfcvRI0371-97-55M78:48:14Nurse NoteTXT1.2.840.685833.1.13.131.2.7.2.686324|3 [id number] for patient wcyz57778-5Cmexn NoteLNNARRATIVEFormatted C-CDA narrative [facility]27 [facility] [id number] 16T11:48:141.2.840.012835.1.72.3.15|1.2.840.1 [id number] [facility] 2022-06-11 11:33:00 [id number] c+eVJ M05xwfHpdW5+PLtLRpPkOKLMLJJQNZj6822-64-30N52: 33:00 [facility] ([facility])EMERGENCY PROVIDER REPORTREPORT#:[id number] REPORT STATUS: SignedDATE:06/11/22 TIME: 1133 PATIENT: TONYBREANNA CRUZ UNIT #: [id number]#: [id number] ROOM/BED:AGE: 32 SEX: F PCP PHYS: Undefined [...] (2008). Additional Surgical Historybilateral ureter reattachment 1997 [facility] 2018 Botox injection to pylorusAlcohol Use Alcohol [...] 1206 B/P 124/78 06/11 1206 B/P Mean 93 06/11 1206 Temp [...] % (Auto) (16 - 50 %) 22.9 [place] % (Auto) (0.0 - 13.0 %) 9.8 [...] pH (4.6 - 8.0) 7.0 Ur Specific [place] (1.001 - 1.035) 1.020 Urine Protein (NEGATIVE [...] [facility] was [facility] compazine/reglan after blood work and CT scan were unremarkable. Re-Evaluation/Progress #1Time of Re-Eval 1157Re-Eval Status Improved ED CourseMedication(s) OrderedMedication(s) Ordered:Central Nervous System Agents Sig/Ayanna Start time Last Medication Dose Route Stop Time Status Admin Morphine Sulfate 4 MG X1ED STA 06/11 1129 DCr 05/03 IV 05/ 1130 1132 Electrolytic, Caloric, And Elvia Sig/Ayanna Start time Last Medication Dose Route Stop Time Status Admin Sodium Chloride 1,000 ML X1ED STA 06/11 1141 DC 05/03 IV 05/ 1240 1155 Sodium Chloride 1,000 ML X1ED STA 05/ 1118 DC 05/03 IV 05/ 1217 1123 Gastrointestinal Drugs Sig/Ayanna Start time Last Medication Dose Route Stop Time Status Admin Prochlorperazine 5 MG X1ED STA 06/11 1118 DC 05/03 Edisylate IV 05/ 1119 1124 Patient Discharge Departure Vital Signs/ConditionVital SignsFirst Documented: Result Date Time Pulse Ox 99 05/ 1113 B/P 156/96 05/03 1113 B/P Mean 116 05/03 1113 O2 Delivery Room air 05/ 1113 Pulse 70 05/03 1113 Resp 18 05/ 1113 Temp 36.3 05/03 1206 Last Documented: Result Date Time Pulse Ox 100 05/ 1206 B/P 124/78 05/03 1206 B/P Mean 93 05/ 1206 Temp 36.3 05/03 1206 Pulse 77 05/03 1206 Resp 16 05/03 1206 O2 Delivery Room air 05/03 1113 All vital signs available at the [...] or a call to 911. at 1245RPT #:[id number] OF REPORTEDEmergency department [id number]:33:00H.[id number] VAvailable for patient [id number]:45:50 [facility] 2021-02-09 23:43:00 [id number]+JM qb4HT [id number]: 43:00 [facility])EMERGENCY PROVIDER REPORTREPORT#:[id number] REPORT STATUS: SignedDATE:02/09/21 TIME: 2343 PATIENT: BREANNA JIMENEZ UNIT #: [id number]#: [id number] ROOM/BED:AGE: 30 SEX: F PCP PHYS: No Primary or Family PhysicianSERVICE AUTHOR: Kaelyn Peguero MD * ALL edits or amendments must be made on the electronic/computer document * YWM-Uld-Rdcz Illness GeneralConfirmed Patient YesPatient Type New patientInitial Greet Date/Time 02/09/212 PresentationChief Complaint Body aches, Chills, Cough Free Text HPI NotesFree Text HPI [id number] female comes emergency room complaining of cough, body aches, chills, that began 2 days ago. Patient has been traveling in [place] and apparently although she has been driving [...] gastroparesis anxiety bipolar d/oPast Surgical History:Reports: Cholecystectomy (2016), Breast biopsy/procedure (2008). Additional Surgical Historybilateral ureter reattachment 1997 LEE 2018 Botox injection to pylorusAlcohol Use Alcohol use (occasional)Drug Use MarijuanaSmoking status: Smoking status for patients 13 years old or older: Never Smoker Physical Exam Vital SignsVital SignsFirst Documented: Result Date Time Pulse Ox 100 01/01 2311 B/P 110/74 02/09 2310 B/P Mean 86 [...] new symptoms or worsening symptoms. at 0652RPT #:[id number] OF REPORTEDEmergency department arunrq1985-26-04P78:43:00H.[id number] VAvailable for patient ntmkDTVORTVRNRCCMW8857-66-16N85:53:06 [facility] 2020-06-24 15:35:00 [id number]+E6Evnajuol7mwig n9MbG cw++6/8lbcaD4mzaTtq2+NnE7/NEur3ax2K3l61605-58 -16T15:35:00 [facility] ([facility])EMERGENCY PROVIDER REPORTREPORT#:[id number] REPORT STATUS: SignedDATE:06/24/20 TIME: 1534 PATIENT: BREANNA JIMENEZ UNIT #: [id number]#: [id number] ROOM/BED:AGE: 30 SEX: F PCP PHYS: No Primary or Family PhysicianSERVICE AUTHOR: Maicol Coy MD * ALL edits or amendments must be made on the electronic/computer document * HPI-Abd Pain F Under 40 GeneralInitial Greet Date/Time 06/24/20 1529PCPDr. Nan in [place] PresentationChief Complaint Abdominal pain, Nausea, Vomiting [...] Nothing Free Text HPI NotesFree Text HPI Xsehx70i M2 LMP 19 May 2020 c/o acute on chronic gastroparesis related to IBS and/or THC use for past 2d with nonbloody N/V x 6. She is visiting from [place]. Risk-Abd Pain F Under 40)( Ectopic Risk [...] (2008). Additional Surgical Historybilateral ureter reattachment 1997LEEP 2017Botox injection to pylorusAlcohol Use Alcohol use (occasional)Drug [...] % (Auto) (16 - 50 %) 48.2 [place] % (Auto) (0.0 - 13.0 %) 13.0 [...] pH (4.6 - 8.0) 7.0 Ur Specific [place] (1.001 - 1.035) 1.020 Urine Protein (NEGATIVE [...] d/n have 2 SIRS criteria.Time of Re-Eval 164)( Re-Eval Status Improved, Resolved Abd Pain MDM [...] ML BOLUS ONCE ONE 06/24 1545 DC 05 IV 06/24 1644 1551 Gastrointestinal Drugs Sig/Ayanna [...] the plan for smoking cessation. at 2053RPT #:[id number] OF REPORTEDEmernational park medical center department scpvwm5651-14-80T21:35:00H.[id number] VAvailable for patient xqufSOIDJWNJAINLNN8930-94-28N55:53:15 [facility] 2020-[facility]-19 12:11:00 [id number] 3xkQV w5vgXREjrgH7oBsmaQDz2cGHhKoDP4W9BREK2v6378-34 -10T12:11:00 [facility] ([facility])EMERGENCY PROVIDER REPORTREPORT#:[id number] REPORT STATUS: SignedDATE:05/19/20 TIME: 1211 PATIENT: BREANNA QUEEN UNIT #: [id number]#: [id number] ROOM/BED:AGE: 30 SEX: F PCP PHYS: Brayan Winn MDSERVICE AUTHOR: Sawyer Centeno II, MD * ALL edits or amendments must be made on the electronic/computer document * HPI-Abd Pain F Under 40 Free Text HPI NotesFree Text HPI NotesThe patient tells me she has a history of gastroparesis but is not a diabetic. She tells me that she is from [facility] and that she has GI specialist in [facility] whose name is Dr. Hendrix. She tells me she used to get Botox injections in her pilorus to treat her pain. She tells me she went to a local hospital yesterday and got several medications for pain but the pain did not getany better. GeneralConfirmed Patient YesInitial Greet Date/Time 05/19/20 1129PCPIn [place] PresentationChief Complaint Abdominal painHx Obtained From [...] B/P Mean 120 05/19 1128 Temp 36.9 05/20 1127 Pulse 84 05/19 1128 Resp 18 05/19 112 Last Documented: Result Date Time Pulse Ox 98 05/20 1127 B/P 158/101 05/20 1127 B/P Mean 120 05/20 1127 Temp 36.9 05/20 1127 Pulse 84 05/20 1127 Resp 18 05/20 1127 Review of Vital Signs Reviewed Focused PEGeneral/Const [...] pH (4.6 - 8.0) 6.0 Ur Specific [place] (1.001 - 1.035) >= 1.030 Urine Protein [...] (Auto) (16 - 50 %) 9.5 L [place] % (Auto) (0.0 - 13.0 %) 4.3 [...] Entered: 05/19/2020 1219 IMPRESSION:No acute process. Location: X01Kbkhswtwpu By: Emily CABALLERO M.D. Imaging StatementRadiographic studies [...] Documented: Result Date Time Pulse Ox 98 04 1128 B/P 158/101 04/ 1128 B/P Mean [...] HTN F/u with PCP/other doc at 1708RPT #:[id number] OF REPORTEDEmergency department iihnjb9198-04-90E77:11:00H.[id number] VAvailable for patient cqvcPLVIUCMDCDQTOD7564-49-54J88:08:49 [facility] 2019-07-30 21:12:00 [id number]+z44of/FcEkEtU j+eWE lCaTPh3kZHRiUJBbJBNQ7lnHtFn7gWZo633kT44989-22 -20T21:12:00 [facility] ([facility])EMERGENCY PROVIDER REPORTREPORT#:[id number] REPORT STATUS: SignedDATE:07/30/19 TIME: 2111 PATIENT: BREANNA JIMENEZ UNIT #: [id number]#: [id number] ROOM/BED:AGE: 29 SEX: F PCP PHYS: No [...] (Auto) (16.0 - 50.0 %) 15.3 L [place] % (Auto) (0.0 - 13.0 %) 5.2 [...] pH (4.6 - 8.0) 6.0 Ur Specific [place] (1.001 - 1.035) 1.017 Urine Protein (NEGATIVE [...] STA 07/29 2257 DCr 07/29 IM 07/29 Ketorolac 30 MG X1ED STA 07/29 2114 DC 07/29 Tromethamine IV 07/29 Electrolytic, Caloric, And Elvia Sig/Ayanna Start time Last Medication Dose Route Stop Time Status Admin Potassium Chloride 20 MEQ X1ED STA 07/299 DC PO 07/29 2229 Sodium Chloride 1,000 ML X1ED STA 07/29 2113 DC 07/29 IV 07/29 2212 213 Gastrointestinal Drugs Sig/Ayanna Start [...] or a call to 911. at 0000RPT #:[id number] OF REPORTEDEmernational park medical center department rpnfoc3060-95-61U63:12:00H.[id number] VAvailable for patient lmmlFCAUTCYHOFSFHQ4953-15-42N69:00:25 [facility] 2019-07-30 21:12:00 [id number] Mili+2 WXC6cMngRnB3DC6rzUVPLKOREnFvmi3aZr81qD5501-47 -20T21:12:00 [facility] ([facility])EMERGENCY PROVIDER REPORTREPORT#:[id number] REPORT STATUS: SignedDATE:07/30/19 TIME: 2111 PATIENT: BREANNA JIMENEZ UNIT #: [id number]#: [id number] ROOM/BED:AGE: 29 SEX: F PCP PHYS: No [...] (Auto) (16.0 - 50.0 %) 15.3 L [place] % (Auto) (0.0 - 13.0 %) 5.2 [...] pH (4.6 - 8.0) 6.0 Ur Specific [place] (1.001 - 1.035) 1.017 Urine Protein (NEGATIVE [...] of Care TestingUrinalysis Interpretation Urinalysis NL Re-Evaluation [facility] )( Re-Evaluation/Progress #1Time of Re-Eval 2228)( Re-Eval [...] X1ED STA 07/298 DCr 07/29 IM 07/29 Ketorolac 30 MG X1ED STA 07/29 2114 DC 07/29 Tromethamine IV 07/30 2115 213 Electrolytic, Caloric, And Elvia Sig/Ayanna Start time Last Medication Dose Route Stop Time Status Admin Potassium Chloride 20 MEQ X1ED STA 07/29 2228 DC PO 07/29 2229 Sodium Chloride 1,000 ML X1ED STA 07/29 2113 DC 07/29 IV 07/29 2212 213 Gastrointestinal Drugs Sig/Ayanna Start [...] call to 911. at 0000 at 0024RPT #:[id number] OF REPORTEDSt. Clare Hospital department elpbsb6823-53-83K56:12:00H.[id number] VAvailable for patient fhfwGMYHBLMOUHQVQZ6750-94-09I87:24:32 [facility]"
[2023-03-23 19:04] LABS: Hematocrit 41.5 % (36.0-45.0); Lymphocytes % 12.7 % (15.3-44.8); MCV 84.1 fL (80-100); MPV 10.5 fL (7.6-11.3); Platelets 307 thou/uL (152-406); RBC Red Blood Cell Count 4.93 M/uL (3.86-4.86)
[2023-03-23 19:19] LABS: Bilirubin Total 0.6 mg/dL (0.2-1.0); Potassium 3.8 mEq/L (3.5-5.1); Protein, Total 7.9 g/dL (6.4-8.2)
[2023-03-23 20:29] LABS: Specific Gravity 1.017 (1.005-1.030)
[2023-03-23 20:41] LABS: Specific Gravity 1.017 (1.005-1.030); Urine Bacteria None Seen /HPF (<20); Urine Bilirubin NEGATIVE (Negative); Urine Blood 1+ (Negative); Urine Clarity Turbid (Clear); Urine Color Light-Yellow (Yellow); Urine Glucose NEGATIVE (Negative); Urine Mucus 2+ /HPF (None Seen); Urine Protein NEGATIVE (Negative); Urine Urobilinogen Normal (Normal); Urine pH 6.5 (5.0-7.0)
[2023-03-23 20:49] LABS: Barbiturates NEGATIVE (NEGATIVE); Benzodiazepines NEGATIVE (NEGATIVE); Cocaine NEGATIVE (NEGATIVE); METHAMPHETAM NEGATIVE (NEGATIVE); Methadone NEGATIVE (NEGATIVE); Opiates POSITIVE (NEGATIVE); Phencyclidine NEGATIVE (NEGATIVE); THC Cannibis POSITIVE (NEGATIVE)
--- NOTE | 2023-03-23 22:21 | RAD REPORT ---
EXAM DESCRIPTION: CT - Abdomen Pelvis W Contrast - 03/23/2023 9:45 pm CLINICAL HISTORY: Abdominal pain COMPARISON: February 2023 TECHNIQUE: Computed axial tomography of the abdomen pelvis was obtained. 100 cc Isovue-300 was admin istered intravenously. Oral contrast was not requested which limits evaluation of bowel and appendix All CT scans are performed using dose optimization technique as appropriate and may include automated exposure control or mA/KV adjustment according to patient size. FINDINGS: Mild fatty infiltration Spleen, pancreas, adrenal and left kidney appear unremarkable. Right renal cortical thinning may be secondary to prior inflammation Cholecystectomy There is no evidence of diverticulitis. No adnexal mass Small umbilical hernia IMPRESSION: No acute abnormality is displayed.
--- NOTE | 2023-03-23 22:41 | ER ---
Nurse's Notes [facility] Name: Efrem Pastor Age: 32 yrs Sex: Female : 1990 Arrival Date: 03/23/2023 Time: 16:48 Bed 11 Private MD: Diagnosis: Nausea with vomiting, unspecified;Abdominal pain, unspecified Presentation: 03/23 17:02 Chief complaint: Patient states: Vomiting, diarrhea and abdominal pain since this nj1 morning. Coronavirus screen: Vaccine status: Patient reports receiving the 2nd dose of the covid vaccine. Ebola Screen: Patient denies travel to an Ebola-affected area in the 21 days before illness onset. Initial Sepsis Screen: Does the patient meet any 2 criteria? HR > 90 bpm. No. Patient's initial sepsis screen is negative. Does the patient have a suspected source of infection? No. Patient's initial sepsis screen is negative. Risk Assessment: Do you want to hurt yourself or someone else? Patient reports no desire to harm self or others. Onset of symptoms was March 23, 2023. 17:02 Method Of Arrival: Ambulatory nj1 17:02 Acuity: BELINDA 3 nj1 Historical: - Allergies: 17:03 Haldol; nj1 17:03 Scopolamine HBr; nj1 - PMHx: 17:03 Gastroparesis; Irritable bowel syndrome; PTSD; Acute cutaneous nerve entrapment nj1 syndrome; ACNE (Unknown); - PSHx: 17:03 bilateral ureter attachment; Cholecystectomy; leep procedure; Lumpectomy of breast; nj1 right breast; - Immunization history:: Client reports receiving the 2nd dose of the Covid vaccine. - Social history:: Smoking status: Reported history of juuling and/or vaping. Screenin:40 [facility] ED Fall Risk Assessment (Adult) History of falling in the last 3 months, ko1 including since admission No falls in past 3 months (0 pts) Confusion or Disorientation No (0 pts) Intoxicated or Sedated No (0 pts) Impaired Gait No (0 pts) Mobility Assist Device Used No (0 pt) Altered Elimination No (0 pt) Score/Fall Risk Level 0 - 2 = Low Risk Oriented to surroundings, Maintained a safe environment, Educated pt \T\ family on fall prevention, incl call for assistance when getting out of bed, Assessed \T\ reinforced patient's understanding of fall precautions, Provided non-skid footwear, Hourly rounding (assess needs \T\ fall precautionary measures) done. Abuse screen: Denies threats or abuse. Denies injuries from another. Nutritional screening: No deficits noted. Tuberculosis screening: No symptoms or risk factors identified. Assessment: 18:40 General: Appears distressed, ill, Behavior is calm, cooperative, appropriate for age. ko1 Pain: Complains of pain in abdomen. GI: Pt is actively vomiting clear fluid. 19:30 Reassessment: Patient appears in no apparent distress at this time. No changes from km8 previously documented assessment. Patient and/or family updated on plan of care and expected duration. Pain level reassessed. Patient is alert, oriented x 3, equal unlabored respirations, skin warm/dry/pink. 20:30 Reassessment: Patient appears in no apparent distress at this time. Patient and/or 8 family updated on plan of care and expected duration. Pain level reassessed. Patient is alert, oriented x 3, equal unlabored respirations, skin warm/dry/pink. pt not vomiting at this time; but is complaining of pain. 21:12 Reassessment: Patient appears in no apparent distress at this time. No changes from km8 previously documented assessment. Patient and/or family updated on plan of care and expected duration. Pain level reassessed. Patient is alert, oriented x 3, equal unlabored respirations, skin warm/dry/pink. 23:52 Reassessment: Patient appears in no apparent distress at this time. No changes from previously documented assessment. Patient and/or family updated on plan of care and expected duration. Pain level reassessed. Patient is alert, oriented x 3, equal unlabored respirations, skin warm/dry/pink. Patient states feeling better. Patient states symptoms have improved. Vital Signs: 17:02 BP 155 / 117; Pulse 118; Resp 18; Temp 98.6(O); Pulse Ox 100% ; Weight 65.77 kg; Height nj1 5 ft. 2 in. ; Pain 9/10; 19:00 BP 144 / 107; Pulse 95; Resp 16; Pulse Ox 98% on R/A; km8 19:30 BP 131 / 92; Pulse 100; Resp 16; Pulse Ox 97% on R/A; km8 20:00 BP 143 / 105; Pulse 87; Resp 16; Pulse Ox 97% on R/A; km8 20:30 BP 143 / 105; Pulse 89; Resp 16; Pulse Ox 98% on R/A; km8 21:00 BP 155 / 112; Pulse 93; Resp 16; Pulse Ox 99% on R/A; km8 21:30 BP 133 / 100; Pulse 113; Resp 16; Pulse Ox 98% on R/A; km8 22:00 BP 131 / 101; Pulse 102; Resp 16; Pulse Ox 98% on R/A; km8 17:02 Body Mass Index 26.52 (65.77 kg, 157.48 cm) nj1 17:02 Pain Scale: Adult [facility] ED Course: 16:50 Patient arrived in ED. im 16:59 Billy Kilpatrick PA is PHCP. cp 16:59 Alcides Solomon MD is Attending Physician. cp 17:03 Triage completed. nj1 17:05 Arm band placed on right wrist. nj1 18:10 Rehana Lamb, BRUCE is Primary Nurse. ko1 18:40 Patient has correct armband on for positive identification. Allergy band placed. Bed in ko1 low position. Call light in reach. Side rails up X 1. Pulse ox on. NIBP on. Door closed. Noise minimized. Lights dimmed. Warm blanket given. 18:40 Inserted saline lock: 22 gauge in right antecubital area, using aseptic technique. ko1 Blood collected. 18:44 CBC with Diff Sent. ko1 18:44 CMP Sent. ko1 18:44 Lipase Sent. ko1 20:05 Radiology exam delayed due to test not completed at this time. nj 20:20 Radiology exam delayed due to test not completed at this time. fl 20:46 No provider procedures requiring assistance completed. km8 21:45 CT Abd/Pelvis - IV Contrast Only In Process Unspecified. EDMS 23:53 IV discontinued, intact, bleeding controlled, No redness/swelling at site. Pressure kl dressing applied. Administered Medications: 18:44 Drug: Famotidine IVP 20 mg IVP once; dilute with 10 mL 0.9% NaCl; give over 2 minutes ko1 Route: IVP; Site: right antecubital; 19:58 Follow up: Response: No adverse reaction [facility] [place] 18:44 Drug: Ondansetron IVP 4 mg IVP once; over 2 minutes Route: IVP; Site: right antecubital;ko1 19:00 Follow up: Response: No adverse reaction km8 18:44 Drug: metoCLOPramide IVP 10 mg IVP once; over 1 to 2 minutes Route: IVP; Site: right ko1 antecubital; 19:58 Follow up: Response: No adverse reaction km8 18:44 Drug: NS 0.9% IV 1000 ml IV at 1 bolus Per protocol; 1000 mL bolus Route: IV; Rate: 1 ko1 bolus; Site: right antecubital; 19:58 Follow up: IV Status: Completed infusion; IV Intake: 1000ml km8 18:45 Drug: diphenhydrAMINE IVP 25 mg IVP once Route: IVP; Site: right antecubital; ko1 19:58 Follow up: Response: No adverse reaction km8 20:20 Drug: Ondansetron IVP 4 mg IVP once; over 2 minutes Route: IVP; Site: right antecubital;km8 21:12 Follow up: Response: No adverse reaction km8 21:12 Drug: Ketorolac IVP 15 mg IVP once Route: IVP; Site: right antecubital; km8 21:29 Follow up: Response: No adverse reaction km8 21:35 Drug: Ativan IVP 1 mg IVP once Route: IVP; Site: right antecubital; km8 22:48 Follow up: Response: No adverse reaction km8 21:35 Drug: NS 0.9% IV 1000 ml IV at 1 bolus Per protocol; 1000 mL bolus Route: IV; Rate: 1 km8 bolus; Site: right antecubital; 22:47 Follow up: IV Status: Completed infusion; IV Intake: 1000ml km8 23:51 Drug: Promethazine IM 25 mg IM once Route: IM; Site: right deltoid; lg3 23:51 Follow up: Response: No adverse reaction lg3 Medication: 18:40 VIS not applicable for this client. ko1 Intake: 19:58 IV: 1000ml; Total: 1000ml. km8 22:47 IV: 1000ml; Total: 2000ml. km8 Outcome: 22:40 Discharge ordered by . cp 23:52 Discharged to home ambulatory, with friend, kl 23:52 Condition: stable 23:52 Discharge instructions given to patient, Instructed on discharge instructions, follow up and referral plans. medication usage, Demonstrated understanding of instructions, follow-up care, medications, Prescriptions given X 2, 23:53 Patient left the ED. ramiro Signatures: Dispatcher [employer] EDMS Diana Helm, RN RN Billy Wang PA PA cp Jordan, Nathan nj Able, Lacie RN RN lg3 Rehana Lamb RN RN ko1 Mara Byrd RN RN nj1 Chapis Denton Katie, RN RN km8
--- NOTE | 2023-03-23 22:41 | EDPHYS ---
Physician Documentation [facility] Name: Efrem Pastor Age: 32 yrs Sex: Female : 1990 Arrival Date: 03/23/2023 Time: 16:48 Bed 11 Private MD: ED Physician Alcides Solomon HPI: 03/23 17:20 This 32 yrs old Female presents to ER via Ambulatory with complaints of cp Nausea/Vomiting, Abdominal Pain. 17:20 The patient presents to the emergency department with nausea, that is moderate, cp vomiting, that is intermittent, diarrhea, that is intermittent, abdominal pain, of the abdomen diffusely, described as constant. Onset: The symptoms/episode began/occurred this morning. Possible causes: flare up of bowel problem, gastroparesis. Associated signs and symptoms: Pertinent negatives: constipation, fever, GI bleeding. Severity of symptoms: in the emergency department the symptoms are unchanged despite home interventions. The patient has experienced similar episodes in the past, multiple times. Historical: - Allergies: 17:03 Haldol; nj1 17:03 Scopolamine HBr; nj1 - PMHx: 17:03 Gastroparesis; Irritable bowel syndrome; PTSD; Acute cutaneous nerve entrapment nj1 syndrome; ACNE (Unknown); - PSHx: 17:03 bilateral ureter attachment; Cholecystectomy; leep procedure; Lumpectomy of breast; nj1 right breast; - Immunization history:: Client reports receiving the 2nd dose of the Covid vaccine. - Social history:: Smoking status: Reported history of juuling and/or vaping. ROS: 17:25 Constitutional: Negative for body aches, chills, fever, cp 17:25 Eyes: Negative for injury, pain, redness, and discharge, cp 17:25 ENT: Negative for drainage from ear(s), ear pain, sore throat, difficulty swallowing, difficulty handling secretions, 17:25 Cardiovascular: Negative for chest pain, 17:25 Respiratory: Negative for cough, shortness of breath, wheezing, 17:25 Abdomen/GI: Positive for abdominal pain, nausea, vomiting, and diarrhea, Negative for hematemesis, black/tarry stool, rectal bleeding, 17:25 : Negative for urinary symptoms, 17:25 Neuro: Negative for altered mental status, headache, syncope, weakness, 17:25 All other systems are negative, Exam: 17:30 Constitutional: The patient appears alert, awake, non-toxic, well developed, well cp nourished, in obvious distress, mildly distressed, uncomfortable, 17:30 Head/Face: Normocephalic, atraumatic. cp 17:30 Eyes: Periorbital structures: appear normal, Conjunctiva: normal, no exudate, no injection, Sclera: no appreciated abnormality, Lids and lashes: appear normal, bilaterally, 17:30 ENT: External ear(s): are unremarkable, Nose: is normal, Mouth: Lips: moist, Oral mucosa: moist, Posterior pharynx: Airway: no evidence of obstruction, patent, erythema, is not appreciated, exudate, is not appreciated, 17:30 Neck: ROM/movement: is normal, is supple, without pain, no range of motions limitations, no meningismus, 17:30 Chest/axilla: Inspection: normal, 17:30 Cardiovascular: Rate: tachycardic, Rhythm: regular, JVD: is not appreciated, 17:30 Respiratory: the patient does not display signs of respiratory distress, Respirations: normal, no use of accessory muscles, no retractions, labored breathing, is not present, Breath sounds: are clear throughout, no decreased breath sounds, no stridor, no wheezing, 17:30 Abdomen/GI: Inspection: abdomen appears normal, Bowel sounds: active, all quadrants, Palpation: soft, in all quadrants, moderate abdominal tenderness, in all quadrants, rebound tenderness, is not appreciated, involuntary guarding, is not appreciated, 17:30 Back: CVA tenderness, is absent, 17:30 Neuro: Orientation: to person, place \T\ time. Mentation: is normal, Motor: moves all fours, strength is normal, Gait: is steady, 20:35 ECG was reviewed by the Attending Physician. cp Vital Signs: 17:02 BP 155 / 117; Pulse 118; Resp 18; Temp 98.6(O); Pulse Ox 100% ; Weight 65.77 kg; Height nj1 5 ft. 2 in. ; Pain 9/10; 19:00 BP 144 / 107; Pulse 95; Resp 16; Pulse Ox 98% on R/A; km8 19:30 BP 131 / 92; Pulse 100; Resp 16; Pulse Ox 97% on R/A; km8 20:00 BP 143 / 105; Pulse 87; Resp 16; Pulse Ox 97% on R/A; km8 20:30 BP 143 / 105; Pulse 89; Resp 16; Pulse Ox 98% on R/A; km8 21:00 BP 155 / 112; Pulse 93; Resp 16; Pulse Ox 99% on R/A; km8 21:30 BP 133 / 100; Pulse 113; Resp 16; Pulse Ox 98% on R/A; km8 22:00 BP 131 / 101; Pulse 102; Resp 16; Pulse Ox 98% on R/A; km8 17:02 Body Mass Index 26.52 (65.77 kg, 157.48 cm) nj1 17:02 Pain Scale: Adult nj1 MDM: 17:07 Patient medically screened. cp 18:00 Differential diagnosis: Nonspecific abd pain, gastritis, pancreatitis, viral cp gastroenteritis, gastroenteritis, dehydration, electrolyte abnormality. 22:40 Data reviewed: vital signs, nurses notes, lab test result(s), EKG, radiologic studies, cp CT scan, plain films. 22:40 Consideration of Admission/Observation Escalation of care including cp admission/observation considered. Independent interpretation of the following test(s) in the Emergency Department EKG: See my EKG interpretation above. 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 Response to treatment: the patient's symptoms have markedly improved after treatment, vomiting resolved. will discharge to home for continued monitoring. Special discussion: Based on the patient's Hx, exam, and Dx evaluation, there is no indication for emergent surgery or inpatient Tx. It is understood by the patient/guardian that if the Sx's persist or worsen they need to return immediately for re-evaluation. 03/23 17:09 Order name: CBC with Diff; Complete Time: 19:56 cp 03/23 19:56 Interpretation: Normal except: RBC 4.93; RDW 19.3; KIMBERLY% 81.1; LYM% 12.7. cp 03/23 17:09 Order name: CMP; Complete Time: 19:56 cp 03/23 19:57 Interpretation: Normal except: GLUC 126; AST 53; ALT 110; ALK 153; GLOB 3.9; A/G 1.0. cp 02/ 17:09 Order name: Lipase; Complete Time: 19:56 cp 02/12 17:09 Order name: Test, Urine; Complete Time: 20:54 cp 02/ 17:09 Order name: Urinalysis w/ reflexes; Complete Time: 20:54 cp 02/12 20:54 Interpretation: Normal except: UCLA Turbid; UKET 2+; UBLD 1+; URBC 11-20. cp 02/ 19:02 Order name: UDS; Complete Time: 20:54 cp 02/12 20:54 Interpretation: Normal except: THC POSITIVE; OPI POSITIVE. cp 02/ 19:57 Order name: CT Abd/Pelvis - IV Contrast Only; Complete Time: 22:23 cp 02 22:23 Interpretation: Report reviewed. cp 02/ 20:02 Order name: EKG; Complete Time: 20:03 cp 02 17:09 Order name: IV Saline Lock; Complete Time: 18:44 cp 02 17:09 Order name: Labs collected and sent; Complete Time: 18:44 cp 02 20:02 Order name: EKG - Nurse/Tech; Complete Time: 20:35 cp 0212 22:24 Order name: PO challenge; Complete Time: 22:33 cp EC:35 Rate is 89 beats/min. Rhythm is regular. OH interval is normal. QRS interval is normal. cp QT interval is normal. T waves are Inverted in lead aVR. Interpreted by me. Reviewed by me. Administered Medications: 18:44 Drug: Famotidine IVP 20 mg IVP once; dilute with 10 mL 0.9% NaCl; give over 2 minutes ko1 Route: IVP; Site: right antecubital; 19:58 Follow up: Response: No adverse reaction 8 18:44 Drug: Ondansetron IVP 4 mg IVP once; over 2 minutes Route: IVP; Site: right antecubital;ko1 19:00 Follow up: Response: No adverse reaction 8 18:44 Drug: metoCLOPramide IVP 10 mg IVP once; over 1 to 2 minutes Route: IVP; Site: right ko1 antecubital; 19:58 Follow up: Response: No adverse reaction 8 18:44 Drug: NS 0.9% IV 1000 ml IV at 1 bolus Per protocol; 1000 mL bolus Route: IV; Rate: 1 ko1 bolus; Site: right antecubital; 19:58 Follow up: IV Status: Completed infusion; IV Intake: 1000ml 18:45 Drug: diphenhydrAMINE IVP 25 mg IVP once Route: IVP; Site: right antecubital; ko1 19:58 Follow up: Response: No adverse reaction 8 20:20 Drug: Ondansetron IVP 4 mg IVP once; over 2 minutes Route: IVP; Site: right antecubital;km8 21:12 Follow up: Response: No adverse reaction 8 21:12 Drug: Ketorolac IVP 15 mg IVP once Route: IVP; Site: right antecubital; km8 21:29 Follow up: Response: No adverse reaction 8 21:35 Drug: Ativan IVP 1 mg IVP once Route: IVP; Site: right antecubital; km8 22:48 Follow up: Response: No adverse reaction 8 21:35 Drug: NS 0.9% IV 1000 ml IV at 1 bolus Per protocol; 1000 mL bolus Route: IV; Rate: 1 km8 bolus; Site: right antecubital; 22:47 Follow up: IV Status: Completed infusion; IV Intake: 1000ml 8 23:51 Drug: Promethazine IM 25 mg IM once Route: IM; Site: right deltoid; lg3 23:51 Follow up: Response: No adverse reaction lg3 Disposition Summary: 03/23/23 22:40 Discharge Ordered Notes: Location: Home cp Problem: an acute exacerbation cp Symptoms: have improved cp Condition: Stable cp Diagnosis - Nausea with vomiting, unspecified cp - Abdominal pain, unspecified cp Followup: cp - With: Private Physician - When: 2 - 3 days - Reason: Recheck today's complaints Discharge Instructions: - Discharge Summary Sheet cp - Abdominal Pain, Adult cp - Nausea and Vomiting, Adult cp Forms: - Medication Reconciliation Form cp - Thank You Letter cp - Antibiotic Education cp - Prescription Opioid Use cp - Patient Portal Instructions cp - Leadership Thank You Letter cp Prescriptions: - promethazine 25 mg Rectal suppository - insert 1 suppository RECTAL route every 4 to 6 hours as needed for nausea and cp vomiting; 10 suppository; Refills: 0, Product Selection Permitted - promethazine 25 mg Oral Tablet - take 1 tablet ORAL route every 6 hours As needed; 20 tablet; Refills: 0, cp Product Selection Permitted Signatures: Dispatcher [employer] Billy Tapia PA PA cp Able, Lacie RN RN lg3 Rehana Lamb RN RN ko1 Mara Byrd RN RN nj1 Makayla Reardon, RN RN km8
[2023-03-24 01:44] VITALS: BP 131/101; TEMP 98.6; O2SAT 98
== END ==
LOC: ER 16:48
DX: R11.2 Nausea with vomiting, unspecified (principal); R10.9 Unspecified abdominal pain
CPT/HCPCS: 36415; 74177; 80053; 80307; 81001; 81025; 83690; 85025; 93005; 96361; 96372; 96374; 96375; 99284; J1200; J2405; J2550; J2765; J7030; Q9967

== ENCOUNTER → 2023-04-30 | Emergency (ER) | payer BC ==
[~2023-04-30] MED LIST changes: -DIPHENHYDRAMINE 50 MG/ML VIAL ONE; -FAMOTIDINE 20 MG/2 ML VIAL IV ONE; +HYDROCORTISONE SUC 100 MG INJ ONE; -LORazepam 2 MG/ML VIAL ONE; +METHYLPREDNISOLONE 125 MG INJ ONE; -METOCLOPRAMIDE 10 MG/2mL INJ ONE; +MORPHINE 4 MG/ML SYR ONE; -PROMETHAZINE INJ 25 MG/ML AMP ONE
[2023-04-30 02:46] LABS: Absolute Basophils 0.1 K/uL (0-0.5); Absolute Eosinophils 0.2 K/uL (0-0.5); Absolute Monocytes 0.7 K/uL (0.1-1.3); Absolute Neutrophil 2.6 K/uL (1.8-8.0); Eosinophils % 3.3 % (0-4.4); Hematocrit 37.5 % (36.0-45.0); Hemoglobin 12.2 g/dL (12.0-15.0); Lymphocytes % 36.4 % (15.3-44.8); MCH 26.2 pg (27.0-35.0); MCHC 32.5 g/dL (32.0-36.0); MCV 80.5 fL (80-100); MPV 10.7 fL (7.6-11.3); Monocytes % 12.7 % (3.3-12.3); Neutrophils % 46.6 % (41.7-73.7); Nucleated Red Blood Cells % 0.1 % (0-0); Platelets 254 thou/uL (152-406); RBC Red Blood Cell Count 4.65 M/uL (3.86-4.86)
[2023-04-30 03:06] LABS: Albumin 3.6 g/dL (3.4-5.0); Anion Gap 8.1 mEq/L (5.0-15.0); Bilirubin Total 0.5 mg/dL (0.2-1.0); Globulin 3.6 g/dL (2.3-3.5); Protein, Total 7.2 g/dL (6.4-8.2)
[2023-04-30 03:17] LABS: Potassium 4.1 mEq/L (3.5-5.1)
[2023-04-30 03:56] LABS: Specific Gravity 1.021 (1.005-1.030); Urine Bacteria None Seen /HPF (<20); Urine Bilirubin NEGATIVE (Negative); Urine Blood Trace (Negative); Urine Clarity Extremely Turbid (Clear); Urine Color Light-Yellow (Yellow); Urine Culture Reflex Order NOT NEEDED; Urine Glucose NEGATIVE (Negative); Urine Ketones 2+ (Negative); Urine Microscopic Reflex YN ORDER UMIC; Urine Mucus 1+ /HPF (None Seen); Urine Nitrite NEGATIVE (Negative); Urine Protein TRACE (Negative); Urine RBC <5 /HPF (None Seen); Urine Urobilinogen Normal (Normal); Urine WBC <5 /HPF (<5); Urine pH 6.5 (5.0-7.0)
--- NOTE | 2023-04-30 05:47 | EDPHYS ---
Physician Documentation [facility] Name: Efrem Pastor Age: 32 yrs Sex: Female : 1990 Arrival Date: 04/30/2023 Time: 01:34 Bed 5 Private MD: Clarence Cooper ED Physician Mario Santo HPI: 04/29 01:56 This 32 yrs old Female presents to ER via Unassigned with complaints of Pain sp4 All Over. 01:56 Allergies: Haldol; Scopolamine HBr; Home Meds: Protonix Oral; [place] Oral; Phenergan sp4 Oral; PMHx: Gastroparesis; Irritable bowel syndrome; PTSD PSHx: bilateral ureter attachment; Cholecystectomy; leep procedure; Lumpectomy of breast; right breast; . 05:31 Patient is 32-year-old female with past medical history gastroparesis, PTSD, IBS, GERD, sp4 depression, anxiety presents with complaint of diffuse pain. Patient states pain has intensified this morning. Patient is on buprenorphine patch daily for pain control. Also on meloxicam. Patient was admitted here 12/31/2022 throat 01/13/2023 for syncope, oral ulcers, and pain with swallowing. Also she had symptoms of nausea vomiting headache chills fever generalized abdominal pain rash. Patient was then managed and evaluated for fever skin rash joint pains and generalized weakness. Patient has had multiple aphthous ulcers. Oral thrush. Multiple evaluations for infectious etiologies were negative. Viral testing and LP were negative. Esoteric viral infections were negative. CRP elevated with patient was started on steroids and improved. Vasculitis was considered. WALTER was negative. Double-stranded DNA was negative. P-ANCA c-ANCA were negative. C-reactive protein was 119, and in the other words no background etiology was found. Patient's medications include Lunesta, Xanax, Paxil, Ensure, fluconazole, hydrocodone, lidocaine, pantoprazole, sucralfate, Valtrex, prednisone.. [employer]OR [employer]: 03:47 LMP 04/30/2023, unknown as9 Historical: - Allergies: 02:18 Haldol; jb4 02:18 Scopolamine HBr; jb4 - Home Meds: 02:18 buprenorphine transdermal [Active]; paroxetine oral [Active]; meloxicam oral [Active]; jb4 - PMHx: 02:18 Gastroparesis; Acute cutaneous nerve entrapment syndrome; ACNE (Unknown); Irritable jb4 bowel syndrome; PTSD; - PSHx: 02:18 bilateral ureter attachment; Cholecystectomy; Cholecystectomy; leep procedure; jb4 Lumpectomy of breast; right breast; - Immunization history:: Adult Immunizations up to date. - Social history:: Smoking status: Reported history of juuling and/or vaping. - Family history:: not pertinent. ROS: 05:43 Constitutional: Negative for fever, chills, and weight loss, positive for generalized sp4 pain 05:43 All other systems are negative, Exam: 05:43 Constitutional: This is a well developed, well nourished patient who is awake, alert, sp4 and in no acute distress. Head/Face: Normocephalic, atraumatic. Eyes: Pupils equal round and reactive to light, extra-ocular motions intact. Lids and lashes normal. Conjunctiva and sclera are not injected. Cornea within normal limits. Periorbital areas with no swelling, redness, or edema. ENT: Nares patent. No nasal discharge, no septal abnormalities noted. Tympanic membranes are normal and external auditory canals are clear. Oropharynx with no redness, swelling, or masses, exudates, or evidence of obstruction, uvula midline. Mucous membranes moist. Neck: Trachea midline, no thyromegaly or masses palpated, and no cervical lymphadenopathy. Supple, full range of motion without nuchal rigidity, or vertebral point tenderness. Chest/axilla: Normal chest wall appearance and motion. Nontender with no deformity. No lesions are appreciated. Cardiovascular: Regular rate and rhythm with a normal S1 and S2. No gallops, murmurs, or rubs. Normal PMI, no JVD. No pulse deficits. Respiratory: Lungs have equal breath sounds bilaterally, clear to auscultation and percussion. No rales, rhonchi or wheezes noted. No increased work of breathing, no retractions or nasal flaring. Abdomen/GI: Soft, with normal bowel sounds. No distension or tympany. No guarding or rebound. No evidence of tenderness throughout. Back: No spinal tenderness. No costovertebral tenderness. Skin: Warm, dry with normal turgor. Normal color with no rashes, no lesions, and no evidence of cellulitis. MS/ Extremity: Pulses equal, no cyanosis. Neurovascular intact. Full, normal range of motion. Neuro: Awake and alert, GCS 15, oriented to person, place, time, and situation. Cranial nerves II-XII grossly intact. Motor strength 5/5 in all extremities. Sensory grossly intact. Vital Signs: 02:15 BP 126 / 68; Pulse 91; Resp 18; Temp 98.5(O); Pulse Ox 100% on R/A; Weight 65.77 kg jb4 (R); Height 5 ft. 2 in. (R); Pain 9/10; 02:15 BP 126 / 96; Pulse 85; Resp 18; Temp 98.3; Pulse Ox 96% on R/A; as9 03:05 BP 116 / 85; Pulse 88; Resp 20; Pulse Ox 96% on R/A; as9 03:30 BP 122 / 87; Pulse 87; Resp 20; Pulse Ox 95% on R/A; as9 04:30 BP 117 / 81; Pulse 81; Resp 17 S; Pulse Ox 99% on R/A; ha1 05:30 BP 120 / 87; Pulse 78; Resp 17 S; Temp 98.7; Pulse Ox 99% on R/A; ha1 05:45 BP 118 / 82; Pulse 78; Resp 18; Temp 98.5; as9 02:15 Body Mass Index 26.52 (65.77 kg, 157.48 cm) jb4 02:15 Pain Scale: Adult jb4 MDM: 01:57 Patient medically screened. sp4 05:43 Differential Diagnosis altered mental status, sepsis, flu. Data reviewed: vital signs, sp4 nurses notes, old medical records, lab test result(s). Consideration of Admission/Observation Escalation of care including admission/observation considered. ED course: Patient has improved after medication administration in the ER. Discharge summary from January 2023 states that patient's symptoms have improved with prednisone p.o. and steroid administration . Will provide short course of prednisone 40 mg daily for 5 days. 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 . 04/29 02:09 Order name: CBC with Diff; Complete Time: 05:35 sp4 04/29 02:09 Order name: CMP; Complete Time: 05:35 sp4 04/29 02:09 Order name: Lipase; Complete Time: 05:35 sp4 04/29 02:09 Order name: Test, Urine; Complete Time: 05:35 sp4 04/29 02:09 Order name: Urinalysis w/ reflexes; Complete Time: 05:35 sp4 04/29 02:09 Order name: IV Saline Lock; Complete Time: 02:34 sp4 04/29 02:09 Order name: Labs collected and sent; Complete Time: 02:34 sp4 Administered Medications: 03:30 Drug: NS 0.9% IV 1000 ml IV at 1 bolus Per protocol; 1000 mL bolus Route: IV; Rate: 1 as9 bolus; Site: right antecubital; 05:56 Follow up: Response: No adverse reaction; IV Status: Completed infusion; IV Intake: ha1 1000ml 03:30 Drug: Ondansetron IVP 4 mg IVP once; over 2 minutes Route: IVP; Site: right antecubital;as9 05:38 Follow up: Response: No adverse reaction; Marked relief of symptoms as9 03:30 Drug: morphine IVP or IV 8 mg IVP once over 4 mins Route: IVP; Infused Over: 4 mins; as9 Site: right antecubital; 05:39 Follow up: Response: No adverse reaction; Marked relief of symptoms; Pain is decreased; as9 RASS: Alert and Calm (0) 03:30 Drug: Solu-CORTEF IVP 100 mg IVP once Route: IVP; Site: right antecubital; as9 04:00 Follow up: Response: No adverse reaction; Marked relief of symptoms ha1 04:02 Drug: TORadol - Ketorolac IVP 30 mg IVP once Route: IVP; Site: right antecubital; as9 05:38 Follow up: Response: No adverse reaction; Marked relief of symptoms; Pain is decreased as9 Disposition Summary: 04/30/23 05:46 Discharge Ordered Notes: Location: Home sp4 Problem: new sp4 Symptoms: have improved sp4 Condition: Stable sp4 Diagnosis - Acute generalized pain, history of IBS, steroid responsive condition , hyperalgesia sp4 Followup: sp4 - With: Clarence Cooper DO - When: 7 - 10 days - Reason: Recheck today's complaints Discharge Instructions: - Discharge Summary Sheet sp4 - Managing Pain Without Opioids sp4 Forms: - Patient Portal Instructions sp4 Prescriptions: - Prednisone 20 mg Oral Tablet - take 2 tablets ORAL route once daily for 5 days; 10 tablet; Refills: 0, Product sp4 Selection Permitted Signatures: Dispatcher [employer] Ulises Baum RN RN jb4 Mario Santo MD MD sp4 Chino Wright RN RN as9 Linda Block RN ha1
--- NOTE | 2023-04-30 05:47 | ER ---
Nurse's Notes [facility] Name: Efrem Pastor Age: 32 yrs Sex: Female : 1990 Arrival Date: 04/30/2023 Time: 01:34 Bed 5 Private MD: Clarence Cooper Diagnosis: Acute generalized pain, history of IBS, steroid responsive condition , hyperalgesia Presentation: 04/29 02:15 Chief complaint: Patient states: I was recently admitted for an autoimmune disorder. jb4 Tonight my hips, knees, and feet are hurting worse than before and the meds are not helping. Coronavirus screen: At this time, the client does not indicate any symptoms associated with coronavirus-19. Ebola Screen: No symptoms or risks identified at this time. Initial Sepsis Screen: Does the patient meet any 2 criteria? HR > 90 bpm. Yes Does the patient have a suspected source of infection? No. Patient's initial sepsis screen is negative. Risk Assessment: Do you want to hurt yourself or someone else? Patient reports no desire to harm self or others. Onset of symptoms was April 30, 2023. Transition of care: patient was not received from another setting of care. 02:15 Method Of Arrival: Ambulatory jb4 02:15 Acuity: BELINDA 3 jb4 Triage Assessment: 02:18 General: Appears in no apparent distress. uncomfortable, Behavior is calm, cooperative, jb4 appropriate for age. Pain: Complains of pain in left hip, right hip, right foot, left foot, right leg and left leg. Neuro: Level of Consciousness is awake, alert, obeys commands, Oriented to person, place, time, situation. Cardiovascular: Patient's skin is warm and dry. Respiratory: Airway is patent Respiratory effort is even, unlabored, Respiratory pattern is regular, symmetrical. 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 - Social history:: Smoking status: Reported history of juuling and/or vaping. - Family history:: not pertinent. Screenin:46 [facility] ED Fall Risk Assessment (Adult) History of falling in the last 3 months, as9 including since admission No falls in past 3 months (0 pts) Confusion or Disorientation No (0 pts) Intoxicated or Sedated No (0 pts) Impaired Gait No (0 pts) Mobility Assist Device Used No (0 pt) Altered Elimination No (0 pt) Score/Fall Risk Level 0 - 2 = Low Risk. Abuse screen: Denies threats or abuse. Nutritional screening: No deficits noted. Tuberculosis screening: No symptoms or risk factors identified. Assessment: 02:15 Reassessment: patient states pain at the back, hip and legs with 9/10 pain score. as9 02:15 General: Appears in no apparent distress. Behavior is calm, cooperative, appropriate as9 for age. Pain: Complains of pain in back, right leg and left leg and left foot and right foot and right hip and left hip Pain currently is 9 out of 10 on a pain scale. Neuro: Level of Consciousness is awake, alert, obeys commands, Oriented to person, place, time, situation, Appropriate for age. Cardiovascular: Capillary refill < 3 seconds Patient's skin is warm and dry. Respiratory: Airway is patent Respiratory effort is even, unlabored, Respiratory pattern is regular, symmetrical. GI: No signs and/or symptoms were reported involving the gastrointestinal system. : No signs and/or symptoms were reported regarding the genitourinary system. EENT: No signs and/or symptoms were reported regarding the EENT system. Derm: Skin Skin is pink, warm \T\ dry. Musculoskeletal: Circulation, motion, and sensation intact. Range of motion: intact in all extremities. 03:15 Reassessment: Patient and/or family updated on plan of care and expected duration. Pain ha1 level reassessed. Patient is alert, oriented x 3, equal unlabored respirations, skin warm/dry/pink. Patient states symptoms have improved. 04:30 Reassessment: Patient and/or family updated on plan of care and expected duration. Pain ha1 level reassessed. Patient is alert, oriented x 3, equal unlabored respirations, skin warm/dry/pink. 05:30 Reassessment: Patient and/or family updated on plan of care and expected duration. Pain ha1 level reassessed. Patient is alert, oriented x 3, equal unlabored respirations, skin warm/dry/pink. Patient states feeling better. Patient states symptoms have improved. Vital Signs: 02:15 BP 126 / 68; Pulse 91; Resp 18; Temp 98.5(O); Pulse Ox 100% on R/A; Weight 65.77 kg jb4 (R); Height 5 ft. 2 in. (R); Pain 9/10; 02:15 BP 126 / 96; Pulse 85; Resp 18; Temp 98.3; Pulse Ox 96% on R/A; as9 03:05 BP 116 / 85; Pulse 88; Resp 20; Pulse Ox 96% on R/A; as9 03:30 BP 122 / 87; Pulse 87; Resp 20; Pulse Ox 95% on R/A; as9 04:30 BP 117 / 81; Pulse 81; Resp 17 S; Pulse Ox 99% on R/A; ha1 05:30 BP 120 / 87; Pulse 78; Resp 17 S; Temp 98.7; Pulse Ox 99% on R/A; ha1 05:45 BP 118 / 82; Pulse 78; Resp 18; Temp 98.5; as9 02:15 Body Mass Index 26.52 (65.77 kg, 157.48 cm) jb4 02:15 Pain Scale: Adult jb4 ED Course: 01:36 Patient arrived in ED. mr 01:36 Clarence Cooper DO is Private Physician. mr 01:55 Mario Santo MD is Attending Physician. sp4 02:17 Triage completed. jb4 02:18 Arm band placed on right wrist. jb4 02:34 CBC with Diff Sent. ha1 02:34 CMP Sent. ha1 02:34 Lipase Sent. ha1 02:34 Inserted saline lock: 20 gauge in right antecubital area, using aseptic technique. as9 Blood collected. 03:48 Patient has correct armband on for positive identification. Placed in gown. Bed in low as9 position. Call light in reach. Side rails up X 1. 05:45 Clarence Cooper DO is Referral Physician. sp4 05:57 No provider procedures requiring assistance completed. ha1 06:02 Provided Education on: discharge instruction, medication prescription explained well as9 and given to the patient. 06:02 IV discontinued, intact, bleeding controlled, No redness/swelling at site. Pressure as9 dressing applied. Administered Medications: 03:30 Drug: NS 0.9% IV 1000 ml IV at 1 bolus Per protocol; 1000 mL bolus Route: IV; Rate: 1 as9 bolus; Site: right antecubital; 05:56 Follow up: Response: No adverse reaction; IV Status: Completed infusion; IV Intake: ha1 1000ml 03:30 Drug: Ondansetron IVP 4 mg IVP once; over 2 minutes Route: IVP; Site: right antecubital;as9 05:38 Follow up: Response: No adverse reaction; Marked relief of symptoms as9 03:30 Drug: morphine IVP or IV 8 mg IVP once over 4 mins Route: IVP; Infused Over: 4 mins; as9 Site: right antecubital; 05:39 Follow up: Response: No adverse reaction; Marked relief of symptoms; Pain is decreased; as9 RASS: Alert and Calm (0) 03:30 Drug: Solu-CORTEF IVP 100 mg IVP once Route: IVP; Site: right antecubital; as9 04:00 Follow up: Response: No adverse reaction; Marked relief of symptoms ha1 04:02 Drug: TORadol - Ketorolac IVP 30 mg IVP once Route: IVP; Site: right antecubital; as9 05:38 Follow up: Response: No adverse reaction; Marked relief of symptoms; Pain is decreased as9 Medication: 03:47 VIS not applicable for this client. as9 Intake: 05:56 IV: 1000ml; Total: 1000ml. ha1 Outcome: 05:46 Discharge ordered by . sp4 06:01 Discharged to home ambulatory, as9 06:01 Condition: good 06:01 Discharge instructions given to patient, Instructed on discharge instructions, follow up and referral plans. medication usage, Demonstrated understanding of instructions, follow-up care, medications, Prescriptions given X 1, 06:04 Patient left the ED. ha1 Signatures: Kira Murillo, Ulises Gan, RN RN jb4 Linda Block, BRUCE RN ha1 Mario Santo MD MD sp4 Chino Wright RN RN as9 Corrections: (The following items were deleted from the chart) 06:00 05:38 Response: No adverse reaction as9 as9
[2023-04-30 06:32] VITALS: BP 120/87; TEMP 98.7; O2SAT 99
== END ==
LOC: ER 01:34
DX: R52 Pain, unspecified (principal); K58.9 Irritable bowel syndrome, unspecified; R20.8 Other disturbances of skin sensation; L27.8 Dermatitis due to other substances taken internally; F43.10 Post-traumatic stress disorder, unspecified
CPT/HCPCS: 96361; 85025; 81001; 36415; 81025; 83690; 80053; 96375; 96374; 99284; J1720; J2405; J7030; J2930

== ENCOUNTER 2023-05-13 01:59 | Emergency (ER) | payer MEDICARE, SELFPAY ==
--- OUTSIDE RECORDS SUMMARY | 2023-05-13 02:03 | XMS REPORT | Continuity of Care Document ---
Author Name Unknown Address [address] [facility] [address] [place] [address] [facility] thconnect Address [address] [facility]. [address] [place] [address] Care Team Providers Care Adolescent Coordinator Name Role Phone Kelton Daniels Jr. Primary Care Physician GIOVANY HAGER Attending Clinician Unavailable CAIT BRAGG Attending Clinician Unavailable Jose Maki Attending Clinician Unavailable LAB90 Attending Clinician Unavailable Marylou Johnson NP Attending Clinician [phone] Ted Schultz Attending Clinician Unavailable Kaelyn Peguero Attending Clinician Unavailable Physician, No Primary or Family Admitting Clinic monse Unavailable UNDEFINED Admitting Clinician Unavailable Payers Payer Name Policy Type Policy Number Effective Date Expirati on Date Source [place] [id number] 2022 00:00:00 2023 00:00:00 BCBS 2 [id number] 2023 00:00:00 Problems Condition Name Condition Details [...] reaction s Active Other - See comments 2022-02- 00:00: 00 Dystonic reactions [facility] Scopolam ine Propensi ty to adverse reaction s Active Other - See comments 2022-02 00:00: 00 Visual changes [facility] HALOPERI DOL DRUG INGREDI Active Med Other-Cmnt 2022-02 00:00: 00 [facility] SCOPOLAM INE DRUG INGREDI Active Other-Cmnt 2022-02 00:00: 00 [facility] haloperi dol DA Active SV HIVES - 00:00: 00 [facility] scopolam [facility]e DA Active SV HIVES 06-11 00:00: 00 [facility] No Known Allergie s DA Active U 02-09 00:00: 00 [facility] No Known Allergie s DA Active U 06-24 00:00: 00 [facility] No Known Allergie s DA Active U 06-24 00:00: 00 [facility] scopolam ine DA Active [place] 4-10 00:00: 00 [facility] scopolam ine DA Active [place] RASH-ES 4-10 00:00: 00 [facility] No Known Allergie s DA Active U 07-29 00:00: 00 [facility] No Known Allergie s DA Active U 07-29 00:00: 00 [facility] No Known Drug Intolera nces DA Active U 10-24 00:00: 00 [facility] No Known Drug Intolera nces DA Active U NONE 10-24 00:00: 00 [facility] NO KNOWN ALLERGIE S Drug Class Active [facility] Social History Social Habit Start Date Stop Date Quantity Comments Source Sexual orientation Opal Enrique - External History of tobacco use Cigarette Smoker Laura shi - External Alcohol intake 2023-02-24 00:00:00 2023-02-24 00:00:00 Ex-drinker (finding) Laura Enrique - External Tobacco use and exposure 2023-01-27 00:00:00 2023-01-27 00:00:00 Smokeless tobacco non-user Laura Enrique - External Education - What is the highest level of school you have completed or the highest degree you have received? 2023-01-27 00:00:00 2023-01-27 00:00:00 Associate degree: academic program Laura Enrique - External Cigarettes smoked current (pack per day) - Reported 2023-01-27 00:00:00 2023-01-27 00:00:00 Laura Enrique - External Cigarette pack-years 2023-01-27 00:00:00 2023-01-27 00:00:00 Laura Enrique - Alin History of Social function 2023-01-26 00:00:00 2023-01-26 00:00:00 Laura Enrique - External Sex Ass[birth year] At 1990 00:00:00 1990 00[birth year]00:00 Laura Enrique - External Smoking Status Start Date Stop Date Source Tobacco smoking consumption unknown [facility] Ex-smoker 2023-01-27 00:00:00 2023-01-27 00:00:00 Laura Enrique - External Medications Ordered Medication Name Filled Medication Name Start Date Stop Date Current Medication? Ordering Clinician Indication Dosage Frequency Signature (SIG) Comments Components Source Brexpiprazo le (Rexulti) 2 MG oral Tablet 02-24 11:47: 34 Yes 2mg Take 2 mg by mouth daily. [facility] HYDROcodone -Acetaminop hen 10-325 MG oral Tablet 02-24 00:00: 00 Yes [id number] 1{tbl} Q.5D Take 1 tablet by mouth 2 times daily as needed for pain. Laura [facility] Methocarbam ol 500 MG oral Tablet 02-24 00:00: 00 Yes [id number] 500mg QD Take 1 tablet (500 mg total) by mouth nightly as needed (muscle spasm). Laura hall Methocarbam ol 500 MG oral Tablet 02-17 00:00: 00 02-24 00:00 :00 No Laura hall Celecoxib 200 MG oral Capsule 1-09 00:00: 00 02-24 00:00 :00 No TAKE ONE (1) CAPSULE(S) BY MOUTH ONCE A DAY WITH FOOD. Laura hall Promethazin e HCl (PHENERGAN) 25 MG oral Tablet 1-04 00:00: 00 Yes [id number] 25mg QD Take 1 tablet (25 mg total) by mouth daily as needed for nausea. Laura [facility] Valacyclovi r HCl (Valtrex) 500 MG oral Tablet 2022-02 2 00:00: 00 Yes [id number] 500mg Take 1 tablet (500 mg total) by mouth daily. Laura hall Brexpiprazo le (Rexulti) 2 MG oral Tablet 2022-02 14:15: 48 Yes 2mg Take 2 mg by mouth daily. Laura hall predniSONE (DELTASONE) 20 MG oral tablet 2022-02 2- 00:00: 00 02-24 00:00 :00 No 20mg Take 1 tablet (20 mg total) by mouth 2 times daily. Laura [facility] HYDROcodone -Acetaminop hen 10-325 MG oral Tablet 2022-02 2-03 00:00: 00 02-24 00:00 :00 No 1{tbl} Q.25D Take 1 tablet by mouth every 6 hours as needed for pain (joint murray and post LP). Laura hall dexamethaso ne sod phos PF injection 6 mg 2022-02 02:30: 00 12-27 01:51 :00 No 6mg 6 mg, Intravenou s, ONCE, 1 dose, On Thu12/26/22 at 2030, 1 mL [facility] penicillin g benzathine (BICILLIN L-A) injection 1.2 Million Units 2022-02 01:45: 00 12-27 01:53 :00 No 1.210 1.2 Million Units, Intramuscu lar, ONCE, 1 dose, On Thu12/26/22 at 1945, RONNIE
Re ason for Anti-Infec tive: Empiric Therapy for Suspected Infection< br>Empiric Therapy Site: HEENT
D uration of therapy: Once (ED) [facility] acetaminoph en (TYLENOL) tablet 650 mg 2022-02 01:45: 00 12-27 01:50 :00 No 650mg 650 mg, Oral, ONCE, 1 dose, On Thu12/26/22 at 1945, RONNIE [facility] ketorolac (TORADOL) injection 30 mg 2022-02 00:45: 00 12-27 00:59 :00 No 30mg 30 mg, Intramuscu lar, ONCE, 1 dose, On Thu12/26/22 at 1845, [facility] hydrocortis one 1 mg/4 mL in nystatin suspension- diphenhydrA MINE solution suspension 2022-02 00:00: 00 12-30 05:59 :00 No [id number] 15mL Take 15 mL by mouth every 6 (six) hours as needed for Pain (scale 4-6) for up to [address] [facility] Famotidine (PEPCID) 20 MG oral tablet 2022-02 1-08 00:00: 00 02-24 00:00 :00 No 20mg Take 1 tablet (20 mg total) by mouth daily. Laura hall Paroxetine HCl 40 MG oral Tablet 8-03 00:00: 00 Yes 40mg Take 1 tablet (40 mg total) by mouth every morning. Laura hall Alprazolam (Xanax) 0.5 MG oral Tablet 7-03 00:00: 00 02-24 00:00 :00 No .5mg Q.5D Take 1 tablet (0.5 mg total) by mouth 2 times daily as needed for anxiety (PTSD, [place] ). Laura hall Pantoprazol e Sodium (Protonix) 40 MG oral Tablet Delayed Response 4-22 00:00: 00 Yes 40mg Take 1 tablet (40 mg total) by mouth daily. Laura Iva Remya l Eszopiclone 1 MG oral Tablet 05-30 00:00: 00 Yes 3mg Take 3 tablets (3 mg total) by mouth at bedtime. Laura Iva Perdomo Externa l Immunizations Ordered Immunization Name Filled Immunization Name Date Status Comments Source Influenza Virus Vaccine, Split, up to age 3 Unknown Completed Laura Mniorold - External HPV 4 (Human Papillomavirus) Unknown Completed Laura Abreu ld - External HPV 9 (Human Papillomavirus) Unknown Completed Laura Minoro ld - External Influenza Virus Vaccine, Split, up to age 3 Unknown Completed Laura Enrique - External HPV 4 (Human Papillomavirus) Unknown Completed Laura Abreu ld - External HPV 9 (Human Papillomavirus) Unknown Completed Laura Abreu ld - External Vital Signs Vital Name Observation Time Observation Value Comments S ource Systolic blood pressure 2023-02-24 17:40:00 110 mm[Hg] Laura Brantleyybo ld - External Diastolic blood pressure 2023-02-24 17:40:00 62 mm[Hg] Laura Brantleyybo ld - External Heart rate 2023-02-24 17:40:00 106 /min Kelse y Seybold - External Body temperature 2023-02-24 17:40:00 36.61 Caitlyn Laura Brantleyybold - External Respiratory rate 2023-02-24 17:40:00 16 /min Laura Brantleyybold - External Body height 2023-02-24 17:40:00 157.5 cm Beatris valle Seybold - External Body weight 2023-02-24 17:40:00 70.818 kg Beatris ey Seybold - External BMI 2023-02-24 17:40:00 28.56 kg/m2 Beatris ey Seybold - External Systolic blood pressure 2023-01-27 16:54:00 115 mm[Hg] Laura Brantleyybo ld - External Diastolic blood pressure 2023-01-27 16:54:00 73 mm[Hg] Laura Brantleyybo ld - External Heart rate 2023-01-27 16:54:00 116 /min Kelse y Seybold - External Body temperature 2023-01-27 16:54:00 37.78 Caitlyn Laura Brantleyybold - External Body height 2023-01-27 16:54:00 157.5 cm Beatris ey Seybold - External Body weight 2023-01-27 16:54:00 65.227 kg Beatris ey Seybold - External BMI 2023-01-27 16:54:00 26.30 kg/m2 Beatris ey Seybold - External Systolic blood pressure 2022-12-27 02:16:00 111 mm[Hg] [facility] Diastolic blood pressure 2022-12-27 02:16:00 82 mm[Hg] [facility] Heart rate 2022-12-27 02:16:00 93 /min [facility] Body temperature 2022-12-27 02:16:00 37.56 Caitlyn [facility] Respiratory rate 2022-12-27 02:16:00 20 /min [facility] Oxygen saturation in Arterial blood by Pulse oximetry 2022-12-27 02:16:00 96 /min [facility] Body height 2022-12-26 23:57:00 157.5 cm [facility] Body weight 2022-12-26 23:57:00 58.968 kg [facility] BMI 2022-12-26 23:57:00 23.78 kg/m2 [facility] Procedures Procedure Date / Time Performed Performing Clinicia n Source CBC WITH DIFF 2022-12-27 01:49:00 Marylou Johnson [facility] RAPID STREP SCREEN FOR GROUP A 2022-12-27 00:59:00 Marylou Johnson [facility] NOTICE OF PRIVACY PRACTICES 2022-12-26 23:28:27 Doctor Unassigned, [facility] CONSENT/REFUSAL FOR DIAGNOSIS AND TREATMENT 2022-12-26 23:27:35 Doctor Unassigned, [facility] Encounters Start Date/Time End Date/Time Encounter Type Admission Type Attending Clinicians Care Facility Care Department Encounter ID Source 2020-06-24 15:53:22 Inpatient [facility] [id number] 2020-05-19 11:42:02 [facility] [id number] 2019-07-30 21:08:00 Inpatient HC[facility] ER [id number] [facility] 2023-05-04 14:30:00 2023-05-04 14:30:00 Outpatient PREZAGIOVANY Garcia LAURA PIZANO [id number] [facility] 2023-05-04 11:15:00 2023-05-04 11:15:00 Outpatient PREZAS, GIOVANY PIZANO [id number] [facility] 2023-05-04 11:00:00 2023-05-04 11:00:00 Outpatient LOUISE BRAGGR [facility] [id number] [facility] 2023-04-22 00:00:00 2023-04-22 00:00:00 Outpatient PREZAS, GIOVANY PIZANO [id number] Laura [facility] 2023-04-14 02:00:00 2023-04-14 03:25:00 Emergency EM Glynn Jose HC[facility] ER [id number] [facility] 2023-04-10 00:00:00 2023-04-10 00:00:00 Outpatient PREZAS, GIOVANYLEDY PIZANO [id number] [facility] 2023-03-27 09:00:00 2023-03-27 09:00:00 Outpatient PREZAS, GIOVANY PIZANO [id number] Laura [facility] 2023-03-27 00:00:00 2023-03-27 00:00:00 Outpatient PREZAS, GIOVANY PIZANO [id number] Laura [facility] 2023-03-27 00:00:00 2023-03-27 00:00:00 Outpatient PREZAS, GIOVANY PIZANO [id number] Laura [facility] 2023-03-26 00:00:00 2023-03-26 00:00:00 Outpatient PREZAS, GIOVANY PIZANO [id number] Laura [facility] 2023-03-26 00:00:00 2023-03-26 00:00:00 Outpatient PREZAS, GIOVANY PIZANO [id number] [facility] 2023-03-25 14:00:00 2023-03-25 14:00:00 Outpatient PREZAS, GIOVANY DIALLOSEY [id number] Laura [facility] 2023-03-10 00:00:00 2023-03-10 00:00:00 Outpatient PREZAS, GIOVANY PIZANO LAURA [id number] Laura [facility] 2023-03-09 00:00:00 2023-03-09 00:00:00 Outpatient PREZAS, GIOVANY DIALLOSEY [id number] Laura [facility] 2023-03-04 00:00:00 2023-03-04 00:00:00 Outpatient PREZAS, GIOVANY PIZANO [facility] [id number] [facility] 2023-03-03 00:00:00 2023-03-03 00:00:00 Outpatient PREZAS, GIOVANY DIALLOHUMPHREY PIZANO [id number] [facility] 2023-03-02 00:00:00 2023-03-02 00:00:00 Outpatient PREZAS, GIOVANY PIZANO LAURA [id number] [facility] 2023-03-02 00:00:00 2023-03-02 00:00:00 Outpatient PREZAS, GIOVANY PIZANO LAURA [id number] [facility] 2023-03-02 00:00:00 2023-03-02 00:00:00 Outpatient PREZAS, GIOVANY DIALLOHUMPHREY PIZANO [id number] [facility] 2023-03-02 00:00:00 2023-03-02 00:00:00 Outpatient PREZAS, GIOVANY DIALLOHUMPHREY PIZANO [id number] [facility] 2023-02-27 00:00:00 2023-02-27 00:00:00 Outpatient PREZAS, GIOVANY DIALLOHUMPHREY PIZANO [id number] [facility] 2023-02-25 00:00:00 2023-02-25 00:00:00 Outpatient PREZAS, GIOVANY LAURA PIZANO [id number] Laura Seybold 2023-02-24 11:30:00 2023-02-24 11:30:00 Outpatient PREZAS, GIOVANY LAURA PIZANO [id number] [facility] 2023-02-18 00:00:00 2023-02-18 00:00:00 Outpatient PREZAS, GIOVANY PIZANO [id number] Laura Enrique 2023-02-12 00:00:00 2023-02-12 00:00:00 Outpatient PREZAS, GIOVANY PIZANO [id number] Laura Enrique 2023-02-12 00:00:00 2023-02-12 00:00:00 Outpatient PREZAS, GIOVANY PIZANO [id number] [facility] 2023-02-11 00:00:00 2023-02-11 00:00:00 Outpatient PREZAS, GIOVANY PIZANO [id number] [facility] 2023-01-28 00:00:00 2023-01-28 00:00:00 Outpatient PREZAS, GIOVANY PIZANO [id number] [facility] 2023-01-28 00:00:00 2023-01-28 00:00:00 Outpatient PREZAS, GIOVANY PIZANO [id number] [facility] 2023-01-27 13:00:00 2023-01-27 13:00:00 Outpatient LABStephen PIZANO [id number] [facility] 2023-01-27 10:45:00 2023-01-27 10:45:00 Outpatient PREZAS, GIOVANY PIZANO [id number] [facility] 2023-01-27 00:00:00 2023-01-27 00:00:00 Outpatient PREZAS, GIOVANY PIZANO [id number] [facility] 2022-12-26 17:57:00 2022-12-26 20:20:00 Emergency Marylou Johnson [facility] [id number] [facility] 2022-12-26 17:57:00 2022-12-26 20:20:00 Emergency X MARYLOU JOHNSON [facility] ERT [id number] [facility] 2022-06-11 11:10:00 2022-06-11 12:41:00 Emergency EM Ted Schultz [facility] ER [id number] 63 [facility] 2021-02-09 23:10:00 2021-02-10 00:19:00 Emergency EM [facility] [id number] [facility] Results Test Description Test Time Test Comments Results Result Co mments Source [facility] [facility], [address], [place], [address], POC [id number] 05:04:00* Test Item Value Reference Range Interpretation Comme nts POC,INTERNAT NORMAL RATIO (test code = EDINR) 1.1 0.8-1.5 N The Hemochron Jr . Citrate Prothrombin Time (PT) Test is aquantitative assay intended for in vitro diagnostic use inperforming a quantitative, one-stage assay for monitoringhemostasis assessment. The Prothrombin Time test monitorsthe extrinsic coagulation pathway, using a citrated wholeblood sample. The INR is calculated directly from the wholeblood PT value based on a regression analysis. [facility] [facility], [address], [place], [address], URINE DRUG SCREEN [id number] 02:46:00* Test Item Value Reference Range Interpretation Comme nts POC,AMPHETAMINES SCREEN (test code = EDAMP) Negative Negative POC,METHAMPHETAMINES SCREEN (test code = EDMAMP) Negative Negative POC,BARBITURATES SCREEN (test code = EDBARB) Negative Negative POC,BENZODIAZEPINES SCREEN (test code = EDBENZ) Negative Negative POC,COCAINE METABOLITE SCREEN (test code = EDCOC) Negative Negative POC,METHADONE METABOLITE SCRN (test code = EDMTD) Negative Negative POC,OPIATES SCREEN (test code = EDOPI) Positive Negative A POC,CANNABINOIDS SCREEN (THC) (test code = EDTHC) Positive Negative A POC,TRICYCLIC ANTIDEPRESSANTS (test code = EDTCA) Negative Negative Test threshold l evels: Amphetamine: 500 ng/mL Methamphetamines: 500ng/mL Barbiturates: 200 ng/mL Benzodiazepines: 200 ng/mL Cocaine: 150 ng/mL Methadone (EDDP): 100 ng/mL Opiates: 300 ng/mL THC: 50 ng/mL TCA : 1000 ng/mL This is a preliminary analytical result. A more specificalternative chemical method must be used in order to obtaina confirmed result. Unconfirmed Drugs of Abuse screening results should not beused for non-medical purposes. [facility] [facility], [address], [place], [address], POC,HCG URINE, [id number] 02:38:00* Test Item Value Reference Range Interpretation Comme nts POC,HCG URINE, QUALITATIVE ( test code = EDHCGU) Negative Negative [facility] [address], [place], [address], URINALYSIS [id number] 02:32:00* Test Item Value Reference Range Interpretation Comme nts POC,URINE COLOR (test code = EDCOLU) Yellow Yellow POC,URINE CLARITY (test code = EDCLARITY) Clear Clear POC,URINE GLUCOSE (test code = EDGLUU) Negative Negative POC,URINE BILIRUBIN (test co de = EDBILIU) Negative Negative POC,URINE KETONES (test code = EDKETU) >=160 Negative A POC,URINE SPECIFIC GRAVITY ( test code = EDSGU) 1.025 1.001-1.035 N POC,URINE BLOOD (test code = EDBLDU) Trace-intact Negative A POC,URINE pH (test code = EDPH) 7.0 5.0-8.0 N POC,URINE PROTEIN (test code = EDPROTU) Negative Negative POC,URINE UROBILINOGEN (test code = EDURO) 0.2 E.U/dL 0.2-1.0 POC,URINE NITRITE (test code = EDNIT) Negative Negative POC,URINE LEUKOCYTE ESTERASE (test code = EDLEUK) Negative Negative [facility], [address], [place], [address], - CT ABD PELVIS W/O [id number] 02:32:00 [facility]ITAL[facility]: BREANNA JIMENEZ : 1990 Sex: FName: BREANNA JIMENEZ [facility] : 1990 Age/S: 32 / F [address] Unit #: [id number] Loc: [place] [address] Phys: Jose Maki MD Acct: [id number] Dis Date: Status: PRE ER PHONE #: Exam Date: 04/14/2023 2246 FAX #: Reason: epigastric abd pain suspect gastroparesis EXAMS: CPT CODE: [id number] CT ABD PELVIS W/O CONT 32287 - CT ABD PELVIS W/O CONT INDICATION / CLINICAL INFORMATION: epigastric abd pain suspect gastroparesis COMPARISON: None available. TECHNIQUE:CT of the abdomen and pelvis without IV contrast. Dose reduction techniques were utilized. FINDINGS: Noncontrast CT limits evaluation of solid and vascular organs. The soft tissues are unremarkable. The osseous structures demonstrate no concerning lytic or blastic lesions. The visualized lungs areclear. The visualized heart is unremarkable. Liver: Unremarkable Gallbladder fossa/CBD: Gallbladdersurgically absent Pancreas: Unremarkable Spleen: Unremarkable Adrenal glands: Unremarkable Kidneys:Unremarkable. No evidence of stones or hydronephrosis. Bowel: The stomach, small bowel, and colon are unremarkable. Specifically the stomach is not significantly distended. Pelvic contents: The remaining pelvic contents are unremarkable. IMPRESSION: No acute findings. Specifically the stomach is not significantly distended. at 0232 Reported and signed by: DIANE KILPATRICK MD PAGE 1 Signed Report (CONTINUED) Name: BREANNA JIMENEZ [facility] FSED : 1990 Age/S: 32 / F [address] Unit #: [id number] Loc: [place] [address] Phys: Jose Maki MD Acct: [id number] Dis Date: Status: PRE ER PHONE #: Exam Date: 04/14/2023226 FAX #: Reason: epigastric abd pain suspect gastroparesis EXAMS: CPT CODE: [id number] CT ABD PELVIS W/O CONT 85153 (Continued) CC: Jose Maki MD Technologist:Milagro Rosen RT (R) CT CTDI: 8 DLP: 395 Trnscb Date/Time: 04/14/2023 (023) [id number] Orig Print D/T: S: 04/14/2023 (023) PAGE 2 Signed ReportCOMPREHENSIVE METABOLIC [id number] 02:31:00* Test Item Value Reference Range Interpretation Comme nts POC,SODIUM (test code = KYLAH) 144 mmol/L 128-145 N POC,POTASSIUM (test code = EDK) 4.5 mmol/L 3.6-5.1 N POC,CHLORIDE (test code = EDCL) 106 mmol/L 98-108 N POC,TCO2 (test code = EDTCO2) 26 mmol/L 18-33 N POC,ANION GAP (test code = EDAGAP) 12 mmol/L 7-16 N POC,BUN (test code = EDBUN) 9 mg/dL 7-22 N POC,CREATININE (test code = EDCRE) 0.6 mg/dL 0.6-1.2 N POC,GLUCOSE (test code = EDGLUC) 129 mg/dL 73-118 H POC,CALCIUM (test code = EDCA) 9.4 mg/dL 8.0-10.3 N POC,eGFR (test code = EDGFR) 123 mL/min See_Comment eGFR is not calc ulated if age <18 yrs, if the sex in EHR islisted as unknown or the creatinine level is below assayrange. This result value is determined by the eGFR 2020 CKD-EPIformula using serum creatinine, age and sex, excluding arace coefficient. The assay for creatinine is traceable tothe IDMS reference method. Chronic kidney disease (CKD) maynot be detectable based solely on creatinine levels. A eGFR> 60 does not rule out mild renal disease. To distinguishnormal renal function from mild renal disease, furtherlaboratory testing may be required. [Automated message] The system which generated this result transmitted reference range: >or=60. The reference range was not used to interpret this result as normal/abnormal. POC,ALBUMIN (test code = EDALB) 4.3 g/dL 3.3-5.5 N POC,TOTAL PROTEIN (test code = EDTP) 7.6 g/dL 6.4-8.1 N POC,BILIRUBIN TOTAL (test code = EDTBIL) 0.7 mg/dL 0.2-1.6 N POC,AST (test code = EDAST) 44 U/L 11-38 H POC,ALT (test code = EDALT) 59 U/L 10-47 H POC,ALKALINE PHOSPHATASE (test code = EDALP) 127 U/L 42-141 [facility] [address], [place], [address], POC,[id number] 02:31:00* Test Item Value Reference Range Interpretation Comme [facility] POC,AMYLASE (test code = EDAMY) 118 U/L 14-97 H [facility], [address], [place], [address], COMPLETE BLOOD COUNT (CBC)2023-04-14 02:21:00* Test Item Value Reference Range Interpretation Comme [facility] POC,WHITE BLOOD CELL (test c ode = EDWBCP) 7.4 10 3/uL 4.1-10.4 N POC,RED BLOOD CELL (test cod e = EDRBCP) 4.77 10 6/uL 3.43-5.21 N POC,HEMOGLOBIN (test code = EDHGBP) 12.7 g/dL 10.3-14.8 N POC,HEMATOCRIT (test code = EDHCTP) 38.8 % 34.132-46.2 N POC,MEAN CELL VOLUME (test c ode = EDMCVP) 81.3 fL 82.5-98.0 L POC,MEAN CELL HEMOGLOBIN (te st code = EDMCHP) 26.6 pg 26.1-32.9 N POC,MEAN CELL HGB CONC (test code = EDMCHCP) 32.7 g/dL 30.7-34.9 N POC,PLATELET COUNT (test cod e = EDPLTP) 335 10 3/uL 136-388 N POC,RED CELL DISTRIB WIDTH ( test code = EDRDWP) 16.9 % 11.8-16.4 H POC,LYMPHOCYTES % (test code = EDLYM%P) 10.1 % 13.9-44.4 L POC,MIXED CELLS % (test code = EDMXD%P) 1.6 % 4.7-13.3 L POC,NEUTROPHILS % (test code = EDNEUT%P) 88.3 % 49.1-76.9 H POC,LYMPHOCYTES # (test code = EDLYM#P) 0.7 10 3/uL 1.0-3.4 L POC,MIXED CELLS # (test code = EDMXD#P) 0.1 10 3/uL 0.3-1.1 L POC,NEUTROPHILS # (test code = EDNEUT#P) 6.6 10 3/uL 2.4-7.5 N POC,MEAN PLATELET VOLUME (te st code = EDMPVP) 13.3 fL 7.9-13.3 N [facility], [address], [place], [place], [address], UA RFLX MICROSCOPIC [id number] 11:54:00* Test Item Value Reference Range Interpretation Comme nts UA COLOR (test code = COLU) YELLOW YELLOW UA APPEARANCE (test code = APPU) CLOUDY CLEAR UA GLUCOSE DIPSTICK (test co de = DGLUU) NEGATIVE mg/dl NORMAL UA BILIRUBIN DIPSTICK (test code = BILU) NEGATIVE mg/dl NEGATIVE UA KETONE DIPSTICK (test cod e = KETU) TRACE mg/dl NEGATIVE A UA [...] WBCUR) #/hpf 0-5 UA EPITHELIAL CELLS (test co de = EPIU) 2+ /hpf NEG,FEW A UA AMORPHOUS SEDIMENT (test code = AMORU) 2+ /hpf NEG,FEW A Indication for culture: Suprapubic PainURINE SOURCE: CLEAN CATCH URINEUR HCG [id number] 11:54:00* Test Item Value Reference Range Interpretation Comme nts UR HCG QUAL (test code = HCGQLU) NEGATIVE NEGATIVE Indication for culture: Suprapubic PainURINE SOURCE: CLEAN CATCH URINE COMPREHENSIVE METABOLIC [id number] 11:49:00* Test Item Value Reference Range Interpretation [...] code = ALKP) 105 U/L 45-117 N [id number] 11:49:00* Test Item Value Reference Range Interpretation Comme nts AMYLASE (test code = PARAM) 73 IU/L 25-115 N [id number] 11:49:00* Test Item Value Reference Range Interpretation Comme nts LIPASE (test code = LIP) 134 U/L 73-393 N CBC W/AUTO [id number] 11:33:00* Test Item Value Reference Range Interpretation [...] code = RBCM) NO NORMAL COMPREHENSIVE METABOLIC [id number] 16:11:00* Test Item Value Reference Range Interpretation [...] > or = 60 ml/min/1.73M2IF PATIENT IS -GHANAIAN, MULTIPLY REPORTED RESULT BY1.21. [Automated message] The [...] code = ALKP) 139 U/L 45-117 H [id number] 16:11:00* Test Item Value Reference Range Interpretation Comme nts LIPASE (test code = LIP) 108 U/L 73-393 N URINALYSIS W REFLEX [id number] 16:05:00* Test Item Value Reference Range Interpretation [...] UAMICRO) Y= DO UA MICRO UR HCG [id number] 16:05:00* Test Item Value Reference Range Interpretation Comme nts UR HCG QUAL (test code = HCGQLU) NEGATIVE NEGATIVE URINALYSIS W REFLEX [id number] 16:05:00* Test Item Value Reference Range Interpretation [...] = UAMICRO) Y= DO UA MICRO UA [id number] 16:05:00* Test Item Value Reference Range Interpretation Comme nts UA WBC (test code = WBCU) 0-2 #/hpf 0-5 UA RBC (test code = RBCU) 0-2 #/hpf 0-5 UA EPITHELIAL CELLS (test co de = EPIU) 2+ /hpf NEG,FEW A UA BACTERIA (test code = BACU) FEW /hpf NEGATIVE A UA AMORPHOUS SEDIMENT (test code = AMORU) FEW /hpf NEG,FEW UR HCG [id number] 16:05:00* Test Item Value Reference Range Interpretation Comme nts UR HCG QUAL (test code = HCGQLU) NEGATIVE NEGATIVE URINALYSIS W REFLEX [id number] 16:05:00* Test Item Value Reference Range Interpretation [...] UAMICRO) Y= DO UA MICRO UR HCG [id number] 16:05:00* Test Item Value Reference Range Interpretation Comme nts UR HCG QUAL (test code = HCGQLU) NEGATIVE NEGATIVE DRUGS OF ABUSE [id number] 16:01:00* Test Item Value Reference Range Interpretation Comme nts UR COCAINE (test code = COCAU) NEGATIVE ng/ml NEGATIVE UR CANNABINOIDS (test code = CANU) POSITIVE ng/ml NEGATIVE A VALUE EXCEEDS CRITICAL LEVEL. CRITICAL VALUE CALLEDTO AND CRITICAL VALUE READ BACK BY HUBER DOWNING RN 1601 06/24/20. Chas Dixon POSITIVE URINE DRUG SCREEN [...] 300 NG/MLPHENCYCLIDINE 25 NG/ML URINALYSIS W REFLEX [id number] 15:58:00* Test Item Value Reference Range Interpretation [...] NEEDED? (test code = UAMICRO) UR HCG [id number] 15:58:00* Test Item Value Reference Range Interpretation Comme nts UR HCG QUAL (test code = HCGQLU) NEGATIVE NEGATIVE CBC W/AUTO [id number] 15:52:00* Test Item Value Reference Range Interpretation [...] 0.0 X10(3) 0.0-0.2 N RBC MORPHOLOGY REQUIRED (adnrew t code = RBCM) NO NORMAL URINALYSIS W REFLEX [id number] 13:00:00* Test Item Value Reference Range Interpretation [...] Y= DO UA MICRO UA ICTOTEST FOR [id number] 13:00:00* Test Item Value Reference Range Interpretation Comme nts UA ICTOTEST FOR BILIRUBIN (t est code = ICTOU) POSITIVE NEGATIVE A UA [id number] 13:00:00* Test Item Value Reference Range Interpretation Comme nts UA WBC (test code = WBCU) 0-2 #/hpf 0-5 UA RBC (test code = RBCU) 3-5 #/hpf 0-5 UA EPITHELIAL CELLS (test co de = EPIU) FEW /hpf NEG,FEW UA BACTERIA (test code = BACU) FEW /hpf NEGATIVE A UA MUCUS (test code = MUCU) 1+ /hpf NEG,FEW A UR HCG [id number] 13:00:00* Test Item Value Reference Range Interpretation Comme nts UR HCG QUAL (test code = HCGQLU) NEGATIVE NEGATIVE DRUGS OF ABUSE [id number] 12:57:00* Test Item Value Reference Range Interpretation [...] 300 NG/MLPHENCYCLIDINE 25 NG/ML URINALYSIS W REFLEX [id number] 12:56:00* Test Item Value Reference Range Interpretation [...] Y= DO UA MICRO UA ICTOTEST FOR [id number] 12:56:00* Test Item Value Reference Range Interpretation Comme nts UA ICTOTEST FOR BILIRUBIN (t est code = ICTOU) POSITIVE NEGATIVE A UR HCG [id number] 12:56:00* Test Item Value Reference Range Interpretation Comme nts UR HCG QUAL (test code = HCGQLU) NEGATIVE NEGATIVE URINALYSIS W REFLEX [id number] 12:53:00* Test Item Value Reference Range Interpretation [...] UAMICRO) Y= DO UA MICRO UR HCG [id number] 12:53:00* Test Item Value Reference Range Interpretation Comme nts UR HCG QUAL (test code = HCGQLU) NEGATIVE NEGATIVE URINALYSIS W REFLEX [id number] 12:53:00* Test Item Value Reference Range Interpretation [...] UAMICRO) Y= DO UA MICRO UR HCG [id number] 12:53:00* Test Item Value Reference Range Interpretation Comme nts UR HCG QUAL (test code = HCGQLU) NEGATIVE NEGATIVE - XR ABDOMEN [id number] 12:16:00 [facility] 1990 Sex: F FAX: Sawyer Centeno II [place]: St: PRE Name: BREANNA QUEEN FSED : 1990 Age/S: 30/F [address] Unit #: [id number] Loc: [place] [address] Phys: Sawyer Centeno II, MD Acct: [id number] Dis Date: Status: PRE ER PHONE #: Exam Date: 05/19/2020 1212 FAX #: Reason: abdominal pain EXAMS: CPT CODE: [id number] XR ABDOMEN 2V 08140 - XR ABDOMEN 2V PROVIDED REASON FOR [...] M.D. CC: Technologist: RT Bekah (Gretta) CT Trnmsrd Date/Time/By: 05/19/2020 (1216) : By: FarhadKEC2 Orig Print D/T: S: 05/19/2020 (5472) PAGE 1 Signed ReportBASIC METABOLIC PANEL 2020-05-19 [...] > or = 60 ml/min/1.73M2IF PATIENT IS -GHANAIAN, MULTIPLY REPORTED RESULT BY1.21. [Automated message] The system which generated this result transmitted reference range: >=60. The reference range was not used to interpret this result as normal/abnormal. CREATININE (test code = CREAT) 0.64 mg/dl 0.55-1.02 N CALCIUM (test code = CA) 9.8 mg/dL 8.5-10.1 N LIVER [id number] 12:08:00* Test Item Value Reference Range Interpretation [...] code = ALKP) 119 U/L 45-117 H [id number] 12:08:00* Test Item Value Reference Range Interpretation Comme nts LIPASE (test code = LIP) 67 U/L 73-393 L CBC W/AUTO [id number] 11:43:00* Test Item Value Reference Range Interpretation [...] = RBCM) NO NORMAL URINALYSIS W REFLEX [id number] 22:06:00* Test Item Value Reference Range Interpretation [...] MUCU) 2+ /hpf NEG,FEW A BASIC METABOLIC [id number] 21:54:00* Test Item Value Reference Range Interpretation [...] > or = 60 ml/min/1.73M2IF PATIENT IS -GHANAIAN, MULTIPLY REPORTED RESULT BY1.. CREATININE (test code = CREAT) 0.70 mg/dL 0.51-0.95 N CALCIUM (test code = CA) 9.3 mg/dL 8.5-10.1 N LIVER [id number] 21:54:00* Test Item Value Reference Range Interpretation [...] code = ALKP) 69 U/L 50-136 N [id number] 21:54:00* Test Item Value Reference Range Interpretation Comme nts LIPASE (test code = LIP) 63 U/L 73-393 L BASIC METABOLIC [id number] 21:53:00* Test Item Value Reference Range Interpretation [...] > or = 60 ml/min/1.73M2IF PATIENT IS -GHANAIAN, MULTIPLY REPORTED RESULT BY03.01. CREATININE (test code = CREAT) 0.70 mg/dL 0.51-0.95 N CALCIUM (test code = CA) 9.3 mg/dL 8.5-10.1 N LIVER [id number] 21:53:00* Test Item Value Reference Range Interpretation [...] ( test code = ALKP) U/L 50-136 [id number] 21:53:00* Test Item Value Reference Range Interpretation Comme nts LIPASE (test code = LIP) 63 U/L 73-393 L BASIC METABOLIC [id number] 21:52:00* Test Item Value Reference Range Interpretation [...] > or = 60 ml/min/1.73M2IF PATIENT IS -GHANAIAN, MULTIPLY REPORTED RESULT BY1.21. CREATININE (test code = CREAT) 0.70 mg/dL 0.51-0.95 N CALCIUM (test code = CA) 9.3 mg/dL 8.5-10.1 N LIVER [id number] 21:52:00* Test Item Value Reference Range Interpretation [...] ( test code = ALKP) U/L 50-136 [id number] 21:52:00* Test Item Value Reference Range Interpretation Comme nts LIPASE (test code = LIP) 63 U/L 73-393 L BASIC METABOLIC [id number] 21:51:00* Test Item Value Reference Range Interpretation [...] > or = 60 ml/min/1.73M2IF PATIENT IS -GHANAIAN, MULTIPLY REPORTED RESULT BY1.21. CREATININE (test code = CREAT) 0.70 mg/dL 0.51-0.95 N CALCIUM (test code = CA) 9.3 mg/dL 8.5-10.1 N LIVER [id number] 21:51:00* Test Item Value Reference Range Interpretation [...] ( test code = ALKP) U/L 50-136 [id number] 21:51:00* Test Item Value Reference Range Interpretation Comme nts LIPASE (test code = LIP) 63 U/L 73-393 L BASIC METABOLIC [id number] 21:49:00* Test Item Value Reference Range Interpretation [...] = CA) 9.3 mg/dL 8.5-10.1 N LIVER [id number] 21:49:00* Test Item Value Reference Range Interpretation [...] ( test code = ALKP) U/L 50-136 [id number] 21:49:00* Test Item Value Reference Range Interpretation Comme nts LIPASE (test code = LIP) 63 U/L 73-393 L BASIC METABOLIC [id number] 21:48:00* Test Item Value Reference Range Interpretation [...] = CA) 9.3 mg/dL 8.5-10.1 N LIVER [id number] 21:48:00* Test Item Value Reference Range Interpretation [...] ( test code = ALKP) U/L 50-136 [id number] 21:48:00* Test Item Value Reference Range Interpretation Comme nts LIPASE (test code = LIP) U/L 73-393 BASIC METABOLIC [id number] 21:46:00* Test Item Value Reference Range Interpretation [...] (test code = CA) mg/dL 8.5-10.1 LIVER [id number] 21:46:00* Test Item Value Reference Range Interpretation [...] ( test code = ALKP) U/L 50-136 [id number] 21:46:00* Test Item Value Reference Range Interpretation Comme nts LIPASE (test code = LIP) U/L 73-393 CBC W/AUTO [id number] 21:43:00* Test Item Value Reference Range Interpretation [...] 0.0-0.1 N Notes Date/Time Note Provider Source 2023-04-14 02:04:00 [id number] EK1oI t/5PYbVZheVfhgbzaMbMxBoZ1eJXiip4013-16-61A28: 04:00 [facility]EMERGENCY PROVIDER REPORTREPORT#:[id number] REPORT STATUS: SignedDATE:04/14/23 TIME: 0204 PATIENT: BREANNA JIMENEZ UNIT #: [id number]#: [id number] ROOM/BED:AGE: 32 SEX: F PCP PHYS: No Primary or Family PhysicianSERVICE AUTHOR: Jose Maki MD * ALL edits or amendments must be made on the electronic/computer document * HPI-Abd Pain F Under 40 Free Text HPI NotesFree Text HPI Bhgps29-epyr-sur presents with abdominal pain that started around 1 PM. Is epigastric with associated nausea. She has a history of IBS and gastroparesis. She has had a bilateral ureteral stent reattachment in 1997 as well as Botox to the pylorus in the past. She has had a cholecystectomy. She said that she wentto a different freestanding around 4 PM and they was told she had a flareup of her gastroparesis and sent home. She reports that she has a history of acute cutaneous nerve entrapment syndrome which does cause this abdominal pain as well. She is under chronic pain management with with a pain management doctor and is on hydrocodone. She denies fevers or chills. She has been having diarrhea watery brown as well as nausea and emesis. The patient currently is onmultiple medications including hydrocodone, Tylenol with codeine, chlorpromazinefor nausea, promethazine for nausea, Xanax for anxiety, and Protonix. She used to be on Reglan however she was taken off of it because it was causing tardive dyskinesia. GeneralInitial Greet Date/Time 04/14/23 0204 PresentationChief Complaint Abdominal pain Risk-Abd Pain F Under 40)( Ectopic Risk factors reviewed Review of Systems ROS StatementsAll systems rev neg except as marked. Past Medical History - AdultStated Complaint ABD PAINAllergiesCoded Allergies:haloperidol (Severe, HIVES 06/11/22)scopolamine (Severe, HIVES [...] biopsy/procedure (2008). Additional Surgical Historybilateral ureter reattachment EP 2017Botox injection to pylorusAlcohol Use Alcohol use (occasional)Drug Use Marijuana Physical Exam Vital SignsVital SignsFirst Documented: Result Date Time Pulse Ox 100 04/13 0208 B/P 165/107 04/13 0208 B/P Mean 126 04/13 0208 O2 Delivery Room air 04/14 207 Temp 97.3 04/14 207 Pulse 83 04/13 0208 Resp 19 04/14 207 Last Documented: Result Date Time Pulse Ox 100 04/13 0208 B/P 165/107 04/13 0208 B/P Mean 126 03/05 0208 O2 Delivery Room air 04/14 207 Temp 97.3 04/14 207 Pulse 83 04/14 207 Resp 19 04/14 207 Review of Vital Signs Reviewed, Vital signs normal Focused PEGeneral/Const General/Const Awake, AlertResp/Chest Respiratory/Chest Atraumatic, Breath sounds NLCardiovascular Cardiovascular Heart rate NL, Regular rhythmMS Back Back Atraumatic, Inspection NL Interpretation Diagnostics Lab Results InterpretationResultsLaboratory Tests: 04/13 04/13 0244 0231 Toxicology POC Urine Opiates (Negative) Positive A POC Urine Methadone (Negative) Negative POC Urine Barbiturates (Negative) Negative POC U Tricyclic Antidpr (Negative) Negative POC Ur Amphetamines (Negative) Negative POC Ur Methamphetamine (Negative) Negative POC Ur Benzodiazepine (Negative) Negative POC Urine Cocaine (Negative) Negative POC Ur Marijuana (THC) (Negative) Positive A Urines POC Urine HCG, Qual (Negative) Negative 04/139 0221 0215 Chemistry POC Sodium (128 - 145 mmol/L) 144 POC Potassium (3.6 - 5.1 mmol/L) 4.5 POC Chloride (98 - 108 mmol/L) 106 POC Total CO2 (18 - 33 mmol/L) 26 POC Anion Gap (7 - 16 mmol/L) 12 POC BUN (7 - 22 mg/dL) 9 POC Creatinine (0.6 - 1.2 mg/dL) 0.6 Est GFR (CKD-EPI 2020) (>or=60 mL/min) 123 POC Glucose (73 - 118 mg/dL) 129 H POC Calcium (8.0 - 10.3 mg/dL) 9.4 POC Total Bilirubin (0.2 - 1.6 mg/dL) 0.7 POC AST (11 - 38 U/L) 44 H POC ALT (10 - 47 U/L) 59 H POC Alk Phosphatase (42 - 141 U/L) 127 POC Total Protein (6.4 - 8.1 g/dL) 7.6 POC Albumin (3.3 - 5.5 g/dL) 4.3 Hematology POC WBC (4.1 - 10.4 10 3/uL) 7.4 POC RBC (3.43 - 5.21 10 6/uL) 4.77 POC Hgb (10.3 - 14.8 g/dL) 12.7 POC Hct (34.132 - 46.2 %) 38.8 POC MCV (82.5 - 98.0 fL) 81.3 L POC MCH (26.1 - 32.9 pg) 26.6 POC MCHC (30.7 - 34.9 g/dL) 32.7 POC RDW Coeff of Arlene (11.8 - 16.4 %) 16.9 H POC Platelet Count (136 - 388 10 3/uL) 335 POC MPV (7.9 - 13.3 fL) 13.3 POC Mixed Cells % (4.7 - 13.3 %) 1.6 L POC Neut # (2.4 - 7.5 10 3/uL) 6.6 POC Lymph # (Auto) (1.0 - 3.4 10 3/uL) 0.7 L POC Mixed Cells # (0.3 - 1.1 10 3/uL) 0.1 L POC Lymphocytes % (13.9 - 44.4 %) 10.1 L POC Neutrophils % (49.1 - 76.9 %) 88.3 H Urines POC Urine Color (Yellow) Yellow POC Urine Appearance (Clear) Clear POC Urine pH (5.0 - 8.0) 7.0 POC Ur Specif [place] (1.001 - 1.035) 1.025 POC Urine Protein (Negative) Negative POC Ur Glucose (UA) (Negative) Negative POC Urine Ketones (Negative) >=160 A POC Urine Blood (Negative) Trace-intact A POC Urine Nitrite (Negative) Negative POC Urine Bilirubin (Negative) Negative POC Urine Urobilinogen (0.2 - 1.0 E.U/dL) 0.2 POC U Leukocyte Esteras (Negative) Negative 04/13 212 Chemistry POC Amylase (14 - 97 U/L) 118 H Recent Impressions:CAT SCAN - CT ABD PELVIS W/O CONT 04/13 226 Report Impression - Status: SIGNED Entered: 04/14/2023235 IMPRESSION:No acute findings. Specifically the stomach is not significantly distended.Impression By: FarhadNH16 - DIANE KILPATRICK MD Re-Evaluation MDM Free Text MDM NotesFree Text MDM NotesVital signs reviewed History obtained from: PatientPrevious records were reviewedReview of external records performed: NoneChronic condition affecting care: NoneDifferential diagnosis: Described belowReview of other medical records: NoneClinical lab test: Ordered and result reviewed independently by me. Unremarkable lab result.Imaging: reviewedDiscussion with other provider: NoneCare affected by social situation, living, substance use, economic: Noncontributory Advised patient to follow-up with her primary care doctor within 24 to 48 hours. Advised return to the ER if getting worse. Patient understand and agree with the plan. All questions were answered. )( Re-Evaluation/Progress #1)( Re-Eval Status ImprovedRe-Eval Abdomen Soft, Non-tender, No guardingEval Following Treatment Pt. feels better, Condition improved ED CourseMedication(s) OrderedMedication(s) Ordered:Central Nervous System Agents Sig/Ayanna Start time Last Medication Dose Route Stop Time Status Admin Morphine Sulfate 4 MG X1ED STA 04/13 0233 DC / IV 04/13 0234 0238 Ketorolac 15 MG X1ED STA 04/13 0208 DC / Tromethamine IV 04/13 0209 0219 Electrolytic, Caloric, And Elvia Sig/Ayanna Start time Last Medication Dose Route Stop Time Status Admin Sodium Chloride 1,000 ML X1ED STA 04/13 0237 AC 03/05 IV 03/ 0336 0238 Sodium Chloride 1,000 ML X1ED STA / 0208 AC 03/05 IV / 0307 0218 Gastrointestinal Drugs Sig/Ayanna Start time Last Medication Dose Route Stop Time Status Admin Famotidine 20 MG X1ED STA 04/13 0208 DC 03/ IV 04/13 0209 0219 Metoclopramide HCl 10 MG X1ED STA 04/13 0208 DCr / IV / 0209 0219 Differential Diagnosis)( Differential Diagnosis Acute abdominal pain, Appendicitis, Bowel obstruction,Constipation, Diverticular disease, Ectopic preg ruptured, Ectopic , Endometriosis, Gastritis, Gastroenteritis, GERD Patient Discharge Departure Vital Signs/ConditionVital SignsFirst Documented: Result Date Time Pulse Ox 100 04/13 0208 B/P 165/107 04/13 0208 B/P Mean 126 04/13 0208 O2 Delivery Room air 04/14 207 Temp 97.3 04/14 207 Pulse 83 04/13 020 Resp 19 04/14 207 Last Documented: Result Date Time Pulse Ox 100 / 0208 B/P 165/107 04/14 207 B/P Mean 126 04/14 207 O2 Delivery Room air 04/14 207 Temp 97.3 04/14 207 Pulse 83 04/14 207 Resp 19 04/14 207 All vital signs available at the time of this entry have been reviewed. Clinical ImpressionClinical ImpressionPrimary Impression: GastroparesisSecondary Impressions: Compression syndrome, nerve, Marijuana abuse, Mild dehydration Disposition DecisionDischarge )( Discharged to Home Yes )( Time 0251 )( Date 04/14/23 Discharge/Care PlanPatient Instructions Abdominal Pain, ED Diabetic Gastroparesis, ED Marijuana AbuseAdditional InstructionsIf you have persistent severe pain and intractable nausea vomiting I suggest yougo to the hospital for possible admission. Discharge NoteI have spoken with the patient [...] department or a call to 911. at 0504RPT #:[id number] OF REPORTEDEmergen department kwkqib8893-79-23L63:04:00H.JNON94356607-7118F VAvailable for patient aanrWUNUJEBXXHNKTI7069-68-60T15:04:38 [facility] 2023-02-24 11:47:47 SVStvjQCU1pBxRwLP7vSv6NBgwNg6j7yO5FsHB/f jHA9B BWVmt+i4M5efKd4ZTMe6956-66-92C29:47:47Formatt ing of this note is different from the original.Chief ComplaintPatient presents withFollow-Up Visit1 month follow up visitLauren Solaresectronically signed by Miriam French LVN at 02/24/2023 11:48 AM HWF75428-0Tvkvo JryeMX2911-75-01T43:48:14Nurse NoteTXT1.2.840.144472.1.13.131.2.7.2.613978|3 [id number] for patient ltvt74604-3Yzyju NoteLNNARRATIVEFormatted C-CDA narrative [facility] [place], [place] [id number]- 16T11:48:141.2.840.135205.1.72.3.15|1.2.840.1 02965.1.13.131.2.7.2.727879_393020860 [facility] 2022-06-11 11:33:00 [id number]/a9uHOnaclhtNiCg6cJ4C4wnuj c+eVJ W91eudEudG8+NBnKYzYwDRKUFUXBQCd2895-81-13L18: 33:00 [facility] ([facility]EMERGENCY PROVIDER REPORTREPORT#:[id number] REPORT STATUS: SignedDATE:06/11/22 TIME: 1133 PATIENT: BREANNA JIMENEZ UNIT #: [id number]#: [id number] ROOM/BED:AGE: 32 SEX: F PCP PHYS: Undefined [...] 16 05/ 1206 O2 Delivery Room air 05 1113 Review of Vital Signs Reviewed Focused [...] % (Auto) (16 - 50 %) 22.9 [place] % (Auto) (0.0 - 13.0 %) 9.8 [...] pH (4.6 - 8.0) 7.[address] [place] (1.001 - 1.035) 1.020 Urine Protein (NEGATIVE [...] yesterday. After discussion patient states was [facility] yesterdayand was prescribed compazine/reglan after [...] 1,000 ML X1ED STA 05 1141 DC 05/03 IV 05/ 1240 1155 Sodium Chloride 1,000 ML X1ED STA 05 1118 DC 05/03 IV [...] or a call to 911. at 1245RPT #:[id number] OF REPORTEDEmergency department nbyvwn7411-24-98I77:33:00H.UFQC46746567-7549H VAvailable for patient apcpULSMWHNEYKNQZU2599-94-32Q52:45:50 [facility] 23:43:00 [id number]f+JM qb4HT MraOCNf6X3Tr1N2aVd0aDxrGhEHuaZ69442-34-81T50: 43:00 [facility] ([facility]EMERGENCY PROVIDER REPORTREPORT#:[id number] REPORT STATUS: SignedDATE:02/09/21 TIME: 2343 PATIENT: BREANNA JIMENEZ UNIT #: [id number]#: [id number] ROOM/BED:AGE: 30 SEX: F PCP PHYS: No Primary or Family PhysicianSERVICE AUTHOR: Kaelyn Peguero MD * ALL edits or amendments must be made on the electronic/computer document * ROK-Xbd-Xksa Illness GeneralConfirmed Patient YesPatient Type New patientInitial Greet Date/Time 02/09/21 2312 PresentationChief Complaint Body aches, Chills, Cough Free Text HPI NotesFree Text HPI Xcrfo29-ptjz-clp female comes emergency room complaining of cough, body aches, chills, that began 2 days ago. Patient has been traveling in [facility] and apparently although she has been driving [...] (2008). Additional Surgical Historybilateral ureter reattachment [address] [facility] 2018 Botox injection to pylorusAlcohol [...] new symptoms or worsening symptoms. at 0652RPT #:[id number] OF REPORTEDEmergency department ozwpdr9658-61-43T07:43:00H.RQFX01757435-3788L VAvailable for patient hrguBCFURYYNCWCBVN8818-35-23W74:53:06 [facility] 2020-06-24 15:35:00 JEdimxxhtlf35340772YS5HJ+T7Ozvrhbzq7sbiu n9MbG cw++6/0tzclG2hrqUcb5+NnE7/PUla5zd9C7d14184-85 -16T15:35:00 [facility] ([facility]EMERGENCY PROVIDER REPORTREPORT#:[id number] REPORT STATUS: SignedDATE:06/24/20 TIME: 1534 PATIENT: BREANNA JIMENEZ UNIT #: [id number]#: [id number] ROOM/BED:AGE: 30 SEX: F PCP PHYS: No Primary or Family PhysicianSERVICE AUTHOR: Maicol Coy MD * ALL edits or amendments must be made on the electronic/computer document * HPI-Abd Pain F Under 40 GeneralInitial Greet Date/Time 06/24/20 1529PCPDr. [place] PresentationChief Complaint Abdominal pain, Nausea, Vomiting [...] Nothing Free Text HPI NotesFree Text HPI Xkybg22g M2 LMP 19 May 2020 c/o acute on chronic gastroparesis related to IBS and/or THC use for past 2d with nonbloody N/V x 6. She is visiting from [place]. Risk-Abd Pain F Under 40)( Ectopic Risk [...] Additional Medical HistoryIBSgastroparesisanxietybipolar d/oPast Surgical History:Reports: Cholecystectomy (2016), Breast biopsy/procedure (2009). Additional Surgical Historybilateral ureter reattachment 1998LEEP 2018Botox [...] % (Auto) (16 - 50 %) 48.2 [place] % (Auto) (0.0 - 13.0 %) 13.0 [...] pH (4.6 - 8.0) 7.0 Ur [address] [place] (1.001 - 1.035) 1.020 Urine Protein (NEGATIVE [...] 10 MG X1ED STA 06/24 1535 DC /16 IV 06/24 1536 1552 Differential DiagnosisRuled Out [...] 06/24 1635 O2 Delivery Room air 06/24 163 Temp 37.2 06/24 163 Pulse 90 06/24 1635 Resp 17 06/24 [...] the plan for smoking cessation. at 20[address]RPT #:[id number] OF REPORTEDEmergency department [id number]:35:00H.[id number] VAvailable for patient ujuzZINMDBYKGVWBIG8757-41-67T33:53:15 [facility] 12:11:00 [id number] 3xkQV h6sjAJIxnjQ8vOzhwCRz0tEBfYzWY8V7ZSQD8t1926-59 -10T12:11:00 [facility]EMERGENCY PROVIDER REPORTREPORT#:[id number] REPORT STATUS: SignedDATE:05/19/20 TIME: 1211 PATIENT: BREANNA QUEEN UNIT #: [id number]#: [id number] ROOM/BED:AGE: 30 SEX: F PCP PHYS: Brayan WninERVICE AUTHOR: Sawyer Centeno II, MD * ALL edits or amendments must be made on the electronic/computer document * HPI-Abd Pain F Under 40 Free Text HPI NotesFree Text HPI NotesThe patient tells me she has a history of gastroparesis but is not a diabetic. She tells me that she is from [facility] and that she has GI specialist in [facility] whose name is Dr. Hendrix. She [...] Pulse Ox 98 04 1128 B/P 158/101 05/19 1128 B/P Mean 120 05/19 1128 Temp 36.9 05/19 1128 Pulse 84 05/19 1128 Resp 18 05/19 1128 Review of [...] pH (4.6 - 8.0) 6.0 Ur Specific [place] (1.001 - 1.035) >= 1.030 Urine Protein [...] (Auto) (16 - 50 %) 9.5 L [place] % (Auto) (0.0 - 13.0 %) 4.3 [...] Entered: 05/19/2020 1219 IMPRESSION:No acute process. Location: [id number] By: Emily CABALLERO M.D. Imaging StatementRadiographic studies [...] 50 MG X1ED STA 05/19 1212 DC 04/10 IV 05/19 1213 1239 Electrolytic, Caloric, And Elvia Sig/Ayanna Start time Last Medication Dose Route Stop Time Status Admin Sodium Chloride 1,000 ML X1ED STA 05/19 1212 DC 04/10 IV 10 1311 1239 Gastrointestinal Drugs Sig/Ayanna Start time [...] 84 05/20 1127 Resp 18 05/20 1127 All vital signs available at the time [...] Days #10 TABS Patient Instructions ED Chronic PainReferralsBalIsatu thomas MD: 2-3 DaysCall or go to the [...] HTN F/u with PCP/other doc at 1708RPT #:[id number] OF REPORTEDEmergency department [id number]:11:[id number] VAvailable for patient [id number]:08:49 HCARG 2019-07-30 21:12:00 [id number] j+eWE [id number] -20T21:12:00 [facility]EMERGENCY PROVIDER REPORTREPORT#:[id number] REPORT STATUS: SignedDATE:07/30/19 TIME: 2111 PATIENT: BREANNA JIMENEZ UNIT #: [id number]#: [id number] ROOM/BED:AGE: 29 SEX: F PCP PHYS: No [...] (Auto) (16.0 - 50.0 %) 15.3 L [place] % (Auto) (0.0 - 13.0 %) 5.2 [...] pH (4.6 - 8.0) 6.[address] [place] (1.001 - 1.035) 1.017 Urine Protein (NEGATIVE [...] of Care TestingUrinalysis Interpretation Urinalysis NL Re-Evaluation [facility] )( Re-Evaluation/Progress #1Time of Re-Eval 2228)( Re-Eval Status ImprovedRe-Eval Abdomen SoftEval Following Treatment Pt. feels better, Condition improvedPain Re-Evaluation Pain improvedPlan Post Re-Eval Plan discharge Abd Pain MDM Note F < 40The patient is resting comfortably and feels better, is alert and in no distress. The repeat examination is unremarkable and benign; in particular, [facility]. The history, exam, diagnostic testing, and [...] or a call to 911. at 0000RPT #:[id number] OF REPORTEDEmergency department [id number]:12:00H.[id number] VAvailable for patient [id number]:00:25 HCARG 2019-07-30 21:12:00 [id number] Mili+2 [id number] -20T21:12:00 [facility] ([facility])EMERGENCY PROVIDER REPORTREPORT#:[id number] REPORT STATUS: SignedDATE:07/30/19 TIME: 2111 PATIENT: BREANNA JIMENEZ UNIT #: [id number]#: [id number] ROOM/BED:AGE: 29 SEX: F PCP PHYS: No [...] 16 07/29 2252 O2 Delivery Room air 06/20 2115 Temp 36.2 07/29 2114 Review of Vital [...] (Auto) (16.0 - 50.0 %) 15.3 L [place] % (Auto) (0.0 - 13.0 %) 5.2 [...] pH (4.6 - 8.0) 6.[address] [place] (1.001 - 1.035) 1.017 Urine Protein (NEGATIVE [...] X1ED STA 07/293 DC 07/29 Tromethamine IV 06/20 2334 2336 Promethazine HCl 25 MG X1ED [...] call to 911. at 0000 at 0024RPT #:[id number] OF REPORTEDEmermena regional health system department [id number]:12:00H.[id number] VAvailable for patient [id number]:24:32 [facility]"
[2023-05-13] MEDS ORDERED: ONDANSETRON 4 MG/2 ML VIAL ONE (03:47)
[2023-05-13] MEDS ORDERED: methocarbamoL 750 MG TAB ONE (03:47)
[2023-05-13] MEDS ORDERED: HYDROCORTISONE SUC 100 MG INJ ONE (03:47)
[2023-05-13] MEDS ORDERED: MORPHINE 2 MG/ML SYR ONE (03:48)
[2023-05-13] MEDS ORDERED: MORPHINE 4 MG/ML SYR ONE (03:48)
[2023-05-13] MEDS ORDERED: NA CHLORIDE 0.9% 1,000 ML ONE (03:48)
[2023-05-13 04:03] LABS: Absolute Basophils 0.1 K/uL (0-0.5); Absolute Eosinophils 0.2 K/uL (0-0.5); Absolute Lymphocytes (CBC) 1.9 K/uL (0.7-4.9); Absolute Monocytes 0.7 K/uL (0.1-1.3); Absolute Neutrophil 2.5 K/uL (1.8-8.0); Basophils % 1.6 % (0-1.3); Eosinophils % 4.3 % (0-4.4); Hematocrit 36.7 % (36.0-45.0); Hemoglobin 12.1 g/dL (12.0-15.0); Lymphocytes % 35.2 % (15.3-44.8); MCH 26.1 pg (27.0-35.0); MCV 79.2 fL (80-100); MPV 10.9 fL (7.6-11.3); Monocytes % 12.5 % (3.3-12.3); Neutrophils % 46.4 % (41.7-73.7); Nucleated Red Blood Cells % 0.1 % (0-0); Platelets 238 thou/uL (152-406); RBC Red Blood Cell Count 4.64 M/uL (3.86-4.86)
[2023-05-13 04:05] LABS: Specific Gravity 1.009 (1.005-1.030)
[2023-05-13 04:06] LABS: Specific Gravity 1.009 (1.005-1.030); Sqamous Epithelial <5 /HPF (None Seen); Urine Bacteria <20 /HPF (<20); Urine Bilirubin NEGATIVE (Negative); Urine Blood Trace (Negative); Urine Clarity Clear (Clear); Urine Color Light-Yellow (Yellow); Urine Culture Reflex Order NOT NEEDED; Urine Glucose NEGATIVE (Negative); Urine Ketones NEGATIVE (Negative); Urine Microscopic Reflex YN ORDER UMIC; Urine Mucus Slight /HPF (None Seen); Urine Nitrite NEGATIVE (Negative); Urine Protein NEGATIVE (Negative); Urine RBC <5 /HPF (None Seen); Urine Urobilinogen Normal (Normal); Urine WBC <5 /HPF (<5); Urine pH 6.5 (5.0-7.0)
[2023-05-13 04:09] LABS: SARS-CoV-2 Antigen CONTROL BLUE LINE VIS/BG OK; SARS-CoV-2 Antigen Rapid Res Negative (Negative)
[2023-05-13 04:13] LABS: Albumin 3.5 g/dL (3.4-5.0); Albumin/Globulin Ratio 1.1 (1.1-1.8); Anion Gap 8.9 mEq/L (5.0-15.0); Bilirubin Total 0.4 mg/dL (0.2-1.0); Globulin 3.2 g/dL (2.3-3.5); Potassium 3.9 mEq/L (3.5-5.1); Protein, Total 6.7 g/dL (6.4-8.2)
--- NOTE | 2023-05-13 05:47 | ER ---
Nurse's Notes [facility] Name: Efrem Pastor Age: 33 yrs Sex: Female : 1990 Arrival Date: 05/13/2023 Time: 01:59 Bed 19 Private MD: Clarence Cooper Diagnosis: Acute pain, not elsewhere classified;Exacerbation of chronic pain, persistent neuropathic pain, hyperalgesia Presentation: 05/12 03:04 Chief complaint: Patient states: "Neuropathy pain" of 9,onset 1700 tonight with nausea pf1 and vomiting x 3 episodes. Coronavirus screen: Vaccine status: Patient reports receiving the 2nd dose of the covid vaccine. Client denies travel out of the [place] in the last 14 days. At this time, the client does not indicate any symptoms associated with coronavirus-19. Ebola Screen: Patient negative for fever greater than or equal to 101.5 degrees Fahrenheit, and additional compatible Ebola Virus Disease symptoms. Initial Sepsis Screen: Does the patient meet any 2 criteria? HR > 90 bpm. No. Patient's initial sepsis screen is negative. Does the patient have a suspected source of infection? No. Patient's initial sepsis screen is negative. Risk Assessment: Do you want to hurt yourself or someone else? Patient reports no desire to harm self or others. Onset of symptoms was May 12, 2023 at 17:00. 03:04 Method Of Arrival: Ambulatory pf1 03:04 Acuity: BELINDA 3 pf1 Triage Assessment: 03:09 General: Appears in no apparent distress. uncomfortable, well groomed, well developed, pf1 Behavior is calm, cooperative, appropriate for age, anxious, quiet. Pain: Complains of pain in back, bilateral groin, right leg and left leg. Musculoskeletal: Reports pain in back, right leg and left leg and bilateral groin. Historical: - Allergies: 03:08 Haldol; pf1 03:08 Scopolamine HBr; pf1 - PMHx: 03:08 Acute cutaneous nerve entrapment syndrome; ACNE (Unknown); Gastroparesis; Irritable pf1 bowel syndrome; PTSD; Anxiety; neuropathy; - PSHx: 03:08 bilateral ureter attachment; Cholecystectomy; leep procedure; Lumpectomy of breast; pf1 right breast; - Immunization history:: Adult Immunizations up to date, Client reports receiving the 2nd dose of the Covid vaccine, Last tetanus immunization: > 10 years ago Flu vaccine is up to date. - Infectious Disease History:: Denies. - Social history:: Smoking status: Reported history of juuling and/or vaping. Patient/guardian denies using alcohol, street drugs. - Family history:: not pertinent. Screenin:02 [facility] ED Fall Risk Assessment (Adult) History of falling in the last 3 months, tm6 including since admission No falls in past 3 months (0 pts) Confusion or Disorientation No (0 pts) Intoxicated or Sedated No (0 pts) Impaired Gait No (0 pts) Mobility Assist Device Used No (0 pt) Altered Elimination No (0 pt) Score/Fall Risk Level 0 - 2 = Low Risk Oriented to surroundings, Maintained a safe environment. Abuse screen: Denies threats or abuse. Denies injuries from another. Nutritional screening: No deficits noted. Tuberculosis screening: No symptoms or risk factors identified. Assessment: 04:02 General: Appears uncomfortable, Behavior is calm, cooperative. Pain: Complains of pain tm6 in back, pelvis, right hand, left hand, right leg and left leg Pain currently is 9 out of 10 on a pain scale. Quality of pain is described as aching, sharp, stabbing, Pain began 2-3 days ago. Is continuous. Neuro: Level of Consciousness is awake, alert, obeys commands, Oriented to person, place, time, situation. Cardiovascular: Patient's skin is warm and dry. Respiratory: Airway is patent Respiratory effort is even, unlabored, Respiratory pattern is regular, symmetrical. GI: Abdomen is flat, non-distended. : No signs and/or symptoms were reported regarding the genitourinary system. EENT: No signs and/or symptoms were reported regarding the EENT system. Derm: No signs and/or symptoms reported regarding the dermatologic system. Musculoskeletal: Reports pain in back, pelvis, right hand, left hand, right leg and left leg since 5pm yesterday. Pain is 9 out of 10 on a pain scale. 05:02 Reassessment: Patient and/or family updated on plan of care and expected duration. Pain tm6 level reassessed. Patient is alert, oriented x 3, equal unlabored respirations, skin warm/dry/pink. 06:02 Reassessment: Patient appears in no apparent distress at this time. Patient and/or tm6 family updated on plan of care and expected duration. Pain level reassessed. Patient is alert, oriented x 3, equal unlabored respirations, skin warm/dry/pink. Vital Signs: 03:04 BP 119 / 87; Pulse 95; Resp 16; Temp 97.2; Pulse Ox 100% on R/A; Weight 65.77 kg; pf1 Height 5 ft. 2 in. ; Pain 9/10; 04:06 BP 134 / 91; Pulse 81; Pulse Ox 97% on R/A; Pain 9/10; tm6 05:02 BP 117 / 85; Pulse 73; Pulse Ox 97% on R/A; Pain 5/10; tm6 06:02 BP 110 / 98; Pulse 81; Resp 19; Temp 98(TE); Pulse Ox 97% on R/A; Pain 5/10; tm6 03:04 Body Mass Index 26.52 (65.77 kg, 157.48 cm) pf1 03:04 Pain Scale: Adult pf1 04:06 Pain Scale: Adult tm6 05:02 Pain Scale: Adult tm6 06:02 Pain Scale: Adult tm6 ED Course: 02:19 Patient arrived in ED. gm2 02:19 Clarence Cooper DO is Private Physician. gm2 02:46 Mario Santo MD is Attending Physician. sp4 03:08 Triage completed. pf1 03:11 Arm band placed on right wrist. pf1 03:24 Rosemarie Gibbs, RN is Primary Nurse. tm6 03:30 Missed attempt(s): 22 gauge in right antecubital area. tm6 03:40 Missed attempt(s): 22 gauge in left forearm. Bleeding controlled, band aid applied, tm6 catheter tip intact. 03:44 Influenza Screen (a \\T\\ B) Sent. tm6 03:44 SARS RAPID Sent. tm6 03:45 Test, Urine Sent. tm6 03:45 Urinalysis w/ reflexes Sent. tm6 03:45 CBC with Diff Sent. tm6 03:45 CMP Sent. tm6 04:02 Patient has correct armband on for positive identification. Placed in gown. Bed in low tm6 position. Call light in reach. Side rails up X2. Provided Education on: plan of care. Client placed on continuous cardiac and pulse oximetry monitoring. NIBP monitoring applied. Pulse ox on. NIBP on. Door closed. Noise minimized. Lights dimmed. Warm blanket given. Pillow given. 04:02 Inserted saline lock: 20 gauge in right antecubital area, using aseptic technique. tm6 05:45 Clarence Cooper DO is Referral Physician. sp4 06:03 No provider procedures requiring assistance completed. IV discontinued, intact, tm6 bleeding controlled, No redness/swelling at site. Pressure dressing applied. Administered Medications: 04:01 Drug: Methocarbamol PO 1500 mg PO once Route: PO; tm6 04:01 Drug: NS 0.9% IV 1000 ml IV at 1 bolus Per protocol; 1000 mL bolus Route: IV; Rate: 1 tm6 bolus; Site: right antecubital; 05:53 Follow up: IV Status: Completed infusion; IV Intake: 1000ml tm6 04:02 Drug: morphine IVP or IV 6 mg IVP once over 4 mins Route: IVP; Infused Over: 4 mins; tm6 Site: right antecubital; 04:02 Drug: Ondansetron IVP 4 mg IVP once; over 2 minutes Route: IVP; Site: right antecubital;tm6 04:02 Drug: Solu-CORTEF IVP 100 mg IVP once Route: IVP; Site: right antecubital; tm6 06:02 Drug: HYDROcodone-acetaminophen PO 5 mg-325 mg 2 tabs PO once Route: PO; tm6 06:02 Drug: Ibuprofen PO 600 mg PO once Route: PO; tm6 Medication: 04:02 VIS not applicable for this client. tm6 Intake: 05:53 IV: 1000ml; Total: 1000ml. tm6 Outcome: 05:46 Discharge ordered by . sp4 06:03 Discharged to home ambulatory, with family, tm6 06:03 Condition: stable 06:03 Discharge instructions given to patient, Instructed on discharge instructions, follow up and referral plans. medication usage, Demonstrated understanding of instructions, follow-up care, medications, Prescriptions given X 4, 06:04 Patient left the ED. tm6 Signatures: Kristen Cunningham RN RN pf1 Mario Santo MD MD sp4 Vira Munson 2 Rosemarie Gibbs RN RN tm6
--- NOTE | 2023-05-13 05:47 | EDPHYS ---
Physician Documentation [facility] Name: Efrem Pastor Age: 33 yrs Sex: Female : 1990 Arrival Date: 05/13/2023 Time: 01:59 Bed 19 Private MD: Clarence Cooper ED Physician Mario Santo HPI: 05/12 02:47 This 33 yrs old Female presents to ER via Unassigned with complaints of Pain sp4 All Over. 05:34 Patient with history of gastroparesis, IBS, and chronic generalized pain presented with sp4 worsening acute on chronic generalized pain started yesterday. . 05:35 Also reported 3 episodes of vomiting . sp4 Historical: - Allergies: 03:08 Haldol; pf1 03:08 Scopolamine HBr; pf1 - PMHx: 03:08 Acute cutaneous nerve entrapment syndrome; ACNE (Unknown); Gastroparesis; Irritable pf1 bowel syndrome; PTSD; Anxiety; neuropathy; - PSHx: 03:08 bilateral ureter attachment; Cholecystectomy; leep procedure; Lumpectomy of breast; pf1 right breast; - Immunization history:: Adult Immunizations up to date, Client reports receiving the 2nd dose of the Covid vaccine, Last tetanus immunization: > 10 years ago Flu vaccine is up to date. - Infectious Disease History:: Denies. - Social history:: Smoking status: Reported history of juuling and/or vaping. Patient/guardian denies using alcohol, street drugs. - Family history:: not pertinent. ROS: 05:35 Constitutional: Negative for fever, chills, and weight loss, positive acute generalized sp4 pain 05:35 All other systems are negative, Exam: 05:35 Constitutional: This is a well developed, well nourished patient who is awake, alert, sp4 and in no acute distress. Head/Face: Normocephalic, atraumatic. Eyes: Pupils equal round and reactive to light, extra-ocular motions intact. Lids and lashes normal. Conjunctiva and sclera are not injected. Cornea within normal limits. Periorbital areas with no swelling, redness, or edema. ENT: Nares patent. No nasal discharge, no septal abnormalities noted. Tympanic membranes are normal and external auditory canals are clear. Oropharynx with no redness, swelling, or masses, exudates, or evidence of obstruction, uvula midline. Mucous membranes moist. Neck: Trachea midline, no thyromegaly or masses palpated, and no cervical lymphadenopathy. Supple, full range of motion without nuchal rigidity, or vertebral point tenderness. Chest/axilla: Normal chest wall appearance and motion. Nontender with no deformity. No lesions are appreciated. Cardiovascular: Regular rate and rhythm with a normal S1 and S2. No gallops, murmurs, or rubs. Normal PMI, no JVD. No pulse deficits. Respiratory: Lungs have equal breath sounds bilaterally, clear to auscultation and percussion. No rales, rhonchi or wheezes noted. No increased work of breathing, no retractions or nasal flaring. Abdomen/GI: Soft, with normal bowel sounds. No distension or tympany. No guarding or rebound. No evidence of tenderness throughout. Back: No spinal tenderness. No costovertebral tenderness. Skin: Warm, dry with normal turgor. Normal color with no rashes, no lesions, and no evidence of cellulitis. MS/ Extremity: Pulses equal, no cyanosis. Neurovascular intact. Full, normal range of motion. Neuro: Awake and alert, GCS 15, oriented to person, place, time, and situation. Cranial nerves II-XII grossly intact. Motor strength 5/5 in all extremities. Sensory grossly intact. Psych: Awake, alert, with orientation to person, place and time. Behavior, mood, and affect are within normal limits Vital Signs: 03:04 BP 119 / 87; Pulse 95; Resp 16; Temp 97.2; Pulse Ox 100% on R/A; Weight 65.77 kg; pf1 Height 5 ft. 2 in. ; Pain 9/10; 04:06 BP 134 / 91; Pulse 81; Pulse Ox 97% on R/A; Pain 9/10; tm6 05:02 BP 117 / 85; Pulse 73; Pulse Ox 97% on R/A; Pain 5/10; tm6 06:02 BP 110 / 98; Pulse 81; Resp 19; Temp 98(TE); Pulse Ox 97% on R/A; Pain 5/10; tm6 03:04 Body Mass Index 26.52 (65.77 kg, 157.48 cm) pf1 03:04 Pain Scale: Adult pf1 04:06 Pain Scale: Adult tm6 05:02 Pain Scale: Adult tm6 06:02 Pain Scale: Adult tm6 MDM: 02:47 Patient medically screened. sp4 05:43 Differential Diagnosis altered mental status, sepsis, flu, Acute generalized pain. Data sp4 reviewed: vital signs, nurses notes, lab test result(s), CBC, electrolytes, urinalysis. ED course: Patient stable for discharge home with p.o. Robaxin, p.o. tramadol, p.o. meloxicam, and p.o. Phenergan. 05/12 02:47 Order name: CBC with Diff; Complete Time: 05:34 sp4 05/12 02:47 Order name: CMP; Complete Time: 05:34 sp4 05/12 02:47 Order name: Test, Urine; Complete Time: 05:34 sp4 05/12 02:47 Order name: Urinalysis w/ reflexes; Complete Time: 05:34 sp4 05/12 03:04 Order name: SARS RAPID; Complete Time: 05:34 sp4 05/12 03:04 Order name: Influenza Screen (a \T\ B); Complete Time: 05:34 sp4 05/12 02:47 Order name: IV Saline Lock; Complete Time: 04:01 sp4 05/12 02:47 Order name: Labs collected and sent; Complete Time: 03:45 sp4 Administered Medications: 04:01 Drug: Methocarbamol PO 1500 mg PO once Route: PO; tm6 04:01 Drug: NS 0.9% IV 1000 ml IV at 1 bolus Per protocol; 1000 mL bolus Route: IV; Rate: 1 tm6 bolus; Site: right antecubital; 05:53 Follow up: IV Status: Completed infusion; IV Intake: 1000ml tm6 04:02 Drug: morphine IVP or IV 6 mg IVP once over 4 mins Route: IVP; Infused Over: 4 mins; tm6 Site: right antecubital; 04:02 Drug: Ondansetron IVP 4 mg IVP once; over 2 minutes Route: IVP; Site: right antecubital;tm6 04:02 Drug: Solu-CORTEF IVP 100 mg IVP once Route: IVP; Site: right antecubital; tm6 06:02 Drug: HYDROcodone-acetaminophen PO 5 mg-325 mg 2 tabs PO once Route: PO; tm6 06:02 Drug: Ibuprofen PO 600 mg PO once Route: PO; tm6 Disposition Summary: 05/13/23 05:46 Discharge Ordered Notes: Location: Home sp4 Problem: new sp4 Symptoms: have improved sp4 Condition: Stable sp4 Diagnosis - Acute pain, not elsewhere classified sp4 - Exacerbation of chronic pain, persistent neuropathic pain, hyperalgesia sp4 Followup: sp4 - With: Clarence Cooper DO - When: 7 - 10 days - Reason: Recheck today's complaints Discharge Instructions: - Discharge Summary Sheet sp4 - Myofascial Pain Syndrome and Fibromyalgia sp4 Forms: - Patient Portal Instructions sp4 Prescriptions: - meloxicam 15 mg Oral tablet - take 1 tablet ORAL route daily PRN pain; 30 tablet; Refills: 0, Product sp4 Selection Permitted - Tramadol 50 mg Oral Tablet - take 1 tablet ORAL route every 8 hours as needed; 12 tablet; Refills: 0, sp4 Product Selection Permitted - promethazine 25 mg Oral tablet - take 1 tablet ORAL route every 6 hours As needed PRN nausea; 30 tablet; sp4 Refills: 0, Product Selection Permitted - methocarbamol 750 mg Oral tablet - take 2 tablets ORAL route every 8 hours for 10 days PRN muscle soreness; 60 sp4 tablet; Refills: 0, Product Selection Permitted Signatures: Dispatcher [employer] Kristen Moreira, RN RN pf1 Mario Santo MD MD sp4 Rosemarie Gibbs RN RN tm6
[2023-05-13] MEDS ORDERED: IBUPROFEN 400 MG TAB ONE (05:55)
[2023-05-13] MEDS ORDERED: IBUPROFEN 200 MG TAB PO ONE (05:55)
[2023-05-13] MEDS ORDERED: HYDROCODONE/APAP 5/325 MG TAB ONE (05:55)
[2023-05-13 06:24] VITALS: BP 110/98; TEMP 98; O2SAT 97
== END 2023-05-13 06:04 | disposition home or self-care (01) ==
LOC: ER 01:59
DX: G89.29 Other chronic pain (principal); R20.8 Other disturbances of skin sensation
CPT/HCPCS: 36415; 80053; 81001; 81025; 85025; 87804; 87811; J1720; J2270; J2405; J7030

== ENCOUNTER 2023-05-14 20:23 | Emergency (ER) | payer BC, SELFPAY ==
--- OUTSIDE RECORDS SUMMARY | 2023-05-14 20:28 | XMS REPORT | Continuity of Care Document ---
Author Name Unknown Address [address] [facility] [address] [place] [address] [facility] thconnect Address [address] [facility]. [address] [place] [address] Care Team Providers Care Chief Operating Engineer Name Role Phone Kelton Daniels Jr. Primary Care Physician GIOVANY HAGER Attending Clinician Unavailable CAIT BRAGG Attending Clinician Unavailable Jose Maki Attending Clinician Unavailable LAB90 Attending Clinician Unavailable Marylou Johnson NP Attending Clinician [phone] Ted Schultz Attending Clinician Unavailable Kaelyn Peguero Attending Clinician Unavailable Physician, No Primary or Family Admitting Clinic monse Unavailable UNDEFINED Admitting Clinician Unavailable Payers Payer Name Policy Type Policy Number Effective Date Expirati on Date Source [place] [id number] 2022 00:00:00 2023 00:00:00 BCBS 2 [id number] 2023 00:00:00 Problems Condition Name Condition Details [...] comments 2022-02- 00:00: 00 Dystonic reactions [facility] Scopolam ine Propensi ty to adverse reaction s Active Other - See comments 2022-02 00:00: 00 Visual changes [facility] HALOPERI DOL DRUG INGREDI Active Med Other-Cmnt 2022-02 00:00: 00 [facility] SCOPOLAM INE DRUG INGREDI Active Other-Cmnt 2022-02 00:00: 00 [facility] haloperi dol DA Active SV HIVES - 00:00: 00 [facility] scopol[facility]e DA Active SV HIVES 06-11 00:00: 00 [facility] No Known Allergie s DA Active U 02-09 00:00: 00 [facility] No Known Allergie s DA Active U 06-24 00:00: 00 [facility] No Known Allergie s DA Active U 06-24 00:00: 00 [facility] scopolam ine DA Active DC 4-10 00:00: 00 [facility] scopolam ine DA Active DC RASH-ES 4-10 00:00: 00 [facility] No Known Allergie s DA Active U 07-29 00:00: 00 [facility] No Known Allergie s DA Active U 07-29 00:00: 00 [facility] No Known Drug Intolera nces DA Active U 10-24 00:00: 00 [facility] No Known Drug Intolera nces DA Active U NONE 10-24 00:00: 00 [facility] NO KNOWN ALLERGIE S Drug Class Active [facility] Social History Social Habit Start [...] Stop Date Source Tobacco smoking consumption unknown [facility] Ex-smoker 2023-01-27 00:00:00 2023-01-27 00:00:00 Laura Enrique - External Medications Ordered Medication Name Filled Medication Name Start Date Stop Date Current Medication? Ordering Clinician Indication Dosage Frequency Signature (SIG) Comments Components Source Brexpiprazo le (Rexulti) 2 MG oral Tablet 02-24 11:47: 34 Yes 2mg Take 2 mg by mouth daily. Laura hall HYDROcodone -Acetaminop hen 10-325 MG oral Tablet 02-24 00:00: 00 Yes [id number] 1{tbl} Q.5D Take 1 tablet by mouth 2 times daily as needed for pain. Laura hall Methocarbam ol 500 MG oral Tablet 02-24 00:00: 00 Yes [id number] 500mg QD Take 1 tablet (500 mg [...] MG oral Tablet 1-04 00:00: 00 Yes [id number] 25mg QD Take 1 tablet (25 mg total) by mouth daily as needed for nausea. Laura hall Valacyclovi r HCl (Valtrex) 500 MG oral Tablet 2022-02 2 00:00: 00 Yes [id number] 500mg Take 1 tablet (500 mg total) [...] On Thu12/26/22 at 2030, 1 mL [facility] penicillin g benzathine (BICILLIN L-A) injection 1.2 Million Units 2022-02 01:45: 00 12-27 01:53 :00 No 1.210 1.2 Million Units, Intramuscu lar, ONCE, 1 dose, On Thu12/26/22 at 1945, RONNIE
Re ason for Anti-Infec tive: Empiric Therapy for Suspected Infection< br>Empiric Therapy Site: HEENT
D uration of therapy: Once (ED) [facility] acetaminoph en (TYLENOL) tablet 650 mg 2022-02 01:45: 00 12-27 01:50 :00 No 650mg 650 mg, Oral, ONCE, 1 dose, On Thu12/26/22 at 1945, RONNIE [facility] ketorolac (TORADOL) injection 30 mg 2022-02 00:45: 00 12-27 00:59 :00 No 30mg 30 mg, Intramuscu lar, ONCE, 1 dose, On Thu12/26/22 at 1845, [facility] hydrocortis one 1 mg/4 mL in nystatin suspension- diphenhydrA MINE solution suspension 2022-02 00:00: 00 12-30 05:59 :00 No [id number] 15mL Take 15 mL by mouth every 6 (six) hours as needed for Pain (scale 4-6) for up to [address] [facility] Famotidine (PEPCID) 20 MG oral [...] up to age 4 Unknown Completed Laura Minorold - External HPV 4 (Human Papillomavirus) Unknown [...] Systolic blood pressure 2022-12-27 02:16:00 111 mm[Hg] [facility] Diastolic blood pressure 2022-12-27 02:16:00 82 mm[Hg] [facility] Heart rate 2022-12-27 02:16:00 93 /min [facility] Body temperature 2022-12-27 02:16:00 37.56 Caitlyn [facility] Respiratory rate 2022-12-27 02:16:00 20 /min [facility] Oxygen saturation in Arterial blood by Pulse oximetry 2022-12-27 02:16:00 96 /min [facility] Body height 2022-12-26 23:57:00 157.5 cm [facility] Body weight 2022-12-26 23:57:00 58.968 kg [facility] BMI 2022-12-26 23:57:00 23.78 kg/m2 [facility] Procedures Procedure Date / Time Performed Performing Clinicia n Source CBC WITH DIFF 2022-12-27 01:49:00 Marylou Johnson [facility] RAPID STREP SCREEN FOR GROUP A 2022-12-27 00:59:00 Marylou Johnson [facility] NOTICE OF PRIVACY PRACTICES 2022-12-26 23:28:27 Doctor Unassigned, [place] [facility] CONSENT/REFUSAL FOR DIAGNOSIS AND TREATMENT 2022-12-26 23:27:35 Doctor Unassigned, [place] [facility] Encounters Start Date/Time End Date/Time Encounter Type Admission Type Attending Clinicians Care Facility Care Department Encounter ID Source 2020-06-24 15:53:22 Inpatient [facility] [id number] 2020-05-19 11:42:02 [facility] [id number] 2019-07-30 21:08:00 Inpatient [facility] ER [id number] [facility] 2023-05-04 14:30:00 2023-05-04 14:30:00 Outpatient PREZAGIOVANY Garcia LAURA PIZANO [id number] [facility] 2023-05-04 11:15:00 2023-05-04 11:15:00 Outpatient PREZAS, GIOVANY PIZANO [id number] [facility] 2023-05-04 11:00:00 2023-05-04 11:00:[address] [facility] [id number] [facility] 2023-04-22 00:00:00 2023-04-22 00:00:00 Outpatient PREZAS, GIOVANY PIZANO [id number] [facility] 2023-04-14 02:00:00 2023-04-14 03:25:00 Emergency EM Glynn Jose [facility]ARG ER [id number] 26 [facility] 2023-04-10 00:00:00 2023-04-10 00:00:00 Outpatient PREZAS, GIOVANYLDEY PIZANO [id number] [facility] 2023-03-27 09:00:00 2023-03-27 09:00:00 Outpatient PREZAS, GIOVANY PIZANO [id number] [facility] 2023-03-27 00:00:00 2023-03-27 00:00:00 Outpatient PREZAS, GIOVANY PIZANO [id number] [facility] 2023-03-27 00:00:00 2023-03-27 00:00:00 Outpatient PREZAS, GIOVANY PIZANO [id number] [facility] 2023-03-26 00:00:00 2023-03-26 00:00:00 Outpatient PREZAS, GIOVANY PIZANO [id number] [facility] 2023-03-26 00:00:00 2023-03-26 00:00:00 Outpatient PREZAS, GIOVANY PIZANO [id number] [facility] 2023-03-25 14:00:00 2023-03-25 14:00:00 Outpatient PREZAS, GIOVANY DIALLOSEY [id number] [facility] 2023-03-10 00:00:00 2023-03-10 00:00:00 Outpatient PREZAS, GIOVANY PIZANO LAURA [id number] [facility] 2023-03-09 00:00:00 2023-03-09 00:00:00 Outpatient PREZAS, GIOVANY DIALLOSEY [id number] [facility] 2023-03-04 00:00:00 2023-03-04 00:00:00 Outpatient PREZAS, GIOVANY PIZANO [facility] [id number] [facility] 2023-[facility]-03 00:00:00 2023-03-03 00:00:00 Outpatient PREZAS, GIOVANY DIALLOHUMPHREY PIZANO [id number] [facility] 2023-03-02 00:00:00 2023-03-02 00:00:00 Outpatient PREZAS, GIOVANY PIZANO LAURA [id number] [facility] 2023-03-02 00:00:00 2023-03-02 00:00:00 Outpatient PREZAS, GIOVANY PIZANO LAUAR [id number] [facility] 2023-03-02 00:00:00 2023-03-02 00:00:00 Outpatient PREZAS, GIOVANY DIALLOHUMPHREY PIZANO [id number] [facility] 2023-03-02 00:00:00 2023-03-02 00:00:00 Outpatient PREZAS, GIOVANY DIALLOHUMPHREY PIZANO [id number] [facility] 2023-02-27 00:00:00 2023-02-27 00:00:00 Outpatient PREZAS, GIOVANY DIALLOHUMPHREY PIZANO [id number] [facility] 2023-02-25 00:00:00 2023-02-25 00:00:00 Outpatient PREZAS, GIOVANY LAURA PIZANO [id number] Laura Seybold 2023-02-24 11:30:00 2023-02-24 11:30:00 Outpatient PREZAS, GIOVANY LAURA PIZANO [id number] [facility] 2023-02-18 00:00:00 2023-02-18 00:00:00 Outpatient PREZAS, GIOVANY PIZANO [id number] Laura Enrique 2023-02-12 00:00:00 2023-02-12 00:00:00 Outpatient PREZAS, GIOVANY PIZANO [id number] Laura Enrique 2023-02-12 00:00:00 2023-02-12 00:00:00 Outpatient PREZAS, GIOVANY PIZANO [id number] [facility] 2023-02-11 00:00:00 2023-02-11 00:00:00 Outpatient PREZAS, GIOVANY PIZANO [id number] [facility] 2023-01-28 00:00:00 2023-01-28 00:00:00 Outpatient PREZAS, GIOVANY PIZANO [id number] [facility] 2023-01-28 00:00:00 2023-01-28 00:00:00 Outpatient PREZAS, GIOVANY PIZANO [id number] [facility] 2023-01-27 13:00:00 2023-01-27 13:00:00 Outpatient LABStephen PIZANO [id number] [facility] 2023-01-27 10:45:00 2023-01-27 10:45:00 Outpatient PREZAS, GIOVANY PIZANO [id number] [facility] 2023-01-27 00:00:00 2023-01-27 00:00:00 Outpatient PREZAS, GIOVANY PIZANO [id number] [facility] 2022-12-26 17:57:00 2022-12-26 20:20:00 Emergency Marylou Johnson [facility] [id number] [facility] 2022-12-26 17:57:00 2022-12-26 20:20:00 Emergency X MARYLOU JOHNSON [facility] ERT [id number] [facility] 2022-06-11 11:10:00 2022-06-11 12:41:00 Emergency EM Ted Schultz [facility] ER [id number] [facility] 2021-02-09 23:10:00 2021-02-10 00:19:00 Emergency EM [facility] [id number] [facility] Results Test Description Test Time Test Comments Results Result Co mments Source [facility], [address], [place], [address], POC [id number] 05:04:00* Test Item Value Reference Range Interpretation [...] PT value based on a regression analysis. [facility], [address], [place], [address], URINE DRUG SCREEN [id number] 02:46:00* Test Item Value Reference Range Interpretation [...] results should not beused for non-medical purposes. [facility], [address], [place], [address], POC,HCG URINE, [id number] 02:38:00* Test Item Value Reference Range Interpretation Comme nts POC,HCG URINE, QUALITATIVE ( test code = EDHCGU) Negative [facility] [address] [facility] [address], [place], [address], URINALYSIS [id number] 02:32:00* Test Item Value Reference Range Interpretation [...] ESTERASE (test code = EDLEUK) Negative Negative [facility], [address], [place], [address], - CT ABD PELVIS W/O [id number] 02:32:00 [facility] H[facility]PITAL[facility]: BREANNA JIMENEZ : 1990 Sex: FName: BREANNA JIMENEZ [facility] : 1990 Age/S: 32 / F [address] Unit #: [id number] Loc: [place] [address] Phys: Jose Maki MD Acct: [id number] Dis Date: Status: PRE ER PHONE #: Exam Date: 04/14/2023 2666 FAX #: Reason: epigastric abd pain suspect gastroparesis EXAMS: CPT CODE: [id number] CT ABD PELVIS W/O CONT 72329 - CT ABD PELVIS W/O CONT INDICATION / CLINICAL INFORMATION: epigastric abd pain suspect gastroparesis COMPARISON: None available. TECHNIQUE:CT of the abdomen and pelvis without IV contrast. Dose reduction techniques were utilized. FINDINGS: Noncontrast CT limits evaluation of solid and vascular organs. The soft tissues are unremarkable.The osseous structures demonstrate no concerning lytic or [...] 1 Signed Report (CONTINUED) Name: BREANNA JIMENEZ [facility] FSED : 1990 Age/S: 32 / F [address] Unit #: [id number] Loc: [place] [address] Phys: Jose Maki MD Acct: [id number] Dis Date: Status: PRE ER PHONE #: Exam Date: 04/14/2023226 FAX #: Reason: epigastric abd pain suspect gastroparesis EXAMS: CPT CODE: [id number] CT ABD PELVIS W/O CONT 95192 (Continued) CC: Jose Maki MD Technologist:Milagro Mcmillan RT (R) CT CTDI: 8 DLP: 395 Trnscb Date/Time: 04/14/2023 (023) [email or web address] Orig Print D/T: S: 04/14/2023 (023) PAGE 2 Signed ReportCOMPREHENSIVE METABOLIC [id number] 02:31:00* Test Item Value Reference Range Interpretation [...] code = EDALP) 127 U/L 42-141 [facility], [address], [address], POC,[id number] 02:31:00* Test Item Value Reference Range Interpretation Comme [facility] POC,AMYLASE (test code = EDAMY) 118 U/L 14-[address] [facility], [address], [place], [address], COMPLETE BLOOD COUNT (CBC)2023-04-14 02:21:00* Test Item Value Reference Range Interpretation Comme [facility] POC,WHITE BLOOD CELL (test c ode [...] code = EDMPVP) 13.3 fL 7.9-13.3 N [facility], [address], [place], [address], UA RFLX MICROSCOPIC [id number] 11:54:00* Test Item Value Reference Range Interpretation [...] Suprapubic PainURINE SOURCE: CLEAN CATCH URINEUR HCG [id number] 11:54:00* Test Item Value Reference Range Interpretation Comme nts UR HCG QUAL (test code = HCGQLU) NEGATIVE NEGATIVE Indication for culture: Suprapubic PainURINE SOURCE: CLEAN CATCH URINE COMPREHENSIVE METABOLIC [id number] 11:49:00* Test Item Value Reference Range Interpretation [...] code = ALKP) 105 U/L 45-117 N [id number] 11:49:00* Test Item Value Reference Range Interpretation Comme nts AMYLASE (test code = PARAM) 73 IU/L 25-115 N [id number] 11:49:00* Test Item Value Reference Range Interpretation Comme nts LIPASE (test code = LIP) 134 U/L 73-393 N CBC W/AUTO [id number] 11:33:00* Test Item Value Reference Range Interpretation [...] code = RBCM) NO NORMAL COMPREHENSIVE METABOLIC [id number] 16:11:00* Test Item Value Reference Range Interpretation [...] > or = 60 ml/min/1.73M2IF PATIENT IS -CROATIAN, MULTIPLY REPORTED RESULT BY1.21. [Automated message] The [...] code = ALKP) 139 U/L 45-117 H [id number] 16:11:00* Test Item Value Reference Range Interpretation Comme nts LIPASE (test code = LIP) 108 U/L 73-393 N URINALYSIS W REFLEX [id number] 16:05:00* Test Item Value Reference Range Interpretation [...] UAMICRO) Y= DO UA MICRO UR HCG [id number] 16:05:00* Test Item Value Reference Range Interpretation Comme nts UR HCG QUAL (test code = HCGQLU) NEGATIVE NEGATIVE URINALYSIS W REFLEX [id number] 16:05:00* Test Item Value Reference Range Interpretation [...] = UAMICRO) Y= DO UA MICRO UA [id number] 16:05:00* Test Item Value Reference Range Interpretation Comme nts UA WBC (test code = WBCU) 0-2 #/hpf 0-5 UA RBC (test code = RBCU) 0-2 #/hpf 0-5 UA EPITHELIAL CELLS (test co de = EPIU) 2+ /hpf NEG,FEW A UA BACTERIA (test code = BACU) FEW /hpf NEGATIVE A UA AMORPHOUS SEDIMENT (test code = AMORU) FEW /hpf NEG,FEW UR HCG [id number] 16:05:00* Test Item Value Reference Range Interpretation Comme nts UR HCG QUAL (test code = HCGQLU) NEGATIVE NEGATIVE URINALYSIS W REFLEX [id number] 16:05:00* Test Item Value Reference Range Interpretation [...] UAMICRO) Y= DO UA MICRO UR HCG [id number] 16:05:00* Test Item Value Reference Range Interpretation Comme nts UR HCG QUAL (test code = HCGQLU) NEGATIVE NEGATIVE DRUGS OF ABUSE [id number] 16:01:00* Test Item Value Reference Range Interpretation [...] 300 NG/MLPHENCYCLIDINE 25 NG/ML URINALYSIS W REFLEX [id number] 15:58:00* Test Item Value Reference Range Interpretation [...] NEEDED? (test code = UAMICRO) UR HCG [id number] 15:58:00* Test Item Value Reference Range Interpretation Comme nts UR HCG QUAL (test code = HCGQLU) NEGATIVE NEGATIVE CBC W/AUTO [id number] 15:52:00* Test Item Value Reference Range Interpretation [...] = RBCM) NO NORMAL URINALYSIS W REFLEX [id number] 13:00:00* Test Item Value Reference Range Interpretation [...] Y= DO UA MICRO UA ICTOTEST FOR [id number] 13:00:00* Test Item Value Reference Range Interpretation Comme nts UA ICTOTEST FOR BILIRUBIN (t est code = ICTOU) POSITIVE NEGATIVE A UA [id number] 13:00:00* Test Item Value Reference Range Interpretation Comme nts UA WBC (test code = WBCU) 0-2 #/hpf 0-5 UA RBC (test code = RBCU) 3-5 #/hpf 0-5 UA EPITHELIAL CELLS (test co de = EPIU) FEW /hpf NEG,FEW UA BACTERIA (test code = BACU) FEW /hpf NEGATIVE A UA MUCUS (test code = MUCU) 1+ /hpf NEG,FEW A UR HCG [id number] 13:00:00* Test Item Value Reference Range Interpretation Comme nts UR HCG QUAL (test code = HCGQLU) NEGATIVE NEGATIVE DRUGS OF ABUSE [id number] 12:57:00* Test Item Value Reference Range Interpretation [...] 300 NG/MLPHENCYCLIDINE 25 NG/ML URINALYSIS W REFLEX [id number] 12:56:00* Test Item Value Reference Range Interpretation [...] Y= DO UA MICRO UA ICTOTEST FOR [id number] 12:56:00* Test Item Value Reference Range Interpretation Comme nts UA ICTOTEST FOR BILIRUBIN (t est code = ICTOU) POSITIVE NEGATIVE A UR HCG [id number] 12:56:00* Test Item Value Reference Range Interpretation Comme nts UR HCG QUAL (test code = HCGQLU) NEGATIVE NEGATIVE URINALYSIS W REFLEX [id number] 12:53:00* Test Item Value Reference Range Interpretation [...] UAMICRO) Y= DO UA MICRO UR HCG [id number] 12:53:00* Test Item Value Reference Range Interpretation Comme nts UR HCG QUAL (test code = HCGQLU) NEGATIVE NEGATIVE URINALYSIS W REFLEX [id number] 12:53:00* Test Item Value Reference Range Interpretation [...] UAMICRO) Y= DO UA MICRO UR HCG [id number] 12:53:00* Test Item Value Reference Range Interpretation Comme nts UR HCG QUAL (test code = HCGQLU) NEGATIVE NEGATIVE - XR ABDOMEN [id number] 12:16:00 [facility] 1990 Sex: F FAX: Sawyer Centeno II [place]: St: PRE Name: BREANNA QUEEN [facility] : 1990 Age/S: 30/F [address] Unit #: [id number] Loc: [place] [address] Phys: Sawyer Centeno II, MD Acct: [id number] Dis Date: Status: PRE ER PHONE #: Exam Date: 05/19/2020 1212 FAX #: Reason: abdominal pain EXAMS: CPT CODE: [id number] XR ABDOMEN 2V 75984 - XR ABDOMEN 2V PROVIDED REASON FOR [...] M.D. CC: Technologist: RT Bekah (Gretta) CT Trnmird Date/Time/By: 05/19/2020 (1216) : By: [email or web address] Orig Print D/T: S: 05/19/2020 (0481) PAGE 1 Signed ReportBASIC METABOLIC PANEL 2020-05-19 [...] > or = 60 ml/min/1.73M2IF PATIENT IS -CROATIAN, MULTIPLY REPORTED RESULT BY1.21. [Automated message] The system which generated this result transmitted reference range: >=60. The reference range was not used to interpret this result as normal/abnormal. CREATININE (test code = CREAT) 0.64 mg/dl 0.55-1.02 N CALCIUM (test code = CA) 9.8 mg/dL 8.5-10.1 N LIVER [id number] 12:08:00* Test Item Value Reference Range Interpretation [...] code = ALKP) 119 U/L 45-117 H [id number] 12:08:00* Test Item Value Reference Range Interpretation Comme nts LIPASE (test code = LIP) 67 U/L 73-393 L CBC W/AUTO [id number] 11:43:00* Test Item Value Reference Range Interpretation [...] = RBCM) NO NORMAL URINALYSIS W REFLEX [id number] 22:06:00* Test Item Value Reference Range Interpretation [...] MUCU) 2+ /hpf NEG,FEW A BASIC METABOLIC [id number] 21:54:00* Test Item Value Reference Range Interpretation [...] > or = 60 ml/min/1.73M2IF PATIENT IS -CROATIAN, MULTIPLY REPORTED RESULT BY1.. CREATININE (test code = CREAT) 0.70 mg/dL 0.51-0.95 N CALCIUM (test code = CA) 9.3 mg/dL 8.5-10.1 N LIVER [id number] 21:54:00* Test Item Value Reference Range Interpretation [...] code = ALKP) 69 U/L 50-136 N [id number] 21:54:00* Test Item Value Reference Range Interpretation Comme nts LIPASE (test code = LIP) 63 U/L 73-393 L BASIC METABOLIC [id number] 21:53:00* Test Item Value Reference Range Interpretation [...] > or = 60 ml/min/1.73M2IF PATIENT IS -CROATIAN, MULTIPLY REPORTED RESULT BY03.01. CREATININE (test code = CREAT) 0.70 mg/dL 0.51-0.95 N CALCIUM (test code = CA) 9.3 mg/dL 8.5-10.1 N LIVER [id number] 21:53:00* Test Item Value Reference Range Interpretation [...] ( test code = ALKP) U/L 50-136 [id number] 21:53:00* Test Item Value Reference Range Interpretation Comme nts LIPASE (test code = LIP) 63 U/L 73-393 L BASIC METABOLIC [id number] 21:52:00* Test Item Value Reference Range Interpretation [...] > or = 60 ml/min/1.73M2IF PATIENT IS -CROATIAN, MULTIPLY REPORTED RESULT BY1.21. CREATININE (test code = CREAT) 0.70 mg/dL 0.51-0.95 N CALCIUM (test code = CA) 9.3 mg/dL 8.5-10.1 N LIVER [id number] 21:52:00* Test Item Value Reference Range Interpretation [...] ( test code = ALKP) U/L 50-136 [id number] 21:52:00* Test Item Value Reference Range Interpretation Comme nts LIPASE (test code = LIP) 63 U/L 73-393 L BASIC METABOLIC [id number] 21:51:00* Test Item Value Reference Range Interpretation [...] > or = 60 ml/min/1.73M2IF PATIENT IS -CROATIAN, MULTIPLY REPORTED RESULT BY1.21. CREATININE (test code = CREAT) 0.70 mg/dL 0.51-0.95 N CALCIUM (test code = CA) 9.3 mg/dL 8.5-10.1 N LIVER [id number] 21:51:00* Test Item Value Reference Range Interpretation [...] ( test code = ALKP) U/L 50-136 [id number] 21:51:00* Test Item Value Reference Range Interpretation Comme nts LIPASE (test code = LIP) 63 U/L 73-393 L BASIC METABOLIC [id number] 21:49:00* Test Item Value Reference Range Interpretation [...] = CA) 9.3 mg/dL 8.5-10.1 N LIVER [id number] 21:49:00* Test Item Value Reference Range Interpretation [...] ( test code = ALKP) U/L 50-136 [id number] 21:49:00* Test Item Value Reference Range Interpretation Comme nts LIPASE (test code = LIP) 63 U/L 73-393 L BASIC METABOLIC [id number] 21:48:00* Test Item Value Reference Range Interpretation [...] = CA) 9.3 mg/dL 8.5-10.1 N LIVER [id number] 21:48:00* Test Item Value Reference Range Interpretation [...] ( test code = ALKP) U/L 50-136 [id number] 21:48:00* Test Item Value Reference Range Interpretation Comme nts LIPASE (test code = LIP) U/L 73-393 BASIC METABOLIC [id number] 21:46:00* Test Item Value Reference Range Interpretation [...] (test code = CA) mg/dL 8.5-10.1 LIVER [id number] 21:46:00* Test Item Value Reference Range Interpretation [...] ( test code = ALKP) U/L 50-136 [id number] 21:46:00* Test Item Value Reference Range Interpretation Comme nts LIPASE (test code = LIP) U/L 73-393 CBC W/AUTO [id number] 21:43:00* Test Item Value Reference Range Interpretation [...] Notes Date/Time Note Provider Source 2023-04-14 02:04:00 [id number]: 04:00 [facility] [facility] ([facility])EMERGENCY PROVIDER REPORTREPORT#:[id number] REPORT STATUS: SignedDATE:04/14/23 TIME: 0204 PATIENT: BREANNA JIMENEZ UNIT #: [id number]#: [id number] ROOM/BED:AGE: 32 SEX: F PCP PHYS: No Primary or Family PhysicianSERVICE AUTHOR: Jose Maki MD * ALL edits or amendments must be made on the electronic/computer document * HPI-Abd Pain F Under 40 Free Text HPI NotesFree Text HPI Rwosv14-elwk-vrz presents with abdominal pain that started around [...] (5.0 - 8.0) 7.0 POC Ur Specif [place] (1.001 - 1.035) 1.025 POC Urine Protein [...] or a call to 911. at 0504RPT #:[id number] OF REPORTEDEmergen department pusrfb0373-10-16Q24:04:00H.CGDZ04652000-2954J VAvailable for patient ddlhLKZFUCHOJPUSGL9480-74-63P16:04:38 [facility] 2023-02-24 11:47:47 HVBiyqVDG2bGlMaDB8rHn0KEtbTo8l3mZ6YcZQ/f jHA9B BWVmt+w4E7uuNq5ZGZt0263-10-78T28:47:47Formatt ing of this note is different from the original.Chief ComplaintPatient presents withFollow-Up Visit1 month follow up visitLauren Solaresectronically signed by Miriam French LVN at 02/24/2023 11:48 AM VXJ86996-7Gbqdn GyoiYO7930-77-41T73:48:14Nurse NoteTXT1.2.840.287107.1.13.131.2.7.2.039441|3 [id number] for patient aamb44079-1Owjbm NoteLNNARRATIVEFormatted C-CDA narrative [facility] [place], [place] [address]ZTPMRNGARECNIUTEQB8996912461UCCJ8154-40- 16T11:48:141.2.840.144442.1.72.3.15|1.2.840.1 51908.1.13.131.2.7.2.727879_[id number] [facility] 2022-06-11 11:33:00 BP9519965094YM/p9bZIuebileOlOb9oL7C9httz c+eVJ M38gneNjvY1+FLoVGlNvRCPNWPGLZKf2423-93-17V19: 33:00 [facility] ([facility])EMERGENCY PROVIDER REPORTREPORT#:[id number] REPORT STATUS: SignedDATE:06/11/22 TIME: 1133 PATIENT: BREANNA JIMENEZ UNIT #: [id number]#: [id number] ROOM/BED:AGE: 32 SEX: F PCP PHYS: Undefined [...] % (Auto) (16 - 50 %) 22.9 [place] % (Auto) (0.0 - 13.0 %) 9.8 [...] pH (4.6 - 8.0) 7.0 Ur Specific [place] (1.001 - 1.035) 1.020 Urine Protein (NEGATIVE [...] yesterday. After discussion patient states was [facility] yesterdayand was prescribed compazine/reglan after blood [...] or a call to 911. at 1245RPT #:[id number] OF REPORTEDEmergency department osqwin3046-65-88P11:33:00H.QCVQ34461411-8906B VAvailable for patient kpxoGKYWSWHXTHPVJR2588-38-50X88:45:50 [facility] 2021[facility] 23:43:00 [id number]KRgf+JM qb4HT GefDGDq2N9Ec3C2aMd7bEanTdITluG40719-42-95D56: 43:00 [facility] ([facility])EMERGENCY PROVIDER REPORTREPORT#:[id number] REPORT STATUS: SignedDATE:02/09/21 TIME: 2343 PATIENT: BREANNA JIMENEZ UNIT #: [id number]#: [id number] ROOM/BED:AGE: 30 SEX: F PCP PHYS: No Primary or Family PhysicianSERVICE AUTHOR: Kaelyn Peguero MD * ALL edits or amendments must be made on the electronic/computer document * REG-Qeu-Dfcy Illness GeneralConfirmed Patient YesPatient Type New patientInitial Greet Date/Time 02/09/21 2312 PresentationChief Complaint Body aches, Chills, Cough Free Text HPI NotesFree Text HPI Xicns58-rnfh-qxo female comes emergency room complaining of cough, body aches, chills, that began 2 days ago. Patient has been traveling in [facility] and apparently although she [...] (2008). Additional Surgical Historybilateral ureter reattachment 1997 [facility] 2018 Botox injection to pylorusAlcohol [...] new symptoms or worsening symptoms. at 0652RPT #:[id number] OF REPORTEDEmergency department ifwhkj0038-44-89P04:43:00H.STPH72886752-3883B VAvailable for patient fpdmLKRHLOZTLGBEEL6737-86-03C90:53:06 [facility] 2020-06-24 15:35:00 NNtrsqznfwf02752285CR9BT+L2Bulftbsz1rszp n9MbG cw++6/7euveZ1mscPzk1+NnE7/SUpw4nz1P2w27016-85 -16T15:35:00 [facility] ([facility])EMERGENCY PROVIDER REPORTREPORT#:[id number] REPORT STATUS: SignedDATE:06/24/20 TIME: 1534 PATIENT: BREANNA JIMENEZ UNIT #: [id number]#: [id number] ROOM/BED:AGE: 30 SEX: F PCP PHYS: No Primary or Family PhysicianSERVICE AUTHOR: Maicol Coy MD * ALL edits or amendments must be made on the electronic/computer document * HPI-Abd Pain F Under 40 GeneralInitial Greet Date/Time 06/24/20 1529PCPDr. [place] in [place] PresentationChief Complaint Abdominal pain, Nausea, Vomiting [...] Nothing Free Text HPI NotesFree Text HPI Thbkr70v M2 LMP 19 May 2020 c/o acute on chronic gastroparesis related to IBS and/or THC use for past 2d with nonbloody N/V x 6. She is visiting from [place]. Risk-Abd Pain F Under 40)( Ectopic Risk [...] % (Auto) (16 - 50 %) 48.2 [place] % (Auto) (0.0 - 13.0 %) 13.0 [...] pH (4.6 - 8.0) 7.0 Ur Specific [place] (1.001 - 1.035) 1.020 Urine Protein (NEGATIVE [...] the plan for smoking cessation. at 2053RPT #:[id number] OF REPORTEDEmergency department jrxycd6476-76-26G35:35:00H.INJD24134758-7392L VAvailable for patient ayjgLKMKGEOEZWCEZL9677-90-16Z28:53:15 [facility] 2020-05-19 12:11:00 XVqgwktfjxf23004493Vzr26FuSAdRpJFeOoC7r8 3xkQV a2hjLOWnlmZ1yCvlaGDv3zCLiSfHI8R7KFPA5l8857-79 -10T12:11:00 [facility] ([facility])EMERGENCY PROVIDER REPORTREPORT#:[id number] REPORT STATUS: SignedDATE:05/19/20 TIME: 1211 PATIENT: BREANNA QUEEN UNIT #: [id number]#: [id number] ROOM/BED:AGE: 30 SEX: F PCP PHYS: Brayan WinnERVICE AUTHOR: Sawyer Centeno II, MD * ALL edits or amendments must be made on the electronic/computer document * HPI-Abd Pain F Under 40 Free Text HPI NotesFree Text HPI NotesThe patient tells me she has a history of gastroparesis but is not a diabetic. She tells me that she is from [facility] and that she has GI specialist in [facility] whose name is Dr. Hendrix. She tells [...] pH (4.6 - 8.0) 6.0 Ur Specific [place] (1.001 - 1.035) >= 1.030 Urine Protein [...] (Auto) (16 - 50 %) 9.5 L [place] % (Auto) (0.0 - 13.0 %) 4.3 [...] Entered: 05/19/2020 1219 IMPRESSION:No acute process. Location: A41Xxeyglbxis By: Emily CABALLERO M.D. Imaging StatementRadiographic studies [...] HTN F/u with PCP/other doc at 1708RPT #:[id number] OF REPORTEDEmergency department wxpliv2340-70-78B02:11:00H.OYIU71808489-8415J VAvailable for patient lmnzPILGQYSZOTURTF6527-12-40F69:08:49 [facility] 2019-07-30 21:12:00 SRntvhdpbwo763797010dd6Lah+z44of/FcEkEtU j+eWE jXsKYt6jSAFfSGKrNPAX9guLeFz6qUIr121dO65314-22 -20T21:12:00 [facility] ([facility])EMERGENCY PROVIDER REPORTREPORT#:[id number] REPORT STATUS: SignedDATE:07/30/19 TIME: 2111 PATIENT: BREANNA JIMENEZ UNIT #: [id number]#: [id number] ROOM/BED:AGE: 29 SEX: F PCP PHYS: No [...] (Auto) (16.0 - 50.0 %) 15.3 L [place] % (Auto) (0.0 - 13.0 %) 5.2 [...] pH (4.6 - 8.0) 6.0 Ur Specific [place] (1.001 - 1.035) 1.017 Urine Protein (NEGATIVE [...] of Care TestingUrinalysis Interpretation Urinalysis NL Re-Evaluation [facility] )( Re-Evaluation/Progress #1Time of Re-Eval 2228)( Re-Eval Status ImprovedRe-Eval Abdomen SoftEval Following Treatment Pt. feels better, Condition improvedPain Re-Evaluation Pain improvedPlan Post Re-Eval Plan discharge Abd Pain MDM Note F < 40The patient is resting comfortably and feels better, is alert and in no distress. The repeat examination is unremarkable and benign; in particular, there is no discomfort at [facility] point. The history, exam, diagnostic testing, and [...] or a call to 911. at 0000RPT #:[id number] OF REPORTEDEmergency department qemaeu8563-83-56G17:12:00H.[id number] VAvailable for patient uqjcQAZHQAIBGXPYYH9445-09-63I27:00:25 [facility] 2019-07-30 21:12:00 JLhceziqfgs734081496H30yUXB5NroNNpFKbnWU Mili+2 SDG9kRjcAeU5BP2elJJMBKUJVeCatl5bZa97hM3056-76 -20T21:12:00 [facility] ([facility])EMERGENCY PROVIDER REPORTREPORT#:[id number] REPORT STATUS: SignedDATE:07/30/19 TIME: 2111 PATIENT: BREANNA JIMENEZ UNIT #: [id number]#: [id number] ROOM/BED:AGE: 29 SEX: F PCP PHYS: No [...] (Auto) (16.0 - 50.0 %) 15.3 L [place] % (Auto) (0.0 - 13.0 %) 5.2 [...] pH (4.6 - 8.0) 6.0 Ur Specific [place] (1.001 - 1.035) 1.017 Urine Protein (NEGATIVE [...] call to 911. at 0000 at 0024RPT #:[id number] OF REPORTEDEmerbridgeway hospital department fywwxs9924-23-69W27:12:00H.[id number] VAvailable for patient nusqVPCJQXWAEBSZYG8671-78-47J57:24:32 [facility]"
--- NOTE | 2023-05-14 21:33 | EDPHYS ---
[facility] Name: Efrem Pastor Age: 33 yrs Sex: Female : 1990 Arrival Date: 05/14/2023 Time: 20:23 Bed 5 Private MD: Clarence Cooper ED Physician Benson Bae HPI: 05/13 21:28 This 33 yrs old Female presents to ER via Ambulatory with complaints of Abdominal Pain, sp3 Nausea, Body aches. 21:29 33-year-old female with gastroparesis nerve entrapment, irritable bowel presents to the [facility] ED with chief complaint vomiting and body wide pain. She is on buprenorphine and transdermal. She denies any other abnormalities or change from her usual presentation. She denies chest pain, shortness of breath, rash, syncope, near syncope, or any other symptoms. Review of systems otherwise negative.. Historical: - Allergies: 20:33 Haldol; ha1 20:33 Scopolamine HBr; ha1 - PMHx: 20:33 Acute cutaneous nerve entrapment syndrome; ACNE (Unknown); Anxiety; Gastroparesis; ha1 Irritable bowel syndrome; neuropathy; PTSD; - PSHx: 20:33 bilateral ureter attachment; Cholecystectomy; leep procedure; Lumpectomy of breast; ha1 right breast; - Immunization history:: Adult Immunizations unknown. - Infectious Disease History:: Denies. - Social history:: Smoking status: Reported history of juuling and/or vaping. ROS: 21:29 Constitutional: Negative for fever, chills, and weight loss, Eyes: Negative for injury, sp3 pain, redness, and discharge, ENT: Negative for injury, pain, and discharge, Neck: Negative for injury, pain, and swelling, Cardiovascular: Negative for chest pain, palpitations, and edema, Respiratory: Negative for shortness of breath, cough, wheezing, and pleuritic chest pain, Back: Negative for injury and pain, MS/Extremity: Negative for injury and deformity, Skin: Negative for injury, rash, and discoloration, Neuro: Negative for headache, weakness, numbness, tingling, and seizure, 21:29 All other systems are negative, Exam: 21:30 Constitutional: This is a well developed, well nourished patient who is awake, alert, sp3 and in no acute distress. Head/Face: Normocephalic, atraumatic. Eyes: Pupils equal round and reactive to light, extra-ocular motions intact. Lids and lashes normal. Conjunctiva and sclera are non-icteric and not injected. Cornea within normal limits. Periorbital areas with no swelling, redness, or edema. ENT: Nares patent. No nasal discharge, no septal abnormalities noted. External auditory canals are clear. Oropharynx with no redness, swelling, or masses, exudates, or evidence of obstruction, uvula midline. Mucous membranes moist. Neck: Trachea midline, no thyromegaly or masses palpated, and no cervical lymphadenopathy. Supple, full range of motion without nuchal rigidity, or vertebral point tenderness. No Meningismus. Chest/axilla: Normal chest wall appearance and motion. Nontender with no deformity. No lesions are appreciated. Respiratory: Lungs have equal breath sounds bilaterally, clear to auscultation and percussion. No rales, rhonchi or wheezes noted. No increased work of breathing, no retractions or nasal flaring. Back: No spinal tenderness. No costovertebral tenderness. Full range of motion. Skin: Warm, dry with normal turgor. Normal color with no rashes, no lesions, and no evidence of cellulitis. MS/ Extremity: Pulses equal, no cyanosis. Neurovascular intact. Full, normal range of motion. Neuro: Awake and alert, GCS 15, oriented to person, place, time, and situation. Cranial nerves II-XII grossly intact. Motor strength 5/5 in all extremities. Sensory grossly intact. Cerebellar exam normal. Normal gait. Psych: Awake, alert, with orientation to person, place and time. Behavior, mood, and affect are within normal limits. 21:30 Cardiovascular: Heart rate on my exam is 10 5-1 08 range., 21:30 Abdomen/GI: Soft, with no rebound, guarding or peritoneal signs. Patient states it is painful on my exam diffusely., Vital Signs: 20:29 BP 133 / 98; Pulse 120; Resp 18 S; Temp 98.2(T); Pulse Ox 99% on R/A; Weight 65.77 kg; ha1 Height 5 ft. 2 in. ; 20:29 Body Mass Index 26.52 (65.77 kg, 157.48 cm) ha1 MDM: 20:50 Patient medically screened. sp3 21:31 Data reviewed: vital signs, nurses notes, old medical records. ED course: 33-year-old sp3 female with gastroparesis and vomiting. I advised her due to her buprenorphine and that further narcotics is probably not indicated. I told her we can give her IV fluids, antiemetics and general support. She demanded narcotic pain medication and states that that is why she is here and what she always gets. She took off all of her monitoring and walked out of the ER in no acute distress. I told her she may return if she changes her mind. This will be an informed discharge however she left against my recommendations.. Administered Medications: No medications were administered Disposition Summary: 05/14/23 21:32 Discharge Ordered Notes: Location: Home sp3 Condition: Stable sp3 Diagnosis - Gastroparesis sp3 Followup: sp3 - With: Private Physician - When: Upon discharge from the Emergency Department - Reason: Continuance of care Discharge Instructions: - Discharge Summary Sheet sp3 - Gastroparesis sp3 Forms: - Medication Reconciliation Form sp3 - Thank You Letter sp3 - Antibiotic Education sp3 - Prescription Opioid Use sp3 - Patient Portal Instructions sp3 - Leadership Thank You Letter sp3 Signatures: Benson Bae MD MD sp3 Linda Block RN RN ha1 Corrections: (The following items were deleted from the chart) 21:33 21:31 ED course: 33-year-old female with gastroparesis and vomiting. I advised her due sp3 to her buprenorphine and that further narcotics is probably not indicated. I told her we can give her IV fluids, antiemetics and general support. She demanded narcotic pain medication and states that that is why she is here and what she always gets. She took off all of her monitoring and walked out of the ER in no acute distress.. sp3
--- NOTE | 2023-05-14 21:33 | ER ---
Nurse's Notes [facility] Name: Efrem Pastor Age: 33 yrs Sex: Female : 1990 Arrival Date: 05/14/2023 Time: 20:23 Bed 5 Private MD: Clarence Cooper Diagnosis: Gastroparesis Presentation: 05/13 20:29 Chief complaint: Patient states: I have been having nausea, vomiting, body ache since ha1 yesterday. I have a history of gastroparesis and I ate some food yesterday that might have trigger it. Coronavirus screen: Vaccine status: Patient reports receiving the 2nd dose of the covid vaccine. [employer]. Ebola Screen: No symptoms or risks identified at this time. Initial Sepsis Screen: Does the patient meet any 2 criteria? No. Patient's initial sepsis screen is negative. Does the patient have a suspected source of infection? No. Patient's initial sepsis screen is negative. Risk Assessment: Do you want to hurt yourself or someone else? Patient reports no desire to harm self or others. Onset of symptoms was May 13, 2023. 20:29 Method Of Arrival: Ambulatory ha1 20:29 Acuity: BELINDA 3 ha1 Triage Assessment: 20:33 General: Appears uncomfortable, ill, Behavior is calm, cooperative. Pain: Complains of ha1 pain in abdomen Pain does not radiate. Pain currently is 9 out of 10 on a pain scale. Quality of pain is described as throbbing. Neuro: Level of Consciousness is awake, alert, obeys commands, Oriented to person, place, time, situation. Cardiovascular: Patient's skin is warm and dry. Respiratory: Airway is patent Respiratory effort is even, unlabored, Respiratory pattern is regular, symmetrical. GI: Abdomen is flat, non-distended, Reports lower abdominal pain, upper abdominal pain, diarrhea, nausea, vomiting. Historical: - Allergies: 20:33 Haldol; ha1 20:33 Scopolamine HBr; ha1 - PMHx: 20:33 Acute cutaneous nerve entrapment syndrome; ACNE (Unknown); Anxiety; Gastroparesis; ha1 Irritable bowel syndrome; neuropathy; PTSD; - PSHx: 20:33 bilateral ureter attachment; Cholecystectomy; leep procedure; Lumpectomy of breast; ha1 right breast; - Immunization history:: Adult Immunizations unknown. - Infectious Disease History:: Denies. - Social history:: Smoking status: Reported history of juuling and/or vaping. Screenin:11 [facility] ED Fall Risk Assessment (Adult) History of falling in the last 3 months, jj7 including since admission No falls in past 3 months (0 pts) Confusion or Disorientation No (0 pts) Intoxicated or Sedated No (0 pts) Impaired Gait No (0 pts) Mobility Assist Device Used No (0 pt) Altered Elimination No (0 pt) Score/Fall Risk Level 0 - 2 = Low Risk Oriented to surroundings, Maintained a safe environment, Educated pt \T\ family on fall prevention, incl call for assistance when getting out of bed. Abuse screen: Denies threats or abuse. Nutritional screening: No deficits noted. Tuberculosis screening: No symptoms or risk factors identified. Assessment: 21:11 General: Appears in no apparent distress. comfortable, Behavior is calm, cooperative, jj7 appropriate for age. Pain: Complains of pain in epigastric area. GI: Abd is soft and non tender X 4 quads. Abd is non tender X 4 quads Reports diarrhea, epigastric pain, nausea, vomiting. 21:35 Reassessment: PT LEFT AFTER BEING RECOMMENDED TREATMENT. PT REFUSED TO STAY FOR jj7 TREATMENT. Vital Signs: 20:29 BP 133 / 98; Pulse 120; Resp 18 S; Temp 98.2(T); Pulse Ox 99% on R/A; Weight 65.77 kg; ha1 Height 5 ft. 2 in. ; 20:29 Body Mass Index 26.52 (65.77 kg, 157.48 cm) ha1 ED Course: 20:26 Patient arrived in ED. mr 20:26 Clarence Cooper DO is Private Physician. mr 20:32 Benson Bae MD is Attending Physician. sp3 20:33 Triage completed. ha1 21:06 Marguerite Ozuna RN is Primary Nurse. jj7 21:11 Patient has correct armband on for positive identification. Bed in low position. Call jj7 light in reach. Side rails up X 1. Provided Education on: USE OF CALL MICHELE. Client placed on continuous cardiac and pulse oximetry monitoring. NIBP monitoring applied. 21:11 Arm band placed on right wrist. Patient placed in an exam room, on a stretcher. jj7 21:36 No provider procedures requiring assistance completed. Patient did not have IV access jj7 during this emergency room visit. Administered Medications: No medications were administered Medication: 21:11 VIS not applicable for this client. jj7 Outcome: 21:32 Discharge ordered by . june3 21:36 Discharged to home ambulatory, jj7 21:36 Condition: good 21:36 Discharge instructions given to PT GIVEN INFORMED DISCHARGE BY MD BAE. PT REFUSED TO WAIT FOR DISCHARGE INSTRUCTIONS 21:38 Patient left the ED. jj7 Signatures: Kira Murillo, Gui Reg Benson Walters MD MD sp3 Linda Block, RN RN ha1 Marguerite Ozuna RN RN jj7
[2023-05-14 23:49] VITALS: BP 133/98; TEMP 98.2; O2SAT 99
== END 2023-05-14 21:38 | disposition home or self-care (01) ==
LOC: ER 20:23
DX: K31.84 Gastroparesis (principal)
CPT/HCPCS: 99283

== ENCOUNTER 2023-05-21 21:44 | Emergency (ER) | payer SELFPAY ==
--- OUTSIDE RECORDS SUMMARY | 2023-05-21 21:48 | XMS REPORT | Continuity of Care Document ---
Author Name Unknown Address [address] [facility] [address] [place] [address] [facility] thconnect Address [address] [facility]. [address] [place] [address] Care Team Providers Care Can Tester Name Role Phone Kelton Daniels Jr. Primary Care Physician [phone] GIOVANY HAGER Attending Clinician Unavailable CAIT BRAGG Attending Clinician Unavailable Jose Maki Attending Clinician Unavailable LAB90 Attending Clinician Unavailable Marylou Johnson NP Attending Clinician [phone] Ted Schultz Attending Clinician Unavailable Kaelyn Peguero Attending Clinician Unavailable Physician, No Primary or Family Admitting Clinic monse Unavailable UNDEFINED Admitting Clinician Unavailable Payers Payer Name Policy Type Policy Number Effective Date Expirati on Date Source [place]/PLUS [id number] 2022 00:00:00 2023 00:00:00 BCBS 2 [id number] 2023 00:00:00 Problems Condition Name Condition Details [...] Vision loss Laura Seybold - Externa l Scopolam ine Propensi ty to adverse reaction s Active Other - See comments 2022-02 00:00: 00 Visual changes [facility] HALOPERI DOL DRUG INGREDI Active Med Other-Cmnt 2022-02 00:00: 00 [facility] SCOPOLAM INE DRUG INGREDI Active Other-Cmnt 2022-02 00:00: 00 [facility] Haloperi dol Propensi ty to adverse reaction s Active Other - See comments 2022-02 00:00: 00 Dystonic reactions [facility] haloperi dol DA Active SV HIVES - 00:00: 00 [facility] scopolam ine DA Active SV HIVES 06-11 00:00: 00 [facility] No Known Allergie s DA Active U 02-09 00:00: 00 [facility] No Known Allergie s DA Active U 06-24 00:00: 00 [facility] No Known Allergie s DA Active U 06-24 00:00: 00 [facility] scopolam ine DA Active [place] 0 4-10 00:00: 00 [facility] scopolam ine DA Active [place] RASH- 4-10 00:00: 00 [facility] No Known Allergie s DA Active U 07-29 00:00: 00 [facility] No Known Allergie s DA Active U 07-29 00:00: 00 [facility] No Known Drug Intolera nces DA Active U 10-24 00:00: 00 [facility] No Known Drug Intolera nces DA Active U NONE 10-24 00:00: 00 [facility] NO KNOWN ALLERGIE S Drug Class Active [facility] Social History Social Habit [...] Date Source Tobacco smoking consumption unknown [facility] Ex-smoker 2023-01-27 00:00:00 2023-01-27 00:00:00 [...] MG oral Tablet 02-24 00:00: 00 Yes [id number] 1{tbl} Q.5D Take 1 tablet by mouth 2 times daily as needed for pain. Laura hall Methocarbam ol 500 MG oral Tablet 02-24 00:00: 00 Yes [id number] 500mg QD Take 1 tablet (500 mg [...] MG oral Tablet 1-04 00:00: 00 Yes [id number] 25mg QD Take 1 tablet (25 mg total) by mouth daily as needed for nausea. Laura hall Valacyclovi r HCl (Valtrex) 500 MG oral Tablet 2022-02 2 00:00: 00 Yes [id number] 500mg Take 1 tablet (500 mg total) [...] On Thu12/26/22 at 2030, 1 mL [facility] penicillin g benzathine (BICILLIN L-A) injection 1.2 Million Units 2022-02 01:45: 00 12-27 01:53 :00 No 1.210 1.2 Million Units, Intramuscu lar, ONCE, 1 dose, On Thu12/26/22 at 1945, RONNIE
Re ason for Anti-Infec tive: Empiric Therapy for Suspected Infection< br>Empiric Therapy Site: HEENT
D uration of therapy: Once (ED) [facility] acetaminoph en (TYLENOL) tablet 650 mg 2022-02 01:45: 00 12-27 01:50 :00 No 650mg 650 mg, Oral, ONCE, 1 dose, On Thu12/26/22 at 1945, RONNIE [facility] ketorolac (TORADOL) injection 30 mg 2022-02 00:45: 00 12-27 00:59 :00 No 30mg 30 mg, Intramuscu lar, ONCE, 1 dose, On Thu12/26/22 at 1845, [facility] hydrocortis one 1 mg/4 mL in nystatin suspension- diphenhydrA MINE solution suspension 2022-02 00:00: 00 12-30 05:59 :00 No [id number] 15mL Take 15 mL by mouth every 6 (six) hours as needed for Pain (scale 4-6) for up to 3 days. [facility] Famotidine (PEPCID) 20 MG [...] Systolic blood pressure 2022-12-27 02:16:00 111 mm[Hg] [facility] Diastolic blood pressure 2022-12-27 02:16:00 82 mm[Hg] [facility] Heart rate 2022-12-27 02:16:00 93 /min [facility] Body temperature 2022-12-27 02:16:00 37.56 Caitlyn [facility] Respiratory rate 2022-12-27 02:16:00 20 /min [facility] Oxygen saturation in Arterial blood by Pulse oximetry 2022-12-27 02:16:00 96 /min [facility] Body height 2022-12-26 23:57:00 157.5 cm [facility] Body weight 2022-12-26 23:57:00 58.968 kg [facility] BMI 2022-12-26 23:57:00 23.78 kg/m2 [facility] Procedures Procedure Date / Time Performed Performing Clinicia n Source CBC WITH DIFF 2022-12-27 01:49:00 Marylou Johnson [facility] RAPID STREP SCREEN FOR GROUP A 2022-12-27 00:59:00 Marylou Johnson [facility] NOTICE OF PRIVACY PRACTICES 2022-12-26 23:28:27 Doctor Unassigned, [place] [facility] CONSENT/REFUSAL FOR DIAGNOSIS AND TREATMENT 2022-12-26 23:27:35 Doctor Unassigned, [place] [facility] Encounters Start Date/Time End Date/Time Encounter Type Admission Type Attending Clinicians Care Facility Care Department Encounter ID Source 2020-06-24 15:53:22 Inpatient [facility] [id number] [facility] 2020-05-19 11:42:02 In[facility] [id number] 2019-07-30 21:08:00 Inpatient [facility] ER [id number] [facility] 2023-05-04 14:30:00 2023-05-04 14:30:00 Outpatient PREZAGIOVANY Garcia LAURA PIZANO [id number] [facility] 2023-05-04 11:15:00 2023-05-04 11:15:00 Outpatient PREZAS, GIOVANY PIZANO [id number] [facility] 2023-05-04 11:00:00 2023-05-04 11:00:00 Outpatient LOUISE BRAGGR [facility] [id number] [facility] 2023-04-22 00:00:00 2023-04-22 00:00:00 Outpatient PREZAS, GIOVANY PIZANO [id number] [facility] 2023-04-14 02:00:00 2023-04-14 03:25:00 Emergency EM Glynn Jose [facility] ER [id number] 26 [facility] 2023-04-10 00:00:00 2023-04-10 00:00:00 Outpatient PREZAS, GIOVANYLEDY PIZANO [id number] [facility]23-[facility] 09:00:00 2023-03-27 09:00:00 Outpatient PREZAS, GIOVANY PIZANO [id number] [facility] 2023-03-27 00:00:00 2023-03-27 00:00:00 Outpatient PREZAS, GIOVANY PIZANO [id number] [facility] 2023-03-27 00:00:00 2023-03-27 00:00:00 Outpatient PREZAS, GIOVANY PIZANO [id number] [facility] 2023-03-26 00:00:00 2023-03-26 00:00:00 Outpatient PREZAS, GIOVANY PIZANO [id number] [facility] 2023-03-26 00:00:00 2023-03-26 00:00:00 Outpatient PREZAS, GIOVANY PIZANO [id number] [facility] 2023-03-25 14:00:00 2023-03-25 14:00:00 Outpatient PREZAS, GIOVANY DIALLOSEY [id number] [facility] 2023-03-10 00:00:00 2023-03-10 00:00:00 Outpatient PREZAS, GIOVANY PIZANO LAURA [id number] [facility] 2023-03-09 00:00:00 2023-03-09 00:00:00 Outpatient PREZAS, GIOVANY DIALLOSEY [id number] [facility] 2023-03-04 00:00:00 2023-03-04 00:00:00 Outpatient PREZAS, GIOVANY PIZANO LAURA [id number] [facility] 2023-[facility]-03 00:00:00 2023-03-03 00:00:00 Outpatient PREZAS, GIOVANY DIALLOHUMPHREY PIZANO [id number] [facility] 2023-03-02 00:00:00 2023-03-02 00:00:00 Outpatient PREZAS, GIOVANY PIZANO LAURA [id number] [facility] 2023-03-02 00:00:00 2023-03-02 00:00:00 Outpatient PREZAS, GIOVANY PIZANO LAURA [id number] [facility] 2023-03-02 00:00:00 2023-03-02 00:00:00 Outpatient PREZAS, GIOVANY DIALLOHUMPHREY PIZANO [id number] [facility] 2023-03-02 00:00:00 2023-03-02 00:00:00 Outpatient PREZAS, GIOVANY DIALLOHUMPHREY PIZANO [id number] [facility] 2023-02-27 00:00:00 2023-02-27 00:00:00 Outpatient PREZAS, GIOVANY DIALLOHUMPHREY PIZANO [id number] [facility] 2023-02-25 00:00:00 2023-02-25 00:00:00 Outpatient PREZAS, GIOVANY LAURA PIZANO [id number] Laura Seybold 2023-02-24 11:30:00 2023-02-24 11:30:00 Outpatient PREZAS, GIOVANY LAURA PIZANO [id number] [facility] 2023-02-18 00:00:00 2023-02-18 00:00:00 Outpatient PREZAS, GIOVANY PIZANO [id number] Laura Enrique 2023-02-12 00:00:00 2023-02-12 00:00:00 Outpatient PREZAS, GIOVANY PIZANO [id number] Laura Enrique 2023-02-12 00:00:00 2023-02-12 00:00:00 Outpatient PREZAS, GIOVANY PIZANO [id number] [facility] 2023-02-11 00:00:00 2023-02-11 00:00:00 Outpatient PREZAS, GIOVANY PIZANO [id number] [facility] 2023-01-28 00:00:00 2023-01-28 00:00:00 Outpatient PREZAS, GIOVANY PIZANO [id number] [facility] 2023-01-28 00:00:00 2023-01-28 00:00:00 Outpatient PREZAS, GIOVANY PIZANO [id number] [facility] 2023-01-27 13:00:00 2023-01-27 13:00:00 Outpatient LABStephen PIZANO [id number] [facility] 2023-01-27 10:45:00 2023-01-27 10:45:00 Outpatient PREZAS, GIOVANY PIZANO [id number] [facility] 2023-01-27 00:00:00 2023-01-27 00:00:00 Outpatient PREZAS, GIOVANY PIZANO [id number] [facility] 2022-12-26 17:57:00 2022-12-26 20:20:00 Emergency Marylou Johnson [facility] [id number] [facility] 2022-12-26 17:57:00 2022-12-26 20:20:00 Emergency X MARYLOU JOHNSON [facility] ERT [id number] [facility] 2022-06-11 11:10:00 2022-06-11 12:41:00 Emergency EM Ted Schultz [facility] ER [id number] 63 [facility] 2021-02-09 23:10:00 2021-02-10 00:19:00 Emergency EM [facility] [id number] [facility] Results Test Description Test Time Test Comments Results Result Co mments Source [facility], [address], [place], [address], POC [id number] 05:04:00* Test Item Value Reference Range Interpretation [...] PT value based on a regression analysis. [facility], [address], [place], [address], URINE DRUG SCREEN [id number] 02:46:00* Test Item Value Reference Range Interpretation [...] results should not beused for non-medical purposes. [facility], [address], [place], [address], POC,HCG URINE, [id number] 02:38:00* Test Item Value Reference Range Interpretation Comme nts POC,HCG URINE, QUALITATIVE ( test code = EDHCGU) Negative [facility] [address] [facility] [address], [place], [address], URINALYSIS [id number] 02:32:00* Test Item Value Reference Range Interpretation [...] ESTERASE (test code = EDLEUK) Negative Negative [facility], [address], [place], [address], - CT ABD PELVIS W/O [id number] 02:32:00 [facility] : 1990 Sex: FName: BREANNA JIMENEZ [facility] : 1990 Age/S: 32 / F [address] Unit #: [id number] Loc: [place] [address] Phys: Jose Maki MD Acct: [id number] Dis Date: Status: PRE ER PHONE #: Exam Date: 04/14/2023 0310 FAX #: Reason: epigastric abd pain suspect gastroparesis EXAMS: CPT CODE: [id number] CT ABD PELVIS W/O CONT 34051 - CT ABD PELVIS W/O CONT INDICATION [...] 1 Signed Report (CONTINUED) Name: BREANNA JIMENEZ [facility] FS[facility] : 1990 Age/S: 32 / F [address] Unit #: [id number] Loc: [place] [address] Phys: Jose Maki MD Acct: [id number] Dis Date: Status: PRE ER PHONE #: Exam Date: 04/14/2023226 FAX #: Reason: epigastric abd pain suspect gastroparesis EXAMS: CPT CODE: [id number] CT ABD PELVIS W/O CONT 71920 (Continued) CC: Jose Maki MD Technologist:Milagro Mcmillan RT (R) CT CTDI: 8 DLP: 395 Trnscb Date/Time: 04/14/2023 (023) [email or web address] Orig Print D/T: S: 04/14/2023 (023) PAGE 2 Signed ReportCOMPREHENSIVE METABOLIC [id number] 02:31:00* Test Item Value Reference Range Interpretation [...] code = EDALP) 127 U/L 42-141 [facility] [address], [address], POC,[id number] 02:31:00* Test Item Value Reference Range Interpretation Comme [facility] POC,AMYLASE (test code = EDAMY) 118 U/L 14-97 H [facility], [address], [address], COMPLETE BLOOD COUNT (CBC)2023-04-14 02:21:00* Test Item Value Reference Range Interpretation Comme [facility] POC,WHITE BLOOD CELL (test c ode [...] code = EDMPVP) 13.3 fL 7.9-13.3 N [facility], [address], [place], [address], UA RFLX MICROSCOPIC [id number] 11:54:00* Test Item Value Reference Range Interpretation [...] Suprapubic PainURINE SOURCE: CLEAN CATCH URINEUR HCG [id number] 11:54:00* Test Item Value Reference Range Interpretation Comme nts UR HCG QUAL (test code = HCGQLU) NEGATIVE NEGATIVE Indication for culture: Suprapubic PainURINE SOURCE: CLEAN CATCH URINE COMPREHENSIVE METABOLIC [id number] 11:49:00* Test Item Value Reference Range Interpretation [...] code = ALKP) 105 U/L 45-117 N [id number] 11:49:00* Test Item Value Reference Range Interpretation Comme nts AMYLASE (test code = PARAM) 73 IU/L 25-115 N [id number] 11:49:00* Test Item Value Reference Range Interpretation Comme nts LIPASE (test code = LIP) 134 U/L 73-393 N CBC W/AUTO [id number] 11:33:00* Test Item Value Reference Range Interpretation [...] code = RBCM) NO NORMAL COMPREHENSIVE METABOLIC [id number] 16:11:00* Test Item Value Reference Range Interpretation [...] > or = 60 ml/min/1.73M2IF PATIENT IS -GUAMANIAN, MULTIPLY REPORTED RESULT BY1.21. [Automated message] The [...] code = ALKP) 139 U/L 45-117 H [id number] 16:11:00* Test Item Value Reference Range Interpretation Comme nts LIPASE (test code = LIP) 108 U/L 73-393 N URINALYSIS W REFLEX [id number] 16:05:00* Test Item Value Reference Range Interpretation [...] UAMICRO) Y= DO UA MICRO UR HCG [id number] 16:05:00* Test Item Value Reference Range Interpretation Comme nts UR HCG QUAL (test code = HCGQLU) NEGATIVE NEGATIVE URINALYSIS W REFLEX [id number] 16:05:00* Test Item Value Reference Range Interpretation [...] = UAMICRO) Y= DO UA MICRO UA [id number] 16:05:00* Test Item Value Reference Range Interpretation Comme nts UA WBC (test code = WBCU) 0-2 #/hpf 0-5 UA RBC (test code = RBCU) 0-2 #/hpf 0-5 UA EPITHELIAL CELLS (test co de = EPIU) 2+ /hpf NEG,FEW A UA BACTERIA (test code = BACU) FEW /hpf NEGATIVE A UA AMORPHOUS SEDIMENT (test code = AMORU) FEW /hpf NEG,FEW UR HCG [id number] 16:05:00* Test Item Value Reference Range Interpretation Comme nts UR HCG QUAL (test code = HCGQLU) NEGATIVE NEGATIVE URINALYSIS W REFLEX [id number] 16:05:00* Test Item Value Reference Range Interpretation [...] UAMICRO) Y= DO UA MICRO UR HCG [id number] 16:05:00* Test Item Value Reference Range Interpretation Comme nts UR HCG QUAL (test code = HCGQLU) NEGATIVE NEGATIVE DRUGS OF ABUSE [id number] 16:01:00* Test Item Value Reference Range Interpretation [...] 300 NG/MLPHENCYCLIDINE 25 NG/ML URINALYSIS W REFLEX [id number] 15:58:00* Test Item Value Reference Range Interpretation [...] NEEDED? (test code = UAMICRO) UR HCG [id number] 15:58:00* Test Item Value Reference Range Interpretation Comme nts UR HCG QUAL (test code = HCGQLU) NEGATIVE NEGATIVE CBC W/AUTO [id number] 15:52:00* Test Item Value Reference Range Interpretation [...] = RBCM) NO NORMAL URINALYSIS W REFLEX [id number] 13:00:00* Test Item Value Reference Range Interpretation [...] Y= DO UA MICRO UA ICTOTEST FOR [id number] 13:00:00* Test Item Value Reference Range Interpretation Comme nts UA ICTOTEST FOR BILIRUBIN (t est code = ICTOU) POSITIVE NEGATIVE A UA [id number] 13:00:00* Test Item Value Reference Range Interpretation Comme nts UA WBC (test code = WBCU) 0-2 #/hpf 0-5 UA RBC (test code = RBCU) 3-5 #/hpf 0-5 UA EPITHELIAL CELLS (test co de = EPIU) FEW /hpf NEG,FEW UA BACTERIA (test code = BACU) FEW /hpf NEGATIVE A UA MUCUS (test code = MUCU) 1+ /hpf NEG,FEW A UR HCG [id number] 13:00:00* Test Item Value Reference Range Interpretation Comme nts UR HCG QUAL (test code = HCGQLU) NEGATIVE NEGATIVE DRUGS OF ABUSE [id number] 12:57:00* Test Item Value Reference Range Interpretation [...] 300 NG/MLPHENCYCLIDINE 25 NG/ML URINALYSIS W REFLEX [id number] 12:56:00* Test Item Value Reference Range Interpretation [...] Y= DO UA MICRO UA ICTOTEST FOR [id number] 12:56:00* Test Item Value Reference Range Interpretation Comme nts UA ICTOTEST FOR BILIRUBIN (t est code = ICTOU) POSITIVE NEGATIVE A UR HCG [id number] 12:56:00* Test Item Value Reference Range Interpretation Comme nts UR HCG QUAL (test code = HCGQLU) NEGATIVE NEGATIVE URINALYSIS W REFLEX [id number] 12:53:00* Test Item Value Reference Range Interpretation [...] UAMICRO) Y= DO UA MICRO UR HCG [id number] 12:53:00* Test Item Value Reference Range Interpretation Comme nts UR HCG QUAL (test code = HCGQLU) NEGATIVE NEGATIVE URINALYSIS W REFLEX [id number] 12:53:00* Test Item Value Reference Range Interpretation [...] UAMICRO) Y= DO UA MICRO UR HCG [id number] 12:53:00* Test Item Value Reference Range Interpretation Comme nts UR HCG QUAL (test code = HCGQLU) NEGATIVE NEGATIVE - XR ABDOMEN [id number] 12:16:00 [facility] 1990 Sex: F FAX: Sawyer Centeno II [place]: St: PRE Name: BREANNA QUEEN [facility] : 1990 Age/S: 30/F [address] Unit #: [id number] Loc: [place] [address] Phys: Sawyer Centeno II, MD Acct: [id number] Dis Date: Status: PRE ER PHONE #: Exam Date: 05/19/2020 1212 FAX #: Reason: abdominal pain EXAMS: CPT CODE: [id number] XR ABDOMEN 2V 75225 - XR ABDOMEN 2V PROVIDED REASON FOR [...] M.D. CC: Technologist: RT Bekah (Gretta) CT Trnarrd Date/Time/By: 05/19/2020 (1216) : By: [email or web address] Orig Print D/T: S: 05/19/2020 (6678) PAGE 1 Signed ReportBASIC METABOLIC PANEL 2020-05-19 [...] > or = 60 ml/min/1.73M2IF PATIENT IS -GUAMANIAN, MULTIPLY REPORTED RESULT BY1.21. [Automated message] The system which generated this result transmitted reference range: >=60. The reference range was not used to interpret this result as normal/abnormal. CREATININE (test code = CREAT) 0.64 mg/dl 0.55-1.02 N CALCIUM (test code = CA) 9.8 mg/dL 8.5-10.1 N LIVER [id number] 12:08:00* Test Item Value Reference Range Interpretation [...] code = ALKP) 119 U/L 45-117 H [id number] 12:08:00* Test Item Value Reference Range Interpretation Comme nts LIPASE (test code = LIP) 67 U/L 73-393 L CBC W/AUTO [id number] 11:43:00* Test Item Value Reference Range Interpretation [...] = RBCM) NO NORMAL URINALYSIS W REFLEX [id number] 22:06:00* Test Item Value Reference Range Interpretation [...] MUCU) 2+ /hpf NEG,FEW A BASIC METABOLIC [id number] 21:54:00* Test Item Value Reference Range Interpretation [...] > or = 60 ml/min/1.73M2IF PATIENT IS -GUAMANIAN, MULTIPLY REPORTED RESULT BY1.. CREATININE (test code = CREAT) 0.70 mg/dL 0.51-0.95 N CALCIUM (test code = CA) 9.3 mg/dL 8.5-10.1 N LIVER [id number] 21:54:00* Test Item Value Reference Range Interpretation [...] code = ALKP) 69 U/L 50-136 N [id number] 21:54:00* Test Item Value Reference Range Interpretation Comme nts LIPASE (test code = LIP) 63 U/L 73-393 L BASIC METABOLIC [id number] 21:53:00* Test Item Value Reference Range Interpretation [...] > or = 60 ml/min/1.73M2IF PATIENT IS -GUAMANIAN, MULTIPLY REPORTED RESULT BY03.01. CREATININE (test code = CREAT) 0.70 mg/dL 0.51-0.95 N CALCIUM (test code = CA) 9.3 mg/dL 8.5-10.1 N LIVER [id number] 21:53:00* Test Item Value Reference Range Interpretation [...] ( test code = ALKP) U/L 50-136 [id number] 21:53:00* Test Item Value Reference Range Interpretation Comme nts LIPASE (test code = LIP) 63 U/L 73-393 L BASIC METABOLIC [id number] 21:52:00* Test Item Value Reference Range Interpretation [...] > or = 60 ml/min/1.73M2IF PATIENT IS -GUAMANIAN, MULTIPLY REPORTED RESULT BY1.21. CREATININE (test code = CREAT) 0.70 mg/dL 0.51-0.95 N CALCIUM (test code = CA) 9.3 mg/dL 8.5-10.1 N LIVER [id number] 21:52:00* Test Item Value Reference Range Interpretation [...] ( test code = ALKP) U/L 50-136 [id number] 21:52:00* Test Item Value Reference Range Interpretation Comme nts LIPASE (test code = LIP) 63 U/L 73-393 L BASIC METABOLIC [id number] 21:51:00* Test Item Value Reference Range Interpretation [...] > or = 60 ml/min/1.73M2IF PATIENT IS -GUAMANIAN, MULTIPLY REPORTED RESULT BY1.21. CREATININE (test code = CREAT) 0.70 mg/dL 0.51-0.95 N CALCIUM (test code = CA) 9.3 mg/dL 8.5-10.1 N LIVER [id number] 21:51:00* Test Item Value Reference Range Interpretation [...] ( test code = ALKP) U/L 50-136 [id number] 21:51:00* Test Item Value Reference Range Interpretation Comme nts LIPASE (test code = LIP) 63 U/L 73-393 L BASIC METABOLIC [id number] 21:49:00* Test Item Value Reference Range Interpretation [...] = CA) 9.3 mg/dL 8.5-10.1 N LIVER [id number] 21:49:00* Test Item Value Reference Range Interpretation [...] ( test code = ALKP) U/L 50-136 [id number] 21:49:00* Test Item Value Reference Range Interpretation Comme nts LIPASE (test code = LIP) 63 U/L 73-393 L BASIC METABOLIC [id number] 21:48:00* Test Item Value Reference Range Interpretation [...] = CA) 9.3 mg/dL 8.5-10.1 N LIVER [id number] 21:48:00* Test Item Value Reference Range Interpretation [...] ( test code = ALKP) U/L 50-136 [id number] 21:48:00* Test Item Value Reference Range Interpretation Comme nts LIPASE (test code = LIP) U/L 73-393 BASIC METABOLIC [id number] 21:46:00* Test Item Value Reference Range Interpretation [...] (test code = CA) mg/dL 8.5-10.1 LIVER [id number] 21:46:00* Test Item Value Reference Range Interpretation [...] ( test code = ALKP) U/L 50-136 [id number] 21:46:00* Test Item Value Reference Range Interpretation Comme nts LIPASE (test code = LIP) U/L 73-393 CBC W/AUTO [id number] 21:43:00* Test Item Value Reference Range Interpretation [...] Notes Date/Time Note Provider Source 2023-04-14 02:04:00 [id number] t/5ZQoZZtzGbdotumAaJnNdT9lOWrnh8709-92-66H23: 04:00 [facility] ([facility])EMERGENCY PROVIDER REPORTREPORT#:[id number] REPORT STATUS: SignedDATE:04/14/23 TIME: 0204 PATIENT: BREANNA JIMENEZ UNIT #: [id number]#: [id number] ROOM/BED:AGE: 32 SEX: F PCP PHYS: No Primary or Family PhysicianSERVICE AUTHOR: Jose Maki MD * ALL edits or amendments must be made on the electronic/computer document * HPI-Abd Pain F Under 40 Free Text HPI NotesFree Text HPI Qtvnc42-epsb-mnj presents with abdominal pain that started around [...] (5.0 - 8.0) 7.0 POC Ur Specif [place] (1.001 - 1.035) 1.025 POC Urine Protein [...] or a call to 911. at 0504RPT #:[id number] OF REPORTEDEmergen department uusdfz5702-55-72A53:04:00H.PXTD07974862-7755S VAvailable for patient growEDQDFQHBDMGZVH1575-05-83O07:04:38 [facility] 2023-02-24 11:47:47 JFBafpDUA9vPlRsLX3pQe0KWanOn0c5zJ7YnRW/f jHA9B BWVmt+x4K7exOw5IFMw2930-27-28R49:47:47Formatt ing of this note is different from the original.Chief ComplaintPatient presents withFollow-Up Visit1 month follow up visitLauren Solaresectronically signed by Miriam French LVN at 02/24/2023 11:48 AM JCC49557-6Dfsqs HzqbFP2479-57-86E51:48:14Nurse NoteTXT1.2.840.785988.1.13.131.2.7.2.343425|3 [id number] for patient ercc12235-4Oosda NoteLNNARRATIVEFormatted C-CDA narrative [facility] [place], [place] [id number]- 16T11:48:141.2.840.022971.1.72.3.15|1.2.840.1 07081.1.13.131.2.7.2.727879_[id number] [facility] 2022-06-11 11:33:00 [id number]/q8oPWwrzjihOsPm3qU6I5qhkg c+eVJ W51vihByuN2+SNlNNlUgGWCAEBTQKCh6084-68-31U10: 33:00 [facility] ([facility])EMERGENCY PROVIDER REPORTREPORT#:[id number] REPORT STATUS: SignedDATE:06/11/22 TIME: 1133 PATIENT: BREANNA JIMENEZ UNIT #: [id number]#: [id number] ROOM/BED:AGE: 32 SEX: F PCP PHYS: Undefined [...] % (Auto) (16 - 50 %) 22.9 [place] % (Auto) (0.0 - 13.0 %) 9.8 [...] pH (4.6 - 8.0) 7.0 Ur Specific [place] (1.001 - 1.035) 1.020 Urine Protein (NEGATIVE [...] yesterday. After discussion patient states [facility] was prescribed compazine/reglan after blood [...] or a call to 911. at 1245RPT #:[id number] OF REPORTEDEmergency department vgrqiy3386-32-24L04:33:00H.BPHF75124785-7585W VAvailable for patient frhgHHJXJYOQGAOWFC1249-98-50N03:45:50 [facility] 2021[facility] 23:43:00 [id number]Qcd+JM qb4HT YzoNERk3G3Es1P5jRv1ySolOgWMwuS33057-51-87X54: 43:00 [facility] ([facility])EMERGENCY PROVIDER REPORTREPORT#:[id number] REPORT STATUS: SignedDATE:02/09/21 TIME: 2343 PATIENT: BREANNA JIMENEZ UNIT #: [id number]#: [id number] ROOM/BED:AGE: 30 SEX: F PCP PHYS: No Primary or Family PhysicianSERVICE AUTHOR: Kaelyn Peguero MD * ALL edits or amendments must be made on the electronic/computer document * YRT-Beo-Pzxb Illness GeneralConfirmed Patient YesPatient Type New patientInitial Greet Date/Time 02/09/21 2312 PresentationChief Complaint Body aches, Chills, Cough Free Text HPI NotesFree Text HPI Dsyym77-lnyd-zua female comes emergency room complaining of cough, body aches, chills, that began 2 days ago. Patient has been traveling in [facility] and apparently although she has been [...] (2008). Additional Surgical Historybilateral ureter reattachment 1997 [facility] 2018 Botox injection to pylorusAlcohol [...] new symptoms or worsening symptoms. at 0652RPT #:[id number] OF REPORTEDEmergency department lnyzdl9158-72-68Q37:43:00H.[id number] VAvailable for patient zwygJAAIPGMTSXPGMD2440-26-20K86:53:06 [facility] 2020-06-24 15:35:00 ZUbgumwcexa11145948OD0NK+P4Jvwlgnoc0tmij n9MbG cw++6/1yzlaR1fviEix0+NnE7/LGlf9qr5R4c24505-99 -16T15:35:00 [facility] ([facility])EMERGENCY PROVIDER REPORTREPORT#:[id number] REPORT STATUS: SignedDATE:06/24/20 TIME: 1534 PATIENT: BREANNA JIMENEZ UNIT #: [id number]#: [id number] ROOM/BED:AGE: 30 SEX: F PCP PHYS: No Primary or Family PhysicianSERVICE AUTHOR: Maicol Coy MD * ALL edits or amendments must be made on the electronic/computer document * HPI-Abd Pain F Under 40 GeneralInitial Greet Date/Time 06/24/20 1529PCPDr. [place] PresentationChief Complaint Abdominal pain, Nausea, Vomiting [...] Nothing Free Text HPI NotesFree Text HPI Ihcul28p M2 LMP 19 May 2020 c/o acute on chronic gastroparesis related to IBS and/or THC use for past 2d with nonbloody N/V x 6. She is visiting from [place]. Risk-Abd Pain F Under 40)( Ectopic Risk [...] % (Auto) (16 - 50 %) 48.2 [place] % (Auto) (0.0 - 13.0 %) 13.0 [...] pH (4.6 - 8.0) 7.0 Ur Specific [place] (1.001 - 1.035) 1.020 Urine Protein (NEGATIVE [...] the plan for smoking cessation. at 2053RPT #:[id number] OF REPORTEDEmergency department eoqfxb3859-50-16A61:35:00H.FOTU12796443-7159P VAvailable for patient irtjKIHOHPCRDEHGUA3586-11-11W71:53:15 [facility] 2020-05-19 12:11:00 [id number] 3xkQV t2jbBCQbibF3xKpstJFm8dCRxHzYV2G2KSPP5b8772-61 -10T12:11:00 [facility] ([facility])EMERGENCY PROVIDER REPORTREPORT#:[id number] REPORT STATUS: SignedDATE:05/19/20 TIME: 1211 PATIENT: BREANNA QUEEN UNIT #: [id number]#: [id number] ROOM/BED:AGE: 30 SEX: F PCP PHYS: Brayan WinnERVICE AUTHOR: Sawyer Centeno II, MD * ALL edits or amendments must be made on the electronic/computer document * HPI-Abd Pain F Under 40 Free Text HPI NotesFree Text HPI NotesThe patient tells me she has a history of gastroparesis but is not a diabetic. She tells me that she is from [facility] and that she has GI specialist in [facility] whose name is Dr. Hendrix. She tells [...] pH (4.6 - 8.0) 6.0 Ur Specific [place] (1.001 - 1.035) >= 1.030 Urine Protein [...] (Auto) (16 - 50 %) 9.5 L [place] % (Auto) (0.0 - 13.0 %) 4.3 [...] Entered: 05/19/2020 1219 IMPRESSION:No acute process. Location: B89Uzvaxgnxye By: Emily CABALLERO M.D. Imaging StatementRadiographic studies [...] HTN F/u with PCP/other doc at 1708RPT #:[id number] OF REPORTEDEmergency department rwyytg3373-19-74U35:11:00H.[id number] VAvailable for patient dllgBSWHDTTDDTFTDA8014-45-04N91:08:49 [facility] 2019-07-30 21:12:00 NAyuutkymay911504496al2Jeg+z44of/FcEkEtU j+eWE pJkBCq2rKFFcFTSnCILD2pcJhKe6wMHb377dI64736-21 -20T21:12:00 [facility] ([facility])EMERGENCY PROVIDER REPORTREPORT#:[id number] REPORT STATUS: SignedDATE:07/30/19 TIME: 2111 PATIENT: BREANNA JIMENEZ UNIT #: [id number]#: [id number] ROOM/BED:AGE: 29 SEX: F PCP PHYS: No [...] (Auto) (16.0 - 50.0 %) 15.3 L [place] % (Auto) (0.0 - 13.0 %) 5.2 [...] pH (4.6 - 8.0) 6.0 Ur Specific [place] (1.001 - 1.035) 1.017 Urine Protein (NEGATIVE [...] of Care TestingUrinalysis Interpretation Urinalysis NL Re-Evaluation [facility] )( Re-Evaluation/Progress #1Time of Re-Eval 2228)( Re-Eval Status ImprovedRe-Eval Abdomen SoftEval Following Treatment Pt. feels better, Condition improvedPain Re-Evaluation Pain improvedPlan Post Re-Eval Plan discharge Abd Pain MDM Note F < 40The patient is resting comfortably and feels better, is alert and in no distress. The repeat examination is unremarkable and benign; in particular, there is [facility]. The history, exam, diagnostic [...] or a call to 911. at 0000RPT #:[id number] OF REPORTEDEmergency department aazxtf5868-18-24S77:12:00H.HMIW79443244-1963Q VAvailable for patient jrmtDDLIOCHKILFDTL6219-15-83B24:00:25 [facility] 2019-07-30 21:12:00 LVzushchmsd046214377W19wJXC8FloZSiSKlxSD Mili+2 HIT3vHtwApZ5OB8ihVZHKCKNTrOnom6wEl72tY9170-31 -20T21:12:00 [facility] ([facility])EMERGENCY PROVIDER REPORTREPORT#:[id number] REPORT STATUS: SignedDATE:07/30/19 TIME: 2111 PATIENT: BREANNA JIMENEZ UNIT #: [id number]#: [id number] ROOM/BED:AGE: 29 SEX: F PCP PHYS: No [...] (Auto) (16.0 - 50.0 %) 15.3 L [place] % (Auto) (0.0 - 13.0 %) 5.2 [...] pH (4.6 - 8.0) 6.0 Ur Specific [place] (1.001 - 1.035) 1.017 Urine Protein (NEGATIVE [...] call to 911. at 0000 at 0024RPT #:[id number] OF REPORTEDEmerlittle [facility] department ldwdjl9780-63-43X58:12:00H.[id number] VAvailable for patient threDBINOVKEOMHGCZ8252-74-65H38:24:32 [facility]"
[2023-05-21 22:34] LABS: Absolute Basophils 0.1 K/uL (0-0.5); Absolute Eosinophils 0.1 K/uL (0-0.5); Absolute Lymphocytes (CBC) 1.5 K/uL (0.7-4.9); Absolute Monocytes 0.5 K/uL (0.1-1.3); Absolute Neutrophil 1.9 K/uL (1.8-8.0); Basophils % 1.7 % (0-1.3); Eosinophils % 2.9 % (0-4.4); Hematocrit 37.1 % (36.0-45.0); Hemoglobin 12.2 g/dL (12.0-15.0); Lymphocytes % 36.6 % (15.3-44.8); MCH 25.7 pg (27.0-35.0); MCHC 32.9 g/dL (32.0-36.0); MCV 78.2 fL (80-100); MPV 10.9 fL (7.6-11.3); Monocytes % 12.7 % (3.3-12.3); Neutrophils % 46.1 % (41.7-73.7); Nucleated Red Blood Cells % 0.1 % (0-0); Platelets 223 thou/uL (152-406); RBC Red Blood Cell Count 4.74 M/uL (3.86-4.86); Red Cell Distribution Width 17.7 % (12.1-15.2)
[2023-05-21 22:45] LABS: Specific Gravity 1.022 (1.005-1.030)
[2023-05-21 22:46] LABS: Specific Gravity 1.022 (1.005-1.030); Urine Bacteria <20 /HPF (<20); Urine Bilirubin NEGATIVE (Negative); Urine Blood Trace (Negative); Urine Clarity Extremely Turbid (Clear); Urine Color Yellow (Yellow); Urine Crystals Unidentified Few /HPF (None Seen); Urine Culture Reflex Order NOT NEEDED; Urine Glucose NEGATIVE (Negative); Urine Ketones NEGATIVE (Negative); Urine Microscopic Reflex YN ORDER UMIC; Urine Mucus Slight /HPF (None Seen); Urine Nitrite NEGATIVE (Negative); Urine Protein TRACE (Negative); Urine Urobilinogen Normal (Normal); Urine WBC <5 /HPF (<5)
[2023-05-21 22:52] LABS: Albumin 3.6 g/dL (3.4-5.0); Albumin/Globulin Ratio 1.1 (1.1-1.8); Anion Gap 9.3 mEq/L (5.0-15.0); Bilirubin Total 0.5 mg/dL (0.2-1.0); Globulin 3.4 g/dL (2.3-3.5); Potassium 4.3 mEq/L (3.5-5.1)
[2023-05-21] MEDS ORDERED: ONDANSETRON 4 MG/2 ML VIAL ONE (22:53)
[2023-05-21] MEDS ORDERED: KETOROLAC 30 MG/ML INJ ONE (22:53)
[2023-05-21] MEDS ORDERED: METHYLPREDNISOLONE 125 MG INJ ONE (22:53)
[2023-05-21] MEDS ORDERED: METOCLOPRAMIDE 10 MG/2mL INJ ONE (22:53)
[2023-05-21] MEDS ORDERED: ALBUTEROL 2.5 MG/3 ML NEB SOL ONE (22:53)
[2023-05-21] MEDS ORDERED: MORPHINE 4 MG/ML SYR ONE (22:54)
[2023-05-21] MEDS ORDERED: FAMOTIDINE 20 MG/2 ML VIAL IV ONE (22:54)
[2023-05-21] MEDS ORDERED: NA CHLORIDE 0.9% 2,000 ML ONE (22:54)
[2023-05-22] MEDS ORDERED: MORPHINE 4 MG/ML SYR ONE (00:38)
[2023-05-22] MEDS ORDERED: PROMETHAZINE 25 MG TABLET ONE (00:38)
--- NOTE | 2023-05-22 01:19 | EDPHYS ---
Physician Documentation [facility] Name: Efrem Pastor Age: 33 yrs Sex: Female : 1990 Arrival Date: 05/21/2023 Time: 21:44 Bed 2 Private MD: ED Physician Mario Santo HPI: 05/20 21:50 This 33 yrs old Female presents to ER via Unassigned with complaints of sp4 Vomiting/Diarrhea, Shortness Of Breath, Abdominal Pain. 05/21 05:47 33-year-old female with past medical history of Nerve entrapment Syndrome, Anxiety, sp4 Gastroparesis, Irritable Bowel Syndrome, presents to the apartment with acute onset of nausea vomiting diarrhea and abdominal discomfort.. . Historical: - Allergies: 05/20 21:55 Haldol; tl4 21:55 Scopolamine HBr; tl4 - Home Meds: 21:55 Protonix Oral [Active]; paroxetine oral [Active]; buprenorphine transdermal [Active]; tl4 Compazine Oral [Active]; - PMHx: 21:55 Acute cutaneous nerve entrapment syndrome; ACNE (Unknown); Anxiety; Gastroparesis; tl4 Irritable bowel syndrome; neuropathy; PTSD; - PSHx: 21:55 bilateral ureter attachment; Cholecystectomy; leep procedure; Lumpectomy of breast; tl4 right breast; - Immunization history:: Adult Immunizations unknown. - Infectious Disease History:: Denies. - Social history:: Smoking status: Reported history of juuling and/or vaping. - Family history:: not pertinent. ROS: 05/21 05:47 Constitutional: Negative for fever, chills, and weight loss, positive for nausea, sp4 vomiting, diarrhea, and abdominal discomfort All other systems are negative, Exam: 05:47 Constitutional: This is a well developed, well nourished patient who is awake, alert, sp4 and in no acute distress. Head/Face: Normocephalic, atraumatic. Eyes: Pupils equal round and reactive to light, extra-ocular motions intact. Lids and lashes normal. Conjunctiva and sclera are not injected. Cornea within normal limits. Periorbital areas with no swelling, redness, or edema. ENT: Nares patent. No nasal discharge, no septal abnormalities noted. Tympanic membranes are normal and external auditory canals are clear. Oropharynx with no redness, swelling, or masses, exudates, or evidence of obstruction, uvula midline. Mucous membranes moist. Neck: Trachea midline, no thyromegaly or masses palpated, and no cervical lymphadenopathy. Supple, full range of motion without nuchal rigidity, or vertebral point tenderness. Chest/axilla: Normal chest wall appearance and motion. Nontender with no deformity. No lesions are appreciated. Cardiovascular: Regular rate and rhythm with a normal S1 and S2. No gallops, murmurs, or rubs. Normal PMI, no JVD. No pulse deficits. Respiratory: Lungs have equal breath sounds bilaterally, clear to auscultation and percussion. No rales, rhonchi or wheezes noted. No increased work of breathing, no retractions or nasal flaring. Abdomen/GI: Soft, with normal bowel sounds. No distension or tympany. No guarding or rebound. No evidence of tenderness throughout. Back: No spinal tenderness. No costovertebral tenderness. Skin: Warm, dry with normal turgor. Normal color with no rashes, no lesions, and no evidence of cellulitis. MS/ Extremity: Pulses equal, no cyanosis. Neurovascular intact. Full, normal range of motion. Neuro: Awake and alert, GCS 15, oriented to person, place, time, and situation. Cranial nerves II-XII grossly intact. Motor strength 5/5 in all extremities. Sensory grossly intact. Psych: Awake, alert, with orientation to person, place and time. Behavior, mood, and affect are within normal limits Vital Signs: 05/20 21:54 BP 117 / 89; Pulse 106; Resp 16; Temp 97(TE); Pulse Ox 100% on R/A; Weight 65.77 kg; tl4 Height 5 ft. 2 in. ; Pain 9/10; 22:30 BP 118 / 79; Pulse 72; Resp 17 S; Pulse Ox 98% on R/A; ha1 22:55 BP 118 / 78; Pulse 75; Pulse Ox 97% on R/A; tm6 05/21 00:12 BP 116 / 72; Pulse 79; Pulse Ox 100% on R/A; tm6 01:11 BP 106 / 78; Pulse 77; Pulse Ox 96% on R/A; tm6 05/20 21:54 Body Mass Index 26.52 (65.77 kg, 157.48 cm) tl4 05/20 21:54 Pain Scale: Adult tl4 Feliz Coma Score: 05:47 Eye Response: spontaneous(4). Motor Response: obeys commands(6). Verbal Response: sp4 oriented(5). Total: 15. MDM: 05/20 21:54 Patient medically screened. [facility] 05/21 05:47 Differential diagnosis: Nonspecific abd pain, gastritis, pancreatitis, viral sp4 gastroenteritis, gastroenteritis. Data reviewed: vital signs, nurses notes, lab test result(s), CBC, electrolytes, hepatic panel. Consideration of Admission/Observation Escalation of care including admission/observation considered. ED course: Patient has improved significantly after management in ER and IV hydration. Stable for discharge home with medication as listed below. 05/20 21:55 Order name: CBC with Diff; Complete Time: 00:36 [facility] 05/20 21:55 Order name: CMP; Complete Time: 00:36 [facility] 05/20 21:55 Order name: Lipase; Complete Time: 00:36 [facility] 05/20 21:55 Order name: Test, Urine; Complete Time: 00:36 [facility] 05/20 21:55 Order name: Urinalysis w/ reflexes; Complete Time: 00:36 [facility] 05/20 22:07 Order name: Influenza Screen (a \T\ B); Complete Time: 00:36 [facility] 05/20 21:55 Order name: IV Saline Lock; Complete Time: 22:47 [facility] 05/20 21:55 Order name: Labs collected and sent; Complete Time: 22:47 [facility] Administered Medications: 05/20 23:00 Drug: Famotidine IVP 20 mg IVP once; dilute with 10 mL 0.9% NaCl; give over 2 minutes ha1 Route: IVP; Site: right antecubital; 23:45 Follow up: Response: No adverse reaction; Marked relief of symptoms ha1 23:02 Drug: MethylPrednisoLONE IVP 125 mg IVP once Route: IVP; Site: right antecubital; ha1 23:45 Follow up: Response: No adverse reaction; Marked relief of symptoms ha1 23:05 Drug: metoCLOPramide IVP 10 mg IVP once; over 1 to 2 minutes Route: IVP; Site: right ha1 antecubital; 23:45 Follow up: Response: No adverse reaction; Marked relief of symptoms ha1 23:07 Drug: Ketorolac IVP 30 mg IVP once Route: IVP; Site: right antecubital; ha1 23:45 Follow up: Response: No adverse reaction; Marked relief of symptoms; Pain is decreased ha1 23:10 Drug: Ondansetron IVP 4 mg IVP once; over 2 minutes Route: IVP; Site: right antecubital;[facility] 05/21 00:00 Follow up: Response: No adverse reaction; Marked relief of symptoms [facility] 05/20 23:14 Drug: NS 0.9% IV 1000 ml IV at 250 ml/hr continuous Route: IV; Rate: 250 ml/hr; Site: ha right antecubital; 05/21 01:37 Follow up: Response: No adverse reaction; IV Status: Completed infusion; IV Intake: ha1 650ml 05/20 23:14 Drug: Albuterol Inhalation 2.5 mg Inhalation once Route: Inhalation; ha1 23:45 Follow up: Response: No adverse reaction; Marked relief of symptoms ha1 23:15 Drug: morphine IVP or IV 8 mg IVP once over 4 mins Route: IVP; Infused Over: 4 mins; ha1 Site: right antecubital; 23:45 Follow up: Response: No adverse reaction; Pain is decreased; RASS: Alert and Calm (0) 1 23:16 Drug: NS 0.9% IV 1000 ml IV at 1 bolus Per protocol; 1000 mL bolus Route: IV; Rate: 1 ha1 bolus; Site: right antecubital; 05/21 01:35 Follow up: Response: No adverse reaction; IV Status: Completed infusion; IV Intake: ha1 1000ml 00:46 Drug: Promethazine PO 50 mg PO once Route: PO; ha1 01:38 Follow up: Response: No adverse reaction ha1 Disposition Summary: 05/22/23 01:18 Discharge Ordered Notes: Location: Home sp4 Problem: new sp4 Symptoms: have improved sp4 Condition: Stable sp4 Diagnosis - Acute viral gastroenteritis sp4 Followup: sp4 - With: Private Physician - When: 7 - 10 days - Reason: Recheck today's complaints Discharge Instructions: - Discharge Summary Sheet sp4 - Viral Gastroenteritis, Adult, Qprp-sq-Pdvu sp4 Forms: - Patient Portal Instructions sp4 Prescriptions: - Levsin 0.125 mg Oral Tablet - take 1 tablet ORAL route every 8 hours; 30 tablet; Refills: 0, Product sp4 Selection Permitted - Lomotil 2.5-0.025 mg Oral tablet - take 2 tablets ORAL route once daily As needed; 30 tablet; Refills: 0, Product sp4 Selection Permitted - promethazine 25 mg Oral tablet - take 1 tablet ORAL route every 6 hours As needed; 30 tablet; Refills: 0, sp4 Product Selection Permitted Signatures: Dispatcher [employer] Linda Watt RN RN ha1 Mario Santo MD MD sp4 Dima Fortune RN RN tl4
--- NOTE | 2023-05-22 01:19 | ER ---
Nurse's Notes [facility] Name: Efrem Pastor Age: 33 yrs Sex: Female : 1990 Arrival Date: 05/21/2023 Time: 21:44 Bed 2 Private MD: Diagnosis: Acute viral gastroenteritis Presentation: 05/20 21:54 Chief complaint: Patient states: Pt c/o SOB, vomiting, diarrhea, abdominal pain and tl4 body aches x 1 week. Coronavirus screen: At this time, the client does not indicate any symptoms associated with coronavirus-19. Ebola Screen: No symptoms or risks identified at this time. Initial Sepsis Screen: Does the patient meet any 2 criteria? No. Patient's initial sepsis screen is negative. Does the patient have a suspected source of infection? No. Patient's initial sepsis screen is negative. Risk Assessment: Do you want to hurt yourself or someone else? Patient reports no desire to harm self or others. Onset of symptoms was May 14, 2023. 21:54 Method Of Arrival: Ambulatory tl4 21:54 Acuity: BELINDA 3 tl4 Triage Assessment: 21:58 General: Appears uncomfortable, Behavior is calm, cooperative. Pain: Complains of pain tl4 in epigastric pain, bilateral hips, bilateral knees, bilateral hands and lower back. EENT: No signs and/or symptoms were reported regarding the EENT system. Neuro: Level of Consciousness is awake, alert, obeys commands, Oriented to person, place, time, situation, Moves all extremities. Gait is steady, Speech is normal. Cardiovascular: Capillary refill < 3 seconds Patient's skin is warm and dry. Respiratory: Airway is patent Respiratory effort is even, unlabored, Respiratory pattern is regular, symmetrical. GI: Reports upper abdominal pain, diarrhea, vomiting. : No signs and/or symptoms were reported regarding the genitourinary system. Derm: No signs and/or symptoms reported regarding the dermatologic system. Musculoskeletal: No signs and/or symptoms reported regarding the musculoskeletal system. Historical: - Allergies: 21:55 Haldol; tl4 21:55 Scopolamine HBr; tl4 - Home Meds: 21:55 Protonix Oral [Active]; paroxetine oral [Active]; buprenorphine transdermal [Active]; tl4 Compazine Oral [Active]; - PMHx: 21:55 Acute cutaneous nerve entrapment syndrome; ACNE (Unknown); Anxiety; Gastroparesis; tl4 Irritable bowel syndrome; neuropathy; PTSD; - PSHx: 21:55 bilateral ureter attachment; Cholecystectomy; leep procedure; Lumpectomy of breast; tl4 right breast; - Immunization history:: Adult Immunizations unknown. - Infectious Disease History:: Denies. - Social history:: Smoking status: Reported history of juuling and/or vaping. - Family history:: not pertinent. Screenin:55 [facility] ED Fall Risk Assessment (Adult) History of falling in the last 3 months, tm6 including since admission No falls in past 3 months (0 pts) Confusion or Disorientation No (0 pts) Intoxicated or Sedated No (0 pts) Impaired Gait No (0 pts) Mobility Assist Device Used No (0 pt) Altered Elimination No (0 pt) Score/Fall Risk Level 0 - 2 = Low Risk Oriented to surroundings, Maintained a safe environment. Abuse screen: Denies threats or abuse. Denies injuries from another. Nutritional screening: No deficits noted. Tuberculosis screening: No symptoms or risk factors identified. Assessment: 22:00 General: Appears uncomfortable, Behavior is calm, cooperative. Pain: Complains of pain ha1 in abdomen Pain does not radiate. Pain currently is 9 out of 10 on a pain scale. Quality of pain is described as burning, throbbing, Pain began suddenly. Neuro: Level of Consciousness is awake, alert, obeys commands, Oriented to person, place, time, situation. Cardiovascular: Patient's skin is warm and dry. Respiratory: Airway is patent Respiratory effort is even, unlabored, Respiratory pattern is regular, symmetrical. Respiratory: Reports shortness of breath cough that is non-productive. GI: Abdomen is round non-distended, Bowel sounds present X 4 quads. Reports lower abdominal pain, upper abdominal pain, nausea, vomiting. : No signs and/or symptoms were reported regarding the genitourinary system. Derm: Skin is pink, warm \T\ dry. Musculoskeletal: Circulation, motion, and sensation intact. 23:00 Reassessment: Patient and/or family updated on plan of care and expected duration. Pain ha1 level reassessed. Patient is alert, oriented x 3, equal unlabored respirations, skin warm/dry/pink. 12 00:12 Reassessment: No changes from previously documented assessment. tm6 01:11 Reassessment: Patient appears in no apparent distress at this time. No changes from tm6 previously documented assessment. 01:33 Reassessment: Patient and/or family updated on plan of care and expected duration. Pain ha1 level reassessed. Patient is alert, oriented x 3, equal unlabored respirations, skin warm/dry/pink. Patient states feeling better. Patient states symptoms have improved. Vital Signs: 05/20 21:54 BP 117 / 89; Pulse 106; Resp 16; Temp 97(TE); Pulse Ox 100% on R/A; Weight 65.77 kg; tl4 Height 5 ft. 2 in. ; Pain 9/10; 22:30 BP 118 / 79; Pulse 72; Resp 17 S; Pulse Ox 98% on R/A; ha1 22:55 BP 118 / 78; Pulse 75; Pulse Ox 97% on R/A; tm6 05/21 00:12 BP 116 / 72; Pulse 79; Pulse Ox 100% on R/A; tm6 01:11 BP 106 / 78; Pulse 77; Pulse Ox 96% on R/A; tm6 05/20 21:54 Body Mass Index 26.52 (65.77 kg, 157.48 cm) tl4 05/20 21:54 Pain Scale: Adult tl4 Feliz Coma Score: 05:47 Eye Response: spontaneous(4). Motor Response: obeys commands(6). Verbal Response: sp4 oriented(5). Total: 15. ED Course: 05/20 21:46 Patient arrived in ED. ra3 21:50 Mario Santo MD is Attending Physician. sp4 21:55 Triage completed. tl4 22:00 Arm band placed on right wrist. tl4 22:19 Rosemarie Gibbs RN is Primary Nurse. tm6 22:26 Influenza Screen (a \T\ B) Sent. rv1 22:26 CBC with Diff Sent. rv1 22:26 CMP Sent. rv1 22:26 Lipase Sent. rv1 22:26 Test, Urine Sent. rv1 22:26 Urinalysis w/ reflexes Sent. rv1 22:26 Missed attempt(s): 20 gauge in left antecubital area. Bleeding controlled, band aid rv1 applied, catheter tip intact. 22:30 Inserted saline lock: 22 gauge in right antecubital area, using aseptic technique. ha1 Blood collected. 22:47 CMP Sent. ha1 22:47 Lipase Sent. ha1 22:55 Patient has correct armband on for positive identification. Placed in gown. Bed in low tm6 position. Call light in reach. Side rails up X2. Provided Education on: plan of care. Client placed on continuous cardiac and pulse oximetry monitoring. NIBP monitoring applied. Pulse ox on. NIBP on. Door closed. Noise minimized. Warm blanket given. 05/21 01:33 No provider procedures requiring assistance completed. IV discontinued, intact, ha1 bleeding controlled, No redness/swelling at site. Pressure dressing applied. Administered Medications: 05/20 23:00 Drug: Famotidine IVP 20 mg IVP once; dilute with 10 mL 0.9% NaCl; give over 2 minutes ha1 Route: IVP; Site: right antecubital; 23:45 Follow up: Response: No adverse reaction; Marked relief of symptoms ha1 23:02 Drug: MethylPrednisoLONE IVP 125 mg IVP once Route: IVP; Site: right antecubital; ha1 23:45 Follow up: Response: No adverse reaction; Marked relief of symptoms ha1 23:05 Drug: metoCLOPramide IVP 10 mg IVP once; over 1 to 2 minutes Route: IVP; Site: right ha1 antecubital; 23:45 Follow up: Response: No adverse reaction; Marked relief of symptoms ha1 23:07 Drug: Ketorolac IVP 30 mg IVP once Route: IVP; Site: right antecubital; ha1 23:45 Follow up: Response: No adverse reaction; Marked relief of symptoms; Pain is decreased ha1 23:10 Drug: Ondansetron IVP 4 mg IVP once; over 2 minutes Route: IVP; Site: right antecubital;[facility] 05/21 00:00 Follow up: Response: No adverse reaction; Marked relief of symptoms [facility] 05/20 23:14 Drug: NS 0.9% IV 1000 ml IV at 250 ml/hr continuous Route: IV; Rate: 250 ml/hr; Site: [facility] right antecubital; 05/21 01:37 Follow up: Response: No adverse reaction; IV Status: Completed infusion; IV Intake: ha1 650ml 05/20 23:14 Drug: Albuterol Inhalation 2.5 mg Inhalation once Route: Inhalation; ha1 23:45 Follow up: Response: No adverse reaction; Marked relief of symptoms ha1 23:15 Drug: morphine IVP or IV 8 mg IVP once over 4 mins Route: IVP; Infused Over: 4 mins; ha1 Site: right antecubital; 23:45 Follow up: Response: No adverse reaction; Pain is decreased; RASS: Alert and Calm (0) ha1 23:16 Drug: NS 0.9% IV 1000 ml IV at 1 bolus Per protocol; 1000 mL bolus Route: IV; Rate: 1 ha1 bolus; Site: right antecubital; 05/21 01:35 Follow up: Response: No adverse reaction; IV Status: Completed infusion; IV Intake: ha1 1000ml 00:46 Drug: Promethazine PO 50 mg PO once Route: PO; ha1 01:38 Follow up: Response: No adverse reaction ha1 Medication: 05/20 22:55 VIS not applicable for this client. tm6 Intake: 05/21 01:35 IV: 1000ml; Total: 1000ml. ha1 01:37 IV: 650ml; Total: 1650ml. ha1 Outcome: 01:18 Discharge ordered by . sp4 01:34 Discharged to home ambulatory, ha1 01:34 Condition: stable 01:34 Discharge instructions given to patient, Instructed on discharge instructions, follow up and referral plans. medication usage, Demonstrated understanding of instructions, follow-up care, medications, Prescriptions given X 3, 01:38 Patient left the ED. 1 Signatures: Linda Block RN RN ha1 Keeley Gaming rv1 Mario Santo MD MD sp4 Rosemarie Gibbs RN RN tm6 Dima Fortune RN RN [email or web address] Nikkie Talley ra3 Corrections: (The following items were deleted from the chart) 05/20 22:27 22:26 Missed attempt(s): 20 gauge in left antecubital area. rv1 rv1 05/21 01:11 01:11 BP 106 / 78; Pulse 77bpm; Pulse Ox 96% RA; Pain 2/10, Adult; tm6 tm6
[2023-05-22 07:56] VITALS: BP 106/78; TEMP 97; O2SAT 96
== END 2023-05-22 01:38 | disposition home or self-care (01) ==
LOC: ER 21:44
DX: A08.4 Viral intestinal infection, unspecified (principal); Z88.5 Allergy status to narcotic agent; Z88.8 Allergy status to other drugs, medicaments and biological substances
CPT/HCPCS: 36415; 80053; 81001; 81025; 83690; 85025; 87804; 96361; 96374; 96375; 99285; J2405; J2765; J2930; J7030; J7613; Q0169

== ENCOUNTER 2023-05-26 22:41 | Emergency (ER) | payer SELFPAY ==
--- OUTSIDE RECORDS SUMMARY | 2023-05-26 22:46 | XMS REPORT | Continuity of Care Document ---
Author Name Unknown Address [address] [facility] [address] [place] [address] [facility] thconnect Address [address] [facility] [address] [place] [address] Care Team Providers Care Senior Ssis Developer Name Role Phone Kelton Daniels Jr. Primary Care Physician GIOVANY HAGER Attending Clinician Unavailable CAIT RBAGG Attending Clinician Unavailable Jose Maki Attending Clinician Unavailable LAB90 Attending Clinician Unavailable Marylou Johnson NP Attending Clinician [phone] Ted Schultz Attending Clinician Unavailable Kaelyn Peguero Attending Clinician Unavailable Physician, No Primary or Family Admitting Clinic monse Unavailable UNDEFINED Admitting Clinician Unavailable Payers Payer Name Policy Type Policy Number Effective Date Expirati on Date Source [place] [id number] 2022 00:00:00 2023 00:00:00 BCBS 2 [id number] 2023 00:00:00 Problems Condition Name Condition Details [...] See comments 2022-02- 00:00: 00 Dystonic reactions [facility] Scopolam ine Propensi ty to adverse reaction s Active Other - See comments 2022-02 00:00: 00 Visual changes [facility] HALOPERI DOL DRUG INGREDI Active Med Other-Cmnt 2022-02 00:00: 00 [facility] SCOPOLAM INE DRUG INGREDI Active Other-Cmnt 2022-02 00:00: 00 [facility] haloperi dol DA Active SV HIVES - 00:00: 00 [facility] sc[facility]e DA Active SV HIVES 06-11 00:00: 00 [facility] No Known Allergie s DA Active U 02-09 00:00: 00 [facility] No Known Allergie s DA Active U 06-24 00:00: 00 [facility] No Known Allergie s DA Active U 06-24 00:00: 00 [facility] scopolam ine DA Active [place] 0 4-10 00:00: 00 [facility] scopol[place] ine DA Active [place] RASH-ES 4-10 00:00: 00 [facility] No Known Allergie s DA Active U 07-29 00:00: 00 [facility] No Known Allergie s DA Active U 07-29 00:00: 00 [facility] No Known Drug Intolera nces DA Active U 10-24 00:00: 00 [facility] No Known Drug Intolera nces DA Active U NONE 10-24 00:00: 00 [facility] NO KNOWN ALLERGIE S Drug Class Active [facility] Social History Social Habit Start Date [...] 00:00:00 2023-01-27 00:00:00 Laura Enrique - External History of Social function 2023-01-26 00:00:00 2023-01-26 00:00:00 Laura Enrique - External Sex Assigned At 1990 00:00:00 1990 00:00:00 Laura Enrique - External Smoking Status Start Date Stop Date Source Tobacco smoking consumption unknown [facility] Ex-smoker 2023-01-27 00:00:00 2023-01-27 00:00:00 Laura [...] MG oral Tablet 02-24 00:00: 00 Yes [id number] 1{tbl} Q.5D Take 1 tablet by mouth 2 times daily as needed for pain. Laura hall Methocarbam ol 500 MG oral Tablet 02-24 00:00: 00 Yes [id number] 500mg QD Take 1 tablet (500 mg total) by mouth nightly as needed (muscle spasm). Laura hall Methocarbam ol 500 MG oral Tablet 2024-0 1-09 00:00: 00 02-24 00:00 :00 No Laura hall Celecoxib 200 MG oral Capsule 1-09 00:00: 00 02-24 00:00 :00 No TAKE ONE (1) CAPSULE(S) BY MOUTH ONCE A DAY WITH FOOD. Laura hall Promethazin e HCl (PHENERGAN) 25 MG oral Tablet 1- 00:00: 00 Yes [id number] 25mg QD Take 1 tablet (25 mg total) by mouth daily as needed for nausea. Laura hall Valacyclovi r HCl (Valtrex) 500 MG oral Tablet 2022-02 00:00: 00 Yes [id number] 500mg Take 1 tablet (500 mg total) [...] -Acetaminop hen 10-325 MG oral Tablet 2022-02 2- 00:00: 00 02-24 00:00 :00 No 1{tbl} Q.25D Take 1 tablet by mouth every 6 hours as needed for pain (joint murray and post LP). Laura hall dexamethaso ne sod phos PF injection 6 mg 2022-02 02:30: 00 12-27 01:51 :00 No 6mg 6 mg, Intravenou s, ONCE, 1 dose, On Thu12/26/22 at 2030, 1 mL [facility] penicillin g benzathine (BICILLIN L-A) injection 1.2 Million Units 2022-02 01:45: 00 12-27 01:53 :00 No 1.210 1.2 Million Units, Intramuscu lar, ONCE, 1 dose, On Thu12/26/22 at 1945, RONNIE
Re ason for Anti-Infec tive: Empiric Therapy for Suspected Infection< br>Empiric Therapy Site: HEENT
D uration of therapy: Once (ED) [facility] acetaminoph en (TYLENOL) tablet 650 mg 2022-02 01:45: 00 12-27 01:50 :00 No 650mg 650 mg, Oral, ONCE, 1 dose, On Thu12/26/22 at 1945, RONNIE [facility] ketorolac (TORADOL) injection 30 mg 2022-02 00:45: 00 12-27 00:59 :00 No 30mg 30 mg, Intramuscu lar, ONCE, 1 dose, On Thu12/26/22 at 1845, [facility] hydrocortis one 1 mg/4 mL in nystatin suspension- diphenhydrA MINE solution suspension 2022-02 00:00: 00 12-30 05:59 :00 No [id number] 15mL Take 15 mL by mouth every 6 (six) hours as needed for Pain (scale 4-6) for up to 3 days. [facility] Famotidine (PEPCID) 20 MG oral tablet [...] total) by mouth at bedtime. Laura Iva - Externa l Immunizations Ordered Immunization Name Filled Immunization Name Date Status Comments Source Influenza Virus Vaccine, Split, up to age 3 Unknown Completed Laura Enrique - External HPV 4 (Human Papillomavirus) Unknown Completed Laura jacome - External HPV 9 (Human Papillomavirus) Unknown Completed Laura Abreu ld - External Influenza Virus Vaccine, Split, up to age 3 Unknown Completed Laura Enrique - External HPV 4 (Human Papillomavirus) Unknown Completed Laura jacome - External HPV 9 (Human Papillomavirus) Unknown Completed Laura Arbeu ld - External Vital Signs Vital Name Observation Time Observation Value Comments S ource Systolic blood pressure 2023-02-24 17:40:00 110 mm[Hg] Laura Minoro ld - External Diastolic blood pressure 2023-02-24 17:40:00 62 mm[Hg] Laura Minoro ld - External Heart rate 2023-02-24 17:40:00 106 /min Kel y Seybold - External Body temperature 2023-02-24 17:40:00 36.61 Caitlyn Laura Brantleyybyuridia - External Respiratory rate 2023-02-24 17:40:00 16 /min Laura Minorold - External Body height 2023-02-24 17:40:00 157.5 cm Beatris valle Seybold - External Body weight 2023-02-24 17:40:00 70.818 kg Beatris ey Seybold - External BMI 2023-02-24 17:40:00 28.56 kg/m2 Beatris valle Seybold - External Systolic blood pressure 2023-01-27 16:54:00 115 mm[Hg] Laura Minoro ld - External Diastolic blood pressure 2023-01-27 [...] Systolic blood pressure 2022-12-27 02:16:00 111 mm[Hg] [facility] Diastolic blood pressure 2022-12-27 02:16:00 82 mm[Hg] [facility] Heart rate 2022-12-27 02:16:00 93 /min [facility] Body temperature 2022-12-27 02:16:00 37.56 Caitlyn [facility] Respiratory rate 2022-12-27 02:16:00 20 /min [facility] Oxygen saturation in Arterial blood by Pulse oximetry 2022-12-27 02:16:00 96 /min [facility] Body height 2022-12-26 23:57:00 157.5 cm [facility] Body weight 2022-12-26 23:57:00 58.968 kg [facility] BMI 2022-12-26 23:57:00 23.78 kg/m2 [facility] Procedures Procedure Date / Time Performed Performing Clinicia n Source CBC WITH DIFF 2022-12-27 01:49:00 Marylou Johnson [facility] RAPID STREP SCREEN FOR GROUP A 2022-12-27 00:59:00 Marylou Johnson [facility] NOTICE OF PRIVACY PRACTICES 2022-12-26 23:28:27 Doctor Unassigned, [place] CONSENT/REFUSAL FOR DIAGNOSIS AND TREATMENT 2022-12-26 23:27:35 Doctor Unassigned, [facility] Encounters Start Date/Time End Date/Time Encounter Type Admission Type Attending Clinicians Care Facility Care Department Encounter ID Source 2020-06-24 15:53:22 Inpatient [facility] [id number] [facility] 2020-05-19 11:42:02 Inpatient [facility] [id number] 2019-07-30 21:08:00 Inpatient HC[facility] ER [id number] [facility] 2023-05-04 14:30:00 2023-05-04 14:30:00 Outpatient PREZAGIOVANY Garcia LAURA PIZANO [id number] [facility] 2023-05-04 11:15:00 2023-05-04 11:15:00 Outpatient PREZAS, GIOVANY PIZANO [id number] [facility] 2023-05-04 11:00:00 2023-05-04 11:00:00 Outpatient CAIT BRAGG [facility] [id number] [facility] 2023-04-22 00:00:00 2023-04-22 00:00:00 Outpatient PREZAS, GIOVANY PIZANO [id number] [facility] 2023-04-14 02:00:00 2023-04-14 03:25:00 Emergency EM Glynn Jose [facility] ER [id number] [facility] 2023-04-10 00:00:00 2023-04-10 00:00:00 Outpatient PREZAS, GIOVANY PIZANO [id number] [facility] 2023-03-27 09:00:00 2023-03-27 09:00:00 Outpatient PREZAS, GIOVANY PIZANO [id number] [facility] 2023-03-27 00:00:00 2023-03-27 00:00:00 Outpatient PREZAS, GIOVANY PIZANO [id number] [facility] 2023-03-27 00:00:00 2023-03-27 00:00:00 Outpatient PREZAS, GIOVANY PIZANO [id number] [facility] 2023-03-26 00:00:00 2023-03-26 00:00:00 Outpatient PREZAS, GIOVANY PIZANO [id number] [facility] 2023-03-26 00:00:00 2023-03-26 00:00:00 Outpatient PREZAS, GIOVANY PIZANO [id number] Laura [facility] 2023-03-25 14:00:00 2023-03-25 14:00:00 Outpatient PREZAS, GIOVANY DIALLOSEY [id number] [facility] 2023-03-10 00:00:00 2023-03-10 00:00:00 Outpatient PREZAS, GIOVANY PIZANO LAURA [id number] [facility] 2023-03-09 00:00:00 2023-03-09 00:00:00 Outpatient PREZAS, GIOVANY DIALLOSEY [id number] [facility] 2023-03-04 00:00:00 2023-03-04 00:00:00 Outpatient PREZAS, GIOVANY PIZANO LAURA [id number] [facility] 2023-03-03 00:00:00 2023-03-03 00:00:00 Outpatient PREZAS, GIOVANY PIZANO LAURA [id number] [facility] 2023-03-02 00:00:00 2023-03-02 00:00:00 Outpatient PREZAS, GIOVANY PIZANO LAURA [id number] [facility]23-[facility]02 00:00:00 2023-03-02 00:00:00 Outpatient PREZAS, GIOVANY PIZANO LAURA [id number] [facility] 2023-03-02 00:00:00 2023-03-02 00:00:00 Outpatient PREZAS, GIOVANY DIALLOHUMPHREY PIZANO [id number] [facility] 2023-03-02 00:00:00 2023-03-02 00:00:00 Outpatient PREZAS, GIOVANY PIZANO LAURA [id number] [facility] 2023-02-27 00:00:00 2023-02-27 00:00:00 Outpatient PREZAS, GIOVANY DIALLOHUMPHREY PIZANO [id number] Laura Seybold 2023-02-25 00:00:00 2023-02-25 00:00:00 Outpatient PREZAS, GIOVANY LAURA PIZANO [id number] Laura Seybold 2023-02-24 11:30:00 2023-02-24 11:30:00 Outpatient PREZAS, GIOVANY LAURA PIZANO [id number] [facility] 2023-02-18 00:00:00 2023-02-18 00:00:00 Outpatient PREZAS, GIOVANY PIZANO [id number] Laura [facility] 2023-02-12 00:00:00 2023-02-12 00:00:00 Outpatient PREZAS, GIOVANY PIZANO [id number] Laura [facility] 2023-02-12 00:00:00 2023-02-12 00:00:00 Outpatient PREZAS, GIOVANY PIZANO [id number] [facility] 2023-02-11 00:00:00 2023-02-11 00:00:00 Outpatient PREZAS, GIOVANY PIZANO [id number] [facility] 2023-01-28 00:00:00 2023-01-28 00:00:00 Outpatient PREZAS, GIOVANY PIZANO [id number] Laura [facility] 2023-01-28 00:00:00 2023-01-28 00:00:00 Outpatient PREZAS, GIOVANY PIZANO [id number] Laura [facility] 2023-01-27 13:00:00 2023-01-27 13:00:00 Outpatient LAB90 LAURA PIZANO [id number] Laura [facility] 2023-01-27 10:45:00 2023-01-27 10:45:00 Outpatient PREZAS, GIOVANY PIZANO [id number] Laura [facility] 2023-01-27 00:00:00 2023-01-27 00:00:00 Outpatient PREZAS, GIOVANY PIZANO [id number] [facility] 2022-12-26 17:57:00 2022-12-26 20:20:00 Emergency Marylou Johnson [facility] [id number] [facility] 2022-12-26 17:57:00 2022-12-26 20:20:00 Emergency X MARYLOU JOHNSON [facility] ERT [id number] [facility] 2022-06-11 11:10:00 2022-06-11 12:41:00 Emergency EM Ted Schultz [facility] ER [id number] [facility] 2021-02-09 23:10:00 2021-02-10 00:19:00 Emergency EM Kaelyn Peguero [facility] ER [id number] [facility] Results Test Description Test Time Test Comments Results Result Co mments Source [facility]-[place] [facility], [address], [place], [address], POC [id number] 05:04:00* Test Item Value Reference Range Interpretation [...] PT value based on a regression analysis. [facility] [facility], [address], [place], [address], URINE DRUG SCREEN [id number] 02:46:00* Test Item Value Reference Range Interpretation [...] results should not beused for non-medical purposes. [facility] [facility], [address], [place], [address], POC,HCG URINE, [id number] 02:38:00* Test Item Value Reference Range Interpretation Comme nts POC,HCG URINE, QUALITATIVE ( test code = EDHCGU) Negative [facility] [address] [facility] [address], [place], [address], URINALYSIS [id number] 02:32:00* Test Item Value Reference Range Interpretation [...] ESTERASE (test code = EDLEUK) Negative Negative [facility], [address], [place], [address], - CT ABD PELVIS W/O [id number] 02:32:00 [facility]: BREANNA JIMENEZ : 1990 Sex: FName[facility] 1990 Age/S: [address] Unit #: [id number] Loc: [place] [address] Phys: Jose Maki MD Acct: [id number] Dis Date: Status: PRE ER PHONE #: Exam Date: 04/14/2023 7777 FAX #: Reason: epigastric abd pain suspect gastroparesis EXAMS: CPT CODE: [id number] CT ABD PELVIS W/O CONT 98422 - CT ABD PELVIS W/O CONT INDICATION / CLINICAL INFORMATION: epigastric abd pain suspect gastroparesis COMPARISON: None available. TECHNIQUE:CT of the abdomen and pelvis without IV contrast. Dose reduction techniques were utilized. FINDINGS: Noncontrast CT limits evaluation of solid and vascular organs. The soft tissues are unremarkable.The osseous structures demonstrate no concerning lytic or blastic lesions. The visualized lungs are clear. The visualized heart is unremarkable. Liver: Unremarkable Gallbladder fossa/CBD: Gallbladder surgically absent Pancreas: Unremarkable Spleen: Unremarkable Adrenal glands: Unremarkable Kidneys: Unremarkable. No evidence of stones or hydronephrosis. Bowel: The stomach, small bowel, and colon are unremarkable. Specifically the stomach is not significantly distended. Pelvic contents: The remaining pelvic contents are unremarkable. IMPRESSION: No acute findings. Specifically the stomach is not significantly distended. at 0232 Reported and signed by: DIANE KILPATRICK MD PAGE 1 Signed Report (CONTINUED) Name: BRE[facility] 1990 Age/S: 32 / F [address] Unit #: [id number] Loc: [place] [address] Phys: Jose Maki MD Acct: [id number] Dis Date: Status: PRE ER PHONE #: Exam Date: 04/14/2023226 FAX #: Reason: epigastric abd pain suspect gastroparesis EXAMS: CPT CODE: [id number] CT ABD PELVIS W/O CONT 72929 (Continued) CC: Jose Maki MD Technologist:Milagro Rosen RT (R) CT CTDI: 8 DLP: 395 Trnscb Date/Time: 04/14/2023 (023) [email or web address] Orig Print D/T: S: 04/14/2023 (023) PAGE 2 Signed ReportCOMPREHENSIVE METABOLIC [id number] 02:31:00* Test Item Value Reference Range Interpretation [...] code = EDALP) 127 U/L 42-141 N [facility], [address], [place], [address], POC,[id number] 02:31:00* Test Item Value Reference Range Interpretation Comme [facility] POC,AMYLASE (test code = EDAMY) 118 U/L 14-97 H [facility], [address], [place], [address], COMPLETE BLOOD COUNT (CBC)2023-04-14 02:21:00* Test Item [...] code = EDMPVP) 13.3 fL 7.9-13.3 N [facility], [address], [place], [address], UA RFLX MICROSCOPIC [id number] 11:54:00* Test Item Value Reference Range Interpretation [...] Suprapubic PainURINE SOURCE: CLEAN CATCH URINEUR HCG [id number] 11:54:00* Test Item Value Reference Range Interpretation Comme nts UR HCG QUAL (test code = HCGQLU) NEGATIVE NEGATIVE Indication for culture: Suprapubic PainURINE SOURCE: CLEAN CATCH URINE COMPREHENSIVE METABOLIC [id number] 11:49:00* Test Item Value Reference Range Interpretation [...] code = ALKP) 105 U/L 45-117 N [id number] 11:49:00* Test Item Value Reference Range Interpretation Comme nts AMYLASE (test code = PARAM) 73 IU/L 25-115 N [id number] 11:49:00* Test Item Value Reference Range Interpretation Comme nts LIPASE (test code = LIP) 134 U/L 73-393 N CBC W/AUTO [id number] 11:33:00* Test Item Value Reference Range Interpretation [...] code = RBCM) NO NORMAL COMPREHENSIVE METABOLIC [id number] 16:11:00* Test Item Value Reference Range Interpretation [...] > or = 60 ml/min/1.73M2IF PATIENT IS -IRISH, MULTIPLY REPORTED RESULT BY1.21. [Automated message] The [...] code = ALKP) 139 U/L 45-117 H [id number] 16:11:00* Test Item Value Reference Range Interpretation Comme nts LIPASE (test code = LIP) 108 U/L 73-393 N URINALYSIS W REFLEX [id number] 16:05:00* Test Item Value Reference Range Interpretation [...] UAMICRO) Y= DO UA MICRO UR HCG [id number] 16:05:00* Test Item Value Reference Range Interpretation Comme nts UR HCG QUAL (test code = HCGQLU) NEGATIVE NEGATIVE URINALYSIS W REFLEX [id number] 16:05:00* Test Item Value Reference Range Interpretation [...] = UAMICRO) Y= DO UA MICRO UA [id number] 16:05:00* Test Item Value Reference Range Interpretation Comme nts UA WBC (test code = WBCU) 0-2 #/hpf 0-5 UA RBC (test code = RBCU) 0-2 #/hpf 0-5 UA EPITHELIAL CELLS (test co de = EPIU) 2+ /hpf NEG,FEW A UA BACTERIA (test code = BACU) FEW /hpf NEGATIVE A UA AMORPHOUS SEDIMENT (test code = AMORU) FEW /hpf NEG,FEW UR HCG [id number] 16:05:00* Test Item Value Reference Range Interpretation Comme nts UR HCG QUAL (test code = HCGQLU) NEGATIVE NEGATIVE URINALYSIS W REFLEX [id number] 16:05:00* Test Item Value Reference Range Interpretation [...] UAMICRO) Y= DO UA MICRO UR HCG [id number] 16:05:00* Test Item Value Reference Range Interpretation Comme nts UR HCG QUAL (test code = HCGQLU) NEGATIVE NEGATIVE DRUGS OF ABUSE [id number] 16:01:00* Test Item Value Reference Range Interpretation [...] 300 NG/MLPHENCYCLIDINE 25 NG/ML URINALYSIS W REFLEX [id number] 15:58:00* Test Item Value Reference Range Interpretation [...] NEEDED? (test code = UAMICRO) UR HCG [id number] 15:58:00* Test Item Value Reference Range Interpretation Comme nts UR HCG QUAL (test code = HCGQLU) NEGATIVE NEGATIVE CBC W/AUTO [id number] 15:52:00* Test Item Value Reference Range Interpretation [...] = RBCM) NO NORMAL URINALYSIS W REFLEX [id number] 13:00:00* Test Item Value Reference Range Interpretation [...] Y= DO UA MICRO UA ICTOTEST FOR [id number] 13:00:00* Test Item Value Reference Range Interpretation Comme nts UA ICTOTEST FOR BILIRUBIN (t est code = ICTOU) POSITIVE NEGATIVE A UA [id number] 13:00:00* Test Item Value Reference Range Interpretation Comme nts UA WBC (test code = WBCU) 0-2 #/hpf 0-5 UA RBC (test code = RBCU) 3-5 #/hpf 0-5 UA EPITHELIAL CELLS (test co de = EPIU) FEW /hpf NEG,FEW UA BACTERIA (test code = BACU) FEW /hpf NEGATIVE A UA MUCUS (test code = MUCU) 1+ /hpf NEG,FEW A UR HCG [id number] 13:00:00* Test Item Value Reference Range Interpretation Comme nts UR HCG QUAL (test code = HCGQLU) NEGATIVE NEGATIVE DRUGS OF ABUSE [id number] 12:57:00* Test Item Value Reference Range Interpretation [...] 300 NG/MLPHENCYCLIDINE 25 NG/ML URINALYSIS W REFLEX [id number] 12:56:00* Test Item Value Reference Range Interpretation [...] Y= DO UA MICRO UA ICTOTEST FOR [id number] 12:56:00* Test Item Value Reference Range Interpretation Comme nts UA ICTOTEST FOR BILIRUBIN (t est code = ICTOU) POSITIVE NEGATIVE A UR HCG [id number] 12:56:00* Test Item Value Reference Range Interpretation Comme nts UR HCG QUAL (test code = HCGQLU) NEGATIVE NEGATIVE URINALYSIS W REFLEX [id number] 12:53:00* Test Item Value Reference Range Interpretation [...] UAMICRO) Y= DO UA MICRO UR HCG [id number] 12:53:00* Test Item Value Reference Range Interpretation Comme nts UR HCG QUAL (test code = HCGQLU) NEGATIVE NEGATIVE URINALYSIS W REFLEX [id number] 12:53:00* Test Item Value Reference Range Interpretation [...] UAMICRO) Y= DO UA MICRO UR HCG [id number] 12:53:00* Test Item Value Reference Range Interpretation Comme nts UR HCG QUAL (test code = HCGQLU) NEGATIVE NEGATIVE - XR ABDOMEN [id number] 12:16:00 [facility] DOB: 1990 Sex: F FAX: Sawyer Centeno II [place]: St: PRE Name: BREANNA QUEEN FSED : 1990 Age/S: 30/F [address] Unit #: [id number] Loc: [place] [address] Phys: Sawyer Centeno II, MD Acct: [id number] Dis Date: Status: PRE ER PHONE #: Exam Date: 05/19/2020 1212 FAX #: Reason: abdominal pain EXAMS: CPT CODE: [id number] XR ABDOMEN 2V 83910 - XR ABDOMEN 2V PROVIDED REASON FOR [...] M.D. CC: Technologist: RT Bekah (Gretta) CT Trnscrd Date/Time/By: 05/19/2020 (1216) : By: [email or web address] Orig Print D/T: S: 05/19/2020 (3391) PAGE 1 Signed ReportBASIC METABOLIC PANEL 2020-05-19 [...] > or = 60 ml/min/1.73M2IF PATIENT IS -IRISH, MULTIPLY REPORTED RESULT BY1.21. [Automated message] The system which generated this result transmitted reference range: >=60. The reference range was not used to interpret this result as normal/abnormal. CREATININE (test code = CREAT) 0.64 mg/dl 0.55-1.02 N CALCIUM (test code = CA) 9.8 mg/dL 8.5-10.1 N LIVER [id number] 12:08:00* Test Item Value Reference Range Interpretation [...] code = ALKP) 119 U/L 45-117 H [id number] 12:08:00* Test Item Value Reference Range Interpretation Comme nts LIPASE (test code = LIP) 67 U/L 73-393 L CBC W/AUTO [id number] 11:43:00* Test Item Value Reference Range Interpretation [...] = RBCM) NO NORMAL URINALYSIS W REFLEX [id number] 22:06:00* Test Item Value Reference Range Interpretation [...] MUCU) 2+ /hpf NEG,FEW A BASIC METABOLIC [id number] 21:54:00* Test Item Value Reference Range Interpretation [...] > or = 60 ml/min/1.73M2IF PATIENT IS -IRISH, MULTIPLY REPORTED RESULT BY1.21. CREATININE (test code = CREAT) 0.70 mg/dL 0.51-0.95 N CALCIUM (test code = CA) 9.3 mg/dL 8.5-10.1 N LIVER [id number] 21:54:00* Test Item Value Reference Range Interpretation [...] code = ALKP) 69 U/L 50-136 N [id number] 21:54:00* Test Item Value Reference Range Interpretation Comme nts LIPASE (test code = LIP) 63 U/L 73-393 L BASIC METABOLIC [id number] 21:53:00* Test Item Value Reference Range Interpretation [...] > or = 60 ml/min/1.73M2IF PATIENT IS -IRISH, MULTIPLY REPORTED RESULT BY03.01. CREATININE (test code = CREAT) 0.70 mg/dL 0.51-0.95 N CALCIUM (test code = CA) 9.3 mg/dL 8.5-10.1 N LIVER [id number] 21:53:00* Test Item Value Reference Range Interpretation [...] ( test code = ALKP) U/L 50-136 [id number] 21:53:00* Test Item Value Reference Range Interpretation Comme nts LIPASE (test code = LIP) 63 U/L 73-393 L BASIC METABOLIC [id number] 21:52:00* Test Item Value Reference Range Interpretation [...] > or = 60 ml/min/1.73M2IF PATIENT IS -IRISH, MULTIPLY REPORTED RESULT BY1.21. CREATININE (test code = CREAT) 0.70 mg/dL 0.51-0.95 N CALCIUM (test code = CA) 9.3 mg/dL 8.5-10.1 N LIVER [id number] 21:52:00* Test Item Value Reference Range Interpretation [...] ( test code = ALKP) U/L 50-136 [id number] 21:52:00* Test Item Value Reference Range Interpretation Comme nts LIPASE (test code = LIP) 63 U/L 73-393 L BASIC METABOLIC [id number] 21:51:00* Test Item Value Reference Range Interpretation [...] > or = 60 ml/min/1.73M2IF PATIENT IS -IRISH, MULTIPLY REPORTED RESULT BY1.21. CREATININE (test code = CREAT) 0.70 mg/dL 0.51-0.95 N CALCIUM (test code = CA) 9.3 mg/dL 8.5-10.1 N LIVER [id number] 21:51:00* Test Item Value Reference Range Interpretation [...] ( test code = ALKP) U/L 50-136 [id number] 21:51:00* Test Item Value Reference Range Interpretation Comme nts LIPASE (test code = LIP) 63 U/L 73-393 L BASIC METABOLIC [id number] 21:49:00* Test Item Value Reference Range Interpretation [...] = CA) 9.3 mg/dL 8.5-10.1 N LIVER [id number] 21:49:00* Test Item Value Reference Range Interpretation [...] ( test code = ALKP) U/L 50-136 [id number] 21:49:00* Test Item Value Reference Range Interpretation Comme nts LIPASE (test code = LIP) 63 U/L 73-393 L BASIC METABOLIC [id number] 21:48:00* Test Item Value Reference Range Interpretation [...] = CA) 9.3 mg/dL 8.5-10.1 N LIVER [id number] 21:48:00* Test Item Value Reference Range Interpretation [...] ( test code = ALKP) U/L 50-136 [id number] 21:48:00* Test Item Value Reference Range Interpretation Comme nts LIPASE (test code = LIP) U/L 73-393 BASIC METABOLIC [id number] 21:46:00* Test Item Value Reference Range Interpretation [...] (test code = CA) mg/dL 8.5-10.1 LIVER [id number] 21:46:00* Test Item Value Reference Range Interpretation [...] ( test code = ALKP) U/L 50-136 [id number] 21:46:00* Test Item Value Reference Range Interpretation Comme nts LIPASE (test code = LIP) U/L 73-393 CBC W/AUTO [id number] 21:43:00* Test Item Value Reference Range Interpretation [...] Notes Date/Time Note Provider Source 2023-04-14 02:04:00 [id number] EK1oI t/7WKpSApzIporyuiPjZkFyF8bAFdli5181-25-43I35: 04:00 [facility])EMERGENCY PROVIDER REPORTREPORT#:[id number] REPORT STATUS: SignedDATE:04/14/23 TIME: 0204 PATIENT: BREANNA JIMENEZ UNIT #: [id number]#: [id number] ROOM/BED:AGE: 32 SEX: F PCP PHYS: No Primary or Family PhysicianSERVICE AUTHOR: Jose Maki MD * ALL edits or amendments must be made on the electronic/computer document * HPI-Abd Pain F Under 40 Free Text HPI NotesFree Text HPI Byijh83-huvm-roq presents with abdominal pain that started around [...] (5.0 - 8.0) 7.0 POC Ur Specif [place] (1.001 - 1.035) 1.025 POC Urine Protein [...] is not significantly distended.Impression By: FarhadNH16 - DAINE KILPATRICK MD Re-Evaluation MDM Free Text MDM [...] X1ED STA 04/13 0233 DC / IV / 0234 0238 Ketorolac 15 MG X1ED STA 04/13 0208 DC / Tromethamine IV 04/13 0209 0219 Electrolytic, Caloric, And Elvia Sig/Ayanna Start time Last Medication Dose Route Stop Time Status Admin Sodium Chloride 1,000 ML X1ED STA 04/13 0237 AC 03/05 IV 03/ 0336 0238 Sodium Chloride 1,000 ML X1ED STA / 0208 AC 03/05 IV 03/ 0307 0218 Gastrointestinal Drugs Sig/Ayanna Start time Last Medication Dose Route Stop Time Status Admin Famotidine 20 MG X1ED STA 04/13 0208 DC 03/ IV 04/13 0209 0219 Metoclopramide HCl 10 MG X1ED STA 04/13 0208 DCr 03/05 IV / 0209 0219 Differential Diagnosis)( Differential Diagnosis Acute abdominal pain, Appendicitis, Bowel obstruction,Constipation, Diverticular disease, Ectopic preg ruptured, Ectopic , Endometriosis, Gastritis, Gastroenteritis, GERD Patient Discharge Departure Vital Signs/ConditionVital SignsFirst Documented: Result Date Time Pulse Ox 100 / 0208 B/P 165/107 / 0208 B/P Mean 126 04/13 0208 O2 Delivery Room air 04/14 207 Temp 97.3 04/14 207 Pulse 83 04/13 0208 Resp 19 04/14 207 Last Documented: Result Date Time Pulse Ox 100 / 0208 B/P 165/107 03/05 0208 B/P Mean 126 04/14 207 O2 Delivery [...] or a call to 911. at 0504RPT #:[id number] OF REPORTEDEmercornerstone specialty hospital department duanxz0877-83-88D70:04:00H.ZYSZ13332134-7423Q VAvailable for patient zhvdTFFNWFEZNCPTPV1113-28-06U83:04:38 [facility] 2023-02-24 11:47:47 RXNllaEPU5dZxUpRB9hGp9HMavVw2r9mL6NsDI/f jHA9B BWVmt+h7T7hiZv5GHEv9817-83-88J50:47:47Formatt ing of this note is different from the original.Chief ComplaintPatient presents withFollow-Up Visit1 month follow up visitLauren Solaresectronically signed by Miriam French LVN at 02/24/2023 11:48 AM MZL72813-2Qqjpa IzbvNC3180-10-19C96:48:14Nurse NoteTXT1.2.840.383411.1.13.131.2.7.2.410198|3 [id number] for patient knaf53324-3Nomzp NoteLNNARRATIVEFormatted C-CDA narrative [facility] TylerZHRTZDUTLOMGNPPTCB2983338351JQBQ7300-51- 16T11:48:141.2.840.632032.1.72.3.15|1.2.840.1 31968.1.13.131.2.7.2.727879_393020860 [facility] 2022-06-11 11:33:00 DC4183112166LL/w1bIOlprfuuQbOf6uS4R7loyy c+eVJ E49xxfHfgS0+WCiNDuUjKFEJFHQPEQv9581-47-70S67: 33:00 [facility])EMERGENCY PROVIDER REPORTREPORT#:[id number] REPORT STATUS: SignedDATE:06/11/22 TIME: 1133 PATIENT: BREANNA JIMENEZ UNIT #: [id number]#: [id number] ROOM/BED:AGE: 32 SEX: F PCP PHYS: Undefined [...] % (Auto) (16 - 50 %) 22.9 [place] % (Auto) (0.0 - 13.0 %) 9.8 [...] pH (4.6 - 8.0) 7.0 Ur Specific [place] (1.001 - 1.035) 1.020 Urine Protein (NEGATIVE [...] yesterday. After discussion patient states was at [facility] yesterdayand was prescribed compazine/reglan after [...] X1ED STA 05 1118 DC 05/03 IV 05/ 1217 1123 Gastrointestinal Drugs Sig/Ayanna Start time Last Medication Dose Route Stop Time Status Admin Prochlorperazine 5 MG X1ED STA 06/11 1118 DC 05/03 Edisylate IV 06/11 1119 1124 Patient Discharge Departure Vital Signs/ConditionVital SignsFirst Documented: Result Date Time Pulse Ox 99 / 1113 B/P 156/96 05/ 1113 B/P Mean [...] or a call to 911. at 1245RPT #:[id number] OF REPORTEDEmercornerstone specialty hospital department qitpci8234-28-49C57:33:00H.[id number] VAvailable for patient ujcqRWGJEIBAGNBITM2998-41-03W30:45:50 [facility] 2021-02-09 23:43:00 [id number]y+JM qb4HT PgiJVNl2L4Zx4Y3wIv0zTkbHlLEajI89266-41-48B52: 43:00 [facility])EMERGENCY PROVIDER REPORTREPORT#:[id number] REPORT STATUS: SignedDATE:02/09/21 TIME: 2343 PATIENT: BREANNA JIMENEZ UNIT #: [id number]#: [id number] ROOM/BED:AGE: 30 SEX: F PCP PHYS: No Primary or Family PhysicianSERVICE AUTHOR: Kaelyn Peguero MD * ALL edits or amendments must be made on the electronic/computer document * BQR-Jch-Ucsu Illness GeneralConfirmed Patient YesPatient Type New patientInitial Greet Date/Time 02/09/21 2312 PresentationChief Complaint Body aches, Chills, Cough Free Text HPI NotesFree Text HPI Xscix47-qprf-rdm female comes emergency room complaining of cough, body aches, chills, that began 2 days ago. Patient has been traveling in [place] and apparently although she has been driving [...] (2008). Additional Surgical Historybilateral ureter reattachment 1997 [facility] 2018 Botox injection to pylorusAlcohol Use [...] Pulse Ox 100 02/09 2310 B/P 110/74 01/01 2311 B/P Mean 86 02/09 2310 O2 Delivery [...] new symptoms or worsening symptoms. at 0652RPT #:[id number] OF REPORTEDEmergency department xlvmen5464-49-58I68:43:00H.TORJ77108060-9555R VAvailable for patient oiktZIKHMCTGKFSPHN4594-58-17J10:53:06 [facility] 2020-06-24 15:35:00 MTsugnrzffy19373505HP3OJ+R4Nzmqsmyv2feps n9MbG cw++6/9tvviE4ycgDvs9+NnE7/HZmi2jx5V5n61826-06 -16T15:35:00 [facility])EMERGENCY PROVIDER REPORTREPORT#:[id number] REPORT STATUS: SignedDATE:06/24/20 TIME: 1534 PATIENT: BREANNA JIMENEZ UNIT #: [id number]#: [id number] ROOM/BED:AGE: 30 SEX: F PCP PHYS: No Primary or Family PhysicianSERVICE AUTHOR: Maicol Coy MD * ALL edits or amendments must be made on the electronic/computer document * HPI-Abd Pain F Under 40 GeneralInitial Greet Date/Time 06/24/20 1529PCPDr. [place] in [place] PresentationChief Complaint Abdominal pain, Nausea, Vomiting [...] Nothing Free Text HPI NotesFree Text HPI Bfhrb39h M2 LMP 19 May 2020 c/o acute on chronic gastroparesis related to IBS and/or THC use for past 2d with nonbloody N/V x 6. She is visiting from [place]. Risk-Abd Pain F Under 40)( Ectopic Risk [...] biopsy/procedure (2009). Additional Surgical Historybilateral ureter reattachment 1997LEEP 2018Botox [...] % (Auto) (16 - 50 %) 48.2 [place] % (Auto) (0.0 - 13.0 %) 13.0 [...] pH (4.6 - 8.0) 7.0 Ur Specific [place] (1.001 - 1.035) 1.020 Urine Protein (NEGATIVE [...] ML BOLUS ONCE ONE 06/24 1545 DC / IV 06/24 1644 1551 Gastrointestinal Drugs Sig/Ayanna Start time Last Medication Dose Route Stop Time Status Admin Metoclopramide HCl 10 MG X1ED STA 06/24 1535 DC /16 IV 16 1536 1552 Differential DiagnosisRuled Out Sepsis This is not sepsis. Patient Discharge Departure Vital Signs/ConditionVital SignsFirst Documented: Result Date Time Pulse Ox 98 06/24 1531 B/P 133/87 06/24 1531 B/P Mean 102 06/24 1531 O2 Delivery Room air 06/24 153 Temp 37.4 06/24 1531 Pulse 92 06/24 [...] the plan for smoking cessation. at 2053RPT #:[id number] OF REPORTEDEmergency department uvopzu3121-58-43E17:35:00H.[id number] VAvailable for patient lngtZAFGGURTLRVIDR1187-68-72T38:53:15 [facility] 12:11:00 NJvddwmyapy75590558Yjo94TlFKgZoPIyVrZ8h3 3xkQV h3pbRMGsvvU3mOrkvMLy4hCQxDpAT6N4GHHK5r9517-41 -10T12:11:00 [facility])EMERGENCY PROVIDER REPORTREPORT#:[id number] REPORT STATUS: SignedDATE:05/19/20 TIME: 1211 PATIENT: BREANNA QUEEN UNIT #: [id number]#: [id number] ROOM/BED:AGE: 30 SEX: F PCP PHYS: Brayan WinnERVICE AUTHOR: Sawyer Centeno II, MD * ALL edits or amendments must be made on the electronic/computer document * HPI-Abd Pain F Under 40 Free Text HPI NotesFree Text HPI NotesThe patient tells me she has a history of gastroparesis but is not a diabetic. She tells me that she is from [facility] and that she has GI specialist in [facility] whose name is Dr. Hendrix. She [...] pH (4.6 - 8.0) 6.0 Ur Specific [place] (1.001 - 1.035) >= 1.030 Urine Protein [...] (Auto) (16 - 50 %) 9.5 L [place] % (Auto) (0.0 - 13.0 %) 4.3 [...] Entered: 05/19/2020 1219 IMPRESSION:No acute process. Location: L81Ueiowtkbbv By: Emily CABALLERO M.D. Imaging StatementRadiographic studies [...] 50 MG X1ED STA 05/19 1212 DC 04/ IV 05/19 1213 1239 Electrolytic, Caloric, And [...] HTN F/u with PCP/other doc at 1708RPT #:[id number] OF REPORTEDEmergency department ootlea2127-33-29O38:11:00H.MZBP05580100-8787K VAvailable for patient pstgXNCZLBSLIHJOYX2794-38-90P73:08:49 [facility] 2019-07-30 21:12:00 ANcrysmvlhu373927643qg7Urk+z44of/FcEkEtU j+eWE lAaDEc8sCBRzVVNwJJCC0mrNyYj2tGIt983vC50673-17 -20T21:12:00 [facility])EMERGENCY PROVIDER REPORTREPORT#:[id number] REPORT STATUS: SignedDATE:07/30/19 TIME: 2111 PATIENT: BREANNA JIMENEZ UNIT #: [id number]#: [id number] ROOM/BED:AGE: 29 SEX: F PCP PHYS: No [...] (Auto) (16.0 - 50.0 %) 15.3 L [place] % (Auto) (0.0 - 13.0 %) 5.2 [...] pH (4.6 - 8.0) 6.0 Ur Specific [place] (1.001 - 1.035) 1.017 Urine Protein (NEGATIVE [...] in particular, [facility] The history, exam, diagnostic testing, [...] STA 07/29 2258 DCr 07/29 IM 07/29 2258 2305 Ketorolac [...] or a call to 911. at 0000RPT #:[id number] OF REPORTEDEmergency department snrfmc2270-76-82D82:12:00H.OLMK69808408-0636T VAvailable for patient opoePQLJNZJTKCYEJH5716-52-03V67:00:25 [facility] 2019-07-30 21:12:00 AAnsgkfhflq653228169V00mJJB1ZvsFZzTYbyGX Mili+2 XUW8xMlgBlC8BN2azPZQXJYNWoXecz2lWd82bD0859-25 -20T21:12:00 [facility])EMERGENCY PROVIDER REPORTREPORT#:[id number] REPORT STATUS: SignedDATE:07/30/19 TIME: 2111 PATIENT: BREANNA JIMENEZ UNIT #: [id number]#: [id number] ROOM/BED:AGE: 29 SEX: F PCP PHYS: No [...] (Auto) (16.0 - 50.0 %) 15.3 L [place] % (Auto) (0.0 - 13.0 %) 5.2 [...] pH (4.6 - 8.0) 6.0 Ur Specific [place] (1.001 - 1.035) 1.017 Urine Protein (NEGATIVE [...] Documented: Result Date Time Pulse Ox 100 07/293 B/P 118/80 07/29 2252 B/P Mean 92 [...] call to 911. at 0000 at 0024RPT #:[id number] OF REPORTEDEmercornerstone specialty hospital department tujkvz3923-16-67S41:12:00H.[id number] VAvailable for patient lcmuNFKVDTLRLEMTGK6031-71-68G10:24:32 [facility]"
[2023-05-26] MEDS ORDERED: DICYCLOMINE HCL 10 MG CAP ONE (23:40)
[2023-05-26] MEDS ORDERED: METOCLOPRAMIDE 10 MG/2mL INJ ONE (23:40)
[2023-05-26] MEDS ORDERED: DIPHENHYDRAMINE 50 MG/ML VIAL ONE (23:40)
[2023-05-26] MEDS ORDERED: KETOROLAC 30 MG/ML INJ ONE (23:40)
[2023-05-26] MEDS ORDERED: MORPHINE 4 MG/ML SYR ONE (23:40)
[2023-05-26] MEDS ORDERED: NA CHLORIDE 0.9% 1,000 ML ONE (23:41)
[2023-05-27 00:16] LABS: Specific Gravity 1.011 (1.005-1.030)
--- NOTE | 2023-05-27 00:46 | EDPHYS ---
Physician Documentation [facility] Name: Efrem Pastor Age: 33 yrs Sex: Female : 1990 Arrival Date: 05/26/2023 Time: 22:41 Bed 5 Private MD: ED Physician Mario Santo HPI: 05/25 23:02 This 33 yrs old Female presents to ER via Ambulatory with complaints of sp4 Nausea/Vomiting, Headache. 05/26 00:48 34-year-old female presents with complaint of acute onset headache nausea and vomiting..sp4 00:49 Patient states she has had a headache and vomiting for the past 3 days associated with sp4 body ache. Historical: - Allergies: 05/25 23:01 Haldol; as6 23:01 Scopolamine HBr; as6 - Home Meds: 23:01 Protonix 40 mg oral tablet, delayed release (enteric coated) 1 tab daily [Active]; as6 paroxetine HCl 40 mg oral tablet 1 tab daily [Active]; Compazine 5 mg oral tablet 1 tab [Active]; Tylenol #4 Oral [Active]; meloxicam 15 mg oral tablet 1 tab [Active]; - PMHx: 23:01 Acute cutaneous nerve entrapment syndrome; ACNE (Unknown); Anxiety; Gastroparesis; as6 Irritable bowel syndrome; neuropathy; PTSD; - PSHx: 23:01 bilateral ureter attachment; Cholecystectomy; leep procedure; Lumpectomy of breast; as6 right breast; - Immunization history:: Adult Immunizations unknown. - Infectious Disease History:: Denies. - Social history:: Smoking status: Reported history of juuling and/or vaping. - Family history:: not pertinent. ROS: 05/26 00:49 Constitutional: Negative for fever, chills, and weight loss, positive headache, sp4 positive nausea, positive vomiting, positive body aches All other systems are negative, Exam: 00:49 Constitutional: This is a well developed, well nourished patient who is awake, alert, sp4 and in no acute distress. Head/Face: Normocephalic, atraumatic. Eyes: Pupils equal round and reactive to light, extra-ocular motions intact. Lids and lashes normal. Conjunctiva and sclera are not injected. Cornea within normal limits. Periorbital areas with no swelling, redness, or edema. ENT: Nares patent. No nasal discharge, no septal abnormalities noted. Tympanic membranes are normal and external auditory canals are clear. Oropharynx with no redness, swelling, or masses, exudates, or evidence of obstruction, uvula midline. Mucous membranes moist. Neck: Trachea midline, no thyromegaly or masses palpated, and no cervical lymphadenopathy. Supple, full range of motion without nuchal rigidity, or vertebral point tenderness. Chest/axilla: Normal chest wall appearance and motion. Nontender with no deformity. No lesions are appreciated. Cardiovascular: Regular rate and rhythm with a normal S1 and S2. No gallops, murmurs, or rubs. Normal PMI, no JVD. No pulse deficits. Respiratory: Lungs have equal breath sounds bilaterally, clear to auscultation and percussion. No rales, rhonchi or wheezes noted. No increased work of breathing, no retractions or nasal flaring. Abdomen/GI: Soft, with normal bowel sounds. No distension or tympany. No guarding or rebound. No evidence of tenderness throughout. Back: No spinal tenderness. No costovertebral tenderness. Skin: Warm, dry with normal turgor. Normal color with no rashes, no lesions, and no evidence of cellulitis. MS/ Extremity: Pulses equal, no cyanosis. Neurovascular intact. Full, normal range of motion. Neuro: Awake and alert, GCS 15, oriented to person, place, time, and situation. Cranial nerves II-XII grossly intact. Motor strength 5/5 in all extremities. Sensory grossly intact. Psych: Awake, alert, with orientation to person, place and time. Behavior, mood, and affect are within normal limits Vital Signs: 05/25 22:59 BP 120 / 86; Pulse 109; Resp 16; Temp 98.3(TE); Pulse Ox 99% on R/A; Weight 63.5 kg; as6 Height 5 ft. 2 in. ; Pain 9/10; 05/26 00:30 BP 105 / 75; Pulse 72; Resp 17; Pulse Ox 100% ; Pain 0/10; jj7 00:57 BP 109 / 72; Pulse 79; Resp 16; Temp 97.8; Pulse Ox 100% ; Pain 0/10; jj7 05/25 22:59 Body Mass Index 25.61 (63.50 kg, 157.48 cm) as6 05/25 22:59 Pain Scale: Adult as6 05/26 00:30 Pain Scale: Adult jj7 00:57 Pain Scale: Adult jj7 Feliz Coma Score: 00:49 Eye Response: spontaneous(4). Motor Response: obeys commands(6). Verbal Response: sp4 oriented(5). Total: 15. MDM: 05/25 23:03 Patient medically screened. sp4 05/26 00:49 Differential diagnosis: Nonspecific abd pain, gastritis, viral gastroenteritis, sp4 gastroenteritis. Data reviewed: vital signs, nurses notes, old medical records, lab test result(s). ED course: Patient felt improved after the medications. Stable for discharge home.. 05/25 23:01 Order name: Test, Urine; Complete Time: 00:45 sp4 05/25 23:01 Order name: Saline Lock; Complete Time: 23:49 sp4 Administered Medications: 05/25 23:49 Drug: Ketorolac IVP 30 mg IVP once Route: IVP; Site: right forearm; [facility] 05/26 01:00 Follow up: Response: Marked relief of symptoms; Pain is decreased j 05/25 23:49 Drug: morphine IVP or IV 4 mg IVP once over 4 mins Route: IVP; Infused Over: 4 mins; [facility] Site: right forearm; 05/26 00:59 Follow up: Response: Marked relief of symptoms; Pain is decreased j 05/25 23:49 Drug: metoCLOPramide IVP 10 mg IVP once; over 1 to 2 minutes Route: IVP; Site: right [facility] forearm; 05/26 00:59 Follow up: Response: Marked relief of symptoms; Pain is decreased [facility] 05/25 23:50 Drug: NS 0.9% IV 1000 ml IV at 1 bolus Per protocol; 1000 mL bolus Route: IV; Rate: 1 jj7 bolus; Site: right forearm; 05/26 00:59 Follow up: IV Status: Completed infusion [facility] 05/25 23:50 Drug: Dicyclomine PO 20 mg PO once Route: PO; j 05/26 00:59 Follow up: Response: Marked relief of symptoms; Pain is decreased j 05/25 23:50 Drug: diphenhydrAMINE IVP 50 mg IVP once Route: IVP; Site: right forearm; jj7 05/26 00:58 Follow up: Response: Marked relief of symptoms; Pain is decreased jj7 Disposition Summary: 05/27/23 00:46 Discharge Ordered Notes: Location: Home sp4 Problem: new sp4 Symptoms: have improved sp4 Condition: Stable sp4 Diagnosis - Complicated headache syndromes sp4 - Acute headache, acute vomiting sp4 Followup: sp4 - With: Private Physician - When: 7 - 10 days - Reason: Recheck today's complaints Discharge Instructions: - Discharge Summary Sheet sp4 - General Headache Without Cause sp4 Forms: - Patient Portal Instructions sp4 Prescriptions: - promethazine 25 mg Oral Tablet - take 1 tablet ORAL route every 6 hours As needed; 20 tablet; Refills: 0, sp4 Product Selection Permitted Signatures: Dispatcher [employer] Stan Skaggs RN RN as6 Marguerite Ozuna RN RN jj7 Mario Santo MD MD sp4
--- NOTE | 2023-05-27 00:46 | ER ---
Nurse's Notes [facility] Name: Efrem Pastor Age: 33 yrs Sex: Female : 1990 Arrival Date: 05/26/2023 Time: 22:41 Bed 5 Private MD: Diagnosis: Complicated headache syndromes;Acute headache, acute vomiting Presentation: 05/25 22:59 Chief complaint: Patient states: Pt c/o headache, nausea, vomiting x 3 days. Pt also as6 c/o body aches, shoulder, hand and back pain that is ongoing. No relief with meloxicam or tylenol 4. Coronavirus screen: At this time, the client does not indicate any symptoms associated with coronavirus-19. Ebola Screen: No symptoms or risks identified at this time. Initial Sepsis Screen: Does the patient meet any 2 criteria? No. Patient's initial sepsis screen is negative. Does the patient have a suspected source of infection? No. Patient's initial sepsis screen is negative. Risk Assessment: Do you want to hurt yourself or someone else? Patient reports no desire to harm self or others. Onset of symptoms was May 23, 2023. 22:59 Method Of Arrival: Ambulatory as6 22:59 Acuity: BELINDA 3 as6 Triage Assessment: 23:04 General: Appears in no apparent distress. Behavior is calm, cooperative. Pain: as6 Complains of pain in generalizeed body aches. EENT: No signs and/or symptoms were reported regarding the EENT system. Neuro: Level of Consciousness is awake, alert, obeys commands, Oriented to person, place, time, situation, Moves all extremities. Gait is steady, Speech is normal. Neuro: Reports headache. Cardiovascular: Capillary refill < 3 seconds Patient's skin is warm and dry. Respiratory: Airway is patent Respiratory effort is even, unlabored, Respiratory pattern is regular, symmetrical. GI: Reports nausea, vomiting. : No signs and/or symptoms were reported regarding the genitourinary system. Derm: No signs and/or symptoms reported regarding the dermatologic system. Musculoskeletal: No signs and/or symptoms reported regarding the musculoskeletal system. Historical: - Allergies: 23:01 Haldol; as6 23:01 Scopolamine HBr; as6 - Home Meds: 23:01 Protonix 40 mg oral tablet, delayed release (enteric coated) 1 tab daily [Active]; as6 paroxetine HCl 40 mg oral tablet 1 tab daily [Active]; Compazine 5 mg oral tablet 1 tab [Active]; Tylenol #4 Oral [Active]; meloxicam 15 mg oral tablet 1 tab [Active]; - PMHx: 23:01 Acute cutaneous nerve entrapment syndrome; ACNE (Unknown); Anxiety; Gastroparesis; as6 Irritable bowel syndrome; neuropathy; PTSD; - PSHx: 23:01 bilateral ureter attachment; Cholecystectomy; leep procedure; Lumpectomy of breast; as6 right breast; - Immunization history:: Adult Immunizations unknown. - Infectious Disease History:: Denies. - Social history:: Smoking status: Reported history of juuling and/or vaping. - Family history:: not pertinent. Screenin:45 [facility] ED Fall Risk Assessment (Adult) History of falling in the last 3 months, jj7 including since admission No falls in past 3 months (0 pts) Confusion or Disorientation No (0 pts) Intoxicated or Sedated No (0 pts) Impaired Gait No (0 pts) Mobility Assist Device Used No (0 pt) Altered Elimination No (0 pt) Score/Fall Risk Level 0 - 2 = Low Risk Oriented to surroundings, Maintained a safe environment, Educated pt \T\ family on fall prevention, incl call for assistance when getting out of bed. Abuse screen: Denies threats or abuse. Nutritional screening: No deficits noted. Tuberculosis screening: No symptoms or risk factors identified. Assessment: 23:45 Neuro: Reports headache. GI: No deficits noted. Musculoskeletal: Reports pain in BILAT jj7 SHOULDERS. Vital Signs: 22:59 BP 120 / 86; Pulse 109; Resp 16; Temp 98.3(TE); Pulse Ox 99% on R/A; Weight 63.5 kg; as6 Height 5 ft. 2 in. ; Pain 9/10; 05/26 00:30 BP 105 / 75; Pulse 72; Resp 17; Pulse Ox 100% ; Pain 0/10; jj7 00:57 BP 109 / 72; Pulse 79; Resp 16; Temp 97.8; Pulse Ox 100% ; Pain 0/10; jj7 05/25 22:59 Body Mass Index 25.61 (63.50 kg, 157.48 cm) as6 05/25 22:59 Pain Scale: Adult as6 05/26 00:30 Pain Scale: Adult jj7 00:57 Pain Scale: Adult jj7 Feliz Coma Score: 00:49 Eye Response: spontaneous(4). Motor Response: obeys commands(6). Verbal Response: sp4 oriented(5). Total: 15. ED Course: 05/25 22:55 Patient arrived in ED. jj6 23:01 Mario Santo MD is Attending Physician. sp4 23:01 Triage completed. as6 23:04 Arm band placed on left wrist. as6 23:45 Patient has correct armband on for positive identification. Placed in gown. Bed in low jj7 position. Call light in reach. Side rails up X2. Provided Education on: CALL MICHELE USE. Warm blanket given. 23:45 Inserted saline lock: 20 gauge in right forearm, using aseptic technique. rv 23:49 Test, Urine Sent. jj7 23:56 Test, Urine Sent. oe 05/26 00:57 No provider procedures requiring assistance completed. IV discontinued, intact, jj7 bleeding controlled, No redness/swelling at site. Pressure dressing applied. Administered Medications: 05/25 23:49 Drug: Ketorolac IVP 30 mg IVP once Route: IVP; Site: right forearm; [facility] 05/26 01:00 Follow up: Response: Marked relief of symptoms; Pain is decreased [facility] 05/25 23:49 Drug: morphine IVP or IV 4 mg IVP once over 4 mins Route: IVP; Infused Over: 4 mins; [facility] Site: right forearm; 05/26 00:59 Follow up: Response: Marked relief of symptoms; Pain is decreased [facility] 05/25 23:49 Drug: metoCLOPramide IVP 10 mg IVP once; over 1 to 2 minutes Route: IVP; Site: right [facility] forearm; 05/26 00:59 Follow up: Response: Marked relief of symptoms; Pain is decreased [facility] 05/25 23:50 Drug: NS 0.9% IV 1000 ml IV at 1 bolus Per protocol; 1000 mL bolus Route: IV; Rate: 1 jj7 bolus; Site: right forearm; 05/26 00:59 Follow up: IV Status: Completed infusion [facility] 05/25 23:50 Drug: Dicyclomine PO 20 mg PO once Route: PO; jj7 05/26 00:59 Follow up: Response: Marked relief of symptoms; Pain is decreased jj7 05/25 23:50 Drug: diphenhydrAMINE IVP 50 mg IVP once Route: IVP; Site: right forearm; jj7 05/26 00:58 Follow up: Response: Marked relief of symptoms; Pain is decreased jj7 Medication: 05/25 23:45 VIS not applicable for this client. jj7 Outcome: 05/26 00:46 Discharge ordered by . sp4 00:57 Discharged to home ambulatory, jj7 00:57 Condition: improved 00:57 Discharge instructions given to patient, Instructed on discharge instructions, follow up and referral plans. Demonstrated understanding of instructions, follow-up care, Prescriptions given X 1, 01:05 Patient left the ED. jj7 Signatures: Chris Eagle Ronaldo, RN RN Tisha Cruz jj6 Stan Woody RN RN as6 Marguerite Ozuna RN RN jj7 Mario Santo MD MD sp4
[2023-05-27 16:54] VITALS: O2SAT 100
[2023-05-27 17:16] VITALS: BP 109/72; TEMP 97.8
== END 2023-05-27 01:05 | disposition home or self-care (01) ==
LOC: ER 22:41
DX: G44.59 Other complicated headache syndrome (principal); R11.10 Vomiting, unspecified
CPT/HCPCS: 81025; J1200; J2765; J7030

== ENCOUNTER 2023-05-30 08:06 | Emergency (ER) | payer SELFPAY ==
--- OUTSIDE RECORDS SUMMARY | 2023-05-30 08:10 | XMS REPORT | Continuity of Care Document ---
Author Name Unknown Address [address] [facility] [address] [place] [address] [facility] thconnect Address 1200 [facility] [address] [place] [address] Care Team Providers Care [place] Pumper Name Role Phone Kelton Daniels Jr. Primary [...] Date Source [place]/PLUS [id number] 2022 00:00:00 2023 00:00:00 BCBS 2 [id number] 2023 00:00:00 Problems Condition Name Condition Details [...] See comments 2022-02- 00:00: 00 Dystonic reactions [facility] Scopolam ine Propensi ty to adverse reaction s Active Other - See comments 2022-02 00:00: 00 Visual changes [facility] HALOPERI DOL DRUG INGREDI Active Med Other-Cmnt 2022-02 00:00: 00 [facility] SCOPOLAM INE DRUG INGREDI Active Other-Cmnt 2022-02 00:00: 00 [facility] haloperi dol DA Active SV HIVES - 00:00: 00 [facility] scopolam ine DA Active SV HIVES 06-11 00:00: 00 [facility] No Known Allergie s DA Active U 02-09 00:00: 00 [facility] No Known Allergie s DA Active U 06-24 00:00: 00 [facility] No Known Allergie s DA Active U 06-24 00:00: 00 [facility] scopolam ine DA Active GA 0 4-10 00:00: 00 [facility] scopolam ine DA Active GA RASH-ES 4-10 00:00: 00 [facility] No Known Allergie s DA Active U 07-29 00:00: 00 [facility] No Known Allergie s DA Active U 07-29 00:00: 00 [facility] No Known Drug Intolera nces DA Active U 10-24 00:00: 00 [facility] No Known Drug Intolera nces DA Active U NONE 10-24 00:00: 00 [facility] NO KNOWN ALLERGIE S Drug Class Active [facility] Social History Social Habit Start [...] Source Tobacco smoking consumption unknown [facility] Ex-smoker 2023-01-27 00:00:00 2023-01-27 00:00:00 Laura [...] MG oral Tablet 02-24 00:00: 00 Yes [id number] 1{tbl} Q.5D Take 1 tablet by mouth 2 times daily as needed for pain. Laura hall Methocarbam ol 500 MG oral Tablet 02-24 00:00: 00 Yes [id number] 500mg QD Take 1 tablet (500 mg [...] MG oral Tablet 1- 00:00: 00 Yes [id number] 25mg QD Take 1 tablet (25 mg total) by mouth daily as needed for nausea. Laura hall Valacyclovi r HCl (Valtrex) 500 MG oral Tablet 2022-02 00:00: 00 Yes [id number] 500mg Take 1 tablet (500 mg total) [...] Thu12/26/22 at 2030, 1 mL [facility] penicillin g benzathine (BICILLIN L-A) injection 1.2 Million Units 2022-02 01:45: 00 12-27 01:53 :00 No 1.210 1.2 Million Units, Intramuscu lar, ONCE, 1 dose, On Thu12/26/22 at 1945, RONNIE
Re ason for Anti-Infec tive: Empiric Therapy for Suspected Infection< br>Empiric Therapy Site: HEENT
D uration of therapy: Once (ED) [facility] acetaminoph en (TYLENOL) tablet 650 mg 2022-02 01:45: 00 12-27 01:50 :00 No 650mg 650 mg, Oral, ONCE, 1 dose, On Thu12/26/22 at 1945, RONNIE [facility] ketorolac (TORADOL) injection 30 mg 2022-02 00:45: 00 12-27 00:59 :00 No 30mg 30 mg, Intramuscu lar, ONCE, 1 dose, On Thu12/26/22 at 1845, [facility] hydrocortis one 1 mg/4 mL in nystatin suspension- diphenhydrA MINE solution suspension 2022-02 00:00: 00 12-30 05:59 :00 No [id number] 15mL Take 15 mL by mouth every 6 (six) hours as needed for Pain (scale 4-6) for up to 3 days. [facility] Famotidine (PEPCID) 20 MG oral [...] Systolic blood pressure 2022-12-27 02:16:00 111 mm[Hg] [facility] Diastolic blood pressure 2022-12-27 02:16:00 82 mm[Hg] [facility] Heart rate 2022-12-27 02:16:00 93 /min [facility] Body temperature 2022-12-27 02:16:00 37.56 Caitlyn [facility] Respiratory rate 2022-12-27 02:16:00 20 /min [facility] Oxygen saturation in Arterial blood by Pulse oximetry 2022-12-27 02:16:00 96 /min [facility] Body height 2022-12-26 23:57:00 157.5 cm [facility] Body weight 2022-12-26 23:57:00 58.968 kg [facility] BMI 2022-12-26 23:57:00 23.78 kg/m2 [facility] Procedures Procedure Date / Time Performed Performing Clinicia n Source CBC WITH DIFF 2022-12-27 01:49:00 Marylou Johnson [facility] RAPID STREP SCREEN FOR GROUP A 2022-12-27 00:59:00 Marylou Johnson [facility] NOTICE OF PRIVACY PRACTICES 2022-12-26 23:28:27 Doctor Unassigned, [place] [facility] CONSENT/REFUSAL FOR DIAGNOSIS AND TREATMENT 2022-12-26 23:27:35 Doctor Unassigned, [place] [facility] Encounters Start Date/Time End Date/Time Encounter Type Admission Type Attending Clinicians Care Facility Care Department Encounter ID Source 2020-06-24 15:53:22 Inpatient [facility] [id number] [facility] 2020-05-19 11:42:02 Inpatient [facility] [id number] 2019-07-30 21:08:00 Inpatient [facility] ER [id number] [facility] 2023-05-04 14:30:00 2023-05-04 14:30:00 Outpatient PREZAGIOVANY Garcia LAURA PIZANO [id number] [facility] 2023-05-04 11:15:00 2023-05-04 11:15:00 Outpatient PREZAS, GIOVANY PIZANO [id number] [facility] 2023-05-04 11:00:00 2023-05-04 11:00:00 Outpatient [facility] [id number] [facility] 2023-04-22 00:00:00 2023-04-22 00:00:00 Outpatient PREZAS, GIOVANY PIZANO [id number] [facility] 2023-04-14 02:00:00 2023-04-14 03:25:00 Emergency EM Glynn Jose HCARG ER [id number] [facility] 2023-04-10 00:00:00 2023-04-10 00:00:00 Outpatient PREZAS, GIOVANY PIZANO [id number] [facility] 2023-03-27 09:00:00 2023-03-27 09:00:00 Outpatient PREZAS, GIOVANY PIZANO [id number] [facility] 2023-03-27 00:00:00 2023-03-27 00:00:00 Outpatient PREZAS, GIOVANY PIZANO [id number] [facility] 2023-03-27 00:00:00 2023-03-27 00:00:00 Outpatient PREZAS, GIOVANY PIZANO [id number] [facility] 2023-03-26 00:00:00 2023-03-26 00:00:00 Outpatient PREZAS, GIOVANY PIZANO [id number] [facility] 2023-03-26 00:00:00 2023-03-26 00:00:00 Outpatient PREZAS, GIOVANY PIZANO [id number] [facility] 2023-03-25 14:00:00 2023-03-25 14:00:00 Outpatient PREZAS, GIOVANY DIALLOSEY [id number] [facility] 2023-03-10 00:00:00 2023-03-10 00:00:00 Outpatient PREZAS, GIOVANY PIZANO LAURA [id number] [facility] 2023-03-09 00:00:00 2023-03-09 00:00:00 Outpatient PREZAS, GIOVANY DIALLOSEY [id number] [facility] 2023-03-04 00:00:00 2023-03-04 00:00:00 Outpatient PREZAS, GIOVANY PIZANO LAURA [id number] [facility] 2023-03-03 00:00:00 2023-03-03 00:00:00 Outpatient PREZAS, GIOVANY PIZANO LAURA [id number] [facility] 2023-03-02 00:00:00 2023-03-02 00:00:00 Outpatient PREZAS, GIOVANY PIZANO LAURA [id number] [facility] 2023-03-02 00:00:00 2023-03-02 00:00:00 Outpatient PREZAS, GIOVANY PIZANO LAURA [id number] [facility] 2023-03-02 00:00:00 2023-03-02 00:00:00 Outpatient PREZAS, GIOVANY DIALLOHUMPHREY PIZANO [id number] [facility] 2023-03-02 00:00:00 2023-03-02 00:00:00 Outpatient PREZAS, GIOVANY PIZANO LAURA [id number] [facility] 2023-02-27 00:00:00 2023-02-27 00:00:00 Outpatient PREZAS, GIOVANY DIALLOHUMPHREY PIZANO [id number] Laura Sey[facility] 2023-02-25 00:00:00 2023-02-25 00:00:00 Outpatient PREZAS, GIOVANY LAURA PIZANO [id number] Laura [facility] 2023-02-24 11:30:00 2023-02-24 11:30:00 Outpatient PREZAS, GIOVANY LAURA PIZANO [id number] [facility] 2023-02-18 00:00:00 2023-02-18 00:00:00 Outpatient PREZAS, GIOVANY PIZANO [id number] [facility] 2023-02-12 00:00:00 2023-02-12 00:00:00 Outpatient PREZAS, GIOVANY PIZANO [id number] [facility] 2023-02-12 00:00:00 2023-02-12 00:00:00 Outpatient PREZAS, GIOVANY PIZANO [id number] [facility] 2023-02-11 00:00:00 2023-02-11 00:00:00 Outpatient PREZAS, GIOVANY PIZANO [id number] [facility] 2023-01-28 00:00:00 2023-01-28 00:00:00 Outpatient PREZAS, GIOVANY PIZANO [id number] [facility] 2023-01-28 00:00:00 2023-01-28 00:00:00 Outpatient PREZAS, GIOVANY PIZANO [id number] [facility] 2023-01-27 13:00:00 2023-01-27 13:00:00 Outpatient LAB90 LAURA PIZANO [id number] [facility] 2023-01-27 10:45:00 2023-01-27 10:45:00 Outpatient PREZAS, GIOVANY PIZANO [id number] [facility] 2023-01-27 00:00:00 2023-01-27 00:00:00 Outpatient PREZAS, GIOVANY PIZANO [id number] [facility] 2022-12-26 17:57:00 2022-12-26 20:20:00 Emergency Marylou Johnson [facility] [id number] [facility] 2022-12-26 17:57:00 2022-12-26 20:20:00 Emergency X MARYLOU JOHNSON [facility] ERT [id number] [facility] 2022-06-11 11:10:00 2022-06-11 12:41:00 Emergency EM Ted Schultz [facility] ER [id number] 63 [facility] 2021-02-09 23:10:00 2021-02-10 00:19:00 Emergency EM Kaelyn Peguero [facility] ER [id number] [facility] Results Test Description Test Time Test Comments Results Result Co mments Source [facility] [facility], [address], [place], [address], POC [id number] 05:04:00* Test Item Value Reference Range Interpretation [...] PT value based on a regression analysis. [facility], [address], [place], [address], URINE DRUG SCREEN [id number] 02:46:00* Test Item Value Reference Range Interpretation [...] results should not beused for non-medical purposes. [facility], [address], [place], [address], POC,HCG URINE, [id number] 02:38:00* Test Item Value Reference Range Interpretation Comme nts POC,HCG URINE, QUALITATIVE ( test code = EDHCGU) Negative [facility] [address] [facility] [address], [place], [address], URINALYSIS [id number] 02:32:00* Test Item Value Reference Range Interpretation [...] [facility], [address], [place], [address], - CT ABD PELVIS W/O [id number] 02:32:00 [facility] : 1990 Sex: FName: [facility] 1990 Age/S: [address] Unit #: [id number] Loc: [place] [address] Phys: Jose Maki MD Acct: [id number] Dis Date: Status: PRE ER PHONE #: Exam Date: 04/14/2023 8221 FAX #: Reason: epigastric abd pain suspect gastroparesis EXAMS: CPT CODE: [id number] CT ABD PELVIS W/O CONT 69571 - CT ABD PELVIS W/O CONT INDICATION [...] Signed Report (CONTINUED) Name: [facility] 1990 Age/S: 32 / F [address] Unit #: [id number] Loc: [place] [address] Phys: Jose Maki MD Acct: [id number] Dis Date: Status: PRE ER PHONE #: Exam Date: 04/14/2023226 FAX #: Reason: epigastric abd pain suspect gastroparesis EXAMS: CPT CODE: [id number] CT ABD PELVIS W/O CONT 77416 (Continued) CC: Jose Maki MD Technologist:Milagro Rosen RT (R) CT CTDI: 8 DLP: 395 Trnscb Date/Time: 04/14/2023 (023) [email or web address] Orig Print D/T: S: 04/14/2023 (023) PAGE 2 Signed ReportCOMPREHENSIVE METABOLIC [id number] 02:31:00* Test Item Value Reference Range Interpretation [...] code = EDALP) 127 U/L 42-141 N [facility], [address], [address], POC,[id number] 02:31:00* Test Item Value Reference Range Interpretation Comme [facility] POC,AMYLASE (test code = EDAMY) 118 U/L 14-97 H [facility], [address], [address], COMPLETE BLOOD COUNT (CBC)2023-04-14 02:21:00* Test Item Value Reference Range Interpretation Comme [facility] POC,WHITE BLOOD CELL (test c ode [...] [facility], [address], [place], [address], UA RFLX MICROSCOPIC [id number] 11:54:00* Test Item Value Reference Range Interpretation [...] Suprapubic PainURINE SOURCE: CLEAN CATCH URINEUR HCG [id number] 11:54:00* Test Item Value Reference Range Interpretation Comme nts UR HCG QUAL (test code = HCGQLU) NEGATIVE NEGATIVE Indication for culture: Suprapubic PainURINE SOURCE: CLEAN CATCH URINE COMPREHENSIVE METABOLIC [id number] 11:49:00* Test Item Value Reference Range Interpretation [...] code = ALKP) 105 U/L 45-117 N [id number] 11:49:00* Test Item Value Reference Range Interpretation Comme nts AMYLASE (test code = PARAM) 73 IU/L 25-115 N [id number] 11:49:00* Test Item Value Reference Range Interpretation Comme nts LIPASE (test code = LIP) 134 U/L 73-393 N CBC W/AUTO [id number] 11:33:00* Test Item Value Reference Range Interpretation [...] code = RBCM) NO NORMAL COMPREHENSIVE METABOLIC [id number] 16:11:00* Test Item Value Reference Range Interpretation [...] > or = 60 ml/min/1.73M2IF PATIENT IS -KOSOVAN, MULTIPLY REPORTED RESULT BY1.21. [Automated message] The [...] code = ALKP) 139 U/L 45-117 H [id number] 16:11:00* Test Item Value Reference Range Interpretation Comme nts LIPASE (test code = LIP) 108 U/L 73-393 N URINALYSIS W REFLEX [id number] 16:05:00* Test Item Value Reference Range Interpretation [...] UAMICRO) Y= DO UA MICRO UR HCG [id number] 16:05:00* Test Item Value Reference Range Interpretation Comme nts UR HCG QUAL (test code = HCGQLU) NEGATIVE NEGATIVE URINALYSIS W REFLEX [id number] 16:05:00* Test Item Value Reference Range Interpretation [...] = UAMICRO) Y= DO UA MICRO UA [id number] 16:05:00* Test Item Value Reference Range Interpretation Comme nts UA WBC (test code = WBCU) 0-2 #/hpf 0-5 UA RBC (test code = RBCU) 0-2 #/hpf 0-5 UA EPITHELIAL CELLS (test co de = EPIU) 2+ /hpf NEG,FEW A UA BACTERIA (test code = BACU) FEW /hpf NEGATIVE A UA AMORPHOUS SEDIMENT (test code = AMORU) FEW /hpf NEG,FEW UR HCG [id number] 16:05:00* Test Item Value Reference Range Interpretation Comme nts UR HCG QUAL (test code = HCGQLU) NEGATIVE NEGATIVE URINALYSIS W REFLEX [id number] 16:05:00* Test Item Value Reference Range Interpretation [...] UAMICRO) Y= DO UA MICRO UR HCG [id number] 16:05:00* Test Item Value Reference Range Interpretation Comme nts UR HCG QUAL (test code = HCGQLU) NEGATIVE NEGATIVE DRUGS OF ABUSE [id number] 16:01:00* Test Item Value Reference Range Interpretation [...] 300 NG/MLPHENCYCLIDINE 25 NG/ML URINALYSIS W REFLEX [id number] 15:58:00* Test Item Value Reference Range Interpretation [...] NEEDED? (test code = UAMICRO) UR HCG [id number] 15:58:00* Test Item Value Reference Range Interpretation Comme nts UR HCG QUAL (test code = HCGQLU) NEGATIVE NEGATIVE CBC W/AUTO [id number] 15:52:00* Test Item Value Reference Range Interpretation [...] = RBCM) NO NORMAL URINALYSIS W REFLEX [id number] 13:00:00* Test Item Value Reference Range Interpretation [...] Y= DO UA MICRO UA ICTOTEST FOR [id number] 13:00:00* Test Item Value Reference Range Interpretation Comme nts UA ICTOTEST FOR BILIRUBIN (t est code = ICTOU) POSITIVE NEGATIVE A UA [id number] 13:00:00* Test Item Value Reference Range Interpretation Comme nts UA WBC (test code = WBCU) 0-2 #/hpf 0-5 UA RBC (test code = RBCU) 3-5 #/hpf 0-5 UA EPITHELIAL CELLS (test co de = EPIU) FEW /hpf NEG,FEW UA BACTERIA (test code = BACU) FEW /hpf NEGATIVE A UA MUCUS (test code = MUCU) 1+ /hpf NEG,FEW A UR HCG [id number] 13:00:00* Test Item Value Reference Range Interpretation Comme nts UR HCG QUAL (test code = HCGQLU) NEGATIVE NEGATIVE DRUGS OF ABUSE [id number] 12:57:00* Test Item Value Reference Range Interpretation [...] 300 NG/MLPHENCYCLIDINE 25 NG/ML URINALYSIS W REFLEX [id number] 12:56:00* Test Item Value Reference Range Interpretation [...] Y= DO UA MICRO UA ICTOTEST FOR [id number] 12:56:00* Test Item Value Reference Range Interpretation Comme nts UA ICTOTEST FOR BILIRUBIN (t est code = ICTOU) POSITIVE NEGATIVE A UR HCG [id number] 12:56:00* Test Item Value Reference Range Interpretation Comme nts UR HCG QUAL (test code = HCGQLU) NEGATIVE NEGATIVE URINALYSIS W REFLEX [id number] 12:53:00* Test Item Value Reference Range Interpretation [...] UAMICRO) Y= DO UA MICRO UR HCG [id number] 12:53:00* Test Item Value Reference Range Interpretation Comme nts UR HCG QUAL (test code = HCGQLU) NEGATIVE NEGATIVE URINALYSIS W REFLEX [id number] 12:53:00* Test Item Value Reference Range Interpretation [...] UAMICRO) Y= DO UA MICRO UR HCG [id number] 12:53:00* Test Item Value Reference Range Interpretation Comme nts UR HCG QUAL (test code = HCGQLU) NEGATIVE NEGATIVE - XR ABDOMEN [id number] 12:16:00 [facility] DOB: 1990 Sex: F FAX: Sawyer Centeno II [place]: St: PRE Name: BREANNA QUEEN FSED : 1990 Age/S: 30/F [address] Unit #: [id number] Loc: [place] [address] Phys: Sawyer Centeno II, MD Acct: [id number] Dis Date: Status: PRE ER PHONE #: Exam Date: 05/19/2020 1212 FAX #: Reason: abdominal pain EXAMS: CPT CODE: [id number] XR ABDOMEN 2V 27637 - XR ABDOMEN 2V PROVIDED REASON FOR [...] By: [email or web address] Orig Print D/T: S: 05/19/2020 (3682) PAGE 1 Signed ReportBASIC METABOLIC PANEL 2020-05-19 [...] > or = 60 ml/min/1.73M2IF PATIENT IS -KOSOVAN, MULTIPLY REPORTED RESULT BY1.21. [Automated message] The system which generated this result transmitted reference range: >=60. The reference range was not used to interpret this result as normal/abnormal. CREATININE (test code = CREAT) 0.64 mg/dl 0.55-1.02 N CALCIUM (test code = CA) 9.8 mg/dL 8.5-10.1 N LIVER [id number] 12:08:00* Test Item Value Reference Range Interpretation [...] code = ALKP) 119 U/L 45-117 H [id number] 12:08:00* Test Item Value Reference Range Interpretation Comme nts LIPASE (test code = LIP) 67 U/L 73-393 L CBC W/AUTO [id number] 11:43:00* Test Item Value Reference Range Interpretation [...] = RBCM) NO NORMAL URINALYSIS W REFLEX [id number] 22:06:00* Test Item Value Reference Range Interpretation [...] MUCU) 2+ /hpf NEG,FEW A BASIC METABOLIC [id number] 21:54:00* Test Item Value Reference Range Interpretation [...] > or = 60 ml/min/1.73M2IF PATIENT IS -KOSOVAN, MULTIPLY REPORTED RESULT BY1.21. CREATININE (test code = CREAT) 0.70 mg/dL 0.51-0.95 N CALCIUM (test code = CA) 9.3 mg/dL 8.5-10.1 N LIVER [id number] 21:54:00* Test Item Value Reference Range Interpretation [...] code = ALKP) 69 U/L 50-136 N [id number] 21:54:00* Test Item Value Reference Range Interpretation Comme nts LIPASE (test code = LIP) 63 U/L 73-393 L BASIC METABOLIC [id number] 21:53:00* Test Item Value Reference Range Interpretation [...] > or = 60 ml/min/1.73M2IF PATIENT IS -KOSOVAN, MULTIPLY REPORTED RESULT BY03.01. CREATININE (test code = CREAT) 0.70 mg/dL 0.51-0.95 N CALCIUM (test code = CA) 9.3 mg/dL 8.5-10.1 N LIVER [id number] 21:53:00* Test Item Value Reference Range Interpretation [...] ( test code = ALKP) U/L 50-136 [id number] 21:53:00* Test Item Value Reference Range Interpretation Comme nts LIPASE (test code = LIP) 63 U/L 73-393 L BASIC METABOLIC [id number] 21:52:00* Test Item Value Reference Range Interpretation [...] > or = 60 ml/min/1.73M2IF PATIENT IS -KOSOVAN, MULTIPLY REPORTED RESULT BY1.21. CREATININE (test code = CREAT) 0.70 mg/dL 0.51-0.95 N CALCIUM (test code = CA) 9.3 mg/dL 8.5-10.1 N LIVER [id number] 21:52:00* Test Item Value Reference Range Interpretation [...] ( test code = ALKP) U/L 50-136 [id number] 21:52:00* Test Item Value Reference Range Interpretation Comme nts LIPASE (test code = LIP) 63 U/L 73-393 L BASIC METABOLIC [id number] 21:51:00* Test Item Value Reference Range Interpretation [...] > or = 60 ml/min/1.73M2IF PATIENT IS -KOSOVAN, MULTIPLY REPORTED RESULT BY1.21. CREATININE (test code = CREAT) 0.70 mg/dL 0.51-0.95 N CALCIUM (test code = CA) 9.3 mg/dL 8.5-10.1 N LIVER [id number] 21:51:00* Test Item Value Reference Range Interpretation [...] ( test code = ALKP) U/L 50-136 [id number] 21:51:00* Test Item Value Reference Range Interpretation Comme nts LIPASE (test code = LIP) 63 U/L 73-393 L BASIC METABOLIC [id number] 21:49:00* Test Item Value Reference Range Interpretation [...] = CA) 9.3 mg/dL 8.5-10.1 N LIVER [id number] 21:49:00* Test Item Value Reference Range Interpretation [...] ( test code = ALKP) U/L 50-136 [id number] 21:49:00* Test Item Value Reference Range Interpretation Comme nts LIPASE (test code = LIP) 63 U/L 73-393 L BASIC METABOLIC [id number] 21:48:00* Test Item Value Reference Range Interpretation [...] = CA) 9.3 mg/dL 8.5-10.1 N LIVER [id number] 21:48:00* Test Item Value Reference Range Interpretation [...] ( test code = ALKP) U/L 50-136 [id number] 21:48:00* Test Item Value Reference Range Interpretation Comme nts LIPASE (test code = LIP) U/L 73-393 BASIC METABOLIC [id number] 21:46:00* Test Item Value Reference Range Interpretation [...] (test code = CA) mg/dL 8.5-10.1 LIVER [id number] 21:46:00* Test Item Value Reference Range Interpretation [...] ( test code = ALKP) U/L 50-136 [id number] 21:46:00* Test Item Value Reference Range Interpretation Comme nts LIPASE (test code = LIP) U/L 73-393 CBC W/AUTO [id number] 21:43:00* Test Item Value Reference Range Interpretation [...] Notes Date/Time Note Provider Source 2023-04-14 02:04:00 [id number] EK1oI t/[id number]: 04:00 [facility] ([facility])EMERGENCY PROVIDER REPORTREPORT#:[id number] REPORT STATUS: SignedDATE:04/14/23 TIME: 0204 PATIENT: BREANNA JIMENEZ UNIT #: [id number]#: [id number] ROOM/BED:AGE: 32 SEX: F PCP PHYS: No Primary or Family PhysicianSERVICE AUTHOR: Jose Maki MD * ALL edits or amendments must be made on the electronic/computer document * HPI-Abd Pain F Under 40 Free Text HPI NotesFree Text HPI Kbscn52-hjyw-hzq presents with abdominal pain that started around [...] (5.0 - 8.0) 7.0 POC Ur Specif [place] (1.001 - 1.035) 1.025 POC Urine Protein [...] or a call to 911. at 0504RPT #:[id number] OF REPORTEDEmerdelta memorial hospital department putdkz1347-52-06H43:04:00H.KCDW90643905-9256I VAvailable for patient nghgBPVBHIMPYMNDKC9979-11-44R86:04:38 [facility] 2023-02-24 11:47:47 ADLorpDHA8iAbAkRL7nAm5REahQh5j3gM2RwPR/f jHA9B BWVmt+x6Z4vcTj6YDIi0566-16-98F60:47:47Formatt ing of this note is different from the original.Chief ComplaintPatient presents withFollow-Up Visit1 month follow up visitLauren Solaresectronically signed by Miriam French LVN at 02/24/2023 11:48 AM VFF07757-8Sartv ZhvcJA9744-32-29Y58:48:14Nurse NoteTXT1.2.840.821104.1.13.131.2.7.2.339969|3 [id number] for patient [id number] NoteLNNARRATIVEFormatted C-CDA narrative [facility]27[address] [facility] Ho[id number]- 16T11:48:141.2.840.248622.1.72.3.15|1.2.840.1 [id number] [facility] 2022-06-11 11:33:00 [id number]/u0zFYdqqoddZhEs6dM9U0rjpm c+eVJ N55bszOwhY8+HZvCGqQdIIGABCCODQq7317-29-12R33: 33:00 [facility] ([facility])EMERGENCY PROVIDER REPORTREPORT#:[id number] REPORT STATUS: SignedDATE:06/11/22 TIME: 1133 PATIENT: BREANNA JIMENEZ UNIT #: [id number]#: [id number] ROOM/BED:AGE: 32 SEX: F PCP PHYS: Undefined [...] % (Auto) (16 - 50 %) 22.9 [place] % (Auto) (0.0 - 13.0 %) 9.8 [...] pH (4.6 - 8.0) 7.0 Ur Specific [place] (1.001 - 1.035) 1.020 Urine Protein (NEGATIVE [...] yesterday. After discussion patient states was at [facility] yesterdayand was prescribed compazine/reglan after [...] or a call to 911. at 1245RPT #:[id number] OF REPORTEDEmerdelta memorial hospital department kuzesz5144-40-23V12:33:00H.[id number] VAvailable for patient vfdoNKHCNECTTDBPXL3062-66-46Q62:45:50 [facility] 2021-02-09 23:43:00 [id number]s+JM qb4HT KkjFYTn3S1Zf2L8uWk7hWlnGrJKvnW62987-13-28L82: 43:00 [facility] ([facility])EMERGENCY PROVIDER REPORTREPORT#:[id number] REPORT STATUS: SignedDATE:02/09/21 TIME: 2343 PATIENT: BREANNA JIMENEZ UNIT #: [id number]#: [id number] ROOM/BED:AGE: 30 SEX: F PCP PHYS: No Primary or Family PhysicianSERVICE AUTHOR: Kaelyn Peguero MD * ALL edits or amendments must be made on the electronic/computer document * TNC-Vdl-Ybbf Illness GeneralConfirmed Patient YesPatient Type New patientInitial Greet Date/Time 02/09/21 2312 PresentationChief Complaint Body aches, Chills, Cough Free Text HPI NotesFree Text HPI Ansns37-wohu-wue female comes emergency room complaining of cough, [...] (2008). Additional Surgical Historybilateral ureter reattachment 1997 [facility] 2018 Botox injection to pylorusAlcohol Use [...] new symptoms or worsening symptoms. at 0652RPT #:[id number] OF REPORTEDEmergency department hwevln9352-42-65I51:43:00H.QBBI70696571-6024S VAvailable for patient lyfhVNGFSWZVLWHFMC8012-73-08J56:53:06 [facility] 2020-06-24 15:35:00 OCffhshturf11771649QQ4WH+B0Odneiqyd2ccjb n9MbG cw++6/0dzucP6kgdTzp8+NnE7/NCph3ol8O9e71960-79 -16T15:35:00 [facility] ([facility])EMERGENCY PROVIDER REPORTREPORT#:[id number] REPORT STATUS: SignedDATE:06/24/20 TIME: 1534 PATIENT: BREANNA JIMENEZ UNIT #: [id number]#: [id number] ROOM/BED:AGE: 30 SEX: F PCP PHYS: No Primary or Family PhysicianSERVICE AUTHOR: Maicol Coy MD * ALL edits or amendments must be made on the electronic/computer document * HPI-Abd Pain F Under 40 GeneralInitial Greet Date/Time 06/24/20 1529PCPDr. Nan in [place] PresentationChief Complaint Abdominal pain, Nausea, Vomiting [...] Nothing Free Text HPI NotesFree Text HPI Jjeyu30a M2 LMP 19 May 2020 c/o acute on chronic gastroparesis related to IBS and/or THC use for past 2d with nonbloody N/V x 6. She is visiting from [place]. Risk-Abd Pain F Under 40)( Ectopic Risk [...] % (Auto) (16 - 50 %) 48.2 [place] % (Auto) (0.0 - 13.0 %) 13.0 [...] pH (4.6 - 8.0) 7.0 Ur Specific [place] (1.001 - 1.035) 1.020 Urine Protein (NEGATIVE [...] the plan for smoking cessation. at 2053RPT #:[id number] OF REPORTEDEmergency department husvlo6061-65-35E85:35:00H.MYMO60896421-9332V VAvailable for patient uengNRSXHYXGBWTFGE5917-40-31J96:53:15 [facility] 12:11:00 [id number] 3xkQV s5nnMFCikrO6lVqsfUSp1mTWgTiBJ8F2BQBI7d4678-76 -10T12:11:00 [facility] ([facility])EMERGENCY PROVIDER REPORTREPORT#:[id number] REPORT STATUS: SignedDATE:05/19/20 TIME: 1211 PATIENT: BREANNA QUEEN UNIT #: [id number]#: [id number] ROOM/BED:AGE: 30 SEX: F PCP PHYS: Brayan WinnERVICE AUTHOR: Sawyer Centeno II, MD * ALL edits or amendments must be made on the electronic/computer document * HPI-Abd Pain F Under 40 Free Text HPI NotesFree Text HPI NotesThe patient tells me she has a history of gastroparesis but is not a diabetic. She tells me that she is from [facility] and that she has GI specialist in [facility] whose name is Dr. Hendrix. She [...] pH (4.6 - 8.0) 6.0 Ur Specific [place] (1.001 - 1.035) >= 1.030 Urine Protein [...] (Auto) (16 - 50 %) 9.5 L [place] % (Auto) (0.0 - 13.0 %) 4.3 [...] Entered: 05/19/2020 1219 IMPRESSION:No acute process. Location: M87Odczrypwta By: Emily CABALLERO M.D. Imaging StatementRadiographic studies [...] HTN F/u with PCP/other doc at 1708RPT #:[id number] OF REPORTEDEmergency department ckbomw7037-15-47E83:11:00H.WKVA69780895-7431P VAvailable for patient mdbhQVIIFDTWRRELOW3852-04-57K70:08:49 [facility] 2019-07-30 21:12:00 RHfxtiukzsf233809873vz7Diu+z44of/FcEkEtU j+eWE mQnHVc2jXGIkITOsRGLP7hyExMw9wTOf093iF79034-42 -20T21:12:00 [facility] ([facility])EMERGENCY PROVIDER REPORTREPORT#:[id number] REPORT STATUS: SignedDATE:07/30/19 TIME: 2111 PATIENT: BREANNA JIMENEZ UNIT #: [id number]#: [id number] ROOM/BED:AGE: 29 SEX: F PCP PHYS: No [...] (Auto) (16.0 - 50.0 %) 15.3 L [place] % (Auto) (0.0 - 13.0 %) 5.2 [...] pH (4.6 - 8.0) 6.0 Ur Specific [place] (1.001 - 1.035) 1.017 Urine Protein (NEGATIVE [...] in particular, there [facility]. The history, exam, diagnostic [...] or a call to 911. at 0000RPT #:[id number] OF REPORTEDEmergency department hlxupe9562-57-92N91:12:00H.YTFQ01585736-6686K VAvailable for patient ykisTTCNXYKWBGNRYK7706-78-29R13:00:25 [facility] 2019-07-30 21:12:00 CPkbkfwvnwa945867020D92wYPS2WngBSgCXxiQJ Mili+2 RCF1kYrwDaG2HA2irIKAAXZBIxDtew2rOx57eB4064-24 -20T21:12:00 [facility] ([facility])EMERGENCY PROVIDER REPORTREPORT#:[id number] REPORT STATUS: SignedDATE:07/30/19 TIME: 2111 PATIENT: BREANNA JIMENEZ UNIT #: [id number]#: [id number] ROOM/BED:AGE: 29 SEX: F PCP PHYS: No [...] (Auto) (16.0 - 50.0 %) 15.3 L [place] % (Auto) (0.0 - 13.0 %) 5.2 [...] pH (4.6 - 8.0) 6.0 Ur Specific [place] (1.001 - 1.035) 1.017 Urine Protein (NEGATIVE [...] call to 911. at 0000 at 0024RPT #:[id number] OF REPORTEDEmerdelta memorial hospital department oefhjb5184-92-43D68:12:00H.NNQX90122693-9720I VAvailable for patient xfxoKGFFFLYQTTZTPH6493-24-32O67:24:32 [facility]"
[2023-05-30] MEDS ORDERED: KETOROLAC 30 MG/ML INJ ONE (08:36)
[2023-05-30] MEDS ORDERED: PROMETHAZINE INJ 25 MG/ML AMP ONE ×2 (08:36→10:25)
[2023-05-30] MEDS ORDERED: DICYCLOMINE HCL 20 MG/2 ML AMP IM ONE (08:37)
[2023-05-30] MEDS ORDERED: METOCLOPRAMIDE 10 MG/2mL INJ ONE (08:37)
[2023-05-30] MEDS ORDERED: NA CHLORIDE 0.9% 1,000 ML ONE (08:37)
[2023-05-30] MEDS ORDERED: DIPHENHYDRAMINE 50 MG/ML VIAL ONE (08:37)
[2023-05-30 09:09] LABS: Absolute Basophils 0.1 K/uL (0-0.5); Absolute Eosinophils 0.1 K/uL (0-0.5); Absolute Lymphocytes (CBC) 1.9 K/uL (0.7-4.9); Absolute Monocytes 0.9 K/uL (0.1-1.3); Absolute Neutrophil 4.1 K/uL (1.8-8.0); Basophils % 1.1 % (0-1.3); Hematocrit 37.7 % (36.0-45.0); Hemoglobin 12.4 g/dL (12.0-15.0); Lymphocytes % 27.2 % (15.3-44.8); MCH 25.3 pg (27.0-35.0); MCHC 32.8 g/dL (32.0-36.0); MCV 77.1 fL (80-100); MPV 10.7 fL (7.6-11.3); Monocytes % 12.9 % (3.3-12.3); Neutrophils % 57.8 % (41.7-73.7); Nucleated Red Blood Cells % 0.1 % (0-0); Platelets 248 thou/uL (152-406); RBC Red Blood Cell Count 4.89 M/uL (3.86-4.86)
[2023-05-30 09:43] LABS: Albumin 3.7 g/dL (3.4-5.0); Albumin/Globulin Ratio 1.1 (1.1-1.8); Anion Gap 9.3 mEq/L (5.0-15.0); Bilirubin Total 0.7 mg/dL (0.2-1.0); Globulin 3.4 g/dL (2.3-3.5); Potassium 3.3 mEq/L (3.5-5.1); Protein, Total 7.1 g/dL (6.4-8.2)
--- NOTE | 2023-05-30 10:16 | ER ---
Nurse's Notes [facility] Name: Efrem Pastor Age: 33 yrs Sex: Female : 1990 Arrival Date: 05/30/2023 Time: 08:06 Bed 2 Private MD: Diagnosis: Nausea with vomiting, unspecified;Gastroparesis Presentation: 05/29 08:15 Chief complaint: Patient states: N/V/D, abdominal pain for 4 days. Coronavirus screen: ll1 Client denies travel out of the [place] in the last 14 days. diarrhea, fatigue, nausea, vomiting. At this time, the client does not indicate any symptoms associated with coronavirus-19. Ebola Screen: Patient denies travel to an Ebola-affected area in the 21 days before illness onset. Initial Sepsis Screen: Does the patient meet any 2 criteria? No. Patient's initial sepsis screen is negative. Does the patient have a suspected source of infection? No. Patient's initial sepsis screen is negative. Risk Assessment: Do you want to hurt yourself or someone else? Patient reports no desire to harm self or others. Onset of symptoms was May 27, 2023. 08:15 Method Of Arrival: Ambulatory ll1 08:15 Acuity: BELINDA 3 ll1 Triage Assessment: 08:17 General: Appears distressed, uncomfortable, ill, Behavior is calm, cooperative, ll1 appropriate for age. Pain: Complains of pain in abdomen Pain currently is 9 out of 10 on a pain scale. Quality of pain is described as aching, crampy. Neuro: No deficits noted. Cardiovascular: No deficits noted. GI: Reports lower abdominal pain, upper abdominal pain, cramping, diarrhea, intolerance of fluids, intolerance of food, nausea, vomiting. Historical: - Allergies: 08:10 Haldol; ll1 08:10 Scopolamine HBr; ll1 - PMHx: 08:10 Acute cutaneous nerve entrapment syndrome; ACNE (Unknown); Anxiety; Gastroparesis; ll1 Irritable bowel syndrome; neuropathy; PTSD; - PSHx: 08:10 bilateral ureter attachment; Cholecystectomy; leep procedure; Lumpectomy of breast; ll1 right breast; - Immunization history:: Adult Immunizations up to date. - Infectious Disease History:: Denies. - Social history:: Smoking status: Reported history of juuling and/or vaping. - Family history:: not pertinent. Screenin:02 [facility] ED Fall Risk Assessment (Adult) History of falling in the last 3 months, ph including since admission No falls in past 3 months (0 pts) Confusion or Disorientation No (0 pts) Intoxicated or Sedated No (0 pts) Impaired Gait No (0 pts) Mobility Assist Device Used No (0 pt) Altered Elimination No (0 pt) Score/Fall Risk Level 0 - 2 = Low Risk Oriented to surroundings, Maintained a safe environment, Hourly rounding (assess needs \T\ fall precautionary measures) done. Abuse screen: Denies threats or abuse. Denies injuries from another. Nutritional screening: No deficits noted. Tuberculosis screening: No symptoms or risk factors identified. Assessment: 09:02 General: Appears in no apparent distress. uncomfortable, Behavior is calm, cooperative, ph Denies fever. Pain: Complains of pain in abdomen. Neuro: Level of Consciousness is awake, alert, obeys commands, Oriented to person, place, time, situation. Cardiovascular: Capillary refill < 3 seconds in bilateral fingers Patient's skin is warm and dry. Respiratory: Airway is patent Respiratory effort is even, unlabored. GI: Abdomen is non-distended, Reports lower abdominal pain, upper abdominal pain, nausea, vomiting. Derm: Skin is pale. Musculoskeletal: Circulation, motion, and sensation intact. Range of motion: intact in all extremities. 09:46 Reassessment: Patient appears in no apparent distress at this time. Patient and/or ph family updated on plan of care and expected duration. Pain level reassessed. Patient is alert, oriented x 3, equal unlabored respirations, skin warm/dry/pink. Vital Signs: 08:15 BP 170 / 109; Pulse 84; Resp 17; Temp 97.8; Pulse Ox 98% ; Weight 63.5 kg; Height 5 ft. ll1 2 in. ; Pain 9/10; 09:46 BP 168 / 92; Pulse 91; Resp 18; Pulse Ox 99% on R/A; ph 10:37 BP 165 / 89; Pulse 89; Resp 18; Temp 97.8; Pulse Ox 99% on R/A; ph 08:15 Body Mass Index 25.61 (63.50 kg, 157.48 cm) [facility] 08:15 Pain Scale: Adult ll1 ED Course: 08:08 Patient arrived in ED. ra3 08:09 Brayan Terrell MD is Attending Physician. rt 08:10 Arm band placed on Patient placed in an exam room, on a stretcher. ll1 08:12 Ernestine Gillespie, RN is Primary Nurse. ph 08:17 Triage completed. ll1 09:01 Initial lab(s) drawn, by me, sent to lab. Inserted saline lock: 22 gauge in left ph forearm, using aseptic technique. Blood collected. 09:06 Test, Serum Sent. ph 09:06 Lipase Sent. ph 09:06 CMP Sent. ph 09:06 CBC with Diff Sent. ph 09:07 Patient has correct armband on for positive identification. Bed in low position. Call ph light in reach. Side rails up X2. 10:15 Luis Wen MD is Referral Physician. rt 10:36 No provider procedures requiring assistance completed. IV discontinued, intact, ph bleeding controlled, No redness/swelling at site. Pressure dressing applied. Administered Medications: 09:03 Drug: Dicyclomine IM 20 mg IM once Route: IM; Site: left deltoid; ph 10:35 Follow up: Response: No adverse reaction ph 09:05 Drug: NS 0.9% IV 1000 ml IV at 1 bolus Per protocol; 1000 mL bolus Route: IV; Rate: 1 ph bolus; Site: left forearm; 10:34 Follow up: Response: No adverse reaction; IV Status: Completed infusion; IV Intake: ph 1000ml 09:05 Drug: Ketorolac IVP 15 mg IVP once Route: IVP; Site: left forearm; ph 10:35 Follow up: Response: No adverse reaction ph 09:05 Drug: Promethazine IVP 12.5 mg IVP once Route: IVP; Site: left forearm; ph 10:35 Follow up: Response: No adverse reaction ph 09:06 Drug: metoCLOPramide IVP 10 mg IVP once; over 1 to 2 minutes Route: IVP; Site: left ph forearm; 10:34 Follow up: Response: No adverse reaction ph 09:06 Drug: diphenhydrAMINE IVP 25 mg IVP once Route: IVP; Site: left forearm; ph 10:34 Follow up: Response: No adverse reaction ph 10:34 Drug: Promethazine IVP 12.5 mg IVP once Route: IVP; Site: left forearm; ph 10:35 Follow up: Response: No adverse reaction ph Medication: 08:12 VIS not applicable for this client. ph Intake: 10:34 IV: 1000ml; Total: 1000ml. ph Outcome: 10:15 Discharge ordered by . rt 10:36 Discharged to home via wheelchair, with significant other, ph 10:36 Condition: good 10:36 Discharge instructions given to patient, family, Instructed on discharge instructions, follow up and referral plans. medication usage, Demonstrated understanding of instructions, follow-up care, medications, Prescriptions given X 1, 10:37 Patient left the ED. ph Signatures: Ernestine Gillespie, RN RN Andre Goldman RN RN ll1 Brayan Terrell MD MD rt Alva, Ruby 3
--- NOTE | 2023-05-30 10:16 | EDPHYS ---
Physician Documentation [facility] Name: Efrem Pastor Age: 33 yrs Sex: Female : 1990 Arrival Date: 05/30/2023 Time: 08:06 Bed 2 Private MD: ED Physician Brayan Terrell HPI: 05/29 08:36 This 33 yrs old Female presents to ER via Ambulatory with complaints of Nausea/Vomiting.rt 08:36 Patient with multiple visits for gastroparesis with nausea vomiting presents to the ED rt with nausea, vomiting, generalized abdominal pain for the past several days. Been seen in the ED multiple times for this. She denies other acute complaints at this time, symptoms are moderate in severity, no other aggravating or alleviating factors.. Historical: - Allergies: 08:10 Haldol; ll1 08:10 Scopolamine HBr; ll1 - PMHx: 08:10 Acute cutaneous nerve entrapment syndrome; ACNE (Unknown); Anxiety; Gastroparesis; ll1 Irritable bowel syndrome; neuropathy; PTSD; - PSHx: 08:10 bilateral ureter attachment; Cholecystectomy; leep procedure; Lumpectomy of breast; ll1 right breast; - Immunization history:: Adult Immunizations up to date. - Infectious Disease History:: Denies. - Social history:: Smoking status: Reported history of juuling and/or vaping. - Family history:: not pertinent. ROS: 08:36 Constitutional: Negative for fever, chills, and weight loss, Cardiovascular: Negative rt for chest pain, palpitations, and edema, Respiratory: Negative for shortness of breath, cough, wheezing, and pleuritic chest pain, MS/Extremity: Negative for injury and deformity, Skin: Negative for injury, rash, and discoloration, Neuro: Negative for headache, weakness, numbness, tingling, and seizure, Psych: Negative for depression, anxiety, suicide ideation, homicidal ideation, and hallucinations, 08:36 Abdomen/GI: Positive for abdominal pain, nausea and vomiting, Exam: 08:36 Constitutional: This is a well developed, well nourished patient who is awake, alert, rt and in no acute distress. Head/Face: Normocephalic, atraumatic. Chest/axilla: Normal chest wall appearance and motion. Nontender with no deformity. No lesions are appreciated. Cardiovascular: Regular rate and rhythm with a normal S1 and S2. No gallops, murmurs, or rubs. Normal PMI, no JVD. No pulse deficits. Respiratory: Lungs have equal breath sounds bilaterally, clear to auscultation and percussion. No rales, rhonchi or wheezes noted. No increased work of breathing, no retractions or nasal flaring. Skin: Warm, dry with normal turgor. Normal color with no rashes, no lesions, and no evidence of cellulitis. MS/ Extremity: Pulses equal, no cyanosis. Neurovascular intact. Full, normal range of motion. Neuro: Awake and alert, GCS 15, oriented to person, place, time, and situation. Cranial nerves II-XII grossly intact. Motor strength 5/5 in all extremities. Sensory grossly intact. Cerebellar exam normal. Normal gait. 08:36 Abdomen/GI: Mild tenderness diffusely without rebound, guarding, distention, Vital Signs: 08:15 BP 170 / 109; Pulse 84; Resp 17; Temp 97.8; Pulse Ox 98% ; Weight 63.5 kg; Height 5 ft. ll1 2 in. ; Pain 9/10; 09:46 BP 168 / 92; Pulse 91; Resp 18; Pulse Ox 99% on R/A; ph 10:37 BP 165 / 89; Pulse 89; Resp 18; Temp 97.8; Pulse Ox 99% on R/A; ph 08:15 Body Mass Index 25.61 (63.50 kg, 157.48 cm) ll1 08:15 Pain Scale: Adult ll1 MDM: 08:16 Patient medically screened. rt 10:34 Differential diagnosis: Gastroparesis, electrolyte disturbance. Data reviewed: vital rt signs, nurses notes, lab test result(s). I considered the following discharge prescriptions or medication management in the emergency department Medications were administered in the Emergency Department. See MAR. Test considered but Not performed: CT: Patient with multiple CT scans, this is an exacerbation of a chronic issue, will spare patient radiation.. Care significantly affected by the following chronic conditions: Gastroparesis. Counseling: I had a detailed discussion with the patient and/or guardian regarding the historical points, exam findings, and any diagnostic results supporting the discharge/admit diagnosis, lab results, the need for outpatient follow up, to return to the emergency department if symptoms worsen or persist or if there are any questions or concerns that arise at home. Response to treatment: the patient's symptoms have markedly improved after treatment. Special discussion: I discussed with the patient/guardian in detail that at this point there is no indication for admission to the hospital. It is understood, however, that if the symptoms persist or worsen the patient needs to return immediately for re-evaluation. ED course: Discussed with patient rationale for not using opiates at this time.. 05/29 08:22 Order name: CBC with Diff; Complete Time: 09:37 rt 05/29 08:22 Order name: CMP; Complete Time: 09:50 rt 05/29 08:22 Order name: Lipase; Complete Time: 09:50 rt 05/29 08:22 Order name: Test, Serum; Complete Time: 09:50 rt Administered Medications: 09:03 Drug: Dicyclomine IM 20 mg IM once Route: IM; Site: left deltoid; ph 10:35 Follow up: Response: No adverse reaction ph 09:05 Drug: NS 0.9% IV 1000 ml IV at 1 bolus Per protocol; 1000 mL bolus Route: IV; Rate: 1 ph bolus; Site: left forearm; 10:34 Follow up: Response: No adverse reaction; IV Status: Completed infusion; IV Intake: ph 1000ml 09:05 Drug: Ketorolac IVP 15 mg IVP once Route: IVP; Site: left forearm; ph 10:35 Follow up: Response: No adverse reaction ph 09:05 Drug: Promethazine IVP 12.5 mg IVP once Route: IVP; Site: left forearm; ph 10:35 Follow up: Response: No adverse reaction ph 09:06 Drug: metoCLOPramide IVP 10 mg IVP once; over 1 to 2 minutes Route: IVP; Site: left ph forearm; 10:34 Follow up: Response: No adverse reaction ph 09:06 Drug: diphenhydrAMINE IVP 25 mg IVP once Route: IVP; Site: left forearm; ph 10:34 Follow up: Response: No adverse reaction ph 10:34 Drug: Promethazine IVP 12.5 mg IVP once Route: IVP; Site: left forearm; ph 10:35 Follow up: Response: No adverse reaction ph Disposition Summary: 05/30/23 10:15 Discharge Ordered Notes: Location: Home rt Problem: an acute exacerbation rt Symptoms: have improved rt Condition: Stable rt Diagnosis - Nausea with vomiting, unspecified rt - Gastroparesis rt Followup: rt - With: Luis Wen MD - When: 5 - 6 days - Reason: Discharge Instructions: - Discharge Summary Sheet rt - Nausea and Vomiting, Adult rt - Gastroparesis rt Forms: - Medication Reconciliation Form rt - Thank You Letter rt - Antibiotic Education rt - Prescription Opioid Use rt - Patient Portal Instructions rt - Leadership Thank You Letter rt Prescriptions: - promethazine 25 mg Oral tablet - take 1 tablet ORAL route every 6 hours As needed; 30 tablet; Refills: 0, rt Product Selection Permitted Signatures: Dispatcher [employer] EDMS Ernestine Gillespie, RN RN Andre Goldman RN RN ll1 Brayan Terrell MD MD rt Corrections: (The following items were deleted from the chart) 08:22 08:22 CBC+H.LAB.BRZ ordered. EDMS EDMS 08:22 08:22 COMPREHENSIVE METABOLIC PANEL+C.LAB.BRZ ordered. EDMS EDMS 08:22 08:22 LIPASE+C.LAB.BRZ ordered. EDMS EDMS 08:22 08:22 TEST, SERUM+SC.LAB.BRZ ordered. EDMS EDMS
[2023-05-30 11:06] VITALS: BP 165/89; TEMP 97.8; O2SAT 99
== END 2023-05-30 10:37 | disposition home or self-care (01) ==
LOC: ER 08:06
DX: K31.84 Gastroparesis (principal)
CPT/HCPCS: 36415; 80053; 83690; 84703; 85025; 96361; 96372; 96374; 96375; 99284; J0500; J1200; J2550; J2765; J7030

== ENCOUNTER 2023-05-30 19:46 | Emergency (ER) | payer SELFPAY ==
--- OUTSIDE RECORDS SUMMARY | 2023-05-30 19:48 | XMS REPORT | Continuity of Care Document ---
Author Name Unknown Address [address] [facility] [address] [place] [address] [facility] thconnect Address [address] [facility]. [address] [place] [address] Care Team Providers Care Grappler Name Role Phone CAIT BRAGG Attending Clinician Unavailable Payers Payer Name Policy Type Policy Number Effective Date Expirati on Date Source [facility] BLUE ADVANTAGE HMO/PLUS [id number] 2022 00:00:00 2023 00:00:00 Allergies, Adverse Reactions, Alerts Allergy Name Allergy Type Status Severity Reaction(s) Onset Date Inactive Date Treating Clinician Comments Source scopolam ine DA Active DC 05-19 00:00: 00 [facility] scopolam ine DA Active DC RASH-HIVES 05-19 00:00: 00 [facility] Encounters Start Date/Time End Date/Time Encounter Type Admission Type Attending Clinicians Care Facility Care Department Encounter ID Source 2020-05-19 11:42:02 Inpatient HCARG HCARG [id number] [facility] 2023-05-04 11:00:00 2023-05-04 11:00:00 Outpatient CAIT BRAGG [facility] [id number] [facility] Results Test Description Test Time Test Comments Results Result Co mments Source UA ICTOTEST FOR [id number] 13:00:00* Test Item Value Reference Range Interpretation Comme nts UA ICTOTEST FOR BILIRUBIN (t est code = ICTOU) POSITIVE NEGATIVE A UA [id number] 13:00:00* Test Item Value Reference Range Interpretation Comme nts UA WBC (test code = WBCU) 0-2 #/hpf 0-5 UA RBC (test code = RBCU) 3-5 #/hpf 0-5 UA EPITHELIAL CELLS (test co de = EPIU) FEW /hpf NEG,FEW UA BACTERIA (test code = BACU) FEW /hpf NEGATIVE A UA MUCUS (test code = MUCU) 1+ /hpf NEG,FEW A UR HCG [id number] 13:00:00* Test Item Value Reference Range Interpretation Comme nts UR HCG QUAL (test code = HCGQLU) NEGATIVE NEGATIVE DRUGS OF ABUSE [id number] 12:57:00* Test Item Value Reference Range Interpretation [...] 300 NG/MLPHENCYCLIDINE 25 NG/ML URINALYSIS W REFLEX [id number] 12:56:00* Test Item Value Reference Range Interpretation [...] Y= DO UA MICRO UA ICTOTEST FOR [id number] 12:56:00* Test Item Value Reference Range Interpretation Comme nts UA ICTOTEST FOR BILIRUBIN (t est code = ICTOU) POSITIVE NEGATIVE A UR HCG [id number] 12:56:00* Test Item Value Reference Range Interpretation Comme nts UR HCG QUAL (test code = HCGQLU) NEGATIVE NEGATIVE URINALYSIS W REFLEX [id number] 12:53:00* Test Item Value Reference Range Interpretation [...] N UA BLOOD DIPSTICK (test code = NSISA) TRACE /UL NEGATIVE UA PH DIPSTICK (test [...] UAMICRO) Y= DO UA MICRO UR HCG [id number] 12:53:00* Test Item Value Reference Range Interpretation Comme nts UR HCG QUAL (test code = HCGQLU) NEGATIVE NEGATIVE URINALYSIS W REFLEX [id number] 12:53:00* Test Item Value Reference Range Interpretation [...] UAMICRO) Y= DO UA MICRO UR HCG [id number] 12:53:00* Test Item Value Reference Range Interpretation Comme nts UR HCG QUAL (test code = HCGQLU) NEGATIVE NEGATIVE - XR ABDOMEN [id number] 12:16:00 [facility]: BREANNA QUEEN : 1990 Sex: F FAX: Sawyer Centeno II [place]: St: PRE Name: BREANNA QUEEN FSED : 1990 Age/S: 30/F [address] #: [id number] Loc: [place] [address] Phys: Sawyer Centeno II, MD Acct: [id number] Dis Date: Status: PRE ER PHONE #: Exam Date: 05/19/2020 1212 FAX #: Reason: abdominal pain EXAMS: CPT CODE: [id number] XR ABDOMEN 2V 45890 - XR ABDOMEN 2V PROVIDED REASON FOR [...] RT Bekah (Gretta) CT Trnscrd Date/Time/By: 05/19/2020 (9576) : By: [email or web address] Orig Print D/T: S: 05/19/2020 (4161) PAGE 1 Signed ReportBASIC METABOLIC PANEL 2020-05-19 [...] = GFR) > 60.00 See_Comment Reporting units: mL/min/1.73m\S\2 (Modified MDRD formula)REFERENCE RANGE: > or = 60 ml/min/1.73M2IF PATIENT IS -KENYAN, MULTIPLY REPORTED RESULT BY1.21. [Automated message] The system which generated this result transmitted reference range: >=60. The reference range was not used to interpret this result as normal/abnormal. CREATININE (test code = CREAT) 0.64 mg/dl 0.55-1.02 N CALCIUM (test code = CA) 9.8 mg/dL 8.5-10.1 N LIVER [id number] 12:08:00* Test Item Value Reference Range Interpretation [...] code = ALKP) 119 U/L 45-117 H [id number] 12:08:00* Test Item Value Reference Range Interpretation Comme nts LIPASE (test code = LIP) 67 U/L 73-393 L CBC W/AUTO [id number] 11:43:00* Test Item Value Reference Range Interpretation [...] (andrew t code = RBCM) NO NORMAL Notes Date/Time Note Provider Source 2020-05-19 12:11:00 [id number] 1:00 [facility] ([facility])EMERGENCY PROVIDER REPORTREPORT#:[id number] REPORT STATUS: SignedDATE:05/19/20 TIME: 1211 PATIENT: BREANNA QUEEN UNIT #: [id number]#: [id number] ROOM/BED:AGE: 30 SEX: F PCP PHYS: Brayan Winn MDSERVICE AUTHOR: Sawyer Centeno II, MD * ALL edits or amendments must be made on the electronic/computer document * HPI-Abd Pain F Under 40 Free Text HPI NotesFree Text HPI NotesThe patient tells me she has a history of gastroparesis but is not a diabetic. She tells me that she is from [facility] and that she has GI specialist in [facility] whose name is Dr. Hendrix. She tells me she used to get Botox injections in her pilorus to treat her pain. She tells me she went to a local hospital yesterday and got several medications for pain but the pain did not getany better. GeneralConfirmed Patient YesInitial Greet Date/Time 05/19/20 1129[facility] PresentationChief Complaint Abdominal painHx Obtained From PatientSudden [...] pH (4.6 - 8.0) 6.0 Ur Specific [place] (1.001 - 1.035) >= 1.030 Urine Protein [...] (Auto) (16 - 50 %) 9.5 L [place] % (Auto) (0.0 - 13.0 %) 4.3 [...] NO Recent Impressions:RADIOLOGY - XR ABDOMEN 2V 05/20 1211 Report Impression - Status: SIGNED Entered: 05/19/20209 IMPRESSION:No acute process. Location: [id number] By: Emily CABALLERO M.D. Imaging StatementRadiographic studies [...] 1,000 ML X1ED STA 05/19 1212 DC /10 IV 05/19 1311 1239 Gastrointestinal Drugs Sig/Ayanna Start time Last Medication Dose Route Stop Time Status Admin Metoclopramide HCl 5 MG X1ED STA 05/19 1212 DC / IV 05/19 1213 1240 Patient Discharge Departure Vital Signs/ConditionVital SignsFirst Documented: Result Date Time Pulse Ox 98 04/10 1128 B/P 158/101 04/10 1128 B/P Mean 120 04/10 1128 Temp 36.9 04/10 1128 Pulse 84 04/10 1128 Resp 18 04/10 1128 Last Documented: Result Date Time Pulse Ox 98 04/10 1128 B/P 158/101 04/10 1128 B/P Mean 120 04/10 1128 Temp 36.9 04/10 1128 Pulse 84 04/10 1128 Resp 18 04/10 1128 All vital signs available at the [...] HTN F/u with PCP/other doc at 1708RPT #:[id number] OF REPORTEDEmeconfluence health department [id number]:11:[id number] ilable for patient [id number]:08:49 [facility]
[2023-05-30] MEDS ORDERED: ONDANSETRON 4 MG/2 ML VIAL ONE (20:30)
[2023-05-30] MEDS ORDERED: KETOROLAC 30 MG/ML INJ ONE (20:30)
[2023-05-30] MEDS ORDERED: DIPHENHYDRAMINE 50 MG/ML VIAL ONE (20:30)
[2023-05-30] MEDS ORDERED: MORPHINE 4 MG/ML SYR ONE (20:31)
[2023-05-30] MEDS ORDERED: NA CHLORIDE 0.9% 1,000 ML ONE ×2 (20:31→22:00)
[2023-05-30] MEDS ORDERED: FAMOTIDINE 20 MG/2 ML VIAL IV ONE (20:31)
[2023-05-30] MEDS ORDERED: METOCLOPRAMIDE 10 MG/2mL INJ ONE (22:00)
[2023-05-30 22:10] LABS: Absolute Lymphocytes (CBC) 0.6 K/uL (0.7-4.9); Absolute Monocytes 0.3 K/uL (0.1-1.3); Absolute Neutrophil 3.4 K/uL (1.8-8.0); Basophils % 0.5 % (0-1.3); Hematocrit 34.5 % (36.0-45.0); Hemoglobin 11.2 g/dL (12.0-15.0); MCH 25.4 pg (27.0-35.0); MCHC 32.6 g/dL (32.0-36.0); MCV 77.8 fL (80-100); MPV 11.2 fL (7.6-11.3); Monocytes % 6.2 % (3.3-12.3); Neutrophils % 79.3 % (41.7-73.7); Nucleated Red Blood Cells % 0.1 % (0-0); Platelets 209 thou/uL (152-406); RBC Red Blood Cell Count 4.43 M/uL (3.86-4.86)
[2023-05-30 22:17] LABS: Specific Gravity 1.016 (1.005-1.030)
[2023-05-30 22:26] LABS: Albumin 3.2 g/dL (3.4-5.0); Anion Gap 10.4 mEq/L (5.0-15.0); Bilirubin Total 0.5 mg/dL (0.2-1.0); C-Reactive Protein 7.31 mg/L (<3.00); Globulin 3.1 g/dL (2.3-3.5); Potassium 3.4 mEq/L (3.5-5.1); Protein, Total 6.3 g/dL (6.4-8.2)
[2023-05-30 22:32] LABS: Specific Gravity 1.016 (1.005-1.030); Sqamous Epithelial <5 /HPF (None Seen); Urine Bacteria None Seen /HPF (<20); Urine Bilirubin NEGATIVE (Negative); Urine Blood 2+ (Negative); Urine Clarity Clear (Clear); Urine Color Light-Yellow (Yellow); Urine Culture Reflex Order NOT NEEDED; Urine Glucose NEGATIVE (Negative); Urine Ketones 3+ (Negative); Urine Micro Reflex YN NO BILL MICROSCOPIC; Urine Mucus 1+ /HPF (None Seen); Urine Nitrite NEGATIVE (Negative); Urine Protein NEGATIVE (Negative); Urine Urobilinogen Normal (Normal); Urine WBC <5 /HPF (<5)
--- NOTE | 2023-05-31 01:04 | ER ---
Nurse's Notes [facility] Name: Efrem Pastor Age: 33 yrs Sex: Female : 1990 Arrival Date: 05/30/2023 Time: 19:46 Bed 17 Private MD: Diagnosis: Nausea with vomiting, unspecified;Persistent headaches,;Hypokalemia Presentation: 05/29 19:49 Chief complaint: Patient states: Pt c/o nausea, vomiting, and diffuse abdominal pain x tl4 4 days. Pt has been treated in this ED and [facility] without any relief of symptoms after she leaves the ED. Coronavirus screen: At this time, the client does not indicate any symptoms associated with coronavirus-19. Ebola Screen: No symptoms or risks identified at this time. Initial Sepsis Screen: Does the patient meet any 2 criteria? No. Patient's initial sepsis screen is negative. Does the patient have a suspected source of infection? No. Patient's initial sepsis screen is negative. Risk Assessment: Do you want to hurt yourself or someone else? Patient reports no desire to harm self or others. Onset of symptoms was May 26, 2023. 19:49 Method Of Arrival: EMS: [facility] tl4 19:49 Acuity: BELINDA 3 tl4 Triage Assessment: 19:55 General: Appears in no apparent distress. Behavior is cooperative. Pain: Complains of tl4 pain in abdomen. EENT: No signs and/or symptoms were reported regarding the EENT system. Neuro: Level of Consciousness is awake, alert, obeys commands, Oriented to person, place, time, situation, Moves all extremities. Gait is steady, Speech is normal. Cardiovascular: Capillary refill < 3 seconds Patient's skin is warm and dry. Respiratory: Airway is patent Respiratory effort is even, unlabored, Respiratory pattern is regular, symmetrical, Breath sounds are clear bilaterally. GI: Reports nausea, vomiting. : No signs and/or symptoms were reported regarding the genitourinary system. Derm: No signs and/or symptoms reported regarding the dermatologic system. Musculoskeletal: No signs and/or symptoms reported regarding the musculoskeletal system. 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 LMP N/A - control method, Not tl4 Historical: - Allergies: 19:54 Haldol; tl4 19:54 Scopolamine HBr; tl4 - Home Meds: 19:54 Compazine 5 mg Oral tablet 1 tab [Active]; meloxicam 15 mg Oral tablet 1 tab [Active]; tl4 paroxetine HCl 40 mg Oral tablet 1 tab daily [Active]; Tylenol #4 Oral [Active]; Protonix 40 mg Oral tablet 1 tab daily [Active]; - PMHx: 19:54 Acute cutaneous nerve entrapment syndrome; ACNE (Unknown); Anxiety; Gastroparesis; tl4 Irritable bowel syndrome; neuropathy; PTSD; - PSHx: 19:54 bilateral ureter attachment; Cholecystectomy; leep procedure; Lumpectomy of breast; tl4 right breast; - Immunization history:: Adult Immunizations unknown. - Infectious Disease History:: Denies. - Social history:: Smoking status: Reported history of juuling and/or vaping. Patient uses "legal CBD", Patient/guardian denies using alcohol, street drugs. - Family history:: not pertinent. Screenin:02 [facility] ED Fall Risk Assessment (Adult) History of falling in the last 3 months, tl4 including since admission No falls in past 3 months (0 pts) Confusion or Disorientation No (0 pts) Intoxicated or Sedated No (0 pts) Impaired Gait No (0 pts) Mobility Assist Device Used No (0 pt) Altered Elimination No (0 pt) Score/Fall Risk Level 0 - 2 = Low Risk Oriented to surroundings, Maintained a safe environment, Educated pt \\T\\ family on fall prevention, incl call for assistance when getting out of bed, Assessed \\T\\ reinforced patient's understanding of fall precautions, Hourly rounding (assess needs \\T\\ fall precautionary measures) done, Used ambulatory aids as needed (educated on \\T\\ assisted with), Used gait belt as appropriate. Abuse screen: Denies threats or abuse. Denies injuries from another. Nutritional screening: No deficits noted. Tuberculosis screening: No symptoms or risk factors identified. Assessment: 21:00 Reassessment: No changes from previously documented assessment. Patient and/or family tl4 updated on plan of care and expected duration. Pain level reassessed. Patient is alert, oriented x 3, equal unlabored respirations, skin warm/dry/pink. GI: Reports lower abdominal pain, upper abdominal pain, nausea, vomiting. 22:11 Reassessment: No changes from previously documented assessment. Patient and/or family tl4 updated on plan of care and expected duration. Pain level reassessed. Patient is alert, oriented x 3, equal unlabored respirations, skin warm/dry/pink. 23:11 Reassessment: Patient and/or family updated on plan of care and expected duration. Pain tl4 level reassessed. Patient is alert, oriented x 3, equal unlabored respirations, skin warm/dry/pink. Vital Signs: 19:49 BP 139 / 91; Pulse 68; Resp 16; Temp 98.8(O); Pulse Ox 100% ; Weight 63.5 kg; Height 5 tl4 ft. 2 in. ; Pain 10/10; 20:00 BP 131 / 92; Pulse 71; Resp 15; Pulse Ox 100% on R/A; tl4 20:30 BP 150 / 95; Pulse 86; Resp 16; Pulse Ox 99% on R/A; Pain 10/10; tl4 21:00 BP 140 / 98; Pulse 76; Resp 16; Pulse Ox 100% on R/A; tl4 21:00 BP 155 / 89; Pulse 78; Resp 18; Pulse Ox 100% ; Pain 9/10; tl4 23:11 BP 108 / 83; Pulse 74; Resp 16; Pulse Ox 100% on R/A; tl4 23:46 BP 154 / 94; Pulse 71; Resp 18; Pulse Ox 99% on R/A; Pain 9/10; tl4 19:49 Body Mass Index 25.61 (63.50 kg, 157.48 cm) tl4 19:49 Pain Scale: Adult tl4 20:30 Pain Scale: Adult tl4 21:00 Pain Scale: Adult tl4 23:46 Pain Scale: Adult tl4 [place] Coma Score: 05/30 22:12 Eye Response: spontaneous(4). Motor Response: obeys commands(6). Verbal Response: sp4 oriented(5). Total: 15. ED Course: 05/29 19:48 Patient arrived in ED. rv1 19:49 Dima Fortune, BRUCE is Primary Nurse. tl4 19:54 Triage completed. tl4 20:00 Arm band placed on right wrist. tl4 20:01 Mario Santo MD is Attending Physician. sp4 21:00 No provider procedures requiring assistance completed. Inserted saline lock: 22 gauge tl4 in right hand, using aseptic technique. 21:03 Patient has correct armband on for positive identification. Placed in gown. Bed in low tl4 position. Call light in reach. Side rails up X 1. Adult w/ patient. Provided Education on: ED process. Client placed on continuous cardiac and pulse oximetry monitoring. NIBP monitoring applied. Door closed. Noise minimized. Lights dimmed. Moved to private room. Warm blanket given. 21:56 CMP Sent. tl4 21:56 CBC with Diff Sent. tl4 21:56 Lipase Sent. tl4 21:56 CRP Sent. tl4 22:11 Test, Urine Sent. tl4 22:11 Urinalysis W/Microscopic Sent. tl4 05/30 00:20 Report given to BRUCE Yates. tl4 01:31 Trudy Mcnulty RN is Primary Nurse. vc1 01:31 IV discontinued, intact, bleeding controlled, No redness/swelling at site. Pressure vc1 dressing applied. Administered Medications: 05/29 21:03 Drug: NS 0.9% IV 1000 ml IV at 1 bolus Per protocol; 1000 mL bolus Route: IV; Rate: 1 tl4 bolus; Site: right hand; Delivery: Primary tubing; 21:04 Drug: Famotidine IVP 20 mg IVP once; dilute with 10 mL 0.9% NaCl; give over 2 minutes tl4 Route: IVP; Infused Over: 2 mins; Site: right hand; 21:45 Follow up: Response: No adverse reaction tl4 21:04 Drug: TORadol - Ketorolac IVP 15 mg IVP once Route: IVP; Site: right hand; tl4 21:46 Follow up: Response: No adverse reaction; Pain is decreased tl4 21:04 Drug: Ondansetron IVP 4 mg IVP once; over 2 minutes Route: IVP; Infused Over: 2 mins; tl4 Site: right hand; 21:46 Follow up: Response: No adverse reaction; Nausea is decreased tl4 21:05 Drug: morphine IVP or IV 8 mg IVP once over 4 mins Route: IVP; Infused Over: 4 mins; tl4 Site: right hand; 21:46 Follow up: Response: No adverse reaction; Pain is decreased tl4 21:05 Drug: diphenhydrAMINE IVP 25 mg IVP once Route: IVP; Infused Over: 2 mins; Site: right tl4 hand; 21:45 Follow up: Response: No adverse reaction tl4 22:10 Drug: NS 0.9% IV 1000 ml IV at 125 ml/hr continuous Route: IV; Rate: 125 ml/hr; Site: tl4 right hand; Delivery: Primary tubing; 05/30 01:29 Follow up: IV Status: Order to discontinue infusion; IV Intake: 375ml vc1 05/29 22:11 Drug: metoCLOPramide IVP 10 mg IVP once; over 1 to 2 minutes Route: IVP; Infused Over: tl4 2 mins; Site: right hand; 05/30 01:28 Drug: Clinton PO 10 mg-325 mg 1 tabs PO once Route: PO; vc1 :29 Follow up: Response: Medication administered at discharge. vc1 : Drug: Promethazine PO 25 mg PO once Route: PO; vc1 : Follow up: Response: Medication administered at discharge. vc1 : Drug: predniSONE PO 40 mg PO once Route: PO; vc1 : Follow up: Response: Medication administered at discharge. vc1 :28 Drug: Potassium Chloride PO 40 mEq PO once Route: PO; vc1 : Follow up: Response: Medication administered at discharge. vc1 Medication: 05/29 21:02 VIS not applicable for this client. tl4 Intake: 05/30 01:29 IV: 375ml; Total: 375ml. vc1 Outcome: 01:04 Discharge ordered by . sp4 01:31 Discharged to home ambulatory, with significant other, vc1 01:31 Condition: improved 01:31 Discharge instructions given to patient, Instructed on discharge instructions, follow up and referral plans. medication usage, Demonstrated understanding of instructions, follow-up care, medications, Prescriptions given X 1, 01:31 Patient left the ED. vc1 Signatures: Trudy Mcnulty RN RN vc1 Keeley Gaming rv1 Mario Santo MD MD sp4 Dima Fortnue RN RN tl4
--- NOTE | 2023-05-31 01:04 | EDPHYS ---
Physician Documentation [facility] Name: Efrem Pastor Age: 33 yrs Sex: Female : 1990 Arrival Date: 05/30/2023 Time: 19:46 Bed 17 Private MD: ED Physician Mario Santo HPI: 05/29 20:01 This 33 yrs old Female presents to ER via EMS with complaints of sp4 Nausea/Vomiting. 05/30 22:12 Patient presents with acute persistent and worsening headache, nausea or vomiting. sp4 Patient is familiar to me from prior visits for the same problem patient has history of moderate to severe headaches possibly migraines. . [employer]: 05/29 22:12 LMP N/A - control method, Not tl4 Historical: - Allergies: 19:54 Haldol; tl4 19:54 Scopolamine HBr; tl4 - Home Meds: 19:54 Compazine 5 mg Oral tablet 1 tab [Active]; meloxicam 15 mg Oral tablet 1 tab [Active]; tl4 paroxetine HCl 40 mg Oral tablet 1 tab daily [Active]; Tylenol #4 Oral [Active]; Protonix 40 mg Oral tablet 1 tab daily [Active]; - PMHx: 19:54 Acute cutaneous nerve entrapment syndrome; ACNE (Unknown); Anxiety; Gastroparesis; tl4 Irritable bowel syndrome; neuropathy; PTSD; - PSHx: 19:54 bilateral ureter attachment; Cholecystectomy; leep procedure; Lumpectomy of breast; tl4 right breast; - Immunization history:: Adult Immunizations unknown. - Infectious Disease History:: Denies. - Social history:: Smoking status: Reported history of juuling and/or vaping. Patient uses "legal CBD", Patient/guardian denies using alcohol, street drugs. - Family history:: not pertinent. ROS: 05/30 22:12 Constitutional: Negative for fever, chills, and weight loss, positive nausea vomiting sp4 and headache All other systems are negative, Exam: 22:12 Constitutional: This is a well developed, well nourished patient who is awake, alert, sp4 and in no acute distress. Head/Face: Normocephalic, atraumatic. Eyes: Pupils equal round and reactive to light, extra-ocular motions intact. Lids and lashes normal. Conjunctiva and sclera are not injected. Cornea within normal limits. Periorbital areas with no swelling, redness, or edema. ENT: Nares patent. No nasal discharge, no septal abnormalities noted. Tympanic membranes are normal and external auditory canals are clear. Oropharynx with no redness, swelling, or masses, exudates, or evidence of obstruction, uvula midline. Mucous membranes moist. Neck: Trachea midline, no thyromegaly or masses palpated, and no cervical lymphadenopathy. Supple, full range of motion without nuchal rigidity, or vertebral point tenderness. Chest/axilla: Normal chest wall appearance and motion. Nontender with no deformity. No lesions are appreciated. Cardiovascular: Regular rate and rhythm with a normal S1 and S2. No gallops, murmurs, or rubs. Normal PMI, no JVD. No pulse deficits. Respiratory: Lungs have equal breath sounds bilaterally, clear to auscultation and percussion. No rales, rhonchi or wheezes noted. No increased work of breathing, no retractions or nasal flaring. Abdomen/GI: Soft, with normal bowel sounds. No distension or tympany. No guarding or rebound. No evidence of tenderness throughout. Back: No spinal tenderness. No costovertebral tenderness. Skin: Warm, dry with normal turgor. Normal color with no rashes, no lesions, and no evidence of cellulitis. MS/ Extremity: Pulses equal, no cyanosis. Neurovascular intact. Full, normal range of motion. Neuro: Awake and alert, GCS 15, oriented to person, place, time, and situation. Cranial nerves II-XII grossly intact. Motor strength 5/5 in all extremities. Sensory grossly intact. Psych: Awake, alert, with orientation to person, place and time. Behavior, mood, and affect are within normal limits Vital Signs: 05/29 19:49 BP 139 / 91; Pulse 68; Resp 16; Temp 98.8(O); Pulse Ox 100% ; Weight 63.5 kg; Height 5 tl4 ft. 2 in. ; Pain 10/10; 20:00 BP 131 / 92; Pulse 71; Resp 15; Pulse Ox 100% on R/A; tl4 20:30 BP 150 / 95; Pulse 86; Resp 16; Pulse Ox 99% on R/A; Pain 10/10; tl4 21:00 BP 140 / 98; Pulse 76; Resp 16; Pulse Ox 100% on R/A; tl4 21:00 BP 155 / 89; Pulse 78; Resp 18; Pulse Ox 100% ; Pain 9/10; tl4 23:11 BP 108 / 83; Pulse 74; Resp 16; Pulse Ox 100% on R/A; tl4 23:46 BP 154 / 94; Pulse 71; Resp 18; Pulse Ox 99% on R/A; Pain 9/10; tl4 19:49 Body Mass Index 25.61 (63.50 kg, 157.48 cm) tl4 19:49 Pain Scale: Adult tl4 20:30 Pain Scale: Adult tl4 21:00 Pain Scale: Adult tl4 23:46 Pain Scale: Adult tl4 Feliz Coma Score: 05/30 22:12 Eye Response: spontaneous(4). Motor Response: obeys commands(6). Verbal Response: sp4 oriented(5). Total: 15. MDM: 05/29 20:02 Patient medically screened. sp4 05/30 22:12 Differential diagnosis: Nonspecific abd pain, gastritis, viral gastroenteritis, sp4 gastroenteritis. Data reviewed: vital signs, nurses notes, old medical records, lab test result(s), CBC, electrolytes, hepatic panel. 05/29 21:35 Order name: CBC with Diff; Complete Time: 00:59 sp4 05/29 21:35 Order name: CMP; Complete Time: 00:59 sp4 05/29 21:35 Order name: Urinalysis W/Microscopic; Complete Time: 00:59 sp4 05/29 21:35 Order name: Test, Urine; Complete Time: 00:59 sp4 05/29 21:35 Order name: CRP; Complete Time: 00:59 sp4 05/29 21:35 Order name: Lipase; Complete Time: 00:59 sp4 05/29 20:02 Order name: IV Saline Lock; Complete Time: 21:05 sp4 Administered Medications: 05/29 21:03 Drug: NS 0.9% IV 1000 ml IV at 1 bolus Per protocol; 1000 mL bolus Route: IV; Rate: 1 tl4 bolus; Site: right hand; Delivery: Primary tubing; 21:04 Drug: Famotidine IVP 20 mg IVP once; dilute with 10 mL 0.9% NaCl; give over 2 minutes tl4 Route: IVP; Infused Over: 2 mins; Site: right hand; 21:45 Follow up: Response: No adverse reaction tl4 21:04 Drug: TORadol - Ketorolac IVP 15 mg IVP once Route: IVP; Site: right hand; tl4 21:46 Follow up: Response: No adverse reaction; Pain is decreased tl4 21:04 Drug: Ondansetron IVP 4 mg IVP once; over 2 minutes Route: IVP; Infused Over: 2 mins; tl4 Site: right hand; 21:46 Follow up: Response: No adverse reaction; Nausea is decreased tl4 21:05 Drug: morphine IVP or IV 8 mg IVP once over 4 mins Route: IVP; Infused Over: 4 mins; tl4 Site: right hand; 21:46 Follow up: Response: No adverse reaction; Pain is decreased tl4 21:05 Drug: diphenhydrAMINE IVP 25 mg IVP once Route: IVP; Infused Over: 2 mins; Site: right tl4 hand; 21:45 Follow up: Response: No adverse reaction tl4 22:10 Drug: NS 0.9% IV 1000 ml IV at 125 ml/hr continuous Route: IV; Rate: 125 ml/hr; Site: tl4 right hand; Delivery: Primary tubing; 05/30 01:29 Follow up: IV Status: Order to discontinue infusion; IV Intake: 375ml 1 05/29 22:11 Drug: metoCLOPramide IVP 10 mg IVP once; over 1 to 2 minutes Route: IVP; Infused Over: tl4 2 mins; Site: right hand; 05/30 01:28 Drug: [place] PO 10 mg-325 mg 1 tabs PO once Route: PO; vc1 :29 Follow up: Response: Medication administered at discharge. vc1 01:28 Drug: Promethazine PO 25 mg PO once Route: PO; vc1 : Follow up: Response: Medication administered at discharge. vc1 :28 Drug: predniSONE PO 40 mg PO once Route: PO; vc1 : Follow up: Response: Medication administered at discharge. vc1 01:28 Drug: Potassium Chloride PO 40 mEq PO once Route: PO; vc1 :29 Follow up: Response: Medication administered at discharge. vc1 Disposition Summary: 05/31/23 01:04 Discharge Ordered Notes: Location: Home sp4 Problem: new sp4 Symptoms: have improved sp4 Condition: Stable sp4 Diagnosis - Nausea with vomiting, unspecified sp4 - Persistent headaches, sp4 - Hypokalemia sp4 Followup: sp4 - With: Private Physician - When: 7 - 10 days - Reason: Recheck today's complaints Discharge Instructions: - Discharge Summary Sheet sp4 - Nausea and Vomiting, Adult sp4 Forms: - Patient Portal Instructions sp4 Prescriptions: - promethazine 25 mg Oral tablet - take 1 tablet ORAL route every 6 hours As needed; 30 tablet; Refills: 0, sp4 Product Selection Permitted Signatures: Dispatcher [employer] EDMS Trudy Mcnulty RN RN vc1 Mario Santo MD MD sp4 Dima Fortune RN RN tl4 Corrections: (The following items were deleted from the chart) 05/29 21:05 20:02 Labs collected and sent ordered. sp4 tl4
[2023-05-31] MEDS ORDERED: PROMETHAZINE 25 MG TABLET ONE (01:12)
[2023-05-31] MEDS ORDERED: HYDROCODONE/APAP 10/325 TAB ONE (01:12)
[2023-05-31] MEDS ORDERED: POTASSIUM CL SA 10 MEQ TAB PO ONE (01:12)
[2023-05-31] MEDS ORDERED: predniSONE 20 MG TAB ONE (01:12)
[2023-05-31 01:45] VITALS: BP 154/94; TEMP 98.8; O2SAT 99
== END 2023-05-31 01:31 | disposition home or self-care (01) ==
LOC: ER 19:46
DX: R11.2 Nausea with vomiting, unspecified (principal); G44.89 Other headache syndrome; E87.6 Hypokalemia
CPT/HCPCS: 36415; 80053; 81001; 81025; 83690; 85025; 86140; 96361; 96374; 96375; 99285; J1200; J2405; J2765; J7030; J7512; Q0169

== ENCOUNTER 2023-06-01 01:33 | Emergency (ER) | payer BC, SELFPAY ==
--- OUTSIDE RECORDS SUMMARY | 2023-06-01 01:38 | XMS REPORT | Continuity of Care Document ---
Author Name Unknown Address [address] [facility]. [address] [place] [address] 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 Primary Care Physician Anselmo Caballero DO Attending Clinician [phone] GIOVANY HAGER Attending Clinician Unavailable CAIT BRAGG Attending Clinician Unavailable Jose Maki Attending Clinician Unavailable LAB90 Attending Clinician Unavailable Marylou Johnson NP Attending Clinician [phone] Ted Schultz Attending Clinician Unavailable Kaelyn Peguero Attending Clinician Unavailable Physician, No Primary or Family Admitting Clinic monse Unavailable UNDEFINED Admitting Clinician Unavailable Payers Payer Name Policy Type Policy Number Effective Date Expirati on Date Source [place] [id number] 2022 00:00:00 2023 00:00:00 BCBS 2 [id number] 2023 00:00:00 Problems Condition Name Condition Details [...] comments 2022-02- 00:00: 00 Dystonic reactions [facility] Scopolam ine Propensi ty to adverse reaction s Active Other - See comments 2022-02 00:00: 00 Visual changes [facility] HALOPERI DOL DRUG INGREDI Active Med Other-Cmnt 2022-02 00:00: 00 [facility] SCOPOLAM INE DRUG INGREDI Active Other-Cmnt 2022-02 00:00: 00 [facility] haloperi dol DA Active SV HIVES 06-11 00:00: 00 [facility] scopolam ine DA Active SV HIVES 06-11 00:00: 00 [facility] No Known Allergie s DA Active U 02-09 00:00: 00 [facility] No Known Allergie s DA Active U 06-24 00:00: 00 [facility] No Known Allergie s DA Active U 06-24 00:00: 00 [facility] scopolam ine DA Active RI -10 00:00: 00 [facility] scopolam ine DA Active RI RASH-ES 410 00:00: 00 [facility] No Known Allergie s DA Active U 07-29 00:00: 00 [facility] No Known Allergie s DA Active U 07-29 00:00: 00 [facility] No Known Drug Intolera nces DA Active U 10-24 00:00: 00 [facility] No Known Drug Intolera nces DA Active U NONE 10-24 00:00: 00 [facility] NO KNOWN ALLERGIE S Drug Class Active [facility] Social History Social Habit Start Date Stop Date Quantity Comments Source Sexual orientation Opal Enrique - External History of tobacco use Cigarette Smoker Laura Seyb old - External Alcohol intake 2023-02-24 00:00:00 2023-02-24 00:00:00 Ex-drinker (finding) Laura Enrique - External Tobacco use and exposure 2023-01-27 00:00:00 2023-01-27 00:00:00 Smokeless tobacco non-user Laura Enrique - External Education - What is the highest level of school you have completed or the highest degree you have received? 2023-01-27 00:00:00 2023-01-27 00:00:00 Associate degree: academic program Laura Enrique - Alin Cigarettes smoked current (pack per day) - Reported 2023-01-27 00:00:00 2023-01-27 00:00:00 Laura Enrique - External Cigarette pack-years 2023-01-27 00:00:00 2023-01-27 00:00:00 Laura Enrique - External History of Social function 2023-01-26 00:00:00 2023-01-26 00:00:00 Laura Enrique - External Sex Assigned At 1990 00:00:00 1990 00[birth year]00:00 Laura Enrique - External Smoking Status Start Date Stop Date Source Tobacco smoking consumption unknown [facility] Ex-smoker 2023-01-27 00:00:00 2023-01-27 00:00:00 Laura Enrique - External Medications Ordered Medication Name Filled Medication Name Start Date Stop Date Current Medication? Ordering Clinician Indication Dosage Frequency Signature (SIG) Comments Components Source proCHLORper azine (COMPAZINE) injection 10 mg 05-29 19:45: 00 05-29 19:10 :00 No 10mg 10 mg, Slow IV Push, ONCE, 1 dose, On 05/30/23 at 1445, [facility]ONN[facility] diphenhydrA MINE (BENADRYL) injection 50 mg 05-29 19:00: 00 05-29 19:11 :00 No 50mg 50 mg, Slow IV Push, ONCE, 1 dose, On 05/30/23 at 1400, STAT [facility] Brexpiprazo le (Rexulti) 2 MG oral Tablet 02-24 11:47: 34 Yes 2mg Take 2 mg by mouth daily. [facility] HYDROcodone -Acetaminop hen 10-325 MG oral Tablet 02-24 00:00: 00 Yes [id number] 1{tbl} Q.5D Take 1 tablet by mouth 2 times daily as needed for pain. Laura hall Methocarbam ol 500 MG oral Tablet 02-24 00:00: 00 Yes [id number] 500mg QD Take 1 tablet (500 mg total) by mouth nightly as needed (muscle spasm). [facility] hall Methocarbam ol 500 MG oral Tablet 02-17 00:00: 00 02-24 00:00 :00 No Laura hall Celecoxib 200 MG oral Capsule 02-17 00:00: 00 02-24 00:00 :00 No TAKE ONE (1) CAPSULE(S) BY MOUTH ONCE A DAY WITH FOOD. Laura [facility] Promethazin e HCl (PHENERGAN) 25 MG oral Tablet 02-12 00:00: 00 Yes [id number] 25mg QD Take 1 tablet (25 mg total) by mouth daily as needed for nausea. [facility] Valacyclovi r HCl (Valtrex) 500 MG oral Tablet 2022-02 00:00: 00 Yes [id number] 500mg Take 1 tablet (500 mg total) by mouth daily. [facility] Brexpiprazo le (Rexulti) 2 MG oral Tablet 2022-0218 14:15: 48 Yes 2mg Take 2 mg by mouth daily. [facility] predniSONE (DELTASONE) 20 MG oral tablet 2022-02- 00:00: 00 02-24 00:00 :00 No 20mg [...] dose, On Thu12/26/22 at 2030, 1 mL [facility] penicillin g benzathine (BICILLIN L-A) injection 1.2 Million Units 2022-02 01:45: 00 12-27 01:53 :00 No 1.210 1.2 Million Units, Intramuscu lar, ONCE, 1 dose, On Thu12/26/22 at 1945, RONNIE
Re ason for Anti-Infec tive: Empiric Therapy for Suspected Infection< br>Empiric Therapy Site: HEENT
D uration of therapy: Once (ED) [facility] acetaminoph en (TYLENOL) tablet 650 mg 2022-02 01:45: 00 12-27 01:50 :00 No 650mg 650 mg, Oral, ONCE, 1 dose, On Thu12/26/22 at 1945, [facility] ketorolac (TORADOL) injection 30 mg 2022-02 00:45: 00 12-27 00:59 :00 No 30mg 30 mg, Intramuscu lar, ONCE, 1 dose, On Thu12/26/22 at 1845, [facility]ONN[facility] hydrocortis one 1 mg/4 mL in nystatin suspension- diphenhydrA MINE solution suspension 2022-02 00:00: 00 12-30 05:59 :00 No [id number] 15mL Take 15 mL by mouth every 6 (six) hours as needed for Pain (scale 4-6) for up to 3 days. [facility] Famotidine (PEPCID) 20 MG oral tablet [...] Vital Name Observation Time Observation Value Comments Jose priest Systolic blood pressure 2023-05-30 20:00:00 145 mm[Hg] [facility] Diastolic blood pressure 2023-05-30 20:00:00 104 mm[Hg] [facility] Heart rate 2023-05-30 20:00:00 72 /min [facility] Respiratory rate 2023-05-30 20:00:00 17 /min [facility] Oxygen saturation in Arterial blood by Pulse oximetry 2023-05-30 20:00:00 99 /min [facility] Body temperature 2023-05-30 18:54:00 35.94 Caitlyn [facility] Body height 2023-05-30 18:54:[address] [facility] Body weight 2023-05-30 18:54:[address] [facility] BMI 2023-05-30 18:54:00 25.61 kg/m2 [facility] Body height 2023-02-24 17:40:00 157.5 cm Beatris ey Seybold - External Body weight 2023-02-24 17:40:00 70.818 kg Beatris ey Seybold - External BMI 2023-02-24 17:40:00 28.56 kg/m2 Beatris ey Seybold - External Systolic blood pressure 2023-02-24 17:40:00 110 mm[Hg] Laura Seybo ld - External Diastolic blood pressure 2023-02-24 17:40:00 62 mm[Hg] Laura Seybo ld - External Heart rate 2023-02-24 17:40:00 106 /min Kelse y Seybold - External Body temperature 2023-02-24 17:40:00 36.61 Caitlyn Laura Seybold - External Respiratory rate 2023-02-24 17:40:00 16 /min Laura Seybold - External Systolic blood pressure 2023-01-27 16:54:00 115 mm[Hg] Laura Seybo ld - External Diastolic blood pressure 2023-01-27 16:54:00 73 mm[Hg] Laura Seybo ld - External Heart rate 2023-01-27 16:54:00 116 /min Kelse y Seybold - External Body temperature 2023-01-27 16:54:00 37.78 Caitlyn Laura Seybold - External Body height 2023-01-27 16:54:00 157.5 cm Beatris ey Seybold - External Body weight 2023-01-27 16:54:00 65.227 kg Beatris ey Seybold - External BMI 2023-01-27 16:54:00 26.30 kg/m2 Beatris ey Seybold - External Systolic blood pressure 2022-12-27 02:16:00 111 mm[Hg] [facility] Diastolic blood pressure 2022-12-27 02:16:00 82 mm[Hg] [facility] Heart rate 2022-12-27 02:16:00 93 /min [facility] Body temperature 2022-12-27 02:16:00 37.56 Caitlyn [facility] Respiratory rate 2022-12-27 02:16:00 20 /min [facility] Oxygen saturation in Arterial blood by Pulse oximetry 2022-12-27 02:16:00 96 /min [place] [facility] Body height 2022-12-26 23:57:[address] [facility] Body weight 2022-12-26 23:57:[address] [facility] BMI 2022-12-26 23:57:00 23.78 kg/m2 [facility] Procedures Procedure Date / Time Performed Performing Clinicia n Source CBC WITH DIFF 2022-12-27 01:49:[address] [facility] RAPID STREP SCREEN FOR GROUP A 2022-12-27 00:59:00 Marylou Johnson [facility] NOTICE OF PRIVACY PRACTICES 2022-12-26 23:28:27 Doctor Unassigned, [place]ber[place] [facility] CONSENT/REFUSAL FOR DIAGNOSIS AND TREATMENT 2022-12-26 23:27:35 Doctor Unassigned, [place] Encounters Start Date/Time End Date/Time Encounter Type Admission Type Attending Clinicians Care Facility Care Department Encounter ID Source 2020-06-24 15:53:22 Inpatient [facility] [id number] [facility] 2020-05-19 11:42:02 Inpatient [facility] [id number] 19 [facility] 2019-07-30 21:08:00 Inpatient [facility] ER [id number] 2023-05-30 13:55:00 2023-05-30 15:41:00 Emergency Anselmo Caballero [facility] [id number] [facility] 2023-05-04 14:30:00 2023-05-04 14:30:00 Outpatient PREZAS, GIOVANY PIZANO LAURA [id number] [facility] 2023-05-04 11:15:00 2023-05-04 11:15:00 Outpatient PREZAS, GIOVANY PIZANO LAURA [id number] Laura [facility] 2023-05-04 11:00:00 2023-05-04 11:00:00 Outpatient LOUISE BRAGGR [facility] [id number] [facility] 2023-04-22 00:00:00 2023-04-22 00:00:00 Outpatient PREZAS, GIOVANY DIALLOHUMPHREY PIZANO [id number] [facility] 2023-04-14 02:00:00 2023-04-14 03:25:00 Emergency EM MakiJose [facility] [id number] [facility] 2023-04-10 00:00:00 2023-04-10 00:00:00 Outpatient PREZAS, GIOVANY DIALLOHUMPHREY PIZANO [id number] [facility] 2023-03-27 09:00:00 2023-03-27 09:00:00 Outpatient PREZAS, GIOVANY LAURA PIZANO [id number] [facility] 2023-03-27 00:00:00 2023-03-27 00:00:00 Outpatient PREZAS, GIOVANY LAURA PIZANO [id number] [facility] 2023-03-27 00:00:00 2023-03-27 00:00:00 Outpatient PREZAS, GIOVANY LAURA PIZANO [id number] [facility] 2023-03-26 00:00:00 2023-03-26 00:00:00 Outpatient PREZAS, GIOVANYLEDY PIZANO [id number] [facility] 2023-03-26 00:00:00 2023-03-26 00:00:00 Outpatient PREZAS, GIOVANY LAURA PIZANO [id number] [facility] 2023-03-25 14:00:00 2023-03-25 14:00:00 Outpatient PREZAS, GIOVANY LAURA [facility]ZANO [id number] [facility]23-03-10 00:00:00 2023-03-10 00:00:00 Outpatient PREZAS, GIOVANY PIZANO LAURA [id number] [facility] 2023-03-09 00:00:00 2023-03-09 00:00:00 Outpatient PREZAS, GIOVANY PIZANO LAURA [id number] [facility] 2023-03-04 00:00:00 2023-03-04 00:00:00 Outpatient PREZAS, GIOVANY PIZANO LAURA [id number] [facility] 2023-03-03 00:00:00 2023-03-03 00:00:00 Outpatient PREZAS, GIOVANY PIZANO LAURA [id number] [facility] 2023-03-02 00:00:00 2023-03-02 00:00:00 Outpatient PREZAS, GIOVANY DIALLOHUMPHREY PIZANO [id number] [facility] 2023-03-02 00:00:00 2023-03-02 00:00:00 Outpatient PREZAS, GIOVANY PIZANO LAURA [id number] [facility] 2023-03-02 00:00:00 2023-03-02 00:00:00 Outpatient PREZAS, GIOVAYN DIALLOHUMPHREY PIZANO [id number] [facility] 2023-03-02 00:00:00 2023-03-02 00:00:00 Outpatient PREZAS, GIOVANY LAURA PIZANO [id number] [facility] 2023-02-27 00:00:00 2023-02-27 00:00:00 Outpatient PREZAS, GIOVANY DIALLOHUMPHREY PIZANO [id number] [facility] 2023-02-25 00:00:00 2023-02-25 00:00:00 Outpatient PREZAS, GIOVANY LAURA PIZANO [id number] Laura Seybold 2023-02-24 11:30:00 2023-02-24 11:30:00 Outpatient PREZAS, GIOVANY LAURA PIZANO [id number] Laura Seybold 2023-02-18 00:00:00 2023-02-18 00:00:00 Outpatient PREZAS, GIOVANY LAURA PIZANO [id number] [facility] 2023-02-12 00:00:00 2023-02-12 00:00:00 Outpatient PREZAS, GIOVANY PIZANO [id number] Laura Enrique 2023-02-12 00:00:00 2023-02-12 00:00:00 Outpatient PREZAS, GIOVANY PIZANO [id number] Laura Enrique 2023-02-11 00:00:00 2023-02-11 00:00:00 Outpatient PREZAS, GIOVANY PIZANO [id number] [facility] 2023-01-28 00:00:00 2023-01-28 00:00:00 Outpatient PREZAS, GIOVANY PIZANO [id number] [facility] 2023-01-28 00:00:00 2023-01-28 00:00:00 Outpatient PREZAS, GIOVANY PIZANO [id number] [facility] 2023-01-27 13:00:00 2023-01-27 13:00:00 Outpatient LAB90 LAURA PIZANO [id number] [facility] 2023-01-27 10:45:00 2023-01-27 10:45:00 Outpatient PREZAS, GIOVANY PIZANO [id number] [facility] 2023-01-27 00:00:00 2023-01-27 00:00:00 Outpatient PREZAS, GIOVANY PIZANO [id number] [facility] 2022-12-26 17:57:00 2022-12-26 20:20:00 Emergency Marylou Johnson [facility] [id number] [facility] 2022-12-26 17:57:00 2022-12-26 20:20:00 Emergency X MARYLOU JOHNSON [facility] ERT [id number] [facility] 2022-06-11 11:10:00 2022-06-11 12:41:00 Emergency EM Ted Schultz [facility] [id number] [facility] 2021-02-09 23:10:00 2021-02-10 00:19:00 Emergency EM Kaelyn Peguero [facility] [id number] [facility] Results Test Description Test Time Test Comments Results Result Co mments Source [facility], [address], [place], [address], POC [id number] 05:04:00* Test Item Value Reference Range Interpretation Comme nts POC,INTERNAT NORMAL RATIO (test code = EDINR) 1.1 0.8-1.5 N The Hem[employer]ryp[employer]ixron Jr . Citrate Prothrombin Time (PT) Test is aquantitative assay intended for in vitro diagnostic use inperforming a quantitative, one-stage assay for monitoringhemostasis assessment. The Prothrombin Time test monitorsthe extrinsic coagulation pathway, using a citrated wholeblood sample. The INR is calculated directly from the wholeblood PT value based on a regression analysis. [facility], [address], [place], [address], URINE DRUG SCREEN [id number] 02:46:00* Test Item Value Reference Range Interpretation [...] results should not beused for non-medical purposes. [facility], [address], [place], [address], POC,HCG URINE, [id number] 02:38:00* Test Item Value Reference Range Interpretation Comme nts POC,HCG URINE, QUALITATIVE ( test code = EDHCGU) Negative Negative [facility], [address], [place], [address], URINALYSIS [id number] 02:32:00* Test Item Value Reference Range Interpretation [...] ESTERASE (test code = EDLEUK) Negative Negative [facility], [address], [place], [address], - CT ABD PELVIS W/O [id number] 02:32:00 [facility] 1990 Sex: FName: BREANNA JIMENEZ [facility] : 1990 Age/S: 32 / F [address] Unit #: [id number] Loc: [place] [address] Phys: Jose Maki MD Acct: [id number] Dis Date: Status: PRE ER PHONE #: Exam Date: 04/14/2023226 FAX #: Reason: epigastric abd pain suspect gastroparesis EXAMS: CPT CODE: [id number] CT ABD PELVIS W/O CONT 34283 - CT ABD PELVIS W/O CONT INDICATION [...] 1 Signed Report (CONTINUED) Name: BREANNA JIMENEZ [facility] FSED : 1990 Age/S: 32 / F [address] Unit #: [id number] Loc: [place] [address] Phys: Jose Maki MD Acct: [id number] Dis Date: Status: PRE ER PHONE #: ExamDate: 04/14/2023 0227 FAX #: Reason: epigastric abd pain suspect gastroparesis EXAMS: CPT CODE: [id number] CT ABD PELVIS W/O CONT 83819 (Continued) CC: Jose Maki MD Technologist:Milagro Rosen RT (R) CT CTDI: 8 DLP: 395 Trnscb Date/Time: 04/14/2023 (231) [id number] Orig Print D/T: S:04/14/2023 (6) PAGE 2 Signed ReportCOMPREHENSIVE METABOLIC [id number] 02:31:00* Test Item Value Reference Range Interpretation [...] result value is determined by the eGFR 202 CKD-EPIformula using serum creatinine, age and sex, [...] code = EDALP) 127 U/L 42-[address] [facility], [address] [facility] [address], [address], POC,[id number] 02:31:00* Test Item Value Reference Range Interpretation Comme [facility] POC,AMYLASE (test code = EDAMY) 118 U/L 14-[address] [facility], [address] [facility] [address], [address], COMPLETE BLOOD COUNT (CBC)2023-04-14 02:21:00* Test Item Value Reference Range Interpretation Comme [facility] POC,WHITE BLOOD CELL (test c ode [...] code = EDMPVP) 13.3 fL 7.9-13.3 N [facility], [address] [facility] [address], [place], [address], UA RFLX MICROSCOPIC [id number] 11:54:00* Test Item Value Reference Range Interpretation [...] Suprapubic PainURINE SOURCE: CLEAN CATCH URINEUR HCG [id number] 11:54:00* Test Item Value Reference Range Interpretation Comme nts UR HCG QUAL (test code = HCGQLU) NEGATIVE NEGATIVE Indication for culture: Suprapubic PainURINE SOURCE: CLEAN CATCH URINE COMPREHENSIVE METABOLIC [id number] 11:49:00* Test Item Value Reference Range Interpretation [...] code = ALKP) 105 U/L 45-117 N [id number] 11:49:00* Test Item Value Reference Range Interpretation Comme nts AMYLASE (test code = PARAM) 73 IU/L 25-115 N [id number] 11:49:00* Test Item Value Reference Range Interpretation Comme nts LIPASE (test code = LIP) 134 U/L 73-393 N CBC W/AUTO [id number] 11:33:00* Test Item Value Reference Range Interpretation [...] code = RBCM) NO NORMAL COMPREHENSIVE METABOLIC [id number] 16:11:00* Test Item Value Reference Range Interpretation [...] > or = 60 ml/min/1.73M2IF PATIENT IS -CYMRAES, MULTIPLY REPORTED RESULT BY1.21. [Automated message] The [...] code = ALKP) 139 U/L 45-117 H [id number] 16:11:00* Test Item Value Reference Range Interpretation Comme nts LIPASE (test code = LIP) 108 U/L 73-393 N URINALYSIS W REFLEX [id number] 16:05:00* Test Item Value Reference Range Interpretation [...] UAMICRO) Y= DO UA MICRO UR HCG [id number] 16:05:00* Test Item Value Reference Range Interpretation Comme nts UR HCG QUAL (test code = HCGQLU) NEGATIVE NEGATIVE URINALYSIS W REFLEX [id number] 16:05:00* Test Item Value Reference Range Interpretation [...] = UAMICRO) Y= DO UA MICRO UA [id number] 16:05:00* Test Item Value Reference Range Interpretation Comme nts UA WBC (test code = WBCU) 0-2 #/hpf 0-5 UA RBC (test code = RBCU) 0-2 #/hpf 0-5 UA EPITHELIAL CELLS (test co de = EPIU) 2+ /hpf NEG,FEW A UA BACTERIA (test code = BACU) FEW /hpf NEGATIVE A UA AMORPHOUS SEDIMENT (test code = AMORU) FEW /hpf NEG,FEW UR HCG [id number] 16:05:00* Test Item Value Reference Range Interpretation Comme nts UR HCG QUAL (test code = HCGQLU) NEGATIVE NEGATIVE URINALYSIS W REFLEX [id number] 16:05:00* Test Item Value Reference Range Interpretation [...] UAMICRO) Y= DO UA MICRO UR HCG [id number] 16:05:00* Test Item Value Reference Range Interpretation Comme nts UR HCG QUAL (test code = HCGQLU) NEGATIVE NEGATIVE DRUGS OF ABUSE [id number] 16:01:00* Test Item Value Reference Range Interpretation Comme nts UR COCAINE (test code = COCAU) NEGATIVE ng/ml NEGATIVE UR CANNABINOIDS (test code = CANU) POSITIVE ng/ml NEGATIVE A VALUE EXCEEDS CRITICAL LEVEL. CRITICAL VALUE CALLEDTO AND CRITICAL VALUE READ BACK BY HUBER DOWNING RN 2780 06/24/20. Chas Dixon POSITIVE URINE DRUG SCREEN [...] 300 NG/MLPHENCYCLIDINE 25 NG/ML URINALYSIS W REFLEX [id number] 15:58:00* Test Item Value Reference Range Interpretation [...] NEEDED? (test code = UAMICRO) UR HCG [id number] 15:58:00* Test Item Value Reference Range Interpretation Comme nts UR HCG QUAL (test code = HCGQLU) NEGATIVE NEGATIVE CBC W/AUTO [id number] 15:52:00* Test Item Value Reference Range Interpretation [...] = RBCM) NO NORMAL URINALYSIS W REFLEX [id number] 13:00:00* Test Item Value Reference Range Interpretation [...] Y= DO UA MICRO UA ICTOTEST FOR [id number] 13:00:00* Test Item Value Reference Range Interpretation Comme nts UA ICTOTEST FOR BILIRUBIN (t est code = ICTOU) POSITIVE NEGATIVE A UA [id number] 13:00:00* Test Item Value Reference Range Interpretation Comme nts UA WBC (test code = WBCU) 0-2 #/hpf 0-5 UA RBC (test code = RBCU) 3-5 #/hpf 0-5 UA EPITHELIAL CELLS (test co de = EPIU) FEW /hpf NEG,FEW UA BACTERIA (test code = BACU) FEW /hpf NEGATIVE A UA MUCUS (test code = MUCU) 1+ /hpf NEG,FEW A UR HCG [id number] 13:00:00* Test Item Value Reference Range Interpretation Comme nts UR HCG QUAL (test code = HCGQLU) NEGATIVE NEGATIVE DRUGS OF ABUSE [id number] 12:57:00* Test Item Value Reference Range Interpretation [...] 300 NG/MLPHENCYCLIDINE 25 NG/ML URINALYSIS W REFLEX [id number] 12:56:00* Test Item Value Reference Range Interpretation [...] Y= DO UA MICRO UA ICTOTEST FOR [id number] 12:56:00* Test Item Value Reference Range Interpretation Comme nts UA ICTOTEST FOR BILIRUBIN (t est code = ICTOU) POSITIVE NEGATIVE A UR HCG [id number] 12:56:00* Test Item Value Reference Range Interpretation Comme nts UR HCG QUAL (test code = HCGQLU) NEGATIVE NEGATIVE URINALYSIS W REFLEX [id number] 12:53:00* Test Item Value Reference Range Interpretation [...] UAMICRO) Y= DO UA MICRO UR HCG [id number] 12:53:00* Test Item Value Reference Range Interpretation Comme nts UR HCG QUAL (test code = HCGQLU) NEGATIVE NEGATIVE URINALYSIS W REFLEX [id number] 12:53:00* Test Item Value Reference Range Interpretation [...] UAMICRO) Y= DO UA MICRO UR HCG [id number] 12:53:00* Test Item Value Reference Range Interpretation Comme nts UR HCG QUAL (test code = HCGQLU) NEGATIVE NEGATIVE - XR ABDOMEN [id number] 12:16:00 [facility] 1990 Sex: F FAX: Sawyer Centeno II Center Line: [place] St: PRE Name: BREANNA QUEEN FSED : 1990 Age/S: 30/F [address] Unit #: [id number] Loc: [place] [address] Phys: Sawyer Centeno II, MD Acct: [id number] Dis Date: Status: PRE ER PHONE #: Exam Date: 05/19/2020 1212 FAX #: Reason: abdominal pain EXAMS: CPT CODE: [id number] XR ABDOMEN 2V 32212 - XR ABDOMEN 2V PROVIDED REASON FOR [...] By: [email or web address] Orig Print D/T: S: 05/19/2020 (2755) PAGE 1 Signed ReportBASIC METABOLIC PANEL 2020-05-19 [...] > or = 60 ml/min/1.73M2IF PATIENT IS -CYMRAES, MULTIPLY REPORTED RESULT BY1.21. [Automated message] The system which generated this result transmitted reference range: >=60. The reference range was not used to interpret this result as normal/abnormal. CREATININE (test code = CREAT) 0.64 mg/dl 0.55-1.02 N CALCIUM (test code = CA) 9.8 mg/dL 8.5-10.1 N LIVER [id number] 12:08:00* Test Item Value Reference Range Interpretation [...] code = ALKP) 119 U/L 45-117 H [id number] 12:08:00* Test Item Value Reference Range Interpretation Comme nts LIPASE (test code = LIP) 67 U/L 73-393 L CBC W/AUTO [id number] 11:43:00* Test Item Value Reference Range Interpretation [...] = RBCM) NO NORMAL URINALYSIS W REFLEX [id number] 22:06:00* Test Item Value Reference Range Interpretation [...] MUCU) 2+ /hpf NEG,FEW A BASIC METABOLIC [id number] 21:54:00* Test Item Value Reference Range Interpretation [...] > or = 60 ml/min/1.73M2IF PATIENT IS -CYMRAES, MULTIPLY REPORTED RESULT BY1.21. CREATININE (test code = CREAT) 0.70 mg/dL 0.51-0.95 N CALCIUM (test code = CA) 9.3 mg/dL 8.5-10.1 N LIVER [id number] 21:54:00* Test Item Value Reference Range Interpretation [...] code = ALKP) 69 U/L 50-136 N [id number] 21:54:00* Test Item Value Reference Range Interpretation Comme nts LIPASE (test code = LIP) 63 U/L 73-393 L BASIC METABOLIC [id number] 21:53:00* Test Item Value Reference Range Interpretation [...] > or = 60 ml/min/1.73M2IF PATIENT IS -CYMRAES, MULTIPLY REPORTED RESULT BY1.21. CREATININE (test code = CREAT) 0.70 mg/dL 0.51-0.95 N CALCIUM (test code = CA) 9.3 mg/dL 8.5-10.1 N LIVER [id number] 21:53:00* Test Item Value Reference Range Interpretation [...] ( test code = ALKP) U/L 50-136 [id number] 21:53:00* Test Item Value Reference Range Interpretation Comme nts LIPASE (test code = LIP) 63 U/L 73-393 L BASIC METABOLIC [id number] 21:52:00* Test Item Value Reference Range Interpretation [...] > or = 60 ml/min/1.73M2IF PATIENT IS -CYMRAES, MULTIPLY REPORTED RESULT BY1.21. CREATININE (test code = CREAT) 0.70 mg/dL 0.51-0.95 N CALCIUM (test code = CA) 9.3 mg/dL 8.5-10.1 N LIVER [id number] 21:52:00* Test Item Value Reference Range Interpretation [...] ( test code = ALKP) U/L 50-136 [id number] 21:52:00* Test Item Value Reference Range Interpretation Comme nts LIPASE (test code = LIP) 63 U/L 73-393 L BASIC METABOLIC [id number] 21:51:00* Test Item Value Reference Range Interpretation [...] > or = 60 ml/min/1.73M2IF PATIENT IS -CYMRAES, MULTIPLY REPORTED RESULT BY1.21. CREATININE (test code = CREAT) 0.70 mg/dL 0.51-0.95 N CALCIUM (test code = CA) 9.3 mg/dL 8.5-10.1 N LIVER [id number] 21:51:00* Test Item Value Reference Range Interpretation [...] ( test code = ALKP) U/L 50-136 [id number] 21:51:00* Test Item Value Reference Range Interpretation Comme nts LIPASE (test code = LIP) 63 U/L 73-393 L BASIC METABOLIC [id number] 21:49:00* Test Item Value Reference Range Interpretation [...] = CA) 9.3 mg/dL 8.5-10.1 N LIVER [id number] 21:49:00* Test Item Value Reference Range Interpretation [...] ( test code = ALKP) U/L 50-136 [id number] 21:49:00* Test Item Value Reference Range Interpretation Comme nts LIPASE (test code = LIP) 63 U/L 73-393 L BASIC METABOLIC [id number] 21:48:00* Test Item Value Reference Range Interpretation [...] = CA) 9.3 mg/dL 8.5-10.1 N LIVER [id number] 21:48:00* Test Item Value Reference Range Interpretation [...] ( test code = ALKP) U/L 50-136 [id number] 21:48:00* Test Item Value Reference Range Interpretation Comme nts LIPASE (test code = LIP) U/L 73-393 BASIC METABOLIC [id number] 21:46:00* Test Item Value Reference Range Interpretation [...] (test code = CA) mg/dL 8.5-10.1 LIVER [id number] 21:46:00* Test Item Value Reference Range Interpretation [...] ( test code = ALKP) U/L 50-136 [id number] 21:46:00* Test Item Value Reference Range Interpretation Comme nts LIPASE (test code = LIP) U/L 73-393 CBC W/AUTO [id number] 21:43:00* Test Item Value Reference Range Interpretation [...] 0.0-0.1 N Notes Date/Time Note Provider Source 2023-05-30 15:40:45 nYZAz0x6SlTob2ylPHIpqoalwmLhbkCLg5qAn31k dCR iSdtgoJVdDCPhJPJpHY6d8717-18-27W28:40:45For matting of this note might be different from the original.PT D/C home. GCS15, VS stable. Given D/C paperwork. Pt ambulatory at time of discharge. Pt educated on med usage, follow up care, s/s worsening condition, need for hydration. Pt verbalized understanding.Pt ambulated from ED in NAD, pt to waiting room to await ride home 86376-1Clufwzlqg department HmbvJO0848-98-68P60:41:05Emergency department NoteTXT1.2.840.733431.1.13.104.2.7.2.481175 |[id number] for patient vlum89184-6JvpzKXNMDOYZMXFLmvashcwy C-CDA narrative qhtb188768808Nrdd E Linkes RN[address] SqwtQoitfedzfClevnoxpwKXHB9927122205JHNUGWV HGDYMOITBCQWAFL7051-14-09H52:41:051.2.840.1 08688.1.72.3.15|1.2.840.494092.1.13.104.2.7 .2.727879_[id number] Kezia Fox RN [facility] 2023-05-30 13:50:56 skDtHGDxKLgriEgItFFJGHzg8DkDovLLZVcgwtBD hNe iV1aRWSbriXYSmIO+Wj254368-72-63N49:50:56For matting of this note might be different from the original.Pt to ED via [facility] N/V/Abd pain starting 4days ago worsening this morning.Seen at [facility] this morning and given phenergan and IVF and was DC. Pt states she does not feel better so she came to [facility] ED.4mg zofran IVP and 100mL NS given en route. 54366-4Ubhwudggs department Triage xzvfVL9966-04-85Q94:54:25[facility] Triage noteTXT1.2.840.338600.1.13.104.2.7.2.289458 |[id number] for patient sntk84503-0Pbtrxycdr department NoteLNNARRATIVEFormatted C-CDA narrative [id number] R Potter RN[address] GcluPybqajhtrPgbmsuodcSBDW0173536530PPNLIYE XWBNFSGUBMUAVNK4296-98-97Y52:54:251.2.840.1 00627.1.72.3.15|1.2.840.820203.1.13.104.2.7 .2.727879_[id number] Nallely Minaya RN [facility] 2023-04-14 02:04:00 QT2339395549aUwH7YFCKpjJU749Tq8WUWrR4p4r EK1 oIt/3QSwKZzjVvpxsvdCbViWtD5vETpuv3707-13-90 T02:04:00 [facility] ([facility])EMERGENCY PROVIDER REPORTREPORT#:[id number] REPORT STATUS: SignedDATE:04/14/23 TIME: 0204 PATIENT: BREANNA JIMENEZ UNIT #: [id number]#: [id number] ROOM/BED:AGE: 32 SEX: F PCP PHYS: No Primary or Family PhysicianSERVICE AUTHOR: Jose Maki MD * ALL edits or amendments must be made on the electronic/computer document * HPI-Abd Pain F Under 40 Free Text HPI NotesFree Text HPI Jpbcj89-ziqu-rfk presents with abdominal pain that started around [...] 126 04/13 0208 O2 Delivery Room air 04/13 020 Temp 97.3 04/13 0208 Pulse 83 04/13 0208 Resp 19 04/13 0208 Last Documented: Result Date Time Pulse Ox 100 04/13 0208 B/P 165/107 04/13 0208 B/P Mean 126 04/13 0208 O2 Delivery Room air 04/13 020 Temp 97.3 04/13 0208 Pulse 83 04/13 0208 Resp 19 04/13 0208 Review of Vital Signs Reviewed, Vital signs [...] Urines POC Urine HCG, Qual (Negative) Negative 04/13 0221 0215 Chemistry POC Sodium (128 - [...] (5.0 - 8.0) 7.0 POC Ur Specif [place] (1.001 - 1.035) 1.025 POC Urine Protein [...] 226 Report Impression - Status: SIGNED Entered: 04/14/2023 023 IMPRESSION:No acute findings. Specifically the stomach is [...] 1,000 ML X1ED STA 04/13 0237 AC / IV 04/13 0336 0238 Sodium Chloride 1,000 ML X1ED STA 04/13 0208 AC / IV 04/13 0307 0218 Gastrointestinal Drugs Sig/Ayanna Start time Last Medication Dose Route Stop Time Status Admin Famotidine 20 MG X1ED STA 04/13 0208 DC / IV 04/13 0209 0219 Metoclopramide HCl 10 MG X1ED STA 04/13 0208 DCr / IV 04/13 208 0219 Differential Diagnosis)( Differential Diagnosis Acute abdominal pain, Appendicitis, Bowel obstruction,Constipation, Diverticular disease, Ectopic preg ruptured, Ectopic , Endometriosis, Gastritis, Gastroenteritis, GERD Patient Discharge Departure Vital Signs/ConditionVital SignsFirst Documented: Result Date Time Pulse Ox 100 04/13 0208 B/P 165/107 04/13 0208 B/P Mean 126 04/13 0208 O2 Delivery Room air 04/13 020 Temp 97.3 04/13 0208 Pulse 83 04/13 0208 Resp 19 04/13 0208 Last Documented: Result Date Time Pulse Ox 100 04/13 0208 B/P 165/107 04/13 0208 B/P Mean 126 04/13 0208 O2 Delivery Room air 04/13 0208 Temp 97.3 04/13 0208 Pulse 83 04/13 0208 Resp 19 04/13 0208 All vital signs available at the time [...] or a call to 911. at 0504RPT #:[id number] OF REPORTChildren[facility] department cbjyoo2754-58-95Y06:04:00H.EJXA26488969-637 1AVAvailable for patient pmnyUCPVQVWAEWRGOX8856-45-65X54:04:38 [facility] 2023-02-24 11:47:47 HDWfxhJOF1hQcZyHB4aXc8WVwsMa5w0jP2FfMB/f Ele 9BBWVmt+r7K1btGk1HQJf5066-82-45K02:47:47For matting of this note is different from the original.Chief ComplaintPatient presents withFollow-Up Visit1 month follow up visitPaLauren Wuectronically signed by Miriam French LVN at 02/24/2023 11:48 AM GGT11441-3Lszfi CrruYU3417-36-14F97:48:14Nurse NoteTXT1.2.840.301978.1.13.131.2.7.2.834966 |[id number] for patient mdbh86684-9Ncmim NoteLNNARRATIVEFormatted C-CDA narrative RomuloIva Aymoom27[address] [facility]TTHAJLUWFTFDOSGDXK2938128714IYJE2087-2 :48:141.2.840.877464.1.72.3.15|1.2.8 40.748699.1.13.131.2.7.2.727879_[id number] [facility] 2022-06-11 11:33:00 JZ3940250587MI/a0qXTbkmjpjDpZe7rF1P6fylz c+e XKL83wrsSazU4+ETxLMzAcSCSOPTMELWy4676-66-12 T11:33:00 [facility] ([facility])EMERGENCY PROVIDER REPORTREPORT#:[id number] REPORT STATUS: SignedDATE:06/11/22 TIME: 1133 PATIENT: BREANNA JIMENEZ UNIT #: [id number]#: [id number] ROOM/BED:AGE: 32 SEX: F PCP PHYS: Undefined [...] 06/11 1113 O2 Delivery Room air 06/11 111 Pulse 70 06/11 1113 Resp 18 06/11 1113 Temp 36.3 06/11 1206 Last Documented: Result Date Time Pulse Ox 100 06/11 1206 B/P 124/78 06/11 1206 B/P Mean 93 06/11 1206 Temp 36.3 06/11 1206 Pulse 77 05 1206 Resp 16 06/11 1206 O2 Delivery [...] % (Auto) (16 - 50 %) 22.9 Davidson % (Auto) (0.0 - 13.0 %) 9.8 [...] pH (4.6 - 8.0) 7.0 Ur Specific [place] (1.001 - 1.035) 1.020 Urine Protein (NEGATIVE [...] yesterday. After discussion patient states was [facility] was [facility] compazine/reglan [...] X1ED STA 05 1141 DC 05/03 IV 05/03 1240 1155 Sodium Chloride 1,000 ML X1ED [...] B/P 156/96 05/ 1113 B/P Mean 116 05/03 1113 O2 Delivery Room air 05/ 1113 Pulse 70 05/ 1113 Resp 18 05/ 1113 Temp 36.3 05/ 1206 Last Documented: Result Date Time Pulse Ox 100 05/ 1206 B/P 124/78 05/ 1206 B/P Mean 93 05/ 1206 Temp 36.3 05/ 1206 Pulse 77 05/ 1206 Resp 16 05/03 1206 O2 Delivery Room air 06/11 1113 [...] or a call to 911. at 1245RPT #:[id number] OF REPORTEDEmergency department npfftz3889-67-00I57:33:00H.PTFE12175573-174 5AVAvailable for patient ldlxQCPEXNGIPFRVND7962-51-33N38:45:50 [facility] 2021-02-09 23:43:00 FE7686332541qxlMZoVfiq8wEihL6CcvDNYhr+JM qb4 VILopBCHl3B9Os7M3bAw7nOxzWmUVbhL63499-14-44 T23:43:00 [facility] ([facility])EMERGENCY PROVIDER REPORTREPORT#:[id number] REPORT STATUS: SignedDATE:02/09/21 TIME: 2342 PATIENT: BREANNA JIMENEZ UNIT #: [id number]#: [id number] ROOM/BED:AGE: 30 SEX: F PCP PHYS: No Primary or Family PhysicianSERVICE AUTHOR: Kaelyn Peguero MD * ALL edits or amendments must be made on the electronic/computer document * BZP-Wug-Mwqm Illness GeneralConfirmed Patient YesPatient Type New patientInitial Greet Date/Time 02/09/21 2312 PresentationChief Complaint Body aches, Chills, Cough Free Text HPI NotesFree Text HPI Rrzuy09-qbjz-svm female comes emergency room complaining of cough, body aches, chills, that began 2 days ago. Patient has been traveling in [facility] and apparently although she has been driving [...] Pulse 78 02/09 231 Resp 18 02/09 2310 Last Documented: Result Date Time Pulse Ox 100 02/09 231 B/P 110/74 02/09 231 B/P Mean 86 02/09 2310 O2 Delivery Room air 02/09 2310 Temp 37.4 02/09 231 Pulse 78 02/09 2310 Resp 18 02/09 [...] new symptoms or worsening symptoms. at 0652RPT #:[id number] OF REPORTEDEmemulticare [facility] department khkseo0453-04-33X52:43:00H.CXHR66366192-196 8AVAvailable for patient gdnbOTYXNXHSNUMNMP6133-56-68Y37:53:06 [facility] 2020-06-24 15:35:00 VYrnkxhwhng25626103FF8GP+X8Khwnizpm4disa n9M bGcw++6/1pujqF3azgGsv3+NnE7/OPuk6wx8U9z6502 02-13-15T15:35:00 [facility] ([facility])EMERGENCY PROVIDER REPORTREPORT#:[id number] REPORT STATUS: SignedDATE:06/24/20 TIME: 1534 PATIENT: BREANNA JIMENEZ UNIT #: [id number]#: [id number] ROOM/BED:AGE: 30 SEX: F PCP PHYS: No Primary or Family PhysicianSERVICE AUTHOR: Maicol Coy MD * ALL edits or amendments must be made on the electronic/computer document * HPI-Abd Pain F Under 40 GeneralInitial Greet Date/Time 06/24/20 1529PCPDr. [place] PresentationChief Complaint Abdominal pain, Nausea, Vomiting [...] Nothing Free Text HPI NotesFree Text HPI Ucvtf85c M2 LMP 19 May 2020 c/o acute on chronic gastroparesis related to IBS and/or THC use for past 2d with nonbloody N/V x 6. She is visiting from [place]. Risk-Abd Pain F Under 40)( Ectopic Risk [...] % (Auto) (16 - 50 %) 48.2 Davidson % (Auto) (0.0 - 13.0 %) 13.0 [...] pH (4.6 - 8.0) 7.0 Ur Specific [place] (1.001 - 1.035) 1.020 Urine Protein (NEGATIVE [...] as indicated in the discharge instructions. [facility] NoteThere is no historical, physical exam, laboratory [...] completed. ED CourseMedication(s) OrderedMedication(s) Ordered:Electrolytic, Caloric, And Evlia Sig/Ayanna Start time Last Medication Dose Route [...] the plan for smoking cessation. at 2053RPT #:[id number] OF REPORTEDEmergency department nofpav9002-99-53S14:35:00H.XTMJ03047087-082 8AVAvailable for patient ppgiHEDACTMJMRVAXA2531-72-05P19:53:15 [facility] 2020-05-19 12:11:00 GRdmqwtznyc90207763Eam74TtHJeFpTIzFgV6v3 3xk VNg9wpTOXkllG1eDfdfBEs3yYTqTvUN9I3OYLR4a760 02-12-092:11:00 [facility])EMERGENCY PROVIDER REPORTREPORT#:[id number] REPORT STATUS: SignedDATE:05/19/20 TIME: 1211 PATIENT: BREANNA QUEEN UNIT #: [id number]#: [id number] ROOM/BED:AGE: 30 SEX: F PCP PHYS: Brayan Winn AUTHOR: Sawyer Centeno II, MD * ALL edits or amendments must be made on the electronic/computer document * HPI-Abd Pain F Under 40 Free Text HPI NotesFree Text HPI NotesThe patient tells me she has a history of gastroparesis but is not a diabetic. She tells me that she is from [facility] and that she has GI specialist in [facility] whose name is Dr. Hendrix. She tells me she used to get Botox injections in her pilorus to treat her pain. She tells me she went to a local hospital yesterday and got several medications for pain but the pain did not getany better. GeneralConfirmed Patient YesInitial Greet Date/Time 05/19/20 1129[facility] PresentationChief Complaint Abdominal painHx Obtained From [...] 1128 B/P Mean 120 05/198 Temp 36.9 05/198 Pulse 84 05/198 Resp 18 05/20 1127 Last Documented: Result Date Time Pulse Ox 98 05/19 1128 B/P 158/101 05/19 1128 B/P Mean 120 05/19 1128 Temp 36.9 05/19 1128 Pulse 84 05/19 1128 Resp 18 05/19 112 Review of Vital Signs Reviewed Focused PEGeneral/Const [...] pH (4.6 - 8.0) 6.0 Ur Specific [place] (1.001 - 1.035) >= 1.030 Urine Protein [...] (Auto) (16 - 50 %) 9.5 L Davidson % (Auto) (0.0 - 13.0 %) 4.3 [...] Recent Impressions:RADIOLOGY - XR ABDOMEN 2V 05/19 121 Report Impression - Status: SIGNED Entered: 05/19/2020 1219 IMPRESSION:No acute process. Location: L00Qgfpueptma By: Emily CABALLERO M.D. Imaging StatementRadiographic studies [...] B/P 158/101 04/ 1128 B/P Mean 120 04/ 1128 Temp 36.9 04/ 1128 Pulse 84 04/ 1128 Resp 18 05/19 1128 Last Documented: Result Date Time Pulse Ox 98 04/10 1128 B/P 158/101 04/ 1128 B/P Mean 120 /10 1128 Temp 36.9 0410 1128 Pulse 84 04/10 1128 Resp 18 [...] HTN F/u with PCP/other doc at 1708RPT #:[id number] OF REPORTEDEmergency department wwanzr4434-67-84X40:11:00H.GQDV55728788-809 8AVAvailable for patient kzucCEGIJZGQWRFVGS6857-32-85D39:08:49 [facility] 2019-07-30 21:12:00 YPturmkfuab423942104dg2Pvk+z44of/FcEkEtU j+e WLvHfHZx7zZOFqOEEpRYLW9igLsGz4gFVe917kG6141 T21:12:00 [facility])EMERGENCY PROVIDER REPORTREPORT#:[id number] REPORT STATUS: SignedDATE:07/30/19 TIME: 2111 PATIENT: BREANNA JIMENEZ UNIT #: [id number]#: [id number] ROOM/BED:AGE: 29 SEX: F PCP PHYS: No [...] (Auto) (16.0 - 50.0 %) 15.3 L Davidson % (Auto) (0.0 - 13.0 %) 5.2 [...] pH (4.6 - 8.0) 6.0 Ur Specific [place] (1.001 - 1.035) 1.017 Urine Protein (NEGATIVE [...] STA 07/29 2113 DC 07/29 IV 07/293 213 Gastrointestinal Drugs Sig/Ayanna Start time Last [...] or a call to 911. at 0000RPT #:[id number] OF REPORTEDEmergency department mzqigv9990-78-34H82:12:00H.ABPN36700339-222 5AVAvailable for patient qlgwRUIKBOSSZPVGGS3226-43-94S34:00:25 [facility] 2019-07-30 21:12:00 BDdeknclpej581209564R11lZFA3ConDKsVOzfCK Mili +4WBS8tVvbDaD9GG5qhPAJCKDOEtXuxu9wHd96uG270 T21:12:00 [facility])EMERGENCY PROVIDER REPORTREPORT#:[id number] REPORT STATUS: SignedDATE:07/30/19 TIME: 2111 PATIENT: BREANNA JIMENEZ UNIT #: [id number]#: [id number] ROOM/BED:AGE: 29 SEX: F PCP PHYS: No [...] (Auto) (16.0 - 50.0 %) 15.3 L Davidson % (Auto) (0.0 - 13.0 %) 5.2 [...] pH (4.6 - 8.0) 6.0 Ur Specific [place] (1.001 - 1.035) 1.017 Urine Protein (NEGATIVE [...] of Care TestingUrinalysis Interpretation Urinalysis NL Re-Evaluation [facility] )( Re-Evaluation/Progress #1Time of Re-Eval 2228)( [...] STA 07/29 2257 DCr 07/29 IM 07/29 2258 2305 Ketorolac [...] call to 911. at 0000 at 0024RPT #:[id number] OF REPORTEDPeacehealth department btejhr4529-24-67U18:12:00H.EMFX07966025-473 5AVAvailable for patient fpstEINIQAEEJWSLSU2997-72-91Y58:24:32 HCARG"
[2023-06-01] MEDS ORDERED: DIPHENHYDRAMINE 50 MG/ML VIAL ONE (02:08)
[2023-06-01] MEDS ORDERED: NA CHLORIDE 0.9% 1,000 ML ONE (02:08)
[2023-06-01] MEDS ORDERED: FAMOTIDINE 20 MG/2 ML VIAL IV ONE (02:08)
[2023-06-01] MEDS ORDERED: KETOROLAC 30 MG/ML INJ ONE (02:08)
[2023-06-01] MEDS ORDERED: ONDANSETRON 4 MG/2 ML VIAL ONE (02:08)
[2023-06-01] MEDS ORDERED: MORPHINE 4 MG/ML SYR ONE (02:08)
[2023-06-01 02:36] LABS: Absolute Lymphocytes (CBC) 0.8 K/uL (0.7-4.9); Absolute Monocytes 0.2 K/uL (0.1-1.3); Absolute Neutrophil 6.7 K/uL (1.8-8.0); Basophils % 0.4 % (0-1.3); Eosinophils % 0.1 % (0-4.4); Hematocrit 38.1 % (36.0-45.0); Hemoglobin 12.5 g/dL (12.0-15.0); Lymphocytes % 10.7 % (15.3-44.8); MCH 25.4 pg (27.0-35.0); MCHC 32.7 g/dL (32.0-36.0); MCV 77.6 fL (80-100); MPV 11.1 fL (7.6-11.3); Monocytes % 2.8 % (3.3-12.3); Platelets 220 thou/uL (152-406); RBC Red Blood Cell Count 4.91 M/uL (3.86-4.86); Red Cell Distribution Width 18.1 % (12.1-15.2)
[2023-06-01 02:46] LABS: Albumin 3.9 g/dL (3.4-5.0); Albumin/Globulin Ratio 1.1 (1.1-1.8); Anion Gap 11.2 mEq/L (5.0-15.0); Bilirubin Total 0.8 mg/dL (0.2-1.0); Globulin 3.4 g/dL (2.3-3.5); Potassium 3.2 mEq/L (3.5-5.1); Protein, Total 7.3 g/dL (6.4-8.2)
[2023-06-01 04:02] LABS: Sqamous Epithelial <5 /HPF (None Seen); Urine Bacteria None Seen /HPF (<20); Urine Bilirubin NEGATIVE (Negative); Urine Blood 1+ (Negative); Urine Clarity Clear (Clear); Urine Color Colorless (Yellow); Urine Culture Reflex Order NOT NEEDED; Urine Glucose NEGATIVE (Negative); Urine Ketones 2+ (Negative); Urine Microscopic Reflex YN ORDER UMIC; Urine Nitrite NEGATIVE (Negative); Urine Protein NEGATIVE (Negative); Urine RBC <5 /HPF (None Seen); Urine Urobilinogen Normal (Normal); Urine WBC <5 /HPF (<5); Urine pH 7.5 (5.0-7.0)
[2023-06-01 04:03] LABS: Specific Gravity 1.019 (1.005-1.030)
[2023-06-01 04:25] LABS: Band Neutrophils 5 % (0-1); Blood Morphology Comment NOT SEEN (NOT SEEN); Differential Total Cells Count 100; Lymphocytes 11 % (15-42); Monocytes 2 % (0-10); Platelet Estimate ADEQ; Reactive Lymphocytes 3 %; Segmented Neutrophils 79 % (40-80)
[2023-06-01] MEDS ORDERED: PROMETHAZINE INJ 25 MG/ML AMP ONE (04:26)
[2023-06-01] MEDS ORDERED: DICYCLOMINE HCL 20 MG/2 ML AMP IM ONE (04:26)
--- NOTE | 2023-06-01 05:03 | EDPHYS ---
Physician Documentation [facility] Name: Efrem Pastor Age: 33 yrs Sex: Female : 1990 Arrival Date: 06/01/2023 Time: 01:33 Bed 7 Private MD: ED Physician Mario Santo HPI: 05/31 01:53 This 33 yrs old Female presents to ER via Unassigned with complaints of sp4 Nausea, vomiting, abdominal pain . 04:58 Patient with past medical history of anxiety gastroparesis and irritable bowel syndrome sp4 presents with acute onset nausea vomiting and abdominal discomfort. Patient presents with EMS. Patient is well familiar to me from prior visits for the similar problem. . 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 - Infectious Disease History:: Denies. - Social history:: Smoking status: Reported history of juuling and/or vaping. Patient/guardian denies using alcohol, street drugs. - Family history:: not pertinent. ROS: 04:58 Constitutional: Negative for fever, chills, and weight loss, positive nausea vomiting sp4 and abdominal pain 04:58 All other systems are negative, Exam: 04:58 Constitutional: This is a well developed, well nourished patient who is awake, alert, sp4 and in no acute distress. Head/Face: Normocephalic, atraumatic. Eyes: Pupils equal round and reactive to light, extra-ocular motions intact. Lids and lashes normal. Conjunctiva and sclera are not injected. Cornea within normal limits. Periorbital areas with no swelling, redness, or edema. ENT: Nares patent. No nasal discharge, no septal abnormalities noted. Tympanic membranes are normal and external auditory canals are clear. Oropharynx with no redness, swelling, or masses, exudates, or evidence of obstruction, uvula midline. Mucous membranes moist. Neck: Trachea midline, no thyromegaly or masses palpated, and no cervical lymphadenopathy. Supple, full range of motion without nuchal rigidity, or vertebral point tenderness. Chest/axilla: Normal chest wall appearance and motion. Nontender with no deformity. No lesions are appreciated. Cardiovascular: Regular rate and rhythm with a normal S1 and S2. No gallops, murmurs, or rubs. Normal PMI, no JVD. No pulse deficits. Respiratory: Lungs have equal breath sounds bilaterally, clear to auscultation and percussion. No rales, rhonchi or wheezes noted. No increased work of breathing, no retractions or nasal flaring. Abdomen/GI: Soft, with normal bowel sounds. No distension or tympany. No guarding or rebound. No evidence of tenderness throughout. Back: No spinal tenderness. No costovertebral tenderness. Skin: Warm, dry with normal turgor. Normal color with no rashes, no lesions, and no evidence of cellulitis. MS/ Extremity: Pulses equal, no cyanosis. Neurovascular intact. Full, normal range of motion. Neuro: Awake and alert, GCS 15, oriented to person, place, time, and situation. Cranial nerves II-XII grossly intact. Motor strength 5/5 in all extremities. Sensory grossly intact. Psych: Awake, alert, with orientation to person, place and time. Behavior, mood, and affect are within normal limits Vital Signs: 01:40 BP 159 / 107; Pulse 75; Resp 16 S; Temp 98.6(O); Pulse Ox 99% on R/A; Weight 63.5 kg lg3 (R); Height 5 ft. 2 in. (R); Pain 8/10; 05:04 BP 131 / 88; Pulse 71; Resp 17 S; Temp 98.4(O); Pulse Ox 100% on R/A; lg3 05:48 BP 135 / 84; Pulse 76; Resp 17; Temp 98.4; Pulse Ox 100% ; Pain 0/10; bm8 01:40 Body Mass Index 25.61 (63.50 kg, 157.48 cm) lg3 01:40 Pain Scale: Adult lg3 05:48 Pain Scale: Adult bm8 Pinson Coma Score: 02:24 Eye Response: spontaneous(4). Motor Response: obeys commands(6). Verbal Response: bm8 oriented(5). Total: 15. 04:58 Eye Response: spontaneous(4). Motor Response: obeys commands(6). Verbal Response: sp4 oriented(5). Total: 15. 05:48 Eye Response: spontaneous(4). Motor Response: obeys commands(6). Verbal Response: bm8 oriented(5). Total: 15. MDM: 02:02 Patient medically screened. sp4 04:14 Data reviewed: vital signs, nurses notes. ED course: EXAM: CTAbdomen and Pelvis With sp4 Intravenous Contrast CLINICAL HISTORY: The patient is 33 years old and is Female; ABD PAIN, NAUSEA, VOMITING TECHNIQUE: Axial computed tomography images of the abdomen and pelvis with intravenous contrast. Sagittal and coronal reformatted images were created and reviewed. This CT exam was performed using one or more of the following dose reduction techniques: automated exposure control, adjustment of the mA and/or kV according to patient size, and/or use of iterative reconstruction technique. COMPARISON: No relevant prior studies available. FINDINGS: Lung bases: Unremarkable. No mass. No consolidation. ABDOMEN: Liver: Unremarkable. No mass. Gallbladder and bile ducts: Gallbladder is surgically absent. No ductal dilation. Pancreas: Unremarkable. No mass. No ductal dilation. Spleen: Unremarkable. No splenomegaly. Adrenals: Unremarkable. No mass. Kidneys and ureters: Unremarkable. No solid mass. No hydronephrosis. Stomach and bowel: Unremarkable. No obstruction. No mucosal thickening. PELVIS: Appendix: The appendix is normal. Bladder: Bladder is distended. Reproductive: Unremarkable as visualized. ABDOMEN and PELVIS: Intraperitoneal space: Unremarkable. No free air. No significant fluid collection. Bones/joints: No acute fracture. No dislocation. Soft tissues: Unremarkable. Vasculature: Unremarkable. No abdominal aortic aneurysm. Lymph nodes: Unremarkable. No enlarged lymph nodes. IMPRESSION: No acute finding in the abdomen/pelvis. Electronically signed by: Mani Cardenas MD 06/01/2023 03:29. 04:53 ED course: CT report - COMPARISON: No relevant prior studies available. FINDINGS: Lung sp4 bases: Unremarkable. No mass. No consolidation. ABDOMEN: Liver: Unremarkable. No mass. Gallbladder and bile ducts: Gallbladder is surgically absent. No ductal dilation. Pancreas: Unremarkable. No mass. No ductal dilation. Spleen: Unremarkable. No splenomegaly. Adrenals: Unremarkable. No mass. Kidneys and ureters: Unremarkable. No solid mass. No hydronephrosis. Stomach and bowel: Unremarkable. No obstruction. No mucosal thickening. PELVIS: Appendix: The appendix is normal. Bladder: Bladder is distended. Reproductive: Unremarkable as visualized. ABDOMEN and PELVIS: Intraperitoneal space: Unremarkable. No free air. No significant fluid collection. Bones/joints: No acute fracture. No dislocation. Soft tissues: Unremarkable. Vasculature: Unremarkable. No abdominal aortic aneurysm. Lymph nodes: Unremarkable. No enlarged lymph nodes. IMPRESSION: No acute finding in the abdomen/pelvis. . 05:01 Differential Diagnosis altered mental status, sepsis, flu. ED course: Patient will be sp4 discharged with prescription for Reglan . 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 05/31 01:53 Order name: CBC with Diff; Complete Time: 04:52 sp4 05/31 01:53 Order name: CMP; Complete Time: 04:12 sp4 05/31 01:53 Order name: Lipase; Complete Time: 04:12 sp4 05/31 01:53 Order name: Test, Urine; Complete Time: 04:12 sp4 05/31 01:53 Order name: Urinalysis w/ reflexes; Complete Time: 04:12 sp4 05/31 02:39 Order name: Manual Differential; Complete Time: 04:52 EDMS 05/31 01:53 Order name: CT Abd/Pelvis - IV Contrast Only sp4 05/31 01:53 Order name: IV Saline Lock; Complete Time: 02:19 sp4 05/31 01:53 Order name: Labs collected and sent; Complete Time: 02:19 sp4 Administered Medications: 02:19 Drug: NS 0.9% IV 1000 ml IV at 1 bolus Per protocol; 1000 mL bolus Route: IV; Rate: 1 bm8 bolus; Site: right antecubital; 05:52 Follow up: IV Status: Completed infusion; IV Intake: 1000ml bm8 02:19 Drug: Famotidine IVP 20 mg IVP once; dilute with 10 mL 0.9% NaCl; give over 2 minutes bm8 Route: IVP; Site: right antecubital; 05:02 Follow up: Response: No adverse reaction lg3 02:19 Drug: TORadol - Ketorolac IVP 15 mg IVP once Route: IVP; Site: right antecubital; bm8 05:02 Follow up: Response: No adverse reaction lg3 02:19 Drug: Ondansetron IVP 4 mg IVP once; over 2 minutes Route: IVP; Site: right antecubital;bm8 05:03 Follow up: Response: No adverse reaction lg3 02:20 Drug: morphine IVP or IV 4 mg IVP once over 4 mins Route: IVP; Infused Over: 4 mins; bm8 Site: right antecubital; 05:02 Follow up: Response: No adverse reaction lg3 02:20 Drug: diphenhydrAMINE IVP 50 mg IVP once Route: IVP; Site: right antecubital; bm8 05:02 Follow up: Response: No adverse reaction lg3 04:58 Not Given (Physician Discretion): hyoscyamine0.125 mg 0.25 mg Sublingual once sp4 05:01 Drug: Promethazine IM 50 mg IM once Route: IM; Site: left deltoid; lg3 05:51 Follow up: Response: No adverse reaction bm8 05:01 Drug: Dicyclomine IM 20 mg IM once Route: IM; Site: right deltoid; lg3 05:51 Follow up: Response: No adverse reaction bm8 05:02 CANCELLED (Physician Discretion): ns 0.9% 1000 ml IV at 1 bolus Per protocol; 1000 mL lg3 bolus Disposition Summary: 06/01/23 05:02 Discharge Ordered Notes: Location: Home sp4 Problem: new sp4 Symptoms: have improved sp4 Condition: Stable sp4 Diagnosis - Nausea with vomiting, unspecified sp4 - Irritable bowel syndrome without diarrhea sp4 - Abdominal pain, Generalized sp4 Followup: sp4 - With: Luis Wen MD - When: 7 - 10 days - Reason: Recheck today's complaints Discharge Instructions: - Discharge Summary Sheet sp4 - Nausea and Vomiting, Adult sp4 Forms: - Patient Portal Instructions sp4 Prescriptions: - Reglan 10 mg Oral tablet - take 1 tablet ORAL route every 6 hours PRN nausea; 30 tablet; Refills: 0, sp4 Product Selection Permitted Signatures: Dispatcher [employer] Grace Us RN RN lg3 Mario Santo MD MD sp4 Tony Zaman RN RN bm8 Corrections: (The following items were deleted from the chart) 05:02 01:53 NS 0.9% IV 1000 ml IV at 1 bolus Per protocol; 1000 mL bolus ordered. sp4 lg3
--- NOTE | 2023-06-01 05:03 | ER ---
Nurse's Notes [facility] Name: Efrem Pastor Age: 33 yrs Sex: Female : 1990 Arrival Date: 06/01/2023 Time: 01:33 Bed 7 Private MD: Diagnosis: Nausea with vomiting, unspecified;Irritable bowel syndrome without diarrhea;Abdominal pain, Generalized Presentation: 05/31 01:40 Chief complaint: Patient states: N/V/ ABD pain X4 days. 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 Coronavirus screen: Client denies travel out of the [place] in the last 14 days. At this time, the client does not indicate any symptoms associated with coronavirus-19. Ebola Screen: No symptoms or risks identified at this time. Initial Sepsis Screen: Does the patient meet any 2 criteria? No. Patient's initial sepsis screen is negative. Does the patient have a suspected source of infection? No. Patient's initial sepsis screen is negative. Risk Assessment: Do you want to hurt yourself or someone else? Patient reports no desire to harm self or others. Onset of symptoms was May 27, 2023. 01:40 Method Of Arrival: EMS: [facility] lg3 01:40 Acuity: BELINDA 3 lg3 Triage Assessment: 02:28 General: Appears in no apparent distress. uncomfortable, Behavior is cooperative. Pain: lg3 Complains of pain in abdomen Pain does not radiate. Pain currently is 8 out of 10 on a pain scale. Quality of pain is described as heavy, pressure, squeezing. EENT: No deficits noted. No signs and/or symptoms were reported regarding the EENT system. Neuro: No deficits noted. Vargas Agitation-Sedation Scale (RASS): 0 - Alert and Calm Level of Consciousness is awake, alert, obeys commands, Oriented to person, place, time, situation. Cardiovascular: No deficits noted. Denies chest pain, shortness of breath, Capillary refill < 3 seconds Clubbing of nail beds is absent JVD is absent Patient's skin is warm and dry. Respiratory: No deficits noted. Airway is patent Respiratory effort is even, unlabored, Respiratory pattern is regular, symmetrical. GI: Abdomen is round non-distended, Bowel sounds present X 4 quads. Reports lower abdominal pain, upper abdominal pain, cramping, intolerance of fluids, intolerance of food, nausea, vomiting. : No deficits noted. No signs and/or symptoms were reported regarding the genitourinary system. Derm: Skin is intact, is healthy with good turgor, Skin is diaphoretic, Skin is normal, Skin temperature is warm. Musculoskeletal: No deficits noted. No signs and/or symptoms reported regarding the musculoskeletal system. Circulation, motion, and sensation intact. Range of motion: intact in all extremities. 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 - Infectious Disease History:: Denies. - Social history:: Smoking status: Reported history of juuling and/or vaping. Patient/guardian denies using alcohol, street drugs. - Family history:: not pertinent. Screenin:24 [facility] ED Fall Risk Assessment (Adult) History of falling in the last 3 months, bm8 including since admission No falls in past 3 months (0 pts) Confusion or Disorientation No (0 pts) Intoxicated or Sedated No (0 pts) Impaired Gait No (0 pts) Mobility Assist Device Used No (0 pt) Altered Elimination No (0 pt) Score/Fall Risk Level 0 - 2 = Low Risk Oriented to surroundings, Maintained a safe environment, Educated pt \T\ family on fall prevention, incl call for assistance when getting out of bed. Abuse screen: Denies threats or abuse. Nutritional screening: No deficits noted. Tuberculosis screening: No symptoms or risk factors identified. Assessment: 02:24 General: Appears distressed, uncomfortable, Behavior is calm, cooperative, appropriate bm8 for age. Pain: Complains of pain in abdomen and joint pain Pain does not radiate. Pain currently is 9 out of 10 on a pain scale. Quality of pain is described as crampy. Neuro: Level of Consciousness is awake, alert, obeys commands. Cardiovascular: Heart tones S1 S2 present Capillary refill < 3 seconds Patient's skin is warm and dry. Respiratory: No deficits noted. Airway is patent Respiratory effort is even, unlabored, Respiratory pattern is regular, symmetrical. GI: Abdomen is flat, non-distended, Bowel sounds present X 4 quads. Reports lower abdominal pain, upper abdominal pain, nausea, vomiting. : No deficits noted. No signs and/or symptoms were reported regarding the genitourinary system. EENT: No deficits noted. No signs and/or symptoms were reported regarding the EENT system. Derm: No deficits noted. No signs and/or symptoms reported regarding the dermatologic system. Musculoskeletal: No deficits noted. No signs and/or symptoms reported regarding the musculoskeletal system. 05:04 Reassessment: Patient appears in no apparent distress at this time. Patient and/or lg3 family updated on plan of care and expected duration. Pain level reassessed. Patient is alert, oriented x 3, equal unlabored respirations, skin warm/dry/pink. Patient states feeling better. Patient states symptoms have improved. 05:48 Reassessment: Patient appears in no apparent distress at this time. Patient and/or bm8 family updated on plan of care and expected duration. Pain level reassessed. Patient is alert, oriented x 3, equal unlabored respirations, skin warm/dry/pink. Patient denies pain at this time. Patient states feeling better. Patient states symptoms have improved. Vital Signs: 01:40 BP 159 / 107; Pulse 75; Resp 16 S; Temp 98.6(O); Pulse Ox 99% on R/A; Weight 63.5 kg lg3 (R); Height 5 ft. 2 in. (R); Pain 8/10; 05:04 BP 131 / 88; Pulse 71; Resp 17 S; Temp 98.4(O); Pulse Ox 100% on R/A; lg3 05:48 BP 135 / 84; Pulse 76; Resp 17; Temp 98.4; Pulse Ox 100% ; Pain 0/10; bm8 01:40 Body Mass Index 25.61 (63.50 kg, 157.48 cm) lg3 01:40 Pain Scale: Adult lg3 05:48 Pain Scale: Adult bm8 Feliz Coma Score: 02:24 Eye Response: spontaneous(4). Motor Response: obeys commands(6). Verbal Response: bm8 oriented(5). Total: 15. 04:58 Eye Response: spontaneous(4). Motor Response: obeys commands(6). Verbal Response: sp4 oriented(5). Total: 15. 05:48 Eye Response: spontaneous(4). Motor Response: obeys commands(6). Verbal Response: bm8 oriented(5). Total: 15. ED Course: 01:39 Patient arrived in ED. rv1 01:40 Maintain EMS IV. Dressing intact. Site clean \T\ dry. Gauge \T\ site: 24 R Hand. lg 3 01:52 Mario Santo MD is Attending Physician. sp4 01:54 Tony Zaman RN is Primary Nurse. bm8 02:11 Inserted saline lock: 20 gauge in right antecubital area, using aseptic technique. oe Blood collected. 02:24 No provider procedures requiring assistance completed. Initial lab(s) drawn, by ED bm8 staff, sent to lab. 02:24 Patient has correct armband on for positive identification. Bed in low position. Call bm8 light in reach. Side rails up X 1. Pulse ox on. NIBP on. Door closed. Noise minimized. Visitors limited. Lights dimmed. Warm blanket given. Verbal reassurance given. 02:28 Triage completed. lg3 02:28 Arm band placed on right wrist. lg3 02:56 CT Abd/Pelvis - IV Contrast Only In Process Unspecified. EDMS 05:02 Luis Wen MD is Referral Physician. sp4 05:48 IV discontinued, intact, bleeding controlled, No redness/swelling at site. Pressure bm8 dressing applied. 05:48 Provided Education on: post er care. bm8 Administered Medications: 02:19 Drug: NS 0.9% IV 1000 ml IV at 1 bolus Per protocol; 1000 mL bolus Route: IV; Rate: 1 bm8 bolus; Site: right antecubital; 05:52 Follow up: IV Status: Completed infusion; IV Intake: 1000ml bm8 02:19 Drug: Famotidine IVP 20 mg IVP once; dilute with 10 mL 0.9% NaCl; give over 2 minutes bm8 Route: IVP; Site: right antecubital; 05:02 Follow up: Response: No adverse reaction lg3 02:19 Drug: TORadol - Ketorolac IVP 15 mg IVP once Route: IVP; Site: right antecubital; bm8 05:02 Follow up: Response: No adverse reaction lg3 02:19 Drug: Ondansetron IVP 4 mg IVP once; over 2 minutes Route: IVP; Site: right antecubital;bm8 05:03 Follow up: Response: No adverse reaction lg3 02:20 Drug: morphine IVP or IV 4 mg IVP once over 4 mins Route: IVP; Infused Over: 4 mins; bm8 Site: right antecubital; 05:02 Follow up: Response: No adverse reaction lg3 02:20 Drug: diphenhydrAMINE IVP 50 mg IVP once Route: IVP; Site: right antecubital; bm8 05:02 Follow up: Response: No adverse reaction lg3 04:58 Not Given (Physician Discretion): hyoscyamine0.125 mg 0.25 mg Sublingual once sp4 05:01 Drug: Promethazine IM 50 mg IM once Route: IM; Site: left deltoid; lg3 05:51 Follow up: Response: No adverse reaction bm8 05:01 Drug: Dicyclomine IM 20 mg IM once Route: IM; Site: right deltoid; lg3 05:51 Follow up: Response: No adverse reaction bm8 05:02 CANCELLED (Physician Discretion): ns 0.9% 1000 ml IV at 1 bolus Per protocol; 1000 mL lg3 bolus Medication: 02:24 VIS not applicable for this client. bm8 Intake: 05:52 IV: 1000ml; Total: 1000ml. bm8 Outcome: 05:02 Discharge ordered by . sp4 05:48 Discharged to home ambulatory, bm8 05:48 Condition: improved 05:48 Discharge instructions given to patient, Instructed on discharge instructions, follow up and referral plans. medication usage, safety practices, Demonstrated understanding of instructions, follow-up care, medications, Prescriptions given X 1, 05:50 Patient left the ED. bm8 Signatures: Dispatcher [employer] EDMS Chris Eagle Lacie, RN RN lg3 K[employer] rv1 Mario Santo MD MD sp4 Zaman, Tony, RN RN bm8
[2023-06-01 06:26] VITALS: BP 135/84; TEMP 98.4; O2SAT 100
--- NOTE | 2023-06-01 10:48 | RAD REPORT ---
EXAM DESCRIPTION: CT - Abdomen Pelvis W Contrast - 06/01/2023 6:09 am CLINICAL HISTORY: The patient is 33 years old and is Female; ABD PAIN, NAUSEA, VOMITING TECHNIQUE: Axial computed tomography images of the abdomen and pelvis with intravenous contrast. S agittal and coronal reformatted images were created and reviewed. This CT exam was performed using one or more of the following dose reduction techniques: automated exposure control, adjustment of t he mA and/or kV according to patient size, and/or use of iterative reconstruction technique. COMPARISON: No relevant prior studies available. FINDINGS: Lung bases: Unremarkable. No mass. No consolidation. ABDOMEN: Liver: Unremarkable. No mass. Gallbladder and bile ducts: Gallbladder is surgically absent. No ductal dilation. Pancreas: Unremarkable. No mass. No ductal dilation. Spleen: Unremarkable. No splenomegaly. Adrenals: Unremarkable. No mass. Kidneys and ureters: Unremarkable. No solid mass. No hydronephrosis. Stomach and bowel: Unremarkable. No obstruction. No mucosal thickening. PELVIS: Appendix: The appendix is normal. Bladder: Bladder is distended. Reproductive: Unremarkable as visualized. ABDOMEN and PELVIS: Intraperitoneal space: Unremarkable. No free air. No significant fluid collection. Bones/joints: No acute fracture. No dislocation. Soft tissues: Unremarkable. Vasculature: Unremarkable. No abdominal aortic aneurysm. Lymph nodes: Unremarkable. No enlarged lymph nodes. IMPRESSION: No acute finding in the abdomen/pelvis. Electronically signed by: Mani Cardenas MD 06/01/2023 03:29 AM CDT Due to temporary technical issues with the PACS/Fluency reporting system, reports are being signed by the in house radiologist without review as a courtesy to ensure prompt reporting. The interpreting r adiologist is fully responsible for the content of the report.
== END 2023-06-01 05:50 | disposition home or self-care (01) ==
LOC: ER 01:33
DX: K58.8 Other irritable bowel syndrome (principal); R10.84 Generalized abdominal pain
CPT/HCPCS: 36415; 74177; 80053; 81001; 81025; 83690; 85025; 96361; 96372; 96374; 96375; 99284; J0500; J1200; J2405; J2550; J7030; Q9967

== ENCOUNTER 2023-06-02 05:52 | Emergency (ER) | payer BC ==
--- OUTSIDE RECORDS SUMMARY | 2023-06-02 05:56 | XMS REPORT | Continuity of Care Document ---
Author Name Unknown Address [address] [facility] [address] [place] [address] 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 Primary Care Physician Anselmo Caballero DO Attending Clinician [phone] GIOVANY HAGER Attending Clinician Unavailable CAIT BRAGG Attending Clinician Unavailable Jose Maki Attending Clinician Unavailable LAB90 Attending Clinician Unavailable Marylou Johnson NP Attending Clinician [phone] Ted Schultz Attending Clinician Unavailable Kaelyn Peguero Attending Clinician Unavailable Physician, No Primary or Family Admitting Clinic monse Unavailable UNDEFINED Admitting Clinician Unavailable Payers Payer Name Policy Type Policy Number Effective Date Expirati on Date Source [place] [id number] 2022 00:00:00 2023 00:00:00 BCBS 2 [id number] 2023 00:00:00 Problems Condition Name Condition Details [...] comments 2022-02- 00:00: 00 Dystonic reactions [facility] Scopolam ine Propensi ty to adverse reaction s Active Other - See comments 2022-02 00:00: 00 Visual changes [facility] HALOPERI DOL DRUG INGREDI Active Med Other-Cmnt 2022-02 00:00: 00 [facility] SCOPOLAM INE DRUG INGREDI Active Other-Cmnt 2022-02 00:00: 00 [facility] haloperi dol DA Active SV HIVES 06-11 00:00: 00 [facility] scopolam ine DA Active SV HIVES 06-11 00:00: 00 [facility] No Known Allergie s DA Active U 02-09 00:00: 00 [facility] No Known Allergie s DA Active U 06-24 00:00: 00 [facility] No Known Allergie s DA Active U 06-24 00:00: 00 [facility] scopolam ine DA Active PR 05-19 00:00: 00 [facility] scopolam ine DA Active PR RASH-ES 05-19 00:00: 00 [facility] No Known Allergie s DA Active U 07-29 00:00: 00 [facility] No Known Allergie s DA Active U 07-29 00:00: 00 [facility] No Known Drug Intolera nces DA Active U 10-24 00:00: 00 [facility] No Known Drug Intolera nces DA Active U NONE 10-24 00:00: 00 [facility] NO KNOWN ALLERGIE S Drug Class Active [facility] Social History Social Habit Start Date [...] Stop Date Source Tobacco smoking consumption unknown [facility] Ex-smoker 2023-01-27 00:00:00 2023-01-27 00:00:00 Laura Enrique - External Medications Ordered Medication Name Filled Medication Name Start Date Stop Date Current Medication? Ordering Clinician Indication Dosage Frequency Signature (SIG) Comments Components Source proCHLORper azine (COMPAZINE) injection 10 mg 05-29 19:45: 00 05-29 19:10 :00 No 10mg 10 mg, Slow IV Push, ONCE, 1 dose, On 05/30/23 at 1445, RONNIE [facility] diphenhydrA MINE (BENADRYL) injection 50 mg 05-29 19:00: 00 05-29 19:11 :00 No 50mg 50 mg, Slow IV Push, ONCE, 1 dose, On 05/30/23 at 1400, STAT [facility] Brexpiprazo le (Rexulti) 2 MG oral Tablet 02-24 11:47: 34 Yes 2mg Take 2 mg by mouth daily. Laura [facility] HYDROcodone -Acetaminop hen 10-325 MG oral Tablet 02-24 00:00: 00 Yes [id number] 1{tbl} Q.5D Take 1 tablet by mouth 2 times daily as needed for pain. Laura [facility] Methocarbam ol 500 MG oral Tablet 02-24 00:00: 00 Yes [id number] 500mg QD Take 1 tablet (500 mg [...] e HCl (PHENERGAN) 25 MG oral Tablet - 00:00: 00 Yes [id number] 25mg QD Take 1 tablet (25 mg total) by mouth daily as needed for nausea. [facility] Valacyclovi r HCl (Valtrex) 500 MG oral Tablet 2022-02 00:00: 00 Yes [id number] 500mg Take 1 tablet (500 mg total) [...] dose, On Thu12/26/22 at 2030, 1 mL [facility] penicillin g benzathine (BICILLIN L-A) injection 1.2 Million Units 2022-02 01:45: 00 12-27 01:53 :00 No 1.210 1.2 Million Units, Intramuscu lar, ONCE, 1 dose, On Thu12/26/22 at 1945, RONNIE
Re ason for Anti-Infec tive: Empiric Therapy for Suspected Infection< br>Empiric Therapy Site: HEENT
D uration of therapy: Once (ED) [facility] acetaminoph en (TYLENOL) tablet 650 mg 2022-02 01:45: 00 12-27 01:50 :00 No 650mg 650 mg, Oral, ONCE, 1 dose, On Thu12/26/22 at 1945, RONNIE [facility] ketorolac (TORADOL) injection 30 mg 2022-02 00:45: 00 12-27 00:59 :00 No 30mg 30 mg, Intramuscu lar, ONCE, 1 dose, On Thu12/26/22 at 1845, RONNIE [facility] hydrocortis one 1 mg/4 mL in nystatin suspension- diphenhydrA MINE solution suspension 2022-02 00:00: 00 12-30 05:59 :00 No [id number] 15mL Take 15 mL by mouth every 6 (six) hours as needed for Pain (scale 4-6) for up to 3 days. [facility] Famotidine (PEPCID) 20 MG oral tablet 2022-02 00:00: 00 02-24 00:00 :00 No 20mg Take 1 tablet (20 mg total) by mouth daily. Laura hall Paroxetine HCl 40 MG oral Tablet 8-03 00:00: 00 Yes 40mg Take 1 tablet (40 mg total) by mouth every morning. [facility] Alprazolam (Xanax) 0.5 MG oral Tablet 7- 00:00: 00 02-24 00:00 :00 No .5mg [...] Systolic blood pressure 2023-05-30 20:00:00 145 mm[Hg] [facility] Diastolic blood pressure 2023-05-30 20:00:00 104 mm[Hg] [facility] Heart rate 2023-05-30 20:00:00 72 /min [facility] Respiratory rate 2023-05-30 20:00:00 17 /min [facility] Oxygen saturation in Arterial blood by Pulse oximetry 2023-05-30 20:00:00 99 /min [facility] Body temperature 2023-05-30 18:54:00 35.94 Caitlyn [facility] Body height 2023-05-30 18:54:00 157.5 cm [facility] Body weight 2023-05-30 18:54:00 63.504 kg [facility] BMI 2023-05-30 18:54:00 25.61 kg/m2 [facility] Systolic blood pressure 2023-02-24 17:40:00 110 mm[Hg] [...] Systolic blood pressure 2022-12-27 02:16:00 111 mm[Hg] [facility] Diastolic blood pressure 2022-12-27 02:16:00 82 mm[Hg] [facility] Heart rate 2022-12-27 02:16:00 93 /min [facility] Body temperature 2022-12-27 02:16:00 37.56 Caitlyn [facility] Respiratory rate 2022-12-27 02:16:00 20 /min [facility] Oxygen saturation in Arterial blood by Pulse oximetry 2022-12-27 02:16:00 96 /min [place] [facility] Body height 2022-12-26 23:57:00 157.5 cm [facility] Body weight 2022-12-26 23:57:00 58.968 kg [facility] BMI 2022-12-26 23:57:00 23.78 kg/m2 [facility] Procedures Procedure Date / Time Performed Performing Clinicia n Source CBC WITH DIFF 2022-12-27 01:49:00 Marylou Johnson [facility] RAPID STREP SCREEN FOR GROUP A 2022-12-27 00:59:00 Marylou Johnson [facility] NOTICE OF PRIVACY PRACTICES 2022-12-26 23:28:27 Doctor Unassigned, [place] [facility] CONSENT/REFUSAL FOR DIAGNOSIS AND TREATMENT 2022-12-26 23:27:35 Doctor Unassigned, [place] [facility] Encounters Start Date/Time End Date/Time Encounter Type Admission Type Attending Clinicians Care Facility Care Department Encounter ID Source 2020-06-24 15:53:22 Inpatient [facility] [id number] [facility] 2020-05-19 11:42:02 Inpatient [facility] [id number] [facility] 2019-07-30 21:08:00 Inpatient [facility] ER [id number] [facility] 2023-05-30 13:55:00 2023-05-30 15:41:00 Emergency Anselmo Caballero [facility] [id number] [facility] 2023-05-04 14:30:00 2023-05-04 14:30:00 Outpatient PREZAS, GIOVANY PIZANO LAURA [id number] [facility] 2023-05-04 11:15:00 2023-05-04 11:15:00 Outpatient PREZAS, GIOVANY PIZANO LAURA [id number] [facility] 2023-05-04 11:00:00 2023-05-04 11:00:00 Outpatient LOUISE BRAGGR [facility] [id number] [facility] 2023-04-22 00:00:00 2023-04-22 00:00:00 Outpatient PREZAS, GIOVANY DIALLOHUMPHREY PIZANO [id number] [facility] 2023-04-14 02:00:00 2023-04-14 03:25:00 Emergency EM MakiJose horn [facility] [id number] 26 [facility] 2023-04-10 00:00:00 2023-04-10 00:00:00 Outpatient PREZAS, GIOVANY DIALLOHUMPHREY PIZANO [id number] [facility] 2023-03-27 09:00:00 2023-03-27 09:00:00 Outpatient PREZAS, GIOVANY LAURA PIZANO [id number] [facility] 2023-03-27 00:00:00 2023-03-27 00:00:00 Outpatient PREZAS, GIOVANY LAURA PIZANO [id number] [facility] 2023-03-27 00:00:00 2023-03-27 00:00:00 Outpatient PREZAS, GIOVANY LAURA PIZANO [id number] [facility] 2023-03-26 00:00:00 2023-03-26 00:00:00 Outpatient PREZAS, GIOVANYLEDY PIZANO [id number] [facility] 2023-03-26 00:00:00 2023-03-26 00:00:00 Outpatient PREZAS, GIOVANY LAURA PIZANO [id number] [facility] 2023-03-25 14:00:00 2023-03-25 14:00:00 Outpatient PREZAS, GIOVANY LAURA PIZANO [id number] [facility] 2023-03-10 00:00:00 2023-03-10 00:00:00 Outpatient PREZAS, GIOVANY PIZANO LAURA [id number] [facility] 2023-03-09 00:00:00 2023-03-09 00:00:00 Outpatient PREZAS, GIOVANY PIZANO LAURA [id number] [facility] 2023-03-04 00:00:00 2023-03-04 00:00:00 Outpatient PREZAS, GIOVANY PIZANO LAURA [id number] [facility] 2023-03-03 00:00:00 2023-03-03 00:00:00 Outpatient PREZAS, GIOVANY PIZANO LAURA [id number] [facility] 2023-03-02 00:00:00 2023-03-02 00:00:00 Outpatient PREZAS, GIOVANY LAURA PIZANO [id number] [facility] 2023-03-02 00:00:00 2023-03-02 00:00:00 Outpatient PREZAS, GIOVANY PIZANO LAURA [id number] [facility] 2023-03-02 00:00:00 2023-03-02 00:00:00 Outpatient PREZAS, GIOVANY DIALLOHUMPHREY PIZANO [id number] [facility] 2023-03-02 00:00:00 2023-03-02 00:00:00 Outpatient PREZAS, GIOVANY LAURA PIZANO [id number] [facility] 2023-02-27 00:00:00 2023-02-27 00:00:00 Outpatient PREZAS, GIOVANY LAURA PIZANO [id number] [facility] 2023-02-25 00:00:00 2023-02-25 00:00:00 Outpatient PREZAS, GIOVANY LAUAR PIZANO [id number] Laura [facility] 2023-02-24 11:30:00 2023-02-24 11:30:00 Outpatient PREZAS, GIOVANY LAURA PIZANO [id number] [facility] 2023-02-18 00:00:00 2023-02-18 00:00:00 Outpatient PREZAS, GIOVANY LAURA PIZANO [id number] [facility] 2023-02-12 00:00:00 2023-02-12 00:00:00 Outpatient PREZAS, GIOVANY PIZANO [id number] Laura Enrique 2023-02-12 00:00:00 2023-02-12 00:00:00 Outpatient PREZAS, GIOVANY PIZANO [id number] Laura Enrique 2023-02-11 00:00:00 2023-02-11 00:00:00 Outpatient PREZAS, GIOVANY PIZANO [id number] [facility] 2023-01-28 00:00:00 2023-01-28 00:00:00 Outpatient PREZAS, GIOVANY PIZANO [id number] [facility] 2023-01-28 00:00:00 2023-01-28 00:00:00 Outpatient PREZAS, GIOVANY PIZANO [id number] [facility] 2023-01-27 13:00:00 2023-01-27 13:00:00 Outpatient LAB90 LAURA PIZANO [id number] [facility] 2023-01-27 10:45:00 2023-01-27 10:45:00 Outpatient PREZAS, GIOVANY PIZANO [id number] [facility] 2023-01-27 00:00:00 2023-01-27 00:00:00 Outpatient PREZAS, GIOVANY PIZANO [id number] [facility] 2022-12-26 17:57:00 2022-12-26 20:20:00 Emergency Marylou Johnson [facility] [id number] [facility] 2022-12-26 17:57:00 2022-12-26 20:20:00 Emergency X MARYLOU JOHNSON [facility] ERT [id number] [facility] 2022-06-11 11:10:00 2022-06-11 12:41:00 Emergency EM Ted Schultz [facility] [id number] 63 [facility] 2021-02-09 23:10:00 2021-02-10 00:19:00 Emergency EM Kaelyn Peguero [facility] [id number] [facility] Results Test Description Test Time Test Comments Results Result Co mments Source [facility] [facility], [address], [place], [address], POC [id number] 05:04:00* Test Item Value Reference Range Interpretation [...] PT value based on a regression analysis. [facility] [facility], [address], [place], [address], URINE DRUG SCREEN [id number] 02:46:00* Test Item Value Reference Range Interpretation [...] results should not beused for non-medical purposes. [facility] [facility], [address], [place], [address], POC,HCG URINE, [id number] 02:38:00* Test Item Value Reference Range Interpretation Comme nts POC,HCG URINE, QUALITATIVE ( test code = EDHCGU) Negative Negative [facility] [facility], [address], [place], [address], URINALYSIS [id number] 02:32:00* Test Item Value Reference Range Interpretation [...] ESTERASE (test code = EDLEUK) Negative Negative [facility] [facility], [address], [place], [address], - CT ABD PELVIS W/O [id number] 02:32:00 [facility] 1990 Sex: FName: BREANNA JIMENEZ [facility] : 1990 Age/S: 32 / F [address] Unit #: [id number] Loc: [place] [address] Phys: Jose Maki MD Acct: [id number] Dis Date: Status: PRE ER PHONE #: Exam Date: 04/14/2023226 FAX #: Reason: epigastric abd pain suspect gastroparesis EXAMS: CPT CODE: [id number] CT ABD PELVIS W/O CONT 03909 - CT ABD PELVIS W/O CONT INDICATION [...] 1 Signed Report (CONTINUED) Name: BREANNA JIMENEZ [facility] : 1990 Age/S: 32 / F [address] Unit #: [id number] Loc: [place] [address] Phys: Jose Maki MD Acct: [id number] Dis Date: Status: PRE ER PHONE #: ExamDate: 04/14/2023 0227 FAX #: Reason: epigastric abd pain suspect gastroparesis EXAMS: CPT CODE: [id number] CT ABD PELVIS W/O CONT 00717 (Continued) CC: Jose Maki MD Technologist:Milagro Rosen RT (R) CT CTDI: 8 DLP: 395 Trnscb Date/Time: 04/14/2023 (231) [email or web address] Orig Print D/T: S:04/14/2023 (6) PAGE 2 Signed ReportCOMPREHENSIVE METABOLIC [id number] 02:31:00* Test Item Value Reference Range Interpretation [...] = EDALP) 127 U/L 42-141 N [facility], [address], [address], POC,[id number] 02:31:00* Test Item Value Reference Range Interpretation Comme [facility] POC,AMYLASE (test code = EDAMY) 118 U/L 14-97 H [facility], [address], [address], COMPLETE BLOOD COUNT (CBC)2023-04-14 02:21:00* Test Item Value Reference Range Interpretation Comme [facility] POC,WHITE BLOOD CELL (test c ode [...] code = EDMPVP) 13.3 fL 7.9-13.3 N [facility], [address], [place], [address], UA RFLX MICROSCOPIC [id number] 11:54:00* Test Item Value Reference Range Interpretation [...] Suprapubic PainURINE SOURCE: CLEAN CATCH URINEUR HCG [id number] 11:54:00* Test Item Value Reference Range Interpretation Comme nts UR HCG QUAL (test code = HCGQLU) NEGATIVE NEGATIVE Indication for culture: Suprapubic PainURINE SOURCE: CLEAN CATCH URINE COMPREHENSIVE METABOLIC [id number] 11:49:00* Test Item Value Reference Range Interpretation [...] code = ALKP) 105 U/L 45-117 N [id number] 11:49:00* Test Item Value Reference Range Interpretation Comme nts AMYLASE (test code = PARAM) 73 IU/L 25-115 N [id number] 11:49:00* Test Item Value Reference Range Interpretation Comme nts LIPASE (test code = LIP) 134 U/L 73-393 N CBC W/AUTO [id number] 11:33:00* Test Item Value Reference Range Interpretation [...] code = RBCM) NO NORMAL COMPREHENSIVE METABOLIC [id number] 16:11:00* Test Item Value Reference Range Interpretation [...] > or = 60 ml/min/1.73M2IF PATIENT IS -JAPANESE, MULTIPLY REPORTED RESULT BY1.21. [Automated message] The [...] code = ALKP) 139 U/L 45-117 H [id number] 16:11:00* Test Item Value Reference Range Interpretation Comme nts LIPASE (test code = LIP) 108 U/L 73-393 N URINALYSIS W REFLEX [id number] 16:05:00* Test Item Value Reference Range Interpretation [...] UAMICRO) Y= DO UA MICRO UR HCG [id number] 16:05:00* Test Item Value Reference Range Interpretation Comme nts UR HCG QUAL (test code = HCGQLU) NEGATIVE NEGATIVE URINALYSIS W REFLEX [id number] 16:05:00* Test Item Value Reference Range Interpretation [...] = UAMICRO) Y= DO UA MICRO UA [id number] 16:05:00* Test Item Value Reference Range Interpretation Comme nts UA WBC (test code = WBCU) 0-2 #/hpf 0-5 UA RBC (test code = RBCU) 0-2 #/hpf 0-5 UA EPITHELIAL CELLS (test co de = EPIU) 2+ /hpf NEG,FEW A UA BACTERIA (test code = BACU) FEW /hpf NEGATIVE A UA AMORPHOUS SEDIMENT (test code = AMORU) FEW /hpf NEG,FEW UR HCG [id number] 16:05:00* Test Item Value Reference Range Interpretation Comme nts UR HCG QUAL (test code = HCGQLU) NEGATIVE NEGATIVE URINALYSIS W REFLEX [id number] 16:05:00* Test Item Value Reference Range Interpretation [...] UAMICRO) Y= DO UA MICRO UR HCG [id number] 16:05:00* Test Item Value Reference Range Interpretation Comme nts UR HCG QUAL (test code = HCGQLU) NEGATIVE NEGATIVE DRUGS OF ABUSE [id number] 16:01:00* Test Item Value Reference Range Interpretation Comme nts UR COCAINE (test code = COCAU) NEGATIVE ng/ml NEGATIVE UR CANNABINOIDS (test code = CANU) POSITIVE ng/ml NEGATIVE A VALUE EXCEEDS CRITICAL LEVEL. CRITICAL VALUE CALLEDTO AND CRITICAL VALUE READ BACK BY HUBER DOWNING RN [id number] 06/24/20. Chas Dixon POSITIVE URINE DRUG SCREEN [...] 300 NG/MLPHENCYCLIDINE 25 NG/ML URINALYSIS W REFLEX [id number] 15:58:00* Test Item Value Reference Range Interpretation [...] NEEDED? (test code = UAMICRO) UR HCG [id number] 15:58:00* Test Item Value Reference Range Interpretation Comme nts UR HCG QUAL (test code = HCGQLU) NEGATIVE NEGATIVE CBC W/AUTO [id number] 15:52:00* Test Item Value Reference Range Interpretation [...] = RBCM) NO NORMAL URINALYSIS W REFLEX [id number] 13:00:00* Test Item Value Reference Range Interpretation [...] Y= DO UA MICRO UA ICTOTEST FOR [id number] 13:00:00* Test Item Value Reference Range Interpretation Comme nts UA ICTOTEST FOR BILIRUBIN (t est code = ICTOU) POSITIVE NEGATIVE A UA [id number] 13:00:00* Test Item Value Reference Range Interpretation Comme nts UA WBC (test code = WBCU) 0-2 #/hpf 0-5 UA RBC (test code = RBCU) 3-5 #/hpf 0-5 UA EPITHELIAL CELLS (test co de = EPIU) FEW /hpf NEG,FEW UA BACTERIA (test code = BACU) FEW /hpf NEGATIVE A UA MUCUS (test code = MUCU) 1+ /hpf NEG,FEW A UR HCG [id number] 13:00:00* Test Item Value Reference Range Interpretation Comme nts UR HCG QUAL (test code = HCGQLU) NEGATIVE NEGATIVE DRUGS OF ABUSE [id number] 12:57:00* Test Item Value Reference Range Interpretation [...] 300 NG/MLPHENCYCLIDINE 25 NG/ML URINALYSIS W REFLEX [id number] 12:56:00* Test Item Value Reference Range Interpretation [...] Y= DO UA MICRO UA ICTOTEST FOR [id number] 12:56:00* Test Item Value Reference Range Interpretation Comme nts UA ICTOTEST FOR BILIRUBIN (t est code = ICTOU) POSITIVE NEGATIVE A UR HCG [id number] 12:56:00* Test Item Value Reference Range Interpretation Comme nts UR HCG QUAL (test code = HCGQLU) NEGATIVE NEGATIVE URINALYSIS W REFLEX [id number] 12:53:00* Test Item Value Reference Range Interpretation [...] UAMICRO) Y= DO UA MICRO UR HCG [id number] 12:53:00* Test Item Value Reference Range Interpretation Comme nts UR HCG QUAL (test code = HCGQLU) NEGATIVE NEGATIVE URINALYSIS W REFLEX [id number] 12:53:00* Test Item Value Reference Range Interpretation [...] UAMICRO) Y= DO UA MICRO UR HCG [id number] 12:53:00* Test Item Value Reference Range Interpretation Comme nts UR HCG QUAL (test code = HCGQLU) NEGATIVE NEGATIVE - XR ABDOMEN [id number] 12:16:00 [facility] 1990 Sex: F FAX: Sawyer Centeno II [place]: St: PRE Name: BREANNA QUEEN [facility] : 1990 Age/S: 30/F [address] Unit #: [id number] Loc: [place] [address] Phys: Sawyer Centeno II, MD Acct: [id number] Dis Date: Status: PRE ER PHONE #: Exam Date: 05/19/2020 1212 FAX #: Reason: abdominal pain EXAMS: CPT CODE: [id number] XR ABDOMEN 2V 92903 - XR ABDOMEN 2V PROVIDED REASON FOR [...] By: [email or web address] Orig Print D/T: S: 05/19/2020 (3310) PAGE 1 Signed ReportBASIC METABOLIC PANEL 2020-05-19 [...] > or = 60 ml/min/1.73M2IF PATIENT IS -JAPANESE, MULTIPLY REPORTED RESULT BY1.21. [Automated message] The system which generated this result transmitted reference range: >=60. The reference range was not used to interpret this result as normal/abnormal. CREATININE (test code = CREAT) 0.64 mg/dl 0.55-1.02 N CALCIUM (test code = CA) 9.8 mg/dL 8.5-10.1 N LIVER [id number] 12:08:00* Test Item Value Reference Range Interpretation [...] code = ALKP) 119 U/L 45-117 H [id number] 12:08:00* Test Item Value Reference Range Interpretation Comme nts LIPASE (test code = LIP) 67 U/L 73-393 L CBC W/AUTO [id number] 11:43:00* Test Item Value Reference Range Interpretation [...] = RBCM) NO NORMAL URINALYSIS W REFLEX [id number] 22:06:00* Test Item Value Reference Range Interpretation [...] MUCU) 2+ /hpf NEG,FEW A BASIC METABOLIC [id number] 21:54:00* Test Item Value Reference Range Interpretation [...] > or = 60 ml/min/1.73M2IF PATIENT IS -JAPANESE, MULTIPLY REPORTED RESULT BY1.21. CREATININE (test code = CREAT) 0.70 mg/dL 0.51-0.95 N CALCIUM (test code = CA) 9.3 mg/dL 8.5-10.1 N LIVER [id number] 21:54:00* Test Item Value Reference Range Interpretation [...] code = ALKP) 69 U/L 50-136 N [id number] 21:54:00* Test Item Value Reference Range Interpretation Comme nts LIPASE (test code = LIP) 63 U/L 73-393 L BASIC METABOLIC [id number] 21:53:00* Test Item Value Reference Range Interpretation [...] > or = 60 ml/min/1.73M2IF PATIENT IS -JAPANESE, MULTIPLY REPORTED RESULT BY1.21. CREATININE (test code = CREAT) 0.70 mg/dL 0.51-0.95 N CALCIUM (test code = CA) 9.3 mg/dL 8.5-10.1 N LIVER [id number] 21:53:00* Test Item Value Reference Range Interpretation [...] ( test code = ALKP) U/L 50-136 [id number] 21:53:00* Test Item Value Reference Range Interpretation Comme nts LIPASE (test code = LIP) 63 U/L 73-393 L BASIC METABOLIC [id number] 21:52:00* Test Item Value Reference Range Interpretation [...] > or = 60 ml/min/1.73M2IF PATIENT IS -JAPANESE, MULTIPLY REPORTED RESULT BY1.21. CREATININE (test code = CREAT) 0.70 mg/dL 0.51-0.95 N CALCIUM (test code = CA) 9.3 mg/dL 8.5-10.1 N LIVER [id number] 21:52:00* Test Item Value Reference Range Interpretation [...] ( test code = ALKP) U/L 50-136 [id number] 21:52:00* Test Item Value Reference Range Interpretation Comme nts LIPASE (test code = LIP) 63 U/L 73-393 L BASIC METABOLIC [id number] 21:51:00* Test Item Value Reference Range Interpretation [...] > or = 60 ml/min/1.73M2IF PATIENT IS -[place], MULTIPLY REPORTED RESULT BY1.21. CREATININE (test code = CREAT) 0.70 mg/dL 0.51-0.95 N CALCIUM (test code = CA) 9.3 mg/dL 8.5-10.1 N LIVER [id number] 21:51:00* Test Item Value Reference Range Interpretation [...] ( test code = ALKP) U/L 50-136 [id number] 21:51:00* Test Item Value Reference Range Interpretation Comme nts LIPASE (test code = LIP) 63 U/L 73-393 L BASIC METABOLIC [id number] 21:49:00* Test Item Value Reference Range Interpretation [...] = CA) 9.3 mg/dL 8.5-10.1 N LIVER [id number] 21:49:00* Test Item Value Reference Range Interpretation [...] ( test code = ALKP) U/L 50-136 [id number] 21:49:00* Test Item Value Reference Range Interpretation Comme nts LIPASE (test code = LIP) 63 U/L 73-393 L BASIC METABOLIC [id number] 21:48:00* Test Item Value Reference Range Interpretation [...] = CA) 9.3 mg/dL 8.5-10.1 N LIVER [id number] 21:48:00* Test Item Value Reference Range Interpretation [...] ( test code = ALKP) U/L 50-136 [id number] 21:48:00* Test Item Value Reference Range Interpretation Comme nts LIPASE (test code = LIP) U/L 73-393 BASIC METABOLIC [id number] 21:46:00* Test Item Value Reference Range Interpretation [...] (test code = CA) mg/dL 8.5-10.1 LIVER QUKKDYP8021-16-16 21:46:00* Test Item Value Reference Range Interpretation [...] ( test code = ALKP) U/L 50-136 [id number] 21:46:00* Test Item Value Reference Range Interpretation Comme nts LIPASE (test code = LIP) U/L 73-393 CBC W/AUTO RRFF6965-49-09 21:43:00* Test Item Value Reference Range Interpretation [...] Notes Date/Time Note Provider Source 2023-05-30 15:40:45 bZZBu6c0HcZap9zzPHSfugzqgvRiwyBDv0gNi89q dCR jXnnfoOEcOCVvCJDsYN5w3873-37-25X32:40:45For matting of this note might be different from the original.PT D/C home. GCS15, VS stable. Given D/C paperwork. Pt ambulatory at time of discharge. Pt educated on med usage, follow up care, s/s worsening condition, need for hydration. Pt verbalized understanding.Pt ambulated from ED in NAD, pt to waiting room to await ride home 40021-7Ygkkyulff department BgiqVU9458-00-10A02:41:05Emergency department NoteTXT1.2.840.696083.1.13.104.2.7.2.998339 |[id number] for patient pcmm83894-9PffvMIFLIZXVATBKlfzklwxh C-CDA narrative [id number] E Linkes RNUT[address] SgskBphxwsgzqBncqmpzcpTCBK1037663607BPUBUSW MIOWNFGRIDOELVH6299-27-80N48:41:051.2.840.1 15633.1.72.3.15|1.2.840.392776.1.13.104.2.7 .2.727879_[id number] Kezia Fox RN [facility] 2023-05-30 13:50:56 buDdISHjSEcjzDoGmVGBYMmo3WbCsrNBPJzykeDZ hNe qX7dJOXfhuPSHrZU+En205312-00-88B51:50:56For matting of this note might be different from the original.Pt to ED via [facility] N/V/Abd pain starting 4days ago worsening this morning.Seen at [facility] this morning and given phenergan and IVF and was DC. Pt states she does not feel better so she came to [facility] ED.4mg zofran IVP and 100mL NS given en route. 65229-0Nddklbine department Triage iuwfQA4646-48-14B60:54:25[facility] Triage noteTXT1.2.840.957942.1.13.104.2.7.2.080539 |[id number] for patient dxhi70966-0Wimbwqxqv department NoteLNNARRATIVEFormatted C-CDA narrative lgyk344398105Qdrcqj R Potter RN[address] UvhdKtqomgnebEmoxogagzEHFB9926822680WHIVWCU LRUTTNKJZHHRGFP7798-83-14N82:54:251.2.840.1 14182.1.72.3.15|1.2.840.402307.1.13.104.2.7 .2.727879_[id number] Nallely Minaya RN [facility] 2023-04-14 02:04:00 PN4173328224vJoR3MZZJkeRZ425Bu1TYDpZ4k2y EK1 oIt/3EVuNCvfBmyosgdTcEkIsJ3qDMhwg1320-17-02 T02:04:00 [facility] ([facility])EMERGENCY PROVIDER REPORTREPORT#:[id number] REPORT STATUS: SignedDATE:04/14/23 TIME: 0204 PATIENT: BREANNA JIMENEZ UNIT #: [id number]#: [id number] ROOM/BED:AGE: 32 SEX: F PCP PHYS: No Primary or Family PhysicianSERVICE AUTHOR: Jose Maki MD * ALL edits or amendments must be made on the electronic/computer document * HPI-Abd Pain F Under 40 Free Text HPI NotesFree Text HPI Ifhfl08-wfya-fph presents with abdominal pain that started around [...] (5.0 - 8.0) 7.0 POC Ur Specif [place] (1.001 - 1.035) 1.025 POC Urine Protein [...] 15 MG X1ED STA 04/13 0208 DC 04/13 Tromethamine IV 04/139 0219 Electrolytic, Caloric, And Elvia Sig/Ayanna Start [...] X1ED STA 04/13 0208 DC / IV 04/139 0219 Metoclopramide HCl 10 MG X1ED STA [...] Pulse Ox 100 04/13 0208 B/P 165/107 / 0208 B/P Mean [...] or a call to 911. at 0504RPT #:[id number] OF [facility] department iydozj7411-27-34X11:04:00H.HHGW68877206-684 1AVAvailable for patient yvbzQDLHSNZJVRAWRN3526-19-17I15:04:38 [facility] 2023-02-24 11:47:47 WVDyomLJE2mWlFaXN4rXy4KYmvGb8z4lQ4LfSP/f Ele 9BBWVmt+x6Q9leQx5IGXl8584-56-58M07:47:47For matting of this note is different from the original.Chief ComplaintPatient presents withFollow-Up Visit1 month follow up visitLauren Solaresectronically signed by Miriam French LVN at 02/24/2023 11:48 AM NSY71725-9Ifjjw GekaKI8877-44-44S36:48:14Nurse NoteTXT1.2.840.132139.1.13.131.2.7.2.359534 |[id number] for patient kyps72277-1Ozrby NoteLNNARRATIVEFormatted C-CDA narrative tjMERCY HOSPITAL BAKERSFIELDElizabethtoriIva Fmpwxu1296 [facility] CenterLHEWHLWZPXFNAUUPJD7439354993LQAN5048-8 :48:141.2.840.054627.1.72.3.15|1.2.8 40.279204.1.13.131.2.7.2.727879_[id number] [facility] 2022-06-11 11:33:00 [id number]/i6pIHdayoqlDsBs2uM6N7akac c+e AFA04dkiLjdE4+IHzWZuBuWVYEVUVTSJz2831-06-71 T11:33:00 [facility] ([facility])EMERGENCY PROVIDER REPORTREPORT#:[id number] REPORT STATUS: SignedDATE:06/11/22 TIME: 1133 PATIENT: BREANNA JIMENEZ UNIT #: [id number]#: [id number] ROOM/BED:AGE: 32 SEX: F PCP PHYS: Undefined [...] Pulse Ox 100 05 1206 B/P 124/78 06/11 1206 B/P Mean [...] % (Auto) (16 - 50 %) 22.9 Wilkin % (Auto) (0.0 - 13.0 %) 9.8 [...] pH (4.6 - 8.0) 7.0 Ur Specific [place] (1.001 - 1.035) 1.020 Urine Protein (NEGATIVE [...] yesterday. After discussion patient states was at [facility] yesterdayand was prescribed compazine/reglan after blood [...] Admin Sodium Chloride 1,000 ML X1ED STA 05/ 1141 DC 05/03 IV 05/03 1240 1155 Sodium Chloride 1,000 ML X1ED STA 05/ 1118 DC 05/03 IV 05/03 1217 1123 [...] or a call to 911. at 1245RPT #:[id number] OF REPORTEDEmergency department sbhkop3704-61-89T64:33:00H.DEVB24869737-175 5AVAvailable for patient zvkfKDMFUCMLZKRFMH0778-50-24F95:45:50 [facility] 2021[facility] 23:43:00 KU7661636970aheMXmYybs1tRkyF2WuuFKRak+JM qb4 DDBrlXRIg6Y7Ro2K3tRn4eEhwEcXFknI31017-84-95 T23:43:00 [facility] ([facility])EMERGENCY PROVIDER REPORTREPORT#:[id number] REPORT STATUS: SignedDATE:02/09/21 TIME: 2342 PATIENT: BREANNA JIMENEZ UNIT #: [id number]#: [id number] ROOM/BED:AGE: 30 SEX: F PCP PHYS: No Primary or Family PhysicianSERVICE AUTHOR: Kaelyn Peguero MD * ALL edits or amendments must be made on the electronic/computer document * NLX-Wox-Zhlp Illness GeneralConfirmed Patient YesPatient Type New patientInitial Greet Date/Time 02/09/21 2312 PresentationChief Complaint Body aches, Chills, Cough Free Text HPI NotesFree Text HPI Jxjfe97-nkdy-pqz female comes emergency room complaining of cough, [...] new symptoms or worsening symptoms. at 0652RPT #:[id number] OF REPORTEDEmelegacy health department cxagmb4442-97-72M59:43:00H.SQJR80443629-379 8AVAvailable for patient mvdmVPJJQGNRBEAABH1558-22-39K47:53:06 [facility] 2020-06-24 15:35:00 NEknvnvisxv51001264RB0ZR+W3Xfypqftg7qiqm n9M bGcw++6/4abljV0jezHdz2+NnE7/WGqk2na0S0k5013 02-13-15T15:35:00 [facility] ([facility])EMERGENCY PROVIDER REPORTREPORT#:[id number] REPORT STATUS: SignedDATE:06/24/20 TIME: 1534 PATIENT: BREANNA JIMENEZ UNIT #: [id number]#: [id number] ROOM/BED:AGE: 30 SEX: F PCP PHYS: No Primary or Family PhysicianSERVICE AUTHOR: Maicol Coy MD * ALL edits or amendments must be made on the electronic/computer document * HPI-Abd Pain F Under 40 GeneralInitial Greet Date/Time 06/24/20 1529PCPDr. [place] PresentationChief Complaint Abdominal pain, Nausea, Vomiting [...] Nothing Free Text HPI NotesFree Text HPI Vucgb95g M2 LMP 19 May 2020 c/o acute on chronic gastroparesis related to IBS and/or THC use for past 2d with nonbloody N/V x 6. She is visiting from [place]. Risk-Abd Pain F Under 40)( Ectopic Risk [...] % (Auto) (16 - 50 %) 48.2 Wilkin % (Auto) (0.0 - 13.0 %) 13.0 [...] pH (4.6 - 8.0) 7.0 Ur Specific [place] (1.001 - 1.035) 1.020 Urine Protein (NEGATIVE [...] the plan for smoking cessation. at 2053RPT #:[id number] OF REPORTEDEmermcgehee hospital department lsspof3090-87-29Q85:35:00H.PJIB13300915-408 8AVAvailable for patient drahOGMVBRBCIJYBYJ9793-13-26O25:53:15 [facility] 2020-05-19 12:11:00 EDumndcpwlz67792054Mau07QjOQtRiUHxMiN1y2 3xk IIl0ctYSLowfJ1wLiagOHa6zOUkDbMW4H7HLEO0h781 02-12-092:11:00 [facility] ([facility])EMERGENCY PROVIDER REPORTREPORT#:[id number] REPORT STATUS: SignedDATE:05/19/20 TIME: 1211 PATIENT: BREANNA QUEEN UNIT #: [id number]#: [id number] ROOM/BED:AGE: 30 SEX: F PCP PHYS: Brayan Winn MDSRACIELICE AUTHOR: Sawyer Centeno II, MD * ALL edits or amendments must be made on the electronic/computer document * HPI-Abd Pain F Under 40 Free Text HPI NotesFree Text HPI NotesThe patient tells me she has a history of gastroparesis but is not a diabetic. She tells me that she is from [facility] and that she has GI specialist in [facility] whose name is Dr. Hendrix. She tells me she used to get Botox injections in her pilorus to treat her pain. She tells me she went to a local hospital yesterday and got several medications for pain but the pain did not getany better. GeneralConfirmed Patient YesInitial Greet Date/Time 05/19/20 1129PCPIn [facility] PresentationChief Complaint Abdominal painHx Obtained From [...] 84 05/19 1128 Resp 18 05/20 1127 Review of Vital [...] pH (4.6 - 8.0) 6.0 Ur Specific [place] (1.001 - 1.035) >= 1.030 Urine Protein [...] (Auto) (16 - 50 %) 9.5 L Wilkin % (Auto) (0.0 - 13.0 %) 4.3 [...] Entered: 05/19/2020 1219 IMPRESSION:No acute process. Location: A99Rmbhcrdipn By: Emily CABALLERO M.D. Imaging StatementRadiographic studies [...] B/P Mean 120 04/ 1128 Temp 36.9 04/10 1128 Pulse 84 04/10 1128 Resp 18 05/19 1128 Last Documented: Result Date Time Pulse Ox 98 04/10 1128 B/P 158/101 04/ 1128 B/P Mean 120 / 1128 Temp 36.9 0410 1128 Pulse 84 [...] HTN F/u with PCP/other doc at 1708RPT #:[id number] OF REPORTEDEmergency department bjsfcx7798-26-52M95:11:00H.LTSC19993274-500 8AVAvailable for patient nvgqALGSOUCNPGZOPM9165-11-74M03:08:49 [facility] 2019-[facility] 21:12:00 VJklouvzhbq523184160so8Qsm+z44of/FcEkEtU j+e EMnGsDDp2dSMSiIFXkGFPH9xbCxVi0lHRa982fH2487 T21:12:00 [facility] ([facility])EMERGENCY PROVIDER REPORTREPORT#:[id number] REPORT STATUS: SignedDATE:07/30/19 TIME: 2111 PATIENT: BREANNA JIMENEZ UNIT #: [id number]#: [id number] ROOM/BED:AGE: 29 SEX: F PCP PHYS: No [...] (Auto) (16.0 - 50.0 %) 15.3 L Wilkin % (Auto) (0.0 - 13.0 %) 5.2 [...] pH (4.6 - 8.0) 6.0 Ur Specific [place] (1.001 - 1.035) 1.017 Urine Protein (NEGATIVE [...] or a call to 911. at 0000RPT #:[id number] OF REPORTEDEmermcgehee hospital department ywzvxv5240-04-38C84:12:00H.KTMF56821598-848 5AVAvailable for patient nshoPANSOZJQKVSJIT1964-39-66A03:00:25 [facility] 2019-07-30 21:12:00 MPbximjxckh102327761U96oYZO2AntNNnWFicZA Mili +4SXR7fPliVbT4SS9tnABLWXAOErYpcr9dJl74lX617 T21:12:00 [facility] ([facility])EMERGENCY PROVIDER REPORTREPORT#:[id number] REPORT STATUS: SignedDATE:07/30/19 TIME: 2111 PATIENT: BREANNA JIMENEZ UNIT #: [id number]#: [id number] ROOM/BED:AGE: 29 SEX: F PCP PHYS: No [...] InterpretationResultsLaboratory Tests 07/30/192128:[Embedded Image Not Available]Laboratory Tests: 06/20 06/20 2150 2129 Chemistry Sodium [...] (Auto) (16.0 - 50.0 %) 15.3 L Wilkin % (Auto) (0.0 - 13.0 %) 5.2 [...] pH (4.6 - 8.0) 6.0 Ur Specific [place] (1.001 - 1.035) 1.017 Urine Protein (NEGATIVE [...] call to 911. at 0000 at 0024RPT #:[id number] OF REPORTHendrick Medical Center department lvmqcb0296-01-78F42:12:00H.FZGQ59364275-325 5AVAvailable for patient mojxDQPGKPKEFJRFIC5650-48-58W94:24:32 [facility]"
[2023-06-02] MEDS ORDERED: KETOROLAC 30 MG/ML INJ ONE (06:08)
[2023-06-02] MEDS ORDERED: NA CHLORIDE 0.9% 1,000 ML ONE (06:08)
[2023-06-02] MEDS ORDERED: ONDANSETRON 4 MG/2 ML VIAL ONE (06:08)
[2023-06-02] MEDS ORDERED: FAMOTIDINE 20 MG/2 ML VIAL IV ONE (06:08)
[2023-06-02 06:13] LABS: Absolute Basophils 0.1 K/uL (0-0.5); Absolute Lymphocytes (CBC) 2.1 K/uL (0.7-4.9); Absolute Neutrophil 5.7 K/uL (1.8-8.0); Basophils % 0.8 % (0-1.3); Eosinophils % 0.2 % (0-4.4); Hematocrit 39.6 % (36.0-45.0); Hemoglobin 12.7 g/dL (12.0-15.0); Lymphocytes % 23.8 % (15.3-44.8); MCH 24.9 pg (27.0-35.0); MCHC 32.1 g/dL (32.0-36.0); MCV 77.5 fL (80-100); MPV 10.8 fL (7.6-11.3); Monocytes % 11.5 % (3.3-12.3); Neutrophils % 63.7 % (41.7-73.7); Platelets 252 thou/uL (152-406); Red Cell Distribution Width 18.4 % (12.1-15.2)
[2023-06-02 06:36] LABS: Albumin 3.8 g/dL (3.4-5.0); Albumin/Globulin Ratio 1.1 (1.1-1.8); Anion Gap 14.8 mEq/L (5.0-15.0); Globulin 3.4 g/dL (2.3-3.5); Potassium 2.8 mEq/L (3.5-5.1); Protein, Total 7.2 g/dL (6.4-8.2)
[2023-06-02] MEDS ORDERED: POTASSIUM CL SA 10 MEQ TAB PO ONE (06:56)
--- NOTE | 2023-06-02 07:46 | ER ---
Nurse's Notes [facility] Name: Efrem Pastor Age: 33 yrs Sex: Female : 1990 Arrival Date: 06/02/2023 Time: 05:52 Bed 17 Private MD: Diagnosis: Nausea with vomiting, unspecified;Hypokalemia;Elevated blood-pressure reading, without diagnosis of hypertension Presentation: 06/01 05:54 Chief complaint: Patient states: N/V AND ABD PAIN X1 WEEK. GOT WORSE LAST NIGHT. WAS IN [facility] ER YESTERDAY FOR SAME ISSUE. Coronavirus screen: At this time, the client does not indicate any symptoms associated with coronavirus-19. Ebola Screen: No symptoms or risks identified at this time. Initial Sepsis Screen: Does the patient meet any 2 criteria? No. Patient's initial sepsis screen is negative. Does the patient have a suspected source of infection? No. Patient's initial sepsis screen is negative. Risk Assessment: Do you want to hurt yourself or someone else? Patient reports no desire to harm self or others. Onset of symptoms was June 01, 2023 at 23:00. Care prior to arrival: Medication(s) given: zofran 4 mg. 05:54 Method Of Arrival: EMS: [facility] 05:54 Acuity: BELINDA 3 j7 Triage Assessment: 05:54 General: Appears in no apparent distress. comfortable, Behavior is calm, cooperative, jj7 appropriate for age. Pain: Complains of pain in epigastric area. GI: Reports epigastric pain, nausea, vomiting. TOP FRAME FITTER: 07:57 LMP N/A - Irregular menses, Not ko1 Historical: - Allergies: 05:59 Haldol; jj7 05:59 Scopolamine HBr; jj7 - PMHx: 05:59 Acute cutaneous nerve entrapment syndrome; ACNE (Unknown); Anxiety; Gastroparesis; jj7 Irritable bowel syndrome; neuropathy; PTSD; - PSHx: 05:59 bilateral ureter attachment; Cholecystectomy; leep procedure; Lumpectomy of breast; jj7 right breast; - Immunization history:: Client reports receiving the 2nd dose of the Covid vaccine, Flu vaccine is up to date. - Infectious Disease History:: Denies. - Social history:: Smoking status: Reported history of juuling and/or vaping. - History obtained from: EMS. Screenin:54 [facility] ED Fall Risk Assessment (Adult) History of falling in the last 3 months, jj7 including since admission No falls in past 3 months (0 pts) Confusion or Disorientation No (0 pts) Intoxicated or Sedated No (0 pts) Impaired Gait No (0 pts) Mobility Assist Device Used No (0 pt) Altered Elimination No (0 pt) Score/Fall Risk Level 0 - 2 = Low Risk Oriented to surroundings, Maintained a safe environment, Educated pt \T\ family on fall prevention, incl call for assistance when getting out of bed. Abuse screen: Denies threats or abuse. Nutritional screening: No deficits noted. Tuberculosis screening: No symptoms or risk factors identified. Assessment: 05:54 Reassessment: SEE TRIAGE ASSESSEMENT. GI: Abdomen is flat. j 07:05 Reassessment: Patient and/or family updated on plan of care and expected duration. Pain ko1 level reassessed. Patient is alert, oriented x 3, equal unlabored respirations, skin warm/dry/pink. patient took one of the potassium tablets by mouth and stated she could not take them due to vomiting. Informed patient that we could give the potassium IV and patient agreed. Informed MD, orders received. 07:10 Reassessment: Patient appears in no apparent distress at this time. Patient now states ko1 she will take the potassium by mouth. MD informed and orders received. 07:54 Reassessment: Patient is alert/active/playful, equal unlabored respirations, skin ko1 warm/dry/pink. patient finished taking po potassium, no vomiting noted. Vital Signs: 05:55 BP 162 / 110; Pulse 84; Resp 18; Temp 99.6(TE); Pulse Ox 100% on R/A; Weight 63.5 kg; j7 Height 5 ft. 2 in. ; 07:54 BP 158 / 88; Pulse 74; Resp 18; Pulse Ox 100% ; ko1 05:55 Body Mass Index 25.60 (63.50 kg, 157.48 cm) [facility] ED Course: 05:54 Patient arrived in ED. [facility] 05:54 Ne Fuentes is Attending Physician. ci 05:54 Arm band placed on left wrist. Patient placed in an exam room, on a stretcher. jj7 05:54 Patient has correct armband on for positive identification. Bed in low position. Call jj7 light in reach. Side rails up X2. Provided Education on: USE OF CALL MICHELE. Warm blanket given. 05:56 Triage completed. jj7 06:06 Inserted saline lock: 22 gauge in right hand, using aseptic technique. Blood collected. jj7 06:14 CBC with Diff Sent. jj7 06:14 CMP Sent. jj7 06:14 Lipase Sent. jj7 06:17 Warm blanket given. oe 06:19 Marguerite Ozuna, BRUCE is Primary Nurse. jj7 07:02 Attending Physician role handed off by Ne Fuentes ms3 07:02 Kishor Nj DO is Attending Physician. ms3 07:04 Magnesium Sent. jj7 07:04 Add On-Lab Sent. jj7 07:12 Report given to REHANA BARRERA. jj7 07:45 Ced Hood MD is Referral Physician. ms3 07:54 PO fluids given. ko1 07:54 No provider procedures requiring assistance completed. IV discontinued, intact, ko1 bleeding controlled, No redness/swelling at site. Pressure dressing applied. Administered Medications: 05:57 CANCELLED (Duplicate Order): ondansetron 4 mg IVP once; over 2 minutes ci 06:10 Drug: NS 0.9% IV 1000 ml IV at 1 bolus Per protocol; 1000 mL bolus Route: IV; Rate: 1 jj7 bolus; Site: right hand; 06:10 Drug: Famotidine IVP 20 mg IVP once; dilute with 10 mL 0.9% NaCl; give over 2 minutes jj7 Route: IVP; Site: right hand; 06:10 Drug: TORadol - Ketorolac IVP 15 mg IVP once Route: IVP; Site: right hand; jj7 06:10 Drug: Ondansetron IVP 4 mg IVP once; over 2 minutes Route: IVP; Site: right hand; jj7 07:00 Follow up: Response: No adverse reaction; Nausea is decreased ko1 07:05 Not Given (Duplicate Order): potassium zugrjvxv28 meq IV at calculated rate once; ci administer over 1-2 hours 07:09 Not Given (PT STATES SHE CANT TAKE THEM SHE WANTS IT IV): potassium kvkaekix60 meq PO jj7 once 07:10 Not Given (PT STATES SHE CAN NOT TAKE THEM SHE WANTS IT IVv): potassium jvbwfmoi99 meq jj7 PO once 07:43 Drug: Potassium Chloride PO 20 mEq PO once Route: PO; ko1 08:00 Follow up: Response: No adverse reaction ko1 07:43 Drug: Potassium Chloride PO 40 mEq PO once Route: PO; ko1 08:00 Follow up: Response: No adverse reaction ko1 08:02 Not Given (Patient Refused): ynrwvsvzlrr35 mg PO once ko1 08:03 Not Given (Patient Refused): metoclopramide5 mg IVP once; over 1 to 2 minutes ko1 Medication: 05:54 VIS not applicable for this client. jj7 Intake: 07:54 PO: 240ml (Water); Total: 240ml. ko1 Outcome: 07:46 Discharge ordered by MD. ms3 07:54 Discharged to home ambulatory, with family, ko1 07:54 Condition: improved 07:54 Discharge instructions given to patient, family, Instructed on discharge instructions, follow up and referral plans. Demonstrated understanding of instructions, follow-up care, 08:01 Patient left the ED. ko1 Signatures: Chris Eagle Marcus, DO DO ms3 Rehana Lamb, BRUCE RN ko1 Marguerite Ozuna RN RN jj7 Ne Fuentes Corrections: (The following items were deleted from the chart) 07:01 06:14 Test, Urine+UC.LAB.BRZ drawn and sent. j7 EDMS 07:01 06:14 Urinalysis+U.LAB.BRZ drawn and sent. j7 EDMS 07:10 05:55 BP 162 / ???; Pulse 84bpm; Resp 18bpm; Pulse Ox 100% RA; Temp 99.6F Temporal; jj7 63.5 kg; Height 5 ft. 2 in.; BMI: 25.6; oe
--- NOTE | 2023-06-02 07:47 | EDPHYS ---
Physician Documentation [facility] Name: Efrem Pastor Age: 33 yrs Sex: Female : 1990 Arrival Date: 06/02/2023 Time: 05:52 Bed 17 Private MD: ED Physician Kishor Nj HPI: 06/01 06:44 This 33 yrs old Female presents to ER via EMS with complaints of Nausea/Vomiting. ci 06:44 Patient is a 33-year-old female with PMH gastroparesis, IBS who presents to the ED with ci epigastric abdominal pain that radiates into the right upper quadrant. Pain began 1 week ago, patient has been evaluated in the ED multiple times for similar complaint. Patient was seen in the ED yesterday, had a CT of the abdomen that was unremarkable. She has had a cholecystectomy. Patient endorses multiple episodes of NBNB emesis.. RELIGION DEPARTMENT CHAIR: 07:57 LMP N/A - Irregular menses, Not ko1 Historical: - Allergies: 05:59 Haldol; jj7 05:59 Scopolamine HBr; jj7 - PMHx: 05:59 Acute cutaneous nerve entrapment syndrome; ACNE (Unknown); Anxiety; Gastroparesis; jj7 Irritable bowel syndrome; neuropathy; PTSD; - PSHx: 05:59 bilateral ureter attachment; Cholecystectomy; leep procedure; Lumpectomy of breast; jj7 right breast; - Immunization history:: Client reports receiving the 2nd dose of the Covid vaccine, Flu vaccine is up to date. - Infectious Disease History:: Denies. - Social history:: Smoking status: Reported history of juuling and/or vaping. - History obtained from: EMS. ROS: 06:44 Constitutional: Negative for fever, chills, and weight loss, ci 06:44 Cardiovascular: Negative for chest pain, edema, orthopnea, 06:44 Respiratory: Negative for cough, shortness of breath, wheezing, 06:44 Abdomen/GI: Positive for abdominal pain, nausea and vomiting, 06:44 : Negative for urinary symptoms, urinary frequency, foul smelling urine, vaginal discharge, vaginal itching, missed period, Exam: 06:44 Constitutional: This is a well developed, well nourished patient who is awake, alert, ci and in no acute distress. Head/Face: Normocephalic, atraumatic. Eyes: Pupils equal round and reactive to light, extra-ocular motions intact. Lids and lashes normal. Conjunctiva and sclera are non-icteric and not injected. Cornea within normal limits. Periorbital areas with no swelling, redness, or edema. ENT: Nares patent. No nasal discharge, no septal abnormalities noted. Tympanic membranes are normal and external auditory canals are clear. Oropharynx with no redness, swelling, or masses, exudates, or evidence of obstruction, uvula midline. Mucous membranes moist. Neck: Trachea midline, no thyromegaly or masses palpated, and no cervical lymphadenopathy. Supple, full range of motion without nuchal rigidity, or vertebral point tenderness. No Meningismus. Chest/axilla: Normal chest wall appearance and motion. Nontender with no deformity. No lesions are appreciated. Cardiovascular: Regular rate and rhythm with a normal S1 and S2. No gallops, murmurs, or rubs. Normal PMI, no JVD. No pulse deficits. Respiratory: Lungs have equal breath sounds bilaterally, clear to auscultation and percussion. No rales, rhonchi or wheezes noted. No increased work of breathing, no retractions or nasal flaring. Back: No spinal tenderness. No costovertebral tenderness. Full range of motion. 06:44 Abdomen/GI: Palpation: soft, moderate abdominal tenderness, in all quadrants, Indicators: McBurney's point is not tender, Fuentes's sign is negative, Rovsing's sign is negative, Obturator sign is negative, Psoas sign is negative, Vital Signs: 05:55 BP 162 / 110; Pulse 84; Resp 18; Temp 99.6(TE); Pulse Ox 100% on R/A; Weight 63.5 kg; jj7 Height 5 ft. 2 in. ; 07:54 BP 158 / 88; Pulse 74; Resp 18; Pulse Ox 100% ; ko1 05:55 Body Mass Index 25.60 (63.50 kg, 157.48 cm) [facility] MDM: 05:56 Patient medically screened. ci 06:44 Differential diagnosis: Nonspecific abd pain, gastritis, pancreatitis, viral ci gastroenteritis, gastroenteritis, IBS. Data reviewed: vital signs, nurses notes. ED course: Patient presents for chronic abdominal pain. Patient will has been seen in the ED multiple times, she was seen on 05/27/2023, 06/01/2023, twice on 05/30/2023 for similar complaint. Patient had a CT abdomen/pelvis done yesterday with no acute intra-abdominal findings. Her abdominal exam today is nonperitoneal, low suspicion for acute abdomen. Will obtain labs, hydrate with IV fluids. Patient was noted to be hypokalemic, potassium repleted.. 07:49 I considered the following discharge prescriptions or medication management in the [facility] emergency department Medications were administered in the Emergency Department. See MAR. Care significantly affected by the following chronic conditions: Gastroparesis. Counseling: I had a detailed discussion with the patient and/or guardian regarding the historical points, exam findings, and any diagnostic results supporting the discharge/admit diagnosis, lab results, the need for outpatient follow up, to return to the emergency department if symptoms worsen or persist or if there are any questions or concerns that arise at home. Response to treatment: the patient's symptoms have markedly improved after treatment, and as a result, I will discharge patient. Transition of care: Care assumed from Ne Fuentes. ED course: Discussed labs with patient. Patient's LFTs in line with labs obtained yesterday and likely secondary to emesis. Patient to follow-up with gastroenterology in 2 to 3 days. Patient understands and agrees with plan. All questions were answered. Return precautions discussed include worsening symptoms, or any other concerns. On reevaluation patient is tolerating p.o., alert and orient x 4, no apparent distress, nontoxic-appearing, speaking full sentences.. 06/01 05:55 Order name: CBC with Diff; Complete Time: 06:29 ci 06/01 05:55 Order name: CMP; Complete Time: 06:37 ci 06/01 06:37 Interpretation: Abnormal: K 2.8; ALK 125; ALT 60; AST 51. ci 06/01 05:55 Order name: Lipase; Complete Time: 06:37 ci 06/01 06:51 Order name: Add On-Lab ci 06/01 07:00 Order name: Magnesium; Complete Time: 07:08 EDDC 06/01 05:55 Order name: IV Saline Lock; Complete Time: 06:13 ci 06/01 05:55 Order name: Labs collected and sent; Complete Time: 06:14 ci Administered Medications: 05:57 CANCELLED (Duplicate Order): ondansetron 4 mg IVP once; over 2 minutes ci 06:10 Drug: NS 0.9% IV 1000 ml IV at 1 bolus Per protocol; 1000 mL bolus Route: IV; Rate: 1 jj7 bolus; Site: right hand; 06:10 Drug: Famotidine IVP 20 mg IVP once; dilute with 10 mL 0.9% NaCl; give over 2 minutes jj7 Route: IVP; Site: right hand; 06:10 Drug: TORadol - Ketorolac IVP 15 mg IVP once Route: IVP; Site: right hand; jj7 06:10 Drug: Ondansetron IVP 4 mg IVP once; over 2 minutes Route: IVP; Site: right hand; jj7 07:00 Follow up: Response: No adverse reaction; Nausea is decreased ko1 07:05 Not Given (Duplicate Order): potassium [id number] meq IV at calculated rate once; ci administer over 1-2 hours 07:09 Not Given (PT STATES SHE CANT TAKE THEM SHE WANTS IT IV): potassium meq PO jj7 once 07:10 Not Given (PT STATES SHE CAN NOT TAKE THEM SHE WANTS IT IVv): potassium meq jj7 PO once 07:43 Drug: Potassium Chloride PO 20 mEq PO once Route: PO; ko1 08:00 Follow up: Response: No adverse reaction ko1 07:43 Drug: Potassium Chloride PO 40 mEq PO once Route: PO; ko1 08:00 Follow up: Response: No adverse reaction ko1 08:02 Not Given (Patient Refused): [id number] mg PO once ko1 08:03 Not Given (Patient Refused): metoclopramide5 mg IVP once; over 1 to 2 minutes ko1 Disposition Summary: 06/02/23 07:46 Discharge Ordered Notes: Location: Home ms3 Condition: Stable ms3 Diagnosis - Nausea with vomiting, unspecified ms3 - Hypokalemia ms3 - Elevated blood-pressure reading, without diagnosis of hypertension ms3 Followup: ms3 - With: Ced Hood MD - When: 2 - 3 days - Reason: Recheck today's complaints Discharge Instructions: - Discharge Summary Sheet ms3 - Hypokalemia ms3 - Gastroparesis ms3 Forms: - Medication Reconciliation Form ms3 - Antibiotic Education ms3 - Prescription Opioid Use ms3 - Patient Portal Instructions ms3 - Leadership Thank You Letter ms3 Signatures: Dispatcher [employer] EDKishor Mcconnell DO DO ms3 Rehana Lamb, RN RN ko1 Marguerite Ozuna RN RN jj7 IhNe lentz ci Corrections: (The following items were deleted from the chart) 05:57 05:55 Ondansetron IVP 4 mg IVP once; over 2 minutes ordered. ci ci 07:01 05:55 Test, Urine+UC.LAB.BRZ ordered. EDMS EDMS 07:01 05:55 Urinalysis+U.LAB.BRZ ordered. EDMS EDMS
[2023-06-02 08:28] VITALS: BP 158/88; TEMP 99.6; O2SAT 100
== END 2023-06-02 08:01 | disposition home or self-care (01) ==
LOC: ER 05:52
DX: E87.6 Hypokalemia (principal); R03.0 Elevated blood-pressure reading, without diagnosis of hypertension; Z88.5 Allergy status to narcotic agent; Z88.8 Allergy status to other drugs, medicaments and biological substances
CPT/HCPCS: 85025; 36415; 83735; 83690; 80053; J2405; J7030

== ENCOUNTER 2023-06-24 15:04 | Emergency (ER) | payer BC, SELFPAY ==
--- OUTSIDE RECORDS SUMMARY | 2023-06-24 15:07 | XMS REPORT | Continuity of Care Document ---
Author Name Unknown Address [address] [place] [address] [facility] thconnect Address [address] [place] [address] Care Team Providers Care Jewel Bearing Maker Name Role Phone GIOVANY HAGER Attending Clinician Unavailable CAIT BRAGG Attending Clinician Unavailable Jose Maki Attending Clinician Unavailable LAB90 Attending Clinician Unavailable Ted Schultz Attending Clinician Unavailable Kaelyn Peguero Attending Clinician Unavailable Physician, No Primary or Family Admitting Clinic monse Unavailable UNDEFINED Admitting Clinician Unavailable Payers Payer Name Policy Type Policy Number Effective Date Expirati on Date Source [place]US [id number] 2022 00:00:00 2023 00:00:00 BCBS 2 [id number] 2023 00:00:00 Problems Condition Name Condition Details [...] s Active Other 2022-02 00:00: 00 Laura Minorold - Externa l [place] in[place] Hbr Propensi ty to adverse reaction s Active Other 2022-02 00:00: 00 Vision loss Laura Seybold - Externa l haloperi dol DA Active SV HIVES 5-03 00:00: 00 [facility] scopolam [facility]e DA Active SV HIVES 5- 00:00: 00 [facility] No Known Allergie s DA Active U 1- 00:00: 00 [facility] No Known Allergie s DA Active U - 00:00: 00 [facility] No Known Allergie s DA Active U -16 00:00: 00 [facility] sc[facility] DA Active ME 4-10 00:00: 00 [facility] scopol[facility] DA Active ME RASH-HIVES 4-10 00:00: 00 [facility] No Known Allergie s DA Active U 07-29 00:00: 00 [facility] No Known Allergie s DA Active U 07-29 00:00: 00 [facility] No Known Drug Intolera nces DA Active U 10-24 00:00: 00 [facility] No Known Drug Intolera nces DA Active U NONE 10-24 00:00: 00 [facility] Social History Social Habit Start Date Stop [...] 00:00:00 2023-01-27 00:00:00 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 degree: 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 program aLura Enrique - External Cigarettes smoked current (pack per day) - Reported 2023-01-27 00:00:00 2023-01-27 00:00:00 Laura Enrique - External Cigarette pack-years 2023-01-27 00:00:00 2023-01-27 00:00:00 Laura Enrique - External History of Social function 2023-01-26 00:00:00 2023-01-26 00:00:00 Laura Enrique - External Sex Assigned At 1990 00:00:00 1990 00[birth year]:00 Laura Ogden Smoking Status Start Date Stop Date Source Ex-smoker 2023-01-27 00:00:00 2023-01-27 00:00:00 Opal jagdishperlita Iva Ogden Medications Ordered Medication Name Filled Medication Name Start Date Stop Date Current Medication? Ordering Clinician Indication Dosage Frequency Signature (SIG) Comments Components Source Brexpiprazo le (Rexulti) 2 MG oral Tablet 02-24 11:47: 34 Yes 2mg Take 2 mg by mouth daily. Laura hall HYDROcodone -Acetaminop hen 10-325 MG oral Tablet 02-24 00:00: 00 Yes [id number] 1{tbl} Q.5D Take 1 tablet by mouth 2 times daily as needed for pain. Laura hall Methocarbam ol 500 MG oral Tablet 02-24 00:00: 00 Yes [id number] 500mg QD Take 1 tablet (500 mg [...] MG oral Tablet 02-12 00:00: 00 Yes [id number] 25mg QD Take 1 tablet (25 mg total) by mouth daily as needed for nausea. Laura hall Valacyclovi r HCl (Valtrex) 500 MG oral Tablet 2022-02 00:00: 00 Yes [id number] 500mg Take 1 tablet (500 mg total) by mouth daily. Laura hall Brexpiprazo le (Rexulti) 2 MG oral Tablet 2022-02 14:15: 48 Yes 2mg Take 2 mg by mouth daily. Laura hall predniSONE (DELTASONE) 20 MG oral tablet 2022-02 2- 00:00: 00 Yes 20mg Take 1 tablet (20 mg total) by mouth 2 times daily. Laura hall HYDROcodone -Acetaminop hen 10-325 MG oral Tablet 2022-02 2- 00:00: 00 Yes 1{tbl} Q.25D Take 1 tablet by mouth every 6 hours as needed for pain (joint murray and post LP). Laura hall Famotidine (PEPCID) 20 MG oral tablet 2022-02 1-08 00:00: 00 02-24 00:00 :00 No 20mg Take 1 tablet (20 mg total) by mouth daily. Laura hall Paroxetine HCl 40 MG oral Tablet 8- 00:00: 00 Yes 40mg Take 1 tablet (40 mg total) by mouth every morning. Laura hall Alprazolam (Xanax) 0.5 MG oral Tablet 08-11 00:00: 00 Yes .5mg Q.5D Take 1 tablet (0.5 mg total) by mouth 2 times daily as needed for anxiety (PTSD, [place] ). Laura hall Pantoprazol e Sodium (Protonix) 40 MG oral Tablet Delayed Response - 00:00: 00 Yes 40mg Take 1 tablet (40 mg total) by mouth daily. Laura hall Eszopiclone 1 MG oral Tablet - 00:00: 00 Yes 3mg Take 3 tablets (3 mg total) by mouth at bedtime. Laura hall Immunizations Ordered Immunization Name Filled Immunization Name Date Status Comments Source Influenza Virus Vaccine, Split, up to age 3 Unknown Completed Laura Ogden HPV 4 (Human Papillomavirus) Unknown Completed Laura jacome - External HPV 9 (Human Papillomavirus) Unknown Completed Laura jacome - External Influenza Virus Vaccine, Split, up to age 3 Unknown Completed Laura Ogden HPV 4 (Human Papillomavirus) Unknown Completed Laura jacome - External HPV 9 (Human Papillomavirus) Unknown Completed Laura Seybo ld - External Vital Signs Vital Name [...] 26.30 kg/m2 Beatris ey Seybold - External Encounters Start Date/Time End Date/Time Encounter Type Admission Type Attending [facility] Facility Care Department Encounter ID Source 2020-06-24 15:53:22 Inpatient HCARG HCARG [id number] [facility] 2020-05-19 11:42:02 Inpatient HCARG HCARG [id number] [facility] 2019-07-30 21:08:00 Inpatient HCARG ER [id number] [facility] 2023-08-10 13:30:00 2023-08-10 13:30:00 Outpatient PREZAS, GIOVANY LAURA PIZANO [id number] [facility] 2023-05-04 14:30:00 2023-05-04 14:30:00 Outpatient PREZAS, GIOVANY LAURA PIZANO [id number] [facility] 2023-05-04 11:15:00 2023-05-04 11:15:00 Outpatient PREZAS, GIOVANY LAURA PIZANO [id number] [facility] 2023-05-04 11:00:00 2023-05-04 11:00:00 Outpatient CARRIE BRAGGTIDAR [facility] [id number] [facility] 2023-04-22 00:00:00 2023-04-22 00:00:00 Outpatient PREZAS, GIOVANY PIZANO [id number] [facility] 2023-04-14 02:00:00 2023-04-14 03:25:00 Emergency EM Jose Maki [facility] [id number] 26 [facility] 2023-04-10 00:00:00 2023-04-10 00:00:00 Outpatient PREZAS, GIOVANYLEDY PIZANO [id number] [facility] 2023-03-27 09:00:00 2023-03-27 09:00:00 Outpatient PREZAS, GIOVANY PIZANO [id number] [facility] 2023-03-27 00:00:00 2023-03-27 00:00:00 Outpatient PREZAS, GIOVANY PIZANO [id number] [facility] 2023-03-27 00:00:00 2023-03-27 00:00:00 Outpatient PREZAS, GIOVANY PIZANO [id number] [facility] 2023-03-26 00:00:00 2023-03-26 00:00:00 Outpatient PREZAS, GI[facility]ANY PI[facility]ANO [id number] [facility]26 00:00:00 2023-03-26 00:00:00 Outpatient PREZAS, GIOVANY DIALLOSEY [id number] [facility] 2023-03-25 14:00:00 2023-03-25 14:00:00 Outpatient PREZAS, GIOVANY DIALLOSEY [id number] [facility] 2023-03-10 00:00:00 2023-03-10 00:00:00 Outpatient PREZAS, GIOVANY DIALLOSEY [id number] [facility] 2023-03-09 00:00:00 2023-03-09 00:00:00 Outpatient PREZAS, GIOVANY DIALLOSEY [id number] [facility] 2023-03-04 00:00:00 2023-03-04 00:00:00 Outpatient PREZAS, GIOVANY PIZANO LAURA [id number] [facility] 2023-03-03 00:00:00 2023-03-03 00:00:00 Outpatient PREZAS, GIOVANY PIZANO LAURA [id number] [facility] 2023-03-02 00:00:00 2023-03-02 00:00:00 Outpatient PREZAS, GIOVANY PIZANO LAURA [id number] [facility] 2023-03-02 00:00:00 2023-03-02 00:00:00 Outpatient PREZAS, GIOVANY PIZANO LAURA [id number] [facility] 2023-03-02 00:00:00 2023-03-02 00:00:00 Outpatient PREZAS, GIOVANY PIZANO LAURA [id number] [facility] 2023-03-02 00:00:00 2023-03-02 00:00:00 Outpatient PREZAS, GIOVANY PIZANO LAURA [id number] [facility] 2023-02-27 00:00:00 2023-02-27 00:00:00 Outpatient PREZAS, GIOVANY DIALLOHUMPHREY PIZANO [id number] [facility] 2023-02-25 00:00:00 2023-02-25 00:00:00 Outpatient PREZAS, GIOVANY PIZANO LAURA [id number] [facility] 2023-02-24 11:30:00 2023-02-24 11:30:00 Outpatient PREZASGIOVANY [id number] [facility] 2023-02-18 00:00:00 2023-02-18 00:00:00 Outpatient PREZAS, GIOVANY PIZANO [id number] [facility] 2023-02-12 00:00:00 2023-02-12 00:00:00 Outpatient PREZAS, GIOVANY PIZANO [id number] [facility] 2023-02-12 00:00:00 2023-02-12 00:00:00 Outpatient PREZAS, GIOVANY PIZANO [id number] [facility] 2023-02-11 00:00:00 2023-02-11 00:00:00 Outpatient PREZAS, GIOVANY PIZANO [id number] [facility] 2023-01-28 00:00:00 2023-01-28 00:00:00 Outpatient PREZAS, GIOVANY PIZANO [id number] [facility] 2023-01-28 00:00:00 2023-01-28 00:00:00 Outpatient PREZAS, GIOVANY PIZANO [id number] [facility] 2023-01-27 13:00:00 2023-01-27 13:00:00 Outpatient LAB90 LAURA PIZANO [id number] [facility] 2023-01-27 10:45:00 2023-01-27 10:45:00 Outpatient PREZASGIOVANY [id number] [facility] 2023-01-27 00:00:00 2023-01-27 00:00:00 Outpatient PREZASGIOVANY [id number] [facility] 2022-06-11 11:10:00 2022-06-11 12:41:00 Emergency EM Ted Schultz [facility] ER [id number] 63 [facility] 2021-02-09 23:10:00 2021-02-10 00:19:00 Emergency EM Kaelyn Peguero [facility] [id number] [facility] Results Test Description Test Time Test Comments Results Result Co mments Source [facility], [address], [place], [address], POC [id number] 05:04:00* Test Item Value Reference Range Interpretation [...] PT value based on a regression analysis. [facility] [address], [place], [address], URINE DRUG SCREEN [id number] 02:46:00* Test Item Value Reference Range Interpretation [...] results should not beused for non-medical purposes. [facility], [address], [place], [address], POC,HCG URINE, [id number] 02:38:00* Test Item Value Reference Range Interpretation Comme nts POC,HCG URINE, QUALITATIVE ( test code = EDHCGU) Negative Negative [facility], [address], [place], [address], URINALYSIS [id number] 02:32:00* Test Item Value Reference Range Interpretation [...] ESTERASE (test code = EDLEUK) Negative Negative [facility], [address], [place], [address], - CT ABD PELVIS W/O [id number] 02:32:00 [facility] : 1990 Sex: FName: BREANNA JIMENEZ [facility] : 1990 Age/S: 32 / F [address] Unit #: [id number] Loc: [place] [address] Phys: Jose Maki MD Acct: [id number] Dis Date: Status: PRE ER PHONE #: Exam Date: 04/14/2023226 FAX #: Reason: epigastric abd pain suspect gastroparesis EXAMS: CPT CODE: [id number] CT ABD PELVIS W/O CONT 32775 - CT ABD PELVIS W/O CONT INDICATION [...] hydronephrosis. Bowel: The stomach, small bowel, and colonare unremarkable. Specifically the stomach is not significantly distended. Pelvic contents: The remaining pelvic contents are unremarkable. IMPRESSION: No acute findings. Specifically the stomach is not significantly distended. at 0232 Reported and signed by: DIANE KILPATRICK MD PAGE 1 Signed Report (CONTINUED) Name: BREANNA JIMENEZ [facility] : 1990 Age/S: 32 / F [address] Unit #: [id number] Loc: [place] [address] Phys: Jose Maki MD Acct: [id number] Dis Date: Status: PRE ER PHONE #: ExamDate: 04/14/2023226 FAX #: Reason: epigastric abd pain suspect gastroparesis EXAMS: CPT CODE: [id number] CT ABD PELVIS W/O CONT 33606 (Continued) CC: Jose Maki MD Technologist:Milagro Rosen RT (R) CT CTDI: 8 DLP: 395 Trnscb Date/Time: 04/14/2023 (231) [email or web address] Orig Print D/T: S: 04/14/2023 (023) PAGE 2 Signed ReportCOMPREHENSIVE METABOLIC [id number] 02:31:00* Test Item Value Reference Range Interpretation [...] The assay for creatinine is traceable tothe IDMI reference method. Chronic kidney disease (CKD) maynot [...] code = EDALP) 127 U/L 42-141 N [facility], [address], [place], [address], POC,[id number] 02:31:00* Test Item Value Reference Range Interpretation Comme [facility] POC,AMYLASE (test code = EDAMY) 118 U/L 14-97 H [facility], [address], [place], [address], COMPLETE BLOOD COUNT (CBC)2023-04-14 02:21:00* Test Item Value Reference Range Interpretation Comme nts POC,WHITE BLOOD CELL (test c ode = [...] code = EDMPVP) 13.3 fL 7.9-13.3 N [facility], [address], [place], [address], UA RFLX MICROSCOPIC [id number] 11:54:00* Test Item Value Reference Range Interpretation [...] Suprapubic PainURINE SOURCE: CLEAN CATCH URINEUR HCG [id number] 11:54:00* Test Item Value Reference Range Interpretation Comme nts UR HCG QUAL (test code = HCGQLU) NEGATIVE NEGATIVE Indication for culture: Suprapubic PainURINE SOURCE: CLEAN CATCH URINE COMPREHENSIVE METABOLIC [id number] 11:49:00* Test Item Value Reference Range Interpretation [...] code = ALKP) 105 U/L 45-117 N [id number] 11:49:00* Test Item Value Reference Range Interpretation Comme nts AMYLASE (test code = PARAM) 73 IU/L 25-115 N [id number] 11:49:00* Test Item Value Reference Range Interpretation Comme nts LIPASE (test code = LIP) 134 U/L 73-393 N CBC W/AUTO [id number] 11:33:00* Test Item Value Reference Range Interpretation [...] code = RBCM) NO NORMAL COMPREHENSIVE METABOLIC [id number] 16:11:00* Test Item Value Reference Range Interpretation [...] > or = 60 ml/min/1.73M2IF PATIENT IS -SWEDISH, MULTIPLY REPORTED RESULT BY1.21. [Automated message] The [...] code = ALKP) 139 U/L 45-117 H [id number] 16:11:00* Test Item Value Reference Range Interpretation Comme nts LIPASE (test code = LIP) 108 U/L 73-393 N URINALYSIS W REFLEX [id number] 16:05:00* Test Item Value Reference Range Interpretation [...] UAMICRO) Y= DO UA MICRO UR HCG [id number] 16:05:00* Test Item Value Reference Range Interpretation Comme nts UR HCG QUAL (test code = HCGQLU) NEGATIVE NEGATIVE URINALYSIS W REFLEX [id number] 16:05:00* Test Item Value Reference Range Interpretation [...] = UAMICRO) Y= DO UA MICRO UA [id number] 16:05:00* Test Item Value Reference Range Interpretation Comme nts UA WBC (test code = WBCU) 0-2 #/hpf 0-5 UA RBC (test code = RBCU) 0-2 #/hpf 0-5 UA EPITHELIAL CELLS (test co de = EPIU) 2+ /hpf NEG,FEW A UA BACTERIA (test code = BACU) FEW /hpf NEGATIVE A UA AMORPHOUS SEDIMENT (test code = AMORU) FEW /hpf NEG,FEW UR HCG [id number] 16:05:00* Test Item Value Reference Range Interpretation Comme nts UR HCG QUAL (test code = HCGQLU) NEGATIVE NEGATIVE URINALYSIS W REFLEX [id number] 16:05:00* Test Item Value Reference Range Interpretation [...] UAMICRO) Y= DO UA MICRO UR HCG [id number] 16:05:00* Test Item Value Reference Range Interpretation Comme nts UR HCG QUAL (test code = HCGQLU) NEGATIVE NEGATIVE DRUGS OF ABUSE [id number] 16:01:00* Test Item Value Reference Range Interpretation Comme nts UR COCAINE (test code = COCAU) NEGATIVE ng/ml NEGATIVE UR CANNABINOIDS (test code = CANU) POSITIVE ng/ml NEGATIVE A VALUE EXCEEDS CRITICAL LEVEL. CRITICAL VALUE CALLEDTO AND CRITICAL VALUE READ BACK BY HUBER DOWNING RN [id number] 06/24/20. Chas Dixon POSITIVE URINE DRUG SCREEN [...] 300 NG/MLPHENCYCLIDINE 25 NG/ML URINALYSIS W REFLEX [id number] 15:58:00* Test Item Value Reference Range Interpretation [...] NEEDED? (test code = UAMICRO) UR HCG [id number] 15:58:00* Test Item Value Reference Range Interpretation Comme nts UR HCG QUAL (test code = HCGQLU) NEGATIVE NEGATIVE CBC W/AUTO [id number] 15:52:00* Test Item Value Reference Range Interpretation [...] = RBCM) NO NORMAL URINALYSIS W REFLEX [id number] 13:00:00* Test Item Value Reference Range Interpretation [...] Y= DO UA MICRO UA ICTOTEST FOR [id number] 13:00:00* Test Item Value Reference Range Interpretation Comme nts UA ICTOTEST FOR BILIRUBIN (t est code = ICTOU) POSITIVE NEGATIVE A UA [id number] 13:00:00* Test Item Value Reference Range Interpretation Comme nts UA WBC (test code = WBCU) 0-2 #/hpf 0-5 UA RBC (test code = RBCU) 3-5 #/hpf 0-5 UA EPITHELIAL CELLS (test co de = EPIU) FEW /hpf NEG,FEW UA BACTERIA (test code = BACU) FEW /hpf NEGATIVE A UA MUCUS (test code = MUCU) 1+ /hpf NEG,FEW A UR HCG [id number] 13:00:00* Test Item Value Reference Range Interpretation Comme nts UR HCG QUAL (test code = HCGQLU) NEGATIVE NEGATIVE DRUGS OF ABUSE [id number] 12:57:00* Test Item Value Reference Range Interpretation [...] 300 NG/MLPHENCYCLIDINE 25 NG/ML URINALYSIS W REFLEX [id number] 12:56:00* Test Item Value Reference Range Interpretation [...] Y= DO UA MICRO UA ICTOTEST FOR [id number] 12:56:00* Test Item Value Reference Range Interpretation Comme nts UA ICTOTEST FOR BILIRUBIN (t est code = ICTOU) POSITIVE NEGATIVE A UR HCG [id number] 12:56:00* Test Item Value Reference Range Interpretation Comme nts UR HCG QUAL (test code = HCGQLU) NEGATIVE NEGATIVE URINALYSIS W REFLEX [id number] 12:53:00* Test Item Value Reference Range Interpretation [...] UAMICRO) Y= DO UA MICRO UR HCG [id number] 12:53:00* Test Item Value Reference Range Interpretation Comme nts UR HCG QUAL (test code = HCGQLU) NEGATIVE NEGATIVE URINALYSIS W REFLEX [id number] 12:53:00* Test Item Value Reference Range Interpretation [...] UAMICRO) Y= DO UA MICRO UR HCG [id number] 12:53:00* Test Item Value Reference Range Interpretation Comme nts UR HCG QUAL (test code = HCGQLU) NEGATIVE NEGATIVE - XR ABDOMEN [id number] 12:16:00 [facility] 1990 Sex: F FAX: Sawyer Centeno II [place]: St: PRE Name: BREANNA QUEEN FSED : 1990 Age/S: 30/F [address] Unit #: [id number] Loc: [place] [address] Phys: Sawyer Centeno II, MD Acct: [id number] Dis Date: Status: PRE ER PHONE #: Exam Date: 05/19/2020 1212 FAX #: Reason: abdominal pain EXAMS: CPT CODE: [id number] XR ABDOMEN 2V 29281 - XR ABDOMEN 2V PROVIDED REASON FOR EXAM: abdominal pain COMPARISON: None available. FINDINGS: Bowel gas pattern is non-obstructive. No abnormal calcifications orsoft tissue masses. No acute fracture or subluxation. Regional soft tissues are unremarkable. Surgical clips of the right upper abdomen. Relative paucity of bowel gas. IMPRESSION: No acute process. Location: V20 at 1216 Reported and signed by: DEVANTE CABALLERO M.D. CC: Technologist: RT Bekah (Gretta) CT Trnidrd Date/Time/By: 05/19/2020 (1216) : By: [email or web address] [facility] Print D/T: S: 05/19/2020 (4812) PAGE 1 Signed ReportBASIC METABOLIC PANEL 2020-05-19 [...] > or = 60 ml/min/1.73M2IF PATIENT IS -SWEDISH, MULTIPLY REPORTED RESULT BY1.21. [Automated message] The system which generated this result transmitted reference range: >=60. The reference range was not used to interpret this result as normal/abnormal. CREATININE (test code = CREAT) 0.64 mg/dl 0.55-1.02 N CALCIUM (test code = CA) 9.8 mg/dL 8.5-10.1 N LIVER [id number] 12:08:00* Test Item Value Reference Range Interpretation [...] code = ALKP) 119 U/L 45-117 H [id number] 12:08:00* Test Item Value Reference Range Interpretation Comme nts LIPASE (test code = LIP) 67 U/L 73-393 L CBC W/AUTO [id number] 11:43:00* Test Item Value Reference Range Interpretation [...] = RBCM) NO NORMAL URINALYSIS W REFLEX [id number] 22:06:00* Test Item Value Reference Range Interpretation [...] MUCU) 2+ /hpf NEG,FEW A BASIC METABOLIC [id number] 21:54:00* Test Item Value Reference Range Interpretation [...] > or = 60 ml/min/1.73M2IF PATIENT IS -SWEDISH, MULTIPLY REPORTED RESULT BY1.21. CREATININE (test code = CREAT) 0.70 mg/dL 0.51-0.95 N CALCIUM (test code = CA) 9.3 mg/dL 8.5-10.1 N LIVER [id number] 21:54:00* Test Item Value Reference Range Interpretation [...] code = ALKP) 69 U/L 50-136 N [id number] 21:54:00* Test Item Value Reference Range Interpretation Comme nts LIPASE (test code = LIP) 63 U/L 73-393 L BASIC METABOLIC [id number] 21:53:00* Test Item Value Reference Range Interpretation [...] > or = 60 ml/min/1.73M2IF PATIENT IS -SWEDISH, MULTIPLY REPORTED RESULT BY1.21. CREATININE (test code = CREAT) 0.70 mg/dL 0.51-0.95 N CALCIUM (test code = CA) 9.3 mg/dL 8.5-10.1 N LIVER [id number] 21:53:00* Test Item Value Reference Range Interpretation [...] ( test code = ALKP) U/L 50-136 [id number] 21:53:00* Test Item Value Reference Range Interpretation Comme nts LIPASE (test code = LIP) 63 U/L 73-393 L BASIC METABOLIC [id number] 21:52:00* Test Item Value Reference Range Interpretation [...] > or = 60 ml/min/1.73M2IF PATIENT IS -SWEDISH, MULTIPLY REPORTED RESULT BY1.21. CREATININE (test code = CREAT) 0.70 mg/dL 0.51-0.95 N CALCIUM (test code = CA) 9.3 mg/dL 8.5-10.1 N LIVER [id number] 21:52:00* Test Item Value Reference Range Interpretation [...] ( test code = ALKP) U/L 50-136 [id number] 21:52:00* Test Item Value Reference Range Interpretation Comme nts LIPASE (test code = LIP) 63 U/L 73-393 L BASIC METABOLIC [id number] 21:51:00* Test Item Value Reference Range Interpretation [...] > or = 60 ml/min/1.73M2IF PATIENT IS -SWEDISH, MULTIPLY REPORTED RESULT BY1.21. CREATININE (test code = CREAT) 0.70 mg/dL 0.51-0.95 N CALCIUM (test code = CA) 9.3 mg/dL 8.5-10.1 N LIVER [id number] 21:51:00* Test Item Value Reference Range Interpretation [...] ( test code = ALKP) U/L 50-136 [id number] 21:51:00* Test Item Value Reference Range Interpretation Comme nts LIPASE (test code = LIP) 63 U/L 73-393 L BASIC METABOLIC [id number] 21:49:00* Test Item Value Reference Range Interpretation [...] = CA) 9.3 mg/dL 8.5-10.1 N LIVER [id number] 21:49:00* Test Item Value Reference Range Interpretation [...] ( test code = ALKP) U/L 50-136 [id number] 21:49:00* Test Item Value Reference Range Interpretation Comme nts LIPASE (test code = LIP) 63 U/L 73-393 L BASIC METABOLIC [id number] 21:48:00* Test Item Value Reference Range Interpretation [...] = CA) 9.3 mg/dL 8.5-10.1 N LIVER [id number] 21:48:00* Test Item Value Reference Range Interpretation [...] ( test code = ALKP) U/L 50-136 [id number] 21:48:00* Test Item Value Reference Range Interpretation Comme nts LIPASE (test code = LIP) U/L 73-393 BASIC METABOLIC [id number] 21:46:00* Test Item Value Reference Range Interpretation [...] (test code = CA) mg/dL 8.5-10.1 LIVER [id number] 21:46:00* Test Item Value Reference Range Interpretation [...] ( test code = ALKP) U/L 50-136 [id number] 21:46:00* Test Item Value Reference Range Interpretation Comme nts LIPASE (test code = LIP) U/L 73-393 CBC W/AUTO [id number] 21:43:00* Test Item Value Reference Range Interpretation [...] Notes Date/Time Note Provider Source 2023-04-14 02:04:00 [id number]/[id number]: 04:00 [facility] ([facility])EMERGENCY PROVIDER REPORTREPORT#:[id number] REPORT STATUS: SignedDATE:04/14/23 TIME: 0204 PATIENT: BREANNA JIMENEZ UNIT #: [id number]#: [id number] ROOM/BED:AGE: 32 SEX: F PCP PHYS: No Primary or Family PhysicianSERVICE AUTHOR: Jose Maki MD * ALL edits or amendments must be made on the electronic/computer document * HPI-Abd Pain F Under 40 Free Text HPI NotesFree Text HPI [id number] presents with abdominal pain that started around [...] Delivery Room air 04/14 207 Temp 97.3 04/13 0208 Pulse 83 04/13 [...] (5.0 - 8.0) 7.0 POC Ur Specif [place] (1.001 - 1.035) 1.025 POC Urine Protein [...] 4 MG X1ED STA 04/13 0233 DC 03/ IV / 0234 0238 Ketorolac 15 MG X1ED STA 04/13 0208 DC 03/ Tromethamine IV 04/13 0209 0219 Electrolytic, Caloric, And Elvia Sig/Ayanna Start time Last Medication Dose Route Stop Time Status Admin Sodium Chloride 1,000 ML X1ED STA 04/13 0237 AC / IV 04/13 0336 0238 Sodium Chloride 1,000 ML X1ED STA 04/13 0208 AC / IV / 0307 0218 Gastrointestinal Drugs Sig/Ayanna Start time Last Medication Dose Route Stop Time Status Admin Famotidine 20 MG X1ED STA 04/13 0208 DC / IV 04/13 0209 0219 Metoclopramide HCl 10 MG X1ED STA 04/13 0208 DCr 03/ IV / 0209 0219 Differential Diagnosis)( Differential Diagnosis Acute abdominal pain, Appendicitis, Bowel obstruction,Constipation, Diverticular disease, Ectopic preg ruptured, Ectopic , Endometriosis, Gastritis, Gastroenteritis, GERD Patient Discharge Departure Vital Signs/ConditionVital SignsFirst Documented: Result Date Time Pulse Ox 100 / 0208 B/P 165/107 / 0208 B/P Mean 126 / 0208 O2 Delivery Room air 04/13 0208 Temp 97.3 / 0208 Pulse 83 03/ 0208 Resp 19 / 0208 Last Documented: Result Date Time Pulse Ox 100 / 0208 B/P 165/107 / 0208 B/P Mean 126 / 0208 O2 Delivery Room air 03/ 0208 Temp 97.3 / 0208 Pulse 83 03/ 0208 Resp 19 / 0208 All vital signs available at the [...] or a call to 911. at 0504RPT #:[id number] OF [facility]PORTUT [facility] department iippmk6560-23-45S39:04:00H.UFDK57440271-5648K VAvailable for patient xiusUVYWRLMZNOIVYK0537-32-92A26:04:38 [facility] 2023-02-24 11:47:47 QHXmsePJD3lZkJzZQ4qJj8DQhqEq4e3jB3JjKQ/f jHA9B BWVmt+o8K6tkOd9CGCs3201-31-52F37:47:47Formatt ing of this note is different from the original.Chief ComplaintPatient presents withFollow-Up Visit1 month follow up visitPaRENEE WuN 19457-2Cblnz PgxtHO0516-58-10P25:48:14Nurse NoteTXT1.2.840.256168.1.13.131.2.7.2.629928|3 06010798UMOcezpldrn for patient xuqc82893-6Efrbx NoteLNNARRATIVEFormatted C-CDA narrative textKELSalem Regional Medical Center2727 [facility] Ho[id number]- 16T11:48:141.2.840.762886.1.72.3.15|1.2.840.1 59653.1.13.131.2.7.2.727879_393020860 [facility] 2022-06-11 11:33:00 [id number]/c1sGYjrbpzhOsUg0eE1H8bvnh c+eVJ V79pumSezP1+GIvNVpRfIOLNMJPRTMt0810-24-04Q46: 33:00 [facility] ([facility])EMERGENCY PROVIDER REPORTREPORT#:[id number] REPORT STATUS: SignedDATE:06/11/22 TIME: 1133 PATIENT: BREANNA JIMENEZ UNIT #: [id number]#: [id number] ROOM/BED:AGE: 32 SEX: F PCP PHYS: Undefined [...] % (Auto) (16 - 50 %) 22.9 [place] % (Auto) (0.0 - 13.0 %) 9.8 [...] pH (4.6 - 8.0) 7.0 Ur Specific [place] (1.001 - 1.035) 1.020 Urine Protein (NEGATIVE [...] was at [facility] yesterdayand was prescribed compazine/reglan after blood [...] 1,000 ML X1ED STA 06/11 1141 DC / IV 06/11 1240 1155 Sodium Chloride 1,000 ML X1ED STA 06/11 1118 DC 05/ IV 06/11 1217 1123 Gastrointestinal Drugs Sig/Ayanna Start time Last Medication Dose Route Stop Time Status Admin Prochlorperazine 5 MG X1ED STA 06/11 1118 DC / Edisylate IV 06/11 1119 1124 Patient Discharge [...] B/P Mean 93 06/11 1206 Temp 36.3 / 1206 Pulse 77 [...] or a call to 911. at 1245RPT #:[id number] OF REPORTEDEmergency department sqiuyr8234-84-68P83:33:00H.[id number] VAvailable for patient mqsfXXTVVOHTHWOARB7400-79-83H06:45:50 [facility] 2021-02-09 23:43:00 [id number]y+JM qb4HT SyoATFi6L7Zg8G4xTf6oRndAeLEoeQ29583-73-54A87: 43:00 [facility] ([facility])EMERGENCY PROVIDER REPORTREPORT#:[id number] REPORT STATUS: SignedDATE:02/09/21 TIME: 2343 PATIENT: BREANNA JIMENEZ UNIT #: [id number]#: [id number] ROOM/BED:AGE: 30 SEX: F PCP PHYS: No Primary or Family PhysicianSERVICE AUTHOR: Kaelyn Peguero MD * ALL edits or amendments must be made on the electronic/computer document * FTP-Exu-Lneq Illness GeneralConfirmed Patient YesPatient Type New patientInitial Greet Date/Time 02/09/21 2312 PresentationChief Complaint Body aches, Chills, Cough Free Text HPI NotesFree Text HPI Czhat14-xcus-tin female comes emergency room complaining of cough, body aches, chills, that began 2 days ago. Patient has been traveling in [place] and apparently although she has been driving [...] (2008). Additional Surgical Historybilateral ureter reattachment 1997 [facility] 2018 Botox injection to pylorusAlcohol [...] Ox 100 02/09 231 B/P 110/74 02/09 2310 B/P Mean 86 [...] new symptoms or worsening symptoms. at 0652RPT #:[id number] OF REPORTEDEmergency department hlcscv8730-81-16B68:43:00H.XFVA55836318-5083C VAvailable for patient uiwiPYFIJLZWXSYFVF5174-59-40M97:53:06 [facility] 2020-[facility] 15:35:00 FOipwvfgeqb62128386OU5IG+X5Pmoiqmky5pnpo n9MbG cw++6/4jdofU8evsOol0+NnE7/YOcn2hs8T6w79654-85 -16T15:35:00 [facility] ([facility])EMERGENCY PROVIDER REPORTREPORT#:[id number] REPORT STATUS: SignedDATE:06/24/20 TIME: 1535 PATIENT: BREANNA JIMENEZ UNIT #: [id number]#: [id number] ROOM/BED:AGE: 30 SEX: F PCP PHYS: No Primary or Family PhysicianSERVICE AUTHOR: Maicol Coy MD * ALL edits or amendments must be made on the electronic/computer document * HPI-Abd Pain F Under 40 GeneralInitial Greet Date/Time 06/24/20 1529PCPDr. Nan in [facility] [place] PresentationChief Complaint Abdominal pain, Nausea, Vomiting moderateHx [...] Nothing Free Text HPI NotesFree Text HPI Lseaj69j M2 LMP 19 May 2020 c/o acute on chronic gastroparesis related to IBS and/or THC use for past 2d with nonbloody N/V x 6. She is visiting from [employer]. Risk-Abd Pain F Under 40)( Ectopic Risk [...] % (Auto) (16 - 50 %) 48.2 [place] % (Auto) (0.0 - 13.0 %) 13.0 [...] pH (4.6 - 8.0) 7.0 Ur Specific [place] (1.001 - 1.035) 1.020 Urine Protein (NEGATIVE [...] the plan for smoking cessation. at 2053RPT #:[id number] OF REPORTEDEmergency department ygfcxx1764-73-63F84:35:00H.PNVM49789906-5938M VAvailable for patient kcutDSOXSNHJZDDORO1240-14-43I35:53:15 [facility] 2020-05-19 12:11:00 NFepcrqgpbo61263946Hmt28SsZZvWcVNvNgX0w0 3xkQV u4bhLTHgttP9zMmnyJKz0zCTaNvBW5T0RVGN0n9004-88 -10T12:11:00 [facility] ([facility])EMERGENCY PROVIDER REPORTREPORT#:[id number] REPORT STATUS: SignedDATE:05/19/20 TIME: 1211 PATIENT: BREANNA QUEEN UNIT #: [id number]#: [id number] ROOM/BED:AGE: 30 SEX: F PCP PHYS: Brayan Winn MDSERVICE AUTHOR: Sawyer Centeno II, MD * ALL edits or amendments must be made on the electronic/computer document * HPI-Abd Pain F Under 40 Free Text HPI NotesFree Text HPI NotesThe patient tells me she has a history of gastroparesis but is not a diabetic. She tells me that she is from [facility] and that she has GI specialist in [facility] whose name is Dr. Hendrix. She tells me she used to get Botox injections in her pilorus to treat her pain. She tells me she went to a local hospital yesterday and got several medications for pain but the pain did not getany better. GeneralConfirmed Patient YesInitial Greet Date/Time 05/19/20 1129PCPIn [facility] PresentationChief Complaint Abdominal painHx Obtained From [...] pH (4.6 - 8.0) 6.0 Ur Specific [place] (1.001 - 1.035) >= 1.030 Urine Protein [...] (Auto) (16 - 50 %) 9.5 L [place] % (Auto) (0.0 - 13.0 %) 4.3 [...] Entered: 05/19/2020 1219 IMPRESSION:No acute process. Location: [place] By: Emily CABALLERO M.D. Imaging StatementRadiographic studies [...] HTN F/u with PCP/other doc at 1708RPT #:[id number] OF REPORTEDEmergency department caaxio0298-85-72E89:11:00H.[id number] VAvailable for patient webwBHPTHOSYBWACOX9091-60-58A61:08:49 [facility] 2019-07-30 21:12:00 TNgfsppizwe450732090qe7Jrd+z44of/FcEkEtU j+eWE dSfOBw5dZHTtUBUgTKCW7hiExTb3yOSy580kQ41117-20 -20T21:12:00 [facility] ([facility])EMERGENCY PROVIDER REPORTREPORT#:[id number] REPORT STATUS: SignedDATE:07/30/19 TIME: 2111 PATIENT: BREANNA JIMENEZ UNIT #: [id number]#: [id number] ROOM/BED:AGE: 29 SEX: F PCP PHYS: No [...] (Auto) (16.0 - 50.0 %) 15.3 L [place] % (Auto) (0.0 - 13.0 %) 5.2 [...] pH (4.6 - 8.0) 6.0 Ur Specific [place] (1.001 - 1.035) 1.017 Urine Protein (NEGATIVE [...] STA 07/29 2258 DCr 07/29 IM 07/29 2259 2305 Ketorolac 30 MG X1ED STA 07/29 2114 DC 07/29 Tromethamine IV 07/30 2115 2139 Electrolytic, Caloric, And Elvia Sig/Ayanna Start time Last Medication Dose Route Stop Time Status Admin Potassium Chloride 20 MEQ X1ED STA 07/299 DC PO 07/29 2230 Sodium Chloride 1,000 ML X1ED STA 07/29 2113 DC 07/29 IV 07/29 2213 2139 Gastrointestinal Drugs Sig/Ayanna Start time Last Medication Dose Route Stop Time Status Admin Al Hydrox/Mg Hydrox/ 30 ML X1ED STA 07/29 2113 DC Simethicone PO 07/29 2114 Famotidine 20 MG X1ED STA 07/29 2113 DC 07/29 IV 07/29 2114 213 Ondansetron HCl 4 MG X1ED STA 07/29 2113 DC 07/29 IV 07/29 2114 214 Patient Discharge Departure Vital Signs/ConditionVital SignsFirst Documented: [...] or a call to 911. at 0000RPT #:[id number] OF REPORTEDEmergency department wlyuve8530-48-91A15:12:00H.[id number] VAvailable for patient niusIHECZGKIOOJDJO1918-01-51A75:00:25 [facility] 2019-07-30 21:12:00 RPcnsxaiaot715157644P17pZJO7QekDGcVRrcLI Mili+2 JQT9nNpyYlE2GT0jdPMEBMKXDpIpcl2aNq87sJ8338-18 -20T21:12:00 [facility] ([facility])EMERGENCY PROVIDER REPORTREPORT#:[id number] REPORT STATUS: SignedDATE:07/30/19 TIME: 2111 PATIENT: BREANNA JIMENEZ UNIT #: [id number]#: [id number] ROOM/BED:AGE: 29 SEX: F PCP PHYS: No [...] (Auto) (16.0 - 50.0 %) 15.3 L [place] % (Auto) (0.0 - 13.0 %) 5.2 [...] pH (4.6 - 8.0) 6.0 Ur Specific [place] (1.001 - 1.035) 1.017 Urine Protein (NEGATIVE [...] of Care TestingUrinalysis Interpretation Urinalysis NL Re-Evaluation [facility] )( Re-Evaluation/Progress #1Time of Re-Eval 2228)( Re-Eval Status ImprovedRe-Eval Abdomen SoftEval Following Treatment Pt. feels better, Condition improvedPain Re-Evaluation Pain improvedPlan Post Re-Eval Plan discharge Abd Pain MDM Note F < 40The patient is resting comfortably and feels better, is alert and in no distress. The repeat examination is unremarkable and benign; in particular, there is no discomfort at [facility]. The history, exam, diagnostic testing, and [...] 2332 DC 07/29 Tromethamine IV 07/29 2333 2336 Promethazine HCl 25 MG X1ED STA 07/29 2257 DCr 07/29 IM 07/29 2258 230 Ketorolac [...] call to 911. at 0000 at 0024RPT #:[id number] OF REPORTEDFormerly [facility] department fchwvz2194-11-55A32:12:00H.[id number] VAvailable for patient xjtyLGQZIRTUSDZHUE9028-38-73L85:24:32 [facility]"
[2023-06-24] MEDS ORDERED: PROMETHAZINE INJ 25 MG/ML AMP ONE (15:28)
[2023-06-24] MEDS ORDERED: NA CHLORIDE 0.9% 1,000 ML ONE (15:28)
[2023-06-24 16:01] LABS: Specific Gravity 1.031 (1.005-1.030)
[2023-06-24 16:05] LABS: Albumin 3.7 g/dL (3.4-5.0); Albumin/Globulin Ratio 0.9 (1.1-1.8); Bilirubin Total 0.7 mg/dL (0.2-1.0); Globulin 3.9 g/dL (2.3-3.5); Protein, Total 7.6 g/dL (6.4-8.2)
[2023-06-24 16:05] LABS: Specific Gravity > 1.030 (1.005-1.030); Urine Bacteria <20 /HPF (<20); Urine Bilirubin NEGATIVE (Negative); Urine Blood Trace (Negative); Urine Clarity Extremely Turbid (Clear); Urine Color Yellow (Yellow); Urine Glucose NEGATIVE (Negative); Urine Ketones 2+ (Negative); Urine Microscopic Reflex YN ORDER UMIC; Urine Mucus 4+ /HPF (None Seen); Urine Nitrite NEGATIVE (Negative); Urine Protein 1+ (Negative); Urine RBC <5 /HPF (None Seen); Urine Urobilinogen 1+ (Normal); Urine pH 6.5 (5.0-7.0)
[2023-06-24 16:07] LABS: Absolute Lymphocytes (CBC) 1.7 K/uL (0.7-4.9); Absolute Monocytes 0.7 K/uL (0.1-1.3); Absolute Neutrophil 3.7 K/uL (1.8-8.0); Basophils % 0.5 % (0-1.3); Eosinophils % 0.2 % (0-4.4); Hemoglobin 12.6 g/dL (12.0-15.0); Lymphocytes % 27.4 % (15.3-44.8); MCH 25.3 pg (27.0-35.0); MCHC 32.2 g/dL (32.0-36.0); MCV 78.8 fL (80-100); MPV 10.8 fL (7.6-11.3); Monocytes % 10.9 % (3.3-12.3); Platelets 288 thou/uL (152-406); RBC Red Blood Cell Count 4.95 M/uL (3.86-4.86); Red Cell Distribution Width 20.1 % (12.1-15.2)
[2023-06-24] MEDS ORDERED: MORPHINE 4 MG/ML SYR ONE (16:15)
--- NOTE | 2023-06-24 16:42 | RAD REPORT ---
EXAM DESCRIPTION: CT - Abdomen Pelvis W Contrast - 06/24/2023 4:26 pm CLINICAL HISTORY: Abdominal pain COMPARISON: May 2023 TECHNIQUE: Computed axial tomography of the abdomen pelvis was obtained. 100 cc Isovue-300 was admin istered intravenously. Oral contrast was not requested which limits evaluation of bowel and appendix All CT scans are performed using dose optimization technique as appropriate and may include automated exposure control or mA/KV adjustment according to patient size. FINDINGS: Mild fatty infiltration liver Spleen, pancreas, adrenal and left kidney appear unremarkable. Right renal cortical thinning may be secondary to prior inflammation. Cholecystectomy Small umbilical hernia There is no evidence of diverticulitis. Normal appendix No adnexal mass IMPRESSION: No acute abnormality is displayed.
--- NOTE | 2023-06-24 17:13 | ER ---
Nurse's Notes [facility] Name: Efrem Pastor Age: 33 yrs Sex: Female : 1990 Arrival Date: 06/24/2023 Time: 15:04 Bed 4 Private MD: Diagnosis: Abdominal pain, unspecified;Vomiting, unspecified;Diarrhea, unspecified Presentation: 06/23 15:23 Chief complaint: Patient states: N/V/D for 2 days with abdominal pain. Seen at [address] yesterday, nothing specific found. Coronavirus screen: Client denies travel out of the [place] in the last 14 days. At this time, the client does not indicate any symptoms associated with coronavirus-19. Ebola Screen: Patient denies travel to an Ebola-affected area in the 21 days before illness onset. Initial Sepsis Screen: Does the patient meet any 2 criteria? No. Patient's initial sepsis screen is negative. Does the patient have a suspected source of infection? No. Patient's initial sepsis screen is negative. Risk Assessment: Do you want to hurt yourself or someone else? Patient reports no desire to harm self or others. Onset of symptoms was June 23, 2023. 15:23 Method Of Arrival: Ambulatory [facility] 15:23 Acuity: BELINDA 3 [facility] Historical: - Allergies: 15:15 Haldol; 1 15:15 Scopolamine HBr; ll1 - PMHx: 15:15 Acute cutaneous nerve entrapment syndrome; ACNE (Unknown); Anxiety; Gastroparesis; ll1 Irritable bowel syndrome; neuropathy; PTSD; - PSHx: 15:15 bilateral ureter attachment; Cholecystectomy; leep procedure; Lumpectomy of breast; ll1 right breast; - Immunization history:: Adult Immunizations up to date. - Infectious Disease History:: Denies. - Social history:: Smoking status: Reported history of juuling and/or vaping. - Family history:: not pertinent. - Hospitalizations: : No recent hospitalization is reported. Screenin:15 [facility] ED Fall Risk Assessment (Adult) History of falling in the last 3 months, rs5 including since admission No falls in past 3 months (0 pts) Confusion or Disorientation No (0 pts) Intoxicated or Sedated No (0 pts) Impaired Gait No (0 pts) Mobility Assist Device Used No (0 pt) Altered Elimination No (0 pt) Score/Fall Risk Level 0 - 2 = Low Risk Oriented to surroundings, Maintained a safe environment. Abuse screen: Denies threats or abuse. Nutritional screening: No deficits noted. Tuberculosis screening: No symptoms or risk factors identified. Assessment: 15:15 General: Appears in no apparent distress. uncomfortable, Behavior is calm, cooperative. rs5 Pain: Complains of pain in abdomen Pain currently is 7 out of 10 on a pain scale. Quality of pain is described as aching, Is continuous. Neuro: Level of Consciousness is awake, alert, obeys commands, Oriented to person, place, time, situation. Cardiovascular: Patient's skin is warm and dry. Rhythm is regular. Respiratory: Airway Respiratory effort is even, unlabored, Respiratory pattern is regular, symmetrical. GI: Abdomen is round non-distended, Abd is soft and non tender X 4 quads. Reports diarrhea, nausea, Pain is 7 out of 10 on a pain scale. vomiting. : No signs and/or symptoms were reported regarding the genitourinary system. EENT: No signs and/or symptoms were reported regarding the EENT system. Derm: Skin is intact, Skin is pink, warm \T\ dry. Musculoskeletal: Range of motion: intact in all extremities. 16:31 Reassessment: Patient and/or family updated on plan of care and expected duration. Pain rs5 level reassessed. Patient is alert, oriented x 3, equal unlabored respirations, skin warm/dry/pink. Patient states feeling better. 17:00 Reassessment: DC ON HOLD, PT STILL VOMITING. bp Vital Signs: 15:23 BP 115 / 77; Pulse 91; Resp 18; Temp 98(O); Weight 61.23 kg; Height 5 ft. 2 in. ; Pain rs5 10/10; 16:32 BP 112 / 86; Pulse 88; Resp 18; Pulse Ox 99% on R/A; rs5 17:44 BP 130 / 96; Pulse 81; Resp 16; Pulse Ox 100% ; bp 15:23 Body Mass Index 24.69 (61.23 kg, 157.48 cm) rs5 15:23 Pain Scale: Adult rs5 ED Course: 15:08 Patient arrived in ED. mg5 15:09 Faheem Stewart MD is Attending Physician. rn 15:15 Arm band placed on Patient placed in an exam room, on a stretcher. ll1 15:15 Patient has correct armband on for positive identification. Placed in gown. Bed in low rs5 position. Call light in reach. Side rails up X2. 15:15 No provider procedures requiring assistance completed. rs5 15:24 Triage completed. ll1 15:33 Initial lab(s) drawn, by me, sent to lab. Inserted saline lock: 22 gauge in right jg11 antecubital area, using aseptic technique. Blood collected. 15:41 Bebeto Irizarry, RN is Primary Nurse. rs5 16:27 CT Abd/Pelvis - IV Contrast Only In Process Unspecified. EDMS 17:30 IV discontinued, intact, bleeding controlled, No redness/swelling at site. Pressure rs5 dressing applied. Administered Medications: 15:35 Drug: NS 0.9% IV 1000 ml IV at 1000 ml once Route: IV; Rate: 1000 ml; Site: right rs5 antecubital; 16:00 Follow up: Response: No adverse reaction rs5 15:35 Drug: Promethazine IVP 12.5 mg IVP once Route: IVP; Site: right antecubital; rs5 16:01 Follow up: Response: No adverse reaction; Nausea is decreased rs5 16:10 Drug: morphine IVP or IV 4 mg IVP once over 4 mins Route: IVP; Infused Over: 4 mins; rs5 Site: right antecubital; 16:34 Follow up: Response: No adverse reaction; Pain is decreased rs5 17:34 Drug: metoCLOPramide IVP 10 mg IVP once; over 1 to 2 minutes Route: IVP; Site: right bp antecubital; 17:45 Follow up: Response: No adverse reaction rs5 Medication: 16:32 VIS not applicable for this client. rs5 Outcome: 17:12 Discharge ordered by . rn 17:30 Patient left the ED. rs5 17:30 Discharged to home rs5 17:30 Condition: stable 17:30 Discharge instructions given to patient, family, Instructed on discharge instructions, follow up and referral plans. Demonstrated understanding of instructions, follow-up care, Signatures: Dispatcher [employer] EDMS Faheem Stewart MD MD rn Peltier, Brian, RN RN bp Lewis, Lynsay, RN RN 1 Bebeto Irizarry, RN RN rs5 Sherly Palmer mg5 Davion Crowe jg11 Corrections: (The following items were deleted from the chart) 16:33 15:23 61.23 kg; Height 5 ft. 2 in.; BMI: 24.6; Pain 11/18, Adult; ll1 rs5 18:50 18:03 Patient left the ED. rs5 rs5
--- NOTE | 2023-06-24 17:13 | EDPHYS ---
Physician Documentation [facility] Name: Efrem Pastor Age: 33 yrs Sex: Female : 1990 Arrival Date: 06/24/2023 Time: 15:04 Bed 4 Private MD: ED Physician Faheem Stewart HPI: 06/23 15:49 This 33 yrs old Female presents to ER via Ambulatory with complaints of rn Nausea/Vomiting, Abdominal Pain. 15:49 The patient presents to the emergency department with nausea, vomiting, diarrhea, rn abdominal pain. Onset: The symptoms/episode began/occurred yesterday. Possible causes: unknown. The symptoms are aggravated by nothing. The symptoms are alleviated by nothing. Severity of symptoms: At their worst the symptoms were moderate in the emergency department the symptoms are unchanged. The patient has experienced similar episodes in the past. The patient has been recently seen by a physician:. Patient reports 2 days of nausea/vomiting/diarrhea with abdominal pain. Patient has chronic gastroparesis as well as irritable bowel syndrome. Seen at [place] emergency room yesterday, had blood work and imaging and told possibly a stomach bug. States went home and feels bad again. Patient states feels different than her gastroparesis. Reports upper abdominal pain. No blood in emesis or stool.. Historical: - Allergies: 15:15 Haldol; ll1 15:15 Scopolamine HBr; ll1 - PMHx: 15:15 Acute cutaneous nerve entrapment syndrome; ACNE (Unknown); Anxiety; Gastroparesis; ll1 Irritable bowel syndrome; neuropathy; PTSD; - PSHx: 15:15 bilateral ureter attachment; Cholecystectomy; leep procedure; Lumpectomy of breast; ll1 right breast; - Immunization history:: Adult Immunizations up to date. - Infectious Disease History:: Denies. - Social history:: Smoking status: Reported history of juuling and/or vaping. - Family history:: not pertinent. - Hospitalizations: : No recent hospitalization is reported. ROS: 15:49 Constitutional: Negative for fever, chills, and weight loss, Cardiovascular: Negative rn for chest pain, palpitations, and edema, Respiratory: Negative for shortness of breath, cough, wheezing, and pleuritic chest pain, Abdomen/GI: Positive for abdominal pain with nausea/vomiting/diarrhea MS/Extremity: Negative for injury and deformity, Skin: Negative for injury, rash, and discoloration, Neuro: Positive for generalized weakness and malaise Exam: 15:49 Constitutional: This is a well developed, well nourished patient who is awake, alert, rn and in no acute distress. Ambulatory to room without difficulty or assistance Head/Face: Normocephalic, atraumatic. ENT: Dry mucous membranes Cardiovascular: Tachycardic, regular. No pulse deficits. Respiratory: Lungs have equal breath sounds bilaterally, clear to auscultation and percussion. No rales, rhonchi or wheezes noted. No increased work of breathing, no retractions or nasal flaring. Abdomen/GI: Soft, mild epigastric tenderness. No rebound or guarding. Neuro: Awake and alert, GCS 15 Vital Signs: 15:23 BP 115 / 77; Pulse 91; Resp 18; Temp 98(O); Weight 61.23 kg; Height 5 ft. 2 in. ; Pain rs5 10/10; 16:32 BP 112 / 86; Pulse 88; Resp 18; Pulse Ox 99% on R/A; rs5 17:44 BP 130 / 96; Pulse 81; Resp 16; Pulse Ox 100% ; bp 15:23 Body Mass Index 24.69 (61.23 kg, 157.48 cm) rs5 15:23 Pain Scale: Adult rs5 MDM: 15:09 Patient medically screened. rn 17:11 Differential diagnosis: Nonspecific abd pain, gastritis, pancreatitis, diverticulitis, rn viral gastroenteritis, gastroenteritis. Data reviewed: vital signs, nurses notes, lab test result(s), radiologic studies, CT scan, and as a result, I will discharge patient. Counseling: I had a detailed discussion with the patient and/or guardian regarding the historical points, exam findings, and any diagnostic results supporting the discharge/admit diagnosis, lab results, the need for outpatient follow up, to return to the emergency department if symptoms worsen or persist or if there are any questions or concerns that arise at home. Response to treatment: the patient's symptoms have markedly improved after treatment, and as a result, I will discharge patient. Special discussion: Based on the patient's Hx, exam, and Dx evaluation, there is no indication for emergent surgery or inpatient Tx. It is understood by the patient/guardian that if the Sx's persist or worsen they need to return immediately for re-evaluation. I discussed with the patient/guardian in detail that at this point there is no indication for admission to the hospital. It is understood, however, that if the symptoms persist or worsen the patient needs to return immediately for re-evaluation. ED course: No acute findings and workup today. Could still be combination of viral illness versus gastritis versus ulcers versus gastroparesis versus gastroenteritis. Will discharge home with prescription for Reglan as patient states Reglan usually helps her. No acute findings found yesterday at [place] per report either. I have personally reviewed all of the results, including but not limited to blood tests and imaging deemed necessary to safely discharge this patient at this time. All results given to and printed out for patient. I personally went over all the results with the patient and answered all questions. Patient will follow-up with PCP and or specialist as discussed. Return precautions given and understood.. 06/23 15:25 Order name: CBC with Diff rn 06/23 15:25 Order name: CMP; Complete Time: 16:07 rn 06/23 15:25 Order name: Lipase; Complete Time: 16: rn 06/23 15:25 Order name: Test, Urine; Complete Time: 16:07 rn 06/23 15:25 Order name: Urinalysis w/ reflexes; Complete Time: 16:07 rn 06/23 15:25 Order name: CT Abd/Pelvis - IV Contrast Only; Complete Time: 17:08 rn 06/23 15:25 Order name: IV Saline Lock; Complete Time: 15:41 rn 06/23 15:25 Order name: Labs collected and sent; Complete Time: 15:41 rn Administered Medications: 15:35 Drug: NS 0.9% IV 1000 ml IV at 1000 ml once Route: IV; Rate: 1000 ml; Site: right rs5 antecubital; 16:00 Follow up: Response: No adverse reaction rs5 15:35 Drug: Promethazine IVP 12.5 mg IVP once Route: IVP; Site: right antecubital; rs5 16:01 Follow up: Response: No adverse reaction; Nausea is decreased rs5 16:10 Drug: morphine IVP or IV 4 mg IVP once over 4 mins Route: IVP; Infused Over: 4 mins; rs5 Site: right antecubital; 16:34 Follow up: Response: No adverse reaction; Pain is decreased rs5 17:34 Drug: metoCLOPramide IVP 10 mg IVP once; over 1 to 2 minutes Route: IVP; Site: right bp antecubital; 17:45 Follow up: Response: No adverse reaction rs5 Disposition Summary: 06/24/23 17:12 Discharge Ordered Notes: Location: Home rn Problem: new rn Symptoms: have improved rn Condition: Stable rn Diagnosis - Abdominal pain, unspecified rn - Vomiting, unspecified rn - Diarrhea, unspecified rn Followup: rn - With: Private Physician - When: As needed - Reason: Recheck today's complaints, Re-evaluation by your physician Discharge Instructions: - Discharge Summary Sheet rn - Abdominal Pain, Adult rn - Diarrhea, Adult rn - Nausea and Vomiting, Adult rn Forms: - Medication Reconciliation Form rn - Antibiotic programming internship - Prescription Opioid Use rn - Patient Portal Instructions rn - Leadership Thank You Letter rn Prescriptions: - Reglan 10 mg Oral tablet - take 1 tablet ORAL route every 8-10 hours As needed; 20 tablet; Refills: 0, rn Product Selection Permitted Signatures: Dispatcher [employer] EDMS Faheem Stewart MD MD rn Peltier, Brian RN RN Andre Pitt RN RN ll1 Bebeto Irizarry, RN RN rs5 Corrections: (The following items were deleted from the chart) 15:25 15:25 CBC+H.LAB.BRZ ordered. EDMS EDMS 15:25 15:25 COMPREHENSIVE METABOLIC PANEL+C.LAB.BRZ ordered. EDMS EDMS 15:25 15:25 LIPASE+C.LAB.BRZ ordered. EDMS EDMS 15:25 15:25 Test, Urine+UC.LAB.BRZ ordered. EDMS EDMS 15:25 15:25 Urinalysis+U.LAB.BRZ ordered. EDMS EDMS
[2023-06-24] MEDS ORDERED: METOCLOPRAMIDE 10 MG/2mL INJ ONE (17:31)
[2023-06-24 18:24] VITALS: BP 130/96; TEMP 98; O2SAT 100
[2023-06-24 21:53] LABS: Anisocytosis 1+; Blood Morphology Comment NOTED (NOT SEEN); Platelet Estimate ADEQ; White Blood Cell Scan OK (OK)
== END 2023-06-24 18:03 | disposition home or self-care (01) ==
LOC: ER 15:04
DX: R10.9 Unspecified abdominal pain (principal); R11.10 Vomiting, unspecified; R19.7 Diarrhea, unspecified; Z88.5 Allergy status to narcotic agent; Z88.8 Allergy status to other drugs, medicaments and biological substances
CPT/HCPCS: 85025; 81001; 36415; 81025; 83690; 80053; 74177; Q9967; J2550; J2765; J7030

== ENCOUNTER 2023-07-21 17:30 | Inpatient (IN) | payer BC ==
--- OUTSIDE RECORDS SUMMARY | 2023-07-21 17:35 | XMS REPORT | Continuity of Care Document ---
Author Name Unknown Address [address] [facility] [address] [place] [address] [facility] Address 1200 [facility] [address] [place] [address] Care Team Providers Care Wheel Molder Name Role Phone Kelton Daniels Jr. Primary Care Physician + [phone] GIOVANY HAGER Attending Clinician Unavailable Clinic, Gastroenterology Attending Clinician + [phone] Uday Christianson Attending Clinician [phone] Scott Mai DO Attending Clinician [phone] Anselmo Caballero DO Attending Clinician CAIT BRAGG Attending Clinician Unavailable Jose Maki Attending Clinician Unavailable LAB90 Attending Clinician Unavailable Marylou Johnson NP Attending Clinician Ted Schultz Attending Clinician Unavailable Kaelyn Peguero Attending Clinician Unavailable Physician, No Primary or Family Admitting Clinic monse Unavailable UNDEFINED Admitting Clinician Unavailable Payers Payer Name Policy Type Policy Number Effective Date Expirati on Date Source [place] [id number] 2022 00:00:00 2023 00:00:00 BCBS 2 [id number] 2023 00:00:00 Problems Condition Name Condition Details [...] Stomatitis Stomatitis Disease Active 2022-02 00:00: 00 Larua Seybold - Externa l Allergies, Adverse Reactions, [...] See comments 2022-02 00:00: 00 Dystonic reactions [facility] Scopolam ine Propensi ty to adverse reaction s Active Other - See comments 2022-02 00:00: 00 Visual changes [facility] HALOPERI DOL DRUG INGREDI Active Med Other-Cmnt 2022-02 00:00: 00 [facility] SCOPOLAM INE DRUG INGREDI Active Other-Cmnt 2022-02 00:00: 00 [facility] haloperi dol DA Active SV HIVES 5- 00:00: 00 [facility] scopol[facility] ine DA Active SV HIVES 5- 00:00: 00 [facility] No Known Allergie s DA Active U 1- 00:00: 00 [facility] No Known Allergie s DA Active U 0 5-16 00:00: 00 [facility] No Known Allergie s DA Active U 0 5-16 00:00: 00 [facility] scopolam ine DA Active [place] 2020-0 4-10 00:00: 00 [facility] scopolam ine DA Active [place] RASH-HIVES 0 4-10 00:00: 00 [facility] No Known Allergie s DA Active U 0 6-20 00:00: 00 [facility] No Known Allergie s DA Active U 0 20 00:00: 00 [facility] No Known Drug Intolera nces DA Active U 10-24 00:00: 00 [facility] No Known Drug Intolera nces DA Active U NONE 10-24 00:00: 00 [facility] NO KNOWN ALLERGIE S Drug Class Active [facility] Social History Social Habit Start Date Stop Date Quantity Comments Source Sexual orientation K austin Iva - External History of tobacco use Cigarette [...] Stop Date Source Tobacco smoking consumption unknown [facility] Ex-smoker 2023-01-27 00:00:00 2023-01-27 00:00:00 Laura Enrique - External Medications Ordered Medication Name Filled Medication Name Start Date Stop Date Current Medication? Ordering Clinician Indication Dosage Frequency Signature (SIG) Comments Components Source LORazepam (ATIVAN) injection 0.5 mg 06-23 02:03: 00 06-23 02:47 :00 No .5mg 0.5 mg, Slow IV Push, ONCE, 1 dose, On Thu06/23/23 at 2115, RONNIE [facility] proMETHazin e (PHENERGAN) 25 mg in NS 50 mL IV piggyback (CNR) 06-23 01:30: 00 06-23 02:07 :00 No 25mg 25 mg, IV Piggyback, at 200 mL/hr Administer over 15 Minutes, ONCE, 1 dose, On Thu06/23/23 at 2030, [facility] morpHINE (4 mg/mL) injection 4 mg 06-22 23:30: 00 06-22 23:40 :00 No 4mg 4 mg, Slow IV Push, ONCE, 1 dose, On Thu06/23/23 at 1830, STAT [facility] metoclopram parker HCl (REGLAN) injection 10 mg 06-22 23:30: 00 06-22 23:40 :00 No 10mg 10 mg, Slow IV Push, ONCE, 1 dose, On Thu06/23/23 at 1830, [facility] iopamidol (ISOVUE 370-500 mL) injection 75 mL 06-22 23:14: 00 06-22 23:14 :00 No [id number] 75mL 75 mL, Intravenou s, ONCE, 1 dose, On Thu06/23/23 at 1830, Routine [facility] NaCl 0.9% (NS) bolus infusion 1,000 mL 06-22 22:30: 00 06-22 22:53 :00 No 1000mL at 999 mL/hr, 1,000 mL, IV Infusion, ONCE, 1 dose, On Thu06/23/23 at 1730, [facility] famotidine (PEPCID (PF)) injection 20 mg 06-22 21:45: 00 06-22 22:05 :00 No 20mg 20 mg, Slow IV Push, ONCE, 1 dose, On Thu06/23/23 at 1645, [facility] diphenhydrA MINE (BENADRYL) injection 25 mg 06-22 21:45: 00 06-22 22:05 :00 No 25mg 25 mg, Slow IV Push, ONCE, 1 dose, On Thu06/23/23 at 1645, [facility] ondansetron (ZOFRAN (PF)) injection 4 mg 06-22 21:45: 00 06-22 22:03 :00 No 4mg 4 mg, Slow IV Push, ONCE, 1 dose, On Thu06/23/23 at 1645, RONNIE [facility] proMETHazin e 25 mg suppository 06-22 00:00: 00 Yes [id number] 25mg Insert 1 Suppositor y into rectum every 6 (six) hours as needed for Nausea and Vomiting (N/V). [facility] dicyclomine 20 mg tablet 06-22 00:00: 00 Yes [id number] 20mg Take 1 tablet by mouth 4 (four) times daily as needed for Abdominal pain. [facility] metoclopram parker HCl 10 mg tablet 06-22 00:00: 00 Yes [id number] 10mg Take 1 tablet by mouth every 6 (six) hours as needed for Nausea and Vomiting (N/V) or Gastroesop hageal reflux. [facility] proCHLORper azine (COMPAZINE) injection 10 mg 05-29 19:45: 00 05-29 19:10 :00 No 10mg 10 mg, Slow IV Push, ONCE, 1 dose, On 05/30/23 at 1445, RONNIE [facility] diphenhydrA MINE (BENADRYL) injection 50 mg 05-29 19:00: 00 05-29 19:11 :00 No 50mg 50 mg, Slow IV Push, ONCE, 1 dose, On 05/30/23 at 1400, STAT [facility] Brexpiprazo le (Rexulti) 2 MG oral Tablet 02-24 11:47: 34 Yes 2mg Take 2 mg by mouth daily. Laura hall HYDROcodone -Acetaminop hen 10-325 MG oral Tablet 02-24 00:00: 00 Yes [id number] 1{tbl} Q.5D Take 1 tablet by mouth 2 times daily as needed for pain. Laura hall Methocarbam ol 500 MG oral Tablet 02-24 00:00: 00 Yes [id number] 500mg QD Take 1 tablet (500 mg [...] MG oral Tablet 02-12 00:00: 00 Yes [id number] 25mg QD Take 1 tablet (25 mg total) by mouth daily as needed for nausea. [facility] hall Valacyclovi r HCl (Valtrex) 500 MG oral Tablet 2022-02 00:00: 00 Yes [id number] 500mg Take 1 tablet (500 mg total) [...] dose, On Thu12/26/22 at 2030, 1 mL [facility] penicillin g benzathine (BICILLIN L-A) injection [...] ONCE, 1 dose, On Thu12/26/22 at 1945, [facility] ketorolac (TORADOL) injection 30 mg 2022-02 00:45: 00 12-27 00:59 :00 No 30mg 30 mg, Intramuscu lar, ONCE, 1 dose, On Thu12/26/22 at 1845, [facility] hydrocortis one 1 mg/4 mL in nystatin suspension- diphenhydrA MINE solution suspension 2022-02 00:00: 00 12-30 05:59 :00 No [id number] 15mL Take 15 mL by mouth every [...] hall Alprazolam (Xanax) 0.5 MG oral Tablet 03 00:00: 00 Yes .5mg Q.5D Take 1 [...] Observation Time Observation Value Comments S ource Heart rate 2023-06-24 03:09:00 89 /min [facility] Body temperature 2023-06-24 03:09:00 36.83 Caitlyn [facility] Oxygen saturation in Arterial blood by Pulse oximetry 2023-06-24 03:09:00 94 /min [facility] Systolic blood pressure 2023-06-24 03:00:00 138 mm[Hg] [facility] Diastolic blood pressure 2023-06-24 03:00:00 96 mm[Hg] [facility] Respiratory rate 2023-06-24 03:00:00 16 /min [facility] Body height 2023-06-23 20:54:00 157.5 cm [facility] Body weight 2023-06-23 20:54:00 61.236 kg [facility] BMI 2023-06-23 20:54:00 24.69 kg/m2 [facility] Systolic blood pressure 2023-05-30 20:00:00 145 mm[Hg] [facility] Diastolic blood pressure 2023-05-30 20:00:00 104 mm[Hg] [facility] Heart rate 2023-05-30 20:00:00 72 /min [facility] Respiratory rate 2023-05-30 20:00:00 17 /min [facility] Oxygen saturation in Arterial blood by Pulse oximetry 2023-05-30 20:00:00 99 /min [facility] Body temperature 2023-05-30 18:54:00 35.94 Caitlyn [facility] Body height 2023-05-30 18:54:00 157.5 cm [facility] Body weight 2023-05-30 18:54:00 63.504 kg [facility] BMI 2023-05-30 18:54:00 25.61 kg/m2 [facility] Systolic blood pressure 2023-02-24 17:40:00 110 [...] Systolic blood pressure 2022-12-27 02:16:00 111 mm[Hg] [facility] Diastolic blood pressure 2022-12-27 02:16:00 82 mm[Hg] [facility] Heart rate 2022-12-27 02:16:00 93 /min [facility] Body temperature 2022-12-27 02:16:00 37.56 Caitlyn [facility] Respiratory rate 2022-12-27 02:16:00 20 /min [facility] Oxygen saturation in Arterial blood by Pulse oximetry 2022-12-27 02:16:00 96 /min [facility] Body height 2022-12-26 23:57:00 157.5 cm [facility] Body weight 2022-12-26 23:57:00 58.968 kg [facility] BMI 2022-12-26 23:57:00 23.78 kg/m2 [facility] Procedures Procedure Date / Time Performed Performing Clinicia n Source CT ABDOMEN PELVIS W CONTRAST 2023-06-23 23:23:56 Uday Parikh [facility] POCT TEST 2023-06-23 22:01:00 Uday Parikh [facility] LIPASE 2023-06-23 22:00:00 Uday Parikh [facility] COMP. METABOLIC PANEL (54037) 2023-06-23 22:00:00 Uday Parikh [facility] CBC WITH DIFF 2023-06-23 22:00:00 Uday Parikh [facility] URINALYSIS 2023-06-23 22:00:00 Uday Parikh [facility] CBC WITH DIFF 2022-12-27 01:49:00 Marylou Johnson [facility] RAPID STREP SCREEN FOR GROUP A 2022-12-27 00:59:00 Marylou Johnson [facility] NOTICE OF PRIVACY PRACTICES 2022-12-26 23:28:27 Doctor Unassigned, [facility] CONSENT/REFUSAL FOR DIAGNOSIS AND TREATMENT 2022-12-26 23:27:35 Doctor Unassigned, [facility] Encounters Start Date/Time End Date/Time Encounter Type Admission Type Attending [facility] Facility Care Department Encounter ID Source 2020-06-24 15:53:22 Inpatient [facility] [id number] [facility] 2020-05-19 11:42:02 Inpatient [facility] [id number] [facility] 2019-07-30 21:08:00 Inpatient [facility] ER [id number] [facility] 2023-08-11 14:00:00 2023-08-11 14:00:00 Outpatient GIOVANY HAGER [id number] Laura Enrique 2023-08-10 13:30:00 2023-08-10 13:30:00 Outpatient GIOVANY HAGER [id number] [facility]23-[facility] 00:00:00 2023-06-24 14:28:11 Letter (Out) Clinic[facility] [id number] [facility] 2023-06-23 15:55:00 2023-06-23 22:22:00 Emergency Uday Parikh Timothy [facility] [id number] [facility] 2023-05-30 13:55:00 2023-05-30 15:41:00 Emergency Anselmo Caballero [facility] [id number] [facility] 2023-05-04 14:30:00 2023-05-04 14:30:00 Outpatient PREZAS, GIOVANY LAURA PIZANO [id number] Laura Enrique 2023-05-04 11:15:00 2023-05-04 11:15:00 Outpatient PREZAS, GIOVANY LAURA PIZANO [id number] Laura Enrique 2023-05-04 11:00:00 2023-05-04 11:00:00 Outpatient CARRIE BRAGGTIDAR [facility] [id number] [facility] 2023-04-22 00:00:00 2023-04-22 00:00:00 Outpatient PREZAS, GIOVANYLEDY PIZANO [id number] [facility] 2023-04-14 02:00:00 2023-04-14 03:25:00 Emergency EM MakiJose horn [facility] [id number] [facility] 2023-04-10 00:00:00 2023-04-10 00:00:00 Outpatient PREZAS, GIOVANY LAURA PIZANO [id number] Laura Enrique 2023-03-27 09:00:00 2023-03-27 09:00:00 Outpatient PREZAS, GIOVANYLEDY PIZANO [id number] [facility] 2023-03-27 00:00:00 2023-03-27 00:00:00 Outpatient PREZAS, GIOVANY PIZANO [id number] [facility] 2023-03-27 00:00:00 2023-03-27 00:00:00 Outpatient PREZAS, GIOVANYLEDY PIZANO [id number] Laura [facility] 2023-03-26 00:00:00 2023-03-26 00:00:00 Outpatient PREZAS, GIOVANY PIZANO [id number] [facility] 2023-03-26 00:00:00 2023-03-26 00:00:00 Outpatient PREZAS, GIOVANY PIZANO [id number] [facility] 2023-03-25 14:00:00 2023-03-25 14:00:00 Outpatient PREZAS, GIOVANY PIZANO [id number] [facility] 2023-03-10 00:00:00 2023-03-10 00:00:00 Outpatient PREZAS, GIOVANY PIZANO [id number] Laura [facility] 2023-03-09 00:00:00 2023-03-09 00:00:00 Outpatient PREZAS, GIOVANY DIALLOSEY [id number] [facility] 2023-03-04 00:00:00 2023-03-04 00:00:00 Outpatient PREZAS, GIOVANY DIALLOSEY [id number] Laura [facility] 2023-03-03 00:00:00 2023-03-03 00:00:00 Outpatient PREZAS, GIOVANY PIZANO LAURA [id number] [facility] 2023-03-02 00:00:00 2023-03-02 00:00:00 Outpatient PREZAS, GIOVANY PIZANO LAURA [id number] [facility] 2023-03-02 00:00:00 2023-03-02 00:00:00 Outpatient PREZAS, GIOVANY PIZANO LAURA [id number] [facility] 2023-03-02 00:00:00 2023-03-02 00:00:00 Outpatient PREZAS, GIOVANY PIZANO LAURA [id number] [facility] 2023-03-02 00:00:00 2023-03-02 00:00:00 Outpatient PREZAS, GIOVANY PIZANO LAURA [id number] [facility] 2023-02-27 00:00:00 2023-02-27 00:00:00 Outpatient PREZAS, GIOVANY PIZANO LAURA [id number] [facility] 2023-02-25 00:00:00 2023-02-25 00:00:00 Outpatient PREZAS, GIOVANY PIZANO LAURA [id number] [facility] 2023-02-24 11:30:00 2023-02-24 11:30:00 Outpatient PREZAS, GIOVANY DIALLOHUMPHREY PIZANO [id number] [facility] 2023-02-18 00:00:00 2023-02-18 00:00:00 Outpatient PREZAS, GIOVANY LAURA LAURA [id number] Laura Enrique 2023-02-12 00:00:00 2023-02-12 00:00:00 Outpatient PREZAS, GIOVANY PIZANO [id number] Laura Enrique 2023-02-12 00:00:00 2023-02-12 00:00:00 Outpatient PREZAS, GIOVANY PIZANO [id number] [facility] 2023-02-11 00:00:00 2023-02-11 00:00:00 Outpatient PREZAS, GIOVANY PIZANO [id number] [facility] 2023-01-28 00:00:00 2023-01-28 00:00:00 Outpatient PREZAS, GIOVANY PIZANO [id number] Laura [facility] 2023-01-28 00:00:00 2023-01-28 00:00:00 Outpatient PREZAS, GIOVANY PIZANO [id number] Laura [facility] 2023-01-27 13:00:00 2023-01-27 13:00:00 Outpatient LABStephen PIZANO [id number] [facility] 2023-01-27 10:45:00 2023-01-27 10:45:00 Outpatient PREZAS, GIOVANY PIZANO [id number] [facility] 2023-01-27 00:00:00 2023-01-27 00:00:00 Outpatient PREZASGIOVANY [id number] [facility] 2022-12-26 17:57:00 2022-12-26 20:20:00 Emergency Marylou Johnson [facility] [id number] [facility] 2022-12-26 17:57:00 2022-12-26 20:20:00 Emergency X MARYLOU [facility]NSON [facility] ERT [id number] [facility] 2022-06-11 11:10:00 2022-06-11 12:41:00 Emergency EM Ted Schultz [facility] ER [id number] [facility] 2021-02-09 23:10:00 2021-02-10 00:19:00 Emergency EM Kaelyn Peguero [facility] [id number] Results Test Description Test Time Test Comments Results Resul t Comments Source CT ABDOMEN PELVIS W CONTRAST 2023-06-10 00:41:14 ORDERING PHYSICIAN: UDAY PARIKH HISTORY: Nausea/vomiting Abdominal pain, acute, nonlocalized TECHNIQUE: CT abdomen and pelvis with intravenous contrast. Thisexamination was performed according to ALARA principles. COMPARISON: None. FINDINGS:Visualized lower chest: Within normal limits. Hepatobiliary: The gallbladder is surgically absent. Liver, spleen, andpancreas are within normal limits. ? Genitourinary: Adrenal glands are unremarkable. Kidneys are normal in sizewithout hydronephrosis or nephrolithiasis. Cortical scarring associatedwith the right kidney noted. Urinary bladder is unremarkable. Pelvic organsare within normal limits. Bowel: Stomach, small, and large bowel are within normal limits. Noevidence of acute appendicitis. Vascular and retroperitoneum: Aorta and inferior vena cava are withinnormal limits. No lymphadenopathy. Bones: No acute abnormality. [facility] Partial Thrombo Time [id number] 14:50:00 * Test Item Value Reference Range Interpretation Comme nts POC Partial Thrombo Time PE (test code = EDPTTPE) 20 Sec 21-39 L The Hemochron Ci trate Activated Partial ThromboplastinTime (APTT) is a quantitative assay intended for in vitrodiagnostic testing using a citrated venous whole bloodsample. Results are expressed in Plasma Equivalent Seconds. [facility], [address], [place], [address], POC [id number] 05:04:00* Test Item Value Reference Range Interpretation [...] PT value based on a regression analysis. [facility], [address], [address], URINE DRUG SCREEN [id number] 02:46:00* Test Item Value Reference Range Interpretation [...] results should not beused for non-medical purposes. [facility] [address], [address], POC,HCG URINE, [id number] 02:38:00* Test Item Value Reference Range Interpretation Comme nts POC,HCG URINE, QUALITATIVE ( test code = EDHCGU) Negative Negative [facility] [address], [address], URINALYSIS [id number] 02:32:00* Test Item Value Reference Range Interpretation [...] ESTERASE (test code = EDLEUK) Negative Negative [facility] [facility], [address], [place], [address], - BT ABD PELVIS W/O [id number] 02:32:00 [facility] : 1990 Sex: FName: BREANNA JIMENEZ [facility] : 1990 Age/S: 32 / F [address]Unit #: [id number] Loc: [place] [address] Phys: Jose Maki MD Acct: [id number] Dis Date: Status: PRE ER PHONE #: Exam Date: 04/14/2023 7138 FAX #: Reason: epigastric abd pain suspect gastroparesis EXAMS: CPT CODE: [id number] CT ABD PELVIS W/O CONT 51986 - CT ABD PELVIS W/O CONT INDICATION [...] 1 Signed Report (CONTINUED) Name: BREANNA JIMENEZ [facility] : 1990 Age/S: 32 / F [address] Unit #: [id number] Loc: [place] [address] Phys: Jose Maki MD Acct: [id number] Dis Date: Status: PRE ER PHONE #: Exam Date: 04/14/2023 0227 FAX #: Reason: epigastric abd pain suspect gastroparesis EXAMS: CPT CODE: [id number] CT ABD PELVIS W/O CONT 55141 (Continued) CC: Jose Maki MD Technologist:Milagro Rosen RT (R) CT CTDI: 8 DLP: 395 Trnscb Date/Time: 04/14/2023 (231) [email or web address] Orig Print D/T: S: 04/14/2023 (6) PAGE 2 Signed ReportCOMPREHENSIVE METABOLIC [id number] 02:31:00* Test Item Value Reference Range Interpretation [...] The assay for creatinine is traceable tothe IDWY reference method. Chronic kidney disease (CKD) maynot [...] N [facility], [address], [place], [address], POC,[id number] 02:31:00* Test Item Value Reference Range Interpretation Comme nts POC,AMYLASE (test code = EDAMY) 118 U/L 14-97 H [facility] [facility], [address], [place], [address], COMPLETE BLOOD COUNT (CBC)2023-04-14 02:21:00* Test Item [...] code = EDMPVP) 13.3 fL 7.9-13.3 N [facility], [address], [place], [address], UA RFLX MICROSCOPIC [id number] 11:54:00* Test Item Value Reference Range Interpretation [...] Suprapubic PainURINE SOURCE: CLEAN CATCH URINEUR HCG [id number] 11:54:00* Test Item Value Reference Range Interpretation Comme nts UR HCG QUAL (test code = HCGQLU) NEGATIVE NEGATIVE Indication for culture: Suprapubic PainURINE SOURCE: CLEAN CATCH URINE COMPREHENSIVE METABOLIC [id number] 11:49:00* Test Item Value Reference Range Interpretation [...] code = ALKP) 105 U/L 45-117 N [id number] 11:49:00* Test Item Value Reference Range Interpretation Comme nts AMYLASE (test code = PARAM) 73 IU/L 25-115 N [id number] 11:49:00* Test Item Value Reference Range Interpretation Comme nts LIPASE (test code = LIP) 134 U/L 73-393 N CBC W/AUTO [id number] 11:33:00* Test Item Value Reference Range Interpretation [...] code = RBCM) NO NORMAL COMPREHENSIVE METABOLIC [id number] 16:11:00* Test Item Value Reference Range Interpretation [...] > or = 60 ml/min/1.73M2IF PATIENT IS -[place], MULTIPLY REPORTED RESULT BY1.21. [Automated message] The [...] code = ALKP) 139 U/L 45-117 H [id number] 16:11:00* Test Item Value Reference Range Interpretation Comme nts LIPASE (test code = LIP) 108 U/L 73-393 N URINALYSIS W REFLEX [id number] 16:05:00* Test Item Value Reference Range Interpretation [...] UAMICRO) Y= DO UA MICRO UR HCG [id number] 16:05:00* Test Item Value Reference Range Interpretation Comme nts UR HCG QUAL (test code = HCGQLU) NEGATIVE NEGATIVE URINALYSIS W REFLEX [id number] 16:05:00* Test Item Value Reference Range Interpretation [...] = UAMICRO) Y= DO UA MICRO UA [id number] 16:05:00* Test Item Value Reference Range Interpretation Comme nts UA WBC (test code = WBCU) 0-2 #/hpf 0-5 UA RBC (test code = RBCU) 0-2 #/hpf 0-5 UA EPITHELIAL CELLS (test co de = EPIU) 2+ /hpf NEG,FEW A UA BACTERIA (test code = BACU) FEW /hpf NEGATIVE A UA AMORPHOUS SEDIMENT (test code = AMORU) FEW /hpf NEG,FEW UR HCG [id number] 16:05:00* Test Item Value Reference Range Interpretation Comme nts UR HCG QUAL (test code = HCGQLU) NEGATIVE NEGATIVE URINALYSIS W REFLEX [id number] 16:05:00* Test Item Value Reference Range Interpretation [...] UAMICRO) Y= DO UA MICRO UR HCG [id number] 16:05:00* Test Item Value Reference Range Interpretation Comme nts UR HCG QUAL (test code = HCGQLU) NEGATIVE NEGATIVE DRUGS OF ABUSE [id number] 16:01:00* Test Item Value Reference Range Interpretation Comme nts UR COCAINE (test code = COCAU) NEGATIVE ng/ml NEGATIVE UR CANNABINOIDS (test code = CANU) POSITIVE ng/ml NEGATIVE A VALUE EXCEEDS CRITICAL LEVEL. CRITICAL VALUE CALLEDTO AND CRITICAL VALUE READ BACK BY HUBER DOWNING RN 1604 06/24/20. Chas Dixon POSITIVE URINE DRUG SCREEN [...] 300 NG/MLPHENCYCLIDINE 25 NG/ML URINALYSIS W REFLEX [id number] 15:58:00* Test Item Value Reference Range Interpretation [...] NEEDED? (test code = UAMICRO) UR HCG [id number] 15:58:00* Test Item Value Reference Range Interpretation Comme nts UR HCG QUAL (test code = HCGQLU) NEGATIVE NEGATIVE CBC W/AUTO [id number] 15:52:00* Test Item Value Reference Range Interpretation [...] = RBCM) NO NORMAL URINALYSIS W REFLEX [id number] 13:00:00* Test Item Value Reference Range Interpretation [...] Y= DO UA MICRO UA ICTOTEST FOR [id number] 13:00:00* Test Item Value Reference Range Interpretation Comme nts UA ICTOTEST FOR BILIRUBIN (t est code = ICTOU) POSITIVE NEGATIVE A UA [id number] 13:00:00* Test Item Value Reference Range Interpretation Comme nts UA WBC (test code = WBCU) 0-2 #/hpf 0-5 UA RBC (test code = RBCU) 3-5 #/hpf 0-5 UA EPITHELIAL CELLS (test co de = EPIU) FEW /hpf NEG,FEW UA BACTERIA (test code = BACU) FEW /hpf NEGATIVE A UA MUCUS (test code = MUCU) 1+ /hpf NEG,FEW A UR HCG [id number] 13:00:00* Test Item Value Reference Range Interpretation Comme nts UR HCG QUAL (test code = HCGQLU) NEGATIVE NEGATIVE DRUGS OF ABUSE [id number] 12:57:00* Test Item Value Reference Range Interpretation Comme nts UR COCAINE (test code = COCAU) NEGATIVE ng/ml NEGATIVE UR CANNABINOIDS (test code = CANU) POSITIVE ng/ml NEGATIVE A VALUE EXCEEDS CRITICAL LEVEL. CRITICAL VALUE CALLEDTO AND CRITICAL VALUE READ BACK BY NAIN HILTON RN 1257 05/19/20. TenaRuben POSITIVE URINE DRUG SCREEN TEST RESULTS ARE [...] 300 NG/MLPHENCYCLIDINE 25 NG/ML URINALYSIS W REFLEX [id number] 12:56:00* Test Item Value Reference Range Interpretation [...] Y= DO UA MICRO UA ICTOTEST FOR [id number] 12:56:00* Test Item Value Reference Range Interpretation Comme nts UA ICTOTEST FOR BILIRUBIN (t est code = ICTOU) POSITIVE NEGATIVE A UR HCG [id number] 12:56:00* Test Item Value Reference Range Interpretation Comme nts UR HCG QUAL (test code = HCGQLU) NEGATIVE NEGATIVE URINALYSIS W REFLEX [id number] 12:53:00* Test Item Value Reference Range Interpretation [...] UAMICRO) Y= DO UA MICRO UR HCG [id number] 12:53:00* Test Item Value Reference Range Interpretation Comme nts UR HCG QUAL (test code = HCGQLU) NEGATIVE NEGATIVE URINALYSIS W REFLEX [id number] 12:53:00* Test Item Value Reference Range Interpretation [...] UAMICRO) Y= DO UA MICRO UR HCG [id number] 12:53:00* Test Item Value Reference Range Interpretation Comme nts UR HCG QUAL (test code = HCGQLU) NEGATIVE NEGATIVE - XR ABDOMEN [id number] 12:16:00 [facility] : 1990 Sex: F FAX: Sawyer Centeno II [place]: St: PRE Name: BREANNA QUEEN FSED : 1990 Age/S: 30/F [address] Unit #: [id number] Loc: [place] [address] Phys: Sawyer Centeno II, MD Acct: [id number] Dis Date: Status: PRE ER PHONE #: Exam Date: 05/19/2020 1212 FAX #: Reason: abdominal pain EXAMS: CPT CODE: [id number] XR ABDOMEN 2V 08060 - XR ABDOMEN 2V PROVIDED REASON FOR [...] RT Bekah (R) CT Trnscrd Date/Time/By: 05/19/2020 (9416) : By: FarhadKEC2 Orig Print D/T: S: 05/19/2020 (4262) PAGE 1 Signed ReportBASIC METABOLIC PANEL 2020-05-19 [...] > or = 60 ml/min/1.73M2IF PATIENT IS -ST LUCI[place], MULTIPLY REPORTED RESULT BY1.21. [Automated message] The system which generated this result transmitted reference range: >=60. The reference range was not used to interpret this result as normal/abnormal. CREATININE (test code = CREAT) 0.64 mg/dl 0.55-1.02 N CALCIUM (test code = CA) 9.8 mg/dL 8.5-10.1 N LIVER [id number] 12:08:00* Test Item Value Reference Range Interpretation [...] code = ALKP) 119 U/L 45-117 H [id number] 12:08:00* Test Item Value Reference Range Interpretation Comme nts LIPASE (test code = LIP) 67 U/L 73-393 L CBC W/AUTO [id number] 11:43:00* Test Item Value Reference Range Interpretation [...] = RBCM) NO NORMAL URINALYSIS W REFLEX [id number] 22:06:00* Test Item Value Reference Range Interpretation [...] MUCU) 2+ /hpf NEG,FEW A BASIC METABOLIC [id number] 21:54:00* Test Item Value Reference Range Interpretation [...] > or = 60 ml/min/1.73M2IF PATIENT IS -ST LUCI[place], MULTIPLY REPORTED RESULT BY1.21. CREATININE (test code = CREAT) 0.70 mg/dL 0.51-0.95 N CALCIUM (test code = CA) 9.3 mg/dL 8.5-10.1 N LIVER [id number] 21:54:00* Test Item Value Reference Range Interpretation [...] code = ALKP) 69 U/L 50-136 N [id number] 21:54:00* Test Item Value Reference Range Interpretation Comme nts LIPASE (test code = LIP) 63 U/L 73-393 L BASIC METABOLIC [id number] 21:53:00* Test Item Value Reference Range Interpretation [...] > or = 60 ml/min/1.73M2IF PATIENT IS -ST LUCI[place], MULTIPLY REPORTED RESULT BY1.21. CREATININE (test code = CREAT) 0.70 mg/dL 0.51-0.95 N CALCIUM (test code = CA) 9.3 mg/dL 8.5-10.1 N LIVER [id number] 21:53:00* Test Item Value Reference Range Interpretation [...] ( test code = ALKP) U/L 50-136 [id number] 21:53:00* Test Item Value Reference Range Interpretation Comme nts LIPASE (test code = LIP) 63 U/L 73-393 L BASIC METABOLIC [id number] 21:52:00* Test Item Value Reference Range Interpretation [...] > or = 60 ml/min/1.73M2IF PATIENT IS -ST LUCI[place], MULTIPLY REPORTED RESULT BY1.21. CREATININE (test code = CREAT) 0.70 mg/dL 0.51-0.95 N CALCIUM (test code = CA) 9.3 mg/dL 8.5-10.1 N LIVER [id number] 21:52:00* Test Item Value Reference Range Interpretation [...] ( test code = ALKP) U/L 50-136 [id number] 21:52:00* Test Item Value Reference Range Interpretation Comme nts LIPASE (test code = LIP) 63 U/L 73-393 L BASIC METABOLIC [id number] 21:51:00* Test Item Value Reference Range Interpretation [...] > or = 60 ml/min/1.73M2IF PATIENT IS -ST LUCI[place], MULTIPLY REPORTED RESULT BY1.21. CREATININE (test code = CREAT) 0.70 mg/dL 0.51-0.95 N CALCIUM (test code = CA) 9.3 mg/dL 8.5-10.1 N LIVER [id number] 21:51:00* Test Item Value Reference Range Interpretation [...] ( test code = ALKP) U/L 50-136 [id number] 21:51:00* Test Item Value Reference Range Interpretation Comme nts LIPASE (test code = LIP) 63 U/L 73-393 L BASIC METABOLIC [id number] 21:49:00* Test Item Value Reference Range Interpretation [...] = CA) 9.3 mg/dL 8.5-10.1 N LIVER [id number] 21:49:00* Test Item Value Reference Range Interpretation [...] ( test code = ALKP) U/L 50-136 [id number] 21:49:00* Test Item Value Reference Range Interpretation Comme nts LIPASE (test code = LIP) 63 U/L 73-393 L BASIC METABOLIC [id number] 21:48:00* Test Item Value Reference Range Interpretation [...] = CA) 9.3 mg/dL 8.5-10.1 N LIVER [id number] 21:48:00* Test Item Value Reference Range Interpretation [...] ( test code = ALKP) U/L 50-136 [id number] 21:48:00* Test Item Value Reference Range Interpretation Comme nts LIPASE (test code = LIP) U/L 73-393 BASIC METABOLIC [id number] 21:46:00* Test Item Value Reference Range Interpretation [...] (test code = CA) mg/dL 8.5-10.1 LIVER [id number] 21:46:00* Test Item Value Reference Range Interpretation [...] ( test code = ALKP) U/L 50-136 [id number] 21:46:00* Test Item Value Reference Range Interpretation Comme nts LIPASE (test code = LIP) U/L 73-393 CBC W/AUTO [id number] 21:43:00* Test Item Value Reference Range Interpretation [...] 0.0-0.1 N Notes Date/Time Note Provider Source 2023-06-23 22:15:00 2018-64-52U47:15:00Formatting of this no te might be different from the original.Pt given printed and verbal discharge instructions regarding nausea and vomiting, encouraged hydration,Prescriptions provided to patientDiscussed ibuprofen and to take with food to avoid GI distress.Pt verbalized understanding of instructions, pt awake alert oriented, resp reg unlabored, skin w/d, color appropriate for race, moves all ext well,pt encouraged to follow up with pcpAdvised to seek medical attention for new/prolonged/worsening of symptomsNo adverse reaction to meds given in ER noted upon dischargePIV d'cd, dressing to site, catheter in tact.Awake, alert oriented, resp reg unlabored, skin w/d, in no apparent distress, 16332-5Cssnprdcl department RmzmVU0721-00-65O75:45:07[facility] NoteTXT1.2.840.139314.1.13.104.2.7.2.930665 |[id number] for patient hvft79900-0QjyfIOQPFBKRSALCgisargvt C-CDA narrative rrwv983428189Nxrmrz-Pwjxj McInnis RN[address] YlomAwejgprzlNxlyefuxcKAUI1832400668JVHHJPT ZZTYLADUDQFFCAL0129-95-35U75:45:071.2.840.1 96795.1.72.3.15|1.2.840.689650.1.13.104.2.7 .2.727879_[id number] Flaquita Eid RN [facility] 2023-06-23 21:40:00 2884-59-46L13:40:00Formatting of this no te might be different from the original.After Phenergan gtt finished patient stated "feeling disoriented." DO notified that Ativan has not been given yet. DO to bedside. Per DO okay to give Ativan then discharge. 57858-2Qxbolzkpz department EvtzDV1816-44-95Y38:50:54[facility] NoteTXT1.2.840.963536.1.13.104.2.7.2.542018 |[id number] for patient ptad43153-3RgidUNRGVLTKGSPLslqonmmd C-CDA narrative text[address] [id number] COMMUNITY HOSPITALVDBUSNAQJXXTOXZ6709-22-41H89:50:541.2.840.1 22820.1.72.3.15|1.2.840.999859.1.13.104.2.7 .2.727879_[id number] [facility] 2023-06-23 20:13:29 3760-02-54F18:13:29Formatting of this no te might be different from the original.D/c hold due to patient actively vomiting while discussing discharge with her. Dr Mai notified and reassessed patient at bedside.New orders received. 25509-9Kzmsfzivf department JswzCG6761-78-33W87:14:08[facility] NoteTXT1.2.840.225642.1.13.104.2.7.2.672178 |[id number] for patient pzqf52014-3PkxgGBAWAXRKCQNFygkrdudu C-CDA narrative [id number] E Linkes RNUT[address] [id number] COMMUNITY HOSPITALREMGOBYLXQONAKC7338-86-72W72:14:081.2.840.1 81440.1.72.3.15|1.2.840.325524.1.13.104.2.7 .2.727879_[id number] Kezia Fox RN [facility] 2023-06-23 19:02:59 1304-01-36C68:02:59Formatting of this no te might be different from the original.Nurse ReportReport given to BRUCE Hopson. Chief complaint, assessment findings, [place] [address]-4Kpkhgcmxc department YzdvZM3428-50-38Z89:03:03[facility] NoteTXT1.2.840.003876.1.13.104.2.7.2.955202 |[id number] for patient dkjg83148-0GfnmPAJYODHYTUYMozytwyyl C-CDA narrative [id number] Angela Chidi [address]QhjjLaydbaidtVjwjcslcoTEVG0337860396VJYVCDY IUMURUHYKDVDQIJ4728-38-61G56:03:031.2.840.1 67593.1.72.3.15|1.2.840.957155.1.13.104.2.7 .2.727879_[id number] Nicole Murillo RN [facility] 2023-06-23 16:18:00 7565-07-46G02:18:00Formatting of this no te might be different from the original.EKG preformed and given to provider. [address]-9Jlhtvjlwm[address] VooiSH9512-22-65D61:28:50[facility] department NoteTXT1.2.840.880150.1.13.104.2.7.2.798904 |[id number] for patient wsva61428-8ZvcxXSASAWNAAHNKzcfvrjsc C-CDA narrative [id number] L Barker RN[address]YpfdYrxusgkvaLgfuilwyzJWYL1634976131YCVEIIZ AJYNDRQDQPYWCLU7290-58-78C02:28:501.2.840.1 05323.1.72.3.15|1.2.840.625527.1.13.104.2.7 .2.727879_[id number] Karlie Neil RN [facility] 2023-06-23 16:15:00 9591-68-28H60:15:00Formatting of this no te might be different from the original.Received call from 911 dispatch, stated that the patient was in the lobby and called 911 and that she was having chest pain and wanted an ambulance to transport her to another hospital due to no one seeing her. Prior to receiving the call from 911 pt was placed in fast track 4 for an egk due to her banging on the triage door and yelling in the lobby she was having chest pain. Notified dispatch of the ongoing occurrence, she reported that she had the patient on the other line and she was going to speak with her again. Dispatch came back to the line and informed me "the patient said she's okay now that she's in a room." Notified dispatch that after the patient receives her EKG and the provider reads the EKG, that she will have to go back to the lobby. The patient was also notified of the plan. 20400-7Jepfoavar department HuztFZ2841-75-95F17:26:09[facility] NoteTXT1.2.840.068193.1.13.104.2.7.2.767252 |[id number] for patient renc49002-9JuphKSXYCDPNIXLNrzrciqdl C-CDA narrative textUT[address] IrciVjtawagoiNhcmneuauPUBK9882669499KDVHRUD ZEWPPREQVIAZXPO6793-39-22S68:26:091.2.840.1 99073.1.72.3.15|1.2.840.767646.1.13.104.2.7 .2.727879_[id number] [facility] 2023-06-23 15:51:27 8705-21-12J31:51:27Formatting of this no te might be different from the original.From ems [place] states" we pick her at her home with complaint of n&v, abd pain on left upper quadrant. She has hx of gastroperesis, last flare up was a month ago, initial assessment she is diaphoretic, cold skin, we started g 20 r ac iv, 300ml os nss bolus give, zofran 4mg and 12.5 prometazine"Aox4, rr even and non labored, placed on the waiting area. 47842-8Wzoblwfjm department Triage vpsaZR5059-08-56U32:54:25[facility] Triage noteTXT1.2.840.035258.1.13.104.2.7.2.586821 |[id number] for patient zbst01471-4Zhaqkuzaz department NoteLNNARRATIVEFormatted C-CDA narrative inuh368539215Gtzrjniq D Latorilla RN[id number] LZOJRJMHCWSVBZV8473-62-79K68:54:251.2.840.1 06058.1.72.3.15|1.2.840.197684.1.13.104.2.7 .2.727879_[id number] Marline Rachel RN [facility] 2023-06-23 15:47:00 7911-44-12J99:47:00Formatting of this no te might be different from the original.Pt care to me at 1999.Persistent vomiting.Treated with phenergan and ativan.Discharged much improvedScott Mai DO06/23/232204 28541-8Otlyrjwkj Emergency department BzrvEE9808-47-16M83:05:21Physician Emergency department NoteTXT1.2.840.650502.1.13.104.2.7.2.593546 |[id number] for patient owqd36043-2Wvbxmykqf department NoteLNNARRATIVEFormatted C-CDA narrative textEM-EMERGENCY MEDICINE STAFFEM-EMERGENCY MEDICINE STAFFUTMB[address] [id number] MEDICAL CENTERSJLKXGCPHLIDDWQ9720-03-90S82:05:211.2.840.1 44715.1.72.3.15|1.2.840.900714.1.13.104.2.7 .2.727879_[id number] EM-EMERGENCY MEDICINE STAFF [facility] 2023-05-30 15:40:45 3315-31-94A86:40:45Formatting of this no te might be different from the original.PT D/C home. GCS15, VS stable. Given D/C paperwork. Pt ambulatory at time of discharge. Pt educated on med usage, follow up care, s/s worsening condition, need for hydration. Pt verbalized understanding.Pt ambulated from ED in NAD, pt to waiting room to await ride home 21599-3Yixonusqg department ZpvmHU3942-88-07C11:41:05[facility] NoteTXT1.2.840.906843.1.13.104.2.7.2.485070 |[id number] for patient yksa84822-1LgtnBDJLDWHBPAOEmxxwssnk C-CDA narrative cmun432560239Mneo E Linkes RN[address] [id number] COMMUNITY HOSPITALPQIUXVHAIRTYACD1762-73-19F15:41:051.2.840.1 28117.1.72.3.15|1.2.840.557117.1.13.104.2.7 .2.727879_[id number] Kezia Fox RN [facility] 2023-05-30 13:50:56 6253-94-21F47:50:56Formatting of this no te might be different from the original.Pt to ED via [facility] N/V/Abd pain starting 4days ago worsening this morning.Seen at [facility] this morning and given phenergan and IVF and was DC. Pt states she does not feel better so she came to [facility] ED.4mg zofran IVP and 100mL NS given en route. 75181-1Vygvjyioy department Triage vcbqUY3663-60-35A95:54:25[facility] Triage noteTXT1.2.840.810784.1.13.104.2.7.2.066619 |[id number] for patient pvpv23278-8Fydmvaowv department NoteLNNARRATIVEFormatted C-CDA narrative kuco391036658Xahybs R Potter RN[address]QprfTiepfmcubOzkttsxoiGEUI1015643758ZGFAANI RNHDXCTKOFSAYPQ9103-32-58D47:54:251.2.840.1 30641.1.72.3.15|1.2.840.881023.1.13.104.2.7 .2.727879_[id number] Nallely Minaya RN [facility] 2023-04-14 02:04:00 IB3844928534oPsH9FXMHhxNB338Ov8YHYgD2k7l EK1 oIt/7FVqVUxzIzhydcjDsKnRqP1oDVotq8818-91-51 T02:04:00 [facility] ([facility])EMERGENCY PROVIDER REPORTREPORT#:[id number] REPORT STATUS: SignedDATE:04/14/23 TIME: 0204 PATIENT: BREANNA JIMENEZ UNIT #: [id number]#: [id number] ROOM/BED:AGE: 32 SEX: F PCP PHYS: No Primary or Family PhysicianSERVICE AUTHOR: Jose Maki MD * ALL edits or amendments must be made on the electronic/computer document * HPI-Abd Pain F Under 40 Free Text HPI NotesFree Text HPI Onglo12-aagu-inx presents with abdominal pain that started around [...] Ox 100 04/13 0208 B/P 165/107 04/13 020 B/P Mean 126 04/14 207 O2 Delivery Room air 04/14 207 Temp 97.3 04/14 207 Pulse 83 04/14 207 Resp 19 04/14 207 Last Documented: Result Date Time Pulse Ox 100 04/13 0208 B/P 165/107 04/13 020 B/P Mean 126 04/14 207 O2 Delivery Room air 04/14 207 Temp 97.3 04/14 207 Pulse 83 04/13 020 Resp 19 04/13 020 Review of Vital Signs Reviewed, Vital signs [...] (5.0 - 8.0) 7.0 POC Ur Specif Deerton (1.001 - 1.035) 1.025 POC Urine Protein [...] SCAN - CT ABD PELVIS W/O CONT 03/05 0227 Report Impression - Status: SIGNED Entered: 04/14/2023 0236 IMPRESSION:No acute findings. Specifically the stomach is not significantly distended.Impression By: FarhadNH16 Leanne KILPATRICK MD Re-Evaluation MDM Free Text MDM [...] 4 MG X1ED STA 04/13 0233 DC 04/13 IV 04/13 0234 0238 Ketorolac 15 MG X1ED STA 04/13 0208 DC 04/13 Tromethamine IV 04/13 020 0219 Electrolytic, Caloric, And Elvia Sig/Ayanna Start [...] STA 04/13 0208 DC / IV 04/13 020 0219 Metoclopramide HCl 10 MG X1ED STA 04/13 0208 DCr / IV 04/13 020 0219 Differential Diagnosis)( Differential Diagnosis Acute abdominal [...] 0208 Pulse 83 04/13 0208 Resp 19 04/138 All vital signs available at the time [...] or a call to 911. at 0504RPT #:[id number] OF REPORTEDEmergency department xnaojl8689-62-88A41:04:00H.ITXB74857123-987 1AVAvailable for patient wkmySDLWATFLMKAWGG1308-25-31Y75:04:38 HCARG 2023-02-24 11:47:47 4021-60-08U90:47:47Formatting of this no te is different from the original.Chief ComplaintPatient presents withFollow-Up Visit1 month follow up visitPaLauren Wuectronically signed by Miriam French LVN at 02/24/2023 11:48 AM JZL30570-4Ldxfa EhasJY1663-31-22A02:48:14Nurse NoteTXT1.2.840.653192.1.13.131.2.7.2.289034 |[id number] for patient eyhp24275-8Rvmsl NoteLNNARRATIVEFormatted C-CDA narrative [facility] [facility] CenterAUYHSMLESJPTKAHTZE6823164847JCDC5777-8 02-24T11:48:141.2.840.343559.1.72.3.15|1.2.8 40.109525.1.13.131.2.7.2.727879_[id number] [facility] 2022-06-11 11:33:00 CW7215963990EI/u9pJGpwttsvCcJg2lS9H5hlnd c+e PBR61jehFcfE4+PGoNFtLyEOKFJDEEOVc5562-20-11 T11:33:00 [facility] ([facility])EMERGENCY PROVIDER REPORTREPORT#:[id number] REPORT STATUS: SignedDATE:06/11/22 TIME: 1133 PATIENT: BREANNA JIMENEZ UNIT #: [id number]#: [id number] ROOM/BED:AGE: 32 SEX: F PCP PHYS: Undefined [...] B/P 156/96 05/ 1113 B/P Mean 116 06/11 1113 O2 [...] % (Auto) (16 - 50 %) 22.9 Angelina % (Auto) (0.0 - 13.0 %) 9.8 [...] pH (4.6 - 8.0) 7.0 Ur Specific Deerton (1.001 - 1.035) 1.020 Urine Protein (NEGATIVE [...] yesterday. After discussion patient states was [facility] yesterdayand was prescribed compazine/reglan after blood [...] X1ED STA 05/ 1141 DC 05/03 IV 05/ 1240 1155 Sodium Chloride 1,000 ML X1ED STA 05/ 1118 DC 05/03 IV 05/03 1217 1123 Gastrointestinal Drugs Sig/Ayanna Start time Last Medication Dose Route Stop Time Status Admin Prochlorperazine 5 MG X1ED STA / 1118 DC 05/03 Edisylate IV / 1119 1124 Patient Discharge Departure Vital Signs/ConditionVital [...] or a call to 911. at 1245RPT #:[id number] OF REPORTEDEmergency department kjtzgj9214-14-81R71:33:00H.FKNX56038395-737 5AVAvailable for patient qkiyIBRRRCWQAMCGVT5949-08-42Z65:45:50 [facility] 2021-02-09 23:43:00 DE0906972329towBBuUxyu6wMfuP8ZibGFVhg+JM qb4 YZGbyBPTc4U2Jk4S5lEm6gCcyOeYLfmU30153-14-61 T23:43:00 [facility] ([facility])EMERGENCY PROVIDER REPORTREPORT#:[id number] REPORT STATUS: SignedDATE:02/09/21 TIME: 2343 PATIENT: BREANNA JIMENEZ UNIT #: [id number]#: [id number] ROOM/BED:AGE: 30 SEX: F PCP PHYS: No Primary or Family PhysicianSERVICE AUTHOR: Kaelyn Peguero MD * ALL edits or amendments must be made on the electronic/computer document * UZP-Xbl-Sruw Illness GeneralConfirmed Patient YesPatient Type New patientInitial Greet Date/Time 02/09/212 PresentationChief Complaint Body aches, Chills, Cough Free Text HPI NotesFree Text HPI Oreaa31-egbl-kgk female comes emergency room complaining of cough, body aches, chills, that began 2 days ago. Patient has been traveling in [place] and apparently although she has been [...] biopsy/procedure (2009). Additional Surgical Historybilateral ureter reattachment 1997 LEE [...] Admin Methylprednisolone 125 MG X1ED STA 02/09 2345 DC 02/09 Sodium Succinate IM 02/09 2347 [...] new symptoms or worsening symptoms. at 0652RPT #:[id number] OF REPORTEDEmergency department cqyxyt5805-12-84V36:43:00H.VNGX89024124-635 8AVAvailable for patient cpoyIAEMYYGDTCVDUJ0734-49-72N47:53:06 [facility] 2020-[facility]-24 15:35:00 GRdwenugmco84392405NX5UF+J4Imlilzkd1qacw n9M bGcw++6/1fcxlA3pzuLfc9+NnE7/PVle5nq1F2b7989 02-13-15T15:35:00 [facility] ([facility])EMERGENCY PROVIDER REPORTREPORT#:[id number] REPORT STATUS: SignedDATE:06/24/20 TIME: 1535 PATIENT: BREANNA JIMENEZ UNIT #: [id number]#: [id number] ROOM/BED:AGE: 30 SEX: F PCP PHYS: No Primary or Family PhysicianSERVICE AUTHOR: Maicol Coy MD * ALL edits or amendments must be made on the electronic/computer document * HPI-Abd Pain F Under 40 GeneralInitial Greet Date/Time 06/24/20 1529PCPDr. [place] in [place] PresentationChief Complaint Abdominal pain, Nausea, Vomiting [...] Nothing Free Text HPI NotesFree Text HPI Apegi18e M2 LMP 19 May 2020 c/o acute on chronic gastroparesis related to IBS and/or THC use for past 2d with nonbloody N/V x 6. She is visiting from [place]. Risk-Abd Pain F Under 40)( Ectopic Risk [...] % (Auto) (16 - 50 %) 48.2 Angelina % (Auto) (0.0 - 13.0 %) 13.0 [...] pH (4.6 - 8.0) 7.0 Ur Specific [place] (1.001 - 1.035) 1.020 Urine Protein (NEGATIVE [...] as indicated in the discharge instructions. [facility] NoteThere is no historical, physical exam, laboratory [...] the plan [place]. [place] [address]RPT #:[id number] OF REPORTEDEmerfulton county hospital department [id number]:35:00H.[id number] 8AVAvailable for patient jazyFKISDONJWAPHZA9775-21-79A63:53:15 [facility] 2020-05-19 12:11:00 [id number] 3xk VNu8kcWUMyqnS9qZpzbPQb2gIEtPsXI9J4MBLQ3o963 02-12-09T12:11:00 [facility] ([facility])EMERGENCY PROVIDER REPORTREPORT#:[id number] REPORT STATUS: SignedDATE:05/19/20 TIME: 1211 PATIENT: BREANNA QUEEN UNIT #: [id number]#: [id number] ROOM/BED:AGE: 30 SEX: F PCP PHYS: Brayan [...] and that she has GI specialist in [facility] whose name is Dr. Hendrix. She tells [...] 1128 B/P Mean 120 05/198 Temp 36.9 05/20 1127 Pulse 84 05/19 1128 Resp 18 05/20 1127 Last Documented: Result Date Time Pulse Ox 98 05/19 1128 B/P 158/101 05/20 1127 B/P Mean 120 [...] pH (4.6 - 8.0) 6.0 Ur Specific [place] (1.001 - 1.035) >= 1.030 Urine Protein [...] (Auto) (16 - 50 %) 9.5 L Angelina % (Auto) (0.0 - 13.0 %) 4.3 [...] Entered: 05/19/2020 1219 IMPRESSION:No acute process. Location: [id number] By: Emily CABALLERO M.D. Imaging StatementRadiographic studies [...] Pulse 84 05/19 1128 Resp 18 05/198 Last Documented: Result Date Time Pulse Ox 98 05/19 1128 B/P 158/101 04/ 1128 B/P Mean 120 05/19 1128 Temp 36.9 05/19 1128 Pulse 84 05/19 1128 Resp 18 05/198 All vital signs available at the time [...] HTN F/u with PCP/other doc at 1708RPT #:[id number] OF REPORTEDEmergency department odbwud0875-42-16S38:11:00H.[id number] 8AVAvailable for patient xewuCLVASUZIPOKXFN2956-50-36Y19:08:49 [facility] 2019-07-30 21:12:00 [id number]+z44of/FcEkEtU j+e WLjKuNXh4qPRZbPUHuXLYF7csHtJc0lAZt646jL6592 T21:12:00 [facility] ([facility])EMERGENCY PROVIDER REPORTREPORT#:[id number] REPORT STATUS: SignedDATE:07/30/19 TIME: 2111 PATIENT: BREANNA JIMENEZ UNIT #: [id number]#: [id number] ROOM/BED:AGE: 29 SEX: F PCP PHYS: No [...] (Auto) (16.0 - 50.0 %) 15.3 L Angelina % (Auto) (0.0 - 13.0 %) 5.2 [...] pH (4.6 - 8.0) 6.0 Ur Specific [place] (1.001 - 1.035) 1.017 Urine Protein (NEGATIVE [...] 07/29 2114 Famotidine 20 MG X1ED STA 07/294 DC 07/29 IV 07/29 Ondansetron HCl 4 [...] or a call to 911. at 0000RPT #:[id number] OF REPORTEDEmerfulton [facility] hospital department [id number]:12:[id number] 5AVAvailable for patient [id number]:00:25 [facility] 2019-07-30 21:12:00 [id number] Mili [id number] T21:12:00 [facility] ([facility])EMERGENCY PROVIDER REPORTREPORT#:[id number] REPORT STATUS: SignedDATE:07/30/19 TIME: 2111 PATIENT: BREANNA JIMENEZ UNIT #: [id number]#: [id number] ROOM/BED:AGE: 29 SEX: F PCP PHYS: No [...] (Auto) (16.0 - 50.0 %) 15.3 L Angelina % (Auto) (0.0 - 13.0 %) 5.2 [...] pH (4.6 - 8.0) 6.0 Ur Specific [place] (1.001 - 1.035) 1.017 Urine Protein (NEGATIVE [...] Admin Lidocaine HCl 10 ML X1ED STA 07/294 DC PO 07/29 2114 Central Nervous System Agents Sig/Ayanna Start time Last Medication Dose Route Stop Time Status Admin Ketorolac 30 MG X1ED STA 07/29 2333 DC 07/29 Tromethamine IV 07/294 233 Promethazine HCl 25 MG X1ED STA [...] call to 911. at 0000 at 0024RPT #:[id number] OF [facility]EDHigh[facility] department [id number]:12:00H.[id number] 5AVAvailable for patient [id number]:24:32 [facility]
[2023-07-21] MEDS ORDERED: ONDANSETRON 4 MG/2 ML VIAL ONE (18:13)
[2023-07-21] MEDS ORDERED: MORPHINE 4 MG/ML SYR ONE (18:14)
[2023-07-21] MEDS ORDERED: FAMOTIDINE 20 MG/2 ML VIAL IV ONE (18:14)
[2023-07-21] MEDS ORDERED: NA CHLORIDE 0.9% 1,000 ML ONE (18:14)
[2023-07-21 18:35] LABS: Albumin 3.7 g/dL (3.4-5.0); Albumin/Globulin Ratio 0.9 (1.1-1.8); Anion Gap 8.4 mEq/L (5.0-15.0); Bilirubin Total 0.4 mg/dL (0.2-1.0); Globulin 3.9 g/dL (2.3-3.5); Potassium 3.4 mEq/L (3.5-5.1); Protein, Total 7.6 g/dL (6.4-8.2)
[2023-07-21 18:58] LABS: Absolute Monocytes 0.6 K/uL (0.1-1.3); Absolute Neutrophil 7.8 K/uL (1.8-8.0); Basophils % 0.4 % (0-1.3); Eosinophils % 0.3 % (0-4.4); Hematocrit 40.1 % (36.0-45.0); Hemoglobin 12.9 g/dL (12.0-15.0); Lymphocytes % 10.1 % (15.3-44.8); MCH 26.1 pg (27.0-35.0); MCHC 32.3 g/dL (32.0-36.0); MCV 80.8 fL (80-100); MPV 10.7 fL (7.6-11.3); Monocytes % 5.9 % (3.3-12.3); Neutrophils % 83.3 % (41.7-73.7); Platelets 266 thou/uL (152-406); RBC Red Blood Cell Count 4.96 M/uL (3.86-4.86); Red Cell Distribution Width 20.5 % (12.1-15.2)
[2023-07-21] MEDS ORDERED: METOCLOPRAMIDE 10 MG/2mL INJ ONE (19:52)
--- NOTE | 2023-07-21 20:01 | RAD REPORT ---
[facility]18 [facility] CLINICAL HISTORY: vomiting COMPARISON: Chest Single View dated 12/14/2022; Chest Single View dated 10/25/2022; Abdomen Acute Seri es dated 04/02/2022 TECHNIQUE: Portable AP view of the chest. FINDINGS: The lungs are clear. No pneumothorax or effusion. The cardiomediastinal contours are unre markable. IMPRESSION: No acute cardiopulmonary process.
[2023-07-21 20:27] LABS: Specific Gravity 1.026 (1.005-1.030); Sqamous Epithelial <5 /HPF (None Seen); Urine Bacteria <20 /HPF (<20); Urine Bilirubin NEGATIVE (Negative); Urine Blood 3+ (OVER) (Negative); Urine Clarity Extremely Turbid (Clear); Urine Color Light-Brown (Yellow); Urine Crystals Unidentified Few /HPF (None Seen); Urine Culture Reflex Order REFLEXED; Urine Glucose NEGATIVE (Negative); Urine Ketones 1+ (Negative); Urine Microscopic Reflex YN ORDER UMIC; Urine Mucus Slight /HPF (None Seen); Urine Nitrite NEGATIVE (Negative); Urine Protein TRACE (Negative); Urine RBC >50 /HPF (None Seen); Urine Urobilinogen Normal (Normal); Urine Yeast (Budding) Trace /HPF (None Seen); Urine pH 7.5 (5.0-7.0)
[2023-07-21] MEDS ORDERED: LORazepam 2 MG/ML VIAL ONE (20:44)
--- NOTE | 2023-07-21 20:45 | RAD REPORT ---
EXAM DESCRIPTION: CT - Abdomen Pelvis W Contrast - 07/21/2023 8:01 pm CLINICAL HISTORY: ABD PAIN COMPARISON: Abdomen Pelvis W Contrast dated 06/24/2023; Abdomen Pelvis W Contrast dated 06/01/2023 ; Abdomen Pelvis W Contrast dated 03/23/2023; Abdomen Pelvis W Contrast dated 03/02/2023 TECHNIQUE: Thin cut axial CT imaging of the abdomen and pelvis was performed following intravenous a dministration of iodinated contrast. Multiplanar reformats were generated and reviewed. All CT scans are performed using dose optimization technique as appropriate and may include automated exposure control or mA/KV adjustment according to patient size. FINDINGS: No suspicious findings in the lung bases. The liver, spleen, adrenal glands, and pancreas show no suspicious findings. Gallbladder was surgical ly removed. Symmetric renal function is seen with stable areas of cortical thinning particularly on the right, odom ggesting scarring, possibly related to prior infections. No hydronephrosis or suspicious renal mass. No radiopaque calculi. No dilated bowel loops or bowel wall thickening. No free air, free fluid or inflammatory stranding. N o hernia, mass or bulky lymphadenopathy. The urinary bladder is without significant finding. No suspicious bony findings. IMPRESSION: No acute intra-abdominal process.
[2023-07-21 21:11] LABS: Anisocytosis 1+; Blood Morphology Comment NOTED (NOT SEEN); Platelet Estimate ADEQ; White Blood Cell Scan OK (OK)
[2023-07-21 21:12] LABS: Ovalocytes SLIGHT
[2023-07-21] MEDS ORDERED: Ringers Lactate 1,000 ML IV ONE (21:40)
[2023-07-21] MEDS ORDERED: KCL 20 MEQ/100 mL IVPB 100 ML IV ONE (21:41)
--- NOTE | 2023-07-21 22:11 | ER ---
Nurse's Notes [facility] Name: Efrem Pastor Age: 33 yrs Sex: Female : 1990 Arrival Date: 07/21/2023 Time: 17:30 Bed 18 Private MD: Diagnosis: Nausea with vomiting, unspecified-intractable Presentation: 07/20 17:32 Chief complaint: EMS states: patient started having right sided abdominal pain today at ap3 approx 1230 after she had an endoscopy. patient states her pain is currently a 10/10 on the pain scale. EMS states patient was vomiting in route and received 25mcg of fentanyl IV X's 1, and 4mg zofran IV X's 2 during transport to a 22g IV in the right hand. Coronavirus screen: At this time, the client does not indicate any symptoms associated with coronavirus-19. Ebola Screen: No symptoms or risks identified at this time. Risk Assessment: Do you want to hurt yourself or someone else? Patient reports no desire to harm self or others. Onset of symptoms was July 21, 2023 at 12:30. Care prior to arrival: Medication(s) given: zofran 4 mg, fentanyl 25mcg, Zofran 4mg IV initiated. 22 GA, in the right hand. 17:32 Method Of Arrival: EMS: [facility] ap3 17:32 Acuity: BELINDA 3 ap3 17:53 Initial Sepsis Screen: Does the patient meet any 2 criteria? No. Patient's initial me1 sepsis screen is negative. Does the patient have a suspected source of infection? No. Patient's initial sepsis screen is negative. 17:53 Care prior to arrival: Medication(s) given: me1 Triage Assessment: 17:36 General: Appears uncomfortable, ill, Behavior is crying. Pain: Complains of pain in ap3 abdomen Pain currently is 10 out of 10 on a pain scale. Neuro: Level of Consciousness is awake, alert, obeys commands, Oriented to person, place, time, situation. Cardiovascular: Patient's skin is warm and dry. Respiratory: Airway is patent Respiratory effort is even, unlabored, Respiratory pattern is regular, symmetrical. GI: Reports upper abdominal pain, nausea, vomiting. Derm: Skin is diaphoretic. 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 - Infectious Disease History:: Denies. - Social history:: Smoking status: Reported history of juuling and/or vaping. Screenin:32 [facility] ED Fall Risk Assessment (Adult) History of falling in the last 3 months, me1 including since admission No falls in past 3 months (0 pts) Confusion or Disorientation No (0 pts) Intoxicated or Sedated No (0 pts) Impaired Gait No (0 pts) Mobility Assist Device Used No (0 pt) Altered Elimination No (0 pt) Score/Fall Risk Level 0 - 2 = Low Risk Maintained a safe environment, Provided non-skid footwear, Hourly rounding (assess needs \T\ fall precautionary measures) done. 17:37 Abuse screen: Denies threats or abuse. Nutritional screening: No deficits noted. ap3 Tuberculosis screening: No symptoms or risk factors identified. Assessment: 17:32 General: Appears uncomfortable, ill, well developed, well nourished, Behavior is me1 cooperative, appropriate for age, Reports patient started having right sided abdominal pain today at approx 1230. About an hour after she had an endoscopy. patient states her pain is currently a 10/10 on the pain scale. Pain: Complains of pain in abdomen Pain does not radiate. Pain currently is 10 out of 10 on a pain scale. Quality of pain is described as crampy, Pain began suddenly, Is continuous. 17:32 Neuro: Level of Consciousness is awake, alert, obeys commands, Oriented to person, me1 place, time, situation, Appropriate for age. Cardiovascular: Patient's skin is warm and dry. Respiratory: Airway is patent Respiratory effort is even, unlabored, Respiratory pattern is regular, symmetrical. GI: Abdomen is round Reports upper abdominal pain, nausea, vomiting, since 12:30. About 1 hour after her endoscopy today. : No signs and/or symptoms were reported regarding the genitourinary system. EENT: No signs and/or symptoms were reported regarding the EENT system. Derm: Skin is intact, is healthy with good turgor, Skin is clammy, Skin is pale. Musculoskeletal: No signs and/or symptoms reported regarding the musculoskeletal system. Vital Signs: 17:30 BP 133 / 100; Pulse 80; Resp 16; Pulse Ox 97% on R/A; me1 17:53 BP 140 / 109; Pulse 81; Resp 18; Temp 98.1; Pulse Ox 99% on R/A; Weight 58.97 kg; me1 Height 5 ft. 2 in. ; Pain 10/10; 18:00 BP 132 / 88; Pulse 95; Resp 16; Pulse Ox 97% ; me1 19:00 BP 151 / 103; Pulse 105; Resp 19; Pulse Ox 100% on R/A; me1 20:00 BP 143 / 94; Pulse 92; Resp 18; Pulse Ox 96% on R/A; me1 21:00 BP 126 / 92; Pulse 95; Resp 18; Pulse Ox 96% on R/A; me1 22:00 BP 150 / 108; Pulse 88; Resp 16; Pulse Ox 98% on R/A; me1 23:20 BP 140 / 99; Pulse 89; Resp 18; Pulse Ox 98% on R/A; me1 17:53 Body Mass Index 23.78 (58.97 kg, 157.48 cm) nj1 17:53 Pain Scale: Adult [facility] [place] Course: 17:32 Patient arrived in ED. ap3 17:32 Billy Kilpatrick PA is PHCP. cp 17:32 Kishor Nj DO is Attending Physician. cp 17:32 No provider procedures requiring assistance completed. me1 17:32 Patient has correct armband on for positive identification. Bed in low position. Call nj1 light in reach. Side rails up X2. Provided Education on: POC. Verbalized understanding. . Client placed on continuous cardiac and pulse oximetry monitoring. NIBP monitoring applied. monitoring specialist on. Pulse ox on. NIBP on. 17:35 Triage completed. ap3 17:48 Yasmine Pagan, BRUCE is Primary Nurse. nj1 18:14 Initial lab(s) drawn, by nj, sent to lab. 8 18:19 XRAY Chest (1 view) In Process Unspecified. EDMS 18:22 Maintain EMS IV. Dressing intact. Good blood return noted. Site clean \T\ dry. Gauge \T\ me 1 site: 22g R hand. 18:31 Arm band placed on Patient placed in an exam room. me1 19:02 EKG done, by ED staff, reviewed by Billy PAINTER. me1 20:02 CT Abd/Pelvis - IV Contrast Only In Process Unspecified. EDMS 20:15 Urine collected: clean catch specimen, blood tinged, Patient is on her period. me1 22:10 Agapito Carroll MD is Hospitalizing Provider. cp 22:51 UDS Sent. me1 06 00:07 Patient admitted, IV remains in place. tm6 Administered Medications: 07/20 18:21 Drug: NS 0.9% IV 1000 ml IV at 1 bolus Per protocol; 1000 mL bolus Route: IV; Rate: 1 me1 bolus; Site: right hand; 20:19 Follow up: Response: No adverse reaction; IV Status: Completed infusion; IV Intake: me1 1000ml 18:21 Drug: Famotidine IVP 20 mg IVP once; dilute with 10 mL 0.9% NaCl; give over 2 minutes me1 Route: IVP; Site: right hand; 19:07 Follow up: Response: No adverse reaction me1 18:21 Drug: Ondansetron IVP 4 mg IVP once; over 2 minutes Route: IVP; Site: right hand; me1 19:07 Follow up: Response: No adverse reaction; Nausea is decreased me1 18:21 Drug: morphine IVP or IV 4 mg IVP once over 4 mins Route: IVP; Infused Over: 4 mins; me1 Site: right hand; 19:07 Follow up: Response: No adverse reaction; Pain is decreased me1 20:00 Drug: metoCLOPramide IVP 10 mg IVP once; over 1 to 2 minutes Route: IVP; Site: right me1 hand; 20:18 Follow up: Response: No adverse reaction; Nausea is decreased me1 20:56 Drug: Ativan IVP 1 mg IVP once Route: IVP; Site: right hand; vc1 21:20 Follow up: Response: No adverse reaction; Anxiety decreased me1 21:42 Not Given (vomiting. Unable to take oral meds at this time. ): potassiumeffervescent me1 tablet 25 meq PO once; dissolve in 4 ounces of water or juice 21:50 Drug: Potassium Chloride IV 10 mEq IV at calculated rate once; administer over 1-2 me1 hours Route: IV; Rate: calculated rate; Site: right hand; 23:23 Follow up: Response: No adverse reaction; IV Status: Completed infusion; IV Intake: [id number] 21:50 Drug: Lactated Ringers Solution IV 1000 ml IV at 150 ml/hr continuous Route: IV; Rate: me1 150 ml/hr; Site: right hand; 23:24 Follow up: IV Status: Infusion continued upon admission me1 Medication: 17:32 VIS not applicable for this client. me1 Intake: 20:19 IV: 1000ml; Total: 1000ml. me1 23:23 IV: 50ml; Total: 1050ml. me1 Outcome: 22:11 Decision to Hospitalize by Provider. cp 07/21 00:06 Admitted to Med/surg accompanied by tech, via wheelchair, tm6 Condition: stable Instructed on the need for admit, Demonstrated understanding of instructions, 00:07 Patient left the ED. tm6 Signatures: Dispatcher [employer] EDMS Billy Kilpatrick PA PA cp Dedra Herron RN RN ap3 Trudy Mcnulty RN RN vc1 Maki Caban 8 Yasmine Pagan RN RN me1 Rosemarie Gibbs RN RN tm6 Corrections: (The following items were deleted from the chart) 07/20 17:54 17:32 Chief complaint: EMS states: patient started having right sided abdominal pain me1 today at approx 1230 after she had an endoscopy. patient states her pain is currently a 10/10 on the pain scale. EMS states patient was vomiting in route and received 25mcg of fentanyl IV X's 1, and 4mg zofran IV X's 2 during transport to a 22g IV in the right hand. ap3 18:25 17:32 Chief complaint: EMS states: patient started having right sided abdominal pain me1 today at approx 1230 after she had an endoscopy. patient states her pain is currently a 10/10 on the pain scale. EMS states patient was vomiting in route and received 25mcg of fentanyl IV X's 1, and 4mg zofran IV X's 2 during transport to a 22g IV in the right hand. me1 18:29 18:25 General: Appears uncomfortable, ill, well developed, well nourished, Behavior is me1 cooperative, appropriate for age, Reports patient started having right sided abdominal pain today at approx 1230. About an hour after she had an endoscopy. patient states her pain is currently a 10/10 on the pain scale me1 18:29 18:25 Pain: Complains of pain in abdomen Pain does not radiate. Pain currently is 10 me1 out of 10 on a pain scale. Quality of pain is described as crampy, Pain began suddenly, Is continuous, me1 22:50 18:00 BP 133 / 100; Pulse 80bpm; Resp 16bpm; Pulse Ox 97% RA; me1 me1
--- NOTE | 2023-07-21 22:11 | EDPHYS ---
Physician Documentation [facility] Name: Efrem Pastor Age: 33 yrs Sex: Female : 1990 Arrival Date: 07/21/2023 Time: 17:30 Bed 18 Private MD: ED Physician Kishor Nj HPI: 07/20 18:00 This 33 yrs old Female presents to ER via EMS with complaints of Abdominal Pain. cp 18:00 The patient presents with abdominal pain in the epigastric area. Onset: The cp symptoms/episode began/occurred today. Associated signs and symptoms: Pertinent positives: nausea and vomiting, Pertinent negatives: constipation, diarrhea, fever, vomiting blood. Severity of pain: in the emergency department the pain is unchanged despite EMS interventions. Patient reports having upper endoscopy done by DR Marques earlier today prior to onset of vomiting. 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 - Infectious Disease History:: Denies. - Social history:: Smoking status: Reported history of juuling and/or vaping. ROS: 18:05 Constitutional: Positive for poor PO intake, Negative for body aches, chills, fever, cp 18:05 Eyes: Negative for injury, pain, redness, and discharge, cp 18:05 ENT: Negative for drainage from ear(s), ear pain, sore throat, difficulty swallowing, difficulty handling secretions, 18:05 Cardiovascular: Negative for chest pain, palpitations, 18:05 Respiratory: Negative for cough, shortness of breath, wheezing, 18:05 Abdomen/GI: Positive for abdominal pain, nausea and vomiting, Negative for hematemesis, 18:05 Neuro: Negative for altered mental status, syncope, 18:05 All other systems are negative, Exam: 18:10 Constitutional: The patient appears in no acute distress, alert, awake, cp non-diaphoretic, non-toxic, well developed, well nourished, uncomfortable, 18:10 Head/Face: Normocephalic, atraumatic. cp 18:10 Eyes: Periorbital structures: appear normal, Conjunctiva: normal, no exudate, no injection, Sclera: no appreciated abnormality, Lids and lashes: appear normal, bilaterally, 18:10 ENT: External ear(s): are unremarkable, Nose: is normal, Mouth: Lips: moist, Oral mucosa: moist, Posterior pharynx: Airway: no evidence of obstruction, patent, 18:10 Neck: ROM/movement: is normal, is supple, without pain, no range of motions limitations, no meningismus, 18:10 Chest/axilla: Inspection: normal, 18:10 Cardiovascular: Rate: normal, Rhythm: regular, 18:10 Respiratory: the patient does not display signs of respiratory distress, Respirations: normal, no use of accessory muscles, no retractions, labored breathing, is not present, Breath sounds: are clear throughout, no decreased breath sounds, no stridor, no wheezing, 18:10 Abdomen/GI: Inspection: abdomen appears normal, Bowel sounds: active, all quadrants, Palpation: soft, in all quadrants, severe abdominal tenderness, in the epigastric area, rebound tenderness, is not appreciated, involuntary guarding, is not appreciated, 18:10 Back: pain, is absent, ROM is normal, 18:10 Neuro: Orientation: to person, place \T\ time. Mentation: is normal, Motor: moves all fours, no focal deficits, 19:05 ECG was reviewed by the Attending Physician. cp Vital Signs: 17:30 BP 133 / 100; Pulse 80; Resp 16; Pulse Ox 97% on R/A; me1 17:53 BP 140 / 109; Pulse 81; Resp 18; Temp 98.1; Pulse Ox 99% on R/A; Weight 58.97 kg; me1 Height 5 ft. 2 in. ; Pain 10/10; 18:00 BP 132 / 88; Pulse 95; Resp 16; Pulse Ox 97% ; me1 19:00 BP 151 / 103; Pulse 105; Resp 19; Pulse Ox 100% on R/A; me1 20:00 BP 143 / 94; Pulse 92; Resp 18; Pulse Ox 96% on R/A; me1 21:00 BP 126 / 92; Pulse 95; Resp 18; Pulse Ox 96% on R/A; me1 22:00 BP 150 / 108; Pulse 88; Resp 16; Pulse Ox 98% on R/A; me1 23:20 BP 140 / 99; Pulse 89; Resp 18; Pulse Ox 98% on R/A; me1 17:53 Body Mass Index 23.78 (58.97 kg, 157.48 cm) az1 17:53 Pain Scale: Adult az1 MDM: 17:32 Patient medically screened. cp 22:07 Management of patient was discussed with the following: Modeling Agent: DR Marques who will cp consult on patient. 22:10 Data reviewed: vital signs, nurses notes, lab test result(s), EKG, radiologic studies, cp CT scan, plain films. 22:10 Consideration of Admission/Observation Patient was admitted/placed on observation. I cp considered the following discharge prescriptions or medication management in the emergency department Medications were administered in the Emergency Department. See MAR. Counseling: I had a detailed discussion with the patient and/or guardian regarding the historical points, exam findings, and any diagnostic results supporting the discharge/admit diagnosis, lab results, radiology results, the need for further work-up and treatment in the hospital. Response to treatment: the patient's symptoms have mildly improved after treatment, patient continues to be intolerant of po fluids, and as a result, I will admit patient. 07/20 17:57 Order name: CBC with Diff; Complete Time: 21:22 cp 07/20 20:32 Interpretation: Normal except: RBC 4.96; MCH 26.1; RDW 20.5; KIMBERLY% 83.3; LYM% 10.1. cp 07/20 17:57 Order name: CMP; Complete Time: 20:32 cp 07/20 20:33 Interpretation: Normal except: K 3.4; GLUC 121; AST 14; ALK 146; GLOB 3.9; A/G 0.9. cp 07/20 17:57 Order name: Lipase; Complete Time: 20:32 cp 07/20 17:57 Order name: Test, Urine; Complete Time: 20:32 cp 07/20 17:57 Order name: Urinalysis w/ reflexes; Complete Time: 20:32 cp 07/20 20:31 Order name: Urine Culture EDAL 07/20 21:12 Order name: CBC Smear Scan; Complete Time: 21:22 EDAL 07/20 22:25 Order name: Urinalysis w/ reflexes EDAL 07/20 22:25 Order name: CBC with Automated Diff [facility] 07/20 22:25 Order name: CBC with Automated Diff [facility] 07/20 22:25 Order name: Comprehensive Metabolic Panel [facility] 07/20 22:25 Order name: Comprehensive Metabolic Panel [facility] 07/20 22:40 Order name: UDS 07/20 23:12 Order name: Urine Drug Screen [facility] 07/20 17:57 Order name: CT Abd/Pelvis - IV Contrast Only; Complete Time: 20:48 cp 07/20 20:49 Interpretation: Report reviewed. 07/20 17:57 Order name: XRAY Chest (1 view); Complete Time: 20:32 cp 07/20 17:57 Order name: IV Saline Lock; Complete Time: 18:22 cp 07/20 17:57 Order name: Labs collected and sent; Complete Time: 18:22 07/20 17:57 Order name: EKG - Nurse/Tech; Complete Time: 19:06 cp EC:05 Rate is 88 beats/min. Rhythm is regular. NE interval is normal. QRS interval is normal. cp QT interval is normal. T waves are Inverted in lead aVR. Interpreted by me. Reviewed by me. Administered Medications: 18:21 Drug: NS 0.9% IV 1000 ml IV at 1 bolus Per protocol; 1000 mL bolus Route: IV; Rate: 1 me1 bolus; Site: right hand; 20:19 Follow up: Response: No adverse reaction; IV Status: Completed infusion; IV Intake: me1 1000ml 18:21 Drug: Famotidine IVP 20 mg IVP once; dilute with 10 mL 0.9% NaCl; give over 2 minutes me1 Route: IVP; Site: right hand; 19:07 Follow up: Response: No adverse reaction me1 18:21 Drug: Ondansetron IVP 4 mg IVP once; over 2 minutes Route: IVP; Site: right hand; az1 19:07 Follow up: Response: No adverse reaction; Nausea is decreased me1 18:21 Drug: morphine IVP or IV 4 mg IVP once over 4 mins Route: IVP; Infused Over: 4 mins; me1 Site: right hand; 19:07 Follow up: Response: No adverse reaction; Pain is decreased me1 20:00 Drug: metoCLOPramide IVP 10 mg IVP once; over 1 to 2 minutes Route: IVP; Site: right me1 hand; 20:18 Follow up: Response: No adverse reaction; Nausea is decreased me1 20:56 Drug: Ativan IVP 1 mg IVP once Route: IVP; Site: right hand; vc1 21:20 Follow up: Response: No adverse reaction; Anxiety decreased me1 21:42 Not Given (vomiting. Unable to take oral meds at this time. ): potassiumeffervescent me1 tablet 25 meq PO once; dissolve in 4 ounces of water or juice 21:50 Drug: Potassium Chloride IV 10 mEq IV at calculated rate once; administer over 1-2 me1 hours Route: IV; Rate: calculated rate; Site: right hand; 23:23 Follow up: Response: No adverse reaction; IV Status: Completed infusion; IV Intake: [id number] 21:50 Drug: Lactated Ringers Solution IV 1000 ml IV at 150 ml/hr continuous Route: IV; Rate: me1 150 ml/hr; Site: right hand; 23:24 Follow up: IV Status: Infusion continued upon admission me1 Disposition: 22:55 I was immediately available on-site in the Emergency Department for consultation in the ms3 care of the patient. . Disposition Summary: 07/21/23 22:11 Hospitalization Ordered Notes: Hospitalization Status: Observation cp Provider: Agapito Carroll [facility] cp Condition: Stable cp Problem: new cp Symptoms: have improved cp Bed/Room Type: Standard cp Room Assignment: 202(07/21/23 23:14) ty Diagnosis - Nausea with vomiting, unspecified - intractable cp Forms: - Medication Reconciliation Form cp - SBAR form cp - Leadership Thank You Letter cp Signatures: Dispatcher [employer] EDMS Billy Kilpatrick PA PA cp Prokisch, Amanda, RN RN sonya3 Kishor Nj, DO ms3 Trudy Mcnulty RN RN vc1 Yasmine Pagan RN RN me1 David Becker ty Corrections: (The following items were deleted from the chart) 17:58 17:57 CBC+H.LAB.BRZ ordered. EDMS EDMS 17:58 17:57 COMPREHENSIVE METABOLIC PANEL+C.LAB.BRZ ordered. EDMS EDMS 17:58 17:57 LIPASE+C.LAB.BRZ ordered. EDMS EDMS 17:58 17:57 Test, Urine+UC.LAB.BRZ ordered. EDMS EDMS 17:58 17:58 Urinalysis+U.LAB.BRZ ordered. EDMS EDMS 17:58 17:58 Abdomen Pelvis W Con+CT.RAD.BRZ ordered. EDMS EDMS 17:58 17:58 Chest Single View+RAD.RAD.BRZ ordered. EDMS EDMS 23:14 22:11 cp ty
[2023-07-21] MEDS ORDERED: ACETAMINOPHEN 325 MG TABLET PO PRN (22:21)
--- NOTE | 2023-07-21 22:21 | P.HP ---
Certification for Inpatient Patient admitted to: Observation With expected LOS: <2 Midnights Practitioner: I am a practitioner with admitting privileges, knowledge of patient current condition, hospital course, and medical plan of care. Services: Services provided to patient in accordance with Admission requirements found in Title 42 Section 412.3 of the Code of Federal Regulations Patient History Date of Service: 07/21/23 Reason for admission: Nausea and vomiting History of Present Illness: 33-year-old female with past medical history of cutaneous nerve entrapment syndrome; Anxiety; Gastroparesis; Irritable bowel syndrome; neuropathy; PTSD; Who had an EGD done this morning by Dr. Marques and started having abdominal pain associated with nausea and vomiting. Abdominal pain is epigastric radiating to the substernal area as well. Denies any shortness of breath. Associate with nausea and vomiting. Patient also complains of abdominal pain in the lower abdomen. Associated with dysuria. No fever or chills. Patient states that she had an EGD done today and had some lesions removed details of which she does not remember. Denies any hematemesis or melena. Patient was assessed in the ER and was admitted for further management of intractable nausea and vomiting and abdominal pain and cystitis Allergies scopolamine Allergy (Unknown, Verified 11/17/22 11:21) Itching/Hives/Rash haloperidol [From Haldol] Allergy (Verified 11/17/22 11:21) Itching/Hives/Rash Home medications list reviewed: Yes Home Medications: Eszopiclone [Lunesta*] 3 mg PO BEDTIME 05/31/22 Alprazolam [Xanax] 0.5 mg PO BID 08/12/22 PARoxetine HCL [Paxil] 60 mg PO BEDTIME 09/12/22 Brexpiprazole [Rexulti] 2.5 mg PO DAILY 06/27/23 Metoclopramide HCl 5 mg PO ACHS #120 tab 06/28/23 Ondansetron [Zofran] 4 mg PO Q6H PRN 10 Days #30 tab 06/28/23 Metoclopramide HCl [Reglan] 5 mg PO ACHS #120 tab 07/14/23 - Past Medical/Surgical History Diabetic: No Past Medical History: Reviewed- Non-Contributory -: Gastroparesis -: Depression -: PTSD -: IBS Past Surgical History: Reviewed- Non-Contributory -: Cholecystectomy -: LEEP -: Lumpectomy Psychosocial/ Personal History: Patient lives at home with her family. - Family History Family History: Reviewed- Non-Contributory - Family History Father -: Hypertension Mother -: Diabetes - Social History Smoking Status: Never smoker Alcohol use: No CD- Drugs: Yes Caffeine use: Yes Review of Systems 10-point ROS is otherwise unremarkable Physical Examination - Vital Signs Temperature: 98.2 F Blood Pressure: 138/68 Pulse: 92 Respirations: 18 Pulse Ox (%): 94 - Physical Exam General: Alert, Oriented x3, Mild distress HEENT: Atraumatic, Normocephalic Neck: Supple, 2+ carotid pulse no bruit Respiratory: Clear to auscultation bilaterally, Normal air movement Cardiovascular: No edema, Regular rate/rhythm, Normal S1 S2 Capillary refill: <2 Seconds Gastrointestinal: Soft and benign, Non-distended, W/out hepatosplenomegaly, No guarding, Tenderness Musculoskeletal: No clubbing, No swelling Integumentary: No rashes, No breakdown Neurological: Normal speech, Normal strength at 5/5 x4 extr, Sensation intact, Cranial nerves 3-12 intact Lymphatics: No axilla or inguinal lymphadenopathy - Studies Laboratory Data (last 24 hrs) 07/21/23 07/21/23 18:10 18:10 WBC 9.40 Hgb 12.9 Hct 40.1 Plt Count 266 Sodium 136 Potassium 3.4 L BUN 7 Creatinine 0.58 Glucose 121 H Total Bilirubin 0.4 AST 14 L ALT 33 Alkaline Phosphatase 146 H Lipase 22 Assessment and Plan - Problems (Diagnosis) (1) Intractable nausea and vomiting Current Visit: No Status: Acute Plan: Intractable nausea and vomiting Started on Zofran Continue home medications and titrate as needed Will keep n.p.o. for now IV fluids Status post EGD by Dr. Marques Will put a consult for Dr. Marques Pain control Monitor closely for bleeding Follow-up with Dr. Marques for pathology Will start on Protonix IV UTI Started on IV antibiotic Will get urine culture Anxiety Continue home medications History of gastroparesis Continue home medications and titrate as needed Substance abuse with cannabis Advise cessation Possible cannabis induced hyperemesis GI/DVT prophylaxis Advanced directive full Code Discharge Plan: Home Plan to discharge in: 24 Hours - Advance Directives Does patient have a Living Will: No Does patient have a Durable POA for Healthcare: No - Code Status/Comfort Care Code Status: Full Code Time Spent Managing Pts Care (In Minutes): 48
[2023-07-21] MEDS ORDERED: SODIUM CHLORIDE 0.9% 10ML INJ IV PRN (22:23)
[2023-07-21] MEDS: PANTOPRAZOLE 40 MG INJ IVP SCH (22:24)
[2023-07-21 23:11] LABS: Barbiturates NEGATIVE (NEGATIVE); Benzodiazepines NEGATIVE (NEGATIVE); Cocaine NEGATIVE (NEGATIVE); METHAMPHETAM NEGATIVE (NEGATIVE); Methadone NEGATIVE (NEGATIVE); Opiates POSITIVE (NEGATIVE); Phencyclidine NEGATIVE (NEGATIVE); THC Cannibis POSITIVE (NEGATIVE)
[2023-07-22] MEDS: NA CHLORIDE 0.9% 1,000 ML IV SCH (00:29)
[2023-07-22] MEDS: CEFTRIAXONE 1,000 MG in NA CHLORIDE 0.9% 50 ML IVPB SCH (00:29)
[2023-07-22] MEDS: ONDANSETRON 4 MG/2 ML VIAL IV PRN (00:40)
[2023-07-22 00:59] VITALS: O2SAT 98
[2023-07-22] MEDS: MORPHINE 2 MG/ML SYR IV PRN (03:25)
[2023-07-22 04:00] LABS: Absolute Lymphocytes (CBC) 0.5 K/uL (0.7-4.9); Absolute Monocytes 0.2 K/uL (0.1-1.3); Absolute Neutrophil 6.2 K/uL (1.8-8.0); Basophils % 0.2 % (0-1.3); Hematocrit 35.9 % (36.0-45.0); Hemoglobin 11.9 g/dL (12.0-15.0); Lymphocytes % 7.8 % (15.3-44.8); MCH 26.9 pg (27.0-35.0); MCHC 33.3 g/dL (32.0-36.0); MCV 80.8 fL (80-100); MPV 10.3 fL (7.6-11.3); Monocytes % 3.5 % (3.3-12.3); Platelets 241 thou/uL (152-406); RBC Red Blood Cell Count 4.44 M/uL (3.86-4.86)
[2023-07-22 04:02] LABS: Neutrophils % 88.5 % (41.7-73.7)
[2023-07-22 04:32] LABS: Anion Gap 10.4 mEq/L (5.0-15.0); Bilirubin Total 0.4 mg/dL (0.2-1.0); Potassium 3.4 mEq/L (3.5-5.1)
[2023-07-22 04:33] LABS: Albumin 3.3 g/dL (3.4-5.0); Albumin/Globulin Ratio 0.9 (1.1-1.8); Globulin 3.5 g/dL (2.3-3.5); Protein, Total 6.8 g/dL (6.4-8.2)
[2023-07-22] MEDS: CHOLESTYRAMINE/ASP 4 GM/PKT PO ONE ×2 (08:35→09:03)
[2023-07-22] MEDS: MORPHINE 4 MG/ML SYR IV PRN (09:02)
[2023-07-22] MEDS: PNEUMOCOCCAL VACCINE 0.5 ML IMVAC ONE (11:48)
--- NOTE | 2023-07-22 13:44 | CON ---
Date of Consultation: 07/22/2023 Reason For Consultation: Extreme nausea, vomiting, midepigastric and right upper quadrant pain. History Of Present Illness: The patient is a 33-year-old white female with history of gastroparesis, generalized anxiety disorder, PTSD, PCOS, IBS, neuropathy, and cholecystectomy. The patient present ed to the hospital with extreme nausea, vomiting, midepigastric and right upper quadrant pain, maximu m 10/10 pain, now 7/10. The patient went for an upper endoscopy yesterday that was uneventful. The patient's procedure went well, was discharged home in no pain. No nausea, vomiting at that time. Sh clau went home. They went to [employer] and bought a pasta salad. She ate the larry d and subsequently even with salad she began having nausea, vomiting, midepigastric and right upper q uadrant pain which reached to 10/10 level, now down to 7/10. She denies any hematemesis, coffee-grou nd emesis, melena, hematochezia, fevers, chills, night sweats. She was admitted to the hospital, not ed to have UTI as well. The patient states she has never had a problem with eating pasta salad from [employer] before, but this seems to be the case now. Past Medical History: Significant for gastroparesis, generalized anxiety disorder, PTSD, PCOS, irrit able bowel syndrome, neuropathy, cutaneous nerve entrapment, laparoscopic cholecystectomy, LEEP proce dure. Medications: At home include Lunesta, Xanax, Paxil, Rexulti, Reglan, Zofran. Allergies: TO SCOPOLAMINE AND HALDOL. Social History: She is . No children. She does vape. Prior tobacco use and still uses mar ijuana. No alcohol. Family History: Father of aortic dissection, double dissection she states with a history of hyp ertension and tobacco use. Mother is alive with diabetes, hypertension, hypercholesterolemia, and st atus post hysterectomy. Review of Systems: The patient has nausea, vomiting, midepigastric and right upper quadrant pain after eating pasta larry d from [employer] yesterday after she had a procedure. She had EGD with no event s. No hematemesis, coffee-ground emesis. No epistaxis, melena, hematochezia, diarrhea, or constipat ion noted. No fevers, chills, night sweats, chest pain, shortness of breath, seizure, syncope, muscl e aches, joint aches, backaches. She does have depression, anxiety. Physical Examination: Vital Signs: She is 5 feet 2 inches, 133 pounds, BMI 24 kg/sq.m. Temperature 99.4 degrees Fahrenhei t, pulse 99, respirations 17, blood pressure 121/85, O2 saturation 92% to 97% on room air. General: She is a well-nourished, well-developed female, lying in bed, in no acute distress. HEENT: Normocephalic, atraumatic. Anicteric. Pupils equal, round, and reactive to light. Extraocu lar movements are intact. Oropharynx is clear. Neck: Supple. No masses. Respirations: Clear to auscultation bilaterally. Cardiac: Regular rate and rhythm. No gallops or rubs. Abdomen: Positive bowel sounds. Soft, nondistended. Some mild tenderness in the midepigastric and right upper quadrant area, but no peritoneal sign. No rebound. No guarding currently. No hepatospl enomegaly. Extremities: No clubbing, cyanosis, or edema. 2+ pulses. Neuro: Alert and oriented x3. Grossly nonfocal. 5/5 motor. Sensation intact to light touch. Data: The patient had a CT scan that was negative. No findings. On admission, she had a white coun t of 9.4, hemoglobin of 12.9, hematocrit 40.1, MCV of 81, platelet count of 266, polys of 83%, lympho cytes 10%, monocytes 6%. Today, the patient has a sodium of 137, potassium 3.4, chloride 108, bicarb 22, BUN 7, creatinine of 0.6, glucose 138, calcium 8.5, total bilirubin 0.4, AST of 31, ALT of 26, a lkaline phosphatase 134, total protein 6.8, albumin 3.3, lipase of 22. UA showed 1+ ketones, 3+ bloo d, over 50 rbc's, leukocyte esterase 25 which is high, nitrites actually negative though squamous epi thelial cells less than 5, 10-20 white blood cells, trace yeast, trace protein. test was n egative. Drug screen was positive for opiates and THC, marijuana, which she smokes. CT scan was neg ative as per above. Impression: 1.Possible food poisoning with nausea and vomiting, admitted for right upper quadrant pain after eat ing pasta salad from [employer] yesterday. The patient had EGD yesterday that was uneventfu l. After procedure, she went out to eat at [employer], soon after eating she beg an having this midepigastric and right upper quadrant pain, nausea, vomiting, maximum 10/10, now down to 7/10. She denies any change in bowel habits, diarrhea, constipation, muscle aches, joint aches, hematemesis, coffee-grounds emesis, melena, hematochezia, fevers, chills, night sweats. 2.Urinary tract infection with positive UA showing blood, rbc's, elevated white count with positive leukocyte esterase. Urine culture is pending at this time. 3.History of gastroparesis, generalized anxiety disorder, posttraumatic stress disorder, polycystic ovary syndrome, irritable bowel syndrome, neuropathy, cutaneous nerve entrapment, cholecystectomy, LE EP procedure, and lumpectomy. Recommendations: 1.Continue IV fluids. 2.Continue IV antibiotics. 3.P.r.n. pain medicines, antiemetics. 4.Clear liquids. 5.Questran therapy for this probable food poisoning. RADHA/DARIELA Voice ID: [id number] Report ID: [id number]
--- NOTE | 2023-07-22 13:44 | P.DS ---
Admission Date: 07/21/23 Discharge Date: 07/23/23 Disposition: ROUTINE DISCHARGE Discharge Condition: FAIR Reason for Admission: Nausea and vomiting - Problems (1) Acute cystitis without hematuria Status: Acute (2) Hypokalemia Status: Acute (3) Intractable nausea and vomiting Status: Acute (4) Gastroparesis Status: Chronic Brief History of Present Illness: 33-year-old female with past medical history of cutaneous nerve entrapment syndrome; Anxiety; Gastroparesis; Irritable bowel syndrome; neuropathy; PTSD underwent EGD done by Dr. Marques. She started experiencing abdominal pain associated with nausea and vomiting after eating solid diet. Patient also reported associated with dysuria. No fever or chills. No reported hematemesis. UA showed mild evidence of UTI. Urine toxicology screen was positive for opiates and THC. Patient was hospitalized for further management. Hospital Course: Patient placed under observation on the medical floor, started on IV Protonix was treated with IV fluid. She received IV Rocephin for suspected UTI. Urine culture showed mixed growth. She had an episode of low-grade fever so IV Rocephin was switched to IV Cipro. Patient's symptoms improved, she did not experience any vomiting during the hospital stay. She was seen and evaluated by GI Dr. Marquest recommended discharge with oral cholestyramine once patient is able to tolerate diet. She tolerated liquid diet and was able to take her oral medications without vomiting. She is discharged with oral Cipro to continue treatment for the UTI. Vital Signs/Physical Exam: Temp Pulse Resp BP Pulse Ox 98.7 F 85 17 118/84 97 07/22/23 12:00 07/22/23 12:07/22/23 12:00 07/22/23 12:07/22/23 12:00 General: Alert, In no apparent distress, Oriented x3 HEENT: Mucous membr. moist/pink Neck: JVD not distended Respiratory: Normal air movement Cardiovascular: No edema, Regular rate/rhythm Gastrointestinal: Non-distended Musculoskeletal: No swelling Integumentary: No rashes Neurological: Normal speech, Normal strength at 5/5 x4 extr Laboratory Data at Discharge: WBC 7.00 thou/uL (4.3-10.9) 07/22/23 03:15 Hgb 11.9 g/dL (12.0-15.0) L 07/22/23 03:15 Hct 35.9 % (36.0-45.0) L 07/22/23 03:15 Plt Count 241 thou/uL (152-406) 07/22/23 03:15 Sodium 137 mEq/L (136-145) 07/22/23 03:15 Potassium 3.4 mEq/L (3.5-5.1) L 07/22/23 03:15 BUN 7 mg/dL (7-18) 07/22/23 03:15 Creatinine 0.55 mg/dL (0.55-1.02) 07/22/23 03:15 Glucose 138 mg/dL (74-106) H 07/22/23 03:15 Total Bilirubin 0.4 mg/dL (0.2-1.0) 07/22/23 03:15 AST 13 U/L (15-37) L 07/22/23 03:15 ALT 26 U/L (13-56) 07/22/23 03:15 Alkaline Phosphatase 134 U/L (45-117) H 07/22/23 03:15 Lipase 22 U/L (13-75) 07/21/23 18:10 Home Medications: Eszopiclone [Lunesta*] 3 mg PO BEDTIME 05/31/22 Alprazolam [Xanax] 0.5 mg PO BID 08/12/22 PARoxetine HCL [Paxil] 60 mg PO BEDTIME 09/12/22 Brexpiprazole [Rexulti] 2.5 mg PO DAILY 06/27/23 Metoclopramide HCl 5 mg PO ACHS #120 tab 06/28/23 Ondansetron [Zofran (Odt)*] 4 mg PO Q6H PRN 10 Days #30 tab 06/28/23 Cholestyramine (with Sugar) [Cholestyramine Packet] 8 gm PO BID #4 packet 07/23/23 Ciprofloxacin HCl [Cipro] 500 mg PO BID #8 tab 07/23/23 Oxycodone HCl/Acetaminophen [Percocet 5/325 Tab*] 1 tab PO Q6H PRN tab 07/23/23 New Medications: Cholestyramine (with Sugar) [Cholestyramine Packet] 8 gm PO BID #4 packet Ciprofloxacin HCl [Cipro] 500 mg PO BID #8 tab Diet: Regular Activity: Ad erin Followup: NONE,NONE [Primary Care Provider] - Luis Wen MD [ASSOCIATE-ACTIVE - CAN ADMIT] - 1-2 Weeks Time spent managing pt's care (in minutes): 33
[2023-07-22] MEDS ORDERED: PREGABALIN 50 MG CAP PO SCH (14:00)
[2023-07-22] MEDS: Oxycodone HCl/Acetaminophen 5/325 MG TAB PO PRN (14:20)
[2023-07-22] MEDS: METOCLOPRAMIDE 5 MG TAB PO SCH (16:48)
[2023-07-22] MEDS: Oxycodone HCl/Acetaminophen 5/325 MG TAB PO ONE (17:37)
--- NOTE | 2023-07-22 18:15 | P.PN ---
Subjective Date of Service: 07/22/23 Chief Complaint: Nausea and vomiting Patient has been tolerated liquid diet today but she has been complaining of uncontrolled abdominal pain. She also developed a low-grade fever. Physical Examination - Vital Signs Temperature: 100.0 F Blood Pressure: 128/77 Pulse: 117 Respirations: 16 Pulse Ox (%): 99 - Physical Exam General: Alert, In no apparent distress, Oriented x3 HEENT: Mucous membr. moist/pink Neck: Supple, JVD not distended Respiratory: Normal air movement Cardiovascular: No edema, Regular rate/rhythm Gastrointestinal: Soft and benign, Non-distended Musculoskeletal: No swelling Integumentary: No rashes Neurological: Normal speech, Normal strength at 5/5 x4 extr - Studies Laboratory Data (last 24 hrs) 07/21/23 07/21/23 18:10 18:10 WBC 9.40 Hgb 12.9 Hct 40.1 Plt Count 266 Sodium 136 Potassium 3.4 L BUN 7 Creatinine 0.58 Glucose 121 H Total Bilirubin 0.4 AST 14 L ALT 33 Alkaline Phosphatase 146 H Lipase 22 Assessment And Plan - Current Problems (Diagnosis) (1) Acute cystitis without hematuria Current Visit: Yes Status: Acute (2) Hypokalemia Current Visit: No Status: Acute (3) Intractable nausea and vomiting Current Visit: No Status: Acute (4) Gastroparesis Current Visit: No Status: Chronic - Plan Intractable nausea and vomiting Continue Zofran. Patient evaluated by GI Dr. Wen and started on cholestyramine. Continue liquid diet. IV fluids Analgesics as needed. Resume patient's home dose Percocet. IV morphine as needed. Continue Protonix IV UTI UA suggest the presence of UTI Urine cultures pending. Patient developing low-grade fever despite 1 dose of Rocephin. Will change antibiotics to IV Cipro Follow urine culture Anxiety Continue home medications History of gastroparesis Continue home medications. Substance abuse with cannabis Cessation advised Possible cannabis induced hyperemesis DVT prophylaxis Advanced directive full Code
[2023-07-22] MEDS: ALPRAZOLAM 0.5 MG TABLET PO SCH (20:51)
[2023-07-22] MEDS: CIPROFLOXACIN 400mg IV 400 MG/200 ML BAG IV SCH (20:51)
[2023-07-22] MEDS: PARoxetine HCL 10 MG TAB PO SCH (20:51)
[2023-07-22] MEDS: ESZOPICLONE 1 MG TAB PO SCH (20:52)
[2023-07-22 23:29] VITALS: BMI 24.1
[2023-07-23] MEDS: ENOXAPARIN 40 MG/0.4 ML SQ SCH (07:35)
[2023-07-23] MEDS: BREXPIPRAZOLE 2 MG PO SCH (07:35)
--- NOTE | 2023-07-23 12:14 | EKG ---
Test Date: 2023-07-21 Test Time: 18:59:19 Repair Service Dispatcher: MEASUREMENT RESULTS: Intervals: Rate: 88 [place]: 138 QRSD: 86 QT: 378 QTc: 457 [place]: P: 80 [place]: 138 QRS: 79 T: 70 INTERPRETIVE STATEMENTS: Sinus rhythm with marked sinus arrhythmia Otherwise normal ECG Compared to ECG 03/23/2023 20:31:37 Prolonged QT interval no longer present Electronically Signed On 07-23-23 12:13:28 CDT by Jose Cruz Faith
[2023-07-23 12:59] VITALS: BP 128/77; TEMP 100
== END 2023-07-23 09:50 | disposition home or self-care (01) | DRG 690 ==
LOC: ER 17:30 → ERHOLD 22:21 → 2ND 23:25 → OBSVTOIN 07-23 08:26
PROVIDERS: ADMIT Family Medicine; ATTEND Internal Medicine
DX: N30.00 Acute cystitis without hematuria (principal); K31.84 Gastroparesis; E87.6 Hypokalemia; F32.A Depression, unspecified; G62.9 Polyneuropathy, unspecified; F12.10 Cannabis abuse, uncomplicated; E28.2 Polycystic ovarian syndrome; F41.1 Generalized anxiety disorder; F43.10 Post-traumatic stress disorder, unspecified; A05.9 Bacterial foodborne intoxication, unspecified; Z23 Encounter for immunization; Z88.5 Allergy status to narcotic agent; Z63.5 Disruption of family by separation and divorce; Z88.8 Allergy status to other drugs, medicaments and biological substances; Z90.49 Acquired absence of other specified parts of digestive tract; Z79.899 Other long term (current) drug therapy
CPT/HCPCS: 36415; 71045; 74177; 80053; 80307; 81001; 81025; 83690; 85025; 87086; 87088; 90471; 90732; 93005; 96361; 96365; 96366; 96375; 99285; C9113; G0378; J0696; J0744; J1650; J2270; J2405; J2765; J3480; J7030; J7120; Q9967

== ENCOUNTER 2023-09-12 12:32 | Emergency (ER) | payer MEDICARE ==
--- OUTSIDE RECORDS SUMMARY | 2023-09-12 12:38 | XMS REPORT | Continuity of Care Document ---
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 Name Role Phone STEVO DANIELS JR Primary Care Physician Dar Elliott Attending Clinician Unavail able Opal Oreilly Attending Clinician [phone] JULIÁN GARRETT Attending Clinician Unavailab GIOVANY Pimentel Attending Clinician Unavailable Clinic, Gastroenterology Attending Clinician [phone] Jl WEINERP, Ericca D Attending Clinician [phone] Scott Mai DO Attending Clinician Anselmo Caballero DO Attending Clinician CAIT BRAGG Attending Clinician Unavailable Jose Maki Attending Clinician Unavailable [facility] Attending Clinician Unavailable Marylou Johnson NP Attending Clinician [phone] Ted Schultz Attending Clinician Unavailable Kaelyn Peguero Attending Clinician Unavailable Physician, No Primary or Family Admitting Clinic monse Unavailable JULIÁN GARRETT Admitting Clinician Unavailab Prieto Admitting Clinician Unavailable Payers Payer Name Policy Type Policy Number Effective Date Expiration Date Source [facility] 6 [id number] [facility] [place] [place] [facility] HMO/PLUS [id number] 2022 00:00:00 2023 00:00:00 BCBS 2 [id number] 2023 00:00:00 Problems Condition Name Condition Details Condition Category Status Onset Date Resolution Date Last Treatment Date Treating Clinician Comments Source Gastroente ritis Gastroente ritis Disease Active 08-24 00:00: 00 [facility] Generalize d abdominal pain Generalize d abdominal pain Disease Active 08-24 00:00: 00 [facility] Gastropare sis Gastropare sis Disease Active 02-24 [...] Chronic pain Disease Active 2022-02 00:00: 00 Lauar Ivánold - Externa l Stomatitis Stomatitis Disease Active 2022-02 00:00: 00 Laura Brantleytomold - Externa l [id number] Pain of female genitalia Problem 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 Autoimmune disease Problem [facility] [id number] Lupus Problem [facility] Allergies, Adverse Reactions, Alerts Allergy Name Allergy Type Status Severity Reaction(s) Onset Date Inactive Date Treating Clinician Comments Source haloperi dol DA Active SV HIVES 09-06 00:00: 00 [facility] scopolam ine DA Active SV HIVES 09-06 00:00: 00 [facility] Haloperi dol Lactate Propensi ty to adverse reaction s Active Other 2022-02 00:00: 00 Laura Iva - Externa l Scopolam ine Hbr Propensi ty to adverse reaction s Active Other 2022-02 00:00: 00 Vision loss Laura Enrique - Externa l Haloperi dol Propensi ty to adverse reaction s Active Other - See comments 2022-02 00:00: 00 Dystonic reactions [facility] Scopolam ine Propensi ty to adverse reaction s Active Other - See comments 2022-02 00:00: 00 Visual changes [facility] HALOPERI DOL DRUG INGREDI Active Med Other-Cmnt 2022-02 00:00: 00 [facility] SCOPOLAM INE DRUG INGREDI Active Other-Cmnt 2022-02 00:00: 00 [facility] haloperi dol DA Active SV HIVES 06-11 00:00: 00 [facility] scopolam ine DA Active SV HIVES 06-11 00:00: 00 [facility] No Known Allergie s DA Active U 1- 00:00: 00 [facility] No Known Allergie s DA Active U 06-24 00:00: 00 [facility] No Known Allergie s DA Active U 06-24 00:00: 00 [facility] scopolam ine DA Active [place] 05-19 00:00: 00 [facility] scopolam ine DA Active [place] RASH-HIVES 410 00:00: 00 [facility] No Known Allergie s DA Active U 07-29 00:00: 00 [facility] No Known Allergie s DA Active U 07-29 00:00: 00 [facility] No Known Drug Intolera nces DA Active U 10-24 00:00: 00 [facility] No Known Drug Intolera nces DA Active U NONE 10-24 00:00: 00 [facility] NO KNOWN ALLERGIE S Drug Class Active [facility] [id number] Drug allergy Active Unknown [facility] scopolam ine scopolam ine Active Unknown [facility] Social History Social Habit Start Date Stop Date Quantity Comments Source Sexual orientation Opal Enrique - External History of Tobacco Use Current Smoker [facility] Sex Assigned At [facility] Alcohol intake 2023-02-24 00:00:00 2023-02-24 00:00:00 Ex-drinker [...] 00:00:00 2023-01-26 00:00:00 Laura Enrique - External Smoking Status Start Date Stop Date Source Tobacco smoking consumption unknown [facility] Current Smoker 2023-08-11 00:00:00 [facility] Ex-smoker 2023-01-27 00:00:00 2023-01-27 00:00:00 Laura Enrique - External Medications Ordered Medication Name Filled Medication Name Start Date Stop Date Current Medication? Ordering Clinician Indication Dosage Frequency Signature (SIG) Comments Components Source diphenhydrA MINE (BENADRYL) injection 12.5 mg 08-26 20:45: 00 08-26 20:09 :00 No 12.5mg 12.5 mg, Slow IV Push, ONCE, 1 dose, On Lyndsey 08/27/23 at 1545, STAT [facility] ketorolac (TORADOL) injection 15 mg 08-26 20:00: 00 08-26 19:12 :00 No 15mg 15 mg, Slow IV Push, ONCE, 1 dose, On Lyndsey 08/27/23 at 1500, [facility] haloperidol lactate (HALDOL) injection 2.5 mg 08-26 19:45: 00 08-26 20:09 :00 No 2.5mg 2.5 mg, Intravenou s, ONCE, 1 dose, On Lyndsey 08/27/23 at 1445, STAT [facility] proMETHazin e (PHENERGAN) 12.5 mg in NS 50 mL IV piggyback (CNR) 08-26 19:00: 00 08-26 19:21 :00 No 12.5mg 12.5 mg, IV Piggyback, at 200 mL/hr Administer over 15 Minutes, ONCE, 1 dose, On Lyndsey 08/27/23 at 1400, [facility] NaCl 0.9% (NS) bolus infusion 2,000 mL 08-26 18:00: 00 08-26 21:00 :00 No 2000mL at 999 mL/hr, 2,000 mL, IV Infusion, ONCE, 1 dose, On Thu08/27/23 at 1300, STAT [facility] diphenhydrA MINE (BENADRYL) injection 25 mg 08-26 18:00: 00 08-26 17:29 :00 No 25mg 25 mg, Slow IV Push, ONCE, 1 dose, On Thu08/27/23 at 1300, STAT [facility] metoclopram parker HCl (REGLAN) injection 10 mg 08-26 18:00: 00 08-26 17:29 :00 No 10mg 10 mg, Slow IV Push, ONCE, 1 dose, On Thu08/27/23 at 1300, RONNIE [facility] dicyclomine 20 mg tablet 08-24 00:00: 00 Yes [id number] 20mg Take 1 tablet by mouth every 6 (six) hours as needed for Abdominal pain. [facility] ondansetron 4 mg disintegrat ing tablet 08-24 00:00: 00 Yes [id number] 4mg Take 1 tablet by mouth every 8 (eight) hours as needed for Nausea and Vomiting (N/V). [facility] oxyCODONE-A cetaminophe n 5-325 MG oxyCODONE-A cetaminophe n 5-325 MG 08-10 00:00: 00 No 1{table t_as_ne eded} TID oxyCODONE- Acetaminop hen 5-325 MG Lyrica 25 MG Lyrica 25 MG 08-10 00:00: 00 No 1{capsu le} TID Lyrica 25 MG LORazepam (ATIVAN) injection 0.5 mg 06-23 02:03: 00 06-23 02:47 :00 No .5mg 0.5 mg, Slow IV Push, ONCE, 1 dose, On Thu06/23/23 at 2115, RONNIE [facility] proMETHazin e (PHENERGAN) 25 mg in NS 50 mL IV piggyback (CNR) 06-23 01:30: 00 06-23 02:07 :00 No 25mg 25 mg, IV Piggyback, at 200 mL/hr Administer over 15 Minutes, ONCE, 1 dose, On Thu06/23/23 at 2030, [facility] morpHINE (4 mg/mL) injection 4 mg 06-22 23:30: 00 06-22 23:40 :00 No 4mg 4 mg, Slow IV Push, ONCE, 1 dose, On Thu06/23/23 at 1830, [facility] metoclopram parker HCl (REGLAN) injection 10 mg 06-22 23:30: 00 06-22 23:40 :00 No 10mg 10 mg, Slow IV Push, ONCE, 1 dose, On Thu06/23/23 at 1830, [facility] iopamidol (ISOVUE 370-500 mL) injection 75 mL 06-22 23:14: 00 06-22 23:14 :00 No [id number] 75mL 75 mL, Intravenou s, ONCE, 1 dose, On Thu06/23/23 at 1830, Routine [facility] NaCl 0.9% (NS) bolus infusion 1,000 mL 06-22 22:30: 00 06-22 22:53 :00 No 1000mL at 999 mL/hr, 1,000 mL, IV Infusion, ONCE, 1 dose, On Thu06/23/23 at 1730, [facility] famotidine (PEPCID (PF)) injection 20 mg 06-22 21:45: 00 06-22 22:05 :00 No 20mg 20 mg, Slow IV Push, ONCE, 1 dose, On Thu06/23/23 at 1645, [facility] diphenhydrA MINE (BENADRYL) injection 25 mg 06-22 21:45: 00 06-22 22:05 :00 No 25mg 25 mg, Slow IV Push, ONCE, 1 dose, On Tu06/23/23 at 1645, STAT [facility] ondansetron (ZOFRAN (PF)) injection 4 mg 06-22 21:45: 00 06-22 22:03 :00 No 4mg 4 mg, Slow IV Push, ONCE, 1 dose, On Tu06/23/23 at 1645, RONNIE [facility] metoclopram parker HCl 10 mg tablet 06-22 00:00: 00 Yes [id number] 10mg Take 1 tablet by mouth every 6 (six) hours as needed for Nausea and Vomiting (N/V) or Gastroesop hageal reflux. [facility] proMETHazin e 25 mg suppository 06-22 00:00: 00 Yes [id number] 25mg Insert 1 Suppositor y into rectum every 6 (six) hours as needed for Nausea and Vomiting (N/V). [facility] dicyclomine 20 mg tablet 06-22 00:00: 00 Yes [id number] 20mg Take 1 tablet by mouth 4 (four) times daily as needed for Abdominal pain. [facility] Percocet 5-325 MG Percocet 5-325 MG 06-02 00:00: 00 No 1{table t_as_ne eded} QID Percocet 5-325 MG proCHLORper azine (COMPAZINE) injection 10 mg 05-29 19:45: 00 05-29 19:10 :00 No 10mg 10 mg, Slow IV Push, ONCE, 1 dose, On 05/30/23 at 1445, RONNIE [facility] diphenhydrA MINE (BENADRYL) injection 50 mg 05-29 19:00: 00 05-29 19:11 :00 No 50mg 50 mg, Slow IV Push, ONCE, 1 dose, On 05/30/23 at 1400, STAT [facility] Buprenorphi ne 10 MCG/HR Buprenorphi ne 10 MCG/HR 3-11 00:00: 00 No 1{patch _to_ski n} Buprenorph ine 10 MCG/HR HYDROcodone -Acetaminop hen 10-325 MG oral Tablet -16 00:00: 00 Yes [id number] 1{tbl} Q.5D Take 1 tablet by mouth 2 times daily as needed for pain. [facility] Methocarbam ol 500 MG oral Tablet - 00:00: 00 Yes [id number] 500mg QD Take 1 tablet (500 mg total) by mouth nightly as needed (muscle spasm). [facility] hall Pantoprazol e Sodium 20 MG Pantoprazol e Sodium 20 MG - 00:00: 00 No 1{table t} QD Pantoprazo le Sodium 20 MG PARoxetine HCl 20 MG PARoxetine HCl 20 MG - 00:00: 00 No 1{table t_in_th e_morni ng} QD PARoxetine HCl 20 MG valACYclovi r HCl 500 MG valACYclovi r HCl 500 MG - 00:00: 00 No 1{table t} QD valACYclov ir HCl 500 MG Promethazin e HCl 25 MG Promethazin e HCl 25 MG - 00:00: 00 No 1{table t_as_ne eded} BID Promethazi ne HCl 25 MG HYDROcodone -Acetaminop hen 10-325 MG HYDROcodone -Acetaminop hen 10-325 MG - 00:00: 00 No 1{table t_as_ne eded} BID HYDROcodon e-Acetamin ophen 10-325 MG Promethazin e HCl (PHENERGAN) 25 MG oral Tablet 1- 00:00: 00 Yes [id number] 25mg QD Take 1 tablet (25 mg total) by mouth daily as needed for nausea. Laura hall Valacyclovi r HCl (Valtrex) 500 MG oral Tablet 2022-02 2- 00:00: 00 Yes [id number] 500mg Take 1 tablet (500 mg total) by mouth daily. Laura hall predniSONE (DELTASONE) 20 MG oral tablet 2022-02- 00:00: 00 Yes 20mg Take 1 tablet (20 mg total) by mouth 2 times daily. [facility] hall HYDROcodone -Acetaminop hen 10-325 MG oral Tablet 2022-02 2-03 00:00: 00 Yes 1{tbl} Q.25D Take 1 tablet by mouth every 6 hours as needed for pain (joint murray and post LP). Laura Remya l dexamethaso ne sod phos PF injection 6 mg 2022-02 02:30: 00 12-27 01:51 :00 No 6mg 6 mg, Intravenou s, ONCE, 1 dose, On Thu12/26/22 at 2030, 1 mL [facility] penicillin g benzathine (BICILLIN L-A) injection 1.2 Million Units 2022-02 01:45: 00 12-27 01:53 :00 No 1.210 1.2 Million Units, Intramuscu lar, ONCE, 1 dose, On Thu12/26/22 at 1945, RONNIE
Re ason for Anti-Infec tive: Empiric Therapy for Suspected Infection< br>Empiric Therapy Site: HEENT
D uration of therapy: Once (ED) [facility] acetaminoph en (TYLENOL) tablet 650 mg 2022-02 01:45: 00 12-27 01:50 :00 No 650mg 650 mg, Oral, ONCE, 1 dose, On Thu12/26/22 at 1945, RONNIE [facility] ketorolac (TORADOL) injection 30 mg 2022-02 00:45: 00 12-27 00:59 :00 No 30mg 30 mg, Intramuscu lar, ONCE, 1 dose, On Thu12/26/22 at 1845, RONNIE [facility] hydrocortis one 1 mg/4 mL in nystatin suspension- diphenhydrA MINE solution suspension 2022-02 00:00: 00 12-30 05:59 :00 No [id number] 15mL Take 15 mL by mouth every 6 (six) hours as needed for Pain (scale 4-6) for up to 3 days. [facility] Famotidine (PEPCID) 20 MG oral tablet 2023-1 1-08 00:00: 00 02-24 00:00 :00 No [...] total) by mouth at bedtime. Laura hall Rexulti 2 MG Rexulti 2 MG No Rexulti 2 MG Meloxicam 15 MG Meloxicam 15 MG No 1{table t} QD Meloxicam 15 MG Methocarbam ol 500 MG Methocarbam ol 500 MG No 1{table t} BID Methocarba mol 500 MG Meloxicam 7.5 MG Meloxicam 7.5 MG No 1{table t} BID Meloxicam 7.5 MG Eszopiclone 3 MG Eszopiclone 3 MG No Eszopiclon e 3 MG Celecoxib 200 MG Celecoxib 200 MG No 1{capsu le_with _food} QD Celecoxib 200 MG Cyclobenzap rine HCl 5 MG Cyclobenzap rine HCl 5 MG No 1{table t_as_ne eded} BID Cyclobenza adriel HCl 5 MG Immunizations Ordered Immunization Name Filled Immunization Name [...] Value Comments Jose priest Systolic blood pressure 2023-08-27 20:00:00 153 mm[Hg] [facility] Diastolic blood pressure 2023-08-27 20:00:00 108 mm[Hg] [facility] Heart rate 2023-08-27 20:00:00 116 /min [facility] Respiratory rate 2023-08-27 20:00:00 18 /min [facility] Oxygen saturation in Arterial blood by Pulse oximetry 2023-08-27 20:00:00 98 /min [facility] Body temperature 2023-08-27 16:17:00 37.22 Caitlyn [facility] Body height 2023-08-27 16:17:00 157.5 cm [facility] Body weight 2023-08-27 16:17:00 63.504 kg [facility] BMI 2023-08-27 16:17:00 25.61 kg/m2 [facility] height 2023-08-11 11:30:00 62 [in_i] [facility] 2023-08-11 11:30:00 63.5 kg [facility] bmi 2023-08-11 11:30:00 25.6 kg/m2 [facility] temperature 2023-08-11 11:30:00 98.1 [degF] [facility] respiratory rate 2023-08-11 11:30:00 16 /min [facility] heart rate 2023-08-11 11:30:00 73 /min [facility] blood pressure systolic 2023-08-11 11:30:00 108 mm[Hg] [facility] blood pressure diastolic 2023-08-11 11:30:00 75 mm[Hg] [facility] Heart rate 2023-06-24 03:09:00 89 /min [facility] Body temperature 2023-06-24 03:09:00 36.83 Caitlyn [facility] Oxygen saturation in Arterial blood by Pulse oximetry 2023-06-24 03:09:00 94 /min [facility] Systolic blood pressure 2023-06-24 03:00:00 138 mm[Hg] [facility] Diastolic blood pressure 2023-06-24 03:00:00 96 mm[Hg] [facility] Respiratory rate 2023-06-24 03:00:00 16 /min [facility] Body height 2023-06-23 20:54:00 157.5 cm [facility] Body weight 2023-06-23 20:54:00 61.236 kg [facility] BMI 2023-06-23 20:54:00 24.69 kg/m2 [facility] Systolic blood pressure 2023-05-30 20:00:00 145 mm[Hg] [facility] Diastolic blood pressure 2023-05-30 20:00:00 104 mm[Hg] [facility] Heart rate 2023-05-30 20:00:00 72 /min [facility] Respiratory rate 2023-05-30 20:00:00 17 /min [facility] Oxygen saturation in Arterial blood by Pulse oximetry 2023-05-30 20:00:00 99 /min [facility] Body temperature 2023-05-30 18:54:00 35.94 Caitlyn [facility] Body height 2023-05-30 18:54:00 157.5 cm [facility] Body weight 2023-05-30 18:54:00 63.504 kg [facility] BMI 2023-05-30 18:54:00 25.61 kg/m2 [facility] Systolic blood pressure 2023-02-24 17:40:00 110 mm[Hg] Laura Abreu ld - External Diastolic blood pressure 2023-02-24 17:40:00 62 mm[Hg] Laura Abreu ld - External Heart rate 2023-02-24 17:40:00 106 /min David Enrique - External Body temperature 2023-02-24 17:40:00 36.61 Caitlyn Laura Enrique - External Respiratory rate 2023-02-24 17:40:00 16 [...] External Heart rate 2023-01-27 16:54:00 116 /min David y Seybold - External Body temperature 2023-01-27 16:54:00 37.78 Caitlyn Laura Seybold - External Body height 2023-01-27 16:54:00 157.5 cm Beatris ey Seybold - External Body weight 2023-01-27 16:54:00 65.227 kg Beatris ey Seybold - External BMI 2023-01-27 16:54:00 26.30 kg/m2 Beatris ey Seybold - External Systolic blood pressure 2022-12-27 02:16:00 111 mm[Hg] [facility] Diastolic blood pressure 2022-12-27 02:16:00 82 mm[Hg] [facility] Heart rate 2022-12-27 02:16:00 93 /min [facility] temperature 2022-12-27 02:16:00 37.56 Caitlyn [facility] Respiratory rate 2022-12-27 02:16:00 20 /min [facility] Oxygen saturation in Arterial blood by Pulse oximetry 2022-12-27 02:16:00 96 /min [facility] Body height 2022-12-26 23:57:00 157.5 cm [facility] Body weight 2022-12-26 23:57:00 58.968 kg [facility] BMI 2022-12-26 23:57:00 23.78 kg/m2 [facility] Procedures Procedure Date / Time Performed Performing Clinician Source POCT TEST 2023-08-27 19:16:00 Opal Alanis [facility] LIPASE 2023-08-27 17:28:00 Opal Alanis [facility] MAGNESIUM 2023-08-27 17:28:00 Opal Alanis [facility] COMP. METABOLIC PANEL ([id number]) 2023-08-27 17:28:00 Opal Alanis [facility] URINE DRUG (IMMUNOASSAY) - COMPREHENSIVE DRUG SCREEN 2023-08-27 17:28:00 Opal Alanis [facility] CBC WITH DIFF 2023-08-27 17:28:00 Opal Alanis [facility] URINALYSIS 2023-08-27 17:28:[address] [facility] ABDOMEN PELVIS W CONTRAST 2023-06-23 23:23:56 Uday Parikh [facility] POCT TEST 2023-06-23 22:01:00 Uday Parikh [facility] LIPASE 2023-06-23 22:00:00 Uday Parikh [facility] COMP. METABOLIC PANEL ([id number]) 2023-06-23 22:00:00 Uday Parikh [facility] CBC WITH DIFF 2023-06-23 22:00:00 Uday Parikh [facility] URINALYSIS 2023-06-23 22:00:00 Uday Parikh [facility] CBC WITH DIFF 2022-12-27 01:49:00 Marylou Johnson [facility] RAPID STREP SCREEN FOR GROUP A 2022-12-27 00:59:00 Marylou Johnson [facility] NOTICE OF PRIVACY PRACTICES 2022-12-26 23:28:27 Doctor Unassigned, [place] [facility] CONSENT/REFUSAL FOR DIAGNOSIS AND TREATMENT 2022-12-26 23:27:35 Doctor Unassigned, [place] [facility] Encounters Start Date/Time End Date/Time Encounter Type Admission Type Attending [facility] Care Facility Care Department Encounter ID Source 2023-08-11 11:35:01 Outpatient Stevo Daniels CLS CLS [id number] [facility] 2020-06-24 15:53:22 Inpatient [facility] [id number] 2020-05-19 11:42:02 Inpatient [facility] [id number] [facility] 2019-07-30 21:08:00 Inpatient [facility] ER [id number] [facility] 2023-09-07 15:25:00 2023-09-07 17:47:00 Emergency EM Dar Arizmendi [facility] ER [id number] [facility] 2023-08-27 11:16:00 2023-08-27 16:54:00 Emergency AnnabelleOpal Yolanda [facility] [id number] [facility] 2023-08-25 20:17:00 2023-08-26 00:43:00 Emergency X JULIÁN GARRETT [facility] ERT [id number] [facility] 2023-08-11 14:00:00 2023-08-11 14:00:00 Outpatient GIOVANY HAGER [id number] Laura Enrique 2023-08-11 00:00:00 2023-08-11 00:00:00 Office Visit- Est Pt.- Level 4 [facility] CLS [id number] Yoni [facility] 2023-08-11 00:00:00 2023-08-11 00:00:00 (TEL) [facility] CLS [id number] Y[facility] 2023-08-10 13:30:00 2023-08-10 13:30:00 Outpatient GIOVANY HAGER [id number] Laura Iva 2023-06-24 00:00:00 2023-06-24 14:28:11 Letter (Out) Clinic, Gastroenter ology [facility] [id number] [facility] 2023-06-23 15:55:00 2023-06-23 22:22:00 Emergency Uday Parikh Timothy [facility] [id number] [facility] 2023-05-30 13:55:00 2023-05-30 15:41:00 Emergency Anselmo Caballero [facility] [id number] [facility] 2023-05-04 14:30:00 2023-05-04 14:30:00 Outpatient GIOVANY HAGER [id number] Laura Enrique 2023-05-04 11:15:00 2023-05-04 11:15:00 Outpatient GIOVANY HAGER [id number] Laura Enrique 2023-05-04 11:00:00 2023-05-04 11:00:00 Outpatient LAKESHAMEY CARRIESHARIF [facility] [id number] [facility] 2023-04-22 00:00:00 2023-04-22 00:00:00 Outpatient GIOVANY HAGER [id number] Laura Enrique 2023-04-14 02:00:00 2023-04-14 03:25:00 Emergency ALEJANDRA Jose Maki [facility] [id number] [facility] 2023-04-10 00:00:00 2023-04-10 00:00:00 Outpatient GIOVANY HAGER [id number] Laura Enrique 2023-03-27 09:00:00 2023-03-27 09:00:00 Outpatient GIOVANY HAGER [id number] Laura Enrique 2023-03-27 00:00:00 2023-03-27 00:00:00 Outpatient PREZAS, GIOVANY DIALLOSEY [id number] Laura Seybold 2023-03-27 00:00:00 2023-03-27 00:00:00 Outpatient PREZAS, GIOVANY DIALLOSEY [id number] Laura Seybold 2023-03-26 00:00:00 2023-03-26 00:00:00 Outpatient PREZAS, GIOVANY DIALLOSEY [id number] Laura Seybold 2023-03-26 00:00:00 2023-03-26 00:00:00 Outpatient PREZAS, GIOVANY PIZANO LAURA [id number] Laura Seybold 2023-03-25 14:00:00 2023-03-25 14:00:00 Outpatient PREZAS, GIOVANY PIZANO LAURA [id number] Laura Seybold 2023-03-10 00:00:00 2023-03-10 00:00:00 Outpatient PREZAS, GIOVANY PIZANO LAURA [id number] Laura Seybold 2023-03-09 00:00:00 2023-03-09 00:00:00 Outpatient PREZAS, GIOVANY PIZANO LAURA [id number] Laura Seybold 2023-03-04 00:00:00 2023-03-04 00:00:00 Outpatient PREZAS, GIOVANY PIZANO LAURA [id number] Laura Seybold 2023-03-03 00:00:00 2023-03-03 00:00:00 Outpatient PREZAS, GIOVANY PIZANO LAURA [id number] Laura Seybold 2023-03-02 00:00:00 2023-03-02 00:00:00 Outpatient PREZAS, GIOVANY PIZANO LAURA [id number] Laura Seybold 2023-03-02 00:00:00 2023-03-02 00:00:00 Outpatient PREZAS, GIOVANY LAURA PIZANO [id number] Laura Seybold 2023-03-02 00:00:00 2023-03-02 00:00:00 Outpatient PREZAS, GIOVANY LAURA PIZANO [id number] Laura Seybold 2023-03-02 00:00:00 2023-03-02 00:00:00 Outpatient PREZAS, GIOVANY PIZANO LAURA [id number] Laura Seybold 2023-02-27 00:00:00 2023-02-27 00:00:00 Outpatient PREZAS, GIOVANY PIZANO LAURA [id number] Laura Seybold 2023-02-25 00:00:00 2023-02-25 00:00:00 Outpatient PREZAS, GIOVANY PIZANO LAURA [id number] Laura Seybold 2023-02-24 11:30:00 2023-02-24 11:30:00 Outpatient PREZAS, GIOVANY PIZANO LAURA [id number] Laura Seybold 2023-02-18 00:00:00 2023-02-18 00:00:00 Outpatient PREZAS, GIOVANY LAURA PIZANO [id number] Laura Seybold 2023-02-12 00:00:00 2023-02-12 00:00:00 Outpatient PREZAS, GIOVANY PIZANO LAURA [id number] Laura Seybold 2023-02-12 00:00:00 2023-02-12 00:00:00 Outpatient PREZAS, GIOVANY LAURA LAURA [id number] Laura Seybold 2023-02-11 00:00:00 2023-02-11 00:00:00 Outpatient PREZAS, GIOVANY LAURA PIZANO [id number] Laura Seybold 2023-01-28 00:00:00 2023-01-28 00:00:00 Outpatient PREZAS, GIOVANY PIZANO LAURA [id number] Laura Seybold 2023-01-28 00:00:00 2023-01-28 00:00:00 Outpatient PREZAS, GIOVANY LAURA PIZANO [id number] Laura Seybold 2023-01-27 13:00:00 2023-01-27 13:00:00 Outpatient LABStephen PIZANO [id number] Laura Seybold 2023-01-27 10:45:00 2023-01-27 10:45:00 Outpatient PREZAS, GIOVANY LAURA PIZANO [id number] Laura Enrique 2023-01-27 00:00:00 2023-01-27 00:00:00 Outpatient GIOVANY HAGER [id number] Laura Enrique 2022-12-26 17:57:00 2022-12-26 20:20:00 Emergency Marylou Johnson [facility] [id number] [facility] 2022-12-26 17:57:00 2022-12-26 20:20:00 Emergency X MARYLOU JOHNSON [facility] ERT [id number] [facility] 2022-06-11 11:10:00 2022-06-11 12:41:00 Emergency EM Ted Schultz [facility] [id number] [facility] 2021-02-09 23:10:00 2021-02-10 00:19:00 Emergency EM Kaelyn Peguero [facility] [id number] 49 [facility] Results Test Description Test Time Test Comments Results Result Co mments Source [id number] 16:15:00* Test Item Value Reference Range Interpretation Comme nts LIPASE (test code = LIP) 20 U/L 13-75 N CBC W/AUTO [id number] 15:55:00* Test Item Value Reference Range Interpretation Comme nts WHITE BLOOD CELL (test code = WBC) 7.2 X10(3) 4.5-11.0 N RED BLOOD CELL (test code = RBC) 5.02 X10(6) 4.2-5.4 N HEMOGLOBIN (test code = HGB) 13.2 g/dL 12.5-16.0 N HEMATOCRIT (test code = HCT) 41.0 % 37.0-47.0 N MEAN CELL VOLUME (test code = MCV) 81.7 fl 78-100 N MEAN CELL HGB (test code = MCH) 26.3 pg 26.0-34.0 N MEAN CELL HGB CONCETRATION (test code = MCHC) 32.2 g/dl 30.0-37.0 N RED CELL DISTRIBUTION WIDTH (test code = RDW) 16.4 % 11.5-14.5 H PLATELET COUNT (test code = PLT) 268 X10(3) 150-400 N MEAN PLATELET VOLUME (test c ode = MPV) 11.3 fl 8.7-11.4 N NEUTROPHIL % (test code = NT%) 68.9 % 36.0-66.0 H IMMATURE GRANULOCYTE % (test code = IG%) 0.3 % 0.0-2.0 N LYMPHOCYTE % (test code = LY%) 21.9 % 16.0-50.0 N MONOCYTE % (test code = MO%) 7.8 % 0.0-13.0 N EOSINOPHIL % (test code = EO%) 0.7 % 0.0-4.5 N BASOPHIL % (test code = BA%) 0.4 % 0.0-1.5 N NUCLEATED RBC % (test code = NRBC%) 0.0 % 0-0.2 N NEUTROPHIL # (test code = NT#) 4.95 X10(3) 1.70-7.70 N IMMATURE GRANULOCYTE # (test code = IG#) 0.02 X10(3)uL 0.00-0.03 N LYMPHOCYTE # (test code = LY#) 1.57 X10(3) 0.70-4.00 N MONOCYTE # (test code = MO#) 0.56 X10(3) 0.00-0.89 N EOSINOPHIL # (test code = EO#) 0.05 X10(3) 0.00-0.60 N BASOPHIL # (test code = BA#) 0.03 X10(3) 0.00-0.20 N NUCLEATED RBC # (test code = NRBC#) 0.00 K/mm3 0.0-0.1 N RBC MORPHOLOGY REQUIRED (andrew t code = RBCM) NO NORMAL POCT [id number] 19:16:00* Test Item Value Reference Range Interpretation Comme nts POCT PREG (test code = 1605) Negative On board controls acceptable with C Line (test code = 3574) Yes POCT PREG LOT # (test code = 3575) HCG [id number] POCT PREG TEST DATE (test code = 3576) 06/12/2024 Lab Interpretation (test cod e = 73065-6) [facility] 18:58:12* Test Item Value Reference Range Interpretation Comme nts MAGNESIUM (test code = 3076815364) 1.7 mg/dL 1.7-2.4 Lab Interpretation (test cod e = 59831-8) Normal [facility]. Metabolic Panel (43410)2023-08-27 18:57:51* Test Item Value Reference Range Interpretation Comme nts NA (test code = 9575736966) 138 mmol/L 135-145 K (test code = 3855382735) 3.3 mmol/L 3.5-5.0 L CL (test code = 7300437011) 108 mmol/L 98-108 CO2 TOTAL (test code = 5770075807) 21 mmol/L 23-31 L AGAP (test code = 2795673503) 9 2-16 BUN (test code = 6114957900) 7 mg/dL 7-23 GLUCOSE (test code = 0268777361) 91 mg/dL 70-110 CREATININE (test code = 2160-0) 0.47 mg/dL 0.50-1.04 L TOTAL BILI (test code = 6387606069) 0.8 mg/dL 0.1-1.1 CALCIUM (test code = 8013013020) 8.4 mg/dL 8.6-10.6 L T PROTEIN (test code = 7846427505) 6.8 g/dL 6.3-8.2 ALBUMIN (test code = 0307340337) 4.0 g/dL 3.5-5.0 ALK PHOS (test code = 9073644833) 116 U/L 34-122 ALTv (test code = 1742-6) 25 U/L 5-35 AST(SGOT) (test code = 2421341140) 60 U/L 13-40 H eGFR (test code = 41892-1) 129.9 mL/min/1.73m2 CKD-EPI eGFR (2020). Assuming creatinine has been stable day-to-day for at least three months, the eGFR indicates Category G1 (>= 90 mL/min/1.73 m2) Lab Interpretation (test code = 16920-6) Abnormal [facility]24-07-18 18:57:31* Test Item Value Reference Range Interpretation Comme nts LIPASE (test code = 4591814676) 61 U/L 0-220 Lab Interpretation (test cod e = 18534-1) Normal [facility] with [id number] 18:43:08* Test Item Value Reference Range Interpretation Comme nts WBC (test code = 6690-2) 5.21 4.30-11.10 RBC (test code = 789-8) 4.31 3.93-5.25 HGB (test code = 718-7) 11.6 g/dL 11.6-15.0 HCT (test code = 4544-3) 36.3 % 35.7-45.2 MCV (test code = 787-2) 84.2 fL 80.6-95.5 MCH (test code = 785-6) 26.9 pg 25.9-32.8 MCHC (test code = 786-4) 32.0 g/dL 31.6-35.1 RDW-SD (test code = 83198-9) 53.1 fL 39.0-49.9 H RDW-CV (test code = 788-0) 17.2 % 12.0-15.5 H PLT (test code = 777-3) 231 166-358 MPV (test code = 28764-7) 12.7 fL 9.5-12.9 IPF % (test code = 8923397005) 8.1 % 1.3-7.7 H Platelet count measured by fluorescence method. NRBC/100 WBC (test code = 7225995396) 0.0 0.0-10.0 NRBC x10^3 (test code = 9426662529) See_Comment [Automated EqsQuesta ge] The system which generated this result transmitted reference range: 10*3/?L. The reference range was not used to interpret this result as normal/abnormal. GRAN MAT (NEUT) % (test code = 770-8) 63.7 % IMM GRAN % (test code = 9926227802) 0.20 % LYMPH % (test code = 736-9) 25.5 % MONO % (test code = 5905-5) 9.6 % EOS % (test code = 713-8) 0.4 % BASO % (test code = 706-2) 0.6 % GRAN MAT x10^3(ANC) (test code = 9688753507) 3.32 10*3/uL 1.88-7.09 IMM GRAN x10^3 (test code = 7243018761) 0.00-0.06 LYMPH x10^3 (test code = 731-0) 1.33 10*3/uL 1.32-3.29 MONO x10^3 (test code = 742-7) 0.50 10*3/uL 0.33-0.92 EOS x10^3 (test code = 711-2) 0.03-0.39 L BASO x10^3 (test code = 704-7) 0.03 10*3/uL 0.01-0.07 Lab Interpretation (test code = 56948-1) Abnormal [facility] ABDOMEN PELVIS W [id number] 00:41:14ORDERING PHYSICIAN: UDAY PARIKH HISTORY: Nausea/vomiting Abdominal pain, acute, nonlocalized TECHNIQUE: CT abdomen and pelvis with intravenous contrast. Thisexamination was performed according toALARA principles. COMPARISON: None. FINDINGS:Visualized lower chest: Within [...] withinnormal limits. No lymphadenopathy. Bones: No acute abnormality.[facility] POCT [id number] 22:01:00* Test Item Value Reference Range Interpretation Comme nts POCT PREG (test code = 1605) Negative On board controls acceptable with C Line (test code = 3574) Yes POCT PREG LOT # (test code = 3575) [id number] POCT PREG TEST DATE ( test code = 3576) 03/18/2024 Lab Interpretation (test cod e = 80257-6) Normal [facility] Partial Thrombo Time [id number] 14:50:00 * Test Item Value Reference Range Interpretation Comme nts POC Partial Thrombo Time PE (test code = EDPTTPE) 20 Sec 21-39 L The Hemochron Ci trate Activated Partial ThromboplastinTime (APTT) is a quantitative assay intended for in vitrodiagnostic testing using a citrated venous whole bloodsample. Results are expressed in Plasma Equivalent Seconds. [facility] [facility], [address], [place], [address], POC [id number] 05:04:00* Test Item Value Reference Range Interpretation [...] PT value based on a regression analysis. [facility], [address], [place], [address], URINE DRUG SCREEN [id number] 02:46:00* Test Item Value Reference Range Interpretation [...] results should not beused for non-medical purposes. [facility] [facility], [address], [place], [address], POC,HCG URINE, [id number] 02:38:00* Test Item Value Reference Range Interpretation Comme nts POC,HCG URINE, QUALITATIVE ( test code = EDHCGU) Negative Negative [facility] [facility], [address], [place], [address], URINALYSIS [id number] 02:32:00* Test Item Value Reference Range Interpretation [...] ESTERASE (test code = EDLEUK) Negative Negative [facility] [facility], [address], [place], [address], - CT ABD PELVIS W/O [id number] 02:32:00 [facility] : 1990 Sex: FName: BREANNA GLYNN [facility] : 1990 Age/S: 32 / F [address] Unit #: [id number] Loc: [place] [address] Phys: Jose Maki MD Acct: [id number] Dis Date: Status: PRE ER PHONE #: Exam Date: 04/14/2023 0227 FAX #: Reason: epigastric abd pain suspect gastroparesis EXAMS: CPT CODE: [id number] CT ABD PELVIS W/O CONT 06689 - CT ABD PELVIS W/O CONT INDICATION /CLINICAL INFORMATION: epigastric abd pain suspect gastroparesis COMPARISON: [...] IMPRESSION: No acute findings. Specifically the stomach isnot significantly distended. at 0232 Reported and signed by: DIANE KILPATRICK MD PAGE 1 Signed Report (CONTINUED) [facility] 1990 Age/S: 32 / F [address] Unit #: [id number] Loc:[place] [address] Phys: Jose Maki MD Acct: [id number] Dis Date: Status: PRE ER PHONE #: Exam Date: 04/14/2023 022 FAX #: Reason: epigastric abd pain suspect gastroparesis EXAMS: CPT CODE: [id number] CT ABD PELVIS W/O CONT 78095 (Continued) CC: Jose Maki MD Technologist:Milagro Rosen RT (R) CT CTDI: 8 DLP: 395 Trnscb Date/Time: 04/14/2023 (231) t.SDR.NH16 Orig Print D/T: S:04/14/2023 (0236) PAGE 2 Signed ReportCOMPREHENSIVE METABOLIC [id number] 02:31:00* Test Item Value Reference Range Interpretation [...] result value is determined by the eGFR 2021 CKD-EPIformula using serum creatinine, age and sex, [...] code = EDALP) 127 U/L 42-141 [facility], [address] [facility] [address], [place], [address], POC,[id number] 02:31:00* Test Item Value Reference Range Interpretation Comme [facility] POC,AMYLASE (test code = EDAMY) 118 U/L 14-97 [facility], [address], [place], [address], COMPLETE BLOOD COUNT (CBC)2023-04-14 02:21:00* Test Item Value Reference Range Interpretation Comme [facility] POC,WHITE BLOOD CELL (test c ode = [...] [facility], [address], [place], [address], UA RFLX MICROSCOPIC [id number] 11:54:00* Test Item Value Reference Range Interpretation [...] Suprapubic PainURINE SOURCE: CLEAN CATCH URINEUR HCG [id number] 11:54:00* Test Item Value Reference Range Interpretation Comme nts UR HCG QUAL (test code = HCGQLU) NEGATIVE NEGATIVE Indication for culture: Suprapubic PainURINE SOURCE: CLEAN CATCH URINE COMPREHENSIVE METABOLIC [id number] 11:49:00* Test Item Value Reference Range Interpretation [...] code = ALKP) 105 U/L 45-117 N [id number] 11:49:00* Test Item Value Reference Range Interpretation Comme nts AMYLASE (test code = PARAM) 73 IU/L 25-115 N [id number] 11:49:00* Test Item Value Reference Range Interpretation Comme nts LIPASE (test code = LIP) 134 U/L 73-393 N CBC W/AUTO [id number] 11:33:00* Test Item Value Reference Range Interpretation [...] code = RBCM) NO NORMAL COMPREHENSIVE METABOLIC [id number] 16:11:00* Test Item Value Reference Range Interpretation [...] > or = 60 ml/min/1.73M2IF PATIENT IS -BRAZILIAN, MULTIPLY REPORTED RESULT BY1.21. [Automated message] The [...] code = ALKP) 139 U/L 45-117 H [id number] 16:11:00* Test Item Value Reference Range Interpretation Comme nts LIPASE (test code = LIP) 108 U/L 73-393 N URINALYSIS W REFLEX [id number] 16:05:00* Test Item Value Reference Range Interpretation [...] UAMICRO) Y= DO UA MICRO UR HCG [id number] 16:05:00* Test Item Value Reference Range Interpretation Comme nts UR HCG QUAL (test code = HCGQLU) NEGATIVE NEGATIVE URINALYSIS W REFLEX [id number] 16:05:00* Test Item Value Reference Range Interpretation [...] = UAMICRO) Y= DO UA MICRO UA [id number] 16:05:00* Test Item Value Reference Range Interpretation Comme nts UA WBC (test code = WBCU) 0-2 #/hpf 0-5 UA RBC (test code = RBCU) 0-2 #/hpf 0-5 UA EPITHELIAL CELLS (test co de = EPIU) 2+ /hpf NEG,FEW A UA BACTERIA (test code = BACU) FEW /hpf NEGATIVE A UA AMORPHOUS SEDIMENT (test code = AMORU) FEW /hpf NEG,FEW UR HCG [id number] 16:05:00* Test Item Value Reference Range Interpretation Comme nts UR HCG QUAL (test code = HCGQLU) NEGATIVE NEGATIVE URINALYSIS W REFLEX [id number] 16:05:00* Test Item Value Reference Range Interpretation [...] UAMICRO) Y= DO UA MICRO UR HCG [id number] 16:05:00* Test Item Value Reference Range Interpretation Comme nts UR HCG QUAL (test code = HCGQLU) NEGATIVE NEGATIVE DRUGS OF ABUSE [id number] 16:01:00* Test Item Value Reference Range Interpretation [...] 300 NG/MLPHENCYCLIDINE 25 NG/ML URINALYSIS W REFLEX [id number] 15:58:00* Test Item Value Reference Range Interpretation [...] NEEDED? (test code = UAMICRO) UR HCG [id number] 15:58:00* Test Item Value Reference Range Interpretation Comme nts UR HCG QUAL (test code = HCGQLU) NEGATIVE NEGATIVE CBC W/AUTO [id number] 15:52:00* Test Item Value Reference Range Interpretation [...] = RBCM) NO NORMAL URINALYSIS W REFLEX [id number] 13:00:00* Test Item Value Reference Range Interpretation [...] Y= DO UA MICRO UA ICTOTEST FOR [id number] 13:00:00* Test Item Value Reference Range Interpretation Comme nts UA ICTOTEST FOR BILIRUBIN (t est code = ICTOU) POSITIVE NEGATIVE A UA [id number] 13:00:00* Test Item Value Reference Range Interpretation Comme nts UA WBC (test code = WBCU) 0-2 #/hpf 0-5 UA RBC (test code = RBCU) 3-5 #/hpf 0-5 UA EPITHELIAL CELLS (test co de = EPIU) FEW /hpf NEG,FEW UA BACTERIA (test code = BACU) FEW /hpf NEGATIVE A UA MUCUS (test code = MUCU) 1+ /hpf NEG,FEW A UR HCG [id number] 13:00:00* Test Item Value Reference Range Interpretation Comme nts UR HCG QUAL (test code = HCGQLU) NEGATIVE NEGATIVE DRUGS OF ABUSE [id number] 12:57:00* Test Item Value Reference Range Interpretation [...] 300 NG/MLPHENCYCLIDINE 25 NG/ML URINALYSIS W REFLEX [id number] 12:56:00* Test Item Value Reference Range Interpretation [...] Y= DO UA MICRO UA ICTOTEST FOR [id number] 12:56:00* Test Item Value Reference Range Interpretation Comme nts UA ICTOTEST FOR BILIRUBIN (t est code = ICTOU) POSITIVE NEGATIVE A UR HCG [id number] 12:56:00* Test Item Value Reference Range Interpretation Comme nts UR HCG QUAL (test code = HCGQLU) NEGATIVE NEGATIVE URINALYSIS W REFLEX [id number] 12:53:00* Test Item Value Reference Range Interpretation [...] UAMICRO) Y= DO UA MICRO UR HCG [id number] 12:53:00* Test Item Value Reference Range Interpretation Comme nts UR HCG QUAL (test code = HCGQLU) NEGATIVE NEGATIVE URINALYSIS W REFLEX [id number] 12:53:00* Test Item Value Reference Range Interpretation [...] UAMICRO) Y= DO UA MICRO UR HCG [id number] 12:53:00* Test Item Value Reference Range Interpretation Comme nts UR HCG QUAL (test code = HCGQLU) NEGATIVE NEGATIVE - XR ABDOMEN [id number] 12:16:00 [facility] [place] : 1990 Sex: F FAX: Sawyer Centeno II [place]: [place] [address]: PRE Name: BREANNA QUEEN [facility]ED : 1990 Age/S: 30/F [address] Unit #: [id number] Loc: [place] [address] Phys: Sawyer Centeno II, MD Acct: [id number] Dis Date: Status: PRE ER PHONE #: Exam Date: 05/19/2020 1212 FAX #: Reason: abdominal pain EXAMS:CPT CODE: [id number] XR ABDOMEN 2V 75892 - XR ABDOMEN 2V PROVIDED REASON FOR EXAM: abdominal pain CO MPARISON: None available. FINDINGS: Bowel gas pattern is [...] By: [email or web address] Orig Print D/T: S: 05/19/2020 (6441) PAGE 1 Signed ReportBASIC METABOLIC PANEL 2020-05-19 [...] > or = 60 ml/min/1.73M2IF PATIENT IS -BRAZILIAN, MULTIPLY REPORTED RESULT BY1.21. [Automated message] The system which generated this result transmitted reference range: >=60. The reference range was not used to interpret this result as normal/abnormal. CREATININE (test code = CREAT) 0.64 mg/dl 0.55-1.02 N CALCIUM (test code = CA) 9.8 mg/dL 8.5-10.1 N LIVER [id number] 12:08:00* Test Item Value Reference Range Interpretation [...] code = ALKP) 119 U/L 45-117 H [id number] 12:08:00* Test Item Value Reference Range Interpretation Comme nts LIPASE (test code = LIP) 67 U/L 73-393 L CBC W/AUTO [id number] 11:43:00* Test Item Value Reference Range Interpretation [...] = RBCM) NO NORMAL URINALYSIS W REFLEX [id number] 22:06:00* Test Item Value Reference Range Interpretation [...] MUCU) 2+ /hpf NEG,FEW A BASIC METABOLIC [id number] 21:54:00* Test Item Value Reference Range Interpretation [...] > or = 60 ml/min/1.73M2IF PATIENT IS -BRAZILIAN, MULTIPLY REPORTED RESULT BY1.21. CREATININE (test code = CREAT) 0.70 mg/dL 0.51-0.95 N CALCIUM (test code = CA) 9.3 mg/dL 8.5-10.1 N LIVER [id number] 21:54:00* Test Item Value Reference Range Interpretation [...] code = ALKP) 69 U/L 50-136 N [id number] 21:54:00* Test Item Value Reference Range Interpretation Comme nts LIPASE (test code = LIP) 63 U/L 73-393 L BASIC METABOLIC [id number] 21:53:00* Test Item Value Reference Range Interpretation [...] > or = 60 ml/min/1.73M2IF PATIENT IS -BRAZILIAN, MULTIPLY REPORTED RESULT BY1.21. CREATININE (test code = CREAT) 0.70 mg/dL 0.51-0.95 N CALCIUM (test code = CA) 9.3 mg/dL 8.5-10.1 N LIVER [id number] 21:53:00* Test Item Value Reference Range Interpretation [...] ( test code = ALKP) U/L 50-136 [id number] 21:53:00* Test Item Value Reference Range Interpretation Comme nts LIPASE (test code = LIP) 63 U/L 73-393 L BASIC METABOLIC [id number] 21:52:00* Test Item Value Reference Range Interpretation [...] > or = 60 ml/min/1.73M2IF PATIENT IS -BRAZILIAN, MULTIPLY REPORTED RESULT BY1.21. CREATININE (test code = CREAT) 0.70 mg/dL 0.51-0.95 N CALCIUM (test code = CA) 9.3 mg/dL 8.5-10.1 N LIVER [id number] 21:52:00* Test Item Value Reference Range Interpretation [...] ( test code = ALKP) U/L 50-136 [id number] 21:52:00* Test Item Value Reference Range Interpretation Comme nts LIPASE (test code = LIP) 63 U/L 73-393 L BASIC METABOLIC [id number] 21:51:00* Test Item Value Reference Range Interpretation [...] > or = 60 ml/min/1.73M2IF PATIENT IS -BRAZILIAN, MULTIPLY REPORTED RESULT BY1.21. CREATININE (test code = CREAT) 0.70 mg/dL 0.51-0.95 N CALCIUM (test code = CA) 9.3 mg/dL 8.5-10.1 N LIVER [id number] 21:51:00* Test Item Value Reference Range Interpretation [...] ( test code = ALKP) U/L 50-136 [id number] 21:51:00* Test Item Value Reference Range Interpretation Comme nts LIPASE (test code = LIP) 63 U/L 73-393 L BASIC METABOLIC [id number] 21:49:00* Test Item Value Reference Range Interpretation [...] = CA) 9.3 mg/dL 8.5-10.1 N LIVER [id number] 21:49:00* Test Item Value Reference Range Interpretation [...] ( test code = ALKP) U/L 50-136 [id number] 21:49:00* Test Item Value Reference Range Interpretation Comme nts LIPASE (test code = LIP) 63 U/L 73-393 L BASIC METABOLIC [id number] 21:48:00* Test Item Value Reference Range Interpretation [...] = CA) 9.3 mg/dL 8.5-10.1 N LIVER [id number] 21:48:00* Test Item Value Reference Range Interpretation [...] ( test code = ALKP) U/L 50-136 [id number] 21:48:00* Test Item Value Reference Range Interpretation Comme nts LIPASE (test code = LIP) U/L 73-393 BASIC METABOLIC [id number] 21:46:00* Test Item Value Reference Range Interpretation [...] (test code = CA) mg/dL 8.5-10.1 LIVER [id number] 21:46:00* Test Item Value Reference Range Interpretation [...] ( test code = ALKP) U/L 50-136 [id number] 21:46:00* Test Item Value Reference Range Interpretation Comme nts LIPASE (test code = LIP) U/L 73-393 CBC W/AUTO [id number] 21:43:00* Test Item Value Reference Range Interpretation [...] 0.0-0.1 N Notes Date/Time Note Provider Source 2023-09-07 15:32:00 [facility]) EMERGENCY PROVIDER REPORT REPORT#:[id number] REPORT STATUS: Signed DATE:09/07/23 TIME: 1531 PATIENT: BREANNA GLYNN UNIT #: [id number] ROOM/BED: AGE: 33 SEX: F PCP PHYS: No Primary or Family Physician SERVICE AUTHOR: Dar Arizmendi MD * ALL edits or amendments must be made on the electronic/computer document * HPI-Abd Pain F Under 40 Free Text HPI Notes Free Text HPI Notes 33-year-old female with past medical history of gastritis, GERD, IBS, gastroparesis, anxiety and bipolar d/o presents with epigastric pain nausea and vomiting onset 7 AM this morning. Patient states she has been unable to keep anything down today. Patient states she takes Reglan and Protonix and dicyclomine for her gastritis GERD and gastroparesis. Patient denies any bloody emesis. Patient denies chest pain shortness of breath fever chills diarrhea constipation dysuria or any other complaints. Patient states this is a recurrent frequent her. She has been working with her PCP to manage her symptoms. She has reportedly stopped using CBD and THC. General Initial Greet Date/Time 09/07/23 1527 Presentation Chief Complaint Abdominal pain, Nausea, Vomiting moderate Risk-Abd Pain F Under 40 )( Ectopic Risk factors reviewed Review of Systems ROS Statements All systems rev neg except as marked. Free Text ROS Notes Free Text ROS Notes Epigastric pain, nausea and vomiting Past Medical History - Adult Stated Complaint ABD PAIN/NAUSEA/VOMITING Allergies Coded Allergies: haloperidol (Severe, HIVES 09/07/23) scopolamine (Severe, HIVES 09/07/23) Home Medications Active Scripts IBUPROFEN (MOTRIN) 600 MG PO QID PRN PRN PAIN IBUPROFEN (MOTRIN) 600 MG PO QID PRN PRN PAIN #30 TABS Prov: 02/10/21 guaiFENesin ER (MUCINEX) 1,200 MG PO Q12H guaiFENesin ER (MUCINEX) 1,200 MG PO Q12H #30 TABS Prov: 02/10/21 Reported Medications AMOXICILLIN/CLAV K (AUGMENTIN 875/125 MG) 1 TAB PO Q12H PANTOPRAZOLE DR (PROTONIX) 20 MG PO DAILY [ASHKAN] Additional Medical History IBS gastroparesis anxiety bipolar d/o Past Surgical History: Reports: Cholecystectomy (2015), Breast biopsy/procedure (2008). Additional Surgical History bilateral ureter reattachment 1997 LEEP 2018 Botox injection to pylorus Alcohol Use Alcohol use (occasional) Drug Use Marijuana Physical Exam Vital Signs Vital Signs First Documented: Result Date Time Pulse Ox 98 09/06 1525 B/P 140/98 09/06 1525 B/P Mean 112 09/06 1525 O2 Delivery Room air 09/06 1525 O2 Flow Rate 0 09/06 1525 Temp 37.1 09/06 1525 Pulse 87 09/06 1525 Resp 18 09/06 1525 Last Documented: Result Date Time Pulse Ox 98 09/06 1525 B/P 140/98 09/06 1525 B/P Mean 112 09/06 1525 O2 Delivery Room air 09/06 1525 O2 Flow Rate 0 09/06 1525 Temp 37.1 09/06 1525 Pulse 87 09/06 1525 Resp 18 09/06 1525 Review of Vital Signs Reviewed Basic Physical Exam Basic PE HEAD: Atraumatic/NC, EYES: PERRL, conj clear, ENT: Membranes moist, NECK: Supple, EXT: No gross abnormality, SKIN: No rashes, warm/dry, NEURO: alert oriented, NEURO: gross movement NL, PSYCH: NL thought content Focused PE General/Const General/Const Awake, Alert Resp/Chest Respiratory/Chest Breath sounds NL, Breath sounds = bilat, No respiratory distress Cardiovascular Cardiovascular Heart rate NL, Regular rhythm, Heart sounds NL Abdomen/GI Abdomen/GI Soft, No guarding, No rebound, BS normoactive, No distention Tenderness/Guarding/Rebound Tender epigastric. Negative: Tender RUQ, Tender LUQ, Tender RLQ, Tender LLQ, Tender periumbilical, Tender suprapubic, Tender diffuse, Tender flank R, Tender flank L, Fuentes's sign positive, McBurney's point tender, Guarding voluntary, Guarding involuntary, Rebound localized, Rebound diffuse, Rigid to palpation. MS Back Back Inspection NL, No CVA tenderness Interpretation Diagnostics Lab Results Interpretation Results Laboratory Tests 09/07/23 1541: [Embedded Image Not Available] Laboratory Tests: 09/06 154 Chemistry Sodium (136 - 145 mmol/L) 137 Potassium (3.5 - 5.1 mmol/L) 4.5 Chloride (98 - 107 mmol/L) 109 H Carbon Dioxide (21 - 32 mmol/L) 22 BUN (7 - 18 mg/dL) 9 Creatinine (0.51 - 0.95 mg/dL) 0.61 Estimated GFR (MDRD) (>=60) 121.74 Glucose (70 - 100 mg/dL) 109 H Calcium (8.5 - 10.1 mg/dL) 9.2 Total Bilirubin (0.2 - 1.0 mg/dl) 0.5 AST (15 - 37 U/L) 17 ALT (12 - 78 U/L) 29 Alkaline Phosphatase (50 - 136 U/L) 151 H Total Protein (6.4 - 8.2 g/dl) 7.5 Albumin (3.4 - 5.0 g/dl) 3.7 Lipase (13 - 75 U/L) 20 Hematology WBC (4.5 - 11.0 X10(3)) 7.2 RBC (4.2 - 5.4 X10(6)) 5.02 Hgb (12.5 - 16.0 g/dL) 13.2 Hct (37.0 - 47.0 %) 41.0 MCV (78 - 100 fl) 81.7 MCH (26.0 - 34.0 pg) 26.3 MCHC (30.0 - 37.0 g/dl) 32.2 RDW (11.5 - 14.5 %) 16.4 H Plt Count (150 - 400 X10(3)) 268 MPV (8.7 - 11.4 fl) 11.3 Neut % (Auto) (36.0 - 66.0 %) 68.9 H Lymph % (Auto) (16.0 - 50.0 %) 21.9 [place] % (Auto) (0.0 - 13.0 %) 7.8 Eos % (Auto) (0.0 - 4.5 %) 0.7 Baso % (Auto) (0.0 - 1.5 %) 0.4 Immature Gran # (Auto) (0.00 - 0.03 X10(3)uL) 0.02 Absolute Neuts (auto) (1.70 - 7.70 X10(3)) 4.95 Absolute Lymphs (auto) (0.70 - 4.00 X10(3)) 1.57 Absolute Monos (auto) (0.00 - 0.89 X10(3)) 0.56 Absolute Eos (auto) (0.00 - 0.60 X10(3)) 0.05 Absolute Basos (auto) (0.00 - 0.20 X10(3)) 0.03 Absolute Nucleated RBC (0.0 - 0.1 K/mm3) 0.00 Immature Gran % (0.0 - 2.0 %) 0.3 Nucleated RBC % (0 - 0.2 %) 0.0 RBC Morphology (NORMAL) NO Lab Statement Laboratory studies reviewed and considered in the medical decision-making. ECG #1 Interpretation Text/Dict Note Rightward axis Date 09/07/23 Time 1650 Interpreted by and reviewed by me, Independently interpreted, ED physician NL ECG Interpretation Normal rate, Normal sinus rhythm, No acute ischemic changes, No STEMI, Normal intervals Re-Evaluation MDM Free Text MDM Notes Free Text MDM Notes Differential diagnosis includes gastroparesis, gastritis, GERD, pancreatitis, dehydration, electrolyte abnormalities Ordered labs IV fluid and Compazine. Patient received IV Zofran by EMS. Results: No concerning findings on labs. Administered morphine for patient's complaint of pain. Patient now resting comfortably, asleep but easily awakens. No vomiting. Advised patient continue with her home medications for her gastroparesis and gastritis and follow-up with her PCP for further management. )( Re-Evaluation/Progress #1 )( Re-Eval Status Improved ED Course Medication(s) Ordered Medication(s) Ordered: Central Nervous System Agents Sig/Ayanna Start time Last Medication Dose Route Stop Time Status Admin Morphine Sulfate 4 MG X1ED STA 09/06 1614 DC IV 09/06 1615 Electrolytic, Caloric, And Elvia Sig/Ayanna Start time Last Medication Dose Route Stop Time Status Admin Sodium Chloride 1,000 ML X1ED STA 09/06 1530 DC 09/06 IV 09/06 1629 1551 Gastrointestinal Drugs Sig/Ayanna Start time Last Medication Dose Route Stop Time Status Admin Prochlorperazine 10 MG X1ED STA 09/06 1530 DC 09/06 Edisylate IV 09/06 1531 1551 Patient Discharge Departure Vital Signs/Condition Vital Signs First Documented: Result Date Time Pulse Ox 98 09/06 1525 B/P 140/98 09/06 1525 B/P Mean 112 09/06 1525 O2 Delivery Room air 09/06 1525 O2 Flow Rate 0 09/06 1525 Temp 37.1 09/06 1525 Pulse 87 09/06 1525 Resp 18 09/06 1525 Last Documented: Result Date Time Pulse Ox 98 09/06 1525 B/P 140/98 09/06 1525 B/P Mean 112 09/06 1525 O2 Delivery Room air 09/06 1525 O2 Flow Rate 0 09/06 1525 Temp 37.1 09/06 1525 Pulse 87 09/06 1525 Resp 18 09/06 1525 All vital signs available at the time of this entry have been reviewed. Clinical Impression Clinical Impression Primary Impression: Gastroparesis Secondary Impressions: Gastritis Disposition Decision Discharge )( Discharged to Home Yes )( Time 1653 )( Date 09/07/23 at 1653 RPT #:[id number] END OF REPORT [facility] 2023-08-27 16:50:55 Pt given printed and verbal discharge instructions regarding cannabinoid hyperemesis syndrome, abdominal pain, vomiting, diarrhea. Pt verbalized understanding of instructions, pt awake alert oriented, resp reg unlabored, skin w/d, color appropriate for race, moves all ext well,pt encouraged to follow up with pcp Advised to seek medical attention for new/prolonged/worsening of symptoms No adverse reaction to meds given in ER noted upon discharge PIV d'cd, dressing to site, catheter in tact. Awake, alert oriented, resp reg unlabored, skin w/d, pt leaving amb with steady gait, in no apparent distress Lola Pennington RN [facility] 2023-08-27 15:00:00 Nurse Report Report given to BRUCE Davila. Chief complaint, assessment findings, and orders reviewed. Plan of care discussed with both nurses. Nicole Murillo RN Nicole Murillo RN [facility] 2023-08-27 13:13:22 Called lab for add on UDS. [facility] 2023-08-27 11:16:36 Patient arrived by [facility] for vomiting and abdominal pain. Patient has a history of gastroparesis. Was seen here two days ago for same symptoms. Was given zofran 4mg and Phenergan 25mg [employer]ENT[employer]ED [employer]. C/o diffuse abdominal pain. Khanh Luong RN [facility] 2023-06-23 22:15:00 Pt given printed and verbal discharge instructions regarding nausea and vomiting, encouraged hydration, Prescriptions provided to patient Discussed ibuprofen and to take with food to avoid GI distress. Pt verbalized understanding of instructions, pt awake alert oriented, resp reg unlabored, skin w/d, color appropriate for race, moves all ext well,pt encouraged to follow up with pcp Advised to seek medical attention for new/prolonged/worsening of symptoms No adverse reaction to meds given in ER noted upon discharge PIV d'cd, dressing to site, catheter in tact. Awake, alert oriented, resp reg unlabored, skin w/d, in no apparent distress, Flaquita Eid RN [facility] 2023-06-23 21:40:00 After Phenergan gtt finished patient stated "feeling disoriented." DO notified that Ativan has not been given yet. DO to bedside. Per DO okay to give Ativan then discharge. [facility] 2023-06-23 20:13:29 D/c hold due to patient actively vomiting while discussing discharge with her. Dr Mai notified and reassessed patient at bedside. New orders received. Kezia Fox RN [facility] 2023-06-23 19:02:59 Nurse Report Report given to BRUCE Hopson. Chief complaint, assessment findings, and orders reviewed. Nicole Murillo RN Nicole Murillo RN [facility] 2023-06-23 16:18:00 EKG preformed and given to provider. Karlie Neil RN [facility] 2023-06-23 16:15:00 Received call from 911 dispatch, stated that the [...] patient was also notified of the plan. [facility] 2023-06-23 15:51:27 From em[place] states" we pick her at her home with complaint of n&v, abd pain on left upper quadrant. She has hx of gastroperesis, last flare up was a month ago, initial assessment she is diaphoretic, cold skin, we started g 20 r ac iv, 300ml os nss bolus give, zofran 4mg and 12.5 prometazine" Aox4, rr even and non labored, placed on the waiting area. Marline Rachel RN [facility] 2023-06-23 15:47:00 Pt care to me at 1999. Persistent vomiting. Treated with phenergan and ativan. Discharged much improved Scott Mai DO 06/23/232204 EM-EMERGENCY MEDICINE STAFF [facility] 2023-05-30 15:40:45 PT D/C home. GCS15, VS stable. Given D/C paperwork. Pt ambulatory at time of discharge. Pt educated on med usage, follow up care, s/s worsening condition, need for hydration. Pt verbalized understanding. Pt ambulated from ED in NAD, pt to waiting room to await ride home Kezia Fox RN [facility] 2023-05-30 13:50:56 Pt to ED via [facility] N/V/Abd pain starting 4days ago worsening this morning. Seen at [facility] this morning and given phenergan and IVF and was DC. Pt states she does not feel better so she came to [facility] ED. 4mg zofran IVP and 100mL NS given en route. Nallely Minaya RN [facility] 2023-04-14 02:04:00 [facility] ([facility]) EMERGENCY PROVIDER REPORT REPORT#:[id number] REPORT STATUS: Signed DATE:04/14/23 TIME: 203 PATIENT: BREANNA GLYNN UNIT #: [id number] ROOM/BED: AGE: 32 SEX: F PCP PHYS: No Primary or Family Physician SERVICE AUTHOR: Jose Maki MD * ALL edits or amendments must be made on the electronic/computer document * HPI-Abd Pain F Under 40 Free Text HPI Notes Free Text HPI Notes 32-year-old presents with abdominal pain that started around 1 PM. Is epigastric with associated nausea. She has a history of IBS and gastroparesis. She has had a bilateral ureteral stent reattachment in 1997 as well as Botox to the pylorus in the past. She has had a cholecystectomy. She said that she went to a different freestanding around 4 PM and [...] nausea and emesis. The patient currently is on multiple medications including hydrocodone, Tylenol with codeine, chlorpromazine for nausea, promethazine for nausea, Xanax for anxiety, and Protonix. She used to be on Reglan however she was taken off of it because it was causing tardive dyskinesia. General Initial Greet Date/Time 04/14/23 0204 Presentation Chief Complaint Abdominal pain Risk-Abd Pain F Under 40 )( Ectopic Risk factors reviewed Review of Systems ROS Statements All systems rev neg except as marked. Past Medical History - Adult Stated Complaint ABD PAIN Allergies Coded Allergies: haloperidol (Severe, HIVES 06/11/22) scopolamine (Severe, HIVES 06/11/22) Home Medications Active Scripts IBUPROFEN (MOTRIN) 600 MG PO QID PRN PRN PAIN IBUPROFEN (MOTRIN) 600 MG PO QID PRN PRN PAIN #30 TABS Prov: 02/10/21 guaiFENesin ER (MUCINEX) 1,200 MG PO Q12H guaiFENesin ER (MUCINEX) 1,200 MG PO Q12H #30 TABS Prov: 02/10/21 Reported Medications AMOXICILLIN/CLAV K (AUGMENTIN 875/125 MG) 1 TAB PO Q12H PANTOPRAZOLE DR (PROTONIX) 20 MG PO DAILY [ASHKAN] Additional Medical History IBS gastroparesis anxiety bipolar d/o Past Surgical History: Reports: Cholecystectomy (2015), Breast biopsy/procedure (2008). Additional Surgical History bilateral ureter reattachment 1997 LEEP 2017 Botox injection to pylorus Alcohol Use Alcohol use (occasional) Drug Use Marijuana Physical Exam Vital Signs Vital Signs First Documented: Result Date Time Pulse Ox 100 04/13 0208 B/P 165/107 / 0208 B/P Mean 126 / 0208 O2 Delivery Room air / 0208 Temp 97.3 / 0208 Pulse 83 / 0208 Resp 19 / 0208 Last Documented: Result Date Time Pulse Ox 100 / 0208 B/P 165/107 / 0208 B/P Mean 126 / 0208 O2 Delivery Room air / 0208 Temp 97.3 / 0208 Pulse 83 / 0208 Resp 19 / 0208 Review of Vital Signs Reviewed, Vital signs normal Focused PE General/Const General/Const Awake, Alert Resp/Chest Respiratory/Chest Atraumatic, Breath sounds NL Cardiovascular Cardiovascular Heart rate NL, Regular rhythm MS Back Back Atraumatic, Inspection NL Interpretation Diagnostics Lab Results Interpretation Results Laboratory Tests: 04/13 04/13 0244 0231 Toxicology POC Urine Opiates (Negative) Positive A POC Urine Methadone (Negative) Negative POC Urine Barbiturates (Negative) Negative POC U Tricyclic Antidpr (Negative) Negative POC Ur Amphetamines (Negative) Negative POC Ur Methamphetamine (Negative) Negative POC Ur Benzodiazepine (Negative) Negative POC Urine Cocaine (Negative) Negative POC Ur Marijuana (THC) (Negative) Positive A Urines POC Urine HCG, Qual (Negative) Negative 04/13 Chemistry POC Sodium (128 - 145 mmol/L) [...] (5.0 - 8.0) 7.0 POC Ur Specif [place] (1.001 - 1.035) 1.025 POC Urine Protein (Negative) Negative POC Ur Glucose (UA) (Negative) Negative POC Urine Ketones (Negative) >=160 A POC Urine Blood (Negative) Trace-intact A POC Urine Nitrite (Negative) Negative POC Urine Bilirubin (Negative) Negative POC Urine Urobilinogen (0.2 - 1.0 E.U/dL) 0.2 POC U Leukocyte Esteras (Negative) Negative 04/13 212 Chemistry POC Amylase (14 - 97 U/L) 118 H Recent Impressions: CAT SCAN - CT ABD PELVIS W/O CONT 04/13 226 Report Impression - Status: SIGNED Entered: 04/14/2023 0236 IMPRESSION: No acute findings. Specifically the stomach is not significantly distended. Impression By: [email or web address] - DIANE KILPATRICK MD Re-Evaluation MDM Free Text MDM Notes Free Text MDM Notes Vital signs reviewed History obtained from: Patient Previous records were reviewed Review of external records performed: None Chronic condition affecting care: None Differential diagnosis: Described below Review of other medical records: None Clinical lab test: Ordered and result reviewed independently by me. Unremarkable lab result. Imaging: reviewed Discussion with other provider: None Care affected by social situation, living, substance use, economic: Noncontributory Advised patient to follow-up with her primary care doctor within 24 to 48 hours. Advised return to the ER if getting worse. Patient understand and agree with the plan. All questions were answered. )( Re-Evaluation/Progress #1 )( Re-Eval Status Improved Re-Eval Abdomen Soft, Non-tender, No guarding Eval Following Treatment Pt. feels better, Condition improved ED Course Medication(s) Ordered Medication(s) Ordered: Central Nervous System Agents Sig/Ayanna Start time Last Medication Dose Route Stop Time Status Admin Morphine Sulfate 4 MG X1ED STA 03/05 0233 DC / IV 04/13 0234 0238 [...] STA 04/13 0208 DCr / IV 04/13 0209 0219 Differential Diagnosis )( Differential Diagnosis Acute abdominal pain, Appendicitis, Bowel obstruction, Constipation, Diverticular disease, Ectopic preg ruptured, Ectopic , Endometriosis, Gastritis, Gastroenteritis, GERD Patient Discharge Departure Vital Signs/Condition Vital Signs First Documented: Result Date Time Pulse Ox 100 / 0208 B/P 165/107 / 0208 B/P Mean 126 / 0208 O2 Delivery Room air / 0208 Temp 97.3 / 0208 Pulse 83 03/ 0208 Resp 19 04/13 0208 Last Documented: Result Date Time Pulse Ox 100 / 0208 B/P 165/107 03/ 0208 B/P Mean 126 03/05 0208 O2 Delivery Room air 03/ 0208 Temp 97.3 / 0208 Pulse 83 / 0208 Resp 19 04/13 0208 All vital signs available at the time of this entry have been reviewed. Clinical Impression Clinical Impression Primary Impression: Gastroparesis Secondary Impressions: Compression syndrome, nerve, Marijuana abuse, Mild dehydration Disposition Decision Discharge )( Discharged to Home Yes )( Time 0251 )( Date 04/14/23 Discharge/Care Plan Patient Instructions Abdominal Pain, ED Diabetic Gastroparesis, ED Marijuana Abuse Additional Instructions If you have persistent severe pain and intractable nausea vomiting I suggest you go to the hospital for possible admission. Discharge Note I have spoken with the patient and/or caregivers. I have explained the patient's condition, diagnoses and treatment plan based on the [...] of care and follow-up instructions have been explained in detail. The patient and/or caregivers have received these instructions in written format and have expressed an understanding of the discharge instructions. The patient and/or caregivers are aware that any significant change in condition or worsening of symptoms should prompt an immediate return to this or the closest emergency department or a call to 911. at 0504 RPT #:[id number] END OF REPORT [facility] 2023-02-24 11:47:47 Chief Complaint Patient presents with Follow-Up Visit 1 month follow up visit Miriam French LVN [facility] 2022-06-11 11:33:00 [facility] ([facility]) EMERGENCY PROVIDER REPORT REPORT#:[id number] REPORT STATUS: Signed DATE:06/11/22 TIME: 1133 PATIENT: BREANNA GLYNN UNIT #: [id number] ROOM/BED: AGE: 32 SEX: F PCP PHYS: Undefined Provider SERVICE AUTHOR: Ted Schultz MD * ALL edits or amendments must be made on the electronic/computer document * HPI-Nausea/Vomit/Diarrhea General Confirmed Patient Yes Initial Greet Date/Time 06/11/22 1110 Presentation Chief Complaint Nausea, Vomiting, Diarrhea Hx Obtained From Patient Onset Occurred Today Context Similar Sx Previous Yes Free Text HPI Notes Free Text HPI Notes Patient reports ever since having a cholecystectomy she [...] QID PRN PRN PAIN #30 TABS Prov: 02/10/21 guaiFENesin ER (MUCINEX) 1,200 MG PO Q12H guaiFENesin ER (MUCINEX) 1,200 MG PO Q12H #30 TABS Prov: 02/10/21 Reported Medications AMOXICILLIN/CLAV K (AUGMENTIN 875/125 MG) 1 TAB PO Q12H PANTOPRAZOLE DR (PROTONIX) 20 MG PO DAILY [ASHKAN] Calculated Suicide Risk (nurs) No risk Review of Nursing Notes Rev avail, and agree Additional Medical History IBS gastroparesis anxiety bipolar d/o Past Surgical History: Reports: Cholecystectomy (2015), Breast biopsy/procedure (2008). Additional Surgical History bilateral ureter reattachment 1997 LEEP 2018 Botox injection to pylorus Alcohol Use Alcohol use (occasional) Drug Use Marijuana Smoking status for patients 13 years old or older: Never Smoker Physical Exam Vital Signs Vital [...] icterus Resp/Chest Respiratory/Chest Breath sounds NL, Breath sounds = [...] % (Auto) (16 - 50 %) 22.9 [place] % (Auto) (0.0 - 13.0 %) 9.8 [...] (4.6 - 8.0) 7.0 Ur Specific [place] (1.001 - 1.035) 1.020 Urine Protein (NEGATIVE [...] After discussion patient states was at [facility] yesterday and was prescribed compazine/reglan after blood work and CT scan were unremarkable. Re-Evaluation/Progress #1 Time of Re-Eval 1157 Re-Eval Status Improved ED Course Medication(s) Ordered Medication(s) Ordered: Central Nervous System Agents Sig/Ayanna Start time Last Medication Dose Route Stop Time Status Admin Morphine Sulfate 4 MG X1ED STA 06/11 1129 DCr 06/11 IV 06/11 1130 1132 Electrolytic, Caloric, And Elvia Sig/Ayanna Start time Last Medication Dose Route Stop Time Status Admin Sodium Chloride 1,000 ML X1ED STA 03 1141 DC 05/03 IV 05/ 1240 1155 Sodium Chloride 1,000 ML X1ED STA 05/ 1118 DC 05/03 IV 05/03 1217 1123 Gastrointestinal Drugs Sig/Ayanna Start time Last Medication Dose Route Stop Time Status Admin Prochlorperazine 5 MG X1ED STA 05 1118 DC 05/03 Edisylate IV 05/ 1119 1124 Patient Discharge Departure Vital Signs/Condition Vital Signs First Documented: Result Date Time Pulse Ox 99 05 1113 B/P 156/96 05/ 1113 B/P Mean 116 05/ 1113 O2 Delivery Room air 06/11 1113 Pulse 70 05/ 1113 Resp 18 06/11 1113 Temp 36.3 / 1206 Last Documented: Result Date Time Pulse Ox 100 05/ 1206 B/P 124/78 05/ 1206 B/P Mean 93 05/ 1206 Temp 36.3 / 1206 Pulse 77 05/ 1206 Resp 16 / 1206 O2 Delivery Room air 06/11 1113 All vital signs available at the time of this entry have been reviewed. Clinical Impression Clinical Impression Primary Impression: Gastroenteritis Disposition Decision Discharge )( Discharged to Home Yes )( Time 1200 )( Date 06/11/22 Discharge/Care Plan Counseled Regarding Diagnosis, Lab results, Need for follow-up Patient Instructions ED FOOD POIS or G-ENTERITIS [id number] Additional Instructions Schedule a follow-up appointment with your Primary Care Provider Discharge Note I have spoken with the patient and/or caregivers. I have explained the patient's condition, diagnoses and treatment plan based on the [...] of care and follow-up instructions have been explained in detail. The patient and/or caregivers have received these instructions in written format and have expressed an understanding of the discharge instructions. The patient and/or caregivers are aware that any significant change in condition or worsening of symptoms should prompt an immediate return to this or the closest emergency department or a call to 911. at 1245 RPT #:[id number] END OF REPORT [facility] 2021-02-09 23:43:00 [facility] ([facility]) EMERGENCY PROVIDER REPORT REPORT#:[id number] REPORT STATUS: Signed DATE:02/09/21 TIME: 2342 PATIENT: BREANNA GLYNN UNIT #: [id number] ROOM/BED: AGE: 30 SEX: F PCP PHYS: No Primary or Family Physician SERVICE AUTHOR: Kaelyn Peguero MD * ALL edits or amendments must be made on the electronic/computer document * MBT-Mce-Gobo Illness General Confirmed Patient Yes Patient Type New patient Initial Greet Date/Time 02/09/21 2312 Presentation Chief Complaint Body aches, Chills, Cough Free Text HPI Notes Free Text HPI Notes 30-year-old female comes emergency room complaining of cough, body aches, chills [...] nausea and vomiting. Review of Systems ROS Statements All systems rev neg except as marked. Focused Review of Systems Constitutional Reports: Chills. Denies: Fever, Lethargy. Eyes Denies: Eye pain bilat, Redness bilat, Visual loss bilat. Ears/Nose/Throat Denies: Earache bilat, Nasal congestion, Sore throat. Respiratory Reports: Cough, non-productive, Shortness of breath. Denies: Cough, productive. Cardiovascular Denies: Chest pain, Syncope. GI Denies: Abdominal pain, Diarrhea, Nausea, Vomiting. Musculoskeletal Denies: Back pain, Extremity pain. Hematologic Denies: Bleeding, Bruising. Skin Denies: Diaphoresis, Rash. Neurologic Denies: Change LOC, Dizziness, Focal weakness, Headache, Numbness, [...] Past Surgical History: Reports: Cholecystectomy (2015), Breast biopsy/procedure (2008). Additional Surgical History bilateral ureter reattachment 1997 [facility] 2018 Botox injection to pylorus Alcohol Use Alcohol use (occasional) Drug Use Marijuana Smoking status: Smoking status for patients 13 years old or older: Never Smoker Physical Exam Vital Signs Vital [...] Conjunctiva NL Ears/Nose/Throat Ears/Nose/Throat Airway patent, Mucous membranes moist, Pharynx NL, Tympanic membs NL, Ext aud canal NL, Nose exam NL, No sinus tenderness MS Neck Neck Supple, No meningismus, Full range of motion, No adenopathy, No swelling , Non-tender, No masses Resp/Chest Respiratory/Chest Breath sounds NL, Breath sounds = bilat, No respiratory distress, No rales, No rhonchi, No wheezing, No retractions Cardiovascular Cardiovascular Heart rate NL, Regular rhythm, Heart sounds NL, No murmurs, Peripheral circulation NL Abdomen/GI Abdomen/GI Soft, Non-tender, No guarding, No rebound Lymphatic Lymphatic No gross adenopathy Skin Skin Color NL, No rash, Warm, Dry, Turgor NL Neurologic Neurologic Oriented X3, Speech NL, No motor deficits, No sensory deficits Re-Evaluation MDM ED Course [...] Result Date Time Pulse Ox 100 02/09 2311 B/P 110/74 02/09 2311 B/P Mean 86 02/09 231 O2 Delivery Room air 02/09 2310 Temp 37.4 02/09 2311 Pulse 78 02/09 231 Resp 18 02/09 2311 Last Documented: Result Date Time Pulse Ox 100 02/09 2311 B/P 110/74 02/09 2311 B/P Mean 86 02/09 231 O2 Delivery Room air 02/09 231 Temp 37.4 02/09 2311 Pulse 78 02/09 231 Resp 18 02/09 231 All vital signs available at the time of this entry have been reviewed. Condition Stable Clinical Impression Clinical Impression Primary Impression: Flu syndrome Disposition Decision Discharge )( Discharged to Home Yes )( Time 0008 )( Date 02/10/21 Discharge/Care Plan Counseled Regarding Diagnosis, Lab results, Need for follow-up, When to return to ED (Auto) Prescriptions Current Visit Scripts IBUPROFEN (MOTRIN) 600 MG PO QID PRN PRN PAIN IBUPROFEN (MOTRIN) 600 MG PO QID PRN PRN PAIN #30 TABS guaiFENesin ER (MUCINEX) 1,200 MG PO Q12H guaiFENesin ER (MUCINEX) 1,200 MG PO Q12H #30 TABS Patient Instructions Cold and Flu Season Boost Your ... Additional Instructions Follow-up with primary care provider within 24 hours Return to the emergency room for any acute change, new symptoms or worsening symptoms. at 0652 RPT #:[id number] END OF REPORT [facility] 2020-06-24 15:35:00 [facility] ([facility]) EMERGENCY PROVIDER REPORT REPORT#:[id number] REPORT STATUS: Signed DATE:06/24/20 TIME: 1534 PATIENT: BREANNA GLYNN UNIT #: [id number] ROOM/BED: AGE: 30 SEX: F PCP PHYS: No Primary or Family Physician SERVICE AUTHOR: Maicol Coy MD * ALL edits or amendments must be made on the electronic/computer document * HPI-Abd Pain F Under 40 General Initial Greet Date/Time 06/24/20 [address] Winn in [place], [place] Presentation Chief Complaint Abdominal pain, Nausea, Vomiting moderate Hx Obtained From Patient Sudden in Onset? No Onset Occurred Yesterday Symptom Duration Waxes and wanes Progression since Onset Gradually worsening Context of Onset h/o gastroparesis vs cannabis induced Caused by No trauma by history Location [...] N/V x 6. She is visiting from [place]. Risk-Abd Pain F Under 40 )( Ectopic Risk factors reviewed, History of Infertility Coronary Artery Disease Risk factors reviewed, Smoking Thoracic Aortic Dissection Risk factors reviewed, No risk [...] Past Surgical History: Reports: Cholecystectomy (2015), Breast biopsy/procedure (2008). Additional Surgical History bilateral ureter reattachment [...] movement NL, PSYCH: NL thought content Focused PE General/Const General/Const Awake, Alert, No acute distress, Well appearing, Well developed , Well hydrated, Well nourished, Cooperative, Not toxic appearing Resp/Chest Respiratory/Chest Atraumatic, Breath sounds NL, Breath sounds = bilat, No respiratory distress, No rales, No rhonchi, No wheezing, No retractions, No stridor, No chest tenderness, No chest wall deformity, No crepitus Cardiovascular Cardiovascular Heart rate NL, Regular rhythm, Heart sounds NL, No gallop, No murmurs, No rubs, Cap refill not delayed, Peripheral circulation NL, Pulses = bilaterally, No gross BP differential Abdomen/GI Abdomen/GI Atraumatic, Soft, McBurney's non-tender, No guarding, [...] % (Auto) (16 - 50 %) 48.2 [place] % (Auto) (0.0 - 13.0 %) 13.0 [...] (4.6 - 8.0) 7.0 Ur Specific [place] (1.001 - 1.035) 1.020 Urine Protein (NEGATIVE [...] Statement Laboratory studies reviewed and considered in the medical decision-making. Re-Evaluation MDM )( Re-Evaluation/Progress #1 Text/Dict Note Pt states her episode is resolved and is happy in room with her . Her HR is 80's, so she d/n have 2 SIRS criteria. Time of Re-Eval 1648 )( Re-Eval Status Improved, Resolved Abd Pain MDM Note F < 40 The patient is resting comfortably and feels better, [...] indicated in the discharge instructions. TAD MDM Note There is no historical, physical exam, laboratory or imaging data that would suggest a need to consider or further evaluate the patient for thoracic aortic dissection at this time. I am no longer considering thoracic aortic dissection in the differential diagnosis. The timing of the onset of pain and the pain radiation pattern are not consistent with dissection. There has been no movement of pain from the chest to the back or to the abdomen, which would be consistent with a dissection process. The analysis of risks that would predispose to dissection does not indicate a need to further pursue the diagnosis. The patient 's vital signs have been stable, there is [...] )( Discharged to Home Yes )( Time 165 )( Date 06/24/20 Discharge/Care Plan Counseled Regarding Diagnosis, Lab results, Need for follow-up, When to return to ED, Smoking cessation (MJ) Patient Instructions ED How to Quit Smoking, ED Vomiting (Adult) Referrals Brayan Winn MD Discharge Note I have spoken with the patient and/or caregivers. I have explained the patient's condition, diagnoses and treatment plan based on the [...] of care and follow-up instructions have been explained [...] BP f/u < 4wk, F/u with PCP/other doc Preg Test for Women w/Abd Pain Female age 14-50, Complaint of abdominal pn, Any preg test ordered Smoking Cessation Screened, tobacco user, Tobacco cess intervention Tobacco Screening/Cessation 18 years or older, Tobacco user Smoking Cessation Counseling The patient was questioned regarding their smoking habits, and I have determined , as the patient's treating physician, that there [...] and the plan for smoking cessation. at 2053 RPT #:[id number] END OF REPORT [facility] 2020-05-19 12:11:00 [facility] ([facility]) EMERGENCY PROVIDER REPORT REPORT#:[id number] REPORT STATUS: Signed DATE:05/19/20 TIME: 1211 PATIENT: BREANNA QUEEN UNIT #: [id number] ROOM/BED: AGE: 30 SEX: F PCP PHYS: [...] [facility] and that she has GI specialist in [place] whose name is Dr. Hendrix. She tells me she used to get Botox injections in her pilorus to treat her pain. She tells me she went to a local hospital yesterday and got several medications for pain but the pain did not get any better. General Confirmed Patient Yes Initial Greet Date/Time 05/19/20 1129 PCP In [facility] Presentation Chief Complaint Abdominal pain Hx Obtained [...] reviewed Coronary Artery Disease Risk factors reviewed, No risk factors Thoracic Aortic Dissection Risk factors reviewed, No risk factors Review of Systems ROS Statements All systems rev neg except as marked. Focused Review of Systems Constitutional Denies: Chills, Fatigue, Fever, Lethargy, Malaise, Recent wt loss, Weakness - generalized. Respiratory Denies: Cough, non-productive, Cough, productive, Dyspnea on exertion, Hemoptysis, Parox nocturnal dyspnea, Pleuritic pain, Shortness of breath, Wheezing. Cardiovascular Denies: Chest pain, Dyspnea on exertion, Edema, Orthopnea, Palpitations, Parox nocturnal dyspnea, Syncope. GI Reports: Abdominal pain. Denies: Diarrhea, Nausea, Vomiting. Female Denies: Dysuria, Flank pain, Hematuria. [...] Documented: Result Date Time Pulse Ox 98 / 1128 B/P 158/101 04/ 1128 B/P Mean 120 05/19 1128 Temp 36.9 / 1128 Pulse 84 05/19 1128 Resp 18 05/19 1128 Last Documented: Result Date Time Pulse Ox 98 04/ 1128 B/P 158/101 04/ 1128 B/P Mean 120 / 1128 Temp 36.9 / 1128 Pulse 84 / 1128 Resp 18 05/19 1128 Review of Vital Signs Reviewed Focused PE General/Const General/Const Awake, Alert, No acute distress, Well appearing, Well developed MS Head Head Atraumatic, Normocephalic Eyes Eyes Atraumatic, PERRL, EOMI Ears/Nose/Throat Ears/Nose/Throat Atraumatic, Airway patent, Mucous membranes moist Resp/Chest Respiratory/Chest Atraumatic, Breath sounds NL, Breath sounds = bilat, No respiratory distress Cardiovascular Cardiovascular Heart rate NL, Regular rhythm, Heart sounds NL Abdomen/GI Abdomen/GI Atraumatic, Soft, Non-tender, McBurney's non-tender, No guarding, No rebound, BS normoactive MS Back Back Atraumatic, Inspection NL, Full range of motion Skin Skin Atraumatic, Color NL, No rash [...] (4.6 - 8.0) 6.0 Ur Specific [place] (1.001 - 1.035) >= 1.030 Urine Protein [...] (Auto) (16 - 50 %) 9.5 L [place] % (Auto) (0.0 - 13.0 %) 4.3 [...] Recent Impressions: RADIOLOGY - XR ABDOMEN 2V 04/10 1212 Report Impression - Status: SIGNED Entered: 05/19/2020 1219 IMPRESSION: No acute process. Location: V20 Impression By: Emily CABALLERO M.D. Imaging Statement Radiographic studies reviewed and considered in the medical decision-making. Lab Imaging Statement Laboratory radiographic studies reviewed and considered in the medical decision-making. Re-Evaluation MDM )( Re-Evaluation/Progress #1 Time of Re-Eval 8 )( Re-Eval Status Improved Plan Post Re-Eval [...] 1128 Pulse 84 04/10 1128 Resp 18 10 1128 Last Documented: Result Date Time Pulse Ox 98 04/10 1128 B/P 158/101 04/10 1128 B/P Mean 120 04/10 1128 Temp 36.9 04/10 1128 Pulse 84 04/10 1128 Resp 18 10 1128 All vital signs available at the time of this entry have been reviewed. Condition Stable, Improved Clinical Impression Clinical Impression Primary Impression: Chronic generalized abdominal pain Disposition Decision Discharge )( Discharged to Home Yes )( Time 1259 )( Date 05/19/20 Discharge/Care Plan Counseled Regarding Diagnosis, Lab results, Imaging studies, Prescriptions, Need for [...] Discharge Note I have spoken with the patient and/or caregivers. I have explained the patient's condition, diagnoses and treatment plan based on the [...] of care and follow-up instructions have been explained [...] F/u with PCP/other doc at 1708 RPT #:[id number] END OF REPORT [facility] 2019-07-30 21:12:00 [facility] ([facility]) EMERGENCY PROVIDER REPORT REPORT#:[id number] REPORT STATUS: Signed DATE:07/30/19 TIME: 2111 PATIENT: BREANNA GLYNN UNIT #: [id number] ROOM/BED: AGE: 29 SEX: F PCP PHYS: No Primary or Family Physician SERVICE AUTHOR: Soha Rojas * ALL edits [...] Respiratory Denies: Dyspnea on exertion, Shortness of breath. Cardiovascular Denies: Dyspnea on exertion. GI Reports: [...] 13 years old or older: Never Smoker Ambulatory Status Independent Physical Exam [...] movement NL, PSYCH: NL thought content Focused PE General/Const General/Const Awake, Alert, Well appearing, Well developed, Well nourished, Cooperative, Not toxic appearing Appearance/Presentation Appears older than age. MS Head Head Normocephalic Eyes Eyes PERRL, No nystagmus Ears/Nose/Throat Ears/Nose/Throat Airway patent, Mucous membranes moist, Pharynx NL Resp/Chest Respiratory/Chest Breath sounds NL, No respiratory distress Cardiovascular Cardiovascular Regular rhythm, Heart sounds NL Abdomen/GI Abdomen/GI Soft Tenderness/Guarding/Rebound Tender epigastric. MS Back Back Inspection NL, Full range of motion Skin Skin Color NL, No rash, Warm, Dry, Intact, Turgor NL, No swelling Neurologic Neurologic Oriented X3, [...] (Auto) (16.0 - 50.0 %) 15.3 L [place] % (Auto) (0.0 - 13.0 %) 5.2 [...] (4.6 - 8.0) 6.0 Ur Specific [place] (1.001 - 1.035) 1.017 Urine Protein (NEGATIVE [...] Soft Eval Following Treatment Pt. feels better, Condition improved Pain Re-Evaluation Pain improved Plan Post Re-Eval Plan discharge Abd Pain MDM Note F < 40 The patient is resting comfortably and feels better, [...] indicated in the discharge instructions. Tissue Perfusion Reassessment [...] 07/29 IV 07/29 Patient Discharge Departure Vital Signs/Condition [...] entry have been reviewed. Condition Stable Clinical Impression Clinical Impression Primary Impression: Gastritis Time of Impression 2304 Disposition Decision Discharge )( Discharged to Home Yes )( Time 2304 )( Date 07/30/19 Discharge/Care Plan Counseled Regarding Diagnosis, Lab results, Prescriptions, Need for follow-up, When to return to ED Prescriptions PEDIALYTE, FAMOTIDINE, ZOFRAN, MAALOX Prescriptions Reviewed Risks, Benefits, Alternative treatment Referrals No Primary or Family Physician (PCP) Discharge Note I have spoken with the patient and/or caregivers. I have explained the patient's condition, diagnoses and treatment plan based on the [...] of care and follow-up instructions have been explained [...] a call to 911. at 0000 RPT #:[id number] END OF REPORT [facility] 2019-07-30 21:12:00 [facility] ([facility]) EMERGENCY PROVIDER REPORT REPORT#:[id number] REPORT STATUS: Signed DATE:07/30/19 TIME: 2111 PATIENT: BREANNA GLYNN UNIT #: [id number] ROOM/BED: AGE: 29 SEX: F PCP PHYS: No Primary or Family Physician SERVICE AUTHOR: Soha Rojas * ALL edits [...] Respiratory Denies: Dyspnea on exertion, Shortness of breath. Cardiovascular Denies: Dyspnea on exertion. GI Reports: [...] 13 years old or older: Never Smoker Ambulatory Status Independent Physical Exam [...] movement NL, PSYCH: NL thought content Focused PE General/Const General/Const Awake, Alert, Well appearing, Well developed, Well nourished, Cooperative, Not toxic appearing Appearance/Presentation Appears older than age. MS Head Head Normocephalic Eyes Eyes PERRL, No nystagmus Ears/Nose/Throat Ears/Nose/Throat Airway patent, Mucous membranes moist, Pharynx NL Resp/Chest Respiratory/Chest Breath sounds NL, No respiratory distress Cardiovascular Cardiovascular Regular rhythm, Heart sounds NL Abdomen/GI Abdomen/GI Soft Tenderness/Guarding/Rebound Tender epigastric. MS Back Back Inspection NL, Full range of motion Skin Skin Color NL, No rash, Warm, Dry, Intact, Turgor NL, No swelling Neurologic Neurologic Oriented X3, [...] (Auto) (16.0 - 50.0 %) 15.3 L [place] % (Auto) (0.0 - 13.0 %) 5.2 [...] (4.6 - 8.0) 6.0 Ur Specific [place] (1.001 - 1.035) 1.017 Urine Protein (NEGATIVE [...] Soft Eval Following Treatment Pt. feels better, Condition improved Pain Re-Evaluation Pain improved Plan Post Re-Eval Plan discharge Abd Pain MDM Note F < 40 The patient is resting comfortably and feels better, [...] indicated in the discharge instructions. Tissue Perfusion Reassessment [...] 07/29 2332 DC 07/29 Tromethamine IV 07/29 Promethazine HCl 25 MG X1ED STA 07/29 [...] 07/29 IV 07/29 Patient Discharge Departure Vital Signs/Condition Vital Signs First Documented: Result Date Time Pulse Ox 98 07/29 2114 B/P 116/76 07/29 2114 B/P Mean 89 07/29 2114 O2 Delivery Room air 07/29 2114 Temp 36.2 07/29 2114 Pulse 78 07/29 2114 Resp 18 07/29 2114 Last Documented: Result Date Time Pulse Ox 100 07/29 2253 B/P 118/80 07/29 2252 B/P Mean 92 07/29 2252 Pulse 86 07/29 2252 Resp 16 07/29 2252 O2 Delivery Room air 07/29 2114 Temp 36.2 07/29 2114 All vital signs available at the time of this entry have been reviewed. Condition Stable Clinical Impression Clinical Impression Primary Impression: Gastritis Time of Impression 2304 Disposition Decision Discharge )( Discharged to Home Yes )( Time 2304 )( Date 07/30/19 Discharge/Care Plan Counseled Regarding Diagnosis, Lab results, Prescriptions, Need for follow-up, When to return to ED Prescriptions PEDIALYTE, FAMOTIDINE, ZOFRAN, MAALOX Prescriptions Reviewed Risks, Benefits, Alternative treatment Referrals No Primary or Family Physician (PCP) Discharge Note I have spoken with the patient and/or caregivers. I have explained the patient's condition, diagnoses and treatment plan based on the [...] of care and follow-up instructions have been explained [...] a call to 911. at 0000 at 0024 RPT #:[id number] END OF REPORT [facility]
[2023-09-12] MEDS ORDERED: ONDANSETRON 4 MG/2 ML VIAL ONE (12:53)
[2023-09-12] MEDS ORDERED: FAMOTIDINE 20 MG/2 ML VIAL IV ONE (12:53)
[2023-09-12] MEDS ORDERED: NA CHLORIDE 0.9% 1,000 ML ONE (12:54)
[2023-09-12 13:11] LABS: Absolute Lymphocytes (CBC) 0.8 K/uL (0.7-4.9); Absolute Monocytes 0.4 K/uL (0.1-1.3); Basophils % 0.6 % (0-1.3); Eosinophils % 0.2 % (0-4.4); Hemoglobin 13.4 g/dL (12.0-15.0); Lymphocytes % 12.3 % (15.3-44.8); MCH 26.7 pg (27.0-35.0); MCHC 31.8 g/dL (32.0-36.0); MPV 10.4 fL (7.6-11.3); Monocytes % 6.8 % (3.3-12.3); Neutrophils % 80.1 % (41.7-73.7); Platelets 272 thou/uL (152-406); Red Cell Distribution Width 16.7 % (12.1-15.2)
[2023-09-12 13:38] LABS: SARS-CoV-2 Antigen CONTROL BLUE LINE VIS/BG OK; SARS-CoV-2 Antigen Rapid Res Negative (Negative)
[2023-09-12 13:55] LABS: Albumin 3.9 g/dL (3.4-5.0); Albumin/Globulin Ratio 1.1 (1.1-1.8); Anion Gap 10.4 mEq/L (5.0-15.0); Bilirubin Total 0.4 mg/dL (0.2-1.0); Globulin 3.5 g/dL (2.3-3.5); Potassium 3.4 mEq/L (3.5-5.1); Protein, Total 7.4 g/dL (6.4-8.2)
[2023-09-12] MEDS ORDERED: KETOROLAC 30 MG/ML INJ ONE (14:18)
[2023-09-12] MEDS ORDERED: METOCLOPRAMIDE 10 MG/2mL INJ ONE (14:19)
[2023-09-12] MEDS ORDERED: NA CHLORIDE 0.9% 50 ML ONE (14:19)
--- NOTE | 2023-09-12 15:58 | RAD REPORT ---
EXAM DESCRIPTION: CTAbdomen Pelvis W Contrast - 09/12/2023 3:43 pm CLINICAL HISTORY: Abdominal pain. ABD PAIN COMPARISON: <Comparisons> TECHNIQUE: Biphasic CT imaging of the abdomen and pelvis was performed with 100 ml non-ionic IV cont rast. All CT scans are performed using dose optimization technique as appropriate and may include automated exposure control or mA/KV adjustment according to patient size. FINDINGS: The lung bases are clear.Cholecystectomy. The liver, spleen, pancreas, adrenal glands and kidneys are within normal limits. No bowel obstruction, free air, free fluid or abscess. The appendix is not identified as a discrete structure, however, no secondary findings of appendicitis are identified. No evidence of significan t lymphadenopathy. No suspicious bony findings. IMPRESSION: No acute intra-abdominal or pelvic finding.
--- NOTE | 2023-09-12 16:11 | EDPHYS ---
Physician Documentation [facility] Name: Efrem Pastor Age: 33 yrs Sex: Female : 1990 Arrival Date: 09/12/2023 Time: 12:32 Bed 4 Private MD: ED Physician Brayan Terrell HPI: 09/11 12:43 This 33 yrs old Female presents to ER via Ambulatory with complaints of Vomiting, jh7 Abdominal Pain. 12:43 33-year-old female with a past medical history of gastroparesis presents to the ER with jh7 abdominal pain and nausea vomiting with diarrhea since 8:30 AM. Patient denies fever but does report cough and runny nose. She reports that she has vomited 30+ times since this morning.. Historical: - Allergies: 12:44 Haldol; aa5 12:44 Scopolamine HBr; aa5 - PMHx: 12:44 Acute cutaneous nerve entrapment syndrome; ACNE (Unknown); Anxiety; Gastroparesis; aa5 Irritable bowel syndrome; neuropathy; PTSD; - PSHx: 12:44 bilateral ureter attachment; Cholecystectomy; leep procedure; Lumpectomy of breast; aa5 right breast; - Immunization history:: Client reports receiving the 2nd dose of the Covid vaccine. - Infectious Disease History:: Denies. - Social history:: Smoking status: Reported history of juuling and/or vaping. ROS: 12:43 Constitutional: Per HPI jh7 Exam: 12:43 Constitutional: This is a well developed, well nourished patient who is awake, alert, jh7 and in no acute distress. Head/Face: Normocephalic, atraumatic. Neck: Trachea midline, no thyromegaly or masses palpated, and no cervical lymphadenopathy. Supple, full range of motion without nuchal rigidity, or vertebral point tenderness. No Meningismus. Cardiovascular: Regular rate and rhythm with a normal S1 and S2. No gallops, murmurs, or rubs. Normal PMI, no JVD. No pulse deficits. Respiratory: Lungs have equal breath sounds bilaterally, clear to auscultation and percussion. No rales, rhonchi or wheezes noted. No increased work of breathing, no retractions or nasal flaring. Back: No spinal tenderness. No costovertebral tenderness. Full range of motion. Skin: Warm, dry with normal turgor. Normal color with no rashes, no lesions, and no evidence of cellulitis. MS/ Extremity: Pulses equal, no cyanosis. Neurovascular intact. Full, normal range of motion. Neuro: Awake and alert, GCS 15, oriented to person, place, time, and situation. Motor strength 5/5 in all extremities. Sensory grossly intact. Normal gait. 12:43 Abdomen/GI: Inspection: abdomen appears normal, Bowel sounds: normal, Palpation: soft, mild abdominal tenderness, in the epigastric area, Vital Signs: 12:40 BP 130 / 78; Pulse 87; Resp 16; Pulse Ox 98% ; db 12:43 Weight 63.5 kg; Height 5 ft. 2 in. ; Pain 10/10; aa5 12:50 BP 130 / 78; Pulse 83; Resp 18; Temp 98(A); Pulse Ox 96% on R/A; nj1 13:30 BP 159 / 107; Pulse 87; Resp 18; Pulse Ox 97% on R/A; db 14:16 BP 163 / 107; Pulse 74; Resp 16; Pulse Ox 98% on R/A; db 16:15 BP 163 / 107; Pulse 74; Resp 16; Temp 98; Pulse Ox 97% ; db 12:43 Body Mass Index 25.61 (63.50 kg, 157.48 cm) aa5 12:43 Pain Scale: Adult aa5 MDM: 12:35 Patient medically screened. jh7 14:13 ED course: Reevaluated the patient who still complains of severe abdominal pain and jh7 nausea/vomiting. Last CT was done 07/22/2023 and showed no acute findings. Patient states that this abdominal pain is more severe than it has been in the past and feels different. Discussed with the patient that she has had multiple CT scans of the abdomen, but due to significant change in pain from her normal flareups, will complete a CT abdomen pelvis with contrast.. 16:12 Differential diagnosis: gastritis, cholecystitis, pancreatitis, viral gastroenteritis, jh7 Gastroparesis, PUD, cyclic vomiting syndrome, COVID, influenza. Data reviewed: vital signs, nurses notes, lab test result(s), radiologic studies, CT scan. I considered the following discharge prescriptions or medication management in the emergency department Medications were administered in the Emergency Department. See MAR. Counseling: I had a detailed discussion with the patient and/or guardian regarding the historical points, exam findings, and any diagnostic results supporting the discharge/admit diagnosis, to return to the emergency department if symptoms worsen or persist or if there are any questions or concerns that arise at home. Response to treatment: the patient's symptoms have mildly improved after treatment. 09/11 12:46 Order name: CBC with Diff; Complete Time: 13:39 [facility] 09/11 12:46 Order name: CMP; Complete Time: 14:07 [facility] 09/11 12:46 Order name: Lipase; Complete Time: 14:07 [facility] 09/11 12:46 Order name: Flu; Complete Time: 13:39 [facility] 09/11 12:46 Order name: SARS RAPID; Complete Time: 13:39 [facility] 09/11 14:32 Order name: Test, Serum; Complete Time: 15:37 [facility] 09/11 14:13 Order name: CT Abd/Pelvis - IV Contrast Only; Complete Time: 16:10 [facility] 09/11 12:46 Order name: IV Saline Lock; Complete Time: 13:26 [facility] 09/11 12:46 Order name: Labs collected and sent; Complete Time: 13:07 [facility] 09/11 13:18 Order name: Labs - recollect needed: hemolyzed chemisstries; Complete Time: 14:07 eb Administered Medications: 13:08 Drug: NS 0.9% IV 1000 ml IV at 1 bolus Per protocol; 1000 mL bolus Route: IV; Rate: 1 db bolus; Site: right hand; 16:15 Follow up: Response: No adverse reaction; IV Status: Completed infusion; IV Intake: db 1000ml 13:08 Drug: Famotidine IVP 20 mg IVP once; dilute with 10 mL 0.9% NaCl; give over 2 minutes db Route: IVP; Site: right hand; 14:07 Follow up: Response: No adverse reaction kc6 13:10 Drug: Ondansetron IVP 4 mg IVP once; over 2 minutes Route: IVP; Site: right hand; db 14:07 Follow up: Response: No adverse reaction; Nausea unchanged; Vomiting unchanged kc6 14:30 Drug: metoCLOPramide IVP 10 mg IVP once; over 1 to 2 minutes Route: IVP; Site: right db hand; 16:15 Follow up: Response: No adverse reaction db 14:30 Drug: Ketorolac IVP 30 mg IVP once Route: IVP; Site: right hand; db 16:15 Follow up: Response: No adverse reaction db Disposition: 17:20 Co-signature as Attending Physician, Brayan Terrell MD I reviewed the patient's care rt provided by the Advanced Practice Provider and agree with the diagnosis and treatment plan. Disposition Summary: 09/12/23 16:11 Discharge Ordered Notes: Location: Home [facility] Problem: chronic [facility] Symptoms: are unchanged [facility] Condition: Stable [facility] Diagnosis - Gastroparesis [facility] - Cyclical vomiting, not intractable [facility] Followup: [facility] - With: Private Physician - When: 2 - 3 days - Reason: Recheck today's complaints Discharge Instructions: - Discharge Summary Sheet [facility] - Gastroparesis [facility] - Cyclic Vomiting Syndrome, Adult [facility] Forms: - Medication Reconciliation Form [facility] - Patient Portal Instructions [facility] - Leadership Thank You Letter [facility] Prescriptions: - Reglan 10 mg Oral Tablet - take 1 tablet ORAL route every 6 hours take 30 minutes before meals and at [facility] bedtime; 20 tablet; Refills: 0, Product Selection Permitted Signatures: Dispatcher [employer] EDMS Luz Maria Ramírez, RN RN aa5 Blanca Curtis Jennifer, ANESTHESIOLOGIST ANESTHESIOLOGIST 7 Christine Oakley RN RN Brayan Dailey MD MD rt Shereen Lopez RN [email or web address] Corrections: (The following items were deleted from the chart) 12:46 12:46 CBC+H.LAB.BRZ ordered. EDMS EDMS 12:46 12:46 COMPREHENSIVE METABOLIC PANEL+C.LAB.BRZ ordered. EDMS EDMS 12:46 12:46 LIPASE+C.LAB.BRZ ordered. EDMS EDMS 12:46 12:46 Test, Urine+UC.LAB.BRZ ordered. EDMS EDMS 12:46 12:46 Urinalysis+U.LAB.BRZ ordered. EDMS EDMS 12:46 12:46 Influenza Screen (A \T\ B)+BA.LAB.BRZ ordered. EDMS EDMS 12:46 12:46 SARS-COV-2 Antigen Rapid+I.LAB.BRZ ordered. EDMS EDMS
--- NOTE | 2023-09-12 16:11 | ER ---
Nurse's Notes [facility] Name: Efrem Pastor Age: 33 yrs Sex: Female : 1990 Arrival Date: 09/12/2023 Time: 12:32 Bed 4 Private MD: Diagnosis: Gastroparesis;Cyclical vomiting, not intractable Presentation: 09/11 12:43 Chief complaint: Patient states: Woke up vomiting, at least 30 times as well as aa5 diarrhea. Abdominal pain. Coronavirus screen: Vaccine status: Patient reports receiving the 2nd dose of the covid vaccine. Ebola Screen: Patient denies travel to an Ebola-affected area in the 21 days before illness onset. Risk Assessment: Do you want to hurt yourself or someone else? Patient reports no desire to harm self or others. Onset of symptoms was September 12, 2023. 12:43 Method Of Arrival: Ambulatory aa5 12:43 Acuity: BELINDA 3 aa5 12:50 Initial Sepsis Screen: Does the patient meet any 2 criteria? No. Patient's initial nj1 sepsis screen is negative. Does the patient have a suspected source of infection? No. Patient's initial sepsis screen is negative. Historical: - Allergies: 12:44 Haldol; aa5 12:44 Scopolamine HBr; aa5 - PMHx: 12:44 Acute cutaneous nerve entrapment syndrome; ACNE (Unknown); Anxiety; Gastroparesis; aa5 Irritable bowel syndrome; neuropathy; PTSD; - PSHx: 12:44 bilateral ureter attachment; Cholecystectomy; leep procedure; Lumpectomy of breast; aa5 right breast; - Immunization history:: Client reports receiving the 2nd dose of the Covid vaccine. - Infectious Disease History:: Denies. - Social history:: Smoking status: Reported history of juuling and/or vaping. Screenin:28 [facility] ED Fall Risk Assessment (Adult) History of falling in the last 3 months, db including since admission No falls in past 3 months (0 pts) Confusion or Disorientation No (0 pts) Intoxicated or Sedated No (0 pts) Impaired Gait No (0 pts) Mobility Assist Device Used No (0 pt) Altered Elimination No (0 pt) Score/Fall Risk Level 0 - 2 = Low Risk Oriented to surroundings, Maintained a safe environment. Abuse screen: Denies threats or abuse. Denies injuries from another. Nutritional screening: No deficits noted. Tuberculosis screening: No symptoms or risk factors identified. Assessment: 13:00 GI: Pt is actively vomiting Reports nausea, vomiting. db 13:27 Reassessment: Patient appears in no apparent distress at this time. Patient and/or db family updated on plan of care and expected duration. Pain level reassessed. Patient is alert, oriented x 3, equal unlabored respirations, skin warm/dry/pink. General: Appears in no apparent distress. uncomfortable, Behavior is calm, cooperative. Pain: Complains of pain in abdomen and epigastric area. Neuro: Level of Consciousness is awake, alert, obeys commands, Oriented to person, place, time, situation. 14:30 Reassessment: Patient appears in no apparent distress at this time. Patient and/or db family updated on plan of care and expected duration. Pain level reassessed. Patient is alert, oriented x 3, equal unlabored respirations, skin warm/dry/pink. PATIENT STATES IS UNABLE TO URINATE IN CUP. NOTIFIED PROVIDER. 16:15 Reassessment: Patient appears in no apparent distress at this time. Patient and/or db family updated on plan of care and expected duration. Pain level reassessed. Patient is alert, oriented x 3, equal unlabored respirations, skin warm/dry/pink. Patient states feeling better. Patient states symptoms have improved. Vital Signs: 12:40 BP 130 / 78; Pulse 87; Resp 16; Pulse Ox 98% ; db 12:43 Weight 63.5 kg; Height 5 ft. 2 in. ; Pain 10/10; aa5 12:50 BP 130 / 78; Pulse 83; Resp 18; Temp 98(A); Pulse Ox 96% on R/A; nj1 13:30 BP 159 / 107; Pulse 87; Resp 18; Pulse Ox 97% on R/A; db 14:16 BP 163 / 107; Pulse 74; Resp 16; Pulse Ox 98% on R/A; db 16:15 BP 163 / 107; Pulse 74; Resp 16; Temp 98; Pulse Ox 97% ; db 12:43 Body Mass Index 25.61 (63.50 kg, 157.48 cm) aa5 12:43 Pain Scale: Adult aa5 ED Course: 12:34 Patient arrived in ED. ra3 12:35 Tisha Hunter FNP is PHCP. jh7 12:35 Brayan Terrell MD is Attending Physician. jh7 12:44 Triage completed. aa5 12:45 Arm band placed on left wrist. aa5 13:02 Initial lab(s) drawn, by me, sent to lab. Missed attempt(s): 20 gauge in right wrist. db Bleeding controlled, band aid applied, catheter tip intact. 13:10 Inserted saline lock: 22 gauge in right hand, using aseptic technique. Blood collected. db Flushed with 10 mL NS. 13:20 Lab(s) recollected, by me, sent to lab. db 13:28 Patient has correct armband on for positive identification. Bed in low position. Call db light in reach. Side rails up X 1. Warm blanket given. Pillow given. 14:07 Missed attempt(s): 24 gauge in left hand. kc6 14:19 Radiology exam delayed due to test not completed at this time. mw3 14:36 Christine Oakley, RN is Primary Nurse. db 14:44 Inserted saline lock: 20 gauge in right forearm, using aseptic technique. Blood nj1 collected. Flushed with 10 mL NS Ultrasound guided. Catheter tip well visualized within vasculature during placement. 15:45 CT Abd/Pelvis - IV Contrast Only In Process Unspecified. EDMS 15:[address]. db 16:26 Provided Education on: DISCHARGE AND FOLLOWUP. Pulse ox on. NIBP on. db 16:26 No provider procedures requiring assistance completed. IV discontinued, intact, db bleeding controlled, No redness/swelling at site. Administered Medications: 13:08 Drug: NS 0.9% IV 1000 ml IV at 1 bolus Per protocol; 1000 mL bolus Route: IV; Rate: 1 db bolus; Site: right hand; 16:15 Follow up: Response: No adverse reaction; IV Status: Completed infusion; IV Intake: db 1000ml 13:08 Drug: Famotidine IVP 20 mg IVP once; dilute with 10 mL 0.9% NaCl; give over 2 minutes db Route: IVP; Site: right hand; 14:07 Follow up: Response: No adverse reaction kc6 13:10 Drug: Ondansetron IVP 4 mg IVP once; over 2 minutes Route: IVP; Site: right hand; db 14:07 Follow up: Response: No adverse reaction; Nausea unchanged; Vomiting unchanged kc6 14:30 Drug: metoCLOPramide IVP 10 mg IVP once; over 1 to 2 minutes Route: IVP; Site: right db hand; 16:15 Follow up: Response: No adverse reaction db 14:30 Drug: Ketorolac IVP 30 mg IVP once Route: IVP; Site: right hand; db 16:15 Follow up: Response: No adverse reaction db Medication: 16:26 VIS not applicable for this client. db Intake: 16:15 IV: 1000ml; Total: 1000ml. db Outcome: 16:11 Discharge ordered by MD. solis 16:26 Patient left the ED. nj1 16:26 Discharged to home ambulatory, db 16:26 Condition: stable 16:26 Discharge instructions given to patient, Instructed on discharge instructions, follow up and referral plans. Prescriptions given X 1, Signatures: Dispatcher [employer] EDMS Luz Maria Ramírez, RN RN aa5 Yasmine Carroll 3 Tisha Hunter, AGRICULTURAL SCIENTIST AGRICULTURAL SCIENTIST 7 Shereen Lopez RN RN kc6 Christine Oakley, BRUCE RN db Mara Byrd RN RN nj1 Nikkie Talley 3
[2023-09-12 16:54] VITALS: TEMP 98
[2023-09-12 16:56] VITALS: BP 163/107; O2SAT 98
== END 2023-09-12 16:26 | disposition home or self-care (01) ==
LOC: ER 12:32
DX: K31.84 Gastroparesis (principal); Z11.52 Encounter for screening for COVID-19
CPT/HCPCS: 36415; 74177; 80053; 83690; 84703; 85025; 87804; 87811; 96361; 96374; 96375; 99285; J2405; J2765; J7030; Q9967

== ENCOUNTER 2023-10-05 15:36 | Emergency (ER) | payer MEDICARE ==
[2023-10-05] MEDS ORDERED: ONDANSETRON 4 MG/2 ML VIAL ONE (17:09)
[2023-10-05] MEDS ORDERED: PROMETHAZINE INJ 25 MG/ML AMP ONE ×2 (17:10→18:04)
[2023-10-05] MEDS ORDERED: NA CHLORIDE 0.9% 1,000 ML ONE (17:10)
[2023-10-05 17:40] LABS: Absolute Eosinophils 0.1 K/uL (0-0.5); Absolute Lymphocytes (CBC) 0.9 K/uL (0.7-4.9); Absolute Monocytes 0.3 K/uL (0.1-1.3); Absolute Neutrophil 6.1 K/uL (1.8-8.0); Basophils % 0.5 % (0-1.3); Eosinophils % 1.9 % (0-4.4); Hematocrit 42.7 % (36.0-45.0); Hemoglobin 13.7 g/dL (12.0-15.0); Lymphocytes % 11.9 % (15.3-44.8); MCH 26.7 pg (27.0-35.0); MCV 83.6 fL (80-100); MPV 10.6 fL (7.6-11.3); Monocytes % 4.4 % (3.3-12.3); Neutrophils % 81.3 % (41.7-73.7); Platelets 267 thou/uL (152-406); RBC Red Blood Cell Count 5.11 M/uL (3.86-4.86); Red Cell Distribution Width 16.2 % (12.1-15.2)
[2023-10-05 17:51] LABS: Albumin 4.1 g/dL (3.4-5.0); Albumin/Globulin Ratio 1.1 (1.1-1.8); Anion Gap 10.1 mEq/L (5.0-15.0); Bilirubin Total 0.6 mg/dL (0.2-1.0); Globulin 3.6 g/dL (2.3-3.5); Potassium 3.1 mEq/L (3.5-5.1); Protein, Total 7.7 g/dL (6.4-8.2)
[2023-10-05] MEDS ORDERED: POTASSIUM 25 MEQ EFFERV TAB ONE (18:04)
--- NOTE | 2023-10-05 18:23 | ER ---
Nurse's Notes [facility] Name: Efrem Pastor Age: 33 yrs Sex: Female : 1990 Arrival Date: 10/05/2023 Time: 15:36 Bed 18 Private MD: Diagnosis: Gastroparesis Presentation: 10/04 15:45 Chief complaint: Patient states: n/v severe abd pain since noon today. Coronavirus iw screen: At this time, the client does not indicate any symptoms associated with coronavirus-19. Ebola Screen: No symptoms or risks identified at this time. Initial Sepsis Screen: Does the patient meet any 2 criteria? No. Patient's initial sepsis screen is negative. Does the patient have a suspected source of infection? No. Patient's initial sepsis screen is negative. Risk Assessment: Do you want to hurt yourself or someone else? Patient reports no desire to harm self or others. Onset of symptoms was October 05, 2023. 15:45 Method Of Arrival: Ambulatory iw 15:45 Acuity: BELINDA 3 iw Triage Assessment: 17:00 General: Appears in no apparent distress. Behavior is cooperative, appropriate for age, bp anxious. Pain: Complains of pain in abdomen. EENT: No deficits noted. GI: Abdomen is non-distended. 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 - Infectious Disease History:: Denies. - Social history:: Smoking status: Reported history of juuling and/or vaping. Screenin:[address] [facility] ED Fall Risk Assessment (Adult) History of falling in the last 3 months, bp including since admission No falls in past 3 months (0 pts) Confusion or Disorientation No (0 pts) Intoxicated or Sedated No (0 pts) Impaired Gait No (0 pts) Mobility Assist Device Used No (0 pt) Altered Elimination No (0 pt) Score/Fall Risk Level 0 - 2 = Low Risk Oriented to surroundings. Abuse screen: Denies threats or abuse. Denies injuries from another. Nutritional screening: No deficits noted. Tuberculosis screening: No symptoms or risk factors identified. Assessment: 17:00 General: SEE TRIAGE NOTE. bp 18:15 Reassessment: Patient appears in no apparent distress at this time. Patient is alert, bp oriented x 3, equal unlabored respirations, skin warm/dry/pink. 18:30 Reassessment: DC ON HOLD FOR IVF. bp Vital Signs: 15:45 BP 149 / 111; Pulse 94; Resp 16; Temp 98; Pulse Ox 99% on R/A; Weight 61.23 kg; Height iw 5 ft. 2 in. ; Pain 9/10; 18:15 BP 147 / 81; Pulse 85; Resp 16; Pulse Ox 98% ; bp 15:45 Body Mass Index 24.69 (61.23 kg, 157.48 cm) iw 15:45 Pain Scale: Adult iw ED Course: 15:37 Patient arrived in ED. mr 15:42 Benson Bae MD is Attending Physician. sp3 15:46 Triage completed. iw 15:46 Arm band placed on. iw 17:00 Jaspreet Travis, BRUCE is Primary Nurse. bp 17:22 Inserted saline lock: 22 gauge in right antecubital area, using aseptic technique. bp Blood collected. 18:15 Patient has correct armband on for positive identification. bp 19:00 No provider procedures requiring assistance completed. IV discontinued, intact, bp bleeding controlled, No redness/swelling at site. Pressure dressing applied. Administered Medications: 17:23 Drug: NS 0.9% IV 1000 ml IV at 1 bolus Per protocol; 1000 mL bolus Route: IV; Rate: 1 bp bolus; Site: right antecubital; 19:00 Follow up: IV Status: Completed infusion; IV Intake: 1000ml bp 17:23 Drug: Ondansetron IVP 4 mg IVP once; over 2 minutes Route: IVP; Site: right antecubital;bp 18:37 Follow up: Response: No adverse reaction bp 17:23 Drug: Promethazine IVP 12.5 mg IVP once Route: IVP; Site: right antecubital; bp 18:37 Follow up: Response: No adverse reaction bp 18:08 Drug: Potassium PO Effervescent Tablet 50 mEq PO once; dissolve in 4 ounces of water or bp juice Route: PO; 18:37 Follow up: Response: No adverse reaction bp 18:08 Drug: Promethazine IVP 12.5 mg IVP once Route: IVP; Site: right antecubital; bp 18:37 Follow up: Response: No adverse reaction bp Medication: 18:15 VIS not applicable for this client. bp Intake: 19:00 IV: 1000ml; Total: 1000ml. bp Outcome: 18:23 Discharge ordered by sp3 19:00 Discharged to home ambulatory, with family, bp 19:00 Condition: stable 19:00 Discharge instructions given to patient, Instructed on discharge instructions, follow up and referral plans. medication usage, Demonstrated understanding of instructions, follow-up care, medications, Prescriptions given X 1, 19:01 Patient left the ED. bp Signatures: Kira Murillo, Reg Reg mr Lynnette Malik, RN RN iw Jaspreet Travis RN RN bp Benson Bae MD MD sp3 Corrections: (The following items were deleted from the chart) 15:46 15:45 BP 149 / 11; Pulse 94bpm; Resp 16bpm; Pulse Ox 99% RA; Temp 98F; 61.23 kg; Height iw 5 ft. 2 in.; BMI: 24.6; Pain 9/10, Adult; iw
--- NOTE | 2023-10-05 18:24 | EDPHYS ---
Physician Documentation [facility] Name: Efrem Pastor Age: 33 yrs Sex: Female : 1990 Arrival Date: 10/05/2023 Time: 15:36 Bed 18 Private MD: ED Physician Benson Bae HPI: 10/04 16:49 This 33 yrs old Female presents to ER via Ambulatory with complaints of Abdominal Pain, sp3 Vomiting. 16:49 33-year-old female with a history of gastroparesis nerve entrapment syndrome, irritable sp3 bowel, well-known to the emergency department now presents again for vomiting and abdominal cramping in her typical pattern with no significant changes. She denies any fever, blood in her emesis, bloody diarrhea, melena, or any other significant signs or symptoms on ROS at this time.. 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 - Infectious Disease History:: Denies. - Social history:: Smoking status: Reported history of juuling and/or vaping. ROS: 16:49 Constitutional: Negative for fever, chills, and weight loss, Eyes: Negative for injury, sp3 pain, redness, and discharge, Neck: Negative for injury, pain, and swelling, Cardiovascular: Negative for chest pain, palpitations, and edema, Respiratory: Negative for shortness of breath, cough, wheezing, and pleuritic chest pain, Back: Negative for injury and pain, MS/Extremity: Negative for injury and deformity, Skin: Negative for injury, rash, and discoloration, Neuro: Negative for headache, weakness, numbness, tingling, and seizure, Psych: Negative for depression, anxiety, suicide ideation, homicidal ideation, and hallucinations, Allergy/Immunology: Negative for hives, rash, and allergies, Endocrine: Negative for neck swelling, polydipsia, polyuria, polyphagia, and marked weight changes, Hematologic/Lymphatic: Negative for swollen nodes, abnormal bleeding, and unusual bruising, 16:49 All other systems are negative, Exam: 16:50 Constitutional: This is a well developed, well nourished patient who is awake, alert, sp3 and in no acute distress. Head/Face: Normocephalic, atraumatic. Eyes: Pupils equal round and reactive to light, extra-ocular motions intact. Lids and lashes normal. Conjunctiva and sclera are non-icteric and not injected. Cornea within normal limits. Periorbital areas with no swelling, redness, or edema. Neck: Trachea midline, no thyromegaly or masses palpated, and no cervical lymphadenopathy. Supple, full range of motion without nuchal rigidity, or vertebral point tenderness. No Meningismus. Chest/axilla: Normal chest wall appearance and motion. Nontender with no deformity. No lesions are appreciated. Cardiovascular: Regular rate and rhythm with a normal S1 and S2. No gallops, murmurs, or rubs. Normal PMI, no JVD. No pulse deficits. Respiratory: Lungs have equal breath sounds bilaterally, clear to auscultation and percussion. No rales, rhonchi or wheezes noted. No increased work of breathing, no retractions or nasal flaring. Back: No spinal tenderness. No costovertebral tenderness. Full range of motion. Skin: Warm, dry with normal turgor. Normal color with no rashes, no lesions, and no evidence of cellulitis. MS/ Extremity: Pulses equal, no cyanosis. Neurovascular intact. Full, normal range of motion. Neuro: Awake and alert, GCS 15, oriented to person, place, time, and situation. Cranial nerves II-XII grossly intact. Motor strength 5/5 in all extremities. Sensory grossly intact. Cerebellar exam normal. Normal gait. Psych: Awake, alert, with orientation to person, place and time. Behavior, mood, and affect are within normal limits. 16:50 Abdomen/GI: Diffuse mild cramping on palpation without peritoneal signs, rebound or sp3 guarding., Vital Signs: 15:45 BP 149 / 111; Pulse 94; Resp 16; Temp 98; Pulse Ox 99% on R/A; Weight 61.23 kg; Height iw 5 ft. 2 in. ; Pain 9/10; 18:15 BP 147 / 81; Pulse 85; Resp 16; Pulse Ox 98% ; bp 15:45 Body Mass Index 24.69 (61.23 kg, 157.48 cm) iw 15:45 Pain Scale: Adult iw MDM: 15:48 Patient medically screened. sp3 16:51 Data reviewed: vital signs, nurses notes, old medical records, lab test result(s). ED sp3 course: 33-year-old female with gastroparesis well-known to the ED. I believe this is her typical pattern and I believe any other surgical emergency or sepsis exist. We will check laboratory values, and administer IV fluids and antiemetics. Will hold on pain medication at this time given patient's prior history. Disposition pending workup and patient course with probable discharge home once patient is improved.. 18:22 ED course: Patient improved and potassium replaced. We will safely discharge home at sp3 this time.. 10/04 15:49 Order name: CBC with Diff; Complete Time: 17:57 sp3 10/04 15:49 Order name: CMP; Complete Time: 17:57 sp3 10/04 15:49 Order name: Lipase; Complete Time: 17:57 sp3 10/04 15:49 Order name: IV Saline Lock; Complete Time: 17:23 sp3 10/04 15:49 Order name: Labs collected and sent; Complete Time: 17:23 sp3 Administered Medications: 17:23 Drug: NS 0.9% IV 1000 ml IV at 1 bolus Per protocol; 1000 mL bolus Route: IV; Rate: 1 bp bolus; Site: right antecubital; 19:00 Follow up: IV Status: Completed infusion; IV Intake: 1000ml bp 17:23 Drug: Ondansetron IVP 4 mg IVP once; over 2 minutes Route: IVP; Site: right antecubital;bp 18:37 Follow up: Response: No adverse reaction bp 17:23 Drug: Promethazine IVP 12.5 mg IVP once Route: IVP; Site: right antecubital; bp 18:37 Follow up: Response: No adverse reaction bp 18:08 Drug: Potassium PO Effervescent Tablet 50 mEq PO once; dissolve in 4 ounces of water or bp juice Route: PO; 18:37 Follow up: Response: No adverse reaction bp 18:08 Drug: Promethazine IVP 12.5 mg IVP once Route: IVP; Site: right antecubital; bp 18:37 Follow up: Response: No adverse reaction bp Disposition Summary: 10/05/23 18:23 Discharge Ordered Notes: Location: Home sp3 Condition: Stable sp3 Diagnosis - Gastroparesis sp3 Followup: sp3 - With: Private Physician - When: Upon discharge from the Emergency Department - Reason: Continuance of care Discharge Instructions: - Discharge Summary Sheet sp3 - Gastroparesis sp3 Forms: - Medication Reconciliation Form sp3 - Antibiotic Education sp3 - Prescription Opioid Use sp3 - Patient Portal Instructions sp3 - Leadership Thank You Letter sp3 Prescriptions: - ondansetron 8 mg Oral Tablet,disintegrating - take 1 tablet ORAL route every 12 hours; 20 tablet; Refills: 0, Product sp3 Selection Permitted Signatures: Dispatcher [employer] EDLynnette Johnson RN RN iw Peltier, Brian, RN RN bp Patel, Setul, MD MD sp3 Corrections: (The following items were deleted from the chart) 15:49 15:49 CBC+H.LAB.BRZ ordered. EDMS EDMS 15:49 15:49 COMPREHENSIVE METABOLIC PANEL+C.LAB.BRZ ordered. EDMS EDMS 15:49 15:49 LIPASE+C.LAB.BRZ ordered. EDMS EDMS
== END 2023-10-05 19:01 | disposition home or self-care (01) ==
LOC: ER 15:36
DX: K31.84 Gastroparesis (principal)
CPT/HCPCS: 36415; 80053; 83690; 85025; 96361; 96374; 96375; 99284; J2405; J2550; J7030

== ENCOUNTER 2024-01-18 20:50 | Emergency (ER) | payer BC ==
[2024-01-18] MEDS ORDERED: PROMETHAZINE INJ 25 MG/ML AMP ONE (21:45)
[2024-01-18] MEDS ORDERED: HYDROCORTISONE SUC 100 MG INJ ONE (21:45)
[2024-01-18 21:46] LABS: Absolute Lymphocytes (CBC) 0.8 K/uL (0.7-4.9); Absolute Monocytes 0.5 K/uL (0.1-1.3); Absolute Neutrophil 11.3 K/uL (1.8-8.0); Basophils % 0.4 % (0-1.3); Eosinophils % 0.1 % (0-4.4); Hematocrit 38.8 % (36.0-45.0); Hemoglobin 12.6 g/dL (12.0-15.0); MCH 26.9 pg (27.0-35.0); MCHC 32.5 g/dL (32.0-36.0); Neutrophils % 89.5 % (41.7-73.7); Platelets 251 thou/uL (152-406); RBC Red Blood Cell Count 4.68 M/uL (3.86-4.86); Red Cell Distribution Width 17.3 % (12.1-15.2)
[2024-01-18] MEDS ORDERED: MORPHINE 4 MG/ML SYR ONE (21:46)
[2024-01-18] MEDS ORDERED: NA CHLORIDE 0.9% 1,000 ML ONE (21:46)
[2024-01-18] MEDS ORDERED: METOCLOPRAMIDE 10 MG/2mL INJ ONE (21:46)
[2024-01-18 21:57] LABS: Albumin 3.5 g/dL (3.4-5.0); Albumin/Globulin Ratio 0.9 (1.1-1.8); Anion Gap 10.5 mEq/L (5.0-15.0); Bilirubin Total 0.5 mg/dL (0.2-1.0); C-Reactive Protein 3.75 mg/L (<3.00); Globulin 3.7 g/dL (2.3-3.5); Potassium 3.5 mEq/L (3.5-5.1); Protein, Total 7.2 g/dL (6.4-8.2)
[2024-01-18 22:04] LABS: Blood Morphology Comment NOT SEEN (NOT SEEN); Platelet Estimate ADEQ; White Blood Cell Scan OK (OK)
--- NOTE | 2024-01-19 00:26 | EDPHYS ---
Physician Documentation [facility] Name: Efrem Pastor Age: 33 yrs Sex: Female : 1990 Arrival Date: 01/18/2024 Time: 20:50 Bed 20 Private MD: ED Physician Mario Santo HPI: 01/17 21:02 This 33 yrs old Female presents to ER via Unassigned with complaints of pain sp4 and vomiting . 01/18 00:32 33-year-old female with past medical history of anxiety, chronic pain, gastroparesis, sp4 irritable bowel syndrome presents with EMS with acute epigastric pain and vomiting starting earlier this morning. . Patient was given IV Zofran and IV fluids by EMS.. 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 - Infectious Disease History:: Denies. - Family history:: not pertinent. - Social history:: Smoking status: Patient denies any tobacco usage or history of. ROS: 21:32 Constitutional: Negative for fever, chills, and weight loss, Positive for abdominal sp4 epigastric pain, nausea and vomiting. positive for diarrhea 21:32 All other systems are negative, Exam: 21:32 Constitutional: This is a well developed, well nourished patient who is awake, alert, sp4 and in no acute distress. Head/Face: Normocephalic, atraumatic. Eyes: Pupils equal round and reactive to light, extra-ocular motions intact. Lids and lashes normal. Conjunctiva and sclera are not injected. Cornea within normal limits. Periorbital areas with no swelling, redness, or edema. ENT: Nares patent. No nasal discharge, no septal abnormalities noted. Tympanic membranes are normal and external auditory canals are clear. Oropharynx with no redness, swelling, or masses, exudates, or evidence of obstruction, uvula midline. Mucous membranes moist. Neck: Trachea midline, no thyromegaly or masses palpated, and no cervical lymphadenopathy. Supple, full range of motion without nuchal rigidity, or vertebral point tenderness. Chest/axilla: Normal chest wall appearance and motion. Nontender with no deformity. No lesions are appreciated. Cardiovascular: Regular rate and rhythm with a normal S1 and S2. No gallops, murmurs, or rubs. Normal PMI, no JVD. No pulse deficits. Respiratory: Lungs have equal breath sounds bilaterally, clear to auscultation and percussion. No rales, rhonchi or wheezes noted. No increased work of breathing, no retractions or nasal flaring. Abdomen/GI: Soft, with normal bowel sounds. No distension or tympany. No guarding or rebound. No evidence of tenderness throughout. Back: No spinal tenderness. No costovertebral tenderness. Skin: Warm, dry with normal turgor. Normal color with no rashes, no lesions, and no evidence of cellulitis. MS/ Extremity: Pulses equal, no cyanosis. Neurovascular intact. Full, normal range of motion. Neuro: Awake and alert, GCS 15, oriented to person, place, time, and situation. Cranial nerves II-XII grossly intact. Motor strength 5/5 in all extremities. Sensory grossly intact. Psych: Awake, alert, with orientation to person, place and time. Behavior, mood, and affect are within normal limits Vital Signs: 21:00 BP 151 / 101; Pulse 89; Resp 16; Temp 97.4(O); Pulse Ox 99% on R/A; Weight 63.5 kg (R); jb4 Height 5 ft. 2 in. (R); 22:30 BP 144 / 110; Pulse 88; Resp 16; Pulse Ox 97% on R/A; jb4 23:57 BP 150 / 104; Pulse 70; Resp 16; Pulse Ox 97% on R/A; jb4 01/18 01:14 BP 128 / 90; Pulse 70; Resp 18; Temp 97.9; Pulse Ox 100% ; kj2 01/17 21:00 Body Mass Index 25.61 (63.50 kg, 157.48 cm) jb4 Feliz Coma Score: 01/17 21:32 Eye Response: spontaneous(4). Motor Response: obeys commands(6). Verbal Response: sp4 oriented(5). Total: 15. MDM: 21:04 Medical Screening Exam initiated sp4 21:35 Differential diagnosis: cholecystitis, Cholelithiasis, diverticulitis, Endometriosis, sp4 gastritis, Gastroparesis. Data reviewed: vital signs, nurses notes, EMS record, old medical records, lab test result(s). Consideration of Admission/Observation Escalation of care including admission/observation considered. ED course: Nausea and pain was controlled. . 01/17 21:03 Order name: CBC with Diff; Complete Time: 23:20 sp4 01/17 21:03 Order name: CMP; Complete Time: 23:20 sp4 01/17 21:03 Order name: Lipase; Complete Time: 23:20 sp4 01/17 21:03 Order name: Test, Serum; Complete Time: 23:20 sp4 01/17 21:04 Order name: CRP; Complete Time: 23:20 sp4 01/17 22:05 Order name: CBC Smear Scan; Complete Time: 23:20 EDMS 01/17 21:03 Order name: IV Saline Lock; Complete Time: 21:15 sp4 01/17 21:03 Order name: Labs collected and sent; Complete Time: 21:14 sp4 Administered Medications: 21:58 Drug: Promethazine IM 50 mg IM once Route: IM; Site: left gluteus; 4 21:58 Drug: Solu-CORTEF IVP 100 mg IVP once Route: IVP; Site: right antecubital; 4 01/18 01:17 Follow up: Response: No adverse reaction kj2 01/17 21:59 Drug: morphine IVP or IV 4 mg IVP once over 4 mins Route: IVP; Infused Over: 4 mins; [facility] Site: right antecubital; 01/18 01:18 Follow up: Response: No adverse reaction kj2 01/17 21:59 Drug: metoCLOPramide IVP 10 mg IVP once; over 1 to 2 minutes Route: IVP; Site: right jb4 antecubital; 01/18 01:18 Follow up: Response: No adverse reaction kj2 01/17 21:59 Drug: Promethazine IM 50 mg IM once Route: IM; Site: right gluteus; jb4 01/18 01:18 Follow up: Response: No adverse reaction kj2 01/17 21:59 Drug: NS 0.9% IV 1000 ml IV at 1000 ml once; to be given as a bolus over 60 minutes jb4 Route: IV; Rate: 1000 ml; Site: right antecubital; 23:59 Follow up: IV Status: Completed infusion; IV Intake: 1000ml kj2 Disposition Summary: 01/19/24 00:25 Discharge Ordered Notes: Location: Home sp4 Problem: new sp4 Symptoms: have improved sp4 Condition: Stable sp4 Diagnosis - Acute nausea and vomiting, acute epigastric pain, Gastroparesis sp4 Followup: sp4 - With: Private Physician - When: 7 - 10 days - Reason: Recheck today's complaints Discharge Instructions: - Discharge Summary Sheet sp4 - Clear Liquid Diet, Adult, [id number] sp4 Forms: - Patient Portal Instructions sp4 Prescriptions: - Reglan 10 mg Oral tablet - take 1 tablet ORAL route every 6 hours PRN nausea; 30 tablet; Refills: 0, sp4 Product Selection Permitted - promethazine 25 mg Oral Tablet - take 1 tablet ORAL route every 6 hours As needed; 20 tablet; Refills: 0, sp4 Product Selection Permitted Signatures: Dispatcher [employer] Ulises Baum RN RN jb4 Mario Santo MD MD sp4 Lola Ricardo RN kj2 Corrections: (The following items were deleted from the chart) 21:04 21:04 TEST, SERUM+SC.LAB.BRZ ordered. EDMS EDMS 21:04 21:04 C-REACTIVE PROTEIN+C.LAB.BRZ ordered. EDMS EDMS
--- NOTE | 2024-01-19 00:26 | ER ---
Nurse's Notes [facility] Name: Efrem Pastor Age: 33 yrs Sex: Female : 1990 Arrival Date: 01/18/2024 Time: 20:50 Bed 20 Private MD: Diagnosis: Acute nausea and vomiting, acute epigastric pain, Gastroparesis Presentation: 01/17 21:00 Chief complaint: EMS states: Pt reports chronic abdominal pain and constantly vomiting jb4 bile. 21:00 Coronavirus screen: At this time, the client does not indicate any symptoms associated jb4 with coronavirus-19. Ebola Screen: No symptoms or risks identified at this time. Initial Sepsis Screen: Does the patient meet any 2 criteria? No. Patient's initial sepsis screen is negative. Does the patient have a suspected source of infection? No. Patient's initial sepsis screen is negative. Risk Assessment: Do you want to hurt yourself or someone else? Patient reports no desire to harm self or others. Onset of symptoms was January 18, 2024. Transition of care: patient was not received from another setting of care. 21:00 Method Of Arrival: EMS: [facility] jb4 21:00 Acuity: BELINDA 3 jb4 PENSION ADMINISTRATOR: 01/18 01:26 Not kj2 Historical: - Allergies: 01/17 21:00 Haldol; jb4 21:00 Scopolamine HBr; jb4 - PMHx: 21:00 Acute cutaneous nerve entrapment syndrome; ACNE (Unknown); Anxiety; Gastroparesis; jb4 Irritable bowel syndrome; neuropathy; PTSD; - PSHx: 21:00 bilateral ureter attachment; Cholecystectomy; leep procedure; Lumpectomy of breast; jb4 right breast; - Immunization history:: Adult Immunizations up to date. - Infectious Disease History:: Denies. - Family history:: not pertinent. - Social history:: Smoking status: Patient denies any tobacco usage or history of. Screenin/10 00:00 [facility] ED Fall Risk Assessment (Adult) History of falling in the last 3 months, kj2 including since admission No falls in past 3 months (0 pts) Confusion or Disorientation No (0 pts) Intoxicated or Sedated No (0 pts) Impaired Gait Yes (1 pt) Mobility Assist Device Used Altered Elimination No (0 pt) Score/Fall Risk Level 0 - 2 = Low Risk Maintained a safe environment, Used ambulatory aids as needed (educated on \T\ assisted with). Abuse screen: Denies threats or abuse. Denies injuries from another. Nutritional screening: No deficits noted. Tuberculosis screening: No symptoms or risk factors identified. 01:14 [facility] ED Fall Risk Assessment (Adult) History of falling in the last 3 months, kj2 including since admission No falls in past 3 months (0 pts). Assessment: 01/17 21:00 General: Appears in no apparent distress. uncomfortable, Behavior is calm, cooperative, jb4 appropriate for age. Pain: Complains of pain in abdomen Pain does not radiate. Pain currently is 10 out of 10 on a pain scale. Neuro: Level of Consciousness is awake, alert, obeys commands, Oriented to person, place, time, situation. Cardiovascular: Patient's skin is warm and dry. Respiratory: Airway is patent Respiratory effort is even, unlabored, Respiratory pattern is regular, symmetrical. GI: Abdomen is flat, non-distended, Pt is actively vomiting clear fluid. : No signs and/or symptoms were reported regarding the genitourinary system. Derm: Skin is intact, Skin is pink, warm \T\ dry. Musculoskeletal: Circulation, motion, and sensation intact. Range of motion: intact in all extremities. 22:00 Reassessment: Patient appears in no apparent distress at this time. Patient and/or jb4 family updated on plan of care and expected duration. Pain level reassessed. Patient is alert, oriented x 3, equal unlabored respirations, skin warm/dry/pink. 23:00 Reassessment: Patient appears in no apparent distress at this time. Patient and/or jb4 family updated on plan of care and expected duration. Pain level reassessed. Patient is alert, oriented x 3, equal unlabored respirations, skin warm/dry/pink. 23:58 Reassessment: Patient appears in no apparent distress at this time. Patient and/or jb4 family updated on plan of care and expected duration. Pain level reassessed. Patient is alert, oriented x 3, equal unlabored respirations, skin warm/dry/pink. Pt tolerated PO challenge. Physician notified. 01/18 01:14 Reassessment: Patient appears in no apparent distress at this time. Patient and/or kj2 family updated on plan of care and expected duration. Pain level reassessed. Patient is alert, oriented x 3, equal unlabored respirations, skin warm/dry/pink. Vital Signs: 01/17 21:00 BP 151 / 101; Pulse 89; Resp 16; Temp 97.4(O); Pulse Ox 99% on R/A; Weight 63.5 kg (R); jb4 Height 5 ft. 2 in. (R); 22:30 BP 144 / 110; Pulse 88; Resp 16; Pulse Ox 97% on R/A; jb4 23:57 BP 150 / 104; Pulse 70; Resp 16; Pulse Ox 97% on R/A; jb4 12 01:14 BP 128 / 90; Pulse 70; Resp 18; Temp 97.9; Pulse Ox 100% ; kj2 01/17 21:00 Body Mass Index 25.61 (63.50 kg, 157.48 cm) jb4 Elk Coma Score: 01/17 21:32 Eye Response: spontaneous(4). Motor Response: obeys commands(6). Verbal Response: sp4 oriented(5). Total: 15. ED Course: 20:58 Patient arrived in ED. vk 20:59 Mario Santo MD is Attending Physician. sp4 21:00 Arm band placed on right wrist. jb4 21:14 CBC with Diff Sent. vk 21:14 CMP Sent. vk 21:14 Lipase Sent. vk 21:14 Test, Serum Sent. vk 21:15 Ulises Gilbert RN is Primary Nurse. jb4 21:15 CRP Sent. vk 21:15 Initial lab(s) drawn, by me, sent to lab. Maintain EMS IV. Dressing intact. Good blood vk return noted. Site clean \T\ dry. Gauge \T\ site: 18 G. Flushed with 10 mL NS. 21:42 Triage completed. jb4 01/18 00:00 Patient has correct armband on for positive identification. Bed in low position. Call kj2 light in reach. Provided Education on: call light. 01:16 No provider procedures requiring assistance completed. kj2 01:17 IV discontinued, intact, bleeding controlled, No redness/swelling at site. Pressure kj2 dressing applied. Administered Medications: 01/17 21:58 Drug: Promethazine IM 50 mg IM once Route: IM; Site: left gluteus; jb4 21:58 Drug: Solu-CORTEF IVP 100 mg IVP once Route: IVP; Site: right antecubital; jb4 01/18 01:17 Follow up: Response: No adverse reaction kj2 01/17 21:59 Drug: morphine IVP or IV 4 mg IVP once over 4 mins Route: IVP; Infused Over: 4 mins; jb4 Site: right antecubital; 01/18 01:18 Follow up: Response: No adverse reaction kj2 01/17 21:59 Drug: metoCLOPramide IVP 10 mg IVP once; over 1 to 2 minutes Route: IVP; Site: right jb4 antecubital; 01/18 01:18 Follow up: Response: No adverse reaction kj2 01/17 21:59 Drug: Promethazine IM 50 mg IM once Route: IM; Site: right gluteus; jb4 01/18 01:18 Follow up: Response: No adverse reaction kj2 01/17 21:59 Drug: NS 0.9% IV 1000 ml IV at 1000 ml once; to be given as a bolus over 60 minutes jb4 Route: IV; Rate: 1000 ml; Site: right antecubital; 23:59 Follow up: IV Status: Completed infusion; IV Intake: 1000ml kj2 Medication: 01/18 01:16 VIS not applicable for this client. kj2 Intake: 01/17 23:59 IV: 1000ml; Total: 1000ml. kj2 Outcome: 01/18 00:25 Discharge ordered by . sp4 01:16 Discharged to home ambulatory, kj2 01:16 Condition: stable 01:16 Discharge instructions given to patient, Instructed on discharge instructions, follow up and referral plans. Demonstrated understanding of instructions, follow-up care, 01:27 Patient left the ED. kj2 Signatures: Ulises Gilbert RN RN jb4 Mario Santo MD MD sp4 Judy Meyer Krystal, RN RN kj2
[2024-01-19 06:37] VITALS: BP 128/90; TEMP 97.9; O2SAT 100
== END 2024-01-19 01:27 | disposition home or self-care (01) ==
LOC: ER 20:50
DX: K31.84 Gastroparesis (principal); R10.13 Epigastric pain
CPT/HCPCS: 96361; 85025; 36415; 84703; 83690; 80053; 86140; 96375; 96372; 96374; 99284; J2550; J2765; J1720; J7030

== ENCOUNTER 2024-01-27 20:48 | Emergency (ER) | payer BC ==
[2024-01-27] MEDS ORDERED: KETOROLAC 30 MG/ML INJ ONE (21:52)
[2024-01-27] MEDS ORDERED: PROMETHAZINE INJ 25 MG/ML AMP ONE (21:52)
[2024-01-27] MEDS ORDERED: ONDANSETRON 4 MG/2 ML VIAL ONE (21:52)
[2024-01-27] MEDS ORDERED: HYDROCORTISONE SUC 100 MG INJ ONE (21:52)
[2024-01-27] MEDS ORDERED: MORPHINE 2 MG/ML SYR ONE (21:53)
[2024-01-27] MEDS ORDERED: MORPHINE 4 MG/ML SYR ONE (21:53)
[2024-01-27] MEDS ORDERED: METOCLOPRAMIDE 10 MG/2mL INJ ONE (21:53)
[2024-01-27] MEDS ORDERED: NA CHLORIDE 0.9% 2,000 ML ONE (21:53)
[2024-01-27 22:00] LABS: Absolute Lymphocytes (CBC) 0.6 K/uL (0.7-4.9); Absolute Monocytes 0.2 K/uL (0.1-1.3); Basophils % 0.4 % (0-1.3); Hematocrit 43.4 % (36.0-45.0); Hemoglobin 14.3 g/dL (12.0-15.0); MCH 27.1 pg (27.0-35.0); MCHC 32.9 g/dL (32.0-36.0); MCV 82.4 fL (80-100); MPV 10.7 fL (7.6-11.3); Monocytes % 2.5 % (3.3-12.3); Neutrophils % 91.1 % (41.7-73.7); Platelets 274 thou/uL (152-406); RBC Red Blood Cell Count 5.27 M/uL (3.86-4.86); Red Cell Distribution Width 17.3 % (12.1-15.2)
[2024-01-27] MEDS ORDERED: DICYCLOMINE HCL 20 MG/2 ML AMP IM ONE (22:49)
[2024-01-27 22:57] LABS: Albumin 4.1 g/dL (3.4-5.0); Albumin/Globulin Ratio 0.9 (1.1-1.8); Bilirubin Total 0.8 mg/dL (0.2-1.0); Globulin 4.4 g/dL (2.3-3.5); Protein, Total 8.5 g/dL (6.4-8.2)
--- NOTE | 2024-01-28 00:58 | EDPHYS ---
Physician Documentation [facility] Name: Efrem Pastor Age: 33 yrs Sex: Female : 1990 Arrival Date: 01/27/2024 Time: 20:48 Bed 7 Private MD: ED Physician Mario Santo HPI: 01/26 20:53 This 33 yrs old Female presents to ER via Unassigned with complaints of sp4 Abdominal Pain, Nausea/Vomiting. 01/27 20:21 33-year-old female with history of gastroparesis and chronic pain presents with acute sp4 onset of vomiting and abdominal pain typical of her gastroparesis. Patient reports profuse vomiting today.. Historical: - Allergies: 01/26 21:20 Haldol; kd3 21:20 Scopolamine HBr; kd3 - PMHx: 21:20 Acute cutaneous nerve entrapment syndrome; ACNE (Unknown); Acute cutaneous nerve kd3 entrapment syndrome; ACNE (Unknown); Gastroparesis; Gastroparesis; neuropathy; neuropathy; PTSD; Irritable bowel syndrome; Anxiety; - PSHx: 21:20 bilateral ureter attachment; leep procedure; Lumpectomy of breast; right breast; kd3 Cholecystectomy; - Immunization history:: Adult Immunizations up to date. - Infectious Disease History:: Denies. - Social history:: Smoking status: unknown. - Family history:: not pertinent. ROS: 01/27 20:21 Constitutional: Negative for fever, chills, and weight loss, positive for nausea sp4 vomiting positive for diffuse abdominal pain All other systems are negative, Exam: 20:21 Constitutional: This is a well developed, well nourished patient who is awake, alert, sp4 and in no acute distress. Head/Face: Normocephalic, atraumatic. Eyes: Pupils equal round and reactive to light, extra-ocular motions intact. Lids and lashes normal. Conjunctiva and sclera are not injected. Cornea within normal limits. Periorbital areas with no swelling, redness, or edema. ENT: Nares patent. No nasal discharge, no septal abnormalities noted. Tympanic membranes are normal and external auditory canals are clear. Oropharynx with no redness, swelling, or masses, exudates, or evidence of obstruction, uvula midline. Mucous membranes moist. Neck: Trachea midline, no thyromegaly or masses palpated, and no cervical lymphadenopathy. Supple, full range of motion without nuchal rigidity, or vertebral point tenderness. Chest/axilla: Normal chest wall appearance and motion. Nontender with no deformity. No lesions are appreciated. Cardiovascular: Regular rate and rhythm with a normal S1 and S2. No gallops, murmurs, or rubs. Normal PMI, no JVD. No pulse deficits. Respiratory: Lungs have equal breath sounds bilaterally, clear to auscultation and percussion. No rales, rhonchi or wheezes noted. No increased work of breathing, no retractions or nasal flaring. Abdomen/GI: Soft, with normal bowel sounds. No distension or tympany. No guarding or rebound. No evidence of tenderness throughout. Back: No spinal tenderness. No costovertebral tenderness. Skin: Warm, dry with normal turgor. Normal color with no rashes, no lesions, and no evidence of cellulitis. MS/ Extremity: Pulses equal, no cyanosis. Neurovascular intact. Full, normal range of motion. Neuro: Awake and alert, GCS 15, oriented to person, place, time, and situation. Cranial nerves II-XII grossly intact. Motor strength 5/5 in all extremities. Sensory grossly intact. Psych: Awake, alert, with orientation to person, place and time. Behavior, mood, and affect are within normal limits Vital Signs: 01/26 21:18 BP 163 / 102; Pulse 119; Resp 22; Temp 97.9(O); Pulse Ox 94% on R/A; Weight 61.23 kg; kd3 Height 5 ft. 2 in. ; Pain 9/10; 21:21 BP 154 / 110; kd3 22:44 BP 147 / 116; Pulse 86; Resp 16; Pulse Ox 96% on R/A; kd3 01/27 01:12 BP 117 / 87; Pulse 84; Resp 19; Pulse Ox 98% on R/A; kd3 01/26 21:18 Body Mass Index 24.69 (61.23 kg, 157.48 cm) kd3 01/26 21:18 Pain Scale: Adult kd3 Feliz Coma Score: 20:21 Eye Response: spontaneous(4). Motor Response: obeys commands(6). Verbal Response: sp4 oriented(5). Total: 15. MDM: 01/26 20:54 Medical Screening Exam initiated sp4 01/27 20:21 Differential diagnosis: Nonspecific abd pain, gastritis, viral gastroenteritis, sp4 gastroenteritis. Data reviewed: vital signs, nurses notes, lab test result(s), CBC, electrolytes, hepatic panel. 20:25 Consideration of Admission/Observation Escalation of care including sp4 admission/observation considered. ED course: Patient has markedly improved after IV hydration and medications. Patient states she is ready to go home. Patient was made aware of mild elevation of LFT. She was advised to see her saw setter in 2 to 4 weeks for recheck of liver function panel. 01/26 20:53 Order name: CBC with Diff; Complete Time: 22:41 4 01/26 20:53 Order name: CMP; Complete Time: 00:55 [facility] 01/26 20:53 Order name: Lipase; Complete Time: 00:55 [facility] 01/26 20:53 Order name: IV Saline Lock; Complete Time: 22:44 [facility] 01/26 20:53 Order name: Labs collected and sent; Complete Time: 22:44 [facility] 01/26 22:03 Order name: Misc. Order: lavender\T\green recollect; Complete Time: 22:43 ty Administered Medications: 01/26 22:02 Drug: Promethazine IM 50 mg IM once Route: IM; Site: right gluteus; tm6 22:43 Drug: NS 0.9% IV (30 ml/kg) 30 ml/kg IV at bolus once; Sepsis Protocol; to be given as kd3 a bolus over 90 minutes Route: IV; Rate: bolus; Site: left antecubital; 01/27 01:12 Follow up: IV Status: Completed infusion kd3 01/26 22:43 Drug: Solu-CORTEF IVP 100 mg IVP once Route: IVP; Site: left antecubital; kd3 22:43 Drug: morphine IVP or IV 6 mg IVP once over 4 mins Route: IVP; Infused Over: 4 mins; kd3 Site: left antecubital; 22:43 Drug: Ketorolac IVP 30 mg IVP once Route: IVP; Site: left antecubital; kd3 22:44 Drug: Ondansetron IVP 4 mg IVP once; over 2 minutes Route: IVP; Site: left antecubital; kd3 22:44 Drug: metoCLOPramide IVP 10 mg IVP once; over 1 to 2 minutes Route: IVP; Site: left kd3 antecubital; 22:54 Drug: Dicyclomine IM 20 mg IM once Route: IM; Site: right deltoid; ay 23:33 Follow up: Response: No adverse reaction ay Disposition: 01/27 20:26 Chart complete. sp4 Disposition Summary: 01/28/24 00:57 Discharge Ordered Notes: Location: Home sp4 Problem: new sp4 Symptoms: have improved sp4 Condition: Stable sp4 Diagnosis - Acute enteritis, nausea vomiting, elevated liver enzyme, intractable vomiting, sp4 gastroparesis Followup: sp4 - With: Luis Wen MD - When: 7 - 10 days - Reason: Recheck today's complaints Discharge Instructions: - Discharge Summary Sheet sp4 - Gastroparesis sp4 Forms: - Patient Portal Instructions sp4 Signatures: Dispatcher [employer] Alison Gauthier RN RN kd3 Mario Santo MD MD sp4 Rosemarie Gibbs RN RN tm6 David Becker Awudu RN RN ay
--- NOTE | 2024-01-28 00:58 | ER ---
Nurse's Notes [facility] Name: Efrem Pastor Age: 33 yrs Sex: Female : 1990 Arrival Date: 01/27/2024 Time: 20:48 Bed 7 Private MD: Diagnosis: Acute enteritis, nausea vomiting, elevated liver enzyme, intractable vomiting, gastroparesis Presentation: 01/26 21:18 Chief complaint: Patient states: I have gastroparesis and i have had a few hours of kd3 nausea/ vomiting and Diarrhea. I have taken my at home Reglan, Zofran and dicyclomine at home with no relief. PT is activily vomiting in triage. Coronavirus screen: Vaccine status: Patient reports receiving the 2nd dose of the covid vaccine. Ebola Screen: No symptoms or risks identified at this time. Initial Sepsis Screen: Does the patient meet any 2 criteria? No. Patient's initial sepsis screen is negative. Does the patient have a suspected source of infection? No. Patient's initial sepsis screen is negative. Risk Assessment: Do you want to hurt yourself or someone else? Patient reports no desire to harm self or others. Onset of symptoms was January 27, 2024. 21:18 Method Of Arrival: Ambulatory kd3 21:18 Acuity: BELINDA 3 kd3 Triage Assessment: 21:20 General: Appears uncomfortable, ill, Behavior is calm, cooperative. Pain: Complains of kd3 pain in abdomen. GI: Abdomen is non-distended, Pt is actively vomiting bile. Historical: - Allergies: 21:20 Haldol; kd3 21:20 Scopolamine HBr; kd3 - PMHx: 21:20 Acute cutaneous nerve entrapment syndrome; ACNE (Unknown); Acute cutaneous nerve kd3 entrapment syndrome; ACNE (Unknown); Gastroparesis; Gastroparesis; neuropathy; neuropathy; PTSD; Irritable bowel syndrome; Anxiety; - PSHx: 21:20 bilateral ureter attachment; leep procedure; Lumpectomy of breast; right breast; kd3 Cholecystectomy; - Immunization history:: Adult Immunizations up to date. - Infectious Disease History:: Denies. - Social history:: Smoking status: unknown. - Family history:: not pertinent. Screenin:03 [facility] ED Fall Risk Assessment (Adult) History of falling in the last 3 months, tm6 including since admission No falls in past 3 months (0 pts) Confusion or Disorientation No (0 pts) Intoxicated or Sedated No (0 pts) Impaired Gait No (0 pts) Mobility Assist Device Used No (0 pt) Altered Elimination No (0 pt) Score/Fall Risk Level 0 - 2 = Low Risk Oriented to surroundings, Maintained a safe environment, Educated pt \T\ family on fall prevention, incl call for assistance when getting out of bed. Abuse screen: Denies threats or abuse. Denies injuries from another. Nutritional screening: No deficits noted. Tuberculosis screening: No symptoms or risk factors identified. Assessment: 22:03 General: Appears uncomfortable, ill, Behavior is calm, cooperative. Pain: Complains of tm6 pain in abdomen. Neuro: Level of Consciousness is awake, alert, obeys commands, Oriented to person, place, time, situation. Cardiovascular: Patient's skin is warm and dry. Respiratory: Airway is patent Respiratory effort is even, unlabored, Respiratory pattern is regular, symmetrical. GI: Abdomen is flat, non-distended, Abd is soft and non tender Reports lower abdominal pain, upper abdominal pain, nausea, vomiting. : No signs and/or symptoms were reported regarding the genitourinary system. EENT: No signs and/or symptoms were reported regarding the EENT system. Derm: No signs and/or symptoms reported regarding the dermatologic system. Musculoskeletal: No signs and/or symptoms reported regarding the musculoskeletal system. 01/27 01:11 GI: Bowel sounds present X 4 quads. kd3 Vital Signs: 01/26 21:18 BP 163 / 102; Pulse 119; Resp 22; Temp 97.9(O); Pulse Ox 94% on R/A; Weight 61.23 kg; kd3 Height 5 ft. 2 in. ; Pain 9/10; 21:21 BP 154 / 110; kd3 22:44 BP 147 / 116; Pulse 86; Resp 16; Pulse Ox 96% on R/A; kd3 01/27 01:12 BP 117 / 87; Pulse 84; Resp 19; Pulse Ox 98% on R/A; kd3 01/26 21:18 Body Mass Index 24.69 (61.23 kg, 157.48 cm) kd3 01/26 21:18 Pain Scale: Adult kd3 Feliz Coma Score: 20:21 Eye Response: spontaneous(4). Motor Response: obeys commands(6). Verbal Response: sp4 oriented(5). Total: 15. ED Course: 01/26 20:50 Patient arrived in ED. mr 20:53 Mario Santo MD is Attending Physician. sp4 21:20 Triage completed. kd3 21:20 Arm band placed on right wrist. kd3 21:49 Missed attempt(s): 20 gauge in right antecubital area. Bleeding controlled, band aid tm6 applied, catheter tip intact. 21:49 CBC with Diff Sent. tm6 21:49 CMP Sent. tm6 21:49 Lipase Sent. tm6 22:03 Patient has correct armband on for positive identification. Bed in low position. Call tm6 light in reach. Side rails up X 1. Provided Education on: use of call bond. 22:03 Missed attempt(s): 22 gauge in left antecubital area. Bleeding controlled, band aid tm6 applied, catheter tip intact. 22:27 Alison Johnson, RN is Primary Nurse. kd3 22:44 CMP Sent. kd3 22:44 Lipase Sent. kd3 22:44 No provider procedures requiring assistance completed. Inserted saline lock: 20 gauge kd3 in left antecubital area, using aseptic technique. Blood collected. Flushed with 10 mL NS. 01/27 00:57 Luis Wen MD is Referral Physician. sp4 01:11 IV discontinued, intact, bleeding controlled, No redness/swelling at site. Pressure kd3 dressing applied. Administered Medications: 01/26 22:02 Drug: Promethazine IM 50 mg IM once Route: IM; Site: right gluteus; tm6 22:43 Drug: NS 0.9% IV (30 ml/kg) 30 ml/kg IV at bolus once; Sepsis Protocol; to be given as kd3 a bolus over 90 minutes Route: IV; Rate: bolus; Site: left antecubital; 01/27 01:12 Follow up: IV Status: Completed infusion kd3 01/26 22:43 Drug: Solu-CORTEF IVP 100 mg IVP once Route: IVP; Site: left antecubital; kd3 22:43 Drug: morphine IVP or IV 6 mg IVP once over 4 mins Route: IVP; Infused Over: 4 mins; kd3 Site: left antecubital; 22:43 Drug: Ketorolac IVP 30 mg IVP once Route: IVP; Site: left antecubital; kd3 22:44 Drug: Ondansetron IVP 4 mg IVP once; over 2 minutes Route: IVP; Site: left antecubital; kd3 22:44 Drug: metoCLOPramide IVP 10 mg IVP once; over 1 to 2 minutes Route: IVP; Site: left kd3 antecubital; 22:54 Drug: Dicyclomine IM 20 mg IM once Route: IM; Site: right deltoid; ay 23:33 Follow up: Response: No adverse reaction ay Medication: 22:03 VIS not applicable for this client. tm6 Outcome: 01/27 00:57 Discharge ordered by . sp4 01:11 Discharged to home ambulatory, kd3 01:11 Condition: stable 01:11 Discharge instructions given to patient, family, Instructed on discharge instructions, follow up and referral plans. Demonstrated understanding of instructions, follow-up care, 01:12 Patient left the ED. kd3 Signatures: Kira Murillo Reg Reg mr Doucette, Kyli, RN RN kd3 Mario Santo MD MD sp4 Rosemarie Gibbs RN RN tm6 Dixie Monterroso RN RN ay
[2024-01-28 01:23] VITALS: TEMP 97.9
[2024-01-28 01:27] VITALS: BP 117/87; O2SAT 98
== END 2024-01-28 01:12 | disposition home or self-care (01) ==
LOC: ER 20:48
DX: K52.9 Noninfective gastroenteritis and colitis, unspecified (principal); R11.2 Nausea with vomiting, unspecified; R79.89 Other specified abnormal findings of blood chemistry; K31.84 Gastroparesis; G58.9 Mononeuropathy, unspecified; G62.9 Polyneuropathy, unspecified; K58.9 Irritable bowel syndrome, unspecified; F41.9 Anxiety disorder, unspecified; Z88.8 Allergy status to other drugs, medicaments and biological substances
CPT/HCPCS: 96365; 85025; 36415; 83690; 80053; 96375; 96372; 99284; 96366; J2550; J2765; J0500; J2270; J1720; J2405; J7030

== ENCOUNTER 2024-02-10 11:03 | Emergency (ER) | payer BC ==
[2024-02-10] MEDS ORDERED: ONDANSETRON 4 MG/2 ML VIAL ONE (11:26)
[2024-02-10] MEDS ORDERED: METOCLOPRAMIDE 10 MG/2mL INJ ONE (11:26)
[2024-02-10] MEDS ORDERED: FAMOTIDINE 20 MG/2 ML VIAL IV ONE (11:26)
[2024-02-10] MEDS ORDERED: NA CHLORIDE 0.9% 1,000 ML ONE (11:26)
[2024-02-10 11:55] LABS: Absolute Lymphocytes (CBC) 0.8 K/uL (0.7-4.9); Absolute Monocytes 0.4 K/uL (0.1-1.3); Absolute Neutrophil 6.9 K/uL (1.8-8.0); Basophils % 0.6 % (0-1.3); Eosinophils % 0.1 % (0-4.4); Hematocrit 41.5 % (36.0-45.0); Hemoglobin 13.6 g/dL (12.0-15.0); Lymphocytes % 9.4 % (15.3-44.8); MCHC 32.7 g/dL (32.0-36.0); MCV 82.6 fL (80-100); MPV 9.5 fL (7.6-11.3); Monocytes % 5.3 % (3.3-12.3); Neutrophils % 84.6 % (41.7-73.7); Platelets 262 thou/uL (152-406); RBC Red Blood Cell Count 5.03 M/uL (3.86-4.86); Red Cell Distribution Width 16.5 % (12.1-15.2)
[2024-02-10 11:56] LABS: Specific Gravity 1.022 (1.005-1.030)
[2024-02-10 12:01] LABS: Specific Gravity 1.022 (1.005-1.030); Sqamous Epithelial <5 /HPF (None Seen); Urine Bacteria 20-50 /HPF (<20); Urine Bilirubin NEGATIVE (Negative); Urine Blood 3+ (Negative); Urine Clarity Extremely Turbid (Clear); Urine Color Light-Orange (Yellow); Urine Culture Reflex Order NOT NEEDED; Urine Glucose NEGATIVE (Negative); Urine Ketones NEGATIVE (Negative); Urine Microscopic Reflex YN ORDER UMIC; Urine Mucus Slight /HPF (None Seen); Urine Nitrite NEGATIVE (Negative); Urine Protein 1+ (Negative); Urine RBC >50 /HPF (None Seen); Urine Urobilinogen Normal (Normal); Urine WBC <5 /HPF (<5)
[2024-02-10 12:10] LABS: Barbiturates NEGATIVE (NEGATIVE); Benzodiazepines POSITIVE (NEGATIVE); Cocaine NEGATIVE (NEGATIVE); METHAMPHETAM NEGATIVE (NEGATIVE); Methadone NEGATIVE (NEGATIVE); Opiates NEGATIVE (NEGATIVE); Phencyclidine NEGATIVE (NEGATIVE); THC Cannibis POSITIVE (NEGATIVE)
[2024-02-10 12:11] LABS: Anion Gap 12.6 mEq/L (5.0-15.0); Bilirubin Total 0.6 mg/dL (0.2-1.0); Globulin 3.9 g/dL (2.3-3.5); Potassium 3.6 mEq/L (3.5-5.1); Protein, Total 7.9 g/dL (6.4-8.2)
[2024-02-10] MEDS ORDERED: DIPHENHYDRAMINE 50 MG/ML VIAL ONE (12:34)
--- NOTE | 2024-02-10 13:47 | EDPHYS ---
Physician Documentation [facility] Name: Efrem Pastor Age: 33 yrs Sex: Female : 1990 Arrival Date: 02/10/2024 Time: 11:03 Bed 5 Private MD: ED Physician Edvin Vee HPI: 02/09 11:14 This 33 yrs old Female presents to ER via EMS with complaints of Nausea/Vomiting, bo1 Abdominal Pain. 11:14 The patient presents to the emergency department with nausea, vomiting, diarrhea, bo1 abdominal pain. Onset: The symptoms/episode began/occurred suddenly, this morning, at 07:00. Possible causes: bad food exposure, "chicken". No blood in the vomitus or diarrhea. No recent travel or known ill contacts. Pt denies any drug use or ETOH. Historical: - Allergies: 11:14 Haldol; tm6 11:14 Scopolamine HBr; tm6 - PMHx: 11:14 Acute cutaneous nerve entrapment syndrome; ACNE (Unknown); Anxiety; Gastroparesis; tm6 Irritable bowel syndrome; neuropathy; PTSD; - PSHx: 11:14 bilateral ureter attachment; Cholecystectomy; leep procedure; Lumpectomy of breast; tm6 right breast; - Immunization history:: Flu vaccine is up to date. - Infectious Disease History:: Denies. - Social history:: Smoking status: Reported history of juuling and/or vaping. ROS: 13:39 Constitutional: Negative for fever, chills, and weight loss bo1 13:39 Constitutional: Positive for malaise, 13:39 Cardiovascular: Negative for chest pain, palpitations, 13:39 Respiratory: Negative for cough, shortness of breath, 13:39 Abdomen/GI: Positive for abdominal pain, nausea and vomiting, 13:39 Back: Negative for pain at rest, pain with movement, 13:39 : Negative for urinary symptoms, vaginal bleeding, 13:39 Skin: Negative for rash, 13:39 Psych: Negative for drug dependence, alcohol dependence, 13:39 All other systems are negative, Exam: 13:43 Constitutional: This is a well developed, well nourished patient who is awake, alert, bo1 and in moderate acute distress. 13:43 Constitutional: The patient appears alert, awake, in obvious distress, moderately distressed, From nausea/vomiting/abd pain. 13:43 Neck: External neck: is normal, no acute changes, 13:43 Cardiovascular: Rate: tachycardic, Rhythm: regular, Pulses: no pulse deficits are appreciated, 13:43 Respiratory: the patient does not display signs of respiratory distress, Respirations: normal, no acute changes, Breath sounds: are clear throughout, 13:43 Skin: no rash present. 13:43 Psych: Behavior/mood is cooperative, Affect is calm, Vital Signs: 11:10 BP 156 / 114; Pulse 92; Resp 19; Temp 97.8(TE); Pulse Ox 98% on R/A; MAP 127 mmHg; tm6 Weight 65.77 kg; Height 5 ft. 2 in. ; Pain 9/10; 12:46 BP 140 / 100; Pulse 90; Resp 19; Pulse Ox 99% on R/A; MAP 113 mmHg; Pain 8/10; tm6 13:42 BP 138 / 109; Pulse 107; Pulse Ox 100% on R/A; MAP 120 mmHg; tm6 14:12 BP 140 / 101; Pulse 95; Resp 16; Temp 97.8; Pulse Ox 100% on R/A; Pain 9/10; tm6 11:10 Body Mass Index 26.52 (65.77 kg, 157.48 cm) tm6 11:10 Pain Scale: Adult tm6 12:46 Pain Scale: Adult tm6 14:12 Pain Scale: Adult tm6 MDM: 11:09 Medical Screening Exam initiated bo1 13:41 Differential diagnosis: Nonspecific abd pain, gastroenteritis, Exacerbation of bo1 gastroparesis, THC induced cyclic vomiting syndrome. Data reviewed: vital signs, lab test result(s). Response to treatment: the patient's symptoms have mildly improved after treatment. ED course: Pt has been advised of the UDS results. She now claims no use of THC for the past month. 02/09 11:17 Order name: CBC with Diff; Complete Time: 12:21 02/09 11:17 Order name: CMP; Complete Time: 12:21 02/09 11:17 Order name: Lipase; Complete Time: 12:21 02/09 11:17 Order name: Test, Urine; Complete Time: 12:21 02/09 11:17 Order name: Urinalysis w/ reflexes; Complete Time: 12:21 02/09 11:17 Order name: UDS; Complete Time: 12:21 bo1 02/09 11:17 Order name: IV Saline Lock; Complete Time: 11: bo1 02/09 11:17 Order name: Labs collected and sent; Complete Time: 11:49 bo1 Administered Medications: 11:50 Drug: Famotidine IVP 20 mg IVP once; dilute with 10 mL 0.9% NaCl; give over 2 minutes tm6 Route: IVP; Site: right antecubital; 12:45 Follow up: Response: No adverse reaction; Nausea unchanged tm6 11:50 Drug: Ondansetron IVP 4 mg IVP once; over 2 minutes Route: IVP; Site: right antecubital;tm6 12:45 Follow up: Response: No adverse reaction; Nausea unchanged tm6 11:50 Drug: NS 0.9% IV 1000 ml IV at 1 bolus Per protocol; to be given as a bolus over 60 tm6 minutes Route: IV; Rate: 1 bolus; Site: right antecubital; 12:46 Follow up: Response: No adverse reaction; IV Status: Completed infusion; IV Intake: tm6 1000ml 11:50 Drug: metoCLOPramide IVP 10 mg IVP once; over 1 to 2 minutes Route: IVP; Site: right tm6 antecubital; 12:45 Follow up: Response: No adverse reaction; Nausea unchanged tm6 12:45 Drug: diphenhydrAMINE IVP 50 mg IVP once Route: IVP; Site: right antecubital; tm6 13:46 Follow up: Response: No adverse reaction tm6 14:12 Drug: fentaNYL (PF) IVP 100 mcg IVP once Route: IVP; Site: right antecubital; tm6 14:13 Follow up: Response: No adverse reaction tm6 14:13 Follow up: Response: Medication administered at discharge. tm6 Disposition Summary: 02/10/24 13:47 Discharge Ordered Notes: Location: Home bo1 Problem: chronic bo1 Symptoms: have improved bo1 Condition: Stable bo1 Diagnosis - Cannabis abuse bo1 - Nausea with vomiting, unspecified bo1 - Cyclical vomiting, intractable bo1 - Abdominal pain, Generalized bo1 Followup: bo1 - With: Private Physician - When: Upon discharge from the Emergency Department - Reason: Recheck today's complaints, Continuance of care Discharge Instructions: - Discharge Summary Sheet bo1 - Nausea and Vomiting, Adult bo1 - Cannabinoid Hyperemesis Syndrome bo1 Forms: - Medication Reconciliation Form bo1 - Antibiotic Education bo1 - Prescription Opioid Use bo1 - Patient Portal Instructions bo1 - Leadership Thank You Letter bo1 Prescriptions: - metoclopramide HCl 10 mg Oral tablet - take 1 tablet ORAL route 4 times per day for 10 days; 40 tablet; Refills: 0, bo1 Product Selection Permitted - ondansetron 8 mg Oral Tablet,disintegrating - take 1 tablet ORAL route every 8 hours; 20 tablet; Refills: 0, Product bo1 Selection Permitted Signatures: Dispatcher [employer] EDMS Rosemarie Gibbs RN RN tm6 OeiEdvin MD MD bo1 Corrections: (The following items were deleted from the chart) 11:18 11:17 CBC+H.LAB.BRZ ordered. EDMS EDMS 11:18 11:17 COMPREHENSIVE METABOLIC PANEL+C.LAB.BRZ ordered. EDMS EDMS 11:18 11:18 LIPASE+C.LAB.BRZ ordered. EDMS EDMS 11:18 11:18 Test, Urine+UC.LAB.BRZ ordered. EDMS EDMS 11:18 11:18 Urinalysis+U.LAB.BRZ ordered. EDMS EDMS 11:18 11:18 URINE DRUG SCREEN+UC.LAB.BRZ ordered. EDMS EDMS
--- NOTE | 2024-02-10 13:47 | ER ---
Nurse's Notes [facility] Name: Efrem Pastor Age: 33 yrs Sex: Female : 1990 Arrival Date: 02/10/2024 Time: 11:03 Bed 5 Private MD: Diagnosis: Cannabis abuse;Nausea with vomiting, unspecified;Cyclical vomiting, intractable;Abdominal pain, Generalized Presentation: 02/09 11:10 Chief complaint: EMS states: n/v, abdominal pain starting around 0700 today. Patient tm6 has history of gastroparesis, but also concerned she got food poisoning last night. 4mg zofran, 12.5mg of promethazine, and 15mg toradol IV given. Coronavirus screen: Client denies travel out of the [place] in the last 14 days. Ebola Screen: Patient negative for fever greater than or equal to 101.5 degrees Fahrenheit, and additional compatible Ebola Virus Disease symptoms Patient denies exposure to infectious person. Patient denies travel to an Ebola-affected area in the 21 days before illness onset. No symptoms or risks identified at this time. Initial Sepsis Screen: Does the patient meet any 2 criteria? No. Patient's initial sepsis screen is negative. Does the patient have a suspected source of infection? No. Patient's initial sepsis screen is negative. Risk Assessment: Do you want to hurt yourself or someone else? Patient reports no desire to harm self or others. Onset of symptoms was February 10, 2024 at 07:00. Care prior to arrival: Medication(s) given: Phenergan, 12.5 mg, zofran 4 mg, toradol 15mg. 11:10 Method Of Arrival: EMS: [facility] tm6 11:10 Acuity: BELINDA 3 tm6 Triage Assessment: 11:14 General: Appears uncomfortable, ill, Behavior is cooperative. Pain: Complains of pain tm6 in abdomen Pain currently is 9 out of 10 on a pain scale. EENT: No signs and/or symptoms were reported regarding the EENT system. Neuro: Level of Consciousness is awake, alert, obeys commands, Oriented to person, place, time, situation. Cardiovascular: Patient's skin is warm and dry. Respiratory: Airway is patent Respiratory effort is even, unlabored, Respiratory pattern is regular, symmetrical. GI: Abdomen is flat, non-distended, Reports lower abdominal pain, upper abdominal pain, nausea, Pain is 9 out of 10 on a pain scale. vomiting. : No signs and/or symptoms were reported regarding the genitourinary system. Derm: No signs and/or symptoms reported regarding the dermatologic system. Musculoskeletal: No signs and/or symptoms reported regarding the musculoskeletal system. Historical: - Allergies: 11:14 Haldol; tm6 11:14 Scopolamine HBr; tm6 - PMHx: 11:14 Acute cutaneous nerve entrapment syndrome; ACNE (Unknown); Anxiety; Gastroparesis; tm6 Irritable bowel syndrome; neuropathy; PTSD; - PSHx: 11:14 bilateral ureter attachment; Cholecystectomy; leep procedure; Lumpectomy of breast; tm6 right breast; - Immunization history:: Flu vaccine is up to date. - Infectious Disease History:: Denies. - Social history:: Smoking status: Reported history of juuling and/or vaping. Screenin:15 [facility] ED Fall Risk Assessment (Adult) History of falling in the last 3 months, tm6 including since admission No falls in past 3 months (0 pts) Confusion or Disorientation No (0 pts) Intoxicated or Sedated No (0 pts) Impaired Gait No (0 pts) Mobility Assist Device Used No (0 pt) Altered Elimination No (0 pt) Score/Fall Risk Level 0 - 2 = Low Risk Oriented to surroundings, Maintained a safe environment, Educated pt \T\ family on fall prevention, incl call for assistance when getting out of bed. Abuse screen: Denies threats or abuse. Denies injuries from another. Nutritional screening: No deficits noted. Tuberculosis screening: No symptoms or risk factors identified. Assessment: 11:15 Reassessment: see triage assessment. GI: Abdomen is flat, non-distended, Reports lower tm6 abdominal pain, upper abdominal pain, nausea, Pain is 9 out of 10 on a pain scale. vomiting. 12:46 Reassessment: Patient and/or family updated on plan of care and expected duration. Pain tm6 level reassessed. Patient is alert, oriented x 3, equal unlabored respirations, skin warm/dry/pink. 14:12 Reassessment: [employer] cdl driver picked up patient. tm6 Vital Signs: 11:10 BP 156 / 114; Pulse 92; Resp 19; Temp 97.8(TE); Pulse Ox 98% on R/A; MAP 127 mmHg; tm6 Weight 65.77 kg; Height 5 ft. 2 in. ; Pain 9/10; 12:46 BP 140 / 100; Pulse 90; Resp 19; Pulse Ox 99% on R/A; MAP 113 mmHg; Pain 8/10; tm6 13:42 BP 138 / 109; Pulse 107; Pulse Ox 100% on R/A; MAP 120 mmHg; tm6 14:12 BP 140 / 101; Pulse 95; Resp 16; Temp 97.8; Pulse Ox 100% on R/A; Pain 9/10; tm6 11:10 Body Mass Index 26.52 (65.77 kg, 157.48 cm) tm6 11:10 Pain Scale: Adult tm6 12:46 Pain Scale: Adult tm6 14:12 Pain Scale: Adult tm6 ED Course: 11:08 Patient arrived in ED. tm6 11:09 Edvin Vee MD is Attending Physician. bo1 11:14 Triage completed. tm6 11:14 Arm band placed on right wrist. tm6 11:15 Patient has correct armband on for positive identification. Bed in low position. Call tm6 light in reach. Side rails up X2. Provided Education on: use of call bond. Client placed on continuous cardiac and pulse oximetry monitoring. NIBP monitoring applied. Pulse ox on. NIBP on. Door closed. Noise minimized. Warm blanket given. Pillow given. 11:15 No provider procedures requiring assistance completed. Maintain EMS IV. Dressing tm6 intact. Good blood return noted. Site clean \T\ dry. Gauge \T\ site: 22g L hand. Flushed with 10 mL NS. 11:18 Rosemarie Gibbs, RN is Primary Nurse. tm6 11:49 Urinalysis w/ reflexes Sent. tm6 11:49 Test, Urine Sent. tm6 11:49 Lipase Sent. tm6 11:49 CMP Sent. tm6 11:49 CBC with Diff Sent. tm6 11:49 UDS Sent. tm6 11:49 Inserted saline lock: 22 gauge in right antecubital area, using aseptic technique. ty Blood collected. Flushed with 10 mL NS. 14:14 IV discontinued, intact, bleeding controlled, No redness/swelling at site. Pressure tm6 dressing applied. 14:14 IV discontinued, intact, bleeding controlled, No redness/swelling at site. Pressure tm6 dressing applied. Administered Medications: 11:50 Drug: Famotidine IVP 20 mg IVP once; dilute with 10 mL 0.9% NaCl; give over 2 minutes tm6 Route: IVP; Site: right antecubital; 12:45 Follow up: Response: No adverse reaction; Nausea unchanged tm6 11:50 Drug: Ondansetron IVP 4 mg IVP once; over 2 minutes Route: IVP; Site: right antecubital;tm6 12:45 Follow up: Response: No adverse reaction; Nausea unchanged tm6 11:50 Drug: NS 0.9% IV 1000 ml IV at 1 bolus Per protocol; to be given as a bolus over 60 tm6 minutes Route: IV; Rate: 1 bolus; Site: right antecubital; 12:46 Follow up: Response: No adverse reaction; IV Status: Completed infusion; IV Intake: tm6 1000ml 11:50 Drug: metoCLOPramide IVP 10 mg IVP once; over 1 to 2 minutes Route: IVP; Site: right tm6 antecubital; 12:45 Follow up: Response: No adverse reaction; Nausea unchanged tm6 12:45 Drug: diphenhydrAMINE IVP 50 mg IVP once Route: IVP; Site: right antecubital; tm6 13:46 Follow up: Response: No adverse reaction tm6 14:12 Drug: fentaNYL (PF) IVP 100 mcg IVP once Route: IVP; Site: right antecubital; tm6 14:13 Follow up: Response: No adverse reaction tm6 14:13 Follow up: Response: Medication administered at discharge. tm6 Medication: 11:15 VIS not applicable for this client. tm6 Intake: 12:46 IV: 1000ml; Total: 1000ml. tm6 Outcome: 13:47 Discharge ordered by . bo1 14:14 Discharged to home ambulatory, tm6 14:14 Condition: stable 14:14 Discharge instructions given to patient, Instructed on discharge instructions, follow up and referral plans. medication usage, Demonstrated understanding of instructions, follow-up care, medications, Prescriptions given X 2, 14:14 Patient left the ED. tm6 Signatures: Rosemarie Gibbs RN RN tm6 David Becker Benjamin, MD MD bo1
[2024-02-10] MEDS ORDERED: FENTANYL CITR 100 MCG/2 ML ONE (13:53)
[2024-02-10 15:06] VITALS: TEMP 97.8
[2024-02-10 15:09] VITALS: O2SAT 100
[2024-02-10 15:11] VITALS: BP 140/101
== END 2024-02-10 14:14 | disposition home or self-care (01) ==
LOC: ER 11:03
DX: F12.10 Cannabis abuse, uncomplicated (principal); R10.84 Generalized abdominal pain; R11.15 Cyclical vomiting syndrome unrelated to migraine
CPT/HCPCS: 96361; 85025; 81001; 36415; 81025; 83690; 80053; 80307; 96375; 96374; 99284; J2765; J1200; J3010; J2405; J7030

== ENCOUNTER 2024-03-07 18:11 | Emergency (ER) | payer BC ==
[2024-03-07 20:07] LABS: Absolute Lymphocytes (CBC) 0.6 K/uL (0.7-4.9); Absolute Monocytes 0.3 K/uL (0.1-1.3); Absolute Neutrophil 9.8 K/uL (1.8-8.0); Basophils % 0.4 % (0-1.3); Hematocrit 41.6 % (36.0-45.0); Hemoglobin 13.5 g/dL (12.0-15.0); Lymphocytes % 5.4 % (15.3-44.8); MCH 27.1 pg (27.0-35.0); MCHC 32.5 g/dL (32.0-36.0); MCV 83.5 fL (80-100); MPV 10.1 fL (7.6-11.3); Monocytes % 2.5 % (3.3-12.3); Neutrophils % 91.7 % (41.7-73.7); Platelets 256 thou/uL (152-406); RBC Red Blood Cell Count 4.98 M/uL (3.86-4.86); Red Cell Distribution Width 16.7 % (12.1-15.2)
[2024-03-07 20:12] LABS: SARS-CoV-2 Antigen CONTROL BLUE LINE VIS/BG OK; SARS-CoV-2 Antigen Rapid Res Negative (Negative)
[2024-03-07 20:17] LABS: Albumin 3.7 g/dL (3.4-5.0); Anion Gap 11.9 mEq/L (5.0-15.0); Globulin 3.6 g/dL (2.3-3.5); Magnesium 1.7 mg/dL (1.6-2.4); Potassium 3.9 mEq/L (3.5-5.1); Protein, Total 7.3 g/dL (6.4-8.2)
[2024-03-07] MEDS ORDERED: DIPHENHYDRAMINE 50 MG/ML VIAL ONE (20:32)
[2024-03-07] MEDS ORDERED: METOCLOPRAMIDE 10 MG/2mL INJ ONE (20:32)
[2024-03-07] MEDS ORDERED: KETOROLAC 30 MG/ML INJ ONE (20:32)
[2024-03-07] MEDS ORDERED: Ringers Lactate 1,000 ML IV ONE (20:33)
[2024-03-07 21:40] LABS: Blood Morphology Comment NOT SEEN (NOT SEEN); Platelet Estimate ADEQ; White Blood Cell Scan OK (OK)
[2024-03-07] MEDS ORDERED: PROMETHAZINE INJ 25 MG/ML AMP ONE (22:24)
[2024-03-07] MEDS ORDERED: ONDANSETRON 4 MG/2 ML VIAL ONE (22:24)
[2024-03-07] MEDS ORDERED: NA CHLORIDE 0.9% 500 ML ONE (22:25)
--- NOTE | 2024-03-07 23:27 | EDPHYS ---
Physician Documentation [facility] Name: Efrem Pastor Age: 33 yrs Sex: Female : 1990 Arrival Date: 03/07/2024 Time: 18:11 Bed 24 Private MD: ED Physician Billy Juarez HPI: 03/07 19:00 This 33 yrs old Female presents to ER via EMS with complaints of Nausea/Vomiting. cp 19:00 The patient presents to the emergency department with nausea, with "dry heaves", cp vomiting, that is continuous, abdominal pain. Onset: The symptoms/episode began/occurred today. Possible causes: flare up of bowel problem, gastroparesis. Associated signs and symptoms: Pertinent negatives: constipation, diarrhea, fever, GI bleeding. Severity of symptoms: in the emergency department the symptoms are unchanged despite EMS interventions. Historical: - Allergies: 18:46 Haldol; jb4 18:46 Scopolamine HBr; jb4 - PMHx: 18:46 Acute cutaneous nerve entrapment syndrome; ACNE (Unknown); Anxiety; Gastroparesis; jb4 Irritable bowel syndrome; neuropathy; PTSD; - PSHx: 18:46 Cholecystectomy; bilateral ureter attachment; Lumpectomy of breast; right breast; leep jb4 procedure; - Immunization history:: Adult Immunizations up to date. - Infectious Disease History:: Denies. - Social history:: Smoking status: Patient denies any tobacco usage or history of. ROS: 19:05 Constitutional: Negative for fever, cp 19:05 Eyes: Negative for injury, pain, redness, and discharge, cp 19:05 ENT: Negative for drainage from ear(s), ear pain, sore throat, difficulty swallowing, difficulty handling secretions, 19:05 Cardiovascular: Negative for chest pain, 19:05 Respiratory: Negative for cough, shortness of breath, wheezing, 19:05 Abdomen/GI: Positive for abdominal pain, nausea and vomiting, Negative for diarrhea, constipation, hematemesis, black/tarry stool, rectal bleeding, 19:05 Neuro: Negative for altered mental status, syncope, 19:05 All other systems are negative, Exam: 19:10 Constitutional: The patient appears in no acute distress, alert, awake, non-toxic, well cp developed, well nourished, uncomfortable, 19:10 Head/Face: Normocephalic, atraumatic. cp 19:10 Eyes: Periorbital structures: appear normal, Conjunctiva: normal, no exudate, no injection, Sclera: no appreciated abnormality, Lids and lashes: appear normal, bilaterally, 19:10 ENT: External ear(s): are unremarkable, Nose: is normal, Mouth: Lips: moist, Oral mucosa: moist, Posterior pharynx: Airway: no evidence of obstruction, patent, 19:10 Chest/axilla: Inspection: normal, 19:10 Cardiovascular: Rate: tachycardic, Rhythm: regular, 19:10 Respiratory: the patient does not display signs of respiratory distress, Respirations: normal, no use of accessory muscles, no retractions, labored breathing, is not present, Breath sounds: are clear throughout, no decreased breath sounds, no stridor, no wheezing, 19:10 Abdomen/GI: Inspection: abdomen appears normal, Bowel sounds: active, all quadrants, Palpation: soft, in all quadrants, moderate abdominal tenderness, in all quadrants, rebound tenderness, is not appreciated, involuntary guarding, is not appreciated, 19:10 Back: CVA tenderness, is absent, 19:10 Neuro: Orientation: to person, place \\T\\ time. Mentation: is normal, Motor: moves all fours, strength is normal, Sensation: is normal, Vital Signs: 18:44 BP 144 / 105; Pulse 101; Resp 16; Temp 98.3(O); Pulse Ox 96% on R/A; Weight 68.04 kg jb4 (R); Height 5 ft. 2 in. (R); Pain 9/10; 20:00 BP 142 / 119; Pulse 101; Resp 16; Pulse Ox 100% on R/A; jb4 21:30 BP 143 / 105; Pulse 98; Resp 16; Pulse Ox 100% on R/A; jb4 22:30 BP 137 / 100; Pulse 100; Resp 16; Pulse Ox 98% ; jb4 23:30 BP 117 / 84; Pulse 106; Resp 16; Pulse Ox 94% on R/A; jb4 18:44 Body Mass Index 27.44 (68.04 kg, 157.48 cm) jb4 18:44 Pain Scale: Adult jb4 MDM: 18:40 Medical Screening Exam initiated cp 20:00 Differential diagnosis: gastritis, viral gastroenteritis, gastroenteritis, dehydration, cp illegal drug use, electrolyte abnormality. 23:25 Data reviewed: vital signs, nurses notes, lab test result(s), and as a result, I will cp discharge patient. 23:26 I considered the following discharge prescriptions or medication management in the emergency department Medications were administered in the Emergency Department. See MAR. 23:26 Counseling: I had a detailed discussion with the patient and/or guardian regarding the historical points, exam findings, and any diagnostic results supporting the discharge/admit diagnosis, lab results, to return to the emergency department if symptoms worsen or persist or if there are any questions or concerns that arise at home. Response to treatment: the patient's symptoms have markedly improved after treatment, and as a result, I will discharge patient. Special discussion: Based on the patient's Hx, exam, and Dx evaluation, there is no indication for emergent surgery or inpatient Tx. It is understood by the patient/guardian that if the Sx's persist or worsen they need to return immediately for re-evaluation. 03/07 18:48 Order name: CBC with Diff; Complete Time: 22:00 03/07 21:30 Interpretation: Normal except: RBC 4.98; RDW 16.7; KIMBERLY% 91.7; LYM% 5.4; MN% 2.5; NEUT A cp 9.8; LYMA 0.6. 03/07 18:48 Order name: CMP; Complete Time: 21:29 03/07 21:30 Interpretation: Normal except: CL 109; GLUC 125; ALK 119; GLOB 3.6; A/G 1.0. 03/07 18:48 Order name: Lipase; Complete Time: 21:29 03/07 18:48 Order name: SARS RAPID; Complete Time: 21:29 03/07 18:48 Order name: Influenza Screen (a \\T\\ B); Complete Time: 21:29 03/07 21:30 Interpretation: Reviewed. 03/07 18:48 Order name: Magnesium; Complete Time: 21:29 03/07 21:40 Order name: CBC Smear Scan; Complete Time: 22:00 EDMS 03/07 18:48 Order name: IV Saline Lock; Complete Time: 19:30 03/07 18:48 Order name: Labs collected and sent; Complete Time: 20:27 01/27 22:00 Order name: PO challenge; Complete Time: 22:47 cp Administered Medications: 20:46 Drug: metoCLOPramide IVP 10 mg IVP once; over 1 to 2 minutes Route: IVP; Site: right 4 antecubital; 21:51 Follow up: Response: No adverse reaction; Marked relief of symptoms jb4 20:46 Drug: Ringers - Lactated Ringers Solution IV 1000 ml IV at 1000 ml/hr bolus; to be jb4 given as a bolus over 60 minutes Route: IV; Rate: 1000 ml/hr; Site: right antecubital; 21:46 Follow up: Response: No adverse reaction; IV Status: Completed infusion; IV Intake: jb4 1000ml 20:46 Drug: diphenhydrAMINE IVP 25 mg IVP once Route: IVP; Site: right antecubital; jb4 21:51 Follow up: Response: No adverse reaction; Marked relief of symptoms jb4 20:46 Drug: Ketorolac IVP 15 mg IVP once Route: IVP; Site: right antecubital; jb4 21:51 Follow up: Response: No adverse reaction; Marked relief of symptoms jb4 22:37 Drug: Promethazine IVP 25 mg IVP once {Note: administered in IV fluids per providers jb4 instructions. .} Route: IVP; Site: right antecubital; 23:48 Follow up: Response: No adverse reaction; Marked relief of symptoms jb4 22:37 Drug: NS 0.9% IV 500 ml 500 ml IV at 1 bolus once; to be given as a bolus over 30 jb4 minutes Volume: 500 ml; Route: IV; Rate: 1 bolus; Site: right antecubital; 23:48 Follow up: Response: No adverse reaction; Marked relief of symptoms; IV Status: jb4 Completed infusion 22:38 Drug: Ondansetron IVP 2 mg IVP once; over 2 minutes Route: IVP; Site: right antecubital;jb4 23:48 Follow up: Response: No adverse reaction; Marked relief of symptoms jb4 Disposition Summary: 03/07/24 23:26 Discharge Ordered Notes: Location: Home cp Problem: an ongoing problem cp Symptoms: have improved cp Condition: Stable cp Diagnosis - Nausea with vomiting, unspecified cp Followup: cp - With: Emergency Department - When: As needed - Reason: Worsening of condition Discharge Instructions: - Discharge Summary Sheet cp - Nausea and Vomiting, Adult cp Forms: - Medication Reconciliation Form cp - Antibiotic Education cp - Prescription Opioid Use cp - Patient Portal Instructions cp - Leadership Thank You Letter cp Prescriptions: - promethazine 25 mg Rectal suppository - insert 1 suppository RECTAL route every 6 hours as needed for nausea and cp vomiting; 20 suppository; Refills: 0, Product Selection Permitted - ondansetron 8 mg Oral Tablet,disintegrating - take 1 tablet ORAL route every 12 hours; 20 tablet; Refills: 0, Product cp Selection Permitted Signatures: Dispatcher [employer] EDNY Billy Kilpatrick PA PA cp Ulises Gilbert, RN RN jb4
--- NOTE | 2024-03-07 23:27 | ER ---
Nurse's Notes [facility] Name: Efrem Pastor Age: 33 yrs Sex: Female : 1990 Arrival Date: 03/07/2024 Time: 18:11 Bed 24 Private MD: Diagnosis: Nausea with vomiting, unspecified Presentation: 03/07 18:44 Chief complaint: EMS states: Pt reports N/V and ABD pain since 9am. Has a history of jb4 Gastroparesis. Was given 4mg of Zofran via 20g to the RAC. Appears to have slowed the N/V. Coronavirus screen: At this time, the client does not indicate any symptoms associated with coronavirus-19. Ebola Screen: No symptoms or risks identified at this time. Initial Sepsis Screen: Does the patient meet any 2 criteria? HR > 90 bpm. Yes Does the patient have a suspected source of infection? No. Patient's initial sepsis screen is negative. Risk Assessment: Do you want to hurt yourself or someone else? Patient reports no desire to harm self or others. Onset of symptoms was March 07, 2024. Transition of care: patient was not received from another setting of care. 18:44 Method Of Arrival: EMS: [facility] jb4 18:44 Acuity: BELINDA 3 jb4 Historical: - Allergies: 18:46 Haldol; jb4 18:46 Scopolamine HBr; jb4 - PMHx: 18:46 Acute cutaneous nerve entrapment syndrome; ACNE (Unknown); Anxiety; Gastroparesis; jb4 Irritable bowel syndrome; neuropathy; PTSD; - PSHx: 18:46 Cholecystectomy; bilateral ureter attachment; Lumpectomy of breast; right breast; leep jb4 procedure; - Immunization history:: Adult Immunizations up to date. - Infectious Disease History:: Denies. - Social history:: Smoking status: Patient denies any tobacco usage or history of. Screenin:49 [facility] ED Fall Risk Assessment (Adult) History of falling in the last 3 months, jb4 including since admission No falls in past 3 months (0 pts) Confusion or Disorientation No (0 pts) Intoxicated or Sedated No (0 pts) Impaired Gait No (0 pts) Mobility Assist Device Used No (0 pt) Altered Elimination No (0 pt) Score/Fall Risk Level 0 - 2 = Low Risk Oriented to surroundings, Maintained a safe environment. Abuse screen: Denies threats or abuse. Nutritional screening: No deficits noted. Tuberculosis screening: No symptoms or risk factors identified. Assessment: 18:45 General: Appears in no apparent distress. comfortable, Behavior is calm, cooperative, jb4 appropriate for age. Pain: Complains of pain in abdomen Pain does not radiate. Pain currently is 9 out of 10 on a pain scale. Quality of pain is described as crampy, Pain began 0900. Neuro: Level of Consciousness is awake, alert, obeys commands, Oriented to person, place, time, situation. Cardiovascular: Patient's skin is warm and dry. Respiratory: Airway is patent Respiratory effort is even, unlabored, Respiratory pattern is regular, symmetrical. Derm: Skin is intact, Skin is pink, warm \T\ dry. Musculoskeletal: Circulation, motion, and sensation intact. Range of motion: intact in all extremities. 20:00 Reassessment: Patient appears in no apparent distress at this time. Patient and/or jb4 family updated on plan of care and expected duration. Pain level reassessed. Patient is alert, oriented x 3, equal unlabored respirations, skin warm/dry/pink. 21:46 Reassessment: Patient appears in no apparent distress at this time. Patient and/or jb4 family updated on plan of care and expected duration. Pain level reassessed. Patient is alert, oriented x 3, equal unlabored respirations, skin warm/dry/pink. 23:00 Reassessment: Patient appears in no apparent distress at this time. Patient and/or jb4 family updated on plan of care and expected duration. Pain level reassessed. Patient is alert, oriented x 3, equal unlabored respirations, skin warm/dry/pink. 23:47 Reassessment: Patient appears in no apparent distress at this time. Patient and/or jb4 family updated on plan of care and expected duration. Pain level reassessed. Patient is alert, oriented x 3, equal unlabored respirations, skin warm/dry/pink. Vital Signs: 18:44 BP 144 / 105; Pulse 101; Resp 16; Temp 98.3(O); Pulse Ox 96% on R/A; Weight 68.04 kg jb4 (R); Height 5 ft. 2 in. (R); Pain 9/10; 20:00 BP 142 / 119; Pulse 101; Resp 16; Pulse Ox 100% on R/A; jb4 21:30 BP 143 / 105; Pulse 98; Resp 16; Pulse Ox 100% on R/A; jb4 22:30 BP 137 / 100; Pulse 100; Resp 16; Pulse Ox 98% ; jb4 23:30 BP 117 / 84; Pulse 106; Resp 16; Pulse Ox 94% on R/A; jb4 18:44 Body Mass Index 27.44 (68.04 kg, 157.48 cm) jb4 18:44 Pain Scale: Adult jb4 ED Course: 18:34 Patient arrived in ED. jb4 18:40 Billy Kilpatrick PA is PHCP. cp 18:40 Billy Juarez MD is Attending Physician. cp 18:44 Ulises Gilbert, BRUCE is Primary Nurse. jb4 18:46 Triage completed. jb4 18:46 Arm band placed on right wrist. jb4 21:49 Patient has correct armband on for positive identification. Bed in low position. Call jb4 light in reach. Side rails up X 1. Provided Education on: plan of care. 21:49 No provider procedures requiring assistance completed. jb4 23:30 IV discontinued, intact, bleeding controlled, No redness/swelling at site. Pressure jb4 dressing applied. Administered Medications: 20:46 Drug: metoCLOPramide IVP 10 mg IVP once; over 1 to 2 minutes Route: IVP; Site: right jb4 antecubital; 21:51 Follow up: Response: No adverse reaction; Marked relief of symptoms jb4 20:46 Drug: Ringers - Lactated Ringers Solution IV 1000 ml IV at 1000 ml/hr bolus; to be jb4 given as a bolus over 60 minutes Route: IV; Rate: 1000 ml/hr; Site: right antecubital; 21:46 Follow up: Response: No adverse reaction; IV Status: Completed infusion; IV Intake: jb4 1000ml 20:46 Drug: diphenhydrAMINE IVP 25 mg IVP once Route: IVP; Site: right antecubital; jb4 21:51 Follow up: Response: No adverse reaction; Marked relief of symptoms jb4 20:46 Drug: Ketorolac IVP 15 mg IVP once Route: IVP; Site: right antecubital; jb4 21:51 Follow up: Response: No adverse reaction; Marked relief of symptoms jb4 22:37 Drug: Promethazine IVP 25 mg IVP once {Note: administered in IV fluids per providers jb4 instructions. .} Route: IVP; Site: right antecubital; 23:48 Follow up: Response: No adverse reaction; Marked relief of symptoms jb4 22:37 Drug: NS 0.9% IV 500 ml 500 ml IV at 1 bolus once; to be given as a bolus over 30 jb4 minutes Volume: 500 ml; Route: IV; Rate: 1 bolus; Site: right antecubital; 23:48 Follow up: Response: No adverse reaction; Marked relief of symptoms; IV Status: jb4 Completed infusion 22:38 Drug: Ondansetron IVP 2 mg IVP once; over 2 minutes Route: IVP; Site: right antecubital;jb4 23:48 Follow up: Response: No adverse reaction; Marked relief of symptoms jb4 Medication: 23:30 VIS not applicable for this client. jb4 Intake: 21:46 IV: 1000ml; Total: 1000ml. jb4 Outcome: 23:26 Discharge ordered by MD. young 23:30 Discharged to home ambulatory, with family, jb4 23:30 Condition: stable 23:30 Discharge instructions given to patient, Instructed on discharge instructions, follow up and referral plans. medication usage, Demonstrated understanding of instructions, follow-up care, medications, Prescriptions given X 2, 23:49 Patient left the ED. jb4 Signatures: Billy Kilpatrick PA PA cp Bryson, James, RN RN jb4 Corrections: (The following items were deleted from the chart) 23:48 22:37 Promethazine IVP 25 mg IVP in right antecubital jb4 jb4
[2024-03-08 08:11] VITALS: TEMP 98.3
[2024-03-08 08:16] VITALS: BP 117/84; O2SAT 94
== END 2024-03-07 23:49 | disposition home or self-care (01) ==
LOC: ER 18:11
DX: R11.2 Nausea with vomiting, unspecified (principal); Z11.52 Encounter for screening for COVID-19
CPT/HCPCS: 96365; 96361; 85025; 36415; 83735; 83690; 80053; 87804 ×2; 96375; 99284; 87811; J2550; J2765; J1200; J2405; J7120; J7040